=== PATIENT | female | born 1940 | race Caucasian/White ===

== ENCOUNTER 2018-01-29 10:49 | Emergency (ER) | payer OTHER ==
[2018-01-29] MEDS ORDERED: TETANUS & DIPHTHERIA TOX,ADULT 0.5 ML VIAL ONE (12:17)
--- NOTE | 2018-01-29 12:33 | EDPHYS ---
Physician Documentation [facility] Name: Deedee Smith Age: 77 yrs Sex: Female : 1940 Arrival Date: 01/29/2018 Time: 10:52 Bed 26 Private MD: ED Physician Marcos Jones HPI: 01/29 12:15 This 77 yrs old Female presents to ER via Ambulatory with complaints of LEG pm1 INFECTION. 12:15 The patient presents with cellulitis of the lateral aspect of left calf. Description: pm1 The affected area is small. Onset: The symptoms/episode began/occurred 3 day(s) ago. Possible cause(s): scratch from dog claw. Associated signs and symptoms: Pertinent negatives: discharge, drainage, fever. Modifying factors: the symptoms are alleviated by nothing, the symptoms are aggravated by nothing. Patient reports no change in condition of wound. Not worse but not better. Has been applying triple antibiotic. Historical: - Allergies: 11:32 No Known Allergies; lk1 - PMHx: 11:32 None; lk1 - PSHx: 11:32 Hysterectomy; Knee surgery; Cholecystectomy; lk1 - Immunization history:: Adult Immunizations up to date. - Social history:: Smoking status: Patient/guardian denies using tobacco. ROS: 12:15 Constitutional: Negative for fever, chills, and weight loss, Eyes: Negative for injury, pm1 pain, redness, and discharge, ENT: Negative for injury, pain, and discharge, Neck: Negative for injury, pain, and swelling, Cardiovascular: Negative for chest pain, palpitations, and edema, Respiratory: Negative for shortness of breath, cough, wheezing, and pleuritic chest pain, Abdomen/GI: Negative for abdominal pain, nausea, vomiting, diarrhea, and constipation, Back: Negative for injury and pain, MS/Extremity: Negative for injury and deformity. 12:15 Skin: Positive for cellulitis, of the lateral aspect of left calf. Exam: 12:15 Constitutional: This is a well developed, well nourished patient who is awake, alert, pm1 and in no acute distress. Head/Face: Normocephalic, atraumatic. Cardiovascular: Regular rate and rhythm with a normal S1 and S2. No gallops, murmurs, or rubs. Normal PMI, no JVD. No pulse deficits. Respiratory: Lungs have equal breath sounds bilaterally, clear to auscultation and percussion. No rales, rhonchi or wheezes noted. No increased work of breathing, no retractions or nasal flaring. Back: No spinal tenderness. No costovertebral tenderness. Full range of motion. 12:15 Skin: cellulitis, that is mild, on the lateral aspect of left calf, with small 2 mm ulceration. no drainage present. Vital Signs: 11:33 BP 113 / 81; Pulse 63; Resp 14; Temp 97.4(TE); Weight 86.18 kg (R); Height 5 ft. 5 in. lk1 (165.10 cm) (R); Pain 3/10; 11:33 Body Mass Index 31.62 (86.18 kg, 165.10 cm) lk1 MDM: 11:54 Patient medically screened. pm1 12:22 Data reviewed: vital signs. pm1 12:30 Counseling: I had a detailed discussion with the patient and/or guardian regarding: the pm1 historical points, exam findings, and any diagnostic results supporting the discharge/admit diagnosis, the need for outpatient follow up, to return to the emergency department if symptoms worsen or persist or if there are any questions or concerns that arise at home. Administered Medications: 12:26 Not Given (Patient had tetanus shot one year ago): Tetanus-Diphtheria Toxoid Adult 0.5 aj1 ml IM once Disposition: 01/30 06:17 Co-signature as Attending Physician, Marcos Jones MD. Disposition: 01/29/18 12:32 Discharged to Home. Impression: Cellulitis of left lower limb. - Condition is Stable. - Discharge Instructions: Cellulitis. - Prescriptions for Doxycycline Hyclate 100 mg Oral Tablet - take 1 tablet by ORAL route every 12 hours; 20 tablet. - Medication Reconciliation Form, Thank You Letter, Antibiotic Education form. - Follow up: Emergency Department; When: As needed; Reason: Worsening of condition. Follow up: Private Physician; When: 2 - 3 days; Reason: Recheck today's complaints, Continuance of care, Re-evaluation by your physician. - Problem is new. - Symptoms have improved. Signatures: Nunu Richter RN RN aa5 Maria Del Carmen Velez RN RN lk1 Kar Mario, TITI MANAGER LSW pm1 Marcos Jones MD MD gs Johnson, Angela RN aj1 Corrections: (The following items were deleted from the chart) 01/29 12:39 12:32 01/29/2018 12:32 Discharged to Home. Impression: Cellulitis of left lower limb. aa5 Condition is Stable. Forms are Medication Reconciliation Form, Thank You Letter, Antibiotic Education, Prescription Opioid Use. Follow up: Emergency Department; When: As needed; Reason: Worsening of condition. Follow up: Private Physician; When: 2 - 3 days; Reason: Recheck today's complaints, Continuance of care, Re-evaluation by your physician. Problem is new. Symptoms have improved. pm1
--- NOTE | 2018-01-29 12:33 | ER ---
Nurse's Notes [facility] Name: Deedee Smith Age: 77 yrs Sex: Female : 1940 Arrival Date: 01/29/2018 Time: 10:52 Bed 26 Private MD: Diagnosis: Cellulitis of left lower limb Presentation: 01/29 11:30 Presenting complaint: Patient states: I have a sore on my leg. I have been putting lk1 antibiotic ointment on it for several days, but it is getting worse. Transition of care: patient was not received from another setting of care. Onset of symptoms was January 26, 2018. Initial Sepsis Screen: Does the patient meet any 2 criteria? No. Patient's initial sepsis screen is negative. Does the patient have a suspected source of infection? Yes: Skin breakdown/wound. Care prior to arrival: None. 11:30 Method Of Arrival: Ambulatory lk1 11:30 Acuity: SHAMEKA 3 lk1 Triage Assessment: 11:32 General: Appears in no apparent distress. Behavior is calm, cooperative, appropriate lk1 for age. Pain: Complains of pain in lateral aspect of left calf Pain currently is 3 out of 10 on a pain scale. Derm: Abscess located on lateral aspect of left calf is dime sized, has purulent drainage, is hot to touch, is red, is raised. 11:36 Cardiovascular: Capillary refill is brisk Thorax Pulses are palpable in right radial lk1 artery and left radial artery irregular pulse on palpation, no history per patient. Historical: - Allergies: 11:32 No Known Allergies; lk1 - PMHx: 11:32 None; lk1 - PSHx: 11:32 Hysterectomy; Knee surgery; Cholecystectomy; lk1 - Immunization history:: Adult Immunizations up to date. - Social history:: Smoking status: Patient/guardian denies using tobacco. Screenin:26 Abuse screen: Denies threats or abuse. Denies injuries from another. Nutritional aj1 screening: No deficits noted. Tuberculosis screening: No symptoms or risk factors identified. Assessment: 12:26 General: Appears in no apparent distress. comfortable, Behavior is calm, cooperative, aj1 appropriate for age. Pain: Complains of pain in lateral aspect of left calf. Neuro: Level of Consciousness is awake, alert, obeys commands, Oriented to person, place, time, situation, Speech is normal, Facial symmetry appears normal. Cardiovascular: Patient's skin is warm and dry. Respiratory: Airway is patent Respiratory effort is even, unlabored, Respiratory pattern is regular, symmetrical. GI: No signs and/or symptoms were reported involving the gastrointestinal system. : No signs and/or symptoms were reported regarding the genitourinary system. EENT: No signs and/or symptoms were reported regarding the EENT system. Derm: Abscess located on lateral aspect of left calf is dime sized, is red. Musculoskeletal: No signs and/or symptoms reported regarding the musculoskeletal system. Circulation, motion, and sensation intact. 12:27 Reassessment: Patient states that she had a tetanus shot one year ago. Notified PYogesh Mario NP. Tetanus shot not administered since patient is up to date. 12:37 Reassessment: Patient is alert, oriented x 3, equal unlabored respirations, skin aa5 warm/dry/pink. Vital Signs: 11:33 BP 113 / 81; Pulse 63; Resp 14; Temp 97.4(TE); Weight 86.18 kg (R); Height 5 ft. 5 in. lk1 (165.10 cm) (R); Pain 3/10; 11:33 Body Mass Index 31.62 (86.18 kg, 165.10 cm) lk1 ED Course: 10:52 Patient arrived in ED. sb2 11:32 Triage completed. lk1 11:37 Arm band placed on right wrist. lk1 11:51 Rosamaria Meza, SELIN is Primary Nurse. aj1 11:53 Kar Mario NP is PHCP. pm1 11:53 Marcos Jones MD is Attending Physician. pm1 12:26 Patient has correct armband on for positive identification. Bed in low position. Call aj1 light in reach. Side rails up X 1. 12:26 No provider procedures requiring assistance completed. aj1 12:37 Patient did not have IV access during this emergency room visit. aa5 Administered Medications: 12:26 Not Given (Patient had tetanus shot one year ago): Tetanus-Diphtheria Toxoid Adult 0.5 aj1 ml IM once Outcome: 12:32 Discharge ordered by . pm1 12:37 Discharged to home ambulatory. aa5 12:37 Condition: good 12:37 Discharge instructions given to patient, Instructed on discharge instructions, follow up and referral plans. medication usage, Demonstrated understanding of instructions, follow-up care, medications, Prescriptions given X 1. 12:39 Patient left the ED. aa5 Signatures: Rosamaria Meza RN RN aj1 Nunu Richter RN RN aa5 Maria Del Carmen Velez RN RN lk1 Kar Mario, TITI PRE K SPECIAL EDUCATION TEACHER pm1 Berenice Su sb2 Corrections: (The following items were deleted from the chart) 11:37 11:30 Acuity: SHAMEKA 4 lk1 lk1
== END 2018-01-29 12:39 | disposition home or self-care (01) ==
LOC: ER 10:49
DX: L03.116 Cellulitis of left lower limb (principal)
CPT/HCPCS: 90714; 99282

== ENCOUNTER 2019-11-21 09:50 | Observation (INO) | payer OTHER ==
--- OUTSIDE RECORDS SUMMARY | 2019-11-21 09:52 | XMS REPORT ---
:1940 [facility] Address [address] [place] [address] Dr. Bynum [address] [place] [id number] Care Team Providers Name Role Phone Unavailable Unavailable Unavailable Problems This patient has no known problems. Allergies, Adverse Reactions, Alerts This patient has no known allergies or adverse reactions. Medications This patient has no known medications.
[2019-11-21 10:08] LABS: Absolute Lymphocytes (CBC) 2.1 K/uL (0.7-4.9); Basophils % 1.4 % (0-1.3); Hematocrit 43.3 % (36.0-45.0); Lymphocytes % 28.6 % (15.3-44.8); MPV 8.5 fL (7.6-11.3); RBC Red Blood Cell Count 4.68 M/uL (3.86-4.86)
[2019-11-21 10:11] LABS: Protime INR 0.93
[2019-11-21 10:19] LABS: Potassium 4.2 mmol/L (3.5-5.1)
--- NOTE | 2019-11-21 10:21 | RAD REPORT ---
EXAM DESCRIPTION: CT - Ct Stroke Brain Wo Cont - 11/21/2019 10:05 am CLINICAL HISTORY: SLURRED SPEECH Headache, drowsiness, CVA symptomology COMPARISON: No comparisons TECHNIQUE: All CT scans are performed using dose optimization technique as appropriate and may inclu de automated exposure control or mA/KV adjustment according to patient size. FINDINGS: No intracranial hemorrhage, hydrocephalus or extra-axial fluid collection.Moderate general ized brain atrophy is present with moderate periventricular and deep white matter chronic microvascul ar ischemic changes.No areas of brain edema or evidence of midline shift. The paranasal sinuses and mastoids are clear. The calvarium is intact. IMPRESSION: No acute intracranial abnormality. If there is continued clinical concern for CVA, MR i maging of the brain would be recommended. The findings were discussed with Dr. Chin On 11/21/2019 at 10:09 a.m. by telephone.
--- NOTE | 2019-11-21 10:52 | RAD REPORT ---
EXAM DESCRIPTION: RAD - Chest Single View - 11/21/2019 10:46 am CLINICAL HISTORY: stroke workup Chest pain. COMPARISON: Chest Pa And Lat (2 Views) dated 01/18/2016; CHEST PA AND LAT 2 VIEW dated 02/20/2010; CHEST SINGLE VIEW dated 11/01/2006 FINDINGS: Portable technique limits examination quality. The lungs are grossly clear. The heart is upper limit of normal in size. No displaced fractures. IMPRESSION: No acute intrathoracic process suspected.
--- NOTE | 2019-11-21 11:21 | ER ---
Nurse's Notes [facility] Name: Deedee Smith Age: 79 yrs Sex: Female : 1940 Arrival Date: 11/21/2019 Time: 09:54 Bed 2 Private MD: Diagnosis: Facial weakness;Slurred speech;Possible CVA Presentation: 11/20 09:55 Chief complaint: EMS states: called out for slurred speech by neighbor, pt reports em dizziness and headache when she woke up at 0730, neighbor called EMS 25-35 min ago, BGL 170 on scene. Coronavirus screen: The patient has NOT traveled to a country currently being monitored by the [facility] within the last 14 days. The patient has NOT had contact with any known and/or suspected case of coronavirus. Ebola Screen: Patient negative for fever greater than or equal to 101.5 degrees Fahrenheit, and additional compatible Ebola Virus Disease symptoms Patient denies exposure to infectious person. Patient denies travel to an Ebola-affected area in the 21 days before illness onset. No symptoms or risks identified at this time. No acute neurological deficit is noted. The patients blood glucose was checked prior to arriving to the hospital and was found to be hyperglycemic. The patient has been moved to a treatment room. Initial Sepsis Screen: Does the patient meet any 2 criteria? No. Patient's initial sepsis screen is negative. Does the patient have a suspected source of infection? No. Patient's initial sepsis screen is negative. Risk Assessment: Do you want to hurt yourself or someone else? Patient reports no desire to harm self or others. 09:55 Method Of Arrival: EMS: [facility] em 09:55 Acuity: SHAMEKA 2 em Triage Assessment: 10:00 The onset of the patients symptoms was November 21, 2019 at 07:15. em Stroke Activation: Symptom onset < 3 hours Physician: Stroke Attending; Name: ; Notified At: ; Arrived At: Physician: Chief Stroke Resident; Name: ; Notified At: ; Arrived At: Physician: Stroke Resident; Name: ; Notified At: ; Arrived At: Physician: ED Attending; Name: Dr Montemayor; Notified At: 10:00; Arrived At: 09:48 Physician: ED Resident; Name: ; Notified At: ; Arrived At: Historical: - Allergies: 10:00 No Known Allergies; em - PMHx: 10:00 Hypertension; Diabetes - IDDM; em - PSHx: 10:00 Hysterectomy; Knee surgery; Cholecystectomy; em - Immunization history:: Adult Immunizations up to date. - Social history:: Smoking status: Patient denies any tobacco usage or history of. - Family history:: not pertinent. - Hospitalizations: : No recent hospitalization is reported. Screenin:13 Abuse screen: Denies threats or abuse. Denies injuries from another. Nutritional sv screening: No deficits noted. Tuberculosis screening: No symptoms or risk factors identified. Fall Risk None identified. Assessment: 09:48 Reassessment: Dr Montemayor at the bedside. sv 10:00 VAN Scoring: Arm Drift: Patients demonstrates NO arm weakness. Patient is VAN Negative. em 10:00 General: Appears in no apparent distress. comfortable, Behavior is calm, cooperative, em Denies fever. Pain: Denies pain. Neuro: Level of Consciousness is awake, alert, obeys commands, Oriented to person, place, time, situation, Appropriate for age Resource Center Teacher are equal bilaterally Moves all extremities. Speech is slurred, Facial droop on right, Intact Reports dizziness, Denies blurred vision. Cardiovascular: Capillary refill < 3 seconds Patient's skin is warm and dry. Respiratory: Airway is patent Respiratory effort is even, unlabored, Respiratory pattern is regular, symmetrical. GI: Patient currently denies nausea, vomiting. Derm: Skin is intact, is healthy with good turgor, Skin is pink, warm \T\ dry. Musculoskeletal: Capillary refill < 3 seconds, Range of motion: intact in all extremities. 10:01 Reassessment: Pt to CT via stretcher with Davin SMALLWOOD. sv 10:09 Reassessment: Pt back from CT. sv 10:10 T-PA (Activase) Screening: Contraindications: Other: pt reports waiting up at [id number] em with s/s of dizziness and headache, unknown if s/s started wile pt was sleeping. 10:14 Patient has been NPO before screening. The patient is alert, and able to follow sv commands. The patient does not exhibit slurred or garbled speech. The patient is not exhibiting difficulty speaking. The patient does not exhibit difficulty understanding words. The patient is able to swallow own secretions with no drooling or need for suction. Patient tolerated one teaspoon of water. No drooling, immediate coughing, gurgling, or clearing of the throat was noted. The patient tolerated 90mL of water. No drooling, immediate coughing, gurgling, or clearing of the throat was noted. The patient passed the bedside swallow screening. Oral medications may be given as ordered. Contact Physician for further diet orders. Provider notified of bedside swallow screening results: Barry Montemayor MD. 11:00 Reassessment: Patient appears in no apparent distress at this time. Patient and/or em family updated on plan of care and expected duration. Pain level reassessed. Patient is alert, oriented x 3, equal unlabored respirations, skin warm/dry/pink. pending MRI. 11:27 Reassessment: Patient appears in no apparent distress at this time. wheeled to MRI via em stretcher. 13:00 Reassessment: Patient appears in no apparent distress at this time. Patient and/or em family updated on plan of care and expected duration. Pain level reassessed. Patient is alert, oriented x 3, equal unlabored respirations, skin warm/dry/pink. speech clear and droop has improved Patient states symptoms have improved. 13:26 Reassessment: Patient appears in no apparent distress at this time. US at bedside doing em carotid US. 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 sv Blood collected. Flushed right antecubital with 5 ml normal saline. 09:54 Patient arrived in ED. sv 09:55 Davin Teresa, RN is Primary Nurse. em 09:55 Arm band placed on Patient placed in an exam room, on a stretcher, on pulse oximetry. sv 09:55 Patient has correct armband on for positive identification. Placed in gown. Bed in low sv position. Call light in reach. Side rails up X2. monitor worker on. Pulse ox on. NIBP on. Head of bed elevated. 09:58 Triage completed. em 10:00 Barry Montemayor MD is Attending Physician. rn 10:06 CT Stroke Brain w/o Contrast In Process Unspecified. EDMS 10:38 X-ray(s) taken. sv 10:44 Stroke CXR 1 View In Process Unspecified. EDMS 11:19 Michael Kauffman MD is Hospitalizing Provider. rn 13:06 Diet: Patient given snack. Patient given juice. jp3 13:19 No provider procedures requiring assistance completed. Patient admitted, IV remains in em place. Administered Medications: 11:25 Drug: PlaVIX 75 mg Route: PO; em 13:27 Follow up: Response: No adverse reaction em 13:19 Drug: NS 0.9% 500 ml Route: IV; Rate: bolus; Site: right antecubital; em 13:48 Follow up: IV Status: Completed infusion; IV Intake: 500ml em 13:19 Drug: foLIC Acid 1 mg Route: PO; em 13:32 Follow up: Response: No adverse reaction em Point of Care Testing: Blood Glucose: 09:49 Blood Glucose: 152 mg/dL; sv Ranges: Intake: 13:48 IV: 500ml; Total: 500ml. em Outcome: 11:20 Decision to Hospitalize by Provider. rn 13:19 Admitted to Tele accompanied by tech, via stretcher, room 405, with chart, Report em called to SELIN Timmons 13:19 Condition: good 13:19 Instructed on the need for admit, Demonstrated understanding of instructions. 13:49 Patient left the ED. em NIH Stroke Scale - NIH Stroke Score Date: 11/21/2019 Time: 10:00 Total Score = 2 1a. Level of Consciousness (LOC) - 0(Alert) 1b. Level of Consciousness (LOC) (Year \T\ Age) - 0(Both) 1c. LOC Commands (Open \T\ Closes Eyes/Tube Roller) - 0(Both) 2. Best Gaze (Lateral Gaze Paresis) - 0(Normal) 3. Visual Field Loss - 0(No visual loss) 4. Facial Palsy - 1(Minor Paralysis) 5a. Left Arm: Motor (10-second hold) - 0(No drift) 5b. Right Arm: Motor (10-second hold) - 0(No drift) 6a. Left Leg: Motor (5-second hold - always test supine) - 0(No drift) 6b. Right Leg: Motor (5-second hold - always test supine) - 0(No drift) 7. Limb Ataxia (finger/nose \T\ heel/brady - test with eyes open) - 0(Absent) 8. Sensory Loss (pinprick arms/legs/face) - 0(Normal) 9. Best Language: Aphasia (description/naming/reading) - 0(No aphasia) 10. Dysarthria (speech clarity - read or repeat words) - 1(Mild to Moderate) 11. Extinction and Inattention (visual/tactile/auditory/spatial/personal) - 0(No abnormality) Initials: NIH Stroke Scale - NIH Stroke Score Date: 11/21/2019 Time: 10:32 Total Score = 2 1a. Level of Consciousness (LOC) - 0(Alert) 1b. Level of Consciousness (LOC) (Year \T\ Age) - 0(Both) 1c. LOC Commands (Open \T\ Closes Eyes/Tube Roller) - 0(Both) 2. Best Gaze (Lateral Gaze Paresis) - 0(Normal) 3. Visual Field Loss - 0(No visual loss) 4. Facial Palsy - 1(Minor Paralysis) 5a. Left Arm: Motor (10-second hold) - 0(No drift) 5b. Right Arm: Motor (10-second hold) - 0(No drift) 6a. Left Leg: Motor (5-second hold - always test supine) - 0(No drift) 6b. Right Leg: Motor (5-second hold - always test supine) - 0(No drift) 7. Limb Ataxia (finger/nose \T\ heel/brady - test with eyes open) - 0(Absent) 8. Sensory Loss (pinprick arms/legs/face) - 0(Normal) 9. Best Language: Aphasia (description/naming/reading) - 0(No aphasia) 10. Dysarthria (speech clarity - read or repeat words) - 1(Mild to Moderate) 11. Extinction and Inattention (visual/tactile/auditory/spatial/personal) - 0(No abnormality) Initials: rn Signatures: Dispatcher [employer] Daija Castellon, Davin White RN RN RN Barry Srinivasan MD MD rn Pisarski, Jacob jp3
--- NOTE | 2019-11-21 11:22 | EDPHYS ---
Physician Documentation [facility] Name: Deedee Smith Age: 79 yrs Sex: Female : 1940 Arrival Date: 11/21/2019 Time: 09:54 Bed 2 Private MD: ED Physician Barry Montemayor HPI: 11/20 10:00 This 79 yrs old Female presents to ER via EMS with complaints of Slurred rn Speech. 10:00 Pt states woke up today around 0730, went to walk her dogs and realized something rn wasn't right. can't quite tell me if happened shortly after getting out of bed a little later. Initially told me noticed something was wrong jose luis few minutes after getting out of bed as she walked to [facility], but then she says she really isn't sure. went to bed fine. neighbor called her and spoke to her 45 min ago and noticed slurred speech. . No hx of stroke, no recent head injury.. Historical: - Allergies: 10:00 No Known Allergies; em - PMHx: 10:00 Hypertension; Diabetes - IDDM; em - PSHx: 10:00 Hysterectomy; Knee surgery; Cholecystectomy; em - Immunization history:: Adult Immunizations up to date. - Social history:: Smoking status: Patient denies any tobacco usage or history of. - Family history:: not pertinent. - Hospitalizations: : No recent hospitalization is reported. ROS: 10:00 Constitutional: Negative for fever, chills, and weight loss, Eyes: Negative for injury, rn pain, redness, and discharge, Neck: Negative for injury, pain, and swelling, Cardiovascular: Negative for chest pain, palpitations, and edema, Respiratory: Negative for shortness of breath, cough, wheezing, and pleuritic chest pain, Abdomen/GI: Negative for abdominal pain, nausea, vomiting, diarrhea, and constipation, MS/Extremity: Negative for injury and deformity, Skin: Negative for injury, rash, and discoloration, Neuro: + headache and dizziness, + slurred speech Exam: 10:00 Constitutional: This is a well developed, well nourished patient who is awake, alert, rn and in no acute distress. Head/Face: Normocephalic, atraumatic. Eyes: Pupils equal round and reactive to light, extra-ocular motions intact. Lids and lashes normal. Conjunctiva and sclera are non-icteric and not injected. Cornea within normal limits. Periorbital areas with no swelling, redness, or edema. ENT: MMM Cardiovascular: Regular rate and rhythm. No pulse deficits. Respiratory: No increased work of breathing, no retractions or nasal flaring. Abdomen/GI: soft, non-tender MS/ Extremity: Pulses equal, no cyanosis. Neurovascular intact. Full, normal range of motion. Equal circumference. Neuro: Awake and alert, GCS 15, oriented to person, place, time, and situation. + right lower facial droop with forehead sparing. + slurred speech. Motor strength 5/5 in all extremities. Sensory grossly intact. Cerebellar exam normal. Vital Signs: 09:55 BP 160 / 97; Pulse 73; Resp 18; Temp 97.5; Pulse Ox 98% on R/A; em 11:00 BP 147 / 89; Pulse 87; Resp 19 S; Pulse Ox 97% on R/A; Pain 0/10; em 12:30 em 13:12 BP 152 / 84; Pulse 79; Resp 18; Pulse Ox 99% on R/A; em 12:30 currently in MRI em NIH Stroke Scale Scores: 10:00 NIHSS Score: 2 em 10:32 NIHSS Score: 2 rn MDM: 10:00 Patient medically screened. rn 10:31 ED course: Spoke again with patient, cannot pinpoint exact onset, patient states again rn became aware of symptoms shortly after waking up, did not call friend until later, and friend states this speech not normal for her. Unable to give TPA due to unclear onset. Patient aware of importance of timing and explained all of this to patient and friend. . 11:18 Data reviewed: vital signs, nurses notes, lab test result(s), EKG, radiologic studies, rn CT scan, and as a result, I will admit patient. Counseling: I had a detailed discussion with the patient and/or guardian regarding: the historical points, exam findings, and any diagnostic results supporting the discharge/admit diagnosis, lab results, radiology results, the need for further work-up and treatment in the hospital. Response to treatment: There is no appreciated change of the patient's symptoms at this time, and as a result, I will admit patient. Admission orders: after a detailed discussion of the patient's condition and case, the admit orders are written by me. ED course: Pt with signs and symptoms of CVA, no acute findings on CT head, cannot give TPA given no clear onset and last definitive known normal last night. Will admit for stroke w/u to Dr. Kauffman, with Dr. Hudson consult. . 12:18 ED course: Consulted with Dr. Hudson, will see patient, spoke with Dr. Kauffman who is rn aware of admission.. 13:01 ED course: Symptoms improved, nearly resolved once got back from MRI, MRI stroke rn protocol neg for acute stroke, most likely TIA. . 11/20 09:56 Order name: Basic Metabolic Panel; Complete Time: 10:30 sv 11/20 09:56 Order name: CBC with Diff; Complete Time: 10:30 sv 11/20 09:56 Order name: Protime (+inr); Complete Time: 10:30 sv 11/20 09:56 Order name: Ptt, Activated; Complete Time: 10:30 sv 11/20 09:56 Order name: CT Stroke Brain w/o Contrast; Complete Time: 11:17 sv 11/20 13:44 Order name: Lipid Profile EDMS 11/20 09:56 Order name: Stroke CXR 1 View; Complete Time: 11:17 sv 11/20 10:33 Order name: MRA Head Wo Cont; Complete Time: 13:14 EDMS 11/20 10:33 Order name: Brain W/Wo Cont; Complete Time: 13:14 EDMS 11/20 10:33 Order name: MRA Neck W/Wo Cont; Complete Time: 13:14 EDMS 11/20 09:56 Order name: EKG; Complete Time: 09:57 sv 11/20 09:56 Order name: Accucheck; Complete Time: 09:56 sv 11/20 09:56 Order name: Cardiac monitoring; Complete Time: 10:09 sv 11/20 09:56 Order name: EKG - Nurse/Tech; Complete Time: 09:56 sv 11/20 09:56 Order name: IV Saline Lock; Complete Time: 09:56 sv 11/20 09:56 Order name: Labs collected and sent; Complete Time: 09:57 sv 11/20 09:56 Order name: NPO; Complete Time: 09:57 sv 11/20 09:56 Order name: O2 Per Protocol; Complete Time: 09:57 sv 11/20 09:56 Order name: O2 Sat Monitoring; Complete Time: 09:57 sv 11/20 09:56 Order name: Stroke Swallow Screen; Complete Time: 10:13 sv Administered Medications: 11:25 Drug: PlaVIX 75 mg Route: PO; em 13:27 Follow up: Response: No adverse reaction em 13:19 Drug: NS 0.9% 500 ml Route: IV; Rate: bolus; Site: right antecubital; em 13:48 Follow up: IV Status: Completed infusion; IV Intake: 500ml em 13:19 Drug: foLIC Acid 1 mg Route: PO; em 13:32 Follow up: Response: No adverse reaction em Point of Care Testing: Blood Glucose: 09:49 Blood Glucose: 152 mg/dL; sv Ranges: Critical Glucose Levels:Adult <50 mg/dl or >400 mg/dl <40 mg/dl or >180 mg/dl Disposition: 11/21/19 11:20 Hospitalization ordered by Michael Kauffman for Inpatient Admission. Preliminary diagnosis are Facial weakness, Slurred speech, Possible CVA. - Bed requested for Telemetry/MedSurg (Inpatient). - Status is Inpatient Admission. em - Condition is Stable. - Problem is new. - Symptoms are unchanged. NIH Stroke Scale - NIH Stroke Score Date: 11/21/2019 Time: 10:00 Total Score = 2 1a. Level of Consciousness (LOC) - 0(Alert) 1b. Level of Consciousness (LOC) (Year \T\ Age) - 0(Both) 1c. LOC Commands (Open \T\ Closes Eyes/[employer] [place]) - 0(Both) 2. Best Gaze (Lateral Gaze Paresis) - 0(Normal) 3. Visual Field Loss - 0(No visual loss) 4. Facial Palsy - 1(Minor Paralysis) 5a. Left Arm: Motor (10-second hold) - 0(No drift) 5b. Right Arm: Motor (10-second hold) - 0(No drift) 6a. Left Leg: Motor (5-second hold - always test supine) - 0(No drift) 6b. Right Leg: Motor (5-second hold - always test supine) - 0(No drift) 7. Limb Ataxia (finger/nose \T\ heel/brady - test with eyes open) - 0(Absent) 8. Sensory Loss (pinprick arms/legs/face) - 0(Normal) 9. Best Language: Aphasia (description/naming/reading) - 0(No aphasia) 10. Dysarthria (speech clarity - read or repeat words) - 1(Mild to Moderate) 11. Extinction and Inattention (visual/tactile/auditory/spatial/personal) - 0(No abnormality) Initials: leitcia NIH Stroke Scale - NIH Stroke Score Date: 11/21/2019 Time: 10:32 Total Score = 2 1a. Level of Consciousness (LOC) - 0(Alert) 1b. Level of Consciousness (LOC) (Year \T\ Age) - 0(Both) 1c. LOC Commands (Open \T\ Closes Eyes/President [place]) - 0(Both) 2. Best Gaze (Lateral Gaze Paresis) - 0(Normal) 3. Visual Field Loss - 0(No visual loss) 4. Facial Palsy - 1(Minor Paralysis) 5a. Left Arm: Motor (10-second hold) - 0(No drift) 5b. Right Arm: Motor (10-second hold) - 0(No drift) 6a. Left Leg: Motor (5-second hold - always test supine) - 0(No drift) 6b. Right Leg: Motor (5-second hold - always test supine) - 0(No drift) 7. Limb Ataxia (finger/nose \T\ heel/brady - test with eyes open) - 0(Absent) 8. Sensory Loss (pinprick arms/legs/face) - 0(Normal) 9. Best Language: Aphasia (description/naming/reading) - 0(No aphasia) 10. Dysarthria (speech clarity - read or repeat words) - 1(Mild to Moderate) 11. Extinction and Inattention (visual/tactile/auditory/spatial/personal) - 0(No abnormality) Initials: rn Signatures: Dispatcher [employer] [facility] Izzy Ivy Stephanie, RN RN sv Munoz, Edgar, RN RN em Nieto, Roman, MD MD healthcare administration intern: (The following items were deleted from the chart) 10:33 10:31 MR STROKE PROTOCOL+MRI.RAD.BRZ ordered. [facility] 11:35 11:20 Hospitalization Ordered by A Jamari RAMIREZ for Inpatient Admission. Preliminary bd diagnosis is Facial weakness; Slurred speech; Possible CVA. Bed requested for Telemetry/MedSurg (Inpatient). Status is Inpatient Admission. Condition is Stable. Problem is new. Symptoms are unchanged. rn 11:44 11:35 11/21/2019 11:20 Hospitalization Ordered by A Jamari RAMIREZ for Inpatient bd Admission. Preliminary diagnosis is Facial weakness; Slurred speech; Possible CVA. Bed requested for Telemetry/MedSurg (Inpatient). Status is Inpatient Admission. Condition is Stable. Problem is new. Symptoms are unchanged. bd 13:49 11:44 11/21/2019 11:20 Hospitalization Ordered by A Jamari RAMIREZ for Inpatient em Admission. Preliminary diagnosis is Facial weakness; Slurred speech; Possible CVA. Bed requested for Telemetry/MedSurg (Inpatient). Status is Inpatient Admission. Condition is Stable. Problem is new. Symptoms are unchanged. bd
[2019-11-21] MEDS ORDERED: CLOPIDOGREL 75 MG TABLET ONE (11:29)
[2019-11-21] MEDS ORDERED: NA CHLORIDE 0.9% 500 ML ONE (11:29)
[2019-11-21] MEDS ORDERED: FOLIC ACID 1 MG TABLET ONE ×2 (12:40→13:22)
--- NOTE | 2019-11-21 12:46 | RAD REPORT ---
EXAM DESCRIPTION: MRI - Brain W/Wo Cont - 11/21/2019 12:28 pm CLINICAL HISTORY: Slurred speech COMPARISON: November 21, 2019 cat scan TECHNIQUE: Axial, sagittal, and coronal magnetic images of the brain were obtained. 20 cc MultiHance administered intravenously FINDINGS: Mild to moderate signal within periventricular, deep and subcortical white matter probably ischemic changes secondary to small vessel disease The ventricles are normal in caliber. Diffusion-weighted/ ADC mapping sequences do not demonstrate evidence of an acute infarction. No abnormal enhancement within the brain is seen. An extra-axial fluid collection is not noted. Fluid within the sinuses/mastoids is not seen IMPRESSION: No acute abnormality displayed
--- NOTE | 2019-11-21 12:52 | RAD REPORT ---
EXAM DESCRIPTION: MRI - MRA Neck W/Wo Cont - 11/21/2019 12:28 pm CLINICAL HISTORY: Slurred speech COMPARISON: None. TECHNIQUE: Magnetic resonance angiogram of the neck was performed. 20 cc MultiHance was administered intravenously. 3D MIPS reconstruction performed FINDINGS: Mild plaque is present within common carotid, internal carotid and external carotid arteri es. An aneurysm is not seen. The vertebral arteries are codominant without visualization of an abnormality. IMPRESSION: Mild plaque within the carotid arteries NASCET criteria used. Mild 0-49% stenosis Moderate 50-69% stenosis Severe 70-99% stenosis
--- NOTE | 2019-11-21 12:59 | RAD REPORT ---
EXAM DESCRIPTION: MRI - MRA Head Wo Cont - 11/21/2019 12:28 pm CLINICAL HISTORY: Slurred speech COMPARISON: None. TECHNIQUE: Magnetic resonance angiogram was performed. 3D MIPS reconstruction performed FINDINGS: origin right posterior cerebral artery. The A1 segment of the right anterior cerebral artery is hypoplastic The the remainder of the anterior cerebral, middle cerebral, posterior cerebral, distal internal galan tid and basilar arteries do not demonstrate a significant stenosis. An aneurysm is not displayed. IMPRESSION: No significant abnormality displayed
[2019-11-21] MEDS ORDERED: ONDANSETRON 4 MG/2 ML VIAL IV PRN (13:09)
[2019-11-21] MEDS: INSULIN -REGULAR HUMAN 50 UNIT/0.5 ML ML SQ SCH ×4 (13:09→21:00)
[2019-11-21 13:58] VITALS: BMI 31.6
--- NOTE | 2019-11-21 14:01 | RAD REPORT ---
EXAM DESCRIPTION: US - CP - 11/21/2019 1:49 pm CLINICAL HISTORY: slurred speech, facial droop Headache, drowsiness, CVA symptomology COMPARISON: MRA Neck W/Wo Cont dated 11/21/2019 TECHNIQUE: Real-time sonographic evaluation of both carotid systems was performed. Doppler interroga tion was performed with waveform tracing bilaterally. FINDINGS: Normal high resistance waveforms are noted in both external carotid arteries. The common c arotid arteries and internal carotid arteries show normal low resistance waveforms. Mild hard plaque is seen in both carotid bulbs. Peak systolic and end diastolic velocity values and t he ICA/CCA ratios are in the non-hemodynamically significant range. Antegrade flow seen in both vertebral arteries. IMPRESSION: Mild hard plaque is seen in both carotid bulbs. No evidence of a hemodynamically significant stenosis.
[2019-11-21] MEDS: NA CHLORIDE 0.9% 1,000 ML IV SCH (14:20)
[2019-11-21] MEDS ORDERED: GLUCAGON 1 MG/VIAL IM PRN (16:26)
[2019-11-21] MEDS ORDERED: D50W 25 GM/50 ML SYRINGE IV PRN (16:26)
[2019-11-21] MEDS ORDERED: ATORVASTATIN 80 MG TAB PO SCH (21:00)
[2019-11-22] MEDS: NA CHLORIDE 0.9% 1,000 ML IV SCH (02:47)
--- NOTE | 2019-11-22 04:15 | HP ---
Date of Admission: 11/21/2019 Chief Complaint: Headache, dizziness and slurred speech. History Of Present Illness: This is a 79-year-old female patient who came into the emergency room th is morning with complaints of headache, dizziness, and slurred speech. Denies any tingling, numbness of hands or legs. No weakness of extremities. Symptoms started as best as we understand probably a s of this morning since she woke up. By the time I saw her this evening, all of her symptoms has justina ost completely resolved. Her slurred speech has resolved. Workup done in the emergency room so far has remained negative for stroke. Allergies: NO KNOWN ALLERGIES. Medications: List reviewed and according to office list, 1.Aspirin 81 mg daily. 2.Metformin 500 mg 2 times a day. 3.Metoprolol 25 mg 2 times a day. 4.Simvastatin 40 mg p.o. daily in evening. 5.Januvia 100 mg p.o. daily with breakfast. 6.Ranitidine 300 mg at bedtime. Now, I am not sure if she is taking all of those medications regularly as prescribed as she is not ke eping her appointment on a regular basis. Allergies: NO KNOWN ALLERGIES. 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 All other systems reviewed and negative. Past Medical History: Type 2 diabetes mellitus, hypertension, mixed hyperlipidemia, gastroesophageal reflux disease, psoriasis, osteoarthritis at multiple sites, osteopenia. Past Surgical History: Cataract surgery, hernia repair, cholecystectomy. Family History: Father had bladder cancer, COPD. Mother and had a problem with alcohol abuse. Sister alive and well. Social History: Negative for smoking. Use of alcohol, rarely has a glass of wine. Physical Examination: Vital Signs: Temperature 96.8, pulse 63, respiratory rate 16, blood pressure 126/77, oxygen saturati on 97%. Height 5 feet 5 inches, weight 190 pounds. General: Awake, alert, oriented, not in distress. HEENT: Head atraumatic, normocephalic. Conjunctivae nonerythematous. Sclerae white. Mouth, no thr ush or edema noted. Ears/Nose, no mass, lesion, discharge noted. Neck: Supple. No JVD, lymph nodes, bruit, thyromegaly noted. Lungs: Bilateral good equal air entry. Clear to auscultation. No rhonchi. No rales. Heart: Normal heart sounds, no murmur or gallop. Abdomen: Soft, bowel sounds normal. No guarding, rigidity, tenderness, mass, hepatosplenomegaly, dis tention, or bruit noted. Extremities: No leg edema. No calf tenderness. Skin: No rash, ulcer, cellulitis. Lymphatics: No lymph node enlargement in neck, supraclavicular, infraclavicular region. Neuro: No focal neurological deficit. Chest: Unremarkable. External Genitalia: Deferred. Rectal: Deferred. Laboratory Data: White count 7.2, hemoglobin 14.3, platelets 264. INR 0.93. Sodium 139, potassium 4.2, chloride 107, bicarb 27, BUN 12, creatinine 1.16, glucose 166, triglyceride 238, total cholester ol 192, LDL 91, HDL 50. Chest x-ray, no acute cardiopulmonary changes. CAT scan of the head negativ e for any acute intracranial changes. MRI of the brain, negative for stroke or any acute intracrania l changes. MRA of intracranial arteries and MRA of neck was negative except mild plaquing of bilater al carotids without any hemodynamically significant stenotic lesion. Carotid Doppler, mild plaquing of bilateral carotids without any hemodynamically significant stenotic lesions. Impression: 1.Transient ischemic attack. 2.Hypertension. 3.Mixed hyperlipidemia. 4.Type 2 diabetes mellitus. 5.Gastroesophageal reflux disease. 6.Osteopenia. 7.Osteoarthritis, multiple sites. Plan: Admit the patient to hospital for further evaluation and management of this problem. We have ruled out any presence of stroke. What the patient had was a TIA and we will go ahead and give anti- platelet therapy, high dose statin therapy. Continue home medications per order. We will go ahead a nd monitor diabetes with fingerstick blood sugar with sliding insulin scale and consult neurologist. I will see her tomorrow for followup. We will have Physical Therapy evaluate her. Depending on her condition, we will possibly consider to discharge her to go home tomorrow. Details and plan of ros ce discussed with her. GUSTAVO/MODL Voice ID: [id number]
[2019-11-22 04:53] LABS: Absolute Lymphocytes (CBC) 2.3 K/uL (0.7-4.9); Basophils % 1.2 % (0-1.3); Hematocrit 38.5 % (36.0-45.0); Lymphocytes % 29.8 % (15.3-44.8); MPV 8.6 fL (7.6-11.3); RBC Red Blood Cell Count 4.15 M/uL (3.86-4.86)
[2019-11-22 05:03] LABS: Albumin 3.4 g/dL (3.4-5.0); Bilirubin Total 0.4 mg/dL (0.2-1.0); Phosphorus 3.3 mg/dL (2.5-4.9); Protein, Total 6.2 g/dL (6.4-8.2)
[2019-11-22] MEDS: INSULIN -REGULAR HUMAN 50 UNIT/0.5 ML ML SQ SCH ×2 (07:30→11:30)
--- NOTE | 2019-11-22 07:47 | ECHO ---
HEIGHT: 5 ft 5 in WEIGHT: 190 lb 0 oz DATE OF STUDY: 11/21/[address]: Barry Montemayor JR, MD 2-DIMENSIONAL: YES M.MODE: YES DOPPLER: YES COLOR FLOW: YES TDS: NO PORTABLE: NO DEFINITY: NO BUBBLE STUDY: NO DIAGNOSIS: STROKE CARDIAC HISTORY: CATHERIZATION: NO SURGERY: NO PROSTHETIC VALVE: NO PACEMAKER: NO MEASUREMENTS (cm) DIASTOLIC (NORMALS) SYSTOLIC (NORMALS) IVSd 1.0 (0.6-1.2) LA Diam 2.9 (1.9-4.0) LVEF 63% LVIDd 4.8 (3.5-5.7) LVIDs 3.1 (2.0-3.5) %FS 34% LVPWd 1.1 (0.6-1.2) Ao Diam 2.8 (2.0-3.7) 2 DIMENSIONAL ASSESSMENT: RIGHT ATRIUM: NORMAL LEFT ATRIUM: NORMAL RIGHT VENTRICLE: NORMAL LEFT VENTRICLE: NORMAL TRICUSPID VALVE: NORMAL MITRAL VALVE: NORMAL PULMONIC VALVE: NORMAL AORTIC VALVE: NORMAL PERICARDIAL EFFUSION: NONE AORTIC ROOT: NORMAL LEFT VENTRICULAR WALL MOTION: NORMAL DOPPLER/COLOR FLOW: NORMAL COMMENTS: NORMAL 2D ECHOCARDIOGRAM WITH DOPPLER. TECHNOLOGIST: Macarena SMITH
--- NOTE | 2019-11-22 08:55 | EKG ---
Test Date: 2019-11-21 Test Time: 08:52:37 Infection Control Rn: DIEGO MEASUREMENT RESULTS: Intervals: Rate: 75 MO: 190 QRSD: 96 QT: 420 QTc: 469 Thatcher: P: 30 MO: 190 QRS: 1 T: 95 INTERPRETIVE STATEMENTS: Normal sinus rhythm Abnormal QRS-T angle, consider primary T wave abnormality Abnormal ECG Compared to ECG 01/18/2016 10:07:45 T-wave abnormality now present ST (T wave) deviation no longer present Electronically Signed On 11-22-19 08:53:07 CDT by Edmond March
[2019-11-22] MEDS ORDERED: CLOPIDOGREL 75 MG TABLET PO SCH (09:00)
[2019-11-22 09:14] VITALS: O2SAT 97
[2019-11-22 16:50] VITALS: BP 139/62; TEMP 98.1
--- NOTE | 2019-11-22 22:31 | CON ---
Reason For Consultation: Consultation called because of TIA. History Of Present Illness: Ms. Smith is a 79-year-old patient with hypertension and insulin-depen dent diabetes mellitus, who woke up this morning at around 7:30 and noted difficulty getting words ou t and had slurred speech along with possible left facial drooping. She spoke to the neighbor, who co nfirmed the slurred speech and she eventually made it to [facility] around 9:54 in the morni ng. She was evaluated in the emergency room, had a head CT scan, is unremarkable for any acute ische fabian or hemorrhagic change and she had an NIH Stroke Scale of 2. She was admitted for stroke workup. At home she was taking aspirin 81 mg x3 and she had Plavix added along with folic acid to her regime n. Blood work in the emergency room showed a normal complete blood count with differential, normal c oagulation panel, and chemistries essentially unremarkable with glucose elevated ranging 126 to 195, and hemoglobin A1c of 7.5. Liver function studies were unremarkable. Cholesterol panel showed total cholesterol of 192, LDL 91, HDL 53, triglycerides 238. Her symptoms resolved within about 8 or so h ours and she did receive some IV fluids in the emergency room prior to that. Subsequent brain MRI [facility] stroke protocol did rule out the presence of any acute ischemic or hemorrhagic stroke. Past Medical History: As indicated above. Allergies: NO KNOWN DRUG ALLERGIES. Medications: At home aspirin 81 mg taking 3 a day, metformin 500 mg twice daily, metoprolol 25 mg tw ice daily, simvastatin 40 mg at night, Januvia 100 mg daily, ranitidine 300 mg at bedtime. Family History: Noncontributory. Social History: Lives with . No alcohol, tobacco, or IV drug use. Review of Systems: No recent fevers, chills, nausea, vomiting, myalgias, arthralgias, headache, weight change, rash, psy chiatric complaints, or gastrointestinal issues. Physical Examination: Vital Signs: Blood pressure 139/62, pulse 82, respiratory rate 17, temperature 97.1, oxygen saturati on 98%. General: Ms. Smith is resting in bed. She is in no acute distress. HEENT: She is normocephalic, atraumatic. Sclerae anicteric. Oropharynx is moist and pink. Neck: Supple. Chest: Clear. Heart: Regular. Extremities: Show no edema, cyanosis, or clubbing. Neurological: She is alert and oriented to person, place, and situation. Follows all commands appro priately. Cranial nerves 2 through 12 show no focal deficits. Motor examination in the upper and lo wer extremities show no deficits in upper and lower extremities proximally and distally. Sensation i s stocking-glove loss to light touch and temperature in the arms and legs. Reflexes depressed in the upper and lower extremities. Coordination intact in the upper and lower extremities and she has goo d stance and stride for gait. Assessment: Ms. Smith is a 79-year-old patient with a transient ischemic attack in the setting of the aspirin monotherapy. She also is not very well hydrated. Plan: 1.Aspirin 81 mg. 2.Plavix 75 mg. 3.Lipitor 80 mg at bedtime. 4.Aggressive management of diabetes mellitus with goal of decreasing hemoglobin A1c to less than 6 i f possible. 5.After discharge, follow up with Dr. Hudson in clinic 1 month later. YAS/ADIEL Voice ID: [id number] Report ID: [id number]
--- NOTE | 2019-11-23 03:01 | DS ---
Date of Discharge: 11/22/2019 Disposition: Discharged to go home. Physical Examination: HEENT: Unremarkable. Lungs: Clear to auscultation. Heart: Heart sounds normal. Abdomen: Soft. Bowel sounds normal. No guarding, rigidity, tenderness, or distention. Extremities: No leg edema. Neuro: No focal neurological deficit. Laboratory Data: Today, white count 7.7, hemoglobin 13, platelets 250. Sodium 143, potassium 4, chl oride 111, bicarb 28, BUN 15, creatinine 1.06, glucose 134. Liver function tests unremarkable. Yest erday, triglyceride 238, total cholesterol 192, LDL 91, HDL 52. Hemoglobin A1c 7.5. Discharge Medications: Continue all prior home medication except following changes, 1.Stop simvastatin and start atorvastatin 80 mg 1 tablet daily at bedtime. 2.Take aspirin 81 mg 1 tablet by mouth daily. 3.Start clopidogrel 75 mg p.o. daily. 4.Take folic acid 1 mg p.o. daily. Follow up at my office next week and the patient to bring all her medication bottles with her at the time of appointment. 1.Follow up with Dr. Hudson. Final Diagnoses: 1.Transient ischemic attack. 2.Hypertension. 3.Mixed hyperlipidemia. 4.Type 2 diabetes mellitus. 5.Gastroesophageal reflux disease. 6.Osteopenia. 7.Osteoarthritis, multiple sites. Hospital Course: 79-year-old female patient admitted to the hospital yesterday after she came in to the emergency room with headache, dizziness, and slurred speech. Please see dictated H and P for mor e information. After patient was evaluated in emergency room, admitted to hospital with TIA. CAT sc an of the head was negative. MRI of the brain was also negative for any stroke. MRA of the intracra nial arteries and MRA of neck unremarkable. Carotid Doppler and echocardiogram were unremarkable. T he patient's neurological symptoms have resolved completely and has not had any other complaints. Ne urology consultation was obtained from Dr. Hudson. The patient informed me today that at home she was taking 3 baby aspirin every day and I have advised her to cut it down to only 1 baby aspirin sonny y and add clopidogrel as per advice. She was also taking simvastatin 40 mg daily at home and she was advised to discontinue that and start atorvastatin 80 mg daily as prescribed. She has done very wel l, ambulating well. No focal neurological deficit and she was discharged to go home in stable condit ion. GUSTAVO/MODL Voice ID: [id number] Report ID: [id number]
== END 2019-11-22 17:34 | disposition home or self-care (01) ==
LOC: ER 09:50 → ERHOLD 11:24 → INTOOBSV 11:24 → 4TH 13:12
PROVIDERS: ADMIT Internal Medicine; ATTEND Internal Medicine
DX: G45.9 Transient cerebral ischemic attack, unspecified (principal); R29.702 NIHSS score 2; R94.31 Abnormal electrocardiogram [ECG] [EKG]; I10 Essential (primary) hypertension; E78.2 Mixed hyperlipidemia; E11.9 Type 2 diabetes mellitus without complications; K21.9 Gastro-esophageal reflux disease without esophagitis; M85.80 Other specified disorders of bone density and structure, unspecified site; M89.49 Other hypertrophic osteoarthropathy, multiple sites; Z79.82 Long term (current) use of aspirin; Z79.84 Long term (current) use of oral hypoglycemic drugs; Z79.899 Other long term (current) drug therapy
CPT/HCPCS: 93005; 93306; 85025 ×2; 80048; 36415; 83735; 84100; 85610; 80061; 82947 ×6; 85730; 83036; 80053; 70450; 71045; 93880; 70553; 70544; 70549; 92610; 97161; 99285; A9577; J7040; J7030 ×2; G0378 ×3

== ENCOUNTER 2021-11-30 02:31 | Emergency (ER) | payer OTHER ==
--- OUTSIDE RECORDS SUMMARY | 2021-11-30 02:35 | XMS REPORT | Continuity of Care Document ---
:1940 Author Organization [facility] t Address [address] [place] [address] [address] [place] [address] Care Team Providers Name Role Phone [phone] Primary Care Physician Unavailable SYSTEM, NOT IN Attending Clinician Unavailable Jamila OVERTON Attending Clinician Yolanda Lira MD Attending Clinician [phone] YOLANDA LIRA Attending Clinician Unavailable Eda Joseph MD Attending Clinician Dany OVERTON Attending Clinician DANY Attending Clinician Unavailable Eda JOSEPH Attending Clinician Unavailable LATISHA Attending Clinician Unavailable Latisha RAMIREZ Attending Clinician Rachel RN, L Attending Clinician Payers Payer Name Policy Type Policy Effective Date Expiration Date Sour ce Number AETNA MEDICAREAETNA [id number] 2021 MD Chin MEDICARE 00:00:00 [id number], [place] [address]Medicare Problems Condition Condition Condition Status Onset Resolution Last Treating Co mments Source Name Details Category Date Date Treatment Clinician Date Essential Essential Disease Active (primary) (primary) 04-16 Christopher rso hypertensi hypertensi 00:00: n on on 00 Hyperlipid Hyperlipid Disease Active Tate pina 04-16 Anderso 00:00: n 00 Gastroesop Gastroesop Disease Active M D hageal hageal 04-16 Anderso reflux reflux 00:00: n disease disease 00 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 Family History Family Member Diagnosis Comments Start Date Stop Date Source Cousin -Gynecology (Ovary, MD Mary alvarado Endometrial, Cervix, Vagina) Paternal aunt -Gastrointestinal (Esophagus, MD Chin Liver, Bile Duct, Stomach, Pancreas, Colon, Rectum, Anus Social History Social Habit Start Date Stop Date Quantity Comments Source Exposure to Not sure MD Chin SARS-CoV-2 (event) Alcohol intake 2021-11-22 2021-11-22 Current MD Wanda atkins 00:00:00 00:00:00 non-drinker of alcohol (finding) Tobacco use and 2016-01-16 2016-01-16 Smokeless tobacco MD Chin exposure 00:00:00 00:00:00 non-user Sex Ass[birth year] At [birth year] MD Go on 00:00:00 00:00:00 Smoking Status Start Date Stop Date Source Never smoked tobacco MD Chin Medications Ordered Filled Start Stop Current Ordering Indication Dosage Frequency Signature Comments Components Source Medication Medication Date Date Medication? Clinician (SIG) Name Name sitaGLIPtin Yes 100mg Take 100 M D (JANUVIA) 3-17 mg by Anderso 100 mg 20:25: mouth n tablet 31 daily. aspirin 81 Yes 81mg Take 81 mg M D mg EC 3-17 by mouth Anderso tablet 20:25: daily. n 31 folic acid Yes 1mg Take 1 mg MD (FOLVITE) 1 3-17 by mouth. And erso mg tablet 20:25: n 31 aspirin 325 2020- No peripheral 325mg Take 325 MD mg tablet 3-17 08-16 arterial mg by Christopher rsvimal 20:25: 00:00 thromboembo mouth 2 n 31 :00 lism (two) prevention times a day as needed. clopidogrel Yes 1{tbl} Take 1 MD (PLAVIX) 75 7-12 tablet by And erso mg tablet 00:00: mouth n 00 daily. atorvastati Yes 1{tbl} Take 1 MD n (LIPITOR) 7-05 tablet by And erso 80 mg 00:00: mouth n tablet 00 daily. ranitidine Yes 1{tbl} Take 1 MD (ZANTAC) 4-25 tablet by Donavan o 150 mg 00:00: mouth n tablet 00 daily. metoprolol Yes 1{tbl} Take 1 MD tartrate 3-31 tablet by Donavan o (LOPRESSOR) 00:00: mouth n 25 mg 00 twice tablet daily. metFORMIN Yes 1{tbl} Take 1 MD (GLUCOPHAGE 3-04 tablet by And erso ) 500 mg 00:00: mouth n tablet 00 twice daily. Immunizations Ordered Immunization Filled Immunization Date Status Commen ts Source Name Name Moderna SARS-CoV-2 2021-07-15 Completed MD And erson Vaccination 00:00:00 Moderna SARS-CoV-2 2021-01-14 Completed MD And erson Vaccination 00:00:00 Moderna SARS-CoV-2 2020-12-17 Completed MD And erson Vaccination 00:00:00 Vital Signs Vital Name Observation Time Observation Value Comments Source WEIGHT 2020-04-16 11:56:44 89.8 kg Systolic blood pressure 2021-11-22 16:23:40 148 mm[Hg] MD Chin Diastolic blood pressure 2021-11-22 16:23:40 78 mm[Hg] MD Chin Heart rate 2021-11-22 16:23:40 72 /min MD Alan navarro Body temperature 2021-11-22 16:23:40 36.39 Mayelin MD Michael lopez Respiratory rate 2021-11-22 16:23:40 18 /min MD Michael lopez Body weight 2021-11-22 16:23:40 93.7 kg MD Alan navarro BMI 2021-11-22 16:23:40 35.70 kg/m2 MD Alan navarro Oxygen saturation in 2021-11-20 23:06:31 94 /min MD Chin Arterial blood by Pulse oximetry Procedures Procedure Date / Time Performed Performing Clinician Sourc e MAMMO POST PROCEDURE BILATERAL 2021-11-20 23:56:32 Larissa Murry MD US GUIDED INFRACLAVICULAR 2021-11-20 23:47:00 Elliott Murry MD LYMPH NODE FNA - RIGHT US GUIDED BREAST BIOPSY LEFT 2021-11-20 23:47:00 Elliott Murry MD US GUIDED AXILLARY LYMPH NODE 2021-11-20 23:47:00 Elliott Murry MD FNA LEFT US BREAST COMPLETE BILATERAL 2021-11-20 23:47:00 Elliott Murry MD US CHEST 2021-11-20 23:47:00 Elliott Murry MD US HEAD NECK SOFT TISSUE 2021-11-20 23:47:00 Elliott Murry MD US GUIDED BREAST BIOPSY RIGHT 2021-11-20 23:47:00 Elliott Murry MD CYTOLOGY IMAGE-GUIDED FNA 2021-11-20 21:48:00 Elliott Murry MD INTERPRETATION PATHOLOGY BIOPSY 2021-11-20 21:46:00 Elliott Murry MD INTERPRETATION CYTOLOGY IMAGE-GUIDED FNA 2021-11-20 21:44:00 Elliott Murry MD INTERPRETATION PATHOLOGY BIOPSY 2021-11-20 21:39:00 Elliott Murry MD INTERPRETATION MAMMO DIGITAL DIAGNOSTIC 2021-11-20 19:50:00 Elliott Murry MD BILATERAL W [place] OSI US BREAST 2021-11-01 18:43:00 Fausto Joseph MD on OSI MAMMO BILATERAL 2021-11-01 18:43:00 Fausto Joseph MD [facility] Encounters Start End Encounter Admission Attending Care Care Encounter Source Date/Time Date/Time Type Type Clinicians Facility Department ID 2021-11-20 Outpatient SYSTEM, TALHA PALENCIA [id number] 13:33:08 PROVIDER Donavan atkins 2021-11-22 2021-11-22 Outpatient MJ LIRA MDA MDA [id number] 10:18:21 12:10:29 PORTER Donavan atkins 2021-11-20 2021-11-20 Outpatient MJ PALENCIA MDA [id number] 17:31:29 17:31:29 Donavan atkins 2021-11-20 2021-11-20 Outpatient MJ MURRY MDA MDA [id number] 13:51:31 13:51:31 ELLIOTT atkins 2021-11-20 2021-11-20 Outpatient MJ JOSEPH MDA MDA [id number] 12:40:48 12:40:48 FAUSTO atkins 2021-11-20 2021-11-20 Outpatient MJ JOSEPH MDA MDA [id number] 12:40:43 12:40:43 FAUSTO atkins 2021-11-20 2021-11-20 Outpatient MJ MURRY MDA MDA [id number] 11:54:52 11:54:52 ELLIOTT atkins 2021-04-29 2021-04-29 Outpatient MJ GOOD MDA MDA [id number] 12:20:45 12:20:45 JAYME atkins 2021-04-22 2021-04-22 Outpatient MJ GOOD MDA MDA [id number] 00:00:00 00:00:00 JAYME atkins 2020-04-16 2020-04-16 Outpatient MJ JOSEPH MDA MDA [id number] 11:39:48 12:59:07 FAUSTO atkins 2020-04-13 2020-04-13 Outpatient MJ JOSEPH MDA MDA [id number] 00:00:00 00:00:00 FAUSTO atkins 2020-04-06 2020-04-06 Outpatient MJ JOSEPH MDA MDA [id number] 00:00:00 00:00:00 FAUSTO atkins Results Test Description Test Time Test Comments Results Result Comments Source Pathology Biopsy Interpretation 2021-11-25 16:06:16 Test Item Value Reference Range Interpretation Comme nts Submitted i1qlxGBnAOSrs4xyMVUscVOcTaYaSfMcHlQmNjkjdNMhCBsjaxRjHDbce0UzU2ZyOqHmTKwaqzKbZHEp KhhqqnbbHSSnLSJ6ieFmVIVhBUwrYOCbZDyjVa8rgSVzaYldDnLaKPDdk9epahUFgfpfqOe0a4okYMIn XyU4xKOzXTznQ2nnroPfhTEpIHUeSRs7yC14PVYkmV6epFBfXQivakXkRfP1SYksTJZlYgE0VBWhi Clinical LAbSIEoZ4anIWLuAOwjATYnOOhriVZiLWT4sNjzn3H5iQJvwJGwqYlnKyOtXmWfBwGJh3EwLLv8jAnnZ 7HcFMYgCzG4vREnNRNwQCiaREJnVIUscqT7sR11FArnqjS9vQCma9Jgd57fw098wL1zuAOdWWD3WUPgI NAfuMByARTeBCG7ELQkkCWlW2rvKACeIS2zvpmrGIpiWJuiMEZriZB8MYWxdWWuE3GoXFSrSSjuAY History Bfetd4VyOaLr4whMMlqDhjTUysn7udm5iqkWIvRyk4GRPeNvBsCynzFRdor0Cce5qrWAKyrj5oIPU1gY YizKjon8C4aYJfOCBpgDWfasJzFGNhLuW0KJcyDQ1tsl09TPSjBFZ0ue7fuVDfvMivecAegFTmMVwgH4 IhRYWgk944REZhX7XdNRTup4E4rnHnYvOyWKAqbUL2ypL1OANaWCv3xHHgjtU2jqMioQNwZ3jzqI7 (test code aYJXqBR0krfbam6oyCPxkPLkdBUDxnAP4uqG1RJRbwFWkW8DpnR1eGCDsBGssATThqxy6ZnCzXk2ncSB suJskOFfdXrsoNNoxOMJhgcQtnsJxgOmxBQIsLCHnZPdiBTUjFElbZCXuLIUoOuRrjQphjSavoB1lNzG iRqZcZCzqEE5bAAXmE0awhFCgDQIrIVScM6ypGqVfhL2dnSuyLFuubvIzBJ9tlW7qN6FjvPg0RJIe = 98110) pa4edGLeOGuDJNKnCS0ssOstfR6tMkNcRhXvJzzyCN9mYNTdO1weaAOmQETqUVKgT8vnTrEihE2vzPpi WRrdipRwCFBbtd11 Diagnosis o3kkiLPvMONgfEW7OzVqAINdy5ftf9LplHUasZJjIGerhIAfrhZeeg92xPQ3eD07TQ5mLEMeEnI4FYTb gvN6Wwe5JIVqMMKftDGjX124d1qli7xjihNdpTK9YMTbMZQhC6VrWU7tMIQqxSGyZ64avSIsMJQ8CCTt BVWbiSCtNDSoCIV3OKMxbWBnD9zeUHWnAS1fclolEClySZldRHAamWU8VRMrdDAhI6RdXGXeJKjoY (test code GBdzao6UsTaWm6kiPVepYznUSrbOYImGXRgTTmjVXZuKuWjK3StQVW2LTIzQUFqcQidyradpYSeIYQvQ 3a1NJPqXXPdvUWuTFtxMXiuZfMawXCJOwzaYR19FLSmGYPndTReUujeJH1rc4YzKEQpbNOck099jxCbA 0QiGYFaHUXhrnAujtEmOYmtMTZms0QsrDapdSCuZUrwDmVcOYbndqkjZGbzJiJzLE0MOFSSEmJaHL = 34) CPCONRKVSGTpXJUf3XJBUDEaJBCbACI7CkYLaFB3THDP4IGHApU0IHBKDrDgjhPjWPJIFQVqWHLgUUBL UbMJaTACsZUYlBQDIQBVvmZ2yBIMGGYJKBU4MFKTsSCWWBIREGOAFFUPOGKVCTNC4IUIPCMIfMKLtuLX 6PWNqBCVNVXECIPwPTVHQhKEDIDCJZHyRpD2QAWYCAEM3CHgBlQmdeENIfuYfpGFdjeuIeuBWlKFT vSYVOJyRNcnNzo9KdTCPsF1a3QPSysObetYExifOnk1RfCPM1SBNmSKTjW00cVe1gNKUnA26vxEMciIX euHTllXRtyneltZl0eoMsi8FzJE3teJsoAKUrY32mNCPpVHJvjBQbYuijsLS9TmejWIDhaPh1ZwYhvEv iSuChANImVHODKyWPV1pVHSOQNDBXNQglV3SYX3pLO79ZWS6RQPBMFQKKTHgsXMyUXG2EY7dZVeKS KrHUVSEfSJFFIJSQNEGVDHuIYYUMUVBgOOyHH2jkW5JIPDZmLNOMZWADFX3MH7QUIFGOUVkGFZJEKFLG JUWGAk1aZKJBPEdAWQXtK6eVIVOVX5bhG8BQFGWkHQIYQMnIZuVRFTMLTGIQOJnERHYjD29DRSWEWMqm OQXdvpzdxLEghBmeCJsyEKTpX6ZeCTQ0LMm7xLGwFY8nREPwnnkwDXBoK6o1MTYnhQytlCMuwRPwQ KStvIBaQWJaPehmG42oQGUkxWDwa304saWlS0RbJWZfOHAxgvVcahJwOXbrRIFrt5BukTygzGBzSJwoY nToJNzijptkSCohDcZmZLGUDLBHJSTNCnJCDEPCE1HZVhIKFw6SJTYDJJJBGM3dM51EOOuAYZTAHP0VB TAnVCWdLMynOGEVTCDLP41XOX0ZFSAkdnckvHWftWbdQZtaNQGfV1DgQUI8WOAcWZNonBlhrMBdsI kjeKJimVNxecQmp4TqSmlqNQevBKRohQUWTdplRA58CDVrXR5if4HjTTOgpWShr590amGpZ0HzQQEkDG DxiiAfueYgGGxkTRYdn5GvcCkcxWAvSUihIwPwYGhbmtdoOMxzAnWxTL9zeRftovEcPhQ1tGDnVPVxA3 CswrJcB4spqUI8lGIoLLHlgEQpYLCzwuDdL8wzbfwwqhTwk4DiTJDmpM5iepRrFuxeDREopSRcIIj wYXJ9 Comment b9fxwPAxHPTpxBG1NkShVXGlo2sqa6FvwMUdrWClXFaulWOcbdBqil32hNO3mR25XA1bQVXqEoV1DRXt ikH1Obo8PUZaWJNvdZYsK404t7ixc5sqxtUjtJP1MWOrXOL5HVzuocXlkoS3PTbxmUKtSqI5O9gjQTRa KFssAYYdOUwdsFHhSSl3QKBezEOwkrZbQkNlDAXdlCQjmOI1LJXrIC6qwkhaWTaeMCkhGTLeitW2H (test code ZDouKJxH6GjLLRzAH4skcqvIQC8ILkfCUTnSNZ9JhUuVEViu4Ogiww0PuAuwDBtNHxfdHGulqzwmgGbP LCyJVCorqMga3k4YHOaRRTdzF0tsONuOXErUk37cRMomAXvryZRTVFpBQHTUXdivgJ5h55fXSkalVxwM 0SxhwLuwAocgT0by7uqMjRrRAG2AEHwztpwqW52AHEvswYbnYhhwb9xQFCdxCbbpgcwaFzbdVLvHV = 9835) FgwEnnnU3jeeCfWRKxnqKslTCyCXIgELVcrvOtiO7uU8aeq9BsSkXaslJik0y4KGW2fXB2gLQoFYXymG Qxue8nfXxtrNDnRQNgxG77OJdsUKLrUjXfOn99pUYxBgA0oHWeXJZjpAU5m3qfZ0ffVXHdsWDpha0dOE xyhaMkbJQpvlMoY0XoVQEvY3HhzK5gYNK7FwG2rYRwSNJoBYNfY5EuOcIvSUGvcZ95ZbRmCItnUX4 suLXteXUjjOUglP1euOweGOU1aNrnGXI5IZ3dNLDjqCIvTIH0GhWuWVEohGG8wWXvgo5dO88yZUFelxH veDBapLfeuSMpvDeddSJ7iWIdrN40MZQvqbUccMdsxo4cFEWlvPfufydjcIJ5cWFrybVgxgM8aZNczfa erGDdKuKkUHI8KXSzgKxmZULekDTws4TphRLaUCZzHzLmqoAraAtrxMwhxvAtty2sEMS1PpHxGOUq F1AgQ0iwq14kXbRvICQgmhgjLPIaTR3ulU1heHwpwC1dfCGazHMwlTWcgZZafhVrv3QtEBJuEHWgc9Vi PPWob00mcYebc0WsHXXsS8Edx92lNDVxa30xc3UrW1ovZA7xGR0jBJZmHWJnXFBeeA6dyRCtm2Fss45z vMtiHMpkulIkv2VkSLjZHITjQIGiVGYoXH0dMHokf6GiborxO88dGwqrdPkhVgJ2bBQktBRowXNgv RJznjmdyB7uYRCKukEyiA69lp3fnUGmhcZzi4UzQJFTUXirJ6bicUgoiTEmSX6uj8VxFImtXEnoB5Tnr SOgAF5nNNTdHRIdt4TbVKOlr40evQRoyLMoKP08UKQ3yPSxttCkTW8hIBj0kJGzb1Hap1A2hRWqLQtqc yDokA1uTykqNNUdxTCvUIKxlyjnQMXqUMTim39gukmjpaFWUUK0xNYzVgatENVpOsVunVc8yMUkGF 3ckW1udTsqmV6wxRDgnDClvBNtkATcomxbQkPgvkOdZRVtb4NgLHPkwG4th5BeCNgrXvZoolRqOZPqCW QyjbOefUu4AQeaHDGbfQEtJYk0zGr3WMAsuSDjwWCleIejYkwpkGI2BZwbRyncoX0etNSJSOLOUhfCDx bimeQhGF8AYERTPcGHEH73CzDnFNP1RAfiqVpoTngobmUuzEHxKzKqvH2PXMMwJcEwhb6bgGSfCFQ aHLAaPAP5oN9vBLEdt9bzvGZnFVtjYfodrDPpqgK3PBfTYDXDMZwCLiYcII2hOHwYL2UOMoU0QkEsULN 4NVlmaMshEdauzmPnrOFnSyJioQ9dpDrqnR9bnKuscwWlUTDmldi5ai98KTi6fvWpHwVrUWMdvCYkWTE sR6k5bkVeCNQuFCKwxYYvQKRoJbQbFZMbmPDtGKNaUWmxpEBaNIS2VAWbFOOdCLQuXZN5RQRwVqGh mkViKAoswBNiZNVqMEAaCDKeJEKwHYS4GHBxSdQtigPwNZtekQGkOGMiYKIhFJOeXGRqFVK9KGGhQnNs ohFpMCdeeJUxPNSlVCZiLOPoQKOdFSJ5ZVAuNpQkboSjRIglyJRatlObdZHoY2mrsXFHfIE1tTUlL1c4 U5ufcYhnViSeTLWcsFq5NvU8BXdvcYHhEUU1ZNPzFJUlBRLvWNS8KLSkZsEvltDeTGbfnTTaODKyM EZlKSWoNUYgHSM3BICoNhLultAaMKpueTVrCXFpTINkIZQjOXAqJUD6WBQwDlYczlIsNSdcrINsMGEsJ HObHUQjABUtYOH6EMIqGhNxygPiCWlosOYmqaOkqNSmL9mmhEVKbXI3sTNsM9u1D5ffkJb8CmWtCYByl Ef9KBY8VMvpEMDmEYiwmOWxNSRxeJMfH0XgO9frND6cXYitI12nn4ruJdGeK5QinHiuWSBvQEgfpT OpZHAxKAUvd3EuD4P4PELmXAeaa2rxHYZgTDkiv3LwXXcKYZCQEN2OXS0whZH6INuWCWIEC1aUqYV6SU GtgWU7Ju81IWDuQMNulRJlNPkjR933RU5CLDKIXnEtCZNKEVQGQAWFRjOEMr0AKHloQlrzqQL3DHnkGt sczL5eoOXGULZRYvsJXkvrvdBzWP4BCBIZYS1BkVJ5VCAooVY8Us24VYCaIWGaoMUxOUrjO288OBQ sJAcfLAQxZkVjX8AfjLhauaRpjXhyn1mzmKRts7MyzWCiNWVcXswxSKKqgAWcBGcqSZa3dxQpUMDxmfC hpGYtWOSzdmX5ZLBbUqXgyiFySxUkeeDmYhKmtppvZWfknsXwO4KuQMCcOaTlwzcnRjOndjVjDyMwhbc zRIqweeLxL5BuCBZcVuNbqiPjEoKrgeDuVcNboqilRUpizgQbI7IyIWWjDvVggfAjSjRthgLzSrRk ocwiXLtgfzOoV7CrYBUnkpDhmGYtlLlevOS1t3obHNGaZ4rkiXcMoAO9pLXzCYNlT4LdbRlaFeCxXKUe AvBwoeAdQlCkemRfFxNnuspmOHvcowHmY5QrMYXiPsTctsspNyFyvzJgXfBkjgzcGQychwFbI2WbVJMo OtRmndBvHlWpiuMhFkBrpyafBJgobfVbQ5EmCSKdOxVrhoCqXpLckiYnBaYlmvwtMBbizaIrE5ClW KHolrZxmIGklXhtiWM3e3rmZCXqI2cabOwVuZK0aNCmLQUoT6TssZy7VBPxPUSgvvYjqR61LnqhArGOv SVxUkguBOznLOBgofXcuY79ZrcnOnYmyGWzcFWykHryXfousEA3WVvoPuajdC9huCIQOXHFJyjBRajcx hPhIN6WUHVAXgWDXC69SrAgWWS2V9zhiDcwMeemlwNmrGFrKfRpkV9SwIxwfNDJcjQso9G1WIMxJK zpz3wkXERpMShcu0YhLAxCBJNJBH9CVU3sfJB7ASvDOVRBJWkmWqMkY7avzBS8z1jiySJwf8f4QYtvEQ N9yVthwUNprruqoeRfRDBskIoozQ40Ilfifg15SZFyo7opOEFzyamjDUOymVIcXGVdEbrpEQHjfQJbOA pfVHo8uoDhGMVxpsPwmSVuDIQaawN8HJSxKeDdznCySoWxhiFdHwMciozoQXhaztXbM3TyXPQtXoA ugbukJfFodmVdZkYxjextRSqnvpReG6EzLHVnJhLnufHwJtKvnuNxKnZkkhsrHKfrgqYxP0WnTYNsMkO jpkSeNfErkgMnYyPsecemODqdvkHaB5YsYIHuheZhwJHavLudpSK1b1qqCNZeY7zctAvVlGT8pSYgGOA dX6NzaIovKaCaIHQsHbBsthSmCmWcfcEvFdVmgfvpUZuhfoMyP0TcUOJxCiIejoqvMxCdzdJhZiQg sktgNAlkslKtA5LuCEClOoQnpoPcTwDwrqJtTcDbrvdnUBmisuWmX3TrKKIiIdMmfsQuXfCkozUpPbIj lnhbGCjbpwRlP5RtYESeurUbbELetAyadKN9b1buHGSuP7koxEoRjND0nSLcZGIiS0XilMq2IXSkKBXv enHdoD32YzgmgOg7NlWiDBR7KPxrQShsEOuoHTKrChtsFBseVESmwrFkrM05YqpkMrRwtRAwmWEco DtuUjoqbTB2FGhyKkrloW0aiRUHZFKCIruGPcjaqzAaXK7QTLEQKeZELS62HfMaBHQ2QNl3sRcfKpnjg qMamWHpJfPrzH0PP5P9EUMuRKwtm7roTGYyWNttg0WiSLqUKEWBCP4YOH0uaKI5SYcKIVVJDSlnEwRhI pu1lBR8d9dubOPho0s9NQihMYD8gUashYPycjfjesTlRZJmxBcgyP46Jekxtk33BTUml0mrKYopf5 Azz6jtkAWcLADnMttdVZQmeLFsQFsfCUk0mfCnHRQeydOduLBdIGHradQ7BQUmSjRojfHlEnAmwxQrUy ScqtmnWJspmvNvT4VzPNOlDdCdkiazJfJirbDtMoUenxyvMSgcedNyN3FvZFDnPuIrasRsGsPjlyDfZp RsidpxZBumtmTdM2TtDGQaZsCqilHaVfAzclNbFmVixeheSCqsqtDdD9WsTTCxbaXtuSNqoDcumLC 2w4bfVMRrF6fyuZtLaIT6hSTcAJPjE8NwnTnqWsMiYRQdHbEeupUxMiQlbtXxFpXqafmiPTtlplDyX3Y wJSVoKbFzlhluIlFdbxXjCiFwlmdzTEbwseQfI8MgDDSbXgDexzUrHwWycmJmFgHgdcovCOblkjUlK3O vWWXqHyHywdWxBxNmlhEdQuOkmuaxAMzrmrEwU7IrYRAvhpWcuVEhrXwidSH7w0uiUELwC7ivwUqV uNM0oPAiHBOjC3WlyDu5SXUdHMFghmQchN21HpzyrCr2FgXuKDF1TIrwGDnzVWXcm8WxAAAaHnMwD3Yd xFmlRQLcTEmmfMTuMGXbZXBuBUQboAedzY67Xzbrpl64DXLuzrTwhRFnZFDkrgaoNDJnHGT4JHM4BGzv NJZws19vmdtkeuokLXbiaSSxACBessVLf3Wtl2xaowTFDHHirZQlzimoRRVhhcc5wu26DTv0ccVtJ NgeWZMbxGJsALSaA7h7hwZiVJSlCTLupBSfOVRiGqUvPZRpuAQtYCUuAMtkkXJdLTM5NAUpWNDiXRQpH PU5FMEcFhZejbJuSEascCVuXTDhRJFnKOStAELoZND9OYUmImBtbwGnFIwfxWPoXXByDHHgTCCtWFBnR ST9YUVoOaUbvqZzLHtflDWpNUPtGKMbRMBcBTGmAJG5QPQdSrZsrwWxSPyjjHZoynNxnOHnL0ysqC QTpPE6fCDbN3a8U2fymJxzMGtqDSQibSg9OJx6JZzavOFwZJS9KBJhVZZsXMIjLOW9XNBgRzGecrOcZB cxcISnOAUbXLMwJHGoMSLbZMC2TXHmXuRjgqBrTFvlcNYgFYLaLHTnVMErSUUoVWR9JLHeFrObcwZfVI arkBHyQCTtWFWsZIOuRFWfPOJ5AVRhDsOscpRgGOiywREkvaLuvCSsT8gwgBFDkAK8lXOgI3j3M2v ciSm1PHxbQKRkfNw3KCX3NQsbKULlMAqjrKCuETHaZMPuWJhwFA24kOWbYBopQ1ycnkS8CDxcBArzAWV koaPtcK79UkmzmQXmsSAcrYvwPmtrkJW9JRgfMqgzfE9ayUQCKIIYHbgNEntueqEfCS4BLDLKRtRLDT1 5JaViIWA3RWb2dPtzCfisavOfwJYrSuSlgM18TlBdCQpUTMrkOQp9HEOrDVaox7uzOKOiGGitd4Wj CWvMJPGMFW1EGC1yfIQ3MUaPUYAVYYlaZbTyDBw4kSY3z5hszTDqb6v1KEorZKF9eBbluAQtwypqFPSg RtIuT2AdjSeavjWsyRxca2dkyUHkl3ElfPLrlJZjPDp8jmDvBFZkqTXfyKTsJNZbtAJ2TFEtsJOpAXXq I6t8koJlZQVgJFTuL0tgykBvjCdbszFnc2vekhAdfzQlSSHvDEBuIcGhR5dtheTynUtsuzXlg6vrp pLqciCvPMIlIAYgMyTwG3deefQxpdvwabDlz2deqfVaveRxFFKpHXJrMlFeP8iblrLnBfsnfzCet4bde fBobtFgODNoVPRqCeFdS7b7MPN8ALb7QHRmWsYuU5yfdAvdSVZbc0lgDYAuWOm9XYilCMvomHU3XZCxS 4uoyqIgkOuabnRwa4kcnfOfkqJgIWJuSIOxJkXjU3sjtwIglIlebnQlt6gledKrqbWfVRHkHDSrWj EmO6iqhuLnjmwngzNzm8kqkrSnmlOoDEEqTYSuBlIsZ7eyvtFkFlmvntExh4hxkmCgueExXBSfFEItYh DoP1x3VQD3EZp3IPVaCbPfJ9mbyDkoJUFfu6riROItFuB1GJqmQOhjnPk1AhNktTQiJAkpjeHroPkmzk ewYYgsYBmkKFCyhrQitY14JvqhtNRBa1GdaKb9EPT1PGPgJJWqVEDbDCflecZRs7KxoUv6VCW0JRK xQPEvMWLttXlouL63Mvsumk73GDGiw7zaLSWaaqwfLUOnoKEqKLMnRszzIMHfcPWaPAmbZEe6dcXnMBI xexHtyVTyWJRwpjN6JBWvWbMspgJwJxFwdlVkEaNmuqceWPcryrAkN5CmIFDoCfQuhwcjMlFurrFmAyB gddrxBDaaseYxG0JmSAPkBrKmhtFwHmNljpJrTgUyqukoKIxybjOpQ8OmTILoWjOhsfDyUqQfmoIh IxAgvmrsRBwgkrEsN0BbXLGnruGafSHpiWdaoJR1y3hjOOBrU9zqgFyIaLV7uNR5HOZrB5XpqWmnDNan UHEqUsBihmLlHpHthqIcJcLnetzqXKnmqtCgJ2VcIFQiLoXnqrotCcSwwsOeVfEemzvgPJvjsxAtH5It YFPbOlHtpmDoAwIecwKzDiIcqksvMZimdaYrI6RmJEOfKiTstpPgMbUxeeDfDzLfxfsdETnoorKgV 8GaFBChtsSvaDWsvYjsaOB7e3haPRXrJ2hgwJuVsCT7tRB9GoIhH8JfoAe8WYYgZOOxtwJulH58Kfhlu FNciGPaZ0FjxDbaDIUoAKjpbZZwLCucNdMeWTSwdjEzTmCWyGunm87iLJHfDGxwRVArQ9obTOB3iD6sP SquVxSHBDNeBzVgWNhvQTxdPFgxvEQiPOSin6h7pa86TTv5zeWxMlZyFBZgkLNvPQStS3x2mqFmRI CsAMLxhDIwVVQfKqFkWPNjsKDpCWPuSDojqZZoOII5DOStVLQeOZSvBGN1JGLiQxJkoaZjZCojwYVdHI KyAPSgSHHvBEYoBQY5JMNuYcXybsPdADcluVNsKTIvBYJtFHSsTARwECY9LQFcEaVvmoFyAGkglCXzGB BnVTWdUKMqIJQlYYW8XKDbUxZayhHmQLttdONszlYonXUoM3udrAPZuRM7tOJpG8r8J9rjfSexQKp uNGRglQl5ETk4BBvedADyMBV7FOPfJRCeNNKnJOC9FRBiDyCztwZkABozxWXmHZOuCBKxKJDnFTApNLT 7ZGXeQsSwfnTsVMcqrSLuIBBiRGZnNLJqEFOwAZJ9ZDVrKpObdpNtEXmcmGPtDZTgQBHaWSNyQNFhNUH 7NHVaGlWwjzXnOEwrhOIlbbTgaDXrJ8gtxZFVpPX0hBNrV3g8O4gxnJy2AIgfTVLzjIx9GQY0MVrg BSCyJPcdcNVbHIIeVBCsrNTzZqJfmFx3bmupK1HegXbzQNGdLXrcqYEpULXhDYAwy3NnV1H9CUDoZVwm n0ehXJRdVKkpn6ZoTQyCVJYXCB5QEX7zsDN0EBfXJCMDQ5eCjWJ2DIO5tZR6Zq44FVQeSXVkqGDcTYph W169ND4xmWZwcrF7MTDnPVzrz1tjUIDdQXnyo1GqVHiWYLVASN8ZSZ3qbSE4NRrAOWCOPPadNxNvY Nu3aRH6o6ymmLRvu0j0QVmdWAS4tHghjPDnkvaksfTxEPScfSjqlM93Mwcciq18LRTtq6biJLAkpyprN qSnwJExPIZrYtmeDMSowVSnXOugNIn2biNeFORzcnLdxTUuSNIhbyY8QHOeZwIcjtElPfLwtgEhTkGmn qteTIxwdpNhO0CmHSAbYiBjsmhuAjOdbaEeVeQbjhibCPjxblFyE5GqLUPgXmQrsoDnTaCsqeGsDm MvchiuDNhviyGsI7BeZQEmUuTzfuPmThStboCoSwEyptvpUFwgjxKtO9GuNBDlbuMjzXUnvWcxuSO6f1 ptLRInZ6bjfDzJzGQ9yIR0RTIsE5QfcAywWVhwDXKxHiIgwpFyFsVkvdFkMvYvygxeBVqglvNeQ9CnJO TlFxLtcmxxQjCcjzYkOfSuolvmZKvshfXeK7RzDOZfXlCbydFtGhNuxfIsJdUnctduTTjlxlHqP3B nZEUmQyOqmvDhKtAaqrVeKoIrqgapBHacjyNzL1JlNOHelqSypYQbrGuffLW1o6tdVBOoM1bpcPkYbKM 0rHR2FcPuO4WqbCw4KTKqCAAfqpUyfM76IgmdwZBaKwDMTQAsDL73JJZ9CXcqdV9dZvtuREabVWNivxS fdN72BniyPiDzwIDziTNztGphMwfweIY5YRmxXiimiM4jbOQRBUTDHqbXMeppkfFwDH0DQNHOFwJT AO93KcNsGvU6Z9t0mJimSjedawRqsJOwQoTgdS3rPSMbQ0WZZMOsBNGky6NtE9Qyh2enhGQkCXmwPpzw uJZaodM1LVyFVBPZXZzGLhIhBW5qTYcVSOXOOGrMBkb3oBhxBdaqhnGviMVyKxGdjO38JPhpRqwmoVA5 IUsbGkzknT3taFENHCJTZerYHqhqlwWrDJ7QMRuWRO8RwJq3e4pgnBWkh2v8QTawEIS2lOckoGCot mtgyp92TGO7RYQfLbJgYUE7HFJgDGbuh1xdWMMhYEfox5QjWXnYURDDQF9PKF3ikBG1CJdDIVNWZNmiH uKlCXy6mOk3x0pczWDtu7o8QIamFTB5nBqvfFYjapqfbpEfMTRooTkznM49Acvguk05MQPrh1hiZUSnm FXuZXWgM8f4syDxQTKpHHOkpGXrDZCgJhCrBACkvDGoSBKkPZirqILmQID4RBMjFGJxASBlSKT2OE KdYnZqqiMpDXxydXNrVJElXPBmZLRnYGIqSCH0SYKtWmCcxmEiYGpvnMEpMTSiZWFoYDEaBXQeDZX2JN YqOhAduwJdGQrveOAmYLIzVPKuHMAqXNUzCZT8CJZuIyUatqBePKmiqQWjupBatARwF6oczQXAiMC9hN HkN4i9D6tzaQxsIAjrAVHbuGh2SAy9KAfnkONfSQC2EZAiJICmUDDxWIK8XLYqCtAlfmNqTEiebCC hSVVwXXEqNFEoTDDsHIU2MXIpEePrqlNuHFnwaJXmXCBzAYOsWASgAAVwYSW8GFTaLzVediBkXZffzSF rJUTkPTKuCJHfPKYxBCP4VHRqYuQnbeTsDEtprKLvamCkfVBxH6ojyLNSdNM7dTSvJ9s0A3mbbWa2JHy eXBGvnZk1FOH7CEmoVYVnGTmdqHXyRLYbYWPuC0MudTfyROSgUBeyrXJeRTKdTLYeu31dDV31QTAo lIyzhN55Yhyiqk09JTBls7tdKIBugQZmXTYjX3a2geGhYGApLZNksBAhLBByIuJsXBPltDHrZYPcHXty cAXdVCI8YDYyZRVbHGNkIVA0AXKsRcHxdwRyCMxxdMWvFFUeKHDjFQBdSOZxHDU5WHMfEwQfvsExRVot rPGiKMZyUKLbQEErXBNaKLD4ZWPrXdVrzvNrTKcdxHOqNHTyUXKmCHNdSAZkPVY2IFDzNkNpoyQxE VumzJFobzMzhXIoE6dkzXAEqZH3tEAuK1u5K6dskDecEWldBEHgwZw8OBm6CNgreHDyGBR3YSZuFPOlB RFdSZH8JTXhKuMqioJxBUktlYBoOHMjYNNhCKJzDIDsZVV0JQUaPbNnbvWaKNvgyEQtRBKxJWHfUFTzN KZzVMC5VNUiNcQdtfUeHAqioHXfXDGaWABkAUXhCZLtTGK4QNPnVjWzdgSbMOufeIMxwiDonEAoY8 aprHRZbUI5uRQqS1b3T0amvXo1HBnpSOLrkEf7QHG1RVtkGHLyZLexqTMeFCVyYLRwnIlcgWCqNHoayc QjfMfvhe91AFX2h9nydTXjWUpoQlnrsLRoxeK2FEhCOAEWMQrAUxTbQX0pNOrXJ9RNCRjWDxkcJmRlVo q0aVm5b0ofdCQhn3w3JOshCST6sBJkyYFytXCtIIHsKEMhysQvn9qpSFJmZXKsivLaMK99MA1dEZQ oHLNuoGfyYZ86FFFvJVwaq1naTUFaLPdvh8GlCAtNVGTPSK7CYK4yiFT0BXcKUPWPUTahLiCbAaz7fXc 0h4hpjOHrl6q9MTmhLPU8pUqwfSOogjdrksRbGSMuoEqirO53Vuslev34QFLdy7avYIAalizfEANmlAZ tpVTil7m3ygCrWMFcoKOujWOlGLSftXP5WMHwxXHhTZIoB3y3svYlMDBjUGMtJ9rpagOqyXndmbBd c8uviwAnzqLjXEUwXSDnEtIvZ5qvgnHsgSkxtvLcj4otckMcodYeYUFkCPEzJhXmC5fgciRhwyfibhSc z2brftIomdMqIAStXAKzCnGcL1jdszLzEvcwgkNqn2pxukJcgrFkSEYjSCEeNyLgJ0o9OZF5TJc5PCMq XrPfE9ceqShsTIWjh1mfMJQbNFw4NUswDFbgtNI6GGXjJ7zpqnXuzDthxfDjl1zfnoEfscTpRIFkS SQdZuZjP3uligZsmMpioeDcd5iqlqKmjyFiCVGcEUByZbFvY9zumjIiqqsljpKxl7eyvgOxyzFiJLEvB THyNxHqO5qtcaTxNvyqclBxj5tmodUpjsDpIXNbJESrLeAkE3n9XAT0UMt6YOQaXxFqG6bqaFraRCZhz 7esKOZaKfQ4THciLGteePs7OlKsqPZyIBsvakCpjCjaibctLIW3MCekHVpknMRbf5s0nYleJ0TxnO aaDWFoHLfxhINyYLKmBXZkf9CtX6F0BOUxSZydb9fkHSUtNZrqr0UwGMgONTFXOT8JXR2mzAA2ODsWGG CZS5rSqLT4GZB1nNEfuKZidQiaTyxuuwBxcMWzToVuyA7NeFZbajs4GKUcSBnzq0miMYMzCGzto5SxPM gITUFRHG5FQY7ieTI9RIlHKAXPEJsfImRoZzafNVgiFD78HGTzYYOreBIfQFhoD746LQUoJHvcMXY lPdCkJ2VxoArhdxJlgIgub8vhzKOsUEsqQMJnsRDaYWl2jHr4OWKdCjsmERZoATSnZ7RnrUGds66uPES zN4LpuI6nQcikBIDozSLfw5FroWEajFDfXAz8stFuTKOaiLDobLOgCRPdlFB8LGOmoVQoDNLlI5k6mcL mWDYlOMWtU3lfeeQsfXsrdgGib3pfncAdzbKyZDVrMCFlDrJaB9tlnhIemLeqrzLuw0ydesRurkIq NJBkAOFrAtWcR0eapqHkrxerljJri7nhypWvljFpPNArHXXwWvRnG0dnomZqUscgghFpw6gtuhSysjRl VGWvYAFyOcYoC3o9FPT6UPi9FYOxKmQpU6omrHjsYFKqy3lxQZHuVIwjWSygMBelzGH2SADjU5gpbkLg sOtmloKcl6iuwuOgfcIrNDWzPYFiMzRpW3mhyeCawFpkcgBjv0nolxVfejShOIInTIAkAeQbA9mke iJzezpcfmMhb8cqonRieuHkGDYuJHWdUkJrI6avviWmZzlkbwDnc6hmycPbuiCwTZWrVOGeBoHpD8f7I RR6WBw5ZYMiNxUtD7umwRxbFJCgg4qvTPDyGfI5DDwvDBlzdCn0GnIdfYKyATxoylQskPfdniueCDopA VHzbAdch3X8JGLeb58nOyXpP2FygRdeFHCrHUlvtYOvDZTyo0QwW3K9LHYpULddq1liHONcSGnzx6 DnBQbODULWME8NON5vnEQ9MUqQCFDHU9tXrYG7SAUziBPvvZCrwTzaUnnhbwFzcESwDsLylZ8HFdNqOe XfFXUpE7Jxn7vzeWLpUQzbBvvjyLLyqoI1CRaMJQFUSZtYIeUoRH0eWOnEY9YSRbX1QvVtEHL8QDA4VI G3s1fkkNDph7v2NOdvTFV1zKetePUmiffeEOQsGwZpH1MvvVvawzZemGtss7evdNBgi9NauKGekYF 5XHx5mfRzHDVpqBLcePCwMKDkvEY2TMLbcMCjGPItP1l4lyXlHPJxLTGqR7ofwbJipUfbvkIdq7sveiR gskDkBIRcMSMfMbNcZ8ilbiJcwVmhiuEod2ktkkThfeSbNCOxVYFhAyUrO1nqyzBynnjxgaHeg2oqiiC ldaZqUDRuDDCzZlSnL2erxuUvRivbgfBzi5tgmzUpbxKfIRZwMVWjZpBnI0s7ATC2SUb3ZCIcGbZl V8ogvAgjXRXqg5gxGUUiFMioSZjnQLvhjNW6APTzX7hklxUrwKaongPyr5erftQxrbPqTVPoRVRlRuUp U4sphdTmdUkrrmJgr9kudoNyqjQvUIHvPYHiQsXpU7msdpPvopuuyhVhb1pmbhOvvyEhSWHfVORgXcFn I8jcehRrNdgljkNuz1kofeFqtoJkMDYaJWOkOoQjE9k4PGZ7LQb7QFPrWmTiZ1zukPjnRXOzg1znE HVkTsW0WVhiBPsotRj2HzApdIRfYDlwbpDgpIxnxnsvICstIKwdPJNlcrTgxQ22SnvsrJCHs6QowZy2H UW8QDViXRXoTMOaKBpfoaKNj5DxvLn3LCS4IXHsBMPiX5PltEwqjaGebKooz3tubOAze4PrgBAmwPZpA Zh2vzQmPYHdkOXlqYIrYVYhbBD7XIHksOVhQXGnR2r9hrBhOZYtHKMpI8myqqCmlDtfiaNwx5qetj MxazYmGUWrRWJsOjKbQ1aksoWlmEoksfWnf7icktOwzaBiAMApRKKuNhLvB8dqxaPjatgkdeBlh3dzkt AyevJmSMFlAYNzZtRiH0avbpVoPewrkoJxs0keilXtxaGzSIMiFVSnQkCoF5b6XKP9HUn8BULvPqEiT2 ljpYwlNEYlp3yuEKMeXTdmNUjvSGeaqUL7BIAiN8jmepBrcPuwuiZzm7waxkNozyOgSCRaUNWaKjU rA4gnptOzjOkqsjBjs5anwsQveyLeMZRiZZMyPuOyK0oijjLcxsbvamRmx6vcyePbjhYsPQIcRDLnRxU hJ8mjnjAzCzhkwvMkm6tdulYftfYdROSpYQDcLiTxT3e7OOF4KKl3SRVxPnCjN6vxyEgfNZNvu7rxILL gFnR5NRhaBWgqmMc0LgClqTFlFPqvdaVjcTpbkqhiEVolTCmhYUOatxOggF00ScwgoKPAWNLeqyZu P0V8DMJnfOLbcpZhbHZrxD1aXEZjiVEHWZAzw0xbNTQzAA5kWMMoPVN1TNPhbWxpiX28Qmqakm94ZFFe p1biLXEwstvhOUMhlMNzFTGfJyglLAQibWHiVCjbSNh4ceScFLZlxoOlnQGeTFYamhI4XTTnEoZwglFq BuQvytQqGeEogfxqHUlhpxWzA8UtYQRaHeYlavrmRiNpcdWyEkBsetxuBXeiscCbK6LqEEQzGuPwo gJlYuAypoAyCgIcrffkOFrdxxYnH9HoZCZoZnCakmGfTfJeepZpRaXrkywcMBezcnZkX9MdLXGvuvSnq TVrwVcmnRD7p4hqOMXvW3jssBoPuZI3cVC0AKZfD6HnfGsxIPkvWMHnWtAngpSaLtFlfjSoQhLfllaeC IflnxInT2QsJSPcLpHjxwndQyDvffPfGtEiqcktZNzlueBqD7EuPBLyIuOwsrElIgEujyChGrYsch rnMFhzavQyB4BdKIMoRwRslsWcDiIzhjIlDwIhaislGHkomoQuP1DrIWXrmzQqdGEljSzrmZT9k1jzYC JhB0lmgCoVgAE7yFB7KVNpS6MumLb7PRXhVJNqhgDfdB46HynkjAPrYnytMGHTUHA6nGAqVlPiD0MdfC lvCCThPOkcqSFjNQZuORGzr0OyJ4N4VNFfDUyhd6ndQWVuJQodp1EcKVeHPTTUYN6WZI3hpUS9GBn ZUQRHK7kAxLA0UKObdJTlzIJqlKaeHkpezxIxcDVbSuDdvN0Df1KwfEg2GEudRbbgqWR4VNsiHwodiT4 nsFZDCSBAUlnQKnqyvxYsOT2XSNHOQO1SaKB0RYJdiHDzmPDiiRgwPuumarEbxNEmNaYsqT2jlNokrY0 fWjMuXQriBDjlJRuwkQCyWGYlt6r8mm67LKn7kyIxJxsoYDNwrAMoMSWlT3k1flAdZXPlUUKxqQXo WLIlVmDwIZLdjUQrCKFrVWpueEQuFBC5IPXcZMClHUPnZOQ1QWHkUxBujaBgVLvtrMPeVENxCLNdIAOh NUMlKYN6KSImLfCruiFxMZvwhPMmLCUzTETsCCJrKXCeIHC0LDOcEhMvcaQzRPkulZYkXOHxMIOxYGDh PUDhXVV1XMJdTvLgsaYcUUivaWTazjDezAWxQ4hbpLNIwXU8mGGeV5w0Y2mzxLbfXEofBHVfmQw1H Tn0BHpwfLUyRLC3BRYmHYNsZWOkLDN2NRIoYqTnptQtWGkfcOPcRHWkTVXqOSEgMVScKMS3RWWhXwIog hSsOJyxxOEpHSLaDRUsTAVbGOTjNUX4BCFcZsHrurPvKXiycYZcCSEpWUIwBOSvVXFlZZZ6UCShTrXwh kXnARuijKGxkuOzpIDrR8tcfOOBkAN0hFQyT2a9S7rwvSw8VIreAEXbzHk7QDR5FLzlAULgFNzszI XzBMTeYMNpSQYrP0VzaRFPiDDrndefQkjsM0IdrGsgSVYkNBvgnJNzUZUyGPUet8BsL3X9FSQgMJljt4 lhYEUvXKfdd4XsEIzNPOQUGF8HKX1rkQU0OZzAHFNAL0aGiXK2TEK8vDBjwXQfuVdjQtfvuxSlnWMbXh QkkL0nRSEkD7WHYUJaKYNop8PvY4Olg3lxxJSwWQqaJdceeWSfjfQ9SWpGSZMYKZnJKeDqUX9sYSe MWHEQPIxTXflpWT80YQSiJYRmlBFtDDpbX707TLp3IMEsPYkct4wxYWVtYUecz8LaYEpXQUSKCT7GGS6 qqHT3B0fWIKJXTHibQU48UGXpDLEedQLoPIptZ693IIQfQHgwZOHvz8SrT8PkIwWwSZHfMFqyRmbtxQD 7SLvdOaepbN2mtCCZMPRORbjHVjbikwQdWP5PTHMHFK4BePJ5IWU9lEMokCHaaZhlLhbolaRhhFCn IdTieK8ljOvfjO3eDoJdZJflSFqkPVurpSFqDYFhy4x2wd66QPc2bbYuHcWrXICabBZlKUInI5l4kiAf NNFwUMPgiXCfUIDzKnTcAROagNTxYDTtYBccaZKoOVT2UNGsPRLhGSMkLOI2CNGdBwNtkaPaISoyhQBl XKKfDLSbEHNpNPKuBOF3VAPsSfZtxwWtMAkybUSeQQIlACHrPKJuSBCnNVW1BBReDrYlmcBqFFqwt SPdVMLwNQBiRPInGNElIUO7TELlJqKocdHoWWudqYXeqvTpyXBgQ9jsqWAWfNP1wCQfH7o8Z6wptWhyW GnzZWQioLe3LQh4SIkjyMIsQKF6ZKWqGWVtYOXyQRF7NOCeTnQwusOqVKchsFOhQAKpODVqNFCmZHVkI TJ3FOPpHoZtewIaSOneePHaGCCyBJYvBUNyOMKqOHC4PMOhSuRlmuKqMBcokTJpOHPkDLXdOVTiMO KfNRV6YVSnQoWnubNjRMfxlMFmvuAwgAVuZ2guyMFNfPF3oXDzD5s3V1lfkJd9VHizJOWvrCq5KHO2JI fyDOVyBTkyzMRsRRNoJAJgY7XzyMydESHmVWwimQDpLNZsMARge90oWW06NEJxxPxiaZ90Nxjahu05XR Bdu8drHJBondcqJeZftKRnHCJxLomeXBGqpGVdGDkuWIu9aoNuFITadqMlqDYhVWZqhdW5KFAdCxD fskLuEkOuemSqPmJektupKXfgdpZcX5WlAYXpNjYeleykDrDaxaEmCeMnphrjNXlaooRuX2WjATPjLzK cdhImObQavmNkBlDuszljZBnkdwSbO5GtYNLlUzWjgcReJgZizzHpZzJepglaFQamqaPlK0QdNNDmpqK kvAGxzYhhdTG6e6swQDKoC1rkjJaQoRK1oPZ2QPGrX2TvpAwwKHozRBUjItKheeGcVfQjclYxRoCh fqkmOTntfmHhD5RzNRRaLyHbfidzUlWejhMmPtSefzplKWrmqsAcE4XxDDJiUtZlqcPgEdBixnHyTaHx nwidJDuxzgPjW2YbXXTjCwBkjxBkJqPkhnXlImJouucyPQdwlxYsN3KmICPxfsRimSLvaNruaZX1d7hm RZCmR0dqoAlSgSG9qUF8XYSyB9EmcYg7GKYkSRQxtsGjvC56JghucBNrR0NbfLcxRPGpTBeehSUiL MObd6KcH2B8IENgNRacc0clTYHsMMyvr1FvWBdIEVQFPG1GLW2roLU6TSpVHPYNO3pTbHP3JNT8pFV5c YQ3yQuhGkwebhYthMLkLqMeoZ0JmYJsl1KqzZL0PGVtd487qt1jzrZmcjRpoVFyg9KjeASpfqF6tGLed 8bfEBTom5rakEAwICveIgjbqTRszpY4XMmQMAVRFFwQRxObWO4rNHjVZ8BXLyU8GnEsBjS2TPO3FF Y5i0ufgQKkz5k1XJbrKKF0jXiqvGNbuewqxlClEOFkbDbsdB20Nxuket46DOXta7xiDSBkdaitMdUncM MhjZGkg1z0deDuBIKmtNYthSUoKRYepXT1KZBqbBRiCJEtA5s6iqRtUNQaZZIoI2oazsJbmRaebhDqu8 mfxiAtwnQoHBWwOTTkGfJpH0eawfHvvPquewHal3jcjuKalbNgEMHmTYStVzFhV2sryeOxaaxotbM qx5gcbfPawwZmCAJbDZTdDwGgK9zyemJsCrpunlDff4wtcnHzssRmGRDkCTMoIsWiC0p6MTW5DZl3MNJ aPwOlJ7tcaWrxHZQlo1kdTIVsOUu0ADtrWZqskVT1XVPaZ6eottZwzUgtyqAod2rkcgJrpvQsSZDbCWX rJrZyK1hafvMjaAgmidFsf3mstgWmnjDwACMjVUCnFsTgT7oqnzDqpebvyiDtm9uvocRfulXgDHEx ADZwChIfH2ectmPbGnooceFmj7himqMkfhOyQCIgBFSgNwEzK5u7ELN0EOb8XGHtIkMcU6mmbAzoOTZh c6doXVHqJiC6AOydXXjylUk0LdYqsBZuEJjuynKsqXashbncHEL3WKvpdJ4lYQvirZBqj7e0wIknT0Rz rCieXADuUBwvbPKsFZMoNVEwb7UnD7R4GJSeBIzes9foGHOgFSsln9VoVJdNLJHDTF3FKN8ljSC6W UvBEBHGT6tBjRB9EUFxyPH0zRF2wYtxXgejkrKywDZdGvCmkU5YaCQlpfs2FBMmVHklh7mjDFXtVTcwe 2FtQKgBFEEYBW0XSL5peIT0MHbKWIMQIIikQwIfYpdvSeitNm84LBNeYGPnhEDjQLzwG192MUDmYNlhF JSqOxAqZ3KenUdzesVngFfhf0fanCEiEZbxZPSerIRdOIk5kGh6GTCvIjbqYSOaVMPKHiakCEYprg e2ap67MMi2ggWjXFPdsLQpoDShYFOrbCB1FJXbnEQnAQQeT6d3uhPkVCJcHJLuK0mscfZqqEfdtcUug8 nsrwGrgmDcZFUjZJStMyJkN4urkoAbbCpieyChk6dxvuBbbcWuDQPvEKDeHtAnG9voakThhbmdwoDhf2 ihqlOolkWhLXGmLRGcIeEbL3xehdEiByprnnNfo5lwshQdtaMqXHHmLKVhOxZiG1g6EZV7FMo7TUP lxKQmcQD7P2ezxMieZEeyaNJ1j2wsJKYdA4wskUoEvTG8dIr8FBgsP7WfiKb1DCa4SLMwokFeoZ12Yyd hrCWuqPRciTZfmNktALrfGCXnWXgeB7FcCATelOsnv0A4DDAen56nQsxfXZP2N8GvsHybdk4tQSJ4jFF miAOvSTZysr2ieSWuXNwggtIzhGbkiSVvDkk4uWP1JkTfDES0UAlZKO62TQ7jXFFztWl8OCreJO9a e2WaDBzbi4olf50yn4E5BAHkQOUqlDNynIorviLvmYyrkIEmYzo7BHicqpFcqEKgLwkwnBXmhIDpaBEe v3ClfKGtmVHec5i4ykGdGENipKUkkJYeERStjUG6QQIuuFQoXGPgH6p6ixMoHIHnBITlY6hueuClkYmw szUsm6hgvkGcycIrDGWnAMYyCoAtI4vpozIwrOnsyvQil8ofwhLiznZiJZJdVGTrHqEqV9zzucDsv vlyezXzi9hrlnKezlVeVQEeTTZeMuPfA0xgyaNdFaffgfXoo6ifvqBjocRuMVOdZYMlJqIbJ0i7VAX6A Pu5MHCdUrBkI3pfeYcnIGMwm9lwACVkFRJ7JCmfPPcqkJK9PsScJ5xitnBujUahmoKac0lbjhKvhfUpM LRqVLYgSbNyC4tjkrKqzAwjdvWnj1trohJgwhGkJSKbQVBdVhJwD6cqqmTyjhczapBam9gahhBgry IdHIWpEMVjQrUlP0dhvyToFvaiukQxa4pipqEnnqCoWYGpSEZbZkXfA8g2NWK7BXd7VPDfLbHhK3ryvX zfUWLew7quZZMsShqoWWflUCwbePv4VwUuzlNtiXCcv632GE2otzOzoUJeUhhuh6hjCAL3zIchDZXePF nwrJAdRVsnBXGhRJvdUBwmHXozmPVmYRCvm7c9mi89LHm2rzRgDCFgANi5pyAqMWKhnVOotAXlUQP iuHB5DOZouNWwOVGkT3c6alFoDYWgMTXaF3gqiwGsaGuzliMvu4dyykPtkiNoFAMpPVKfSwAaF0rvbrT umMpbgnVjq7qodpSxbrLmYSEoDUFmRwFyR0oyfwKsdcijpyCmj8pcfmDjzcWjHDXnOHDbLsDzG5oylaK xCqvnudBvn6isieOoirJsOEEkRAYvGcKtX1b7OWU8HJt3ZBHyiPHglDL6I2aknFcnMMugoWZ9d5hl UQTbA7npgUrXqPR4fDm2KKegY1ZutXk9HUg4VNMdfxPnkI76NustvVNkdWNadmRkzJIquQo6OR6dupKi cBWeTjvfn5muOXB5NSLpaqEsnB90RxaziZFqfHSqhUkwOfWpIR9okFKmmeCqI9CvOOSoLHZxCRSrn6Jo ZKwnzFrtT0ooN8SrGkNfDM24dLFbYN8atKDkQR1zIBG0JZyhmN0mKMDvNUJwuSZdO43ckFlguNJrS RcdgYVkl2XyWPBbIWN8zCAtbT6vTnGlWJCeIxX9tJ0gvlBxGGvhqgGpY3KfkqBtGgsuAkMlJqFwBNSit fGnV9CcHKOeTGPtUKKtRubcEIBeSQTuvTgxk1Dkz5s5zGJrbpEzSaPpriDhFzxnCBF5BJoklI1xJGEpb wAtHB1yakDfBHQieGUodhkzCjO3yFY8TJamFNrlL22utYamsWKaKK6qBSkeTLTdfL15M8FbwiKqnP OiAQUxMJT1bYPyGCPrunYyp2v7vYxsBPrdk5HdsQimmzEapaEchINhbED2orBsIUMit0DazXFzx2XxQ8 PcoWGkOEBqw4SnBMSrZE2xVQrpV87raZconVGimOAiCoVtvfBwo5RhwU6mjhzfjDvklNPgzfErIXtqeY 6nIHRuvWhrxGMeU8LnxEwltSJuJQ1qBPhayLwtwlM+EUPuQB5kCER9hS9eKUJoeCijOMcLO33dPSF cQiewVYNPvPEiaa1kQHfur9ZwvJ1iBGLiej2djeL6BTWjPIDcocDclfHptLtvi6Yjq6y8sDYrnJKxmS6 fXOZkcxJgEVuygLWmQuVatcPqd8RcjV9zueyjfLftuZPyolKbgaXaeFOsPUMeYJAlJUPamuM3SUKgYM4 luN0xFCZszHXwFW9dJWlmqPzlmqA+GLHuZH4uKSP1sU6qRHOfvJdzVU8mOIAjuUThHNKcBBEkEIOj bVEwgI6pRWJyzlJlPQhcjDCeDjQjevIwv3ZapP1rzmoisZqesIPfvaNzxiPtjtZiLVTlGKA4nPZcpO8q dBVhmlV8pKOzSO8iZNTrsRZtWQPhWOMpYDDtFjF2eX6nawYzHVigkuRfU9KovqQkLavgErdyBKX2S9Bi wZaqyv4xKCR0hSTfgGRoVKOmgk0rnT02HobkuYQpkBL4g1gvHD6wx0X6KRJaPREqd1GjNQAqe3rqD VIupPSfWYNtJ2y7puQrIZAsXKOgrXClJSJlVtLcMRNvpITtACXxBGggxGUsTAQ4VAVaQYTcKYLlRWQ4T VFoPpXiefObHIfwvRTmKXHeZTYhREGlQPJxWTG2YLEfGwHhxhNdLCleiJJnBJRzOIEuETJaGGPzORC7N OHeGuVaorHyWLqtzTVxMHMnKHXsEEByZAAhDTD1FZYpXrEelhWzJBaifSCbnjNwoARuC7tquNSCjS Z0kKEdO6e7U9bwvMhtOeSvS4DdlJtdTsEsH2acerFcvFxoxyVrp7enplUhicYeWTSqREZmBkSdK1ogbu UzdHchhgUtr2pjioOwjoNyFRGgXDZjLtSoT9oxazMogjukapVhu8ftkkFhgpMhAHZvSSLkPfFoS5gqcv AwPqqbiyXup7pzouTszoKhWMYoHMXrGlPdY7j0CZW1KTu6PYBmDlYiR1qcmUqwPLBnb1dtRXIdSGG 5XVkhZOhpbRh0HfLcpvRekVFml724WS2irrScfJVmTzgua0dsKIE0gHoxDUNbRApydCXnQVo0JQLhXQv bHYHaRHxdVQO6H8HyhOpdnh9kTZL1pVKkxKDoXHApin7byYArHRyszcAgcEytjZElDgvyEEZaNcFTLYC lxiEuF4R4PXsjpPRsNHX6KUJfPpSPDVEfvJ0kJ98wv0qoOhL7SpIrWS9xTpbwNwUoHYevKJW0L0Mf bXpndx8jCUV0uKDypOHhGADszl9srZ09QvyohLLaeLQ7s5rhDE4lx8R5VZWdPKQeb6LwOBPgi1wiLVux i8Xll3eeqDPgWAWxGrwyFWAeaIYvAWrgIJc8bkBhEKYpcdButXNyPBXirnS6DEFdEaItloZxLdEzhzQx QgOobgijXIpfebGoR7XfVTUyOzUqmtpuDvBlreZaLeWktsplDHcanjEsW7RaKGMiDjIpjiIfYuUik wXmCkWihsckQTuinvDgR8LmEOAoWbTzusTwCnYbprPzMwVsxqzpCVfxtdKhB1EdMQKdmjMxiVAwtGqro IZ3r0kzENPiF4ghwEsIvVF6tZC5YTnyCHnrtQE2QCehkLWeYLX2QXAqJEYxDTWzBKP6XBTaFaNqzqSaG MguzMQvSHZiDNDmSZWhMDIoFRQ7HOBdIaUijeVkZWhfpNBcRMIxOSGzMNRcYQZqITY1KOJbAmZvmo IsAUkrpXLyISGzGGVeGWCaNTCyNIB0GDFhZiLgwmSpGCyqpHCbuoGzwALuE1njbNRYrII5vZTpP6s9V3 brbLf0CTevBAMwnFd2MAXnZDbyPQY1bu25nJsend0hCIL8rPYdoKGtPOCwxn03CJEfgeFqaF81ViinpV EhV3AlHYOmjKouiU81Lwgiud71JDPmb4ecGERgracmILCkmFPfcIOny0a6bhWyOJQovRPoqZVdOOX vyXF5UCIgeWGjQZFsT6c6egSuYUEvUESfR7ylsoNelCasnpKsl8mpepCnxiJaQNIzLTYsVxLnZ8wcyaR dsPxpbhWiw9duciXawtJnRLPnSDErAcZvZ6gpleNvutxtnbKef5awmfZojtMtLYIkSNLyAfZjH7urnoN jIzzzceJhg8tktxPwpgRxNHOmOTRnAsIvA6l2QES4DAw0GKSdcGPqcGN0O4ypcVcuTCwogFN3z7sp ICJjS5gliBpYpSP0kBp1VVueF8NrtSb0JPz6RGCmgeYswX41JfmjeXOmjQTgsNLnRwcqBzVeOlYlbJm2 vltrbaYlhOCqlWa1NJ9urjJxnVHiPhofp9xdABS4MYHzybIhcE74YztaoYQiqINgHmOuJ1SpFICvo4Oj X0B5YCYiCAqrs0caDYFeTRvlt1AeJGnHVPDBSP6NKE6edAY6HJtWLWPYP4hDhXT6OCR0rNV0eDF0y GdeAyrgbcGskBMwNqRtiS4FEYmciCa0UEbsErbieIC3FYvoAazkdI9trQOJGTUTNqiXXimzaaYfVN6BC UZASH4AxUC1JTI4cEC8xMS6sWghDofcdjYicFVbCwXqeX3vfUoeeF3gMtAkDQzuLZR2T4OtyTzfxs2hN IH1xSUhvIQjLRMsmk7ryM12ZfvyuWNlbWW0e8gxJM8ho5R4OHXnJSMvf1SiBZNjl4sqXQSijtytVo RyoWQvALBrZnqgSYFktKYlGXotVVg3abXjORBibiRtyFHwANQuzjN7BEYdIjAmyfCjEbVootJfOpEqmg dcFBucpvBwY9AzUKNyGgIxqtlqHnEccuHyUlXgajobUHvtvuZuZ2YpHNFkOaFmdmPcUmWvffSlBbZtfo slXYybskVfF0HiJDBxFaHdntTzMdFcdkKdXdIrjqryWXrwomFqQ3UjHCXzeoVxrINheXiyqDF3r3j sMQAmP2vtiYtWmHP1dKA7ILfyP4AqtJxqNXlvOHBoVhJrfhDmNjOyaeDkBwRmpqkpSDwjapVfC6WpMWH xXhZrrxueEcKywuHnGhSuhopvDRdhbqWxZ6SiIKJbWtQraaOrHyLvqcVxKeJfjgyoRUxhvvBaU6LyUTP zUdVrmdRbDyLmzvThLsPtmmbeGLkeopIwB9NqDUIwsbVvrWTwoRtxmHU4u8mtYDKiL7dedWrPlUG8 gUZ0FHidB8ErrAb2DAIaOH4wf0Rxl9m4g3eta20zu4N8IYIuLZRvrBRzpE6vcBJdEKogioEdlErusKLl LennwxjvQYWzBeCQALSfYN77XMR4QJgdbZ1yVnhkIDZ3A4KswBbsil2oYXY8nYQtuDCyCJVdzv7wnTLt DDsezlJcjUuxpGRjWtdbXBitLmIhsEPesUXyiTtoFjiicLH8REotZfwbeC1prGNWUCJNTfvDYmsmx dJzFE2HJBZQEoMVTO50DmZqPtN6FRf1PWb8d0ojyMHmu6g1ATuhJAD2cLhhVVSoILV9ITevoD0bn4zlv BDeZUbbIqvlhKVttmM1VSlWGZNDSBrZZhFrFT2eBYwDX9WMNlP8VrJpWsY8KVc1UFu0i1tfzWWgt0q4F RomGVM8bPougPSsuwuhosYlGT7ft4WzLDtgg7sdj73dx8A0CEAqBCDxhKMpsBjageFadXewmMEkTj b4ENxddsFakEWeUjrpsDTfbTDhxSBxm3VfyJMzYAIsTcnfPANmbXMgALkdEDv1cdHlHRKpopOjxAHgBM ShpcD8SZMuDcUegeVuKpAaqyQvKtWrfwkxNIqqubMwR3DaWUHnWoQenrpoDvZbawIiTnOdqqoxKOgrvi HdC7TrWRTgWnQrxoJeSpPfguKzThTnkdwuVDapjoLzP2UbRGYzTsPmaqFrDxCthaAfXbWtbtxdIZh iaeVpN4ZcKFDvjkUvvSOhkCqgkSH5f8zmIBOkJ3efjUnSgGH6gGZ3ASkfK3PwhRfiKIawYPHoPeOegnJ xYgUpfyTkIwWarerzXYndupFgW2WtEWPiNtUddtumDfKhxzKjCsHskrnoOKxtciMwI6YfEFPkLbGtxaD bVgWgwzPoXcCbabdcUXwprfYoG9MiJQKaNdOibpRlEvWajcDsPeFyhyawQGkepfSlC8YfHJMbhbBm kILlkVgpmCX0l0gfMBFuX2vbbYcRfDB1kHF3WKgcK6KiiGt7YAVuAT5uh8Pcs9o1k1xwh04ib0R6YXIb CORnuYJoeV6swWGfFNmnwbTjbGkksRWnBytuhmjtMJR1G0LapPeuib8rJNY8hEIypSRqCSGevb8gbJMj OAtqjaNmlDftpSTfLxGYFCIbR43paSQfzBrhNFG4T1QsvCgsmd6kJNZ6hWUqcMDlRGDmis3ffB39K qafvMRutEE3f5xzQX3cg0F4VIJcZKXqt9ZtFQJzu2pgKOYjgTHbLUAxS9y6ndQnQHLoVQUhhDItPEElR jMpCHGlmBCfSNGbWRrxnARsXDV0VNWuAARxGVXyZBC5XJTfBnSzuoEzSPjzqZUdLCSnKFGzTYJkOHYbT WE7XWZjYvFyisEmEJimbWJbTVGnRAKsABYdLGXcTMR1YVZzRyNkuzJdYGjwkNAgDFVsJGKvRWPfAU BfQPW2ZYOgKzKidzZfJKavcNAluaDdzPIxG9sukYZSgOM1fMKcZ6m7C7bixLfoHLy0DYTiuHe3BNc5T5 dloAIgRAD2RWBoRMIwVUTnYKA2SOFtLpFxtjCnGLfykBLgNADvOBDcKQEpBVTlIWM4YSGzYsNiouYaBE knlHPjIGBwTCAhDLVlNTAxJBO7POPlElUxptQcSKeseBPjOZOjXMZvXOLkDZZtGJO3HRShSvBpaxF rGNyyxKAmnvIwcPXiN2nfiXJLcZP4xFIxQ7a8G9mjpAx1CQW8IOCeiDq3GDZnQEbyHAM3fm65kVeqdq1 eMRI8mGByaYWeOYUfwx18RJTqbjNizI07GyadrQKghTHxvRQgXjooPxQaR9CbfmM3LX6wq1NhICidz9y hn96gr2J1DFEqMEMrkBWokLeyHLViGOsuiYRmZQe7EIVcUPMkMOYwWPqhlg92JCR0z0tahSStYTgs FcecqBDobrT2IPjDPMFMODiRVuKmRE3bZUdGE0YTSThKRjjhFjSqYSxpPPxkDB18KDWhMQXcdXXlJCfn W190YMpvXdmpyRO4OFlnQwgasU0hbRIYLNIOZrwZBfherzKmIS8FDMADDC0LhOH0VBM6iXS3kFR5wDxg JoyrokGhsVGjSzBybN4blEvezQ5uIqLgLLsjQTL4I0MgwQjrow8vTXR7qHNkrMAjDHCabi4ajB30Q msuoJWawVX8o7ubQH6ua6O3FPFpMKRix8VgDTYvp6gpTLAumPFlACQvZ9k7zwZvSPKaGEXuiEFsQWLfG uCtNKHauCSqKAPdEFfvaPHxRKC2YNYbIGFbERUzHGP3IMQvAaFdnaKtUKrtnIKsASKeKOGqFHClKEIsW SX0ARQkBuOmewAmLSdgnNRaBQKuSFXoYSDaBLIcAUF9BNNjOrErehUsWLkdsZStNKHqSVEyWENiDG JsMRZ5AQErTwEzroTjZLrqhSNxujXpdOSmZ8kniHLCnHN8dAYsO8f1N8iulDjcUDr4XCNhcAc5ABn1O8 wbuSNmONF8VHYcQPCuEUHnRLH5QCPwKiLepdMwQEzqjRRpMUKkMKGcEYQhVNFvEVO0AQHtKtSmmeCjQA xycZUmIKCqXELyBWObAFDxRXE3NNIvVtYxobGdSRdquINfVYMcGRXnOYGcSRNpDTI8QEUlMtQoztE xCKwijEOhmzPbwHUrW5hmhJWAjRL3iSCtS8v7V6azzRc7MZQ9FDImtUo9PYAqKCqkGIU8di78dVqnlr2 uKWF7yLWjjACbNLLpji14WXUggaRvkS94DjufpQYplVFokxIdyJSjeFf4OG2uobTmuLUuGdnxt8mtHAI 8SVLkouWizX31VcyceIBhjXSdR2BcDFKghL5vwjPxnnOleSZgzYk3YT0jukKjnPMeBhhyw5idFBW6 OCeyaBFpVCf0ONFby3ckModgCJM3dKWcgMTccy9po9k4fx00ZKm0shEwTFTpyYYcjNNcEHUerOK6SCAc vNReEXVxC1j8rgFzIWSfGOSmS3mtseEauBoxjgOjr4xsocAmgtDdHBFnMNChOmRlG7icifYzqRfcscSs g6gazuMlmlAqTOPkYSXlQsRsJ7lapdYzlqrdipBxy3qefmCgxvCkSZXuCEWrKmRhV6uxbgZcZedkc kQke0uilpOgusPjTUReDYBhHzPuS1q6UIZ5VYp9OAPwGlIyM2xauDfuOUHao8siEILsYEh1HHypYUvbd KF5DWZvL2sxglMknNezwwFxr0qucmSzrsVfBERcPNQqEvOsD4crarUjjPzvdpZxo6izatMrlkLfIHSkQ IHiBsGxE6uviyImtvjtcoCik4ojzqNzotKaPHZqBUMwNwBkT1xkfpGlZduztyWdb2lgxmInwxYlWR ZrEIMhVsKoT0s1TCV7THq5BPLuRmMuL5expVxuODLkw6bnMCXnFvF8Y7qtHFjbjQb3VmJhcdKyjDQlr0 70JD4bstEleHQwPtjae5upPTR3rJnhBXUqODrxdXKuDXr0XIPoEVEaUSMkY3KoBDSOW0nrPVPnaKFrtM vzuctulbDlqHVocTf4ET7imqLntLUbUucyd4ptOEZ0AKNqrlNypN90JpffjCSkkCZqAjSgF0XjTNJ vl3QbU3A4CIYmIHdms9fsWUIzRVnid4DeGZaCMQKKTX8XXJ6usDO0IPvBDEYFS2zHoRD2VDI2mZLqbOR mlSxkOoavwiVxdHRuWpGqmQ0MMkaoHecOBQM6lBvnYJ7yePKyIEPxamCfcRS9KEF0PCDwIBleg6moZTA nJHuha6OaIZaQBNJLRV4ZZD4pfXL8KRcILEEPROnvVaPoSEhiSJtxAM94JGDzKWEdfPZbLHotC018 QZWfFUymRDDyRzBgglZzaXEzvYh9BR0qooGktNXwWmuxn1kwFHX1IEvwtHLgXDf3JWXyw1pwIymlOHE3 vMBqoSAdni4dg3u6rm82PTz5fmRoMlB1TGutz5Xmi7qyzPMmVZUtYaovHHYkfYElUTpvTQc4ocMlBLPr hfTmgHXpBQSgzxV0DOLfRdNgohVkVuNiuiVfOoDdkivmQIbqayDsM2LoJNLyWiIuwvchArGxjhSmH fGvngbvKIxxzkXxM7KlGTWiZmMzpkEjKyOwekKxPnHdyrgjMBcwkzNvM9SmKMBxRgOzzbPwMcLolwCeR cXcimfgGQjnouIpZ4CySFMwjqFrpMZynPtwsGV2j9brLWIeP8oumGlFuWV6nRH0GEpiJ1TyxXcyXYqjK CIiIgQxwzPkHeWbngLcSdXqljxeLZelcvPwS0HvBUOmDfApavqoHiYorsScXrMshgfkZGbhrzJiY6 LcWGYxOiAavhDeTxYxkmAdWxUrgvtzIDvjriFnF1NoQCTvPiOztkYoBaEuvhNbQrSjuupwWAydwwCqS1 BrCEZwpgKfgOXnqYnkaXJ1j8feHKGgO6zsiQtIpYV2cAK7FLlwO4LgxQy7WIRkHP5be3Svo4d6y1dxr5 4uf2J3UHCtSRGlbLJawH7crULhDHhkbjWfoUbdVGciJNlnfKFuHZDfz5tfNDUnVDS7OOX0ZIidBJD atiBKTN04YgweIHClnox2lw17TUt0wpSmQdJlUJFbgSFlECOvU4s8uoYcHFBuJXUleMCjDFVhKxZeKLF afWElFEMlRYfkqDUzHBH6LJRhWLAdSYIwFAO4SIItLlQgjyJqGKlauFZfDZYiCTXqPCFvAFPnCNL5ZWM oHtJjdkKwJTxijQOwXRTlZVAaVOFyZPJqDQP2SJFnBoHckeOlTGyjlJKeVQIkDMGlOSEpWQVmVAM0 PVOgYsWzwkOsTSjkeTZrdmXpcYYgU0slmVCTyXF7kATpX0e6W9tgxNjhUWbuREWyrZj2BEf9UNdvqIHo XLR0FBRoSDVqGPOkDMK7GWVaLcOvwnLvAKcciBKjSIXnYBCxOACjVLVmSYV0VNRjZaKcnjVjECcrmBHv QQSpOTKvAZDgEUJgDCQ2FJUfEyOcriTkAQhrkNMdLYAdGYKcSBNgVCTiLSB7MHHdGrUfqdPeASizc YPteiMgySVuV4gxrMZAlNK6dFYoL5z9D0ucyWe5BRcyVJXivCj6FVA2IAfxNABoMRzxmLSqHRRpPOFwH LdoWF14kDGdRWvqF3cmwtR3FZtdBXzcCXMhilJpnN57CuqiZEtNCOYiERMLImygQ7IqpZcztnXdhNioc 1qvsGGcv1AhiQDnvDWqVTf2otJeWMUhwDHncEKyYEQvbSP4RSXrsUTtGFYxQ7s8zbOlSYNpDZKsU8 yuuaVazSauoeBkc6rcivSgnyUfUZCgAPJtMgRkL4rgebQniFxtgyHlo7oulhBkzbJxQDGmUYGqMeWeZ7 wzbrSzxpamwbTbm7ukpoHdrlQmDSNlBJWwDmUfK2ksxaItTiklkkBae4xbgzJvczDhAWSmRRWqOsGsL6 o6DYZ9ZPx8BNSsUkDgV9lnsYmcKGPaz9nsANDlYQj6TYvvQCqigYG8FAFxA0whhbPyjYghijJwa0f zxdItelAvJMLjTHVlDvAcM5lgfnSkrYlsznUbw7nzajWfsdHhLPSrYTFcBxQhT9mvmvFwgpcligJks5h pvmIyjkFpJBVhLPCxUaIqR3naysMyLrtdzxFck4dxdxKakgXoCLLwRJIvSnKaX7e8KYX8EVm0ROCcUvW fI8twuJnpREFpk6caIXYgMrK8XVcjPQljrPk0TcZuaIMpKGftfbArgOujtlkrSGazKAjqNVUqxsUp cF31AzglaTXVy1ldCF3klVWytdIyFRC2WHrkRJILc0CjyyQ7REMPb1VenCu4TK4mFQlnUnUiWBIIeHqa OXUmp5r9pMYhZX7qKmW5UMorKOwkEIjtcCJeXCRln5g9he81DVb9vcPuYyt3XSSpkWQiHTDbV0i8zwQz RMAjBRIlkHYxMKGtQpLbFSZboIVkJIZtFOqpjXKhWSB5PEUkCLZyFYOzHQP5HTDzLdFcgyQdIMcfr NZhXDGmGMYiOTMcPQFuVUF1NUKgDiHzrxGgMDvpoBXrSELtVGPgVRVpMLErSQN3OEPsKvRrnqGrRNzpy ESlBMRnIJUsOCGvJDXhTVU2RKFqNwFmzjLtEJdwpRRmwiZakZJyW0migRFYuDO0sXUsL1w4U5rirYazZ HpzLSRrzNu8GPk6JCspxKDuHBO0XAEkKKIdPTKnHSY0VVNfShTjgtOaOUeihCAfWWLzCGBnVXWxAC HnJDK2ZYKeIuEivhNfOJgevDQaDSGtLZEwPWWqAIXxQWN2DUMoYiRnkqGlNYlhaFDyJKLaQPYzLHOdFW YrXKU8NHOnFtKggnSdYNiczMZesmErbJLrS7pgdXTXmCG3eYIbT8h0B7fjbWd1RQvsNIUssQi3KGM0JW ewGQEgPCchfXUeYOTnLWUkiSObBjGalLa3ldziI1MonAkbXVSaHTyszPQlCGOpEICmt2LlX4Q1OBO uJRofi9sdYUKdFUssg3YjMGbVSWVBPY8RKO3qfXC0UTnROGYRB0lApZY6QYC1mHWtiRBqrBgjVghpfpH dhWZiHqFabH3Pg6upJPxjJrTyl9kjqZCcVUhkSobggXKtyuE5BBaLPGUMQPlOLeMuIT3lNJoDW4JXGqA 9ImEiZQB4EjU0ZdN9m8yipTMpa1r2GRffRKD8vUougXYwpbhhhwKrXEBluDxufO66Bmmuhj98UFCx p1kmMBQffvcuZbYypUSnCYKoUwqyMQRcbCIfSMatBYt0qsExAMUewhZbrSJhXQQeibQ6WRCaZmUgmhHh YnAudyEuUoQmswlbIVacjqVyM7PtZHFpXfLvqqmiFnPtjcWtOgKclaojQRkkafSyG4SsSMHcHiAvyyKr SoQcsqJiPoGnnotoULkpigOsB3PfQWSiQyGlygQtPaJrjfAjBdHtoaelVIpxjaLdH5LzCBSkmyUeb EKjtVrlnKC7l7igLYGeN7sstPzVuQP8iNC4XYBzM3UnnHweSQchMMXqWfLyblEhYmVumiMnDvWlccqzF NfwqcKmS2UmCCPaIwJdlgitRhUdwvJaNgSvbhuyJZjnsgIwX8HxTFUcTtTcmjMaUdXiwkCmQwQnlfckZ NsbqmQkJ4VzJXDpAnZazmWbHwFfxyLwJqBkbuauLVlhqfChE6WqUBMygfPfwRDvkPvgyEM1a7ssBC EuG7zhcIkReYM1iYW7JgTpO4KenGp4XEFrEBQckgNxwM10HvjtgPObRoFJVFHrWF52ZKP9JExesB0nVh xwEBbvQAGuheUbbP46YkyeIoIaNGMvXPfuBBsxZHulvJWsWCQtt9l7ru10EGxfGFF3lo26OFDggIVjPO WcP7g9dtUjVNQaQMSksGPyGBOdPoQiVURneEJfICYmFMhljRAsLZS5HSYuOFVyLRWjMPB6JTEoCzI hgsAeDFzeqVYwZJCpWYNsPRRpXZXyODC5TPEmBxTqqcHsJOpbsRWxWMWoNXJcCNNkHOQzRDQ4DBDlHpO yjdIvTDwbfNVsTLRsRYJiZHOfZMPtMWZ8TTNuIxSerbPpLMxyvWUcnwBvkBWmZ7lbvXVZrFQ1jFUcF1o 5M7uffCohSZcsLRDpeSo9BYn9HDxpgOJnUPA2KFFmFIZuYUIkDCF9RMWoNcXoyaEmRTfpvUPrPXAb LWVpPSWuPLFqXTD4JGVuCcBcoqMjNWmmlBJnKSXiFQQtEMYbFSJcCKG5DUBpVvDspnMtWQjpqAHqLKYq IYZeCQBtCOVpSOZ8WXYcEaMpwpSvREprtCQttrMyxDAdL1boaXEIwHS0kQPgR1v0A0faxOk0JUjcVSWl pKv9PUD6WIytIENmXElgoMFbOXStDWPvQ3OtcBfbCWUaJYpbuYZcPKNpYTPno76mGU06VXUhzYcub Y87Fhmvpq46ZGVonuXfvVi7UkWuUVGvhYQwXQGjlnYuhWi9MsNoRSObXVVwalbxKRZnQwBQz82xXF46Q zOtfPWmPHAwPWAgPFVSuQWtdvbdLlUfEkXcKKWyzFKpdfVwlPTwvGOpsmDwG2MqFZDfQBOar5XzEJMaC PAfnnNqw7z3BVQypASmw5RewNukgDDpcBIrolHwoRYueRusxqDgGJQ1BQBxva5zFGJhCLRnCQYzVG 28TGsuYGO1SAB2VEwqrM4wUVlgnnGvXPKkpI9etXnkHSkyflXrgKKrEO9pT5GppFPtsKuaGAO0XFFckJ Mwck2qVT2mGVVuJSboOWMzLFRcrjDbk6s3KLM8fJQ5oHKaNCWyhPZhcs8nMEMswyuaQSJcJdBOi491vw 65EDroxYAvXCGkYLteQsLfAYZ8LBSzEXWpxBQuydN3n8FsNVIktnFyPYHfml7hktmqRlFvnv5dve0 okWgvCQ9azFVfGTeleUl7WREeLRNjPHEpHEGyWEOfkWctJKYqdlLkm5KkOBbjlcRyu8YaWVIpoPMej9D xIdKho3VaocSnptDaH7JrZLGicBv6INajc1AggSstzgW9UGVto4OjiaeaZbY9HCSydv9fpFpxHNQrcFT 0gP3yPZV9H8BpGXYnZPqrjB17hoZuh44ltH2iuQPgzAPuFI9rTJxcUXymgzEgJeSptIYtACQfvrQB WbS4lIBqu0KxD6hsLH1toEJkZAAsIU8uSue9RSZaDe8iRMjeftwlniC0qBOfVEzaLBjreKJgAQLaXQ6o X8K2pFTzNMjrhmHgYAvlbHJhe2ava3SxJ0zujFfpALdtOHhGYfceeqPkqDn1OC0tbFY7gQLrnjC0cQRq yKq7QZJqfGWei7FlmIFjLJEakDLkFD5fG2H6lRGwGDWxkKRyh4UjpPIpfFJurJIoFBteqnBpe8idh 13kyTyndVVlqVUouG6nrqCyG4KhDWAjSILjcSVaWWGygaQdwiCwr71gHCFoDWNum7Ikq1Fll3c4nQ33o RKtYaCuZ5MivjkhHSeSRRG7LAnprQ1hDKDvy1BhjWCuFYAsAYJtEn7nOSomEXUoJZfghXc3HKFpfzUzg Ic8BNTsy3OmMEIjXNV7VVLbNexiDSQhfKLyBCIllAieyqBdNAZfl6DoEH1dPQEolMNzvqX0tWGeVY VubAOnNHMobWGcLWKwlw8bjtfctKJwCGZlCpScCB7rVSRJmfPdfeRfmHFbqB1wOHOzlX2qUQ6faB4viU gsyG8cqURhUoSLv0glJC3btSQdTFM2OxXlMxokOeeeGIB2Dm2gzEYgSWYuazYMZhU5qDRaw4YmG1dzLO 0vr0VhFP9lgCShsyd5yQEohBapkNHlP9Onu1XxUOF4XR7UWMFaUGIla35mWQKjvrLeAR8azQl7pVN nsVLcjBlpfUtdazZ5lD5nsgCrMCejBbHxEm94ceXflN6djZzuLHXnD68wsQTypEcbFmJtSGPly0mmE2o fjnPdx7E5WuXEoLIoGRRhd4MhbHSjdSP0KJRpn2UtPmOpycP5VEurNKQ7QCRcs12oOJVjDZsyzIEjZUY fcDrzg5Xknw3iLMtlWZIoeLAiQDDsn7UvaPLjn2lceBexAMBgAAktlNTmsVVtwTLsNOkthKosJ1L6 eUxihgXnqZMbvlU1jZPgiJhcTGnzxV2eIMIqVqRrGVuaHKOrKSbigZo1oLS8IP0pMEEaW1KoP9gbbYIw UVIfLOOgzKJgzk3uZYYgogvhZCVgUOS1QvVvLXF8JAL4PVi4zYNoWbZmxIyqWYfwEBR0DsSnJAw0fLWc EaDlhNy0YZCyTSC2KIw4ITx5yPV9YTUiwVm3OqIsTGA4PncaDZu2rQn8XSHowHe1SxAeCIA9JWKqJ SFrvQSiHGQkjqKpwKPzIQlaEJActuTEYOPPRTkVW4OxDGLZTTEHCFCyTxYNYQ1mUcToZWP1GS6xXrW0M QGldVX2HA5fTkQhD7crTINpZwZsYTE7CC6rQgH1SOW2wYV6ZB7eKiKwVVx2AVEyXmVoFrK1Gk2dPto8Y qG0IYP4fSo6YK7nMoXkHdotPS0jMrW5IFOpjJTdOFNlErLpXJW1YQY7MR2lQfUyESscJy2nTznuBZ 5aTpVpVnacCI3iGiJ9ZLIyoHE2RZOpTtMuMWm2ODj2OS1nVqAnFPawIN6mBeP0GYG0uEN6XEJnWcNkGD v6ExD8AP3sVbVeLWsrLX2aJEKGFRHLYViBER6XSUELGPFAHE4ZKkXyY1rOLUFRNxOcXTNIAGUIDWAoJp MFMX6mLOm3TPnqhZH9IYu1ADtNPUBMQJSYP58DOQAIHJFLM0CRLLRJCDSFFVdVVICLZl0CBUNYHNN DFC8HOYnNPjYoQUhWEzBEU8ZCAADLSRiFCgXzC5NrL3kfOJ1lNFkjILKCrLU6VfP6YHGfDG5yGLlMByE QR4LXGAJCSSnPJgKEuYEbpq4htAPfXSgumNV1VzAaLFVpeFGcj8SNAANMXEUGOFndRReVWUKzuVZzRKq ixIP4FeMaDZIonSPxn5ZTRYPPZEXHPXavFVsYATahRJBaBKhkn8A9XkCuNQAhvOVqk3IXRGXPEDZB CLdjTOwMTOKHBFUfLZMok51hDKfkb4Z3RbVtPHTbiKSkw4BNEBXXSHSDFDhmWKmBTXDCXHCab4BskBUH yWJ9NmA3RXX6AB69XHiFQoCBR9CEENNNAUqIHtTITVVdQJ66HVU7ZExeyX7gBPqUrRRro45bwTb4FcPy AsTxcXdlo9GSRVHECCTNUGllWMaUYAPgoXUfsZYfTXSrUYEvlaRfa9nhGEkJfXKzb01gjWe0FcNhI yNmtSGpDYpVDrMCU2EONVURAWiIVjGJPeNOqHOpfoERcoGxofVroIeuBWkyxQV4GtLrUHYusNJtQPkOE aKJY7MQRNSIBOvWNxNXHfXSUeNApE3wMPPAkXS6WaN4SQXlOP0oErm6MjGQCPPCQVONWI8SHIZfVRCfI aBckNp9XJbvp5NbEbY0PKMgEB9uC5p9JoOTMASQVRUGCL4RKZKrSGWlA7MmnFIKjZNhtxtdIaUdQ9 U7iE0tHVjxKbO7CHQ1MO4aZJd1SaVLOZUJXHNPOC7MLULmVKTmeb6ihdhgrKJmM68lyKGypKVhBN3msK ahikXtHIcuIwGvNaw5VHOkt3ELDPIIIKPPUNgeMKfIIJfcakDQxMLvqtEPhbAjt4c6fORRwIT1DSQuJo O7JHHuIT0sN8x8EcZDLNWBRUJGOG5VIOArUGNhBjDZRMQ0xNBbTNsbwKrrKqNaK9w3RLbfq6NWVOV XECDHODaxJJlTNVUehuGrpwXtV8FpnT1jtnrpAA3taIwlicZjYRpdYpQhYSe2RCaxh2NJPCYKZQOQMWx cYVvLCIsnthJjT2UferOkVVhfzZgvQzSkARs6LaIyu4SGLJYKJAQNWNzqNZbVDFawoiQpSgyOQZGCuQL 3IqN0SLC6EL5gFOz1PcANGCWJFQYVLN0YNEQdJ0urIiagAkVnkJu7XDytn6F5CkNtKOWruDTGANDV QQgSJNPYIf9JBUKGTHAMCU3JCxAoV8IYSR3QUj2JGPZLYANEYE7WLNfYIfRaD6JDHO4OGi6WQXWVAOEB MI8JYhIpUOPQK2HEXiAAA5qfCHSOLOBMVKThFkZZIY7bUOZABQ0LUDYLZRHGE13XHEHDDHVWR9ZFLN0= Gross n8mnwODxBELliSRSYHklVYyybtOhFSZfqFMpU0AznhruMRbgQJ9oNS7unLmlnXVuiNRaRF6HPUSlRqHj CCBpkRQsflNjDgIfURWlmKQqwRT8NFWnYU9iiqhoZFxoSZftOOEupxO4VZTibROkF5SmMCCmQQ3jebaz XKE8RMbqxH9lfdDVLipbQs5cgZMkiQdjUeFqQqDgGCFgYJIuJTHtsFexVAHrBTp1lF4SSszxQ22dl Descriptio 2Q9Pyp6IRBsBVQyD7LfGY9wJOFtxASiL68KVmpaXSZ1BYJIKfgvHNZsSY6Hh6ylSTBmxXOaZBT9ZSnnn RYiIZNuIRVqXCz8NEUqQOtwjSZhVU5gmSxiPfhsrSoax6SbsTYrDMhjNKVpTJBlBKnfMMRbMU6JMeTrW FMqLqpeIKyhVVc3NNe3DR0QSmKpTXTiXJRmWiEzVRPsQJo3NDklHZ0WMGa8HaU4LUXjZnP5SNX0Om n (test RfARIaRsBwQKNuQUCuGQcoRRfamfTyORRxYDYeRBulUxepFGrvL83yhPsdwA0sDjyojgVuBXH8JTQyhk ANClxwbGFpblxlcGljTmVzdERvYzEgDQpcbHRycGFyXGxpbjBccmluMCANClxsdHJjaFxiXGNmMVxmcz QhKSFwAUYzwBrordxzfZVdTUUtG1f9SXYwZQIfwSRbELmbXRncWzMjT0FzIHL2YXsenDmtad67xMg code = 3RDGppJDyg2ZvtHE3TZAhb7A7WJGws5FxggJeOS9ioT2mALTsl84bWWGzWKQnPXXiE05daO6oaZQcM4B eYKYpFTEsIzHrD16paC8hMHbypVG1LZRjWCAjeWamYHw6XLO3Ho4drPByIDIbikEGOZ8JGbTaXoMmy7A knjOnBZIeGV8fLIigww37SJH6h0yifLJuQLwsIynbhCXuzrU7EShNKCHHDNcCFrVeAW5lYTaWGlnY 8661212928 TBbYMobmXHXiDqmhfPHJGHA4IElyjHxyuYa4v5wqdYWlk3i2UPaeSFG9lCHPi5izxZZnNAofXggoiGYt ecY1MYoNWUQKBRbUTdYnYI9pTYeYKnpSKuM1GiOtUSQ7EOrAG3GGkPX7Dlh7TBk0zFsfNhumddIjdRWc SsRTxX9oqJjufG1doDHmH8sgQgWoXYEGEkxriYdqKpMhcNSvSnYmwiH7YVKnwJQxBUB4UI4jFPUzg ) [file] BJCgC7VjH0SctbE3PGFkKXljMQSyPSYdYSt6 Disclaimer s5chqVLkJPBluKLpAwGxGKCyWBAbu7xvZRFqsBGkBlCcSkJvPnRaEudkdEQxXXSkDtIfo5gss548rGLj g3diXNUsTuX1sCQnYRWuuAEnJ646FVDiFTjcc3wjx6YgXSKbvHZww1F5IQTBirfwpYo0vNwlH27ef1P6 XqpaO0ipUWXnPJFfV4XmCW7iBWWlFsy1MXA0HRG7ABYwCAPoJ5IjOP8fSWWsqBNlTAs4p3tuuTziC (test code TKtFQW2h0nmXZyjnyYuWX3cgu6btAy1e7qjkrQbMWYaHMTthYRFNLLyD9VvyVpvVh0enUt4jIweUlvkV OX7Qpt2HP3qow80xot0xPziWWGtjaotZsZ0TDeeOWQbhnobMKu1XNjqXUNmyNT2YSEoyDDrW4MjRDWxB P3janj5DGK7MPpxLCFwBvK3VEUnlSXgIZFzbPwbKWsxf829UGK5TzLnBY3fM6Rzz3M5lE8nqYMjTS = 9844) EhbDPiZfFpHFUkbp2bjPZrHHzxu0MuKCG0ijC3sXHpmCFkQSUiOI42Uqfjh6CgLsphFGJ7GRPbzsVyv5 Cvd8ffWxWykfMdV8llN2VeYIXbUTDoWNAuLnDriuKkj9Tol1UlcFOyhNv9k0lkOISuPYKtzYrbl0jhMZ B6ZTNqH6M2yJIel2afWVnmJGPjhNG7brS4CHJxfXIgB4DcbC5vMVTzJI6wdhn7g9btGWA6OQwgTXL kJdP3sqF1QIJbtVYvDJObcUhyFZlxj032VKD9LpRiPYQih5NdJ3GexXjlL95unCzmZ29uVOUciWtsaZ3 ztYlapA3uCzJtLwRdIGanoEqtkNDofzitWUpgfhB8YRbqaudeKCOfAGjcL0pnUtGeQRNpyCpgLKnsf2H iDDZpBTVbLudrnfE1RNPQg10tCBAso2NdQEOemO3fwVYrTXnrhnQteLF0MBbdjhAdExSgokSrWXZu hM8eQMJdRC5dGNWjscOpmj5acfXmNEOeESPoM1BosrzemXzoakAxVGIxda8vroTkEYN5CQAJWB6PTSSj AQWgh56fQSHseEqsjS9poRMxhwElKFAvi6IyjH1vcATGJUVmT4eaGE4sLLxud2HkyLPtqADbqBV5MXRz b0ZoGgIzlgQrfGWhsYUhA5YyjYdsG4ytNWCcLVCfknQupRQgh2SqAWSzkUS4wISjEQ6MCnNCm85dB HFkUKGVqxKvLXAugHjrcGG9ybG0fN9kAtDQRgSopODiqFDfFiqoEPDfm744nx3vanM9DLJxVMWnauipc 4EaHZRrDVXfbO38NVOfEUWbez6lqifktEBgfbEcJ5Lzmwl8cE4iXUIdVAxpDIJxCJMsQiEwgEMpAbAxD qHsgHuonInyGIdfFsVbASKuLJprS6zxJnSdTzZqFwzrOPZ5 [employer] Image-Guided FNA [id number] 18:13:15 Test Item Value Reference Range Interpretation Comments Gross Description (test l8csnPVcLRAagSO5CyR code = [id number]) iQEQtp5bgl0DvvBUalP XmAXgyqOItedPqjp89j IT4hL90TS1yCZJzZnJ0 ASUifaA9Xcz9YCIkOYM zwMCoL375d1mik4auvq YsmQD4VVZzHBRpG9WbA I9sQUBqjQQhP49xfHMw NIS5YBSkXJSwzNNbVTC rZEZ4SSLmlZDiJ5xpXF ZqVA3mowshPIefZHfeM LTmkGF7XVQllHWcA0Nf BGEjOOyqLKWkmec3JoC eDj4dqFSwcKesYWrbBE Wuw3irSAPhbFSdBAF5O FxcaWQgNTEwMDAgXFx0 IEZpGYfqpXLlKZ9ilTh oSswtxFqtn2DobFCeER lkIDUxMDAyIFxcZGIgT 6AOKLPtAuB1IUJ3SpZx TXi9GVwvB8YQZWZhZCO 0CXU5CND9NmM4JLx5FS MMVy0tKGx9SRCxBcZ7K DU4NyZiNOuoxUHkTVzw ZmwgXFxmIEFyaWFsIFx cZnMgMTAgXFxmYiBcXG 5jfVxwbGFpblxiXGZzM jAgQTpccGFyXGIwXGNm DJYStGNkkR6obaRqkSD gH2GgQPO9UDDvkdRbSP RpZmYgUXVpazsgNCBQY KNhS7HvfP8xM0myNXRc XHBhciAxMCBtbCwgIGl uIFJQTUlccGFyIDEgQ3 s7s7BoaQ9fwXFzBSCml pIHaSujSzZaKrxdO37m WEUrdmJGoQ3cAYzeeRA gYXNzZXNzbWVudCBmb3 Bmw6YyX9hyXF2xYDWfa LTyR6fca7SxWO7dPEGi ZUGvd0RdQ9J1EUKgSOo df3ctVDMvYPwie1DaLX dZTLCKRF9NXD8qdZV5D NvIUXGKC3aIyKT3EaG7 jBA9CQ51OFYuAAEjcTA qZWprW963eKS2EMYkSD zgy4mmVQIvUXowd3FmS AnCQTVIZC8LGI0awBC1 GDfAJLVJRLlfFPn1HCe osLF8z8bjlTOcx1v1OZ sxKYF3cXwtiBZmkbzgd zIwXGNmMSAgYnkgRHIu BGs5FagoSVDmW9KjO7Q iyfG6h9enjPqii5WzdL CcTJ5whXIqLDTvP07FU lEWZSMST91WYMIYTDHG V7ROC5rNXDV4JaM5iKS 2ATVXCAVHNTyMH2DgIO GDQQVZGYNxIO1NRVdHZ KEDLYNIC77NJMWZQZVJ A1DVR6wUFIlNVRKQMPC LB83JJIOGUHEPR6CWIJ LYRMEHZHzPBKFBJn4LR CMCTEFTEG2HTHgJDgWb XXy9QYCbryI3ZvpoNMf 0MAr8IARSGYWNTX3UAD GNJ86RWCNXLQFBP8QGX QHHEwUVVENHW53KGCSE DICSO7JJL6iXFWUZPzP WFEXQP18MHMRSTUHCS7 VORCBBVVRPUkVGUkVTS Y5EGJNROLYFWN0DCDmE XbPuGRIZF0VOFfQUL0y xFJESHZUIUYStBQ9OrU == Immediate Assessment (test Adequate code = 9837) cellularity, favor benign Major Classification (test [facility]/benign code = 9839) Diagnosis (test code = 34) m9whoWEgYUWraGR0PkZ uFIZsl0sij8DrnGAifK WrDAfbgFRswqEdqc46d ZU2kI47BO9gDQKrSbE9 YVQartB9Eod9TVDoWCE iqSVrL363t7lmf6icoh KnjPV8HKSoESDjT6MyN H4yLAEmkESoL75vbJFw ODC6FENmMDHprQFwXII cHHG7ABXgyUTjR7jqMR LrUB1mlvlyXBrmUHpbZ KOqcIR5YPVvcXLuR6Va OGNzZGdpEYNwstw1TcK tCr5jqJYckOauLKlrD7 djcT2aVkJ3BPerH3zcp E5bUMb4LLvmMKSpjZA0 fvP1MENgdIXmL0IzjP2 kXYYhEA7vfxc2x0qvJR A2CHxkVYUcUkX3uxZ3O DBccGFyZFxwbGFpblxm czIwXGNmMSBBLiBMeW1 kfZQpu0ZyNAUgCKA7VK Y5iAvhSVyaAxskUABiZ WVkbGUgYXNwaXJhdGlv bjpccGFyXHRhYlxwYXJ vlVd9XjGdEc3qwNX0BD S0PBFoByTtIVXagL1he WEgaWRlbnRpZmllZFxw YXIgTHltcGhvaWQgdGl rq6LcNBPgGAAowqAlnF FyfQ== Retained/Biomarker Testing y5qksCUhZWSqhPJ4WeS (test code = 9838) pUJDhl4xes5McsYPozI AyRBsfgETihaEtrn15f TW5gV36TE5hILZwNtF9 JDRxmfW3Abn0SIFiBQQ jxVWcE532j3kni5zexf JzvCF9PPDgTRI5EVlle fTcjaP7KYhpaTMcNcU1 L38vbHQxCWS5SVKvIFR qxRKjWWGtFGK6YYNqhP JzT1qnSVYfVR1fgndhI HtmSYghQDPjeJT4SLOk oWKoN8LcMZAuROdxXID zmkm2XqRjVy0qdLRwpH cyMFxwYXJkXHBsYWluX DOjRiNgU6fqOcJmuWEf E3O2DSikV3ezMXC2 Informational Points (test j1ofjTZkBKXjrPVlOyA code = 9836) wUHVdXYQen4qpLSIxsJ FuZzEwMzNcZnRuYmpcd JXuMLNuPgGmv1ddb769 tIHpn1jiCJVjLpP3aIV oZWDbeODdI901GXFqUG aql8nkn1SrUGMehHJkh 8C5SQVVTRytXLXLUPa4 m8aaRsBtFjG2jDIrIRt fB3ibivFjpIZzGSSyKI p2rI74OQRssO4hyJEjB ArkfpKwBhS6RFgrKRQi PtH8XDZlrXFhNOSdA9y yZWQwXGdyZWVuMFxibH WzHLR6lBfrn1Q1rRBjs GVldHtcZjBcZnMyMiBO n5IrZDd8iFumL8OuESX nJoT1sIReDTAzDTvlOG CoHGHipiF2bQ22KNoxd vN8nFLgy6Pef86en781 mU4kjFLvJWW2BRDqUPB xlJPaXSTiTEF1FBEsoV JwR0ghPGYnDJ9nxfemY UzpZNspRBFuhMP6VOWn pMIyE0LnXZHaZPyfTJT oaau9IkIyGy3glONflA dqEJnab5zzi9bxjTYdD or8HGQlApFmDlitRClr j7Zgi1raMQSprg2pMYF 1xBUwrZyok6D9hDSmXE UlcWHpubWeMUEafy55m GIhzLKobNReqz7tcqWv uXYehJXmDSF2hIKflhP uXGZldDRcYWVuZGRvY1 opOxTzedEcT6nhK0LfZ HJoZWFkXHBnYnJkcmZv q6Nhy4XviRXjzZp3a4k kEEQvRDVjaWgjw7opOT V4YIKfK9I7pASnu0mkO NzsJDSnqRL8ttD3OTZq hYPeF0CtcP1gCSZtES3 cgck6n1ufAVT6JOvfSA UsWhO6ftH0XWBwlSYpX PQmuIcnFBpqs139OEA8 ArLtUDEgv3PdF8YfbNz gT83niWfeL47wZNNxrO eflU0nzYmgsF3dNrKtC nMyNFxxbFxwbGFpblxm TZkyvoI8TPebgjscMTB zYAxoY1qzFsBjHDFgxI yfPOqoq3UfOITrOLQjY QyumTRJz29tABObb2Yr QZOhbV5syQDxMRbolyN udLT0BAbiuhHbKkGoft DiHZPddP6jYARqXI4yS GEyrfHauf1obnEjAMNp CYHdT0VpeechaGduahB wZSUrkp8laiNcUBA6RY GNZK9JERQdUKKhi69hQ EForRsxyZ6fjWJdfvQu GBQjw4FgsU0tyIMICFD pB6zcHN1qAUblk4OtwU OvhMKqsVF3ZZDgm3QyG hNdfkTbbFHosROhP9Ep aIewZ8zuWCObIWQndiV ubNLal1IjAUAmuMW4gQ PoTX0IZbJQh34xEVBoH CBEcnVnIEFkbWluaXN0 hlF8rF2oOwYBhZdyAFZ re8Wyt5ZsL2beZDJeZI EabSFoiCibaY7qZjCzL yYeCYhzQB0eORJyO6ph oTNsXHAyPXWtM8uhZaF dwM9blJlkNTbfPxWxQn MxOFxsdHJjaFxpIFdlc 7ZnWO89w6AqtnVRgBXa ex3spBzuQLhiDKcziej rA7w6h6UthXsowY4wcX TIUPUagbQ4k7G7YHHvG WluXGYxXGZzMThcbGFu ZzEwMzNcaGljaFxmMVx pMzGuMTYyIMsbC6qdKx FqN7RwUPBgHJfvoANzG FxwbGFpblxmMVxmczE4 UKtcybuuXPPkBEneI3r cZjFcZGJjaFxmMVxsb2 AuWGUuXBYaEoparpA2I Bh1vxXeNHirJLItLnQn W1N1oPFMesKey4O5MKF Zr4DqcS3sRTMDVKS3Yt B8GAoskALobbggAQoay jW3VHhmoinwKZPcKJmj V9srXvZfDSHmwFggHIz kd7JjCJAnIPMwYzczek S1PCinEwifiXQxumqsD lxmczIyXGxhbmcxMDMz WDsoV2uiIiGxSYVgnBk eHuuzd4MqYQLiFONjVe JccGFyfQ== MD Chin[facility] Digital Diagnostic Bilateral with [id number] 23:43:47 Test Item Value Reference Range Interpretation Comments IMP (test code = IMP) 1: Mass in the right breast upper outer quadrant at 10 o'clock located 6centimeters from the nipple requires additional imaging evaluation. Anultrasound exam is recommended. 2: Mass in the right breast upper outer quadrant at 11 o'clock located 2centimeters from the nipple requires additional imaging evaluation. Anultrasound exam is recommended. 3: Lymph node in the right axilla requires additional imaging evaluation. Anultrasound exam is recommended. 4: Left breast mass requires additional imaging evaluation. Anultrasound exam is recommended. BI-RADS Category 0:Incomplete: Needs Additional Imaging Evaluation PXN (test code = PXN) Nupur Rosario, DO - 11/20/2021 CLINICAL INDICATION:Patient is a 81 year old female and is seen for breast lump MAMMO DIGITAL DIAGNOSTIC BILATERAL W TOMODigital Mammogram evaluated with Computer Aided Detection (CAD). COMPARISON:The present examination has been compared to a prior imaging study performed atan outside location on 11/01/2021. FINDINGS:The breasts are heterogeneously dense, which may obscure small masses. 1: There is an irregular mass measuring 1.5 x 1.2 x 1.2 centimeters in theright breast upper outer quadrant at 10 o'clock located 6 centimeters from thenipple. Mass correlates to the palpable finding in the right breast. 2: There is an irregular mass measuring 1.8 x 1.4 x 1.3 centimeters in theright breast upper outer quadrant at 11 o'clock located 2 centimeters from thenipple. Mass correlates to the palpable finding in the right breast. 3: There is a partially visualized right axillary node. 4: In the left breast, there is a 1.1cm mass in the left breast 2:00 6cm fromthe nipple. Tomosynthesis performed in CC and MLO projections. IMPRESSION:1: Mass in the right breast upper outer quadrant at 10 o'clock located 6centimeters from the nipple requires additional imaging evaluation. Anultrasound exam is recommended. 2: Mass in the right breast upper outer quadrant at 11 o'clock located 2centimeters from the nipple requires additional imaging evaluation. Anultrasound exam is recommended. 3: Lymph node in the right axilla requires additional imaging evaluation. Anultrasound exam is recommended. 4: Left breast mass requires additional imaging evaluation. Anultrasound exam is recommended. BI-RADS Category 0:Incomplete: Needs Additional Imaging Evaluation Lab Interpretation Abnormal (test code = 23406-9) MD ChinUS Breast Complete [id number] 23:39:46 Test Item Value Reference Range Interpretation Comments IMP (test code = IMP) 1: Mass in the right breast upper outer quadrant at 10 o'clock located 7centimeters from the nipple is suspicious. Ultrasound guided biopsy isrecommended. 2: Mass in the right breast upper outer quadrant at 11 o'clock located 1centimeter from the nipple is suspicious. Ultrasound guided biopsy isrecommended. 3: Two additional masses in the right breast lower hemisphere at 6 o'clocklocated 4 centimeters from the nipple and 9:00 4cm form the nipple aresuspicious. Biopsy may be considered if it would management engineer. 4: Lymph nodes in the right axilla are suspicious as above. Ultrasound guidedbiopsy is recommended. 5: Mass in the left breast upper outer quadrant at 2 o'clock located 5centimeters from the nipple is suspicious. Ultrasound guided biopsy isrecommended. 6: Mass in the left breast outer hemisphere at 3 o'clock located 5 centimetersfrom the nipple is suspicious. Ultrasound guided biopsy may be considered if itwould management engineer. 7: Lymph nodes in the left axilla are suspicious. Ultrasound guided biopsy isrecommended. BI-RADS Category 4C:Suspicious Abnormality PXN (test code = PXN) Nupur Rosario DO - 11/20/2021 CLINICAL INDICATION:Patient is a 81 year old female and is seen for abnormal mammogram FILMS COMPAREDThe present examination has been compared to a prior imaging study performed [facility] on 11/20/2021. Images were obtained in multiple scanning planes. Real-time sonographic imaging of both breasts (including all 4 quadrants andretroareolar region) was performed. Real time sonographic imaging of bilateralaxilla was performed. Real-time sonographic imaging of bilateral regional nodalbasins including the axillary (level I,II,III) and internal mammary regions wasperformed. 1: Additional evaluation was performed for the irregular mass seen on11/20/2021. On the present examination, there is an irregular mass measuring 1.8x 1 x 1.3 centimeters in the right breast upper outer quadrant at 10 o'clocklocated 7 centimeters from the nipple. 2: There is an irregular mass measuring 3 x 2.8 x 0.8 centimeters in the rightbreast upper outer quadrant at 11 o'clock located 1 centimeter from the nipple.This appears to extend towards the nipple but does not involve the nipple. Thisis 0.8cm from the nipple. This is approximately 3.3cm from the 10:00 mass. 3: There is an irregular mass measuring 0.5 x 0.5 x 0.3 centimeters in theright breast lower hemisphere at 6 o'clock located 4 centimeters from thenipple. There is a fourth indeterminate 0.7 x 0.3 x 0.7cm hypoechoic mass inthe right breast 9:00 4cm from the nipple. 4: There is a level I lymph node with cortical thickening measuring 1.7 x 0.8 x1.5 centimeters in the right axilla. There is a right axillary level III nodemeasuring 1.7 x 0.5 x 0.6cm and a second 0.4cm level III node. No level II,internal mammary and supraclavicular lymphadenopathy. 5: Additional evaluation was performed for the left irregular mass seen on11/20/2021. On the present examination, there is an irregular mass measuring 1.4x 1 x 0.8 centimeters in the left breast upper outer quadrant at 2 o'clocklocated 5 centimeters from the nipple. 6: There is an irregular similar appearing mass measuring 0.6 x 0.5 x 0.7centimeters in the left breast outer hemisphere at 3 o'clock located 5centimeters from the nipple.This is 1.8cm from the 2:00 mass. 7: There are two indeterminate level I lymph nodes largest measuring 1.7 x 0.7x 0.8 centimeters in the left level I axilla. No left level II, III and internalmammary chain adenopathy. IMPRESSION:1: Mass in the right breast upper outer quadrant at 10 o'clock located 7centimeters from the nipple is suspicious. Ultrasound guided biopsy isrecommended. 2: Mass in the right breast upper outer quadrant at 11 o'clock located 1centimeter from the nipple is suspicious. Ultrasound guided biopsy isrecommended. 3: Two additional masses in the right breast lower hemisphere at 6 o'clocklocated 4 centimeters from the nipple and 9:00 4cm form the nipple aresuspicious. Biopsy may be considered if it would management engineer. 4: Lymph nodes in the right axilla are suspicious as above. Ultrasound guidedbiopsy is recommended. 5: Mass in the left breast upper outer quadrant at 2 o'clock located 5centimeters from the nipple is suspicious. Ultrasound guided biopsy isrecommended. 6: Mass in the left breast outer hemisphere at 3 o'clock located 5 centimetersfrom the nipple is suspicious. Ultrasound guided biopsy may be considered if itwould management engineer. 7: Lymph nodes in the left axilla are suspicious. Ultrasound guided biopsy isrecommended. BI-RADS Category 4C:Suspicious Abnormality Lab Interpretation Abnormal (test code = 38399-8) MD Chin Chest for Breast Ultrasound (Add-on Only)2021-11-20 23:39:46 Test Item Value Reference Range Interpretation Comments IMP (test code = IMP) 1: Mass in the right breast upper outer quadrant at 10 o'clock located 7centimeters from the nipple is suspicious. Ultrasound guided biopsy isrecommended. 2: Mass in the right breast upper outer quadrant at 11 o'clock located 1centimeter from the nipple is suspicious. Ultrasound guided biopsy isrecommended. 3: Two additional masses in the right breast lower hemisphere at 6 o'clocklocated 4 centimeters from the nipple and 9:00 4cm form the nipple aresuspicious. Biopsy may be considered if it would management engineer. 4: Lymph nodes in the right axilla are suspicious as above. Ultrasound guidedbiopsy is recommended. 5: Mass in the left breast upper outer quadrant at 2 o'clock located 5centimeters from the nipple is suspicious. Ultrasound guided biopsy isrecommended. 6: Mass in the left breast outer hemisphere at 3 o'clock located 5 centimetersfrom the nipple is suspicious. Ultrasound guided biopsy may be considered if itwould management engineer. 7: Lymph nodes in the left axilla are suspicious. Ultrasound guided biopsy isrecommended. BI-RADS Category 4C:Suspicious Abnormality PXN (test code = PXN) Nupur Rosario, DO - 11/20/2021 CLINICAL INDICATION:Patient is a 81 year old female and is seen for abnormal mammogram FILMS COMPAREDThe present examination has been compared to a prior imaging study performed [facility] on 11/20/2021. Images were obtained in multiple scanning planes. Real-time sonographic imaging of both breasts (including all 4 quadrants andretroareolar region) was performed. Real time sonographic imaging of bilateralaxilla was performed. Real-time sonographic imaging of bilateral regional nodalbasins including the axillary (level I,II,III) and internal mammary regions wasperformed. 1: Additional evaluation was performed for the irregular mass seen on11/20/2021. On the present examination, there is an irregular mass measuring 1.8x 1 x 1.3 centimeters in the right breast upper outer quadrant at 10 o'clocklocated 7 centimeters from the nipple. 2: There is an irregular mass measuring 3 x 2.8 x 0.8 centimeters in the rightbreast upper outer quadrant at 11 o'clock located 1 centimeter from the nipple.This appears to extend towards the nipple but does not involve the nipple. Thisis 0.8cm from the nipple. This is approximately 3.3cm from the 10:00 mass. 3: There is an irregular mass measuring 0.5 x 0.5 x 0.3 centimeters in theright breast lower hemisphere at 6 o'clock located 4 centimeters from thenipple. There is a fourth indeterminate 0.7 x 0.3 x 0.7cm hypoechoic mass inthe right breast 9:00 4cm from the nipple. 4: There is a level I lymph node with cortical thickening measuring 1.7 x 0.8 x1.5 centimeters in the right axilla. There is a right axillary level III nodemeasuring 1.7 x 0.5 x 0.6cm and a second 0.4cm level III node. No level II,internal mammary and supraclavicular lymphadenopathy. 5: Additional evaluation was performed for the left irregular mass seen on11/20/2021. On the present examination, there is an irregular mass measuring 1.4x 1 x 0.8 centimeters in the left breast upper outer quadrant at 2 o'clocklocated 5 centimeters from the nipple. 6: There is an irregular similar appearing mass measuring 0.6 x 0.5 x 0.7centimeters in the left breast outer hemisphere at 3 o'clock located 5centimeters from the nipple.This is 1.8cm from the 2:00 mass. 7: There are two indeterminate level I lymph nodes largest measuring 1.7 x 0.7x 0.8 centimeters in the left level I axilla. No left level II, III and internalmammary chain adenopathy. IMPRESSION:1: Mass in the right breast upper outer quadrant at 10 o'clock located 7centimeters from the nipple is suspicious. Ultrasound guided biopsy isrecommended. 2: Mass in the right breast upper outer quadrant at 11 o'clock located 1centimeter from the nipple is suspicious. Ultrasound guided biopsy isrecommended. 3: Two additional masses in the right breast lower hemisphere at 6 o'clocklocated 4 centimeters from the nipple and 9:00 4cm form the nipple aresuspicious. Biopsy may be considered if it would management engineer. 4: Lymph nodes in the right axilla are suspicious as above. Ultrasound guidedbiopsy is recommended. 5: Mass in the left breast upper outer quadrant at 2 o'clock located 5centimeters from the nipple is suspicious. Ultrasound guided biopsy isrecommended. 6: Mass in the left breast outer hemisphere at 3 o'clock located 5 centimetersfrom the nipple is suspicious. Ultrasound guided biopsy may be considered if itwould management engineer. 7: Lymph nodes in the left axilla are suspicious. Ultrasound guided biopsy isrecommended. BI-RADS Category 4C:Suspicious Abnormality Lab Interpretation Abnormal (test code = 18044-2) MD Fischer Head Neck Soft [id number] 23:39:46 Test Item Value Reference Range Interpretation Comments IMP (test code = IMP) 1: Mass in the right breast upper outer quadrant at 10 o'clock located 7centimeters from the nipple is suspicious. Ultrasound guided biopsy isrecommended. 2: Mass in the right breast upper outer quadrant at 11 o'clock located 1centimeter from the nipple is suspicious. Ultrasound guided biopsy isrecommended. 3: Two additional masses in the right breast lower hemisphere at 6 o'clocklocated 4 centimeters from the nipple and 9:00 4cm form the nipple aresuspicious. Biopsy may be considered if it would management engineer. 4: Lymph nodes in the right axilla are suspicious as above. Ultrasound guidedbiopsy is recommended. 5: Mass in the left breast upper outer quadrant at 2 o'clock located 5centimeters from the nipple is suspicious. Ultrasound guided biopsy isrecommended. 6: Mass in the left breast outer hemisphere at 3 o'clock located 5 centimetersfrom the nipple is suspicious. Ultrasound guided biopsy may be considered if itwould management engineer. 7: Lymph nodes in the left axilla are suspicious. Ultrasound guided biopsy isrecommended. BI-RADS Category 4C:Suspicious Abnormality PXN (test code = PXN) Nupur Rosario DO - 11/20/2021 CLINICAL INDICATION:Patient is a 81 year old female and is seen for abnormal mammogram FILMS COMPAREDThe present examination has been compared to a prior imaging study performed [facility] on 11/20/2021. Images were obtained in multiple scanning planes. Real-time sonographic imaging of both breasts (including all 4 quadrants andretroareolar region) was performed. Real time sonographic imaging of bilateralaxilla was performed. Real-time sonographic imaging of bilateral regional nodalbasins including the axillary (level I,II,III) and internal mammary regions wasperformed. 1: Additional evaluation was performed for the irregular mass seen on11/20/2021. On the present examination, there is an irregular mass measuring 1.8x 1 x 1.3 centimeters in the right breast upper outer quadrant at 10 o'clocklocated 7 centimeters from the nipple. 2: There is an irregular mass measuring 3 x 2.8 x 0.8 centimeters in the rightbreast upper outer quadrant at 11 o'clock located 1 centimeter from the nipple.This appears to extend towards the nipple but does not involve the nipple. Thisis 0.8cm from the nipple. This is approximately 3.3cm from the 10:00 mass. 3: There is an irregular mass measuring 0.5 x 0.5 x 0.3 centimeters in theright breast lower hemisphere at 6 o'clock located 4 centimeters from thenipple. There is a fourth indeterminate 0.7 x 0.3 x 0.7cm hypoechoic mass inthe right breast 9:00 4cm from the nipple. 4: There is a level I lymph node with cortical thickening measuring 1.7 x 0.8 x1.5 centimeters in the right axilla. There is a right axillary level III nodemeasuring 1.7 x 0.5 x 0.6cm and a second 0.4cm level III node. No level II,internal mammary and supraclavicular lymphadenopathy. 5: Additional evaluation was performed for the left irregular mass seen on11/20/2021. On the present examination, there is an irregular mass measuring 1.4x 1 x 0.8 centimeters in the left breast upper outer quadrant at 2 o'clocklocated 5 centimeters from the nipple. 6: There is an irregular similar appearing mass measuring 0.6 x 0.5 x 0.7centimeters in the left breast outer hemisphere at 3 o'clock located 5centimeters from the nipple.This is 1.8cm from the 2:00 mass. 7: There are two indeterminate level I lymph nodes largest measuring 1.7 x 0.7x 0.8 centimeters in the left level I axilla. No left level II, III and internalmammary chain adenopathy. IMPRESSION:1: Mass in the right breast upper outer quadrant at 10 o'clock located 7centimeters from the nipple is suspicious. Ultrasound guided biopsy isrecommended. 2: Mass in the right breast upper outer quadrant at 11 o'clock located 1centimeter from the nipple is suspicious. Ultrasound guided biopsy isrecommended. 3: Two additional masses in the right breast lower hemisphere at 6 o'clocklocated 4 centimeters from the nipple and 9:00 4cm form the nipple aresuspicious. Biopsy may be considered if it would management engineer. 4: Lymph nodes in the right axilla are suspicious as above. Ultrasound guidedbiopsy is recommended. 5: Mass in the left breast upper outer quadrant at 2 o'clock located 5centimeters from the nipple is suspicious. Ultrasound guided biopsy isrecommended. 6: Mass in the left breast outer hemisphere at 3 o'clock located 5 centimetersfrom the nipple is suspicious. Ultrasound guided biopsy may be considered if itwould management engineer. 7: Lymph nodes in the left axilla are suspicious. Ultrasound guided biopsy isrecommended. BI-RADS Category 4C:Suspicious Abnormality Lab Interpretation Abnormal (test code = 91147-4) MD Chin
--- OUTSIDE RECORDS SUMMARY | 2021-11-30 02:35 | XMS REPORT | Clinical Summary ---
:1940 Author Organization [facility] MD [facility] Address [address] [place] [address] Care Team Providers Name Role Phone Tony Gracia MD Unavailable Tony Gracia MD Unavailable Eda Joseph MD Primary Care Provider Madelyn Kauffman MD Unavailable Allergies No known active allergies Medications Medication Sig Dispensed Refills Start Date End Date Status metFORMIN Take 1 10 11/16/2015 Active (GLUCOPHAGE) 500 mg tablet by tablet mouth twice daily. metoprolol tartrate Take 1 3 12/13/2015 Active (LOPRESSOR) 25 mg tablet by tablet mouth twice daily. ranitidine (ZANTAC) Take 1 0 01/07/2016 Active 150 mg tablet tablet by mouth daily. sitaGLIPtin Take 100 mg 0 Active (JANUVIA) 100 mg by mouth tablet daily. clopidogrel (PLAVIX) Take 1 0 03/25/2020 Active 75 mg tablet tablet by mouth daily. atorvastatin Take 1 0 03/18/2020 Active (LIPITOR) 80 mg tablet by tablet mouth daily. aspirin 81 mg EC Take 81 mg 0 Ac tive tablet by mouth daily. folic acid (FOLVITE) Take 1 mg 0 Active 1 mg tablet by mouth. aspirin 325 mg Take 325 mg 0 Dis continued (Not tabletIndications: by mouth 2 1 Applicable) peripheral arterial (two) times thromboembolism a day as prevention needed. 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 Cancer Staging: Clinical stage from 02/24: Stage IA (Primary) - Signed by Mónica Joseph MD on 02/26/2016 Diabetes mellitus 01/16/2016 Encounters Date Type Specialty Care Team Description 11/26/2021 Orders Only Breast Surgical Leary-Mcmahan, Infiltra ting duct Oncology TIAN [place] carcinoma of ri ght female breast (Primary Dx) 11/26/2021 Telephone Breast Surgical Ami Lira Oncology Yolanda Brock MD 11/26/2021 Orders Only Breast Surgical Leary-Martir, Infiltra ting duct Oncology TIAN [place] carcinoma of ri ght female breast (Primary Dx) 11/22/2021 Office Visit Breast Surgical Ami Lira Mammograph y abnormal Oncology Yolanda Brock MD 11/22/2021 Travel 11/20/2021 Ancillary Radiology Mónica Joseph Cancer Procedure MD Eda 11/20/2021 Ancillary Radiology Mónica Joseph Cancer Procedure MD Eda 11/20/2021 Ancillary Radiology Mammography abn ormal Procedure 11/20/2021 Ancillary Radiology Elliott Murry, Mammography abnormal Procedure PA 11/20/2021 Ancillary Radiology Elliott Murry, Mammography abnormal Procedure PA 11/20/2021 Travel 11/14/2021 Orders Only Gynecology Elliott Murry, Mammography abnormal (Primary Dx); TIAN Malignant neopl asm of endometrium 04/29/2021 Office Visit Gynecology Demetrio Siegel, Malignant wiliam plasm of endometrium; History of malignant neoplasm of endomet rium Elliott Murry PA 04/29/2021 Travel 04/29/2021 Telephone Surgical Oncology Veronica Ramos RN after 11/30/2020 Immunizations Name Administration Dates Next Due Moderna SARS-CoV-2 Vaccination 07/15/2021, 01/14/2021, 12/17 Surgical History Surgery Date Site/Laterality Comments PATELLA FRACTURE SURGERY CHOLECYSTECTOMY 09/14/2005 - lap dominic with h ernia 09/13/2006 repair LAPAROTOMY EXPLORATORY 09/14/1945 - abdominal injury-from 09/13/1946 glass injury HERNIA REPAIR 09/14/2005 - UMbilical 09/13/2006 HERNIA REPAIR Abdominal, TOTAL ABDOMINAL HYSTERECTOMY W/ 09/14/2015 - BILATERAL SALPINGOOPHORECTOMY 09/13/2016 Medical History Medical History Date Comments Psoriasis Hand wart Diabetes mellitus Reflux gastritis Hyperlipidemia Family History Medical History Relation Name Comments -Gynecology (Ovary, Endometrial, Cervix, Vagina) Cousin Lowell uterine -Gastrointestinal (Esophagus, Liver, Bile Duct, Paternal Aunt esophageal Stomach, Pancreas, Colon, Rectum, Anus Relation Name Status Comments Cousin Lowell Alive Paternal Aunt Social History Tobacco Use Types Packs/Day Years Used Date Never Smoker Smokeless Tobacco: Never Used Alcohol Use Standard Drinks/Week Comments No 0 (1 standard drink = 0.6 oz pure alcoho l) Sex Assigned at Date Recorded Not on file Job Start Date Occupation Industry Not on file Not on file Not on file COVID-19 Exposure Response Date Recorded In the last month, have you been in contact with No / Unsure 11/22/2021 10:[address] [place] someone who was confirmed or suspected to have Coronavirus / COVID-19? Obstetrics History Para Term AB IAB SAB Ectopic Multiple Living Live Births 4 3 1 3 Date Outcome GA Total Labor/2nd/3rd Weight Sex Delivery Anes PTL Rox A 1 A5 Name Clin Labor Para Para Para AB Comments 1 mis 1 episode of abnormal pap smear in early 90s, cryotherapy 1 D&C for evaluation as well, it was nor mal. Menopausal status: 50 yo G 4 P 3 Menarche: 12 yo Parity: 27 yo : 6yr OCP: 3-4 years HRT: Progesterone during her pregnancies , less than 5 years total Last Filed Vital Signs Vital Sign Reading Time Taken Comments Blood Pressure 148/78 11/22/2021 10:[address] [place] Pulse 72 11/22/2021 10:[address] [place] Temperature 36.4 C (97.5 F) 11/22/2021 10:[address] [place] Respiratory Rate 18 11/22/2021 10:[address] [place] Oxygen Saturation 94% 11/20/2021 5:[address] [place] Inhaled Oxygen Concentration - - Weight 93.7 kg (206 lb 9.1 oz) 11/22/2021 10:[address] [place] Height - - Body Mass Index 35.7 01/16/2016 11:00 AM CDT Plan of Treatment Date Type Specialty Care Team Description 12/06/2021 Ancillary Procedure Radiology Mallory Marino PA [address] [place], [place] [address] (Wo rk) 12/06/2021 Ancillary Procedure Radiology Mallory Marino PA [address] [place], [place] [address] (Wo rk) 12/06/2021 Appointment Radiology Mallory Marino PA [address] [place], [place] [address] (Wo rk) 12/06/2021 Office Visit Breast Medical Nuzhat Cuba, Oncology [address] [place], [place] [address] (Wo rk) 12/06/2021 Office Visit Breast Surgical Ami Lira Oncology MD Vinod [address] [place], [place] [address] (Wo rk) Health Maintenance Due Date Last Done Comments COVID-19 Vaccination Completed 07/15/2021, 01/14/2021, 01/2021 Procedures Procedure Name Priority Date/Time Associated Comments Diagnosis MAMMO POST PROCEDURE Routine 11/20/2021 5:56 Mammography Res ults for this BILATERAL PM COURT [place] abnormal procedure are i n the results section. US GUIDED AXILLARY Routine 11/20/2021 5:47 Mammography Resul ts for this LYMPH NODE FNA LEFT PM COURT [place] abnormal procedur e are in the results section. US GUIDED BREAST BIOPSY Routine 11/20/2021 5:47 Mammography Results for this LEFT PM COURT [place] abnormal procedure are i n the results section. US GUIDED Routine 11/20/2021 5:47 Mammography Results for this INFRACLAVICULAR LYMPH PM COURT [place] abnormal proced ure are in NODE FNA - RIGHT the results section. US GUIDED BREAST BIOPSY Routine 11/20/2021 5:47 Mammography Results for this RIGHT PM COURT [place] abnormal procedure are i n the results section. US HEAD NECK SOFT Routine 11/20/2021 5:47 Mammography Result s for this TISSUE PM COURT [place] abnormal procedure are i n the results section. US CHEST Routine 11/20/2021 5:47 Mammography Results for this PM COURT [place] abnormal procedure are i n the results section. US BREAST COMPLETE Routine 11/20/2021 5:47 Mammography Resul ts for this BILATERAL PM COURT [place] abnormal procedure are i n the results section. CYTOLOGY IMAGE-GUIDED Routine 11/20/2021 3:48 Mammography Re sults for this FNA INTERPRETATION PM COURT [place] abnormal procedure are in the results section. PATHOLOGY BIOPSY Routine 11/20/2021 3:46 Mammography Results for this INTERPRETATION PM COURT [place] abnormal procedure are in the results section. CYTOLOGY IMAGE-GUIDED Routine 11/20/2021 3:44 Mammography Re sults for this FNA INTERPRETATION PM COURT [place] abnormal procedure are in the results section. PATHOLOGY BIOPSY Routine 11/20/2021 3:39 Mammography Results for this INTERPRETATION PM COURT [place] abnormal procedure are in the results section. MAMMO DIGITAL Routine 11/20/2021 1:50 Mammography Results fo r this DIAGNOSTIC BILATERAL W PM COURT [place] abnormal proce dure are in JOE the results section. OSI MAMMO BILATERAL Routine 11/01/2021 12:43 Cancer Resu lts for this PM COURT [place] procedure are i n the results section. OSI US BREAST Routine 11/01/2021 12:43 Cancer Results fo r this PM COURT [place] procedure are i n the results section. after 11/30/2020 Results Post Procedure Mammogram Bilateral (11/20/2021 5:[address] [place]) Specimen Addenda Addendum by Nupur Rosario DO on 11/26/2021 1:16 PM CDT ADDENDED REPORT ----- 11/21/2021 at 14:04:49 Addendum: Site 6: The lesion in question was ident ified in the left axillary level I region. The biopsy needle was advanced t o the targeted lesion. Biopsy was performed with a 21-gauge needle, and 1 pass was made. Immediate cytopathology assessment was performed, and the specim en was deemed adequate for diagnosis. Preliminary cytology result is benign. 11/26/2021 Addendum: Diagnosis A: Breast, right, right breast 10:00, 7 cm FN, 1.8 cm palpable mass, ultrasound-guided core needle biopsy: INVASIVE DUCTAL CARCINOMA OF BREAST, HIS TOLOGIC GRADE 3, NUCLEAR GRADE 3 (HIGH-GRADE), WITH MICROPAPILLARY PATTER N, ADMIXED WITH LOW-GRADE TUBULAR PATTERN (SEE COMMENT). B: Breast, right, right breast 11:00, 1 cm FN, 3 cm palpable mass, ultrasound-guided core needle biopsy: INVASIVE DUCTAL CARCINOMA OF BREAST, HIS TOLOGIC GRADE 3, NUCLEAR GRADE 3 (HIGH-GRADE), WITH MICROPAPILLARY PATTER N, ADMIXED WITH LOW-GRADE TUBULAR PATTERN (SEE COMMENT). C: Lymph node(s), right, axillary level 1, 1.7 cm, ultrasound-guided core needle biopsy: METASTATIC ADENOCARCINOMA WITHIN ONE LYM PH NODE (1/). SEE COMMENT D: Breast, left, left breast 2:00, 5 cm FN, 1.4 cm mass, ultrasound-guided core needle biopsy: Portion of the apocrine cyst with repara tive changes (see comment). Diagnosis A. Lymph node, left axilla, fine needle aspiration: No metastatic carcinoma identified Lymphoid tissue present Diagnosis A. Lymph node, right axillary, level III , fine needle aspiration: FEW CLUSTERS OF METASTATIC ADENOCARCINOM A (SEE COMMENT) Pathology results are concordant with im aging findings. Results sent via institutional email to Dr. Lira on 11/26/2021. Addendum by Nupur Rosario DO on 11/21/2021 2:[address] [place] ADDENDED REPORT ----- 11/21/2021 Addendum: Site 6: The lesion in question was ident ified in the left axillary level I region. The biopsy needle was advanced t o the targeted lesion. Biopsy was performed with a 21-gauge needle, and 1 pass was made. Immediate cytopathology assessment was performed, and the specim en was deemed adequate for diagnosis. Preliminary cytology result is benign. Impressions [facility] - 11/21/2021 9:[address] [place] Technically successful ultrasound guided biopsies of the bilateral breasts. An addendum will be issued once the final p athology result is available and reviewed. Examination: Post Procedure Mammogram Bi lateral 11/20/2021. Clinical Indication: Patient is a 81 y ears old female and is seen for post procedure mammogram. Findings: See Ultrasound-guided biopsy r eport done same date. Narrative [facility] - 11/21/2021 9:[address] [place] Examination: Right Breast Ultrasound Guided Needle Biopsy with Marker Clip Placement and Post Biopsy Mammograms, . Clinical History: 81-year-old woman wi th an abnormal breast ultrasound presenting for biopsy. Indication: Suspicious finding(s) on rec ent breast ultrasound. Comparison: Mammogram from 11/20/2021. B reast Ultrasound from 11/20/2021. Technique: Ultrasound imaging of the rig ht breast was performed. The skin of the breast(s) was cleansed with chlorhexidin e. Local anesthesia was achieved with a total of 20ml 1% Lidocaine. Procedure: The procedure and its risks, benefits, and alternatives were explained in detail to the patient, who agreed to proceed and signed an informed consent form. All questions were answere d. The patient was brought to the ultrasoun d suite and was placed supine on the table. Site 1: The lesion in question was ident ified in the right axillary level III region. The biopsy needle was advanced t o the targeted lesion. Biopsy was performed with a 21-gauge needle, and 1 pass was made. Immediate cytopathology assessment was performed, and the specim en was deemed adequate for diagnosis. Preliminary cytology result is benign. Site 2: The lesion in question was ident ified in the right axillary level I region The biopsy trocar was advanced to the targeted lesion. Biopsy was performed with a 16-gauge automated core biopsy devise, and 2 passes were made.2 cores were obtained.A marker clip was de ployed into the biopsied lesion. At the conclusion of the procedure, pressure wa s held until cessation of bleeding. The skin incision was closed with Steri-stri ps and covered with a bandage. A [place] U-shaped marker clip was placed at the biopsy site. Post procedure mammography confirms expected positionin g of the marker clip(s) The clip marker lies within the biopsi ed lesion. Site 3: The lesion in question was ident ified in the right breast at 10 o'clock, 7cm from the nipple. The biopsy needle w as advanced to the targeted lesion. Biopsy was performed with a 14-gauge aut omated core biopsy device, and 4 passes were made. 4 cores were obtained.A marke r clip was deployed into the biopsied lesion. At the conclusion of the procedu re, pressure was held until cessation of bleeding. The skin incision was closed w ith Steri-strips and covered with a bandage. A Bard wing marker clip was placed at th e biopsy site. Post procedure mammography confirms expected positionin g of the marker clip(s) The clip marker lies within the biopsi ed lesion. Site 4: The lesion in question was ident ified in the right breast at 11 o'clock 1cm from the nipple. The biopsy trocar w as advanced to the targeted lesion. Biopsy was performed with a 14-gauge aut omated core biopsy device, and 3 passes were made.3 cores were obtained.A marker clip was deployed into the biopsied lesion. At the conclusion of the procedu re, pressure was held until cessation of bleeding. The skin incision was closed w ith Steri-strips and covered with a bandage. A Bard heart marker clip was placed at t he biopsy site. Post procedure mammography confirms expected positionin g of the marker clip(s) The clip marker lies within the biopsi ed lesion. Site 5: The lesion in question was ident ified in the left breast at 2 o'clock, 5cm from the nipple. The biopsy needle w as advanced to the targeted lesion. Biopsy was performed with a 14-gauge aut omated core biopsy device, and 3 passes were made. 3 cores were obtained.A marke r clip was deployed into the biopsied lesion. At the conclusion of the procedu re, pressure was held until cessation of bleeding. The skin incision was closed w ith Steri-strips and covered with a bandage. A Bard ribbon marker clip was placed at the biopsy site. Post procedure mammography confirms expected positionin g of the marker clip(s) The clip marker lies within the biopsi ed lesion. The estimated blood loss for the procedu re was minimal. The patient tolerated the procedure well without immediate com plications and left the department in good condition. Procedure Note Nupur Rosraio DO - 11/21/2021 Examination: Right Breast Ultrasound Rogers ded Needle Biopsy with Marker Clip Placement and Post Biopsy Mammograms, . Clinical History: 81-year-old woman wit h an abnormal breast ultrasound presenting for biopsy. Indication: Suspicious finding(s) on rec ent breast ultrasound. Comparison: Mammogram from 11/20/2021. Br east Ultrasound from 11/20/2021. Technique: Ultrasound imaging of the rig ht breast was performed. The skin of the breast(s) was cleansed with chlorhexidin e. Local anesthesia was achieved with a total of 20ml 1% Lidocaine. Procedure: The procedure and its risks, benefits, and alternatives were explained in detail to the patient, who agreed to proceed and signed an informed consent form. All questions were answere d. The patient was brought to the ultrasoun d suite and was placed supine on the table. Site 1: The lesion in question was ident ified in the right axillary level III region. The biopsy needle was advanced t o the targeted lesion. Biopsy was performed with a 21-gauge needle, and 1 pass was made. Immediate cytopathology assessment was performed, and the specim en was deemed adequate for diagnosis. Preliminary cytology result is benign. Site 2: The lesion in question was ident ified in the right axillary level I region The biopsy trocar was advanced t o the targeted lesion. Biopsy was performed with a 16-gauge automated core biopsy devise, and 2 passes were made.2 cores were obtained.A marker clip was de ployed into the biopsied lesion. At the conclusion of the procedure, pressure wa s held until cessation of bleeding. The skin incision was closed with Steri-stri ps and covered with a bandage. A videof.meark U-shaped marker clip was placed at the biopsy site. Post procedure mammography confirms expected positionin g of the marker clip(s) The clip marker lies within the biopsie d lesion. Site 3: The lesion in question was ident ified in the right breast at 10 o'clock, 7cm from the nipple. The biopsy needle w as advanced to the targeted lesion. Biopsy was performed with a 14-gauge aut omated core biopsy device, and 4 passes were made. 4 cores were obtained.A marke r clip was deployed into the biopsied lesion. At the conclusion of the procedu re, pressure was held until cessation of bleeding. The skin incision was closed w ith Steri-strips and covered with a bandage. A [employer] wing marker clip was placed at th e biopsy site. Post procedure mammography confirms expected positionin g of the marker clip(s) The clip marker lies within the biopsie d lesion. Site 4: The lesion in question was ident ified in the right breast at 11 o'clock 1cm from the nipple. The biopsy trocar w as advanced to the targeted lesion. Biopsy was performed with a 14-gauge aut omated core biopsy device, and 3 passes were made.3 cores were obtained.A marker clip was deployed into the biopsied lesion. At the conclusion of the procedu re, pressure was held until cessation of bleeding. The skin incision was closed w ith Steri-strips and covered with a bandage. A Bard heart marker clip was placed at t he biopsy site. Post procedure mammography confirms expected positionin g of the marker clip(s) The clip marker lies within the biopsie d lesion. Site 5: The lesion in question was ident ified in the left breast at 2 o'clock, 5cm from the nipple. The biopsy needle w as advanced to the targeted lesion. Biopsy was performed with a 14-gauge aut omated core biopsy device, and 3 passes were made. 3 cores were obtained.A marke r clip was deployed into the biopsied lesion. At the conclusion of the procedu re, pressure was held until cessation of bleeding. The skin incision was closed w ith Steri-strips and covered with a bandage. A Bard ribbon marker clip was placed at the biopsy site. Post procedure mammography confirms expected positionin g of the marker clip(s) The clip marker lies within the biopsie d lesion. The estimated blood loss for the procedu re was minimal. The patient tolerated the procedure well without immediate com plications and left the department in good condition. IMPRESSION: Technically successful ultrasound guided biopsies of the bilateral breasts. An addendum will be issued once the final p athology result is available and reviewed. Examination: Post Procedure Mammogram Bi lateral 11/20/2021. Clinical Indication: Patient is a 81 ye ars old female and is seen for post procedure mammogram. Findings: See Ultrasound-guided biopsy r eport done same date. Performing Organization Address City/State/ZIP Code Phon e Number [facility] US Guided Infraclavicular Lymph Node FNA - Right (11/20/2021 5:[address] [place]) Specimen Addenda Addendum by Nupur Rosario DO on 11/26/2021 1:16 PM CDT ADDENDED REPORT ----- 11/21/2021 at 14:04:49 Addendum: Site 6: The lesion in question was ident ified in the left axillary level I region. The biopsy needle was advanced t o the targeted lesion. Biopsy was performed with a 21-gauge needle, and 1 pass was made. Immediate cytopathology assessment was performed, and the specim en was deemed adequate for diagnosis. Preliminary cytology result is benign. 11/26/2021 Addendum: Diagnosis A: Breast, right, right breast 10:00, 7 cm FN, 1.8 cm palpable mass, ultrasound-guided core needle biopsy: INVASIVE DUCTAL CARCINOMA OF BREAST, HIS TOLOGIC GRADE 3, NUCLEAR GRADE 3 (HIGH-GRADE), WITH MICROPAPILLARY PATTER N, ADMIXED WITH LOW-GRADE TUBULAR PATTERN (SEE COMMENT). B: Breast, right, right breast 11:00, 1 cm FN, 3 cm palpable mass, ultrasound-guided core needle biopsy: INVASIVE DUCTAL CARCINOMA OF BREAST, HIS TOLOGIC GRADE 3, NUCLEAR GRADE 3 (HIGH-GRADE), WITH MICROPAPILLARY PATTER N, ADMIXED WITH LOW-GRADE TUBULAR PATTERN (SEE COMMENT). C: Lymph node(s), right, axillary level 1, 1.7 cm, ultrasound-guided core needle biopsy: METASTATIC ADENOCARCINOMA WITHIN ONE LYM PH NODE (/). SEE COMMENT D: Breast, left, left breast 2:00, 5 cm FN, 1.4 cm mass, ultrasound-guided core needle biopsy: Portion of the apocrine cyst with repara tive changes (see comment). Diagnosis A. Lymph node, left axilla, fine needle aspiration: No metastatic carcinoma identified Lymphoid tissue present Diagnosis A. Lymph node, right axillary, level III , fine needle aspiration: FEW CLUSTERS OF METASTATIC ADENOCARCINOM A (SEE COMMENT) Pathology results are concordant with im aging findings. Results sent via institutional email to Dr. Lira on 11/26/2021. Addendum by Nupur Rosario DO on 11/21/2021 2:[address] [place] ADDENDED REPORT ----- 11/21/2021 Addendum: Site 6: The lesion in question was ident ified in the left axillary level I region. The biopsy needle was advanced t o the targeted lesion. Biopsy was performed with a 21-gauge needle, and 1 pass was made. Immediate cytopathology assessment was performed, and the specim en was deemed adequate for diagnosis. Preliminary cytology result is benign. Impressions [facility] - 11/21/2021 9:[address] [place] Technically successful ultrasound guided biopsies of the bilateral breasts. An addendum will be issued once the final p athology result is available and reviewed. Examination: Post Procedure Mammogram Bi lateral 11/20/2021. Clinical Indication: Patient is a 81 y ears old female and is seen for post procedure mammogram. Findings: See Ultrasound-guided biopsy r eport done same date. Narrative [facility] - 11/21/2021 9:[address] [place] Examination: Right Breast Ultrasound Guided Needle Biopsy with Marker Clip Placement and Post Biopsy Mammograms, . Clinical History: 81-year-old woman wi th an abnormal breast ultrasound presenting for biopsy. Indication: Suspicious finding(s) on rec ent breast ultrasound. Comparison: Mammogram from 11/20/2021. B reast Ultrasound from 11/20/2021. Technique: Ultrasound imaging of the rig ht breast was performed. The skin of the breast(s) was cleansed with chlorhexidin e. Local anesthesia was achieved with a total of 20ml 1% Lidocaine. Procedure: The procedure and its risks, benefits, and alternatives were explained in detail to the patient, who agreed to proceed and signed an informed consent form. All questions were answere d. The patient was brought to the ultrasoun d suite and was placed supine on the table. Site 1: The lesion in question was ident ified in the right axillary level III region. The biopsy needle was advanced t o the targeted lesion. Biopsy was performed with a 21-gauge needle, and 1 pass was made. Immediate cytopathology assessment was performed, and the specim en was deemed adequate for diagnosis. Preliminary cytology result is benign. Site 2: The lesion in question was ident ified in the right axillary level I region The biopsy trocar was advanced to the targeted lesion. Biopsy was performed with a 16-gauge automated core biopsy devise, and 2 passes were made.2 cores were obtained.A marker clip was de ployed into the biopsied lesion. At the conclusion of the procedure, pressure wa s held until cessation of bleeding. The skin incision was closed with Steri-stri ps and covered with a bandage. A [place] U-shaped marker clip was placed at the biopsy site. Post procedure mammography confirms expected positionin g of the marker clip(s) The clip marker lies within the biopsi ed lesion. Site 3: The lesion in question was ident ified in the right breast at 10 o'clock, 7cm from the nipple. The biopsy needle w as advanced to the targeted lesion. Biopsy was performed with a 14-gauge aut omated core biopsy device, and 4 passes were made. 4 cores were obtained.A marke r clip was deployed into the biopsied lesion. At the conclusion of the procedu re, pressure was held until cessation of bleeding. The skin incision was closed w ith Steri-strips and covered with a bandage. A Bard wing marker clip was placed at th e biopsy site. Post procedure mammography confirms expected positionin g of the marker clip(s) The clip marker lies within the biopsi ed lesion. Site 4: The lesion in question was ident ified in the right breast at 11 o'clock 1cm from the nipple. The biopsy trocar w as advanced to the targeted lesion. Biopsy was performed with a 14-gauge aut omated core biopsy device, and 3 passes were made.3 cores were obtained.A marker clip was deployed into the biopsied lesion. At the conclusion of the procedu re, pressure was held until cessation of bleeding. The skin incision was closed w ith Steri-strips and covered with a bandage. A Bard heart marker clip was placed at t he biopsy site. Post procedure mammography confirms expected positionin g of the marker clip(s) The clip marker lies within the biopsi ed lesion. Site 5: The lesion in question was ident ified in the left breast at 2 o'clock, 5cm from the nipple. The biopsy needle w as advanced to the targeted lesion. Biopsy was performed with a 14-gauge aut omated core biopsy device, and 3 passes were made. 3 cores were obtained.A marke r clip was deployed into the biopsied lesion. At the conclusion of the procedu re, pressure was held until cessation of bleeding. The skin incision was closed w ith Steri-strips and covered with a bandage. A Bard ribbon marker clip was placed at the biopsy site. Post procedure mammography confirms expected positionin g of the marker clip(s) The clip marker lies within the biopsi ed lesion. The estimated blood loss for the procedu re was minimal. The patient tolerated the procedure well without immediate com plications and left the department in good condition. Procedure Note Nupur Rosario DO - 11/21/2021 Examination: Right Breast Ultrasound Rogers ded Needle Biopsy with Marker Clip Placement and Post Biopsy Mammograms, . Clinical History: 81-year-old woman wit h an abnormal breast ultrasound presenting for biopsy. Indication: Suspicious finding(s) on rec ent breast ultrasound. Comparison: Mammogram from 11/20/2021. Br east Ultrasound from 11/20/2021. Technique: Ultrasound imaging of the rig ht breast was performed. The skin of the breast(s) was cleansed with chlorhexidin e. Local anesthesia was achieved with a total of 20ml 1% Lidocaine. Procedure: The procedure and its risks, benefits, and alternatives were explained in detail to the patient, who agreed to proceed and signed an informed consent form. All questions were answere d. The patient was brought to the ultrasoun d suite and was placed supine on the table. Site 1: The lesion in question was ident ified in the right axillary level III region. The biopsy needle was advanced t o the targeted lesion. Biopsy was performed with a 21-gauge needle, and 1 pass was made. Immediate cytopathology assessment was performed, and the specim en was deemed adequate for diagnosis. Preliminary cytology result is benign. Site 2: The lesion in question was ident ified in the right axillary level I region The biopsy trocar was advanced t o the targeted lesion. Biopsy was performed with a 16-gauge automated core biopsy devise, and 2 passes were made.2 cores were obtained.A marker clip was de ployed into the biopsied lesion. At the conclusion of the procedure, pressure wa s held until cessation of bleeding. The skin incision was closed with Steri-stri ps and covered with a bandage. A [place] U-shaped marker clip was placed at the biopsy site. Post procedure mammography confirms expected positionin g of the marker clip(s) The clip marker lies within the biopsie d lesion. Site 3: The lesion in question was ident ified in the right breast at 10 o'clock, 7cm from the nipple. The biopsy needle w as advanced to the targeted lesion. Biopsy was performed with a 14-gauge aut omated core biopsy device, and 4 passes were made. 4 cores were obtained.A marke r clip was deployed into the biopsied lesion. At the conclusion of the procedu re, pressure was held until cessation of bleeding. The skin incision was closed w ith Steri-strips and covered with a bandage. A Bard wing marker clip was placed at th e biopsy site. Post procedure mammography confirms expected positionin g of the marker clip(s) The clip marker lies within the biopsie d lesion. Site 4: The lesion in question was ident ified in the right breast at 11 o'clock 1cm from the nipple. The biopsy trocar w as advanced to the targeted lesion. Biopsy was performed with a 14-gauge aut omated core biopsy device, and 3 passes were made.3 cores were obtained.A marker clip was deployed into the biopsied lesion. At the conclusion of the procedu re, pressure was held until cessation of bleeding. The skin incision was closed w ith Steri-strips and covered with a bandage. A Bard heart marker clip was placed at t he biopsy site. Post procedure mammography confirms expected positionin g of the marker clip(s) The clip marker lies within the biopsie d lesion. Site 5: The lesion in question was ident ified in the left breast at 2 o'clock, 5cm from the nipple. The biopsy needle w as advanced to the targeted lesion. Biopsy was performed with a 14-gauge aut omated core biopsy device, and 3 passes were made. 3 cores were obtained.A marke r clip was deployed into the biopsied lesion. At the conclusion of the procedu re, pressure was held until cessation of bleeding. The skin incision was closed w ith Steri-strips and covered with a bandage. A Bard ribbon marker clip was placed at the biopsy site. Post procedure mammography confirms expected positionin g of the marker clip(s) The clip marker lies within the biopsie d lesion. The estimated blood loss for the procedu re was minimal. The patient tolerated the procedure well without immediate com plications and left the department in good condition. IMPRESSION: Technically successful ultrasound guided biopsies of the bilateral breasts. An addendum will be issued once the final p athology result is available and reviewed. Examination: Post Procedure Mammogram Bi lateral 11/20/2021. Clinical Indication: Patient is a 81 ye ars old female and is seen for post procedure mammogram. Findings: See Ultrasound-guided biopsy r eport done same date. Performing Organization Address City/State/ZIP Code Phon e Number [facility] US Guided Breast Biopsy Right (11/20/2021 5:[address] [place]) Specimen Addenda Addendum by Nupur Rosario DO on 11/26/2021 1:16 PM CDT ADDENDED REPORT ----- 11/21/2021 at 14:04:49 Addendum: Site 6: The lesion in question was ident ified in the left axillary level I region. The biopsy needle was advanced t o the targeted lesion. Biopsy was performed with a 21-gauge needle, and 1 pass was made. Immediate cytopathology assessment was performed, and the specim en was deemed adequate for diagnosis. Preliminary cytology result is benign. 11/26/2021 Addendum: Diagnosis A: Breast, right, right breast 10:00, 7 cm FN, 1.8 cm palpable mass, ultrasound-guided core needle biopsy: INVASIVE DUCTAL CARCINOMA OF BREAST, HIS TOLOGIC GRADE 3, NUCLEAR GRADE 3 (HIGH-GRADE), WITH MICROPAPILLARY PATTER N, ADMIXED WITH LOW-GRADE TUBULAR PATTERN (SEE COMMENT). B: Breast, right, right breast 11:00, 1 cm FN, 3 cm palpable mass, ultrasound-guided core needle biopsy: INVASIVE DUCTAL CARCINOMA OF BREAST, HIS TOLOGIC GRADE 3, NUCLEAR GRADE 3 (HIGH-GRADE), WITH MICROPAPILLARY PATTER N, ADMIXED WITH LOW-GRADE TUBULAR PATTERN (SEE COMMENT). C: Lymph node(s), right, axillary level 1, 1.7 cm, ultrasound-guided core needle biopsy: METASTATIC ADENOCARCINOMA WITHIN ONE LYM PH NODE (/). SEE COMMENT D: Breast, left, left breast 2:00, 5 cm FN, 1.4 cm mass, ultrasound-guided core needle biopsy: Portion of the apocrine cyst with repara tive changes (see comment). Diagnosis A. Lymph node, left axilla, fine needle aspiration: No metastatic carcinoma identified Lymphoid tissue present Diagnosis A. Lymph node, right axillary, level III , fine needle aspiration: FEW CLUSTERS OF METASTATIC ADENOCARCINOM A (SEE COMMENT) Pathology results are concordant with im aging findings. Results sent via institutional email to Dr. Lira on 11/26/2021. Addendum by Nupur Rosario DO on 11/21/2021 2:[address] [place] ADDENDED REPORT ----- 11/21/2021 Addendum: Site 6: The lesion in question was ident ified in the left axillary level I region. The biopsy needle was advanced t o the targeted lesion. Biopsy was performed with a 21-gauge needle, and 1 pass was made. Immediate cytopathology assessment was performed, and the specim en was deemed adequate for diagnosis. Preliminary cytology result is benign. Impressions [facility] [place] - 11/21/2021 9:[address] [place] Technically successful ultrasound guided biopsies of the bilateral breasts. An addendum will be issued once the final p athology result is available and reviewed. Examination: Post Procedure Mammogram Bi lateral 11/20/2021. Clinical Indication: Patient is a 81 y ears old female and is seen for post procedure mammogram. Findings: See Ultrasound-guided biopsy r eport done same date. Narrative [facility] [place] - 11/21/2021 9:[address] [place] Examination: Right Breast Ultrasound Guided Needle Biopsy with Marker Clip Placement and Post Biopsy Mammograms, . Clinical History: 81-year-old woman wi th an abnormal breast ultrasound presenting for biopsy. Indication: Suspicious finding(s) on rec ent breast ultrasound. Comparison: Mammogram from 11/20/2021. B reast Ultrasound from 11/20/2021. Technique: Ultrasound imaging of the rig ht breast was performed. The skin of the breast(s) was cleansed with chlorhexidin e. Local anesthesia was achieved with a total of 20ml 1% Lidocaine. Procedure: The procedure and its risks, benefits, and alternatives were explained in detail to the patient, who agreed to proceed and signed an informed consent form. All questions were answere d. The patient was brought to the ultrasoun d suite and was placed supine on the table. Site 1: The lesion in question was ident ified in the right axillary level III region. The biopsy needle was advanced t o the targeted lesion. Biopsy was performed with a 21-gauge needle, and 1 pass was made. Immediate cytopathology assessment was performed, and the specim en was deemed adequate for diagnosis. Preliminary cytology result is benign. Site 2: The lesion in question was ident ified in the right axillary level I region The biopsy trocar was advanced to the targeted lesion. Biopsy was performed with a 16-gauge automated core biopsy devise, and 2 passes were made.2 cores were obtained.A marker clip was de ployed into the biopsied lesion. At the conclusion of the procedure, pressure wa s held until cessation of bleeding. The skin incision was closed with Steri-stri ps and covered with a bandage. A [place] U-shaped marker clip was placed at the biopsy site. Post procedure mammography confirms expected positionin g of the marker clip(s) The clip marker lies within the biopsi ed lesion. Site 3: The lesion in question was ident ified in the right breast at 10 o'clock, 7cm from the nipple. The biopsy needle w as advanced to the targeted lesion. Biopsy was performed with a 14-gauge aut omated core biopsy device, and 4 passes were made. 4 cores were obtained.A marke r clip was deployed into the biopsied lesion. At the conclusion of the procedu re, pressure was held until cessation of bleeding. The skin incision was closed w ith Steri-strips and covered with a bandage. A Bard wing marker clip was placed at th e biopsy site. Post procedure mammography confirms expected positionin g of the marker clip(s) The clip marker lies within the biopsi ed lesion. Site 4: The lesion in question was ident ified in the right breast at 11 o'clock 1cm from the nipple. The biopsy trocar w as advanced to the targeted lesion. Biopsy was performed with a 14-gauge aut omated core biopsy device, and 3 passes were made.3 cores were obtained.A marker clip was deployed into the biopsied lesion. At the conclusion of the procedu re, pressure was held until cessation of bleeding. The skin incision was closed w ith Steri-strips and covered with a bandage. A Bard heart marker clip was placed at t he biopsy site. Post procedure mammography confirms expected positionin g of the marker clip(s) The clip marker lies within the biopsi ed lesion. Site 5: The lesion in question was ident ified in the left breast at 2 o'clock, 5cm from the nipple. The biopsy needle w as advanced to the targeted lesion. Biopsy was performed with a 14-gauge aut omated core biopsy device, and 3 passes were made. 3 cores were obtained.A marke r clip was deployed into the biopsied lesion. At the conclusion of the procedu re, pressure was held until cessation of bleeding. The skin incision was closed w ith Steri-strips and covered with a bandage. A Bio[employer] ribbon marker clip was placed at the biopsy site. Post procedure mammography confirms expected positionin g of the marker clip(s) The clip marker lies within the biopsi ed lesion. The estimated blood loss for the procedu re was minimal. The patient tolerated the procedure well without immediate com plications and left the department in good condition. Procedure Note Nupur Rosario, DO - 11/21/2021 Examination: Right Breast Ultrasound Rogers ded Needle Biopsy with Marker Clip Placement and Post Biopsy Mammograms, . Clinical History: 81-year-old woman wit h an abnormal breast ultrasound presenting for biopsy. Indication: Suspicious finding(s) on rec ent breast ultrasound. Comparison: Mammogram from 11/20/2021. Br east Ultrasound from 11/20/2021. Technique: Ultrasound imaging of the rig ht breast was performed. The skin of the breast(s) was cleansed with chlorhexidin e. Local anesthesia was achieved with a total of 20ml 1% Lidocaine. Procedure: The procedure and its risks, benefits, and alternatives were explained in detail to the patient, who agreed to proceed and signed an informed consent form. All questions were answere d. The patient was brought to the ultrasoun d suite and was placed supine on the table. Site 1: The lesion in question was ident ified in the right axillary level III region. The biopsy needle was advanced t o the targeted lesion. Biopsy was performed with a 21-gauge needle, and 1 pass was made. Immediate cytopathology assessment was performed, and the specim en was deemed adequate for diagnosis. Preliminary cytology result is benign. Site 2: The lesion in question was ident ified in the right axillary level I region The biopsy trocar was advanced t o the targeted lesion. Biopsy was performed with a 16-gauge automated core biopsy devise, and 2 passes were made.2 cores were obtained.A marker clip was de ployed into the biopsied lesion. At the conclusion of the procedure, pressure wa s held until cessation of bleeding. The skin incision was closed with Steri-stri ps and covered with a bandage. A [place] U-shaped marker clip was placed at the biopsy site. Post procedure mammography confirms expected positionin g of the marker clip(s) The clip marker lies within the biopsie d lesion. Site 3: The lesion in question was ident ified in the right breast at 10 o'clock, 7cm from the nipple. The biopsy needle w as advanced to the targeted lesion. Biopsy was performed with a 14-gauge aut omated core biopsy device, and 4 passes were made. 4 cores were obtained.A marke r clip was deployed into the biopsied lesion. At the conclusion of the procedu re, pressure was held until cessation of bleeding. The skin incision was closed w ith Steri-strips and covered with a bandage. A Bard wing marker clip was placed at th e biopsy site. Post procedure mammography confirms expected positionin g of the marker clip(s) The clip marker lies within the biopsie d lesion. Site 4: The lesion in question was ident ified in the right breast at 11 o'clock 1cm from the nipple. The biopsy trocar w as advanced to the targeted lesion. Biopsy was performed with a 14-gauge aut omated core biopsy device, and 3 passes were made.3 cores were obtained.A marker clip was deployed into the biopsied lesion. At the conclusion of the procedu re, pressure was held until cessation of bleeding. The skin incision was closed w ith Steri-strips and covered with a bandage. A Bard heart marker clip was placed at t he biopsy site. Post procedure mammography confirms expected positionin g of the marker clip(s) The clip marker lies within the biopsie d lesion. Site 5: The lesion in question was ident ified in the left breast at 2 o'clock, 5cm from the nipple. The biopsy needle w as advanced to the targeted lesion. Biopsy was performed with a 14-gauge aut omated core biopsy device, and 3 passes were made. 3 cores were obtained.A marke r clip was deployed into the biopsied lesion. At the conclusion of the procedu re, pressure was held until cessation of bleeding. The skin incision was closed w ith Steri-strips and covered with a bandage. A Bard ribbon marker clip was placed at the biopsy site. Post procedure mammography confirms expected positionin g of the marker clip(s) The clip marker lies within the biopsie d lesion. The estimated blood loss for the procedu re was minimal. The patient tolerated the procedure well without immediate com plications and left the department in good condition. IMPRESSION: Technically successful ultrasound guided biopsies of the bilateral breasts. An addendum will be issued once the final p athology result is available and reviewed. Examination: Post Procedure Mammogram Bi lateral 11/20/2021. Clinical Indication: Patient is a 81 ye ars old female and is seen for post procedure mammogram. Findings: See Ultrasound-guided biopsy r eport done same date. Performing Organization Address City/State/ZIP Code Phon e Number [facility] (ABNORMAL) US Head Neck Soft Tissue (11/20/2021 5:[address] [place]) Specimen Impressions [facility] - 11/20/2021 5:[address] [place] 1: Mass in the right breast upper outer quadrant at 10 o'clock located 7 centimeters from the nipple is suspiciou s. Ultrasound guided biopsy is recommended. 2: Mass in the right breast upper oute r quadrant at 11 o'clock located 1 centimeter from the nipple is suspicious . Ultrasound guided biopsy is recommended. 3: Two additional masses in the right breast lower hemisphere at 6 o'clock located 4 centimeters from the nipple an d 9:00 4cm form the nipple are suspicious. Biopsy may be considered if it would belt changer. 4: Lymph nodes in the right axilla are suspicious as above. Ultrasound guided biopsy is recommended. 5: Mass in the left breast upper outer quadrant at 2 o'clock located 5 centimeters from the nipple is suspiciou s. Ultrasound guided biopsy is recommended. 6: Mass in the left breast outer hemis phere at 3 o'clock located 5 centimeters from the nipple is suspicious. Ultrasoun d guided biopsy may be considered if it would belt changer. 7: Lymph nodes in the left axilla are suspicious. Ultrasound guided biopsy is recommended. BI-RADS Category 4C: Suspicious Abnormality Narrative [facility] - 11/20/2021 5:[address] [place] CLINICAL INDICATION: Patient is a 81 year old female and is s een for abnormal mammogram FILMS COMPARED The present examination has been compare d to a prior imaging study performed at [facility] on 11/20/2021. Images were obtained in multiple scannin g planes. Real-time sonographic imaging of both br easts (including all 4 quadrants and retroareolar region) was performed. Re al time sonographic imaging of bilateral axilla was performed. Real-time sonogr aphic imaging of bilateral regional suyapa basins including the axillary (level I,I I,III) and internal mammary regions was performed. 1: Additional evaluation was performed for the irregular mass seen on 11/20/2021. On the present examination, there is an irregular mass measuring 1.8 x 1 x 1.3 centimeters in the right breas t upper outer quadrant at 10 o'clock located 7 centimeters from the nipple. 2: There is an irregular mass measurin g 3 x 2.8 x 0.8 centimeters in the right breast upper outer quadrant at 11 o'cloc k located 1 centimeter from the nipple. This appears to extend towards the nippl e but does not involve the nipple. This is 0.8cm from the nipple. This is approx imately 3.3cm from the 10:00 mass. 3: There is an irregular mass measurin g 0.5 x 0.5 x 0.3 centimeters in the right breast lower hemisphere at 6 o'tana ck located 4 centimeters from the nipple. There is a fourth indeterminat e 0.7 x 0.3 x 0.7cm hypoechoic mass in the right breast 9:00 4cm from the nippl e. 4: There is a level I lymph node with cortical thickening measuring 1.7 x 0.8 x 1.5 centimeters in the right axilla. T here is a right axillary level III node measuring 1.7 x 0.5 x 0.6cm and a second 0.4cm level III node. No level II, internal mammary and supraclavicular lym phadenopathy. 5: Additional evaluation was performed for the left irregular mass seen on 11/20/2021. On the present examination, there is an irregular mass measuring 1.4 x 1 x 0.8 centimeters in the left breast upper outer quadrant at 2 o'clock located 5 centimeters from the nipple. 6: There is an irregular similar appea ring mass measuring 0.6 x 0.5 x 0.7 centimeters in the left breast outer hem isphere at 3 o'clock located 5 centimeters from the nipple. This is 1.8cm from the 2:00 mass. 7: There are two indeterminate level I lymph nodes largest measuring 1.7 x 0.7 x 0.8 centimeters in the left level I ax illa. No left level II, III and internal mammary chain adenopathy. Procedure Note Nupur Rosario DO - 11/20/2021 CLINICAL INDICATION: Patient is a 81 year old female and is s een for abnormal mammogram FILMS COMPARED The present examination has been compare d to a prior imaging study performed at [facility] on 11/20/2021. Images were obtained in multiple scannin g planes. Real-time sonographic imaging of both br easts (including all 4 quadrants and retroareolar region) was performed. Kendrick l time sonographic imaging of bilateral axilla was performed. Real-time sonogra phic imaging of bilateral regional suyapa basins including the axillary (level I,I I,III) and internal mammary regions was performed. 1: Additional evaluation was performed for the irregular mass seen on 11/20/2021. On the present examination, there is an irregular mass measuring 1.8 x 1 x 1.3 centimeters in the right breas t upper outer quadrant at 10 o'clock located 7 centimeters from the nipple. 2: There is an irregular mass measuring 3 x 2.8 x 0.8 centimeters in the right breast upper outer quadrant at 11 o'cloc k located 1 centimeter from the nipple. This appears to extend towards the nippl e but does not involve the nipple. This is 0.8cm from the nipple. This is approx imately 3.3cm from the 10:00 mass. 3: There is an irregular mass measuring 0.5 x 0.5 x 0.3 centimeters in the right breast lower hemisphere at 6 o'tana ck located 4 centimeters from the nipple. There is a fourth indeterminate 0.7 x 0.3 x 0.7cm hypoechoic mass in the right breast 9:00 4cm from the nippl e. 4: There is a level I lymph node with c ortical thickening measuring 1.7 x 0.8 x 1.5 centimeters in the right axilla. Th ere is a right axillary level III node measuring 1.7 x 0.5 x 0.6cm and a second 0.4cm level III node. No level II, internal mammary and supraclavicular lym phadenopathy. 5: Additional evaluation was performed for the left irregular mass seen on 11/20/2021. On the present examination, there is an irregular mass measuring 1.4 x 1 x 0.8 centimeters in the left breast upper outer quadrant at 2 o'clock located 5 centimeters from the nipple. 6: There is an irregular similar appear ing mass measuring 0.6 x 0.5 x 0.7 centimeters in the left breast outer hem isphere at 3 o'clock located 5 centimeters from the nipple. This is 1.8cm from the 2:00 mass. 7: There are two indeterminate level I lymph nodes largest measuring 1.7 x 0.7 x 0.8 centimeters in the left level I ax illa. No left level II, III and internal mammary chain adenopathy. IMPRESSION: 1: Mass in the right breast upper outer quadrant at 10 o'clock located 7 centimeters from the nipple is suspiciou s. Ultrasound guided biopsy is recommended. 2: Mass in the right breast upper outer quadrant at 11 o'clock located 1 centimeter from the nipple is suspicious . Ultrasound guided biopsy is recommended. 3: Two additional masses in the right b reast lower hemisphere at 6 o'clock located 4 centimeters from the nipple an d 9:00 4cm form the nipple are suspicious. Biopsy may be considered if it would belt changer. 4: Lymph nodes in the right axilla are suspicious as above. Ultrasound guided biopsy is recommended. 5: Mass in the left breast upper outer quadrant at 2 o'clock located 5 centimeters from the nipple is suspiciou s. Ultrasound guided biopsy is recommended. 6: Mass in the left breast outer hemisp here at 3 o'clock located 5 centimeters from the nipple is suspicious. Ultrasoun d guided biopsy may be considered if it would belt changer. 7: Lymph nodes in the left axilla are s uspicious. Ultrasound guided biopsy is recommended. BI-RADS Category 4C: Suspicious Abnormality Performing Organization Address City/State/ZIP Code Phon e Number [facility] (ABNORMAL) US Chest for Breast Ultrasound (Add-on Only) (11/20/2021 5:[address] [place]) Specimen Impressions [facility] - 11/20/2021 5:[address] [place] 1: Mass in the right breast upper outer quadrant at 10 o'clock located 7 centimeters from the nipple is suspiciou s. Ultrasound guided biopsy is recommended. 2: Mass in the right breast upper oute r quadrant at 11 o'clock located 1 centimeter from the nipple is suspicious . Ultrasound guided biopsy is recommended. 3: Two additional masses in the right breast lower hemisphere at 6 o'clock located 4 centimeters from the nipple an d 9:00 4cm form the nipple are suspicious. Biopsy may be considered if it would belt changer. 4: Lymph nodes in the right axilla are suspicious as above. Ultrasound guided biopsy is recommended. 5: Mass in the left breast upper outer quadrant at 2 o'clock located 5 centimeters from the nipple is suspiciou s. Ultrasound guided biopsy is recommended. 6: Mass in the left breast outer hemis phere at 3 o'clock located 5 centimeters from the nipple is suspicious. Ultrasoun d guided biopsy may be considered if it would belt changer. 7: Lymph nodes in the left axilla are suspicious. Ultrasound guided biopsy is recommended. BI-RADS Category 4C: Suspicious Abnormality Narrative [facility] - 11/20/2021 5:[address] [place] CLINICAL INDICATION: Patient is a 81 year old female and is s een for abnormal mammogram FILMS COMPARED The present examination has been compare d to a prior imaging study performed at [facility] on 11/20/2021. Images were obtained in multiple scannin g planes. Real-time sonographic imaging of both br easts (including all 4 quadrants and retroareolar region) was performed. Re al time sonographic imaging of bilateral axilla was performed. Real-time sonogr aphic imaging of bilateral regional suyapa basins including the axillary (level I,I I,III) and internal mammary regions was performed. 1: Additional evaluation was performed for the irregular mass seen on 11/20/2021. On the present examination, there is an irregular mass measuring 1.8 x 1 x 1.3 centimeters in the right breas t upper outer quadrant at 10 o'clock located 7 centimeters from the nipple. 2: There is an irregular mass measurin g 3 x 2.8 x 0.8 centimeters in the right breast upper outer quadrant at 11 o'cloc k located 1 centimeter from the nipple. This appears to extend towards the nippl e but does not involve the nipple. This is 0.8cm from the nipple. This is approx imately 3.3cm from the 10:00 mass. 3: There is an irregular mass measurin g 0.5 x 0.5 x 0.3 centimeters in the right breast lower hemisphere at 6 o'tana ck located 4 centimeters from the nipple. There is a fourth indeterminat e 0.7 x 0.3 x 0.7cm hypoechoic mass in the right breast 9:00 4cm from the nippl e. 4: There is a level I lymph node with cortical thickening measuring 1.7 x 0.8 x 1.5 centimeters in the right axilla. T here is a right axillary level III node measuring 1.7 x 0.5 x 0.6cm and a second 0.4cm level III node. No level II, internal mammary and supraclavicular lym phadenopathy. 5: Additional evaluation was performed for the left irregular mass seen on 11/20/2021. On the present examination, there is an irregular mass measuring 1.4 x 1 x 0.8 centimeters in the left breast upper outer quadrant at 2 o'clock located 5 centimeters from the nipple. 6: There is an irregular similar appea ring mass measuring 0.6 x 0.5 x 0.7 centimeters in the left breast outer hem isphere at 3 o'clock located 5 centimeters from the nipple. This is 1.8cm from the 2:00 mass. 7: There are two indeterminate level I lymph nodes largest measuring 1.7 x 0.7 x 0.8 centimeters in the left level I ax illa. No left level II, III and internal mammary chain adenopathy. Procedure Note Nupur Rosario DO - 11/20/2021 CLINICAL INDICATION: Patient is a 81 year old female and is s een for abnormal mammogram FILMS COMPARED The present examination has been compare d to a prior imaging study performed at [facility] on 11/20/2021. Images were obtained in multiple scannin g planes. Real-time sonographic imaging of both br easts (including all 4 quadrants and retroareolar region) was performed. Fariha l time sonographic imaging of bilateral axilla was performed. Real-time sonogra phic imaging of bilateral regional suyapa basins including the axillary (level I,I I,III) and internal mammary regions was performed. 1: Additional evaluation was performed for the irregular mass seen on 11/20/2021. On the present examination, there is an irregular mass measuring 1.8 x 1 x 1.3 centimeters in the right breas t upper outer quadrant at 10 o'clock located 7 centimeters from the nipple. 2: There is an irregular mass measuring 3 x 2.8 x 0.8 centimeters in the right breast upper outer quadrant at 11 o'cloc k located 1 centimeter from the nipple. This appears to extend towards the nippl e but does not involve the nipple. This is 0.8cm from the nipple. This is approx imately 3.3cm from the 10:00 mass. 3: There is an irregular mass measuring 0.5 x 0.5 x 0.3 centimeters in the right breast lower hemisphere at 6 o'tana ck located 4 centimeters from the nipple. There is a fourth indeterminate 0.7 x 0.3 x 0.7cm hypoechoic mass in the right breast 9:00 4cm from the nippl e. 4: There is a level I lymph node with c ortical thickening measuring 1.7 x 0.8 x 1.5 centimeters in the right axilla. Th ere is a right axillary level III node measuring 1.7 x 0.5 x 0.6cm and a second 0.4cm level III node. No level II, internal mammary and supraclavicular lym phadenopathy. 5: Additional evaluation was performed for the left irregular mass seen on 11/20/2021. On the present examination, there is an irregular mass measuring 1.4 x 1 x 0.8 centimeters in the left breast upper outer quadrant at 2 o'clock located 5 centimeters from the nipple. 6: There is an irregular similar appear ing mass measuring 0.6 x 0.5 x 0.7 centimeters in the left breast outer hem isphere at 3 o'clock located 5 centimeters from the nipple. This is 1.8cm from the 2:00 mass. 7: There are two indeterminate level I lymph nodes largest measuring 1.7 x 0.7 x 0.8 centimeters in the left level I ax illa. No left level II, III and internal mammary chain adenopathy. IMPRESSION: 1: Mass in the right breast upper outer quadrant at 10 o'clock located 7 centimeters from the nipple is suspiciou s. Ultrasound guided biopsy is recommended. 2: Mass in the right breast upper outer quadrant at 11 o'clock located 1 centimeter from the nipple is suspicious . Ultrasound guided biopsy is recommended. 3: Two additional masses in the right b reast lower hemisphere at 6 o'clock located 4 centimeters from the nipple an d 9:00 4cm form the nipple are suspicious. Biopsy may be considered if it would belt changer. 4: Lymph nodes in the right axilla are suspicious as above. Ultrasound guided biopsy is recommended. 5: Mass in the left breast upper outer quadrant at 2 o'clock located 5 centimeters from the nipple is suspiciou s. Ultrasound guided biopsy is recommended. 6: Mass in the left breast outer hemisp here at 3 o'clock located 5 centimeters from the nipple is suspicious. Ultrasoun d guided biopsy may be considered if it would belt changer. 7: Lymph nodes in the left axilla are s uspicious. Ultrasound guided biopsy is recommended. BI-RADS Category 4C: Suspicious Abnormality Performing Organization Address City/State/ZIP Code Phon e Number [facility] US Guided Breast Biopsy Left (11/20/2021 5:[address] [place]) Specimen Addenda Addendum by Nupur Rosario DO on 11/26/2021 1:16 PM CDT ADDENDED REPORT ----- 11/21/2021 at 14:04:49 Addendum: Site 6: The lesion in question was ident ified in the left axillary level I region. The biopsy needle was advanced t o the targeted lesion. Biopsy was performed with a 21-gauge needle, and 1 pass was made. Immediate cytopathology assessment was performed, and the specim en was deemed adequate for diagnosis. Preliminary cytology result is benign. 11/26/2021 Addendum: Diagnosis A: Breast, right, right breast 10:00, 7 cm FN, 1.8 cm palpable mass, ultrasound-guided core needle biopsy: INVASIVE DUCTAL CARCINOMA OF BREAST, HIS TOLOGIC GRADE 3, NUCLEAR GRADE 3 (HIGH-GRADE), WITH MICROPAPILLARY PATTER N, ADMIXED WITH LOW-GRADE TUBULAR PATTERN (SEE COMMENT). B: Breast, right, right breast 11:00, 1 cm FN, 3 cm palpable mass, ultrasound-guided core needle biopsy: INVASIVE DUCTAL CARCINOMA OF BREAST, HIS TOLOGIC GRADE 3, NUCLEAR GRADE 3 (HIGH-GRADE), WITH MICROPAPILLARY PATTER N, ADMIXED WITH LOW-GRADE TUBULAR PATTERN (SEE COMMENT). C: Lymph node(s), right, axillary level 1, 1.7 cm, ultrasound-guided core needle biopsy: METASTATIC ADENOCARCINOMA WITHIN ONE LYM PH NODE (09/14). SEE COMMENT D: Breast, left, left breast 2:00, 5 cm FN, 1.4 cm mass, ultrasound-guided core needle biopsy: Portion of the apocrine cyst with repara tive changes (see comment). Diagnosis A. Lymph node, left axilla, fine needle aspiration: No metastatic carcinoma identified Lymphoid tissue present Diagnosis A. Lymph node, right axillary, level III , fine needle aspiration: FEW CLUSTERS OF METASTATIC ADENOCARCINOM A (SEE COMMENT) Pathology results are concordant with im aging findings. Results sent via institutional email to Dr. Lira on 11/26/2021. Addendum by Nupur Rosario DO on 11/21/2021 2:[address] [place] ADDENDED REPORT ----- 11/21/2021 Addendum: Site 6: The lesion in question was ident ified in the left axillary level I region. The biopsy needle was advanced t o the targeted lesion. Biopsy was performed with a 21-gauge needle, and 1 pass was made. Immediate cytopathology assessment was performed, and the specim en was deemed adequate for diagnosis. Preliminary cytology result is benign. Impressions [facility] - 11/21/2021 9:[address] [place] Technically successful ultrasound guided biopsies of the bilateral breasts. An addendum will be issued once the final p athology result is available and reviewed. Examination: Post Procedure Mammogram Bi lateral 11/20/2021. Clinical Indication: Patient is a 81 y ears old female and is seen for post procedure mammogram. Findings: See Ultrasound-guided biopsy r eport done same date. Narrative [facility] - 11/21/2021 9:[address] [place] Examination: Right Breast Ultrasound Guided Needle Biopsy with Marker Clip Placement and Post Biopsy Mammograms, . Clinical History: 81-year-old woman wi th an abnormal breast ultrasound presenting for biopsy. Indication: Suspicious finding(s) on rec ent breast ultrasound. Comparison: Mammogram from 11/20/2021. B reast Ultrasound from 11/20/2021. Technique: Ultrasound imaging of the rig ht breast was performed. The skin of the breast(s) was cleansed with chlorhexidin e. Local anesthesia was achieved with a total of 20ml 1% Lidocaine. Procedure: The procedure and its risks, benefits, and alternatives were explained in detail to the patient, who agreed to proceed and signed an informed consent form. All questions were answere d. The patient was brought to the ultrasoun d suite and was placed supine on the table. Site 1: The lesion in question was ident ified in the right axillary level III region. The biopsy needle was advanced t o the targeted lesion. Biopsy was performed with a 21-gauge needle, and 1 pass was made. Immediate cytopathology assessment was performed, and the specim en was deemed adequate for diagnosis. Preliminary cytology result is benign. Site 2: The lesion in question was ident ified in the right axillary level I region The biopsy trocar was advanced to the targeted lesion. Biopsy was performed with a 16-gauge automated core biopsy devise, and 2 passes were made.2 cores were obtained.A marker clip was de ployed into the biopsied lesion. At the conclusion of the procedure, pressure wa s held until cessation of bleeding. The skin incision was closed with Steri-stri ps and covered with a bandage. A [place] U-shaped marker clip was placed at the biopsy site. Post procedure mammography confirms expected positionin g of the marker clip(s) The clip marker lies within the biopsi ed lesion. Site 3: The lesion in question was ident ified in the right breast at 10 o'clock, 7cm from the nipple. The biopsy needle w as advanced to the targeted lesion. Biopsy was performed with a 14-gauge aut omated core biopsy device, and 4 passes were made. 4 cores were obtained.A marke r clip was deployed into the biopsied lesion. At the conclusion of the procedu re, pressure was held until cessation of bleeding. The skin incision was closed w ith Steri-strips and covered with a bandage. A Bard wing marker clip was placed at th e biopsy site. Post procedure mammography confirms expected positionin g of the marker clip(s) The clip marker lies within the biopsi ed lesion. Site 4: The lesion in question was ident ified in the right breast at 11 o'clock 1cm from the nipple. The biopsy trocar w as advanced to the targeted lesion. Biopsy was performed with a 14-gauge aut omated core biopsy device, and 3 passes were made.3 cores were obtained.A marker clip was deployed into the biopsied lesion. At the conclusion of the procedu re, pressure was held until cessation of bleeding. The skin incision was closed w ith Steri-strips and covered with a bandage. A Bard heart marker clip was placed at t he biopsy site. Post procedure mammography confirms expected positionin g of the marker clip(s) The clip marker lies within the biopsi ed lesion. Site 5: The lesion in question was ident ified in the left breast at 2 o'clock, 5cm from the nipple. The biopsy needle w as advanced to the targeted lesion. Biopsy was performed with a 14-gauge aut omated core biopsy device, and 3 passes were made. 3 cores were obtained.A marke r clip was deployed into the biopsied lesion. At the conclusion of the procedu re, pressure was held until cessation of bleeding. The skin incision was closed w ith Steri-strips and covered with a bandage. A Bard ribbon marker clip was placed at the biopsy site. Post procedure mammography confirms expected positionin g of the marker clip(s) The clip marker lies within the biopsi ed lesion. The estimated blood loss for the procedu re was minimal. The patient tolerated the procedure well without immediate com plications and left the department in good condition. Procedure Note Nupur Rosario DO - 11/21/2021 Examination: Right Breast Ultrasound Rogers ded Needle Biopsy with Marker Clip Placement and Post Biopsy Mammograms, . Clinical History: 81-year-old woman wit h an abnormal breast ultrasound presenting for biopsy. Indication: Suspicious finding(s) on rec ent breast ultrasound. Comparison: Mammogram from 11/20/2021. Br east Ultrasound from 11/20/2021. Technique: Ultrasound imaging of the rig ht breast was performed. The skin of the breast(s) was cleansed with chlorhexidin e. Local anesthesia was achieved with a total of 20ml 1% Lidocaine. Procedure: The procedure and its risks, benefits, and alternatives were explained in detail to the patient, who agreed to proceed and signed an informed consent form. All questions were answere d. The patient was brought to the ultrasoun d suite and was placed supine on the table. Site 1: The lesion in question was ident ified in the right axillary level III region. The biopsy needle was advanced t o the targeted lesion. Biopsy was performed with a 21-gauge needle, and 1 pass was made. Immediate cytopathology assessment was performed, and the specim en was deemed adequate for diagnosis. Preliminary cytology result is benign. Site 2: The lesion in question was ident ified in the right axillary level I region The biopsy trocar was advanced t o the targeted lesion. Biopsy was performed with a 16-gauge automated core biopsy devise, and 2 passes were made.2 cores were obtained.A marker clip was de ployed into the biopsied lesion. At the conclusion of the procedure, pressure wa s held until cessation of bleeding. The skin incision was closed with Steri-stri ps and covered with a bandage. A [place] U-shaped marker clip was placed at the biopsy site. Post procedure mammography confirms expected positionin g of the marker clip(s) The clip marker lies within the biopsie d lesion. Site 3: The lesion in question was ident ified in the right breast at 10 o'clock, 7cm from the nipple. The biopsy needle w as advanced to the targeted lesion. Biopsy was performed with a 14-gauge aut omated core biopsy device, and 4 passes were made. 4 cores were obtained.A marke r clip was deployed into the biopsied lesion. At the conclusion of the procedu re, pressure was held until cessation of bleeding. The skin incision was closed w ith Steri-strips and covered with a bandage. A Bard wing marker clip was placed at th e biopsy site. Post procedure mammography confirms expected positionin g of the marker clip(s) The clip marker lies within the biopsie d lesion. Site 4: The lesion in question was ident ified in the right breast at 11 o'clock 1cm from the nipple. The biopsy trocar w as advanced to the targeted lesion. Biopsy was performed with a 14-gauge aut omated core biopsy device, and 3 passes were made.3 cores were obtained.A marker clip was deployed into the biopsied lesion. At the conclusion of the procedu re, pressure was held until cessation of bleeding. The skin incision was closed w ith Steri-strips and covered with a bandage. A Bard heart marker clip was placed at t he biopsy site. Post procedure mammography confirms expected positionin g of the marker clip(s) The clip marker lies within the biopsie d lesion. Site 5: The lesion in question was ident ified in the left breast at 2 o'clock, 5cm from the nipple. The biopsy needle w as advanced to the targeted lesion. Biopsy was performed with a 14-gauge aut omated core biopsy device, and 3 passes were made. 3 cores were obtained.A marke r clip was deployed into the biopsied lesion. At the conclusion of the procedu re, pressure was held until cessation of bleeding. The skin incision was closed w ith Steri-strips and covered with a bandage. A Bard ribbon marker clip was placed at the biopsy site. Post procedure mammography confirms expected positionin g of the marker clip(s) The clip marker lies within the biopsie d lesion. The estimated blood loss for the procedu re was minimal. The patient tolerated the procedure well without immediate com plications and left the department in good condition. IMPRESSION: Technically successful ultrasound guided biopsies of the bilateral breasts. An addendum will be issued once the final p athology result is available and reviewed. Examination: Post Procedure Mammogram Bi lateral 11/20/2021. Clinical Indication: Patient is a 81 ye ars old female and is seen for post procedure mammogram. Findings: See Ultrasound-guided biopsy r eport done same date. Performing Organization Address City/State/ZIP Code Phon e Number [facility] (ABNORMAL) US Breast Complete Bilateral (11/20/2021 5:[address] [place]) Specimen Impressions [facility] - 11/20/2021 5:[address] [place] 1: Mass in the right breast upper outer quadrant at 10 o'clock located 7 centimeters from the nipple is suspiciou s. Ultrasound guided biopsy is recommended. 2: Mass in the right breast upper oute r quadrant at 11 o'clock located 1 centimeter from the nipple is suspicious . Ultrasound guided biopsy is recommended. 3: Two additional masses in the right breast lower hemisphere at 6 o'clock located 4 centimeters from the nipple an d 9:00 4cm form the nipple are suspicious. Biopsy may be considered if it would belt changer. 4: Lymph nodes in the right axilla are suspicious as above. Ultrasound guided biopsy is recommended. 5: Mass in the left breast upper outer quadrant at 2 o'clock located 5 centimeters from the nipple is suspiciou s. Ultrasound guided biopsy is recommended. 6: Mass in the left breast outer hemis phere at 3 o'clock located 5 centimeters from the nipple is suspicious. Ultrasoun d guided biopsy may be considered if it would belt changer. 7: Lymph nodes in the left axilla are suspicious. Ultrasound guided biopsy is recommended. BI-RADS Category 4C: Suspicious Abnormality Narrative [facility] - 11/20/2021 5:[address] [place] CLINICAL INDICATION: Patient is a 81 year old female and is s een for abnormal mammogram FILMS COMPARED The present examination has been compare d to a prior imaging study performed at [facility] on 11/20/2021. Images were obtained in multiple scannin g planes. Real-time sonographic imaging of both br easts (including all 4 quadrants and retroareolar region) was performed. Re al time sonographic imaging of bilateral axilla was performed. Real-time sonogr aphic imaging of bilateral regional suyapa basins including the axillary (level I,I I,III) and internal mammary regions was performed. 1: Additional evaluation was performed for the irregular mass seen on 11/20/2021. On the present examination, there is an irregular mass measuring 1.8 x 1 x 1.3 centimeters in the right breas t upper outer quadrant at 10 o'clock located 7 centimeters from the nipple. 2: There is an irregular mass measurin g 3 x 2.8 x 0.8 centimeters in the right breast upper outer quadrant at 11 o'cloc k located 1 centimeter from the nipple. This appears to extend towards the nippl e but does not involve the nipple. This is 0.8cm from the nipple. This is approx imately 3.3cm from the 10:00 mass. 3: There is an irregular mass measurin g 0.5 x 0.5 x 0.3 centimeters in the right breast lower hemisphere at 6 o'tana ck located 4 centimeters from the nipple. There is a fourth indeterminat e 0.7 x 0.3 x 0.7cm hypoechoic mass in the right breast 9:00 4cm from the nippl e. 4: There is a level I lymph node with cortical thickening measuring 1.7 x 0.8 x 1.5 centimeters in the right axilla. T here is a right axillary level III node measuring 1.7 x 0.5 x 0.6cm and a second 0.4cm level III node. No level II, internal mammary and supraclavicular lym phadenopathy. 5: Additional evaluation was performed for the left irregular mass seen on 11/20/2021. On the present examination, there is an irregular mass measuring 1.4 x 1 x 0.8 centimeters in the left breast upper outer quadrant at 2 o'clock located 5 centimeters from the nipple. 6: There is an irregular similar appea ring mass measuring 0.6 x 0.5 x 0.7 centimeters in the left breast outer hem isphere at 3 o'clock located 5 centimeters from the nipple. This is 1.8cm from the 2:00 mass. 7: There are two indeterminate level I lymph nodes largest measuring 1.7 x 0.7 x 0.8 centimeters in the left level I ax illa. No left level II, III and internal mammary chain adenopathy. Procedure Note Nupur Rosario DO - 11/20/2021 CLINICAL INDICATION: Patient is a 81 year old female and is s een for abnormal mammogram FILMS COMPARED The present examination has been compare d to a prior imaging study performed at [facility] on 11/20/2021. Images were obtained in multiple scannin g planes. Real-time sonographic imaging of both br easts (including all 4 quadrants and retroareolar region) was performed. Fariha l time sonographic imaging of bilateral axilla was performed. Real-time sonogra phic imaging of bilateral regional suyapa basins including the axillary (level I,I I,III) and internal mammary regions was performed. 1: Additional evaluation was performed for the irregular mass seen on 11/20/2021. On the present examination, there is an irregular mass measuring 1.8 x 1 x 1.3 centimeters in the right breas t upper outer quadrant at 10 o'clock located 7 centimeters from the nipple. 2: There is an irregular mass measuring 3 x 2.8 x 0.8 centimeters in the right breast upper outer quadrant at 11 o'cloc k located 1 centimeter from the nipple. This appears to extend towards the nippl e but does not involve the nipple. This is 0.8cm from the nipple. This is approx imately 3.3cm from the 10:00 mass. 3: There is an irregular mass measuring 0.5 x 0.5 x 0.3 centimeters in the right breast lower hemisphere at 6 o'tana ck located 4 centimeters from the nipple. There is a fourth indeterminate 0.7 x 0.3 x 0.7cm hypoechoic mass in the right breast 9:00 4cm from the nippl e. 4: There is a level I lymph node with c ortical thickening measuring 1.7 x 0.8 x 1.5 centimeters in the right axilla. Th ere is a right axillary level III node measuring 1.7 x 0.5 x 0.6cm and a second 0.4cm level III node. No level II, internal mammary and supraclavicular lym phadenopathy. 5: Additional evaluation was performed for the left irregular mass seen on 11/20/2021. On the present examination, there is an irregular mass measuring 1.4 x 1 x 0.8 centimeters in the left breast upper outer quadrant at 2 o'clock located 5 centimeters from the nipple. 6: There is an irregular similar appear ing mass measuring 0.6 x 0.5 x 0.7 centimeters in the left breast outer hem isphere at 3 o'clock located 5 centimeters from the nipple. This is 1.8cm from the 2:00 mass. 7: There are two indeterminate level I lymph nodes largest measuring 1.7 x 0.7 x 0.8 centimeters in the left level I ax illa. No left level II, III and internal mammary chain adenopathy. IMPRESSION: 1: Mass in the right breast upper outer quadrant at 10 o'clock located 7 centimeters from the nipple is suspiciou s. Ultrasound guided biopsy is recommended. 2: Mass in the right breast upper outer quadrant at 11 o'clock located 1 centimeter from the nipple is suspicious . Ultrasound guided biopsy is recommended. 3: Two additional masses in the right b reast lower hemisphere at 6 o'clock located 4 centimeters from the nipple an d 9:00 4cm form the nipple are suspicious. Biopsy may be considered if it would belt changer. 4: Lymph nodes in the right axilla are suspicious as above. Ultrasound guided biopsy is recommended. 5: Mass in the left breast upper outer quadrant at 2 o'clock located 5 centimeters from the nipple is suspiciou s. Ultrasound guided biopsy is recommended. 6: Mass in the left breast outer hemisp here at 3 o'clock located 5 centimeters from the nipple is suspicious. Ultrasoun d guided biopsy may be considered if it would belt changer. 7: Lymph nodes in the left axilla are s uspicious. Ultrasound guided biopsy is recommended. BI-RADS Category 4C: Suspicious Abnormality Performing Organization Address City/State/ZIP Code Phon e Number [facility] US Guided Axillary Lymph Node [facility]NA - Left for Breast Ultrasound (11/20/2021 5:[address] [place]) Specimen Addenda Addendum by Nupur Rosario DO on 11/26/2021 1:16 PM CDT ADDENDED REPORT ----- 11/21/2021 at 14:04:49 Addendum: Site 6: The lesion in question was ident ified in the left axillary level I region. The biopsy needle was advanced t o the targeted lesion. Biopsy was performed with a 21-gauge needle, and 1 pass was made. Immediate cytopathology assessment was performed, and the specim en was deemed adequate for diagnosis. Preliminary cytology result is benign. 11/26/2021 Addendum: Diagnosis A: Breast, right, right breast 10:00, 7 cm FN, 1.8 cm palpable mass, ultrasound-guided core needle biopsy: INVASIVE DUCTAL CARCINOMA OF BREAST, HIS TOLOGIC GRADE 3, NUCLEAR GRADE 3 (HIGH-GRADE), WITH MICROPAPILLARY PATTER N, ADMIXED WITH LOW-GRADE TUBULAR PATTERN (SEE COMMENT). B: Breast, right, right breast 11:00, 1 cm FN, 3 cm palpable mass, ultrasound-guided core needle biopsy: INVASIVE DUCTAL CARCINOMA OF BREAST, HIS TOLOGIC GRADE 3, NUCLEAR GRADE 3 (HIGH-GRADE), WITH MICROPAPILLARY PATTER N, ADMIXED WITH LOW-GRADE TUBULAR PATTERN (SEE COMMENT). C: Lymph node(s), right, axillary level 1, 1.7 cm, ultrasound-guided core needle biopsy: METASTATIC ADENOCARCINOMA WITHIN ONE LYM PH NODE (1/). SEE COMMENT D: Breast, left, left breast 2:00, 5 cm FN, 1.4 cm mass, ultrasound-guided core needle biopsy: Portion of the apocrine cyst with repara tive changes (see comment). Diagnosis A. Lymph node, left axilla, fine needle aspiration: No metastatic carcinoma identified Lymphoid tissue present Diagnosis A. Lymph node, right axillary, level III , fine needle aspiration: FEW CLUSTERS OF METASTATIC ADENOCARCINOM A (SEE COMMENT) Pathology results are concordant with im aging findings. Results sent via institutional email to Dr. Lira on 11/26/2021. Addendum by Nupur Rosario DO on 11/21/2021 2:[address] [place] ADDENDED REPORT ----- 11/21/2021 Addendum: Site 6: The lesion in question was ident ified in the left axillary level I region. The biopsy needle was advanced t o the targeted lesion. Biopsy was performed with a 21-gauge needle, and 1 pass was made. Immediate cytopathology assessment was performed, and the specim en was deemed adequate for diagnosis. Preliminary cytology result is benign. Impressions [facility] - 11/21/2021 9:[address] [place] Technically successful ultrasound guided biopsies of the bilateral breasts. An addendum will be issued once the final p athology result is available and reviewed. Examination: Post Procedure Mammogram Bi lateral 11/20/2021. Clinical Indication: Patient is a 81 y ears old female and is seen for post procedure mammogram. Findings: See Ultrasound-guided biopsy r eport done same date. Narrative [facility] - 11/21/2021 9:[address] [place] Examination: Right Breast Ultrasound Guided Needle Biopsy with Marker Clip Placement and Post Biopsy Mammograms, . Clinical History: 81-year-old woman wi th an abnormal breast ultrasound presenting for biopsy. Indication: Suspicious finding(s) on rec ent breast ultrasound. Comparison: Mammogram from 11/20/2021. B reast Ultrasound from 11/20/2021. Technique: Ultrasound imaging of the rig ht breast was performed. The skin of the breast(s) was cleansed with chlorhexidin e. Local anesthesia was achieved with a total of 20ml 1% Lidocaine. Procedure: The procedure and its risks, benefits, and alternatives were explained in detail to the patient, who agreed to proceed and signed an informed consent form. All questions were answere d. The patient was brought to the ultrasoun d suite and was placed supine on the table. Site 1: The lesion in question was ident ified in the right axillary level III region. The biopsy needle was advanced t o the targeted lesion. Biopsy was performed with a 21-gauge needle, and 1 pass was made. Immediate cytopathology assessment was performed, and the specim en was deemed adequate for diagnosis. Preliminary cytology result is benign. Site 2: The lesion in question was ident ified in the right axillary level I region The biopsy trocar was advanced to the targeted lesion. Biopsy was performed with a 16-gauge automated core biopsy devise, and 2 passes were made.2 cores were obtained.A marker clip was de ployed into the biopsied lesion. At the conclusion of the procedure, pressure wa s held until cessation of bleeding. The skin incision was closed with Steri-stri ps and covered with a bandage. A Cytosorbents U-shaped marker clip was placed at the biopsy site. Post procedure mammography confirms expected positionin g of the marker clip(s) The clip marker lies within the biopsi ed lesion. Site 3: The lesion in question was ident ified in the right breast at 10 o'clock, 7cm from the nipple. The biopsy needle w as advanced to the targeted lesion. Biopsy was performed with a 14-gauge aut omated core biopsy device, and 4 passes were made. 4 cores were obtained.A marke r clip was deployed into the biopsied lesion. At the conclusion of the procedu re, pressure was held until cessation of bleeding. The skin incision was closed w ith Steri-strips and covered with a bandage. A BioDetego wing marker clip was placed at th e biopsy site. Post procedure mammography confirms expected positionin g of the marker clip(s) The clip marker lies within the biopsi ed lesion. Site 4: The lesion in question was ident ified in the right breast at 11 o'clock 1cm from the nipple. The biopsy trocar w as advanced to the targeted lesion. Biopsy was performed with a 14-gauge aut omated core biopsy device, and 3 passes were made.3 cores were obtained.A marker clip was deployed into the biopsied lesion. At the conclusion of the procedu re, pressure was held until cessation of bleeding. The skin incision was closed w ith Steri-strips and covered with a bandage. A Bard heart marker clip was placed at t he biopsy site. Post procedure mammography confirms expected positionin g of the marker clip(s) The clip marker lies within the biopsi ed lesion. Site 5: The lesion in question was ident ified in the left breast at 2 o'clock, 5cm from the nipple. The biopsy needle w as advanced to the targeted lesion. Biopsy was performed with a 14-gauge aut omated core biopsy device, and 3 passes were made. 3 cores were obtained.A marke r clip was deployed into the biopsied lesion. At the conclusion of the procedu re, pressure was held until cessation of bleeding. The skin incision was closed w ith Steri-strips and covered with a bandage. A Bard ribbon marker clip was placed at the biopsy site. Post procedure mammography confirms expected positionin g of the marker clip(s) The clip marker lies within the biopsi ed lesion. The estimated blood loss for the procedu re was minimal. The patient tolerated the procedure well without immediate com plications and left the department in good condition. Procedure Note Nupur Rosario DO - 11/21/2021 Examination: Right Breast Ultrasound Rogers ded Needle Biopsy with Marker Clip Placement and Post Biopsy Mammograms, . Clinical History: 81-year-old woman wit h an abnormal breast ultrasound presenting for biopsy. Indication: Suspicious finding(s) on rec ent breast ultrasound. Comparison: Mammogram from 11/20/2021. Br east Ultrasound from 11/20/2021. Technique: Ultrasound imaging of the rig ht breast was performed. The skin of the breast(s) was cleansed with chlorhexidin e. Local anesthesia was achieved with a total of 20ml 1% Lidocaine. Procedure: The procedure and its risks, benefits, and alternatives were explained in detail to the patient, who agreed to proceed and signed an informed consent form. All questions were answere d. The patient was brought to the ultrasoun d suite and was placed supine on the table. Site 1: The lesion in question was ident ified in the right axillary level III region. The biopsy needle was advanced t o the targeted lesion. Biopsy was performed with a 21-gauge needle, and 1 pass was made. Immediate cytopathology assessment was performed, and the specim en was deemed adequate for diagnosis. Preliminary cytology result is benign. Site 2: The lesion in question was ident ified in the right axillary level I region The biopsy trocar was advanced t o the targeted lesion. Biopsy was performed with a 16-gauge automated core biopsy devise, and 2 passes were made.2 cores were obtained.A marker clip was de ployed into the biopsied lesion. At the conclusion of the procedure, pressure wa s held until cessation of bleeding. The skin incision was closed with Steri-stri ps and covered with a bandage. A videof.meark U-shaped marker clip was placed at the biopsy site. Post procedure mammography confirms expected positionin g of the marker clip(s) The clip marker lies within the biopsie d lesion. Site 3: The lesion in question was ident ified in the right breast at 10 o'clock, 7cm from the nipple. The biopsy needle w as advanced to the targeted lesion. Biopsy was performed with a 14-gauge aut omated core biopsy device, and 4 passes were made. 4 cores were obtained.A marke r clip was deployed into the biopsied lesion. At the conclusion of the procedu re, pressure was held until cessation of bleeding. The skin incision was closed w ith Steri-strips and covered with a bandage. A BioDetego wing marker clip was placed at th e biopsy site. Post procedure mammography confirms expected positionin g of the marker clip(s) The clip marker lies within the biopsie d lesion. Site 4: The lesion in question was ident ified in the right breast at 11 o'clock 1cm from the nipple. The biopsy trocar w as advanced to the targeted lesion. Biopsy was performed with a 14-gauge aut omated core biopsy device, and 3 passes were made.3 cores were obtained.A marker clip was deployed into the biopsied lesion. At the conclusion of the procedu re, pressure was held until cessation of bleeding. The skin incision was closed w ith Steri-strips and covered with a bandage. A Bard heart marker clip was placed at t he biopsy site. Post procedure mammography confirms expected positionin g of the marker clip(s) The clip marker lies within the biopsie d lesion. Site 5: The lesion in question was ident ified in the left breast at 2 o'clock, 5cm from the nipple. The biopsy needle w as advanced to the targeted lesion. Biopsy was performed with a 14-gauge aut omated core biopsy device, and 3 passes were made. 3 cores were obtained.A marke r clip was deployed into the biopsied lesion. At the conclusion of the procedu re, pressure was held until cessation of bleeding. The skin incision was closed w ith Steri-strips and covered with a bandage. A Bard ribbon marker clip was placed at the biopsy site. Post procedure mammography confirms expected positionin g of the marker clip(s) The clip marker lies within the biopsie d lesion. The estimated blood loss for the procedu re was minimal. The patient tolerated the procedure well without immediate com plications and left the department in good condition. IMPRESSION: Technically successful ultrasound guided biopsies of the bilateral breasts. An addendum will be issued once the final p athology result is available and reviewed. Examination: Post Procedure Mammogram Bi lateral 11/20/2021. Clinical Indication: Patient is a 81 ye ars old female and is seen for post procedure mammogram. Findings: See Ultrasound-guided biopsy r eport done same date. Performing Organization Address City/State/ZIP Code Phon e Number [facility] Cytology Image-Guided FNA Interpretation (11/20/2021 3:[address] [place])Only the most recent of2 resultswithin the time period is included. Gross Description A: [facility] Specimens procured: 2 Diff Quik; 4 Pap Stain Slides 10 ml, in RPMI 1 Cytospin Size: 1.7 cm. Immediate assessment for specimen adequacy was made x1 by Dr. Martínez. Immediate Assessment Adequate cellularity, [facility] favor benign Major Classification [facility]/benign [facility] Electro nically signed by Elma Martínez MD on 2021 at 12:13 PM Diagnosis A. Lymph node, left axilla, fine needle aspiration: [facility] Lymphoid tissue present at 1 2:13 PM Retained/Biomarker SR: 7 S [facility] Testing Informational Points Some tests reported [facility] here may have been developed and performance characteristics determined by [facility]. These tests have not been specifically cleared or approved by the U.S. Food and Drug Administration. This case originated at [facility], [address] [place] [address]. Specimen Fine Needle Asp - Lymph Node(s), Left, A xilla Performing Organization Address City/State/ZIP Code Phon e Number [facility] [place] [address] [id number] [facility] Pathology Biopsy Interpretation (11/20/2021 3:[address] [place])Only the most recent of 2 resultswithin the time period is included. Submitted Mammography abnormal [facility] Clinical History [R92.8] Diagnosis A: Breast, right, right jos[address] st 10:00, 7 cm FN, 1.8 cm palpable mass, ultrasound-guided core needle biopsy: [facility] El ectronically INVASIVE DUCTAL CARCINOMA OF BREAST, HISTOLOGIC GRADE 3, NUCLEAR GRADE 3 (HIGH- GRADE), WITH MICROPAPILLARY PATTERN, ADMIXED WITH LOW-GRADE TUBULAR PATTERN (SEE COMMENT). signed by Kel Israel MD B: Breast, right, right jos[address] st 11:00, 1 cm FN, 3 cm palpable mass, ultrasound- guided core needle biopsy: on 11/25/2021 at INVASIVE DUCTAL CARCINOMA OF BREAST, HISTOLOGIC GRADE 3, NUCLEAR GRADE 3 (HIGH- GRADE), WITH MICROPAPILLARY PATTERN, ADMIXED WITH LOW-GRADE TUBULAR PATTERN (SEE COMMENT). 11:06 AM C: Lymph node(s), right, axi llary level 1, 1.7 cm, ultrasound-guided core needle biopsy: METASTATIC ADENOCARCINOMA WITHIN ONE LYMPH NODE (09/14). SEE COMMENT D: Breast, left, left breast 2:00, 5 cm FN, 1.4 cm mass, ultrasound-guided core needle biopsy: Portion of the apocrine cyst with reparative changes ( see comment). Comment The invasive carcinoma at philip th sites A and B has two distinctive histologic patterns: invasive micropapillary that has high-grade and is adjacent to classic invasive tubular pattern that has low-grade. [facility] Both of these histologic pa tterns have identical receptor subtype as described below. The metastasis in the axillary node has tubular pattern. 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 Immunohistochemical stains w ere performed on tissue sections from specimen A. The carcinoma strongly expresses GATA3 and mammaglobin, confirming the mammary origin. An immunostain for ERG highlights e ndothelial cells and did not demonstrate any evidence of lymphovascular invasion. Biomarker Results: Immunohistochemical staining is performed in our lab o n service center representative Paraffin-embedded section(s) Specimen Diagnosis: INVASIVE DUCTAL CARCINOMA Site: Right Breast Grade: N/A Block(s): A2 Biomarker(s): Estrogen Receptor: Antibody Clone: 6F11 (Leica) Positive = 11-100%, Low Positive = 1-10% Reference: Latasha et al. Arch Pathol Lab Med 2019 Results: Positive Percent Stainin % See comment Appropriate controls are present on the slide. Stain Intensity: Strong Progesterone Receptor: Antibody Clone: GA 16 (Leica) Positive = 10-100%, Low Positive = 1-9% Reference: Latasha et al. Arch Pathol Lab Med 2019 Results: Positive Percent Stainin % See comment Appropriate controls are present on the slide. Staining Intensity: Strong HER2: Antibody Clone: 4B5 ([employer] [employer]) Positive cases are those wi th circumferential membrane staining that is complete, intense, and within >10% of tumor cells (Score 3+). Negative cases are defined as those with no observable staining , or membrane staining that is incomplete and is faint/barely perceptible and within less than or equal to 10% of tumor cells (Score 0) or incomplete membrane staining that is faint/barely perceptible a nd within >10% of tumor cell s (Score 1+). Equivocal or indeterminate cases are those with circumferential membrane staining that is incomplete and or weak / moderate and within >10% of tumor cell s or complete and circumfere ntial membrane staining that is intense and within less than or equal to 10% of tumor cells (Score 2+). Reference: Jose Francisco et al. J Clin Oncol 36:2105-22 2018 Results: Negative Percent Staining: <1 % staining See comment Score: 0 See comment FISH Evaluation: NO, FISH will not be evaluated KI-67: Antibody Clone: MIB1 (DAKO) Low Positive = <17%, Moderate Positive= 17-35%, High Positive = >35% Results: Low (<17%) Percent Stainin % See comment Comment: Staining of receptors is mesfin ntical and both the invasive micropapillary and tubular patterns. The percent Ki-67 staining was 15% in the invasive micropapillary pattern and 5% in the invasive tubular pattern. Footnote: Breast specimens used for de termining prognostic / predictive markers are fixed in formalin for at least 6 hours and generally less than 48 hours, but formalin fixation exceeds 48 hours on holidays and weekends. If the specimen has been fix ed for longer than 72 hours, a negative Her 2 immunohistochemical (IHC) result may theoretically represent a false negative, although studies have shown that specimens can be fixed for as long as 2 week s without affecting IHC staining results. Therefore, a negative result should be verified by additional tests on alternative samples if appropriate. Reference Maldonado et al. A ppl. Immunohistochem. Mol Morp 2005; 13; 283-286. If the specimen was not init ially processed at [facility], pre-analytical fixation times may be found in the accompanying pathology report. These assays have not been validated on decalcified tissues. Results should be interprete d with caution given the likelihood of false negativity on decalcified specimens. Gross Description A: [facility] Breast, right, right breast 10:00: 4 yellow-white fibrofatty tissue cores ranging from 1cm to 2 cm in length and 0.2 cm in diameter, entirely submitted in A1-A2 (2 cores each). ET B: Breast, right, right breast 11:00 : 3 yellow-white fibrofatty tissue cores ranging from 0.8cm to 1.2 cm in length and 0.2 cm in diameter, entirely submitted in B1 (2 cores) and B2 (1 core). ET C: Lymph node(s), right, axilla ry level i, : 2 yellow-curry fibrofatty tissue cores, 0.7 cm and 1.1 cm in length and 0.15 cm in diameter, entirely submitted in C1. ET D: Breast, left, left breast 2: 00: 3 white-yellow fibrofatty tissue cores ranging from 0.7cm to 1.8 cm in length and 0.2 cm in diameter, entirely submitted in D1 (2 cores) and D2 (1 core). ET Disclaimer "Some tests reported here [facility] may have been developed and performance characteristics determined by [facility]. These tests have not been specifically cleared or approved by the U.S. Food and Drug Administration. If applicable, controls were reviewed and showed appropriate reactivity." Specimen Tissue - Breast, Left Tissue - Breast, Right Tissue - Breast, Right Tissue - Lymph Node(s), Right, Axillary Level I Performing Organization Address City/State/ZIP Code Phon e Number [facility] [place] [address] [id number] (ABNORMAL) Mammography Digital Diagnostic Bilateral with Joe (11/20/2021 1:[address] [place]) Specimen Impressions [facility] - 11/20/2021 5:[address] [place] 1: Mass in the right breast upper outer quadrant at 10 o'clock located 6 centimeters from the nipple requires add itional imaging evaluation. An ultrasound exam is recommended. 2: Mass in the right breast upper oute r quadrant at 11 o'clock located 2 centimeters from the nipple requires add itional imaging evaluation. An ultrasound exam is recommended. 3: Lymph node in the right axilla requ ires additional imaging evaluation. An ultrasound exam is recommended. 4: Left breast mass requires additiona l imaging evaluation. An ultrasound exam is recommended. BI-RADS Category 0: Incomplete: Needs Additional Imaging Meryl luation Narrative [facility] [place] - 11/20/2021 5:[address] [place] CLINICAL INDICATION: Patient is a 81 year old female and is s een for breast lump MAMMO DIGITAL DIAGNOSTIC BILATERAL W NICOLAS O Digital Mammogram evaluated with Compute r Aided Detection (CAD). COMPARISON: The present examination has been compare d to a prior imaging study performed at an outside location on 11/01/2021. FINDINGS: The breasts are heterogeneously dense, w hich may obscure small masses. 1: There is an irregular mass measurin g 1.5 x 1.2 x 1.2 centimeters in the right breast upper outer quadrant at 10 o'clock located 6 centimeters from the nipple. Mass correlates to the palpable finding in the right breast. 2: There is an irregular mass measurin g 1.8 x 1.4 x 1.3 centimeters in the right breast upper outer quadrant at 11 o'clock located 2 centimeters from the nipple. Mass correlates to the palpable finding in the right breast. 3: There is a partially visualized right axillary node. 4: In the left breast, there is a 1.1cm mass in the left breast 2:00 6cm from the nipple. Tomosynthesis performed in CC and MLO pr ojections. Procedure Note Nupur Rosario, DO - 11/20/2021 CLINICAL INDICATION: Patient is a 81 year old female and is s een for breast lump MAMMO DIGITAL DIAGNOSTIC BILATERAL W NICOLAS O Digital Mammogram evaluated with Compute r Aided Detection (CAD). COMPARISON: The present examination has been compare d to a prior imaging study performed at an outside location on 11/01/2021. FINDINGS: The breasts are heterogeneously dense, w hich may obscure small masses. 1: There is an irregular mass measuring 1.5 x 1.2 x 1.2 centimeters in the right breast upper outer quadrant at 10 o'clock located 6 centimeters from the nipple. Mass correlates to the palpable finding in the right breast. 2: There is an irregular mass measuring 1.8 x 1.4 x 1.3 centimeters in the right breast upper outer quadrant at 11 o'clock located 2 centimeters from the nipple. Mass correlates to the palpable finding in the right breast. 3: There is a partially visualized right axillary node. 4: In the left breast, there is a 1.1cm mass in the left breast 2:00 6cm from the nipple. Tomosynthesis performed in CC and MLO pr ojections. IMPRESSION: 1: Mass in the right breast upper outer quadrant at 10 o'clock located 6 centimeters from the nipple requires add itional imaging evaluation. An ultrasound exam is recommended. 2: Mass in the right breast upper outer quadrant at 11 o'clock located 2 centimeters from the nipple requires add itional imaging evaluation. An ultrasound exam is recommended. 3: Lymph node in the right axilla requi res additional imaging evaluation. An ultrasound exam is recommended. 4: Left breast mass requires additional imaging evaluation. An ultrasound exam is recommended. BI-RADS Category 0: Incomplete: Needs Additional Imaging Meryl luation Performing Organization Address City/State/ZIP Code Phon e Number [facility] Mammo (11/01/2021 12:[address] [place]) Specimen Narrative [facility] - 11/20/2021 12:[address] [place] Study acquired at another institution. For comparison only. No MD Chin originated interpretation requested or a vailable. Performing Organization Address City/State/ZIP Code Phon e Number [facility] US Breast (11/01/2021 12:[address] [place]) Specimen Narrative [facility] - 11/20/2021 12:[address] [place] Study acquired at another institution. For comparison only. No MD Chin originated interpretation requested or a vailable. Performing Organization Address City/State/ZIP Code Phon e Number [facility] after 11/30/2020 Insurance Payer Benefit Plan / Subscriber ID Effective Dates Phone Addre ss Type Group AETNA MEDICARE AETNA MEDICARE [id number] 2021-Presen [address] [place] [address] Care Teams Shoe Shiner Relationship Specialty Start Date End Date Gonsalo Gracia PCP - External 01/03/16 MD Tony Referring [address] [facility] [place], [place] [phone] Gonsalo Gracia PCP - External Follow 01/03/16 MD Tony Up A [address] [place], [place] [id number] Mónica Joseph, PCP - General Gynecologic Medical 02/26/16 MD Oncology [address] [place] [id number] Shaan Kauffman MD PCP - External Follow Internal Medicine 04/16/[address] [place] [address] [place] [address]
[2021-11-30 03:52] LABS: Absolute Lymphocytes (CBC) 1.6 K/uL (0.7-4.9); Hematocrit 39.7 % (36.0-45.0); Lymphocytes % 18.9 % (15.3-44.8); MPV 8.4 fL (7.6-11.3); RBC Red Blood Cell Count 4.15 M/uL (3.86-4.86)
[2021-11-30 03:53] LABS: Protime INR 0.95
[2021-11-30 04:12] LABS: Albumin 3.7 g/dL (3.4-5.0); Bilirubin Total 0.3 mg/dL (0.2-1.0); Potassium 3.5 mmol/L (3.5-5.1); Protein, Total 6.8 g/dL (6.4-8.2)
[2021-11-30] MEDS ORDERED: OXYMETAZOLINE HCL 0.05% 15ML NAS ONE (04:37)
--- NOTE | 2021-11-30 05:47 | EDPHYS ---
Physician Documentation [facility] Name: Deedee Smith Age: 81 yrs Sex: Female : 1940 Arrival Date: 11/30/2021 Time: 02:34 Bed 8 Private MD: ED Physician Alexander Rdz HPI: 11/30 08:06 This 81 yrs old Female presents to ER via EMS with complaints of Nosebleed. kdr 08:06 The patient presents with a nose bleed, that is apparently anterior, from the left kdr nare, occurred from an unknown cause, that is continuous small amount causative factors include:. Onset: The symptoms/episode began/occurred acutely, just prior to arrival, at 12:30. Modifying factors: The symptoms are alleviated by nothing. the symptoms are aggravated by blowing nose, sitting up. Associated signs and symptoms: The patient has no apparent associated signs or symptoms. Severity of symptoms: At their worst the symptoms were mild moderate just prior to arrival. The patient has not experienced similar symptoms in the past. The patient has not recently seen a physician. Historical: - Allergies: 02:42 No Known Allergies; ll3 - PMHx: 02:42 Hypertension; Hypercholesterolemia; ll3 - PSHx: 02:42 Cholecystectomy; Total abdominal hysterectomy; ll3 - Immunization history:: Client reports receiving the 2nd dose of the Covid vaccine. - Social history:: Smoking status: Patient denies any tobacco usage or history of. ROS: 08:06 Constitutional: Negative for fever, chills, and weight loss, Eyes: Negative for injury, kdr pain, redness, and discharge, Neck: Negative for injury, pain, and swelling, Cardiovascular: Negative for chest pain, palpitations, and edema, Respiratory: Negative for shortness of breath, cough, wheezing, and pleuritic chest pain. 08:06 ENT: Positive for Negative for drainage from ear(s), ear pain, pulling at ears, tinnitus, nasal discharge, rhinorrhea, sinus congestion. Exam: 08:06 Constitutional: This is a well developed, well nourished patient who is awake, alert, kdr and in no acute distress. Head/Face: Normocephalic, atraumatic. Eyes: Pupils equal round and reactive to light, extra-ocular motions intact. Lids and lashes normal. Conjunctiva and sclera are non-icteric and not injected. Cornea within normal limits. Periorbital areas with no swelling, redness, or edema. Neck: Trachea midline, no thyromegaly or masses palpated, and no cervical lymphadenopathy. Supple, full range of motion without nuchal rigidity, or vertebral point tenderness. No Meningismus. Chest/axilla: Normal chest wall appearance and motion. Nontender with no deformity. No lesions are appreciated. 08:06 ENT: Nose: Nasal mucosa: edematous, erythematous, moist. Vital Signs: 02:30 BP 131 / 59; Pulse 69; Resp 17; Pulse Ox 97% on R/A; Weight 90.72 kg (R); Height 5 ft. ll3 5 in. (165.10 cm) (R); Pain 0/10; 02:47 BP 139 / 69; Pulse 71; Resp 18; Pulse Ox 97% ; bb 03:52 BP 114 / 61; Pulse 72; Resp 18; Pulse Ox 98% on R/A; ll3 06:15 BP 148 / 72; Pulse 72; Resp 16; Pulse Ox 98% on R/A; st1 02:30 Body Mass Index 33.28 (90.72 kg, 165.10 cm) ll3 Procedures: 08:06 Epistaxis treatment: A small amount of bleeding noted from A moderate amount of kdr bleeding noted from left nare. Treated using direct pressure, anterior packing, nasal tampon, posterior packing, rhino rocket, Bleeding stopped. MDM: 05:46 Patient medically screened. kdr 08:06 Data reviewed: vital signs, nurses notes, lab test result(s). Counseling: I had a kdr detailed discussion with the patient and/or guardian regarding: the historical points, exam findings, and any diagnostic results supporting the discharge/admit diagnosis, lab results, the need for outpatient follow up, the need for further work-up and treatment in the hospital. 11/30 03:23 Order name: CBC with Diff kdr 11/30 03:23 Order name: CMP; Complete Time: 04:25 kdr 11/30 03:23 Order name: PT-INR; Complete Time: 04:25 kdr 11/30 03:23 Order name: CBC with Automated Diff; Complete Time: 04:25 EDMS Administered Medications: 04:45 Drug: Afrin (oxymetazoline) Drops (0.05 %) 1 sprays Route: Intranasal; Site: left nare; st1 Disposition Summary: 11/30/21 05:46 Discharge Ordered Location: Home kdr Problem: new kdr Symptoms: have improved kdr Condition: Stable kdr Diagnosis - Epistaxis - left nare kdr Followup: kdr - With: Daija Leary MD - When: 2 - 3 days - Reason: If symptoms return, Further diagnostic work-up, Recheck today's complaints, Continuance of care, Re-evaluation by your physician Discharge Instructions: - Discharge Summary Sheet kdr - Nosebleed, Adult, [id number] kdr Forms: - Medication Reconciliation Form kdr - Thank You Letter kdr Prescriptions: - Augmentin 500-125 mg Oral Tablet - take 1 tablet by ORAL route every 8 hours for 7 days; 21 tablet; Refills: 0, kdr Product Selection Permitted Signatures: Dispatcher [employer] EDMS Alexander Rdz MD MD kdr Jakob Munoz, RN RN ll3 Zara Hendricks RN RN st1
--- NOTE | 2021-11-30 05:47 | ER ---
Nurse's Notes [facility] Name: Deedee Smith Age: 81 yrs Sex: Female : 1940 Arrival Date: 11/30/2021 Time: 02:34 Bed 8 Private MD: Diagnosis: Epistaxis-left nare Presentation: 11/30 02:30 Initial Sepsis Screen: Does the patient meet any 2 criteria? No. Patient's initial ll3 sepsis screen is negative. Does the patient have a suspected source of infection? No. Patient's initial sepsis screen is negative. Risk Assessment: Do you want to hurt yourself or someone else? Patient reports no desire to harm self or others. Onset of symptoms was November 29, 2021 at 12:30. Transition of care: patient was not received from another setting of care. 02:30 Acuity: SHAMEKA 3 ll3 02:39 Chief complaint: EMS states: EMS toned out for nose bleed that started at 12:30 and ll3 will not stop since, pt states she was brushing teeth and it started bleeding, states she take a blood thinner but does not know what. Coronavirus screen: Vaccine status: Patient reports receiving the 2nd dose of the covid vaccine. At this time, the client does not indicate any symptoms associated with coronavirus-19. Ebola Screen: No symptoms or risks identified at this time. 02:39 Method Of Arrival: EMS: [facility] ll3 Triage Assessment: 02:42 General: Appears uncomfortable, Behavior is calm, cooperative. Pain: Denies pain. EENT: ll3 Nares with bleeding noted bilaterally Reports nasal discharge since 12:30. Neuro: Level of Consciousness is awake, alert, obeys commands, Oriented to person, place, time, situation. Cardiovascular: Patient's skin is warm and dry. Respiratory: Respiratory effort is even, unlabored, Respiratory pattern is regular, symmetrical. Derm: Skin is pink, warm \T\ dry. Historical: - Allergies: 02:42 No Known Allergies; ll3 - PMHx: 02:42 Hypertension; Hypercholesterolemia; ll3 - PSHx: 02:42 Cholecystectomy; Total abdominal hysterectomy; ll3 - Immunization history:: Client reports receiving the 2nd dose of the Covid vaccine. - Social history:: Smoking status: Patient denies any tobacco usage or history of. Screenin:45 Abuse screen: Denies threats or abuse. Nutritional screening: No deficits noted. ll3 Tuberculosis screening: No symptoms or risk factors identified. 03:00 Fall Risk None identified. No fall in past 12 months (0 pts). No secondary diagnosis (0 st1 pts). IV access (20 points). Ambulatory Aid- None/Bed Rest/Nurse Assist (0 pts). Gait- Normal/Bed Rest/Wheelchair (0 pts) Mental Status- Oriented to own ability (0 pts). Total Puga Fall Scale indicates No Risk (0-24 pts). Assessment: 02:40 General: See triage assessment. ll3 03:52 Reassessment: Pt nose bleed continues, has not stopped, pt has been noted to be ll3 spitting out large blood clots from mouth, denies pain at this time. Vital Signs: 02:30 BP 131 / 59; Pulse 69; Resp 17; Pulse Ox 97% on R/A; Weight 90.72 kg (R); Height 5 ft. ll3 5 in. (165.10 cm) (R); Pain 0/10; 02:47 BP 139 / 69; Pulse 71; Resp 18; Pulse Ox 97% ; bb 03:52 BP 114 / 61; Pulse 72; Resp 18; Pulse Ox 98% on R/A; ll3 06:15 BP 148 / 72; Pulse 72; Resp 16; Pulse Ox 98% on R/A; st1 02:30 Body Mass Index 33.28 (90.72 kg, 165.10 cm) ll3 ED Course: 02:34 Patient arrived in ED. mw2 02:42 Triage completed. ll3 02:42 Arm band placed on Patient placed in an exam room, on a stretcher, on pulse oximetry. ll3 02:45 Patient has correct armband on for positive identification. Bed in low position. Call ll3 light in reach. Side rails up X 1. 03:13 Alexander Rdz MD is Attending Physician. kdr 05:11 Zara Hendricks, SELIN is Primary Nurse. st1 05:12 CBC with Diff Sent. st1 05:13 Assist provider with nosebleed control using Afrin sprays, rhino rocket placed for st1 extensive packing needs, Bleeding from left nare. Set up for procedure. Performed by Alexander Rdz MD Bleeding stopped. Patient tolerated well. 05:46 Daija Leary MD is Referral Physician. kdr 05:51 The patient was able to ambulate down the hallway without dizziness, syncope or nasal st1 bleeding. 06:15 IV discontinued, intact, bleeding controlled, No redness/swelling at site. Pressure st1 dressing applied. Administered Medications: 04:45 Drug: Afrin (oxymetazoline) Drops (0.05 %) 1 sprays Route: Intranasal; Site: left nare; st1 Outcome: 05:46 Discharge ordered by . kdr 06:14 Discharged to home via wheelchair. st1 06:14 Condition: stable 06:14 Discharge instructions given to patient, Instructed on discharge instructions, follow up and referral plans. no drinking with medication, medication usage, Demonstrated understanding of instructions, follow-up care, medications, Prescriptions given X 1. 06:30 Patient left the ED. ll3 Signatures: Alexander Rdz MD MD [facility] Alison Garza RN RN [facility] Jakob Munoz RN RN 3 Zara Hendricks RN RN st1
[2021-11-30 06:37] VITALS: O2SAT 98
[2021-11-30 06:39] VITALS: BP 148/72
== END 2021-11-30 06:30 | disposition home or self-care (01) ==
LOC: ER 02:31
DX: R04.0 Epistaxis (principal); E78.00 Pure hypercholesterolemia, unspecified; I10 Essential (primary) hypertension
CPT/HCPCS: 30901; 36415; 80053; 85025; 85610; 99284

== ENCOUNTER 2022-03-10 12:57 | Emergency (ER) | payer OTHER ==
--- OUTSIDE RECORDS SUMMARY | 2022-03-10 13:02 | XMS REPORT | Clinical Summary ---
:1940 Author Organization [facility] MD [facility] Address [address] [place] [address] Care Team Providers Name Role Phone Tony Gracia MD Unavailable Tony Gracia MD Unavailable Eda Joseph MD Primary Care Provider Madelyn Kauffman MD Unavailable Allergies Active Allergy Reactions Severity Noted Date Comments Paclitaxel 12/18/2021 Facial flushing , feeling hot, throat "scratchy" Medications Medication Sig Dispensed Refills Start Date End Date Status metFORMIN Take 1 10 11/16/2015 Active (GLUCOPHAGE) 500 mg tablet by tablet mouth twice daily. metoprolol tartrate Take 1 3 12/13/2015 Active (LOPRESSOR) 25 mg tablet by tablet mouth twice daily. sitaGLIPtin (JANUVIA) Take 100 mg 0 Active 100 mg tablet by mouth daily. clopidogrel (PLAVIX) Take 1 0 03/25/2020 Active 75 mg tablet tablet by mouth daily. atorvastatin Take 1 0 03/18/2020 Active (LIPITOR) 80 mg tablet by tablet mouth daily. aspirin 81 mg EC Take 81 mg 0 Ac tive tablet by mouth daily. folic acid (FOLVITE) Take 1 mg 0 Active 1 mg tablet by mouth. ondansetron (ZOFRAN) Take 1 60 tablet 4 12/06/2021 Active 8 mg tablet (8 tabletIndications: mg) by Infiltrating duct mouth every carcinoma of right 8 (eight) female breast hours as needed for nausea. prochlorperazine Take 1 60 tablet 4 12/06/2021 Ac tive (COMPAZINE) 10 mg tablet (10 tabletIndications: mg) by Infiltrating duct mouth every carcinoma of right 6 (six) female breast hours as needed for nausea. ranitidine (ZANTAC) Take 1 0 01/07/2016 Discontinued 150 mg tablet tablet by 2 (Not A pplicable) mouth daily. aspirin 325 mg Take 325 mg 0 Dis continued tabletIndications: by mouth 2 1 (Not Applicable) peripheral arterial (two) times thromboembolism a day as prevention needed. 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 Cancer Staging: Clinical stage from 12/03: Stage IIIB (cT2, cN3, cM0, G3, ER+, WI+, HER2-) - Unsigned Essential (primary) hypertension 04/16/2020 Hyperlipidemia 04/16/2020 Gastroesophageal reflux disease 04/16/2020 History of malignant neoplasm of endometrium 0 Malignant neoplasm of endometrium 01/16/2016 Cancer Staging: Clinical stage from 02/24: Stage IA (Primary) - Signed by Mónica Joseph MD on 02/26/2016 Diabetes mellitus 01/16/2016 Encounters Date Type Specialty Care Team Description 03/04/2022 Infusion Infusion Services Gale Boyce Infiltrati ng duct TAPPER HAND carcinoma of ri ght female breast (Primary Dx) 03/04/2022 Orders Only Breast Surgical [facility] On[facility] Mallory gray PA 03/04/2022 Travel 03/03/2022 Orders Only Breast Surgical [facility] On[facility] Mallory gray PA 03/03/2022 Orders Only Breast Surgical [facility] Infiltratin g duct Oncology Mallory gray PA carcinoma of r ight female breast (Primary Dx) 02/25/2022 Infusion Infusion Services Gale Boyce Infiltrati ng duct TAPPER HAND carcinoma of ri ght female breast (Primary Dx) 02/25/2022 Travel 02/24/2022 Orders Only Breast Surgical [facility] Infiltratin g duct Oncology Mallory gray PA carcinoma of r ight female breast (Primary Dx) 02/18/2022 Infusion Infusion Services Gale Boyce Infiltrati ng duct TAPPER HAND carcinoma of ri ght female breast (Primary Dx) 02/18/2022 Orders Only Breast Medical Gale Boyce, Oncology TAPPER HAND 02/18/2022 Travel 02/18/2022 Orders Only Breast Medical [facility] Oncology MD Nuzhat 02/11/2022 Office Visit Breast Medical [facility], Infiltrating duct Oncology MD Nuzhat carcinoma of ri ght female breast (Primary Dx) 02/11/2022 Travel 02/04/2022 Infusion Infusion Services Boyce, Gale, Infiltrati ng duct TAPPER HAND carcinoma of ri ght female breast (Primary Dx) 02/04/2022 Travel 01/29/2022 Infusion Infusion Services Boyce, Gale, Infiltrati ng duct TAPPER HAND carcinoma of ri ght female breast (Primary Dx) 01/29/2022 Travel 01/23/2022 Infusion Infusion Services Boyce, Gale, Infiltrati ng duct TAPPER HAND carcinoma of ri ght female breast 01/23/2022 Orders Only Gastrointestinal Boyce, Gale, Infiltratin g duct Medical Oncology TAPPER HAND carcinoma o f right female breast (Primary Dx) 01/23/2022 Travel 01/22/2022 Orders Only Gastrointestinal Boyce, Gale, Medical Oncology TAPPER HAND 01/17/2022 Hospital Encounter Cardiology [facility], Infiltrat ing duct TAPPER HAND carcinoma of ri ght female breast 01/17/2022 Travel 01/15/2022 Infusion Infusion Services Boyce, Gale, Infiltrati ng duct TAPPER HAND carcinoma of ri ght female breast (Primary Dx) 01/15/2022 Telemedicine Breast Medical [facility], Infiltrating duct Oncology MD Nuzhat carcinoma of ri ght female breast (Primary Dx) 01/15/2022 Travel 01/14/2022 Orders Only Breast Medical [facility] Oncology MD Nuzhat 01/08/2022 Infusion Infusion Services Boyce, Gale, Infiltrati ng duct TAPPER HAND carcinoma of ri ght female breast (Primary Dx) 01/08/2022 Travel 01/02/2022 Ancillary Procedure Radiology Arpan Joseph MD 01/02/2022 Ancillary Procedure Radiology Arpan Joseph MD 01/02/2022 Ancillary Procedure Radiology Arpan Joseph MD 01/02/2022 Ancillary Procedure Radiology Arpan Joseph MD 01/02/2022 Ancillary Procedure Radiology Arpan Joseph MD 01/02/2022 Ancillary Procedure Radiology Arpan Joseph MD 01/02/2022 Ancillary Procedure Radiology Arpan Joseph MD 01/02/2022 Ancillary Procedure Radiology Arpan Joseph MD 01/02/2022 Ancillary Procedure Radiology Arpan Joseph MD 01/01/2022 Infusion Infusion Services Boyce, Gale, Infiltrati ng duct TAPPER HAND carcinoma of ri ght female breast 01/01/2022 Orders Only Breast Medical Boyce, Gale, Infiltrating duct Oncology TAPPER HAND carcinoma of ri ght female breast (Primary Dx) 01/01/2022 Orders Only Breast Surgical [facility] On[facility] Mallory gray PA 01/01/2022 Travel 12/31/2021 Orders Only Breast Medical Sadie-Iheme, Oncology MD Nuzhat 12/31/2021 Orders Only Breast Medical Boyce, Gale, Oncology TAPPER HAND 12/25/2021 Infusion Infusion Services Boyce, Gale, Infiltrati ng duct TAPPER HAND carcinoma of ri ght female breast (Primary Dx) 12/25/2021 Travel 12/20/2021 Telephone Infusion Services Alice Canales Follow-up (C1Phyllis Rodriguez RN chemo callback) 12/19/2021 Orders Only Oncology Sadie-Nuzhat Billingsley MD 12/19/2021 Orders Only Gastrointestinal Boyce, Gale, Medical Oncology TAPPER HAND 12/18/2021 Infusion Infusion Services Boyce, Gale, Infiltrati ng duct TAPPER HAND carcinoma of ri ght female breast (Primary Dx) 12/18/2021 Orders Only Breast Medical Boyce, Gale, Oncology TAPPER HAND 12/18/2021 Travel 12/16/2021 Hospital Encounter Radiology Boyce, Gale, Infiltrat ing duct TAPPER HAND carcinoma of right Avritscher, female breast MD Chandra 12/16/2021 Hospital Encounter Lab Hannah Mora PA 12/16/2021 Documentation Radiology Brenda Phipps, RN 12/16/2021 Travel 12/16/2021 Orders Only Breast Surgical [facility] Infiltratin g duct Oncology Mallory gray PA carcinoma of r ight female breast (Primary Dx) 12/16/2021 Orders Only Breast Surgical [facility] Infiltratin g duct Oncology ez, Mallory, PA carcinoma of r ight female breast (Primary Dx) 12/16/2021 Orders Only Radiology Scott Carrion RT 12/13/2021 Hospital Encounter Radiology Opal, Infiltrat ing duct carcinoma of right female breast (Primary Dx); Mónica Veras MD History of malignant neoplasm of endomet rium; Finkelman, Type 2 diabetes mellitus, not otherwise specified; TIAN Foster Current use of antiplatelet; Hypertension; Encounter for p reprocedural examination 12/13/2021 Ancillary Procedure Radiology Infiltra ting duct carcinoma of ri ght female breast 12/13/2021 Ancillary Procedure Radiology [facility] Infiltr ating duct ez, Mallory, PA carcinoma of r ight female breast 12/13/2021 Travel 12/11/2021 Orders Only Radiology Hannah Mora PA 12/10/2021 Telephone Radiology Tiana Shanks MA 12/06/2021 Office Visit Breast Medical Sadie-Jose Cruz, Infiltrating duct Oncology MD Nuzhat carcinoma of ri ght female breast (Primary Dx) 12/06/2021 Hospital Encounter Radiology [facility] Infiltra ting duct ez, Mallory, PA carcinoma of r ight female breast 12/06/2021 Ancillary Procedure Radiology [facility] ezMallory PA 12/06/2021 Ancillary Procedure Radiology [facility] Infiltr ating duct ez, Mallory, PA carcinoma of r ight female breast 12/06/2021 Orders Only Breast Medical Sadie-Ihwoody, Oncology MD Nuzhat 12/06/2021 Orders Only Breast Surgical [facility] Infiltratin g duct Oncology ez, Mallory, PA carcinoma of r ight female breast (Primary Dx) 12/06/2021 Travel 12/04/2021 Orders Only Breast Surgical [facility] Oncology Mallory gray PA 11/26/2021 Orders Only Breast Surgical [facility] Infiltratin g duct Oncology ez, Mallory, PA carcinoma of r ight female breast (Primary Dx) 11/26/2021 Telephone Breast Surgical Pankaj, Oncology Ami Brock MD 11/26/2021 Orders Only Breast Surgical [facility] Infiltratin g duct Oncology Mallory gray PA carcinoma of r ight female breast (Primary Dx) 11/22/2021 Office Visit Breast Surgical Refinetti, Mammography Oncology Ami Brock MD 11/22/2021 Travel 11/20/2021 Ancillary Procedure Radiology Arpan Joseph MD 11/20/2021 Ancillary Procedure Radiology Arpan Joseph MD 11/20/2021 Ancillary Procedure Radiology Mammogra phy abnormal 11/20/2021 Ancillary Procedure Radiology Jeanmarie Mammogra TIAN Obrien abnormal 11/20/2021 Ancillary Procedure Radiology Mika MurryogrTIAN Chase abnormal 11/20/2021 Travel 11/14/2021 Orders Only Gynecology Jeanmarie, Mammography abn ormal (Primary Dx); TIAN Gallagher Malignant neopl asm of endometrium 04/29/2021 Office Visit Gynecology Christal, Malignant neopl asm of endometrium; MD Demetrio History of malignant neoplasm of endomet rium Elliott Murry PA 04/29/2021 Travel 04/29/2021 Telephone Surgical Oncology Veronica Ramos RN after 03/10/2021 Immunizations Name Administration Dates Next Due Moderna SARS-CoV-2 Vaccination 07/15/2021, 01/14/2021, 12/17 Surgical History Surgery Date Site/Laterality Comments PATELLA FRACTURE SURGERY CHOLECYSTECTOMY 09/14/2005 - lap dominic with h ernia 09/13/2006 repair LAPAROTOMY EXPLORATORY 09/14/1945 - abdominal injury-from 09/13/1946 glass injury HERNIA REPAIR 09/14/2005 - UMbilical 09/13/2006 HERNIA REPAIR Abdominal, TOTAL ABDOMINAL HYSTERECTOMY W09/14/2015 - BILATERAL SALPINGOOPHORECTOMY 09/13/2016 BREAST BIOPSY Medical History Medical History Date Comments Psoriasis Hand wart Diabetes mellitus Reflux gastritis Hyperlipidemia Cancer Gastroesophageal reflux disease Hypertension Family History Medical History Relation Name Comments [...] Exposure Response Date Recorded In the last 10 days, have you been in contact with No / Unsu re 03/04/2022 12:05 PM CDT someone who was confirmed or suspected to have Coronavirus/COVID-19? Obstetrics History Para Term AB IAB SAB Ectopic Multiple Living Live Births 4 3 1 3 Date Outcome GA Total Labor/2nd/3rd Weight Sex Delivery Anes PTL Rox A 1 A5 Name Clin Labor Para Para Para AB Comments 1 mis 1 episode of abnormal pap smear in early s, cryotherapy 1 D&C for evaluation as well, it was nor mal. Menopausal status: 50 yo G 4 P 3 Menarche: 12 yo Parity: 27 yo : 6yr OCP: 3-4 years HRT: Progesterone during her pregnancies , less than 5 years total Last Filed Vital Signs Vital Sign Reading Time Taken Comments Blood Pressure 126/78 03/04/2022 3:32 PM CDT Pulse 84 03/04/2022 3:32 PM CDT Temperature 36.7 C (98.1 F) 03/04/2022 1:54 PM CDT Respiratory Rate 18 03/04/2022 3:32 PM CDT Oxygen Saturation 96% 03/04/2022 1:54 PM CDT Inhaled Oxygen Concentration - - Weight 83.1 kg (183 lb 3.2 oz) 03/04/2022 1:54 PM CDT Height 160.5 cm (5' 3.19") 12/18/2021 11:14 AM CDT Body Mass Index 32.26 12/18/2021 11:14 AM CDT Plan of Treatment Date Type Specialty Care Team Description 03/11/2022 Lab Lab Gale Boyce APN [address] [place], [place] [address] (Wo rk) 03/11/2022 Ancillary Procedure Radiology Mallory Marino PA [address] [place], [place] [address] (Wo rk) 03/11/2022 Infusion Infusion Services Gale Boyce A PN [address] [place], [place] [address] (Wo rk) 03/11/2022 Office Visit Breast Surgical Ami Lira Oncology MD Vinod [address] [place], [place] [address] (Wo rk) 03/11/2022 [facility] [address] [place], [place] [address] (Wo rk) 03/18/2022 Lab Lab Gale Boyce APN [address] [place], [place] [address] (Wo rk) 03/18/2022 Infusion Infusion Services Gale Boyce A PN [address] [place], [place] [address] (Wo rk) Health Maintenance Due Date Last Done Comments COVID-19 Vaccination (4 - Booster 10/15/2021 07/15/2021, , for Moderna series) 12/17/2020 Medical Devices Implanted Type Area Loans Consultant Device Shelf Model / Identifier Expiration Date Ser ial / Lot Pwrport, Margarita Slim 8fr - [id number] Port BARD PERIPHE RAL 12/12/2022 [id number] / Implanted: Qty: 1 on 12/16/2021 at [facility] [id number] / [id number] Procedures Procedure Name Priority Date/Time Associated Comments Diagnosis MANUAL DIFFERENTIAL Routine 03/04/2022 12:14 Infiltrating duct Results for this PM CDT carcinoma of right procedure are in female breast the results section. Results CBC Routine 03/04/2022 12:14 Infiltrating duct Result s for this PM CDT carcinoma of right procedure are in female breast the results section. COMPLETE BLOOD COUNT W/ Routine 03/04/2022 12:14 Infiltrating duct DIFFERENTIAL PM CDT carcinoma of right female breast MANUAL DIFFERENTIAL Routine 02/25/2022 10:41 Infiltrating duct Results for this AM CDT carcinoma of right procedure are in female breast the results section. Results CBC Routine 02/25/2022 10:41 Infiltrating duct Result s for this AM CDT carcinoma of right procedure are in female breast the results section. COMPLETE BLOOD COUNT W/ Routine 02/25/2022 10:41 Infiltrating duct DIFFERENTIAL AM CDT carcinoma of right female breast MANUAL DIFFERENTIAL Routine 02/18/2022 12:43 Infiltrating duct Results for this PM CDT carcinoma of right procedure are in female breast the results section. Results CBC Routine 02/18/2022 12:43 Infiltrating duct Result s for this PM CDT carcinoma of right procedure are in female breast the results section. BILIRUBIN TOTAL Routine 02/18/2022 12:43 Infiltrating duct Res ults for this PM CDT carcinoma of right procedure are in female breast the results section. ALKALINE PHOSPHATASE Routine 02/18/2022 12:43 Infiltrating maritza t Results for this PM CDT carcinoma of right procedure are in female breast the results section. ALANINE AMINOTRANSFERASE Routine 02/18/2022 12:43 Infiltrating duct Results for this PM CDT carcinoma of right procedure are in female breast the results section. ASPARTATE Routine 02/18/2022 12:43 Infiltrating duct Result s for this AMINOTRANSFERASE PM CDT carcinoma of right proce dure are in female breast the results section. COMPLETE BLOOD COUNT W/ Routine 02/18/2022 12:43 Infiltrating duct DIFFERENTIAL PM CDT carcinoma of right female breast MANUAL DIFFERENTIAL Routine 02/11/2022 1:11 Infiltrating duct Results for this PM CDT carcinoma of right procedure are in female breast the results section. Results CBC Routine 02/11/2022 1:11 Infiltrating duct Result s for this PM CDT carcinoma of right procedure are in female breast the results section. BILIRUBIN TOTAL Routine 02/11/2022 1:11 Infiltrating duct Res ults for this PM CDT carcinoma of right procedure are in female breast the results section. ALKALINE PHOSPHATASE Routine 02/11/2022 1:11 Infiltrating maritza t Results for this PM CDT carcinoma of right procedure are in female breast the results section. 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 ASPARTATE Routine 02/11/2022 1:11 Infiltrating duct Result s for this AMINOTRANSFERASE PM CDT carcinoma of right proce dure are in female breast the results section. COMPLETE BLOOD COUNT W/ Routine 02/11/2022 1:11 Infiltrating duct DIFFERENTIAL PM CDT carcinoma of right female breast MANUAL DIFFERENTIAL Routine 02/04/2022 12:39 Infiltrating duct Results for this PM CDT carcinoma of right procedure are in female breast the results section. Results CBC Routine 02/04/2022 12:39 Infiltrating duct Result s for this PM CDT carcinoma of right procedure are in female breast the results section. COMPLETE BLOOD COUNT W/ Routine 02/04/2022 12:39 Infiltrating duct DIFFERENTIAL PM CDT carcinoma of right female breast MANUAL DIFFERENTIAL Routine 01/29/2022 10:39 Infiltrating duct Results for this AM CDT carcinoma of right procedure are in female breast the results section. Results CBC Routine 01/29/2022 10:39 Infiltrating duct Result s for this AM CDT carcinoma of right procedure are in female breast the results section. COMPLETE BLOOD COUNT W/ Routine 01/29/2022 10:39 Infiltrating duct DIFFERENTIAL AM CDT carcinoma of right female breast MANUAL DIFFERENTIAL Routine 01/23/2022 11:27 Infiltrating duct Results for this AM CDT carcinoma of right procedure are in female breast the results section. Results CBC Routine 01/23/2022 11:27 Infiltrating duct Result s for this AM CDT carcinoma of right procedure are in female breast the results section. COMPLETE BLOOD COUNT W/ Routine 01/23/2022 11:27 Infiltrating duct DIFFERENTIAL AM CDT carcinoma of right female breast ECHOCARDIOGRAM 2D Routine 01/17/2022 2:15 Infiltrating duct R esults for this COMPLETE PM CDT carcinoma of right procedure are in female breast the results section. MANUAL DIFFERENTIAL Routine 01/15/2022 10:34 Infiltrating duct Results for this AM CDT carcinoma of right procedure are in female breast the results section. Results CBC Routine 01/15/2022 10:34 Infiltrating duct Result s for this AM CDT carcinoma of right procedure are in female breast the results section. COMPLETE BLOOD COUNT W/ Routine 01/15/2022 10:34 Infiltrating duct DIFFERENTIAL AM CDT carcinoma of right female breast MANUAL DIFFERENTIAL Routine 01/08/2022 8:42 Infiltrating duct Results for this AM CDT carcinoma of right procedure are in female breast the results section. Results CBC Routine 01/08/2022 8:42 Infiltrating duct Result s for this AM CDT carcinoma of right procedure are in female breast the results section. COMPLETE BLOOD COUNT W/ Routine 01/08/2022 8:42 Infiltrating duct DIFFERENTIAL AM CDT carcinoma of right female breast MANUAL DIFFERENTIAL Routine 01/01/2022 12:33 Infiltrating duct Results for this PM CDT carcinoma of right procedure are in female breast the results section. Results CBC Routine 01/01/2022 12:33 Infiltrating duct Result s for this PM CDT carcinoma of right procedure are in female breast the results section. COMPLETE BLOOD COUNT W/ Routine 01/01/2022 12:33 Infiltrating duct DIFFERENTIAL PM CDT carcinoma of right female breast MANUAL DIFFERENTIAL Routine 12/25/2021 12:14 Infiltrating duct Results for this PM CDT carcinoma of right procedure are in female breast the results section. Results CBC Routine 12/25/2021 12:14 Infiltrating duct Result s for this PM CDT carcinoma of right procedure are in female breast the results section. COMPLETE BLOOD COUNT W/ Routine 12/25/2021 12:14 Infiltrating duct DIFFERENTIAL PM CDT carcinoma of right female breast MANUAL DIFFERENTIAL Routine 12/18/2021 9:42 Infiltrating duct Results for this AM CDT carcinoma of right procedure are in female breast the results section. Results CBC Routine 12/18/2021 9:42 Infiltrating duct Result s for this AM CDT carcinoma of right procedure are in female breast the results section. BILIRUBIN TOTAL Routine 12/18/2021 9:42 Infiltrating duct Res ults for this AM CDT carcinoma of right procedure are in female breast the results section. ALKALINE PHOSPHATASE Routine 12/18/2021 9:42 Infiltrating maritza t Results for this AM CDT carcinoma of right procedure are in female breast the results section. ALANINE AMINOTRANSFERASE Routine 12/18/2021 9:42 Infiltrating duct Results for this AM CDT carcinoma of right procedure are in female breast the results section. ASPARTATE Routine 12/18/2021 9:42 Infiltrating duct Result s for this AMINOTRANSFERASE AM CDT carcinoma of right proce dure are in female breast the results section. COMPLETE BLOOD COUNT W/ Routine 12/18/2021 9:42 Infiltrating duct DIFFERENTIAL AM CDT carcinoma of right female breast IR FL PORT PLACEMENT Routine 12/16/2021 5:58 Infiltrating maritza t Results for this PM CDT carcinoma of right procedure are in female breast the results section. POC GLUCOSE SCREEN Routine 12/16/2021 3:23 Resul ts for this PM CDT procedure are i n the results section. TMP INTERPRETATION Routine 12/16/2021 12:41 Resul ts for this ANTIBODY SCREEN NEGATIVE PM CDT pro cedure are in the results section. CLOT EXPIRATION DATE Routine 12/16/2021 12:41 Res ults for this PM CDT procedure are i n the results section. ANION GAP Routine 12/16/2021 12:41 Results for this PM CDT procedure are i n the results section. MANUAL DIFFERENTIAL Routine 12/16/2021 12:41 Resu lts for this PM CDT procedure are i n the results section. ANTIBODY SCREEN Routine 12/16/2021 12:41 Results for this PM CDT procedure are i n the results section. ABORH Routine 12/16/2021 12:41 Results for this PM CDT procedure are i n the results section. .GLOMERULAR FILTRATION Routine 12/16/2021 12:41 R esults for this RATE PM CDT procedure are i n the results section. SERUM CREATININE Routine 12/16/2021 12:41 Results for this PM CDT procedure are i n the results section. Results CBC Routine 12/16/2021 12:41 Results for this PM CDT procedure are i n the results section. TYPE AND SCREEN Routine 12/16/2021 12:41 PM CDT GLUCOSE, RANDOM Routine 12/16/2021 12:41 Results for this PM CDT procedure are i n the results section. BLOOD UREA NITROGEN Routine 12/16/2021 12:41 Resu lts for this PM CDT procedure are i n the results section. SERUM CREATININE Routine 12/16/2021 12:41 PM CDT POTASSIUM LEVEL Routine 12/16/2021 12:41 Results for this PM CDT procedure are i n the results section. SODIUM LEVEL Routine 12/16/2021 12:41 Results for this PM CDT procedure are i n the results section. CHLORIDE LEVEL Routine 12/16/2021 12:41 Results f or this PM CDT procedure are i n the results section. CARBON DIOXIDE LEVEL Routine 12/16/2021 12:41 Res ults for this PM CDT procedure are i n the results section. COMPLETE BLOOD COUNT W/ Routine 12/16/2021 12:41 DIFFERENTIAL PM CDT CONFIRM ABORH TYPE Routine 12/16/2021 12:40 Resul ts for this PM CDT procedure are i n the results section. PROTHROMBIN TIME Routine 12/16/2021 12:33 Results for this PM CDT procedure are i n the results section. EKG, 12-LEAD (SCHEDULED) Routine 12/16/2021 MAMMO POST PROCEDURE Routine 12/13/2021 11:41 Infiltrating maritza t Results for this RIGHT AM CDT carcinoma of right procedure are in female breast the results section. US GUIDED BREAST CLIP Routine 12/13/2021 11:[address] Results for this PLACEMENT RIGHT AM CDT carcinoma of right proced ure are in female breast the results section. US BREAST FINE NEEDLE Routine 12/13/2021 11:[address] Results for this ASPIRATION - RIGHT AM CDT carcinoma of right pro cedure are in female breast the results section. US BREAST FINE NEEDLE Routine 12/13/2021 11:[address] Results for this ASPIRATION - RIGHT AM CDT carcinoma of right pro cedure are in female breast the results section. CYTOLOGY IMAGE-GUIDED Routine 12/13/2021 9:[address] Results for this FNA INTERPRETATION AM CDT carcinoma of right pro cedure are in female breast the results section. CYTOLOGY IMAGE-GUIDED Routine 12/13/2021 9:[address] Results for this FNA INTERPRETATION AM CDT carcinoma of right pro cedure are in female breast the results section. CT CHEST ABDOMEN PELVIS Routine 12/06/2021 1:17 Infil[address] duct Results for this W WO CONTRAST PM CDT carcinoma of right procedur e are in female breast the results section. POC CREATININE Routine 12/06/2021 11:46 Results f or this AM CDT procedure are i n the results section. NM BONE SCAN WHOLE BODY Routine 12/06/2021 10:56 [address] duct Results for this AM CDT carcinoma of right procedure are in female breast the results section. 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 CYTOLOGY IMAGE-GUIDED Routine 11/20/2021 3:48 Mammography Re sults for this FNA INTERPRETATION PM DRYING UNIT FELTING MACHINE OPERATOR abnormal procedure are in the results section. PATHOLOGY BIOPSY Routine 11/20/2021 3:46 Mammography Results for this INTERPRETATION PM DRYING UNIT FELTING MACHINE OPERATOR abnormal procedure are in the results section. CYTOLOGY IMAGE-GUIDED Routine 11/20/2021 3:44 Mammography Re sults for this FNA INTERPRETATION PM DRYING UNIT FELTING MACHINE OPERATOR abnormal procedure are in the results section. PATHOLOGY BIOPSY Routine 11/20/2021 3:39 Mammography Results for this INTERPRETATION PM DRYING UNIT FELTING MACHINE OPERATOR abnormal procedure are in the results section. MAMMO DIGITAL DIAGNOSTIC Routine 11/20/2021 1:50 Mammography Results for this BILATERAL W JOE PM DRYING UNIT FELTING MACHINE OPERATOR abnormal procedure a re in the results section. OSI MAMMO BILATERAL Routine 11/01/2021 12:43 Cancer Resu lts for this PM DRYING UNIT FELTING MACHINE OPERATOR procedure are i n the results section. OSI US BREAST Routine 11/01/2021 12:43 Cancer Results fo r this PM DRYING UNIT FELTING MACHINE OPERATOR procedure are i n the results section. after 03/10/2021 Results (ABNORMAL) .CBC (03/04/2022 12:14 PM CDT)Only the most recent of13 resultswithin the time period is included. athologist Signature WBC 3.1 (L) 4.0 - 11.0 [place] K/uL Comment: All components of the CBC perfo rmed at [facility], [facility] [place] [address] RBC 3.76 (L) 4.00 - 5.50 M/uL [place] Comment: All components of the CBC perfo rmed at [facility], [facility] [place], [place] [address] Hgb 10.8 (L) 12.0 - 16.0 gm/dL [place] Comment: As part of CBC or as an individ ual orderable testing performed at [facility], [address] [place] [address], [place] [address] Hct 34.6 (L) 37.0 - 47.0 % [place] Comment: As part of CBC testing performe d at [facility], [address] [place] [address], [place] [address] MCV 92 82 - 98 fL [place] Comment: As part of CBC testing performe d at [facility], [address] [place] [address] MCH 28.7 27.0 - 31.0 pg [place] Comment: As part of CBC testing performe d at [facility], [address] [place] [address], [place] [address] MCHC 31.2 31.0 - 36.0 gm/dL [place] Comment: As part of CBC testing performe d at [facility], [address] [place] [address], [place] [address] RDW-SD 48.5 (H) 35.1 - 46.3 fL [place] Comment: As part of CBC testing performe d at [facility], [address] [place] [address], [place] [address] RDW-CV 14.4 12.0 - 15.5 % [place] Comment: As part of CBC testing performe d at [facility], [address] [place] [address] Platelet count 375 140 - 440 K/uL [facility] Comment: As part of CBC or an individual orderable testing performed at [facility], [address] [place] [address] MPV 10.7 (H) 4.0 - 10.4 fL [place] Comment: As part of CBC testing performe d at [facility], [address] [place] [address] Specimen Anatomical Collection Method Collection Time Receive d Time (Source) Location / / Volume Laterality Blood 03/04/2022 12:14 03/04/2022 PM CDT 12:14 PM CDT Narrative [place] - 03/04/2022 12:48 PM CDT Within 72 hours prior to chemotherapy. Gale Boyce APN LAB BLOOD ORDERABLES Performing Organization Address City/State/[place] [address] [place] [address] (ABNORMAL) Differential (03/04/2022 12:14 PM CDT)Only the most recent of13 resultswithin the time period is included. athologist Signature Total Cells 100 [place] Comment: All components of the Different ial performed at [facility], [address] [place] [address] Neutrophil % 37.0 (L) 42.0 - 66.0 % [place] Comment: The Neutrophil count includes Bands. As part of the Differential testing perf ormed at [facility], [address] [place] [address] Lymphocyte % 48.0 (H) 24.0 - 44.0 % [place] Comment: As part of the Differential jocelyn ting performed at [facility], [address] [place] [address] Monocyte % 6.0 2.0 - 7.0 % [place] Comment: As part of the Differential jocelyn ting performed at [facility], [address] [place] [address] Eosinophil % 9.0 (H) 1.0 - 4.0 % [place] Comment: As part of the Differential jocelyn ting performed at [facility], [address] [place] [address] Neutrophil Abs 1.15 (L) 1.70 - 7.30 K/uL [facility] Comment: As part of the Differential jocelyn ting performed at [facility], [address] [place] [address] Lymphocyte Abs 1.49 1.00 - 4.80 K/uL [facility] Comment: As part of the Differential jocelyn ting performed at [facility], [address] [place] [address] Monocyte Abs 0.19 0.08 - 0.70 K/uL [facility] Comment: As part of the Differential jocelyn ting performed at [facility], [address] [place] [address] Eosinophil Abs 0.28 0.04 - 0.40 K/uL [facility] Comment: As part of the Differential jocelyn ting performed at [facility], [address] [place] [address] RBC Morph Normal Normal [place] Comment: As part of the Differential jocelyn ting performed at [facility], [address] [place] [address] PLT Morph Normal Normal [place] Comment: As part of the Differential jocelyn ting performed at [facility], [address] [place] [address] Specimen Anatomical Collection Method Collection Time Receive d Time (Source) Location / / Volume Laterality Blood 03/04/2022 12:14 03/04/2022 PM CDT 12:14 PM CDT Narrative [place] - 03/04/2022 12:48 PM CDT Within 72 hours prior to chemotherapy. Gale Boyce TAPPER HAND LAB BLOOD ORDERABLES Performing Organization Address City/State/ZIP Code Phon e Maribel [address] ALT (02/18/2022 12:43 PM CDT)Only the most recent of3 resultswithin the time period is included. P athologist Signature ALT 12 <=33 U/L [place] Comment: Testing performed at [facility], [address] [place] [address] Specimen Anatomical Collection Method Collection Time Receive d Time (Source) Location / / Volume Laterality Blood 02/18/2022 12:43 02/18/2022 PM CDT 12:44 PM CDT Gale Boyce TAPPER HAND LAB BLOOD ORDERABLES Performing Organization Address City/[facility]/ZIP Code Phon e Number [address] AST (02/18/2022 12:43 PM CDT)Only the most recent of3 resultswithin the time period is included. athologist Signature AST 14 <=32 U/L [place] Comment: Testing performed at [facility], [address] [place] [address] Specimen Anatomical Collection Method Collection Time Receive d Time (Source) Location / / Volume Laterality Blood 02/18/2022 12:43 02/18/2022 PM CDT 12:44 PM CDT Gale CASSIDYN LAB BLOOD ORDERABLES Performing Organization Address City/State/ZIP Code Phon e Number [address] Alkaline phosphatase (02/18/2022 12:43 PM CDT)Only the most recent of3 results within the time period is included. athologist Signature Alk Phos 95 35 - 104 U/L [place] Comment: Testing performed at [facility], [address] [place] [address] Specimen Anatomical Collection Method Collection Time Receive d Time (Source) Location / / Volume Laterality Blood 02/18/2022 12:43 02/18/2022 PM CDT 12:44 PM CDT Gale Boyce TAPPER HAND LAB BLOOD ORDERABLES Performing Organization Address City/[facility] Code Phon e Number [address] Bilirubin, total (02/18/2022 12:43 PM CDT)Only the most recent of3 resultswithin the time period is included. athologist Signature Bili Total 0.3 <=1.2 mg/dL [place] Comment: Indocyanine Green (ICG) may cause falsel y elevated bilirubin results. Total and direct bilirubin must not be measured from samples containing indocyanine green. False elevation of total bilirubin can b e seen in patients with IgG concentrations above 28 g/L. Testing performed at [facility], [address] [place] [address] Specimen Anatomical Collection Method Collection Time Receive d Time (Source) Location / / Volume Laterality Blood 02/18/2022 12:43 02/18/2022 PM CDT 12:44 PM CDT Gale Boyce TAPPER HAND LAB BLOOD ORDERABLES Performing Organization Address City/State/ZIP Code Phon e Number [place]AL[place] [facility] Magalie Flower, [place] [address] [address] [facility] Echocardiogram 2D Complete (01/17/2022 2:15 PM CDT) Specimen (Source) Anatomical Collection Method Collection Time Re ceived Time Location / / Volume Laterality 01/17/2022 1:26 PM CDT Narrative [facility] - 01/17/2022 3:47 PM CDT Echocardiographic Report Interpretation Summary A complete two-dimensional transthoracic echocardiogram was performed (2D, M- mode, Spectral and color Doppler). There is no comparison study available. Normal left ventricular size and systoli c function. LV ejection fraction calculated using th e bi-plane method of disks is 57 %. The right ventricle is normal in size an d function. Right ventricular systolic pressure is n ormal. There is no pericardial effusion. Left Ventricle: Normal left ventricular size and systoli c function. There is normal left ventricular wall thickness. LV ejection fraction calculated using the bi-plane method of disks is 57 %. I WMSI = 1.00 % Normal = 1 00 Abnormal global longitudinal peak systolic value X - Cannot 1 - Normal 2 - 3 - Akinetic 4 - Dyskinetic Interpret Hyp okinetic 5 - Aneurysmal 3D imaginD volumes were not performed in this st udy. Cardiac Mechanics/Speckle Tracking Imagi ng: Abnormal global longitudinal peak systol ic value. Strain Imaging was performed; GLPS avg = -14.5%. Diastology: Impaired LV relaxation pattern of diasto lic dysfunction, Doppler suggests normal LA pressures. Right Ventricle: The right ventricle is normal in size an d function. Normal RV systolic function using TAPSE criteria. Atria: Atria are normal in size. Lipomatous hyp ertrophy of the interatrial septum is noted. Mitral Valve: Mild thickening changes are noted. Tricuspid Valve: The tricuspid valve is not well visualiz ed, but is grossly normal. There is trace tricuspid regurgitation. Estimated RVSP is 20-25mmHg. Right ventricular systolic pressure is normal. Aortic Valve: The aortic valve is trileaflet. Mild aor tic valve thickening. The aortic valve opens well. Pulmonic Valve: The pulmonic valve is not well visualize d. Trace pulmonic valvular regurgitation. Great Vessels: The aortic root is normal size. IVC is s mall, consistent with intravascular depletion. Pericardium/Pleural: There is no pericardial effusion. An ech o lucent space is noted consistent with prominent pericardial fat pad. Preliminary Reviewer Preliminary Interpretation: Heidy Acosta MD. MMode/2D Measurements IVSd: 1.0 cm LVIDd: 5.1 cm LVIDs: 3.3 cm LVPWd: 1.0 cm FS: 34.7 % Ao root diam: 3.1 cm Ao root area: 7.7 cm2 LA dimension: 3.7 cm LVOT diam: 2.0 cm EDV(MOD-A4C): 109.1 ml ESV(MOD-A4C): 48.7 ml LVOT area: 3.1 cm2 EF(MOD-A4C): 55.3 % EDV(MOD-A2C): 79.8 ml ESV(MOD-A2C): 32.8 ml EDV(MOD-bp): 93.6 ml EF(MOD-A2C): 58.9 % ESV(MOD-bp): 40.2 ml EF(MOD-bp): 57.1 % LAV(MOD-A2C): 51.3 ml EDV (MOD-bp) Index: 48.4 ml/m2 LAV(MOD-A4C): 24.5 ml LAV(MOD-bp): 35.0 ml LAV(MOD-bp) Indexed: 18.1 ml/m2 ESV (MOD-bp) Index: 20.7 ml/m2 RWT: 0.40 cm TAPSE (>1.6): 1.7 cm Doppler Measurements MV E max mariah: 55.5 cm/sec MV V2 max: 85.4 cm/sec MV A max mariah: 76.0 cm/sec MV max P.9 mmHg MV E/A: 0.73 MV V2 mean: 48.3 cm/sec MV mean P.1 mmHg MV V2 VTI: 14.8 cm MVA(VTI): 2.9 cm2 MV P1/2t max mariah: 56.1 cm/sec Ao V2 max: 100.8 cm/sec MV P1/2t: 44.1 msec Ao max P.1 mmHg Ao V2 mean: 68.5 cm/sec MVA(P1/2t): 5.0 cm2 Ao mean P.1 mmHg MV dec slope: 372.7 cm/sec2 Ao V2 VTI: 14.9 cm GRANT(I,D): 2.9 cm2 GRANT(V,D): 2.3 cm2 LV V1 max P.3 mmHg SV(LVOT): 43.5 ml LV V1 mean P.3 mmHg LV V1 max: 75.0 cm/sec LV V1 mean: 53.8 cm/sec LV V1 VTI: 14.2 cm PA V2 max: 81.9 cm/sec PI max mariah: 104.4 cm/sec PA max P.7 mmHg PI max P.4 mmHg PA V2 mean: 54.3 cm/sec PI dec slope: 52.5 cm/sec2 PA mean P.3 mmHg PA V2 VTI: 14.2 cm Med Peak E' Mariah: 7.1 cm/sec Lat Peak E' Mariah: 5.7 cm/sec TR max mariah: 214.7 cm/sec RAP systole: 3.0 mmHg TR max P.4 mmHg RVSP(TR): 21.4 mmHg GRANT Index (I,D): 1.5 GRANT Index (V,D): 1.2 Dimensionless Index: 0.74 E/e' (avg): 8.6 E/e' (lat): 9.7 E/e' (sept): 7.8 57 Procedure Note Johan Banegas MD - 01/17/2022Format ting of this note might be different from the original. Echocardiographic Report Interpretation Summary A complete two-dimensional transthoracic echocardiogram was performed (2D, M- mode, Spectral and color Doppler). There is no comparison study available. Normal left ventricular size and systoli c function. LV ejection fraction calculated using th e bi-plane method of disks is 57 %. The right ventricle is normal in size an d function. Right ventricular systolic pressure is n ormal. There is no pericardial effusion. Left Ventricle: Normal left ventricular size and systoli c function. There is normal left ventricular wall thickness. LV ejection fraction calculated using the bi-plane method of disks is 57 %. I WMSI = 1.00 % Normal = 100 Abnormal global longitudinal peak systolic value X - Cannot 1 - Normal 2 - 3 - Akinetic 4 - Dyskinetic Interpret Hypokinetic 5 - Aneurysmal 3D imaginD volumes were not performed in this st udy. Cardiac Mechanics/Speckle Tracking Imagi ng: Abnormal global longitudinal peak systol ic value. Strain Imaging was performed; GLPS avg = -14.5%. Diastology: Impaired LV relaxation pattern of diasto lic dysfunction, Doppler suggests normal LA pressures. Right Ventricle: The right ventricle is normal in size an d function. Normal RV systolic function using TAPSE criteria. Atria: Atria are normal in size. Lipomatous hyp ertrophy of the interatrial septum is noted. Mitral Valve: Mild thickening changes are noted. Tricuspid Valve: The tricuspid valve is not well visualiz ed, but is grossly normal. There is trace tricuspid regurgitation. Estimated RVSP is 20-25mmHg. Right ventricular systolic pressure is normal. Aortic Valve: The aortic valve is trileaflet. Mild aor tic valve thickening. The aortic valve opens well. Pulmonic Valve: The pulmonic valve is not well visualize d. Trace pulmonic valvular regurgitation. Great Vessels: The aortic root is normal size. IVC is s mall, consistent with intravascular depletion. Pericardium/Pleural: There is no pericardial effusion. An ech o lucent space is noted consistent with prominent pericardial fat pad. Preliminary Reviewer Preliminary Interpretation: Heidy Acosta MD. MMode/2D Measurements IVSd: 1.0 cm LVIDd: 5.1 cm LVIDs: 3.3 cm LVPWd: 1.0 cm FS: 34.7 % Ao root kenton m: 3.1 cm Ao root are a: 7.7 cm2 LA dimensio n: 3.7 cm LVOT diam: 2.0 cm EDV(MOD-A4C ): 109.1 ml ESV(MOD-A4C ): 48.7 ml LVOT area: 3.1 cm2 EF(MOD-A4C) : 55.3 % EDV(MOD-A2C): 79.8 ml ESV(MOD-A2C): 32.8 ml EDV(MOD-bp) : 93.6 ml EF(MOD-A2C): 58.9 % ESV(MOD-bp) : 40.2 ml EF(MOD-bp): 57.1 % LAV(MOD-A2C): 51.3 ml EDV (MOD-bp ) Index: 48.4 ml/m2 LAV(MOD-A4C): 24.5 ml LAV(MOD-bp): 35.0 ml LAV(MOD-bp) Indexed: 18.1 ml/m2 ESV (MOD-bp) Index: 20.7 ml/m2 RWT: 0.40 c m TAPSE (>1.6): 1.7 cm Doppler Measurements MV E max mariah: 55.5 cm/sec MV V2 max: 85.4 cm/sec MV A max mariah: 76.0 cm/sec MV max P.9 mmHg MV E/A: 0.73 MV V2 mean: 48.3 cm/sec MV jessy n P.1 mmHg MV V2 VTI: 14.8 cm MVA(VT I): 2.9 cm2 MV P1/2t max mariah: 56.1 cm/sec Ao V2 max: 100.8 cm/sec MV P1/2t: 44.1 msec Ao max P.1 mmHg Ao V2 mean: 68.5 cm/sec MVA(P1/2t): 5.0 cm2 Ao jessy n P.1 mmHg MV dec slope: 372.7 cm/sec2 Ao V2 VTI: 14.9 cm GRANT(I, D): 2.9 cm2 GRANT(V, D): 2.3 cm2 LV V1 max P.3 mmHg SV(LVO T): 43.5 ml LV V1 mean P.3 mmHg LV V1 max: 75.0 cm/sec LV V1 mean: 53.8 cm/sec LV V1 VTI: 14.2 cm PA V2 max: 81.9 cm/sec PI max mariah: 104.4 cm/sec PA max P.7 mmHg PI max P.4 mmHg PA V2 mean: 54.3 cm/sec PI dec slope: 52.5 cm/sec2 PA mean P.3 mmHg PA V2 VTI: 14.2 cm Med Peak E' Mariah: 7.1 cm/sec Lat Pe ak E' Mariah: 5.7 cm/sec TR max mariah: 214.7 cm/sec RAP sy stole: 3.0 mmHg TR max P.4 mmHg RVSP(TR): 21.4 mmHg GRANT Index (I,D): 1.5 GRANT In dex (V,D): 1.2 Dimensionless Index: 0.74 E/e' ( avg): 8.6 E/e' (lat): 9.7 E/e' ( sept): 7.8 57 Gale Boyce TAPPER HAND CV ECHO ORDERABLES Performing Organization Address City/State/ZIP Code Phon e Number [facility] IR FL PORT PLACEMENT (12/16/2021 5:58 PM CDT) Anatomical Region Laterality Modality X-Ray Angiography, U ltrasound Specimen (Source) Anatomical Location Collection Method / Collectio n Time Received Time / Laterality Volume Narrative 12/16/2021 6:42 PM CDT Date of Procedure: 12/16/21 Attending Physician: Chandra Lucas MD Casket Assembler: None Pre-procedure Diagnosis: 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 Port: Bard PowerPort Clearvue SLIM Implantable Port Catheter size: 8F Operative Findings: Successful percutaneous image-guided pow er-injectable chest port placement in the left internal jugular vein. Consent: The procedure, risks, indicatio ns and alternatives were explained. All questions were answered and informed consent was obtained. I have reviewed the history and physical dictated by the mid-level practitioner / fellow. Sedation/Anesthesia: Moderate sedation for pain control and a nxiety was administered by a dedicated nurse under my supervision. There was continuous monitoring of oxygen saturation, heart rate and interm ittent monitoring of blood pressure during the procedure. Medicat ion given was midazolam and fentanyl. I was present for the admin istration of the medications indicated above. Procedure Events Event Event Time Sedation Start 12/16/2021 4:50 PM Sedation End 12/16/2021 5:46 PM Insertion site prepped with: Chlorhexadi ne gluconate Procedure in Detail: A time out was performed prior to the st art of the procedure and the correct patient, procedure, presence of consent, site, and side were confirmed with all members of the team. Insertion site was prepped and cleaned with aseptic technique. Sterile devices and equipment were used. Doors were closed and traffic kept to a minimum during the procedure. Skin prep agent was allowed to dry prior to p rocedure. Maximum sterile barriers were used including sterile gloves, gown , cap, mask and head to toe sterile cover. Hand hygiene was performe d prior to insertion by all persons performing/assisting with proced ure. Ultrasound evaluation of the access site demonstrated a patent and compressible vein. Lidocaine 1% was us ed for local anesthesia. Under ultrasound imaging guidance, a 21 gauge needle was advanced into the left internal jugular vein and the access sit e was scaled up to accept a micropuncture transitional dilator. An image was obtained and placed into the medical record. A wire was advanced into the inferior ve na cava under fluoroscopic guidance to secure access. An appropri ate site within the upper chest was determined and an incision was created. A subcutaneous pocket below the incision site was created. The subcuta neous tunnel was then created in the upper chest and the port catheter wa s advanced through the tunnel. The venous access site was scaled up to accept a peel-away sheath. The catheter was then advanced through the s elvis, with the tip of the catheter in a satisfactory position at t he SVC/atrial junction on fluoroscopy. The catheter was connected to the hub of the chest port. The chest port hub was placed within the sub cutaneous pocket. Venous access incision closed with Dermabond. The port pocket incision was closed as below. Port pocket closure: The incision was approximated with multi ple subdermal sutures. Additional Comments: None Estimated Blood Loss: Minimal Specimens Removed: No Disposition: PACU Plan: Port Catheter positioning was confirm ed with a fluoroscopic image at the conclusion of the procedure. Tip of th e catheter lies at the SVC/RA junction. The port is now ready for im mediate use. Patient will be contacted in 1-2 week s for a post port placement incision check. I certify my physical presence at the [facility] of the procedure. I personally reviewed the image(s) and the resident's / fellow's interpretation and agree with the written report. Gale Boyce APN IMG IR ORDERABLES (ABNORMAL) POC Glucose Screen (12/16/2021 3:23 PM CDT) P athologist Signature POC Glucose 159 (H) 70 - 99 POC [facility] mg/dL Comment: Capillary blood samples, e.g. obtained b y fingerstick, may have inaccurate results in patients with decreased peripheral blood flow. Method description: All results are omar ured using Electrochemistry test methodology. The glucose in the sample mixes with the reagents on the test strip. The reaction produces an electric current. The amount of current produced is proportion al to the glucose concentration in the blood. PO Sample Type Venous POC [facility] Performing Lab [facility] POC TELCO R Comment: [facility], [address] [place] [id number]; Lab Direct or: Nancy Aragon MD Specimen Anatomical Collection Method Collection Time Receive d Time (Source) Location / / Volume Laterality Blood 12/16/2021 3:23 12/16/2021 PM CDT 3:23 PM CDT Hannah OVERTON POCT ORDERABLES - DEVICE Performing Organization Address City/[facility] Phon e Number POC [facility] Glucose, Random (12/16/2021 12:41 PM CDT) athologist Signature Glucose Random 189 70 - 199 [facility] mg/dL Comment: Effective 04/09/16, the glucose reference intervals have been updated based on [place] [employer] guidelines (Standards of Medical Care in Diabetes 2016. Diabetes Care 2016; 39: S13-S22) Fasting blood glucose: Normal: 70-99 mg/dL Impaired fasting glucose (increased risk for diabetes or pre-diabetes): 100-125 mg/dL Diabetes mellitus: >/= 126 mg/dL Random blood glucose: Normal: 70-199 mg/dL Note: Random glucose >100 mg/dL is assoc iated with increased risk for diabetes Testing Performed at [facility] Lab Home Health Registered Nurse [facility], [address] [place] [address], [address], [place] [address] Specimen Anatomical Collection Method Collection Time Receive d Time (Source) Location / / Volume Laterality Blood 12/16/2021 12:41 12/16/2021 PM CDT 12:46 PM CDT Hannah OVERTON LAB BLOOD ORDERABLES Performing Organization Address City/[facility] Phon e Number [address] [place] [address] [address] Anion Gap (12/16/2021 12:41 PM CDT) athologist Signature Anion Gap 10 4 - 14 mEq/L [facility] Comment: Testing Performed at [facility] Lab [facility], [address] [facility], [address], [place] [address] Specimen Anatomical Collection Method Collection Time Receive d Time (Source) Location / / Volume Laterality Blood 12/16/2021 12:41 12/16/2021 PM CDT 12:46 PM CDT Hannah OVERTON LAB BLOOD ORDERABLES Performing Organization Address City/State/ZIP Code Phon e Number [facility] [address] [place] [address] [address] (ABNORMAL) .Serum Creatinine (12/16/2021 12:41 PM CDT) athologist [facility] Creatinine 0.98 (H) 0.51 - 0.95 [facility] mg/dL Comment: Testing Performed at [facility] Lab [facility], [address], [address], [place] [id number] Specimen Anatomical Collection Method Collection Time Receive d Time (Source) Location / / Volume Laterality Blood 12/16/2021 12:41 12/16/2021 PM CDT 12:46 PM CDT Hannah OVERTON LAB BLOOD ORDERABLES Performing Organization Address City/[facility]/ZIP Code Phon e Number [facility] [address] [place] [address] [address] Clot Expiration Date (12/16/2021 12:41 PM CDT) [facility] S 12/19/2021 [facility] Specimen Anatomical Collection Method Collection Time Receive d Time (Source) Location / / Volume Laterality Blood 12/16/2021 12:41 12/16/2021 PM CDT 2:23 PM CDT Hannah OVERTON BLOOD BANK TEST ORDERABLES Performing Organization Address City/State/ZIP Code Phon e Number [facility] Unless otherwise noted, [place] [address] CENTER all lab tests performed by: Division of Pathology and Laboratory Medicine [address] [place] [address] [place] (ABNORMAL) Glomerular Filtration Rate (12/16/2021 12:41 PM CDT) athologist Signature eGFR-AA 63 >=60 [facility] mL/min/1.73 sq. m Comment: Normal eGFR >= 60 mL/min/1.73 m2 Note: The eGFR is calculated using the C KD-EPI equation. The eGFR declines with age. eGFR <60 mL/min/1.73 m2 is considered as "decreased". This equation should only be used for patients 18 and older. According to the National [employer] ion's Kidney Disease Outcome Quality Initiative (KDOQI) classification and 2012 Kidney Disease Improving Global Outcomes (KDIGO) Clinical Practice Guideline, the stage of CKD should be categorized based on estimated GFR. Stage Description GFR mL/min/1. 73 m2 1 Normal or high GFR >=90 2 Mildly decreased GFR 60-89 3a Mildly to moderately decreased GFR 45-59 3b Moderately to severely decreased GFR 30-44 4 Severely decreased GFR 15-29 5 Kidney failure <15 Testing Performed at [facility], [address] [place] [address], [address], [place] [address] eGFR-DORCAS 54 (L) >=60 mL/min/1.73 sq. m [facility] Comment: Normal eGFR >= 60 mL/min/1.73 m2 Note: The eGFR is calculated using the C KD-EPI equation. The eGFR declines with age. eGFR <60 mL/min/1.73 m2 is considered as "decreased". This equation should only be used for patients 18 and older. According to the National [employer] ion's Kidney Disease Outcome Quality Initiative (KDOQI) classification and 2012 Kidney Disease Improving Global Outcomes (KDIGO) Clinical Practice Guideline, the stage of CKD should be categorized based on estimated GFR. Stage Description GFR mL/min/1. 73 m2 1 Normal or high GFR >=90 2 Mildly decreased GFR 60-89 3a Mildly to moderately decreased GFR 45-59 3b Moderately to severely decreased GFR 30-44 4 Severely decreased GFR 15-29 5 Kidney failure <15 Testing Performed at [facility] Home Health Registered Nurse [facility], [facility], [address], [place] [address] Specimen Anatomical Collection Method Collection Time Receive d Time (Source) Location / / Volume Laterality Blood 12/16/2021 12:41 12/16/2021 PM CDT 12:46 PM CDT Hannah OVERTON LAB BLOOD ORDERABLES Performing Organization Address City/State/ZIP Code Phon e Number [facility] [address] [place] [address] [address] TMP Interpretation Antibody Screen Negative (12/16/2021 12:41 PM CDT) [facility] gist Method Time Signature TMP Auto Neg At the [facility] Interp [facility], [facility]CER CENTER patient plasma shows no evidence of RBC alloantibodi es. Comment: MD Jerald [id number] Dictated by: MD Jerald BERRY Dictated Date/Time: 12.16.2021 22:16 PM CDT Transcribed Date/Time: 12.16.2021 22:16 PM CDT Electronically Signed By: MD Jerald BERRY on 12.16.2021 22:16 PM Specimen Anatomical Collection Method Collection Time Receive d Time (Source) Location / / Volume Laterality Blood 12/16/2021 12:41 12/16/2021 PM CDT 2:23 PM CDT Hannah OVERTON BLOOD BANK TEST ORDERABLES Performing Organization Address City/State/ZIP Code Phon e Number [facility] Unless otherwise noted, [address] all lab tests performed by: Division of Pathology and Laboratory Medicine [address] [place] [address] ABORh (12/16/2021 12:41 PM CDT) [facility] ABORh. O NEG [facility] Specimen Anatomical Collection Method Collection Time Receive d Time (Source) Location / / Volume Laterality Blood 12/16/2021 12:41 12/16/2021 PM CDT 2:23 PM CDT Hannah OVERTON BLOOD BANK TEST ORDERABLES Performing Organization Address City/State/ZIP Code Phon e Number [facility] Unless otherwise noted, [address] all lab tests performed by: Division of Pathology and Laboratory Medicine [address] [place] [address] Antibody Screen (12/16/2021 12:41 PM CDT) athologist Signature ABSC. Negative ABSC [facility] Specimen Anatomical Collection Method Collection Time Receive d Time (Source) Location / / Volume Laterality Blood 12/16/2021 12:41 12/16/2021 PM CDT 2:23 PM CDT Hannah OVERTON BLOOD BANK TEST ORDERABLES Performing Organization Address City/State/ZIP Code Phon e Number [facility] Unless otherwise noted, [place] [address] CENTER all lab tests performed by: Division of Pathology and Laboratory Medicine [address] [place] BUN (12/16/2021 12:41 PM CDT) athologist Signature BUN 7 6 - 23 mg/dL [facility] Comment: Testing Performed at B Lab [facility], [address], [address], [place] [address] Specimen Anatomical Collection Method Collection Time Receive d Time (Source) Location / / Volume Laterality Blood 12/16/2021 12:41 12/16/2021 PM CDT 12:46 PM CDT Hannah OVERTON LAB BLOOD ORDERABLES Performing Organization Address City/State/ZIP Code Phon e Number [facility] [address] [place] [address] [address] Sodium Level (12/16/2021 12:41 PM CDT) athologist Signature Sodium Lvl 144 136 - 145 [facility] mEq/L Comment: Testing Performed at B Lab [facility], [address], [address], [place] [address] Specimen Anatomical Collection Method Collection Time Receive d Time (Source) Location / / Volume Laterality Blood 12/16/2021 12:41 12/16/2021 PM CDT 12:46 PM CDT Hannah OVERTON LAB BLOOD ORDERABLES Performing Organization Address City/[facility]/ZIP Code Phon e Number [facility] [address] [place] [address] [address] Potassium (12/16/2021 12:41 PM CDT) athologist Signature Potassium Lvl 4.1 3.5 - 5.1 [facility] mEq/L Comment: Testing Performed at [facility] Am bulatory Care [facility], [address], [address], [place] [address] Specimen Anatomical Collection Method Collection Time Receive d Time (Source) Location / / Volume Laterality Blood 12/16/2021 12:41 12/16/2021 PM CDT 12:46 PM CDT Hannah OVERTON LAB BLOOD ORDERABLES Performing Organization Address City/State/ZIP Code Phon e Number [facility] [address] [place] [address] [address] Chloride Level (12/16/2021 12:41 PM CDT) P athologist Signature Chloride 107 98 - 107 [facility] mEq/L Comment: Testing Performed at [facility], [address], [address], [place] [address] Specimen Anatomical Collection Method Collection Time Receive d Time (Source) Location / / Volume Laterality Blood 12/16/2021 12:41 12/16/2021 PM CDT 12:46 PM CDT Hannah OVERTON LAB BLOOD ORDERABLES Performing Organization Address City/[facility]/ZIP Code Phon e Number [facility] [address] [place] [address] [address] Carbon Dioxide Level (12/16/2021 12:41 PM CDT) P athologist Signature CO2 27 22 - 29 [facility] mEq/L Comment: Testing Performed at [facility], [address], [address], [place] [address] Specimen Anatomical Collection Method Collection Time Receive d Time (Source) Location / / Volume Laterality Blood 12/16/2021 12:41 12/16/2021 PM CDT 12:46 PM CDT Hannah OVERTON LAB BLOOD ORDERABLES Performing Organization Address City/State/ZIP Code Phon e Number [facility] [address] [place] [address] [address] Confirm ABORh (12/16/2021 12:40 PM CDT) P athologist Signature ABORh Confirm. O NEG [facility] Specimen Anatomical Collection Method Collection Time Receive d Time (Source) Location / / Volume Laterality Blood 12/16/2021 12:40 12/16/2021 PM CDT 2:23 PM CDT Hannah OVERTON BLOOD BANK TEST ORDERABLES Performing Organization Address City/[facility]/ZIP Code Phon e Number [facility] Unless otherwise noted, [place] [address] CENTER all lab tests performed by: Division of Pathology and Laboratory Medicine [facility] Prothrombin Time (12/16/2021 12:33 PM CDT) athologist Signature PT 12.5 11.5 - 13.9 [facility] second(s) Comment: Testing Performed at [facility] Lab Home Health Registered Nurse [facility] [address], [address] [place] [address] INR 1.00 0.90 - 1.10 [facility] Comment: Testing Performed at [facility] Lab Home Health Registered Nurse [facility] [address], [address] [place] [address] Specimen Anatomical Collection Method Collection Time Receive d Time (Source) Location / / Volume Laterality Blood 12/16/2021 12:33 12/16/2021 PM CDT 12:42 PM CDT Narrative [facility] - 12/16/2021 1:13 PM CDT This lab cannot be scheduled at the [facility] locations due to collection/proccessing restrictions: [facility] and [facility]. Hannah OVERTON LAB BLOOD ORDERABLES Performing Organization Address [facility] Phon e Number [facility] [address] [place] [address] [address] EKG, 12-Lead (Scheduled) (12/16/2021) Specimen (Source) Anatomical Location Collection Method / Collectio n Time Received Time / Laterality Volume Narrative This result has an attachment that is no t available. Hannah OVERTON ECG ORDERABLES Performing Organization Address City/[facility]/ZIP Code Phon e Number [facility] Post Procedure Mammogram Right (12/13/2021 11:41 AM CDT) Anatomical Region Laterality Modality Breast Left Mammography Specimen (Source) Anatomical Collection Method Collection Time Re ceived Time Location / / Volume Laterality 12/13/2021 11:55 AM CDT Addenda Addendum by Jhon Elias MD on 022 7:27 AM CDT ADDENDED REPORT ----- 12/18/2021 Addendum: Pathology has been reported as: Diagnosis A. Breast, right, fine needle asp, Right breast mass 6:00 4cmfn: No malignant cells identified Benign maritza hugo epithelium with apocrine metaplasia in a background of cystic debris and sca ttered macrophages consistent with fibrocystic change Diagnosis A. Breast, right, 9:00, 4 cm from nipple , mass fine needle aspiration: Papillary lesion with ductal hyperplasia , without atypia. Apocrine metaplasia and fibrocystic changes. These results are considered benign and concordant. TIAN Grossman and Dr. Ami Lira were notified o f these results by secure institutional electronic mail on 12-15-2021 at 7:48 PM. Impressions 12/13/2021 11:55 AM CDT Technically successful ultrasound guided biopsy of the right breast. An addendum will be issued once the final pathology result is available and reviewed. Examination: Post Procedure Mammogram Ri t 12/13/2021. Clinical Indication: Patient is a 81 y ears old female and is seen for post procedure mammogram. Findings: See Ultrasound-guided biopsy r eport done same date. Narrative 12/13/2021 11:55 AM CDT Examination: Right Breast Ultrasound Guided Needle Biopsy with Marker Clip Placement and Post Biopsy Mammograms, . Clinical History: 81-year-old woman wi th an abnormal breast ultrasound presenting for biopsy. Indication: Suspicious finding(s) on rec ent breast ultrasound. Comparison: Breast Ultrasound from 11-20. Technique: Ultrasound imaging of the rig ht [...] ident ified in the right breast at 9 o'clock, 4cm from the nipple. The biopsy needle w as advanced to the targeted lesion. Biopsy was performed with a 21-gauge nee dle, and 2 passes were made. Immediate cytopathology assessment was performed, and the specimen was deemed adequate for diagnosis. Preliminary cytology result is high risk. A marker clip was deployed into the biopsi ed lesion. At the conclusion of the procedure, pressure was held until cessa tion of bleeding. The skin incision was closed with Steri-strips and covered wit h a bandage. A Bard coil marker clip was placed at th e biopsy site. Post procedure mammography confirms expected positionin g of the marker clip(s) The clip marker lies within the biopsi ed lesion. Site 2: The lesion in question was ident ified in the right breast at 6 o'clock 4cm from the nipple. The biopsy trocar w as advanced to the targeted lesion. Biopsy was performed with a 21-gauge nee dle, and 2 passes were made. Immediate cytopathology assessment was performed, and the specimen was deemed adequate for diagnosis. Preliminary cytology result is benign. The estimated blood loss for the procedu re was minimal. The patient tolerated the procedure well without immediate com plications and left the department in good condition. Procedure Note Jhon Elias MD - 12/13/2021 Examination: Right Breast Ultrasound Rogers ded Needle Biopsy with Marker Clip Placement and Post Biopsy Mammograms, . Clinical History: 81-year-old woman wit h an abnormal breast ultrasound presenting for biopsy. Indication: Suspicious finding(s) on rec ent breast ultrasound. Comparison: Breast Ultrasound from 2021. Technique: Ultrasound imaging of the rig ht [...] ident ified in the right breast at 9 o'clock, 4cm from the nipple. The biopsy needle w as advanced to the targeted lesion. Biopsy was performed with a 21-gauge nee dle, and 2 passes were made. Immediate cytopathology assessment was performed, and the specimen was deemed adequate for diagnosis. Preliminary cytology result is high risk. A marker clip was deployed into the biopsi ed lesion. At the conclusion of the procedure, pressure was held until cessa tion of bleeding. The skin incision was closed with Steri-strips and covered wit h a bandage. A Bard coil marker clip was placed at th e biopsy site. Post procedure mammography confirms expected positionin g of the marker clip(s) The clip marker lies within the biopsie d lesion. Site 2: The lesion in question was ident ified in the right breast at 6 o'clock 4cm from the nipple. The biopsy trocar w as advanced to the targeted lesion. Biopsy was performed with a 21-gauge nee dle, and 2 passes were made. Immediate cytopathology assessment was performed, and the specimen was deemed adequate for diagnosis. Preliminary cytology result is benign. The estimated blood loss for the procedu re was minimal. The patient tolerated the procedure well without immediate com plications and left the department in good condition. IMPRESSION: Technically successful ultrasound guided biopsy of the right breast. An addendum will be issued once the final pathology result is available and reviewed. Examination[facility] Clinical Indication: Patient is a 81 ye ars old female and is seen for post procedure mammogram. Findings: See Ultrasound-guided biopsy r eport done same date. Mallory OVERTON IMSunil MAMMOGRAPHY ORDERABLES US Breast FNA Right (12/13/2021 11:34 AM CDT)Only the most recent of2 results within the time period is included. Anatomical Region Laterality Modality Breast Right Ultrasound Specimen (Source) Anatomical Collection Method Collection Time Re ceived Time Location / / Volume Laterality 12/13/2021 11:55 AM CDT Addenda Addendum by Jhon Elias MD on 022 7:27 AM CDT ADDENDED REPORT ----- 12/18/2021 Addendum: Pathology has been reported as: Diagnosis A. Breast, right, fine needle asp, Right breast mass 6:00 4cmfn: No malignant cells identified Benign maritza hugo epithelium with apocrine metaplasia in a background of cystic debris and sca ttered macrophages consistent with fibrocystic change Diagnosis A. Breast, right, 9:00, 4 cm from nipple , mass fine needle aspiration: Papillary lesion with ductal hyperplasia , without atypia. Apocrine metaplasia and fibrocystic changes. These results are considered benign and concordant. TIAN Grossman and Dr. Ami Lira were notified o f these results by secure institutional electronic mail on 12-15-2021 at 7:48 PM. Impressions 12/13/2021 11:55 AM CDT Technically successful ultrasound guided biopsy of the right breast. An addendum will be issued once the final pathology result is available and reviewed. Examination: Post Procedure Mammogram Ri t 12/13/2021. Clinical Indication: Patient is a 81 y ears old female and is seen for post procedure mammogram. Findings: See Ultrasound-guided biopsy r eport done same date. Narrative 12/13/2021 11:55 AM CDT Examination: Right Breast Ultrasound Guided Needle Biopsy with Marker Clip Placement and Post Biopsy Mammograms, . Clinical History: 81-year-old woman wi th an abnormal breast ultrasound presenting for biopsy. Indication: Suspicious finding(s) on rec ent breast ultrasound. Comparison: Breast Ultrasound from 11-20. Technique: Ultrasound imaging of the rig ht [...] ident ified in the right breast at 9 o'clock, 4cm from the nipple. The biopsy needle w as advanced to the targeted lesion. Biopsy was performed with a 21-gauge nee dle, and 2 passes were made. Immediate cytopathology assessment was performed, and the specimen was deemed adequate for diagnosis. Preliminary cytology result is high risk. A marker clip was deployed into the biopsi ed lesion. At the conclusion of the procedure, pressure was held until cessa tion of bleeding. The skin incision was closed with Steri-strips and covered wit h a bandage. A Bard coil marker clip was placed at th e biopsy site. Post procedure mammography confirms expected positionin g of the marker clip(s) The clip marker lies within the biopsi ed lesion. Site 2: The lesion in question was ident ified in the right breast at 6 o'clock 4cm from the nipple. The biopsy trocar w as advanced to the targeted lesion. Biopsy was performed with a 21-gauge nee dle, and 2 passes were made. Immediate cytopathology assessment was performed, and the specimen was deemed adequate for diagnosis. Preliminary cytology result is benign. The estimated blood loss for the procedu re was minimal. The patient tolerated the procedure well without immediate com plications and left the department in good condition. Procedure Note Jhon Elias MD - 12/13/2021 Examination: Right Breast Ultrasound Rogers ded Needle Biopsy with Marker Clip Placement and Post Biopsy Mammograms, . Clinical History: 81-year-old woman wit h an abnormal breast ultrasound presenting for biopsy. Indication: Suspicious finding(s) on rec ent breast ultrasound. Comparison: Breast Ultrasound from 2021. Technique: Ultrasound imaging of the rig ht [...] ident ified in the right breast at 9 o'clock, 4cm from the nipple. The biopsy needle w as advanced to the targeted lesion. Biopsy was performed with a 21-gauge nee dle, and 2 passes were made. Immediate cytopathology assessment was performed, and the specimen was deemed adequate for diagnosis. Preliminary cytology result is high risk. A marker clip was deployed into the biopsi ed lesion. At the conclusion of the procedure, pressure was held until cessa tion of bleeding. The skin incision was closed with Steri-strips and covered wit h a bandage. A Bard coil marker clip was placed at th e biopsy site. Post procedure mammography confirms expected positionin g of the marker clip(s) The clip marker lies within the biopsie d lesion. Site 2: The lesion in question was ident ified in the right breast at 6 o'clock 4cm from the nipple. The biopsy trocar w as advanced to the targeted lesion. Biopsy was performed with a 21-gauge nee dle, and 2 passes were made. Immediate cytopathology assessment was performed, and the specimen was deemed adequate for diagnosis. Preliminary cytology result is benign. The estimated blood loss for the procedu re was minimal. The patient tolerated the procedure well without immediate com plications and left the department in good condition. IMPRESSION: Technically successful ultrasound guided biopsy of the right breast. An addendum will be issued once the final pathology result is available and reviewed. Examination: Post Procedure Mammogram [facility] 12/13/2021. Clinical Indication: Patient is a 81 ye ars old female and is seen for post procedure mammogram. Findings: See Ultrasound-guided biopsy r eport done same date. Mallory OVERTON IMG US ORDERABLES US Guided Breast Clip Placement Right (12/13/2021 11:34 AM CDT) Anatomical Region Laterality Modality Breast Right Ultrasound Specimen (Source) Anatomical Collection Method Collection Time Re ceived Time Location / / Volume Laterality 12/13/2021 11:55 AM CDT Addenda Addendum by Jhon Elias MD on 022 7:27 AM CDT ADDENDED REPORT ----- 12/18/2021 Addendum: Pathology has been reported as: Diagnosis A. Breast, right, fine needle asp, Right breast mass 6:00 4cmfn: No malignant cells identified Benign maritza hugo epithelium with apocrine metaplasia in a background of cystic debris and sca ttered macrophages consistent with fibrocystic change Diagnosis A. Breast, right, 9:00, 4 cm from nipple , mass fine needle aspiration: Papillary lesion with ductal hyperplasia , without atypia. Apocrine metaplasia and fibrocystic changes. These results are considered benign and concordant. TIAN Grossman and Dr. Ami Lira were notified o f these results by secure institutional electronic mail on 12-15-2021 at 7:48 PM. Impressions 12/13/2021 11:55 AM CDT Technically successful ultrasound guided biopsy of the right breast. An addendum will be issued once the final pathology result is available and reviewed. Examination: Post Procedure Mammogram Ri ght 12/13/2021. Clinical Indication: Patient is a 81 y ears old female and is seen for post procedure mammogram. Findings: See Ultrasound-guided biopsy r eport done same date. Narrative 12/13/2021 11:55 AM CDT Examination: Right Breast Ultrasound Guided Needle Biopsy with Marker Clip Placement and Post Biopsy Mammograms, . Clinical History: 81-year-old woman wi th an abnormal breast ultrasound presenting for biopsy. Indication: Suspicious finding(s) on rec ent breast ultrasound. Comparison: Breast Ultrasound from 11-20. Technique: Ultrasound imaging of the rig ht [...] ident ified in the right breast at 9 o'clock, 4cm from the nipple. The biopsy needle w as advanced to the targeted lesion. Biopsy was performed with a 21-gauge nee dle, and 2 passes were made. Immediate cytopathology assessment was performed, and the specimen was deemed adequate for diagnosis. Preliminary cytology result is high risk. A marker clip was deployed into the biopsi ed lesion. At the conclusion of the procedure, pressure was held until cessa tion of bleeding. The skin incision was closed with Steri-strips and covered wit h a bandage. A Bard coil marker clip was placed at th e biopsy site. Post procedure mammography confirms expected positionin g of the marker clip(s) The clip marker lies within the biopsi ed lesion. Site 2: The lesion in question was ident ified in the right breast at 6 o'clock 4cm from the nipple. The biopsy trocar w as advanced to the targeted lesion. Biopsy was performed with a 21-gauge nee dle, and 2 passes were made. Immediate cytopathology assessment was performed, and the specimen was deemed adequate for diagnosis. Preliminary cytology result is benign. The estimated blood loss for the procedu re was minimal. The patient tolerated the procedure well without immediate com plications and left the department in good condition. Procedure Note Jhon Elias MD - 12/13/2021 Examination: Right Breast Ultrasound Rogers ded Needle Biopsy with Marker Clip Placement and Post Biopsy Mammograms, . Clinical History: 81-year-old woman wit h an abnormal breast ultrasound presenting for biopsy. Indication: Suspicious finding(s) on rec ent breast ultrasound. Comparison: Breast Ultrasound from 2021. Technique: Ultrasound imaging of the rig ht [...] ident ified in the right breast at 9 o'clock, 4cm from the nipple. The biopsy needle w as advanced to the targeted lesion. Biopsy was performed with a 21-gauge nee dle, and 2 passes were made. Immediate cytopathology assessment was performed, and the specimen was deemed adequate for diagnosis. Preliminary cytology result is high risk. A marker clip was deployed into the biopsi ed lesion. At the conclusion of the procedure, pressure was held until cessa tion of bleeding. The skin incision was closed with Steri-strips and covered wit h a bandage. A Bard coil marker clip was placed at th e biopsy site. Post procedure mammography confirms expected positionin g of the marker clip(s) The clip marker lies within the biopsie d lesion. Site 2: The lesion in question was ident ified in the right breast at 6 o'clock 4cm from the nipple. The biopsy trocar w as advanced to the targeted lesion. Biopsy was performed with a 21-gauge nee dle, and 2 passes were made. Immediate cytopathology assessment was performed, and the specimen was deemed adequate for diagnosis. Preliminary cytology result is benign. The estimated blood loss for the procedu re was minimal. The patient tolerated the procedure well without immediate com plications and left the department in good condition. IMPRESSION: Technically successful ultrasound guided biopsy of the right breast. An addendum will be issued once the final pathology result is available and reviewed. Examination: Post Procedure Mammogram Ri t 12/13/2021. Clinical Indication: Patient is a 81 ye ars old female and is seen for post procedure mammogram. Findings: See Ultrasound-guided biopsy r eport done same date. Mallory OVERTON IMG US ORDERABLES Cytology Image-Guided FNA Interpretation (12/13/2021 9:56 AM CDT)Only the most recent of4 resultswithin the time period is included. Component Value Ref Test Analysis Performed Pathologis t Range Method Time At Signature Gross A: 12/13/2021 [facility] Description Specimens procured: 4:37 PM 2 Diff Quik; 5 Pap Stain Slides CDT 10 ml, clear red fluid in RPMI 1 Cytospin Size: 0.5 cm Immediate assessment for specimen adequacy was made x1 by Dr Yogesh Robles. Immediate Adequate 12/13/2021 [facility] Assessment cellularity, 4:37 PM favor benign CDT Major [facility]/benign 12/13/2021 [facility] Elect ronically Classification 4:37 PM fady d by Sue CDT Nitza gar MD on 2 at 4:37 PM Diagnosis A. Breast, right, fine needle asp, Right breast mass 6 :00 4cmfn: 12/13/2021 [facility] Electronically 4:37 PM signed by Sue No malignant cells identified CDT Nitza Robles MD Benign ductal epithelium wit h apocrine metaplasia in a background of cystic debris and scattered macrophages consistent with fibrocystic change on 12/13/2021 at 4:37 PM Retained/Biomark SR: 8 S 12/13/2021 [facility] er Testing 4:37 PM CDT Informational Some tests 12/13/2021 [facility] Points reported here may 4:37 PM have been CDT developed and performance characteristics determined by [facility]. These tests have not been specifically cleared or approved by the U.S. Food and Drug Administration. This case was screened at [place] [facility], [address], [place] [address]. Specimen Anatomical Collection Method Collection Time Receive d Time (Source) Location / / Volume Laterality Fine Needle Asp 12/13/2021 9:56 12/14/19 22 (Breast, Right) AM CDT 12:10 PM CDT Mallory OVERTON LAB CYTOLOGY ORDERABLES Performing Organization Address City/State/ZIP Code Phon e Number [facility] [place] [id number] Chest Abdomen Pelvis with and without Contrast (12/06/2021 1:17 PM CDT) Anatomical Region Laterality Modality Abdomen, Pelvis, Chest Computed Tomograp hy Specimen (Source) Anatomical Collection Method Collection Time Re ceived Time Location / / Volume Laterality 12/06/2021 3:35 PM CDT Impressions 12/06/2021 3:49 PM CDT 1. Biopsy marker clips at the site of the known primary in the right breast and the known metastatic lymph node in the right axilla. 2. Otherwise no evidence of metastatic disease in the chest, abdomen, or pelvis. 3. A prominent lymph node in the right external iliac region measures 0.9 cm, and is indeterminate. Recommend attention on follow-up in this patient with a history of endometrial cancer. 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 Indication: breast cancer Comparison: None Technique: CT of the abdomen was perform ed without intravenous contrast followed by CT of the chest, abdomen, and pelvis with intravenous contrast. Findings: CHEST: A 0.3 cm pulmonary nodule in the right l enid apex (image 23 of series 8) is nonspecific due to its small size. Several punctate densities in the subple ural regions of the lungs are nonspecific due to their small size. This may be monitored for stability. No definitely suspicious pulmonary nodules. No pleural effusions. A 0.4 cm subcutaneous density in the rig ht shoulder region is nonspecific (image 2 of series 6). Biopsy marker clip in a right axillary l ymph node (image 38 of series 6), consistent with the biopsy-proven metastatic node. No pathologically enlarged lymph nodes in the right axilla nor elsewhere in the chest by CT criteria. Biopsy marker clip in the right breast c onsistent with known primary malignancy. ABDOMEN AND PELVIS: No suspicious liver lesions. The spleen, pancreas, adrenal glands, an d both kidneys are unremarkable. A lymph node posterior to the right exte rnal iliac vessels measures 0.9 cm (image 237 of series 7) this is prominent compared to the remainder of the nodes in the pelvis and is indeterminate. Recommend attention on follow-up. Otherwise no howard dence of lymphadenopathy in the abdomen or pelvis. The uterus and ovaries are surgically ab sent. Loops of bowel are normal in course and caliber with no dilated loops. No suspicious bone lesions. Procedure Note Rachel Dior MD - 12/06/2021Format ting of this note might be different from the original. 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 Indication: breast cancer Comparison: None Technique: CT of the abdomen was perform ed without intravenous contrast followed by CT of the chest, abdomen, and pelvis with intravenous contrast. Findings: CHEST: A 0.3 cm pulmonary nodule in the right l enid apex (image 23 of series 8) is nonspecific due to its small size. Several punctate densities in the subple ural regions of the lungs are nonspecific due to their small size. This may be monitored for stability. No definitely suspicious pulmonary nodules. No pleural effusions. A 0.4 cm subcutaneous density in the rig ht shoulder region is nonspecific (image 2 of series 6). Biopsy marker clip in a right axillary l ymph node (image 38 of series 6), consistent with the biopsy-proven metastatic node. No pathologically enlarged lymph nodes in the right axilla nor elsewhere in the chest by CT criteria. Biopsy marker clip in the right breast c onsistent with known primary malignancy. ABDOMEN AND PELVIS: No suspicious liver lesions. The spleen, pancreas, adrenal glands, an d both kidneys are unremarkable. A lymph node posterior to the right exte rnal iliac vessels measures 0.9 cm (image 237 of series 7) this is prominent compared to the remainder of the nodes in the pelvis and is indeterminate. Recommend attention on follow-up. Otherwise no evidence of lymp hadenopathy in the abdomen or pelvis. The uterus and ovaries are surgically ab sent. Loops of bowel are normal in course and caliber with no dilated loops. No suspicious bone lesions. IMPRESSION: 1. Biopsy marker clips at the site of t he known primary in the right breast and the known metastatic lymph node in the right axilla. 2. Otherwise no evidence of metastatic disease in the chest, abdomen, or pelvis. 3. A prominent lymph node in the right external iliac region measures 0.9 cm, and is indeterminate. Recommend attention on follow-up in this patient with a history of endometrial cancer. Mallory OVERTON IMSunil CT ORDERABLES (ABNORMAL) POC Creatinine (12/06/2021 11:46 AM CDT) P athologist Signature POC Crea 1.0 0.6 - 1.3 POC TELCOR mg/dL Comment: Medications, especially hydroxyurea or s upplements, such as ascorbate, can interfere with test results causing a falsely and significantly higher result than expected. If a problem is suspected with a patient's result, a sample should be sent to the laboratory for confirmatory testing. Method description: The i-STAT is an ami lyzer used for in vitro quantification of various analytes in whole blood. The device uses a single disposable cartridge which contains microfabricated sensors, a calibration solution, fluidics system, and a waste chamber. Each test cartridge contains ch emically sensitive biosensors on a silicon chip that are configured to perform specific tests. The microfabricated sensors measure analyte concentration by an electrochemical assay. POC eGFR-AA 61 >=60 mL/min/1.73 m2 POC TELC OR Comment: Normal eGFR >= 60 mL/min/1.73 m2 The eGFR is calculated using the CKD-EPI equation. The eGFR declines with age. eGFR <60 mL/min/1.73 m2 is considered as "decreased" This equation should only be used for patients 18 and older. According to the National Kid[employer] ion's Kidney Disease Outcome Quality Initiative (KDOQI) classification and 2012 Kidney Disease Improving Global Outcomes (KDIGO) Clinical Practice Guideline, the stage of CKD should be categorized based on estimated GFR. Stage Description GFR mL/min/1.73 m2 1 Kidney damage with normal or high GFR >=90 2 Kidney damage with mild decrease in GF R 60-89 3a Mild to moderate decrease in GFR 45-59 3b Moderate to severe decrease in GFR 30-44 4 Severe decrease in GFR 15-29 5 Kidney failure <15 (or dialysis) POC eGFR-DORCAS 53 (L) >=60 mL/min/1.73 m2 POC TEL COR Comment: Normal eGFR >= 60 mL/min/1.73 m2 The eGFR is calculated using the CKD-EPI equation. The eGFR declines with age. eGFR <60 mL/min/1.73 m2 is considered as "decreased" This equation should only be used for patients 18 and older. According to the National Kid[employer] ion's Kidney Disease Outcome Quality Initiative (KDOQI) classification and 2012 Kidney Disease Improving Global Outcomes (KDIGO) Clinical Practice Guideline, the stage of CKD should be categorized based on estimated GFR. Stage Description GFR mL/min/1.73 m2 1 Kidney damage with normal or high GFR >=90 2 Kidney damage with mild decrease in GF R 60-89 3a Mild to moderate decrease in GFR 45-59 3b Moderate to severe decrease in GFR 30-44 4 Severe decrease in GFR 15-29 5 Kidney failure <15 (or dialysis) POC Clean Dev Yes POC [facility] Performing Lab [facility] POC TELCO R Comment: [facility], [address] [place] [id number]; Lab Direct or: Nancy Aragon MD Specimen Anatomical Collection Method Collection Time Receive d Time (Source) Location / / Volume Laterality Blood 12/06/2021 11:46 12/06/2021 AM CDT 11:46 AM CDT Mallory OVERTON POCT ORDERABLES - DEVICE Performing Organization Address City/State/ZIP Code Phon e Number POC T[facility] NM Bone Scan Whole Body (12/06/2021 10:56 AM CDT) Anatomical Region Laterality Modality Whole Body Nuclear Medicine Specimen (Source) Anatomical Collection Method Collection Time Re ceived Time Location / / Volume Laterality 12/06/2021 11:02 AM CDT Impressions 12/06/2021 11:07 AM CDT No scintigraphic evidence for osseous metastases. I personally reviewed these image(s) craig hamilton with the resident's/fellow's interpretations, certify that if a procedure was performed I was physically present, and agree with the final report. Narrative 12/06/2021 11:07 AM CDT FULL RESULT: Examination: Whole-Body Bone Scan, 2021 10:56 AM Clinical History: An 81-year-old female with breast cancer. Indication: Evaluate for osseous metasta ses. Comparison: None. Technique: Following the intravenous adm inistration of 22 mCi of technetium-99m MDP, anterior and posterior delayed whole body planar images were acquired. Findings: No suspicious areas of tracer uptake to suggest osseous metastases. Tracer uptake within the bilateral shoul ders, sternoclavicular joints, lower lumbar spine, knees, ankles and right first MTP joint are likely degenerative. Physiologic tracer activity within the k idneys and bladder. Procedure Note Maynor Flores MD - 12/06/2021Formatting of t his note might be different from the original. FULL RESULT: Examination: Whole-Body Bone Scan, 2021 10:56 AM Clinical History: An 81-year-old female with breast cancer. Indication: Evaluate for osseous metasta ses. Comparison: None. Technique: Following the intravenous adm inistration of 22 mCi of technetium-99m MDP, anterior and posterior delayed whole body planar images were acquired. Findings: No suspicious areas of tracer uptake to suggest osseous metastases. Tracer uptake within the bilateral shoul ders, sternoclavicular joints, lower lumbar spine, knees, ankles and right first MTP joint are likely degenerative. Physiologic tracer activity within the k idneys and bladder. IMPRESSION: No scintigraphic evidence for osseous me tastases. I personally reviewed these image(s) craig hamilton with the resident's/fellow's interpretations, certify that if a procedure was performed I was physically present, and agree with the final report. Mallory SEE NM ORDERABLES Post Procedure Mammogram Bilateral (11/20/2021 5:56 PM DRYING UNIT FELTING MACHINE OPERATOR) Anatomical Region Laterality Modality Breast Mammography Specimen (Source) Anatomical Collection Method Collection Time Re ceived Time Location / / Volume Laterality 11/21/2021 9:52 AM DRYING UNIT FELTING MACHINE OPERATOR Addenda Addendum by Nupur Rosario DO on [...] METASTATIC ADENOCARCINOMA WITHIN ONE LYM PH NODE (1/1). SEE COMMENT D: Breast, left, left breast [...] Nupur Rosario DO on 11/21/2021 2:06 PM DRYING UNIT FELTING MACHINE OPERATOR ADDENDED REPORT ----- 11/21/2021 Addendum: Site 6: The lesion in question was ident ified in the left axillary level I region. The biopsy needle was advanced t o the targeted lesion. Biopsy was performed with a 21-gauge needle, and 1 pass was made. Immediate cytopathology assessment was performed, and the specim en was deemed adequate for diagnosis. Preliminary cytology result is benign. Impressions 11/21/2021 9:52 AM DRYING UNIT FELTING MACHINE OPERATOR Technically successful ultrasound guided biopsies of the bilateral breasts. An addendum will be issued once the final p athology result is available and reviewed. Examination: Post Procedure Mammogram Bi lateral 11/20/2021. Clinical Indication: Patient is a 81 y ears old female and is seen for post procedure mammogram. Findings: See Ultrasound-guided biopsy r eport done same date. Narrative 11/21/2021 9:52 AM DRYING UNIT FELTING MACHINE OPERATOR Examination: Right Breast Ultrasound Guided Needle Biopsy [...] Steri-strips and covered with a bandage. A Gift[employer] ribbon marker clip was placed at the [...] Ultrasound-guided biopsy r eport done same date. Elliott Murry TIAN IMSunil MAMMOGRAPHY ORDERABLES US Guided Infraclavicular Lymph Node FNA - Right (11/20/2021 5:47 PM DRYING UNIT FELTING MACHINE OPERATOR) Anatomical Region Laterality Modality Lymph Node Right Ultrasound Specimen (Source) Anatomical Collection Method Collection Time Re ceived Time Location / / Volume Laterality 11/21/2021 9:52 AM DRYING UNIT FELTING MACHINE OPERATOR Addenda Addendum by Nupur Rosario DO on [...] Nupur Rosario DO on 11/21/2021 2:06 PM DRYING UNIT FELTING MACHINE OPERATOR ADDENDED REPORT ----- 11/21/2021 Addendum: Site 6: The lesion in question was ident ified in the left axillary level I region. The biopsy needle was advanced t o the targeted lesion. Biopsy was performed with a 21-gauge needle, and 1 pass was made. Immediate cytopathology assessment was performed, and the specim en was deemed adequate for diagnosis. Preliminary cytology result is benign. Impressions 11/21/2021 9:52 AM DRYING UNIT FELTING MACHINE OPERATOR Technically successful ultrasound guided biopsies of the bilateral breasts. An addendum will be issued once the final p athology result is available and reviewed. Examination: Post Procedure Mammogram Bi lateral 11/20/2021. Clinical Indication: Patient is a 81 y ears old female and is seen for post procedure mammogram. Findings: See Ultrasound-guided biopsy r eport done same date. Narrative 11/21/2021 9:52 AM DRYING UNIT FELTING MACHINE OPERATOR Examination: Right Breast Ultrasound Guided Needle Biopsy [...] ps and covered with a bandage. A eSoftark U-shaped marker clip was placed at the [...] presenting for biopsy. Indication: Suspicious finding(s) on [facility]. Comparison: Mammogram from 11/20/2021. [place] Ultrasound from 11/20/2021. Technique: Ultrasound imaging of the rig breast was performed. The skin of the [...] Steri-strips and covered with a bandage. A Gift[employer] ribbon marker clip was placed at the [...] Ultrasound-guided biopsy r eport done same date. Elliott OVERTON IMSunil US ORDERABLES US Guided Breast Biopsy Right (11/20/2021 5:47 PM DRYING UNIT FELTING MACHINE OPERATOR) Anatomical Region Laterality Modality Breast Right Ultrasound Specimen (Source) Anatomical Collection Method Collection Time Re ceived Time Location / / Volume Laterality 11/21/2021 9:52 AM DRYING UNIT FELTING MACHINE OPERATOR Addenda Addendum by Nupur Rosario DO on [...] Nupur Rosario DO on 11/21/2021 2:06 PM DRYING UNIT FELTING MACHINE OPERATOR ADDENDED REPORT ----- 11/21/2021 Addendum: Site 6: The lesion in question was ident ified in the left axillary level I region. The biopsy needle was advanced t o the targeted lesion. Biopsy was performed with a 21-gauge needle, and 1 pass was made. Immediate cytopathology assessment was performed, and the specim en was deemed adequate for diagnosis. Preliminary cytology result is benign. Impressions 11/21/2021 9:52 AM DRYING UNIT FELTING MACHINE OPERATOR Technically successful ultrasound guided biopsies of the bilateral breasts. An addendum will be issued once the final p athology result is available and reviewed. Examination: Post Procedure Mammogram Bi lateral 11/20/2021. Clinical Indication: Patient is a 81 y ears old female and is seen for post procedure mammogram. Findings: See Ultrasound-guided biopsy r eport done same date. Narrative 11/21/2021 9:52 AM DRYING UNIT FELTING MACHINE OPERATOR Examination: Right Breast Ultrasound Guided Needle Biopsy [...] ps and covered with a bandage. A eSoftark U-shaped marker clip was placed at the [...] Steri-strips and covered with a bandage. A Giftology wing marker clip was placed at th [...] Ultrasound-guided biopsy r eport done same date. Elliott OVERTON IMSunil US ORDERABLES (ABNORMAL) US Head Neck Soft Tissue (11/20/2021 5:47 PM DRYING UNIT FELTING MACHINE OPERATOR) Anatomical Region Laterality Modality Head, Neck Ultrasound Specimen (Source) Anatomical Collection Method Collection Time Re ceived Time Location / / Volume Laterality 11/20/2021 5:39 PM DRYING UNIT FELTING MACHINE OPERATOR Impressions 11/20/2021 5:39 PM DRYING UNIT FELTING MACHINE OPERATOR 1: Mass in the right breast upper [...] Biopsy may be considered if it would microsoft exchange architect. 4: Lymph nodes in the right axilla [...] biopsy may be considered if it would microsoft exchange architect. 7: Lymph nodes in the left axilla are suspicious. Ultrasound guided biopsy is recommended. BI-RADS Category 4C: Suspicious Abnormality Narrative 11/20/2021 5:39 PM DRYING UNIT FELTING MACHINE OPERATOR CLINICAL INDICATION: Patient is a 81 year old female and is s een for abnormal mammogram FILMS COMPARED The present examination has been compare d to a prior imaging study performed at [facility] on 11/20/2021. Images [...] to a prior imaging study performed at [facility] on 11/20/2021. Images were obtained in multiple scannin g planes. Real-time sonographic imaging of both br easts (including all 4 quadrants and retroareolar region) was performed. [place] l time sonographic imaging of bilateral axilla [...] Biopsy may be considered if it would microsoft exchange architect. 4: Lymph nodes in the right axilla [...] biopsy may be considered if it would microsoft exchange architect. 7: Lymph nodes in the left axilla are s uspicious. Ultrasound guided biopsy is recommended. BI-RADS Category 4C: Suspicious Abnormality Elliott OVERTON IMSunil US ORDERABLES (ABNORMAL) US Chest for Breast Ultrasound (Add-on Only) (11/20/2021 5:47 PM DRYING UNIT FELTING MACHINE OPERATOR) Anatomical Region Laterality Modality Chest Ultrasound Specimen (Source) Anatomical Collection Method Collection Time Re ceived Time Location / / Volume Laterality 11/20/2021 5:39 PM DRYING UNIT FELTING MACHINE OPERATOR Impressions 11/20/2021 5:39 PM DRYING UNIT FELTING MACHINE OPERATOR 1: Mass in the right breast upper [...] Biopsy may be considered if it would microsoft exchange architect. 4: Lymph nodes in the right axilla [...] biopsy may be considered if it would microsoft exchange architect. 7: Lymph nodes in the left axilla are suspicious. Ultrasound guided biopsy is recommended. BI-RADS Category 4C: Suspicious Abnormality Narrative 11/20/2021 5:39 PM DRYING UNIT FELTING MACHINE OPERATOR CLINICAL INDICATION: Patient is a 81 year old female and is s een for abnormal mammogram FILMS COMPARED The present examination has been compare d to a prior imaging study performed at [facility] on 11/20/2021. Images [...] to a prior imaging study performed at [facility] on 11/20/2021. Images were obtained in multiple scannin g planes. Real-time sonographic imaging of both br easts (including all 4 quadrants and retroareolar region) was performed. [place] l time sonographic imaging of bilateral axilla [...] Biopsy may be considered if it would microsoft exchange architect. 4: Lymph nodes in the right axilla [...] biopsy may be considered if it would microsoft exchange architect. 7: Lymph nodes in the left axilla are s uspicious. Ultrasound guided biopsy is recommended. BI-RADS Category 4C: Suspicious Abnormality Elliott OVERTON IMG US ORDERABLES US Guided Breast Biopsy Left (11/20/2021 5:47 PM DRYING UNIT FELTING MACHINE OPERATOR) Anatomical Region Laterality Modality Breast Left Ultrasound Specimen (Source) Anatomical Collection Method Collection Time Re ceived Time Location / / Volume Laterality 11/21/2021 9:52 AM DRYING UNIT FELTING MACHINE OPERATOR Addenda Addendum by Nupur Rosario DO on [...] Nupur Rosario DO on 11/21/2021 2:06 PM DRYING UNIT FELTING MACHINE OPERATOR ADDENDED REPORT ----- 11/21/2021 Addendum: Site 6: The lesion in question was ident ified in the left axillary level I region. The biopsy needle was advanced t o the targeted lesion. Biopsy was performed with a 21-gauge needle, and 1 pass was made. Immediate cytopathology assessment was performed, and the specim en was deemed adequate for diagnosis. Preliminary cytology result is benign. Impressions 11/21/2021 9:52 AM DRYING UNIT FELTING MACHINE OPERATOR Technically successful ultrasound guided biopsies of the bilateral breasts. An addendum will be issued once the final p athology result is available and reviewed. Examination: Post Procedure Mammogram Bi lateral 11/20/2021. Clinical Indication: Patient is a 81 y ears old female and is seen for post procedure mammogram. Findings: See Ultrasound-guided biopsy r eport done same date. Narrative 11/21/2021 9:52 AM DRYING UNIT FELTING MACHINE OPERATOR Examination: Right Breast Ultrasound Guided Needle Biopsy [...] ps and covered with a bandage. A [employer] U-shaped marker clip was placed at the [...] Steri-strips and covered with a bandage. A [employer] wing marker clip was placed at th [...] ent breast ultrasound. Comparison: Mammogram from 11/20/2021. [place] Ultrasound from 11/20/2021. Technique: Ultrasound imaging [...] Steri-strips and covered with a bandage. A [employer] ribbon marker clip was placed at the [...] Ultrasound-guided biopsy r eport done same date. Elliott OVERTON IMSunil US ORDERABLES (ABNORMAL) US Breast Complete Bilateral (11/20/2021 5:47 PM DRYING UNIT FELTING MACHINE OPERATOR) Anatomical Region Laterality Modality Breast Bilateral Ultrasound Specimen (Source) Anatomical Collection Method Collection Time Re ceived Time Location / / Volume Laterality 11/20/2021 5:39 PM DRYING UNIT FELTING MACHINE OPERATOR Impressions 11/20/2021 5:39 PM DRYING UNIT FELTING MACHINE OPERATOR 1: Mass in the right breast upper [...] Biopsy may be considered if it would [employer] exchange architect. 4: Lymph nodes in the right axilla [...] biopsy may be considered if it would [employer]soft exchange architect. 7: Lymph nodes in the left axilla are suspicious. Ultrasound guided biopsy is recommended. BI-RADS Category 4C: Suspicious Abnormality Narrative 11/20/2021 5:39 PM DRYING UNIT FELTING MACHINE OPERATOR CLINICAL INDICATION: Patient is a 81 year old female and is s een for abnormal mammogram FILMS COMPARED The present examination has been compare d to a prior imaging study performed at [facility] on 11/20/2021. Images [...] to a prior imaging study performed at [facility] on 11/20/2021. Images were obtained in multiple scannin g planes. Real-time sonographic imaging of both br easts (including all 4 quadrants and retroareolar region) was performed. [place] l time sonographic imaging of bilateral axilla [...] Biopsy may be considered if it would [employer] exchange architect. 4: Lymph nodes in the right axilla [...] biopsy may be considered if it would [employer] exchange architect. 7: Lymph nodes in the left axilla are s uspicious. Ultrasound guided biopsy is recommended. BI-RADS Category 4C: Suspicious Abnormality Elliott OVERTON IMG US ORDERABLES US Guided Axillary Lymph Node FNA - Left for Breast Ultrasound (11/20/2021 5:47 PM DRYING UNIT FELTING MACHINE OPERATOR) Anatomical Region Laterality Modality Lymph Node Left Ultrasound Specimen (Source) Anatomical Collection Method Collection Time Re ceived Time Location / / Volume Laterality 11/21/2021 9:52 AM DRYING UNIT FELTING MACHINE OPERATOR Addenda Addendum by Nupur Rosario DO on [...] Nupur Rosario DO on 11/21/2021 2:06 PM DRYING UNIT FELTING MACHINE OPERATOR ADDENDED REPORT ----- 11/21/2021 Addendum: Site 6: The lesion in question was ident ified in the left axillary level I region. The biopsy needle was advanced t o the targeted lesion. Biopsy was performed with a 21-gauge needle, and 1 pass was made. Immediate cytopathology assessment was performed, and the specim en was deemed adequate for diagnosis. Preliminary cytology result is benign. Impressions 11/21/2021 9:52 AM DRYING UNIT FELTING MACHINE OPERATOR Technically successful ultrasound guided biopsies of the bilateral breasts. An addendum will be issued once the final p athology result is available and reviewed. Examination: Post Procedure Mammogram Bi lateral 11/20/2021. Clinical Indication: Patient is a 81 y ears old female and is seen for post procedure mammogram. Findings: See Ultrasound-guided biopsy r eport done same date. Narrative 11/21/2021 9:52 AM DRYING UNIT FELTING MACHINE OPERATOR Examination: Right Breast Ultrasound Guided Needle Biopsy [...] ps and covered with a bandage. A [employer] U-shaped marker clip was placed at the [...] Steri-strips and covered with a bandage. A [employer] ribbon marker clip was placed at the [...] Ultrasound-guided biopsy r eport done same date. Elliott OVERTON IMG US ORDERABLES Pathology Biopsy Interpretation (11/20/2021 3:46 PM DRYING UNIT FELTING MACHINE OPERATOR)Only the most recent of 2 resultswithin the time period is included. Component Value Ref Test Analysis Performed Pathologis t Range Method Time At Signature Submitted Mammography abnormal 11/25/2021 [facility] Clinical [R92.8] 11:06 AM History CDT Diagnosis A: Breast, right, right [address] 10:00, 7 cm FN, 1.8 cm palpable mass, ultrasound-guided core needle biopsy: 11/25/2021 [facility] Electronically INVASIVE DUCTAL CARCINOMA OF BREAST, HISTOLOGIC GRADE 3, NUCLEAR GRADE 3 (HIGH- GRADE), WITH MICROPAPILLARY PATTERN, ADMIXED WITH LOW-GRADE TUBULAR PATTERN (SEE COMMENT). 11:06 AM signed by CDT Kel eubanks B: Breast, right, right j[address] 11:00, 1 cm FN, 3 cm palpable mass, ultrasound- guided core needle biopsy: Alberto escalante MD on INVASIVE DUCTAL CARCINOMA OF BREAST, HISTOLOGIC GRADE 3, NUCLEAR GRADE 3 (HIGH- GRADE), WITH MICROPAPILLARY PATTERN, ADMIXED WITH LOW-GRADE TUBULAR PATTERN (SEE COMMENT). 11/25/2021 at 11:06 AM C: Lymph node(s), right, axi llary level 1, 1.7 cm, ultrasound-guided core needle biopsy: METASTATIC ADENOCARCINOMA WITHIN ONE LYMPH NODE (09/14). SEE C OMMENT D: Breast, left, left breast 2:00, 5 cm FN, 1.4 cm mass, ultrasound-guided core needle biopsy: Portion of the apocrine cyst with reparative changes (see co mment). Comment The invasive carcinoma at philip th sites A and B has two distinctive histologic patterns: invasive micropapillary that has high-grade and is adjacent to classic invasive tubular pattern that has low-grade. 11/25/2021 [facility] Both of these histologic pa tterns have identical receptor subtype as described below. The metastasis in the axillary node has tubular pattern. 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 CDT Immunohistochemical stains w ere performed on tissue sections from specimen A. The carcinoma strongly expresses GATA3 and mammaglobin, confirming the mammary origin. An immunostain for ERG highlights e ndothelial cells and did not demonstrate any evidence of lymphovascular invasion. Biomarker Results: Immunohistochemical staining is performed in our lab on repr esentative Paraffin-embedded section(s) Specimen Diagnosis: INVASIVE DUCTAL CARCINOMA Site: Right Breast Grade: N/A Block(s): A2 Biomarker(s): Estrogen Receptor: Antibody Clone: 6F11 (Leica) Positive = 11-100%, Low Positive = 1-10% Reference: Latasah et al. Arch Pathol Lab Med 2019 Results: Positive Percent Stainin % See comment Appropriate controls are present on the slide. Stain Intensity: Strong Progesterone Receptor: Antibody Clone: WI 16 (Leica) Positive = 10-100%, Low Positive = 1-9% Reference: Latasha et al. Arch Pathol Lab Med 2019 Results: Positive Percent Stainin % See comment Appropriate controls are present on the slide. Staining Intensity: Strong HER2: Antibody Clone: 4B5 (Donna Pathway) Positive cases are those wi th [...] Jose Francisco et al. J Clin Oncol 36:2105- 2018 Results: Negative Percent Staining: <1 % staining See comment Score: 0 See comment FISH Evaluation: NO, FISH will not be evaluated KI-67: Antibody Clone: MIB1 (DAKO) Low Positive = <17%, Moderate Positive= 17-35%, High Positi ve = >35% Results: Low (<17%) Percent Stainin [...] on alternative samples if appropriate. Reference Maldonado miller al. A ppl. Immunohistochem. Mol Morp 2005; 13; 283-286. If the specimen was not init ially processed at [facility], pre-analytical fixation times may be found in the accompanying pathology report. These assays have not been validated on decalcified tissues. Results should be interprete d with caution given the likelihood of false negativity on decalcified specimens. Gross A: 11/25/2021 [facility] Description Breast, right, right breast 10:00: 4 yellow-white fibrofatty tissue cores ranging from 1cm to 2 cm in length and 0.2 cm in diameter, entirely submitted in A1-A2 (2 cores each). ET 11:06 AM CDT B: Breast, right, right breast 11:00 : [...] (1 core). ET Disclaimer "Some tests reported 11/25/2021 [facility] here may have been 11:06 AM developed and CDT performance characteristics determined by [facility]. These tests have not been specifically cleared or approved by the U.S. Food and Drug Administration. If applicable, controls were reviewed and showed appropriate reactivity." Specimen Anatomical Collection Method Collection Time Receive d Time (Source) Location / / Volume Laterality Tissue (Breast, 11/20/2021 3:46 11/22/19 22 Left) PM DRYING UNIT FELTING MACHINE OPERATOR 1:13 PM DRYING UNIT FELTING MACHINE OPERATOR Tissue (Breast, 11/20/2021 3:39 11/22/19 22 Right) PM DRYING UNIT FELTING MACHINE OPERATOR 1:08 PM DRYING UNIT FELTING MACHINE OPERATOR Tissue (Breast, 11/20/2021 3:41 11/22/19 22 Right) PM DRYING UNIT FELTING MACHINE OPERATOR 1:08 PM DRYING UNIT FELTING MACHINE OPERATOR Tissue (Lymph 11/20/2021 5:30 11/21/2021 Node(s), Right, PM DRYING UNIT FELTING MACHINE OPERATOR 1:08 PM DRYING UNIT FELTING MACHINE OPERATOR Axillary Level I) Elliott OVERTON LAB PATHOLOGY ORDERABLES Performing Organization Address City/State/ZIP Code Phon e Number [facility], [place] [id number] [place] (ABNORMAL) Mammography Digital Diagnostic Bilateral with Joe (11/20/2021 1:50 PM DRYING UNIT FELTING MACHINE OPERATOR) Anatomical Region Laterality Modality Breast Bilateral Mammography Specimen (Source) Anatomical Collection Method Collection Time Re ceived Time Location / / Volume Laterality 11/20/2021 5:43 PM DRYING UNIT FELTING MACHINE OPERATOR Impressions 11/20/2021 5:43 PM DRYING UNIT FELTING MACHINE OPERATOR 1: Mass in the right breast upper [...] Incomplete: Needs Additional Imaging Meryl luation Narrative 11/20/2021 5:43 PM DRYING UNIT FELTING MACHINE OPERATOR CLINICAL INDICATION: Patient is a 81 year [...] and MLO pr ojections. Procedure Note Nupur Rosario DO - 11/20/2021 [...] 0: Incomplete: Needs Additional Imaging Meryl luation Elliott OVERTON IMG MAMMOGRAPHY ORDERABLES [facility] Mammo (11/01/2021 12:43 PM DRYING UNIT FELTING MACHINE OPERATOR) Specimen (Source) Anatomical Location Collection Method / Collectio n Time Received Time / Laterality Volume Narrative [facility] - 11/20/2021 12:43 PM DRYING UNIT FELTING MACHINE OPERATOR Study acquired at another institution. For comparison only. No MD Chin originated interpretation requested or a vailable. Mónica Joseph MD IMG OUTSIDE IMAGE ORDERABLES Performing Organization Address City/State/ZIP Code Phon e Number [facility] US Breast (11/01/2021 12:43 PM DRYING UNIT FELTING MACHINE OPERATOR) Specimen (Source) Anatomical Location Collection Method / Collectio n Time Received Time / Laterality Volume Narrative [facility] - 11/20/2021 12:43 PM DRYING UNIT FELTING MACHINE OPERATOR Study acquired at another institution. For comparison only. No MD Chin originated interpretation requested or a vailable. Mónica D. Joseph MD IMG OUTSIDE IMAGE ORDERABLES Performing Organization Address City/State/ZIP Code Phon e Number [facility] after 03/10/2021 Insurance Payer Benefit Plan / Subscriber ID Effective Dates Phone Addre ss Type Group AETNA MEDICARE AETNA MEDICARE [id number] 2021-Presen [address] [place] [address] Care Teams Senior Game Designer Relationship Specialty Start Date End Date Gonsalo Gracia PCP - External 01/03/16 MD Tony Referring [address] [place], [place] [phone] Gonsalo Gracia PCP - External Follow 01/03/16 MD Tony Up A [address] [facility] [place], [place] [phone] Mónica Joseph, PCP - General Gynecologic Medical 02/26/16 MD Oncology [address] [place] [id number] Shaan Kauffman MD PCP - External Follow Internal Medicine 04/16/[address] [place] [phone]
--- OUTSIDE RECORDS SUMMARY | 2022-03-10 13:04 | XMS REPORT | Continuity of Care Document ---
:1940 Author Organization [facility] t Address [address] [place] [address] Care Team Providers Name Role Phone CARDONA, Madelyn Primary Care Physician Unavailable SYSTEM, NOT IN Attending Clinician Unavailable Brittany AGUILLON Attending Clinician Jamila OVERTON Attending Clinician Elijah RAMIREZ Attending Clinician BRITTANY Attending Clinician Unavailable Eda Joseph MD Attending Clinician Eda JOSEPH Attending Clinician Unavailable Ally SMALLWOOD, Michael Attending Clinician Unavailable Lance RAMIREZ Attending Clinician Anni MCWILLIAMS Attending Clinician Unavailable Anni Wilks Attending Clinician Desire SMALLWOOD E Attending Clinician Unavailable Murali JACKSON Attending Clinician Jenny Palencia Attending Clinician JAMILA Attending Clinician Unavailable Dimitris DIAMOND Attending Clinician Unavailable ELIJAH Attending Clinician Unavailable Yolanda Lira MD Attending Clinician [phone] YOLANDA LIRA Attending Clinician Unavailable Dany OVERTON Attending Clinician DANY Attending Clinician Unavailable LATISHA Attending Clinician Unavailable Latisha RAMIREZ Attending Clinician Rachel SMALLWOOD, L Attending Clinician Payers Payer Name Policy Type Policy Number Effective Date Expiration Date S ource Problems Condition Condition Condition Status Onset Resolution Last Treating Co mments Source Name Details Category Date Date Treatment Clinician Date 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 [place] right [place] right 00 female female [place] breast breast n [facility] Essential Essential Disease Active Uni vers (primary) (primary) 8 [place] hypertens[place] [facility] Hyperlipid Hyperlipid Disease Active U nivers emia emia 04-16 ity of 00:00: [place] 00 MD [facility] Gastroesop Gastroesop Disease Active U nivluli hageal hageal 04-16 ity of reflux reflux 00:00: [place] disease disease 00 MD [facility] [place] History of History of Disease Active U nivers malignant malignant 8 ity of neoplasm neoplasm 00:00: [place] of of 00 endometriu endometriu An [facility] Malignant Malignant Disease Active Uni vers neoplasm neoplasm 5-04 ity of of of 00:00: [place] endometriu endometriu 00 MD christina [facility] Diabetes Diabetes Disease Active Unive rs mellitus mellitus 5-04 ity of 00:00: [place] 00 MD [facility] Allergies, Adverse Reactions, Alerts Allergy Allergy Status Severity Reaction(s) Onset Inactive Treating Comm ents Source Name Type Date Date Clinician Paclitax Propensi Active Facial Univer s el ty to 4-06 flushing, ity of adverse 00:00: feeling [place] reaction 00 hot, MD [place] throat Andraul "scratchy n " [facility] NO KNOWN Drug Active Univers ALLERGIE Class ity of [facility] [place] [facility] Family History Family Member Diagnosis Comments Start Date Stop Date Source Cousin -Gynecology (Ovary, Unive [facility] Endometrial, Cervix, MD Michael lopez Cancer Vagina) Center Paternal aunt -Gastrointestinal Univ [facility] (Esophagus, Liver, And erson Cancer Bile Duct, Stomach, Cente r Pancreas, Colon, Rectum, Anus Social History Social Habit Start Date Stop Date Quantity Comments Source Exposure to 2022-02-22 2022-03-04 [facility] sure [facility] 12:05:00 [facility] navarro (event[facility] Alcohol intake 2021-12-16 2021-12-16 Current University of 00:00:00 00:00:00 non-drinker of [facility]a lopez alcohol (finding) [facility] Tobacco use and 2016-01-16 2016-01-16 Smokeless tobacco Un iversity of exposure 00:00:00 00:00:00 non-user [facility] Sex Assigned At [birth year] Universit y of 00:00:00 00:00:00 [facility] navarro [facility] Smoking Status Start Date Stop Date Source Never smoked tobacco [facility] Medications Ordered Filled Start Stop Current Ordering Indication Dosage Frequency Signature Comments Components Source Medication Medication Date Date Medication? Clinician (SIG) Name Name sitaGLIPtin Yes 100mg Take 100 U nivers (JANUVIA) 5-31 mg by ity of 100 mg 14:10: mouth [place] tablet 27 daily. MD [facility] aspirin 81 Yes 81mg Take 81 mg U nivers mg EC 5-31 by mouth ity of tablet 14:10: daily. [place] [id number] MD [facility] folic acid Yes 1mg Take 1 mg Un telly (FOLVITE) 1 5-31 by mouth. ity of mg tablet 14:10: [place] [address] MD [facility] ondansetron Yes Infiltratin 8mg Take 1 Univers (ZOFRAN) 8 3-25 g duct tablet (8 it y of mg tablet 00:00: carcinoma mg) by [place] 00 of right mouth female every 8 Anderso breast (eight) n hours as Cancer needed for Center nausea. prochlorper Yes Infiltratin 10mg Take 1 Univers azine 3-25 g duct tablet (10 ity of (COMPAZINE) 00:00: carcinoma mg) by [place] 10 mg 00 of right mouth tablet female every 6 Anderso breast (six) n hours as Cancer needed for Center nausea. aspirin 325 2020- No peripheral 325mg Take 325 Univers mg tablet 3-17 08-16 arterial mg by ity of 20:25: 00:00 thromboembo mouth 2 [place]00 billie (two) prevention times a [place] o day as n needed. Cancer Center clopidogrel Yes 1{tbl} Take 1 Un telly (PLAVIX) 75 7-12 tablet by ity of mg tablet 00:00: mouth [place] 00 [facility]. [facility] atorvastati Yes 1{tbl} Take 1 Un telly n (LIPITOR) 7-05 tablet by ity of 80 mg 00:00: mouth [place] tablet 00 daily. MD [facility] ranitidine No 1{tbl} Take 1 Un telly (ZANTAC) 4-25 03-25 tablet by ity o f 150 mg 00:00: 00:00 mouth [place] tablet 00 :00 daily. MD [facility] metoprolol Yes 1{tbl} Take 1 Uni vers tartrate 3-31 tablet by ity of (LOPRESSOR) 00:00: mouth [place] 25 mg 00 twice MD tablet daily. [facility] metFORMIN Yes 1{tbl} Take 1 Univ ers (GLUCOPHAGE 3-04 tablet by ity of ) 500 mg 00:00: mouth [place] tablet 00 twice MD daily. [facility] Immunizations Ordered Filled Immunization Date Status Comments [facility] e Immunization Name Name [facility] SARS-CoV-2 2021-07-15 Completed Univer sity of Vaccination 00:00:00 [facility] 2021-01-14 Completed Univer sity of Vaccination 00:00:00 [facility] SARS-[facility]-2 2020-12-17 Completed Univer sity of Vaccination 00:00:00 [facility] Vital Signs Vital Name Observation Time Observation Value Comments Source WEIGHT 2020-04-16 11:56:44 89.8 kg Systolic blood 2022-03-04 20:32:00 126 mm[Hg] Univer sity of pressure Humaira Go [facility] Diastolic blood 2022-03-04 20:32:00 78 mm[Hg] Unive rsity of pressure [facility]aira Go on [facility] Heart rate 2022-03-04 20:32:00 84 /min Universi ty of [place] MD Go on [facility] Respiratory rate 2022-03-04 20:32:00 18 /min [facility] on [facility] Body temperature 2022-03-04 18:54:36 36.72 Mayelin [facility] Go on [facility] Body weight 2022-03-04 18:54:36 83.1 kg Universi ty of [place] MD Go on [facility] BMI 2022-03-04 18:54:36 32.26 kg/m2 Universi ty of [place] MD Go on [facility] Oxygen saturation in 2022-03-04 18:54:36 96 /min University Arterial blood by Humaira lopez Pulse oximetry Cancer Center Body height 2021-12-18 16:14:00 160.5 cm Universi ty of [place] MD Go on [facility] Procedures Procedure Date / Time Performing Clinician Source Performed COMPLETE BLOOD COUNT W/ 2022-03-04 17:14:19 Rozina Boyce [facility] DIFFERENTIAL [facility] er Center Results CBC 2022-03-04 17:14:19 Rozina Boyce [place] [facility] er Center MANUAL DIFFERENTIAL 2022-03-04 17:14:19 [facility] Center COMPLETE BLOOD COUNT W/ 2022-02-25 15:41:00 Rozina Boyce [facility] DIFFERENTIAL [facility] er Center Results CBC 2022-02-25 15:41:00 Rozina Boyce [place] [facility] er Center MANUAL DIFFERENTIAL 2022-02-25 15:41:00 [facility] er Center COMPLETE BLOOD COUNT W/ 2022-02-18 17:43:41 Rozina Boyce [facility] DIFFERENTIAL [facility] er Center ASPARTATE AMINOTRANSFERASE 2022-02-18 17:43:41 [facility] ALANINE AMINOTRANSFERASE 2022-02-18 17:43:41 [facility]ozina [facility] Center ALKALINE PHOSPHATASE 2022-02-18 17:43:41 Rozina Boyce ity of [facility] er Center BILIRUBIN TOTAL 2022-02-18 17:43:41 Rozina Boyce o f [facility] er Center Results CBC 2022-02-18 17:43:41 Rozina Boyce o f [facility] er Center MANUAL DIFFERENTIAL 2022-02-18 17:43:41 Rozina Boyce Universi ty of [facility] er Center COMPLETE BLOOD COUNT W/ 2022-02-11 18:11:00 Rozina Boyce [facility] ersity of [place] DIFFERENTIAL [facility] er Center ASPARTATE AMINOTRANSFERASE 2022-02-11 18:11:00 Rozina Boyce U niversity of [facility] er Center ALANINE AMINOTRANSFERASE 2022-02-11 18:11:00 Rozina Boyce Uni versity of [facility] er Center ALKALINE PHOSPHATASE 2022-02-11 18:11:00 Rozina Boyce [facility] ity of [facility] er Center BILIRUBIN TOTAL 2022-02-11 18:11:00 Rozina Boyce o f [facility] C[facility] er Center Results CBC 2022-02-11 18:11:00 Rozina Boyce [place] [facility] er Center MANUAL DIFFERENTIAL 2022-02-11 18:11:00 Rozina Boyce Universi ty of [facility] er Center COMPLETE BLOOD COUNT W/ 2022-02-04 17:39:16 Rozina Boyce [facility] ersity of [place] DIFFERENTIAL [facility] Can er Center Results CBC 2022-02-04 17:39:16 Rozina Boyce o [facility] Canc er Center MANUAL DIFFERENTIAL 2022-02-04 17:39:16 Rozina Boyce Universi ty of [facility] er Center COMPLETE BLOOD COUNT W/ 2022-01-29 15:39:02 Rozina Boyce [facility] ersity of [place] DIFFERENTIAL [facility] er Center Results CBC 2022-01-29 15:39:02 Rozina Boyce o f [facility] C[facility] er Center MANUAL DIFFERENTIAL 2022-01-29 15:39:02 Rozina Boyce Universi ty of [facility] er Center COMPLETE BLOOD COUNT W/ 2022-01-23 16:27:34 Rozina Boyce ersity of [place] DIFFERENTIAL MD [facility] Results CBC 2022-01-23 16:27:34 Rozina Boyce o f [facility] C[facility] er Center MANUAL DIFFERENTIAL 2022-01-23 16:27:34 Rozina Boyce [facility] ty of [facility] Canc er Center ECHOCARDIOGRAM 2D COMPLETE 2022-01-17 19:15:31 [facility] [place] [facility] er Center COMPLETE BLOOD COUNT W/ 2022-01-15 15:34:20 Rozina Boyce [facility] ersity of [place] DIFFERENTIAL MD [facility] C[facility] er Center Results CBC 2022-01-15 15:34:20 Rozina Boyce [place] [facility] Canc er Center MANUAL DIFFERENTIAL 2022-01-15 15:34:20 Rozina Boyce [facility] ty of [facility] C[facility] er Center COMPLETE BLOOD COUNT W/ 2022-01-08 13:42:19 Rozina Boyce [facility] ersity of [place] DIFFERENTIAL MD [facility] C[facility] er Center Results CBC 2022-01-08 13:42:19 Rozina Boyce [facility] C[facility] er Center MANUAL DIFFERENTIAL 2022-01-08 13:42:19 Rozina Boyce [facility] ty of [facility] Canc er Center COMPLETE BLOOD COUNT W/ 2022-01-01 17:33:14 [facility] [place] DIFFERENTIAL MD [facility] C[facility] er Center Results CBC 2022-01-01 17:33:[address] [facility] Canc er Center MANUAL DIFFERENTIAL 2022-01-01 17:33:14 Rozina Boyce [facility] ty of [facility] Canc er Center COMPLETE BLOOD COUNT W/ 2021-12-25 17:14:01 Rozina Boyce [facility] ersity of [place] DIFFERENTIAL MD [facility] C[facility] er Center Results CBC 2021-12-25 17:14:01 Rozina Boyce [facility] C[facility] er Center MANUAL DIFFERENTIAL 2021-12-25 17:14:01 [facility] C[facility] er Center COMPLETE BLOOD COUNT W/ 2021-12-18 14:42:00 Rozina Boyce [facility] ersity of [place] DIFFERENTIAL [facility] Center ASPARTATE AMINOTRANSFERASE 2021-12-18 14:42:00 [facility] ALANINE AMINOTRANSFERASE 2021-12-18 14:42:00 [facility]ozina [facility] ALKALINE PHOSPHATASE 2021-12-18 14:42:00 Rozina Boyce [facility] Center BILIRUBIN TOTAL 2021-12-18 14:42:00 Rozina Boyce [place] [facility] er Center Results CBC 2021-12-18 14:42:00 Rozina Boyce [place] [facility] er Center MANUAL DIFFERENTIAL 2021-12-18 14:42:00 [facility]ACEMENT 2021-12-16 22:58:21 Rozina Boyce [facility] POC GLUCOSE SCREEN 2021-12-16 20:23:00 Sabas Mcwilliams [facility] Center COMPLETE BLOOD COUNT W/ 2021-12-16 17:41:00 Sabas Mcwilliams [facility] CARBON DIOXIDE LEVEL 2021-12-16 17:41:[address] [facility] Center CHLORIDE LEVEL 2021-12-16 17:41:[address] [facility] Center SODIUM LEVEL 2021-12-16 17:41:[address] [facility] Center POTASSIUM LEVEL 2021-12-16 17:41:[address] [facility] Center SERUM CREATININE 2021-12-16 17:41:00 [facility] BLOOD UREA NITROGEN 2021-12-16 17:41:00 Sabas Mcwilliams [facility] GLUCOSE, RANDOM 2021-12-16 17:41:00 Sabas Mcwilliams [facility] er Center TYPE AND SCREEN 2021-12-16 17:41:00 Sabas Mcwilliams [facility] Results CBC 2021-12-16 17:41:00 Sabas Mcwilliams [facility] SERUM CREATININE 2021-12-16 17:41:00 Sabas Mcwilliams [facility] .GLOMERULAR FILTRATION 2021-12-16 17:41:[address] Sabas [address]williams [facility] 2021-12-16 17:41:00 Sabas Mcwilliams [facility] ANTIBODY SCREEN 2021-12-16 17:41:00 Sabas Mcwilliams [facility] MANUAL DIFFERENTIAL 2021-12-16 17:41:00 Sabas Mcwilliams [facility] ANION GAP 2021-12-16 17:41:00 Sabas Mcwilliams [facility] CLOT EXPIRATION DATE 2021-12-16 17:41:00 Sabas Mcwilliams [facility] TMP INTERPRETATION 2021-12-16 17:41:00 Sabas Mcwilliams [facility] ANTIBODY SCREEN NEGATIVE MD [facility] CONFIRM ABORH TYPE 2021-12-16 17:40:00 Sabas Mcwilliams [facility] PROTHROMBIN TIME 2021-12-16 17:33:00 Sabas Mcwilliams [facility] EKG, 12-LEAD (SCHEDULED) 2021-12-16 00:00:00 [facility] POST PROCEDURE RIGHT 2021-12-13 16:41:46 Jamila [facility] US BREAST FINE NEEDLE 2021-12-13 16:34:54 Dayana Marino [facility] ASPIRATION - RIGHT [facility] [place] US GUIDED BREAST CLIP 2021-12-13 16:34:54 Dayana Marino [facility] PLACEMENT RIGHT [facility] CYTOLOGY IMAGE-GUIDED FNA 2021-12-13 14:56:00 Jamila, [facility] INTERPRETATION [facility] CYTOLOGY IMAGE-GUIDED FNA 2021-12-13 14:54:00 Jamila, [facility] INTER[facility]TATION [facility] CT CHEST ABDOMEN PELVIS W 2021-12-06 18:17:25 Jamila, [facility] WO CONTRAST [facility] POC CREATININE 2021-12-06 16:46:00 Jamila, [facility] NM BONE SCAN WHOLE BODY 2021-12-06 15:56:00 Jamila, Uni [facility] MAMMO POST PROCEDURE 2021-11-20 23:56:32 Elliott Saenz [facility] BILATERAL [facility] US BREAST COMPLETE 2021-11-20 23:47:00 Elloitt Saenz [facility] BILATERAL [facility] US CHEST 2021-11-20 23:47:00 Elliott Saenz [place] [facility] US HEAD NECK SOFT TISSUE 2021-11-20 23:47:00 Elliott Saenz Uni [facility] US GUIDED BREAST BIOPSY 2021-11-20 23:47:00 Elliott Saenz [facility] RIGHT [facility] US GUIDED INFRACLAVICULAR 2021-11-20 23:47:00 Elliott [facility] LYMPH NODE FNA - RIGHT [facility] US GUIDED BREAST BIOPSY 2021-11-20 23:47:00 Elliott Saenz [facility] LEFT [facility] US GUIDED AXILLARY LYMPH 2021-11-20 23:47:00 Elliott Saenz Uni [facility] NODE FNA LEFT [facility] CYTOLOGY IMAGE-GUIDED FNA 2021-11-20 21:48:[address] [facility] INTERPRETATION [facility] PATHOLOGY BIOPSY 2021-11-20 21:46:00 Elliott Saenz [facility] INTERPRETATION [facility] CYTOLOGY IMAGE-GUIDED FNA 2021-11-20 21:44:00 Elliott Saenz [facility] INTERPRET[facility] PATHOLOGY BIOPSY 2021-11-20 21:39:00 Elliott Saenz [facility] INTERPRETATION [facility] MAMMO DIGITAL DIAGNOSTIC 2021-11-20 19:50:00 Elliott Saenz [facility] [place] BIL[facility]AL [place] [facility] OSI US BREAST 2021-11-01 18:43:00 Fausto Joseph [facility] er Center OSI MAMMO BILATERAL 2021-11-01 18:43:00 Fausto Joseph [facility] Plan of Care Planned Activity Planned Date Details Comments Source Future Scheduled 2022-03-07 COVID-19 Vaccination [facility] Test 07:36:25 (4 - Booster for [facility] Cancer Moderna series) [code Center = COVID-19 Vaccination (4 - Booster for Moderna series)] Encounters Start End Encounter Admission Attending Care Care Encounter Source Date/Time Date/Time Type Type Clinicians Facility Department ID 2021-11-20 Outpatient SYSTEM, [facility] [id number] 13:33:08 PROVIDER Donavan atkins 2022-03-04 2022-03-04 Infusion Rozina Boyce 1.2.840.1 [id number] Univers 13:00:00 15:00:00 27968.1.1 ity of 3.412.2.7 [place] .3.997660 MD Squires [facility] 2022-03-04 2022-03-04 Orders Ede 1.2.840.1 [id number] Univers 00:00:00 00:00:00 Only Amira tavarez 88101.1.1 ity of 3.412.2.7 [place] .3.831255 MD Squires [facility] 2022-03-04 2022-03-04 Travel 1.2.840.1 1.2.485.377 [id number] Univers 00:00:00 00:00:00 57016.1.1 350.1.13.41 ity of 3.412.2.7 2.[place].7.3.698 [place] .3.650690 084.8 MD Squires [facility] 2022-03-03 2022-03-03 Orders Munroe-Marisol 1.2.840.1 [id number] Univers 00:00:00 00:00:00 Only shay Amira 76050.1.1 ity of 3.412.2.7 [place] .3.262952 MD Zuñiga8 [facility] 2022-03-03 2022-03-03 Orders Munroe-Marisol 1.2.840.1 [id number] [facility] 00:00:00 00:00:00 Only shay, Amira 92920.1.1 ity of 3.412.2.7 [place] .3.896206 MD Squires [facility] 2022-02-25 2022-02-25 Infusion Rozina Boyce 1.2.840.1 [id number] Univers 10:45:00 15:56:41 50696.1.1 ity of 3.412.2.7 [place] .3.018491 MD Squires [facility] 2022-02-25 2022-02-25 Travel 1.2.840.1 1.2.811.364 [id number] [facility] 00:00:00 00:00:00 06968.1.1 350.1.13.41 ity of 3.412.2.7 2.2.7.3.698 [place] .3.946570 084.8 MD Squires [facility] 2022-02-24 2022-02-24 Orders Munroe-Marisol 1.2.840.1 [id number] Univers 00:00:00 00:00:00 Only shay, Amira 42970.1.1 ity of 3.412.2.7 [place] .3.620325 MD Squires [facility] 2022-02-18 2022-02-18 Infusion Rozina Boyce 1.2.840.1 [id number] Univers 10:15:00 17:25:37 37883.1.1 ity of 3.412.2.7 [place] .3.512222 MD Squires [facility] 2022-02-18 2022-02-18 Rozina Hernandez 1.2.840.1 [id number] Univers 00:00:00 00:00:00 Only 25275.1.1 ity of 3.412.2.7 [place] .3.095063 MD Squires [facility] 2022-02-18 2022-02-18 Travel 1.2.840.1 1.2.213.186 [id number] Univers 00:00:00 00:00:00 20335.1.1 350.1.13.41 ity of 3.412.2.7 2.2.7.3.698 [place] .3.013289 084Shaw Squires [facility] 2022-02-18 2022-02-18 [facility] 1.2.840.1 [id number] Univers 00:00:00 00:00:00 Only , Nuzhat 61656.1.1 ity of 3.412.2.7 [place] .3.779142 MD Squires [facility] 2022-02-11 2022-02-11 [facility] Chrystal-eme 1.2.840.1 [id number] Univers 14:30:00 14:30:00 Visit , Nuzhat 01248.1.1 ity of 3.412.2.7 [place] .3.975790 MD Squires [facility] 2022-02-11 2022-02-11 Travel 1.2.840.1 1.2.832.629 [id number] Univers 00:00:00 00:00:00 18589.1.1 350.1.13.41 ity of 3.412.2.7 2.2.7.3.698 [place] .3.086426 08Franny Squires [facility] 2022-02-04 2022-02-04 Ventura Orozcoisti 1.2.840.1 [id number] Univers 13:45:00 16:11:13 40505.1.1 ity of 3.412.2.7 [place] .3.947244 MD Squires [facility] 2022-02-04 2022-02-04 Travel 1.2.840.1 1.2.753.568 [id number] Univers 00:00:00 00:00:00 66428.1.1 350.1.13.41 ity of 3.412.2.7 2.2.7.3.698 [place] .3.937931 084.8 MD Squires [facility] 2022-01-29 2022-01-29 Infusion Rozina Boyce 1.2.840.1 [id number] Univers 11:15:00 15:44:58 44767.1.1 ity of 3.412.2.7 [place] .3.630463 MD Squires [facility] 2022-01-29 2022-01-29 Travel 1.2.840.1 1.2.023.721 [id number] Univers 00:00:00 00:00:00 68364.1.1 350.1.13.41 ity of 3.412.2.7 2.2.7.3.698 [place] .3.019219 084Yogesh8 MD Squires [facility] 2022-01-23 2022-01-23 Infusion Rozina Boyce 1.2.840.1 [id number] Univers 11:30:00 16:44:59 62416.1.1 ity of 3.412.2.7 [place] .3.409233 MD Squires [facility] 2022-01-23 2022-01-23 Orders Rozina Boyce 1.2.840.1 [id number] Univers 00:00:00 00:00:00 Only 07783.1.1 ity of 3.412.2.7 [place] .3.453069 MD Squires [facility] 2022-01-23 2022-01-23 Travel 1.2.840.1 1.2.451.974 [id number] Univers 00:00:00 00:00:00 25945.1.1 350.1.13.41 ity of 3.412.2.7 2.2.7.3.698 [place] .3.302630 084.8 MD Zuñiga8 [facility] 2022-01-22 2022-01-22 Orders Rozina Boyce 1.2.840.1 [id number] Univers 00:00:00 00:00:00 Only 91731.1.1 ity of 3.412.2.7 [place] .3.948694 MD Squires [facility] 2022-01-17 2022-01-17 [facility] Rozina Boyce 1.2.840.1 [id number] 1 [id number] Univers 13:00:00 23:59:00 Encounter 95829.1.1 it y of 3.412.2.7 [place] .3.492863 MD Zuñiga8 [facility] 2022-01-17 2022-01-17 Travel 1.2.840.1 1.2.655.016 0897 [id number] Univers 00:00:00 00:00:00 76736.1.1 350.1.13.41 ity of 3.412.2.7 [place].3.698 [place] .3.184883 084.8 MD Zuñiga8 [facility] 2022-01-15 2022-01-15 [facility] Rozina Boyce 1.2.840.1 [id number] 1 [id number] Univers 13:00:00 16:18:09 45337.1.1 ity of 3.412.2.7 [place] .3.231607 MD Squires [facility] 2022-01-15 2022-01-15 Telemedici Chrystal-Iheme 1.2.840.1 [id number] Univers 11:30:00 11:56:36 Nuzhat burns 46541.1.1 ity of 3.412.2.7 [place] .3.356092 .8 [facility] 2022-01-15 2022-01-15 Travel 1.2.840.1 1.2.980.330 5445 [id number] Univers 00:00:00 00:00:00 28078.1.1 350.1.13.41 ity of 3.412.2.7 [place].3.698 [place] .3.617643 084.8 MD Zuñiga8 [facility] 2022-01-14 2022-01-14 Orders [facility] 1.2.840.1 [id number] 10 [id number] Univers 00:00:00 00:00:00 Only , Nuzhat 43625.1.1 ity of 3.412.2.7 [place] .3.306534 MD Squires [facility] 2022-01-08 2022-01-08 Infusion Rozina Boyce 1.2.840.1 [id number] 1 [id number] [facility] 10:30:00 16:10:48 65198.1.1 ity of 3.412.2.7 [place] .3.324296 MD Squires [facility] 2022-01-08 2022-01-08 Outpatient ROZINA MARES [facility] MDA [id number] 09:14:03 16:10:[address] [facility] 2022-01-08 2022-01-08 Outpatient ROZINA MARES [facility] MDA [id number] 08:29:14 08:33:53 [facility] 2022-01-08 2022-01-08 Travel 1.2.840.1 1.2.057.295 [id number] [facility] 00:00:00 00:00:00 48446.1.1 350.1.13.41 ity of 3.412.2.7 [place].3.698 [place] .3.782806 084.8 MD Squires [facility] 2022-01-02 2022-01-02 Ancillary Esa 1.2.840.1 [id number] Univers 23:10:00 23:15:00 Procedure Fausto Veras 84202.1.1 ity of 3.412.2.7 [place] .3.838131 .8 [facility] 2022-01-02 2022-01-02 Ancillary Joseph, 1.2.840.1 [id number] [id number] Univers 23:05:00 23:10:00 Procedure Fausto Veras 47600.1.1 ity of 3.412.2.7 [place] .3.060484 .8 [facility] 2022-01-02 2022-01-02 Ancillary Joseph, 1.2.840.1 [id number] [id number] Univers 23:00:00 23:05:00 Procedure Fausto Veras 13153.1.1 ity of 3.412.2.7 [place] .3.920240 .8 [facility] 2022-01-02 2022-01-02 Outpatient EL JOSEPH, MDA MDA [id number] 23:04:13 23:04:13 FAUSTO atkins 2022-01-02 2022-01-02 Outpatient EL JOSEPH, MDA MDA [id number] 23:04:13 23:04:13 FAUSTO atkins 2022-01-02 2022-01-02 Outpatient EL JOSEPH, MDA MDA [id number] 23:04:12 23:04:12 FAUSTO atkins 2022-01-02 2022-01-02 Outpatient EL JOSEPH, MDA MDA [id number] 23:04:11 23:04:11 FAUSTO atkins 2022-01-02 2022-01-02 Outpatient EL JOSEPH, MDA MDA [id number] 23:04:10 23:04:10 FAUSTO atkins 2022-01-02 2022-01-02 Outpatient EL JOSEPH, MDA MDA [id number] 23:04:09 23:04:09 FAUSTO atkins 2022-01-02 2022-01-02 Outpatient EL JOSEPH, MDA MDA [id number] 23:04:09 23:04:09 FAUSTO atkins 2022-01-02 2022-01-02 Outpatient EL JOSEPH, MDA MDA [id number] 23:04:08 23:04:08 FAUSTO Donavan vimal atkins 2022-01-02 2022-01-02 Outpatient MJ JOSEPH [facility] MDA [id number] 23:04:07 23:04:07 FAUSTO Donavanluli atkins 2022-01-02 2022-01-02 Ancillary Esa, 1.2.840.1 [id number] Univers 22:55:00 23:00:00 Procedure Fausto Veras 19122.1.1 ity of 3.412.2.7 [place] .3.193876 .8 [facility] 2022-01-02 2022-01-02 Ancillary Esa, 1.2.840.1 [id number] Univers 22:50:00 22:55:00 Procedure Fausto Veras 83736.1.1 ity of 3.412.2.7 [place] .3.432238 .8 [facility] 2022-01-02 2022-01-02 Ancillary Esa, 1.2.840.1 [id number] Univers 22:45:00 22:50:00 Procedure Fausto Veras 53895.1.1 ity of 3.412.2.7 [place] .3.094039 .8 [facility] 2022-01-02 2022-01-02 Ancillary Esa, 1.2.840.1 [id number] Univers 22:40:00 22:45:00 Procedure Fausto Veras 46169.1.1 ity of 3.412.2.7 [place] .3.600583 .8 [facility] 2022-01-02 2022-01-02 Ancillary Esa, 1.2.840.1 [id number] [id number] Univers 22:35:00 22:40:00 Procedure Fausto Veras 99716.1.1 ity of 3.412.2.7 [place] .3.768243 .8 [facility] 2022-01-02 2022-01-02 Ancillary Esa, 1.2.840.1 [id number] Univers 22:30:00 22:35:00 Procedure Fausto Veras 43173.1.1 ity of 3.412.2.7 [place] .3.145548 MD Zuñiga8 [facility] 2022-01-01 2022-01-01 Infusion Rozina Boyce 1.2.840.1 [id number] Univers 13:15:00 15:15:00 72506.1.1 ity of 3.412.2.7 [place] .3.749917 MD Zuñiga8 [facility] 2022-01-01 2022-01-01 Outpatient ROZINA MARES [facility] [id number] 12:16:58 12:26:08 [facility] 2022-01-01 2022-01-01 Emergency [facility] [id number] Univers 11:49:14 11:50:00 ity of [facility] 2022-01-01 2022-01-01 Outpatient ROZINA MARES [facility] [id number] 00:00:00 00:00:00 [facility] 2022-01-01 2022-01-01 Orders Rzoina Boyce 1.2.840.1 [id number] Univers 00:00:00 00:00:00 Only 04297.1.1 ity of 3.412.2.7 [place] .3.775410 MD Squires [facility] 2022-01-01 2022-01-01 Orders Ede 1.2.840.1 [id number] 10 [id number] Univers 00:00:00 00:00:00 Only Amira tavarez 27842.1.1 ity of 3.412.2.7 [place] .3.669683 MD Zuñiga8 [facility] 2022-01-01 2022-01-01 Travel 1.2.840.1 1.2.467.082 6568 [id number] Univers 00:00:00 00:00:00 93641.1.1 350.1.13.41 ity of 3.412.2.7 [place]7.3.698 [place] .3.116716 084.Rubia Zuñiga8 [facility] 2021-12-31 2021-12-31 Orders Chrystal-Iheme 1.2.840.1 [id number] Univers 00:00:00 00:00:00 Only , Nuzhat 23872.1.1 ity of 3.412.2.7 [place] .3.642067 MD Squires [facility] 2021-12-31 2021-12-31 Rozina Hernandez 1.2.840.1 [id number] 10 [id number] Univers 00:00:00 00:00:00 Only 59586.1.1 ity of 3.412.2.7 [place] .3.095124 MD Squires [facility] 2021-12-25 2021-12-25 Rozina Orozco 1.2.840.1 [id number] 1 [id number] Univers 13:15:00 16:24:19 83766.1.1 ity of 3.412.2.7 [place] .3.973069 MD Squires [facility] 2021-12-25 2021-12-25 Outpatient ROZINA MARES [facility] MDA [id number] 12:17:18 16:24:19 [facility] 2021-12-25 2021-12-25 Outpatient ROZINA MARES [facility] MDA [id number] 12:08:34 12:09:28 [facility] 2021-12-25 2021-12-25 Travel 1.2.840.1 1.2.569.191 [id number] Univers 00:00:00 00:00:00 83737.1.1 350.1.13.41 ity of 3.412.2.7 2.[place]7.3.698 [place] .3.244001 084.8 MD Squires [facility] 2021-12-20 2021-12-20 Telephone Ally 1.2.840.1 [id number] Univers 00:00:00 00:00:00 Alice Rodriguez 46742.1.1 ity of 3.412.2.7 [place] .3.025354 MD Squires [facility] 2021-12-19 2021-12-19 Orders Chrystal-Iheme 1.2.840.1 [id number] 10 [id number] Univers 00:00:00 00:00:00 Only , Nuzhat 25177.1.1 ity of 3.412.2.7 [place] .3.239956 MD Squires [facility] 2021-12-19 2021-12-19 Rozina Hernandez 1.2.840.1 [id number] 10 [id number] Univers 00:00:00 00:00:00 Only 88576.1.1 ity of 3.412.2.7 [place] .3.934659 MD Squires [facility] 2021-12-18 2021-12-18 Rozina Orozco 1.2.840.1 [id number] 1 [id number] [facility] 10:30:00 16:44:47 48945.1.1 ity of 3.412.2.7 [place] .3.076038 MD Squires [facility] 2021-12-18 2021-12-18 Outpatient ROZINA MARES [facility] [id number] 09:55:33 16:44:47 [facility] 2021-12-18 2021-12-18 Outpatient ROZINA MARES [facility] [id number] 09:42:04 09:45:52 [facility] 2021-12-18 2021-12-18 Rozina Hernandez 1.2.840.1 [id number] [facility] 00:00:00 00:00:00 Only 83060.1.1 ity of 3.412.2.7 [place] .3.477021 MD Squires [facility] 2021-12-18 2021-12-18 Travel 1.2.840.1 1.2.318.961 [id number] Univers 00:00:00 00:00:00 51857.1.1 350.1.13.41 ity of 3.412.2.7 [place].7.3.698 [place] .3.037747 084.8 MD Squires [facility] 2021-12-16 2021-12-16 [facility] Rozina Boyce 1.2.840.1 [id number] Univers 13:30:00 23:59:00 Encounter LanceFelipey 65934.1.1 ity of 3.412.2.7 [place] .3.191813 MD Zuñiga8 [facility] 2021-12-16 2021-12-16 Outpatient ROZINA MARES [facility] MDA [id number] 13:30:00 23:59:00 Donavan atkins 2021-12-16 2021-12-16 Outpatient MJ MCWILLIAMS [facility] MDA [id number] 14:30:36 14:38:20 SABAS atkins 2021-12-16 2021-12-16 [facility] Abby, 1.2.840.1 [id number] Univers 12:00:00 13:29:00 Encounter Sabas Hutton 00395.1.1 i ty of 3.412.2.7 [place] .3.621463 MD Zuñiga8 [facility] 2021-12-16 2021-12-16 Outpatient MJ ABBY [facility] [id number] 12:00:00 13:29:00 SABAS atkins 2021-12-16 2021-12-16 Documentat Desire, 1.2.840.1 [id number] Univers 00:00:00 00:00:00 cortes Alvarado 98794.1.1 ity of 3.412.2.7 [place] .3.303157 MD Zuñiga8 [facility] 2021-12-16 2021-12-16 Travel 1.2.840.1 1.2.231.554 2465 [id number] Univers 00:00:00 00:00:00 24799.1.1 350.1.13.41 ity of 3.412.2.7 [place].3.698 [place] .3.885276 084.8 MD Squires [facility] 2021-12-16 2021-12-16 Jaxson Mera 1.2.840.1 [id number] 10 [id number] [facility] 00:00:00 00:00:00 Only Amira tavarez 58582.1.1 ity of 3.412.2.7 [place] .3.698185 MD Squires [facility] 2021-12-16 2021-12-16 Orders Ede 1.2.840.1 [id number] 10 [id number] Univers 00:00:00 00:00:00 Only Amira tavarez 52858.1.1 ity of 3.412.2.7 [place] .3.726434 MD Zuñiga8 [facility] 2021-12-16 2021-12-16 Orders Murali 1.2.840.1 [id number] [facility] 00:00:00 00:00:00 Only Scott 45594.1.1 ity of 3.412.2.7 [place] .3.256730 MD Squires [facility] 2021-12-13 2021-12-13 [facility] Fausto Joseph 1.2.840.1 [id number] Univers 15:00:00 23:59:00 Encounter Veronica Mckeon 42193.1.1 ity of 3.412.2.7 [place] .3.285577 MD Squires [facility] 2021-12-13 2021-12-13 Outpatient ESA [facility] [id number] 15:00:00 23:59:00 FAUSTO atkins 2021-12-13 2021-12-13 Ancillary 1.2.840.1 [id number] Univers 11:30:00 11:45:00 Procedure 88410.1.1 it y of 3.412.2.7 [place] .3.804500 MD Squires [facility] 2021-12-13 2021-12-13 Ancillary Ede 1.2.840.1 [id number] Univers 09:45:00 11:30:00 Procedure Amira tavarez 64889.1.1 ity of 3.412.2.7 [place] .3.768525 MD Squires [facility] 2021-12-13 2021-12-13 Outpatient MDA MDA [id number] 11:26:54 11:26:54 [facility] n 2021-12-13 2021-12-13 Outpatient [facility] MDA [id number] 09:28:41 09:28:41 AMIRA TAVAREZ 2021-12-13 2021-12-[address] [facility] 1.2.840.1 1.2.747.380 [id number] [facility] 00:00:00 00:00:00 24397.1.1 350.1.13.41 ity of 3.412.2.7 [place]7.3.698 [place] .3.923487 084.8 .8 [facility] 2021-12-11 2021-12-11 Orders Abby, 1.2.840.1 [id number] Univers 00:00:00 00:00:00 Only Sabas uHtton 50259.1.1 ity of 3.412.2.7 [place] .3.026293 MD Zuñiga8 [facility] 2021-12-10 2021-12-10 Telephone Shanks, 1.2.840.1 [id number] Univers 00:00:00 00:00:00 Tiana 02201.1.1 ity of 3.412.2.7 [place] .3.128697 MD Zuñiga8 [facility] 2021-12-06 2021-12-06 [facility] 1.2.840.1 [id number] 1 [id number] [facility] 11:05:00 23:59:00 Encounter Amira tavarez 10627.1.1 ity of 3.412.2.7 [place] .3.379358 MD Zuñiga8 [facility] 2021-12-06 2021-12-06 Outpatient [facility] MDA MDA [id number] 11:05:00 23:59:00 AMIRA TAVAREZ 2021-12-06 2021-12-06 Outpatient [facility] MDA MDA [id number] 14:49:42 16:01:44 , NUZHAT Phillips so 2021-12-06 2021-12-06 Office Chrystal-Iheme 1.2.840.1 [id number] [facility] 14:00:00 16:01:44 Visit , Nuzhat 47740.1.1 ity of 3.412.2.7 [place] .3.777777 MD Zuñiga8 [facility] 2021-12-06 2021-12-06 Ancillary Munroe-Marisol 1.2.840.1 [id number] [facility] 10:30:00 11:00:00 Procedure Amira tavarez 57581.1.1 ity of 3.412.2.7 [place] .3.414503 MD Zuñiga8 [facility] 2021-12-06 2021-12-06 Outpatient EL MUNROE-MARISOL MDA MDA [id number] 10:23:45 10:23:45 AMIRA TAVAREZ derso n 2021-12-06 2021-12-06 Ancillary Munroe-Marisol 1.2.840.1 [id number] [facility] 08:00:00 08:30:00 Procedure Amira tavarez 50985.1.1 ity of 3.412.2.7 [place] .3.572917 MD Zuñiga8 [facility] 2021-12-06 2021-12-06 Outpatient EL MUNROE-MARISOL MDA MDA [id number] 07:51:05 07:51:05 AMIRA TAVAREZso n 2021-12-06 2021-12-06 Orders Chrystal-Iheme 1.2.840.1 [id number] [facility] 00:00:00 00:00:00 Only , Nuzhat 86185.1.1 ity of 3.412.2.7 [place] .3.205209 MD Zuñiga8 [facility] 2021-12-06 2021-12-06 Orders Munroe-Marisol 1.2.840.1 [id number] 10 [id number] Univers 00:00:00 00:00:00 Only shay, Amira 84029.1.1 ity of 3.412.2.7 [place] .3.643387 MD Zuñiga8 [facility] 2021-12-06 2021-12-06 Travel 1.2.840.1 1.2.917.280 [id number] Univers 00:00:00 00:00:00 50605.1.1 350.1.13.41 ity of 3.412.2.7 2.[place]7.3.698 [place] .3.691225 084.8 MD Zuñiga8 [facility] 2021-12-04 2021-12-04 Orders Munroe-Marisol 1.2.840.1 [id number] 10 [id number] Univers 00:00:00 00:00:00 Only Sunshine tavarezsy 75217.1.1 ity of 3.412.2.7 [place] .3.200477 MD Zuñiga8 [facility] 2021-11-26 2021-11-26 Orders Munroe-Marisol 1.2.840.1 [id number] Univers 00:00:00 00:00:00 Only Sunshine tavarezsy 99632.1.1 ity of 3.412.2.7 [place] .3.173428 MD Zuñiga8 [facility] 2021-11-26 2021-11-26 Telephone Pankaj 1.2.840.1 [id number] Univers 00:00:00 00:00:00 Kyra 69862.1.1 it y of [place] 3.412.2.7 [place] .3.748242 MD Zuñiga8 [facility] 2021-11-26 2021-11-26 Orders Munroe-Marisol 1.2.840.1 [id number] Univers 00:00:00 00:00:00 Only Sunshine tavarezsy 42683.1.1 ity of 3.412.2.7 [place] .3.997048 MD Zuñiga8 [facility] 2021-11-22 2021-11-22 Outpatient EL PANKAJ, MDA MDA [id number] 10:18:21 12:10:29 [facility] 2021-11-22 2021-11-22 Office Pankaj, 1.2.840.1 [id number] [facility] 10:00:00 12:10:29 Visit Porter Guerrero 09986.1.1 it y of [place] 3.412.2.7 [place] .3.314051 MD Zuñiga8 [facility] 2021-11-22 2021-11-22 Travel 1.2.840.1 1.2.622.685 4145 [id number] Univers 00:00:00 00:00:00 20313.1.1 350.1.13.41 ity of 3.412.2.7 [place]7.3.698 [place] .3.362185 084.8 MD Zuñiga8 [facility] 2021-11-20 2021-11-20 Ancillary Esa, 1.2.840.1 [id number] Univers 20:05:00 20:10:00 Procedure Fausto Veras 21777.1.1 ity of 3.412.2.7 [place] .3.394461 MD Zuñiga8 [facility] 2021-11-20 2021-11-20 Ancillary Esa 1.2.840.1 [id number] Univers 20:00:00 20:05:00 Procedure Fausto Veras 38521.1.1 ity of 3.412.2.7 [place] .3.156766 MD Zuñiga8 [facility] 2021-11-20 2021-11-20 Ancillary 1.2.840.1 [id number] Univers 17:35:00 17:50:00 Procedure 87422.1.1 it y of 3.412.2.7 [place] .3.611929 MD Zuñiga8 [facility] 2021-11-20 2021-11-20 Outpatient EL MDA MDA [id number] MD 17:31:29 17:31:29 [facility] 2021-11-20 2021-11-20 Ancillary Dany 1.2.840.1 [id number] Univers 16:15:00 17:15:00 Procedure Elliott 22096.1.1 it y of 3.412.2.7 [place] .3.593955 MD Squires [facility] 2021-11-20 2021-11-20 Radhames Saenz, 1.2.840.1 [id number] Univers 13:30:00 15:00:00 Procedure Elliott 71820.1.1 it y of 3.412.2.7 [place] .3.388901 MD Zuñiga8 [facility] 2021-11-20 2021-11-20 Outpatient MJ SAENZ [facility] MDA [id number] 13:51:31 13:51:31 ELLIOTT atkins 2021-11-20 2021-11-20 Outpatient MJ JOSEPH [facility] MDA [id number] 12:40:48 12:40:48 FAUSTO atkins 2021-11-20 2021-11-20 Outpatient MJ JOSEPH [facility] MDA [id number] 12:40:43 12:40:43 FAUSTO atkins 2021-11-20 2021-11-20 Outpatient MJ SAENZ [facility] MDA [id number] 11:54:52 11:54:52 ELLIOTT atkins 2021-11-20 2021-11-20 Travel 1.2.840.1 1.2.689.275 [id number] Univers 00:00:00 00:00:00 87568.1.1 350.1.13.41 ity of 3.412.2.7 [place]7.3.698 [place] .3.889181 084.8 [facility] 2021-11-14 2021-11-14 Jaxson Saenz, 1.2.840.1 [id number] Univers 00:00:00 00:00:00 Only Elliott 70169.1.1 ity of 3.412.2.7 [place] .3.043538 [facility] 2021-04-29 2021-04-29 Outpatient MJ GOOD [facility] MDA [id number] 12:20:45 12:20:45 DEMETRIO atkins 2021-04-29 2021-04-29 Office Demetrio Good 1.2.840.1 [id number] [facility] 11:30:00 12:00:00 Visit Dany Elliott 19445.1.1 ity of 3.412.2.7 [place] .3.359497 .8 [facility] 2021-04-29 2021-04-29 Travel 1.2.840.1 1.2.601.660 [id number] Univers 00:00:00 00:00:00 70660.1.1 350.1.13.41 ity of 3.412.2.7 2.[place]7.3.698 [place] .3.059100 084.8 .8 [facility] 2021-04-29 2021-04-29 Telephone Rachel 1.2.840.1 [id number] [facility] 00:00:00 00:00:00 Veronica Justice 14237.1.1 it y of 3.412.2.7 [place] .3.380155 .8 [facility] 2021-04-22 2021-04-22 Outpatient MJ GOOD TALHA MDA [id number] 00:00:00 00:00:00 DEMETRIO atkins 2020-04-16 2020-04-16 Outpatient MJ JOSEPH TALHA MDA [id number] 11:39:48 12:59:07 FAUSTO atkins 2020-04-13 2020-04-13 Outpatient MJ JOSEPH TALHA MDA [id number] 00:00:00 00:00:00 FAUSTO atkins 2020-04-06 2020-04-06 Outpatient MJ JOSEPH TALHA MDA [id number] 00:00:00 00:00:00 FAUSTO atkins Results Test Description Test Time Test Comments Results Result Comments Source TMP Interpretation Antibody Screen Negative 2021-12-17 03:16 :57 Test Item Value Reference Range Interpretation Comme nts TMP At the present KIMBERLY Auto time, patient MD LOBITO - 147 78Dictated by: GENIE ROBIN MD - [place] no [address]39Donmbou d Date/Time: 12.16.2021 22:16 PM CDT ABSC evidence of RBC Transcribed Date/Time: 12.16.2021 22:16 PM CDTElectronically Interp alloantibodies. Signed By: Anni ROBIN MD - [id number] on 12.16.2021 22:16 PM (test code = 7535) [facility] Center[facility] [id number] 23:01:19 Test Item Value Reference Range Interpretation Comments ABORh Confirm. (test code = 882-1) O NEG [facility] CenterAntibody [id number] 22:32:35 Test Item Value Reference Range Interpretation Comments ABSC. (test code = 890-4) Negative ABSC [facility] CenterABORh2022-04-04 22:32:34 Test Item Value Reference Range Interpretation Comments ABORh. (test code = 882-1) O NEG [facility] CenterClot Expiration [id number] 22:32:32 Test Item Value Reference Range Interpretation Comments T & S Expiration (test code = 12/19/2021 5318) [facility] CenterProthrombin [id number] 18:13:24 Test Item Value Reference Range Interpretation Comments PT (test code 12.5 See_Comment Testing Perfor med = 5902-2) [facility] [place] [address] [facility] [address] [Automated mess age] The system [employer] generated this result transmitted ref erence range: 11.5 - 1 3.9 second(s). The reference range was not used to int erpret this result as normal/abnormal . INR (test code 1.00 0.90-1.10 Testing Perfo rmed = 6301-6) [facility] [facility] [address] NORMAN (test code This lab cannot be = NORMAN) scheduled at the following locations due to collection/proccess ing restrictions: [facility] and [facility]. [facility] CenterGlucose, [id number] 18:11:23 Test Item Value Reference Range Interpretation Comments Glucose Random (test 189 mg/dL 70-199 Effecti ve 04/09/16, the code = 2345-7) glucose refer ence intervals have been updated based o n [employer] ramona delines (Standards of M edical Care in Diabete s 2016. Diabetes Care 2 016; 39: S13-S22)Fasting blood glucose:Normal: 70-99 mg/dLImpaired f asting glucose (increa sed risk for diabetes or pre-diabetes): 100-125 mg/dLDiabetes m ellitus: >/= 126 mg/dL R andom blood glucose:N ormal: 70-199 mg/dLNot e: Random glucose >100 mg /dL is associated with increased risk for diabetes Testin g Performed at [facility] Lab Personnel [facility], [address], [place] [address] [facility] CenterGlomerular Filtration Rate 2021-12-16 18:11:22 Test Item Value Reference Range Interpretation Comments eGFR-AA (test code = 63 See_Comment Normal eGFR >= 60 72839-0) mL/min/1.73 m2 Note: The eGFR is zenaida culated using the CKD-E PI equation. The e GFR declines with a ge. eGFR <60 mL/min /1.73 m2 is considere d as "decreased". Th is equation should only be used for pat ients 18 and older. According to th e [employer] Kid[employer]'s Ki dney Disease Outcome Quality Initiat domitila (KDOQI) classif ication and 2012 Kidney Disease Improvi ng Global Outcomes (KDIGO) Clinica l Practice Guidel ine, the stage of CK D should be categ orized based on estima anny GFR. Stage Desc ription GFR mL/mi n/1.73 m21 Normal or h igh GFR >=902 Mildly decreased GFR 60-893a M ildly to moderately decreased GFR 45-593b Moderat ranjit to severely decrea sed GFR 30-444 Carmen rely decreased GFR 15-295 Kidney f ailure <15 Testi ng Performed at [facility] Personnel [facility], [address], [place] [address] [Automat ed message] The sy stem which generated this result transmit anny reference range : >=60 mL/min/1.73 sq. m. The reference range was not used to int erpret this result as normal/abnormal . eGFR-DORCAS (test code = 54 See_Comment L Normal eGFR >= 60 55337-3) mL/min/1.73 m2 Note: The eGFR is zenaida culated using the CKD-E PI equation. The e GFR declines with a ge. eGFR <60 mL/min /1.73 m2 is considere d as "decreased". Th is equation should only be used for pat ients 18 and older. According to th e National Kidney Foundation's Ki dney Disease Outcome Quality Initiat domitila (KDOQI) classif ication and 2011 Kidney Disease Improvi ng Global Outcomes (KDIGO) Clinica l Practice Guidel ine, the stage of CK D should be categ orized based on estima anny GFR. Stage Desc ription GFR mL/mi n/1.73 m21 Normal or h igh GFR >=902 Mildly decreased GFR 60-893a M ildly to moderately decreased GFR 45-593b Moderat ranjit to severely decrea sed GFR 30-444 Carmen rely decreased GFR 15-295 Kidney f ailure <15 Testin g Performed at [facility] Lab Personnel Recruiter [facility], [address], [place] [address] [Automat ed message] The sy stem which generated this result transmit anny reference range : >=60 mL/min/1.73 sq. m. The reference range was not used to int erpret this result as normal/abnormal . Lab Interpretation Abnormal (test code = 57047-3) [facility] Center[facility] Dioxide [id number] 18:11:21 Test Item Value Reference Range Interpretation Comments CO2 (test code = 27 See_Comment Testing Per formed at [facility] 2028-05) Lab Personnel Recruiter [facility], [address], [place] [address] [Automated mess age] The system which ge nerated this result transmit anny reference range : 22 - 29 mEq/L. The refe rence range was not used to interpret this result as normal/abnormal . [facility].Serum Dwzhcvydsm3940-02-07 18:11:20 Test Item Value Reference Range Interpretation Comments Creatinine (test code = 0.98 mg/dL 0.51-0.95 H Test ing Performed 2160-0) at [facility] Lab Personnel Recruiter [facility], [address], [address], [place], [place] [address] Lab Interpretation (test Abnormal code = 78738-6) [facility] CenterBUN2022-04-04 18:11:19 Test Item Value Reference Range Interpretation Comments BUN (test code = 7 mg/dL 6-23 Testing Per formed at [facility] 3094-0) Lab Personnel Recruiter [facility], [address], [place] [address] [facility] CenterAnion [id number] 18:11:13 Test Item Value Reference Range Interpretation Comments Anion Gap (test code 10 See_Comment Testing Performed at [facility] = 93989-0) Lab Personnel Recruiter [facility], [address], [place] [address] [Automated mess age] The system which ge nerated this result transmit anny reference range : 4 - 14 mEq/L. The refe rence range was not used to interpret this result as normal/abnormal . [facility] CenterChloride Rhrck9890-10-24 18:11:12 Test Item Value Reference Range Interpretation Comments Chloride (test code = 107 See_Comment Testin g Performed at [facility] 5-0) Lab Personnel Recruiter [facility], [address], [place] [address] [Automated mess age] The system which ge nerated this result tra nsmitted reference range : 98 - 107 mEq/L. The refe rence range was not u sed to interpret this result as normal/abnormal . [facility] CenterPotassium2022-04-04 18:11:11 Test Item Value Reference Range Interpretation Comments Potassium Lvl (test 4.1 See_Comment Testing Performed at [facility] code = 2823-3) Lab Ambulator y Care [facility], [address], [place] [address] [Automated mess age] The system which ge nerated this result tra nsmitted reference range : 3.5 - 5.1 mEq/L. The reference range was not u sed to interpret this result as normal/abnormal . [facility] [id number] 18:11:10 Test Item Value Reference Range Interpretation Comments Sodium Lvl (test code 144 See_Comment Testin g Performed at B = 2951-2) Lab Personnel Recruiter [facility], [address], [place] [address] [Automated mess age] The system which ge nerated this result tra nsmitted reference range : 136 - 145 mEq/L. The refe rence range was not used to interpret this result as normal/abnormal . [facility] CenterCytology Image-Guided FNA Ovnfimrgdhcagm2628-16-60 21:37:45 Test Item Value Reference Range Interpretation Comments Gross Description (test j7vgsSBnBVIpyVHCHYn code = 1317762391) wMVxhbnNpXHNwbHRwZ3 ZwzilvVKwwAX8mZU5wp YodkWSiwPRaRD2WOSVz ZmYxXHBhcGVydzEyMjQ iQLUjnQWdgBI7JRTeUA 1hcmdsMTgwMFxtYXJnc eM9TRNbaCUgE0SbOMUa IS5ycjfgDGM5TJptpL3 ortMETyruNh0brVTwxW tcZjFcZmNoYXJzZXQwX CDjgOevXJFmVIm2rD5O IlwsW71rd5S4Uiq2MJF xIAQuP1LiRS9oDRKnoX UiL72YOsqzKUT0OEARV grsGSPhAT4Jn5vcCYQv gHWzVXY6ZUolqPUdGTG aKUOpVTb7TWZvKEsmrX NnVG5thMalAplucGvcx 2VjdCBcXGlkIDUxMDAy YBzrNROiYZ9VPzXpDEH wBSY7VSSqCTz1IFb2QZ 3JViAsNUYbCYQ7JRJvX lCzFQl8TEilPB4NDGRb NKV4HXC9MebkJTIxNdF cABk5LCOeWTleKKSefG FsIFxcZnMgMTAgXFxmY gFkFGNoRSzqecG7KJUa YWluXGJcZnMyMCBBOlx pCAFyQQhcdHcugJ7qRJ XmM05xs1BBw6EzHW1WN Ay8vgBhktopnA4jOSUt roShIWxfgDClJ6erN6O eBWIsAtZaI7VwD6xrOD 9xMKFod9G9xlGjCnzwO XIgDQoyIERpZmYgUXVp pwuoIGCEUMCcO8GvnZ0 bY1pwAUSjFLLemqHFWt CdRP2yJWTknBJieYDht HegQwzsiMK3ZAtgExja tZ4uyTJEPPHLAidHFbl fujTbSQ9AZONCRaISMF 69TpB0RmL0QQgxvDzwY vehjhCxeJAuYfPCsD4p bGVhciBccHJvdGVjdDB 4NZEjYJfko6yiWKHdXC tpy1AjVBnEVSHBVU0PZ R7akTF8S8aPSTURA4eW tVU6i2kwcMRfe6k4IJc jAHR1oWDfXGqgSofycN Y0JHrhXwfifU7irIWQW YGPWwgLQaukftJsKC9C NSlDSN5CeSW9q4drwVC qy8u2WJnkMFE4bIgcoG MacascmOLuyNmxkx13N MU0PPGqOTitngGpWFWf uUTaHBopEafzaVD4PBr uHmggoT9znVQNUEXCRo iCPqzujqWfTR2ASKFLD K8ZkPT7WzHchCO2XH04 LHJxCESbuGGfLFwgS64 7JBZyCZxoFWz6ysKkIB NmMVxmczIwICBpbiBSU D4GIYAporPMGvNtD0g7 i0JjpQ2wmGYkAW4NGYI iwaLOTcIiygL8VSYrWA XqcDcvRALbSQoRpV5dE GlhdGUgYXNzZXNzbWVu cLRjy5Ebm7RrP8ufUP0 lRHUfsWDaC7oqi8PfMC 0cKWHqLRNuv5SlV1H4B ADyNNfkc9xsTPDgLXfy z2DwXQkNAIELQT4QMA2 wzWM2WEpUNKSOK2cBsO I7SfI7cOA6O862HPYyE UJzlLDbPTiqB539xWP6 OTAtDNtpl9riDMXsNIt fn6ClUYcXOKMOVS2MSU 9jsFM7CXiIYTKIAJzwK Ao2RSyejOT9h9kuaTYg t5v3MZltCHA4wZvlzUN pblxsdHJjaFxjZjFcZn MyMCAgYnkgRHIuIFlvb 24uDQpcdiBTTUFSVExJ C5DtTXTPEJMJBMHfGwP UZO7qAcT8NzZ1QA4sAp hfVnY1VxZ7dHF9WZULU VSBOEgFK2WtXQFVZJUU GNVqHE4VJCcQNNSTNAX QP08UJRBSGIZZB1XCU4 nADKRik5IkVDwXRAXPJ OGRT75KXCXILRGDW7HA RCBQTEFDRUhPTERFUl9 BNCCKMXPVDG2KZOkPIm UyJAahaUKaYDdnHWP7Z Pd3F9n0kEZrl8ZtrUD2 AyI3AlBcrSQFQYAGQUb CJPYBSr6TFYAGKRCZHV 5AHuSuJ5FXWY7XXj1AE CHESDJYRX5GLHvHVjIf V2PCMJ0IVl6LTSFRPHL PJN9GFhNxVGOET6VJKs NRT4qxGEZUOZTNVSFjU qPYFM7gXWEVMC7NIMUR RDUYN42VEVBIQQAAY1J DND2XAFKgePLSLKD6LV 2lZGg5OAaqBFWrX1GsE 3RlbmRccGFyXHBhcmRc s6ktFKQ3ZEWvzQHfvDI sQyEaUiwpYLZ4VNDmNY riEB2HXELrZWD3BBydx T30lIAyKD5WGYBiKYgg ZSOlJFFyixE0XQDjqNC qVSN5YB5vmTefiRPftw dpivW2MD8WuD== Immediate Assessment (test Adequate code = 9837) cellularity, favor benign Major Classification (test NFMC/benign code = 9839) Diagnosis (test code = 34) n2ofpKElVUWtrXJ5QaN tGFOok2xpf3IvnBAitH FvMLbcgAKdwfUsnx29p FI6xC39HK1vUCNySuY1 JHKbudN2Icg0UAVaWOP ywDFpK043c1ykp5rdxt ZlkLC4TDEhVYHfM1MwF Q1vOWKdaDSiA76nbBAn PAK2VTRmRYVruROwYKO wQLF4MYWigXPdG1tyLZ YiAW6pjfmuIMcaVZldY HIooPI0TJIivOGvT6Kh PRQkNWoqSGRaqbv5MiF sFk6tjAEteLunZVgzK3 hlaH9jGrQ1XLprT7vax B2kEBp8QFbfGWOxuBH4 byV3SMBioSGdA9YepV2 hOMRyHT0rvds5o7iuEA F9KIewAXMtCnK2znQ3S DBccGFyZFxwbGFpblxm czIwXGNmMSBBLiBCcmV vz3ZlFIWzD0g3AKFnmF 9cPY1xDMDiDYEjp7JaV XPtB0n8TOIeSGBtwYPs OVUgLVF5GWCgVWIsVo6 8UYElcmp7ELZwrXAvZZ xpNzIwXGxpbjcyMFxjZ gVjWe0omFWwdLohFN25 BLGhjIvhXJvjAO18sCD pZWRccGFyIEJlbmlnbi DcwYW2TOfmELEfiOjww Ci3zHE6dCFxMLAod2Jq oU2lPU4roZSgtJHjsMV ymP3sFUNuOQGrH0OpgL 1bKT9cPLE2o9EbSmBzF BFusGBpQR8hFSBgFID0 EIYpCAEhQVIzw3CqTQz gtwLmw58twOK2ZE79WW smxZvbZkepcd5bnUF8e CNjO0gkgmunCPIlduaw YXJkXGxpNzIwXGNmMVx wYXJ9 Retained/Biomarker Testing m4nvnUOdMDXcoWI6WsX (test code = 9838) kEIEbq4gqp9TgwIRdjI BaLVztjDBeteZsab32i EA4eN57II2oPRLtEmP9 BDAltdZ9Aqx2IHXpRNI khRWgK360t1urr7cucc MlzGP2pFtgDXQnhkxeD iX0ZFssLRNjornyDLa5 XKgtPZZozGQ8SOYzhLI aM6GzKOTlON8xtib0MZ B0BPymYDPmQrG1GNBez MJfWEDncMnpCDqlg737 LPX7ZvUrLDLaezKhoHj peR4nHgYqQJRMEjifZB BTXHBhcn0= Informational Points (test w2ikeTJbAWWuqNHgXnY code = 9836) zXPCjTZMsq2qoHFUpiT FuZzEwMzNcZnRuYmpcd EXgMJCpHgTlw2yvr666 gBVdd9svTRIgWmC5eZK iWGNagIDsC214XVHlFC aoi1hul7QpPAPsdFPtp 0S1SCZAWSjxMIRLSKh0 y3kgQkNdDaG8xWIcBVh wE7jacuGgsUSlZXQsKG v1iJ47MBIfkH6wfZAhW WhyiaYoEnK4MOetKYMj PrS9GPFlaBInMGAoP4o yZWQwXGdyZWVuMFxibH QcAFQ4wJjxe2X6nZBdj GVldHtcZjBcZnMyMiBO e0BaOPt6pSuzA2AkKUH cPqI3fVPsJDUfOBwbPS PdERAcrhQ0fB64TKrbg uF7ySXnd0Xds22dt630 aZ4exUHcANH2IZZlPCW vnPQdAOTwDNK1FFLetI VwZ2rdUVEkFN5ycnnwF VvzDTjiEEHsmIG0YVGg zUFxX4PwWYWiNOygFFO tjur3GqAkOn0suVQheL ajYCzea3dad7vpbZFaV jd4DVVkKbVgKzezXJru k7Vib5urVJRpqz3wFJX 5wCZbeUugh5L8sDUsKM WniLKcktCfOHDyzw01e IVwsIFhaOGmws8vsiWm vXWjuAAjMBD2rEGjdtL uXGZldDRcYWVuZGRvY1 koBvTnggNbB7ggV5NvF HJoZWFkXHBnYnJkcmZv e5Uog9TjvNNmyZk6z6m qFLTuPJCsrHqxt4asAN G5NUEwO6N2tXNsy2xpL BlkKJTobXM9xlT2ZEHo gVIpP5SvmR7mSTRpNC6 arqs3a9asPUU4IRejPA XxXkG8bfE6WVZfuQBxF FFxnPksDTpgw946HHD1 RhQtKYGxv6PqT1BnrQi pD67zeFkjY56vHLPllX ohcP6mhRillD7qTqVbV nMyNFxxbFxwbGFpblxm AYfploJ8IHlrtflgDIG jNExcL3sjQyQnLXQunE naKInme7IeFAUyCKHqF UcfkJVGp52zXRYnt7Ll FKDwzF2iyZAoQSeqxmW ndAQ6LPzivsJfSuHhek PyXFLfwQ0oDHRnSU8dZ XFkxsMpsm6vxwQkFWEh SXYiG3OwwshxzCxclsD pUVWfbd7sobDwNKX9WD YONE9ARGMmHQCeh47rJ XIaxIksbF8guUJnyaQb WGCni4SelX1mdIQWMCA zN8tgVR1cAVoyy2RxfY XieJOctKX8GJUpe8UnZ tUblaMusQReqZRvJ9Uv vCxuS3xfNGVgMSCtvcC fbKZzw9GsCCVneEB0jK PoCV3YOqLXb80kQVNjY CBEcnVnIEFkbWluaXN0 knO1pY3mYzCBaOvxYXI cc5Dfg7YpRJGsxnVskh NpLDP3TPfzzEJdozooG TjkisE5ASvywtlrNVGo KHmpM8qoVwYfKRCliHc tTDfwm2FgZIZiWDHzJg ommyF3HDy8hfXgYTrtU CSnB3NyTIUjsMwrRCVt eSBBcmVhKSBDeXRvcGF 8lP0xl5x4VEagLe2hUU DaxwhtnUvmmU9gUeKoR bLxBYceMW8lYIVwF9fj kDDuFFAnMJIrQ5deLuP gfG8isCybDLcaZiScEm MxOFxpICwgXHBsYWluX GYxXGZzMThcbGFuZzEw MzNcaGljaFxmMVxkYmN tUEOaWRwrV1jlZxGmR3 NyTPKqZVheuRFoC7tir SAyXHBsYWluXGYxXGZz MThcbGFuZzEwMzNcaGl jaFxmMVxkYmNoXGYxXG pdD7toEzIuL7CvDAHqC ThcZXhwbmQtMVxleHBu TSJ3ABKhxVRbQ9tnoLV nXAJuI1AcWbNCemJcj9 I6FOVgkMTgTFOHENZce FHnL3r9xMunKMqnFgr7 NzMuXHBsYWluXGYyXGZ zMjJcbGFuZzEwMzNcaG ljaFxmMlxkYmNoXGYyX PoiR8scQfOsElBnZgwi YXJ9 [facility] [id number] 16:49:09 Test Item Value Reference Range Interpretation Comments POC Crea (test code 1.0 mg/dL 0.6-1.3 Medicati ons, = 04940-0) especially hydroxyurea or supplements, peterson ch as ascorbate, can interfere with test results causing a falsely and significantly h igher result than exp ected. If a problem is suspected with a patient's resul t, a sample should b e sent to the laborato ry for confirmatory te sting. Method descript ion: The i-STAT is a n analyzer used f or in vitro quantific ation of various anal ytes in whole blood. The device uses a s shawn disposable cart ridge which contains microfabricated sensors, a calibration annia ution, fluidics system , and a waste chamber . Each test cartridge contains chemic ally sensitive biose nsors on a [employer] ip that are config ured to perform spec ific tests. The microfabricated sensors measure analyte concent ration by an electroch emical assay. POC eGFR-AA (test 61 See_Comment Normal eGF R >= 60 code = 53896-6) mL/min/1.73 m2 The eGFR is calcula anny using the CKD-E PI equation. The e GFR declines with a ge. eGFR <60 mL/min /1.73 m2 is considere d as "decreased" Thi s equation should only be used for pat ients 18 and older. According to e National Kidney Foundation's Ki dney Disease Outcome Quality Initiat domitila (KDOQI) classification and 2012 Kidney Dis ease Improving Globa l Outcomes (KDIGO ) Clinical Practi ce Guideline, the stage of CKD should b e categorized bas ed on estimated GFR. Stage Description GFR mL/min/1.73 m21 Kidney damage w ith normal or high GFR >=902 Kidney d amage with mild decre ase in GFR 60-893a Mild to moderate dec rease in GFR 45-5 93b Moderate to sev ere decrease in GFR 30-444 Severe decrease in GFR 15-295 Kidney f ailure <15 (or kenton lysis) [Automated rapt.fm] The system [employer] generated this result transmitted ref erence range: >=60 mL/min/1.73 m2. The reference range was not used to int erpret this result as normal/abnormal . POC eGFR-DORCAS (test 53 See_Comment L Normal eG FR >= 60 code = 20662-4) mL/min/1.73 m2 The eGFR is calcula anny using the CKD-E PI equation. The e GFR declines with a ge. eGFR <60 mL/min /1.73 m2 is considere d as "decreased" Thi s equation should only be used for pat ients 18 and older. According to th e National Kidney Foundation's Ki dney Disease Outcome Quality Initiat domitila (KDOQI) classification and 2012 Kidney Dis ease Improving Globa l Outcomes (KDIGO ) Clinical Practi ce Guideline, the stage of CKD should b e categorized bas ed on estimated GFR. Stage Description GFR mL/min/1.73 m21 Kidney damage w ith normal or high GFR >=902 Kidney d amage with mild decre ase in GFR 60-893a Mild to moderate dec rease in GFR 45-5 93b Moderate to sev ere decrease in GFR 30-444 Severe decrease in GFR 15-295 Kidney f ailure <15 (or kenton lysis) [Automated mes farrah] The system [employer] generated this result transmitted ref erence range: >=60 mL/min/1.73 m2. The reference range was not used to int erpret this result as normal/abnormal . POC Clean Dev (test Yes code = 6672) Performing Lab (test MDA Main Main Ca mpus code = 54327) [facility], [address], [place] [address]; Rivet Hole Puncher: Zakia Aragon MD Lab Interpretation Abnormal (test code = 53271-8) [facility] Bi[facility] Interpretation 2021-11-25 16:06:16 Test Item Value Reference Range Interpretation Comments Submitted Clinical History b8sjoNCkVLSvn3ipAFZ (test code = 31268) DennyMzNcZnRuYm pcdWMxIHtccnRmMVxzc 7BaD5IaHqAxQIkyioIq XGRlZmxhbmcxMDMzXGZ 0bmJqXHVjMVxkZWZmMH hhVj3yhWBqtPziWdUqP XGsv3qsdiSHwzgduZs4 b7yyYINbRdI0iQDjZKa cA3gnucQquOOuTTWmRE f6vN40QBJknD3ilYEcX HzkghLhVdI4GTyrXLFu GhP3BCVasIOfAOUjA3l yZWQwXGdyZWVuMFxibH WxZYW6oChri2Q1iIQqv GVldHtcZjBcZnMyMiBO t9HmMNo2jLthV8WaMIA mBuU0mKYcQFXeTBfiHN JjLVOvhwN8dN99LSory kL2hAVfx3Bdb19nw185 zL2rqFZuOMJ8SIJhIRJ wfZPnQVGsHUV1JMAdmW EpC2cnATOuTE8zojdhV EbdEHolRITgkJN6LRWj nVNpR9AwYPKzCUxmLNI rynu2ViUcOy9lvHXgcY plYGjip2ljx8ysrPQmX om2FVPoDeHcMugeQSbl b7Abx5rjEZTkwf1dPSA 2mTWklCdbw6E0iTRpJI WjyQXacrEnQQIzMjX7S PwzNG8ebj15FYYbQVT1 jp0udSLwlJjsnlBdzLM fZHaxC6OaWEExf511SZ SrR8FnPWEls6Z6arFsL sFfDLVwgZF6bxX4CJOn JMy5cNWvpkW6ohPstXX dP2xzcJ6aMVWhSK4fro khn0jiCNokPWeyRWIxj QJ3owW1YXDdtJVdG8Or qS2xQRCtFLryLMTzkwk 5QpWzUd3swSKkaTugTP xzYmtwYWdlXHBnbmNvb nRccGduZGVjXHBsYWlu XHBsYWluXGYwXGZzMjR kvUivdGdjmU4rNaLiCi EvYGyuQH0pTFAvR8sfo RGoOXLcQHKtT4ufJiQk yX9pnUzzHAjrubNpET5 zjV3iF8XycTn0INWrfr 8tsRLkNByRQULnUC1hp ObunJ8tJfHaPqNxTblt LN9uWLKbJ1stgAZsMPF uKRUdQ5buRzVbbD1bsB yiZLjteaQuDUTise75 Diagnosis (test code = 34) a2zcdXYdHHGxsBP4GyX fLUNuv8yqk8ZxjGGcfF EvVGxzjPKfgdLczp93o JF4vS36JP2cFYEnMuH8 SHPszfM6Eux2SUBoXEM mlBZwC267i0pxy7ichz WdmAJ1WGYwHCTfN8PqE Z9dADUocJWtU21yoMTc PJE8NZDbGZOwyLQrCSN sOXC5NYHxyAAmI8erNB JrJD6jeagyRRcxYMxnE IZrrXD1XYZafJExT3No PFAaFVloNHIjzyt1KnF yAj6ntUCbeAqdEVnrUK JkXHBsYWluXGZzMjBcY 3RiDAO9OURkUHRreUwu gqjnfBQgZYWqD0h4EUG yZWFzdCAxMDowMCwgNy JxaHNJShnrMY42OVUhN BEwxGImCmlqBV6zh5Fy JHHpnMSvw299fuSaS2Y pZGVkIGNvcmUgbmVlZG tfTSOph4ZynVwwzYOvV GxpNzIwXGxpbjcyMFxj XvPzLW7QLTJKNbGoMIK BJEFRQGVFGwPJLp5EED RAGcQRGgCXO6WoLZoMK 3EBWG7TNURkI5MCKTCh MywgTlVDTEVBUiBHUkF ERSAzIChISUdILUdSQU AFKThfF2iCMPAPKYVFB 1BBUElMTEFSWSBQQVRU GCLQQTXUOC2RWOIPUJz DTXemPJ6IXUcXRWVWMJ RVQlVMQVIgUEFUVEVST gJeA6CCYCAAIL8LQpCc LlxwYXJcbGkwXGxpbjB ccGFyXGNmMSBCOiBCcm Vyd2YiMDVnB7m7ESGoz FaldJJawbNec5QbVMK8 GCUhFJVcL53rYv0gXXT vK23veNYgpBGiiHFahS LfamjmjSd5wkUzd2RmB L7reYxnQUMtT33gCHZi BQVbfGXaXlytvWP9Vle oMYBimQa4YgMfrIzfEn IaZCXaGJZFBpAVJ0eDF NVIHYWIYGecS9OYT4fY V24XVO3JFWWXTUUYSLx hLRkSSN1VF1vXVjRRDn FERSAzLCBOVUNMRUFSI NeXEBXTHLTmSKlAR4ev C3JHHFKqHXKAQFUWII5 WT8VIITDJDXuBQVWAWS SCVRUCMh3mASNNTHxNU SKlK8vGFYLLU3knV4ED REUgVFVCVUxBUiBQQVR FBLYPZZjCZVUrK20MNX VOVCkuXHBhclxsaTBcb ZshGVxaMGXtN4BeFOD5 MZm4yXDcFX6mPELpuzc hQQNqS8y8GBJxwRrxxA FyeSBsZXZlbCAxLCAxL ovyH42pQXAdaBLdh315 qbAxV9TuVRRlRWFyrxM odhLoSLikVDAup7KaiU pccGFyXGxpNzIwXGxpb jcyMFxjZjAgTUVUQVNU GYUBRsQEUAUHJ9MEYqW XOl4WOWTERITKFZ0sA7 8TKAoDZDPHOZ0TSLLjS YPuMGmkZXYDAHOKT01U PY6OZVBjecgbxGRvfUz cQJygTQGpI4HzHZL5NA JyZWFzdCwgbGVmdCwgb TKxiEDaosItj9XlYgld MCwgNSBjbSBGTiwgMS4 0FXOoMQ7ry3DyWDVnbL Pbf157srYaF4JbITTgL GNvcmUgbmVlZGxlIGJp p3EazAhlaNYhJDzyZeY wXGxpbjcyMFxjZjAgUG 4btEbvpbHqTpF5iKZrE BUmW0NgifPjQ6efbIP7 aXRoIHJlcGFyYXRpdmU kK3yrnnkwwoHeu0CnFU OlfO0lyhOrQtjnOVTom GFyZFxwYXJ9 Comment (test code = 9835) m3ryhJWaWKXkmDM9DrB qCYQxp1nxs4SvzNOnrN MyFUnvbWFsuuEbwj65l OV0kC62CG8gRTGfVmJ2 WERpcaJ8Leu5KNVaYGA gxZGkG609i8tjt3zxme PuxVA5KJYjFTP5DPebi iRfozO6YIdpdBHhCbC4 R3tqLQNoDGktAPDwKLn iqAHgWXw0VCTroSZawi XhDdUmKGVjyMLngCR5M CPpGO6pyegmXErtRWhk AVVercP5YPDqbFUiT4Z zHLBqVG8wlcruXKS8PK qyHPNdJOJ6WvXxZHWsj 1Lnogg5IiCzrDIlZMgx bGFpblxmczIwIFRoZSB ahnIpe2o9LYZnGOBbvD 2zsFGrGNErDx29uCFlb XRlcyBBIGFuZCBCIGhh seK5m19vWCnseXzbK2I fpnUjaHsexH0fr9siQt CkDJM4TXJwlnodpY38U APwbiLirWhefz7uOQUj bGxhcnkgdGhhdCBoYXM jeEyblI0fgbLzLMSlip QgaXMgYWRqYWNlbnQgd E9sJ0wts9RtSvOfbsQa v3r3MFT9aAI0cXYcNTJ ljYMyju6zsEbklGCdCW SlnU20LXtqPYXdQmRsG a16hGUhZmN1jYMqTOEc qXG6r1sgL4tzXWBfdGF adb9kLZaqcdIxbVBnhv GbO1XtMMYlC1KqaT2lG OY5HiW6rITwOBJkHWEo Q8GhAbHcSAHtgG07GdJ uKTmjKA9woTTdrVOnbR MgyR8sqEyvBVB0wUxnC EW4CI6vVTVclNEdALN2 VlXvNJYewUB6kDNctp3 eO21zPFDccqFjrXHkcM uhxMHftPsykFO5eSSnb N68EGJvznSadIgchi7c QUOzyUhudmikeZY8mZA fyzEgihZ1jLGuuykhnG DfTfTcWON8SMTftErxJ RUxsSWzs0XuxQFwCCDu ZmZlcmVudGlhdGlvbiB rzg2qSWR6OqBrHZOkJ2 KvS4ifr81bYlSfCAFxy mbgNPTgMI1kjK4dkVfp qK8vlYBarEKuuKLoxZY yaiMkd7BvVLMgDPSoq9 WfCCKsx55xsIrcw2RnN CKkW2Vwk04sJSWnp66d m1MxP3dhUF8vKS5pFPF tKFMvDIGgeT2wiLTgw0 Isq51qlEfmVFtrduAkr 2VzIEdBVEEzIGFuZCBt HJ2fHXxsb5GroooxH70 vTsfcoBhsTvH2uWOseY OmqFPwkJQakccijH5oL QHHqzMkaV92ha2icLOt afYdf5PxFHYBHBvrF0p xuNdeqIOfZL4su8WaOF wnYIvkO2MyxABvEE5tU FAwPLQdc5BuZPJya79m iTQxyYHdWN64QKQ4qED wmcLnUJ1bXOp0mJCqe2 Tcl1K2oMNrGAunqqBme D5uHvjtEWJvkZPlEPIx xqujMEGqFWKkx53zvlp snzCKXHN3dTNtKarnON GbTyOgvBd2pWUdPF8lc B4ajZddgG0vsLWwzRNt bCBzdGFpbmluZyBpcyB mJBLku9HvUUFxhG4hj5 VyIGxhYiBvbiByZXByZ VVuiwAzfZd3IUnxAIFu qJSbBKx8uCs0SJGgrSM gwHYstOwyJxmfdPV4TI bgGuqegF6baEGQHWYYM zqIFgupygJcWC3IPWKZ BcWNIT31VbEcGGP2OGf xfXtcZmxkcnNsdCBcJz SifP3HBMJkMmVtxt4hy SSlPRCjEBWaQDP4eX4o OGFku1oqzGSfYZejAic qsHCuewR5WOfJFKWEVA eGFrFcZS3kOPbAU7JOT iX3HlLpPXB6JRkfqPgg ZmxkcnNsdCBcJzFjfX1 ouNbyuP0mqPhcaoUyOC Scalc1sb97REp6kyOlC rStLHNmaUGiDONhD3t4 cnBhZGRsMTVcdHJwYWR kZnIzXHRycGFkZHIxNV nltYMxTXR6HVUwZCKzX NRsOLT3QOTdUlYkbgDg MVxjbGJyZHJsXGJyZHJ tVGVxWTE1LPEjOjOoql NmMVxjbGJyZHJyXGJyZ OSmYVWdDCY4LGOjJoPf cmNmMVxjbGJyZHJiXGJ eIGXnXRKqNSU1FYLrBe JkcmNmMVxjbHZlcnRhb XOlF5okmGVZtFH0eXJv X1i8R5uwzVnhXgVnRQH aiVg9MwW6KGodqEYkDP S5ADTpTVWvCKAeIFF2I TBcYnJkcmNmMVxjbGJy ZHJsXGJyZHJzXGJyZHJ 3MTBcYnJkcmNmMVxjbG JyZHJyXGJyZHJzXGJyZ FR3JKZfEuPwdcEgPVfd bGJyZHJiXGJyZHJzXGJ gVWC6KADlOdVshpKhUH yanLRqzwYgySNhA8kwh UYFfHO6bJUmW0z0Z4co uWg3XoAzFFQgkMl0TXC 1MFxwYXJkXGludGJsXG WpxXYzP5AuZ0dxEW7oC EslZ69mx9tvKxLrD6Sl bFxwYXJkXGludGJsXGI aSKOrl0LqA3G0QHCcBN ayf9toYANdTEizj7MfD KbKQCXWFW5XFK4koJJ9 SRoVRAVOH4xWcVF5QMW mzDB9Vx16CICbKSFikA RcLEccF060AT1EKHREI kUgRFVDVEFMIENBUkNJ Gs9HKLzdCwlwtWN4XGd zKhqbhG5oxNVVBBINKq uZAqcgukFpFE9XHDVJQ N0YfXI8RRLkpMP0Dl32 AAOeIZPlaAQwBCiwV88 3MVEhDSzvJZPiCqEtA8 FxbDxsawTziAmja3eem OJlq7UzuLHtJRHfXoec AVBjwEMkKVusEQl9avR hZGRmcjNcdHJwYWRkcj P6IRGwBeLedeArYvWdw nNcYnJkcncxMFxicmRy P9GkNCTdZpIndzouPpD kcnNcYnJkcncxMFxicm MjZ9YoRDPqYfWtytWqY nJkcnNcYnJkcncxMFxi msWvA2NyYSHuOuEgxaY cYnJkcnNcYnJkcncxMF dwtuQmX0EpLFSyslRqv FUsgBhcoKW1k9ueCSZc M7talLiVlVI5zAXmCOT mH6SloOnfFcQiBKCpRk JkcnRcYnJkcnNcYnJkc jluJSahyjLqK6VxHSEi YnJkcmxcYnJkcnNcYnJ vyqofSDqnenOrM5TsPN NsYnJkcnJcYnJkcnNcY jLzozgqAMgvyeLoZ0Iq XGNsYnJkcmJcYnJkcnN cYnJkcncxMFxicmRyY2 YxXGNsdmVydGFsdFxjb AD7s0quRUPfE5tukZlA bUC8cJDaFDMdZ4NzwKm 5OWEnMXGatvPbtY67Cb xcYiBTaXRlOlxjZWxsX CUywsQybK02QeymVrNl cHJvdGVjdHtcZmllbGR 6LXsqFahxuI5asQKPAL BQRipOJkvzbxYbSI5ZW DMSOpTVRV16YrZfGJK9 X1iayConCeyowyOlpSN wPqLzsO6JyPhknJPZli Ndz1Z5DZHwMOjlb3mlI DJxIVbsz9JiLGrUASSD FU1ARP9daFN4MJaJPLO DRWnwNxXlI2hykPU0q5 tooSYrg0b9AFtfJSH8c VxwbGFpblxmczIwXGNl aEqgmJ33Iqdhvh32RBV cx2maGSNkwsqqSGCqfO JwYWRkZmwzXHRycGFkZ XfsKTv6zwAuFSYbksZt lJZwJDTdbtZ7ICClYcR kcnRcYnJkcnNcYnJkcn avSBfcelGqB0MrDDPtX nJkcmxcYnJkcnNcYnJk oifrLTxokqEoH1DvJDW sYnJkcnJcYnJkcnNcYn BdluxaEElpvxTuS0DgO GNsYnJkcmJcYnJkcnNc HeZnageyMArvckUbQ1G xXGNsdmVydGFsdFxjbG N4d9kyNQKdN2wtsYrRf RO9vVXhVTIaS0KfvBnl MzQwXGNsYnJkcnRcYnJ kcnNcYnJkcncxMFxicm QvL2GwULQtXiGgisarO nJkcnNcYnJkcncxMFxi niCmH8TrOJMiAzObgyE cYnJkcnNcYnJkcncxMF qfqjRaL2WhLGMvRuHai mJcYnJkcnNcYnJkcncx MUeousKmO8IeQUEqssK oxNJquMhmwRJ3r9eeTD NoC6ehbEqSqLQ0fDEpJ DOuF1PriZa7RQUbFMYs vvWgaG79ClaynDc1InX tIAQ7CYmuQWmaJRnwWR RlOlxjZWxsXHBhcmRca B49YasqHtKjwBVidTVe jSmlGwadrDN6JHqaAuk egS6ubUONIFDGQvvOUx zlkhWrFP2WIKOXQmODW O94XjGpIDH2LBa7gJsi ZmxkcnNsdCBcJzFjfX1 UF6U6TXFtRIoru7ykQQ MbIVsab6UvAVkSZKCDP G6LVZ7haML9NGnFPMLY YWknVyMoUbg4qGQ9q1l igMOkn3c8GTyjTFR3kM xwbGFpblxmczIwXGNlb MafaZ42Rxjcec84BAGr r5vjIFtyn0Kfs1sroEB wYWRkZmwzXHRycGFkZG mwFNp0llMrHQAyniEaz SLfVSQzriA5XQPoQkLg cnRcYnJkcnNcYnJkcnc eMAqgqgJyG9VoCUKvLn JkcmxcYnJkcnNcYnJkc mfuTCkydfVlE7FdMSEa YnJkcnJcYnJkcnNcYnJ urfyoDBiilfBsA2YlWV NsYnJkcmJcYnJkcnNcY xEdvkzsYUptlnGwE3Qe XGNsdmVydGFsdFxjbGZ 4g0xfLRIdV9mbkXeRcI P0uXDlGVPuC2XopTcuO zQwXGNsYnJkcnRcYnJk cnNcYnJkcncxMFxicmR qC4HdZKToLgSbcpgeTa JkcnNcYnJkcncxMFxic eJgW7KoSYSrSdFfxkYc YnJkcnNcYnJkcncxMFx sedYmL4EgZFJkSsSdtn JcYnJkcnNcYnJkcncxM VsmwrFhB7AjXYQmngAq dFCkvOjcrSJ7i2qcZEH sQ6uliPjIsFY8wVSzZA JnC4NnzQi2RVQhWYJas mOxsG59TfwvxJe0RfNk KLE1AQxgJTcqFLMzg1F dGBEyOwYbH6HacNslSE JkXGludGJsXGIwIEEyX JTvnVfkfI19Qpdcnp59 XHBhcmRcdGFiXHBhclx sJNLnRTS6HBL9FIgwXO Ndx36juncdskwbNPlxa DUuKQQeelNLk3Drg2yj biBSZWNlcHRvcjogXHB wyaf7da11YYv7nuLsZE xwPYKfgSPzFLQlN8u4u nBhZGRsMTVcdHJwYWRk ZnIzXHRycGFkZHIxNVx pwWPxLTA5WFSmOVHaLI ChTTA8OTReNgXzlkPdL VxjbGJyZHJsXGJyZHJz LVQmLHJ2ZUNtMmBixcH mMVxjbGJyZHJyXGJyZH PiPQSnPYK4EILdYvOnv mNmMVxjbGJyZHJiXGJy EYFyZZZmUJE7LXZpHkC kcmNmMVxjbHZlcnRhbH UbE3grqEFUqYT4cQLtF 7y0T4ggjXqcXFlqJALr iGv3GLp2KRxdvVOdCFY 9NZQmTGSmLWJeNVH6KB BcYnJkcmNmMVxjbGJyZ HJsXGJyZHJzXGJyZHJ3 MTBcYnJkcmNmMVxjbGJ yZHJyXGJyZHJzXGJyZH O2TVZjInSmolVzAFxee GJyZHJiXGJyZHJzXGJy EAE4UTPkJzQdktGnOVp zyMPtobAbnEHyS6biwA JFlNI6hXRdA8y0M6rou Zo9VVfyJIIrbAe2LVT6 MFxwYXJkXGludGJsXHF zHIXaVUrkWE92gDCjQS juB7txhgT6WIcrWGuqZ CJidoSltK80DiysfBXx rVVkeTecZshxsDC5WBs tHmxlaR4ptMLRZPXFWr gGNsntwhPeVM4YUTZUF cXVPA61EzSiEPX8DZb0 fXtcZmxkcnNsdCBcJzF ydZ32BkSbHCnJZPlaGH c3JFMdHFuzu6zzOPQlR Ygyu5GbTEiWAJWENZ8P UL3wuGA9ELaJOFTDVRs vVcVoTLb4tGS2h6zdjQ Snv7w4RBppPHW0aSayg SHxtqmvUGSrVnHoO7Ow iZgggnWpaTykz2lmuLB nc6RjfXJdlNFpOWu9es BhZGRmbDNcdHJwYWRkb EW6RZQpkPMbWCGqF1g7 aeOqKDMfQAHoX3oldcZ paZkqioLan4jpwdLgqm CnGEAsUFHpFhZrD0ggv gZfuZjotdVst6ajixEa yuUpRTKaGPMaObVdE7i zpzBzpceeziAna3vakl RydzEwXGJyZHJjZjFcY 1yaosMkIihgajUea2va cmRydzEwXGJyZHJjZjF nR8y3EVS4WNs4ILDkLq LwZ7gmlCmvXCQmc5kcX MHkSGc4GNmjWQzumOF7 MJLzB1hsjeNidDmnlmH jw9rboyCmpjSrYAWkPY VwOlDtI1gimeNrvJnam bGsq0xojpYcbyIvZCVn DVGjCmYoQ4rttbDzqav xnmBni2lciyExrkUcLN VjJTSfCvEfG0ixvsNeW qvltyRfg1pgemIvoeIg QPRrSUEtVcVcH9q9HQZ 6WYz6YBXnMuUqW0lkiT ijACPuk9hnWHMrWsN7E MfuVHricXu7CsDdxDNu ZFxpbnRibFxxclxpMFx cWPxrHKNoccYnoP98Wc jzdKARf2YqzCh0UFH8J DExLTEwMCUsIExvdyBQ n4UdwVf4TIU2BENcTHU gGSCwvEhneE91Rxircw 53VHHbd7nrNJVkhlbjS TBcdHJwYWRkZmwzXHRy lAVqMPriQGr3rtHhIJS txhXacGZgRXQxhbY5BB NsYnJkcnRcYnJkcnNcY aGdnubfDAubkhXtI6Oh XGNsYnJkcmxcYnJkcnN cYnJkcncxMFxicmRyY2 YxXGNsYnJkcnJcYnJkc nNcYnJkcncxMFxicmRy J2VfUFDdGjArdsFfCiJ kcnNcYnJkcncxMFxicm MqC1PcDZKkjtGeqWJtj DdlwKL5u9rkYZYnW6qe jYuTtLS1aUS4ZREoV6U sbHgxODkwXGNsYnJkcn RcYnJkcnNcYnJkcncxM IxqizLqJ2MmYIErYrHs cmxcYnJkcnNcYnJkcnc uMAojwbArA9WuDTMoLz JkcnJcYnJkcnNcYnJkc cepDRywckGvR8BgVQGw YnJkcmJcYnJkcnNcYnJ oatelSRqbgmDpK8CtSX QbmxLfaLQboBdcxNV3x 1jyUCVjF4olrVfUwQN6 uTL7SpJzV2DwkNk8DWZ hVOZotpTsyE50IbqkcA XomVSvB9VfdOhhPBEnB GludGJsXGkgUmVmZXJl keBdLqFHgOmbe12vPYR uSUfxIGBjS7jzMEN4hU 9sIExhYiBNZWQgMjAxO VxjZWxsXGludGJsXHJv p9c9ek85KQq9vdJiAjQ vWQLsvFGkFUHpD6j7ld BhZGRsMTVcdHJwYWRkZ nIzXHRycGFkZHIxNVxj jSGvJHQ9DQJfFOVvPBP yQFM6TIKeXxFgzjCjQJ xjbGJyZHJsXGJyZHJzX SJfMUA8AVNyGwYnusGq MVxjbGJyZHJyXGJyZHJ jMNIcRPO5DDYfCtEiar NmMVxjbGJyZHJiXGJyZ ETsZYVeCEO5CLTqQuNa cmNmMVxjbHZlcnRhbHR xH6zhgXCJpMT6vJEcC5 f8M1leaLscRHxwSVAtz Kl3RBt4CMhxbQFjOLJ9 KQYmWNFnPFNpWJB4LWV cYnJkcmNmMVxjbGJyZH IbIYUjLCEhRJFuGMO3B TBcYnJkcmNmMVxjbGJy ZHJyXGJyZHJzXGJyZHJ 3MTBcYnJkcmNmMVxjbG JyZHJiXGJyZHJzXGJyZ DO7BJRmHhJpmcVkQPgj vTTikxAhvMTpO8hqxAH OsJT9vHMaP0q6S8vkmD f6HLshBVCxgMl5DJV8G FxwYXJkXGludGJsXHFy DREiaPFwOuCwvLx6omc oO1JxcXvoJIEeANsupR YxFTIeHDNwq7NaX9F5N RMmDQgvp8pgYPYnBFru v5HnPEiUMNFRRG1QXY0 mjUH2OQkWIMIFJ2iQhV B4JBU1eUM4Ck06BRFnP SVgdHOcLYwiZ012ZX3q gXRqonX9ADAdWDplb3l xUDCkURaxt5KhJGtCYR IWMG4WMG6riHX6SClAX BYPXRzhQwPcXMs8uVE8 b7uxbHSid2i4XIhyRKM 9fVxwbGFpblxmczIwXG OdyJskqR98Hoagig12E EOzo4flCVLhmmcdMuOn dHJwYWRkZmwzXHRycGF jEDtsHXv0sjOgQDMlnb GybRIcTBZcgxZ5CPWcZ nJkcnRcYnJkcnNcYnJk ghenTMvsciAlB7KsCFT sYnJkcmxcYnJkcnNcYn IiyvhwLOmijoMwD6RcY GNsYnJkcnJcYnJkcnNc LwDpwmohVTpqhnWoH9F xXGNsYnJkcmJcYnJkcn NcYnJkcncxMFxicmRyY 2YxXGNsdmVydGFsdFxj aBE0h9cuQXXqQ3luyCb MoXH8vUX7WKArO9MkoJ gxODkwXGNsYnJkcnRcY nJkcnNcYnJkcncxMFxi ugMrX9MxUHXoMnQcwmx cYnJkcnNcYnJkcncxMF fwqaOwK9IaQDNlTyLep nJcYnJkcnNcYnJkcncx PAevyiSgQ9JzAVYbBzS kcmJcYnJkcnNcYnJkcn zmOBxmxnOyY2IbAVAig lQunGXvvUbvrOO4r5jc IBYpN7yasXiDhVR7qMY 2ZnEbS3HoqHs2HDLkZZ RyozQjmD87ZxlhdXRyT gXWIBRnIJ72RQJ1IJuz wD5nWgzzGUhzLCBqqjR fyS53DarnMuXlsPBhnH IjdRumNyigcYH3RSlvA mekuN3nlZOMVTGDCxsR LdfyvoAcWQ2CZGOCOkK NMC61AcQyVbI7V6f0fG tcZmxkcnNsdCBcJzFjf W4jPRYfT0OEBFWzVVGp a2MxO3Apy3txmJNyBIp gJxvajJCshpN6APnDRR QWRYvYHdIeDD3wNJdTX RWNWWuLMyl3cMveResl qiMglCAwIvCwwA68ZVh fSrrndAV4YIlsCnoivQ 5zdCBIWVBFUkxJTksgb sAeZK0RBYmCML1GbRg6 r6nrtRMbv7x0AMvvELA 8qNnodMNkgjoneq88TF N4RPPjCqKnFAR4OKCzI Xmqn8tmLLZuHKvzh8Tn RAeHBHZSMN3YHK6pzVY 9TElTVEVORHwyNjAyNX u1nRq2z1ttkSAih5y1H MnkEYB9gAkkfSOqzdqa wgCiGDSwyUvuwQ54Giu qwp26QHYsv3hqPEWbxS DjPCTdE3n1csNnNNTnR TVcdHJwYWRkZnIzXHRy cGFkZHIxNVxjbGJyZHJ 2AUUiVBHnPPPyLLE7DE BcYnJkcmNmMVxjbGJyZ HJsXGJyZHJzXGJyZHJ3 MTBcYnJkcmNmMVxjbGJ yZHJyXGJyZHJzXGJyZH A9ZOKoYyMfusPbIOzdm GJyZHJiXGJyZHJzXGJy JPI2UGIiRoMmjySuRLw qqMZiabXbcEWfG3ijxJ NNwIW5rJIvH9v8M3wfn IktKAjsHLQauWe3GIi5 FCgbvIIkZYF7QFDpELR hRABnNHP9FBFyMoFelx NmMVxjbGJyZHJsXGJyZ TOjMWSfZZM6RLFrJwJw cmNmMVxjbGJyZHJyXGJ kDXCpDZEvWDW5POReWu JkcmNmMVxjbGJyZHJiX BVcIFGsAYHzRIA3GNGy YnJkcmNmMVxjbHZlcnR fwVYcY8dieNNNoBR0zA RaZ6f7F6xorNo6BAojT NRwtJj6WJO2HGwtDHRv IGdpaTNfPYSlMUXwJ2J sbFxwYXJkXGludGJsIF WeRIVdw81xHS00DRXgb GuymF95Ysxral11WKMy i8azUBUecABvWHKcK6a 0cnBhZGRsMTVcdHJwYW RkZnIzXHRycGFkZHIxN JpwkIFhXXV1NEGdOVUl IBSlQWI9ILAxOaWygfO mMVxjbGJyZHJsXGJyZH AzYVTlNAJ7JCFsInMwx mNmMVxjbGJyZHJyXGJy HPFhBNDhXBV6ZCAgIlL kcmNmMVxjbGJyZHJiXG DwBFKhRVXbQGU0VWDrN nJkcmNmMVxjbHZlcnRh hJRoG9bmaMWSzYS2tMH xN4q4R8ijmOgkVAmfIS UhwTb6FMn3JMnaxTDeO ES9ZMXwWTOiKYXuVRW5 MTBcYnJkcmNmMVxjbGJ yZHJsXGJyZHJzXGJyZH Q9WLOfSeGlltZlMZkhw GJyZHJyXGJyZHJzXGJy RJM2JLZoDiInjlUxYCe jbGJyZHJiXGJyZHJzXG RuAZN4LJEyXrTaqaPwH UhvzBTtfwFadURyY6ew wWUYrQE0uFOjH4l4Q3w awSc3MPefFRMegVu3TP K2OPzeBORsOGubcKIvO HFyXGNlbGxccGFyZFxp mrDpcZvcjo97XKG2q0g maWVsZHtcKlxmbGRpbn J3ELqRKDJAYZcGDdGeT Y4vTXoWA6UMUFfKZuqd HaYlNcn3oGq5e5prrLQ wi0o2PVsiZGM7hOBrgB JvcHJpYXRlIGNvbnRyb 1wsPYKxHRXtvaRhTT35 NX2mRINdHIRspGpvSX1 1FBCoVZobq5uzMQCmHR ycn8MjVLdYYLOEDG4YL P5uqXO0GMhVHQECMRny UdXgLpx2dSr0z0evdNN zm2d8HLpdKFD7dVltcM FpblxmczIwXGNlbGxca H95Cdgkxx31BTMri4rg XHRycmgyNTVcbGFzdHJ mv5i9iiVxWOEbeCDmiF DhODQhxXY5NLOdvVLwX IQbM8v3gmDbRYPkFPAn S3gnxuTmfVsgpxAqy0y icmRydzEwXGJyZHJjZj DdN0hnabMkzCizxuYkr 1xicmRydzEwXGJyZHJj BrQvF1gfbiNyzpekmcV xi9iphsUwacIoRHIqQE BcYlNpG8nuimVdXwnkc wWql0ykdqJwzxOvTTAx MJLzOsBzK1c4NZG9WWp 4CBQnSmJkZ4besNlhVE Pfk6juDAYzOQe9EPzsY ZrtqTM1NXZwS8jartYt xYiypaWzu6szdgEqufJ pIZKsLWYvGgBaY4oewm MbjRpptkBeu2edihMuz rHyZTYwHHVlIqVmU2pb chLpwfscenYnc2jbwrK ydzEwXGJyZHJjZjFcY2 dlegAxVhpcltEyg4nhb mRydzEwXGJyZHJjZjFc Z3e8GTB0BAq4SKEzVxP kA1qprIhlCFFuf5mkHQ QcVmP2GPcbTPkhwSz1Y jBccGFyZFxpbnRibFxx ogooZNQ3RLurDEcrbNY vu2a1vKjiZ8NujGcvLB JkXGludGJsXGIwXHByb 9PhT1G0QESfCQoco6ip NSOmTUwxn6LyWDtOHMQ SZH7PHD4guRD7PHeSHL ZVA8xNfFZ2ZDZ7hPRvj DEwfXtcZmxkcnNsdCBc WyVldT8CxJQqavl2KUR fWBqqw2nzWZHfTCdnu6 IcDDzJDZRHDE1IPA7nz PR0OHqDOBFEQMdrWtJj VzrcEDmpEN44OYPsELD rgKYgRAycL468PGMgHA hgCXVdLwIuD5UiuQrtx kBtnDepy8fujOJpUYio SRKedRZoPZf6wDf1PJR uYdkcZZVmOXPjI7HspB Ecg87nQSWqA5AjbE4nA pvyZVWbzNHbc5SjoXCn nTGdJUa4jpMfUIZmaKQ aaGBtRJWxqCT9PFUwoX XhQBJrG8t0wcCeOHWkJ WZxA3vbrlDxgIcfsrZy b4khdtVvweNmZVJzQMZ aCtWpP4ucltUxjCqrjv Hwz4musnBzrrHnVHMdI FOaJfUhK2jdciFcbxay lcExu2rlrjHyzzSrDWO pNQOvKjHdD7kayiBiQs kfmgQhi1yubnRfmoNjS HNoCHNnLkTcP4s0IOK1 HNr9NFFqLqAeU2vnfDk gODYhs3wpIYBlBPnnRS eoWQnxkTF8QCKvT2aon yEwtZeqakDnq2juvjGi ixGrNWHsXSJySdXpL0r znbAmwArjukZer9ltqc RydzEwXGJyZHJjZjFcY 2uiwnHosdizfySgi4bx cmRydzEwXGJyZHJjZjF eS2leqfSfCjoutxPei0 xicmRydzEwXGJyZHJjZ fSiG3j9IEE7JJw8FISt DxVzY6hjaDooYHNhi3h nHEAnJvT3CNaeNQqgiJ k6TnUrpJVuRVmaulBgi FxxclxiMFxpIEFudGli o5T6STNmy81uPiOmM2Y sbFxwYXJkXGludGJsXH Yon3HhZ5K0WYJiMLynp 9keQGDuZBpcm3YhIJkN JXRTWO3GWU1rsVV6NCk DKVYHD9hYsRI4WFFjzP ExfDExfXtcZmxkcnNsd CLjVsNskX9GUjHwDpEo KQZcM2Jdw2gpoTMjBCp rNjdeeKSnukD5HLoKVF TRZFgNKsYpPZ3qEFdMA 9EUPyO2UxKwYTJ1IYY2 ODX0m0ttlCAqu8e0WUf kAFB7kZnzxWOcqlhnGN PgEyJcL3ConUelejXki Znlq9kvdTMum9OleKFu hZE2BPk8amTlITJfrTF xxVHvTLOsxVJ5HUVmrO KiUXMaN9o6ejJbQORhV KGyC7zqxrIxhMgsbjCc j5bkmzJodoPbESXeMFS tXeCcA8dqpoFcqWauih Gal8pinaIvkgLgZPCdY YEhNmNnO9aolzEerble stPmw4fjefPkcfHfWMQ lCNSeBdVvJ4ehbhEkKs bpqxLoh5klzgVydbMtA CJbILDiUdWkN4u1QKT3 AXd2BFGwCnWoX0kixQv tBFBel1ghTJBnYAnuMD alTRkwhFC2DJAaC4mco bFqeTtqerOps6kaicDu ssIhDRSbBYRtJqCxM7a xjpZhxYscflVfl2zuuy RydzEwXGJyZHJjZjFcY 8xicjUaahygkgMxd4au cmRydzEwXGJyZHJjZjF qQ4wqdlVaCpbkfrEyx4 xicmRydzEwXGJyZHJjZ yGlJ9g8XGF3WVq9FLYz QaMkZ1ehrWwnHDFmc3e tYQJmVrJ2HZmrBNnmeJ c4GkIxmAQzJMgptgCsi FxxclxpMFxjZWxsXHBh ooIzuU10RvhxvNGBa0N kmDs1RQD9ZJQkRKAbCH LsEUnadtUSr4NeaYa5N XR0CRPkOZGeC1HzoVbr ofAtkVlve3crfJPqb8W ldLExsKBkQKg2haDeYG MbcBIkwCCfCDSooJJ4H FRodGAyWUHvI9d9ppCb HQTaEDMaN7vcrgChlEn wfnQpx4aysiVkyxVjBH QyENUzQmHjH2sprnFos RljkbLxn8lfisUedkAd URUeHMArMkNoN0ifpkO fwawwrdWfg6maxwIyzd IxNFRbQXJeLgPyE8cpp kUfWfzmveFje0icdkIx zlWyLNQmXWRxNzKgO7x 6IVA6VRm5TJOxBoGnY5 pzpDctVJKhd5lzFBCpM BxqMBxdRMhrcEO9UOCg O7dychKynKnafsTcq9e icmRydzEwXGJyZHJjZj WwX1zbziNexTcfomGqj 1xicmRydzEwXGJyZHJj FsQbX3xvelIumffguwG yx3dxuvHvweYcHWDpBS WvGcEyY2kyawLyHsdwr rEmk0jajhEmqmNmYEKz EMJlFmXbT8a5LED1TVm 6RFLfBhQuC2bpvNjtJJ Pju1rzDMCnCfV0UOjbY BylmEs5WiUjfYEeHEyp bnRibFxxclxpMFxjZWx gQQKjokMdzB50YrnavC URFWBmszAnS1N0QZNqq QCcdsVqoCHovU3jABRv lNHHCKUma3pyUSGcDQ7 zDRXdULI5UZYcwBnouR 16Nmdzsa50WOOfj7svM HRycmgyODVcdHJwYWRk ZmwzXHRycGFkZGwxNVx 0cnBhZGRmcjNcdHJwYW UgusE4LHSvIiMrfvZnJ nJkcnNcYnJkcncxMFxi mxVgM3GvMAUjKbHtbpe cYnJkcnNcYnJkcncxMF bkeqHyX9DtPHBqXzXsm nJcYnJkcnNcYnJkcncx HNdplpLrU9CsLANkCsS kcmJcYnJkcnNcYnJkcn jyCDxzmnGcD4WnGEEck fOhgSNapUejmJJ2a3yg XFYgR1vrlIhKhTN3hTG 2JTNcA0RafIscMNtnEV NsYnJkcnRcYnJkcnNcY iEwxukuFCafytUaR3Hq XGNsYnJkcmxcYnJkcnN cYnJkcncxMFxicmRyY2 YxXGNsYnJkcnJcYnJkc nNcYnJkcncxMFxicmRy B8DoDEWuKhDpdmPjSgH kcnNcYnJkcncxMFxicm SbO6DpWXHpmuTbvGDtc XxhmMF0d5gjRDCnC2fl wFgFrVF9nKL6GTWhJ1K jgZe2JWGeXUIzetZhuT 50YmxccXJcYlxpMCBSZ LR0xEGtCbRgH8MwwHyr YXJkXGludGJsXGIwXHB bd3BqS6U7HJTwVJsvv8 pcJXZyXMumn9ZpWUeRS JOETB0JCR3lcUZ6OYdT MQLKS4gQbGU0NVDpuWU yfDEyfXtcZmxkcnNsdC NbVhHymV6Am1HukMe6O SmdJooawOJ0MJbsVqjy sO5ksXHZYQKSClaHPup isqUlFT9IRBNIDI8CqE F9RAWdaTBdjTBqpTzcC xrepoRozOEzPgKqjD0s zWgliR0yTmXbPKpcFWp tFXdkbSDhSZTrh1e4px 04EOh6bwPvLcszWTYih WSgTFRaG9r0quTsZEHv MTVcdHJwYWRkZnIzXHR ycGFkZHIxNVxjbGJyZH A4DOMqKAMbSYOcNMW5F TBcYnJkcmNmMVxjbGJy ZHJsXGJyZHJzXGJyZHJ 3MTBcYnJkcmNmMVxjbG JyZHJyXGJyZHJzXGJyZ XE4HPYcApYlazOrANax bGJyZHJiXGJyZHJzXGJ wMEH5BKNtPjTfamKlZU ibkMWzlcPssMYrN8kyg BMSaWT9sMIaQ2s9E5ga aEcwWHpuTOMwlSb7QUt 9QBwkmKHyFRR1CBVgXT GeUDJeRZU2NVMkHuPvc mNmMVxjbGJyZHJsXGJy KABzVSSyCEA8YBPvCxY kcmNmMVxjbGJyZHJyXG CvUAKgVANkFZJ0RDOrO nJkcmNmMVxjbGJyZHJi JFNxXJAbODXuOBU5EZQ cYnJkcmNmMVxjbHZlcn HfiWLfK9sjqFCQdGU7t FEjR8x2M0vmxMo4MLvc DDAjeZw7LKW6DHkpITP kXGludGJsXHFyXGIgUG QcQ8OjsMVFiSDmhfieC paqR1TidXviAEYfILha mHPbBELiNEByc1HkE5L 4BPXbYUrev8nqANKjTL aqy2BuRFlUASGFRG3BB D2abCT5OGlCGZFRP9rY vMV3RNF9fQKliRUptFn cZmxkcnNsdCBcJzFjfX 0dMZHlA0XVNXVkVPAgp 9JmG5Kye9ibuKChSVle NmspvCVnebF4KHoGKCC YJHbSKjHxOV9yPHtVGZ MBVApOLdtfDT71HTVnD WEghFDdPCutC356GFk7 VYZhQFumy5nmCLThRMm sx5DwCFoCTUUGRO3VZV 6bpZR7N6zTXWLMQYhqZ X44JVKbAHKttXZtYAxk I667MNKtHBaiVRWns7J yP7VfBrYyNNGwDIkrQw xytAR4BAkiPqcxaB9zg CBIWVBFUkxJTksgbmFt CG1JBKDQPQ7ArZM0WKX 1fDEzfDEzfXtcZmxkcn OupQIhJyZvqI5hpSpyd F8aHkQoYRmdCSddWSys dHJpDOIvy0j2ww91PWz 0cnJoMzAwXHRycGFkZG IcS7x0jpReCBAeQYFqb HJwYWRkZnIzXHRycGFk XAHkXDyciQFsLTX2PZL cIEPdICZkKCM7AVYyGl JkcmNmMVxjbGJyZHJsX AWhTLPuVMGeRJC9JYVg YnJkcmNmMVxjbGJyZHJ gYSIsNUQyTMKyOZP5TU BcYnJkcmNmMVxjbGJyZ HJiXGJyZHJzXGJyZHJ3 MTBcYnJkcmNmMVxjbHZ exnApeGCnG2rzdDCMhE I5jKNeQ3l0M5xykHzcX JlhATHxzAz6EZn9TFhe fNQwSWR5KXJlMZByWOG hCEP4DEGwWdBufeQcZZ xjbGJyZHJsXGJyZHJzX ERgVXS0GSOsPqEgttRn MVxjbGJyZHJyXGJyZHJ yMTPnFCJ2MCVkIjSjxj NmMVxjbGJyZHJiXGJyZ VKmJGVsPWY6GUNqMrTx NmMVxjbHZlcnRhbHR tS6kruZYDaAF1jHIeP8 l4Q7heaVx1FKwwEKMzr Na3YXY2CHkqMYQsWZyn sWWsQQEeUFUsF5LkyCi wYXJkXGludGJsIFNlZS Ysz54lUU49XPTxmQoam Q05Ccqhqh92QZQoc0cu XHRycmgyNzBcdHJwYWR kZmwzXHRycGFkZGwxNV o0vsRgDVMkqxAlqHAvL IZxrpR1XCEaLvTuejUw YnJkcnNcYnJkcncxMFx lxrEsD4MpUDYmViJlfi xcYnJkcnNcYnJkcncxM SrnspIlT4UtLKNnKbMt cnJcYnJkcnNcYnJkcnc hERsyauWsX0YuUWJjIz JkcmJcYnJkcnNcYnJkc vneGTandwAoM0GxXXWm ndNlhUYqjRzqoFV6x6w xVXFhQ5ucsEoFtNA2jG T9NVVyB5QceHpkGCtuE GNsYnJkcnRcYnJkcnNc MnGytlhhFYyguhEgW9B xXGNsYnJkcmxcYnJkcn NcYnJkcncxMFxicmRyY 2YxXGNsYnJkcnJcYnJk cnNcYnJkcncxMFxicmR fQ7ZeMQChIkMgnsWbBd JkcnNcYnJkcncxMFxic iTuL0MdZJOtjvHzbWFp qChpkBL4n1ybOYWtZ6d viZdYwEG5cBG6EAFyX3 QjgVi6UJClJTIjzxNrq H18VobmrBKwR5NkqGgz PEJhEHlfbEAeABQfd7O yN8Z4LHMfYFuzs4lcLJ HoZIldv5GxNXrFHJJMM S7VRE8xaCY5BPcYICRY U4tQxWL0DAH7lET5eOE 1fXtcZmxkcnNsdCBcJz XcdF5MvVTzc2DwePV9N RJrs599bp4gnsOlhwDp zFJar9WsaUAxjjR7cWB ki6svUGXxu7vngSMsWY mpUejvuWUwzuP8BLvHW RPKUBnHGfDuEX4nRQgB P3WFXxH9CvHzPsK0XOE 8BCK6h5smeAKpm1k0ET ejUDW6lCzfgKNkfsjvl vWuYQPuaFmylK07Rnvs gj63HSVld6neHFQlaoe tIdXojVOgzAIzl5s0mv BhZGRmbDNcdHJwYWRkb OO7KCBdaMSzUNYeW7s1 ayBwMXLcZCMiL2aoahK qaQrffiFqc7lgmaOdgj AoWWBqMYIgUrNrW1gpl wUivCsvboYze0papvJj plBfNAJfNQNpJdFoE6u jgwTikxdokiJif2vhpf RydzEwXGJyZHJjZjFcY 7pbebXfWkpqtmTgp8bw cmRydzEwXGJyZHJjZjF jC2q4KEH2AHz3KYZcKd FaD7vcvVqjXNQyq5zkN TLvCWb4GHcpWHidaEP5 RDBlO8anntQyjCxuljA gk8xvtcHirpEyFNFeAO EtThBpX7suwjJvbIbce dAyr3pjdrBsuyWjSTSu WIVhDwHtL3qtrmQhdet hguGvd7osfeWdybGbPK LcXIZfYlPuW8qszoGuQ djjddTnb4xbimJosxGn FFHtFQWqThSyT3i2WLA 0ZXt3IHGvEpCbD2blwK hjRTTez8omIKTnSdP4F DgeLWelmSx8MfZgqLAa ZFxpbnRibFxxclxiIFN 8HQeicF7jHAnvyHMub2 h1bVniB6YjeVtkYHSpS JelcGTkZTRwWZUtj3Os A1R5YCKbZPovr6xeDEA eJBcxd7UmYMeZKORYMM 8ZIF2csHQ1UEeXJXBLF 2sXqGW7AHYcoNJ2tES7 fXtcZmxkcnNsdCBcJzF qmK0VvOIndsh0IQSfDA uso0ddQHFsRVhft3MfD ZxURSZWVG5GMH2prBC1 TElTVEVORHwyNjAxMnw qLydpGh74JJNmUZVlvE NsXLtnC027TCEaZJngM KNcOlLsL2CkeFzlraNh sAbdk7qynHNnKTowGRX cnFFpFGg5sAr3AELtQt xwYXIgSEVSMjogXHBhc sw5nu23QEy2waDrGXUh oETovVIcHXBkbUV1PDU vzNBmEEGaH8h5kjWrCP NgOKOhK4einmSxzWrqa kAqg8lvxjIrwyUeNEDd NPTeTdDnS7bijmMlwKr jnfQnx0xbtaZeulDhDJ BnFMVbMuZlR9mrzcTwa nbazfXjp2rhmyAbmgPj KMZkJXBeJaFnI4tarmL mMbdgvmIvf5okdlRktr FrBNSnSPSoCwFpC6a6O XS7AQs6MIErzBHjaZQ1 M2uwxVdtTDpnxJU1i4k nLMVcQ4cytIwIlVF9aE j3RDvcG7EacBq5YEi7V XOmyvCgaA95MunxpFEj cDJccXJcdHgyOTcwXGI rRMrhJ8FnZDIprWvib1 B4MGPpz76tMvveMQL9N 2GdvBihyn3mHAD0oSEt sLHaCQXxvu0fsQTaSLu ktjBanEgqiOJxUtq5tF A3XbQfGGP6AQlVIC41A Y6kZDFdkSv4BZptFK4n i0GhCZudv9sus77ex4W 0YWJsZXNccGFyfVxpbn EpdJrcbOKeUjt0MLhhp mVzdHRhYmxlcHJvcHNc xEJad1UijQOreFFxm6c 0cnBhZGRmbDNcdHJwYW JklQN6BEUtkQQaLBOuQ 6y8fvQyBQQdACHgQ7sj wkEewXdffvMgv1tpmsK ydzEwXGJyZHJjZjFcY2 jevhErbRqhutBxh4itk mRydzEwXGJyZHJjZjFc W4zkrgRwspufkeHem2n icmRydzEwXGJyZHJjZj ObS5iochTnKgzlecTsd 1xicmRydzEwXGJyZHJj NoKgF3f4GGK8ICr2RUY wCcAtI4eusXalKBNjd5 ydFDZdQBZ8FYowJZeeo FQ6IdZyM9mdsoWxpXpo ihNyq9picyDpwsWaXDB tANCkUsJeU5ygyoWhxU mlbmMcu6lchnHycnKtG LZwUWCiGaVoD3xetmZm erdgpkDwh0ybjiDxxjD oSZNnLKPcHtMeW0ahuq NfUbmwodHux7hcgtXlu nGiDBAsHMHvMuAeJ5a4 VVJ7ZFn7LJNaMaCzQ7q lwMerNEKno7hjWHVvQs jnZDgjQPwqkUj1HjDhz eJumVApx929DU1nkvOs qYEoXgvko6ueKJU7qXb wYXJkXGludGJsXGkwXG NmMFxjZWxsXGludGJsX YYmw0a8kh99TKu6mzZi CGMpKNi6edQtGSCseTL duPZkAVYqjHW5YCTcsD SiQCLaO6n3gnFzPPIkG LCrM7funzOlkGctzcAv y8bpeiIzpzKaXYFlVZK oVtCnM7gnvnRzfHlkke Ihr5wbbiOttiStJACgN RPmTfBfU8ivzhKjhwai keUkv2bimxEddoUlCLQ tGYRyAaOpG0vrrsXeUk cqjzYuy2ondxFpmuDzJ HFbARZcQoHcV2y4MLW7 BHr6NSEahEKkqHR3M1w yaAlwKVlceBU1j1daFE QxL9tmgMcXbBM1dAz9C WepV2SiqYx2BEo9BDLh bkDmkB02FnctdNWiiOX zuvJksDTqcMq4DY3vgf BleTLdGxhrn8ktNXV8I KSlvxRdmS26QkwzhZIi jMZxxLakCtMvPL2btFV cxyOaV8JqFXUlPPUePN Qvq9KpSIczsKtiR9auL 9GzTcBaTN93rUMqAN8w tATzQH7zKOF1DQiyrK9 xHOEfQXYqqPOqK37enD kvxQZzRVgtgCSdp4YrC UHxHYG1dRNwdR8iYsGl PFAgGiO8bE1gceNnCMr fhfLkS7QigzWkDmwfIm QiFuLfHZApaqPoQ9OfN XMgYXJlIGRlZmluZWQg ITNtiMdre8Lvc1i9qKI ubyBvYnNlcnZhYmxlIH N8TPatfR7hJAUdddCaT H5unbVxIRNidSPemcay DmT5yZE3UXesLUqgU62 hsIlyyQKiPD8wICqdUF LawJ05U9VsnsYpvLBtT OMxPES9iIKyCMGxhnMj w8z9yGqbWMccf4ZuxGh uarVsnjKgbOPktFV6bj JcCFIak9XmeQYhd3TxP 4WywNMaIQXmq9MlHUSa LK1zWOgrO79xpSgchZP dfJUtFxHpykQxp6KlrD 5pbmcgdGhhdCBpcyBmY UeefO8xSLRlhFkpzSRt W0OgaOitpLThZQ1kAJb pdGhpbiA+RHHxTZ5tBH Z8nX4vOTKjxSfcMVkZH 29yZSAxKykuICBFcXVp tr1rVGgus1ZfrE6sRYE kxs5qauP8FUDrCOUttl BlraFszWmmk1Qyg2o0z EWugGJpvB8bSQKnqcXa PVifzJZjCoJsmoNvv6U zpY5rpcdgkLglcUQeym BpbmNvbXBsZXRlIGFuZ VMybuX8XRUqOX6oiN4p TXXdpRZgWP3gENedaZz pbiA+XPLaFP6pFBT1pH 9ySEJgbGkwSU6nAQJvj XBsZXRlIGFuZCBjaXJj nD5gIJPdgwPnJPnpvAI vOiCbkbMsu8CeuW0ijd cgdGhhdCBpcyBpbnRlb jMqMPDlSMU6jYTqdC2d vKOgxfK7qXBqKT5eZCN xdWFsIHRvIDEwJSBvZi V5qE7csvDaPYnzdvSlO 2SylcXdTlelJgrfBJS9 T1TozZwugd2xOYG9qYP ieRVuFVSkcy5ruM31Ro oylWOplON1k8bfQT6sj 3X1IUDeJKSzg4BgEKOh u6dwBRXoiVBqBJTcG8y 0cnBhZGRsMTVcdHJwYW RkZnIzXHRycGFkZHIxN ZswaUVhJRW6KIHoLLXi OEXrIKG4ADFbGkVfbkO mMVxjbGJyZHJsXGJyZH CeGDCrXLD0FZDkXnIyn mNmMVxjbGJyZHJyXGJy BJZdSCTnFON6TSEvGpL kcmNmMVxjbGJyZHJiXG WlDBOxVTIwCGS6UZIbP nJkcmNmMVxjbHZlcnRh dCKrB0tjdDAWmJE9uTU yT1d4R7gquIpcFsChD6 EymTmmRqReT4lkunBgh SyjbwKmi9obypUxokFk DJNpKOZbSeLhI7ytedR qeJswluPgp0rbbjOxws BuSOCtLBOiVqRtE4ssc hEfjsinxuIuc1diloUh eaCcRHEbIPOkTnDxC1z yzyFkOivqyfFwh3onuk RydzEwXGJyZHJjZjFcY 1x5BWJ2QCc5UEGbHaUt P1gvwZrhWDZiv6xzTCS tDDO6ZLtoJEjlvAz1Cg OpuaLosBNzd557QU8rc lAzuONeFksso2grIBI2 fVxwYXJkXGludGJsXGl 0YXAyXGkwXGNmMFxuZX L6K6PabIqlqi6bLVN6u VVgyFDbYMPpqz9neDWc ZFxpbnRibFxpdGFwMlx pXGNmMiBSZWZlcmVuY2 U8SHwewLUuQEY2DOBuN yAWFBBmdB1gO07fm0hw MiJ8LoPyOG4oGdxhQcL kNRduJOO1B6JacFsjzi 8fNUK3zJUcmWNpBXUns p7pjZ74JrjazJQxaHR2 l0exTP4hb0H0FQCgWYW xo1FjDOTtp0axFRigg3 Prv1zqsZPxVNJhCeovN ZOxbKFgJPirATf9jiJc ZGRmcjNcdHJwYWRkcjE 1XGNsYnJkcnRcYnJkcn NcYnJkcncxMFxicmRyY 2YxXGNsYnJkcmxcYnJk cnNcYnJkcncxMFxicmR rQ1LnXKFlTiXlzbEiOa JkcnNcYnJkcncxMFxic vZfD3KlCIRzNzFhfvWm YnJkcnNcYnJkcncxMFx fdlXzK8EuOYMjulApoD HxgYdcyBJ8x7pcUPSnK 9syxHmNzDI3uXR5ZCds XVdvhFP0UMkilETjVNO 4TTFfTXWlHTKrRJT6ME BcYnJkcmNmMVxjbGJyZ HJsXGJyZHJzXGJyZHJ3 MTBcYnJkcmNmMVxjbGJ yZHJyXGJyZHJzXGJyZH X2ZBNsFpCkkcEeJInrd GJyZHJiXGJyZHJzXGJy NIB7LAZoPrFyzkTrTRg otAOlqzEfoNTtS3aqdB PPeYU7pUFhW8a7C9whn Li0KKzsMWLydIv7KZUi PJvpBYD6uo64mZopuq7 wGPM2iJCzcCFuQNYnbq 71FIGusiKfeG17Kellc GMhF6BjEWTwzWmvbZ37 Yqhqmz02ATBao7zzIBO ycmgzNDVcbGFzdHJvd1 g4jnRiRYPvkZHuvSYiZ VCkxMA6TENljDZdEFKi F6o7dkLvNGTaUVTpZ8m tkqBrnUuvmvAat8aonv RydzEwXGJyZHJjZjFcY 0cqftTpoJtkqpNun9gn cmRydzEwXGJyZHJjZjF pY1ppexMvqkfdvaKrt6 xicmRydzEwXGJyZHJjZ nJqF2gmbjUvQvoiugVl b4shclNzohKlYWAiQPI fTpJsE2i8VBU7WIr2VH PehEEmcMT6V5jzeWmmQ SpvmFA1e1tyNUJqH5yn wTtZqKB9iFc2SIzgT4N bjBo5BGm8DKSwqhTntX 50YmxcaXRhcDJccXJcY fgvMkFnPfKenTh4jxnp ncZmuAOqmLg6FM8vttF dpQIxXlhcv7evWGQ6MN DfvmRvtD89TwjubAHhq OGrKhMqO1UoZJQqp7Bo I0R1RGIxTQfzh4zgJKW wOHjur2ZwOOgOREBCRH 3FMU9nzVU0AFmCBMAUL 4cPsPB4AYL6rHP5gXS5 fXtcZmxkcnNsdCBcJzF cfG4EKFzmjZd8ATqbSz glgSN9XLcaUerwzG0bp CBIWVBFUkxJTksgbmFt WF8ZZEEVGV1GsNI6IOR 0iGE1oDS7xSoqAckyru VgiGFtTuVbfJ9dpDxhn Y3iZnGgZTbySZH4V0In eOfqni2vDUG3kFOrnFE dYCDeww5euF98XltkmX HglXK1p5crYU0vb5I4U JSdQPKjm4DtIZWor7cn XHRycmgyNzBcdHJwYWR kZmwzXHRycGFkZGwxNV y8hhQiONTlqaNzyQRzX PUtoeW7MLTlGjRlgzGl YnJkcnNcYnJkcncxMFx gycOkL9YiCLQhYhIoyd xcYnJkcnNcYnJkcncxM UbvmjCdC5LyPQPsNjPa cnJcYnJkcnNcYnJkcnc bKGczsdTrE6NjQYBdXt JkcmJcYnJkcnNcYnJkc ykqXDkdibSmQ2NaBBVf okAquYHarNezwPA6p0g fDVCzL3ecwRpTrHW9dP C9VRcaP1OxiZdsLEdqS GNsYnJkcnRcYnJkcnNc UnFhmoeiOBzbrdXgV2T xXGNsYnJkcmxcYnJkcn NcYnJkcncxMFxicmRyY 2YxXGNsYnJkcnJcYnJk cnNcYnJkcncxMFxicmR vJ6NqWIXiGkOcuvKxKs JkcnNcYnJkcncxMFxic zTdQ0KkDNRnsgOfbCXc vMwskHT4k4pdHNXiK7e qkFmQkXK8kUC6OVexG3 PjkYw8HMBhKU0vu4Tzg 5k1s0mwa78an1T9UZDr ITCxwZDjjE9muKSyGMa pbnRibFxpdGFwMlxxcl kaYZOuXeFAQCWdJD78S II6FZtqtN0qZgefBWH4 G2EdyChyhr8aGZR5qCD crIPcSIDafv4ewSXeIV xpbnRibFxpdGFwMlxiM FxjZjBccHJvdGVjdHtc QyqkbEX2ZTpqYvktiF5 zdCBIWVBFUkxJTksgbm GuOT4OQHFOJcPVWA84B oBjVzQ9HOl6UHv3s5wy vOHlu8g9NJyxKDC6cMi wETOiUWL0POtxpA1bv2 xmaWVsZHtcKlxmbGRpb aP4FTxPQNSNEOnYNoTu PS2vGZsIQ3TRUwP1DwO zPiO2RMj9IWc0o3chuV Onc4n4JHyxKCA2fRdnn VCcsfgfzoOiTT7iu7Bf OAdie8chv05am7D8MGD sZXNccGFyfVxpbnRibF acaYXxCky2MAzwvyIfk HRhYmxlcHJvcHNcdHJv q6DzfKLqNHXuKyyxMWW gqGQvSWlaZHx7pxKcSA GfsgDevOVrQHXjloU7O GNsYnJkcnRcYnJkcnNc UtNjpymoAKthrfTpI4R xXGNsYnJkcmxcYnJkcn NcYnJkcncxMFxicmRyY 2YxXGNsYnJkcnJcYnJk cnNcYnJkcncxMFxicmR vL9KnGWKzYgYcghXkDx JkcnNcYnJkcncxMFxic jUjR1FkPYAmsfGcvKXr pXhsvXC2m7aqFSHrM7m bnWrEePH6qUZ8JIcyL6 VsbHgxODgzXGNsYnJkc nRcYnJkcnNcYnJkcncx LKvqabXfY0CmHIFjQbA kcmxcYnJkcnNcYnJkcn ynYXefplHfC7HlZCZdU nJkcnJcYnJkcnNcYnJk mahjDFqmfuIkC5TeQCH sYnJkcmJcYnJkcnNcYn KgogxfBJcqrcLjO9NvM GNsdmVydGFsdFxjbGZ0 k6hySYNlL0lyoHwQcDP 4bEB6YMlkH6FgwTh9SX ElHK5rw2Olr4i9u7oaq 48ls5E5CQIpBIGvzUIc xG0tjDJzVMtpsyJlwBf wuMBeSarbfsrnUKT6V8 MjxWqsxx7sSDJ2hIHck DIlRXCtgp0smXRnIMib bnRibFxpdGFwMiBTZWU bP51qlUNwmFccFWB1D4 JxjRonjm0uSCO7bZEnz UBnWRXlfu0pgZ63Hzmd mJEwwDN8l6pgTT9ip8B 4AJPgAUWea9InJSCoy8 ogEETzmXFiOPDxI6w3p nBhZGRsMTVcdHJwYWRk ZnIzXHRycGFkZHIxNVx rdUVxTUL4FDZyVODnYN EfUEY7SUTlYgGkugPpI VxjbGJyZHJsXGJyZHJz VUOqNKD5LTQvFpZrnvS mMVxjbGJyZHJyXGJyZH XxXDUfJIS7NXSpMlCor mNmMVxjbGJyZHJiXGJy WRJaSRYrQEM2WNErBwU kcmNmMVxjbHZlcnRhbH TmC4kzqPKUdYT6rSSjI 9p6C1fvwPwkYNg0OHWt hGz0KLj5K3ntdYChNIH 6LKGaXPCoZOIpHWR9JO BcYnJkcmNmMVxjbGJyZ HJsXGJyZHJzXGJyZHJ3 MTBcYnJkcmNmMVxjbGJ yZHJyXGJyZHJzXGJyZH U1MGOxUkPemaGzPLgpk GJyZHJiXGJyZHJzXGJy ICC4ERYjRjGxwcToBNt tdRYzkdMkrIPtF0zhxC STgKL7nNUjF8y3D0sdj Su9LSK6DCEzrLc7YDLh XUiaRGH6uy46gEkkkd7 nIWZ1eJVwuOJgBAUfnx 07PSJhptVufZ92Ighjn XRhcDJccXJcYlxjZjIg D9AuvfZ0YX1cu6DtSLu jo9pzp79rr6G0GHQkWP NccGFyfVxwYXJkXGlud NVeSJv0WXGlEJLxPGJm ZXprob28WUK4o1xdaDR vUCwdKgyvhXGtqaI7MY lIQPCNXOoDTwYdMZ1rI EkYR2UAHSeKCoggWiEz QYsdHWxgQT46DLFcZJB fvYNhVUleS233YPpgRj kyiHM9LEguRpujzL4ou CBIWVBFUkxJTksgbmFt GH1ZIEASFO4OkGI4BZR 3gMA1xPC8pQolHmfxer JjeMVeCbQjoU8khWevy S4sBcEbKOarAFU0P0Yh tGmuhi3sIXA7oMXesJS tFUJimo4jgD22MqxgvA LtfAW6v1epGD7sk9M7B IHmFYHsk5DkDAQsr1cf RCGovEKlLWScM2g3odX hZGRsMTVcdHJwYWRkZn IzXHRycGFkZHIxNVxjb YGzFYK1CBWbSIMtOVBl LSN2NNSqRdRabjUmYQb jbGJyZHJsXGJyZHJzXG NmAUS4IDNqHmZnnkVgM VxjbGJyZHJyXGJyZHJz DXRdVGP0BDUpOaMrujL mMVxjbGJyZHJiXGJyZH MsICHqSNC8ZVYfWhTrv mNmMVxjbHZlcnRhbHRc I1fquBMFfSM0qSRpH0k 7V6mhkVicLIc3IMDdwL o3MHr0K7vebYItYTY3Q ODiATGqHECkHKI0OFEp YnJkcmNmMVxjbGJyZHJ vDBIvZDPgIJYnTSV9YF BcYnJkcmNmMVxjbGJyZ HJyXGJyZHJzXGJyZHJ3 MTBcYnJkcmNmMVxjbGJ yZHJiXGJyZHJzXGJyZH R6EAXsOlRmleElSXesw UOfnzYlmNWwG5stnARY oIU0hUMgD6b5E3iotPl 2FKN4IARhuKq9GWZyLA kvTYD6sn68kZtxup1fI XZ5sNGwgCCaMIDrxf41 KUHsrdGdwY74ViqstNA jkIUceaEsiHCjnDg4AC 4sfcIgdUYsMpmev5dbR LD8MCOpkoNxbQ72Swxd sKGcjQXrN9KsPOKjkU3 hqeEacbAzdHSpxLi0FL 5titVnjTTcMvnld2ioJ UL6NQtatGUzCJp7DEMt m9jqOxzjDLX9rPRpgBV hnw2hr2q5at43CWo3uy BhZGRmbDNcdHJwYWRkb SC8YFRfuZVwJRPsN4l3 eyBiHYWpLYXkF0ijcfX ylVpnxlSvj8kexkGuri FuWUAqRRRgVdQzE8ene pMoyZmteyXjo3kmopYx xdCjBUXoRLHwDnFkT4i aqmJkgxbmzoDbh2ffhw RydzEwXGJyZHJjZjFcY 9zceoIzYkxmzgLfc0gi cmRydzEwXGJyZHJjZjF qA4v1SXE9TEg8SHDuBz DuM0quaUljVUJko1bsK PWxYRu4DXllXZnujAS7 CJKeU9gybpPulUdmwdG ul1aoxbBnxfDpOXKcZI JhRbZpP3lbfdYghWmco mGqb7bbpdDkitPuIERk BIJqCyNxJ4bwxrOuugb pjaExd1zmmmRudaOiPH CeCNPsXqShL6vtixWbT fxkxaJtz8rtuoCrwjBl WAGuFVSzRoNtA4v9UUR 6EVe2BPXeIjMaJ1libX ovVHGsm1xsGVWsXpC4P 6woYGvlwMy7LpMfasEf iLOgs833NM4kvhGlnFC aFldxg9usWEA0bMjqYN VgLXpjmQYlOFh0MOJpO GFcCUMoU7AsKSZET8ir RXZhbHVhdGlvbjpcbmV xzDYzpNt4BD4uhvSmiV VjSvpjj3qwOFA0HKSqq dKybZ25ZlkghJGyvSTi JyIhK3BbLQNky3HvP1J 8RAUqZClru7gwSFAyEL kyk9NeWPlJWEQNMR5XK V3ddET2EIrGVUBNL2oF jUC4NHL9wPAhxUGhgJh cZmxkcnNsdCBcJzFjfX 0ZQlwlEepQXYB9yUhpH T7tjNFuDVOinkZcrVH9 BSD9YBDiAFavo1dbUHZ bFQmez0OeARzRHANWCY 8TTR9vbHA3EHmUXOSOI PmeVlNeCOisPRazVO58 JCTjZURqwMZaMRrqN18 9XHBsYWluXGZzMjBcbm VgeNDriRx0TY2qsuYrp NIwHqkqg6etVJR3LMmj pGJjPXk8STOxq6vwEfk fUVA2mNOewFCafd2mz3 y5ti82PUk9ilSuBsD1X Ygto6Xst3bdvCDeOAYp ZmwzXHRycGFkZGwxNVx 0cnBhZGRmcjNcdHJwYW SfybX9HZIeLhYfuwLiV nJkcnNcYnJkcncxMFxi ezZxM3FsWJSgAnQqbaz cYnJkcnNcYnJkcncxMF hjsjOzY5NiDQRsIfXzs nJcYnJkcnNcYnJkcncx CSemysDsL9YiYAOfMjE kcmJcYnJkcnNcYnJkcn xdKDkrpcRfV0IwRYKgu zNuuAEycHtxiXT3x9wu DCShX4wbtQhRhEV1hYP 0RZtzR8ZcrVpeUCekHE NsYnJkcnRcYnJkcnNcY gDzhsxwGSkcmrLmR4Rj XGNsYnJkcmxcYnJkcnN cYnJkcncxMFxicmRyY2 YxXGNsYnJkcnJcYnJkc nNcYnJkcncxMFxicmRy P8PoJGKzJhMcfxQfMvJ kcnNcYnJkcncxMFxicm LqK5YqOFZopgRulCYzb BgnbRS4y2nnPGTzI1fj iLrYhFZ3qOE9OBkcZ9O fgRb2BWJjCA4of9Egh9 c4e0zou93iy2I5SXJjR HLpsPRqgK2paDVxMRio bnRibFxjZWxsXGludGJ lBBVxg1xmLYDrIMU9FV L9NHscEUOjvnOZUN34B hguFHIurmi5go35BBe3 cnJoMjEwXHRycGFkZGZ mD7x9htCkNGUhXICjsP JwYWRkZnIzXHRycGFkZ AJjZKdilPIwKKU2KEZm EDWvRWOmEID6KEDeLaI kcmNmMVxjbGJyZHJsXG ZeAYHiWOLhNYC5RJCcD nJkcmNmMVxjbGJyZHJy WJPyQODyLJAfZNY8IYW cYnJkcmNmMVxjbGJyZH CuXOJqVZRySITxCDT9Z TBcYnJkcmNmMVxjbHZl glBtsCVtK8gdeQKUzYW 0mDQkK5m9K5okmFafUZ swQPRwjUa0YOr7DGnkg UVjZLA5SDIlPWEmZJFf BYG5BSUhPkKoxyAiPTm jbGJyZHJsXGJyZHJzXG FxOQB9HYZrYeVbvpQuS VxjbGJyZHJyXGJyZHJz TDQmKDX1YXSmHfItbwH mMVxjbGJyZHJiXGJyZH CwTKJoXQR7HODwXoUvf mNmMVxjbHZlcnRhbHRc T0cpfAVWzDI0mRHvD5c 5B8vmwRi2LAnkYHEdyV j4KUN1ZOwdRUWgNCzbm AMcDQXvDGKhTUlrXK97 oRUlAHxcL3tcueY3FIy bVQxwWLDhduRazE74Ug wgTUlCMSAoREFLTylcY 2OxtKwyyfZizTbcb5cx jHViw5PqkVYywSFbIJo 0cnBhZGRmbDNcdHJwYW FibKJ7UGWlwJUxHBOoT 7p4cjQnKWPxUSDiF6da taQmcCumegBdx8qpetU ydzEwXGJyZHJjZjFcY2 psizGayFrwswShl6ukk mRydzEwXGJyZHJjZjFc J6lpoeRmgihhcmHxg8f icmRydzEwXGJyZHJjZj HkT6lexuWiNkxhulCgh 1xicmRydzEwXGJyZHJj WnQuN2n5QJM6CKc5IGW sNuWhZ8zvkIqkEZYvy7 lzZLWrWAu7DBylPIaoc OP3YLBdR1cwpvJtvCgu teVky2bxloZmuuBhQJS oQTGdRtQjS2wufnKjtD dqvyZvl6vxazSyynBeU DKvVODiNbFhQ0ppngKg vhtdxeNly3fafuUcroA nDLIcYJOoZzQeK1ptpf HgAfntdlMrx5jrujGif zSkCANsYUAbHtRpH8v7 BAI6NTl5TWVuTeYqG8i cwBodWKGkz3gaCCFhUt O1FJyqPUmjuPp0DiPwc GFyZFxpbnRibFxxclxp MFxjZWxsXHBhcmRcaW5 2UhvimPIAw0goMB7saP FedtDsDCB6WGxwQWAQm 4BxjpQ1NMZZs4ZhzWc0 IS9tNBvhAwKnBTQSxDj wLWBfq2o1kTTbVJ8lJy G1IBgwJArxRToyqEWpA WSzx0y5mn30FCs0bmJm Xtx6JHLxqIZfMDQaB0g 0cnBhZGRsMTVcdHJwYW RkZnIzXHRycGFkZHIxN DyjtWHxLZY0LOUdZBNj LBLgLKX7YVTsHrRqoqT mMVxjbGJyZHJsXGJyZH BgPANoSCK3GTSbHjTum mNmMVxjbGJyZHJyXGJy PEFrRIKuCJU6SMEbKpX kcmNmMVxjbGJyZHJiXG PaYRScBBIxVTP8BORsR nJkcmNmMVxjbHZlcnRh fQUyM2typGMLgAY3fSD tS7a3N9xtdHoeQRfsHB ZihFe8SNk4POrbiVRqL OT5MZGvQTHoJBWxGFN8 MTBcYnJkcmNmMVxjbGJ yZHJsXGJyZHJzXGJyZH S3WLPuKdTenmSwQLdkn GJyZHJyXGJyZHJzXGJy XRX7BEUiZvBjicBrXNv jbGJyZHJiXGJyZHJzXG ZaDYY9NKTtAdVexhHcT RslqCOzwuWteUDqI6si zZNRjAS3nFBsP4q8Z0b lmZr8JOqvOFZywAq0SP S8GZhcOBGyLIyyxZElT HFyXGJcaTAgUmVzdWx0 qjvmV0TnpXzlGWMzBQr fmONuRNMkUCDex9HmG3 U9VTPhLTynn3ofXAWaW Dtps1CeZUfNLYVPHT3S KP6jnVJ5ZSjDPQUBK7u EsGP7GEF6hAFbzOAneL tcZmxkcnNsdCBcJzFjf L4Lq0xvICtnLyWuk4hk aWVsZHtcKlxmbGRpbnN 0IEhZUEVSTElOSyBuYW 9nOVmZW2SBXnR6QbCyI WC9BeX6DxS0q1wrfERy z5c0FOvmELL0wYxyoGP pblxmczIwXGNlbGxcaW 13Hpnqhn97JADyg3krD HRycmgyNzBcdHJwYWRk ZmwzXHRycGFkZGwxNVx 0cnBhZGRmcjNcdHJwYW NxikY2TJRmEdKsbcHwW nJkcnNcYnJkcncxMFxi epClT4TpESAxIlWzbcd cYnJkcnNcYnJkcncxMF otfcRxX3GiTHGdEtUhg nJcYnJkcnNcYnJkcncx ELpykmAhA2ToLGLrBqL kcmJcYnJkcnNcYnJkcn evNRcwfaOkS2JyCDCci nVzeKSobFbkjPU7z4lg ZFFcK6axmHjVzYD1jIA 6DBJoW9GldGsqUNooHS NsYnJkcnRcYnJkcnNcY fJhyeguZYcpetEuU3Xw XGNsYnJkcmxcYnJkcnN cYnJkcncxMFxicmRyY2 YxXGNsYnJkcnJcYnJkc nNcYnJkcncxMFxicmRy H9WyNWAbEzHenhWmZyR kcnNcYnJkcncxMFxicm EaM1YwCNOvpgBdvOHvc FytrNA7u2tsMXRiU4wf fBbIrKF0rBJ1UvRbH6E xfQh4KRSvXMLrvoYykE 50YmxccXJcYiBQZXJjZ D51TAY4GHzcsW7rHiru ZWmqDRZwbfHxoI15Akn cYjAgMTUgJVxjZWxsXG ywiBCvGYBto3k4bx48L RahAFN1lj27XAFgwQSb WCFyV5s3hyJjXSPhMFP cdHJwYWRkZnIzXHRycG BoAJUxPJlnhVXrDSV6U ADxRVXfHYAcJUA9YGLq YnJkcmNmMVxjbGJyZHJ bRZFeDTPkBKCaUEW8IT BcYnJkcmNmMVxjbGJyZ HJyXGJyZHJzXGJyZHJ3 MTBcYnJkcmNmMVxjbGJ yZHJiXGJyZHJzXGJyZH G5AAGcCqWbvhXxIHrqr MUrvgRwsROkX3mnbXKT xLK0fFCoL4e6X5goeXz jKZtyRXXpiLp2NDt5GN xjcABiNXE4LMIpSMTrO GEmLVL4UQWgIrOoutYo MVxjbGJyZHJsXGJyZHJ xWYTpPCJ5XHFaGkGqhh NmMVxjbGJyZHJyXGJyZ MAuCCYaLHL2EMPqTdJs cmNmMVxjbGJyZHJiXGJ zPCOzXOCnEXP5BZPiXm JkcmNmMVxjbHZlcnRhb WSaJ9eehTICsKZ4hLRv V8a8L5yohYo4RVdqJRK pzSv1SQH6NSpwJSAcKR msuJUvGSRkPJBzA8Apf FxwYXJkXGludGJsIFNl CDEpn57bHY63JIWzlJl okU07Phrivg40QRDldi GmoRt9RhLlLDPsnYUbY OSqreBqiNo3MaWmISZn NITcpgjuBNNzIdUYz96 xNF63BwUjnMCjGWLeFS NmMCBTdGFpbmluZyBvZ iByZWNlcHRvcnMgaXMg bNZwanPuI7DpFUClOSA vw6JyKAZyISOspdOna0 t3ZQLkjYByj6BrjGoob GFyeSBhbmQgdHVidWxh ziJoNHU2UHEktr2uSGY oQNYkBJDlJA75SJpoSG E3TAD4KMmpqM6iQQimv qBkZRIwgI8ggOcsUNyc swWugZReRB7zB5TxmMI faJuzSIF6BRGvvNNcph 4nDF8lRBClAHuxMDHaJ LZiwzGqw8d3WAE5pAH4 sZWnXCOxoUOkto1fKWB hflpzPYBeQqMQl736zc 90ZTpccGFyXGIwXGkgQ jEoMEM5AEVxREJjtLDq bwU1p8OtKZWzppMwRWI dxc7xmxgbVjEirn7lyz 9nqLjfUR9coYOiWVjpd Ts7HLWwCEQqBFEfAPHh DLJtgMmoYMIvkpXbl2S gBMmnnyLcl3LcYDEefX Cyv1VaIzKkf8JntmHrh zZcI5PaORRnqGv0YZgy s4TfxQgpcpV5KVBfp4X cwwjqZcH5HEZztq3faD aqEDCamMJ1lL0oDGG1N 0GcAKGeYMjlsE96juKz l02stK5okHXzzMFyXP9 kIHdlZWtlbmRzLiBccG YlLUCywgRFYzR4rDVlp 1FgD7qsRU7ulOAwTLFw HG3iIjl6ODDxYd2uVBj iwjmhhuB4hKOoBGarBD gynVBqQUAxXU0hG8X1l XZlIEhlciAyIGltbXVu k7gzf0UyP3zyyHysLRf kBOwHEychgiGupPq6NZ 1vnIB9gUJzjcB1zVAgd Jm0RPQklXHck0YzkXLk WEIqkPKlOH7hA6S8dPX iSLOoaREpi6VsmOZlxG DouBPmPCrkbzYin3xja 41cgAsdmVGjzYAncL6l gkEjW4WlWOBdGDKafHK qGGHaqfIcyuIjy23jYT FnUDMod5Beo9Bsz2e5b H03zPYbOuWiS8Taejxo VUeWVJS9VFdnwQ5wYHV ny3WlbGDiONDkICXiPb 0xVFxyWWAaTHgqaEp4O ZUtpwPjjYq5MPQdt2Fk WFPnWNQ4UPGhCkmfEYN ieSBhZGRpdGlvbmFsIH Mvu8GyLC0uVUDbmQBhn tV2uHAcJYHqaBHcYXRx gDFvWPPkex2hookueBU uDYCjJcDcWU3xERVNzq CgcmIpkCBirM8jPCJcw Z6dGC6krN3jwMzroV8h rDPpOxWGf8fqEN5sbGJ mVRK0TlWhMcdwCphjVU M2Kf6ajTMlKYHvkwUWU sY5sZDyr0WlK0guQD4h p4XhIQ9zfCXgvat1iSY qkIaxiWBhK1Uyx7HfUI H2ZF1SQZGiXCVyl90tT XGhvmWrKV4jtVo3xDMh pFDilIuunZjboiG4zX5 rvbAxCBdnJvFfVb93vv ZacU7hoEjdLIUeG65rt GJyuHxaNbBpSAHck9th I7fkfzUmt7D4GaIQwRZ rGPQdu5StnDRajQK3VJ Grk1XqHuZgxsH2DYneI WO0NNCnd33bZAOoFOoh eEOiHLKqsGyih2Ppzb5 gIFxwYXJccGFyIFJlc3 AjfDMba9hurWneEGCgX GludGVycHJldGVkIHdp cXbiP9M8zJrenbXfbPT einC4qNYhnCwxXAcrrO 9vZCBvZiBmYWxzZSBuZ YathMx3jHX6TS3lZLNv P4PqW4cxeMWuNEPcJFH qgRGldi2gOTEzbqvcTN OnIZB5ObClSED1GCC1D Jv2bWOaRvBxaIjhBYml WOX0MeCxKGu6aOVrXcO zxBv5OJVvQTO5UBl8MM s3wCM7QCLflMf0OkIxR OT0IegvSRi7qJd4ZGJn qMj8XfLfPDS2OPJwKIK ccGFyXHBhcmRcaTAgIF xwYXJcdiBTTUFSVExJU 1RfTUVUQURBVEFfQkVH QH8jSkEqFOD6QT7yGhO 2MHKvtAN5TO8bEbYnP9 hrYCKkBxXeWLR5XU0uO uF8CSN5eAB0PG2pKhSz TEx0KBUcTaYwMwC3Ot6 dCus6XyY5JQB2yGo5FU 3sJmVvBogzET3mCtG2I DEwfDExPTBfMjYwMTF8 BOV9GS3vYvTcLVylLx9 iWwlbYV9cCpHvAzrwBM 0nFjY7UCLhvNG7WVSpR gLjLSy3IGi0JI1rUtEi VIicUK2sBqW4DKZ4xEG 2JSZkXlCdANj9TgS6RO 6jGyJlNYciBQ4tMVVWD MKMYUvRHL2WVFBEBRUF ZS0PAfRjF5fXNRQMAcJ fTUVUQURBVEFfQkVHSU 2tRUr9SOedwIB9ESb4Q WmTRZXYNAKLH86ECLAZ GCUZM8CGHZUGIESTOGz BYLPEUp9SMUEIXDGSCL 9CRUdJTiAxXHtCUkVBU 4WSIZWWAUfEVbSqU0Uk E8ygAF5fGNpzUGECdOC 8BhU0EEWbYX8tVLlOMl WYE6NBGHUCGEbXTqHDb GBibo6axEMgBKmcqAC5 HbZgINBeyFRaz2JLHOU TVFBBVEgtSUhDIFNpdG PxSEyvfRB8GmEyZPCdp OLbf6WZMTTXQLDJVAqs MTeDOVswFLSbBTvey6O 9AxGvVLMlzXLjo9FBZZ FTVFBBVEgtSUhDIEVSI VRwXHNff05hIVdxx5H2 UyMwDMYtyEEcv8XNGPU TVFBBVEgtSUhDIEVSIF Wdz5CrvCOMyUE6PdP8J EQ9NJ41RJaQUoLMZ2OK QVRILUlIQyBQZXJjZW5 7ZFO2TWyokL0uGIhOmY Fxm88isKq9UgHjAtMdc Xsln4YSBVOPIOTHQSvc SUhDIEFwcHJvcHJpYXR qGBOwcqAsl6rhWBcLjJ Zwh48guZe0UnRzKgGrs ZQfVBgUNlGBO0VYSBWV LUlIQyBFUiBTdGFpbiB JbnRlbnNpdHkgTGlzdC Y7LqIzQXXxtYXpMNfLO nHNS0NMUVZJLXdZJiPM AlRDAaIPbM3oGTQFuUK 0SdM4TGEpTA2iCke0He YFMJHVAXOQRV9PRMRoE TSoZvKuoIg4PMpay3Mf LdQ8UKCrAF9lD2b5RoY WKNBXARDUWL8UWXUfSR MdR8GreNPMcCAewfvdM aWfG4U8jY7pPDmlGjR6 AOT8PE9aQHd6TdLCKZR QURIVLL3VMFLwSDXdrt 9ivfddfIEfJ73wdKVca VAcHZ5xvTsrqlOdAEyj KvKvRsd7GBFwl0XGLQC TVFBBVEgtSUhDIEdlbi FBmGJcnuPHnqUwx3e1v UVKlHE9CXHsOgQ3BETk GJ7yJ5w7GmQYKQDNKDR EZB8ZJVXkJTOyDbBSHB J6wKPkZCkyeRftBoXhQ 4x6YTqdx3MNQOMHFJFZ VEgtSUhDIFBlcmNlbnQ kI6XixQ1pygmrQS2lnE krpwEnBAnxAsJlOGm2W Rtiq7RQAVDLRKPJNGhw EOlZOWxhyiRhF7RrcaE bFGyiwMwoZmBdGKc0Rr Olk1DAXASBCIUHIPzmO UhDIEhlcjIgRklTSCBM fAG2QjR6XVL5TO9kMZp 8RwMUZPDFSEHETE1BYL IpV8glFdujByFtuCv9H Ubom5S4NoJgUDDhvFFW UGUXVCdMSBQJCc7RLXY FDPOGXZ7YKcXnS2IFMV 7RHi4NLVKXLUJFLO7ZG IqBMfUsR8ZESL3XJl0A CQJSHIGIHT2GVnSpIOH LU9DZXpOUE7mzEAQKZU SOUKVyJtMRJV6gTMNJG A5LWGHKIZWWI81LLEOF KQUNO2XLVV7= Gross Description (test q1aqkVHxSVIwvBHFGAg code = [id number]) wMFxhbnNpXHNwbHRwZ3 GgpbubGXszDB2sAB7gt AeuhPEqhUFjLJ3OULUd ZmYxXHBhcGVydzEyMjQ mWGAyiRUujGZ1PDHtWS 1hcmdsMTgwMFxtYXJnc hZ4AWNmzTAhQ7ZgIKUn EM5jfkcyQNX9TKcxsA1 zytCAUkszPw1byOJzeI tcZjFcZmNoYXJzZXQwX RYweTjtWOKoWJa6mB3I RnfbN20tb6U8Zvy8BZR pJYFyY1ViSN8gLCIvaL AdO36EFmlhIRO4KIKDP bcnKWFqXM8On4udSNMt rBTtPQC0XXxqnMLvNIK rURApEYr1LNPwLGnxrQ YdLB5umDbmVmsnbQlez 2VjdCBcXGlkIDUxMDAy XUldVZJiMT1HCqWaMTF dVhizBDyoHLy0MAw4ZH 9WUyAiICAgNTAzNzEzM JLxVSp1NFjnQH5RVOt7 WlY4XNCzTwO7BHX5XjY cXHQgMiBcXGYgQXJpYW wgXFxmcyAxMCBcXGZiI XxuDyndMEweV45qrUmi bG5eSgpsizVgDAW4DKN hciANClxwbGFpblxlcG ljTmVzdERvYzEgDQpcb HRycGFyXGxpbjBccmlu MCANClxsdHJjaFxiXGN mMVxmczIwIEJyZWFzdC hkrsrdjEHpCHAfZ1l4F GJyZWFzdCAxMDowMDpc PfBbR7FbHEO4XApozIt ydi09kGh1RKZgiOMks7 RshUU0CJZwx0Q3SSIaf 8UuxaJfKD9phT1mXKVk n69zVQUzSZFvHCTyF87 jqL7ctZFyZ2YoBFVhII GaZsNmW28cjQ1cGIuji KS7KGRpBFVauEnyTFb5 GBE5Ru6aqLVyWPSzciN PXH8ICjCoGlGxn1Ezfl EuXDVzJS2bEMchfr81Y TV3m0bcfUViRChrBweh cDOkwuL1WJeKJHOQLIm ZOqVuSN9gQHiPFpnSMD dJTnwyMTAxNnwxfFVTR DT1JGsrqMjusOw4c6zl rGTtm0u6IGvrQXV0eOX Dr2galEWgPGxgDsbqhD QugsD7OLlDYWNWINuBQ xSvZW4dZGeZRegHBcE0 GvFqPIE2DSiLS2CPxYQ 7Ybm9UYw5cPwaVqqxay VgmFTlEdNBlR4vzXagc T0fdJTnS2ixMzMkOEZT ClxlcGljTmVzdERvYzB tzjV6CAJycPHwQFG2FL 5kXHBhclxwYXJkXHNsL QP3UKrkuV49gONrMCSc MTZccGFyfVxwbGFpbiA WJcbwTbaaeKgpt2UcpR BcXGlkIDUxMDAyIFxcZ AAdUH5RMrUsSUYxQkbg LOtfFNd0XOu1EO9TQoV iICAgNTAzNzEzOSIgOT k6UTvxMZ0HDHr1KkRtG GC6YOU4KFL7IeKrGSXl MiBcXGYgQXJpYWwgXFx mcyAxMCBcXGZiIFxcZm tcAXwpD72cvDbumM9tS pagshBkVJR4VETxbeKA ClxwbGFpblxlcGljTmV zdERvYzEgDQpcbHRycG FyXGxpbjBccmluMCANC lxsdHJjaFxiXGNmMVxm czIwIEJyZWFzdCwgcml qdRRvCACeH5z0PLAvVN FidVQhIZicIFD0JLEyV VYcPLJwLrM7IQfsd5iu b3bhvXSsNbovrx6hSHO 6mKU3zUGxmTVnU51aHW SzvrSyH1ynPbRblh3fM DAuOGNtIHRvIDEuMiBj mXRikjPrAJ0rkEotUP2 kIDAuMiBjbSBpbiBkaW MjQTUxnyxzHY40fBLsd Gixg4RjjUf7iMAiRAmn IEIxICgyIGNvcmVzKSB tlfLvYdCxUMWrV72qYP kuICBccHJvdGVjdHtcZ nexeEE9CNkpTejshF6e dCBIWVBFUkxJTksgbmF eGT8QAM2OCqEZGA47Yx ZaQLV7YErEX5NMnRR4G jq6QAk7jRurOabwlbWm vYMcUmSFmD0XSXwgGuf bhMQ8EQrcUpqqoC8klZ BIWVBFUkxJTksgbmFtZ M6JXQ2LDW2KtPSfMSC4 dNQ0GVWMOyidfKZ3zQB 0lB67MMGnIRWhbJWfPF xrF958TKWgPDbfQEh7i mNoXGZzMjAgDQpcZXBp C22mu2RSs5PmUNXlt9q drZrwt1WuhVJgJAibAQ NslVBiTElnsO2kHmYlg 6zytKl0TUkuveA7VTSp gp1wtCjivM3eOXy8SDh aMBAmL7UeS9MzRGesGK V5JQHfIeKzGFHqFXDZF dUaTkVVWzK8NAB1FuY2 CLo2HCJTTjPsCwYdQVS cMogrTUFwJLn1CMw5ES tZTeY7UVA5WbDeEpBiV IWjOQJkQLy7XLRfCFzz IEFyaWFsIFxcZnMgMTA gXFxmYiBcXGZsIFxcbm B8QTIxOJugIKLaJsWzD CBDOlxwYXIgDQpccGxh mS8rYXOcF05sj4SZa0P mDM9UOPh2xzWtzprodI 4wXHJpbjAgDQpcbHRyY 2hcYlxjZjFcZnMyMCBM iS5uqHHqc2MwJBCrUHB yaWdodCwgYXhpbGxhcn prxQX5MOcpfPtbDmldD SykQtEbKAAquLNlcV82 UHCoraJcgFVyf7KylTX 2TOGqw0C8YZAbz9Yuum pmLK80HQBoXLNxBPYhX vPbG84obH9ifIXmK5Wr PHUeOYGyXzN4UEYfODd nUFNfPJ8zaQCgPPRzoy KnkmZtzOFxoQDeuXI7H NNmuK1pVzOkJVQtaDTn fXTdkLfbCvqumJA9VKi rUpouiZ0hiUUMZCZVSo sRJcuoarKfET5ZTD8YE qYLSX61MySzPKS2MAeA U0VKgAX0Xjz3FYo6sZw cZmxkcnNsdCBcJzFDfX 6GYVqvJlkhuEA0LDagC emfpY8ysDSVDLGNLrzW CxggngZkJM8QOM3LTC8 RiGKfDTB6zCS0WBHMJa nizIE7oPX4vF98YOAwC QBrxJCzOCnzH057DJXd QMlqFPb2rrDnEBZiQfL gLYfuLGHaG35qh9PQv2 BzNVRgh7sicHqam8Cui GVuZFxwYXJccGFyZFxz hN7tNvUmi9ghfJe1VMy hteU7SQIkhv6ciNdnyC 9aAHt9BQqcMDUhR5XnA 7AxHIpwVAQ3GNEbMzCa XGRiICBPVlIgIiBDMzY 3UBO0MxV3MKx2YQXTFo MgIiAgIDUwMzcxNTgiI Hy4HIk6KZsJIsS3GZC7 Rxg7OptiBQFjXOUzDPf 0IDIgXFxmIEFyaWFsIF xcZnMgMTAgXFxmYiBcX IZvWYttijG9RAKeCXna XGJcZnMyMCBEOlxwYXI fIXjwcEqlwH3jUWBsC6 0lf5AGq1YwEX7QCOc5q oIadrwlyO3jDXJdlkVm NZwkoXGsH8soUmbbKqP bXxAfIGSXflWiu5NoHI xlZnQsIGxlZnQgYnJlY QT7MJH4AQE8LUYlVMLy FJArEqH9oUo6MQ81SSa gj5zrOhuxhw5lOYU7vU G7hEXpyREeX22fWVDtj zMkN1neJhGjll6pACGq W9TtRFIbXACyLDEaeHD qekHlMK2vnLnlZB3qHJ AuMiBjbSBpbiBkaWFtZ PSfnmysFP38oZDddJid k3VpnWq6jZXrHSboBYS xICgyIGNvcmVzKSBhbm FaJKZpKSRgG42wZMmoT CBccHJvdGVjdHtcZmll oPF4SNwgUvzycN8wtZW IWVBFUkxJTksgbmFtZT 7MQP3FOfXSBR25RlBnY PX3XSbKD4TByTK6Qha5 LGk4aQvzAswbhoQkdHM tCwEUeI8ZUMmoQpxgoJ N0DPruBgkhmM1vtWVFN RBTShzJSbcqkjYoSB8F XM3DCI8XaPCcKRX2mRP 1AUBBTketkED7eZE6lQ 17XGZsZHJzbHQgXCcxQ 137SITbADtnYGz1tjWp CVLtEdRzGFewLDJmW59 rc0KWt2KxDGHjp2lavI nry7NexRTlOAykLHAom WQlZBlweK2rSlXkq9pp kHy1GSikxoM6IUNpfe9 kvGwarF9cWNdwi2otCC P0CPPrtXLdiMIfVNtfh AftiR4rReSbQme4PLrv VTMbS1RoB2WyjkH3JAM sYWluXGZzMTYgDQp9 Disclaimer (test code = [id number] [id number]) iMKLvLILce8qoWNEnqO FuZzEwMzNcZnRuYmpcd TPjDNYmInZim0qzk596 xBHhu0acYZBiNeA8sNQ yFVXmxFIhK354EKWaEL ram5mlm6LaIDXysTFii 1K6IDMDejbmtQa2iThp F05ty4G1BwfyO2nyFHS yGXFiF5NdSI5rKFHdXp h2TWB2GGU0JOUmKRLmT 2UaPX0vXLYjtRMnMTa2 i2ywkCdlOYLeEGB2k9k oSDvhivYlHT7znv9qgF k1p4mdvzLeXLBrPWNjp MSUTVFuQ4KxaMwdFk9s rHz4xIpiFanxYBH0Erb 7RJ1lgg92qof7aSqxMU UduhovMyI5SPwcUKWsu suhFFr9LWevAUNnaIO9 OXPmuNXyP0GrCQWzPF8 oeoy7TPJ2LNknDNFtMy O8KMDxqWRoEVJliFvtA Sfew578KTK3KgWwPW0x D2Yys1C3iT3duQWxBJJ roRBrFxQlYQInae7seC ZjQHxbq2PhTFL5sqT4u FFrgECvATPbHJ35Iijr e9QmYolgHDY9MODwruK mv3Fhh2ixOzIzrnYuY5 ehN3WbNRMdWSCfNAGeX hJeymRji3Nzo9FbvFNq sVk2y5ebRRMpTPTkhCy es0tsPBK3ZOZpG3Y5mK Ati2usSJzwTLXyuDK7w xR6EUEsvPPxJ8PyvM5j MMQvOK9psvt4p6xkLTM 1REssPSAxXeV7byT5NI BcaGVhZGVyeTcyMFxmb 872JKO8EaYwMRIjz2Yv X7ZdrJipN74ciGjbG46 qEQBamWsobI9lmCnmnH 5cZjBcZnMyNFxxbFxwb XMlnpnqTUtulfI0SVbe wqzfLNVbQNdwL8hiQtF uFJZhuSymGAfmd7OrIV OzSKDwJdsegfC6BICTc 85vGRHkm0HzGULqmO1h vFJnIOhhaxXyxMX6ABt hdmUgYmVlbiBkZXZlbG 7hSWHkEM2iZPTqsnDim q3zbvBuTAWtPPKcD2Yy cmlzdGljcyBkZXRlcm1 megMtJNV2ROVGEH2HVS CtMZMty77aDSDzgMhpo U4svXAfokEhOVZxs6Ua lQ3xmSZDDIMrU6ijWO9 sNDsdh0NwbIJlhILuoW R3XTIqm7MiEbLmotHyh XMtkWOnK4IzpUzbP0hl ZEVdRAIpkoUnnGFlp8R ySMPwoAJ3cXDzDN1AYe VTh65dUKTbFQDTdzRxE LYagRcooYG9eoK7eS3n LiBJZiBhcHBsaWNhYmx cIHJgs028fn6kmqL0XW JeDMKyrixcv9DuJNBqF JFhvE52AVXxWMDexb7a uyzfeZFzciWhK7Tqijv 5aB0zSAXfSRphVFLmMK ZzMjJcbGFuZzEwMzNca GljaFxmMVxkYmNoXGYx JIesN5swBsTaLmFeNzp wYXJ9 [facility] [place] Diagnostic Bilateral with [id number] 23:43:47 Test Item Value Reference Range Interpretation Comments Radiology Study observation (narrative) (test code = 43371-1) IMP (test code = IMP) 1: Mass [...] Evaluation Lab Interpretation Abnormal (test code = 22523-2) [facility] 23:39:46 Test Item Value Reference Range Interpretation Comments Radiology Study observation (narrative) (test code = 70480-7) IMP (test code = IMP) 1: Mass [...] Biopsy may be considered if it would change director. 4: Lymph nodes in the right axilla [...] guided biopsy may be considered if itwould change director. 7: Lymph nodes in the left axilla are suspicious. Ultrasound guided biopsy isrecommended. BI-RADS Category 4C:Suspicious Abnormality PXN (test code = PXN) Nupur Rosario DO - 11/20/2021 CLINICAL INDICATION:Patient is a 81 year old female and is seen for abnormal mammogram FILMS COMPAREDThe present examination has been compared to a prior imaging study performed [facility] on 11/20/2021. Images were obtained in [...] Biopsy may be considered if it would change director. 4: Lymph nodes in the right axilla [...] guided biopsy may be considered if itwould change director. 7: Lymph nodes in the left axilla are suspicious. Ultrasound guided biopsy isrecommended. BI-RADS Category 4C:Suspicious Abnormality Lab Interpretation Abnormal (test code = 21756-8) [facility] Chest for Breast Ultrasound (Add-on Only)2021-11-20 23:39:46 Test Item Value Reference Range Interpretation Comments Radiology Study observation (narrative) (test code = 53873-2) IMP (test code = IMP) 1: Mass [...] Biopsy may be considered if it would change director. 4: Lymph nodes in the right axilla [...] guided biopsy may be considered if itwould change director. 7: Lymph nodes in the left axilla are suspicious. Ultrasound guided biopsy isrecommended. BI-RADS Category 4C:Suspicious Abnormality PXN (test code = PXN) Nupur Rosario, DO - 11/20/2021 CLINICAL INDICATION:Patient is a 81 year old female and is seen for abnormal mammogram FILMS COMPAREDThe present examination has been compared to a prior imaging study performed [facility] on 11/20/2021. Images were obtained in multiple [...] Biopsy may be considered if it would change director. 4: Lymph nodes in the right axilla [...] guided biopsy may be considered if itwould change director. 7: Lymph nodes in the left axilla are suspicious. Ultrasound guided biopsy isrecommended. BI-RADS Category 4C:Suspicious Abnormality Lab Interpretation Abnormal (test code = 03180-5) [id number] 23:39:46 Test Item Value Reference Range Interpretation Comments Radiology Study observation (narrative) (test code = 05321-0) IMP (test code = IMP) 1: Mass [...] Biopsy may be considered if it would change director. 4: Lymph nodes in the right axilla [...] guided biopsy may be considered if itwould change director. 7: Lymph nodes in the left axilla are suspicious. Ultrasound guided biopsy isrecommended. BI-RADS Category 4C:Suspicious Abnormality PXN (test code = PXN) Nupur Rosario DO - 11/20/2021 CLINICAL INDICATION:Patient is a 81 year old female and is seen for abnormal mammogram FILMS COMPAREDThe present examination has been compared to a prior imaging study performed [facility] on 11/20/2021. Images were obtained in multiple [...] Biopsy may be considered if it would change director. 4: Lymph nodes in the right axilla [...] guided biopsy may be considered if itwould change director. 7: Lymph nodes in the left axilla are suspicious. Ultrasound guided biopsy isrecommended. BI-RADS Category 4C:Suspicious Abnormality Lab Interpretation Abnormal (test code = 01901-9) [facility] [place]
[2022-03-10] MEDS ORDERED: NA CHLORIDE 0.9% 1,000 ML ONE ×3 (14:18→19:07)
[2022-03-10 14:34] LABS: Albumin 3.2 g/dL (3.4-5.0); Bilirubin Direct 0.2 mg/dL (0-0.2); Bilirubin Total 0.7 mg/dL (0.2-1.0); Potassium 3.7 mmol/L (3.5-5.1); Protein, Total 6.1 g/dL (6.4-8.2); Troponin High Sensitivity 8.3 pg/mL (<58.9)
[2022-03-10 14:38] LABS: Absolute Lymphocytes (CBC) 0.8 K/uL (0.7-4.9); Hematocrit 30.3 % (36.0-45.0); Lymphocytes % 54.9 % (15.3-44.8); MPV 9.2 fL (7.6-11.3); RBC Red Blood Cell Count 3.32 M/uL (3.86-4.86)
[2022-03-10 14:41] LABS: Magnesium 1.3 mg/dL (1.8-2.4)
--- NOTE | 2022-03-10 15:12 | RAD REPORT ---
EXAM DESCRIPTION: RAD - Chest Single View - 03/10/2022 3:02 pm CLINICAL HISTORY: Weakness, hypotensive, syncopal episode, breast cancer, hypertension history COMPARISON: Portable 11/21/2019 TECHNIQUE: AP portable chest image was obtained 03/10/2022 3:02 pm . FINDINGS: No acute lung parenchymal process. Interstitial pattern is accentuated by shallow inspirat ion. Left-sided Port-A-Cath has been added since the prior examination. The lower lung volume would a ccount for the slightly accentuated interstitial pattern. A minimal interstitial edema or infiltrate is not entirely excluded. Heart and vasculature are normal. No measurable pleural effusion and no pneumothorax. No acute bony abnormality seen. No acute aortic findings suspected. IMPRESSION: No focal mass, consolidation or significant pulmonary edema pattern. Mild prominence of the interstitial pattern is believed be mostly the affects of a shallow inspirator y effort. Minimal interstitial edema or infiltrate could be masked.
[2022-03-10] MEDS ORDERED: MAGNESIUM SULFATE 1 gm IVPB 1 GM/100 ML BAG IV ONE (19:28)
--- NOTE | 2022-03-10 19:46 | EDPHYS ---
Physician Documentation [facility] Name: Deedee Smith Age: 81 yrs Sex: Female : 1940 Arrival Date: 03/10/2022 Time: 13:15 Bed 17 Private MD: ED Physician Barry Montemayor HPI: 03/10 13:58 This 81 yrs old Female presents to ER via EMS with complaints of General Weakness - pm1 unsteady on feet-hx of breast cancer, gets chemo every thursday.. 13:58 The patient presents to the emergency department with weakness of the entire body, pm1 generalized weakness. Onset: The symptoms/episode began/occurred today. Context: occurred at home, occurred while the patient was changing position, sitting up and standing. Associated signs and symptoms: Pertinent negatives: fever, nausea, diarrhea, vomiting, headache, chest pain, shortness of breath. Severity of symptoms: in the emergency department the symptoms are unchanged. Patient's baseline: Neuro: alert and fully oriented, Motor: no deficits, Ambulation: walks without assistance, Speech: normal. 13:58 Patient reports that with her chemotherapy that she has had generalized weakness and pm1 has not wanted to get up to feed herself or drink enough fluids. Historical: - Allergies: 13:31 unable to recall; jg9 - PMHx: 13:26 Diabetes - IDDM; Hypercholesterolemia; Hypertension; left breast cancer; jg9 - PSHx: 13:26 Cholecystectomy; Total abdominal hysterectomy; left chemo port; jg9 - Immunization history:: Adult Immunizations up to date. - Social history:: Smoking status: Patient denies any tobacco usage or history of. ROS: 13:58 Constitutional: Negative for fever, chills, and weight loss, Cardiovascular: Negative pm1 for chest pain, palpitations, and edema, Respiratory: Negative for shortness of breath, cough, wheezing, and pleuritic chest pain, Abdomen/GI: Negative for abdominal pain, nausea, vomiting, diarrhea, and constipation, Back: Negative for injury and pain, MS/Extremity: Negative for injury and deformity, Skin: Negative for injury, rash, and discoloration. 13:58 Neuro: Positive for Generalized weakness, Negative for numbness, tingling. 13:58 All other systems are negative. Exam: 13:58 Constitutional: This is a well developed, well nourished patient who is awake, alert, pm1 and in no acute distress. Head/Face: Normocephalic, atraumatic. Cardiovascular: Regular rate and rhythm with a normal S1 and S2. No gallops, murmurs, or rubs. Normal PMI, no JVD. No pulse deficits. Respiratory: Lungs have equal breath sounds bilaterally, clear to auscultation and percussion. No rales, rhonchi or wheezes noted. No increased work of breathing, no retractions or nasal flaring. Abdomen/GI: Soft, non-tender, with normal bowel sounds. No distension or tympany. No guarding or rebound. No evidence of tenderness throughout. Back: No spinal tenderness. No costovertebral tenderness. Full range of motion. Skin: Warm, dry with normal turgor. Normal color with no rashes, no lesions, and no evidence of cellulitis. MS/ Extremity: Pulses equal, no cyanosis. Neurovascular intact. Full, normal range of motion. 13:58 Neuro: Exam negative for acute changes, Orientation: is normal, Mentation: is normal, Cranial nerves: CN II- XII are normal as tested, Cerebellar function: normal finger to nose testing, Motor: is normal, moves all fours. Vital Signs: 13:17 BP 131 / 69; Pulse 102; Resp 18 S; Temp 98.9(O); Pulse Ox 99% on R/A; Weight 90.72 kg jg9 (R); Height 5 ft. 5 in. (165.10 cm) (R); Pain 0/10; 14:15 BP 115 / 69 Supine; Pulse 97; Resp 18 S; Pulse Ox 100% on R/A; jg9 14:23 BP 86 / 75 Sitting; Pulse 96; Resp 18 S; Pulse Ox 98% on R/A; jg9 14:26 BP 108 / 67 Standing; Pulse 99; Resp 19 S; Pulse Ox 100% ; jg9 15:00 BP 126 / 65; Pulse 88; Resp 20 S; Pulse Ox 100% on R/A; jg9 16:50 BP 134 / 52 Supine; Pulse 87; Resp 15 S; Pulse Ox 100% ; jg9 16:55 BP 127 / 77 Sitting; Pulse 95; Resp 13 S; Pulse Ox 99% on R/A; j9 17:00 BP 105 / 50 Standing; Pulse 109; Resp 19 S; Pulse Ox 100% on R/A; j9 17:15 BP 131 / 67; Pulse 90; Resp 16 S; Pulse Ox 99% on R/A; jg9 18:30 BP 120 / 52; Pulse 99; Resp 20 S; Pulse Ox 98% on R/A; jg9 18:57 BP 117 / 55 Supine; Pulse 95; Resp 17 S; Pulse Ox 99% on R/A; 9 19:00 BP 111 / 70 Sitting; Pulse 98; Resp 18 S; Pulse Ox 98% on R/A; 9 19:00 BP 130 / 76 Standing; Pulse 109; Resp 18; Pulse Ox 98% on R/A; 9 20:15 BP 139 / 66; Pulse 91; Resp 15; Pulse Ox 100% on R/A; sm5 13:17 Body Mass Index 33.28 (90.72 kg, 165.10 cm) 9 MDM: 13:36 Patient medically screened. pm1 15:06 Data reviewed: vital signs. Data interpreted: Pulse oximetry: on room air is 100 %. pm1 Interpretation: normal. 18:07 Counseling: I had a detailed discussion with the patient and/or guardian regarding: lab pm1 results, radiology results, will give the patient additional fluids and food due to orthostasis. Orthostasis is due to poor po intake. 18:48 ED course: Patient reports that she feels she could use a little more IV fluids. pm1 Patient ate her dinner and has currently been infused 2 liters NS. 19:21 ED course: Repeat orthostatic blood orthostatics blood pressure shows some tilting with pm1 standing. Will give additional IV fluids along with magnesium infusion. 03/10 13:58 Order name: Basic Metabolic Panel; Complete Time: 14:50 pm1 03/10 13:58 Order name: CBC with Diff pm1 03/10 13:58 Order name: LFT's; Complete Time: 14:50 pm1 03/10 13:58 Order name: Magnesium; Complete Time: 14:50 pm1 03/10 13:58 Order name: Troponin HS; Complete Time: 14:50 pm1 03/10 20:25 Order name: CBC Smear Scan EDMS 03/10 13:58 Order name: Orthostatic Blood Pressure; Complete Time: 15:12 pm03/10 13:58 Order name: XRAY Chest (1 view); Complete Time: 15:28 pm03/10 13:58 Order name: EKG; Complete Time: 13:59 pm03/10 16:52 Order name: Diet Regular; Complete Time: 16:53 pm03/10 13:58 Order name: Cardiac monitoring; Complete Time: 14:02 pm03/10 13:58 Order name: EKG - Nurse/Tech; Complete Time: 14:02 pm03/10 13:58 Order name: IV Saline Lock; Complete Time: 14:02 pm03/10 13:58 Order name: Labs collected and sent; Complete Time: 14:02 pm03/10 13:58 Order name: O2 Sat Monitoring; Complete Time: 14:02 pm03/10 16:32 Order name: Orthostatics; Complete Time: 17:19 pm1 Administered Medications: 14:39 Drug: NS 0.9% 1000 ml Route: IV; Rate: 1000 ml; Site: left antecubital; jg9 17:15 Drug: NS 0.9% 1000 ml Route: IV; Rate: 1000 ml; Site: left antecubital; jg9 18:46 Follow up: IV Status: Completed infusion; IV Intake: 1000ml jg9 19:10 Drug: NS 0.9% 1000 ml Route: IV; Rate: 1000 ml; Site: left antecubital; jg9 20:15 Follow up: IV Status: Completed infusion; IV Intake: 1000ml sm5 19:27 Drug: Magnesium Sulfate 1 grams Route: IVPB; Infused Over: 1 hrs; Site: left 5 antecubital; 20:30 Follow up: IV Status: Completed infusion; IV Intake: 100ml sm5 Disposition Summary: 03/10/22 19:45 Discharge Ordered Location: Home pm1 Problem: new pm1 Symptoms: have improved pm1 Condition: Stable pm1 Diagnosis - Dehydration pm1 - Orthostatic hypotension pm1 Followup: pm1 - With: Emergency Department - When: As needed - Reason: Worsening of condition Followup: pm1 - With: Private Physician - When: 2 - 3 days - Reason: Recheck today's complaints, Continuance of care, Re-evaluation by your physician Discharge Instructions: - Discharge Summary Sheet pm1 - Dehydration, Elderly pm1 - Rehydration, Elderly pm1 - Orthostatic Hypotension pm1 Forms: - Medication Reconciliation Form pm1 - Thank You Letter pm1 - Antibiotic Education pm1 - Prescription Opioid Use pm1 Signatures: Dispatcher [employer] Kar Beal NP MACHINE TURNER pm1 Vera Grey RN RN sm5 Diane Rodriguez RN RN jg9
--- NOTE | 2022-03-10 19:46 | ER ---
Nurse's Notes [facility] Name: Deedee Smith Age: 81 yrs Sex: Female : 1940 Arrival Date: 03/10/2022 Time: 13:15 Bed 17 Private MD: Diagnosis: Dehydration;Orthostatic hypotension Presentation: 03/10 13:15 Chief complaint: EMS states: toned out for low BP, pt was unsteady when standing , iw orthostatic positive , hx of breast cancer, on chemo. Coronavirus screen: Client presents with at least one sign or symptom that may indicate coronavirus-19. Ebola Screen: Patient negative for fever greater than or equal to 101.5 degrees Fahrenheit, and additional compatible Ebola Virus Disease symptoms Patient denies exposure to infectious person. Patient denies travel to an Ebola-affected area in the 21 days before illness onset. No symptoms or risks identified at this time. Risk Assessment: Do you want to hurt yourself or someone else? Patient reports no desire to harm self or others. Onset of symptoms was March 10, 2022. 13:15 Method Of Arrival: EMS: [facility] iw 13:15 Acuity: SHAMEKA 3 iw 13:17 Initial Sepsis Screen: Does the patient meet any 2 criteria? No. Patient's initial jg9 sepsis screen is negative. Does the patient have a suspected source of infection? No. Patient's initial sepsis screen is negative. Triage Assessment: 13:15 General: Appears in no apparent distress. Behavior is calm, cooperative. Pain: Denies jg9 pain. EENT: No deficits noted. Neuro: Reports weakness generalized weakness reported, worse with standing and hypotension. Cardiovascular: Rhythm is sinus rhythm. Respiratory: No deficits noted. GI: No deficits noted. : No deficits noted. Derm: No deficits noted. Musculoskeletal: No deficits noted. Historical: - Allergies: 13:31 unable to recall; jg9 - PMHx: 13:26 Diabetes - IDDM; Hypercholesterolemia; Hypertension; left breast cancer; jg9 - PSHx: 13:26 Cholecystectomy; Total abdominal hysterectomy; left chemo port; jg9 - Immunization history:: Adult Immunizations up to date. - Social history:: Smoking status: Patient denies any tobacco usage or history of. Screenin:29 Abuse screen: Denies threats or abuse. Denies injuries from another. Nutritional jg9 screening: No deficits noted. Tuberculosis screening: No symptoms or risk factors identified. Fall Risk None identified. Assessment: 18:41 Reassessment: Patient and/or family updated on plan of care and expected duration. Pain jg9 level reassessed. Patient is alert, oriented x 3, equal unlabored respirations, skin warm/dry/pink. Patient reports some improvement in her symptoms, but not significant. 20:15 Reassessment: No changes from previously documented assessment. Patient and/or family sm5 updated on plan of care and expected duration. Pain level reassessed. Vital Signs: 13:17 BP 131 / 69; Pulse 102; Resp 18 S; Temp 98.9(O); Pulse Ox 99% on R/A; Weight 90.72 kg jg9 (R); Height 5 ft. 5 in. (165.10 cm) (R); Pain 0/10; 14:15 BP 115 / 69 Supine; Pulse 97; Resp 18 S; Pulse Ox 100% on R/A; jg9 14:23 BP 86 / 75 Sitting; Pulse 96; Resp 18 S; Pulse Ox 98% on R/A; jg9 14:26 BP 108 / 67 Standing; Pulse 99; Resp 19 S; Pulse Ox 100% ; jg9 15:00 BP 126 / 65; Pulse 88; Resp 20 S; Pulse Ox 100% on R/A; jg9 16:50 BP 134 / 52 Supine; Pulse 87; Resp 15 S; Pulse Ox 100% ; jg9 16:55 BP 127 / 77 Sitting; Pulse 95; Resp 13 S; Pulse Ox 99% on R/A; jg9 17:00 BP 105 / 50 Standing; Pulse 109; Resp 19 S; Pulse Ox 100% on R/A; jg9 17:15 BP 131 / 67; Pulse 90; Resp 16 S; Pulse Ox 99% on R/A; jg9 18:30 BP 120 / 52; Pulse 99; Resp 20 S; Pulse Ox 98% on R/A; jg9 18:57 BP 117 / 55 Supine; Pulse 95; Resp 17 S; Pulse Ox 99% on R/A; jg9 19:00 BP 111 / 70 Sitting; Pulse 98; Resp 18 S; Pulse Ox 98% on R/A; jg9 19:00 BP 130 / 76 Standing; Pulse 109; Resp 18; Pulse Ox 98% on R/A; jg9 20:15 BP 139 / 66; Pulse 91; Resp 15; Pulse Ox 100% on R/A; sm5 13:17 Body Mass Index 33.28 (90.72 kg, 165.10 cm) jg9 ED Course: 13:15 Patient arrived in ED. iw 13:15 Kar Mario NP is PHCP. pm1 13:15 Barry Montemayor MD is Attending Physician. pm1 13:15 Diane Rodriguez RN is Primary Nurse. jg9 13:16 Triage completed. iw 13:16 Arm band placed on. iw 13:29 Patient has correct armband on for positive identification. Bed in low position. Call jg9 light in reach. Side rails up X 1. 13:43 Maintain EMS IV. Dressing intact. Site clean \T\ dry. Gauge \T\ site: 18 left ac. jg 9 infiltrated. 14:39 Inserted saline lock: 22 gauge in left antecubital area, using aseptic technique. jg9 15:04 XRAY Chest (1 view) In Process Unspecified. EDMS 15:12 No apparent distress. Resting quietly. jg9 18:00 Diet: Patient given a regular meal tray. j9 18:24 , pt friend, will pick pt up when she needs a ride home. bd 18:48 No apparent distress. Resting quietly. jg9 20:54 No provider procedures requiring assistance completed. IV discontinued, intact, sm5 bleeding controlled, No redness/swelling at site. Pressure dressing applied. Administered Medications: 14:39 Drug: NS 0.9% 1000 ml Route: IV; Rate: 1000 ml; Site: left antecubital; jg9 17:15 Drug: NS 0.9% 1000 ml Route: IV; Rate: 1000 ml; Site: left antecubital; jg9 18:46 Follow up: IV Status: Completed infusion; IV Intake: 1000ml jg9 19:10 Drug: NS 0.9% 1000 ml Route: IV; Rate: 1000 ml; Site: left antecubital; jg9 20:15 Follow up: IV Status: Completed infusion; IV Intake: 1000ml sm5 19:27 Drug: Magnesium Sulfate 1 grams Route: IVPB; Infused Over: 1 hrs; Site: left [facility] antecubital; 20:30 Follow up: IV Status: Completed infusion; IV Intake: 100ml [facility] Medication: 13:29 VIS not applicable for this client. jg9 Intake: 18:46 IV: 1000ml; Total: 1000ml. jg9 20:15 IV: 1000ml; Total: 2000ml. sm5 20:30 IV: 100ml; Total: 2100ml. [facility] Outcome: 19:45 Discharge ordered by MD. pm1 20:54 Discharged to home via wheelchair. 5 20:54 Condition: stable 20:54 Discharge instructions given to patient, Instructed on discharge instructions, follow up and referral plans. Demonstrated understanding of instructions, follow-up care. 20:55 Patient left the ED. [facility] Signatures: Dispatcher [employer] EDMS Izzy Ivy Irene, RN RN iw Kar Mario NP CATALOGUE ILLUSTRATOR pm1 Vera Grey RN RN 5 Diane Rodriguez RN RN jg9 Corrections: (The following items were deleted from the chart) 14:40 13:43 Maintain EMS IV. Dressing intact. Site clean \T\ dry. Gauge \T\ site: 18 left ac. jg9 jg 9
[2022-03-10 20:25] LABS: Blood Morphology Comment NOTED (NOT SEEN); Platelet Estimate ADEQ; Poikilocytosis 2+; White Blood Cell Scan OK (OK)
[2022-03-10 21:19] VITALS: TEMP 98.9
[2022-03-10 21:36] VITALS: BP 139/66; O2SAT 100
--- NOTE | 2022-03-11 08:55 | EKG ---
Test Date: 2022-03-10 Test Time: 13:42:08 [employer] Tender: YOLANDA MEASUREMENT RESULTS: Intervals: Rate: 99 RI: 150 QRSD: 86 QT: 366 QTc: 469 Bryant: P: 63 RI: 150 QRS: 20 T: 82 INTERPRETIVE STATEMENTS: Normal sinus rhythm Normal ECG Compared to ECG 11/21/2019 08:52:37 T-wave abnormality no longer present Electronically Signed On 03-11-22 08:52:26 CDT by Edmond March
== END 2022-03-10 20:55 | disposition home or self-care (01) ==
LOC: ER 12:57
DX: E86.0 Dehydration (principal); I95.1 Orthostatic hypotension; C50.912 Malignant neoplasm of unspecified site of left female breast; E11.9 Type 2 diabetes mellitus without complications; I10 Essential (primary) hypertension
CPT/HCPCS: 85025; 80048; 36415; 83735; 80076; 84484; 71045; J3475; J7030 ×3; 93005

== ENCOUNTER 2022-08-11 15:12 | Emergency (ER) | payer OTHER ==
--- OUTSIDE RECORDS SUMMARY | 2022-08-11 15:42 | XMS REPORT | Clinical Summary ---
:1940 Author Organization [facility] MD [facility] Address [address] [place] [address] Care Team Providers Name Role Phone Gonsalo Gracia MD Unavailable Gonsalo Gracia MD Unavailable Mónica Joseph MD Primary Care Provider Shaan Kauffman MD Unavailable Allergies Active Allergy Reactions Severity Noted Date Comments Paclitaxel 12/18/2021 Facial flushing , feeling hot, throat "scratchy" Medications Medication Sig Dispensed Refills Start Date End Date Status metoprolol tartrate Take 1 tablet by 3 12/13/2015 Active (LOPRESSOR) 25 mg mouth daily. tablet sitaGLIPtin (JANUVIA) Take 100 mg by 0 Active 100 mg tablet mouth daily. atorvastatin (LIPITOR) Take 1 tablet by 0 03/18/2020 Active 80 mg tablet mouth daily. folic acid (FOLVITE) 1 Take 1 mg by 0 Active mg tablet mouth. ondansetron (ZOFRAN) 8 Take 1 tablet (8 60 tablet 4 12/06/2021 Active mg tabletIndications: mg) by mouth Infiltrating duct every 8 (eight) carcinoma of right hours as needed female breast for nausea. Additional Information Patient not taking. Reason: No longer taking, Reported on 06/11/2022 prochlorperazine (COMPAZINE) 10 Take 1 tablet (10 mg) 60 tablet 4 12/06/2021 Active mg tabletIndications: by mouth every 6 Infiltrating duct carcinoma of (six) hours as needed right female breast for nausea. Additional Information Patient not taking. Reason: No longer taking, Reported on 06/11/2022 pioglitazone (ACTOS) 0 04/22/2022 Active 30 mg tablet apixaban (Eliquis) 5 Take 1 tablet 60 tablet 3 06/24/2022 Active mg (5 mg) by tabletIndications: mouth every 12 Pulmonary embolism, (twelve) not otherwise hours. specified metFORMIN Take 1 tablet 10 11/16/2015 03/11/20 Disco ntinued (Not (GLUCOPHAGE) 500 mg by mouth twice 22 Applicable) tablet daily. ranitidine (ZANTAC) Take 1 tablet 0 01/07/201612/06 Discontinued (Not 150 mg tablet by mouth 22 Applic able) daily. clopidogrel (PLAVIX) Take 1 tablet 0 03/25/202006/14 Discontinued (Other 75 mg tablet by mouth 22 ) daily. aspirin 81 mg EC Take 81 mg by 0 03/11/20 Discontinued (Not tablet mouth daily. 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 Cancer Staging: Clinical stage from 12/03: Stage IIIB (cT2, cN3, cM0, G3, ER+, DE+, HER2-) - Unsigned Essential (primary) hypertension 04/16/2020 Hyperlipidemia 04/16/2020 Gastroesophageal reflux disease 04/16/2020 History of malignant neoplasm of endometrium 0 Malignant neoplasm of endometrium 01/16/2016 Cancer Staging: Clinical stage from 02/24: Stage IA (Primary) - Signed by Mónica Joseph MD on 02/26/2016 Diabetes mellitus 01/16/2016 Encounters Date Type Specialty Care Team Description 08/06/2022 Infusion Infusion Services Gale Boyce, Imelda ng duct POST GRADUATE INTERN carcinoma of right Lex, female breast Lorena Warren RN (Primary Dx) 08/06/2022 Travel 08/05/2022 Orders Only Breast Medical Zaida Blackmon, Oncology PA 07/17/2022 Infusion Infusion Services Gale Boyce Infiltrati ng duct POST GRADUATE INTERN carcinoma of ri ght female breast (Primary Dx) 07/17/2022 Travel 07/17/2022 Orders Only Oncology Gurpreet Griggs, PULP MIXER 07/16/2022 Telemedicine Breast Medical [facility], Malignant wiliam plasm of central portion of right female breast (Primary Dx); Oncology MD Nuzhat 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; Hypercalcemia; Adjustment diso rder with anxiety 07/14/2022 [facility] MD Nuzhat 07/09/2022 Telephone Breast Surgical [facility] Oncology Mallory gray, PA 07/09/2022 Orders Only Breast Surgical [facility] Oncology Mallory gray PA 07/09/2022 Orders Only Breast Medical [facility], Infiltrating duct Oncology MD Nuzhat carcinoma of ri ght female breast (Primary Dx) 07/04/2022 Evaluation Physical Therapy [facility] At risk of lymphedema (Primary Dx); Mallory gray PA Infiltrating duct carcinoma of right fem moustapha breast Diane Rodrigues, PT 07/04/2022 Travel 06/30/2022 Ancillary Procedure Radiology [facility] Infiltr ating duct Mallory gray PA carcinoma of r ight female breast 06/30/2022 Telephone Breast Surgical [facility] Oncology Mallory gray PA 06/30/2022 Telephone Breast Surgical [facility] Oncology ezSunshinesy, PA 06/30/2022 Telephone Breast Medical Diann Gan RN 06/30/2022 Orders Only Breast Surgical [facility] Oncology Mallory gray PA 06/30/2022 Travel 06/25/2022 Orders Only Radiology Khadra Bardales MD 06/25/2022 Orders Only Breast Surgical [facility] Infiltratin g duct Oncology ezMallory PA carcinoma of r ight female breast (Primary Dx) 06/24/2022 Orders Only Breast Surgical [facility] Infiltratin g duct Oncology ezMallory, PA carcinoma of r ight female breast (Primary Dx) 06/24/2022 Orders Only Oncology Gurpreet Griggs, Pulmonary embol ism, PULP MIXER not otherwise specified (Prim love Dx) 06/24/2022 Telephone Breast Medical Diann Gan Oncology Michael, RN 06/23/2022 Ancillary Procedure Radiology Clifton Liraa ting duct Ami Guerrero carcinoma of ri ght MD Vinod female breast 06/23/2022 Travel 06/11/2022 Infusion Infusion Services Gale Boyce Infiltrati ng duct POST GRADUATE INTERN carcinoma of right Lex, female breast Lorena Warren RN (Primary Dx) 06/11/2022 Office Visit Breast Medical [facility] Infiltrating duct Oncology MD Nuzhat carcinoma of right Harjinder, female breast [place], 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 (Primary Dx) 06/11/2022 Orders Only Breast Medical [place], Oncology MD Nuzhat 06/11/2022 Travel 06/11/2022 Telephone Breast Medical Diann Gan Oncology SELIN Rodriguez 06/10/2022 Orders Only Breast Medical [facility] Infiltrating duct Oncology MD Nuzhat carcinoma of ri ght female breast (Primary Dx) 05/21/2022 Infusion Infusion Services Gale Boyce Infiltrati ng duct POST GRADUATE INTERN carcinoma of ri ght female breast (Primary Dx) 05/21/2022 Travel 05/14/2022 Orders Only Breast Surgical [facility] Oncology Mallory gray PA 05/13/2022 Office Visit Breast Medical Annamarie Cuba duct Oncology MD Nuzhat carcinoma of ri ght female breast (Primary Dx) 05/13/2022 Travel 04/22/2022 Orders Only Breast Medical Gale Boyce Oncology POST GRADUATE INTERN 04/17/2022 Prep for Surgery Breast Surgical [facility] Infiltr ating duct Oncology Mallory gray PA carcinoma of r ight female breast (Primary Dx) 04/17/2022 Orders Only Breast Surgical [facility] Infiltratin g duct Oncology Mallory gray PA carcinoma of r ight female breast (Primary Dx) 04/16/2022 Telemedicine Breast Medical [facility] Infiltrating duct Oncology MD Nuzhat carcinoma of ri ght female breast 04/11/2022 Office Visit Breast Medical [facility] Infiltrating duct Oncology MD Nuzhat carcinoma of ri ght female breast 04/11/2022 Office Visit Breast Surgical Refinetti, Infiltrating duct Oncology Ami Guerrero carcinoma of ri ght MD Vinod female breast 04/11/2022 Ancillary Procedure Radiology [facility] Infiltr ating duct Mallory gray PA carcinoma of r ight female breast 04/11/2022 Orders Only Breast Medical Zaida Blackmon, Infiltrating duct Oncology PA carcinoma of ri ght female breast (Primary Dx) 04/11/2022 Orders Only Breast Medical [facility] Oncology MD Nuzhat 04/11/2022 Travel 04/10/2022 Orders Only Gastrointestinal Boyce, Gale, Infiltratin g duct Medical Oncology POST GRADUATE INTERN carcinoma o f right female breast (Primary Dx) 04/09/2022 Orders Only Breast Medical [place], Infiltrating duct Oncology MD Nuzhat carcinoma of ri ght female breast (Primary Dx) 04/09/2022 Telephone Breast Medical Gale Boyce, Oncology POST GRADUATE INTERN 04/01/2022 Infusion Infusion Services Boyce Gale, Infiltrati ng duct POST GRADUATE INTERN carcinoma of ri ght female breast (Primary Dx) 04/01/2022 Travel 03/25/2022 Infusion Infusion Services Boyce Gale, Infiltrati ng duct POST GRADUATE INTERN carcinoma of ri ght female breast (Primary Dx) 03/25/2022 Orders Only Breast Medical [facility] Oncology MD Nuzhat 03/25/2022 Orders Only Breast Medical Gale Boyce, Infiltrating duct Oncology POST GRADUATE INTERN carcinoma of ri ght female breast (Primary Dx) 03/25/2022 Travel 03/18/2022 Infusion Infusion Services [facility] Infiltrati ng duct MD Nuzhat carcinoma of ri ght female breast (Primary Dx) 03/18/2022 Travel 03/13/2022 Orders Only Gastrointestinal Boyce Gale, Infiltratin g duct Medical Oncology POST GRADUATE INTERN carcinoma o f right female breast (Primary Dx) 03/11/2022 Telemedicine Breast Medical [facility] Infiltrating duct Oncology MD Nuzhat carcinoma of ri ght female breast (Primary Dx) 03/11/2022 Infusion Infusion Services SadieClifton Hillati ng duct MD Nuzhat carcinoma of ri ght female breast 03/11/2022 Travel 03/10/2022 Orders Only Breast Medical Gale Boyce, Oncology POST GRADUATE INTERN 03/10/2022 Orders Only Breast Medical Sadie-Iheme, Infiltrating duct Oncology MD Nuzhat carcinoma of ri ght female breast (Primary Dx) 03/04/2022 Infusion Infusion Services Gale Boyce, Infiltrati ng duct POST GRADUATE INTERN carcinoma of ri ght female breast (Primary Dx) 03/04/2022 Orders Only Breast Surgical [facility] Oncology Mallory gray PA 03/04/2022 Travel 03/03/2022 Orders Only Breast Surgical [facility] Oncology Mallory gray PA 03/03/2022 Orders Only Breast Surgical [facility] Infiltratin g duct Oncology Mallory gray PA carcinoma of r ight female breast (Primary Dx) 02/25/2022 Infusion Infusion Services Gale Boyce, Infiltrati ng duct POST GRADUATE INTERN carcinoma of ri ght female breast (Primary Dx) 02/25/2022 Travel 02/24/2022 Orders Only Breast Surgical [facility] Infiltratin g duct Oncology Mallory gray PA carcinoma of r ight female breast (Primary Dx) 02/18/2022 Infusion Infusion Services Gale Boyce, Infiltrati ng duct POST GRADUATE INTERN carcinoma of ri ght female breast (Primary Dx) 02/18/2022 Orders Only Breast Medical Gale Boyce, Oncology POST GRADUATE INTERN 02/18/2022 Travel 02/18/2022 Orders Only Breast Medical Sadie-Jose Cruz, Oncology MD Nuzhat 02/11/2022 Office Visit Breast Medical [place], Infiltrating duct Oncology MD Nuzhat carcinoma of ri ght female breast (Primary Dx) 02/11/2022 Travel 02/04/2022 Infusion Infusion Services Gale Boyce, Infiltrati ng duct POST GRADUATE INTERN carcinoma of ri ght female breast (Primary Dx) 02/04/2022 Travel 01/29/2022 Infusion Infusion Services Gale Boyce, Infiltrati ng duct POST GRADUATE INTERN carcinoma of ri ght female breast (Primary Dx) 01/29/2022 Travel 01/23/2022 Infusion Infusion Services Ventura Boyceisti, Infiltrati ng duct POST GRADUATE INTERN carcinoma of ri ght female breast 01/23/2022 Orders Only Gastrointestinal Gale Boyce, Infiltratin g duct Medical Oncology POST GRADUATE INTERN carcinoma o f right female breast (Primary Dx) 01/23/2022 Travel 01/22/2022 Orders Only Gastrointestinal Gale Boyce, Medical Oncology POST GRADUATE INTERN 01/17/2022 Hospital Encounter Cardiology Boyce, Gale, Infiltrat ing duct POST GRADUATE INTERN carcinoma of ri ght female breast 01/17/2022 Travel 01/15/2022 Infusion Infusion Services BoyceGeorgiei, Infiltrati ng duct POST GRADUATE INTERN carcinoma of ri ght female breast (Primary Dx) 01/15/2022 Telemedicine Breast Medical [facility]ie[facility]woody, Infiltrating duct Oncology MD Nuzhat carcinoma of ri ght female breast (Primary Dx) 01/15/2022 Travel 01/14/2022 Orders Only Breast Medical Sadie-Jose Cruz, Oncology MD Nuzhat 01/08/2022 Infusion Infusion Services Georgie Boycei, Infiltrati ng duct POST GRADUATE INTERN carcinoma of ri ght female breast (Primary Dx) 01/08/2022 Travel 01/02/2022 Ancillary Procedure Radiology Opal Cancer Mónica Veras MD 01/02/2022 Ancillary Procedure Radiology Opal Cancer Mónica Veras MD 01/02/2022 Ancillary Procedure Radiology [facility] Cancer Mónica Veras MD 01/02/2022 Ancillary Procedure Radiology Opal Cancer Mónica Veras MD 01/02/2022 Ancillary Procedure Radiology Opal Cancer Mónica Veras MD 01/02/2022 Ancillary Procedure Radiology Opal Cancer Mónica Veras MD 01/02/2022 Ancillary Procedure Radiology Opal Cancer Mónica Veras MD 01/02/2022 Ancillary Procedure Radiology Opal Cancer Mónica Veras MD 01/02/2022 Ancillary Procedure Radiology Opal Cancer Mónica Veras MD 01/01/2022 Infusion Infusion Services Gale Boyce, Infiltrati ng duct POST GRADUATE INTERN carcinoma of ri ght female breast 01/01/2022 Orders Only Breast Medical Gale Boyce, Infiltrating duct Oncology POST GRADUATE INTERN carcinoma of ri ght female breast (Primary Dx) 01/01/2022 Orders Only Breast Surgical [facility] Oncology Mallory gray PA 01/01/2022 Travel 12/31/2021 Orders Only Breast Medical Sadie[facility], Oncology MD Nuzhat 12/31/2021 Orders Only Breast Medical Gale Boyce, Oncology POST GRADUATE INTERN 12/25/2021 Infusion Infusion Services BoyceVenturaGale, Infiltrati ng duct POST GRADUATE INTERN carcinoma of ri ght female breast (Primary Dx) 12/25/2021 Travel 12/20/2021 Telephone Infusion Services Alice Canales Follow-up (C1D1 A, RN chemo callback) 12/19/2021 Orders Only Oncology Nuzhat Cuba MD 12/19/2021 Orders Only Gastrointestinal BoyceGale, Medical Oncology POST GRADUATE INTERN 12/18/2021 Infusion Infusion Services Boyce, Gale, Infiltrati ng duct POST GRADUATE INTERN carcinoma of ri ght female breast (Primary Dx) 12/18/2021 Orders Only Breast Medical BoyceGale, Oncology POST GRADUATE INTERN 12/18/2021 Travel 12/16/2021 Hospital Encounter Radiology Gale Boyce, Infiltrat ing duct POST GRADUATE INTERN carcinoma of right Avritscher, female breast MD Chandra 12/16/2021 Hospital Encounter Lab Hannah Mora PA 12/16/2021 Documentation Radiology Brenda Phipps RN 12/16/2021 Travel 12/16/2021 Orders Only Breast [...] Shanks MA 12/06/2021 Office Visit Breast Medical [facility], Infiltrating duct Oncology MD Nuzhat carcinoma of ri ght female breast (Primary Dx) 12/06/2021 Hospital Encounter Radiology [facility] Infiltra ting duct Mallory gray PA carcinoma of r ight female breast 12/06/2021 Ancillary Procedure Radiology [facility] Mallory gray PA 12/06/2021 Ancillary Procedure Radiology [facility] Infiltr ating duct Mallory gray PA carcinoma of r ight female breast 12/06/2021 Orders Only Breast Medical Sadie-Jose Cruz, Oncology MD Nuzhat 12/06/2021 Orders Only Breast Surgical [facility] Infiltratin g duct Oncology Mallory gray PA carcinoma of r ight female breast (Primary Dx) 12/06/2021 Travel 12/04/2021 Orders Only Breast Surgical [facility] Oncology Mallory gray PA 11/26/2021 Orders Only Breast Surgical [facility] Infiltratin g duct Oncology Mallory gray PA carcinoma of r ight female breast (Primary Dx) 11/26/2021 Telephone Breast Surgical Refinetti, Oncology Ami Brock MD 11/26/2021 Orders Only [...] phy abnormal 11/20/2021 Ancillary Procedure Radiology Jeanmarie MammogrTIAN Chase abnormal 11/20/2021 Ancillary Procedure Radiology Mika MurryogrTIAN Chase abnormal 11/20/2021 Travel 11/14/2021 Orders Only Gynecology Jeanmarie, Mammography abn ormal (Primary Dx); TIAN Gallagher Malignant neopl asm of endometrium after 08/11/2021 Immunizations Name Administration Dates Next Due Moderna SARS-CoV-2 Vaccination 07/15/2021, 01/14/2021, 12/17 Surgical History Surgery Date Site/Laterality Comments PATELLA FRACTURE SURGERY CHOLECYSTECTOMY 09/14/2005 - lap dominic with h ernia 09/13/2006 repair LAPAROTOMY EXPLORATORY 09/14/1945 - abdominal injury-from 09/13/1946 glass injury HERNIA REPAIR 09/14/2005 - UMbilical 09/13/2006 HERNIA REPAIR Abdominal, TOTAL ABDOMINAL HYSTERECTOMY W/ 09/14/2015 - BILATERAL SALPINGOOPHORECTOMY 09/13/2016 BREAST BIOPSY Medical History Medical History Date Comments Psoriasis Hand wart Diabetes mellitus Reflux gastritis Hyperlipidemia Cancer Gastroesophageal reflux disease Hypertension Family History Medical History Relation Name Comments -Gynecology (Ovary, Endometrial, Cervix, Vagina) Cousin Lowell uterine -Gastrointestinal (Esophagus, Liver, Bile Duct, Paternal Aunt esophageal Stomach, Pancreas, Colon, Rectum, Anus Relation Name Status Comments Coudoreen Etienne Alive Paternal Aunt Social History Tobacco Use Types Packs/Day Years Used Date Smoking Tobacco: Never Smokeless Tobacco: Never Alcohol Use Standard Drinks/Week Comments No 0 (1 standard drink = 0.6 oz pure alcoho l) Sex Assigned at Date Recorded Not on file Job Start Date Occupation Industry Not on file Not on file Not on file COVID-19 Exposure Response Date Recorded In the last 10 days, have you been in contact with No / Unsu re 08/06/2022 8:24 AM USED CAR LOT ATTENDANT someone who was confirmed or suspected to [...] Sign Reading Time Taken Comments Blood Pressure 117/58 08/06/2022 9:31 AM USED CAR LOT ATTENDANT Pulse 69 08/06/2022 9:31 AM USED CAR LOT ATTENDANT Temperature 36.4 C (97.6 F) 08/06/2022 9:31 AM USED CAR LOT ATTENDANT Respiratory Rate 18 08/06/2022 9:31 AM USED CAR LOT ATTENDANT Oxygen Saturation 98% 07/17/2022 1:01 PM CDT Inhaled Oxygen Concentration - - Weight 76.3 kg (168 lb 3.4 oz) 08/06/2022 9:31 AM USED CAR LOT ATTENDANT Height 161.5 cm (5' 3.58") 05/21/2022 10:55 AM CDT Body Mass Index 29.25 05/21/2022 10:55 AM CDT Plan of Treatment Date Type Specialty Care Team Description 08/19/2022 Ancillary Procedure Radiology Ami Lira MD [address] [place] [phone] 08/19/2022 Ancillary Procedure Radiology Ami Lira MD [address] [place] [phone] 08/19/2022 Office Visit Breast Surgical Ami Lira Oncology Yolanda Brock MD [address] [place] [phone] 08/29/2022 Office Visit Hematology Gaviota Schaefer MD [address] [place] [address] [phone] 08/29/2022 Consult Internal Medicine Mallory Marino PA [address] [place] [phone] 08/29/2022 POEM Appointments Anesthesiology Mónica Joseph MD [address] [place] [phone] 09/10/2022 Clinical Support Covid Mallory Marino PA [address] [place] [phone] 09/10/2022 Appointment Radiology Mallory Marino PA [address] [place] [address] 09/11/2022 Hospital Encounter Ami Lira MD [address] [place] [address] 09/11/2022 Surgery Ami Lira, MASTECTOMY - O THER [facility] [place], [place] [id number] Name Priority Associated Diagnoses Date/Time SEGMENTAL MASTECTOMY - OTHER Infiltrating duct 1 7:00 AM USED CAR LOT ATTENDANT carcinoma of right female breast AXILLARY LYMPHADENECTOMY Infiltrating duct 09/11 7:00 AM USED CAR LOT ATTENDANT carcinoma of right female breast Health Maintenance Due Date Last Done Comments COVID-19 Vaccination (4 - Booster 09/09/2021 07/15/2021, , for Moderna series) 12/17/2020 Medical Devices Implanted Type Area Prepress Manager Device Shelf Model / Identifier Expiration Date Ser ial / Lot [place], Margarita Slim 8fr - [id number] Port [place]ARD PERIPHE RAL 12/12/2022 [id number] / Implanted: Qty: 1 on 12/16/2021 at [facility] CULAR [id number] / [id number] Procedures Procedure Name Priority Date/Time Associated Comments Diagnosis FRACTIONATED BILIRUBIN Routine 08/06/2022 8:[address] Results for this AM USED CAR LOT ATTENDANT carcinoma of right procedure are in female breast the results section. TOTAL PROTEIN Routine 08/06/2022 8:22 Infiltrating duct Result s for this AM USED CAR LOT ATTENDANT carcinoma of right procedure are in female breast the results section. ASPARTATE Routine 08/06/2022 8:22 Infiltrating duct Results for this AMINOTRANSFERASE AM USED CAR LOT ATTENDANT carcinoma of right proce dure are in female breast the results section. ALANINE AMINOTRANSFERASE Routine 08/06/2022 8:22 Infiltrating duct Results for this AM USED CAR LOT ATTENDANT carcinoma of right procedure are in female breast the results section. ALKALINE PHOSPHATASE Routine 08/06/2022 8:22 Infiltrating duct Results for this AM USED CAR LOT ATTENDANT carcinoma of right procedure are in female breast the results section. ALBUMIN LEVEL Routine 08/06/2022 8:22 Infiltrating duct Result s for this AM USED CAR LOT ATTENDANT carcinoma of right procedure are in female breast the results section. CALCIUM LEVEL TOTAL Routine 08/06/2022 8:22 Infiltrating duct Results for this AM USED CAR LOT ATTENDANT carcinoma of right procedure are in female breast the results section. .GLOMERULAR FILTRATION Routine 08/06/2022 8:[address] Results for this RATE AM USED CAR LOT ATTENDANT carcinoma of right procedure are in female breast the results section. SERUM CREATININE Routine 08/06/2022 8:22 Infiltrating duct Res ults for this AM USED CAR LOT ATTENDANT carcinoma of right procedure are in female breast the results section. ELECTROLYTE PANEL Routine 08/06/2022 8:22 Infiltrating duct Re sults for this AM USED CAR LOT ATTENDANT carcinoma of right procedure are in female breast the results section. BLOOD UREA NITROGEN Routine 08/06/2022 8:22 Infiltrating duct Results for this AM USED CAR LOT ATTENDANT carcinoma of right procedure are in female breast the results section. GLUCOSE LEVEL Routine 08/06/2022 8:22 Infiltrating duct Result s for this AM USED CAR LOT ATTENDANT carcinoma of right procedure are in female breast the results section. MANUAL DIFFERENTIAL Routine 08/06/2022 8:22 Infiltrating duct Results for this AM USED CAR LOT ATTENDANT carcinoma of right procedure are in female breast the results section. Results CBC Routine 08/06/2022 8:22 Infiltrating duct Results for this AM USED CAR LOT ATTENDANT carcinoma of right procedure are in female breast the results section. COMPREHENSIVE METABOLIC Routine 08/06/2022 8:22 Infiltrating d uct PANEL AM USED CAR LOT ATTENDANT carcinoma of right female breast COMPLETE BLOOD COUNT W/ Routine 08/06/2022 8:22 Infiltrating d uct DIFFERENTIAL AM USED CAR LOT ATTENDANT carcinoma of right female breast MANUAL DIFFERENTIAL Routine 07/17/2022 11:49 Infiltrating duct Results for this AM CDT carcinoma of right procedure are in female breast the results section. Results CBC Routine 07/17/2022 11:49 Infiltrating duct Result s for this AM CDT carcinoma of right procedure are in female breast the results section. BILIRUBIN TOTAL Routine 07/17/2022 11:49 Infiltrating duct Res ults for this AM CDT carcinoma of right procedure are in female breast the results section. ALKALINE PHOSPHATASE Routine 07/17/2022 11:49 Infiltrating maritza t Results for this AM CDT carcinoma of right procedure are in female breast the results section. ALANINE AMINOTRANSFERASE Routine 07/17/2022 11:49 Infiltrating duct Results for this AM CDT carcinoma of right procedure are in female breast the results section. ASPARTATE Routine 07/17/2022 11:49 Infiltrating duct Result s for this AMINOTRANSFERASE AM CDT carcinoma of right proce dure are in female breast the results section. COMPLETE BLOOD COUNT W/ Routine 07/17/2022 11:49 Infiltrating duct DIFFERENTIAL AM CDT carcinoma of right female breast MANUAL DIFFERENTIAL Routine 07/04/2022 11:01 Infiltrating duct Results for this AM CDT carcinoma of right procedure are in female breast the results section. Results CBC Routine 07/04/2022 11:01 Infiltrating duct Result s for this AM CDT carcinoma of right procedure are in female breast the results section. BILIRUBIN TOTAL Routine 07/04/2022 11:01 Infiltrating duct Res ults for this AM CDT carcinoma of right procedure are in female breast the results section. ALKALINE PHOSPHATASE Routine 07/04/2022 11:01 Infiltrating maritza t Results for this AM CDT carcinoma of right procedure are in female breast the results section. ALANINE AMINOTRANSFERASE Routine 07/04/2022 11:01 Infiltrating duct Results for this AM CDT carcinoma of right procedure are in female breast the results section. ASPARTATE Routine 07/04/2022 11:01 Infiltrating duct Result s for this AMINOTRANSFERASE AM CDT carcinoma of right proce dure are in female breast the results section. COMPLETE BLOOD COUNT W/ Routine 07/04/2022 11:01 Infiltrating duct DIFFERENTIAL AM CDT carcinoma of right female breast US LEG VENOUS DOPPLER Routine 06/30/2022 2:46 Infiltrating maritza t Results for this BILATERAL PM CDT carcinoma of right procedure are in female breast the results section. US ARM VENOUS DOPPLER Routine 06/30/2022 2:46 Infiltrating maritza t Results for this BILATERAL PM CDT carcinoma of right procedure are in female breast the results section. CT ABDOMEN PELVIS W Routine 06/23/2022 12:20 Infiltrating duct Results for this CONTRAST PM CDT carcinoma of right procedure are in female breast the results section. POC CREATININE Routine 06/23/2022 11:41 Results f or this AM CDT procedure are i n the results section. MANUAL DIFFERENTIAL Routine 06/11/2022 12:08 [address] Results for this PM CDT carcinoma of right procedure are in female breast the results section. Results CBC Routine 06/11/2022 12:08 [address] Result s for this PM CDT carcinoma of right procedure are in female breast the results section. 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 TOTAL PROTEIN Routine 06/11/2022 12:[address] Resul ts for this PM CDT carcinoma of right procedure are in female breast the results section. ASPARTATE Routine 06/11/2022 12:[address] Result s for this AMINOTRANSFERASE PM CDT carcinoma of right proce dure are in female breast the results section. 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 ALBUMIN LEVEL Routine 06/11/2022 12:[address] Resul ts for this PM CDT carcinoma of right procedure are in female breast the results section. CALCIUM LEVEL TOTAL Routine 06/11/2022 12:[address] Results for this PM CDT carcinoma of right procedure are in female breast the results section. 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 SERUM CREATININE Routine 06/11/2022 12:[address] Re sults for this PM CDT carcinoma of right procedure are in female breast the results section. ELECTROLYTE PANEL Routine 06/11/2022 12:[address] R esults for this PM CDT carcinoma of right procedure are in female breast the results section. BLOOD UREA NITROGEN Routine 06/11/2022 12:[address] Results for this PM CDT carcinoma of right procedure are in female breast the results section. GLUCOSE LEVEL Routine 06/11/2022 12:08 [address] Resul ts for this PM CDT carcinoma of right procedure are in female breast the results section. COMPLETE BLOOD COUNT W/ Routine 06/11/2022 12:08 [address] DIFFERENTIAL PM CDT carcinoma of right female breast COMPREHENSIVE METABOLIC Routine 06/11/2022 12:[address] PANEL PM CDT carcinoma of right female breast .GLOMERULAR FILTRATION Routine 05/21/2022 10:01 Infiltrating d uct Results for this RATE AM CDT carcinoma of right procedure are in female breast the results section. SERUM CREATININE Routine 05/21/2022 10:01 [address] Re sults for this AM CDT carcinoma of right procedure are in female breast the results section. MANUAL DIFFERENTIAL Routine 05/21/2022 10:01 [address] duct Results for this AM CDT carcinoma of right procedure are in female breast the results section. Results CBC Routine 05/21/2022 10:01 [address] duct Result s for this AM CDT carcinoma of right procedure are in female breast the results section. BILIRUBIN TOTAL Routine 05/21/2022 10:01 [address] duct Res ults for this AM CDT carcinoma of right procedure are in female breast the results section. ALKALINE PHOSPHATASE Routine 05/21/2022 10:01 Infiltrating maritza t Results for this AM CDT carcinoma of right procedure are in female breast the results section. ALANINE AMINOTRANSFERASE Routine 05/21/2022 10:01 [address] duct Results for this AM CDT carcinoma of right procedure are in female breast the results section. ASPARTATE Routine 05/21/2022 10:01 [address] duct Result s for this AMINOTRANSFERASE AM CDT carcinoma of right proce dure are in female breast the results section. SERUM CREATININE Routine 05/21/2022 10:01 [address] duct AM CDT carcinoma of right female breast BLOOD UREA NITROGEN Routine 05/21/2022 10:[address] Results for this AM CDT carcinoma of right procedure are in female breast the results section. COMPLETE BLOOD COUNT W/ Routine 05/21/2022 10:01 [address] DIFFERENTIAL AM CDT carcinoma of right female breast .GLOMERULAR FILTRATION Routine 04/23/2022 2:[address] Results for this RATE PM CDT carcinoma of right procedure are in female breast the results section. SERUM CREATININE Routine 04/23/2022 2:44 [address] duct Res ults for this PM CDT carcinoma of right procedure are in female breast the results section. MANUAL DIFFERENTIAL Routine 04/23/2022 2:44 [address] duct Results for this PM CDT carcinoma of right procedure are in female breast the results section. 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 BILIRUBIN TOTAL Routine 04/23/2022 2:44 [address] duct Resu lts for this PM CDT carcinoma of right procedure are in female breast the results section. ALKALINE PHOSPHATASE Routine 04/23/2022 2:44 [address] duct Results for this PM CDT carcinoma of right procedure are in female breast the results section. ALANINE AMINOTRANSFERASE Routine 04/23/2022 2:44 [address] duct Results for this PM CDT carcinoma of right procedure are in female breast the results section. ASPARTATE Routine 04/23/2022 2:44 [address] duct Results for this AMINOTRANSFERASE PM CDT carcinoma of right proce dure are in female breast the results section. SERUM CREATININE Routine 04/23/2022 2:[address] PM CDT carcinoma of right female breast BLOOD UREA NITROGEN Routine 04/23/2022 2:44 [address] duct Results for this PM CDT carcinoma of right procedure are in female breast the results section. COMPLETE BLOOD COUNT W/ Routine 04/23/2022 2:44 Infiltrating d uct DIFFERENTIAL PM CDT carcinoma of right female breast US CHEST/INFRACLAV Routine 04/11/2022 10:19 [address] Results for this AM CDT carcinoma of right procedure are in female breast the results section. US BREAST COMPLETE RIGHT Routine 04/11/2022 10:19 [address] duct Results for this AM CDT carcinoma of right procedure are in female breast the results section. MANUAL DIFFERENTIAL Routine 04/01/2022 12:12 [address] duct Results for this PM CDT carcinoma of right procedure are in female breast the results section. Results CBC Routine 04/01/2022 12:12 [address] duct Result s for this PM CDT carcinoma of right procedure are in female breast the results section. 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 Results CBC Routine 03/25/2022 1:26 [address] duct Results for this PM CDT carcinoma of right procedure are in female breast the results section. COMPLETE BLOOD COUNT W/ Routine 03/25/2022 1:26 Infiltrating d uct DIFFERENTIAL PM CDT carcinoma of right female breast MANUAL DIFFERENTIAL Routine 03/18/2022 12:23 [address] Results for this PM CDT carcinoma of right procedure are in female breast the results section. Results CBC Routine 03/18/2022 12:23 [address] duct Result s for this PM CDT carcinoma of right procedure are in female breast the results section. COMPLETE BLOOD COUNT W/ Routine 03/18/2022 12:[address] DIFFERENTIAL PM CDT carcinoma of right female breast MANUAL DIFFERENTIAL Routine 03/11/2022 10:44 [address]ating duct Results for this AM CDT carcinoma of right procedure are in female breast the results section. Results CBC Routine 03/11/2022 10:44 [address]ating duct Result s for this AM CDT carcinoma of right procedure are in female breast the results section. COMPLETE BLOOD COUNT W/ Routine 03/11/2022 10:44 [address] duct DIFFERENTIAL AM CDT carcinoma of right female breast MANUAL DIFFERENTIAL Routine 03/04/2022 12:14 Infiltrating duct [...] Results CBC Routine 02/11/2022 1:11 [address] duct Results for this PM CDT carcinoma of right procedure are in female breast the results section. BILIRUBIN TOTAL Routine 02/11/2022 1:11 [address] duct Resu lts for this PM CDT carcinoma of right procedure are in female breast the results section. ALKALINE PHOSPHATASE Routine 02/11/2022 1:11 [address] duct Results for this PM CDT carcinoma of right procedure are in female breast the results section. 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 ASPARTATE Routine 02/11/2022 1:[address] Results for this AMINOTRANSFERASE PM CDT carcinoma of right proce dure are in female breast the results section. COMPLETE BLOOD COUNT W/ Routine 02/11/2022 1:11 Infiltrating d uct DIFFERENTIAL PM CDT carcinoma of right female [...] ECHOCARDIOGRAM 2D Routine 01/17/2022 2:[address] Re sults for this COMPLETE PM CDT carcinoma of [...] Results CBC Routine 01/08/2022 8:42 [address] duct Results for this AM CDT carcinoma of right procedure are in female breast the results section. COMPLETE BLOOD COUNT W/ Routine 01/08/2022 8:42 Infiltrating d uct DIFFERENTIAL AM CDT carcinoma of right female [...] Results CBC Routine 12/18/2021 9:42 [address] Results for this AM CDT carcinoma of right procedure are in female breast the results section. BILIRUBIN TOTAL Routine 12/18/2021 9:42 [address] duct Resu lts for this AM CDT carcinoma of right procedure are in female breast the results section. ALKALINE PHOSPHATASE Routine 12/18/2021 9:42 [address] duct Results for this AM CDT carcinoma of right procedure are in female breast the results section. ALANINE AMINOTRANSFERASE Routine 12/18/2021 9:42 Infil[address]ating duct Results for this AM CDT carcinoma of right procedure are in female breast the results section. ASPARTATE Routine 12/18/2021 9:42 [address] duct Results for this AMINOTRANSFERASE AM CDT carcinoma of right proce dure are in female breast the results section. 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 POC GLUCOSE SCREEN Routine 12/16/2021 3:23 Result s for this PM CDT procedure are i [...] section. CYTOLOGY IMAGE-GUIDED Routine 12/13/2021 9:56 Infiltrating maritza t Results for this FNA INTERPRETATION AM CDT carcinoma of right pro cedure are in female breast the results section. CYTOLOGY IMAGE-GUIDED Routine 12/13/2021 9:54 Infiltrating maritza t Results for this FNA INTERPRETATION AM CDT carcinoma of right pro cedure are in female breast the results section. CT CHEST ABDOMEN PELVIS Routine 12/06/2021 1:17 Infiltrating d uct Results for this W WO CONTRAST PM [...] MAMMO POST PROCEDURE Routine 11/20/2021 5:56 Mammography Resu lts for this BILATERAL PM USED CAR LOT ATTENDANT abnormal procedure are i n the results section. US GUIDED AXILLARY LYMPH Routine 11/20/2021 5:47 Mammography Results for this NODE FNA LEFT PM USED CAR LOT ATTENDANT abnormal procedure are in the results section. US GUIDED BREAST BIOPSY Routine 11/20/2021 5:47 Mammography R esults for this LEFT PM USED CAR LOT ATTENDANT abnormal procedure are i n the results section. US GUIDED Routine 11/20/2021 5:47 Mammography Results for this INFRACLAVICULAR LYMPH PM USED CAR LOT ATTENDANT abnormal proced ure are in NODE FNA - RIGHT the results section. US GUIDED BREAST BIOPSY Routine 11/20/2021 5:47 Mammography R esults for this RIGHT PM USED CAR LOT ATTENDANT abnormal procedure are i n the results section. US HEAD NECK SOFT TISSUE Routine 11/20/2021 5:47 Mammography Results for this PM USED [employer] LOT ATTENDANT abnormal procedure are i n the results section. US CHEST Routine 11/20/2021 5:47 Mammography Results for this PM USED [employer] LOT ATTENDANT abnormal procedure are i n the results section. US BREAST COMPLETE Routine 11/20/2021 5:47 Mammography Result s for this BILATERAL PM USED CAR LOT ATTENDANT abnormal procedure are i n the results section. CYTOLOGY IMAGE-GUIDED Routine 11/20/2021 3:48 Mammography Res ults for this FNA INTERPRETATION PM USED CAR LOT ATTENDANT abnormal procedure are in the results section. PATHOLOGY BIOPSY Routine 11/20/2021 3:46 Mammography Results for this INTERPRETATION PM USED CAR LOT ATTENDANT abnormal procedure are in the results section. CYTOLOGY IMAGE-GUIDED Routine 11/20/2021 3:44 Mammography Res ults for this FNA INTERPRETATION PM USED CAR LOT ATTENDANT abnormal procedure are in the results section. PATHOLOGY BIOPSY Routine 11/20/2021 3:39 Mammography Results for this INTERPRETATION PM USED CAR LOT ATTENDANT abnormal procedure are in the results section. MAMMO DIGITAL DIAGNOSTIC Routine 11/20/2021 1:50 Mammography Results for this BILATERAL W JOE PM USED [employer] LOT ATTENDANT abnormal procedure a re in the results section. OSI MAMMO BILATERAL Routine 11/01/2021 12:43 Cancer Resu lts for this PM USED [employer] LOT ATTENDANT procedure are i n the results section. OSI US BREAST Routine 11/01/2021 12:43 Cancer Results fo r this PM USED CAR LOT ATTENDANT procedure are i n the results section. after 08/11/2021 Results .Serum Creatinine (08/06/2022 8:22 AM USED CAR LOT ATTENDANT)Only the most recent of5 resultswithin the time period is included. athologist Signature Creatinine 0.77 0.51 - 0.95 [place] mg/dL Comment: Testing performed at [facility], [address] [place] [address] Specimen Anatomical Collection Method Collection Time Receive d Time (Source) Location / / Volume Laterality Blood 08/06/2022 8:22 AM 8:26 USED CAR LOT ATTENDANT AM USED CAR LOT ATTENDANT Nuzhat Cuba MD LAB BLOOD ORDERABLES Performing Organization Address City/State/ZIP Code Phon e Number [address] (ABNORMAL) .CBC (08/06/2022 8:22 AM USED CAR LOT ATTENDANT)Only the most recent of23 resultswithin the time period is included. athologist Signature WBC 3.6 (L) 4.0 - 11.0 [place] K/uL Comment: All components of the CBC perfo rmed at [facility], [address] [place] [address] RBC 3.48 (L) 4.00 - 5.50 M/uL [place] Comment: As part of CBC testing performe d at [facility], [address] [place] [address] Hgb 10.6 (L) 12.0 - 16.0 gm/dL [place] Comment: As part of CBC or as an individ ual orderable testing performed at [facility], [address] [place] [address] Hct 32.8 (L) 37.0 - 47.0 % [place] Comment: As part of CBC or as an individ ual orderable testing performed at [facility], [address] [place] [address] MCV 94 82 - 98 fL [place] Comment: As part of CBC testing performe d at [facility], [address] [place], [place] [address] MCH 30.5 27.0 - 31.0 pg [place] Comment: As part of CBC testing performe d at [facility], [address] [place] [address] MCHC 32.3 31.0 - 36.0 gm/dL [place] Comment: As part of CBC testing performe d at [facility], [address] [place] [address] RDW-SD 58.0 (H) 35.1 - 46.3 fL [place] Comment: As part of CBC testing performe d at [facility], [address] [place] [address] RDW-CV 17.8 (H) 12.0 - 15.5 % [place] Comment: As part of CBC testing performe d at [facility], [address] [place] [address] Platelet count 411 140 - 440 K/uL [place] Comment: As part of CBC or as an individ ual orderable testing performed at [facility], [address] [place] [address] MPV 9.6 4.0 - 10.4 fL [place] Comment: As part of CBC testing performe d at [facility], [address] [place] [address] Specimen Anatomical Collection Method Collection Time Receive d Time (Source) Location / / Volume Laterality Blood 08/06/2022 8:22 AM 8:26 USED CAR LOT ATTENDANT AM USED CAR LOT ATTENDANT Narrative [place] - 08/06/2022 9:14 AM USED CAR LOT ATTENDANT Within 72 hours prior to chemotherapy. Gale Boyce APN LAB BLOOD ORDERABLES Performing Organization Address City/State/ZIP Code Phon e Number [address] Glomerular Filtration Rate (08/06/2022 8:22 AM USED CAR LOT ATTENDANT)Only the most recent of5 resultswithin the time period is included. athologist Signature eGFR 77 >=60 [place] mL/min/1.73 sq. m Comment: The eGFRcr is calculated with the 2021 C KD-EPI creatinine equation using creatinine, patient's age, and sex for adults 18 years of age and older. Other factors, especially muscle mass, may affect accuracy and need to be considered. According to the Kidney Disease: Improvi ng Global Outcomes (KDIGO) CKD Work Group 2012 Clinical Practice Guideline, chronic kidney disease (CKD) is defined as the abnormalities of kidney structure or function, present for more than 3 months, with implications for health. CKD should be c lassified by cause, GFR category, and albuminuria category. KDIGO guidelines provide the following GFR categories Stage Description GFR mL/min/1.73 m2 G1* Normal or high >= 90 G2* Mildly decreased 60-89 G3a Mildly to moderately decreased 45-59 G3b Moderately to severely decreased 30- 44 G4 Severely decreased 15-29 G5 Kidney failure <15 *In the absence of evidence of kidney da mage, neither G1 nor G2 fulfill criteria for CKD. Testing performed at [facility], [address] [place] [address] Specimen Anatomical Collection Method Collection Time Receive d Time (Source) Location / / Volume Laterality Blood 08/06/2022 8:22 AM 8:26 USED CAR LOT ATTENDANT AM USED CAR LOT ATTENDANT Nuzhat Cuba MD LAB BLOOD ORDERABLES Performing Organization Address City/State/ZIP Code Phon e Number [address] Fractionated Bilirubin (08/06/2022 8:22 AM USED CAR LOT ATTENDANT)Only the most recent of2 results within the time period is included. athologist Signature Bili Total <0.3 <=1.2 mg/dL [place] Comment: Direct and indirect bilirubin will not b e reported when Total bilirubin result is <0.3 mg/dL Indocyanine Green (ICG) may cause falsel y elevated bilirubin results. Total and direct bilirubin must not be measured from samples containing indocyanine green. False elevation of total bilirubin can b e seen in patients with IgG concentrations above 28 g/L. Testing performed at [facility], [address] [place], [place] [id number] Specimen Anatomical Collection Method Collection Time Receive d Time (Source) Location / / Volume Laterality Blood 08/06/2022 8:22 AM 8:26 USED CAR LOT ATTENDANT AM USED CAR LOT ATTENDANT Nuzhat Sadie-Ihwoody RAMIREZ LAB BLOOD ORDERABLES Performing Organization Address City/State/ZIP Code Phon e Number [address] (ABNORMAL) Differential (08/06/2022 8:22 AM USED CAR LOT ATTENDANT)Only the most recent of23 resultswithin the time period is included. athologist Signature Total Cells 100 [place] Comment: All components of the Different ial performed at [facility], [address] [place] [address] Neutrophil % 58.0 42.0 - 66.0 % [place] Comment: The Neutrophil count includes Bands. All components of the Differential perfo rmed at [facility], [address] [place] [address] Lymphocyte % 27.0 24.0 - 44.0 % [place] Comment: As part of Differential, testin g performed at [facility], [address] [place] [address] Monocyte % 12.0 (H) 2.0 - 7.0 % [place] Comment: As part of Differential, testin g performed at [facility], [address] [place] [address] Eosinophil % 1.0 1.0 - 4.0 % [facility] Comment: As part of Differential, testin g performed at [facility], [address] [place] [address] Basophil % 2.0 (H) 0.0 - 1.0 % [place] Comment: As part of Differential, testin g performed at [facility], [address] [place] [address] Neutrophil Abs 2.09 1.70 - 7.30 K/uL [place] Comment: As part of Differential, testin g performed at [facility], [address] [place] [address] Lymphocyte Abs 0.97 (L) 1.00 - 4.80 K/uL [place] Comment: As part of Differential, testin g performed at [facility], [address] [place], [place] [address] Monocyte Abs 0.43 0.08 - 0.70 K/uL [place] Comment: As part of Differential, testin g performed at [facility], [address] [place] [address] Eosinophil Abs 0.04 0.04 - 0.40 K/uL [place] Comment: As part of Differential, testin g performed at [facility], [address] [place] [address] Basophil Abs 0.07 0.00 - 0.10 K/uL [place] Comment: As part of Differential, testin g performed at [facility], [address] [place] [address] RBC Morph Present (A) Normal [facility] Comment: As part of Differential, testin g performed at [facility], [address] [place] [address] PLT Morph Normal Normal [facility] Comment: As part of Differential, testin g performed at [facility], [address] [place] [address] Schistocyte Few (A) Not Seen [place] Comment: As part of Differential, testin g performed at [facility], [address] [place] [address] Ovalocyte Present (A) Not Present [facility] Comment: As part of Differential, testin g performed at [facility], [address] [place] [address] Tear Drop Present (A) Not Present [place] Comment: As part of Differential, testin g performed at [facility], [address] [place] [address] [place] Cells Present (A) Not Present [place] Comment: As part of Differential, testin g performed at [facility], [address] [place] [address] Specimen Anatomical Collection Method Collection Time Receive d Time (Source) Location / / Volume Laterality Blood 08/06/2022 8:22 AM 8:26 USED CAR LOT ATTENDANT AM USED CAR LOT ATTENDANT Narrative [place] - 08/06/2022 9:14 AM USED CAR LOT ATTENDANT Within 72 hours prior to chemotherapy. Gale Boyce APN LAB BLOOD ORDERABLES Performing Organization Address City/[facility]/ZIP Code Phon e Number [address] (ABNORMAL) BUN (08/06/2022 8:22 AM USED CAR LOT ATTENDANT)Only the most recent of5 resultswithin the time period is included. athologist Signature BUN 27 (H) 6 - 23 mg/dL [place] Comment: Testing performed at [facility], [address] [place] [address] Specimen Anatomical Collection Method Collection Time Receive d Time (Source) Location / / Volume Laterality Blood 08/06/2022 8:22 AM 2 8:26 USED CAR LOT ATTENDANT AM USED CAR LOT ATTENDANT Nuzhat Cuba MD LAB BLOOD ORDERABLES Performing Organization Address City/[facility]/ZIP Code Phon e Number [address] ALT (08/06/2022 8:22 AM USED CAR LOT ATTENDANT)Only the most recent of9 resultswithin the time period is included. athologist Signature ALT 12 <=33 U/L [place] Comment: Testing performed at [facility], [address] [place] [address] Specimen Anatomical Collection Method Collection Time Receive d Time (Source) Location / / Volume Laterality Blood 08/06/2022 8:22 AM 2 8:26 USED CAR LOT ATTENDANT AM USED CAR LOT ATTENDANT Nuzhat Cuba MD LAB BLOOD ORDERABLES Performing Organization Address City/[facility] Code Phon e Number [address] Aspartate Aminotransferase (08/06/2022 8:22 AM USED CAR LOT ATTENDANT)Only the most recent of9 resultswithin the time period is included. athologist Signature AST 12 <=32 U/L [place] Comment: Testing performed at [facility], [address] [place] [address] Specimen Anatomical Collection Method Collection Time Receive d Time (Source) Location / / Volume Laterality Blood 08/06/2022 8:22 AM 8:26 USED CAR LOT ATTENDANT AM USED CAR LOT ATTENDANT Nuzhat Cuba MD LAB BLOOD ORDERABLES Performing Organization Address City/[facility]/ZIP Code Phon e Number [address] Total Protein (08/06/2022 8:22 AM USED CAR LOT ATTENDANT)Only the most recent of2 resultswithin the time period is included. athologist [facility] Total Protein 6.5 6.4 - 8.3 [place] g/dL Comment: Testing performed at [facility], [address] [place] [address] Specimen Anatomical Collection Method Collection Time Receive d Time (Source) Location / / Volume Laterality Blood 08/06/2022 8:22 AM 2 8:26 USED CAR LOT ATTENDANT AM USED CAR LOT ATTENDANT Nuzhat Cuba MD LAB BLOOD ORDERABLES Performing Organization Address [facility] Phon e Number [address] Alkaline Phosphatase (08/06/2022 8:22 AM USED CAR LOT ATTENDANT)Only the most recent of9 results within the time period is included. athologist [facility] Alk Phos 61 35 - 104 U/L [place] Comment: Testing performed at [facility], [address] [place] [address] Specimen Anatomical Collection Method Collection Time Receive d Time (Source) Location / / Volume Laterality Blood 08/06/2022 8:22 AM 2 8:26 USED CAR LOT ATTENDANT AM USED CAR LOT ATTENDANT Nuzhat Cuba MD LAB BLOOD ORDERABLES Performing Organization Address City/[facility] Phon e Number [address] (ABNORMAL) Glucose Level (08/06/2022 8:22 AM USED CAR LOT ATTENDANT)Only the most recent of2 resultswithin the time period is included. athologist Signature Glucose Level 166 (H) 70 - 99 [place] mg/dL Comment: Effective 04/09/16, the glucose reference intervals have been updated based on [place] [employer] guidelines (Standards of Medical Care in Diabetes 2016. Diabetes Care 2016; 39: S13-S22). Fasting blood glucose: Normal: 70-99 mg/dL Impaired fasting glucose (increased risk for diabetes or pre-diabetes): 100- 125 mg/dL Diabetes mellitus: >/=126 mg/dL Random blood glucose: Normal: 70-199 mg/dL Note: Random glucose >100 mg/dL is assoc iated with increased risk for diabetes Testing performed at [facility], [address] [place] [address] Specimen Anatomical Collection Method Collection Time Receive d Time (Source) Location / / Volume Laterality Blood 08/06/2022 8:22 AM 2 8:26 USED CAR LOT ATTENDANT AM USED CAR LOT ATTENDANT Nuzhat Cuba MD LAB BLOOD ORDERABLES Performing Organization Address City/[facility]/ZIP Code Phon e Number [address] Calcium Level (08/06/2022 8:22 AM USED CAR LOT ATTENDANT)Only the most recent of2 resultswithin the time period is included. P athologist Signature Calcium Lvl 9.6 8.4 - 10.2 [place] [facility] mg/dL Comment: Testing performed at [facility], [address] [place], [place] [id number] Specimen Anatomical Collection Method Collection Time Receive d Time (Source) Location / / Volume Laterality Blood 08/06/2022 8:22 AM 2 8:26 USED CAR LOT ATTENDANT AM USED CAR LOT ATTENDANT Nuzhat Cuba MD LAB BLOOD ORDERABLES Performing Organization Address City/[facility] Phon e Number [address] Albumin Level (08/06/2022 8:22 AM USED CAR LOT ATTENDANT)Only the most recent of2 resultswithin the time period is included. P athologist Signature Albumin Lvl 3.9 3.5 - 5.2 [place] gm/dL Comment: Testing performed at [facility], [address] [place], [place] [address] Specimen Anatomical Collection Method Collection Time Receive d Time (Source) Location / / Volume Laterality Blood 08/06/2022 8:22 AM 2 8:26 USED CAR LOT ATTENDANT AM USED CAR LOT ATTENDANT Nuzhat Cuba MD LAB BLOOD ORDERABLES Performing Organization Address City/[facility]/ZIP [facility] Phon e Number [address] Electrolyte Panel (08/06/2022 8:22 AM USED CAR LOT ATTENDANT)Only the most recent of2 resultswithin the time period is included. athologist Signature Sodium Lvl 140 136 - 145 [place] mEq/L Comment: Testing performed at [facility], [address] [place] [address] Potassium Lvl 4.1 3.5 - 5.1 mEq/L [place] Comment: Testing performed at [facility], [address] [place] [address] Chloride 105 98 - 107 mEq/L [place] Comment: Testing performed at [facility], [address] [place], [place] [address] CO2 26 22 - 29 mEq/L [place] Comment: Testing performed at [facility], [address] [place] [address] Anion Gap 9 4 - 14 mEq/L [place] Comment: Testing performed at [facility], [address] [place] [address] Specimen Anatomical Collection Method Collection Time Receive d Time (Source) Location / / Volume Laterality Blood 08/06/2022 8:22 AM 2 8:26 USED CAR LOT ATTENDANT AM USED CAR LOT ATTENDANT Nuzhat Cuba MD LAB BLOOD ORDERABLES Performing Organization Address City/[facility]/ZIP [facility] Phon e Number [place] [phone] [place] [address] Bilirubin, total (07/17/2022 11:49 AM CDT)Only the most recent of7 resultswithin the time period is included. athologist Signature Bili Total 0.3 <=1.2 mg/dL [place] Comment: Indocyanine Green (ICG) may cause falsel y elevated bilirubin results. Total and direct bilirubin must not be measured from samples containing indocyanine green. False elevation of total bilirubin can b e seen in patients with IgG concentrations above 28 g/L. Testing performed at [facility], [address] [facility], [place] [address] Specimen Anatomical Collection Method Collection Time Receive d Time (Source) Location / / Volume Laterality Blood 07/17/2022 11:49 07/17/2022 AM CDT 11:50 AM CDT Nuzhat LeouAngela RAMIREZ LAB BLOOD ORDERABLES Performing Organization Address City/State/ZIP Code Phon e Number [place] [address] [place] [address] US Leg Venous Doppler Bilateral (06/30/2022 2:46 PM CDT) Anatomical Region Laterality Modality Leg, Extremity Ultrasound Specimen (Source) Anatomical Collection Method Collection Time Re ceived Time Location / / Volume Laterality 06/30/2022 4:06 PM CDT Impressions 06/30/2022 4:21 PM CDT Bilateral lower extremity deep vein thro mbosis, most extensive in the left lower extremity. 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 Work up for upper and lower extremity DVT, small PE on right side with small pulmonary infarction seen on CT abdomen. Work up for upper and lower extremity DVT Comparison: None Technique: Grayscale and color/spectral Doppler ultrasound of the bilateral lower extremity veins was performed. Findings: Left lower extremity: Thrombus identifie d throughout the left lower extremity, involving the common femoral vein, femoral vein, popliteal vein and peroneal vein of the calf. Portion of the thrombus is o cclusive, especially in the mid to dista l femoral vein and popliteal vein. Right lower extremity: Thrombus identifi ed in the right popliteal vein and right posterior tibial vein of the calf. The right peroneal vein and anterior tibial vein are patent. Findings discussed with and acknowledged by TIAN Mahoney on 06/30/2022 at approximately 2:47 PM. Procedure Note Kyra Seo MD - 06/30/2022Formatting of th is note might be different from the original. 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 Work up for upper and lower extremity DVT, small PE on right side with small pulmonary infarction seen on CT abdomen. Work up for upper and lower extremity DVT Comparison: None Technique: Grayscale and color/spectral Doppler ultrasound of the bilateral lower extremity veins was performed. Findings: Left lower extremity: Thrombus identifie d throughout the left lower extremity, involving the common femoral vein, femoral vein, popliteal vein and peroneal vein of the calf. Portion of the thrombus is occlusive, especially in the mid to distal femoral vein and popliteal vein. Right lower extremity: Thrombus identifi ed in the right popliteal vein and right posterior tibial vein of the calf. The right peroneal vein and anterior tibial vein are patent. Findings discussed with and acknowledged by TIAN Mahoney on 06/30/2022 at approximately 2:47 PM. IMPRESSION: Bilateral lower extremity deep vein thro mbosis, most extensive in the left lower extremity. Mallory OVERTON IMG US ORDERABLES US Arm Venous Doppler Bilateral (06/30/2022 2:46 PM CDT) Anatomical Region Laterality Modality Arm, Extremity Ultrasound Specimen (Source) Anatomical Collection Method Collection Time Re ceived Time Location / / Volume Laterality 06/30/2022 4:03 PM CDT Impressions 06/30/2022 4:06 PM CDT Negative for deep venous thrombosis in t he bilateral upper extremities. 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 Work up for upper and lower extremity DVT Comparison: None available. Technique: Grayscale and color/spectral Doppler ultrasound of the bilateral upper extremity veins was performed. Findings: The bilateral internal jugular, subclavi an, axillary, brachial, cephalic, and basilic veins show phasic color flow and are patent. Procedure Note Kyra Seo MD - 06/30/2022Formatting of th is note might be different from the original. 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 Work up for upper and lower extremity DVT Comparison: None available. Technique: Grayscale and color/spectral Doppler ultrasound of the bilateral upper extremity veins was performed. Findings: The bilateral internal jugular, subclavi an, axillary, brachial, cephalic, and basilic veins show phasic color flow and are patent. IMPRESSION: Negative for deep venous thrombosis in t he bilateral upper extremities. Mallory SEE US ORDERABLES CT Abdomen Pelvis with Contrast (06/23/2022 12:20 PM CDT) Anatomical Region Laterality Modality Abdomen, Pelvis Computed Tomography Specimen (Source) Anatomical Collection Method Collection Time Re ceived Time Location / / Volume Laterality 06/24/2022 3:56 PM CDT Impressions 06/24/2022 4:09 PM CDT 1. New right lower lobe segmental pulmonary artery embolus (6, image 1) resulting in right lower lobe pulmonary infarct. 2. Decreased right external iliac lymph node, likely reactive. 3. No metastatic disease in the abdomen or pelvis. Findings discussed with Dr. Lira by Dr. Sam on 06/24/2022 4:02 PM. 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 Findings: Lower chest: New right lower lobe segmental pulmonary artery embolus (6, image 1) resulting in right lower lobe pulmonary infarct. Abdomen/pelvis: Liver, gallbladder, bile ducts: No suspi cious hepatic lesion. No biliary ductal dilatation. Gallbladder is surgically absent. Pancreas: No pancreatic lesion. No pancr eatic duct dilatation. Spleen:Normal in size. No splenic lesion . Adrenals:Unremarkable. No nodule. Kidneys:No hydronephrosis. No suspicious renal mass. Bowel and Mesentery: Large stool in rect osigmoid colon suggestive of constipation. No bowel wall thickening. No bowel obstruction. No mesenteric mass. Lymph Nodes: Decreased right external il iac lymph node measuring 0.6 cm (6, image 121) compared to 0.9 cm previously nonspecific. No retroperitoneal, mesenteric, pelvic or inguinal lymphadenopathy. Vessels: Circumaortic left renal vein. A therosclerotic calcification of the aorta and iliac arteries without aneurysm Bladder:No bladder wall thickening. Reproductive organs: Post hysterectomy a nd bilateral salpingo-oophorectomy. Musculoskeletal/Soft tissues:No aggressi ve osseous lesion. Stable left sacral sclerotic lesion likely a bone island. No soft tissue mass. Small fat-containing bilateral inguinal hernias. 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 Findings: Lower chest: New right lower lobe segmental pulmonary artery embolus (6, image 1) resulting in right lower lobe pulmonary infarct. Abdomen/pelvis: Liver, gallbladder, bile ducts: No suspi cious hepatic lesion. No biliary ductal dilatation. Gallbladder is surgically absent. Pancreas: No pancreatic lesion. No pancr eatic duct dilatation. Spleen:Normal in size. No splenic lesion . Adrenals:Unremarkable. No nodule. Kidneys:No hydronephrosis. No suspicious renal mass. Bowel and Mesentery: Large stool in rect osigmoid colon suggestive of constipation. No bowel wall thickening. No bowel obstruction. No mesenteric mass. Lymph Nodes: Decreased right external il iac lymph node measuring 0.6 cm (6, image 121) compared to 0.9 cm previously nonspecific. No retroperitoneal, mesenteric, pelvic or inguinal lymphadenopathy. Vessels: Circumaortic left renal vein. A therosclerotic calcification of the aorta and iliac arteries without aneurysm Bladder:No bladder wall thickening. Reproductive organs: Post hysterectomy a nd bilateral salpingo-oophorectomy. Musculoskeletal/Soft tissues:No aggressi ve osseous lesion. Stable left sacral sclerotic lesion likely a bone island. No soft tissue mass. Small fat-containing bilateral inguinal hernias. IMPRESSION: 1. New right lower lobe segmental pulmon love artery embolus (6, image 1) resulting in right lower lobe pulmonary infarct. 2. Decreased right external iliac lymph node, likely reactive. 3. No metastatic disease in the abdomen or pelvis. Findings discussed with Dr. Lira by Dr. Sam on 06/24/2022 4:02 PM. Ami Lira MD IMG CT ORDERABLES POC Creatinine (06/23/2022 11:41 AM CDT)Only the most recent of2 resultswithin the time period is included. P athologist Signature POC Crea 0.6 0.6 - 1.3 POC [facility] mg/dL Comment: [...] analyte concentration by an electrochemical assay. POC EGFR 90 >=60 mL/min/1.73 sq. m POC [facility] Comment: The eGFRcr is calculated with the 2020 C KD-EPI creatinine equation using creatinine, patient's age, and sex for adults 18 years of age and older. Other factors, especially muscle mass, may affect accuracy and need to be considered. According to the Kidney Disease: Improvi ng Global Outcomes (KDIGO) CKD Work Group 2012 Clinical Practice Guideline, chronic kidney disease (CKD) is defined as the abnormalities of kidney structure or function, present for more than 3 months, with implications for health. CKD should be c lassified by cause, GFR category, and albuminuria category. KDIGO guidelines provide the following GFR categories Stage Description GFR mL/min/1.73 m2 G1* Normal or high >= 90 G2* Mildly decreased 60-89 G3a Mildly to moderately decreased 45-59 G3b Moderately to severely decreased 30- 44 G4 Severely decreased 15-29 G5 Kidney failure <15 *In the absence of evidence of kidney da mage, neither G1 nor G2 fulfill criteria for CKD. POC Clean Dev Yes POC [facility] Performing Lab [facility] POC [facility] R Comment: [facility] [place] [facility] ,[address] [place] [address], Point of Care Plant Science Professor: Mima Soto MD Specimen Anatomical Collection Method Collection Time Receive d Time (Source) Location / / Volume Laterality Blood 06/23/2022 11:41 06/23/2022 AM CDT 11:41 AM CDT Ami Lira MD POCT ORDERABLES - DEVICE Performing Organization Address City/State/ZIP Code Phon e Number POC [facility] (ABNORMAL) US Chest/Infraclav for Breast Ultrasound (Add-on Only) (04/11/2022 10:19 AM CDT) Anatomical Region Laterality Modality Chest Ultrasound Specimen (Source) Anatomical Collection Method Collection Time Re ceived Time Location / / Volume Laterality 04/11/2022 10:29 AM CDT Impressions 04/11/2022 10:29 AM CDT Interval treatment response, as above. BI-RADS Category 6: Known Biopsy Proven Malignancy These results and recommendations were p ersonally discussed with the patient at the time of the examination. Narrative 04/11/2022 10:29 AM CDT CLINICAL INDICATION: Patient is a 81 year old female and is s een for breast cancer FILMS COMPARED The present examination has been compare d to a prior imaging study performed at [facility] [place] on 11/20/2021. Images were obtained in multiple scannin g planes. Real-time sonographic imaging of the rig ht breast (including all 4 quadrants and retroareolar region) was performed. Re al-time sonographic imaging of the right regional [place] basins including ultrasou nd of the chest/mediastinum to evaluate the axillary (level I,II,III) and environmental engineering intern al mammary regions was performed. The 2 malignant masses with associated b iopsy clips are slightly decreased in size. 1. Mass at 10:00, 7 cm from the nipple , measures 0.9 x 0.7 x 1.1 cm (previously 1.8 x 1 x 1.3 cm). 2. Mass at 11:00, 1 cm from the nipple , measures 2.1 x 0.6 x 3 cm (previously 3 x 0.8 x 2.8 cm). Small hypoechoic area at 9:00, 4 cm from the nipple is consistent with benign biopsy-proven papillary lesion without a typia. Right Regional [place] Basins: The previou sly biopsy-proven metastatic level I axillary lymph node with a biopsy clip i s decreased in size with improved cortical thickening, now measuring 1.2 x 0.5 x 1.4 cm. There is a second prominent lymph node with mild cortical prominence at level I, nonspecific. The biopsy-proven level III lymph node i s also decreased in size, now measuring 1.8 x 0.4 x 0.3 cm (previously 1.7 x 0.6 x 0.5 cm). The second abnormal level III lymph node is similar in size, but i mproved in morphology with now visible fatty hilum. There is no abnormal lymph node at axill love level II and internal mammary regions. Procedure Note Eduar Nguyen MD - 04/11/2022Formattin g of this note might be different from the original. CLINICAL INDICATION: Patient is a 81 year old female and is s een for breast cancer FILMS COMPARED The present examination has been compare d to a prior imaging study performed at [facility] [place] on 11/20/2021. Images were obtained in multiple scannin g planes. Real-time sonographic imaging of the rig ht breast (including all 4 quadrants and retroareolar region) was performed. Real -time sonographic imaging of the right regional [place] basins including ultrasou nd of the chest/mediastinum to evaluate the axillary (level I,II,III) and environmental engineering intern al mammary regions was performed. The 2 malignant masses with associated b iopsy clips are slightly decreased in size. 1. Mass at 10:00, 7 cm from the nipple, measures 0.9 x 0.7 x 1.1 cm (previously 1.8 x 1 x 1.3 cm). 2. Mass at 11:00, 1 cm from the nipple, measures 2.1 x 0.6 x 3 cm (previously 3 x 0.8 x 2.8 cm). Small hypoechoic area at 9:00, 4 cm from the nipple is consistent with benign biopsy-proven papillary lesion without a typia. Right Regional [place] Basins: The previou sly biopsy-proven metastatic level I axillary lymph node with a biopsy clip i s decreased in size with improved cortical thickening, now measuring 1.2 x 0.5 x 1.4 cm. There is a second prominent lymph node with mild cortical prominence at level I, nonspecific. The biopsy-proven level III lymph node i s also decreased in size, now measuring 1.8 x 0.4 x 0.3 cm (previously 1.7 x 0.6 x 0.5 cm). The second abnormal level III lymph node is similar in size, but i mproved in morphology with now visible fatty hilum. There is no abnormal lymph node at axill love level II and internal mammary regions. IMPRESSION: Interval treatment response, as above. BI-RADS Category 6: Known Biopsy Proven Malignancy These results and recommendations were p ersonally discussed with the patient at the time of the examination. Mallory OVERTON IMSunil US ORDERABLES (ABNORMAL) US Breast Complete Right (04/11/2022 10:19 AM CDT) Anatomical Region Laterality Modality Breast Right Ultrasound Specimen (Source) Anatomical Collection Method Collection Time Re ceived Time Location / / Volume Laterality 04/11/2022 10:29 AM CDT Impressions 04/11/2022 10:29 AM CDT Interval treatment response, as above. BI-RADS Category 6: Known Biopsy Proven Malignancy These results and recommendations were p ersonally discussed with the patient at the time of the examination. Narrative 04/11/2022 10:29 AM CDT CLINICAL INDICATION: Patient is a 81 year old female and is s een for breast cancer FILMS COMPARED The present examination has been compare d to a prior imaging study performed at [facility] [place] on 11/20/2021. Images were obtained in multiple scannin g planes. Real-time sonographic imaging of the rig ht breast (including all 4 quadrants and retroareolar region) was performed. Re al-time sonographic imaging of the right regional [place] basins including ultrasou nd of the chest/mediastinum to evaluate the axillary (level I,II,III) and environmental engineering intern al mammary regions was performed. The 2 malignant masses with associated b iopsy clips are slightly decreased in size. 1. Mass at 10:00, 7 cm from the nipple , measures 0.9 x 0.7 x 1.1 cm (previously 1.8 x 1 x 1.3 cm). 2. Mass at 11:00, 1 cm from the nipple , measures 2.1 x 0.6 x 3 cm (previously 3 x 0.8 x 2.8 cm). Small hypoechoic area at 9:00, 4 cm from the nipple is consistent with benign biopsy-proven papillary lesion without a typia. Right Regional [place] Basins: The previou sly biopsy-proven metastatic level I axillary lymph node with a biopsy clip i s decreased in size with improved cortical thickening, now measuring 1.2 x 0.5 x 1.4 cm. There is a second prominent lymph node with mild cortical prominence at level I, nonspecific. The biopsy-proven level III lymph node i s also decreased in size, now measuring 1.8 x 0.4 x 0.3 cm (previously 1.7 x 0.6 x 0.5 cm). The second abnormal level III lymph node is similar in size, but i mproved in morphology with now visible fatty hilum. There is no abnormal lymph node at axill love level II and internal mammary regions. Procedure Note Eduar Nguyen MD - 04/11/2022Formattin g of this note might be different from the original. CLINICAL INDICATION: Patient is a 81 year old female and is s een for breast cancer FILMS COMPARED The present examination has been compare d to a prior imaging study performed at [facility] [place] on 11/20/2021. Images were obtained in multiple scannin g planes. Real-time sonographic imaging of the rig ht breast (including all 4 quadrants and retroareolar region) was performed. Real -time sonographic imaging of the right regional suyapa basins including ultrasou nd of the chest/mediastinum to evaluate the axillary (level I,II,III) and environmental engineering intern al mammary regions was performed. The 2 malignant masses with associated b iopsy clips are slightly decreased in size. 1. Mass at 10:00, 7 cm from the nipple, measures 0.9 x 0.7 x 1.1 cm (previously 1.8 x 1 x 1.3 cm). 2. Mass at 11:00, 1 cm from the nipple, measures 2.1 x 0.6 x 3 cm (previously 3 x 0.8 x 2.8 cm). Small hypoechoic area at 9:00, 4 cm from the nipple is consistent with benign biopsy-proven papillary lesion without a typia. Right Regional [place] Basins: The previou sly biopsy-proven metastatic level I axillary lymph node with a biopsy clip i s decreased in size with improved cortical thickening, now measuring 1.2 x 0.5 x 1.4 cm. There is a second prominent lymph node with mild cortical prominence at level I, nonspecific. The biopsy-proven level III lymph node i s also decreased in size, now measuring 1.8 x 0.4 x 0.3 cm (previously 1.7 x 0.6 x 0.5 cm). The second abnormal level III lymph node is similar in size, but i mproved in morphology with now visible fatty hilum. There is no abnormal lymph node at axill love level II and internal mammary regions. IMPRESSION: Interval treatment response, as above. BI-RADS Category 6: Known Biopsy Proven Malignancy These results and recommendations were p ersonally discussed with the patient at the time of the examination. Mallory SEE US ORDERABLES Echocardiogram 2D Complete (01/17/2022 2:15 PM CDT) [...] volumes were not performed in this [facility]. Cardiac Mechanics/Speckle Tracking Imagi ng: Abnormal global [...] 3.7 cm LVOT diam: 2.0 cm EDV(MOD-A4C): 109. 1 ml ESV(MOD-A4C): 48.7 ml LVOT area: 3.1 cm2 EF(MOD-A4C): 55.3 % EDV(MOD-A2C): 79.8 ml ESV(MOD-A2C): 32.8 ml EDV(MOD-bp): 9 3.6 ml EF(MOD-A2C): 58.9 % ESV(MOD-bp): 40 .2 ml EF(MOD-bp): 57.1 % LAV(MOD-A2C): 51.3 ml EDV (MOD-bp) I ndex: 48.4 ml/m2 LAV(MOD-A4C): 24.5 ml LAV(MOD-bp): 35.0 ml LAV(MOD-bp) Indexed: 18.1 ml/m2 ESV (MOD-bp) Index: 20.7 ml/m2 RWT: 0.40 cm TAPSE (>1.6): 1.7 cm Doppler Measurements MV E max mariah: 55.5 cm/sec MV V2 max: 85.4 cm/sec MV A max mariah: 76.0 cm/sec MV max P.9 mmHg MV E/A: 0.73 MV V2 mean: 48.3 cm/se c MV mean P.1 mmHg MV V2 VTI: 14.8 cm MVA(VTI): 2.9 cm2 MV P1/2t max mariah: 56.1 cm/sec Ao V2 max: 100.8 cm/sec MV P1/2t: 44.1 msec Ao max P.1 mmHg Ao V2 mean: 68.5 cm/sec MVA(P1/2t): 5.0 cm2 Ao mean P.1 mmHg MV dec slope: 372.7 cm/sec2 Ao V2 VT I: 14.9 cm GRANT(I,D): 2.9 cm2 GRANT(V,D): 2.3 cm2 LV V1 max P.3 mmHg SV(LVOT): 43. 5 ml LV V1 mean P.3 mmHg LV V1 max: 75.0 cm/sec LV V1 mean: 53.8 cm/sec LV V1 VTI: 14.2 cm PA V2 max: 81.9 cm/sec PI max mariah: 1 04.4 cm/sec PA max P.7 mmHg PI max P.4 m mHg PA V2 mean: 54.3 cm/sec PI dec slope : 52.5 cm/sec2 PA mean P.3 mmHg PA V2 VTI: 14.2 cm Med Peak E' Mariah: 7.1 cm/sec Lat Peak E' Mariah: 5.7 cm/sec TR max mariah: 214.7 cm/sec RAP systole: 3.0 mmHg TR max P.4 mmHg RVSP(TR): 21.4 mmHg GRANT Index (I,D): 1.5 GRANT Index (V,D) : 1.2 Dimensionless Index: 0.74 E/e' (avg) : 8.6 E/e' (lat): 9.7 E/e' (sept): 7.8 57 Gale Boyce APN CV ECHO ORDERABLES Performing Organization Address City/State/ZIP Code Phon e Number ISCV IR FL PORT PLACEMENT (12/16/2021 5:58 PM CDT) Anatomical Region Laterality Modality X-Ray Angiography, U ltrasound Specimen (Source) Anatomical Location Collection Method / Collectio n Time Received Time / Laterality Volume Narrative 12/16/2021 6:42 PM CDT Date of Procedure: 12/16/21 Attending Physician: Chandra Lucas MD Family Services Specialist: None Pre-procedure Diagnosis: History of je gnant [...] I certify my physical presence at the ti me of the procedure. I personally reviewed the image(s) and the resident's / fellow's interpretation and agree with the written report. Gale Carli AGUILLON IMG IR ORDERABLES (ABNORMAL) POC Glucose Screen (12/16/2021 3:23 PM CDT) athologist Signature POC Glucose 159 (H) 70 [...] Sample Type Venous POC TELCOR Performing Lab [facility] POC TELCO R Comment: [facility] Clinical Lab, [address] [place] [id number]; Lab Direct or: Nancy Aragon MD Specimen Anatomical Collection Method Collection Time Receive d Time (Source) Location / / Volume Laterality Blood 12/16/2021 3:23 PM 2 3:23 CDT PM CDT Hannah OVERTON POCT ORDERABLES - DEVICE Performing Organization Address City/State/ZIP Code Phon e Number POC TELCOR Glucose, Random (12/16/2021 12:41 PM CDT) athologist Signature Glucose Random 189 70 - 199 [facility] mg/dL Comment: Effective 04/09/16, the glucose reference intervals have been updated based on [place] Diabetes [employer] guidelines (Standards of Medical Care in Diabetes 2016. Diabetes Care 2016; 39: S13-S22) Fasting blood glucose: Normal: 70-99 mg/dL Impaired fasting glucose (increased risk for diabetes or pre-diabetes): 100-125 mg/dL Diabetes mellitus: >/= 126 mg/dL Random blood glucose: Normal: 70-199 mg/dL Note: Random glucose >100 mg/dL is assoc iated with increased risk for diabetes Testing Performed at [facility] Lab Packing And Stamping Machine Operator [facility], [address] [place] [address], [address], [place] [address] Specimen Anatomical Collection Method Collection Time Receive d Time (Source) Location / / Volume Laterality Blood 12/16/2021 12:41 12/16/2021 PM CDT 12:46 PM CDT Hannah OVERTON LAB BLOOD ORDERABLES Performing Organization Address City/State/ZIP Code Phon e Number [facility] [address] [place] [address]. [place] [address] [address] Anion Gap (12/16/2021 12:41 PM CDT) P athologist Signature Anion Gap 10 4 - 14 mEq/L [facility] Comment: Testing Performed at [facility] Lab Am bulatory Care [facility], [address], [address], [place] [address] Specimen Anatomical Collection Method Collection Time Receive d Time (Source) Location / / Volume Laterality Blood 12/16/2021 12:41 12/16/2021 PM CDT 12:46 PM CDT Hannah OVERTON LAB BLOOD ORDERABLES Performing Organization Address City/State/ZIP Code Phon e Number [facility] [address] [place] [address]. [place] [address] [address] Clot Expiration Date (12/16/2021 12:41 PM CDT) Patholo gist Method Time Signature T & S 12/19/2021 [facility] Specimen Anatomical Collection Method Collection Time Receive d Time (Source) Location / / Volume Laterality Blood 12/16/2021 12:41 12/16/2021 2:23 PM CDT PM CDT Hannah OVERTON BLOOD BANK TEST ORDERABLES Performing Organization Address City/State/ZIP Code Phon e Number [facility] Unless otherwise noted, [place] [address] CENTER all lab tests performed by: Division of Pathology and Laboratory Medicine [address] [place] [address] TMP Interpretation Antibody Screen Negative (12/16/2021 12:41 PM CDT) [facility] gist Method Time Signature TMP Auto Neg At the [facility] [place] Interp [facility], [facility] CENTER patient plasma shows no evidence of RBC alloantibodi es. Comment: MD Jerald BERRY [id number] Dictated by: MD Jerald [id number] Dictated Date/Time: 12.16.2021 22:16 PM CDT Transcribed Date/Time: 12.16.2021 22:16 PM CDT Electronically Signed By: MD Jerald BERRY [id number] on 12.16.2021 22:16 PM Specimen Anatomical Collection Method Collection Time Receive d Time (Source) Location / / Volume Laterality Blood 12/16/2021 12:41 12/16/2021 2:23 PM CDT PM CDT Hannah OVERTON BLOOD BANK TEST ORDERABLES Performing Organization Address City/State/ZIP Code Phon e Number [facility] Unless otherwise noted, [address] all lab tests performed by: Division of Pathology and Laboratory Medicine [address] [place] [address] ABORh (12/16/2021 12:41 PM CDT) athologist [facility] ABORh. O NEG [facility] Specimen Anatomical Collection Method Collection Time Receive d Time (Source) Location / / Volume Laterality Blood 12/16/2021 12:41 12/16/2021 2:23 PM CDT PM CDT Hannah OVERTON BLOOD BANK TEST ORDERABLES Performing Organization Address City/State/ZIP [facility] Phon e Number [facility] Unless otherwise noted, [address] all lab tests performed by: Division of Pathology and Laboratory Medicine [address] [place] [address] Antibody Screen (12/16/2021 12:41 PM CDT) athologist Signature ABSC. Negative ABSC [facility] Specimen Anatomical Collection Method Collection Time Receive d Time (Source) Location / / Volume Laterality Blood 12/16/2021 12:41 12/16/2021 2:23 PM CDT PM CDT Hannah OVERTON BLOOD BANK TEST ORDERABLES Performing Organization Address City/State/ZIP Code Phon e Number [facility] Unless otherwise noted, [place] [address] CENTER all lab tests performed by: Division of Pathology and Laboratory Medicine [address] Sodium Level (12/16/2021 12:41 PM CDT) athologist Signature Sodium Lvl 144 136 - 145 [facility] mEq/L Comment: Testing Performed at B Lab Am [facility] Care [facility], [address], [address], [place] [address] Specimen Anatomical Collection Method Collection Time Receive d Time (Source) Location / / Volume Laterality Blood 12/16/2021 12:41 12/16/2021 PM CDT 12:46 PM CDT Hannah OVERTON LAB BLOOD ORDERABLES Performing Organization Address [facility]/ZIP Code Phon e Number [facility] [address] [place] [address] [address] Potassium (12/16/2021 12:41 PM CDT) athologist Signature Potassium Lvl 4.1 3.5 - 5.1 [facility] mEq/L Comment: Testing Performed at B Lab Am bulatory Care [facility], [address], [place] [address] Specimen Anatomical Collection Method Collection Time Receive d Time (Source) Location / / Volume Laterality Blood 12/16/2021 12:41 12/16/2021 PM CDT 12:46 PM CDT Hannah OVERTON LAB BLOOD ORDERABLES Performing Organization Address City/[facility]/ZIP Code Phon e Number [facility] [address] [place] [address] [address] Chloride Level (12/16/2021 12:41 PM CDT) athologist Signature Chloride 107 98 - 107 [facility] mEq/L Comment: Testing Performed at B Lab Am bulatory Care dg, [address], [place] [address] Specimen Anatomical Collection Method Collection Time Receive d Time (Source) Location / / Volume Laterality Blood 12/16/2021 12:41 12/16/2021 PM CDT 12:46 PM CDT Hannah OVERTON LAB BLOOD ORDERABLES Performing Organization Address City/[facility]/ZIP Code Phon e Number [facility] [address] [place] [address] [address] Carbon Dioxide Level (12/16/2021 12:41 PM CDT) athologist Signature CO2 27 22 - 29 [facility] mEq/L Comment: Testing Performed at [facility] Lab Am bulatory Care [facility], [address], [address], [place] [address] Specimen Anatomical Collection Method Collection Time Receive d Time (Source) Location / / Volume Laterality Blood 12/16/2021 12:41 12/16/2021 PM CDT 12:46 PM CDT Hannah OVERTON LAB BLOOD ORDERABLES Performing Organization Address City/[facility]/ZIP Code Phon e Number [facility] [address] [place] [address] [address] Confirm ABORh (12/16/2021 12:40 PM CDT) athologist Signature ABORh Confirm. O NEG [facility] Specimen Anatomical Collection Method Collection Time Receive d Time (Source) Location / / Volume Laterality Blood 12/16/2021 12:40 12/16/2021 2:23 PM CDT PM CDT Hannah OVERTON BLOOD BANK TEST ORDERABLES Performing Organization Address City/[facility]/ZIP Code Phon e Number [facility] Unless otherwise noted, [address] all lab tests performed by: Division of Pathology and Laboratory Medicine [address] [place] [address] [place] Prothrombin Time (12/16/2021 12:33 PM CDT) athologist Signature PT 12.5 11.5 - 13.9 [facility] second(s) Comment: Testing Performed at [facility] Lab Packing And Stamping Machine Operator Bldg [address] [place] [id number] INR 1.00 0.90 - 1.10 [facility] Comment: Testing Performed at [facility] Lab Packing And Stamping Machine Operator Bldg [address] [place] [address] Specimen Anatomical Collection Method Collection Time Receive d Time (Source) Location / / Volume Laterality Blood 12/16/2021 12:33 12/16/2021 PM CDT 12:42 PM CDT Narrative [facility] - 12/16/2021 1:13 PM CDT This lab cannot be scheduled at the [facility] locations due to collection/proccessing restrictions: [facility] and [facility]. Hannah OVERTON LAB BLOOD ORDERABLES Performing Organization Address City/State/ZIP Code Phon e Number [facility] [address] [place] [address] [address] EKG, 12-Lead (Scheduled) (12/16/2021) Specimen (Source) Anatomical Location Collection Method / Collectio n Time Received Time / Laterality Volume Narrative This result has an attachment that is no t available. Hannah OVERTON ECG ORDERABLES Performing Organization Address [facility] Phon e Number [facility] Post Procedure [...] Biopsy Mammograms, . Clinical History: 81-year-old woman with an abnormal breast ultrasound presenting for biopsy. Indication: Suspicious finding(s) on rec ent breast ultrasound. Comparison: Breast Ultrasound from . Technique: Ultrasound imaging of the rig ht [...] deemed adequate for diagnosis. Preliminary cytology result i s high risk. A marker clip was deployed [...] clip(s) The clip marker lies within the biopsied lesion. Site 2: The lesion in question was ident ified in the right breast at 6 o'clock 4cm from the nipple. The biopsy trocar w as advanced to the targeted lesion. Biopsy was performed with a 21-gauge nee dle, and 2 passes were made. Immediate cytopathology assessment was performed, and the specimen was deemed adequate for diagnosis. Preliminary cytology result i s benign. The estimated blood loss for the procedu re was minimal. The patient tolerated the procedure well without immediate com plications and left the department in good condition. IMPRESSION: Technically successful ultrasound guided biopsy of the right breast. An addendum will be issued once the final pathology result is available and reviewed. Examination: Post Procedure Mammogram [facility] 12/13/2021. Clinical Indication: Patient is a 81 yea rs old female and is seen for post procedure mammogram. Findings: See Ultrasound-guided biopsy r eport done same date. Mallory OVERTON IMG MAMMOGRAPHY ORDERABLES US Breast FNA Right (12/13/2021 [...] available and reviewed. Examination: Post Procedure Mammogram [facility] 12/13/2021. Clinical Indication: Patient is a 81 [...] Biopsy Mammograms, . Clinical History: 81-year-old woman with an abnormal breast ultrasound presenting for biopsy. Indication: Suspicious finding(s) on rec ent breast ultrasound. Comparison: Breast Ultrasound from . Technique: Ultrasound imaging of the rig ht [...] deemed adequate for diagnosis. Preliminary cytology result i s high risk. A marker clip was deployed [...] clip(s) The clip marker lies within the biopsied lesion. Site 2: The lesion in question was ident ified in the right breast at 6 o'clock 4cm from the nipple. The biopsy trocar w as advanced to the targeted lesion. Biopsy was performed with a 21-gauge nee dle, and 2 passes were made. Immediate cytopathology assessment was performed, and the specimen was deemed adequate for diagnosis. Preliminary cytology result i s benign. The estimated blood loss for the [...] 12/13/2021. Clinical Indication: Patient is a 81 yea rs old female and is seen for post [...] Biopsy Mammograms, . Clinical History: 81-year-old woman with an abnormal breast ultrasound presenting for biopsy. Indication: Suspicious finding(s) on rec ent breast ultrasound. Comparison: Breast Ultrasound from . Technique: Ultrasound imaging of the rig ht [...] deemed adequate for diagnosis. Preliminary cytology result i s high risk. A marker clip was deployed into the biopsi ed lesion. At the conclusion of the procedure, pressure was held until cessa tion of bleeding. The skin incision was closed with Steri-strips and covered wit h a bandage. A [employer] coil marker clip was placed at th e biopsy site. Post procedure mammography confirms expected positionin g of the marker clip(s) The clip marker lies within the biopsied lesion. Site 2: The lesion in question was ident ified in the right breast at 6 o'clock 4cm from the nipple. The biopsy trocar w as advanced to the targeted lesion. Biopsy was performed with a 21-gauge nee dle, and 2 passes were made. Immediate cytopathology assessment was performed, and the specimen was deemed adequate for diagnosis. Preliminary cytology result i s benign. The estimated blood loss for the procedu re was minimal. The patient tolerated the procedure well without immediate com plications and left the department in good condition. IMPRESSION: Technically successful ultrasound guided biopsy of the right breast. An addendum will be issued once the final pathology result is available and reviewed. Examination: Post Procedure Mammogram [facility] 12/13/2021. Clinical Indication: Patient is a 81 yea rs old female and is seen for post procedure mammogram. Findings: See Ultrasound-guided biopsy r eport done same date. Mallory SEE US ORDERABLES Cytology Image-Guided FNA Interpretation (12/13/2021 9:56 AM CDT)Only the most recent of4 resultswithin the time period is included. Component Value Ref Test Analysis Performed Pathologis t Range Method Time At Signature Gross A: 12/13/2021 [facility] Description Specimens procured: 4:37 PM 2 Diff Quik; 5 Pap Stain Slides CDT 10 ml, clear red fluid in RPMI 1 Cytospin Size: 0.5 cm Immediate assessment for specimen adequacy was made x1 by Dr Yogesh Robles. Immediate Adequate 12/13/2021 [facility] Assessment cellularity, 4:37 PM favor benign CDT Major [facility]/benign 12/13/2021 [facility] Elect ronically Classification 4:37 PM fady d by Sue CDT Nitza gar on 12/13/2021 a t 4:37 PM Diagnosis A. Breast, right, fine needle asp, Right breast mass 6 :00 4cmfn: 12/13/2021 [facility] Electronically 4:37 PM signed by Sue No malignant cells identified CDT Nitza Robles on Benign ductal epithelium wit h apocrine metaplasia in a background of cystic debris and scattered macrophages consistent with fibrocystic change 12/13/2021 at 4:37 PM Retained/Biomark SR: 8 S 12/13/2021 [facility] er Testing 4:37 PM CDT Informational Some tests 12/13/2021 [facility] Points reported here may 4:37 PM have been CDT developed and performance characteristics determined by [facility] Pathology and Laboratory Medicine. These tests have not been specifically cleared or approved by the U.S. Food and Drug Administration. This case was screened at [facility]) Cytopathology Laboratory, [address] [place] [id number]. Specimen Anatomical Collection Method Collection Time Receive d Time (Source) Location / / Volume Laterality Fine Needle Asp 12/13/2021 9:56 AM 2021 (Breast, Right) CDT 12:10 PM CDT Mallory OVERTON LAB CYTOLOGY ORDERABLES Performing Organization Address City/State/ZIP Code Phon e Number [facility] [place] [address] [address] [facility] [address] Chest Abdomen Pelvis with and without [...] Biopsy marker clips at the site of th e known primary in the right breast and the known metastatic lymph node in the right axilla. 2. Otherwise no evidence of metastatic d isease in the chest, abdomen, or pelvis. 3. A prominent lymph node in the right e xternal iliac region measures 0.9 cm, and is indeterminate. Recommend attention on follow-up in this patient with a history of endometrial cancer. Mallory OVERTON [facility] ORDERABLES NM Bone Scan Whole Body (12/06/2021 10:56 [...] and agree with the final report. Mallory OVERTON IMG NM ORDERABLES Post Procedure Mammogram Bilateral (11/20/2021 5:56 PM USED CAR LOT ATTENDANT) Anatomical Region Laterality Modality Breast Mammography Specimen (Source) Anatomical Collection Method Collection Time Re ceived Time Location / / Volume Laterality 11/21/2021 9:52 AM USED CAR LOT ATTENDANT Addenda Addendum by Nupur Rosario DO on [...] Nupur Rosario DO on 11/21/2021 2:06 PM USED CAR LOT ATTENDANT ADDENDED REPORT ----- 11/21/2021 Addendum: Site 6: [...] result is benign. Impressions 11/21/2021 9:52 AM USED CAR LOT ATTENDANT Technically successful ultrasound guided biopsies of the bilateral breasts. An addendum will be issued once the final p athology result is available and reviewed. Examination: Post Procedure Mammogram Bi lateral 11/20/2021. Clinical Indication: Patient is a 81 y ears old female and is seen for post procedure mammogram. Findings: See Ultrasound-guided biopsy r eport done same date. Narrative 11/21/2021 9:52 AM USED CAR LOT ATTENDANT Examination: Right Breast Ultrasound Guided Needle Biopsy [...] Steri-strips and covered with a bandage. A [employer] ribbon marker clip was placed at the [...] Biopsy Mammograms, . Clinical History: 81-year-old woman with an abnormal breast ultrasound presenting for biopsy. Indication: Suspicious finding(s) on rec ent breast ultrasound. Comparison: Mammogram from 11/20/2021. Arleth ast Ultrasound from 11/20/2021. Technique: Ultrasound imaging of [...] clip(s) The clip marker lies within the biopsied lesion. Site 3: The lesion in question [...] clip(s) The clip marker lies within the biopsied lesion. Site 4: The lesion in question [...] clip(s) The clip marker lies within the biopsied lesion. Site 5: The lesion in question [...] clip(s) The clip marker lies within the biopsied lesion. The estimated blood loss for the [...] 11/20/2021. Clinical Indication: Patient is a 81 yea rs old female and is seen for post procedure mammogram. Findings: See Ultrasound-guided biopsy r eport done same date. Elliott OVERTON IMG MAMMOGRAPHY ORDERABLES US Guided Infraclavicular Lymph Node FNA - Right (11/20/2021 5:47 PM USED CAR LOT ATTENDANT) Anatomical Region Laterality Modality Lymph Node Right Ultrasound Specimen (Source) Anatomical Collection Method Collection Time Re ceived Time Location / / Volume Laterality 11/21/2021 9:52 AM USED CAR LOT ATTENDANT Addenda Addendum by Nupur Rosario DO on [...] Nupur Rosario DO on 11/21/2021 2:06 PM USED CAR LOT ATTENDANT ADDENDED REPORT ----- 11/21/2021 Addendum: Site 6: [...] result is benign. Impressions 11/21/2021 9:52 AM USED CAR LOT ATTENDANT Technically successful ultrasound guided biopsies of the bilateral breasts. An addendum will be issued once the final p athology result is available and reviewed. Examination: Post Procedure Mammogram Bi lateral 11/20/2021. Clinical Indication: Patient is a 81 y ears old female and is seen for post procedure mammogram. Findings: See Ultrasound-guided biopsy r eport done same date. Narrative 11/21/2021 9:52 AM USED CAR LOT ATTENDANT Examination: Right Breast Ultrasound Guided Needle Biopsy [...] ps and covered with a bandage. A [employer] U-shaped marker clip was placed at the [...] Steri-strips and covered with a bandage. A [employer] wing marker clip was placed at th [...] Biopsy Mammograms, . Clinical History: 81-year-old woman with an abnormal breast ultrasound presenting for biopsy. Indication: Suspicious finding(s) on rec ent breast ultrasound. Comparison: Mammogram from 11/20/2021. [facility] from 11/20/2021. Technique: Ultrasound imaging of [...] ps and covered with a bandage. A [employer] U-shaped marker clip was placed at the biopsy site. Post procedure mammography confirms expected positionin g of the marker clip(s) The clip marker lies within the biopsied lesion. Site 3: The lesion in question [...] Steri-strips and covered with a bandage. A [employer] wing marker clip was placed at th e biopsy site. Post procedure mammography confirms expected positionin g of the marker clip(s) The clip marker lies within the biopsied lesion. Site 4: The lesion in question [...] clip(s) The clip marker lies within the biopsied lesion. Site 5: The lesion in question [...] clip(s) The clip marker lies within the biopsied lesion. The estimated blood loss for the [...] 11/20/2021. Clinical Indication: Patient is a 81 yea rs old female and is seen for post procedure mammogram. Findings: See Ultrasound-guided biopsy r eport done same date. Elliott SEE US ORDERABLES US Guided Breast Biopsy Right (11/20/2021 5:47 PM USED CAR LOT ATTENDANT) Anatomical Region Laterality Modality Breast Right Ultrasound Specimen (Source) Anatomical Collection Method Collection Time Re ceived Time Location / / Volume Laterality 11/21/2021 9:52 AM USED CAR LOT ATTENDANT Addenda Addendum by Nupur Rosario DO on [...] Nupur Rosario DO on 11/21/2021 2:06 PM USED CAR LOT ATTENDANT ADDENDED REPORT ----- 11/21/2021 Addendum: Site 6: [...] result is benign. Impressions 11/21/2021 9:52 AM USED CAR LOT ATTENDANT Technically successful ultrasound guided biopsies of the bilateral breasts. An addendum will be issued once the final p athology result is available and reviewed. Examination: Post Procedure Mammogram Bi lateral 11/20/2021. Clinical Indication: Patient is a 81 y ears old female and is seen for post procedure mammogram. Findings: See Ultrasound-guided biopsy r eport done same date. Narrative 11/21/2021 9:52 AM USED CAR LOT ATTENDANT Examination: Right Breast Ultrasound Guided Needle Biopsy [...] Biopsy Mammograms, . Clinical History: 81-year-old woman with an abnormal breast ultrasound presenting for biopsy. Indication: Suspicious finding(s) on rec ent breast ultrasound. Comparison: Mammogram from 11/20/2021. [facility] from 11/20/2021. Technique: Ultrasound imaging of [...] clip(s) The clip marker lies within the biopsied lesion. Site 3: The lesion in question [...] Steri-strips and covered with a bandage. A [employer] wing marker clip was placed at th e biopsy site. Post procedure mammography confirms expected positionin g of the marker clip(s) The clip marker lies within the biopsied lesion. Site 4: The lesion in question [...] clip(s) The clip marker lies within the biopsied lesion. Site 5: The lesion in question [...] clip(s) The clip marker lies within the biopsied lesion. The estimated blood loss for the [...] 11/20/2021. Clinical Indication: Patient is a 81 yea rs old female and is seen for post procedure mammogram. Findings: See Ultrasound-guided biopsy r eport done same date. Elliott SEE US ORDERABLES (ABNORMAL) US Head Neck Soft Tissue (11/20/2021 5:47 PM USED CAR LOT ATTENDANT) Anatomical Region Laterality Modality Head, Neck Ultrasound Specimen (Source) Anatomical Collection Method Collection Time Re ceived Time Location / / Volume Laterality 11/20/2021 5:39 PM USED CAR LOT ATTENDANT Impressions 11/20/2021 5:39 PM USED CAR LOT ATTENDANT 1: Mass in the right breast upper [...] Biopsy may be considered if it would sales and service change leader. 4: Lymph nodes in the right axilla [...] biopsy may be considered if it would sales and service change leader. 7: Lymph nodes in the left axilla are suspicious. Ultrasound guided biopsy is recommended. BI-RADS Category 4C: Suspicious Abnormality Narrative 11/20/2021 5:39 PM USED CAR LOT ATTENDANT CLINICAL INDICATION: Patient is a 81 year old female and is s een for abnormal mammogram FILMS COMPARED The present examination has been compare d to a prior imaging study performed at [facility] [place] on 11/20/2021. Images were obtained in [...] to a prior imaging study performed at [facility] [place] on 11/20/2021. Images were obtained in multiple scannin g planes. Real-time sonographic imaging of both br easts (including all 4 quadrants and retroareolar region) was performed. Real time sonographic imaging of bilateral axilla was performed. Real-time sonograp hic imaging of bilateral regional suyapa basins including the axillary (level I,I I,III) and internal mammary regions was performed. 1: Additional evaluation was performed f or the irregular mass seen on 11/20/2021. On [...] is a level I lymph node with co rtical thickening measuring 1.7 x 0.8 x 1.5 centimeters in the right axilla. The re is a right axillary level III node measuring 1.7 x 0.5 x 0.6cm and a second 0.4cm level III node. No level II, internal mammary and supraclavicular lym phadenopathy. 5: Additional evaluation was performed f or the left irregular mass seen on 11/20/2021. On the present examination, there is an irregular mass measuring 1.4 x 1 x 0.8 centimeters in the left breast upper outer quadrant at 2 o'clock located 5 centimeters from the nipple. 6: There is an irregular similar appeari ng mass measuring 0.6 x 0.5 x 0.7 centimeters in the left breast outer hem isphere at 3 o'clock located 5 centimeters from the nipple. This is 1.8cm from the 2:00 mass. 7: There are two indeterminate level I l ymph nodes largest measuring 1.7 x 0.7 x [...] 3: Two additional masses in the right br east lower hemisphere at 6 o'clock located 4 centimeters from the nipple an d 9:00 4cm form the nipple are suspicious. Biopsy may be considered if it would sales and service change leader. 4: Lymph nodes in the right axilla are s uspicious as above. Ultrasound guided biopsy is recommended. 5: Mass in the left breast upper outer q uadrant at 2 o'clock located 5 centimeters from the nipple is suspiciou s. Ultrasound guided biopsy is recommended. 6: Mass in the left breast outer hemisph ere at 3 o'clock located 5 centimeters from the nipple is suspicious. Ultrasoun d guided biopsy may be considered if it would sales and service change leader. 7: Lymph nodes in the left axilla are peterson spicious. Ultrasound guided biopsy is recommended. BI-RADS Category 4C: Suspicious Abnormality Elliott OVERTON IMSunil US ORDERABLES (ABNORMAL) US Chest for Breast Ultrasound (Add-on Only) (11/20/2021 5:47 PM USED CAR LOT ATTENDANT) Anatomical Region Laterality Modality Chest Ultrasound Specimen (Source) Anatomical Collection Method Collection Time Re ceived Time Location / / Volume Laterality 11/20/2021 5:39 PM USED CAR LOT ATTENDANT Impressions 11/20/2021 5:39 PM USED CAR LOT ATTENDANT 1: Mass in the right breast upper [...] Biopsy may be considered if it would sales and service change leader. 4: Lymph nodes in the right axilla [...] biopsy may be considered if it would sales and service change leader. 7: Lymph nodes in the left axilla are suspicious. Ultrasound guided biopsy is recommended. BI-RADS Category 4C: Suspicious Abnormality Narrative 11/20/2021 5:39 PM USED CAR LOT ATTENDANT CLINICAL INDICATION: Patient is a 81 year old female and is s een for abnormal mammogram FILMS COMPARED The present examination has been compare d to a prior imaging study performed at [facility] on 11/20/2021. Images were obtained in [...] to a prior imaging study performed at [facility] [place] [facility] [place] on 11/20/2021. Images were obtained in multiple scannin g planes. Real-time sonographic imaging of both br easts (including all 4 quadrants and retroareolar region) was performed. Real time sonographic imaging of bilateral axilla was performed. Real-time sonograp hic imaging of bilateral regional suyapa basins including the axillary (level I,I I,III) and internal mammary regions was performed. 1: Additional evaluation was performed f or the irregular mass seen on 11/20/2021. On [...] is a level I lymph node with co rtical thickening measuring 1.7 x 0.8 x 1.5 centimeters in the right axilla. The re is a right axillary level III node measuring 1.7 x 0.5 x 0.6cm and a second 0.4cm level III node. No level II, internal mammary and supraclavicular lym phadenopathy. 5: Additional evaluation was performed f or the left irregular mass seen on 11/20/2021. On the present examination, there is an irregular mass measuring 1.4 x 1 x 0.8 centimeters in the left breast upper outer quadrant at 2 o'clock located 5 centimeters from the nipple. 6: There is an irregular similar appeari ng mass measuring 0.6 x 0.5 x 0.7 centimeters in the left breast outer hem isphere at 3 o'clock located 5 centimeters from the nipple. This is 1.8cm from the 2:00 mass. 7: There are two indeterminate level I l ymph nodes largest measuring 1.7 x 0.7 x [...] 3: Two additional masses in the right br east lower hemisphere at 6 o'clock located 4 centimeters from the nipple an d 9:00 4cm form the nipple are suspicious. Biopsy may be considered if it would sales and service change leader. 4: Lymph nodes in the right axilla are s uspicious as above. Ultrasound guided biopsy is recommended. 5: Mass in the left breast upper outer q uadrant at 2 o'clock located 5 centimeters from the nipple is suspiciou s. Ultrasound guided biopsy is recommended. 6: Mass in the left breast outer hemisph ere at 3 o'clock located 5 centimeters from the nipple is suspicious. Ultrasoun d guided biopsy may be considered if it would sales and service change leader. 7: Lymph nodes in the left axilla are peterson spicious. Ultrasound guided biopsy is recommended. BI-RADS Category 4C: Suspicious Abnormality Elliott OVERTON IMG US ORDERABLES US Guided Breast Biopsy Left (11/20/2021 5:47 PM USED CAR LOT ATTENDANT) Anatomical Region Laterality Modality Breast Left Ultrasound Specimen (Source) Anatomical Collection Method Collection Time Re ceived Time Location / / Volume Laterality 11/21/2021 9:52 AM USED CAR LOT ATTENDANT Addenda Addendum by Nupur Rosario DO on [...] Nupur Rosario DO on 11/21/2021 2:06 PM USED CAR LOT ATTENDANT ADDENDED REPORT ----- 11/21/2021 Addendum: Site 6: [...] result is benign. Impressions 11/21/2021 9:52 AM USED CAR LOT ATTENDANT Technically successful ultrasound guided biopsies of the bilateral breasts. An addendum will be issued once the final p athology result is available and reviewed. Examination: Post Procedure Mammogram Bi lateral 11/20/2021. Clinical Indication: Patient is a 81 y ears old female and is seen for post procedure mammogram. Findings: See Ultrasound-guided biopsy r eport done same date. Narrative 11/21/2021 9:52 AM USED CAR LOT ATTENDANT Examination: Right Breast Ultrasound Guided Needle Biopsy [...] Steri-strips and covered with a bandage. A [employer] wing marker clip was placed at th [...] Biopsy Mammograms, . Clinical History: 81-year-old woman with an abnormal breast ultrasound presenting for biopsy. Indication: Suspicious finding(s) on rec ent breast ultrasound. Comparison: Mammogram from 11/20/2021. [facility] from 11/20/2021. Technique: Ultrasound imaging of [...] ps and covered with a bandage. A [employer] U-shaped marker clip was placed at the [...] Steri-strips and covered with a bandage. A [employer] wing marker clip was placed at th e biopsy site. Post procedure mammography confirms expected positionin g of the marker clip(s) The clip marker lies within the biopsied lesion. Site 4: The lesion in question [...] clip(s) The clip marker lies within the biopsied lesion. Site 5: The lesion in question [...] clip(s) The clip marker lies within the biopsied lesion. The estimated blood loss for the [...] 11/20/2021. Clinical Indication: Patient is a 81 yea rs old female and is seen for post procedure mammogram. Findings: See Ultrasound-guided biopsy r eport done same date. Elliott OVERTON IMSunil US ORDERABLES (ABNORMAL) US Breast Complete Bilateral (11/20/2021 5:47 PM USED CAR LOT ATTENDANT) Anatomical Region Laterality Modality Breast Bilateral Ultrasound Specimen (Source) Anatomical Collection Method Collection Time Re ceived Time Location / / Volume Laterality 11/20/2021 5:39 PM USED CAR LOT ATTENDANT Impressions 11/20/2021 5:39 PM USED CAR LOT ATTENDANT 1: Mass in the right breast upper [...] Biopsy may be considered if it would sales and service change leader. 4: Lymph nodes in the right axilla [...] biopsy may be considered if it would sales and service change leader. 7: Lymph nodes in the left axilla are suspicious. Ultrasound guided biopsy is recommended. BI-RADS Category 4C: Suspicious Abnormality Narrative 11/20/2021 5:39 PM USED CAR LOT ATTENDANT CLINICAL INDICATION: Patient is a 81 year old female and is s een for abnormal mammogram FILMS COMPARED The present examination has been compare d to a prior imaging study performed at [facility] on 11/20/2021. Images were obtained in [...] to a prior imaging study performed at [facility] [place] [facility] [place] on 11/20/2021. Images were obtained in multiple scannin g planes. Real-time sonographic imaging of both br easts (including all 4 quadrants and retroareolar region) was performed. Real time sonographic imaging of bilateral axilla was performed. Real-time sonograp hic imaging of bilateral regional suyapa basins including the axillary (level I,I I,III) and internal mammary regions was performed. 1: Additional evaluation was performed f or the irregular mass seen on 11/20/2021. On [...] is a level I lymph node with co rtical thickening measuring 1.7 x 0.8 x 1.5 centimeters in the right axilla. The re is a right axillary level III node measuring 1.7 x 0.5 x 0.6cm and a second 0.4cm level III node. No level II, internal mammary and supraclavicular lym phadenopathy. 5: Additional evaluation was performed f or the left irregular mass seen on 11/20/2021. On the present examination, there is an irregular mass measuring 1.4 x 1 x 0.8 centimeters in the left breast upper outer quadrant at 2 o'clock located 5 centimeters from the nipple. 6: There is an irregular similar appeari ng mass measuring 0.6 x 0.5 x 0.7 centimeters in the left breast outer hem isphere at 3 o'clock located 5 centimeters from the nipple. This is 1.8cm from the 2:00 mass. 7: There are two indeterminate level I l ymph nodes largest measuring 1.7 x 0.7 x [...] 3: Two additional masses in the right br east lower hemisphere at 6 o'clock located 4 centimeters from the nipple an d 9:00 4cm form the nipple are suspicious. Biopsy may be considered if it would sales and service change leader. 4: Lymph nodes in the right axilla are s uspicious as above. Ultrasound guided biopsy is recommended. 5: Mass in the left breast upper outer q uadrant at 2 o'clock located 5 centimeters from the nipple is suspiciou s. Ultrasound guided biopsy is recommended. 6: Mass in the left breast outer hemisph ere at 3 o'clock located 5 centimeters from the nipple is suspicious. Ultrasoun d guided biopsy may be considered if it would sales and service change leader. 7: Lymph nodes in the left axilla are peterson spicious. Ultrasound guided biopsy is recommended. BI-RADS Category 4C: Suspicious Abnormality Elliott SEE US ORDERABLES US Guided Axillary Lymph Node FNA - Left for Breast Ultrasound (11/20/2021 5:47 PM USED CAR LOT ATTENDANT) Anatomical Region Laterality Modality Lymph Node Left Ultrasound Specimen (Source) Anatomical Collection Method Collection Time Re ceived Time Location / / Volume Laterality 11/21/2021 9:52 AM USED CAR LOT ATTENDANT Addenda Addendum by Nupur Rosario DO on [...] Nupur Rosario DO on 11/21/2021 2:06 PM USED CAR LOT ATTENDANT ADDENDED REPORT ----- 11/21/2021 Addendum: Site 6: [...] result is benign. Impressions 11/21/2021 9:52 AM USED CAR LOT ATTENDANT Technically successful ultrasound guided biopsies of the bilateral breasts. An addendum will be issued once the final p athology result is available and reviewed. Examination: Post Procedure Mammogram Bi lateral 11/20/2021. Clinical Indication: Patient is a 81 y ears old female and is seen for post procedure mammogram. Findings: See Ultrasound-guided biopsy r eport done same date. Narrative 11/21/2021 9:52 AM USED CAR LOT ATTENDANT Examination: Right Breast Ultrasound Guided Needle Biopsy [...] Biopsy Mammograms, . Clinical History: 81-year-old woman with an abnormal breast ultrasound presenting for biopsy. Indication: Suspicious finding(s) on rec ent breast ultrasound. Comparison: Mammogram from 11/20/2021. [facility]ound from 11/20/2021. Technique: Ultrasound imaging of [...] ps and covered with a bandage. A [employer] U-shaped marker clip was placed at the biopsy site. Post procedure mammography confirms expected positionin g of the marker clip(s) The clip marker lies within the biopsied lesion. Site 3: The lesion in question [...] clip(s) The clip marker lies within the biopsied lesion. Site 4: The lesion in question [...] clip(s) The clip marker lies within the biopsied lesion. Site 5: The lesion in question [...] clip(s) The clip marker lies within the biopsied lesion. The estimated blood loss for the [...] 11/20/2021. Clinical Indication: Patient is a 81 yea rs old female and is seen for post procedure mammogram. Findings: See Ultrasound-guided biopsy r eport done same date. Elliott OVERTON IMG US ORDERABLES Pathology Biopsy Interpretation (11/20/2021 3:46 PM USED CAR LOT ATTENDANT)Only the most recent of2 resultswithin the time period is included. 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 11/25/2021 [facility] Both of these histologic pat terns have identical receptor subtype as described below. The metastasis in the axillary node has tubular pattern. 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 CDT Immunohistochemical stains w ere performed on tissue sections from specimen A. The carcinoma strongly expresses GATA3 and mammaglobin, confirming the mammary origin. An immunostain for ERG highlights end othelial cells and did not d emonstrate any evidence of lymphovascular invasion. Biomarker Results: [...] Stain Intensity: Strong Progesterone Receptor: Antibody Clone: DE 16 ([employer]) Positive = 10-100%, Low Positive = 1-9% Reference: Latasha et al. Arch Pathol Lab Med 2019 Results: Positive Percent Stainin % See comment Appropriate controls are present on the slide. Staining Intensity: Strong HER2: Antibody Clone: 4B5 ([facility] [facility]) Positive cases are those wi th circumferential membrane staining that is complete, intense, and within >10% of tumor cells (Score 3+). Negative cases are defined as those with no observable staining, or membrane staining that i s incomplete and is faint/barely perceptible and within less than or equal to 10% of tumor cells (Score 0) or incomplete membrane staining that is faint/barely perceptible an d within >10% of tumor cells (Score 1+). Equivocal or indeterminate cases are those with circumferential membrane staining that is incomplete and or weak / moderate and within >10% of tumor cells or complete and circumferent ial membrane staining that is intense and within [...] samples if appropriate. Reference Maldonado miller al. Appl. Immunohistochem. Mol Morp 2005; 13; 283-286. If the specimen was not init ially processed at [facility], pre-analytical fixation times may be found in the accompanying pathology report. These assays have not been validated on decalcified tissues. Results should be interprete d with caution given the likelihood of false negativity on decalcified specimens. Gross A: 11/25/2021 [facility] Description Breast, right, right breast [...] core). ET Disclaimer "Some tests reported 11/25/2021 [facility] here may have been 11:06 AM developed and CDT performance characteristics determined by [facility]. These tests have not been specifically cleared or approved by the U.S. Food and Drug Administration. If applicable, controls were reviewed and showed appropriate reactivity." Specimen Anatomical Collection Method Collection Time Receive d Time (Source) Location / / Volume Laterality Tissue (Breast, 11/20/2021 3:46 PM 2021 1:13 Left) USED CAR LOT ATTENDANT PM USED CAR LOT ATTENDANT Tissue (Breast, 11/20/2021 3:39 PM 2021 1:08 Right) USED CAR LOT ATTENDANT PM USED CAR LOT ATTENDANT Tissue (Breast, 11/20/2021 3:41 PM 2021 1:08 Right) USED CAR LOT ATTENDANT PM USED CAR LOT ATTENDANT Tissue (Lymph 11/20/2021 5:30 PM 11/22/19 22 1:08 Node(s), Right, USED CAR LOT ATTENDANT PM USED CAR LOT ATTENDANT Axillary Level I) Elliott OVERTON LAB PATHOLOGY ORDERABLES Performing Organization Address City/State/ZIP Code Phon e Number [facility] [place] [address] [phone] (ABNORMAL) Mammography Digital Diagnostic Bilateral with Joe (11/20/2021 1:50 PM USED CAR LOT ATTENDANT) Anatomical Region Laterality Modality Breast Bilateral Mammography Specimen (Source) Anatomical Collection Method Collection Time Re ceived Time Location / / Volume Laterality 11/20/2021 5:43 PM USED CAR LOT ATTENDANT Impressions 11/20/2021 5:43 PM USED CAR LOT ATTENDANT 1: Mass in the right breast upper [...] Imaging Meryl luation Narrative 11/20/2021 5:43 PM USED CAR LOT ATTENDANT CLINICAL INDICATION: Patient is a 81 year [...] 3: Lymph node in the right axilla requir es additional imaging evaluation. An ultrasound exam is recommended. 4: Left breast mass requires additional imaging evaluation. An ultrasound exam is recommended. BI-RADS Category 0: Incomplete: Needs Additional Imaging Meryl luation Elliott OVERTON IMG MAMMOGRAPHY ORDERABLES [facility] Mammo (11/01/2021 12:43 PM USED CAR LOT ATTENDANT) Specimen (Source) Anatomical Location Collection Method / Collectio n Time Received Time / Laterality Volume Narrative [facility] - 11/20/2021 12:43 PM USED CAR LOT ATTENDANT Study acquired at another institution. For comparison only. No MD Chin originated interpretation requested or a vailable. Mónica SEE OUTSIDE IMAGE ORDERABLES Performing Organization Address City/State/ZIP Code Phon e Number [facility] US Breast (11/01/2021 12:43 PM USED CAR LOT ATTENDANT) Specimen (Source) Anatomical Location Collection Method / Collectio n Time Received Time / Laterality Volume Narrative JEN[facility] - 11/20/2021 12:43 PM USED CAR LOT ATTENDANT Study acquired at another institution. For comparison only. No MD Chin originated interpretation requested or a vailable. Mónica Joseph MD IMG OUTSIDE IMAGE ORDERABLES Performing Organization Address City/State/ZIP Code Phon e Number JENNI after 08/11/2021 Insurance Payer Benefit Plan / Subscriber ID Effective Dates Phone Addre ss Type Group AETNA MEDICARE AETNA MEDICARE [id number] 2021-Presen [address] [place] [address] Care Teams X Ray Equipment Tester Relationship Specialty Start Date End Date Gonsalo Gracia PCP - External 01/03/16 MD Tony Referring [address] [place], [place] [phone] Gonsalo Gracia PCP - External Follow 01/03/16 MD Tony Up A [address] [facility] [place], [place] [phone] Mónica Joseph, PCP - General Gynecologic Medical 02/26/16 MD Oncology [address] [place] [id number] Shaan Kauffman MD PCP - External Follow Internal Medicine 04/16/20 [address] [place] [id number]
--- OUTSIDE RECORDS SUMMARY | 2022-08-11 15:44 | XMS REPORT | Continuity of Care Document ---
:[address] [facility] t Address [address] [place] [address] Care Team Providers Name Role Phone [phone] Primary Care Physician Unavailable PORTER LIRA Attending Clinician Unavailable SYSTEM, PROVIDER NOT IN Attending Clinician Unavailable ROZINA SOTO Attending Clinician Unavailable Rozina Soto APN Attending Clinician Unavailable Lex SMALLWOOD, Lorena Warren Attending Clinician Unavailable Zaida Garber Attending Clinician NUZHAT NAVA Attending Clinician Unavailable Gurpreet Griggs NP Attending Clinician Nuzhat Nava MD Attending Clinician Amira Singh Attending Clinician [phone] Diane Rodrigues PT Attending Clinician AMIRA MARINO Attending Clinician Unavailable Diann Gan RN Attending Clinician Unavailable Jeffy RAMIREZ, Khadra Attending Clinician Porter Lira MD Attending Clinician [phone] Madison Lopez Attending Clinician Fausto See MD Attending Clinician Ally SMALLWOOD, Alice Rodriguez Attending Clinician Unavailable Chandra Lucas MD Attending Clinician SABAS MORA Attending Clinician Unavailable Sabas Wilks Attending Clinician Desire SMALLWOOD, Brenda Alvarado Attending Clinician Unavailable Scott Silverman Attending Clinician Veronica Palencia Attending Clinician Tiana Shanks MA Attending Clinician Unavailable Elliott Bravo Attending Clinician Demetrio Good MD Attending Clinician Rachel SMALLWOOD, Veronica Justice Attending Clinician DEMETRIO GOOD Attending Clinician Unavailable FAUSTO SEE Attending Clinician Unavailable PORTER LIRA Admitting Clinician Unavailable Payers Payer Name Policy Type Policy Number Effective Date Expiration Date Alberto chiang [employer] MEDICARE PPO [id number] 2021 00:00:00 Problems Condition Condition Condition Status Onset Resolution Last Treating Co mments Source Name Details Category Date Date Treatment Clinician Date 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 00:00: [place] 00 MD [facility] 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 [place] of right 00 female female [facility] breast breast [facility] Essential Essential Disease Active 2020-0 Uni vers (primary) (primary) 04-16 ity of hypertensi hypertens[place] [facility] Hyperlipid Hyperlipid Disease Active 2020-0 U layneers emia emia 04-16 ity of 00:00: [place] 00 MD [facility] Gastroesop Gastroesop Disease Active 2020-0 U nivers hageal hageal 04-16 ity of reflux reflux 00:00: [place] disease disease 00 MD [facility] History of 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 04-15 ity of neoplasm neoplasm 00:00: [place] of of 00 endometriu endometriu [facility] Malignant Malignant Disease Active Uni vers neoplasm neoplasm - ity of of of 00:00: [place] endometriu endometriu 00 MD [facility] Diabetes Diabetes Disease Active Unive rs mellitus mellitus - ity of 00:00: [place] 00 MD [facility] Allergies, Adverse Reactions, Alerts Allergy Allergy Status Severity Reaction(s) Onset Inactive Treating Comm ents Source Name Type Date Date Clinician PACLITAX DRUG Active MD EL INGREDI 4-06 Anderso 00:00: n 00 PACLITAX DRUG Active 0 MD EL INGREDI 4-06 Anderso 00:00: n 00 PACLITAX DRUG Active 2021-0 MD EL INGREDI 4-06 Anderso 00:00: n 00 PACLITAX DRUG Active 2021-0 MD EL INGREDI 4-06 Anderso 00:00: n 00 PACLITAX DRUG Active 2021-0 MD EL INGREDI 4-06 Anderso 00:00: n 00 PACLITAX DRUG Active 2021-0 MD EL INGREDI 4-06 Anderso 00:00: n 00 PACLITAX DRUG Active 2021-0 MD EL INGREDI 4-06 Anderso 00:00: n 00 PACLITAX DRUG Active 2021-0 MD EL INGREDI 4-06 Anderso 00:00: n 00 PACLITAX DRUG Active 2021-0 MD EL INGREDI 4-06 Anderso 00:00: n 00 PACLITAX DRUG Active 2021-0 MD EL INGREDI 4-06 Anderso 00:00: n 00 PACLITAX DRUG Active 2021-0 MD EL INGREDI 4-06 Anderso 00:00: n 00 PACLITAX DRUG Active 2021-0 MD EL INGREDI 4-06 Anderso 00:00: n 00 PACLITAX DRUG Active 2021-0 MD EL INGREDI 4-06 Anderso 00:00: n 00 PACLITAX DRUG Active 2021-0 MD EL INGREDI 4-06 Anderso 00:00: n 00 PACLITAX DRUG Active 2021-0 MD EL INGREDI 4-06 Anderso 00:00: n 00 PACLITAX DRUG Active 2-0 MD EL INGREDI 4-06 Anderso 00:00: n 00 PACLITAX DRUG Active 2-0 MD EL INGREDI 4-06 Anderso 00:00: n 00 PACLITAX DRUG Active 2-0 MD EL INGREDI 4-06 Anderso 00:00: n 00 PACLITAX DRUG Active 2-0 MD EL INGREDI 4-06 Anderso 00:00: n 00 PACLITAX DRUG Active 2021-0 MD EL INGREDI 4-06 Anderso 00:00: n 00 PACLITAX DRUG Active 2021-0 MD EL INGREDI 4-06 Anderso 00:00: n 00 PACLITAX DRUG Active 2021-0 MD EL INGREDI 4-06 Anderso 00:00: n 00 PACLITAX DRUG Active 2-0 MD EL INGREDI 4-06 Anderso 00:00: n 00 PACLITAX DRUG Active 2-0 MD EL INGREDI 4-06 Anderso 00:00: n 00 PACLITAX DRUG Active 2021-0 MD EL INGREDI 4-06 Anderso 00:00: n 00 PACLITAX DRUG Active 2-0 MD EL INGREDI 4-06 Anderso 00:00: n 00 PACLITAX DRUG Active 2-0 MD EL INGREDI 4-06 Anderso 00:00: n 00 PACLITAX DRUG Active 2-0 MD EL INGREDI 4-06 Anderso 00:00: n 00 PACLITAX DRUG Active 2-0 MD EL INGREDI 4-06 Anderso 00:00: n 00 PACLITAX DRUG Active 2-0 MD EL INGREDI 4-06 Anderso 00:00: n 00 PACLITAX DRUG Active 2-0 MD EL INGREDI 4-06 Anderso 00:00: n 00 PACLITAX DRUG Active 2-0 MD EL INGREDI 4-06 Anderso 00:00: n 00 PACLITAX DRUG Active 2-0 MD EL INGREDI 4-06 Anderso 00:00: n 00 PACLITAX DRUG Active 2-0 MD EL INGREDI 4-06 Anderso 00:00: n 00 PACLITAX DRUG Active 2-0 MD EL INGREDI 4-06 Anderso 00:00: n 00 PACLITAX DRUG Active 2-0 MD EL INGREDI 4-06 Anderso 00:00: n 00 PACLITAX DRUG Active 2-0 MD EL INGREDI 4-06 Anderso 00:00: n 00 PACLITAX DRUG Active 2-0 MD EL INGREDI 4-06 Anderso 00:00: n 00 PACLITAX DRUG Active 2-0 MD EL INGREDI 4-06 Anderso 00:00: n 00 PACLITAX DRUG Active 2021-0 MD EL INGREDI 4-06 Anderso 00:00: n 00 PACLITAX DRUG Active 2021-0 MD EL INGREDI 4-06 Anderso 00:00: n 00 PACLITAX DRUG Active 2021-0 MD EL INGREDI 4-06 Anderso 00:00: n 00 PACLITAX DRUG Active 2-0 MD EL INGREDI 4-06 Anderso 00:00: n 00 PACLITAX DRUG Active 2-0 MD EL INGREDI 4-06 Anderso 00:00: n 00 PACLITAX DRUG Active 2021-0 MD EL INGREDI 4-06 Anderso 00:00: n 00 PACLITAX DRUG Active 2-0 MD EL INGREDI 4-06 Anderso 00:00: n 00 PACLITAX DRUG Active 2-0 MD EL INGREDI 4-06 Anderso 00:00: n 00 PACLITAX DRUG Active 2-0 MD EL INGREDI 4-06 Anderso 00:00: n 00 PACLITAX DRUG Active 2-0 MD EL INGREDI 4-06 Anderso 00:00: n 00 PACLITAX DRUG Active 2-0 MD EL INGREDI 4-06 Anderso 00:00: n 00 PACLITAX DRUG Active 2-0 MD EL INGREDI 4-06 Anderso 00:00: n 00 PACLITAX DRUG Active 2-0 MD EL INGREDI 4-06 Anderso 00:00: n 00 PACLITAX DRUG Active 2-0 MD EL INGREDI 4-06 Anderso 00:00: n 00 PACLITAX DRUG Active 2-0 MD EL INGREDI 4-06 Anderso 00:00: n 00 PACLITAX DRUG Active 2-0 MD EL INGREDI 4-06 Anderso 00:00: n 00 PACLITAX DRUG Active 2021-0 MD EL INGREDI 4-06 Anderso 00:00: n 00 PACLITAX DRUG Active 2021-0 MD EL INGREDI 4-06 Anderso 00:00: n 00 PACLITAX DRUG Active 2-0 MD EL INGREDI 4-06 Anderso 00:00: n 00 PACLITAX DRUG Active 2-0 MD EL INGREDI 4-06 Anderso 00:00: n 00 PACLITAX DRUG Active 2021-0 MD EL INGREDI 4-06 Anderso 00:00: n 00 PACLITAX DRUG Active 2021-0 MD EL INGREDI 4-06 Anderso 00:00: n 00 PACLITAX DRUG Active 2021-0 MD EL INGREDI 4-06 Anderso 00:00: n 00 PACLITAX DRUG Active 2021-0 MD EL INGREDI 4-06 Anderso 00:00: n 00 PACLITAX DRUG Active 2021-0 MD EL INGREDI 4-06 Anderso 00:00: n 00 PACLITAX DRUG Active 2021-0 MD EL INGREDI 4-06 Anderso 00:00: n 00 PACLITAX DRUG Active 2021-0 MD EL INGREDI 4-06 Anderso 00:00: n 00 PACLITAX DRUG Active 2021-0 MD EL INGREDI 4-06 Anderso 00:00: n 00 PACLITAX DRUG Active 2-0 MD EL INGREDI 4-06 Anderso 00:00: n 00 PACLITAX DRUG Active 2-0 MD EL INGREDI 4-06 Anderso 00:00: n 00 PACLITAX DRUG Active 2021-0 MD EL INGREDI 4-06 Anderso 00:00: n 00 PACLITAX DRUG Active 2021-0 MD EL INGREDI 4-06 Anderso 00:00: n 00 PACLITAX DRUG Active 2021-0 MD EL INGREDI 4-06 Anderso 00:00: n 00 PACLITAX DRUG Active 2021-0 MD EL INGREDI 4-06 Anderso 00:00: n 00 Paclitax Propensi Active 2021-0 Facial Univer s el ty to 4-06 flushing, ity of adverse 00:00: feeling [place] reaction 00 hot, s throat Anderso "scratchy n " [facility] NO KNOWN Drug Active Univers ALLERGIE Class ity of [facility] [place] [facility] Family History Family Member Diagnosis Comments Start Date Stop Date Source Cousin -Gynecology (Ovary, [facility] Endometrial, Cervix, MD Michael lopez Cancer Vagina) Center Paternal aunt -Gastrointestinal [facility] (Esophagus, Liver, And audra Cancer Bile Duct, Stomach, Cente r Pancreas, Colon, Rectum, Anus Social History Social Habit Start Date Stop Date Quantity Comments Source Exposure to 2022-07-27 2022-08-06 Not sure [facility]-CoV-2 00:00:00 08:24:00 [place] MD Alan navarro (event) [facility] Alcohol intake 2021-12-16 2021-12-16 Current University of 00:00:00 00:00:00 non-drinker of Humaira lopez alcohol (finding) Cancer Center Tobacco use and 2016-01-16 2016-01-16 Smokeless tobacco Un iversity of exposure 00:00:00 00:00:00 non-user [place] MD Alan navarro [facility] Sex Ass[birth year] Universit y of 00:00:00 00:00:00 [place] MD Alan navarro [facility] Smoking Status Start Date Stop Date Source Never smoked tobacco [facility] Medications Ordered Filled Start Stop Current Ordering Indication Dosage Frequency Signature Comments Components Source Medication Medication Date Date Medication? Clinician (SIG) Name Name apixaban 2021-09 Yes Pulmonary 5mg Take 1 Un telly (Eliquis) 5 0-11 embolism, tablet (5 ity of mg tablet 00:00: not mg) by [place] 00 otherwise mouth specified every 12 [place] o (twelve) n hours. Cancer Center sitaGLIPtin 2021-09 Yes 100mg Take 100 U nivers (JANUVIA) 0-10 mg by ity of 100 mg 10:39: mouth [place] tablet 48 daily. MD [facility]anda atkins [facility] folic acid 2021-09 Yes 1mg Take 1 mg Un telly (FOLVITE) 1 0-10 by mouth. ity of mg tablet 10:39: [place] 48 MD [facility] pioglitazon Yes Univer s e (ACTOS) 8-09 ity of 30 mg 00:00: [place] tablet 00 MD [facility] aspirin 81 0 2021- No 81mg Take 81 mg Univers mg EC - 06-28 by mouth ity of tablet 12:28: 00:00 daily. [place] 01 :00 MD [facility] sitaGLIPtin Yes 100mg Take 100 U nivers (JANUVIA) 5-31 mg by ity of 100 mg 14:10: mouth [place] tablet 27 daily. MD [facility] at[facility] Center aspirin 81 Yes 81mg Take 81 mg U nivers mg EC 5-31 by mouth ity of tablet 14:10: daily. MD Wanda at[facility] Center folic acid Yes 1mg Take 1 mg Un telly (FOLVITE) 1 5-31 by mouth. ity of mg tablet 14:10: MD [facility] Center ondansetron Yes Infiltratin 8mg Take 1 Univers (ZOFRAN) 8 3-25 g duct tablet (8 it y of mg tablet 00:00: carcinoma mg) by [place] of right mouth MD female every 8 Anderso breast (eight) n hours as Cancer needed for Center nausea. prochlorper Yes Infiltratin 10mg Take 1 Univers azine 3-25 g duct tablet (10 ity of (COMPAZINE) 00:00: carcinoma mg) by [place] 10 mg 00 of right mouth MD tablet female every 6 Anderso breast (six) n hours as Cancer needed for Center nausea. ondansetron Yes Infiltratin 8mg Take 1 Univers (ZOFRAN) 8 3-25 g duct tablet (8 it y of mg tablet 00:00: carcinoma mg) [place] of right mouth MD female every 8 Anderso breast (eight) n hours as Cancer needed for Center nausea. prochlorper Yes Infiltratin 10mg Take 1 Univers azine 3-25 g duct tablet (10 ity of (COMPAZINE) 00:00: carcinoma mg) by [place] 10 mg 00 of right mouth MD tablet female every 6 Anderso breast (six) n hours as Cancer needed for Center nausea. aspirin 325 0 2020- No peripheral 325mg Take 325 Univers mg tablet 3-17 08-16 arterial mg by ity of 20:25: 00:00 [place]embo mouth 2 [place] billie (two) prevention times a [place] o day as n needed. [facility] clopidogrel Yes 1{tbl} Take 1 Un telly (PLAVIX) 75 7-12 tablet by ity of mg tablet 00:00: mouth [place] 00 daily. MD [facility] clopidogrel 2021- No 1{tbl} Take 1 U nivers (PLAVIX) 75 7-12 10-11 tablet by it y of mg tablet 00:00: 00:00 mouth [place] 00 :00 daily. MD [facility]anda [facility] atorvastati Yes 1{tbl} Take 1 Un telly n (LIPITOR) 7-05 tablet by ity of 80 mg 00:00: mouth [place] tablet 00 daily. MD [facility]anda [facility]kins [facility] atorvastati Yes 1{tbl} Take 1 Un telly n (LIPITOR) 7-05 tablet by ity of 80 mg 00:00: mouth [place] tablet 00 daily. MD [facility]anda [facility] ranitidine 2021- No 1{tbl} Take 1 Un telly (ZANTAC) 4-25 03-25 tablet by ity o f 150 mg 00:00: 00:00 mouth [place] tablet 00 :00 daily. MD [facility]anda at[facility] ranitidine 2021- No 1{tbl} Take 1 Un telly (ZANTAC) 4-25 03-25 tablet by ity o f 150 mg 00:00: 00:00 mouth [place] tablet 00 :00 daily. MD Wanda atkins [facility] metoprolol Yes 1{tbl} Take 1 Uni vers tartrate 3-31 tablet by ity of (LOPRESSOR) 00:00: mouth [place] 25 mg 00 twice MD tablet daily. [place] milly [facility] metoprolol Yes 1{tbl} Take 1 Uni vers tartrate 3-31 tablet by ity of (LOPRESSOR) 00:00: mouth [place] 25 mg 00 daily. [facility] Yes 1{tbl} Take 1 Univ ers (GLUCOPHAGE 3-04 tablet by ity of ) 500 mg 00:00: mouth [place] tablet 00 twice MD daily. [facility] metFORMIN 2016-0 2021- No 1{tbl} Take 1 Uni vers (GLUCOPHAGE 11-15 tablet by it y of ) 500 mg 00:00: 00:00 mouth [place] tablet 00 :00 twice daily. [facility] Immunizations Ordered Filled Immunization Date Status Comments [facility] SARS-CoV-2 2021-07-15 Completed Univer sity of Vaccination 00:00:00 [facility] vincent [facility] SARS-CoV-2 2021-07-15 Completed Univer sity of Vaccination 00:00:00 [place] vincent [facility] SARS-CoV-2 2021-01-14 Completed Univer sity of Vaccination 00:00:00 [place] vincent [facility] SARS-CoV-2 2021-01-14 Completed Univer sity [facility]:00[facility] 2020-12-17 Completed Univer sity of Vaccination 00:00:00 [facility] White [facility]in [facility] SARS-CoV-2 2020-12-17 Completed Univer sity of Vaccination 00:00:00 Hum[place] White [facility] Vital Signs Vital Name Observation Time Observation Value Comments Source WEIGHT 2020-04-16 11:56:44 89.8 kg Systolic blood 2022-08-06 15:31:00 117 mm[Hg] Univer sity of pressure [facility] Diastolic blood 2022-08-06 15:31:00 58 mm[Hg] Unive rsity of pressure [facility] Heart rate 2022-08-06 15:31:00 69 /min Universi ty [facility] Body temperature 2022-08-06 15:31:00 36.44 Mayelin [facility] Respiratory rate 2022-08-06 15:31:00 18 /min [facility] Body weight 2022-08-06 15:31:00 76.3 kg Universi ty [facility] BMI 2022-08-06 15:31:00 29.25 kg/m2 Universi ty [facility] Oxygen saturation in 2022-07-17 18:01:00 98 /min University of Arterial blood by Humaira lopez Pulse oximetry Cancer Center Body height 2022-05-21 15:55:00 161.5 cm Universi ty of [facility] Systolic blood 2022-03-04 20:32:00 126 mm[Hg] Univer sity of pressure [place] MD [facility] Diastolic blood 2022-03-04 20:32:00 78 mm[Hg] Unive rsity of pressure [place] MD [facility] Heart rate 2022-03-04 20:32:00 84 /min Universi ty of [place] MD [facility] Respiratory rate 2022-03-04 20:32:00 18 /min [facility] MD Go on [facility] Body temperature 2022-03-04 18:54:36 36.72 Mayelin [facility] MD Go on [facility] Body weight 2022-03-04 18:54:36 83.1 kg Universi ty of [place] MD [facility] BMI 2022-03-04 18:54:36 32.26 kg/m2 Universi ty of [place] MD [facility] Oxygen saturation in 2022-03-04 18:54:36 96 /min University of Arterial blood by Humaira lopez Pulse oximetry [facility] Center Body height 2021-12-18 16:14:00 160.5 cm Universi ty of [place] MD [facility] Procedures Procedure Date / Time Performing Clinician Source Performed COMPLETE BLOOD COUNT W/ 2022-08-06 14:22:00 Rozina Soto [facility] DIFFERENTIAL [facility] Center COMPREHENSIVE METABOLIC 2022-08-06 14:22:00 Chrystal-Nuzhat [facility] PANEL [facility] Center Results CBC 2022-08-06 14:22:00 Rozina Soto [place] [facility] Center MANUAL DIFFERENTIAL 2022-08-06 14:22:00 Rozina Soto [facility] GLUCOSE LEVEL 2022-08-06 14:22:00 Chrystal-Nuzhat [facility]ley [facility] BLOOD UREA NITROGEN 2022-08-06 14:22:00 Chrystal-Iheme, Nuzhat [facility] ELECTROLYTE PANEL 2022-08-06 14:22:00 Chrystal-Nuzhat [facility]ingsley [facility] SERUM CREATININE 2022-08-06 14:22:00 Chrystal-Nuzhat [facility] .GLOMERULAR FILTRATION 2022-08-06 14:22:00 Chrystal-Nuzhat [facility]ley [facility] RATE [facility] CALCIUM LEVEL TOTAL 2022-08-06 14:22:00 [facility]rystal[facility] ALBUMIN LEVEL 2022-08-06 14:22:00 Chrystal-Nuzhat [facility]ley [facility] [place] [facility] ALKALINE PHOSPHATASE 2022-08-06 14:22:00 Chrystal-Nuzhat Billingsley [facility] ALANINE AMINOTRANSFERASE 2022-08-06 14:22:00 Chrystal-Jose Cruz [facility] ASPARTATE AMINOTRANSFERASE 2022-08-06 14:22:00 Chrystal-Nazario [facility] TOTAL PROTEIN 2022-08-06 14:22:00 Chrystal-Nuzhat [facility]ley [facility] [place] [facility] FRACTIONATED BILIRUBIN 2022-08-06 14:22:00 Chrystal-Nuzhat Billingsley [facility] COMPLETE BLOOD COUNT W/ 2022-07-17 16:49:31 Chrystal-Nuzhat [facility] DIFFERENTIAL [facility] ASPARTATE AMINOTRANSFERASE 2022-07-17 16:49:31 Chrystal-Nazario [facility] ALANINE AMINOTRANSFERASE 2022-07-17 16:49:31 Chrystal-Jose Cruz [facility] ALKALINE PHOSPHATASE 2022-07-17 16:49:31 [facility] BILIRUBIN TOTAL 2022-07-17 16:49:31 Chrystal-Iheme, Nuzhat [facility] Results CBC 2022-07-17 16:49:31 Chrystal-Iheme, Nuzhat [facility] MANUAL DIFFERENTIAL 2022-07-17 16:49:31 Chrystal-Iheme, Nuzhat [facility] Center COMPLETE BLOOD COUNT W/ 2022-07-04 16:01:54 Chrystal-Iheme, Nuzhat [facility] DIFFERENTIAL [facility] Center ASPARTATE AMINOTRANSFERASE 2022-07-04 16:01:54 Chrystal-IhNazario mckay [facility] er Center ALANINE AMINOTRANSFERASE 2022-07-04 16:01:54 Chrystal-Ihwoody, Nuzhat [facility] [place] [facility] ALKALINE PHOSPHATASE 2022-07-04 16:01:54 Chrystal-IhNuzhat mckay [facility] BILIRUBIN TOTAL 2022-07-04 16:01:54 Chrystal-Iheme, Nuzhat [facility] Results CBC 2022-07-04 16:01:54 Chrystal-IhemeNuzhat [facility] MANUAL DIFFERENTIAL 2022-07-04 16:01:54 Chrystal-IhNuzhat mckay [facility] Center US ARM VENOUS DOPPLER 2022-06-30 19:46:39 Dayana Marino [facility] BILATERAL Amira [facility] Center US LEG VENOUS DOPPLER 2022-06-30 19:46:39 Dayana Marino [facility] BILATERAL Amira [facility] Center CT ABDOMEN PELVIS W 2022-06-23 17:20:00 Porter Lira [facility] CONTRAST Vinod RAMIREZ [facility] POC CREATININE 2022-06-23 16:41:00 [facility] [place] [facility]od RAM[facility] COMPREHENSIVE METABOLIC 2022-06-11 17:08:00 Nuzhat Nava [facility] PANEL [facility] COMPLETE BLOOD COUNT W/ 2022-06-11 17:08:00 Nuzhat Nava [facility] DIFFERENTIAL [facility] GLUCOSE LEVEL 2022-06-11 17:08:00 Nuzhat Nava [facility] [place] [facility] BLOOD UREA NITROGEN 2022-06-11 17:08:00 Nuzhat Nava [facility] ELECTROLYTE PANEL 2022-06-11 17:08:00 Chrystal-Nuzhat [facility] SERUM CREATININE 2022-06-11 17:08:00 Nuzhat Nava [facility] .GLOMERULAR FILTRATION 2022-06-11 17:08:[address] [facility] RATE [facility] CALCIUM LEVEL TOTAL 2022-06-11 17:08:00 Nuzhat Nava [facility] ALBUMIN LEVEL 2022-06-11 17:08:00 Chrystal-Nuzhat [facility] [place] [facility] ALKALINE PHOSPHATASE 2022-06-11 17:08:00 Chrystal-Nuzhat Billingsley [facility] ALANINE AMINOTRANSFERASE 2022-06-11 17:08:00 Nuzhat Nava [facility] ASPARTATE AMINOTRANSFERASE 2022-06-11 17:08:00 ChrystalNazario [facility] TOTAL PROTEIN 2022-06-11 17:08:00 Chrystal-Nuzhat Billingsley [facility] [place] [facility] FRACTIONATED BILIRUBIN 2022-06-11 17:08:00 Chrystal-Nuzhat Billingsley [facility] Results CBC 2022-06-11 17:08:00 Chrystal-Nuzhat Billingsley [facility] [place] [facility] MANUAL DIFFERENTIAL 2022-06-11 17:08:00 Chrystal-Iheme, Nuzhat [facility] COMPLETE BLOOD COUNT W/ 2022-05-21 15:01:26 Chrystal-Iheme, Nuzhat [facility] DIFFERENTIAL [facility] BLOOD UREA NITROGEN 2022-05-21 15:01:26 [facility] SERUM CREATININE 2022-05-21 15:01:26 Chrystal-Iheme, Nuzhat [facility] ASPARTATE AMINOTRANSFERASE 2022-05-21 15:01:26 Chrystal-Nazario Billingsley [facility] ALANINE AMINOTRANSFERASE 2022-05-21 15:01:26 [facility]wo[facility] ALKALINE PHOSPHATASE 2022-05-21 15:01:26 Chrystal-Nuzhat Billingsley [facility] BILIRUBIN TOTAL 2022-05-21 15:01:26 [facility] 2022-05-21 15:01:26 [facility]ody[facility] MANUAL DIFFERENTIAL 2022-05-21 15:01:26 [facility]rystal[facility], [facility] SERUM CREATININE 2022-05-21 15:01:26 Chrystal-IhNuzhat mckay [facility] .GLOMERULAR FILTRATION 2022-05-21 15:01:26 [facility]rystal[facility]Nuzhat [facility] COMPLETE BLOOD COUNT W/ 2022-04-23 19:44:00 Chrystal-Ihwoody, Nuzhat [facility] DIFFERENTIAL [facility] BLOOD UREA NITROGEN 2022-04-23 19:44:00 [facility] 2022-04-23 19:44:00 Chrystal-Iheme, Nuzhat [facility] ASPARTATE AMINOTRANSFERASE 2022-04-23 19:44:00 Chrystal-Iheme, Nazario [facility] ALANINE AMINOTRANSFERASE 2022-04-23 19:44:00 Chrystal-Iheme, Nuzhat [facility] ALKALINE PHOSPHATASE 2022-04-23 19:44:00 Chrystal-Iheme, Nuzhat [facility] BILIRUBIN TOTAL 2022-04-23 19:44:00 Chrystal-Iheme, Nuzhat [facility] Results CBC 2022-04-23 19:44:00 Chrystal-Iheme, Nuzhat [facility] MANUAL DIFFERENTIAL 2022-04-23 19:44:00 Chrystal-IhemeNuzhat [facility] SERUM CREATININE 2022-04-23 19:44:00 Chrystal-Iheme, Nuzhat [facility] .GLOMERULAR FILTRATION 2022-04-23 19:44:00 [facility]rystal[facility]hemeNuzhat [facility] US BREAST COMPLETE RIGHT 2022-04-11 15:19:47 Jean [facility] CHEST/INFRACLAV 2022-04-11 15:19:[address] [facility] COMPLETE BLOOD COUNT W/ 2022-04-01 17:12:00 Rozina Soto [facility] DIFFERENTIAL [facility] Results CBC 2022-04-01 17:12:00 Rozina Soto [place] [facility] MANUAL DIFFERENTIAL 2022-04-01 17:12:00 Rozina Soto [facility] COMPLETE BLOOD COUNT W/ 2022-03-25 18:26:25 Rozina Soto [facility] DIFFERENTIAL [facility] Results CBC 2022-03-25 18:26:25 Rozina Soto [facility] Canc er Center MANUAL DIFFERENTIAL 2022-03-25 18:26:25 Rozina Soto [facility] er Center COMPLETE BLOOD COUNT W/ 2022-03-18 17:23:30 Rozina Soto [facility] [place] DIFFERENTIAL MD Giuseppe Canc er Center Results CBC 2022-03-18 17:23:30 Rozina Soto [place] [facility] Canc er Center MANUAL DIFFERENTIAL 2022-03-18 17:23:30 [facility] Center COMPLETE BLOOD COUNT W/ 2022-03-11 15:44:07 Rozina Soto [facility] [place] DIFFERENTIAL [facility] Results CBC 2022-03-11 15:44:07 Rozina Soto [facility] Canc er Center MANUAL DIFFERENTIAL 2022-03-11 15:44:07 [facility]ozina Soto [facility] Center COMPLETE BLOOD COUNT W/ 2022-03-04 17:14:19 Rozina Soto [facility] [place] DI[facility]ENTIAL [facility] Center Results CBC 2022-03-04 17:14:19 Rozina Soto [facility] Can er Center MANUAL DIFFERENTIAL 2022-03-04 17:14:19 Rozina Soto [facility] ty [facility] Can er Center COMPLETE BLOOD COUNT W/ 2022-02-25 15:41:00 Rozina Soto [facility] [place] DIFFERENTIAL [facility] Results CBC 2022-02-25 15:41:00 Rozina Soto [facility] Canc er Center MANUAL DIFFERENTIAL 2022-02-25 15:41:00 Rozina Soto [facility] COMPLETE BLOOD COUNT W/ 2022-02-18 17:43:41 Rozina Soto [facility] [place] DIFFERENTIAL [facility] er Center ASPARTATE AMINOTRANSFERASE 2022-02-18 17:43:41 Rozina Soto [facility] ALANINE AMINOTRANSFERASE 2022-02-18 17:43:41 Rozina Soto Uni versity [facility] Can er Center ALKALINE PHOSPHATASE 2022-02-18 17:43:41 Rozina Soto ity [facility] er Center BILIRUBIN TOTAL 2022-02-18 17:43:41 Rozina Soto o f [facility] Canc er Center Results CBC 2022-02-18 17:43:41 Rozina Soto o f [facility] C[facility] er Center MANUAL DIFFERENTIAL 2022-02-18 17:43:41 Rozina Soto [facility]i ty [facility] Center COMPLETE BLOOD COUNT W/ 2022-02-11 18:11:00 Rozina Soto [facility] [place] DIFFERENTIAL [facility] er Center ASPARTATE AMINOTRANSFERASE 2022-02-11 18:11:00 Rozina Soto [facility] ALANINE AMINOTRANSFERASE 2022-02-11 18:11:00 Rozina Soto Uni versity [facility] ALKALINE PHOSPHATASE 2022-02-11 18:11:00 Rozina Soto [facility] BILIRUBIN TOTAL 2022-02-11 18:11:00 Rozina Soto o f [facility] C[facility] er Center Results CBC 2022-02-11 18:11:00 Rozina Soto [place] [facility] Center MANUAL DIFFERENTIAL 2022-02-11 18:11:00 Rozina Soto [facility]i ty [facility] COMPLETE BLOOD COUNT W/ 2022-02-04 17:39:16 Rozina Soto [facility] [place] DIFFERENTIAL [facility] Center Results CBC 2022-02-04 17:39:16 Rozina Soto o [facility] Canc er Center MANUAL DIFFERENTIAL 2022-02-04 17:39:16 Rozina Soto [facility]i ty [facility] COMPLETE BLOOD COUNT W/ 2022-01-29 15:39:02 Rozina Soto [facility] [place] DIFFERENTIAL [facility] Center Results CBC 2022-01-29 15:39:02 Rozina Soto o [facility] C[facility] er Center MANUAL DIFFERENTIAL 2022-01-29 15:39:02 Rozina Soto [facility]i ty [facility] COMPLETE BLOOD COUNT W/ 2022-01-23 16:27:34 Rozina Soto [facility] [place] DIFFERENTIAL MD Giuseppe Canc er Center Results CBC 2022-01-23 16:27:34 Rozina Soto o f [facility] Giuseppe Canc er Center MANUAL DIFFERENTIAL 2022-01-23 16:27:34 Rozina Soto [facility] ty of [facility] Canc er Center ECHOCARDIOGRAM 2D COMPLETE 2022-01-17 19:15:31 Rozina [facility] [place] MD Giuseppe Canc er Center COMPLETE BLOOD COUNT W/ 2022-01-15 15:34:20 Rozina Soto [facility] [place] DIFFERENTIAL MD Giuseppe Canc er Center Results CBC 2022-01-15 15:34:20 Rozina Soto [place] [facility] [place] Giuseppe Canc er Center MANUAL DIFFERENTIAL 2022-01-15 15:34:20 Rozina Soto [facility] ty of [facility] Canc er Center COMPLETE BLOOD COUNT W/ 2022-01-08 13:42:19 Rozina Soto [facility] [place] DIFFERENTIAL MD Giuseppe Canc er Center Results CBC 2022-01-08 13:42:[address] [facility] Giuseppe Canc er Center MANUAL DIFFERENTIAL 2022-01-08 13:42:19 Rozina Soto [facility] ty of [facility] Canc er Center COMPLETE BLOOD COUNT W/ 2022-01-01 17:33:14 Rozina Soto [facility] [place] DI[facility]ENTIAL MD Giuseppe C[facility] er Center Results CBC 2022-01-01 17:33:14 Rozina Soto [facility] Canc er Center MANUAL DIFFERENTIAL 2022-01-01 17:33:14 Rozina Soto [facility] ty of [facility] C[facility] er Center COMPLETE BLOOD COUNT W/ 2021-12-25 17:14:01 Rozina Soto [facility] [place] DIFFERENTIAL MD Giuseppe Canc er Center Results CBC 2021-12-25 17:14:[address] [facility] Giuseppe Canc er Center MANUAL DIFFERENTIAL 2021-12-25 17:14:01 Rozina Soto [facility] C[facility] Center COMPLETE BLOOD COUNT W/ 2021-12-18 14:42:00 Rozina Soto [facility] [place] DIFFERENTIAL [facility] Center ASPARTATE AMINOTRANSFERASE 2021-12-18 14:42:00 Rozina [facility]oto [facility] ALANINE AMINOTRANSFERASE 2021-12-18 14:42:00 Rozina Soto [facility] ALKALINE PHOSPHATASE 2021-12-18 14:42:00 Rozina Soto [facility] BILIRUBIN TOTAL 2021-12-18 14:42:00 Rozina Soto [place] [facility] Results CBC 2021-12-18 14:42:00 Rozina Soto [place] [facility] MANUAL DIFFERENTIAL 2021-12-18 14:42:00 [facility] FL PORT PLACEMENT 2021-12-16 22:58:21 Rozina Soto [facility] POC GLUCOSE SCREEN 2021-12-16 20:23:00 Sabas Mora [facility] COMPLETE BLOOD COUNT W/ 2021-12-16 17:41:00 Sabas Mora [facility] CARBON DIOXIDE LEVEL 2021-12-16 17:41:00 Sabas Mora [facility] CHLORIDE LEVEL 2021-12-16 17:41:00 Sabas Mora [facility] [place] Center SODIUM LEVEL 2021-12-16 17:41:00 Sabas Mora [facility] Center POTASSIUM LEVEL 2021-12-16 17:41:00 Sabas Mora [facility] Center SERUM CREATININE 2021-12-16 17:41:00 Sabas Morait [facility] BLOOD UREA NITROGEN 2021-12-16 17:41:00 Sabas Mora [facility] GLUCOSE, RANDOM 2021-12-16 17:41:00 Sabas Mora [facility] er Center TYPE AND SCREEN 2021-12-16 17:41:00 Sabas Mora [facility] Results CBC 2021-12-16 17:41:00 Sabas Mora [facility] SERUM CREATININE 2021-12-16 17:41:00 Sabas Mora [facility] .GLOMERULAR FILTRATION 2021-12-16 17:41:00 Sabas Mor[facility] 2021-12-16 17:41:00 Sabas Mora [facility] ANTIBODY SCREEN 2021-12-16 17:41:00 Sabas Mora [facility] MANUAL DIFFERENTIAL 2021-12-16 17:41:00 Sabas Mora [facility] ANION GAP 2021-12-16 17:41:00 Sabas Mora [facility] CLOT EXPIRATION DATE 2021-12-16 17:41:00 Sabas Mora [facility] TMP INTERPRETATION 2021-12-16 17:41:00 Sabas Mora [facility] ANTIBODY SCREEN NEGATIVE MD [facility] CONFIRM ABORH TYPE 2021-12-16 17:40:00 Sabas Mora [facility] PROTHROMBIN TIME 2021-12-16 17:33:00 Sabas Mora [facility] EKG, 12-LEAD (SCHEDULED) 2021-12-16 00:00:00 Sabas Mora [facility] MAMMO POST PROCEDURE RIGHT 2021-12-13 16:41:46 Jamila [facility] US BREAST FINE NEEDLE 2021-12-13 16:34:54 Dayana Marino [facility] ASPIRATION - RIGHT [facility] [address] US GUIDED BREAST CLIP 2021-12-13 16:34:54 Dayana Marino [facility] PLACEMENT RIGHT [facility] CYTOLOGY IMAGE-GUIDED FNA 2021-12-13 14:56:00 Jamila, [facility] CYTOLOGY IMAGE-GUIDED FNA 2021-12-13 14:54:00 Jamila, [facility] INTER[facility] CT CHEST ABDOMEN PELVIS W 2021-12-06 18:17:25 Jamila, [facility] WO CONTRAST [facility] POC CREATININE 2021-12-06 16:46:00 Jamila, [facility] NM BONE SCAN WHOLE BODY 2021-12-06 15:56:00 Jamila, Uni [facility] MAMMO POST PROCEDURE 2021-11-20 23:56:32 Elliott Murry [facility] BILATERAL [facility] US BREAST COMPLETE 2021-11-20 23:47:00 Elliott Murry [facility] BILATERAL [facility] Center US CHEST 2021-11-20 23:47:00 Elliott Murry [place] [facility] US HEAD NECK SOFT TISSUE 2021-11-20 23:47:[address] [facility] US GUIDED BREAST BIOPSY 2021-11-20 23:47:00 Elliott Murry [facility] RIGHT [facility] US GUIDED INFRACLAVICULAR 2021-11-20 23:47:00 Elliott Murry [facility] LYMPH NODE FNA - RIGHT [facility] GUIDED BREAST BIOPSY 2021-11-20 23:47:00 Elliott Murry [facility] LEFT [facility] US GUIDED AXILLARY LYMPH 2021-11-20 23:47:00 Elliott Murry Uni [facility] NODE FNA LEFT [facility] CYTOLOGY IMAGE-GUIDED FNA 2021-11-20 21:48:00 Elliott Murry Un [facility] INTERPRETATION [facility] PATHOLOGY BIOPSY 2021-11-20 21:46:00 Elliott Murry [facility] INTERPRETATION MD Giuseppe Canc er Center CYTOLOGY IMAGE-GUIDED FNA 2021-11-20 21:44:00 Elliott Murry [facility] PATHOLOGY BIOPSY 2021-11-20 21:39:00 Elliott Murry [facility] INTERPRETATION [facility] MAMMO DIGITAL DIAGNOSTIC 2021-11-20 19:50:00 Elliott Murry Uni versity [facility] [place] BILATERAL W [place] OSI US BREAST 2021-11-01 18:43:00 Fausto See [facility] er Center OSI MAMMO BILATERAL 2021-11-01 18:43:00 Fausto See Unive [facility]ity [facility] Plan of Care Planned Activity Planned Date Details Comments Source Future Scheduled 2022-08-06 COVID-19 Vaccination (4 University of Test 10:18:18 - Booster for Moderna [facility] series) [code = Cancer Cente r COVID-19 Vaccination (4 - Booster for Moderna series)] Future Scheduled 2022-03-07 COVID-19 Vaccination (4 University of Test 07:36:25 - Booster for Moderna [facility] series) [code = Cancer Cente r COVID-19 Vaccination (4 - Booster for Moderna series)] Future Appointment 2022-09-11 Porter Lira MD, [address] 07:00:00 [place] [address] [facility] Future Appointment 2022-09-11 Porter Lira MD, [address] 07:00:00 [place] [address] [facility] Procedure 2022-09-11 SEGMENTAL MASTECTOMY - Unive rsity of 13:00:00 OTHER [facility] Procedure 2022-09-11 AXILLARY University of 13:00:00 LYMPHADENECTOMY [facility] Encounters Start End Encounter Admission Attending Care Care Encounter Source Date/Time Date/Time Type Type Clinicians Facility Department ID 2022-04-18 Outpatient TALHA LIRA [facility] [id number] 08:53:31 PORTER atkins 2021-11-20 Outpatient TALHA ROSA MDA [id number] 13:33:08 PROVIDER Donavan atkins 2022-08-06 2022-08-06 Outpatient ROZINA MARES MDA MDA [id number] 08:24:41 12:01:38 Donavanluli atkins 2022-08-06 2022-08-06 Infusion oRzina Soto 1.2.840.1 [id number] [facility] 08:15:00 12:01:38 Lex Lorena W 08504.1.1 ity of 3.412.2.7 [place] .3.052502 MD [email or web address] [facility] 2022-08-06 2022-08-06 Outpatient ROZINA MARES MDA MDA [id number] 08:11:37 08:26:44 Donavanluli atkins 2022-08-06 2022-08-06 Travel 1.2.840.1 1.2.598.678 [id number] [facility] 00:00:00 00:00:00 33815.1.1 350.1.13.41 ity of 3.412.2.7 [place].698 [place] .3.685[place] 084.8 MD [email or web address] [facility] 2022-08-05 2022-08-05 Orders Zaida Blackmon 1.2.840.1 [id number] [facility] 00:00:00 00:00:00 Only B 02421.1.1 ity of 3.412.2.7 [place] .3.005894 MD Squires [facility] 2022-07-17 2022-07-17 Outpatient ROZINA MARES MDA MDA [id number] 11:54:28 15:42:17 Donavan atkins 2022-07-17 2022-07-17 Infusion Georgie Sotoi 1.2.840.1 [id number] [facility] 11:45:00 15:42:17 28092.1.1 ity of 3.412.2.7 [place] .3.875973 MD [email or web address] [facility] 2022-07-17 2022-07-17 [facility] MDA [id number] 11:39:14 11:42:45 , NUZHAT atkins 2022-07-17 2022-07-17 Travel 1.2.840.1 1.2.377.707 [id number] Univers 00:00:00 00:00:00 57942.1.1 350.1.13.41 ity of 3.412.2.7 [place].3.698 [place] .3.415770 084.8 MD Squires [facility] 2022-07-17 2022-07-17 Gurpreet Ware 1.2.840.1 [id number] Univers 00:00:00 00:00:00 Only 07701.1.1 ity of 3.412.2.7 [place] .3.871282 MD [email or web address] [facility] 2022-07-16 2022-07-16 Telemedici Chrystal-Iheme 1.2.840.1 [id number] Univers 10:30:00 11:00:00 ne Nuzhat 63955.1.1 ity of 3.412.2.7 [place] .3.679272 MD Squires [facility] 2022-07-14 2022-07-14 Orders Chrystal-Iheme 1.2.840.1 [id number] Univers 00:00:00 00:00:00 Only Nuzhat 85418.1.1 ity of 3.412.2.7 [place] .3.661102 MD Squires [facility] 2022-07-09 2022-07-09 Telephone Munroe-Marisol 1.2.840.1 [id number] Univers 00:00:00 00:00:00 Amira tavarez 82670.1.1 ity of 3.412.2.7 [place] .3.832938 MD Squires [facility] 2022-07-09 2022-07-09 Orders Munroe-Marisol 1.2.840.1 [id number] Univers 00:00:00 00:00:00 Only Amira tavarez 33650.1.1 ity of 3.412.2.7 [place] .3.552246 MD Squires [facility] 2022-07-09 2022-07-09 [facility] 1.2.840.1 [id number] [facility] 00:00:00 00:00:00 Only Nuzhat 12715.1.1 ity of 3.412.2.7 [place] .3.820261 .8 [facility] 2022-07-04 2022-07-04 Evaluation Amira Marino 1.2.840. 1 [id number] [facility] 10:30:00 11:30:00 Diane Rodrigues 74034.1.1 ity of 3.412.2.7 [place] .3.540106 MD [email or web address] [facility] 2022-07-04 2022-07-04 Outpatient EL MUNROE-MARISOL MDA MDA [id number] MD 11:11:14 11:11:14 AMIRA TAVAREZ n 2022-07-04 2022-07-04 Outpatient [facility] MDA MDA [id number] 10:53:29 10:53:54 , NUZHAT Alan so 2022-07-04 2022-07-04 Travel 1.2.840.1 1.2.630.732 [id number] [facility] 00:00:00 00:00:00 15448.1.1 350.1.13.41 ity of 3.412.2.7 [place]7.3.698 [place] .3.178887 084.8 .8 [facility] 2022-06-30 2022-06-30 Ancillary Munroe-Marisol 1.2.840.1 [id number] [facility] 11:30:00 13:30:00 Procedure Amira tavarez 72061.1.1 ity of 3.412.2.7 [place] .3.649000 MD [email or web address] [facility] 2022-06-30 2022-06-30 Outpatient EL MUNROE-MARISOL MDA MDA [id number] 11:55:14 11:55:14 AMIRA TAVAREZso n 2022-06-30 2022-06-30 Telephone Munroe-Marisol 1.2.840.1 [id number] Univers 00:00:00 00:00:00 Amira tavarez 20277.1.1 ity of 3.412.2.7 [place] .3.905179 MD [email or web address] [facility] 2022-06-30 2022-06-30 Telephone Munroe-Marisol 1.2.840.1 [id number] Univers 00:00:00 00:00:00 Amira tavarez 55290.1.1 ity of 3.412.2.7 [place] .3.431334 MD [email or web address] [facility] 2022-06-30 2022-06-30 Telephone Mariposa, 1.2.840.1 [id number] Univers 00:00:00 00:00:00 Diann Rodriguez 38938.1.1 ity of 3.412.2.7 [place] .3.227648 MD [email or web address] [facility] 2022-06-30 2022-06-30 Orders Munroe-Marisol 1.2.840.1 [id number] Univers 00:00:00 00:00:00 Only Amira tavarez 68502.1.1 ity of 3.412.2.7 [place] .3.642553 MD Squires [facility] 2022-06-30 2022-06-30 Travel 1.2.840.1 1.2.126.594 [id number] Univers 00:00:00 00:00:00 93854.1.1 350.1.13.41 ity of 3.412.2.7 [place]7.3.698 [place] .3.854999 084.8 MD Zuñiga8 [facility] 2022-06-25 2022-06-25 Jaxson Bardales, 1.2.840.1 [id number] Univers 00:00:00 00:00:00 Only Khadra 01537.1.1 ity of 3.412.2.7 [place] .3.939991 .8 [facility] 2022-06-25 2022-06-25 Orders Shaneka-Marisol 1.2.840.1 [id number] Univers 00:00:00 00:00:00 Only Amira tavarez 73579.1.1 ity of 3.412.2.7 [place] .3.954631 .8 [facility] 2022-06-24 2022-06-24 Orders Ede 1.2.840.1 [id number] Univers 00:00:00 00:00:00 Only Amira tavarez 80289.1.1 ity of 3.412.2.7 [place] .3.883766 .8 [facility] 2022-06-24 2022-06-24 Orders Gurpreet Griggs 1.2.840.1 [id number] Univers 00:00:00 00:00:00 Only 71055.1.1 ity of 3.412.2.7 [place] .3.038473 .8 [facility] 2022-06-24 2022-06-24 Telephone [place], 1.2.840.1 [id number] Univers 00:00:00 00:00:00 Diann A 27571.1.1 ity of 3.412.2.7 [place] .3.203166 .8 [facility] 2022-06-23 2022-06-23 Ancillary Pankaj, 1.2.840.1 [id number] Univers 09:45:00 12:10:00 Procedure Porter Guerrero 02182.1.1 ity of [place] 3.412.2.7 [place] .3.714264 MD Zuñiga8 [facility] 2022-06-23 2022-06-23 Outpatient EL PANKAJ, TALHA [facility] [id number] 10:24:41 10:24:41 PORTER Donavan o 2022-06-23 2022-06-23 Travel 1.2.840.1 1.2.513.630 [id number] Univers 00:00:00 00:00:00 90077.1.1 350.1.13.41 ity of 3.412.2.7 [place].7.3.698 [place] .3.939466 084.8 .8 [facility] 2022-06-11 2022-06-11 Outpatient EL ROZINA SOTO MDA MDA [id number] 14:21:18 16:36:41 [facility] 2022-06-11 2022-06-11 Infusion Carli Rozina 1.2.840.1 [id number] [facility] 13:45:00 16:36:41 Lorena Burnett 01949.1.1 ity of 3.412.2.7 [place] .3.212439 .8 [facility] 2022-06-11 2022-06-11 Outpatient CHRYSTAL-IHEME MDA MDA [id number] 13:08:44 16:05:43 , NUZHAT atkins 2022-06-11 2022-06-11 Office Chrystal-Nuzhat mckay 1.2.840.1 [id number] [facility] 11:00:00 16:05:43 Visit [place] 17540.1.1 ity of 3.412.2.7 [place] .3.572807 .8 [facility] 2022-06-11 2022-06-11 Outpatient [facility] [id number] 12:08:24 12:46:38 , NUZHAT walsh n 2022-06-11 2022-06-11 Orders Chrystal-Iheme 1.2.840.1 [id number] [facility] 00:00:00 00:00:00 Only , Nuzhat 48438.1.1 ity of 3.412.2.7 [place] .3.613250 .8 [facility] 2022-06-11 2022-06-11 Travel 1.2.840.1 1.2.007.103 [id number] [facility] 00:00:00 00:00:00 15458.1.1 350.1.13.41 ity of 3.412.2.7 [place]7.3.698 [place] .3.330520 084.8 .8 [facility] 2022-06-11 2022-06-11 Telephone [place]ip[place], 1.2.840.1 [id number] Univers 00:00:00 00:00:00 Diann Rodriguez 30396.1.1 ity of 3.412.2.7 [place] .3.747881 MD Zuñiga8 [facility] 2022-06-10 2022-06-10 Orders Chrystal-Ihwoody 1.2.840.1 [id number] [facility] 00:00:00 00:00:00 Only , Nuzhat 42148.1.1 ity of 3.412.2.7 [place] .3.019122 MD Squires [facility] 2022-05-21 2022-05-21 Outpatient ROZINA MARES [facility] [id number] 10:01:46 15:10:34 [facility] 2022-05-21 2022-05-21 Rozina Orozco 1.2.840.1 [id number] [facility] 10:00:00 15:10:34 29267.1.1 ity of 3.412.2.7 [place] .3.323613 MD Squires [facility] 2022-05-21 2022-05-21 Outpatient MJ [facility] [id number] 09:45:39 09:53:14 , [facility] 2022-[facility] 2022-05-21 [facility] 1.2.840.1 1.2.383.775 [id number] [facility] 00:00:00 00:00:00 56967.1.1 350.1.13.41 ity of 3.412.2.7 2.2.7.3.698 [place] .3.507786 084.8 MD Squires [facility] 2022-05-14 2022-05-14 Orders Ede 1.2.840.1 [id number] Univers 00:00:00 00:00:00 Only Amira tavarez 88063.1.1 ity of 3.412.2.7 [place] .3.869541 MD Squires [facility] 2022-05-13 2022-05-13 Outpatient [facility] [id number] 14:34:01 14:34:01 , NUZHAT Alananabel atkins 2022-05-13 2022-05-13 Office [facility] 1.2.840.1 [id number] [facility] 14:00:00 14:30:00 Visit Nuzhat 65522.1.1 ity of 3.412.2.7 [place] .3.774531 MD Zuñiga8 [facility] 2022-05-13 2022-05-13 Travel 1.2.840.1 [id number] [id number] [facility] 00:00:00 00:00:00 64159.1.1 350.1.13.41 ity of 3.412.2.[place] 2.[place].3.698 [place] .3.110878 084.8 MD Zuñiga8 [facility] 2022-04-23 2022-04-23 [place] [facility] [id number] 14:43:58 14:54:12 , [facility]ZHAT [facility] 2022-04-22 2022-04-22 Rozina Hernandez 1.2.840.1 [id number] Univers 00:00:00 00:00:00 Only 51106.1.1 ity of 3.412.2.7 [place] .3.515870 MD Zuñiga8 [facility] 2022-04-17 2022-04-17 Prep for Ede 1.2.840.1 [id number] 1 [id number] [facility] 00:00:00 00:00:00 Surgery Amira tavarez 29476.1.1 ity of 3.412.2.7 [place] .3.389808 MD Zuñiga8 [facility] 2022-04-17 2022-04-17 Orders Munroe-Marisol 1.2.840.1 [id number] 10 [id number] [facility] 00:00:00 00:00:00 Only Amira tavarez 50031.1.1 ity of 3.412.2.7 [place] .3.402929 MD Zuñiga8 [facility] 2022-04-16 2022-04-16 Telemedici Chrystal-Iheme 1.2.840.1 [id number] [facility] 10:30:00 11:00:00 ne Nuzhat 04537.1.1 ity of 3.412.2.7 [place] .3.735203 MD Zuñiga8 [facility] 2022-04-11 2022-04-11 Office Chrystal-Iheme 1.2.840.1 [id number] 10 [id number] [facility] 14:30:00 15:00:00 Visit Nuzhat 73364.1.1 ity of 3.412.2.7 [place] .3.881999 .8 [facility] 2022-04-11 2022-04-11 Outpatient EL CHRYSTAL-IHEME MDA MDA [id number] 14:46:52 14:46:52 , NUZHAT Phillips so n 2022-04-11 2022-04-11 Outpatient EL REFINETTI, MDA MDA [id number] 13:30:12 14:23:06 PORTER atkins 2022-04-11 2022-04-11 Office Refinetti, 1.2.840.1 [id number] [facility] 10:00:00 14:23:06 Visit Porter Guerrero 24880.1.1 it y of Brock 3.412.2.7 [place] .3.250970 MD Zuñiga8 [facility] 2022-04-11 2022-04-11 Ancillary Munroe-Marisol 1.2.840.1 [id number] [facility] 07:50:00 08:50:00 Procedure Amira tavarez 38931.1.1 ity of 3.412.2.7 [place] .3.931258 MD Squires [facility] 2022-04-11 2022-04-11 Outpatient [facility] [id number] 08:29:58 08:29:58 AMIRA TAVAREZ n 2022-04-11 2022-04-11 Orders Zaida Blackmon 1.2.840.1 [id number] [facility] 00:00:00 00:00:00 Only B 68436.1.1 ity of 3.412.2.7 [place] .3.269236 MD Squires [facility] 2022-04-11 2022-04-11 Orders Chrystal-Iheme 1.2.840.1 [id number] 10 [id number] [facility] 00:00:00 00:00:00 Only , Nuzhat 58363.1.1 ity of 3.412.2.7 [place] .3.899030 MD Squires [facility] 2022-04-11 2022-04-11 Travel 1.2.840.1 1.2.625.083 6340 [id number] [facility] 00:00:00 00:00:00 62910.1.1 350.1.13.41 ity of 3.412.2.7 [place].3.698 [place]3.401[place] 084.8 MD Squires [facility] 2022-04-10 2022-04-10 Orders Rozina Soto 1.2.840.1 [id number] 10 [id number] [facility] 00:00:00 00:00:00 Only 38009.1.1 ity of 3.412.2.7 [place] .3.773925 MD Squires [facility] 2022-04-09 2022-04-09 Orders Chrystal-Iheme 1.2.840.1 [id number] 10 [id number] [facility] 00:00:00 00:00:00 Only , Nuzhat 00904.1.1 ity of 3.412.2.7 [place] .3.178163 MD Squires [facility] 2022-04-09 2022-04-09 Telephone Rozina Soto 1.2.840.1 [id number] [facility] 00:00:00 00:00:00 45687.1.1 ity of 3.412.2.7 [place] .3.798320 MD Zuñiga8 [facility] 2022-04-01 2022-04-01 Infusion Rozina Soto 1.2.840.1 [id number] 1 [id number] [facility] 13:00:00 15:00:00 71741.1.1 ity of 3.412.2.7 [place] .3.422790 MD Zuñiga8 [facility] 2022-04-01 2022-04-01 Outpatient ROZINA MARES MDA MDA [id number] 12:25:43 12:25:43 [facility] 2022-04-01 2022-04-01 Outpatient ROZINA MARES MDA MDA [id number] 12:11:48 12:17:13 [facility] 2022-04-01 2022-04-01 Travel 1.2.840.1 1.2.974.529 [id number] [facility] 00:00:00 00:00:00 20877.1.1 350.1.13.41 ity of 3.412.2.7 [place]7.3.698 [place]3.4[place] 084.8 MD Zuñiga8 [facility] 2022-03-25 2022-03-25 Infusion Rozina Soto 1.2.840.1 [id number] 1 [id number] [facility] 13:00:00 17:51:54 54238.1.1 ity of 3.412.2.7 [place] .3.953655 MD Zuñiga8 [facility] 2022-03-25 2022-03-25 Outpatient ROZINA MARES MDA MDA [id number] 12:55:51 17:51:54 [facility] 2022-03-25 2022-03-25 Outpatient ROZINA MARES MDA MDA [id number] 13:16:29 13:16:56 [facility] 2022-03-25 2022-03-25 Orders Chrystal-Iheme 1.2.840.1 [id number] 10 [id number] [facility] 00:00:00 00:00:00 Only , Nuzhat 91105.1.1 ity of 3.412.2.7 [place] .3.870112 MD Squires [facility] 2022-03-25 2022-03-25 Rozina Hernandez 1.2.840.1 [id number] 10 [id number] [facility] 00:00:00 00:00:00 Only 22417.1.1 ity of 3.412.2.7 [place] .3.819181 MD Squires [facility] 2022-03-25 2022-03-25 Travel 1.2.840.1 1.2.406.942 2588 [id number] [facility] 00:00:00 00:00:00 29780.1.1 350.1.13.41 ity of 3.412.2.7 [place].7.3.698 [place]3.596525 084.8 MD Squires [facility] 2022-03-18 2022-03-18 Infusion Chrystal-Iheme 1.2.840.1 [id number] 1 [id number] [facility] 13:00:00 15:00:00 , Nuzhat 68705.1.1 ity of 3.412.2.7 [place] .3.289189 MD Squires [facility] 2022-03-18 2022-03-18 Outpatient EL CHRYSTAL-JOSE CRUZ MDA MDA [id number] 12:27:36 12:27:36 , NUZHAT Phillips so 2022-03-18 2022-03-18 Outpatient ROZINA MARES MDA MDA [id number] 12:15:26 12:18:[address] [facility] 2022-03-18 2022-03-18 Travel 1.2.840.1 1.2.747.646 9675 [id number] [facility] 00:00:00 00:00:00 23779.1.1 350.1.13.41 ity of 3.412.2.7 2.[place].7.3.698 [place]3.9096[place] 084.8 MD Zuiñga8 [facility] 2022-03-13 2022-03-13 Rozina Hernandez 1.2.840.1 [id number] 10 [id number] [facility] 00:00:00 00:00:00 Only 84565.1.1 ity of 3.412.2.7 [place] .3.050024 MD Zuñiga8 [facility] 2022-03-11 2022-03-11 Telemedici Chrystal-Iheme 1.2.840.1 [id number] [facility] 12:45:00 13:15:00 ne , Nuzhat 65744.1.1 ity of 3.412.2.7 [place] .3.439739 MD Zuñiga8 [facility] 2022-03-11 2022-03-11 Infusion Chrystal-Iheme 1.2.840.1 [id number] 1 [id number] [facility] 11:00:00 13:00:00 , Nuzhat 84467.1.1 ity of 3.412.2.7 [place] .3.678515 MD Squires [facility] 2022-03-11 2022-03-11 Outpatient EL CHRYSTAL-IHEME MDA MDA [id number] 12:58:29 12:58:29 , NUZHAT Phillips so milly 2022-03-11 2022-03-11 Outpatient ROZINA MARES MDA MDA [id number] 10:36:25 10:39:37 Donavan atkins 2022-03-11 2022-03-11 Outpatient EL CHRYSTAL-IHEME MDA MDA [id number] 00:00:00 00:00:00 , NUZHAT Phillips so n 2022-03-11 2022-03-11 Travel 1.2.840.1 1.2.716.987 [id number] [facility] 00:00:00 00:00:00 09753.1.1 350.1.13.41 ity of 3.412.2.7 2.[place].7.3.698 [place]3.2764[place] 084.8 MD Zuñiga8 [facility] 2022-03-10 2022-03-10 Georgie Hernandezi 1.2.840.1 [id number] 10 [id number] [facility] 00:00:00 00:00:00 Only 56356.1.1 ity of 3.412.2.7 [place] .3.736023 MD Squires [facility] 2022-03-10 2022-03-10 Orders Chrystal-Iheme 1.2.840.1 [id number] 10 [id number] [facility] 00:00:00 00:00:00 Only , Nuzhat 51372.1.1 ity of 3.412.2.7 [place] .3.908236 MD Squires [facility] 2022-03-04 2022-03-04 Infusion Rozina Soto 1.2.840.1 [id number] 1 [id number] [facility] 13:00:00 15:00:00 77517.1.1 ity of 3.412.2.7 [place] .3.980569 MD Squires [facility] 2022-03-04 2022-03-04 Infusion Rozina Soto 1.2.840.1 [id number] 1 [id number] [facility] 13:00:00 15:00:00 38681.1.1 ity of 3.412.2.7 [place] .3.181473 MD Squires [facility] 2022-03-04 2022-03-04 Orders Shaneka-Marisol 1.2.840.1 [id number] 10 [id number] [facility] 00:00:00 00:00:00 Only Amira tavarez 98098.1.1 ity of 3.412.2.7 [place] .3.823149 MD Squires [facility] 2022-03-04 2022-03-04 Travel 1.2.840.1 1.2.252.895 7385 [id number] [facility] 00:00:00 00:00:00 44135.1.1 350.1.13.41 ity of 3.412.2.7 [place].7.3.698 [place]3.656312 084.8 MD Squires [facility] 2022-03-04 2022-03-04 Orders Munroe-Marisol 1.2.840.1 [id number] 10 [id number] [facility] 00:00:00 00:00:00 Only shay Amira 14081.1.1 ity of 3.412.2.7 [place] .3.242901 MD Zuñiga8 [facility] 2022-03-04 2022-03-04 Travel 1.2.840.1 1.2.835.156 5474 [id number] [facility] 00:00:00 00:00:00 74259.1.1 350.1.13.41 ity of 3.412.2.7 2.2.7.3.698 [place] .3.154369 084.8 MD Zuñiga8 [facility] 2022-03-03 2022-03-03 Orders Munroe-Marisol 1.2.840.1 [id number] 10 [id number] [facility] 00:00:00 00:00:00 Only shay Amira 54533.1.1 ity of 3.412.2.7 [place] .3.487941 MD Zuñiga8 [facility] 2022-03-03 2022-03-03 Orders Munroe-Marisol 1.2.840.1 [id number] 10 [id number] [facility] 00:00:00 00:00:00 Only shay Amira 87042.1.1 ity of 3.412.2.7 [place] .3.796118 MD Zuñiga8 [facility] 2022-03-03 2022-03-03 Orders Munroe-Marisol 1.2.840.1 [id number] 10 [id number] [facility] 00:00:00 00:00:00 Only shay Amira 31626.1.1 ity of 3.412.2.7 [place] .3.177002 MD Zuñiga8 [facility] 2022-03-03 2022-03-03 Orders Munroe-Marisol 1.2.840.1 [id number] 10 [id number] [facility] 00:00:00 00:00:00 Only shay Amira 79096.1.1 ity of 3.412.2.7 [place] .3.860916 MD Squires [facility] 2022-02-25 2022-02-25 Infusion Rozina Soto 1.2.840.1 [id number] 1 [id number] [facility] 10:45:00 15:56:41 40137.1.1 ity of 3.412.2.7 [place] .3.689213 MD Zuñiga8 [facility] 2022-02-25 2022-02-25 Infusion Rozina Soto 1.2.840.1 [id number] 1 [id number] [facility] 10:45:00 15:56:41 24094.1.1 ity of 3.412.2.7 [place] .3.345418 MD Zuñiga8 [facility] 2022-02-25 2022-02-25 Travel 1.2.840.1 1.2.451.452 3696 [id number] [facility] 00:00:00 00:00:00 73268.1.1 350.1.13.41 ity of 3.412.2.7 2.2.7.3.698 [place] .3.555281 084.8 MD Zuñiga8 [facility] 2022-02-25 2022-02-25 Travel 1.2.840.1 1.2.648.862 4177 [id number] [facility] 00:00:00 00:00:00 13483.1.1 350.1.13.41 ity of 3.412.2.7 2.2.7.3.698 [place] .3.629323 084.8 MD Squires [facility] 2022-02-24 2022-02-24 Orders Munroe-Marisol 1.2.840.1 [id number] 10 [id number] [facility] 00:00:00 00:00:00 Only Amira tavaerz 64847.1.1 ity of 3.412.2.7 [place] .3.079043 MD Squires [facility] 2022-02-24 2022-02-24 Orders Munroe-Marisol 1.2.840.1 [id number] 10 [id number] [facility] 00:00:00 00:00:00 Only shay Amira 64892.1.1 ity of 3.412.2.7 [place] .3.957055 MD Squires [facility] 2022-02-18 2022-02-18 Infusion Rozina Soto 1.2.840.1 [id number] 1 [id number] [facility] 10:15:00 17:25:37 38591.1.1 ity of 3.412.2.7 [place] .3.429168 MD Squires [facility] 2022-02-18 2022-02-18 Infusion Rozina Soto 1.2.840.1 [id number] 1 [id number] [facility] 10:15:00 17:25:37 81226.1.1 ity of 3.412.2.7 [place] .3.021702 MD Squires [facility] 2022-02-18 2022-02-18 Orders Rozina Soto 1.2.840.1 [id number] 10 [id number] [facility] 00:00:00 00:00:00 Only 72587.1.1 ity of 3.412.2.7 [place] .3.473463 MD Squires [facility] 2022-02-18 2022-02-18 Travel 1.2.840.1 1.2.342.863 1190 [id number] [facility] 00:00:00 00:00:00 34681.1.1 350.1.13.41 ity of 3.412.2.7 2.2.7.3.698 [place] .3.471511 084.8 MD Squires [facility] 2022-02-18 2022-02-18 Orders Chrystal-Iheme 1.2.840.1 [id number] 10 [id number] [facility] 00:00:00 00:00:00 Only Nuzhat 34532.1.1 ity of 3.412.2.7 [place] .3.773685 MD Squires [facility] 2022-02-18 2022-02-18 Rozina Hernandez 1.2.840.1 [id number] 10 [id number] [facility] 00:00:00 00:00:00 Only 57904.1.1 ity of 3.412.2.7 [place] .3.947682 MD Squires [facility] 2022-02-18 2022-02-18 Travel 1.2.840.1 1.2.012.532 5044 [id number] [facility] 00:00:00 00:00:00 92888.1.1 350.1.13.41 ity of 3.412.2.7 2.2.7.3.698 [place] .3.447562 084.8 MD Squires [facility] 2022-02-18 2022-02-18 Orders Chrystal-Iheme 1.2.840.1 [id number] 10 [id number] [facility] 00:00:00 00:00:00 Only , Nuzhat 52752.1.1 ity of 3.412.2.7 [place] .3.266007 MD Squires [facility] 2022-02-11 2022-02-11 Office Chrystal-Iheme 1.2.840.1 [id number] 10 [id number] Univers 14:30:00 14:30:00 Visit , Nuzhat 31791.1.1 ity of 3.412.2.7 [place] .3.423193 MD Squires [facility] 2022-02-11 2022-02-11 Office Chrystal-Iheme 1.2.840.1 [id number] 10 [id number] [facility] 14:30:00 14:30:00 Visit , Nuzhat 78470.1.1 ity of 3.412.2.7 [place] .3.409487 MD Squires [facility] 2022-02-11 2022-02-11 Travel 1.2.840.1 1.2.955.232 7501 [id number] [facility] 00:00:00 00:00:00 03731.1.1 350.1.13.41 ity of 3.412.2.7 2.2.7.3.698 [place] .3.046384 084.8 MD Squires [facility] 2022-02-11 2022-02-11 Travel 1.2.840.1 1.2.932.031 9210 [id number] [facility] 00:00:00 00:00:00 32376.1.1 350.1.13.41 ity of 3.412.2.7 2.2.7.3.698 [place] .3.706567 084.8 MD Squires [facility] 2022-02-04 2022-02-04 Infusion Rozina Soto 1.2.840.1 [id number] 1 [id number] [facility] 13:45:00 16:11:13 76795.1.1 ity of 3.412.2.7 [place] .3.084167 MD Squires [facility] 2022-02-04 2022-02-04 Infusion Rozina Soto 1.2.840.1 [id number] 1 [id number] Univers 13:45:00 16:11:13 88580.1.1 ity of 3.412.2.7 [place] .3.054077 MD Squires [facility] 2022-02-04 2022-02-04 Travel 1.2.840.1 1.2.815.480 8580 [id number] [facility] 00:00:00 00:00:00 67673.1.1 350.1.13.41 ity of 3.412.2.7 2.2.7.3.698 [place] .3.510601 084.8 MD Squires [facility] 2022-02-04 2022-02-04 Travel 1.2.840.1 1.2.117.473 8227 [id number] [facility] 00:00:00 00:00:00 50606.1.1 350.1.13.41 ity of 3.412.2.7 2.2.7.3.698 [place] .3.229390 084.8 MD Squires [facility] 2022-01-29 2022-01-29 Infusion Rozina Soto 1.2.840.1 [id number] 1 [id number] Univers 11:15:00 15:44:58 04829.1.1 ity of 3.412.2.7 [place] .3.200234 MD Squires [facility] 2022-01-29 2022-01-29 Infusion Rozina Soto 1.2.840.1 [id number] 1 [id number] Univers 11:15:00 15:44:58 20701.1.1 ity of 3.412.2.7 [place] .3.018119 MD Squires [facility] 2022-01-29 2022-01-29 Travel 1.2.840.1 1.2.312.741 7553 [id number] [facility] 00:00:00 00:00:00 07113.1.1 350.1.13.41 ity of 3.412.2.7 2.2.7.3.698 [place] .3.851571 084.8 MD Squires [facility] 2022-01-29 2022-01-29 Travel 1.2.840.1 1.2.141.019 4273 [id number] [facility] 00:00:00 00:00:00 87960.1.1 350.1.13.41 ity of 3.412.2.7 2.2.7.3.698 [place] .3.838151 084.8 MD Squires [facility] 2022-01-23 2022-01-23 Infusion Rozina Soto 1.2.840.1 [id number] 1 [id number] Univers 11:30:00 16:44:59 95949.1.1 ity of 3.412.2.7 [place] .3.801730 MD Squires [facility] 2022-01-23 2022-01-23 Infusion Rozina Soto 1.2.840.1 [id number] 1 [id number] Univers 11:30:00 16:44:59 85105.1.1 ity of 3.412.2.7 [place] .3.266529 MD Squires [facility] 2022-01-23 2022-01-23 Orders Rozina Soto 1.2.840.1 [id number] 10 [id number] [facility] 00:00:00 00:00:00 Only 66738.1.1 ity of 3.412.2.7 [place] .3.244075 MD Squires [facility] 2022-01-23 2022-01-23 Travel 1.2.840.1 1.2.670.046 4053 [id number] [facility] 00:00:00 00:00:00 70702.1.1 350.1.13.41 ity of 3.412.2.7 2.2.7.3.698 [place] .3.068211 084.8 MD Squires [facility] 2022-01-23 2022-01-23 Rozina Hernandez 1.2.840.1 [id number] 10 [id number] Univers 00:00:00 00:00:00 Only 51767.1.1 ity of 3.412.2.7 [place] .3.779317 MD Squires [facility] 2022-01-23 2022-01-23 Travel 1.2.840.1 1.2.224.557 1321 [id number] [facility] 00:00:00 00:00:00 50274.1.1 350.1.13.41 ity of 3.412.2.7 2.2.7.3.698 [place] .3.011153 084.8 MD Squires [facility] 2022-01-22 2022-01-22 Rozina Hernandez 1.2.840.1 [id number] 10 [id number] [facility] 00:00:00 00:00:00 Only 16961.1.1 ity of 3.412.2.7 [place] .3.451721 MD Squires [facility] 2022-01-22 2022-01-22 Rozina Hernandez 1.2.840.1 [id number] 10 [id number] [facility] 00:00:00 00:00:00 Only 49970.1.1 ity of 3.412.2.7 [place] .3.930313 MD Squires [facility] 2022-01-17 2022-01-17 [facility] Rozina Soto 1.2.840.1 [id number] 1 [id number] Univers 13:00:00 23:59:00 Encounter 45324.1.1 it y of 3.412.2.7 [place] .3.309501 MD Squires [facility] 2022-01-17 2022-01-17 Hospital Rozina Soto 1.2.840.1 [id number] 1 [id number] Univers 13:00:00 23:59:00 Encounter 45706.1.1 it y of 3.412.2.7 [place] .3.982965 MD Squires [facility] 2022-01-17 2022-01-17 Travel 1.2.840.1 1.2.485.772 8120 [id number] [facility] 00:00:00 00:00:00 28254.1.1 350.1.13.41 ity of 3.412.2.7 2.2.7.3.698 [place] .3.591052 084.8 MD Squires [facility] 2022-01-17 2022-01-17 Travel 1.2.840.1 1.2.443.292 6360 [id number] [facility] 00:00:00 00:00:00 77404.1.1 350.1.13.41 ity of 3.412.2.7 2.2.7.3.698 [place] .3.790562 084.8 MD Squires [facility] 2022-01-15 2022-01-15 Infusion Rozina Soto 1.2.840.1 [id number] 1 [id number] Univers 13:00:00 16:18:09 83014.1.1 ity of 3.412.2.7 [place] .3.605013 MD Squires [facility] 2022-01-15 2022-01-15 Infusion Rozina Soto 1.2.840.1 [id number] 1 [id number] Univers 13:00:00 16:18:09 48281.1.1 ity of 3.412.2.7 [place] .3.716996 MD Squires [facility] 2022-01-15 2022-01-15 Telemedici Chrystal-Iheme 1.2.840.1 [id number] [facility] 11:30:00 11:56:36 ne , Nuzhat 64805.1.1 ity of 3.412.2.7 [place] .3.501478 MD Zuñiga8 [facility] 2022-01-15 2022-01-15 Telemedici Chrystal-Iheme 1.2.840.1 [id number] Univers 11:30:00 11:56:36 ne , Nuzhat 49206.1.1 ity of 3.412.2.7 [place] .3.894663 MD Zuñiga8 [facility] 2022-01-15 2022-01-15 Travel 1.2.840.1 1.2.573.426 0426 [id number] [facility] 00:00:00 00:00:00 39910.1.1 350.1.13.41 ity of 3.412.2.7 2.2.7.3.698 [place] .3.826894 084.8 MD Zuñiga8 [facility] 2022-01-15 2022-01-15 Travel 1.2.840.1 1.2.394.201 4162 [id number] [facility] 00:00:00 00:00:00 96209.1.1 350.1.13.41 ity of 3.412.2.7 2.2.7.3.698 [place] .3.279832 084.8 MD Zuñiga8 [facility] 2022-01-14 2022-01-14 Orders Chrystal-Iheme 1.2.840.1 [id number] 10 [id number] [facility] 00:00:00 00:00:00 Only , Nuzhat 79779.1.1 ity of 3.412.2.7 [place] .3.297022 MD Zuñiga8 [facility] 2022-01-14 2022-01-14 Orders Chrystal-Iheme 1.2.840.1 [id number] 10 [id number] Univers 00:00:00 00:00:00 Only , Nuzhat 57908.1.1 ity of 3.412.2.7 [place] .3.244056 MD Squires [facility] 2022-01-08 2022-01-08 Infusion Rozina Soto 1.2.840.1 [id number] 1 [id number] [facility] 10:30:00 16:10:48 43492.1.1 ity of 3.412.2.7 [place] .3.213430 MD Squires [facility] 2022-01-08 2022-01-08 Infusion Rozina Mares 1.2.840.1 [id number] 1 [id number] Univers 10:30:00 16:10:48 37248.1.1 ity of 3.412.2.7 [place] .3.989290 MD Squires [facility] 2022-01-08 2022-01-08 Outpatient ROZINA MARES MDA MDA [id number] [place] 08:29:14 08:33:53 [facility] 2022-01-08 2022-01-08 Travel 1.2.840.1 1.2.819.556 8829 [id number] Univers 00:00:00 00:00:00 05988.1.1 350.1.13.41 ity of 3.412.2.7 2.2.7.3.698 [place] .3.040175 084.Rubia Squires [facility] 2022-01-08 2022-01-08 Travel 1.2.840.1 1.2.314.970 8202 243897 [facility] 00:00:00 00:00:00 62096.1.1 350.1.13.41 ity of 3.412.2.7 2.2.7.3.698 [place] .3.894011 084Yogesh8 MD Squires [facility] 2022-01-02 2022-01-02 Ancillary Opal, 1.2.840.1 [id number] [id number] [facility] 23:10:00 23:15:00 Glynn Veras 52346.1.1 ity of 3.412.2.7 [place] .3.282823 MD Squires [facility] 2022-01-02 2022-01-02 Ancillary MJ See, 1.2.840.1 [id number] [facility] 23:10:00 23:15:00 Procedure Fausto Veras 82589.1.1 ity of 3.412.2.7 [place] .3.876976 MD [email or web address] [facility] 2022-01-02 2022-01-02 Ancillary Opal, 1.2.840.1 [id number] 029 [id number] Univers 23:05:00 23:10:00 Procedure Fausto Veras 16699.1.1 ity of 3.412.2.7 [place] .3.251249 MD [email or web address] [facility] 2022-01-02 2022-01-02 Ancillary MJ See, 1.2.840.1 [id number] [facility] 23:05:00 23:10:00 Procedure Fausto Veras 00420.1.1 ity of 3.412.2.7 [place] .3.028271 MD [email or web address] [facility] 2022-01-02 2022-01-02 Ancillary Opal, 1.2.840.1 [id number] 889 [id number] [facility] 23:00:00 23:05:00 Procedure Fausto Veras 27492.1.1 ity of 3.412.2.7 [place] .3.627341 MD Zuñiga8 [facility] 2022-01-02 2022-01-02 Ancillary MJ See, 1.2.840.1 [id number] 308 [id number] [facility] 23:00:00 23:05:00 Procedure Fausto Veras 51056.1.1 ity of 3.412.2.7 [place] .3.262420 MD [email or web address] [facility] 2022-01-02 2022-01-02 Ancillary Opal, 1.2.840.1 [id number] 753 [id number] [facility] 22:55:00 23:00:00 Procedure Fausto Veras 41065.1.1 ity of 3.412.2.7 [place] .3.712475 MD [email or web address] [facility] 2022-01-02 2022-01-02 Ancillary EL See, 1.2.840.1 [id number] 623 [id number] [facility] 22:55:00 23:00:00 Procedure Fausto D. 18389.1.1 ity of 3.412.2.7 [place] .3.912115 MD Zuñiga8 [facility] 2022-01-02 2022-01-02 Ancillary See, 1.2.840.1 [id number] 411 [id number] [facility] 22:50:00 22:55:00 Procedure Fausto Geena. 20193.1.1 ity of 3.412.2.7 [place] .3.045721 MD Zuñiga8 [facility] 2022-01-02 2022-01-02 Ancillary MJ BarbosaSee, 1.2.840.1 [id number] [id number] [facility] 22:50:00 22:55:00 Procedure Fausto D. 65746.1.1 ity of 3.412.2.7 [place] .3.663372 MD [email or web address] [facility] 2022-01-02 2022-01-02 Ancillary See, 1.2.840.1 [id number] 895 [id number] [facility] 22:45:00 22:50:00 Procedure Fausto D. 91038.1.1 ity of 3.412.2.7 [place] .3.873404 MD Zuñiga8 [facility] 2022-01-02 2022-01-02 Ancillary EL See, 1.2.840.1 [id number] 201 [id number] [facility] 22:45:00 22:50:00 Procedure Afusto Eda 42079.1.1 ity of 3.412.2.7 [place] .3.125978 MD [email or web address] [facility] 2022-01-02 2022-01-02 Ancillary See, 1.2.840.1 [id number] 563 [id number] [facility] 22:40:00 22:45:00 Procedure Fausto D. 49116.1.1 ity of 3.412.2.7 [place] .3.570161 MD Zuñiga8 [facility] 2022-01-02 2022-01-02 Ancillary EL See, 1.2.840.1 [id number] 228 [id number] [facility] 22:40:00 22:45:00 Procedure Fausto Veras 38737.1.1 ity of 3.412.2.7 [place] .3.915600 MD Zuñiga8 [facility] 2022-01-02 2022-01-02 Ancillary Opal, 1.2.840.1 [id number] 029 [id number] [facility] 22:35:00 22:40:00 Procedure aFusto Veras 81079.1.1 ity of 3.412.2.7 [place] .3.171824 MD [email or web address] [facility] 2022-01-02 2022-01-02 Ancillary MJ See, 1.2.840.1 [id number] 918 [id number] [facility] 22:35:00 22:40:00 Procedure Fausto Veras 24339.1.1 ity of 3.412.2.7 [place] .3.583526 MD [email or web address] [facility] 2022-01-02 2022-01-02 Ancillary Opal, 1.2.840.1 [id number] 787 [id number] [facility] 22:30:00 22:35:00 Procedure Fausto Veras 93293.1.1 ity of 3.412.2.7 [place] .3.766658 MD [email or web address] [facility] 2022-01-02 2022-01-02 Ancillary MJ See, 1.2.840.1 [id number] 631 [id number] [facility] 22:30:00 22:35:00 Procedure Fausto Veras 52164.1.1 ity of 3.412.2.7 [place] .3.380773 MD [email or web address] [facility] 2022-01-01 2022-01-01 Infusion Rozina Soto 1.2.840.1 [id number] 1 [id number] [facility] 13:15:00 15:15:00 66334.1.1 ity of 3.412.2.7 [place] .3.463470 MD Zuñiga8 [facility] 2022-01-01 2022-01-01 Infusion EL Rozina Soto 1.2.840.1 [id number] 1 [id number] [facility] 13:15:00 15:15:00 55972.1.1 ity of 3.412.2.7 [place] .3.241244 MD [email or web address] [facility] 2022-01-01 2022-01-01 Outpatient [facility] [id number] 12:16:58 12:26:[address] [facility] 2022-01-01 2022-01-01 Emergency [facility] [id number] Univers 11:49:14 11:50:00 ity of [facility] 2022-01-01 2022-01-01 Orders Rozina Soto 1.2.840.1 [id number] 10 [id number] [facility] 00:00:00 00:00:00 Only 81586.1.1 ity of 3.412.2.7 [place] .3.298880 MD [email or web address] [facility] 2022-01-01 2022-01-01 Orders Ede 1.2.840.1 [id number] 10 [id number] [facility] 00:00:00 00:00:00 Only Amira tavarez 12788.1.1 ity of 3.412.2.7 [place] .3.163531 MD [email or web address] [facility] 2022-01-01 2022-01-01 Travel 1.2.840.1 1.2.088.216 5809 [id number] Univers 00:00:00 00:00:00 07407.1.1 350.1.13.41 ity of 3.412.2.[place].698 [place]3.[place] 084.8 MD Zuñiga8 [facility] 2022-01-01 2022-01-01 Orders Rozina Soto 1.2.840.1 [id number] 10 [id number] Univers 00:00:00 00:00:00 Only 49135.1.1 ity of 3.412.2.7 [place] .3.431803 MD Squires [facility] 2022-01-01 2022-01-01 Orders Ede 1.2.840.1 [id number] 10 [id number] Univers 00:00:00 00:00:00 Only shay Amira 03082.1.1 ity of 3.412.2.7 [place] .3.499171 MD Zuñiga8 [facility] 2022-01-01 2022-01-01 Travel 1.2.840.1 1.2.808.314 7646 [id number] Univers 00:00:00 00:00:00 72314.1.1 350.1.13.41 it[place] of 3.412.2.[place].3.698 [place]3.7567[place] 084.8 MD Zuñiga8 [facility] 2021-12-31 2021-12-31 Orders Chrystal-Iheme 1.2.840.1 [id number] 10 [id number] Univers 00:00:00 00:00:00 Only , Nuzhat 85611.1.1 ity of 3.412.2.7 [place] .3.862853 MD Squires [facility] 2021-12-31 2021-12-31 Orders Rozina Soto 1.2.840.1 [id number] 10 [id number] Univers 00:00:00 00:00:00 Only 71387.1.1 ity of 3.412.2.7 [place] .3.648465 MD Squires [facility] 2021-12-31 2021-12-31 Orders Chrystal-Iheme 1.2.840.1 [id number] 10 [id number] Univers 00:00:00 00:00:00 Only , Nuzhat 27219.1.1 ity of 3.412.2.7 [place] .3.169743 MD Squires [facility] 2021-12-31 2021-12-31 Orders Rozina Soto 1.2.840.1 [id number] 10 [id number] Univers 00:00:00 00:00:00 Only 43594.1.1 ity of 3.412.2.7 [place] .3.485539 MD Squires [facility] 2021-12-25 2021-12-25 Infusion oRzina Soto 1.2.840.1 [id number] 1 [id number] Univers 13:15:00 16:24:19 79374.1.1 ity of 3.412.2.7 [place] .3.196112 MD Squires [facility] 2021-12-25 2021-12-25 Infusion Rozina Mares 1.2.840.1 [id number] 1 [id number] [facility] 13:15:00 16:24:19 91012.1.1 ity of 3.412.2.7 [place] .3.388862 MD Zuñiga8 [facility] 2021-12-25 2021-12-25 Outpatient ROZINA MARES [facility] MDA [id number] 12:08:34 12:09:28 [facility] 2021-12-25 2021-12-25 Travel 1.2.840.1 1.2.814.572 6002 [id number] Univers 00:00:00 00:00:00 06616.1.1 350.1.13.41 ity of 3.412.2.[place]7.3.698 [place] .3.565[place] 084.8 MD Zuñiga8 [facility] 2021-12-25 2021-12-25 Travel 1.2.840.1 1.2.174.361 5870 [id number] Univers 00:00:00 00:00:00 17555.1.1 350.1.13.41 ity of 3.412.2.7 [place]7.3.698 [place] .3.417828 084.8 MD Zuñiga8 [facility] 2021-12-20 2021-12-20 Telephone Ally, 1.2.840.1 [id number] 1091 [id number] Univers 00:00:00 00:00:00 Alice Rodriguez 29565.1.1 ity of 3.412.2.7 [place] .3.480412 MD Zuñiga8 [facility] 2021-12-20 2021-12-20 Telephone Ally, 1.2.840.1 [id number] 1091 [id number] Univers 00:00:00 00:00:00 Alice Rodriguez 33169.1.1 ity of 3.412.2.7 [place] .3.570524 MD Squires [facility] 2021-12-19 2021-12-19 Orders Chrystal-Iheme 1.2.840.1 [id number] 10 [id number] Univers 00:00:00 00:00:00 Only , Nuzhat 68486.1.1 ity of 3.412.2.7 [place] .3.751595 MD Zuñiga8 [facility] 2021-12-19 2021-12-19 Rozina Hernandez 1.2.840.1 [id number] 10 [id number] Univers 00:00:00 00:00:00 Only 47784.1.1 ity of 3.412.2.7 [place] .3.720890 MD Zuñiga8 [facility] 2021-12-19 2021-12-19 Orders Chrystal-Iheme 1.2.840.1 [id number] 10 [id number] Univers 00:00:00 00:00:00 Only , Nuzhat 37410.1.1 ity of 3.412.2.7 [place] .3.782711 MD Zuñiga8 [facility] 2021-12-19 2021-12-19 Rozina Hernandez 1.2.840.1 [id number] 10 [id number] Univers 00:00:00 00:00:00 Only 10583.1.1 ity of 3.412.2.7 [place] .3.663082 MD Squires [facility] 2021-12-18 2021-12-18 Rozina Orozco 1.2.840.1 [id number] 1 [id number] Univers 10:30:00 16:44:47 47733.1.1 ity of 3.412.2.7 [place] .3.717521 MD Squires [facility] 2021-12-18 2021-12-18 Infusion Rozina Mares 1.2.840.1 [id number] 1 [id number] Univers 10:30:00 16:44:47 62762.1.1 ity of 3.412.2.7 [place] .3.654419 MD Squires [facility] 2021-12-18 2021-12-18 Outpatient ROZINA MARES [facility] [id number] 09:42:04 09:45:52 [facility] 2021-12-18 2021-12-18 Rozina Hernandez 1.2.840.1 [id number] 10 [id number] Univers 00:00:00 00:00:00 Only 27725.1.1 ity of 3.412.2.7 [place] .3.293115 MD Squires [facility] 2021-12-18 2021-12-18 Travel 1.2.840.1 1.2.146.067 3887 [id number] Univers 00:00:00 00:00:00 50736.1.1 350.1.13.41 ity of 3.412.2.7 [place]7.3.698 [place] .3.656[place] 084.8 MD Squires [facility] 2021-12-18 2021-12-18 Rozina Hernandez 1.2.840.1 [id number] 10 [id number] Univers 00:00:00 00:00:00 Only 51251.1.1 ity of 3.412.2.7 [place] .3.621361 MD Squires [facility] 2021-12-18 2021-12-18 Travel 1.2.840.1 1.2.635.193 5693 [id number] Univers 00:00:00 00:00:00 66008.1.1 350.1.13.41 ity of 3.412.2.7 [place]7.3.698 [place] .3.478907 084.8 MD Squires [facility] 2021-12-16 2021-12-16 Hospital Rozina Mares 1.2.840.1 [id number] 1 [id number] Univers 13:30:00 23:59:00 Encounter Chandra Lucas 78014.1.1 ity of 3.412.2.7 [place] .3.737817 [facility] 2021-12-16 2021-12-16 Rozina Garcia 1.2.840.1 [id number] 1 [id number] Univers 13:30:00 23:59:00 Encounter Chandra Lucas 18430.1.1 ity of 3.412.2.7 [place] .3.417142 MD Squires [facility] 2021-12-16 2021-12-16 Outpatient MJ MORA, [facility] [id number] 14:30:36 14:38:20 SABAS atkins 2021-12-16 2021-12-16 [facility], 1.2.840.1 [id number] 1091 [id number] Univers 12:00:00 13:29:00 Encounter Sabas Hutton 68279.1.1 i ty of 3.412.2.7 [place] .3.613079 MD Squires [facility] 2021-12-16 2021-12-16 [facility], 1.2.840.1 [id number] 1091 [id number] Univers 12:00:00 13:29:00 Encounter Sabas Hutton 59729.1.1 i ty of 3.412.2.7 [place] .3.823288 MD Squires [facility] 2021-12-16 2021-12-16 Documentat Desire, 1.2.840.1 [id number] 10 [id number] Univers 00:00:00 00:00:00 ion Brenda Alvarado 44695.1.1 ity of 3.412.2.7 [place] .3.620224 MD Squires [facility] 2021-12-16 2021-12-16 Travel 1.2.840.1 1.2.168.668 2638 [id number] Univers 00:00:00 00:00:00 62610.1.1 350.1.13.41 ity of 3.412.2.7 [place]7.3.698 [place] .3.053711 084.8 MD Squires [facility] 2021-12-16 2021-12-16 Orders Ede 1.2.840.1 [id number] 10 [id number] Univers 00:00:00 00:00:00 Only Amira tavarez 22746.1.1 ity of 3.412.2.7 [place] .3.923680 MD Zuñiga8 [facility] 2021-12-16 2021-12-16 Orders Munroe-Marisol 1.2.840.1 [id number] 10 [id number] Univers 00:00:00 00:00:00 Only Amira tavarez 72352.1.1 ity of 3.412.2.7 [place] .3.002687 MD Zuñiga8 [facility] 2021-12-16 2021-12-16 Orders Murali, 1.2.840.1 [id number] Univers 00:00:00 00:00:00 Only Scott 32343.1.1 ity of 3.412.2.7 [place] .3.490275 MD Zuñiga8 [facility] 2021-12-16 2021-12-16 Documentat Desire, 1.2.840.1 [id number] 10 [id number] Univers 00:00:00 00:00:00 ion Brenda Alvarado 81226.1.1 ity of 3.412.2.7 [place] .3.161930 MD Zuñiga8 [facility] 2021-12-16 2021-12-16 Travel 1.2.840.1 1.2.498.527 8894 [id number] Univers 00:00:00 00:00:00 98679.1.1 350.1.13.41 ity of 3.412.2.7 [place].7.3.698 [place] .3.951494 084.8 MD Squires [facility] 2021-12-16 2021-12-16 Orders Munroe-Marisol 1.2.840.1 [id number] 10 [id number] Univers 00:00:00 00:00:00 Only Amira tavarez 50987.1.1 ity of 3.412.2.7 [place] .3.658551 MD Squires [facility] 2021-12-16 2021-12-16 Orders Munroe-Marisol 1.2.840.1 [id number] 10 [id number] Univers 00:00:00 00:00:00 Only Amira tavarez 61752.1.1 ity of 3.412.2.7 [place] .3.802641 MD Zuñiga8 [facility] 2021-12-16 2021-12-16 Orders Murali, 1.2.840.1 [id number] Univers 00:00:00 00:00:00 Only Scott 63340.1.1 ity of 3.412.2.7 [place] .3.293140 MD Zuñiga8 [facility] 2021-12-13 2021-12-13 Hospital Fausto Villalba 1.2.840.1 [id number] Univers 15:00:00 23:59:00 Encounter Veronica Mckeon 74581.1.1 ity of 3.412.2.7 [place] .3.129399 MD Squires [facility] 2021-12-13 2021-12-13 [facility] Fausto See 1.2.840.1 1020 [id number] [id number] Univers 15:00:00 23:59:00 Encounter Veronica Mckeon 22581.1.1 ity of 3.412.2.7 [place] .3.548436 MD Squires [facility] 2021-12-13 2021-12-13 Ancillary EL 1.2.840.1 [id number] 1091 [id number] Univers 11:30:00 11:45:00 Procedure 00103.1.1 it y of 3.412.2.7 [place] .3.736356 MD Squires [facility] 2021-12-13 2021-12-13 Ancillary 1.2.840.1 [id number] 1091 [id number] Univers 11:30:00 11:45:00 Procedure 31232.1.1 it y of 3.412.2.7 [place] .3.420338 MD Squires [facility] 2021-12-13 2021-12-13 Ancillary EL Ede 1.2.840.1 [id number] Univers 09:45:00 11:30:00 Procedure Amira tavarez 67365.1.1 ity of 3.412.2.7 [place] .3.929460 MD Squires [facility] 2021-12-13 2021-12-13 Ancillary Ede 1.2.840.1 [id number] [facility] 09:45:00 11:30:00 Procedure Amira tavarez 16263.1.1 ity of 3.412.2.7 [place] .3.729228 MD Squires [facility] 2021-12-13 2021-12-13 Travel 1.2.840.1 1.2.210.374 9082 [id number] Univers 00:00:00 00:00:00 26395.1.1 350.1.13.41 ity of 3.412.2.7 [place].2.7.3.698 [place] .3.603699 084.8 MD Squires [facility] 2021-12-13 2021-12-13 Travel 1.2.840.1 1.2.177.270 2608 [id number] Univers 00:00:00 00:00:00 28020.1.1 350.1.13.41 ity of 3.412.2.7 2.2.7.3.698 [place] .3.953357 084.Rubia Squires [facility] 2021-12-11 2021-12-11 Jaxson Mora, 1.2.840.1 [id number] [id number] Univers 00:00:00 00:00:00 Only Sabas Hutton 00147.1.1 ity of 3.412.2.7 [place] .3.019883 MD Squires [facility] 2021-12-11 2021-12-11 Orders Abby 1.2.840.1 [id number] Univers 00:00:00 00:00:00 Only Sabas Hutton 93100.1.1 ity of 3.412.2.7 [place] .3.019339 MD Zuñiga8 [facility] 2021-12-10 2021-12-10 Saskia Shanks 1.2.840.1 [id number] Univers 00:00:00 00:00:00 Tiana 99993.1.1 ity of 3.412.2.7 [place] .3.272161 MD Zuñiga8 [facility] 2021-12-10 2021-12-10 Telephone Shanks, 1.2.840.1 [id number] Univers 00:00:00 00:00:00 Tiana 24819.1.1 ity of 3.412.2.7 [place] .3.004319 MD Zuñiga8 [facility] 2021-12-06 2021-12-06 Hospital [facility] 1.2.840.1 [id number] 1 [id number] Univers 11:05:00 23:59:00 Encounter Amira tavarez 67158.1.1 ity of 3.412.2.7 [place] .3.716552 MD Zuñiga8 [facility] 2021-12-06 2021-12-06 [facility] 1.2.840.1 [id number] 1 [id number] Univers 11:05:00 23:59:00 Encounter Amira tavarez 98268.1.1 ity of 3.412.2.7 [place] .3.551902 MD Zuñiga8 [facility] 2021-12-06 2021-12-06 Office EL Chrystal-eme 1.2.840.1 [id number] 10 [id number] Univers 14:00:00 16:01:44 Visit , Nuzhat 36797.1.1 ity of 3.412.2.7 [place] .3.576347 MD Zuñiga8 [facility] 2021-12-06 2021-12-06 Office Chrystal-Iheme 1.2.840.1 [id number] 10 [id number] Univers 14:00:00 16:01:44 Visit , Nuzhat 38111.1.1 ity of 3.412.2.7 [place] .3.986820 MD Zuñiga8 [facility] 2021-12-06 2021-12-06 Ancillary [facility] 1.2.840.1 [id number] Univers 10:30:00 11:00:00 Procedure shay, Amira 41755.1.1 ity of 3.412.2.7 [place] .3.550856 MD Zuñiga8 [facility] 2021-12-06 2021-12-06 Ancillary Munroe-Marisol 1.2.840.1 [id number] Univers 10:30:00 11:00:00 Procedure shay Amira 18343.1.1 ity of 3.412.2.7 [place] .3.420669 MD Zuñiga8 [facility] 2021-12-06 2021-12-06 Ancillary EL Munroe-Marisol 1.2.840.1 [id number] Univers 08:00:00 08:30:00 Procedure shay, Amira 49756.1.1 ity of 3.412.2.7 [place] .3.379050 MD Zuñiga8 [facility] 2021-12-06 2021-12-06 Ancillary Munroe-Marisol 1.2.840.1 [id number] Univers 08:00:00 08:30:00 Procedure shay, Amira 24598.1.1 ity of 3.412.2.7 [place] .3.574477 MD Zuñiga8 [facility] 2021-12-06 2021-12-06 Orders Chrystal-Iheme 1.2.840.1 [id number] 10 [id number] Univers 00:00:00 00:00:00 Only , Nuzhat 20404.1.1 ity of 3.412.2.7 [place] .3.303315 MD Zuñiga8 [facility] 2021-12-06 2021-12-06 Orders Munroe-Marisol 1.2.840.1 [id number] 10 [id number] Univers 00:00:00 00:00:00 Only shay Amira 11915.1.1 ity of 3.412.2.7 [place] .3.449170 MD Zuñiga8 [facility] 2021-12-06 2021-12-06 Travel 1.2.840.1 1.2.727.380 3253 [id number] Univers 00:00:00 00:00:00 61143.1.1 350.1.13.41 ity of 3.412.2.7 2.[place]7.3.698 [place] .3.429044 084.8 MD Squires [facility] 2021-12-06 2021-12-06 Orders Chrystal-Iheme 1.2.840.1 [id number] 10 [id number] Univers 00:00:00 00:00:00 Only , Nuzhat 96952.1.1 ity of 3.412.2.7 [place] .3.565468 MD Squires [facility] 2021-12-06 2021-12-06 Orders Munroe-Marisol 1.2.840.1 [id number] 10 [id number] Univers 00:00:00 00:00:00 Only Amira tavarez 76762.1.1 ity of 3.412.2.7 [place] .3.227559 MD Squires [facility] 2021-12-06 2021-12-06 Travel 1.2.840.1 1.2.713.455 6831 [id number] Univers 00:00:00 00:00:00 39068.1.1 350.1.13.41 ity of 3.412.2.7 2.2[place]7.3.698 [place] .3.655968 084.8 MD Squires [facility] 2021-12-04 2021-12-04 Orders Munroe-Marisol 1.2.840.1 [id number] 10 [id number] Univers 00:00:00 00:00:00 Only Sunshine tavarezsy 95907.1.1 ity of 3.412.2.7 [place] .3.789392 MD Squires [facility] 2021-12-04 2021-12-04 Orders Munroe-Marisol 1.2.840.1 [id number] 10 [id number] Univers 00:00:00 00:00:00 Only Sunshine tavarezsy 94021.1.1 ity of 3.412.2.7 [place] .3.557685 MD Zuñiga8 [facility] 2021-11-26 2021-11-26 Orders Munroe-Marisol 1.2.840.1 [id number] 10 [id number] Univers 00:00:00 00:00:00 Only shay, Amira 27106.1.1 ity of 3.412.2.7 [place] .3.528622 MD Zuñiga8 [facility] 2021-11-26 2021-11-26 Telephone Refinetti, 1.2.840.1 [id number] 1 [id number] Univers 00:00:00 00:00:00 Kyra 45755.1.1 it y of Brock 3.412.2.7 [place] .3.280701 MD Zuñiga8 [facility] 2021-11-26 2021-11-26 Orders Munroe-Amrisol 1.2.840.1 [id number] 10 [id number] Univers 00:00:00 00:00:00 Only shay, Amira 08777.1.1 ity of 3.412.2.7 [place] .3.787512 MD Zuñiga8 [facility] 2021-11-26 2021-11-26 Orders Munroe-Marisol 1.2.840.1 [id number] 10 [id number] Univers 00:00:00 00:00:00 Only shay, Amira 28814.1.1 ity of 3.412.2.7 [place] .3.364640 MD Zuñiga8 [facility] 2021-11-26 2021-11-26 Telephone Refinetti, 1.2.840.1 [id number] 1 [id number] Univers 00:00:00 00:00:00 Kyra 32920.1.1 it y of Brock 3.412.2.7 [place] .3.537965 MD Zuñiga8 [facility] 2021-11-26 2021-11-26 Orders Munroe-Marisol 1.2.840.1 [id number] 10 [id number] Univers 00:00:00 00:00:00 Only shay, Amira 76667.1.1 ity of 3.412.2.7 [place] .3.080425 MD Zuñiga8 [facility] 2021-11-22 2021-11-22 Office EL Pankaj, 1.2.840.1 [id number] [id number] Univers 10:00:00 12:10:29 Visit Porter Guerrero 31298.1.1 it y of [place] 3.412.2.7 [place] .3.411051 .8 [facility] 2021-11-22 2021-11-22 Office Pankaj, 1.2.840.1 [id number] Univers 10:00:00 12:10:29 Visit Porter Guerrero 02430.1.1 it y of Brock 3.412.2.7 [place] .3.198383 MD Zuñiga8 [facility] 2021-11-22 2021-11-22 Travel 1.2.840.1 1.2.022.280 1795 [id number] Univers 00:00:00 00:00:00 68053.1.1 350.1.13.41 ity of 3.412.2.7 2.2[place]7.3.698 [place] .3.778944 084.8 MD Zuñiga8 [facility] 2021-11-22 2021-11-22 Travel 1.2.840.1 1.2.179.717 2490 [id number] Univers 00:00:00 00:00:00 67559.1.1 350.1.13.41 ity of 3.412.2.7 2.2[place]7.3.698 [place] .3.032407 084.8 MD Zuñiga8 [facility] 2021-11-20 2021-11-20 Ancillary MJ See, 1.2.840.1 [id number] Univers 20:05:00 20:10:00 Procedure Fausto Veras 60297.1.1 ity of 3.412.2.7 [place] .3.064984 MD Zuñiga8 [facility] 2021-11-20 2021-11-20 Ancillary Opal 1.2.840.1 [id number] 050 [id number] Univers 20:05:00 20:10:00 Procedure Fausto Veras 41493.1.1 ity of 3.412.2.7 [place] .3.629378 MD Zuñiga8 [facility] 2021-11-20 2021-11-20 Ancillary MJ See, 1.2.840.1 [id number] [id number] Univers 20:00:00 20:05:00 Procedure Fausto Veras 72186.1.1 ity of 3.412.2.7 [place] .3.301267 MD Zuñiga8 [facility] 2021-11-20 2021-11-20 Ancillary Opal, 1.2.840.1 [id number] [id number] Univers 20:00:00 20:05:00 Procedure Fausto Veras 29024.1.1 ity of 3.412.2.7 [place] .3.237365 MD Zuñiga8 [facility] 2021-11-20 2021-11-20 Ancillary MJ 1.2.840.1 [id number] [id number] Univers 17:35:00 17:50:00 Procedure 67372.1.1 it y of 3.412.2.7 [place] .3.764858 MD Zuñiga8 [facility] 2021-11-20 2021-11-20 Ancillary 1.2.840.1 [id number] 1090 [id number] Univers 17:35:00 17:50:00 Procedure 07959.1.1 it y of 3.412.2.7 [place] .3.377466 MD Zuñiga8 [facility] 2021-11-20 2021-11-20 Ancillary MJ Murry 1.2.840.1 [id number] [id number] Univers 16:15:00 17:15:00 Procedure Elliott 10156.1.1 it y of 3.412.2.7 [place] .3.076486 MD Zuñiga8 [facility] 2021-11-20 2021-11-20 Ancillary Jeanmarie 1.2.840.1 [id number] 1090 [id number] Univers 16:15:00 17:15:00 Procedure Elliott 30674.1.1 it y of 3.412.2.7 [place] .3.597091 MD Squires [facility] 2021-11-20 2021-11-20 Ancillary MJ Murry, 1.2.840.1 [id number] 1090 [id number] Univers 13:30:00 15:00:00 Procedure Elliott 85521.1.1 it y of 3.412.2.7 [place] .3.708150 MD Zuñiga8 [facility] 2021-11-20 2021-11-20 Ancillary Jeanmarie, 1.2.840.1 [id number] 1090 [id number] Univers 13:30:00 15:00:00 Procedure Elliott 82758.1.1 it y of 3.412.2.7 [place] .3.236920 MD Zuñiga8 [facility] 2021-11-20 2021-11-20 Travel 1.2.840.1 1.2.782.216 0987 [id number] Univers 00:00:00 00:00:00 05808.1.1 350.1.13.41 ity of 3.412.2.7 2.2[place]7.3.698 [place] .3.255253 084.8 MD Squires [facility] 2021-11-20 2021-11-20 Travel 1.2.840.1 1.2.391.339 7151 [id number] Univers 00:00:00 00:00:00 62302.1.1 350.1.13.41 ity of 3.412.2.7 2.2[place]7.3.698 [place] .3.222174 084.8 MD Squires [facility] 2021-11-14 2021-11-14 Jaxson Murry, 1.2.840.1 [id number] Univers 00:00:00 00:00:00 Only Elliott 52498.1.1 ity of 3.412.2.7 [place] .3.303686 MD Squires [facility] 2021-11-14 2021-11-14 Jaxson Murry, 1.2.840.1 [id number] Univers 00:00:00 00:00:00 Only Elliott 34028.1.1 ity of 3.412.2.7 [place] .3.350357 MD Zuñiga8 [facility] 2021-04-29 2021-04-29 Office MJ ChristalDemetrio souza 1.2.840.1 [id number] [facility] 11:30:00 12:00:00 Visit Elliott Murry 51187.1.1 ity of 3.412.2.7 [place] .3.263652 MD Zuñiga8 [facility] 2021-04-29 2021-04-29 Travel 1.2.840.1 1.2.675.774 9060 [id number] Univers 00:00:00 00:00:00 68799.1.1 350.1.13.41 ity of 3.412.2.7 2.2.7.3.698 [place] .3.104820 084.8 MD Zuñiga8 [facility] 2021-04-29 2021-04-29 Telephone Rachel 1.2.840.1 [id number] [facility] 00:00:00 00:00:00 Veronica Justice 93324.1.1 it y of 3.412.2.7 [place] .3.451155 MD Zuñiga8 [facility] 2021-04-22 2021-04-22 Outpatient MJ GOOD MDA MDA [id number] 00:00:00 00:00:00 DEMETRIO atkins 2020-04-16 2020-04-16 Outpatient MJ SEE MDA MDA [id number] 11:39:48 12:59:07 FAUSTO atkins 2020-04-13 2020-04-13 Outpatient MJ SEE MDA MDA [id number] 00:00:00 00:00:00 FAUSTO atkins 2020-04-06 2020-04-06 Outpatient MJ SEE MDA MDA [id number] 00:00:00 00:00:00 FAUSTO atkins Results Test Description Test Time Test Comments Results Result Comments Source POC Creatinine 2022-06-23 16:44:36 Test Item Value Reference Range Interpretation Comme nts POC Crea (test code = 0.6 mg/dL 0.6-1.3 [facility] 93727-5) hydroxyurea or supplements, such as ascorba te, can interfere with test results causing a false ly and significantly h igher result than expected. If a problem is suspected with a patient's result, a sampl e should be sent to the lab oratory for confirmatory te sting. Method description: Th e i-STAT is an analyzer used f or in vitro quantification of various analytes in who le blood. The device uses a s shawn disposable cart ridge which contains microf abricated sensors, a yolis bration solution, fluid ics system, and a waste chamber . Each test cartridge conta ins chemically sensitive biose nsors on a silicon chip th at are configured to p erform specific tests. The micr ofabricated sensors measure analyte concentration b y an electrochemical assay. POC EGFR (test code = 90 See_Comment The e[place] FRcr [place] [address]) the 2020 CKD-EP I creatinine equation using creatinine, patient's age, and sex for adults 18 years of age and older. Other fa ctors, especially musc le mass, may affect accuracy and need to be considered.Acco rding to the Kidney Disease: Improving Global Outcomes (KDIGO) CKD Work Group 2012 Clinical Practice Guidel ine, chronic kidney disease (CKD) is defined as the abnormalities of kidney struc ture or function, prese nt for more than 3 months, with implications fo r health. CKD should be class ified by cause, GFR category, a nd albuminuria category. KDIGO guidelines provide the fol lowing GFR categoriesStage Description GFR mL/min/1.73 m2G1* Normal or high >= 90G2 * Mildly decreased 60-89 G3a Mildly to moderately decr eased 45-59G3b Moderately to s everely decreased 30-44 G4 Severely decreased 15-29 G5 Kidney failure <15*In the absence of evidence of kid osmin damage, neither G1 nor G2 fulfill criteria for CK D. [Automated message] The sy stem which generated this result transmitted ref erence range: >=60 mL/min/1.7 3 sq. m. The reference range was not used to interpret th is result as normal/abnormal . POC Clean Dev (test code Yes = 6672) Performing Lab (test code [facility] = 42216) [facility] ,[address], [place] [address], [employer] Front Desk Attendant: Jeri Soto MD [facility] Complete [id number] 15:29:58 Test Item Value Reference Range Interpretation Comments Radiology Study observation (narrative) (test code = 09690-6) IMP (test code = IMP) Interval treatment response, as above. BI-RADS Category 6:Known Biopsy Proven Malignancy These results and recommendations were personally discussed with the patient atthe time of the examination. PXN (test code = PXN) Eduar Nguyen MD - 04/11/2022 CLINICAL INDICATION:Patient is a 81 year old female and is seen for breast cancer FILMS COMPAREDThe present examination has been compared to a prior imaging study performed [facility] on 11/20/2021. Images were obtained in multiple scanning planes. Real-time sonographic imaging of the right breast (including all 4 quadrants andretroareolar region) was performed. Real-time sonographic imaging of the rightregional suyapa basins including ultrasound of the chest/mediastinum to evaluatethe axillary (level I,II,III) and internal mammary regions was performed. The 2 malignant masses with associated biopsy clips are slightly decreased insize. 1. Mass at 10:00, 7 cm from the nipple, measures 0.9 x 0.7 x 1.1 cm (previously1.8 x 1 x 1.3 cm). 2. Mass at 11:00, 1 cm from the nipple, measures 2.1 x 0.6 x 3 cm (previously 3x 0.8 x 2.8 cm). Small hypoechoic area at 9:00, 4 cm from the nipple is consistent with benignbiopsy-proven papillary lesion without atypia. Right Regional Suy[place] Basins: The previously biopsy-proven metastatic level Iaxillary lymph node with a biopsy clip is decreased in size with improvedcortical thickening, now measuring 1.2 x 0.5 x 1.4 cm. There is a secondprominent lymph node with mild cortical prominence at level I, nonspecific. The biopsy-proven level III lymph node is also decreased in size, now measuring1.8 x 0.4 x 0.3 cm (previously 1.7 x 0.6 x 0.5 cm). The second abnormal levelIII lymph node is similar in size, but improved in morphology with now visiblefatty hilum. There is no abnormal lymph node at axillary level II and internal mammaryregions. IMPRESSION:Interval treatment response, as above. BI-RADS Category 6:Known Biopsy Proven Malignancy These results and recommendations were personally discussed with the patient atthe time of the examination. Lab Interpretation Abnormal (test code = 28271-7) [facility]/Infraclav for Breast Ultrasound (Add-on Only)2022-04-11 15:29:58 Test Item Value Reference Range Interpretation Comments Radiology Study observation (narrative) (test code = 55306-6) IMP (test code = IMP) Interval treatment response, as above. BI-RADS Category 6:Known Biopsy Proven Malignancy These results and recommendations were personally discussed with the patient atthe time of the examination. PXN (test code = PXN) Eduar Nguyen MD - 04/11/2022 CLINICAL INDICATION:Patient is a 81 year old female and is seen for breast cancer FILMS COMPAREDThe present examination has been compared to a prior imaging study performed [facility] on 11/20/[facility]21. Images were obtained in multiple scanning planes. Real-time sonographic imaging of the right breast (including all 4 quadrants andretroareolar region) was performed. Real-time sonographic imaging of the rightregional suyapa basins including ultrasound of the chest/mediastinum to evaluatethe axillary (level I,II,III) and internal mammary regions was performed. The 2 malignant masses with associated biopsy clips are slightly decreased insize. 1. Mass at 10:00, 7 cm from the nipple, measures 0.9 x 0.7 x 1.1 cm (previously1.8 x 1 x 1.3 cm). 2. Mass at 11:00, 1 cm from the nipple, measures 2.1 x 0.6 x 3 cm (previously 3x 0.8 x 2.8 cm). Small hypoechoic area at 9:00, 4 cm from the nipple is consistent with benignbiopsy-proven papillary lesion without atypia. Right Regional Suyapa Basins: The previously biopsy-proven metastatic level Iaxillary lymph node with a biopsy clip is decreased in size with improvedcortical thickening, now measuring 1.2 x 0.5 x 1.4 cm. There is a secondprominent lymph node with mild cortical prominence at level I, nonspecific. The biopsy-proven level III lymph node is also decreased in size, now measuring1.8 x 0.4 x 0.3 cm (previously 1.7 x 0.6 x 0.5 cm). The second abnormal levelIII lymph node is similar in size, but improved in morphology with now visiblefatty hilum. There is no abnormal lymph node at axillary level II and internal mammaryregions. IMPRESSION:Interval treatment response, as above. BI-RADS Category 6:Known Biopsy Proven Malignancy These results and recommendations were personally discussed with the patient atthe time of the examination. Lab Interpretation Abnormal (test code = 07522-4) [facility] Interpretation Antibody Screen [id number] 03:16:57 Test Item Value Reference Range Interpretation Comments TMP Auto Neg At the present ABSC Interp time, patient (test code = plasma shows no ____MD Jerald BERRY 4435) evidence of RBC [id number] d by: alloantibodies. MD Jerald SANDS [id number] D ate/Time: 12.16.2021 22:1 6 PM CDT Transcribed Ronni e/Time: 12.16.2021 22:1 6 PM CDTElectronical ly Signed By: MD Jerald MATUTE [id number] on 2021 22:16 PM [facility] Interpretation Antibody Screen [id number] 03:16:57 Test Item Value Reference Range Interpretation Comments TMP Auto Neg At the present ABSC Interp time, patient (test code = plasma shows no ____MD Jerald BERRY 7535) evidence of RBC [id number] d by: alloantibodies. GENIE TAO MD - [id number] D ate/Time: 12.16.2021 22:1 6 PM CDT Transcribed Ronni e/Time: 12.16.2021 22:1 6 PM CDTElectronical ly Signed By: GENIE WILSON MD - [id number] on 2021 22:16 PM [facility] DallasConfirm [id number] 23:01:19 Test Item Value Reference Range Interpretation Comments ABORh Confirm. (test code = 882-1) O NEG [facility] DallasConfirm [id number] 23:01:19 Test Item Value Reference Range Interpretation Comments ABORh Confirm. (test code = 882-1) O NEG [facility] DallasAntibody [id number] 22:32:35 Test Item Value Reference Range Interpretation Comments ABSC. (test code = 890-4) Negative ABSC [facility] DallasAntibody [id number] 22:32:35 Test Item Value Reference Range Interpretation Comments ABSC. (test code = 890-4) Negative ABSC [facility] DallasABORh2022-04-04 22:32:34 Test Item Value Reference Range Interpretation Comments ABORh. (test code = 882-1) O NEG [facility] DallasABORh2022-04-04 22:32:34 Test Item Value Reference Range Interpretation Comments ABORh. (test code = 882-1) O NEG [facility] DallasClot Expiration [id number] 22:32:32 Test Item Value Reference Range Interpretation Comments T & S Expiration (test code = 12/19/2021 5318) [facility] DallasClot Expiration [id number] 22:32:32 Test Item Value Reference Range Interpretation Comments T & S Expiration (test code = 12/19/2021 5318) [facility] DallasProthrombin [id number] 18:13:24 Test Item Value Reference Range Interpretation Comments PT (test code 12.5 See_Comment Testing Perfor med = 5902-2) atACB Lab Ambul at[facility] Doyb[address] [facility] [address] [Automated mess age] The system [employer] [place] generated this result transmitted ref erence range: 11.5 - 1 3.9 second(s). The reference range was not used to int erpret this result as normal/abnormal . INR (test code 1.00 0.90-1.10 Testing Perfo rmed = 6301-6) atA Lab Ambul [facility] [facility], [address] [address] NORMAN (test code This lab cannot be = NORMAN) scheduled at the following locations due to collection/proccess ing restrictions: [facility] and [facility]. [facility] DallasProthrombin [id number] 18:13:24 Test Item Value Reference Range Interpretation Comments PT (test code 12.5 See_Comment Testing Perfor med = 5902-2) [facility] Lab Ambul [facility] [facility], [address] [address] [Automated mess age] The system [employer] [place] generated this result transmitted ref erence range: 11.5 - 1 3.9 second(s). The reference range was not used to int erpret this result as normal/abnormal . INR (test code 1.00 0.90-1.10 Testing Perfo rmed = 6301-6) [facility] Lab Ambul [facility] [facility], [address] [address] NORMAN (test code This lab cannot be = NORMAN) scheduled at the following locations due to collection/proccess ing restrictions: [facility] and [facility]. [facility] DallasGlucose, [id number] 18:11:23 Test Item Value Reference Range Interpretation Comments Glucose Random (test 189 mg/dL 70-199 Effecti ve 04/09/16, the code = 2345-7) glucose refer ence intervals have been updated based o n [employer] ramona delines (Standards of [...] risk for diabetes Testin g Performed at [facility] Lab Director Inbound Sales [facility], [address], [place] [address] [facility] DallasGlucose, [id number] 18:11:23 Test Item Value Reference Range Interpretation Comments Glucose Random (test 189 mg/dL 70-199 Effecti ve 04/09/16, the code = 2345-7) glucose refer ence intervals have been updated based o n [employer] ramona delines (Standards of [...] risk for diabetes Testin g Performed at [facility] Lab Director Inbound Sales [facility], [address], [place] [address] [facility] DallasGlomerular Filtration Rate 2021-12-16 18:11:22 Test Item Value Reference Range Interpretation Comments eGFR-AA (test code = 63 See_Comment Normal eGFR >= 60 13377-7) mL/min/1.73 m2 Note: The eGFR is zenaida culated using the CKD-E PI equation. The e GFR declines with a ge. eGFR <60 mL/min /1.73 m2 is considere d as "decreased". Th is equation should only be used for pat ients 18 and older. According to th e National Kidney Foundation's Ki jigneshey Disease Outcome Quality Initiat domitila (KDOQI) classif ication and 2012 Kidney Disease Improvi ng Global Outcomes (KDIGO) Clinica l Practice Guidel ine, the stage of CK D should be categ orized based on estima anny GFR. Stage Desc ription GFR mL/min/1.7 3 m21 Normal or high GFR >=902 Mildly de creased GFR 60-893a Mil dly to moderately decr eased GFR 45-593b Mod erately to severely dec reased GFR 30-444 Carmen rely decreased GFR 1 5-295 Kidney failure <15 Testing Perform ed at [facility] Lab Ambulat [facility], [address] [facility], [address], [place] [address] [Automated mess age] The system [employer] [place] [place] generated this result transmitted ref erence range: >=60 mL/min/1.73 sq. m. The reference range was not used to int erpret this result as normal/abnormal . eGFR-DORCAS (test code = 54 See_Comment L Normal eGFR >= 60 92553-1) mL/min/1.73 m2 Note: The eGFR is zenaida [...] estima anny GFR. Stage Desc ription GFR mL/min/1.73 m21 Normal or high GFR >=902 Mildly de creased GFR 60-893a Mil dly to moderately decr eased GFR 45-593b Mod erately to severely dec reased GFR 30-444 Carmen rely decreased GFR 1 5-295 Kidney failure <15 Testing Perform ed at [facility], [address] [facility], [address], [place] [address] [Automated mess age] The system [employer] [place] generated this result transmitted ref erence range: >=60 mL/min/1.73 sq. m. The reference range was not used to int erpret this result as normal/abnormal . Lab Interpretation Abnormal (test code = 51030-0) [facility] Diox[facility] [id number] 18:11:21 Test Item Value Reference Range Interpretation Comments CO2 (test code = 27 See_Comment Testing Per formed at [facility] 2028-05) Lab Director Inbound Sales [facility], [address], [place] [address] [Automated mess age] The system which ge nerated this result transmit anny reference range : 22 - 29 mEq/L. The refe rence range was not used to interpret this result as normal/abnormal . [facility] DallasCarbon Dioxide [id number] 18:11:21 Test Item Value Reference Range Interpretation Comments CO2 (test code = 27 See_Comment Testing Per formed at [facility] 2028-05) Lab Director Inbound Sales [facility], [address], [place] [address] [Automated mess age] The system which ge nerated this result transmit anny reference range : 22 - 29 mEq/L. The refe rence range was not used to interpret this result as normal/abnormal . [facility].Serum [id number] 18:11:20 Test Item Value Reference Range Interpretation Comments Creatinine (test code = 0.98 mg/dL 0.51-0.95 H Test ing Performed 2160-0) at [facility] Lab Director Inbound Sales [facility], [address], [place], [place] [address] Lab Interpretation (test Abnormal code = 48833-3) [facility] DallasBUN2022-04-04 18:11:19 Test Item Value Reference Range Interpretation Comments BUN (test code = 7 mg/dL 6-23 Testing Per formed at [facility] 3094-0) Lab Director Inbound Sales [facility], [address], [place] [address] [facility] DallasAnion [id number] 18:11:13 Test Item Value Reference Range Interpretation Comments Anion Gap (test code 10 See_Comment Testing Performed at [facility] = 85920-5) Lab Director Inbound Sales [facility], [address], [place] [address] [Automated mess age] The system which ge nerated this result transmit anny reference range : 4 - 14 mEq/L. The refe rence range was not used to interpret this result as normal/abnormal . [facility] DallasAnion [id number] 18:11:13 Test Item Value Reference Range Interpretation Comments Anion Gap (test code 10 See_Comment Testing Performed at [facility] = 86576-8) Lab Director Inbound Sales [facility], [address], [place] [address] [Automated mess age] The system which ge nerated this result transmit anny reference range : 4 - 14 mEq/L. The refe rence range was not used to interpret this result as normal/abnormal . [facility] DallasChloride [id number] 18:11:12 Test Item Value Reference Range Interpretation Comments Chloride (test code = 107 See_Comment Testin g Performed at [facility] 2074-0) Lab Director Inbound Sales [facility], [address], [place] [address] [Automated mess age] The system which ge nerated this result tra nsmitted reference range : 98 - 107 mEq/L. The refe rence range was not u sed to interpret this result as normal/abnormal . [facility] DallasChloride [id number] 18:11:12 Test Item Value Reference Range Interpretation Comments Chloride (test code = 107 See_Comment Testin g Performed at [facility] 2074-0) Lab Director Inbound Sales [facility], [address], [place] [address] [Automated mess age] The system which ge nerated this result tra nsmitted reference range : 98 - 107 mEq/L. The refe rence range was not u sed to interpret this result as normal/abnormal . [facility] DallasPotassium2022-04-04 18:11:11 Test Item Value Reference Range Interpretation Comments Potassium Lvl (test 4.1 See_Comment Testing Performed at [facility] code = 2823-3) [facility], [address], [place] [address] [Automated mess age] The system which ge nerated this result tra nsmitted reference range : 3.5 - 5.1 mEq/L. The reference range was not u sed to interpret this result as normal/abnormal . [facility] DallasPotassium2022-04-04 18:11:11 Test Item Value Reference Range Interpretation Comments Potassium Lvl (test 4.1 See_Comment Testing Performed at [facility] code = 2823-3) [facility], [address], [place] [address] [Automated mess age] The system which ge nerated this result tra nsmitted reference range : 3.5 - 5.1 mEq/L. The reference range was not u sed to interpret this result as normal/abnormal . [facility] [id number] 18:11:10 Test Item Value Reference Range Interpretation Comments Sodium Lvl (test code 144 See_Comment Testin g Performed at B = 2951-2) Lab Director Inbound Sales Bld[facility], [address], [place] [address] [Automated mess age] The system which ge nerated this result tra nsmitted reference range : 136 - 145 mEq/L. The refe rence range was not used to interpret this result as normal/abnormal . [facility] [id number] 18:11:10 Test Item Value Reference Range Interpretation Comments Sodium Lvl (test code 144 See_Comment Testin g Performed at B = 2951-2) Lab Director Inbound Sales Bldg, [address], [place] [address] [Automated mess age] The system which ge nerated this result tra nsmitted reference range : 136 - 145 mEq/L. The refe rence range was not used to interpret this result as normal/abnormal . [facility] DallasCytology Image-Guided FNA [id number] 21:37:45 Test Item Value Reference Range Interpretation Comments Gross Description (test t6nhoFRgYDEcpIPLHMn code = [id number]) wMVxhbnNpXHNwbHRwZ3 RpnskvTJzdMM4xXX5aa HsevGRchVJbKR2VUQBt ZmYxXHBhcGVydzEyMjQ tRADpuXFnmBF9RZBuVN 1hcmdsMTgwMFxtYXJnc pA4ZGQukUKqY9KbOLOc SV8kmrfqFPJ6UWlgaG3 nihJYSgngFa7vvVHdaS tcZjFcZmNoYXJzZXQwX MUhoRdgCXVeVYq3gT7J EmhcC66yf6T3Che0NUJ pKIEfG1LsPJ2fRANoxJ BsC84CYisxVTB9UBGAL hryXVFhNI5Bj8beKBYo bMLrZYP7JLhxuWIzSEO jXFKkJPv7UEOhBIhrlY YzTG9uxSqbIttavGuwa 2VjdCBcXGlkIDUxMDAy OUbcHLJrID5FZlPrMCG bJYS6ZJHwZTi5QXh8ZN 5CLqReHHBpPUE0CZHaE iExWLc6FUrsNL7DRZOq FSC2EER2FhktBSZlUkI fJVe4NKBkLNvdCCKomJ FsIFxcZnMgMTAgXFxmY wXaIHUdWWshmjL0EYHb YWluXGJcZnMyMCBBOlx cMOFsJWnmgFkagX0vCK NdU67xv9VSj0VxVG2NG Gm7ppOxmhbnmR5cPEVi jtTqSMjdnKLzP9rsD9J zCAEhCmNuE3MtZ6keBS 5zSQTrv5Y5hyGnKhzyU XIgDQoyIERpZmYgUXVp dxagQYCGNMRpW6VwsT1 xS3ukUOZuHEHkawPDNj QiEC5tBQZgcWWvfFEmg HmwOmthbGX0VMkgTxku dI8dxFXPBGAOTetUCtl ahiAuQO2RBIRKEpCHOT 96EvX2CuH3GAhwhJpjT rcpceZntASeNwKBgJ4f bGVhciBccHJvdGVjdDB 5PGKzBObdd3naCPEsGL rlu5DtBHjPGHDGBY8XY M1tuXS6E9wWBWAIZ6bQ iJH7a2whxLOqd6h2FYh wNCD5yKTeJGezWzkmtN S2CAshNahcrC3jmWVXI OBHOlhSHmjhwqErGD5E IOpCPD6MhUY8g4useMN aa7p1XUmcNBZ4mKgakB JfwjtuiNWmtEkbfh49P YD5RRJeETtsquAmDGWz pGHyXPwwOqakyGF7XNn mZziwkV6ngTMDVZIPVi uOLcplwiEsFF0WCPARS L2NyDF3CdXlcFE6OQ32 NFJfGDJsvQUjRHrgB39 7KWKfMRacZWt7gjCeDY NmMVxmczIwICBpbiBSU Z5XQQZlvhVDUgRbG0h0 p9OozF7swPCfNZ2FTLV cmkCPZiQtnxP7VBRmPA LizMotBBSiHBlKuR7fI GlhdGUgYXNzZXNzbWVu cOQed4Lip1YmN3hgYL7 qDHMknPVsG4dsc7CcIM 7nMBEiNVNbn3SfJ6N4W EXzCCdef0aiIVSbVFvv g7OeQPeIXJNDWY3RBT6 dwAN0IZnMWYAOZ9eNcH Y8LwE3iOB9B515ZOXuP QLtrEEcQBesT327vTC3 HRVkJFnxf8vlCHIcOEj tk4JgZYyMFWEVSO2WSF 8bsLS4VRuYHCXSQMyyR Tw1MMwqePB2e8mthLPk o2k7PYngHZG7hPtvkRW pblxsdHJjaFxjZjFcZn MyMCAgYnkgRHIuIFlvb 24uDQpcdiBTTUFSVExJ Z2ZbYCWHYTUXMEIbUzU IMQ7fEiT8FsZ6OG3eSs wlMlF9TeP9mPW2NZAPN EOIMMqDZ7JiOSZBXHXZ GHXlRP4RSOcPGOMDZCG QE07GLVAHUDMLK1CXI3 pHDCTli1BiDTrKRDKXQ UZIV16IWTUCYCILB9JD RCBQTEFDRUhPTERFUl9 GWADYEGFMXB7XWHeBWn ChBQqefEKdODldPAM9E Hc6S5b7yBLtj9GdhQQ4 BdH3PnWosWYDBHNAVAy AHWOYPd8PXKFBPDTEEB 2GExPkC1KMPT7NWl1LZ PELGKZOTD6ZMEyYRtZi G1KTQG3UCv2LNXQOCBU ZEO7GNnNhXDXRY9WSSo MYT8heIXZLZRZZNQDxK dHQKQ6cGDOSPV6YILTQ EKLTK96CDWUXIPTYF9V IJJ0RGETkyOKXWKP4YB 3xERr6CBqdLCPmE3KtK 3RlbmRccGFyXHBhcmRc j8osVVK0XLVkhYYjzYS gArSoVrddPUW7DDOlJQ xpBT3UYHPsTQJ1IVikz U14sKNfFG9IWROrICns SZFeWSLtpdI9BDCxhPP iUNM5DO1hjXmlcTXwud ivbbV9ZW2ZtB== Immediate Assessment (test Adequate code = 9837) cellularity, favor benign Major Classification (test NFMC/benign code = 9839) Diagnosis (test code = 34) s8rsnUPiIBCqiWM5XaF fFGLgt9efm3TxdBFmdS ImPIhkuSWhqqLntg26m UA5aX95IA1jYQJwUdE2 TLLxdgQ6Rkh1BFIdVYE lrZPaU426w4cfl9yoan MjaMI0LVYoAMSgT2EwV W8rHDMogOXtO07qkXUi IHF4KKXhYDUscDBoLKR oNQO6PLAwkPPjK5xyZS JjPK1smqieNQkgKNtpY JUmrZS3CLOrjYLbV8Hj GWQhJXlfXCAwocj3YqK pEg8xxALrzAmsTGzeV8 uxaF5tYuW3QFbaN5zxy D8oEVi4SKoyVCWqhCB8 uqN9YBFfcGDdR1FewI3 mBPXpND2jxoo1f6qrVS F7ORznGIRhOcI6daS3G DBccGFyZFxwbGFpblxm czIwXGNmMSBBLiBCcmV ng8MpMOHwZ4f2FUOacR 1oHJ7vMBKcIOLfi4KmO SEpO5j0ZRGsUQBtxGSs FUEgDVS2GSBlXQSnOb4 8AFElqay1XQUpqAUiVB xpNzIwXGxpbjcyMFxjZ bEwEj1imCXwwGznTE26 OLUsvGekOIhjWB85iYP pZWRccGFyIEJlbmlnbi CjdKR1ZSnlEBKgxXmql Fz4cNU6uPRwQOVhj3Xy mA5rCA2zwERvjVInlEW smW9rRCNvARUcJ2BstB 9bTW1qDGJ8b0NoThSlI CCanDCuKC2lJFHzZSJ6 JVTaGVYhNZFnf3PjYUu urrIwr98xsIC6TE89UB jckMjxGmzimt1kmTZ4c OUcT5jczgmhBTEyasnq YXJkXGxpNzIwXGNmMVx wYXJ9 Retained/Biomarker Testing q3isqFYkXESkbWB9MqP (test code = 9838) uXLDkq2vxq0JjjRTipC LjNOqjoCYecrEbtu70q TY0eZ68VW8aMHQmZkQ1 RKEzlfF5Uih4ERZuLRV wgIVhK654r9jyj9rfqn RjpOA9cZllVXAozoqbN qS4OTdlWDCbagudWFx2 WWflNDSlsQB6HUEvqIH uF0MoVNYkGC9rgic6DA L8EPrkRLPnFgK3DCRen JIkUTTdxMyhTGlun258 BFU6GsRiFQXnqbGyrVh gtM5dEtRgGCBGEbeaWV BTXHBhcn0= Informational Points (test b3ogjBElUFJyzXLsVrW code = 9836) aRKXmVFZgr6bnXZXevK FuZzEwMzNcZnRuYmpcd KHvBWDfEsMrl3gnu719 rCUrb1kvOKNgSuH2rSO bVMFyaCEiG178SVFuDQ fni1ths9ZkWOAzrQGph 4P7ZZBVSGasSQTJBZh1 l4xbQcHfKeT1wBYtJIf yL9xqdcZenGDmBAHtUR t9aV78OPSvzM1mdUGfN RgotnYpTfD0UAohVLLa OsE7GAIcxZXbYMCaC9c yZWQwXGdyZWVuMFxibH YaOGF3nZumr5H5qLFpw GVldHtcZjBcZnMyMiBO r9ZjZGo5kJmfH9AyPVC eXzM3xNJhDNGtGWsqBA CsCUVhyuR9rX53EAiew hB1zOIyj5Frn52aj138 aD5efWOrGBK8PKLdVLQ mtPNlMJUsWRZ5ZWEgvR JcU3vyICLnSM6gdlrnJ BtuDXzuYAKqgFV1NREq bJAeC5WeVNZkMQjrUYI dqga7GsLvQw0zrILslH ktZPsrp3afp1pnfVTpE pp9DDVuWjUqWjwzDPyz m9Zsw7upLKNhtf8wAFQ 5nXThfLodx3R6pIKaDJ DbtRFrzxEtHJZcmp76u UWatNDwdMHeuc9dpzSt cTDgcQWsDTY6wJInycG uXGZldDRcYWVuZGRvY1 eoYcSespCxE4rbE4IgJ HJoZWFkXHBnYnJkcmZv l7Klx9EggEWmxIe7z5o lEOBjQZKcbKvus7maDZ S8CRVuH1F2rOUbz4fqG UjtFQOzlFA8yfF2RGSz jKIgY7OqaK8hLNIdSK4 rebj3t7ybWCY0LCpyNG MeMbE1lkU4PKZucZHcQ UKhzQunCCcpc190DIB2 SrXtIEUwk9GiQ4UfqUv xR26apWxtM94hLKKjaQ dawT9thIbueH5vJjSsB nMyNFxxbFxwbGFpblxm NJvqjvW8UFripmybARL uBAbcI2yyGgDnVMKbbQ qiHJylp3RhUYIyCKUhS CfytXXJv88cXCHpd9Lr CEKamA5kyHAnEGxfytK olWF3MMrngrYoArYnqr TsFWBtpM8zOVVyHB7mG PMcmtEoyq1gjnVnGXXx DPFsX5AyxrxlnMqenyY wTBUenk0vtqCnOMK0HY FFWC6SGUQvKDRfw96dX SMwmBfnuQ0vmXDbxoOu INFpk1PdgY2rsAIARIG wM1qjFW1dVMdqb9QwiB TjyRKzlYN5FFMxc1GhM iLmuxXobYXnsQKkR2Dp bMzsW7jgWBTnAEZiydA utWLav1BiGYAtqNE7kY UdUK1UWfSEf10lJZOxP CBEcnVnIEFkbWluaXN0 xgI3eH5iCwCTuYbiZYK hf1Zhz2OrHLDmekLgrs TgOCN4PZjliVOskxpyV YweoiW8XCqgiiioNSYc TPqmS6ioHfQxXCFmlZd iBEyqb1FeNXSkJEZuLd tfksW4EAd1aiErYZsvU ZItP6NjTZJdrQnjUGQn eSBBcmVhKSBDeXRvcGF 2xO6qw8f8ZZxbCk1vVW TteiqlhPattK0hOtFiN kHiZAxyMC2wJYQqV5au xZTiTAAqFKHwY1pnTjB jlI2ftVfaRLmzPiXeBu MxOFxpICwgXHBsYWluX GYxXGZzMThcbGFuZzEw MzNcaGljaFxmMVxkYmN aMGFxUIjoS4ceGfRvO1 AsHMMbJDuwzVTlE7swd SAyXHBsYWluXGYxXGZz MThcbGFuZzEwMzNcaGl jaFxmMVxkYmNoXGYxXG vcC0foHzPkR4HgTAPkD ThcZXhwbmQtMVxleHBu HBT2VMHqvWFxC9ptpOR rTOYeQ2KrOlXNrvAat0 C1QTVtdDVfSMJNFPFgn WOgK4y8cWfhUFysXqe6 NzMuXHBsYWluXGYyXGZ zMjJcbGFuZzEwMzNcaG ljaFxmMlxkYmNoXGYyX UceU1mnKvBhHzOfIpdo [id number] [facility] Image-Guided FNA [id number] 21:37:45 Test Item Value Reference Range Interpretation Comments Gross Description (test [id number] code = [id number]) wMVxhbnNpXHNwbHRwZ3 KhetpyRGugDI0yCJ5eu YpfpKSqbCLhIQ6JXDNn ZmYxXHBhcGVydzEyMjQ kYZGkmAEknWK0VTEvUP 1hcmdsMTgwMFxtYXJnc bB6AHCxtWDfI0UdLGRj IA0uzecyPQT5GDwsfR6 vibXNMtudCj3tjGDmmU tcZjFcZmNoYXJzZXQwX DZsoJezQZNbAXe1rK9G TkmnV57mx9U4Vws1LEY oHHWfQ4YuKF3dHVYztN ZqN93XNvliXBO7XTNBK klyLVOjOX2Tv7vuUDEq aVNxBFS4UQkpvFApHEG zSNMsINp0HDXzJUlhnP FuZJ7euUxjPelliRhzl 2VjdCBcXGlkIDUxMDAy CHvkEHMtRG9PNeAjDGC hANI9TTBiRNc2EHp8GM 5OPyJeIHWgQRE3YQTvD fXhJXe5XMqgOQ3SNEVm LIT2VUR0QnqkHGPjGfX rEJg9VNIdCRzcZEEmwX FsIFxcZnMgMTAgXFxmY sNbHVFuUTrndhT2JJWg YWluXGJcZnMyMCBBOlx aDRRjVXzaqIqtoG6dVH WvC99ic4MYf9UrFF2ZZ Hj9feRmcmxqoR3nFAHz llNnPGyzwVHwC8acA1B bUPHpTiGtD6ZqK4smAV 8uDLJab7T5hlWhTgkwG XIgDQoyIERpZmYgUXVp vhzlRETFOXPyL1HofQ3 nM7fhVKWeAGVncqTJJo JuOA4rJYBosHZrfCOey KhiScusvBM9URwtDdwm dY1irCSQZDXOVdiNQer trtBqKA5PNXHNAyCJML 20VlH1NhC1YYjgdXqbK tejfxLxjDTxVjAOfU0c bGVhciBccHJvdGVjdDB 3DTTrTRnvc8mrYSDrIJ llk7LwMAfKHIMFEZ2AN Y0zySF1Y8vETPTTZ3dT zNX5q3otpMYwq5d3KIx vATR3rWXfXYgcCmfzbT E6LBlyDdsgiO8gdEBEE EOOUakWPgkqydWiAM1T ZUcONS5WpNR0s3yhtXK zy4r1SOqhNMD0wZxcqY QmdnokiFMnuNtnps81A XZ6PBJsOXmqnxCkMEJp fYWkBGkbRuvyhZY7YMa qCjjpoU6htTFVMBEKDa jXKjxzxfJwZT8MYPPBZ U3XoXC8IeOkePS4PR85 LFUmNYSjnNJyFZnkC85 2WHRfPXwoQQg8vhAvXR NmMVxmczIwICBpbiBSU K2WHPIckiMYMqIdY8r6 e7NnmK8pkGJuKE7JJHA fkvVNCgDnoiC0GMHmGO EaxQirYNEfEFdEcV8pH GlhdGUgYXNzZXNzbWVu mCAiz2Dcv0MxS5vfYA0 pBOSwpVTvZ9uji3ZrKK 4vOKOkVXZyx6ImW3K0M MCaBUtvg2ayOTXjCMlf w0DgBXuXOVMFXJ0VEI4 evEP4VVtATWZTY5wPkY S0LbW0vYS8R062KKRzL SMqqVVzACufP237fQV8 YFFsBZdwv0fjGWLwLAc dp5KdNQjECJOOCE7WCY 7hqLY3RLjIEMWTVLdkE Zn4YFmewBL6d3wsnDMr j6x0VGapHYY0yJjyyBB pblxsdHJjaFxjZjFcZn MyMCAgYnkgRHIuIFlvb 24uDQpcdiBTTUFSVExJ Z8DtNUCMIBTRLWJqTaU SPZ0sOpA8DxI5TC0ePm teKuL3EcA7nUV6UQQYM SBKRPjWJ8XaMIQOKPEG SRMjVW2INWzTYRBYDBE AT62SVOOWEREAG8ZDC0 wVAXNqm9AaYTzAKCUMQ GKHG54LGVIMKAENA1ZS RCBQTEFDRUhPTERFUl9 FBBCWIQBTLB5EHNsORb QkYFrhkYUjHIvfYJG3C Mt5N3u1uFBzs4WjfIK6 YuH4OzAnqMIENEMIQWh JJMRTXu6ALVNSQPNDFQ 1NTdQwC3EZBL9XTc8TK SXZXGKRDC2XNYjJHuFl O3PZMJ0VFa5YOCFYNJR OUE9GYsRmVZMUT1IYPo TXJ9lpLIEYORNKFROjB eNATY7tJOZRKV2ECTZQ EHEVO56YONLAATVHY4D SUG9GMRXgxNTROTX5AM 7vBMg3DUpbRSOuX3YvV 3RlbmRccGFyXHBhcmRc f6jcQJQ1VMXdcYPsaYE rFnOdMdzyLTV7UCWbLT meYB9OYFWgMVQ5SFrym T50xWJkJQ7GMNGhMXgb YKDiQAEimfD9NJLrrDA eWWH1FQ3kgDzlbAQnth hgvqM3UA3UrS== Immediate Assessment (test Adequate code = 9837) cellularity, favor benign Major Classification (test NFMC/benign code = 9839) Diagnosis (test code = 34) x2neeLDtZWJinKW7QxL zWWMqa8utg2QmoTMikB NfIYvxsIPcdzRtim50i HE6bL45BO2yWJSyWcP7 XQPujaB9Fse3RZLxOKN jlNXbP496k2tmc1bglz CcrGM7FBZdJCLfL5XqM G9gPDKscMBtL79seDFi ROI0WVKtRVVgxKPiWKY kLIG6VSZvcFNbV4mnJR YaRE2mjanvISahRDuuN IJmiQU9ZRRvnIBpX1Lx QNZqHFqkCCIgizu2BaX kHa5rfUDpxBwaHVegH8 ctpI3ePwC2VBfjR8cpj V9bKXb7SAoeANYwxWC8 yoB1ZMKxpIEdI1RtoY5 oTYYqMP0isro3c6ntJY S1QAknMJUbBhT0gtW6S DBccGFyZFxwbGFpblxm czIwXGNmMSBBLiBCcmV go5CsZMRiU3q0OQGocP 0dKV5kSFClLZKsw8RnE WDmT6k9CZZnXGSkjJKk LGPqKJQ2INKnCMYoTa8 0JFIztks9FPUtyNQsZF xpNzIwXGxpbjcyMFxjZ rXpKc4yuVAumIqlIZ63 WSWlcEzwEMmgIY19hYV pZWRccGFyIEJlbmlnbi XnpQD5FVdfLPFkiAztf Wt7fJT8mEUoAOVml0Yg pV3sTE0acFPpbCQgjUP zqY8qYOXpTTTsV1FxeV 3mBS2mLXD1v2LoVvCvM TDxfXWqZG3qWXGtMKK5 SEPkBXAqQLAkz9SjUEw ryyHnb45dxOE4OF28GT oowLmiIfefyu1oySH4c SIqK6kiejmoRNRpuedl YXJkXGxpNzIwXGNmMVx wYXJ9 Retained/Biomarker Testing p2cfjGRuLOAxpWP2MjB (test code = 9838) wZGBkd1xlw5VygWJblI HgHRituPBapkXgtx11q IC4iB80AG6xIFYlJuD2 OWTgcwZ9Chx3ZFHvAKR lqHCtF595k3fum4aqdw VpzER0wPmzIPEcqreqL bW6NHpcNNZexqukOBx6 LEhxTHFdeIE3MRGzaNF zW9CmFJVtDA9uzne7YB Q6DZptHMBwPkK3TNUkd CUyELPfbJdwEHaca987 KTI0RbUcSBNldmLkyXo biV6kKhIkHUFPJihpWL BTXHBhcn0= Informational Points (test p3awdWArJPHaqFZaYnL code = 9836) xITNoWCRta5ebCEUskS FuZzEwMzNcZnRuYmpcd DBzMOYjFlZqf4cos955 lCMfo3wsMAWqLuR3mFM nMLZgcVMrI418HXLvRF lbp5gzf8BaDOZifEFkl 4E9UNVZRUtmVYDOSMh9 e6alDkAxQfR9gCAkXQe gR6oeysXpmFJcEHFpTG g2mI38GZOyqX8ecGTwQ MeqomCqBrA6IVznYVGn QcH6DHIqlTQaDLAvZ4t yZWQwXGdyZWVuMFxibH DhBAL0lUiqa7S5uZRrt GVldHtcZjBcZnMyMiBO i9KzVUb8yKacV0TyZFS rWaH9pDLdVTRdDQbwEA XrYLUavvW0hM16FKpwm cP9eNKun1Ssy01pg264 eY6jqHKnYPX2VUJoIIE ahKKpOFXwKHS7WLYojV IoG5toZCIrOG8nbztrE NfeFOwlWPKajQM6JYNg rCNwO1ElGVZvDBckLHY rclf1CrAbZj7fbARqhA agDSvvu6snc2pkxISfK nb0PKIbDkBsAfnbDUfo l6Efs2qkHGRuvd6tWYG 1jNZncDqex2P9dWDqFX TedWRjzuVbODJuaj68y SMxiMLndASzwf5quyDl rCAziHDyEQD6zKVenbD uXGZldDRcYWVuZGRvY1 fiEzPgwuVuX7ukM4ZfA HJoZWFkXHBnYnJkcmZv e0Wkl3YifZEoeYa9j5p lQRWoUHKosXmkg6lxZP T1VUFwY5S7iSZup3xwX AbwWDIozNU9uxD7FYPn zWBxC9HajD9pPALqAK8 ymfr9n5ltBUM4AZqqRF OpVyE6pxJ2ZORvqMKpY OAtdPdgYAsut924EMO9 LbNkMKNdl7UzL2McfDv uR86mcCwyN05xXSWprL grcH2iuDbhoR8sOqRdV nMyNFxxbFxwbGFpblxm HPclalB3MOscbvxwTUG yJQydW3arHaFpZBThyX uoZLwda0HdVZEyKYPeX KdxtASWa42wETIse1Ef WGYhqJ1eaHWkPWphvgT npRY7CZbsreGdKnNpod NoLXFtoZ7pYNFfKJ0xN FOkquYrme4lcaTvGMFy IWBpA7QschttlHsvjiL cCGWkby8ykaBuTMW0PG TYBK5MAYIiDXFke08cY JGgeUzcfZ9qhAGsdbIo WDQfi9YruA9izMPGRDI qB3abTR6xTLqgq9ZfjD AjuFOhgZS0KKWal4ZeP fWwzfPndNPcxSSlR4Kn sEiaE3asUJYuZRCjkiS gnSDcl6QrPPQwqYF3wJ JzMR4QCcBKa88iHGVgG CBEcnVnIEFkbWluaXN0 keD3wN9fUeSMgQuzQNJ to4Omc0SrITJyidQavd YrMXC0RFmfnZFziojyG YojbsA7LInupivzQVMo CEjzD5xjDrZcQNGhkPw uEFygw7DtAQKsQNVyDk odiyQ4CZu8wrDqUHdfI VNvM5BzGQIfoGbqMGTi eSBBcmVhKSBDeXRvcGF 1gT7dq4o2QRrfEu9tYW UkwuwudIxwrQ2wLvSlI cStGPjzUJ5wGCKnS9lp kCRcQAJyFWHvT4hbMjV iqB5uhBerBWenKlLjMn MxOFxpICwgXHBsYWluX GYxXGZzMThcbGFuZzEw MzNcaGljaFxmMVxkYmN kQGLaGGhqK2daUiXjD9 PpLDUrDBjzbGPtN0eyv SAyXHBsYWluXGYxXGZz MThcbGFuZzEwMzNcaGl jaFxmMVxkYmNoXGYxXG sxH6fhHzRbY6OxBILdA ThcZXhwbmQtMVxleHBu GBY9UJDnsOQfW2artBC hOFByL6YtLvJPvyCxk8 K2XDLpoZEuDOYNECZeh ZTnQ1a2kKdgODhcEyn5 NzMuXHBsYWluXGYyXGZ zMjJcbGFuZzEwMzNcaG ljaFxmMlxkYmNoXGYyX OktY2bvAsUhGlEgSywh YXJ9 [facility] [id number] 16:49:09 Test Item Value Reference Range Interpretation Comments POC Crea (test code 1.0 mg/dL 0.6-1.3 Medicati ons, = 98641-1) especially hydroxyurea or supplements, peterson ch as ascorbate, can interfere with test results causing a falsely and significantly h igher result than exp ected. If a problem is suspected with a patient's resul t, a sample should b e sent to the laborato for confirmatory te sting. Method descript ion: The i-STAT is a n analyzer used f or in vitro quantific ation of various anal ytes in whole blood. The device uses a s shawn disposable cart ridge which contains microfabricated sensors, a calibration annia [employer], fluidics system , and a waste chamber . Each test cartridge contains chemic ally sensitive biose nsors on a [employer] ip that are config ured to perform spec ific tests. The microfabricated sensors measure analyte concent ration by an electroc emical assay. POC eGFR-AA (test 61 See_Comment Normal eGF R >= 60 code = 88035-6) mL/min/1.73 m2 The eGFR is calcula anny [...] ith normal or high GFR >=902 Kidney da mage with mild decre ase in GFR 60-893a Mil d to moderate decrea se in GFR 45-593b Mod erate to severe decre ase in GFR 30-444 Carmen re decrease in GFR 15-295 Kidney f ailure <15 (or dialysi s) [Automated mess age] The system [employer] [place] generated this result transmitted ref erence range: >=60 mL/min/1.73 m2. The reference range was not used to int erpret this result as normal/abnormal . POC eGFR-DORCAS (test 53 See_Comment L Normal eG FR >= 60 code = 41788-1) mL/min/1.73 m2 The eGFR is calcula anny [...] ith normal or high GFR >=902 Kidney da mage with mild decre ase in GFR 60-893a Mil d to moderate decrea se in GFR 45-593b Mod erate to severe decre ase in GFR 30-444 Carmen re decrease in GFR 15-295 Kidney f ailure <15 (or dialysi s) [Automated mess age] The system [employer] [place] generated this result transmitted ref erence range: >=60 mL/min/1.73 m2. The reference range was not used to int erpret this result as normal/abnormal . POC Clean Dev (test Yes code = 6672) Performing Lab (test MDA Main Main Ca mpus code = 76167) [facility], [address] [address] [place], [facility] [place] [address]; [employer] Front Desk Attendant: Zakia Aragon MD Lab Interpretation Abnormal (test code = 01044-3) [facility]ation 2021-11-25 16:06:16 Test Item Value Reference Range Interpretation Comments Submitted Clinical History [id number] (test code = 51883) mbGFuZzEwMzNcZnRuYm pcdWMxIHtccnRmMVxzc 5RtT3ThSyYmFDdgelWp XGRlZmxhbmcxMDMzXGZ 0bmJqXHVjMVxkZWZmMH vyLa1tqNUkpLydSgBuT GEgs4wipnGZuwqhmFe6 p7etWNRvXnG3lRQbNMa uT8avgwColCGqLHUjKU r3fN44JYChnX1kaKWqW KkozeXjFkK6QDesQIZz QyM0JGBhgUVrTYZkR8q yZWQwXGdyZWVuMFxibH UwCKH0aVggg2O0qFQgq GVldHtcZjBcZnMyMiBO e9WzGNg8vPueV2TdLGU tXgK3wEDbGNObFImtQV FiWAUbyuU5uD26MXqax nV6yQWpx7Lou91nj591 nD6ltAMpDWN4LTTvYNP xuUAwFRAuSPS4YSVanU ReV5ueVNMxGN5wsawfW RglIWwuJKXmwUB3KBOr tPSkB2GtGEWkZDopVVP tcwb2IxVxNl6oxAHeyF syBPsxs4naf1yxsOZwZ uj1XUSiOjIuZjgfBXtd v1Xin6gpYTQqai3yGBZ 1iSLuiHpwg7P1zEZoOS WikXAsdwGbANWkYjT1Z DrbQS2fhj09XTViEZM5 my4ksCFbmKcnadPqpLI xBEpvU0IuPZBcx167UV PgX6WkUUUnt7F7gzKpC vXzXHCbuIS7awJ7OANw RWw0rBVolzP0jaSjpUJ dI8fcxM3lWSYmLM8kga mek7fgAJjtHBfwJMOqo PJ2qbU1PHYpuHMhS9Ti nH5fVVRaLZttHPJrefg 8FaLnGu9wbSKgdRswJX xzYmtwYWdlXHBnbmNvb nRccGduZGVjXHBsYWlu XHBsYWluXGYwXGZzMjR ntWiezImbjS0vVdRlJy ObYCnjYZ4fNPCoY7gyg IJvRMYzOTExA7otUdLp zJ6poJhvDUuwaeYjEZ4 kyN8hJ9FkySl7GKLyic 2coDBpLXxXDSAdYB9cw PqvtP3hSjQqLaDcCwlt SV2fIKZzQ0xaiHIcOOR dJPBgE4rwOqNitI1faD llQQtywrNpWJDxko60 Diagnosis (test code = 34) x1thgXViXEArwDM1EkT yTRBcq1tee7HwlCSjkL ZfFToziCMbslJbpi61q WZ5nD48QH0jWQLvLsU1 HEPugqW2Oat8KIYyKDT bpOXoY236z3tkl9uhxc BhrAC3ZPRlXXCcY8ZlQ F7sQHDkoTAfM37ncNIb ASS2KWThFHFnpLRiZNU kXGW0LJHraMZjX0qvGP XdOO9jysvcVSpqQZqzD GFssFG3RRKtfWQiQ4Zi ERWqXHvcMRQgvds0LkV xMs3ocNEgiHseNJtcFZ JkXHBsYWluXGZzMjBcY 2ClBLT5ZRUfEGIcfPft kjiliIMgVHIjV4v8FOQ yZWFzdCAxMDowMCwgNy LqdKQRZqcxSG09RBOqO NCxoDBaRptvDZ2mj7Is EYUkfPPbn992pkCvT1I pZGVkIGNvcmUgbmVlZG kpLJHns5AcfVxfrZZvV GxpNzIwXGxpbjcyMFxj FbBmUV5PAYOSLcQuQJK BZAQZMWYMYdQZHm1DOS TXToZLJoVZX0QvMPbWV 1XYZH3GNFQrB4YAZHIw MywgTlVDTEVBUiBHUkF ERSAzIChISUdILUdSQU IRLCqdJ7jIYTWHSADDB 1BBUElMTEFSWSBQQVRU WIRUYXRTJX8UPTDIGAo WXFpyCD5UEQuRIIOUCH RVQlVMQVIgUEFUVEVST kPpD2IYZZGBEO8AQwPd LlxwYXJcbGkwXGxpbjB ccGFyXGNmMSBCOiBCcm Amh2ZcSWEwS0d6HGKyx WdssCQvhcUqu5XbHGP2 ALUhGHPeR28dTq7cFPW fY21mpDFgdEBqfXXvwV VjcausxFx7sxLar1NrK E8vcNofMJYuZ90bRBTj ZVJwcRQkSksrjCF1Bqw gXXCwxXr1UgFpyGwcDm DuSEBnFECNAnYSO3bLS KPDJPDSZPrmJ7CTP8hN I66LMT8ZMRDOGKOZPNz dYDcUZH0JI7yHEuUUIt FERSAzLCBOVUNMRUFSI KaSOTCDCZYrVUoKC9gj I0LJFDTiJRTJSSJERO7 LJ5FMRVFARWfHCQKIXS CFKJQLIa7dNTQCSRrIS XFfX6dVCRRSA3xyV5LU REUgVFVCVUxBUiBQQVR QUGBYCHxPRWAuS82IHW VOVCkuXHBhclxsaTBcb CyqGJyaYXSxE9GzKIP5 HQr9lJYaRT2hNTEuisk vLDEuU1p4YEJcmWhqlB FyeSBsZXZlbCAxLCAxL hwuU62vWPDulAFin791 paGpK3JtPNCaVRDmebZ eyxZiXPueFDMqe1MerI pccGFyXGxpNzIwXGxpb jcyMFxjZjAgTUVUQVNU LWCOPuKJBQQPO6SSPwV AIo2OAMKLKTRTCL5pI9 7ILWeUWDFSJX6FSDMpR BUbDPvmEDBXRNDOC53M LI7WTCEulclbwLDheEe oUPfeEXXsU4KzXBP7HM JyZWFzdCwgbGVmdCwgb RCjdAEyelCzf5RaXjnj MCwgNSBjbSBGTiwgMS4 3VHOhFJ9gg7ZgYXJyvH Ktk216veZuV6SpSNDyT GNvcmUgbmVlZGxlIGJp n8JsdEjcbWQbDZinAdI wXGxpbjcyMFxjZjAgUG 3ggBesxaSiSoY2sTGqY QLuM2ZrzvQuJ9hkpET4 aXRoIHJlcGFyYXRpdmU fG5qzakmbjyPtt1PwWU FfgM6lvxCvAglmWBLop GFyZFxwYXJ9 Comment (test code = 9835) d1sdhJXzLZVxaCL5XjZ fIMQbg2ixi7LlkLIxtO MfIMpgyQCbbkNwjd90a DJ0bF44QU1vIQAfUfD0 LSByxiI2Zeg2OZSdCSD glPRlZ516r2xcu3gedy AyqJW6CEGeGQX8LXzsa rYmxtB5ANevjGWlQqC1 F7kvQSQnABnxQGJhHLz ecLGxCCy1SAWtsHHztn EtNdNtQOLbyWIstXL0J TSvQJ1dzyqgXXkuEVlm DGNerpW0URPvbOGxQ8H kJJJiJU5hzpwbWYN5EG qpACWjULF6PsAuBLMnn 6Esnfh0PaUiiQDqNIix bGFpblxmczIwIFRoZSB shqWun5t5QECeBMBmyJ 6tyLFcLGWcWd60aKTyo XRlcyBBIGFuZCBCIGhh cyN9x89cOPymuJcfO6U opxLydPrudG6vh8orAh CyKLT1TFOmunbddK29B ZRkmaJoeBaaip5mRYWt bGxhcnkgdGhhdCBoYXM aiCyczJ0sudCaVGRuiu QgaXMgYWRqYWNlbnQgd J6dN3tik4CnGsXcuzSa p4k1AKM0oYE9aJBvIPC qtDNnzo8loQwawNIcGF CneK19QIgmLGToPjDeJ k96lLTwArH7oACzYRPx xNN9a8wzJ9xuHIDscLO nsg9yQVncsgTseYPrmc ExK2EfDBNpZ4LxeC4uD TU1QmT5wFSpQOExSYTl Y7LlPdSqRMInpZ15FhI hQBmwXR8seTWifDXraZ IiaW5vkHodQFN9rDhuZ SE8TW0rNLUkkAPlMFC1 FfHwOXBbpBM6cMVoth8 hG72yYJBmoeQrmGSzhY wjeBHniStyhXO7fSVcd X76DOWfpvReyYjjxy9j PHKntUxiiflemCZ8bRA mwuVdulA1oMQsighlbF NpJnRjUMC4PQFohSksL EUhaFUig7AawBWtALHu ZmZlcmVudGlhdGlvbiB znc3pMCH3FsAjPQDgT6 TpS2hlv20xRnJdJMLwc mptHZYqUX4utP5aaZon hH8qiWFgpTXxnQMmxRD awvWvv4AwYVAhIVPom4 ZtTDIly77izQoos7UpU EZeD3Ypa32oYUCit68i n8VtN2nlPX9xYW7mAKN tGPSgEBStnJ9nxRUyg2 Aef55ghGuqRQwrkiEyq 2VzIEdBVEEzIGFuZCBt QX7rUHpon9MoexotH92 oApmeeHuaOnE9mYOzhJ IrqOZulEHsxzmvtO6gE WYGzmLgcD86ty2mxFZe ykNai0WwKTZFNGttB8e hiSjsqHLqIZ5gu9EsIG ikYKpdL0FxsLBnLN3sG RWlVPDqi9EbSPLoi78x eTGreZRwBY70MII9gPQ lpbTyST7nNDa2dOStv7 Yau7R2rWCbRPjxkhYwb E2lKpiqSAUroZBfLIHl daguUTTkYDHtd39lisy kdeMKLHU8mDZzVdzqTM DsMlEwvFf1zIWpXC7qd Y0byDyebO1kzNEafJKx bCBzdGFpbmluZyBpcyB gSTXec3OcWFXuiI2hj8 VyIGxhYiBvbiByZXByZ QXjtbWdmOv7OFweFKVi fAHaZPi4eCz6NBKorLE bbOPqnGqbNnrfnGB8AT rjDjbwgC6mwQPFKDTXB yfPYjbcozGzJW1EMOKB VzASGY26GuUkNUT5CAw xfXtcZmxkcnNsdCBcJz FfuO9CUJLiUaSscr2dm RIcWAHuDXHdPRQ5yB6p PDAmu1ctfXMvEGfsYhi irVGzptN8ZCvBIVXORY pXKoLqGX5oAIiKW2DYC oC7FsIdQJN8BDurcPdb ZmxkcnNsdCBcJzFjfX1 jzNegaB3jyJxdotFwXK Wczxt8lm08JIx9puPrC kKvEJTymTOmKVHzN0g2 cnBhZGRsMTVcdHJwYWR kZnIzXHRycGFkZHIxNV glrYOwPMR2FNOeLFGfH DDzCJC9OVZbIbRuzcQp MVxjbGJyZHJsXGJyZHJ bLQLgBIN5QZNsNpPzpy NmMVxjbGJyZHJyXGJyZ LFnOOEcWZN4LTDcPfUk NmMVxjbGJyZHJiXGJ oVSFgCYAbGVM6OAClOy JkcmNmMVxjbHZlcnRhb PNkL7oehICGkHD0pQBg F8j0O9fbvUorUlTjKWV avTz7RnY3NIazgCHfPR K5LJOfLAQrMMQoGBA6Y TBcYnJkcmNmMVxjbGJy ZHJsXGJyZHJzXGJyZHJ 3MTBcYnJkcmNmMVxjbG JyZHJyXGJyZHJzXGJyZ BQ6MCKvDsRgocFeHAjd bGJyZHJiXGJyZHJzXGJ zFNX7WNDhFjUxtwTsFH krkVKhqyVrvCSaX2ida SRGeWK4aQHyX5s2H6oj xDs3TiSsCCUknPz9COE 1MFxwYXJkXGludGJsXG YimKXxW2EcW8umVK4zL YbeH02cb6hbZqWrD6At bFxwYXJkXGludGJsXGI qRTBxi6KuX5P9DIHyOT smo2fhJHKuOIdey7ZxD WqBEYGAYD0VNZ0lhZE2 CSjRSAGNQ3uDfLO8UHX rhMY5Fu38NHDnVHIzeJ RsFYvzF733XE0FITHRO kUgRFVDVEFMIENBUkNJ Xh3LFJyxZlilhYH1BMm gIwtlaF3rxBJORWKHSi sUOeeyvaSqDW8VOOXGT L9QwRT7XTWmwIS2Mf68 DTFaFRLinLAzITtpW21 0BYJbWSpuTXZyNrKxC7 DtbXxuquBhbEhvk7fts TPdr9NnjGYiGDRgLmvc SBBxxJDuQGihNQr5vwA hZGRmcjNcdHJwYWRkcj G7AJWvBmOrueXrCeKfe nNcYnJkcncxMFxicmRy N1DyZHSxLrRfusgnNnE kcnNcYnJkcncxMFxicm WlU9HoYVQiBzWorbGwH nJkcnNcYnJkcncxMFxi hiEtM0EdPRJxQuLjtyX cYnJkcnNcYnJkcncxMF fqxlOvK2UrDNHvtyKai KEjrJkeeXJ0r0ehJAGm D2izmFcHdCT3rGMtRKA vN5NsyGpjZgIpQQKbWw JkcnRcYnJkcnNcYnJkc pgpLMqkauBoH3OzKSUk YnJkcmxcYnJkcnNcYnJ hqqxpLMscccSxA9RbMS NsYnJkcnJcYnJkcnNcY jIgjfhyIIekyiYyL4Zw XGNsYnJkcmJcYnJkcnN cYnJkcncxMFxicmRyY2 YxXGNsdmVydGFsdFxjb DK6q9puUIZkA1howSzV aQB9nYWnCEQnG8EqrWw 8QGKaPRTtssVlyR84Le xcYiBTaXRlOlxjZWxsX QLlhfOopH35AzshBrDh cHJvdGVjdHtcZmllbGR 0EJeeQtgouZ5scOSXXF BMSzyZXtekgrUfDY7UN TMCXoJRXS14TqZmGGD4 U3lbxUqgMombdtGouSH jRfTgoW8KbYqsrHECgu Lfy9D2PGVdHZzqd9wjK GYqNCgad0UuHRaLGFGR JJ3WUG0adCB1TPwXBLT SBZjaMlPyX5djrYE5c6 gkrLWqz2d5GUikSGM4s VxwbGFpblxmczIwXGNl iCdzhS82Zmmuse29TET cn4raOZLyuerkNQRhvI JwYWRkZmwzXHRycGFkZ NleLGj6raGkVMQhlyXc aEMwMBZjaoJ9PZVfEiI kcnRcYnJkcnNcYnJkcn srOSchktSsY2EyUBVbL nJkcmxcYnJkcnNcYnJk uoibEDyycdJuP2DwJPG sYnJkcnJcYnJkcnNcYn PdmrgwAUqyruOgO9WtW GNsYnJkcmJcYnJkcnNc LkQfuwuxAYxengJdT5B xXGNsdmVydGFsdFxjbG X9y3yjLBVhR1duuWvWv HD3jHVlJFHmR7XenPvj MzQwXGNsYnJkcnRcYnJ kcnNcYnJkcncxMFxicm QyS2StACTdPnAlpdiqU nJkcnNcYnJkcncxMFxi amWiU9IjGOUvJlFtqiW cYnJkcnNcYnJkcncxMF vhbvXnD6UtBFEeVhXjm mJcYnJkcnNcYnJkcncx IUjgoyKwO2YxUXMhfbS pyZTxsZtefCG6f8mdPP PtT2uvyIwAlSZ1eVFcY VXiB7MncEn4THRfEWUf uuEguZ51RszszCw2LvV hKRE7BVooZNjvLKoiVX RlOlxjZWxsXHBhcmRca X63CzmlVuFmmSZkdPKz vCsnEumlxHY0TDdmKmo puV8gkTNWABDLJdaFUe ieayOcNL2LPVIEUcCZZ P00LzDqRFN4XNy1nDdr ZmxkcnNsdCBcJzFjfX1 CE8S7GDLbIVjri6ecAC ZaKRujt8MkZRbCFQJVN M3RLP1naTN0KXkMAZYR FCehLmGaHua6mLG3e4o reBWbe8s0LViaYZY3wJ xwbGFpblxmczIwXGNlb JzyuQ10Fuzddu44YRWz q1xqUZwai9Elc9ctvLR wYWRkZmwzXHRycGFkZG rlUGn4avSrABNkmuHdm LGnDPCmupD7IBVrIuCj cnRcYnJkcnNcYnJkcnc hGSkkyeYuQ3GqTBOwMy JkcmxcYnJkcnNcYnJkc mkcLMzevpLeF3DuRJEa YnJkcnJcYnJkcnNcYnJ uoyfoQUshmkFpH7LyUS NsYnJkcmJcYnJkcnNcY gYqujkhXUkyfyRmX8Oz XGNsdmVydGFsdFxjbGZ 9v3zsMGMlS5ogqQkXiN P5dMQsEPBeA9SkcBfbO zQwXGNsYnJkcnRcYnJk cnNcYnJkcncxMFxicmR aW8SoKMKtTnQilszvGc JkcnNcYnJkcncxMFxic fNkD3TiHNUcSgQxnuZb YnJkcnNcYnJkcncxMFx cmoFgO3WaCCZiOdPiau JcYnJkcnNcYnJkcncxM RuaxvXtO6FkYVPqdpRq jKMklItxbXD9t8ooXYQ nO6zspQfUuBW1iTAjBZ TvI3JxdAg9OCSmOZRpa aIemM54NlmeaGs9OzCz QFN6LWfqJVfzFRBgt1Q iTRTwVgNsS3CmjKmzKO JkXGludGJsXGIwIEEyX GZrhBqsoW77Lqwwkx03 XHBhcmRcdGFiXHBhclx sCOTgKEP6WVK5ATvpHA Eec21rjoyqhuuvJAtoy NKiRQZckmOGv4Iww5qi biBSZWNlcHRvcjogXHB alun1kl57LWs7anJcQH yfEQMkqGHeTHFsQ7d1h nBhZGRsMTVcdHJwYWRk ZnIzXHRycGFkZHIxNVx tjWKvJON5XOFjDZXyAN NlWST5SYYbMhXcxqKfZ VxjbGJyZHJsXGJyZHJz NFMzSEV2MIBwQqJmwvH mMVxjbGJyZHJyXGJyZH VyVPDqRCY1XPLmQdCxz mNmMVxjbGJyZHJiXGJy NJIrFSAzFZJ0UXYqWxE kcmNmMVxjbHZlcnRhbH RoC2otmRICmJM5xMRbN 4r3Y3jspJclUEbkRQEk yHp8QMr6EOdkpTOrBZH 9PBVfOAUfWFBsEBG6IB BcYnJkcmNmMVxjbGJyZ HJsXGJyZHJzXGJyZHJ3 MTBcYnJkcmNmMVxjbGJ yZHJyXGJyZHJzXGJyZH K7YOLgWxEfdxOeNXpeq GJyZHJiXGJyZHJzXGJy QCQ8UAKeOeWpysZdGRr txSBtnwOeeYUeF5kimX RHaBW0yTMhC7i3F9qdz Ny6DPeuIVSvfMa1JNT3 MFxwYXJkXGludGJsXHF fQMPpRVkkBF26qBPhKC lmS1sukaB3NKqqXMphM RMjuiZhwH18DvwreHWk cBNetKmfCujhzYP8NUp wBjwcmV0wdKFCTPFUZq cKLglxqsDhYV2LLLOUS oSZQL75FkXcKAG9RMf2 fXtcZmxkcnNsdCBcJzF njE19HeXzZLgVBXsxDV p7WPCmDHeys8dfZFHqA Oswr4WvLHiKJYUGAT0I YF6zjTV3POzFZGAAOIh fYpOoCDi7dZY7m3mosE Iqg8h6NJeoVSM3zDbey HSyceysASQvKmLdU6To pEextyMjwOyah0zpuVQ ft8HfsZJkfZNsNKb7se BhZGRmbDNcdHJwYWRkb VQ0UNWksKJiVVZdF9h9 hrBqLUJkOFEaL7wsypI xiPthqrCcm1lgoiHisk CeKHReREYkGbOtY5zai uDlcEbqysCjo6qspeRz fbOoOPDwKNJxBjIdU0c xywOvszelsmXze9zogg RydzEwXGJyZHJjZjFcY 4iemaQeRowvpzVud5ci cmRydzEwXGJyZHJjZjF qZ7z8KXL7LJm1RJVxBs JuD4bikXlpUNUft2vdQ EZaQKc3ULvuLAgkyHX2 MUYkY1ajbzJhmQvkqvJ mf4kjijQivgUwNGToAK ZwBrNsT1lafiRekDbyr bEae7myjhMvyrJvPBRa PSZjEwUqK8hjzkLjdgs arvNak0ptcjQzrhUoKW KgFLGuTwWoF7cdzyDrU eatvwXzu6gfuzEggqDe LLLrMYJvYvTgH0h0DQK 6HDp8QRVuTaItP3zxxM fpRPEsl1naPOGrZqY8P BbkVUqhyCp9BjXtsHYe ZFxpbnRibFxxclxpMFx yTKeeXGTivhXusQ07Xc lkpOCCh5YehRs7RXE3C DExLTEwMCUsIExvdyBQ b9QptGh7RLF6XFDhMSR lVOTkyRyggZ72Anjass 89RQBxb4jzKGJduttlR TBcdHJwYWRkZmwzXHRy dAAeKCxhDRp5efSgLPK rtnJuvEPoCVTujcK6TR NsYnJkcnRcYnJkcnNcY vMzeyouCQfauoDbY6Yx XGNsYnJkcmxcYnJkcnN cYnJkcncxMFxicmRyY2 YxXGNsYnJkcnJcYnJkc nNcYnJkcncxMFxicmRy F0JrZDOlKuXkmyNoVqL kcnNcYnJkcncxMFxicm XuJ1QdUWYjjzTgsVIhk HtmrDK8a8mhGTOwE2qs tWtWqRK4zZK4MFBhI6Z sbHgxODkwXGNsYnJkcn RcYnJkcnNcYnJkcncxM XeoigRrM6IfRLXzQkZt cmxcYnJkcnNcYnJkcnc mBZopkyJjA6HtTLInQa JkcnJcYnJkcnNcYnJkc nfeWNmjbgWdP7TfPJBk YnJkcmJcYnJkcnNcYnJ tsupqEMleenQzQ5SaUK HuuyRovJXnfWwzePG8h 7tmFHSwI4bmyWhAdIT6 pYP2CgVoI6KonMz8UXZ yDXKlemCnqK96WzcqqO VxdXUuX8NaaRwsFYJpW GludGJsXGkgUmVmZXJl frDrXtKOgMulj31gEAZ wRSitVDEjS3xwXEI9dD 9sIExhYiBNZWQgMjAxO VxjZWxsXGludGJsXHJv w7q6vo65FBj4veOrSiL sCOGxiDJwRXZyG2z9eq BhZGRsMTVcdHJwYWRkZ nIzXHRycGFkZHIxNVxj fQPtFZZ2MKBoHSXkSQV eSOM2FVReFzJsklHlVA xjbGJyZHJsXGJyZHJzX FJmRJN7CFRkHcTkytYv MVxjbGJyZHJyXGJyZHJ fTIFiZGE2WBVnLkNtao NmMVxjbGJyZHJiXGJyZ ICzWKLdARH7EBPzKwHw NmMVxjbHZlcnRhbHR cX8uoeWLYaUX7vANxE7 i2K3igpEsvBEwyIIKmw Os5XWh4XDnxfUCrCLG7 RPWaVKNeDYCeAFP8WGM cYnJkcmNmMVxjbGJyZH OqGIFaPVNcMHRzPZH9F TBcYnJkDeaconess Incarnate Word Health SystemMVxjbGJy ZHJyXGJyZHJzXGJyZHJ 3MTBcYnJkNmMVxjbG JyZHJiXGJyZHJzXGJyZ AZ3BRBfHiLcgmFrOUik mPFhfwQunPXrT7wrnCH JnDS7aICjT5c0G0fdrX b1FDbdKGAhvIi6XEP2E FxwYXJkXGludGJsXHFy TILlgJDmQkRgjEu2sor fH7RseCouHJSmPQpojN OjWILeHHQoh9RzO8G2B HBxNMqbq2wkFLDzIYoe g6GcRXgJOZRTGE9LYR6 ktPE2GDmLICVMZ0dZqB N1JIN3nVX2Yn67ATQkY TOjgSUnKPziF611YE4l sWVxamJ3OTIwCZwsv0z vKNUmFTohb5HoRQdMEV PLTJ9ENR1cqTZ6RHgMX AVJXHohQmLbBId7wIG2 b9trvRUmo8g1PZvfAVD 9fVxwbGFpblxmczIwXG DmfHhlbF75Jrztcg67G RUkn2onASZhmoudYeHr dHJwYWRkZmwzXHRycGF tMVgfOXn4vyHzKORlbc ZnyTYjEZSwslB5RBMtV nJkcnRcYnJkcnNcYnJk ksrmQKfdsrTeA4CpEHP sYnJkcmxcYnJkcnNcYn InhozbNBevxyEcE3UfN GNsYnJkcnJcYnJkcnNc SyRvgzchCZwzkuXyE2V xXGNsYnJkcmJcYnJkcn NcYnJkcncxMFxicmRyY 2YxXGNsdmVydGFsdFxj yRQ7c1hsLNNcU1tnnKf EqOB7iAP2VRUhN1CmiQ gxODkwXGNsYnJkcnRcY nJkcnNcYnJkcncxMFxi rwUaD8SgETXgYtOtiha cYnJkcnNcYnJkcncxMF ygubDqI6PxQRFkSpPgm nJcYnJkcnNcYnJkcncx HTwcvuQuO4IcWQWxHmP kcmJcYnJkcnNcYnJkcn akFViazuJgJ3EjKRNhs jNijZUmsVqxnKT3f9xa LANhI6tlpNiQoXD6zCL 5TpWwL8XnzQw2NEAcLW PpetHbqU33VfwhrNPxT qJDYXHgNU55IBO1LCmi zZ8nNxlhIEydYHRcphS kiN99IjdfVuTavBGxeG JkpCvoYnxvuTB2TEyuF lnbdR7noYDEUAHMQkbM JkzdwiDtYC4BZVCVUwJ SRQ59SrFpMjI6B0v3sX tcZmxkcnNsdCBcJzFjf N7fOTEuW1ZTKZMiUSOf n2WxH3Ffz5byvKBiIEd oIxzmbOFawbF0GSgWYF YZFRzKGhJsGJ0aOTdQV GJFTSiRTvk1tOwgYhuh wuOnzCOrOgNtbU08HVz xZoqhcPN8JEinIwuzhZ 5zdCBIWVBFUkxJTksgb bRfOJ3FWXdKEC3ZaBv4 u9ddlSSya3c5VPxiJNG 1mKperASthqmzct88WM C7FEHzWrHqTWJ0IHLuM Ndbz8mmGHPkIJndq5Re MEyVUWRCAO3LLR2ehIH 9TElTVEVORHwyNjAyNX y9iSa5j4rwmTNou4r0V BcmAPT4yIgkqIUtixsb gkObDEUjmGgtyD35Yce dwb91KXWik3moPXBalG EfLGLrI8f3pjBqRKViW TVcdHJwYWRkZnIzXHRy cGFkZHIxNVxjbGJyZHJ 2IMBaBIYoAVKmSBD3AB BcYnJkcmNmMVxjbGJyZ HJsXGJyZHJzXGJyZHJ3 MTBcYnJkcmNmMVxjbGJ yZHJyXGJyZHJzXGJyZH Q2XPEgAiBveiDiLOolf GJyZHJiXGJyZHJzXGJy UJA4PYAtXwDczcVpWUk gmTOznjEjfYNvJ1uwmM PXuWD0nQYnB3s3T8gkl MfyDIzwFOBakHx2ZOl9 YNcffQCiLXS1TPPuMVW bRHKuVLO4XXOiFyLthu NmMVxjbGJyZHJsXGJyZ NJrEHRjYXN8VGJwCnGi cmNmMVxjbGJyZHJyXGJ zYAZyNIOyRCX3MGTrFa JkcmNmMVxjbGJyZHJiX WBcGQSjVFItGFC2ZJWm YnJkcmNmMVxjbHZlcnR gvOAaI6vztGTRtLR1kY KeN3n2F2eymOd8FYbvI LHkaUd9PDX6LOynGGAe AKdyuFUhULXqSHGaU3K sbFxwYXJkXGludGJsIF BcZSBbi70iDI35XTUld YlqpB12Ndxxnl07JRPq i3knLNGprHDyPBVrI3p 0cnBhZGRsMTVcdHJwYW RkZnIzXHRycGFkZHIxN KwbzIOoXUF1HKRwHVIk FURhZWF1TDMuIvFgwmA mMVxjbGJyZHJsXGJyZH PpFWMcEDJ1GWKeDuLab mNmMVxjbGJyZHJyXGJy UYUcLPCxTZA0KZAyJeQ kcmNmMVxjbGJyZHJiXG TwSMFaIQWcBKK4ZZOoI nJkcmNmMVxjbHZlcnRh gZSvD5czaBLZrET6jAV jW8i1P1dysWbiILkxPQ XzvAw6EYw7PLwlaUXyL PQ9QTXuTXSlSIJeVPX9 MTBcYnJkcmNmMVxjbGJ yZHJsXGJyZHJzXGJyZH E2OVFmVeQidvYiLOzyg GJyZHJyXGJyZHJzXGJy OZM3XGCtYqUsjiUyWTx jbGJyZHJiXGJyZHJzXG YjZZT0WDTcGdJeskGeR AlahTNyogLwnQFnP4py hOCXvVP9nJScD6e8I4a drXe9DVvhTVLjzZe9UB S1AYgdPPDiYDurnTRuH HFyXGNlbGxccGFyZFxp sjUjyJhyla83OVN5z3l maWVsZHtcKlxmbGRpbn Y8VQbRLFBDXTcMKlMkI K2yDQiFZ0VVWLaTAfjk XfQgBui5eVr3c1qxoVP hf2m3DWaoXUB5zMCuoQ JvcHJpYXRlIGNvbnRyb 7nfLDYvOTTrcrArZL41 PW7bRUFcGIGreVzbFG6 3YHMyJRyqs3mdQMZvJL zvk9AwCQlDTPTMMM0YX D1ziAM5NUzPZWDIRDvu DfGeMec6qVt1i5opdUO lm8r9PMikRAC7lEwqcS FpblxmczIwXGNlbGxca P65Dlbtzy41TTFpb6dg XHRycmgyNTVcbGFzdHJ kg1t1leIcJLSpxBDhsT EvIVZgyVE9TNFelNNcB LLuU3g6hnXnISMoYSCq T3wcidEytYmwopJpg2d icmRydzEwXGJyZHJjZj OlL6qcenTsvUddcxOsd 1xicmRydzEwXGJyZHJj IuGgP2ldshToixhtskW ur4sekrDvwmQfUPRsPN QqLrQiS4nksnAjZcwen mQcz6euokOvoeSfFCZg OCGzAaSrP2d1HVH3UIk 7QYDqFlImJ4btgPjvTV Vnf1doEYFfVYh8AZagV KejnNP7UWYgL2cdbbUx oHrywrAry9dvhgLbssJ fCWBiVSXqDiOeO2lrzw EqhUpbzqKns1oqozDue jWyOTElQWDwThPnF3kq vaVaxsvboiJup4bjujP ydzEwXGJyZHJjZjFcY2 rcfbYlBprwvgCzg8plb mRydzEwXGJyZHJjZjFc U8j7OQK1JPi4FAIjUoO lN0xzjOyeWGWsq7ilTK UvUjS7DIdyWCdejJz5M jBccGFyZFxpbnRibFxx vuclVNG7YGoxATjryIL qh2g4nFuzW8TdrSzfZO JkXGludGJsXGIwXHByb 6ViN2Y7VALoUXvzl5is ZSRuRFhhk0OwBEkYQJU KVW8QRD5lqES8RCgYMO ZBC4bLkHU4SNS2tJTcs DEwfXtcZmxkcnNsdCBc RlIcmO5QxSKyuoh5PAD rLJifk8gdHGUoLQria6 WoJXpQDRJSED5MYN9io XX3PEbRQCOCWWshGcJp XebfERjyRR60BUYgALO jvDKpPUrjJ659SRYlDZ mqNJDwCqWtN9YzmQugy jNmpMmot3wcuUJbCRsn RSVctHHbPFa8xMy7NEZ aZdyePHWuQAQnI0IejG Kpr90yASOvT8YvtT7eR rmfJQXdeCVsr5VspTSf pXKkESi7sqJoFGAabPB ctQKfKDKhvLP4GTFydS MgJGTcZ5w8zdFnQCPaD IKoI5xjctZonCyruqBx q5jwqyJhvyLhKGKtTWW dObFvK8wranXfuIatax Xsa6aundTwgoOrZGNhX OGqCkKwJ3lvheDkglav ezAjq6egxtXlifEqXXC wLLPyOgTwO7qfxtCwOi khcbIee2ggghUupeZwC ZDwIIVbQzApL8j6NHO2 DJo1QWIjRyFaM0xmrKg aSCZxy1wcMLChKOneDV cvTNvajYH6GJWoF9pmq pLogClrulHth4oyjxDq zyCePEAnMYKaKaGyQ7l esxXxdVrjecYsm8nahb RydzEwXGJyZHJjZjFcY 6fzjzNuqegpytCik0zt cmRydzEwXGJyZHJjZjF eF8lyybDtNixplvVgq9 xicmRydzEwXGJyZHJjZ sZkA8q6DFN4KVc5FFZm KpBmA8fypZpyPEBfl1y wQUJcDwC1TZmjSHoepR g4FeSypNGqLYntjsNea FxxclxiMFxpIEFudGli k8W2BOPsz79bYlSdO1Z sbFxwYXJkXGludGJsXH Sod5GgY6Y8RIJhOGnap 7rgQXRwDHuem4NbNVuL IWZRUU7KXS5wyKA5DWp OPWXQL5eJqIB8IDQmpP ExfDExfXtcZmxkcnNsd JIfXoGbyP9YWjSrHcEx GZKgX9Kqk6zamGEtOYz cInqlpKAgywH6GPlYCF RUXBtLUsKcWU1wXJuMQ 9CXJuN4UfQrTUP1GTR7 STY0o4mdzEUwt9o6UKr sHFY0sRsofFBbacdfTL FiPgVsU2PzuBkzenJip Orkf4joeOUay6VikBLw lQI6UWz9hhMuCXGupCS bmAPfXWQknCM1UKZbqC XqXOZgR6d6jbXdYHShB DOhO9xfjiTpbDykciSa y2bflhMlzxWuAJUaZBN dSwXmU9xcgeXjcUfxsb Qgf1apudUvqlWsBGNdV EQcBtHfW2qlqvIcbish fwMwm7sqbjNigkMxTWA bRCAkAmGiD9sbvqEcJf jecmQzl9cxtfYtfrTsU KJoKTVjLoIwU8f1RJE0 IAs0YOGkAuBvQ3havXa kDAKqa2jmGQFkNCccAC dzKIqruPT3LLHoT9cwc gIruFmhpvCpi2bcleFk zwSlORWlMXMnJfFcE1i ykmYicYoeicZge2mnls RydzEwXGJyZHJjZjFcY 1uhgmCyosqmydYuw7cg cmRydzEwXGJyZHJjZjF pC3xlgjGeBkvptsUmk2 xicmRydzEwXGJyZHJjZ cTmG4r4UDW0ODf5WSJo YvHsD8njoJhmEMGkt2t jVRBbOuF5NQcrEAzvvD a4YdLnvXRoXRgjqsDye FxxclxpMFxjZWxsXHBh nkDhsK22TfaneYSHf8G vfHp3EJL7FDCvENMsUJ ZyIJvmdqRBg4PvlKf0L TE4WVQuGJYoO4OrkMlv czSmnLvko4durNOza1Y aqNRrvRJqWCt7njLvXI YnyTJroVIkBCQpaDS0O IWqwPAiNFLzO2n5cdYz SXAwAIClZ9vfksXhiGl sbwFsk8ofltOzmcEqGW KbKKGrHlKyN5vxpzPun ZruihXfw1vkkiRjhkWd FPOnPFPqCpIqZ7szniW dvxhwysZrc2dusaUjsa PzLLIgNOLkYhUkX4ljc pKhLnjbmwTqi8uofuHk hyQqBDWuRACwEiSrH5g 6KDF7WQw6UWFgLeXpK4 ifvStkDOTmy4vaJFRmE HviBUpyKXxecYH8FDJk Y6kwcsSolZxypgSiq2n icmRydzEwXGJyZHJjZj AmC0yelzIpuWtxgiZjx 1xicmRydzEwXGJyZHJj RcJsC9zbduGdebeifpQ zn7zxdvUepwVbKCIyHE LaDvIiY3fmivLkGqybp bKsd1fucqKplgUbWWRs GVErNqUkU7k7XOK1KEp 3PFAfInGtB6vcnCnvQH Tpa7kdQWCkPkE1KCsmM KzvvJm5GbJogXAjONls bnRibFxxclxpMFxjZWx xQUHyriQmaU48ZqvgkZ TPITEspcKaS5V7AYIlp HVjopPjuDJvpW1vKRPm gDKKUUYul9muQCPmZU2 yMFYgKWK8EUFabWpslB 36Znwapr09UFOwq8eeP HRycmgyODVcdHJwYWRk ZmwzXHRycGFkZGwxNVx 0cnBhZGRmcjNcdHJwYW AuewI9PPRiCwTjgxJyH nJkcnNcYnJkcncxMFxi hcLoQ4MkQEQyOmUnmtb cYnJkcnNcYnJkcncxMF kuzgDlW8UpTGMsCwEqv nJcYnJkcnNcYnJkcncx UGbetbUfH1LfNDEcRhQ kcmJcYnJkcnNcYnJkcn lyAKioqzJhN1XzBCShz cMapLAkrQweiZE6q6lr DYPcT1kpbNsMuTN3kQO 2TWLyL0YnmJwxNFmkPV NsYnJkcnRcYnJkcnNcY wXvablrNJeskpUaD7Ry XGNsYnJkcmxcYnJkcnN cYnJkcncxMFxicmRyY2 YxXGNsYnJkcnJcYnJkc nNcYnJkcncxMFxicmRy D6TsTZYnRzLntnMhVjO kcnNcYnJkcncxMFxicm SeS9StHUEcjoYsnQTag PlpdPZ8t8vxETDnW5bo gUvQpMB3aZH2QAOuR1M tzVx3IUUcVZWsnoSvvR 50YmxccXJcYlxpMCBSZ RZ3aDInAlGqO9BrlCwo YXJkXGludGJsXGIwXHB vt6VcZ6D0MFEaFVxob7 haUANdYNspq2QcPUnPT LCKAI0WTN4dwRE3YVxX YBSSD7fZpFF2ZRTilHG yfDEyfXtcZmxkcnNsdC GrRqRrzD2Ih6TubZw0H XkmYblzmEF1WBqrEkrq gN0ftMSBOZINMujQToh udwBmUE6KAMMBQR6CgA D3WYMtjFZvoEJngHnaE wrcuzBorEFfKbAowC4c cKglzO5mSoFtDOgyVAp nVKuftOHrKYGwj3z2tq 78YRx8xaPvKibbGARfv RCsSSZeB4g3zwSaVHGa MTVcdHJwYWRkZnIzXHR ycGFkZHIxNVxjbGJyZH N6PPOkLAOfGWYvECD6R TBcYnJkcmNmMVxjbGJy ZHJsXGJyZHJzXGJyZHJ 3MTBcYnJkcmNmMVxjbG JyZHJyXGJyZHJzXGJyZ XL4DJGnYeHybyRgRBls bGJyZHJiXGJyZHJzXGJ hPNU4PATmAeKgjlRcZA xgjSUjckOmsXOcO3zuf VJQpUX3nUYsX6f8A4il sBjdKEdwVOCwmYa4UMu 3BQhudQYnBLC3RNVdMF CbBINnIDF0SEXfEwTtx mNmMVxjbGJyZHJsXGJy WLWeMBBfSBB8YHTpNeX kcmNmMVxjbGJyZHJyXG RqRKSeJELhTAI8VBWtO nJkcmNmMVxjbGJyZHJi ZRVuAYXeMGPrZPK7UID cYnJkcmNmMVxjbHZlcn DtmJFgZ7vhkBTXxXY0e RCcQ6e5K9aekEf4TYrg HEFdvIo2BMK5XXgsKGN kXGludGJsXHFyXGIgUG JqN1SwmJQWvMEnojseM sddF3XjrDhvRTSzHUhd vNGsCKPfBWIgh9ExI2R 8FGGoHPdhu0tyYQDgOJ bnm2VzVInGHOMCEO4RR H2taUS1DUdKPLQHF1vT zTY7VTH1cENzrYGwgLj cZmxkcnNsdCBcJzFjfX 9qEMAoL6JWPDGoPMVhw 7ReS3Sxt0vtyUEfCYhh QcputWTugeF2NMcYDTI RODvNVlXzXX8xTMxJLH GHPQxBFnblVA07WANvY QZarRJcTIziM923VPp5 LMBsZAuoy1wvIDVyUHi xj8AzZQvBQAOORV9GZL 5sbJD8K4kJQYUSMZrmA G63RSXvSNMpgWRaIFvw U664QKVlVQkdYXGph1S nE8AeQlKqUESzJWhtQj yavSP9CRrqXjqciA0ci CBIWVBFUkxJTksgbmFt FO8GHMSIZC0YkVM5BAI 1fDEzfDEzfXtcZmxkcn OltKSqTfPolL7hbJify X7lRwDnSPqmZNvbTQdk jALhIMBkq8e3vk76UTj 0cnJoMzAwXHRycGFkZG JlD1k8eqUjGSDsHLEfv HJwYWRkZnIzXHRycGFk DZSeVBoyoWDyHCU5WWX iDYPwWMWqWIF2SKYsOg JkcmNmMVxjbGJyZHJsX QFxIPEyMAGpBCL1CGUl YnJkcmNmMVxjbGJyZHJ dXBHiFKZjDZNeDYP9AI BcYnJkcmNmMVxjbGJyZ HJiXGJyZHJzXGJyZHJ3 MTBcYnJkcmNmMVxjbHZ eblWhwXMsN1dokAXHuH S9mNZzZ3m4W4ewnBzdY LntXXWuyNx0GQe9AXsp pOYyLLJ5QGRrSBFcTDF kHNP6LDMmKmFesxDmSZ xjbGJyZHJsXGJyZHJzX HIqPIC7YFVeRiFahlWj MVxjbGJyZHJyXGJyZHJ yLUTdUYP2QXIbWeUhrq NmMVxjbGJyZHJiXGJyZ STkUYUdUBN2ZEPnYkZe cmNmMVxjbHZlcnRhbHR lL9jvxSXTfLO7nHMrD0 y3U3lewNt3QNxuEHXnl Ix6HWJ1FUihQKGmSUwv zODbLSAuUCHgQ5LmiPp wYXJkXGludGJsIFNlZS Jtw61nDP19PJLliZhlt Z48Hichqu15ZJTgj8ef XHRycmgyNzBcdHJwYWR kZmwzXHRycGFkZGwxNV c5wjEaITPgklGkcTQzB BFwhqP0SAQeYzVplmOz YnJkcnNcYnJkcncxMFx xqoSpR7BrBDWvKpTono xcYnJkcnNcYnJkcncxM FhhsuIbI3NpUYCcKcPl cnJcYnJkcnNcYnJkcnc fGMornfIhB8QuDWEiQk JkcmJcYnJkcnNcYnJkc qwhJUpbahOpU1MpZVRn xvYrcIVkfTxkgCJ6o6d iVJCrD2fkhHpBtRQ5pH Z8CTBuT5KekMygXPvaW GNsYnJkcnRcYnJkcnNc HcOxcitaVHspxePuE4A xXGNsYnJkcmxcYnJkcn NcYnJkcncxMFxicmRyY 2YxXGNsYnJkcnJcYnJk cnNcYnJkcncxMFxicmR iD5CeNHLuOoMinxUjWq JkcnNcYnJkcncxMFxic eQxN0RdFMRpkbPhaFOb vRvqaQL1r3gmVKPeQ8t nsWvRwGA6aHL4TIGnM8 RioHo0VLCqFQAkxhJkh C16KgwcxGTtQ8AksQll SXJfMZjpmUDsDFVvw1W nN3S4MMDtDKdue9esEX PnOYbqc3YmFLcPBLLLI O4NRS4xrVF7MWoFJPEM G4wHbUX9ARY5nQY7gLB 1fXtcZmxkcnNsdCBcJz IivR1LuUIio1LeeVM6D CVpw301if7idkDzaoEz bWNpu0IsiYGrgjT4yTW nr3mxZJBro0mrcCZcKX jrVdphjHYydhV1MZsCZ FQAQJdSVoUoRI2sEVqC I6EAKgT1SzYqZrG9GTA 7VXB5v5slxCAvp0n8OR elASQ4fWhfaGBvlyqzz uWpEOGieBfpgW58Exkx pz42FGEiz8cyXGSqswa fGcDgeVOcgKMav4o4oa BhZGRmbDNcdHJwYWRkb KH0FUOphHNqDDLsV2e6 iwNxGUVmYFCnR1wqeiA pmRenphGfk3klsrEvzr WjCBUwKNPqJjXyB6dvc oCneJtbtsEnk1zyxkAx abFnIQLhJGLqJvOrZ6j tumPzxghmsnXyc3svwi RydzEwXGJyZHJjZjFcY 6tfhuCrFoxoyuPdz8ib cmRydzEwXGJyZHJjZjF wA6v2GPJ4FQx3ITHqTm TdA0bpsSonLKIyj9vqD BXhMEu4SWilCDoyrJF9 VMAiG6yidrFodBhhegZ gp3uiusOzssBbLSCjGC IzHtEjM5zqdxSzcVsby jPse1czjlJvdfOtWIQd NNDlXoOiI0mzdgVvpmf qmuVwc0gqysKrczYdKW KdBQTjOkPaU2aizkFhJ irjupTex4sfwuDhxcFo NGStYHLrZdNyL4l0WAQ 3MQu3MUUaBnEhT5lxfR dlBAEir2izFGDhKgJ1N XtjDJrbjUl9EqYeyQZt ZFxpbnRibFxxclxiIFN 4ISmcnA7hFXpmyYHoo7 x2wCfqT1TuvVehJHNtB MubxDGzEDQhIGWte9Mt R9T5EOPiFBavz6fdUUS jUVwob5EeHUpRKDDCUV 0IKL7fyRZ2OGdPBWDQC 4mEtFI0SGRrzXV0iNI5 fXtcZmxkcnNsdCBcJzF mtV5UiWItcpw5AZTvTI fop5pnOHEkQLkai1ZuF ZjJLOYSGS3IIY1dnFX2 TElTVEVORHwyNjAxMnw xKkulVy18RKIvNSTfaE QsWZyrJ107FNAyBNhgQ XQjMuCvU0LcoUhhflTy hGcln5secOQdYOdhTYP dtYPsWEe5mXi6FRFgGm xwYXIgSEVSMjogXHBhc um1mv70EDa5toNhVIOf pFRahWPnKTEjtKC7MRM trJBhRCEwZ5k8ksUvAF BkGGQsM3thixDktKuqo uWgk5hmvbSsfrYvCJFg XZVpEbHsG6yujsNrlJm vtqDhy0okhmSvlwOtOX YsVBCrOjJdK0vwlkKnp glepvPjb3panyRwmwMi HIKlGYXjTvMsL5cnmtO kScwfmwYlf2motpOlky RbXKQaVRKoKwVxT2v0O JO7GDv9NGXxsDWeqZT9 H3ejmQmlMZfijCG5o6f tPTIlL6qffHpOgKW0dD r2XFhgL5ZbzRj1HOe0A AShhvKqlK91SmxvuRQl cDJccXJcdHgyOTcwXGI nMFugT7HrPYZejDhzk8 A9YEJgm64sWzysMBH9D 8KcpDylgq6cYPW4yOFt yQAnVFCrhw2zuATrNEd jcmEmxOefmOJrPcl4yC Q2DlDzEOW6CReKLI82H J0nUUDtjCn9GWuoWX5m f3YxPXgxm5ptx71nn5P 0YWJsZXNccGFyfVxpbn IklWcenWOuAbo0RGdlv mVzdHRhYmxlcHJvcHNc lFPvf4HtvLRahWOwy6u 0cnBhZGRmbDNcdHJwYW BqzDF1BOWviUYdVQZhP 1f8qbEqHIPzUFVkG7wk zjQcbWdvpiRvr6agxzI ydzEwXGJyZHJjZjFcY2 cyawNqnJqbgfPji0umc mRydzEwXGJyZHJjZjFc A5ottsMrrdmukpYnj0x icmRydzEwXGJyZHJjZj TlO4asjhXcOmavodUzv 1xicmRydzEwXGJyZHJj PmPkD0l2AZE7RRd3KGP bYeNrQ9amxWxnZOPty0 lcPTYlZUD1LFtpLVzmr WF5HxDoU8dgfwMqoAqv vzBoe6nyppXqqyTyMJU qFNPmLnWdR1wztgBptM gplbHae1tjxxFjucJuW HUlLEXnJyOlX5rtpoHd lwxsfzOgi7dcwvYcckG bYRYbDRMkMlThS3skkq KkBwisamQuf3cbxpYct mAvGHOaFSOfLyFwQ6t6 IVX3ZOn7JYBpCqXcN7p xvPzkFWAlf2pjZDMeFr qiYKhfYCnmmBp4LtQlf kNbmAIqo238YP5qtmFl xQUtGvwcm1mgHGK5bDj wYXJkXGludGJsXGkwXG NmMFxjZWxsXGludGJsX XOds6y2cf38TEv0weMn IUNvMUl2yuEkMPYppWZ rbSWpTWDugUA1HWWggL EjZUWxE0n0alWgRUOrL EOrD6tqjiYwmBnnlzQi z6wtkbVngzVpCONkSQJ qAhShP0ybleXqvLclwm Rod4seoeQcekQiNVRiV ILdLkStP3babmSqmuxs jkUix7gahqTzlrGyULV tALPmSbVtY5fdweLmZl lnpzYyd3ilkwDjzpBdA RQmZKAqSjKtX0d9XVM4 RQa2CMFggFPktFW3Y9t bkCpwLQuslZS6e3wqVB YaN3zidAyPfZW6xNe7L LrnS0DleAi1FPd1DRCz zpSyxF46FvwjnBJyrED agaBviEDuiIg2DE3pwk IspRCnGocsw9alKSU7H WTmpbQveO72WttojHVx yDIrsRijKeZbUV4yjPW etqVnO3HdGMSfMISnMU Xte6KiMQuwaFflV6kwY 4HiIgWkTY01cPOgEW4k bISzVW8eLKL9XJtqdW4 tTCTbXVOxxRKfB93ngD jijPEbVTpxqSAjs3ObS YLhQSN9bEWbjK6sFjMo EYLjQvH3qJ7qxjUfICv adsWpH5SucyYjZdcoKl ZfSaQoEFCkbnMnF8UsB XMgYXJlIGRlZmluZWQg SXMdjVdzn8Fnp1k3cLB ubyBvYnNlcnZhYmxlIH B8TAabqJ0yIOCkizJbT X8rdrUvEMWjmZQgqasm GoQ9cFH3HCwiZUugY89 vfIvjbEXpXL4sHLqdZI HubC72L3DtrlOknQVbI OSjAFL8hKPzXGAqunYl p0p1qXpdDPcwx3SwxZy tdsPbtkDhaLQfxAM1yc DcYDJqo5JdgLCll3RxO 9HdeQTmKYLbg3IlBWEt FF9hSJndT29ttNmuhNT ofOIiKzNpzpLwo1JcwF 5pbmcgdGhhdCBpcyBmY AicjY3uOPRhfZdinSQx Z9TrvDjunWFbEF3vBBy pdGhpbiA+WSAwVI3gRF W6wL1yFEWzfUwjHBtDI 29yZSAxKykuICBFcXVp ch1cIMrew5SvyF3kDRU abb5sxoT4BMElPRYrbw ImbvXsmUevu1Kbx8b2t PJypEWepW6gJYZslfJh SVinoJTpAdWcmbXqe5X upJ2meqctaTynwFLray BpbmNvbXBsZXRlIGFuZ FYshtT8ZFJfPK4hiH4h MSEjgQRfVY6wFFcgtZr pbiA+GIHcQR6wIGR4yF 1qSCXrqRgoUW4mOMDkt XBsZXRlIGFuZCBjaXJj vZ3hUOTwywJkWHdqxQE wGyTxpoXua0XktV8ikb cgdGhhdCBpcyBpbnRlb uElDJFlJXH5iZJjzH9v iNMxywN6qPZrWX1qZMF xdWFsIHRvIDEwJSBvZi P6sV6hjrGqGWblwmEaT 6AvsyXzJojuCoetPHB3 B4VizKjkza4pGEQ4eUN bbWTqUDXwke6frZ14Df tjrFAnoKU6k0azYS9jp 0Z3HJIjZWVum4PrHPZg m9vfLGAhmBOuQVXbM4r 0cnBhZGRsMTVcdHJwYW RkZnIzXHRycGFkZHIxN JncxAVnEWW4DLQqKASx TCVfSJE3AVBmOnZumyI mMVxjbGJyZHJsXGJyZH KxWBFrMUK9HEIfOqBhd mNmMVxjbGJyZHJyXGJy XTZpDMQxAJJ9UTVrJtU kcmNmMVxjbGJyZHJiXG FsJLEoFXIdVUW4RAGeG nJkcmNmMVxjbHZlcnRh gPGzU7oqxHRLtJF7tAE mO7c6Y6rutOreBuSnY4 OxyTqqArXtV8sfzeZbt KrffpJei5yejoTlbvDe UKNcXORuEkXlS1qretC urAbrpyYru2oqwoHpsw DbSCAyXFTtZzBxD9cvu iApaeusivXzm8rdxdUn ksHdPMOmXVNzOwFyO2v szxJdDbqiyvYyz3apph RydzEwXGJyZHJjZjFcY 3b0YQN3PDq8LNUqXqDl C3dxaWksCQSiy1iwSKL vJER8PHiqXBzgtEm4Nl LszdPzsPYzh470VV9ro fUfnLEuOkiqh5sdBTY2 fVxwYXJkXGludGJsXGl 0YXAyXGkwXGNmMFxuZX J6M2BjzRufku1gTSA1i TGlzRLtODBvgp4sbHYb ZFxpbnRibFxpdGFwMlx pXGNmMiBSZWZlcmVuY2 X7IVlzmLTqHAY9NORwV kXRQEMijI4xV01fi5mp CaQ3JqHrFK6mDjkqCwM hZQesVYH6P8OfsQohcz 9kOFM2oSSblGGaIDXno q3ufW76LuerxDKfjOC5 j7biOE0xv2Y5GENqTMA gd8CxWCDfl0kyLBzjh8 Tbp5wxvBNhBJUtKukmS JBlcITcJQpyCGa4xxCj ZGRmcjNcdHJwYWRkcjE 1XGNsYnJkcnRcYnJkcn NcYnJkcncxMFxicmRyY 2YxXGNsYnJkcmxcYnJk cnNcYnJkcncxMFxicmR yM9YzXTMbFvWqhzBuKp JkcnNcYnJkcncxMFxic uFhN1DeXBWwEvPnvwNt YnJkcnNcYnJkcncxMFx feoXoW6MpOPNmnxLxsI HvqJcmyWO7r0vgJBRuU 6qehWoReHL0dGB7OPzh QUhcyFA6IOtyeKXnJUI 7QVDnETWlGGOeHFF5NZ BcYnJkcmNmMVxjbGJyZ HJsXGJyZHJzXGJyZHJ3 MTBcYnJkcmNmMVxjbGJ yZHJyXGJyZHJzXGJyZH R3PKYhVtWltlHsEKwur GJyZHJiXGJyZHJzXGJy AEZ8SBQuVpMtezGfXDu qyIZbywMydCGfQ8jzlY YYqFG6lZHtJ5k8M4ohh Hj7MBmeNGCeyWw3IQRc DThuNAH5xw33kQjdoy7 uAFO9vHGfwDEhPMOgpn 36XIWirdUzoP22Wxyxl RXvT2IdEWTbdLksxS73 Ojyenw57YUFfe3poXRI ycmgzNDVcbGFzdHJvd1 k6wjHdIDFecASecHPwJ WGgxLC7YVUmnRDlITBn W3m5vdTqBBBpPCTuB4u onpPrrCdhbiUgm6cilp RydzEwXGJyZHJjZjFcY 8grtrPkjQycvcYyw3lo cmRydzEwXGJyZHJjZjF cJ8funiYizwlfvcWrm8 xicmRydzEwXGJyZHJjZ tCsU8hhipMtPccpbkRd w1jxgyBwrjZiWRKhEIS tMjJrH0x4CGY9VZb5EN EwgDEavWJ9N5eqeXwuY EtoqQV2a0woCXXrQ9qq fFzBqBO7aNv2XXrnP3S rmFb6YIs7AOKrehSzfL 50YmxcaXRhcDJccXJcY qtfDcJvHfRghOo5gkyp wqCssWHfkLv3YY4rwzK maVMnUgtvd7aoZKS6MB DcttWvuA88OtwifRJqy DEdCnLfM5YoFHPws8Mk J6Y2ILJpDIjcm9mfEJB gEKagm2GpZLlGRXDEBH 4WDU3kxJQ7PQqIFUQFY 1gFkVW4GUD6zNL9eFX3 fXtcZmxkcnNsdCBcJzF usL2EAZtlcGe1XCrnLt bnjCQ4ILhrEzvjhJ8uq CBIWVBFUkxJTksgbmFt OL4IUSQABO3EbVU9DEO 4iVU7hJB9kJnoWnalaj MgpJEbJjEwtQ7tzEbyr U9lAcViPZapREK7G1Mx gAwxwe0cTGY4jMFaqKQ iIYInwe2huC41RhvsbC NkuYM9e1prEH0gm1D2E QDxTLVcv6JgQQFdu9rv XHRycmgyNzBcdHJwYWR kZmwzXHRycGFkZGwxNV w8vfDgIZWabwVbjATuE TGakhJ8QXPcAzOioeRg YnJkcnNcYnJkcncxMFx jtzMuQ8DqFUWaZtOrtf xcYnJkcnNcYnJkcncxM HmaagJcO3KvGPQlTuWg cnJcYnJkcnNcYnJkcnc rROyezmWiS0LfGWRqOp JkcmJcYnJkcnNcYnJkc ufgZKgxraCjJ8CfZBJs niVnoRXpmKnmkJN8c2j uDBUzN0pqmHsVtPI8eD F3ZPreB7OobKtrIJahL GNsYnJkcnRcYnJkcnNc VhRosyjvWPyfeaCwA9S xXGNsYnJkcmxcYnJkcn NcYnJkcncxMFxicmRyY 2YxXGNsYnJkcnJcYnJk cnNcYnJkcncxMFxicmR iH7CfOZSjBeXqoqItWp JkcnNcYnJkcncxMFxic mFxM2RcIRFpaeGqfMHl rYebgBJ5m3leHQXmC3v vbCsZyVD2rZJ1CVdnG3 MzjRd2HWGaLM4qk1Foj 7j4c1vou60iz4B9IHEp NRLpkXAosH1yaSZiYHf pbnRibFxpdGFwMlxxcl cdSYTvVhUELVYqNN63K CP6AQaogM7vVgjuPQH3 L8ZlqPrnwe3cFLV4cKS uvQTdABRuad3tmPSkOV xpbnRibFxpdGFwMlxiM FxjZjBccHJvdGVjdHtc VtuzgNZ5IAzxShyxbF1 zdCBIWVBFUkxJTksgbm TqBA4XJNQCHmUVXM87R mCvFtX2AKi9SXb8j9vd zYOcy6a2OYtqEKP9wYr yAWHpDEX0GGufuZ1dp2 xmaWVsZHtcKlxmbGRpb pN0KBiTSQYHUOcLMxZa WT5eZOmTX3JCJuR1FsZ dMqP1WNw9WFm9s3dfiQ Rgo1g9OTuuMHD3dXcql CVunaxbypMkXS9fv4Qj LZyus1mub92ck9U0ONH sZXNccGFyfVxpbnRibF gtdZFsBzk2XUzmfdXzz HRhYmxlcHJvcHNcdHJv d7HwxOCqSDRuCckoPHL rtUXoZImzWXn5daPhNK AmnkYjvRCmGBEuzqR4V GNsYnJkcnRcYnJkcnNc DpFuwdzrMZwvtxNpS5L xXGNsYnJkcmxcYnJkcn NcYnJkcncxMFxicmRyY 2YxXGNsYnJkcnJcYnJk cnNcYnJkcncxMFxicmR zF4FfGTWzLfTngfPqFx JkcnNcYnJkcncxMFxic nJpD8KrARXbetPtlJXi cCgjmSU4x1jdWWCuX6c jmTxJzWQ2dDN3YXdpN1 VsbHgxODgzXGNsYnJkc nRcYnJkcnNcYnJkcncx KFnixuOfX6QaIMHgEzV kcmxcYnJkcnNcYnJkcn frIZtykqJbG3CnZKZlT nJkcnJcYnJkcnNcYnJk qjwrMZufnqByL8NyJCY sYnJkcmJcYnJkcnNcYn XbddnrRMdnmpOiI2QzC GNsdmVydGFsdFxjbGZ0 w9jvGIIlD2voxNcXhOQ 4fWE4PYrdJ1ZlfOo3PI EnAV1ht3Uuc5f2v3nmd 19hk4F4EFEqWEJxwLUe jW0qwUViTKtrxeDwzZg lzLWlEiwjtmzeKHE3T2 VtrXbaep9rNTC4vYRgh QNlUWVpfa0hqTIgMCrc bnRibFxpdGFwMiBTZWU lN96jwKIdzTkaDNM0D1 TyyQbczu6qHUK2bWMoo KNgEBBmzs3jzS96Yiko gDHpjMY8u2bcGY5tu8X 3VZKrAEFcn4VeOEXts4 jbURCtrWNlPANjT5g9u nBhZGRsMTVcdHJwYWRk ZnIzXHRycGFkZHIxNVx umCYaEEH5TQPtQUTjIL PhXUE5MTIfJsLwywAmS VxjbGJyZHJsXGJyZHJz UZNqYOK1THUbGuFrwiA mMVxjbGJyZHJyXGJyZH MsYYXvLNX4DXJuJfMzg mNmMVxjbGJyZHJiXGJy DLVbONVrFVK8WCNoKyR kcmNmMVxjbHZlcnRhbH DdU7vjlHWUzYR2iMRbI 7r2H9fnlLwyWVa3VSIr qNi2BBb5H2fsyDXzUBQ 8IDRxLBCiDWJqLGB9MK BcYnJkcmNmMVxjbGJyZ HJsXGJyZHJzXGJyZHJ3 MTBcYnJkcmNmMVxjbGJ yZHJyXGJyZHJzXGJyZH N6XGUuXeMpsyCdNPguf GJyZHJiXGJyZHJzXGJy HLX7LZScJtDvwfEqYAy dfKTksdZeaQKmS1wvvC LHoXT5wLDpA3p0N1jpv Qy5BJL0XZXacZr4JCTe GGywFVE5yx95gUvdaw8 pIXK2rNNijOWxNOOixl 68OJAppoOzeF96Ntapt XRhcDJccXJcYlxjZjIg Y5WpqqI4IZ0qv2VtAKb rh3pym80jy1F6XIUwEF NccGFyfVxwYXJkXGlud DYpABf0MLZwXHBzYWLz SXihba64JCK0z6otyGX gJYaaIxtqwYRjjeH9ZV gMWYLFSKnFKcNjQK1qW IkTA0OCHRyGKrrcRsAk QUkxSReuZD12INNqGII evJXbNWymI683QXpyQt zfqVK8DMcfOjvwfW5tj CBIWVBFUkxJTksgbmFt RY4FKNUMBI2JdFP3ZLX 2fIZ9vNB0iQmtVzwrfw UkvWIfAeMdrS6ofPdil C1aPpDfIVveESB6A7Hl aDktwx1fSQP5hLSdiNI nFDFbzy2rnG90EmgovF GffCS0c3wkLM3dz7B6V EOzRCCyb4MfIHWav8eh SJZoaSCtYHDzB8u7pdG hZGRsMTVcdHJwYWRkZn IzXHRycGFkZHIxNVxjb MXyIFN3BPAzCSNeUJMq NWD2TEObLxHpfgFuCWv jbGJyZHJsXGJyZHJzXG IhERR2OVMhZjMcznFlY VxjbGJyZHJyXGJyZHJz EMFiUOY1VLOdCvPgppZ mMVxjbGJyZHJiXGJyZH HnVNDoOGY0NSYgImMqy mNmMVxjbHZlcnRhbHRc W6dojYCZcMW1kLRfG7u 3W2qlnLkdGUr8JEBnpG i3HLu9H9czhCTwAGX8I AOrNXJcZCGgNFW3YCZw YnJkcmNmMVxjbGJyZHJ pUVWvIVTjUZXvOUS3QM BcYnJkcmNmMVxjbGJyZ HJyXGJyZHJzXGJyZHJ3 MTBcYnJkcmNmMVxjbGJ yZHJiXGJyZHJzXGJyZH A1BFVdYwKvfnPxLNxyh WIznbUcyOLuJ6zvwVDF zJI5tJVkJ4y7I1sqaOs 9TTX7WWTshKt8HEGaPO ntQJM4pn52oDwiod0kV TL4nGBdxMAfDAAcqj37 HNJciuHvmG62IvrooRC nqBLymkFwxGViyGl5UX 6dxfMxrNDrZdsgs4kmD ZH7VRGpryMtmM71Vyir kYYskDKqU6DnKJUliC4 vvqJjzmJxjNBqyLk2RL 9rbqHgdSZnBzqzx9qfO HA2BOlzsBLrYYb7VBXg y4diVyhmZXV5wRKckZJ xma7bq5c4xt20JDa8ty BhZGRmbDNcdHJwYWRkb HG0JQLfdZEpWZXwK0t8 pkGzLKDwTSXlK5ozfaQ mcSghsoGxt1brnfEkdw DsXXNsKWEsChVlG0trp yQmnDixauTuz8nhrnTe zkTsMAVtOLDvAsCxQ5k rklVtpcdujlUvv6usgg RydzEwXGJyZHJjZjFcY 1zpgcKrOhgaaqFmj4fa cmRydzEwXGJyZHJjZjF zX6z1JMH0PJk4PNExPu AoN7kcjNvnQFNbe7knC FHrJEu2TWanXFfyoHZ7 ZJUpX3kxsdBhlLwmzuH mu3yjtwMdviScKHLbSD NqSyYwU0pxivIzvRzut cGzi3hiigFgyzWuPKGe RBOlFhVrM8gjqgZtupn tsqCvd8wnbgCmlfMyEQ TfMZHkVqViH1hmwsKcI bqyplPbl0wiawVlygJy RTPpGDLeUrZcU3z7HIG 0OHb0MDLsPvErQ3trrA yyYFFpg0erFKRzZcW5F 6ljNRbrkVm7NbAvlbHm tRAes492GA6jlgZneCO vIysrv8seDVU3sXpdRP ChIPwwwBMwYQt1UYHhV HWkAVSpT3OeQEOSY4uz RXZhbHVhdGlvbjpcbmV vtCJaoPo1BW1oxhJsfZ FbMuouw4bmOSK0SVMnr mIhnN77FxrkjPEmnGBp WgEcO3EzKILms2FvS4K 4XTFhNXlsj9rcYNKqHD iln2SoYOsYYLAKJE4YE M9rcYO0FXjBBEASF0pY xOK3OAL3tPPvmPEdsGi cZmxkcnNsdCBcJzFjfX 1LWhhhIdiKJKZ5bOzaA O4flNKnYFPlkvIiyAP0 DAM2EVZhGEswc6lvFYF yAFghm5LfYIoQXRFIIG 3BVE3bsQQ6TTvSFXUJT GhmOyCzSYxqZKvoNS14 UMLvDMGsvJXlLVyuL60 9XHBsYWluXGZzMjBcbm VcjBJdcIl5CM7ygpVsn WTkZrgks0bmEBZ2HYcp lNSjDKa8FINhg3glWdw oUDC1sMMguMGuvz8lv7 n0tv40PPv7frDkSnS6M Jvaj4Bje7cexUTfPOVr ZmwzXHRycGFkZGwxNVx 0cnBhZGRmcjNcdHJwYW XjjfN7HABmBvFvbgYwM nJkcnNcYnJkcncxMFxi bcHyC0PcDFKlIvCwrij cYnJkcnNcYnJkcncxMF oglvGcG0FcYRYfDgIxf nJcYnJkcnNcYnJkcncx BDoohwYfO6EnSUAoFfD kcmJcYnJkcnNcYnJkcn tyCQufpzOsA5JoAFDar jInqRBmtZypiDF2m1uo DZHoF1yyqNtAxSX1kBJ 5TQjiT2PwpDlbTDnlQZ NsYnJkcnRcYnJkcnNcY cBqkbqbHDkjefMfK4Tb XGNsYnJkcmxcYnJkcnN cYnJkcncxMFxicmRyY2 YxXGNsYnJkcnJcYnJkc nNcYnJkcncxMFxicmRy B4QtLSZlOxRvtiKbDqL kcnNcYnJkcncxMFxicm JrM6GwNYToqdWhcMSlv CwjbQF1z7ekKPWiN4dh uQzObRZ4wGJ1AWwzJ6R vpGq2TNLpIO3xd2Xmj7 c0t1zla81vv4G1PGOxS TQaxFDjzM3wdPYgSVhf bnRibFxjZWxsXGludGJ bPSSow0blKOWaLOG5GH R2YIrqPBEmxnVOBV84B eneGPMwqlz4ts45BLf0 cnJoMjEwXHRycGFkZGZ hM0k8ghZvDACkABBvnX JwYWRkZnIzXHRycGFkZ QEeOSiqaLNbQVJ9BJZo JZCwHOMvQIE5FPSnKgQ kcmNmMVxjbGJyZHJsXG ScKWOdSEMvMSL7QUPlA nJkcmNmMVxjbGJyZHJy WXNlDIBnZUWfRZH8QSJ cYnJkcmNmMVxjbGJyZH KvTWWuGZYcGLWoQOB4S TBcYnJkcmNmMVxjbHZl spLrwIJxX2iieXKIvKL 5qSWeO5g0N3odmLpiGH hpGEYhdJk3ZQb0PRscw PRaJZA4BXHmIODsLIPu WCP3PTRvVjTbhnFkDQn jbGJyZHJsXGJyZHJzXG TaCQT6XXFuYzIwuxMeG VxjbGJyZHJyXGJyZHJz SEOdSTL1NQAoVmFgmmD mMVxjbGJyZHJiXGJyZH KiKOPaZPN0PIKrFzBbz mNmMVxjbHZlcnRhbHRc O4gunGYCgLX6cCRbK7v 5H9msoMm2GJkxCLHxtM m8EYX8EElaFHRpHFcka UUaYIFvIWBbRPqwRS42 zCBmFPkmW2rnoeW5XRd eQRccUHOzwbPpqO14Vk wgTUlCMSAoREFLTylcY 0OdoWoywiVkyPjcx7mt yGGbb9BgtEDraCSzGQc 0cnBhZGRmbDNcdHJwYW BhlHS4ZMWzhTJlYJJcH 6t6llSkRMPxHGAnA7qh vcQhaGypsmDlg6jxmvF ydzEwXGJyZHJjZjFcY2 csxyHytIaoddUmw9syk mRydzEwXGJyZHJjZjFc W6kjliZjawqzmtVgw0u icmRydzEwXGJyZHJjZj DsN8nmtdPkJosewmBah 1xicmRydzEwXGJyZHJj SeKzS8i2QNW1UIv3LTY tMlGpY1yxhZvvRBPax7 qdDLJkOOr8NUtmJKbnu JE0FOOzW9zypjXohCxj awDcb1xjiaYiokLfGLC pFVHuNyMaY7kjazHauM oysoUiu3zwugZecaTvJ JLmOPCmWkBfI0xffcNa oslndyTkr5unfmXwreS cHZDgFWUkTtDcS1skyv ZkNtkuywGfe9kmqpIgj eTiMZZkYICfJgFrK0m3 YBG7TUv5XGSmCqLhL4y mlQgtXNLgv2wzCCRrKs L0JXtqJVjfeQo7XrWsw GFyZFxpbnRibFxxclxp MFxjZWxsXHBhcmRcaW5 8TewbqOIBt1jmXN6igU EfxnHhZVD6GGaoINJDz 6DufmM9FJUWk6IlsNg6 EG3iJNggFkUqIVLMrLn sJWCaa8r6yELgZJ5zOp Q6HYftMZszTXwacGZnT VXpk7o2hg44MEd9irGt Nvy9YXJieBMdLRPgN5t 0cnBhZGRsMTVcdHJwYW RkZnIzXHRycGFkZHIxN EaafAGkOUD9KHQdJDBj PZPcHUW3YNOnMzTeszJ mMVxjbGJyZHJsXGJyZH SpPSDhGDP2SAAeBeTnc mNmMVxjbGJyZHJyXGJy PFQjOJAcJRP4CZVbSoV kcmNmMVxjbGJyZHJiXG PzTYHuGJExAUP5JWMdK nJkcmNmMVxjbHZlcnRh xLPrJ2pziNCMbHG8lJF uB6n2L0xxeGdqFRynXK PloUe7TQs9IKnmiPAnI LF4EQWqWSYeJDWlCRW9 MTBcYnJkcmNmMVxjbGJ yZHJsXGJyZHJzXGJyZH J7OYRjXsEdefKjJYfwj GJyZHJyXGJyZHJzXGJy KSU5IOCeKoBrplPrIHg jbGJyZHJiXGJyZHJzXG FlMZP9GVUkEtCsbqUbA OmotZOwpdGzsOUuI5wl wSEXsDL6vVPzQ4i8T3y tgNw4VJajANIxnNr0WY Z8DQjvJGJpINjbqYQkG HFyXGJcaTAgUmVzdWx0 sevzW8FqqAuoFZFtQNs ovNEjRZLwYOCpo7MeY6 Y8ODNwCAwih3cgAAScB Pdvg5VvHNcFLJLRZI9T CS4yyRX8KQnNSLWWT8b LeIF3RPX3tWNbhNLkdV tcZmxkcnNsdCBcJzFjf V4Ti2ymHGskZdXrc2bs aWVsZHtcKlxmbGRpbnN 0IEhZUEVSTElOSyBuYW 4aHLeUN8ELAdU9PdYwX JA1XlR6KqP8e4movSQb s7s0PTthIVQ8xLajlTI pblxmczIwXGNlbGxcaW 27Zkavgc51HVCsn8ndZ HRycmgyNzBcdHJwYWRk ZmwzXHRycGFkZGwxNVx 0cnBhZGRmcjNcdHJwYW WvcnS2IHHnMxDrktUvJ nJkcnNcYnJkcncxMFxi mwLnT7ZhNFQfMpRrfxa cYnJkcnNcYnJkcncxMF olnwMrZ5UyDHZhUnFne nJcYnJkcnNcYnJkcncx NSgwtdAjR3TxVONzQuZ kcmJcYnJkcnNcYnJkcn gvPIttjfDqU5SzFKCrt cCuaAXljPqorBI4r0pf FAFdS2cauUmKhZX6gQZ 8GRNvG4QliEcvMFisHJ NsYnJkcnRcYnJkcnNcY mKprwjyIUbmtyKeL9Ee XGNsYnJkcmxcYnJkcnN cYnJkcncxMFxicmRyY2 YxXGNsYnJkcnJcYnJkc nNcYnJkcncxMFxicmRy P0HnIAYcTcNzbnBmVsA kcnNcYnJkcncxMFxicm XoB8PrULOgcvGtzBEyq KubuIU0p3dwWHTjH4kn hTnCkFD6qYG5WyAlZ9D nvIe3RNGaIMLujzLozP 50YmxccXJcYiBQZXJjZ R53TKN6AMmdnY9rKzrw FJplGXBjeeNcsP33Ygi cYjAgMTUgJVxjZWxsXG wcjVWjSTPcx1t6mf78Z MxwUPU5wo14SKMtzUCw ACBtT4q6kqQvPMOxACL cdHJwYWRkZnIzXHRycG WqPFNkMWgmjBQtFPO1T GMvILDvNXDxJDM2SEQw YnJkcmNmMVxjbGJyZHJ kLRRwRPLaPYFxCJO8AG BcYnJkcmNmMVxjbGJyZ HJyXGJyZHJzXGJyZHJ3 MTBcYnJkcmNmMVxjbGJ yZHJiXGJyZHJzXGJyZH F2AJQyOsPcsgHaOYwnr YDbvnKuzJKkS9qzkYSZ dYR8lKQrR3d4O6fafTl oWMexZGPbdBc1OMv9MN rypUDiLVF2JDEeAZLdR MLpHRM4NLOhGdKhhdNi MVxjbGJyZHJsXGJyZHJ mTZTvOLA5SSObKaLsic NmMVxjbGJyZHJyXGJyZ VWuADYhXMF5DPGpVyLe NmMVxjbGJyZHJiXGJ eRARzAUVaIPF5AONkWl JkcmNmMVxjbHZlcnRhb QFlO2uedXDCzWR7iVUc X5d9T2rfqIs0NOprIZT yuXe9GZY3FHacJIXfLA fnlHCiCDTjRVVdR2Clt FxwYXJkXGludGJsIFNl RUFdo35cWS23ECDqeJp emF10Toowoy99SJWsrd MejRx3ZvBjWXUjdYGxG PNtqiPdqZn2CsQmGZHc ZXFrqdkhTOLfHqFIm93 tAZ99WeOksZQkYPZdMB NmMCBTdGFpbmluZyBvZ iByZWNlcHRvcnMgaXMg bKSjypUnN9WbEDVpIKF hc1WbUWMcNRTrxaOzx8 t3ZEIpdZGfe0XgdBxkm GFyeSBhbmQgdHVidWxh okLpXGA8NRSdne4nIRA vRBPsFLDsQT49EGtvNN I7FYC2QHpjgP5jWBdhj lSlYRGemO2vgVeqONsz xiOzoJEiIQ0hN8FkiOR qlZraUUQ4YHBxvZQrrq 3wPG0jVUYgILzuCAGdX VZzavVna8v5FAW4qVM5 jLSrADKrjXAihb5xHPT unvsxAPZqNeTOi277rv 90ZTpccGFyXGIwXGkgQ fPcFKM9MRJjDXHgbHZi pqO6x2AtNWGruwJxZLE bzy5ygrmaJbKunw4rox 6ipHxfUP5uaORvOLhis Hz8XHMjLXEkXRVlSKSj YYIxeKlxKDXxtdEak5F sTZapdwLnb6TgFBRqmT Cxt6MxJhMov2WmcnQoe vFjP1PlJFNotCe3AXvk w5NwgTgbdiX0KKCgs0F pcerkFbR7VXCqfy6dfO qiEYNsnUU0aY1yONT6K 8JqMMBaMPlwmO48iuCt m29xdG1qnNUojKXgTJ2 kIHdlZWtlbmRzLiBccG KmGJGgyqTOFcA0hUCjv 4CvE5woCU6xpXNdFUIv QX1mHxy6TCZtGu6pTCq fnkasyqJ2nVXoBDghEV wggWEsNQKjLX8iL2X8c XZlIEhlciAyIGltbXVu n1ntt8TiF6zomAhbOXb iZUmFDqoazuQueOv8ZI 0ieRE3rBEsjkJ8lTEbo Yj1GHLroDCod7QgfQKt YJZijLLwGP6uZ1F1yIU bGCYpsSLrx1OuzAObyZ YwcEJgCGsmtfTmw1gyt 88cuBqwqWDwwRCzaA9f kcYyI9SuQKHsTOYpxAX cVXCttzJjqsAyu04wXO EoPZPpt4Agj4Sft7x2g Z10lIEkFtZhE8Ehgnsk AQhADTJ6FKdzhN3rOXC oc3EzmBTuDZHdHTAnQl 8jFLliMDMuRPgnoMw3T DTythZwcDr0UXCbh8Hx GDMnIUN4VSWtJgweBDP ieSBhZGRpdGlvbmFsIH Ymt7FoZZ0cCWChvUUmt fZ9lKJnXKLniWHrFLAd nRQlWFCfih9aauwraHU kNMIvWhLbFM4iECSLix UwdkBtkFJjhP3lZZEvh S8mYN7eeA1vgCtqmT5b rIYvFuWNz7nsJB6fbNN tBYT7WtVkRcsyDjwmPM P9Wo0ssICqDOHtbyDNH xD0mMHss2IrU9acYW2h a8LbDR0hbGTpjbq1mYY rrSailYHzE5Mgj6OxDF W6ND5QOYUeQDXdw50zR ENpwmEfFC5ryXz5uLAg gSEimKfbdDdakqS6pA8 yypRfCNcfXjDsAq25xi HalZ2ujJiqEBTpJ52ta NBmyEkjXwEwTTZde3ks O5ecruBsc2O3PsUQjIW xMEIop2LkjYFzxZG8OB Dxj3OtEvUjvwY5UIkhC IM3BAWmd59lJUQrHOtb mSJfNACskCdcd0Kegf5 gIFxwYXJccGFyIFJlc3 FkpGIoe5ewpNgcQDBvL GludGVycHJldGVkIHdp pWwcB9H1bUlrfuUfzVK lhtV7kRKfdTzwBFohmG 9vZCBvZiBmYWxzZSBuZ KjhwSc3vMR8SH7xVHDs N3AuM4rusYMjXCUdRRP vzGMmzo7gQMKftamwKX VqOXT0PoFmBEE6AJU4B Xf2lZHlUwPrvKjnVEpx LJQ7VtIhQLs7tJDwZmX urNx6DUWtENI1RFu1AW p6eVE9MOBsmKc2FiNwI XQ9ZjotXTk7yZz6CAWw nHp4LzHkHNS5IXSgCFS ccGFyXHBhcmRcaTAgIF xwYXJcdiBTTUFSVExJU 1RfTUVUQURBVEFfQkVH WT5fQbToKSN5QN4rTeD 5AMRfyST1VL0sZaPjE2 mrSHLwMdUqVWV8IT8hO eV3LGK1hFT9OH3lGiRv BUs4VJTvEcRxVjZ3Ju2 zQon2ZbH3WEN6hWa5QV 4pFbJhEqouME1mUkG9U DEwfDExPTBfMjYwMTF8 XQX0FV1bIhWmYOfsJw2 zZipwCU0qIqPbUxxzOC 7tLbQ3LDRryEO9KSNtB wVkEPw5DNk5PA1eZpBb DPxiSU2zCwR9UWS5aWH 9YJOtAwWoPWz0EcY6OG 6nIqQaCJvmVD4wGORMX HATACrMXO5IINXJVKSP EE7JQaMyM5gXOOXVKbV fTUVUQURBVEFfQkVHSU 8dKQt8VLyeoXG6IZl6K KyYRIWRSRKRK23STRBG NQJFY8GCSHWEVIIOXQj CUWGVYp3ZQTYOLSFXUM 9CRUdJTiAxXHtCUkVBU 8NKEHWBTYlGVdBgV2Iz X3dlKE2hDFvbLDFPsZD 5NjX4TZGnEZ1wUGhFMe VSE4SQHCIFASjCYhAHu EYbaz5vlOBpCFmjdFN2 AmPjIQWapMQuw0UIYXJ TVFBBVEgtSUhDIFNpdG OmXBbrxKT6WuQhVMXaf PAtp3FORPZPABNFQTal FRmNSJslTUHyTJbdl4Z 9NjSnNVUqhZKsm7UAHL FTVFBBVEgtSUhDIEVSI STeXCGmf33sIZvzt3I8 ZuCbVVEquLKwr9XCCGW TVFBBVEgtSUhDIEVSIF Tzv3YbpKDXfDQ3YjS8I LV6CS59ILhNVcLKF1NX QVRILUlIQyBQZXJjZW5 7DBN6DIprfD0gWOeUeK Jwx10iqGf9TjXzWxDcs Mruf0FBCFOLXTYZRRnf SUhDIEFwcHJvcHJpYXR dFXVbvsCqz5qfPZuIcZ Efi98nyFq1XuKzJhOws VPwFGrYOcXMF8DYQSYZ LUlIQyBFUiBTdGFpbiB JbnRlbnNpdHkgTGlzdC A8MvErSIXxrRTjOEdXI vKKC5VDCMLRBUwPVyWK TyWXBpXIaO6nADQYiLZ 0DfK9UDFgKV0qIfs5Ie ZAYDJCNTUBOU1KDDRoU FHkJrOlrVw7IGdmg7Ya ZaZ0ADMiFG9jE4o2IiG XNMGFXPOIBK4KOXOmQG DdK8MrzRDVnLMrjzmjD qEjF1X4iQ0rCWzeDtI7 SWN4RS7jCVn6BpBBKOC NMPVQJH0VRVNrFWYaqh 7ydzstxVEeY30aeQSel WHmPM9riPhofcRyEZrc XxEkIcz0UODvp3UFYRS TVFBBVEgtSUhDIEdlbi YMdTNkyjUHemXoe5x3x FJGmFL8XBNcZpO0CFZt FN9xV5y2IpOBOSOMMBX FDH8GWRRpHPGtVqHPKR S6cAZxFCgfsEjcKuZaV 9y2GTije2RXLCDDYIAO VEgtSUhDIFBlcmNlbnQ vV1MjrC6bnvocVX7qzV thohWiXCttJzMbVRm8B Ooaz9QKXIAJAHIKLDgt HQnKPRegvyCpB3WfzdC jAMzdkQqoGlIvHBy8Eg Vns8YZXDXYMCWASPayV UhDIEhlcjIgRklTSCBM jGS0XkF4XNV7FL9tEJx 3PoWWLCXPLFTQKC3XEK KoO0xeDkbpDiPklBn2E Imnx8U6MeBuMNTxdTLZ AWSMBCwYHGOORq2UCMF YKLBDSA3HSdNeA4YZRS 3JCn6UGHFHDKDFIU8HH AcWHwXuN8MKWV4BKx8Q HPJBSJGLTL2GUhMdLTM VY6WFRfPYN3whFCOSDH OGYOOzMoHTWP7pRLSME Q0XQOAKUUSHZ51HNMGG ZRJOZ1TBRQ0= Gross Description (test h1ensIZaKZIykSRNUYp code = [id number]) wMFxhbnNpXHNwbHRwZ3 DmckuyWVytDP7wNP6ub ZgoeBBdoXAsFF5TTEKi ZmYxXHBhcGVydzEyMjQ wIPNtcFMqbBU6DTKmEU 1hcmdsMTgwMFxtYXJnc yQ9OYPziSGtO9TaUORz ZY8icfhlBLG1HRfdcW9 aavSUTnffBw3qsBWupJ tcZjFcZmNoYXJzZXQwX YSmxGgpXNKfIMe1zD0I LvyzG01gb9M9Dao7NBY iIYFeE3EzLZ6iORMwtH IdE57PQjalQTP5SNKJK nmcOIYgNH9Ia7joJFHn yVNvOSO0LDyhrLSmLBJ fXRVxCHe1DZZyFNwjqR SlFS5qhEsaBysloVmjw 2VjdCBcXGlkIDUxMDAy UGvqQUBgTI9WRmTxYRL vYaleOBsnERk2DBj3WH 9WUyAiICAgNTAzNzEzM BNnGHl8MWstCX5RXEs1 VsT4ATJtIsH9HJJ8AmV cXHQgMiBcXGYgQXJpYW wgXFxmcyAxMCBcXGZiI XjoQshtXPfpN80foYal fH9xGjymktQcLGL4ZJJ hciANClxwbGFpblxlcG ljTmVzdERvYzEgDQpcb HRycGFyXGxpbjBccmlu MCANClxsdHJjaFxiXGN mMVxmczIwIEJyZWFzdC uxedypsUSvSDOjI6y5F GJyZWFzdCAxMDowMDpc TmJxG1DwCOF2NSiniXn lvs99gLc9AIEgaWJlt4 PukQF0OONcy9O5ROLsi 8PeheByZH4tyZ8wQXAe x07hEUJsWZFjYBOvT35 azX7oyQJzM4VfKPIuVM KvByWnT69nuC1sVPnmm EU4OUNoPGCqjMioQWx7 SCF3Lf0twBBcRDMvhbO ACO9UDrTxTqFwa8Ocmz UpMEJcCP9wTCuhor22F LE2a4nweIWfBIfiUvib nORwnnX4XGwGDSMDDAp RNmXzQM1xLOdDVweREA dJTnwyMTAxNnwxfFVTR FC6EBjmoThgtCw6m2uw iLMct9b6TPtuRUR4rFL Pp7mtdRHvLNctJlqzxM KxxsD7JZlLXBHFCZpKS sOaXX0iGQiLNeoVBfD2 LtIhPHY4AWzJI7HNkKP 6Rwy7AXv9oMxaYzcbip LdbBXqInZGhA7jxKnpm V8wdLPhP2mkSzCfYCMW ClxlcGljTmVzdERvYzB sjxO0OPOdtRQtKIC3ZE 5kXHBhclxwYXJkXHNsL DN9DRcgfK93jONzUAHt MTZccGFyfVxwbGFpbiA MFfnlDjntjZgwv2ErhF BcXGlkIDUxMDAyIFxcZ DQcDB1HMdYqNOZkUxtv IKqyXTg5QTc3RB6IFwR iICAgNTAzNzEzOSIgOT a7SWjrIP2MOHq1JaJmQ NQ6XKL1OBE1JwKkVDCs MiBcXGYgQXJpYWwgXFx mcyAxMCBcXGZiIFxcZm saXAogS28qaVcsqQ0wT cphyyPeBID2DAMgvpRI ClxwbGFpblxlcGljTmV zdERvYzEgDQpcbHRycG FyXGxpbjBccmluMCANC lxsdHJjaFxiXGNmMVxm czIwIEJyZWFzdCwgcml flWDuOLRoN9l4QITaGZ CkbWOoVYrsFLO9CMNyN VVxQHOiJgO4DZegp1wd l3kxoZGiFxyszk1yPYY 8cVK6pAMptSZqY22jWA XhxsYhM3ovVeIdxb7dT DAuOGNtIHRvIDEuMiBj bDIzrjPyZM8ozPyyAR4 kIDAuMiBjbSBpbiBkaW ZhDYOcecmuVV99eSRuh Pyxh0XbgCa4wVWfDCnz IEIxICgyIGNvcmVzKSB scbVbSdHvYLUvR46jEE kuICBccHJvdGVjdHtcZ offdQI3EHeeZqmbcJ8x dCBIWVBFUkxJTksgbmF cZY2ROV4PGnOGXB50Ct ImGMM5OZvGW0NAxCI3Y mb0LDc9hYsrNhdmqkGs qSApThPFfE2APCbuJad edAL9IYgaIqkcqI4wnZ BIWVBFUkxJTksgbmFtZ E7FNS7JCG2XsQHoXNU7 hQZ7MTVTZiobaXD8tZE 4pM44EAGxIKThgWRgPN mrF695JHLdIJzcHSz3c mNoXGZzMjAgDQpcZXBp H87zn4UXq5EqXOOch1t vaApnd3OvqBXdDMkiTZ YelPPlDBwivF6dDoCpi 5effLf4PYwswvT3MINf un8qdXwebX6xEIh9UGk hCWRuV0RgT3KcAUfzZC G0TANzMbSnTRDpIQIND aUmWeZCTpF7OKC7BlW1 ZTi5EHTNFgBaPnSmXQE rGvmaJCHtQUo0AMp3BX tRIrT7RWZ8SwQpTvNuU MBzMGWeRDa4PRBkSLyd IEFyaWFsIFxcZnMgMTA gXFxmYiBcXGZsIFxcbm B0XSQjAOtnDAWqQjUqC CBDOlxwYXIgDQpccGxh rT9bCSKtV65jh2GGl5A mCD4SONx6fpVikqemdP 4wXHJpbjAgDQpcbHRyY 2hcYlxjZjFcZnMyMCBM xL7tpMQqf4BmVZLnIPO yaWdodCwgYXhpbGxhcn dnxYT5HAdvfJwfLtoaG ZplYgSgSTEvcJPwnZ96 VJYopuTraBRck6VypVR 7PULjz2S4SKGrp9Ryrh eoVE83JEHkTORxMORsB hTaA40jpB1ulKTbK1Jf WWUfLGYcTaS3XFWnKQe qSOWoYY8hyFBuZESpfr RcneAejHJahRLgoYD5K VKciV0uBnRqUHJfyFKq yFZnxVvjEilgcAD3BTr dEknpxC3lcRRELKKOQr tIJoqoifUeRL1MZV1JP sOFAX06KtPyLOY0XBnL E3EVqKN7Bjo8TQn7lAz cZmxkcnNsdCBcJzFDfX 1ONRxoNegkrSE1BGclA kgxpR8teVJBAABOYyhO NyhcveMuYM6MFD1FTH1 FmSTbTQY9gRW0GCGLUw tpnQX3yMK3iY45AFQjA XNgsJNlLHslK081UXHi SQfcLMs3kvXnPNWyDfF sCEjcOOZnR01ms3ITt8 PgMWAss8prpDgma3Doe GVuZFxwYXJccGFyZFxz mS6kOjVvn4qqrYb5YCq qawT1LJObsc2jbDpgxT 5eRVk6IFvoVBXoO3SyA 4DnYXfbYOA2GJIwLhQj XGRiICBPVlIgIiBDMzY 3OPJ4JcW5QDp4UFJDWw MgIiAgIDUwMzcxNTgiI Bh2SUs6VXyKTwC6HUJ1 Grc4WdfyBNPtMGGwYBq 0IDIgXFxmIEFyaWFsIF xcZnMgMTAgXFxmYiBcX VUuDPhhojN2MPHeQYbv XGJcZnMyMCBEOlxwYXI oCAchsCcveU7iSMGvN5 8cz0CHy7HxRA0IEMg5t uAqpyykuX0wLWUflfIg JWzrpKPxS6ptBzscEjI zIcWySLKZvxFax7HvQJ xlZnQsIGxlZnQgYnJlY XD4HFU0FYK7JQHdTUAr ONOqZpW4fXo7RS99ZVq us3bhMnepfv7dIIX8jA H0yHRxsDIzY90zUDNck cRgK9mcEvOrzo7vGRKq F4YgUDOoMYGsQVJnkYC lteHwLB5utUnkCU5aGE AuMiBjbSBpbiBkaWFtZ AUjpvgrFR69tJYkvKay g1DkrSx5tSOvAFhkJTW xICgyIGNvcmVzKSBhbm IzPYGvAHSoY41vUCvrX CBccHJvdGVjdHtcZmll gUY6EUexSkfikO4ylRD IWVBFUkxJTksgbmFtZT 7RPU4EEtEFFS01CmFjT EU5EIhEX8TCxSD4Kme6 TLt6kBwoNdojzlFdvVY xZxDSwP3CYSxpPzejbO S2DEhePfgewX2anISEW ADIHmkLVdujlgPkVC7P MC7ZLJ5WlDBfDIY3oXC 4KMXNNjzenKI3gBO2qD 17XGZsZHJzbHQgXCcxQ 615XAQlKPyrLTv3lhZg MOKlRtFtZNeiRCTqX59 ot1SQn9SrCGMen8lszK fmb1VwsJXrFUemGJXhq GFmTZysoL5wNtRqm7jk tVf1SIxwguK3RSPmam4 bfQsbjR3vTEany2uwWS I6IZXamWKafCHbGZshw PvkgA4uPzQuXda4EMgy RJTaA5QnA4VowtK0PGY sYWluXGZzMTYgDQp9 Disclaimer (test code = a7civVRzWBUuhBDfXpV 9844) vCEIzARDrf6mnEVKhsV FuZzEwMzNcZnRuYmpcd UKuQLNxHwChk1oqy863 gPTfq7vnULRjZxM9lIG kAKGvlOHqB565DAJuAT ecp0bfy1WfYIRudWQfw 3H8PZYKyoabvKi4aVkp X79ci3M3YykeW5bvUPG yZUCcH1OzEF8pMTWuYy s8UXG1DQN8QUBeARSeP 9RwQT5fQSBxqEGcDGw6 m0ivqOenYUWcDJX8f4m bXArzeeNvHB4rbj0diF n0v4mxqcNgURLzBYKft MOYSZBwJ3GhsFfjGj4u gOk5mMpnWmhePQQ4Ebh 7CR7fkw78ace2fCbeLA VdkmzwHuD6EWxsBMWmw vczBXk6ENppPKAwbYS7 FFMbpQEnU6BnRHGjYX4 ipra2DAU5FWypWXOcVc N1QATbqZZiYEUtvWvnS Cnma933FQY0OjQpAQ9u D7Tjs2P8wE6epBQaUWA bcUMaBvAnELPzoa5nfF KjOPqdn3SnVOM1kkQ7d BNocIRmLTMyCY21Vcim p7HvXqaxHDB0SHTlvlG qo9Ilj6vtJeBcsqHkQ6 mdV9FsZNHgSCHsJQSvJ iGkahXsy7Rcu1ZdiOCu wBg9o0wvMALhACWfhZh cy5ouHEH9DRIoK4P0mG Qbz0fiABxmMEEzmUH6s dA8MPOvvYBdK8VsiT7f CAXqMT8zwhs9g8ycHSN 7COjrFZVlArA3lsK9UV BcaGVhZGVyeTcyMFxmb 247GCU8VsCoEWCym7Ot X1KfaHqgX11paFgaR43 xZACzxUjbuE9vjDaacB 5cZjBcZnMyNFxxbFxwb FVuhjoqHKzujtU3NChc bafiYNVxOJzhW9aiMgG vANFdsVvsIGgkt4GqZM FjVONkOrngcjZ9FXXXh 73gICFrt6TtGHFclP1n fOMbPEjjycHmdJD5PKs hdmUgYmVlbiBkZXZlbG 8mJMCfAZ5uXOYqheAyr p6ijsUiVKCxIKUoL7Av cmlzdGljcyBkZXRlcm1 vrrGvPYQ2YRNCKS2AHL SrXGWgd74lAKQgaVixv D5qdDBuvaLmXNVjx5Li hS3zbSNJOERvH3seMP4 gIArir8ApiYBtaUEmwA U9HLVkx5YfRhKwdoFkc FDwzRGvI2SsaJozC6gh GBIyPCJeftOurLAae0Z pSAWkiPP1lHMxJM8UQq AZm71uYAZnCOLAyxLaG UDwnYxdtJS0crK1gP2j LiBJZiBhcHBsaWNhYmx dDKSzy728uz0nfdT9YR ZrLHJpdcjud5VpJDXdQ FTeqW99SASgDUUeuf0q jxwzhUYqsvVoU2Gcyxg 3dV7dFQZiQNrnEIZzGC ZzMjJcbGFuZzEwMzNca GljaFxmMVxkYmNoXGYx GGizP0ufAiEzArMkFht wYXJ9 [facility] Interpretation 2021-11-25 16:06:16 Test Item Value Reference Range Interpretation Comments Submitted Clinical History i1fugTBuXWRkk0zgACZ (test code = 19794) mbGFuZzEwMzNcZnRuYm pcdWMxIHtccnRmMVxzc 5PnN8WgLcWaQZugnxCw XGRlZmxhbmcxMDMzXGZ 0bmJqXHVjMVxkZWZmMH vvNl9mmSRvqYvxVxZzR ABil3yjzbZGhncknId9 o8idHEUwNqZ6kKKiFDv bJ1sfqrQutTNoZWDtML h7eY54ZMJfpV6ffIQcF BozseClXfF3OExtSUHs TnL1OEAmhRIrXXJdU7a yZWQwXGdyZWVuMFxibH DbKRT3sSqoo9H1qHMkl GVldHtcZjBcZnMyMiBO y9GeUDq8lUyzU1SbCER gYmW5yRYlCJVxXLjzOE JtLPJxmbR4lO82MCifb qB0hZEyt3Xgo53ov652 pT7otBCnKVD6SMYgLLQ cmYQsQYEtGGI6DQKfeC NnN2nmQXXbDI2idbuuH GwmGUcmSLWsgIH0DUFe oULiU8ZtQVTjMGpaVMP poty1GoXyCk6bnHCxaJ mlLOqcr5kum5tquZEvA xn8RHPnTrKxArzrHUra q7Mom6nzSWWmyq2zXII 5rMVldEiff9U8rPBiFT GesTFoxmRkAHDtFeN6U UueYX4jub46GBQvZFK2 tz1sjDSqjCrxyzQvdOX cWJduO3XpEQOgf479OI DpF3LjLAKaf1U4kuIvV dUuGWWimHP8fmU0XRGw WGn6tEAwexZ3izIhyYO bL1ajgD2rKTHlEE3ubh ydo2ngTBxuMVroFINim ER9paX0HVSphWMpD1Dj zF6vFVIqJSeqFLLnvrw 4ZjBrNh3vhHEkqMfwCT xzYmtwYWdlXHBnbmNvb nRccGduZGVjXHBsYWlu XHBsYWluXGYwXGZzMjR osSnvwVyudS9vKqZdLp CoGKwaZK4jQYVnT8wvg CDdBBSdQRAoV2siYhLx wY2aiYhuRMclrsLaXZ4 daX8zY4AdsLm9WOEhtv 3szDFcZPnZTUXtJB6er MbryC4dDoQlJuNuCkuh MR8lKZUkX1knrACuAAR vYIBmE4wjBiFkdL6dpW ltPHaboiDtYZHkgj61 Diagnosis (test code = 34) o8nfkOHsZGCulOW2XoY rBCPbt3fgh5QucYDeiL NtQOgrxSLkycMrkx19x CN5gL30UB6ePBEoPxR4 PWUtgnE8Dwh8CZBlSHY qcSUcN147k6vdo2lyjt JupOW7QEMnWIEcW3GdR P0fHWJlzKUsL37reOYf WNW4DIGsPZKcgCDgYYC sIZF8GTGylWMpW4tfPJ RwOX1cqyipFHqpUTfjF LTwgYB6CHOlgAXyL4Sv XNWpYEhhBSRzbht7IpB iCs1wvSMkgYzvAXacDO JkXHBsYWluXGZzMjBcY 0OsDRD3LVUkUBGohNqx aheiqIFsGOWbI2e4ZJQ yZWFzdCAxMDowMCwgNy OcgSUXSoqpTA92EMKoG OPtjQCeKzcrLF8vu5Js LRVduGSoj505alAfC9H pZGVkIGNvcmUgbmVlZG rzRJWah9EmbOleqCXnF GxpNzIwXGxpbjcyMFxj HoBeCS1CBPZDBjTnSFK VZPFMYPBQRhIUNh7GZC XQGbIGQxVVR3MiSCyBR 2VMRN6TUHZeN3WLGIAc MywgTlVDTEVBUiBHUkF ERSAzIChISUdILUdSQU EQXPbhY4cEQDLKBZWDA 1BBUElMTEFSWSBQQVRU NNXTZZDMJR7NKJPNARb WLKvsKV0TUEvFBPWJYZ RVQlVMQVIgUEFUVEVST sUoW6XMDNPPNW4LRjOp LlxwYXJcbGkwXGxpbjB ccGFyXGNmMSBCOiBCcm Nzo0FvMRAcQ7x5OLMpt UzvqZQcfhVgv3JhIPO6 JGEcJSHoP50sXh3lXZE aJ25jlJNerZCiaPHalM YhtfnvtNi3qdRgi1QxH I0qcEodTCXeU35mTZRc UVFfgQYfFeknjCJ8Zmg wNNPflTh0TpIouGlyXs TwXVVaIJUFDxRWU3pEJ FTDKLKPBZisM1QQZ5uK D92NQV2KUIAJVVRGBXr jOFoOUH6VY0rRFoGCXq FERSAzLCBOVUNMRUFSI LdQBIXDSHWgTAtPN4sr N5OXKFDnFBHZHPCYAQ9 NB1LXWQNSMEuTESEFUB UMNZJKJr5kSKMPKNeCR NWlO7qCVXRMD8dvN8GO REUgVFVCVUxBUiBQQVR BDRFFFOwFRURlB89LGU VOVCkuXHBhclxsaTBcb UuuLNztVZBkI8EbIXJ8 BTh4rXTkUL9sVKSdwnw eNNAvW0v9DNXzyFtuhJ FyeSBsZXZlbCAxLCAxL kuvN52zMCNxgBVmt601 ngGxT2GtBTTnYYUfwlA owgTjIDgyRCVde6UokJ pccGFyXGxpNzIwXGxpb jcyMFxjZjAgTUVUQVNU DFZNKjRGGWHWX4ENNyJ GGy4YEKEZHCGZWP0qR6 1TFFzWXLTCON9JONLwM CXxNCmaIRSCFUAZE69Y RK8QESZtlrwiqWXdkGa lYYgnPQClQ7VzYAJ9AC JyZWFzdCwgbGVmdCwgb GBciVGwhyBip0GxDpyx MCwgNSBjbSBGTiwgMS4 0JCNdIK5fc9SsMXDezA Thq046jxErV7OaHXTkR GNvcmUgbmVlZGxlIGJp s2EkyMlkaSLjFNrgCwC wXGxpbjcyMFxjZjAgUG 7unKfbtlTmLmD5lLCtZ XHeG5XmdfCzP3sxmGA7 aXRoIHJlcGFyYXRpdmU sO8mcvoykddExc0XuUM CsbS0xzuPsIkkdOPQul GFyZFxwYXJ9 Comment (test code = 9835) g8lilNGxAYDymKE2ViU hVIXky1jeq7IdxSUecF XoIOqjlFSemfOoca56b UB7iD96ZR5gIGRyQjP2 HDKnwfX0Ajc5LPZoGTE gjOLrH354n5zvs8hrbj ItpKH6COZfYOV3JPimv jQsacQ9KLqkyEZdEvU7 C9ekBHGuXQhuFPCcNHj drEJiJDp9DHCouHUmmr LgYhGlTAZiiZIbnDJ3J GNsOX1wogdkMJvwYLfi ZUCndmY6ZCFbiGEvB6H vTKFjPU9nfcebOLP7BC tlTSDxHSW3JzTdOSZvk 3Racxu4CyEmkPYxJYml bGFpblxmczIwIFRoZSB ljoGbh0a1RQKjWQWpoH 4rcKHbKVJeGt27hGXze XRlcyBBIGFuZCBCIGhh yrV4q49aHDbxmRbfY3T drwQanXbtuK3jb8mhIh NyOKI2FOTxxcipvP44N TBvnjGajMfash9sJYOc bGxhcnkgdGhhdCBoYXM cxVqtrK6qhoTeUHXhwn QgaXMgYWRqYWNlbnQgd Y8lR1zik0NuJqOwasDj b3e0WAS1jCI4vVOoEPV lfUJcym5lmWclpUJtSA RrfL52OOsnZKUyWkRoD t08sKPnOnO3zGThKYLg zRS6l5hgV2rgWMYqqTA ker6jXBqvvuQckMTlqy KnZ8JcWTQdY0RazC3oK ZI2HzV7gSHoLMEmJCNt Z9BeVsStXNRmbN56RyF wHMojOW0kxATkzAWysA OeiZ9raOvxJWY3yAatZ RU6DA6tVVLgwSMwRJK7 HgVbLBXvxTK6gOEdtp8 cV16gGPStvpVmeLEwmT qndAPpyTykcJW5yHKdp Z84AWLptkLarZsbpt4e MZDpuHajazexsUX4bPB fziGkazA1kHQiytcbdD VzGrZyCGS7EHEpoIwgO SOhnVFhq8UlaSEpXRWf ZmZlcmVudGlhdGlvbiB tce9gGZT0CmDoPERmC8 CpL0xxu78fZwJmVVIdc ujdQWHzIT1dbB5rhBzv cJ3lkLFfiQEljPUtmHL qreGhk0BpNIWkDVDtn3 WfIJCqj57xiFyfd2SlB MXzK5Gcs00fVNTfv87d m7AwS4rdIW5dOJ0oSME fQKJiUJEjaT5tzKEuh7 Qjl94qfDdeIKsyymNxm 2VzIEdBVEEzIGFuZCBt RP3jPKhea7PmbaulQ50 hExxsmFrsEqR1eLXroY AhwDWlzTWjsknoeX3zN UTEqrHngT31mg1eoGYk kvEre8AxBATUCYwvL9b luMgeoHDxQJ7pb7DtUQ kzWKczA0GtxKYmIY7bM FWjLMVam0RhWVCie15e vZAiqKQiPQ41VKT5jMZ diqYzAR8gNCu8iHHuz4 Osw1M3bDXhRIoomjBjh Z7bLpznMJZguEKcYXZz jeowZFCgPFJvc90zpcp cquYKKKH4hEPyTpgeSP CoCvKvoFv8fPYoFT2ea F6diMbjzC7obNXttBKv bCBzdGFpbmluZyBpcyB dOJImi3VdAGBmpJ5qn5 VyIGxhYiBvbiByZXByZ QYyjwUbaMp9GStkJANk vFBqAIz7rNz2POIhzIN nrLQjxQcjLjsbtUQ7RW ivWlktsV0irTULBEAQN vyERlduauKsZE6JVWII JhQXAU74YpGbGCP4JDw xfXtcZmxkcnNsdCBcJz BchR7AQQOaOqUktn0qc VOnZJXpYQYnFED7iQ5g SRHsn6kqhAHaEBcwCwu icKSebqJ8VTlYOFEEMQ bXZsQdYZ2eZYuRC7MPV hX1PlWlPQG6HZrgnDha ZmxkcnNsdCBcJzFjfX1 uyFhjeF2ngRwzuxPrVX Wluyd8jf64TZb9weAxQ xZeGWTgeAGmMYOpK7x3 cnBhZGRsMTVcdHJwYWR kZnIzXHRycGFkZHIxNV bmzZUsPHW8ZGTrLHViV FEyQLU4JKGlByArkjDa MVxjbGJyZHJsXGJyZHJ hRQEtIMX7RGVcFpJsex NmMVxjbGJyZHJyXGJyZ IQzNGAiSZJ8OEQsNyJj [facility] SystemMVxjbGJyZHJiXGJ aJCCtIJJcUFJ7OMWiCt JkcmNmMVxjbHZlcnRhb WFkR6jeeBEAvPU5yVSm R8y7L6zhtUtlAyVhPQM qeMh5TiH0RLtphKPfJL T8KFYkCVSjQBShKQV9C TBcYnJkcmNmMVxjbGJy ZHJsXGJyZHJzXGJyZHJ 3MTBcYnJkcmNmMVxjbG JyZHJyXGJyZHJzXGJyZ XZ9MLOpXgGeidTkFUls bGJyZHJiXGJyZHJzXGJ dEWI7TQSiKqCwdqWgWW owmJIpxmQhvQZjB6zqc SZCvRH3qFZnV5m6X9op wLf6CzEiGJWzzHi2CFE 1MFxwYXJkXGludGJsXG BoqFOuE9AeY2bgVL3rD TjhG87qx5rnTjDiY2Us bFxwYXJkXGludGJsXGI tSUAzr1DsV9B1SYWhVZ ncn4tmCETiFBvoz7XpL UnOAGMLUV6TDI2qbGH4 YTaXZDFIO0kCnFP1RQT wlFC7Ka95SMYkPDFbzE EjTIhyO672CZ1HJDUSD kUgRFVDVEFMIENBUkNJ Ju8CJWjxCdtqjOV2XYu iRcyltG9epHFINIBJJp tJTpqtgtJoEY2TIHSHR A3KwFP6ZZBtlGE2Ou77 QRZoYNAavIEtOZjqI32 5BOAbFWghERIySiUjN2 XrtSatdhOtmPhok0ujh TFhz5KxyNOtPRQlVhkk TDAlyEOwXBqyZQj4xvN hZGRmcjNcdHJwYWRkcj G4NIHnAsDfckKvLfYei nNcYnJkcncxMFxicmRy U4LjMBAfCzCyptqvIsN kcnNcYnJkcncxMFxicm XrG8KwFMUbRqVkuvPtT nJkcnNcYnJkcncxMFxi qeJlB7VvWCCvKmEqwbE cYnJkcnNcYnJkcncxMF tejaZiQ7VzJQVexuRch EBaiStrqYN9p2khGRIu E8fhcEaYlCF5xHNwNJA aJ8GeeBlyAjTmCPYpPh JkcnRcYnJkcnNcYnJkc dmdINniqtXhT6WnPHYk YnJkcmxcYnJkcnNcYnJ bacqsZPupjfZoV0ZcJE NsYnJkcnJcYnJkcnNcY mNbvtsjNZtuqzNtY7Ki XGNsYnJkcmJcYnJkcnN cYnJkcncxMFxicmRyY2 YxXGNsdmVydGFsdFxjb TU1s1ydERXvA9trrAsR fGQ8gUSlNBKbP4BgoHf 2VJHnRZDyrgSanS34Tg xcYiBTaXRlOlxjZWxsX SDvzkGwuL33WnujHkJl cHJvdGVjdHtcZmllbGR 6PGkjOdahcO2euNXKBQ FWIvjFAvreueVuBY0WP HMATjMCWD67KnCzAIY7 M7fiwBmnOpnureXpeRL bXdQlyK3MqDwzvINCfw Ttr1O1WCIsMAtqm0mhV EPyOVnzf8HxUQeSEKXA WA6BYI6wpXR2SWoXGSJ HYFmfCiRjU5vkvGQ2o9 rahROwa4o4PKmgZDD6b VxwbGFpblxmczIwXGNl vAscjV34Vushpr04JQT vx8imUPPetjvxEBLswA JwYWRkZmwzXHRycGFkZ PgdWVz9waJwQRObwwGs hUOiVKIhprH5OZKxYiJ kcnRcYnJkcnNcYnJkcn bkZWbnowOlS6XyLJZuP nJkcmxcYnJkcnNcYnJk mwnkEUseojZyL2PxHKR sYnJkcnJcYnJkcnNcYn KuppxxETdkkuZsM4MqF GNsYnJkcmJcYnJkcnNc AqKkuevdVPllobXhQ5E xXGNsdmVydGFsdFxjbG T7w3naNFTvH5idxXlKx GE1eKGbXNEoK4OwkTqx MzQwXGNsYnJkcnRcYnJ kcnNcYnJkcncxMFxicm JjS6CfYMZzQaPenmobF nJkcnNcYnJkcncxMFxi hdKhX3OpPIMhRsRqhzT cYnJkcnNcYnJkcncxMF hnzdQaD8QuLOHnZdCws mJcYnJkcnNcYnJkcncx CCclmrHcJ4ZfPBMqgyA tqPWsxXpmeCC0r8mfDH FsK1pxtKfHmVF9eRXoG TGaP5DmbRw1KPCpCEIj jgGfcC22FdnbcWx8DzV hZJV8SQefKDpdZGpwYL RlOlxjZWxsXHBhcmRca T29TucjMvHwpDOunFFu sApjQpyttQI9VMjjIjg krK5zwQLBRUCLZdnUTm cxqrYjAU0CJHQDAqDBL V50JuTgMEU0HBt1gKny ZmxkcnNsdCBcJzFjfX1 OT7V7FBAhAZfvp1arQK BkGGtsv1HmGFtJEOIQU T3ZOZ8nsCY8RNhCVMWR KZttOhSgThs9aPQ9c7q ysLDbm1k9YUujYWO9gM xwbGFpblxmczIwXGNlb SfheW69Nlpova60QIPr f4zjJLdtp8Mfz1mcdFH wYWRkZmwzXHRycGFkZG spUAq0viDjZPRzldKsx RPxYGFnetH5TBTkHxSw cnRcYnJkcnNcYnJkcnc zFNuiqsPyX4XoZQNsTw JkcmxcYnJkcnNcYnJkc blwPNjqyaFhP9KaPTOa YnJkcnJcYnJkcnNcYnJ vfljiZLgrtaVkN5MnWN NsYnJkcmJcYnJkcnNcY dFcgnhgBPfantLoP1Ef XGNsdmVydGFsdFxjbGZ 0w0kxTNYoD8xcwGiNwP B6xYNnDTHtY6SzyJgvB zQwXGNsYnJkcnRcYnJk cnNcYnJkcncxMFxicmR yF2WyXNHkDiOeusnaEg JkcnNcYnJkcncxMFxic oBlU7WpUEFeSvOiaxEz YnJkcnNcYnJkcncxMFx wbcThK6BfHUTxNnTmhr JcYnJkcnNcYnJkcncxM HeptjPzD7YsMATfkdBf cYXllKmmlTN7c5myWNG mZ0szxPsGsDH9iQAqII ZqI4LnpPz4OOKdHLOdp xDxeN08GscsgYx4NdRr MJV2ABogZDsmRDYxc1Y zWNTnNhItW5DlhEyvCZ JkXGludGJsXGIwIEEyX KJzzSjwpH67Iipmns18 XHBhcmRcdGFiXHBhclx nHSLcSBQ4YDL3NUmgOE Hjq33bplkhdpnyCRcic QYaXQQylyUVp1Aly6su biBSZWNlcHRvcjogXHB yksh7kt31KVv6awZqIH tqLGCjfGGsLLMjX0p9i nBhZGRsMTVcdHJwYWRk ZnIzXHRycGFkZHIxNVx maXXmTLB3DSZxNQGiXV WaRFY6UKDyPiJvomCrD VxjbGJyZHJsXGJyZHJz MAHfQBK4GQYvNtSdhfC mMVxjbGJyZHJyXGJyZH SyQGWuXGK5KPLkVuUek mNmMVxjbGJyZHJiXGJy QXAaAXEdTVP8NDSzNxK kcmNmMVxjbHZlcnRhbH PcH5oblTVQuAN5oXXmM 0u8D4ijvEcwNRnaBTXc dEz7KTs4VPokzAGnKAC 4KXMjAVMbWBEkCLE1QZ BcYnJkcmNmMVxjbGJyZ HJsXGJyZHJzXGJyZHJ3 MTBcYnJkcmNmMVxjbGJ yZHJyXGJyZHJzXGJyZH P9RUIcBkJyuaJsUKvqk GJyZHJiXGJyZHJzXGJy QYL3JSYwJpPiffWtIDv naCHjddXdrBVdP5tghS LRhUF8iVLhE6z9F0uvp Ia0SXpqIOKhuLn7DLT0 MFxwYXJkXGludGJsXHF kELIeKOpnQE35bDVuRP ygH5vtzfA3NPcfVPytE EDsmwCnjN68VkjluGYy mHCkjIpuWlwqnOD7NHf lMucueR3umNDJOYEXEn pLIxqnajOdAX0SVNKAL pWRJZ15HiBzTSR2MBp9 fXtcZmxkcnNsdCBcJzF sxE65TaQfGImBVXflYE j8WSJqEJuyv7vuJHKoZ Dyhi4LhXQdZKYBILC0C HL9apKA8XGrBEEVIULs wRoHiVVg8cSN8r5dbeO Ygw6u7ARhkCSE2kGefs VVfrninKTTnBlVoD0Nd vGyqcfRxrHgeu2bakOE dl4LjyTEwwGZdMCs5zo BhZGRmbDNcdHJwYWRkb CZ7MLTmxEJyFXUbK3h4 ujBxPPAaQTOuL9pyxrZ whRkszrWlq3jynkEadq QwISQzCNKwUjCjX7cmr xKizGfmdqNww4dtzsTv fvPdLUUrAREoMpRqL5r pbpMeactxnzJvg0abjl RydzEwXGJyZHJjZjFcY 8kvhoRqGwwadiQrn7kq cmRydzEwXGJyZHJjZjF kY2s4EAZ9YRm4MOLhSg DsX6ybnZnuVMCmg9pcX KCsVHm3WRtxGEkqoBK8 IVXvB4chvlCciLbxtjV wi3wuvbGbvpPlHIWzIB GcZySnG6mxjkVcvPmxw tFvc3grqgUsylHzQNDj KKAkKcNtL7ieipOoxjn fmbGyp7shxsEgpuEmGX NiIJPqPhLdF7zyowJiE dbrdpEih6ybnyZbwfGp BUWpVOTfRaPjU9f7SUH 8VVk8IRObRqGkI9wcjH ufRHXcs3mpAHYyKfO6F DztKXjtoZf1LeVfdULg ZFxpbnRibFxxclxpMFx pBDowUFArkhLvzZ28Qp myrPVJl9RpmXa6HRA9D DExLTEwMCUsIExvdyBQ h8QrrGg0HNY4DTSvGSS fNOOhnJzsgY85Ajzvoq 41RJThy9wuYMEumoebK TBcdHJwYWRkZmwzXHRy rRVuWClmTFi9koMkDRI ogtZsqCAjAKJiqtO3EX NsYnJkcnRcYnJkcnNcY gRyhmtdPNmzcwGyO1Bi XGNsYnJkcmxcYnJkcnN cYnJkcncxMFxicmRyY2 YxXGNsYnJkcnJcYnJkc nNcYnJkcncxMFxicmRy X2SiYGLcJdUduoHiNlF kcnNcYnJkcncxMFxicm OhW4WhYXMjolVzfMAjg DqqyCT7q7enOSMbW2av iVkBcHI3iKW0TMGtQ1K sbHgxODkwXGNsYnJkcn RcYnJkcnNcYnJkcncxM PmxicMyG6BzUWQsIoZj cmxcYnJkcnNcYnJkcnc bQXyjwkAtM2CcJSYiDb JkcnJcYnJkcnNcYnJkc iqdSYzbefHfP0TdMFDu YnJkcmJcYnJkcnNcYnJ ghucpQFzupoXiD6TmPY EhuySzfHNicHvdaCZ4v 2dzPEMmX2kpkVeNkMC3 mKB9BmXeN4WxkNt3GTY cWJLjocSgrR84LjsonG HijOYfQ5EdzSszNTVfI GludGJsXGkgUmVmZXJl xaMySkLDtJbru11oQHD kOMpdMAPgK3ihZDN1iE 9sIExhYiBNZWQgMjAxO VxjZWxsXGludGJsXHJv i1y0xb84QSo9ryOuTmM xFLEayFLqJDCfT7x0ol BhZGRsMTVcdHJwYWRkZ nIzXHRycGFkZHIxNVxj iHGbRBB9OBGaXKSrFIC dYBF0TJPlYvYwdhCuTV xjbGJyZHJsXGJyZHJzX BAwXQE7RIXrQvJrboYs MVxjbGJyZHJyXGJyZHJ pSTLwCUC6LWKrZkHjbl NmMVxjbGJyZHJiXGJyZ LRlOKDiZTU5UDTpCzAi [facility] SystemMVxjbHZlcnRhbHR dM2nvxSFZsMS0rRUbY3 h5D5hfrBzoBUppVEXnr Kn3VNl5NZcwrDIuPCH8 RGQeQCPrHZEuXRL2SNO cYnJkNmMVxjbGJyZH CiEYXgJOEdIDMpLMU7X TBcYnJkNmMVxjbGJy ZHJyXGJyZHJzXGJyZHJ 3MTBcYnJkNmMVxjbG JyZHJiXGJyZHJzXGJyZ MF2AAWoNmGqcsLvMYmx gRBjtxCutLOjR3ollSR VgSU9yFXiC1a9M3ualG q4TEvpJDBqjQw8RKW5W FxwYXJkXGludGJsXHFy WSFarTYwTvTiaRj9oty pG6XzaJagGEEaWDnkzJ HrCNZzPMIlk9GcA4N7D XFfMSspc8saURSnDCmx q7HhCSrNHCEGKJ5WED4 dgJY6UQzSOUEZN5mFfE Z6RAP2dGX6Qj43LBPlB LSetBGzPVnoV194OL5p xFZzbbR5QFUeFKnqk8s xECRuESkyd1UoIEtDHH EABV4LIN6yfEQ1EQkDB ACMAOxqVlPlJAc4vLD0 h4urzRAcq5e8TEuoWRI 9fVxwbGFpblxmczIwXG OoxUvlhT13Iyncph69G VOor3qmUFHyndsgPeZv dHJwYWRkZmwzXHRycGF iUEfxVHl8zcBfHFQohz RdvBRrXFRdjpF2RUVoR nJkcnRcYnJkcnNcYnJk pocjHXflfcOzQ6AxMTI sYnJkcmxcYnJkcnNcYn RmmcwfYBtiwuUjR1LfG GNsYnJkcnJcYnJkcnNc PgEttbhmWIsdvyPhQ3N xXGNsYnJkcmJcYnJkcn NcYnJkcncxMFxicmRyY 2YxXGNsdmVydGFsdFxj eTB0u0faHUYmZ4bivNa RkHP5uEG4AANvL1MpvD gxODkwXGNsYnJkcnRcY nJkcnNcYnJkcncxMFxi fvUyW9YrAGFvBzWsrzz cYnJkcnNcYnJkcncxMF mgraEdX6RgQIOnClSmn nJcYnJkcnNcYnJkcncx ODknwsHcI3IuCJPlZxQ kcmJcYnJkcnNcYnJkcn leJSxjefWbS8PwVAOzs iQrcQNuxRaycMZ6m4dn YZBvE6iveEzHjIB2ySR 3TbZsU9GarRr9BXDtEA IysxEcnN16GzbgsWHeV jGEURSnPX47YTR2QRcv yL1uHrmtVWxmQIViftI baV51NdmyTbPzdZDuqJ JtzGquUiyppWS0ABsgQ otjsY1kyPJWDGGYVqvH RlvxpkEfGV4LYHLMEhT NMU12GwOpMyH6U6d5iL tcZmxkcnNsdCBcJzFjf Y2iQHJbL1MZHKTvRNGb t1LiS6Eym3fygMTiPQw tVyuztEHivjO6BHiCPS TAOTgUFmOiTG7wNGoFO TQCMUrUEnr9tNhbAixm niYjuSCpDpDsmN49AQb bBfvrdLO4APciTlkhbW 5zdCBIWVBFUkxJTksgb pHbZM2VDOnFJS1DuBo4 b8hudBCth7y7MFdwVEI 3oQfmhERkjvnbmr56UF N3YWWfCvWhHYI3KDAnJ Zwjb4gcAEWgKDbel0Hm ZZeJYNRQLX0NBM4tqLG 9TElTVEVORHwyNjAyNX u6tPi5p6sxzNDoc1y6W RwdFTU9dMsaxJGohtys vuMbQDYbiTlmjX92Ckj bhs08SKKnt3knPIUiwR AeIVPeW5a1meVaSGVuQ TVcdHJwYWRkZnIzXHRy cGFkZHIxNVxjbGJyZHJ 3WWTrGEAiYEPdFGG6RW BcYnJkcmNmMVxjbGJyZ HJsXGJyZHJzXGJyZHJ3 MTBcYnJkcmNmMVxjbGJ yZHJyXGJyZHJzXGJyZH U6DUHoQwHxsnEnLKjfc GJyZHJiXGJyZHJzXGJy JFF3CHMrRcNmdwTtYOd syWTbipNmmRHjC3jikZ VDaGL3yPWgL4m3T6ohn DxiUEsbDZGniVu4RTs7 FIsvwGRyOWV6WMWjDRD hMYHcPOA4XUPvZdGwtx NmMVxjbGJyZHJsXGJyZ QWeNGPfIOX2WUMtVfMy cmNmMVxjbGJyZHJyXGJ mXILdDFWrUEY2ONLuXn JkcmNmMVxjbGJyZHJiX UEvXQYkKOOfTKR7BTJd YnJkcmNmMVxjbHZlcnR jgZYlY7qgiGZEkFH1qL KwM4b1Z9jydRz1CMacN OHhnRi9XEW4SRasVRBy PLvbrIDgFUOkPLMyO6N sbFxwYXJkXGludGJsIF VeYFYto00mMJ03RCYlb JgtpW54Mftdbi39OSBn d1umVASjtTUuXGXgP7s 0cnBhZGRsMTVcdHJwYW RkZnIzXHRycGFkZHIxN ZmihGMfKYC7GULqIYUi WJUlSBB2LBNaSkLrbfR mMVxjbGJyZHJsXGJyZH OkAWBkUSI7YITxWvBdr mNmMVxjbGJyZHJyXGJy UZItZJMtBDF1FUWbGvX kcmNmMVxjbGJyZHJiXG DdGLRvHARcTNB8OYKjK nJkcmNmMVxjbHZlcnRh yTDzI1hvcBFUyLE2xHR gD6g0Q5ngsDruUIraRI WguKi2SIq6EZwzgNMsR UO4PGAmZVHzJHTpWZR6 MTBcYnJkcmNmMVxjbGJ yZHJsXGJyZHJzXGJyZH X5ZXWwEdVbvjTyEHbtl GJyZHJyXGJyZHJzXGJy WGB1ORXrOiHthoKqHJk jbGJyZHJiXGJyZHJzXG TkRKQ1TBNaZwRiceTaB ShhdVAzymBetLXqT5ek yOBRiZY5jXHsK3i4N9r efBa2JVmfPZPczEg1XI C0GMcuJHUhPKgrnRMyM HFyXGNlbGxccGFyZFxp evKxhLhnlm81RQF8i8t maWVsZHtcKlxmbGRpbn V9GDmZMCPZISjDDsCzN D8cCHmAC5IWSZgSNmoe NrZjKhg8gMv3i0sjlGN ua3f6JBtbPFW6jLUkhW JvcHJpYXRlIGNvbnRyb 1urVCVmKGHxaoNkCM54 DP6mXWCnLIMpaHidKI7 5ETQxSHkxj9dzRFLlRK edh0JrSUlFRTXTFZ1EY L3tgYF2ENhCWGLCSLpb IuNoYjd2nLe8o4yehFA od0v1SHciGKW9mLrxcS FpblxmczIwXGNlbGxca S33Pzduch80NRXee0sb XHRycmgyNTVcbGFzdHJ ti0y6ueFlZJRemTDoyG EjEIUejJV0JHUuaOBiU DDqO9t0jtQhRKYaBXKq B9gujqHwbBtukjBso6q icmRydzEwXGJyZHJjZj LfG1rvezHqbRhinaVzx 1xicmRydzEwXGJyZHJj FiOyW9amovVbebmrtmM le8erlwMglwOiIKPoMA TzWtPlK4sdrvYjRyzue lObj7vgciKwxoLjMFVm JKVcThDjD4z0QOF6YJc 3WDBmCeMgB2esqXtqAY Bsr4duIKJlTVw0UBmrX ArcoEN7NRVaW2tjikJo rBkqlaZob7bvbmFpikP pUPBhMYFqWxBaR1lfng HyxUsueoLbf2njqbJrs pHmOKPjCZBgLkEoF6ls wqPccmfdtbTqu9spziV ydzEwXGJyZHJjZjFcY2 zxmdBgYhdnewFyv2eet mRydzEwXGJyZHJjZjFc D6a6YKK6SEk3ZBScUhG iM0bezAitPCFbn2lyGS NvWvM2XBxmVJjntTr5T jBccGFyZFxpbnRibFxx fesjKSF3RCqtSKiicKK fi4o6tMwfZ2DbiHftCM JkXGludGJsXGIwXHByb 6KbU7H8BKFuUUgyr1xp YQTcASjvj1QmYKcRFLM VAM0YGA9liPJ8DBsHEO IPZ9iBcBW1RDF1pDNfn DEwfXtcZmxkcnNsdCBc HkVtdR1ArWVglnq2DXE kOPyut6yfAHSrACkus2 BlQPgGFQGECI3ZTJ4ut WH3LUxLMIFDJSvfCsUs AwmnFOvmQN78VQNuQWL ddBChCZdvR977BRSsCO uvHUUhCwDjC4VaqQbjj wAktLrxx6atyUJzKVoh ZBYvfHKeEVm5tTy3EGI vCjazQOAyMGKqN8GqaI Qwk17nENAoA6DefN8kG canEZCwdVJgv0HbjZXy lYPzTZp0vhJsGEFjsRO shZPzCQKpnTO7HFQycI ZzERCzT9t9yoMrKFTtV JEbL1bdxoIieQbmpqYk m9zsvrJndxGkMBOvPSE nNzCwB4armqVgfKwjnz Rxk0mpupJsntQkFQWgG AYkZsLqJ7beeiXafnct gsHsc5odgiMrgdAaSDF oRISgWqUjZ0xshrGiZr kdrxLrw8dxnuBrpuNiD AGkNZAqVxXyP0z3VWM2 BDc2FGDtOzZeN6pseHl kXGXec2ivCYFmOUacJZ jbUCswoQA9XXRlH0vqe oUrgVopkbYdq8xnkzVl ayIeMLEbBZLfVbNiB0c bkrTkxQwbvbWji9hwqc RydzEwXGJyZHJjZjFcY 0psfsZfyxkybqIkk3fk cmRydzEwXGJyZHJjZjF aL3emlpGcAnpqxuSbe1 xicmRydzEwXGJyZHJjZ qBdY9x2WXP6SYw2FWUl FjPwF4phaPjtRATiy1z nEEHaKzJ7LTrwQCbzoG v8ToPelLVrKSrpirIrx FxxclxiMFxpIEFudGli c3N9CDLis76mBxSgV7Y sbFxwYXJkXGludGJsXH Abl3ZqN6G4OUXmWVytc 7smRVHmNWjrd6FgTHqT HPYGTO4VSL4umKI1GEi NBUJCA4kBdBZ8UUGfdZ ExfDExfXtcZmxkcnNsd JVhVfNjeQ4NWnQqJcCs PPIyQ6Xdj3neuNKfPDg pOogltRJlncC3KZlPFU WMAQsEChWaLD6aLRhWL 1VIQsT8XaRfVMI1QGA1 GRV9u3tqxTHmy2b2DOg mRDB9oKqlnUJsnskgTL XvDbYuJ8JhqIikliUsw Scal5spiFNop2ZesXUn kOO4NEo6rfCqJLUixGN eyVYdFWQuiUM1HOMhyE OwKHZrE5c0tiTlVIQeV CCtT1atxsLhwRhirsYn d7alruGmxtVcNPCoYEQ qFbBmR2bcshNpnSylit Ntf2xfehZvdzMfERIhJ KFgGkXaZ8oqzlIapsbn tcSgl1lxccXwurQbNGB cQDAoPsRbS6cqabCuXj tkjgQfn8xswfUwxwUxT CWaEEMvAlYdV9u6JGJ0 ELr9ACSyMgPpH7ojbMe mWIUwl1fwOXCtTSlkWS akGNdpbPJ5YWLyW4tmb rQgmCvheqSue8acevEn avPiSUSmHJIbXiYpR1r hksFhvRveaaTdb6imwa RydzEwXGJyZHJjZjFcY 0jtzpLsnrubawOfy2xy cmRydzEwXGJyZHJjZjF zM7lqicSbLkbuytPun6 xicmRydzEwXGJyZHJjZ yVbF8e5AGD7YFq9GCFi JjAnV2bveKvpVMFds9y eHDLsQrE7LFraTBlaxM k1VmMxeOWxLSivfhJvh FxxclxpMFxjZWxsXHBh wlJllK85PjeelHTSa1O tbJw2OUZ1PKIxOWAfKS DvXHtpciKXa2ZpzRd9S GZ9UGWiIIWzN5KdmTjq lnBimEztw7ojtMGno9H dzIHzbIOvXLq5bzJaEB OuiMXkyZFwCPGnePQ5P ADywAQyTZOmY6j1zjQh QMKgNWStH7ljcnTwuSj yneSdw5blshAsekUkII OyBPXyEzRtN5gdvsJzn RjhqjEcd0ofkxXxelMc GNXcZBTbUkPjD3ywvhX mycshsdNmr0uflnLdmg YcVWBqFYJaBpOgP4vcd mYqAwgjluMeg6fzmpNt rjPvOCJaFTEiZhZfU2t 3FTR9AEk5QRJhBlYnN3 eboBkeMANvk9lbXMEgS HsvVCitHQmaaZQ9MZWb S1iewuDgiOzzgnEfh1e icmRydzEwXGJyZHJjZj ZqR8hnaeVqoZvxehEdv 1xicmRydzEwXGJyZHJj EeJoB6igvsUhggeaylR ax9ixcxSydwScCLLaRH MiNeSqK7vhtdSsJpqfe vUrj2luafOxfpRpEQJw PKYgXbTtL0g1PRU1MRm 7IDLtEiEdG0drwYuuPK Kpi2njBLKkZnW2PAhzD SllgWj1UsOoiMUvWImn bnRibFxxclxpMFxjZWx yUQSpnhPvjL96SxnvtC NGDIQnilJvR4A2AEMoa VAlroIwiDAaoU5wIXFh eLXVQYLik9yxZAIkGP2 fJJXhVUF5ZKXuhUhtcF 22Gtpjpp49GGPqs6rhR HRycmgyODVcdHJwYWRk ZmwzXHRycGFkZGwxNVx 0cnBhZGRmcjNcdHJwYW GljwL6PQKlRlCkdvBxQ nJkcnNcYnJkcncxMFxi txSbU8KgGDVxXjGewne cYnJkcnNcYnJkcncxMF rjsoWzE1QbSLBaYsNhb nJcYnJkcnNcYnJkcncx MSatisRjP1VrWSCtEiY kcmJcYnJkcnNcYnJkcn mtNXdvreKcE2EwXSHmz wEwrGMtxJufqMQ2p6zo EZLgZ4tecGvRcHA2pIB 9ORFgL2KusBqmHJfaCE NsYnJkcnRcYnJkcnNcY cJxnrlyKCslmeQsE8Lq XGNsYnJkcmxcYnJkcnN cYnJkcncxMFxicmRyY2 YxXGNsYnJkcnJcYnJkc nNcYnJkcncxMFxicmRy L9BgNNMyPcUpmaIyJvW kcnNcYnJkcncxMFxicm TbK3PbIMUmwoTuqWBly XeqgHC9o9cwUPUvI6ru bKnCuZG7kJR7YPUvW3U zyFc7ZWQuGBXbxsXipS 50YmxccXJcYlxpMCBSZ GN3fGXlXvOsK7IwyMxk YXJkXGludGJsXGIwXHB hk4JgU5B6QKIwWTltf2 bsJPDsOWdlc8EgKOlON GEHBX8RFL7nqBA5LPcK RNOYI8yKrFU0DPZybYZ yfDEyfXtcZmxkcnNsdC RiQzYdpJ1Zd1AapDk0I BiyObsnuZF8VMstYblb kN5xxIJGQABXQqfYIcu pvjInPX3ODCYYCU4NlC F9GMOhqEOuxAJfrZnjG faispTomFUxKnLhbG3p hWsoeW0aOnRfMQpoEVv sMZmyaSLkJVYae0h9ss 50JLc9shUlEbgoSMMya JYdUXWlI8g5tkZdOJEc MTVcdHJwYWRkZnIzXHR ycGFkZHIxNVxjbGJyZH A1YZIvETIrKLVjOLD4K TBcYnJkcmNmMVxjbGJy ZHJsXGJyZHJzXGJyZHJ 3MTBcYnJkcmNmMVxjbG JyZHJyXGJyZHJzXGJyZ JM1IMLrHkTjvcIuHZnq bGJyZHJiXGJyZHJzXGJ hXQB0NYKvVbRpomGeTJ qysKBqzuHgcBBiU9dey ADBpEZ3xEUiO6c1F2ua bPosGHtqIORktWj5ELh 5QQqwvQJeDTY3MKTmZO CiXYBxIED0EHEhVvYkl mNmMVxjbGJyZHJsXGJy XISjGNEnSTN3MBPyTsD kcmNmMVxjbGJyZHJyXG NxTKAtSTJeCPD6VQPsD nJkcmNmMVxjbGJyZHJi NCTcOANgDHIbLSR7CGV cYnJkcmNmMVxjbHZlcn YjuFCgQ0snaMOCbRI3i TTvS6l6G0nxlPu0RIit OIOctKs9WJB7BMrmLDV kXGludGJsXHFyXGIgUG UzM7QarGYUpMLrybdnS nigL7JbnMrsOUEcXKxd sZIkRXNcPSOde8BqE4V 0LOHbXRked3ibZGRaZL mnm8EfJGtJKIKDKQ7YW M0thWH9YBzISVQLQ6oW xEF2QHI3dHAptHTvtBd cZmxkcnNsdCBcJzFjfX 0qTAJtI9BEQASaXWJug 7PzH1Suj4nmmYHrFIci PyaqpDFwghW9XCuCRPT OKSyWKtTtHR9vSJdKLJ ORKFqPDtzkEI06DICyW ZIkvMIxZZteK988MUq6 ZKYjGTahd9ccNDYkWBc xe0AiRAwIGNXSVJ6CAO 9edIL3Z3uUHICCTIjdU T45NZBrFNDayPPbQQow Z701URWxWLacMCFpg7T yH6UqSvJzVUNrPIclCm aauHT1DJnbVevmgZ4je CBIWVBFUkxJTksgbmFt WX9JTEKKVC8BoZU9NXI 1fDEzfDEzfXtcZmxkcn WuqCQoZyEhnC5deYhjv H1dIqXzGNaeXMvuRJvo eVOnEAZzs0k7cf51PCp 0cnJoMzAwXHRycGFkZG KcG9m4uhWmCUAoGJIdm HJwYWRkZnIzXHRycGFk FXByMBhipVGuVPM9PPV uMRYtRSEjOYA5PAVvSr JkcmNmMVxjbGJyZHJsX FRcWQTfHYMdVGH1ZZWz YnJkcmNmMVxjbGJyZHJ cPKXvYFTgQSAxAUH0XF BcYnJkcmNmMVxjbGJyZ HJiXGJyZHJzXGJyZHJ3 MTBcYnJkcmNmMVxjbHZ qmkEttMQoR3hiyWPHfK V2hHSkT4j0H4xsgYjoA UadJKHnnEj0ACt9SHil uWOsLKW6SAJfHMTsAMC wWHN8EPNkQwWdujVySP xjbGJyZHJsXGJyZHJzX UUaGKO6PYSjFmHgrhRj MVxjbGJyZHJyXGJyZHJ wDCRtUTK2KFQmXcYgif NmMVxjbGJyZHJiXGJyZ DVsMDEsTHP2TNPcSaUu cmNmMVxjbHZlcnRhbHR gM9zbbGEHrQL9wPSsR8 n5C7xohZm7YDedJMNhp Ff8HCL3CYdrARWeMDeb yJLnFYMvIPUnN1BtqNy wYXJkXGludGJsIFNlZS Xix09jLY03CSUyaCkwe Y22Muecht30XXXjg3qd XHRycmgyNzBcdHJwYWR kZmwzXHRycGFkZGwxNV o9eeFnHRRgqfOnpNLhQ JAjzcE2ZJMmHxLmzmVa YnJkcnNcYnJkcncxMFx lwoCsD6CpYMKyLlCfcx xcYnJkcnNcYnJkcncxM EzaazKsY5BwOSBwNnUq cnJcYnJkcnNcYnJkcnc aDVgepaCgA4XjBXFwQj JkcmJcYnJkcnNcYnJkc yabCLdbitEuW8FzAAJc ttImsXBpdGpuxIT4g4y zFSWoZ6yxqTyMqDS7bQ Q7DBKgX6VqbIwbAWijQ GNsYnJkcnRcYnJkcnNc WjFofpsoCJkqguBxP9C xXGNsYnJkcmxcYnJkcn NcYnJkcncxMFxicmRyY 2YxXGNsYnJkcnJcYnJk cnNcYnJkcncxMFxicmR mC9TxBDFwThPoaoBvMd JkcnNcYnJkcncxMFxic nIuX8XrGLHroiLteFKh hBtxxQC7c9tqZIThT0u yvDhRiLM0uXS0QKUnT3 YfwZm5LGKcNTPojsLyd Y37RzzdfYOsH2TgnHtp CZNiQTdenDWiQKSav1B gT7X3MLOlGMcpy2inSY EyVHvya3GbHBjAIUMCZ S4MOG7ttBD5CMvCSBZL X1oRjRF9IRR0lYC0wPD 1fXtcZmxkcnNsdCBcJz LhtZ6GeXGjz2KjeZD1L OCci205vx6rysMpsxRs xHGrc0MdgXCosmH5bDE zy6uhBQWyy7oztFHfHI jgEdvzbLWhytS3ZKcPY PTKXDzKPiZfXU8sIAaJ X6WQNbZ9TpMaHaJ3RDA 3HRS9i0xexJSpk8d4TI suHVA1dYizgWSitkuvx bFsHBUhhXxweT70Cbed rk59HMKuy9jxXGEimdt kJrBzkWXrdXCnz8y6wg BhZGRmbDNcdHJwYWRkb OA0CQVlwNIvURWmL8a9 hhQdCMHwNMIzZ4fsxzI tpWhqddEms0wautHyxu PmEZVfDXXaXxVsF0isj gCelUjknoEdm3vsilBk dmOlNDRvGEByJfOlG0b tglRxazwmbkYhv4eicb RydzEwXGJyZHJjZjFcY 4lwhnXuVlutgrZlb1ud cmRydzEwXGJyZHJjZjF wL1z6AKP0SAr5YNAsCk AvM1obyLhxCRIrw3eeE KDySNn5MYsbCKrwcYG6 OALtP5nftvIwlHabyqT mw8apziPtmxGxPUApSS OwEfXwZ4jmybUvtJcmi mFop9wayhAcatPvALWu RULtGyQfX9augvJpfzi xwdKxs0gvaiDvmsFeOX MuUPCxOuEhI3hhyyLcW gbkroXpp8nmvtXxroAh UJUtVDCnRmJcI0j1RDZ 8EKp9CFMtHbXpA8suoF grOCCom9tdLAPtQjI7V XtzTDsreUl5LhSsgTMt ZFxpbnRibFxxclxiIFN 1VDzppB0cGXohrELul0 o0qLbcK5ZemEdpMEMzH YftaBKnIRMrNYOkb4Vm S7S5CPHbQGbvr1uqNAA pBFolk8YdREwZGFWONA 6RCH0plXR0BPlLGYZWO 2vJxZF3NADgvYX5gLD8 fXtcZmxkcnNsdCBcJzF ybT2BoWRguze1MHMwGE bwm1dhOFUzPZekc7CtK OdEQAMHTM0MET2djER3 TElTVEVORHwyNjAxMnw xImgxLy57SCVaXPCcjI JxLHghG327JBAbLBhmJ QMmSnAbZ7PgdOmfrbPo tJkkm2uqjRLaOKdwVEC ndOFgTEu7yUc1POIaXh xwYXIgSEVSMjogXHBhc ml1du45WXu9vuBiYXMx sETydZOlOUSunLU9KOH fnOTwZNEqP9c3uyScPY TdRCRhR5zsbbZawGxpc iEeh2yvtvFesuFxGBKl ICQiDqJvF2qhpfYpiKg prfQme2tcyqNcjmScUV VpYAAgMmDhE1qfeiUef rrvknGcy1rsglBumxBy JHJlWVVhQmYrE2nnabK mTryreeAbn7hidsEkrx HuSPWcHHYgKpSzN9b1E VS0DRq7TLWelMWbyOM4 E5ubgJtqJDndxLZ7t6q kCOUcX4bogUxMiGA1fT g2CFupG5PseVf9ZLu6I LAzlvQgdB31KvqsnIOe cDJccXJcdHgyOTcwXGI mTJjsZ1JxOSAyhYjhn5 C3QJZcc16aAncgZXN6P 6LzfKrayh4vADF0kMYs uYOwYMRyrm6vqVTmXAx cpfWzzSdftYOkEmg8zD C7OmXeNYN7QTvUGM05T T4hTCAhzYf7JZexSD8t b6KzMLlwm0bkh67gn9U 0YWJsZXNccGFyfVxpbn WilByisTUpFws6ABcej mVzdHRhYmxlcHJvcHNc wLRct7UsxPTtmFRvv6o 0cnBhZGRmbDNcdHJwYW YaxBY9ZFCwxFPmHBNqG 0t3dwDqOAJzIOJkC2fd viXtdLmrdjHho0ezobH ydzEwXGJyZHJjZjFcY2 flxkWqvPyokaYth2bhe mRydzEwXGJyZHJjZjFc B5iqdzJdpygphgZkl7w icmRydzEwXGJyZHJjZj RaS0kixiCoEsoiggVbe 1xicmRydzEwXGJyZHJj SqVgI2n3GNJ3MFx1XOO gQbLjX3rycYpxYKBmz4 zzBSObSDZ5DTtdDBhdw TN6SdJdV5rzwmIocTqw zjXcr8naniHrceLbEAG qNLUjPoTbS9pyadVclQ hzvfEpx2qcilUusyUmJ SHmRPXoGyKeE0csuaCu gwbiapHuq2kvchOfvnM xDXSsBBTqSrXhJ7pvnj QhQbrbowMgw0pgmnDpd oXbOCQuWNMbUaVgP8u5 DIV1MXe2XLWcVsWaH1c yiHndUBYmq4opGJRqXi hlIFocUSuagRv9DpAfk uCclHMld078VL9qunTc lAYsTtxoh5faTBD1bFj wYXJkXGludGJsXGkwXG NmMFxjZWxsXGludGJsX AQja5r8wi07CWh5ybMz UVNsWAk0wgPfRDBypPL kcQUvAUWdnJO3BSWtqO XuEFAjR9y1izAoIZSlV XShG8xpsjDvrPyrgxLd u8lwtmHldfFmYWJeSCQ xVeWyG7wevnZxyLtqpn Ynl3phevHdvcGgPJMwE KKuQqQfJ8noppZxlayu olErq5vzppOicvXbRBL wXJFfQqEdG4hsksAoJu sjisEva3gcwsYqthLzH WVzUOGpFaNuH2r2CTM5 BZh3LDJqyNPbfTR5A5t wlXzbRLcpxOX0s7zcOR XbF2mgzUhMbKM5wCd1W PbaL6VanPn6KLp3KGIi dwOpcK18GxkkmSVehUU zjxSxbYAheQy2GC2hnj GnjKEsBtxtz9yoPGS9S FXocwJpbN11GyqxkIVz zYIofNcfBxIwGR7bnKG kyeFxN4TgTHOiLWXyCQ Kfg1HdCYmukTywI5euJ 7FjKqDdKZ95cETrJL1f aRFxJK7cDLX1DZdehU1 gIJKjSIBbtMHcZ06hgV lboJSwQAfzhKYjt3QgT PJqCCB3hOInvU6oGpQm GRAhFwC4rW8pmkZoFEy sokThY1ZqpbKoJjgxPa GsFzTiPSOxsjLrC5SuI XMgYXJlIGRlZmluZWQg KLYzkPcca0Jkm6n2cPP ubyBvYnNlcnZhYmxlIH K3SEfckP8xEPUqbmCsC Z6ykjTeWPViyNGehcdy HdX7jKC8IVaqYZhoM47 ckOzmrLLaRK5xCVluOX GnpI12R3UzxdNprJBcJ DQgHSR1pMHvDLBhwxEh l8n9nUstONeoa7PdfGx dpjHzeyLnhKCovJG1kz VcCJJhp8GviFOaj4QiF 5AzpZEeCYBdr4LbVVPw HH8oGOeiX46cmEkzlFF atMXtZgIsbgUvr5BaiC 5pbmcgdGhhdCBpcyBmY EsqbJ9tYQZipAwdxNGp P9XkbCttoVUvNA4sQPj pdGhpbiA+ZCYwZP6hQU E7fS7qTVNyeZmrQTdVU 29yZSAxKykuICBFcXVp eo5iCPekv7IqsD4oIIG tqy3wohO5KYRcLMUufg LesjKitOnbo0Pok1x9m ACqoAWeoS3kXAKwagBf HJqhyXEvAdMhbcUjy9O vmG7rpdtbsXgjzIElog BpbmNvbXBsZXRlIGFuZ QOfmwM4KKFdGU7inC7k HMIvoOMcUC1xDUslgWw pbiA+GLHrKW6eHZT8uJ 3tAOMqzEjpON3bIYHwf XBsZXRlIGFuZCBjaXJj nC1vDVFeejDoAEvxrOH mAgAzqyCep7ZaeQ4mph cgdGhhdCBpcyBpbnRlb sVdCBOyLPX6tAKguD1m zPQblpI5xJHqUA0sRRS xdWFsIHRvIDEwJSBvZi P0wV4jctIuMKvqivJeH 7BxgqZpKmriZkjaANB9 Q7IwmVokon6qDBP4pYP jjZZeELMqyt7nhX95Ae rijQDkeEY7u8diRS6xh 7U6ZACdFKRud8FbRHYf x2kyMTMzwWGgOXYrS7q 0cnBhZGRsMTVcdHJwYW RkZnIzXHRycGFkZHIxN TndoGQrANZ1XXKjBASe HUZyKXV0WXScQtPddjJ mMVxjbGJyZHJsXGJyZH MhVMOfMXO3GFEiGyYgf mNmMVxjbGJyZHJyXGJy RHPbHZEpKBG1XWMvUhR kcmNmMVxjbGJyZHJiXG OeMQXpOTJhMXC2WBYtY nJkcmNmMVxjbHZlcnRh dALrW2xkkUNFqYG7zCS iT4p8Y3nvpQhtMwSbU8 DbnAfvWxYdD6qojnCdn MiqaiJlm3lubgOymrIw YTUtNSTnSfVaZ5pkxtS cdIfhplAtr6yfzxKlap DhZFXoGSXlFkSaJ0jcb tKpfooyumKjs3bdgaUh kbNwNLRzJNFfHvSdK5e rbeIvZcntutFck2kxhh RydzEwXGJyZHJjZjFcY 3g9JLU4VQp2LSPyTnYj M1xeyCuyFZEuh7noKZZ gBOJ8PAmlRYrrtZx5Vn CxvnModXIqa028AE1ry nTtuZQyCzsao3vzECB1 fVxwYXJkXGludGJsXGl 0YXAyXGkwXGNmMFxuZX X7A5ZciWasxu0uMGK4y ZPtgWAyODFyyg2izTFh ZFxpbnRibFxpdGFwMlx pXGNmMiBSZWZlcmVuY2 W5SBgppVMoLIF0WIZtM cIVGWDmqZ8xR94ay5ta JzN5CoZpTC5rMmqsPdT pQMvlFZZ5E3VciSrqbs 0pYZY5jQUahPApGAItz k4vyD07FizefKPqwIH3 p8uuDP5ce7T0AIWlELK xc5ObKELra9coDXvdk7 Vlt8hwvHWnDUFkSnwnQ UAzkTKtMHkwZQg8pjLo ZGRmcjNcdHJwYWRkcjE 1XGNsYnJkcnRcYnJkcn NcYnJkcncxMFxicmRyY 2YxXGNsYnJkcmxcYnJk cnNcYnJkcncxMFxicmR nF2VgFFTjYiTthqEeVs JkcnNcYnJkcncxMFxic vDvL8CpVCRlGhRtdoAl YnJkcnNcYnJkcncxMFx iryHpN8DhIYBsdqYhtK JhdErrsQE0y3uiPYLjR 9dqrVkQoBH1yKT4YNst YRitdEA2UTvgoNBnCGV 7CERfKNSjQKTzVGX8NW BcYnJkcmNmMVxjbGJyZ HJsXGJyZHJzXGJyZHJ3 MTBcYnJkcmNmMVxjbGJ yZHJyXGJyZHJzXGJyZH X3JXLsUwSiluYlJFptn GJyZHJiXGJyZHJzXGJy CPU1SFRdUcAgrrUaOFh duJXagbJogSWbV7bgzD TSpBQ9mENfS6u6I1grs Hp4ZJplEERlvDb0DVEv RCalCSF3om23tVkhkl4 fCUF5vOGfyRMdONHkyf 66EMBffgBpfT35Qclxq VFdE9KiRQHkpNmzzO80 Dgheqc78HZXkg3fqEBD ycmgzNDVcbGFzdHJvd1 b5qpHqPSJknOUihGTkT IUirVQ2PFWyfZOeCJNi S1v0iqChBHXpFLMkA6j jdaHeyYxpeuNia2aygd RydzEwXGJyZHJjZjFcY 5yxmrQidEncumZrl9el cmRydzEwXGJyZHJjZjF aK6plvuSbuacihlVeo1 xicmRydzEwXGJyZHJjZ oQcM8ofoqVnHfodsbAf w7tbyuRtehCpXKSbKLB lGeKbZ6m3AQB9RMn4YT MnzUHpjBI2Z4wgjRmjK LceaLS1n3mgMWDnN0yy nScVqEE9bFe6PDzrZ0D asYp9ZYa0GFOhpfNpkB 50YmxcaXRhcDJccXJcY gduKqPgWbOynOh2inmf dhAvfCUstDb4US7mvaX qmVMvDvsop7jvBNW0ZL RtmbPivM83UmskmAEny OXkThEsB0YaHTDeg1Of A4O5GQEyRJjpn9lwAOC hKPqml5DmDAcYMIHLYR 8ZAD2yeSQ3UIpVEHTUP 2kJzOM6WQY4kDS2iCZ1 fXtcZmxkcnNsdCBcJzF xnS0ECOnsnIe3KTctQn aysKZ5NOyzJqujwH3ai CBIWVBFUkxJTksgbmFt TK1ELJORMJ3PiGB9PRY 6kMH6sDD9aGteDvxipm UsyUVdUdEuxL7urVyms L1qLyGzDVmoMZE3O5Jc wCqfdl2gSWX1sUToqZC jTJXagi6zyF44NvqtjF HmaTV9j4irRM5lv6T7U REdGYDcd7KuQOYxq1qq XHRycmgyNzBcdHJwYWR kZmwzXHRycGFkZGwxNV k6arOyDCXcdnBolHOjI XMijqQ5GUBgYqBqogFj YnJkcnNcYnJkcncxMFx wipHpS8OiQUPmSlBjpt xcYnJkcnNcYnJkcncxM SrtffPpC7ZqEVFoXuNl cnJcYnJkcnNcYnJkcnc dEGaalhSlA1ThUGZmNs JkcmJcYnJkcnNcYnJkc ovrOSblveZxG7YvHOKy jdEowCIpwSfgfNL7a3w fZCMqG7ftyOnXpPD1jY T4NOdmV6NlhAgmNWroS GNsYnJkcnRcYnJkcnNc YdJxfwtuJEfbfqGvS3C xXGNsYnJkcmxcYnJkcn NcYnJkcncxMFxicmRyY 2YxXGNsYnJkcnJcYnJk cnNcYnJkcncxMFxicmR bE7CcVEHbAkWxjlRcLy JkcnNcYnJkcncxMFxic qOnG0SfPLKnokResXMa jVtoyIM0r7oqDQMsA1z ryPqLoQE5fKP2BBtpB0 LhrLq8OPFqKS2lm6Rne 2x1e3bdy91ir2N4DOXr SVDjrOWvnF6zmUHiWEj pbnRibFxpdGFwMlxxcl msLHZrLrLLHTEvGT14E DK7SGvtwW4fUsbnPAC9 Y3CkwEbrls5uOVC1eGB rtRWyAPFjnx5ewJZmCS xpbnRibFxpdGFwMlxiM FxjZjBccHJvdGVjdHtc AzkcoWR6YYzsWodnoL3 zdCBIWVBFUkxJTksgbm BtZC3ZDHGNBgIEDI24U hGhHtZ5IGg7DNg6c5qu lXIzi9h6QHyaSQI4wNr lWYRiBZR5YHvpyE2gq9 xmaWVsZHtcKlxmbGRpb qQ8ZSiFMMFAHDuJPbEc YK7gHLmLB8VLDvM9ElU xXgC0CYn0DSf8j5mntR Xys7a7HAmmKTE7cHngt QFhsatgdnVsSD4dq5Ou WVvux1bez90qo9Q0NVO sZXNccGFyfVxpbnRibF irfDZvYot0CGbqqxAyd HRhYmxlcHJvcHNcdHJv y1YfsFHvBAKzNqvfFOM kqMTvSWybTSb0jbKqBS VvscCrlTLyTJDtaoH1W GNsYnJkcnRcYnJkcnNc BpGtcnpbCIkpeyYuF2X xXGNsYnJkcmxcYnJkcn NcYnJkcncxMFxicmRyY 2YxXGNsYnJkcnJcYnJk cnNcYnJkcncxMFxicmR gB2QiVPNzDxHsnnTlIj JkcnNcYnJkcncxMFxic wXxT3SiRFLnfaAsxXRo vXfyfCS6w6saWLQtX2n hoAlIxIA6qHL1ASdyD0 VsbHgxODgzXGNsYnJkc nRcYnJkcnNcYnJkcncx BIjakzTaG7VjKKZiBwD kcmxcYnJkcnNcYnJkcn ykVWeghvUnC4EqSPAoO nJkcnJcYnJkcnNcYnJk wqwzDCqanyFqR5LxXAI sYnJkcmJcYnJkcnNcYn WovvqaWWhvsoSgH7QpN GNsdmVydGFsdFxjbGZ0 d9xqUEErR7anfOiMzYK 8sCK5CTcdH3QbtSh0HP FnKM7nk2Mwq1l6h0ajv 80sn7K7GXKjQPZnrVJw mU9zoFDsEQrxzlKhiKq piCRjQnvtvcpgPSX0O5 IyaJwxjx5qQLR6nGKme MKhNQSqpw6pyWPmURuc bnRibFxpdGFwMiBTZWU oS09gqATkkGnaURU4C7 HeyYgvee3fDVT4hIPuv UYuGVZwdl1ekY20Jxoi gNIgcLY1i0soGJ2wr8F 0UZMqLZQwd4PmYFBzb3 vwDTBbdYIaQEFdL5i1v nBhZGRsMTVcdHJwYWRk ZnIzXHRycGFkZHIxNVx njPPoWMN9OERhMUVwLP LwUZC7QMMuGhOrtnNzX VxjbGJyZHJsXGJyZHJz SOPiAIA9DDRlCvAnfbI mMVxjbGJyZHJyXGJyZH EbDXFvSZI9VKQmAwIoj mNmMVxjbGJyZHJiXGJy RLTwHHSfQXF9ZPFhQeS kcmNmMVxjbHZlcnRhbH XcR5ptcNMRyIG1nGWyQ 6h0I1ekhLfgCPk1TTCx cWh3APp9H0xxiBPhTZG 0ILBgAYNnWUIsUGA1CH BcYnJkcmNmMVxjbGJyZ HJsXGJyZHJzXGJyZHJ3 MTBcYnJkcmNmMVxjbGJ yZHJyXGJyZHJzXGJyZH G5FWPnOmMgofUpVLruz GJyZHJiXGJyZHJzXGJy HQC4VQLxZxMqrmNpWWy pgKGwpuMfrTAiU9djqQ KAnAA7lYAcL2p4A8gkl Gg2UQO1CFMgwSg3NBVc APirADD8dg32uPttss3 xIIV8tRKnzZGwBVKpxl 01BGIlwbVycM31Owlok XRhcDJccXJcYlxjZjIg S2LzuaF1GO3ar5NtQPd aj9bnd05xd7R7OXUdMJ NccGFyfVxwYXJkXGlud SNsUMd1PITqALIaHEQx RVjurc10LDS2s1nwlHK gYFskCskonYGibhV3CB tDJUSABUlNPgOiXC2fQ FrES2MOUPmRQutkCwLf XFnoKTwlLN22DAWsNZZ dlUUuVAlyQ532BCpeCb wbbXV3PLhmVmzgcU2qf CBIWVBFUkxJTksgbmFt VY3OZTKVZH4UkCT1DXY 1iEN5dMT2cHebUlirry ZcrJSwRyXgeE5nhMfyg U7xClZfXSwtCTR2H1Pi oAfkyh3zCIT7lXXqjYQ vMGYyxr6elC94JiuomG SxmQN4h3aeCO9nu2Z1Z WPiYYYkw6MmDMVvs3yr CORbjEUqATChI6n9dkZ hZGRsMTVcdHJwYWRkZn IzXHRycGFkZHIxNVxjb BXuHKP0RNPfPACdLLGu KLO0QWKlXrFnnrGoFYo jbGJyZHJsXGJyZHJzXG SeHDX3FZZsCvInegGwA VxjbGJyZHJyXGJyZHJz XCMtZGU8YEIsRsPmydF mMVxjbGJyZHJiXGJyZH JaZLYkHNX5UDUmVoIwo mNmMVxjbHZlcnRhbHRc E8xdtAHBbXU4bVGgH8z 5R1nwvEboUCc5HBCzpF p4XCc6E2slqNZtKJB6Z XWcZUIqVXLzMXP6ASXf YnJkcmNmMVxjbGJyZHJ jPPThKNYlWYRaJSR1RK BcYnJkcmNmMVxjbGJyZ HJyXGJyZHJzXGJyZHJ3 MTBcYnJkcmNmMVxjbGJ yZHJiXGJyZHJzXGJyZH W3CICoEfHzksWgSLwfz FBaieKieANfI2qvzPWB hBR7iLUmE6u8H9rdjJr 2JQU4FAUgrRp7OCQlFJ piEFO1vr04eBmjnh8hE MO2tFVzcIUdRIEdpj59 EADkflSjvZ88TaoqaTV kcRAtfsLuaQJoeMf0SZ 7rltVhxRSeSkoyd7dkG XG9EQXzoeUnyT54Xpwl tKTbxJDkX1OaOZFmtL2 ljlBgfuErqSTgeXr4ED 8jhaEunBKkIvjiw4hkD TX4IKofoQPdBKk0VXBf g7taGgpkMSI5wOXqyDQ qjq7ez8r2ct49TCb7xi BhZGRmbDNcdHJwYWRkb OP9KHYbtTLbPXXrL0y3 mqChPDUlSKAwS7rgtfM vwOrbbvCvr5uxdtLmtf WuEIHsNIEiBlZwO1hql iAccApilkAdx5jyvpTe jlIgQWZbCLRuUmDdN3f yjpIrsrtedjZtz3ciik RydzEwXGJyZHJjZjFcY 3cwesTsStmupxCxx8gs cmRydzEwXGJyZHJjZjF xE5k0WWA8AUz2IMTpYc TsX9htjPvvDHGhe3ylA KPxDJo7HXpxABqakJB7 FDQmN9vvtgUffVhzvnR vt8dhjyZaypDzRYTdAD DtVxRtO6aaknXxgKjqe mMmr7wdqbRhsbZdRPPb WVOwJjRxL1kxtnOvkfl pksIhy2gbdtJcjkGiER SgOMZiIbYpM3bvlyMzC mswfoMse7ukfkNkmbRg AWRuRGOiJvYiY3o9XYW 6LVg6MABlVvNrA0twmC pzSFTdn5nqFJCjMgI9X 5dxWTjhcEt9RsVnegVz iRNjb934WK8ylhCteIR qXqhky7qvEJL1lDraLT SsDDbcgCZaPFb3PTBtE GOkRBKeT7XcSKMHQ7hr RXZhbHVhdGlvbjpcbmV nyFWmzPq7GJ5fetXaeC JqKroby9uxRAY9AIJrc bRptA18DargiLRjfJMh KdWgO5IaFVJbv6ZgA3F 0HTGaDOgof5vgEXTiVR hqx8VrJKoIQTVGPT9JU S1awLY8MDvMKLMYX2xB kAJ5CPI9gIXmfFCxrOd cZmxkcnNsdCBcJzFjfX 8ZSmihTqxKIKY3nMjcX K0voOBeCHUlisOiwEI6 YQO2OQPaPAkmz2yjTTK eJFwze4FmYLsGPFMXBD 4CMD8epLU4KMzYVNFMR ZafTiObETqbHBtrYT32 FXSjPHUtoXPlOFkxE67 9XHBsYWluXGZzMjBcbm MznGXnfWt6TM7pwfVpx LXuNjfqx4vsJHV0BSne sWCjXTt1RQKjc5bjZyo uYAZ9xGFhlXQqya9oc4 i3ka25FOf6wmWsUiI5M Dqyc4Vgs7brqCDtTMSa ZmwzXHRycGFkZGwxNVx 0cnBhZGRmcjNcdHJwYW HfveM0BGYrVkGqoaWuL nJkcnNcYnJkcncxMFxi wiDvX5CzCRWaYaGcmmg cYnJkcnNcYnJkcncxMF nmypSyU0LkDMPtIvIks nJcYnJkcnNcYnJkcncx NYscsqIlO2FzTSFhNeJ kcmJcYnJkcnNcYnJkcn csXIpvsbOuM8RpYTHod sRhcSGpfYfjlUD9k4jw ZVCwW1cnrCtFzLM7mXH 6YXwgI8TczNhxTNmgMY NsYnJkcnRcYnJkcnNcY mRtyrjuFHxskaPvI5Qy XGNsYnJkcmxcYnJkcnN cYnJkcncxMFxicmRyY2 YxXGNsYnJkcnJcYnJkc nNcYnJkcncxMFxicmRy C4IqPREbWyDslhJrCpM kcnNcYnJkcncxMFxicm EtK2OcHVFtghRhzSOid DunsOX1i1ngUZIyF4vq gFqBoSM6mPM2IDpnF9M ohTj2XWLhMV2hb2Lvt8 h5l9yfq50uo5G1OYThR CYltJJzuA9beCReXHlt bnRibFxjZWxsXGludGJ oJCQmy4cyCIEjBOQ4UR W5EOpnILTtkeTDOR76R jjqRAQiaue2kz66MUf6 cnJoMjEwXHRycGFkZGZ uU0p4ugBhACZnZIWukX JwYWRkZnIzXHRycGFkZ GYuJNnvvEXjPIM5HZHf HTDbVHMlOFB3AIHqAuI kcmNmMVxjbGJyZHJsXG PvDBEkWXPsUUF6QUOoH nJkcmNmMVxjbGJyZHJy MBFaGHQuTRMzFDP8CBU cYnJkcmNmMVxjbGJyZH FmGSWiOZYbRBIrRZV3V TBcYnJkcmNmMVxjbHZl ulPyaQVwN5ugxRMVgYC 2cLUlP9y3I3fkiAgzFD keLSZjdWg9IBm8BDbhp MNcJHG7BUMtFSFqLZXu EBB0XSKbEdAdwjTzIOd jbGJyZHJsXGJyZHJzXG EcRZW6WLPuYlAgnnBqN VxjbGJyZHJyXGJyZHJz CJAnDLL0ASZwMrVntpV mMVxjbGJyZHJiXGJyZH AiVYGnRHI0RXSbSmCix mNmMVxjbHZlcnRhbHRc S7gleIVFzNK6kPHuW9v 5F5micQh9GVjqJFMirE i5NYC2SOtmUJTuZSwyw HXeLUQtBXEeFIlyGV88 cAHyPEhbF0ioghJ6YCu oXTivPYJqpvUstX76Dn wgTUlCMSAoREFLTylcY 5AovXfvajOviGbko6ce nFFkp6UpoWSwqRStBNm 0cnBhZGRmbDNcdHJwYW AtkJI1CZYarNYhFMNzQ 5i8ptUvSTBgPWNnG1tt fyCkbAptyyKbz9vdwbX ydzEwXGJyZHJjZjFcY2 voftFkiNstnzHqn5tdi mRydzEwXGJyZHJjZjFc Z3jgyfBlgkgvdvXua5l icmRydzEwXGJyZHJjZj VvM6fhofUaSennanAuk 1xicmRydzEwXGJyZHJj GfLmK8o8XAU5QFy0QDN jJuBeB7qyfWhoJFPbi1 voGDFoGZp1SWpnLAzct FV7IMSdN8rvwpUdpJkw yaBox1nmfaBhprPdDGV zMBNoSsWfQ4jukuAztV mbhoOgh0hvhhYyoxEkJ KZqMVUpVzGoS2mdhtQc jxbaclKqz7yjccAapeJ pKNBaHINrVtOvT0jqqq WoRyrqocKvo4dbetRpv uDsVBPbUTQcWxNpT6e2 TBE6SVo6YXUzVzBaZ3z qxCbwSWNqt4efINFgLc H4GTodLUpolJv2YaAjj GFyZFxpbnRibFxxclxp MFxjZWxsXHBhcmRcaW5 0IttukPGZo5zrHJ7deY RqzpKnAUA8ITawTDPAd 8ChtkX1RGVRe3VlxGi2 QI4pHVsgRkGgDRGDnVj nKQNnr4g0wYJtBI8lWa C7ZFyxCXwmZDeadBJoL UCzp5y8bh46JEe3wiCe Shh4HLHuzRGiXCCmA8g 0cnBhZGRsMTVcdHJwYW RkZnIzXHRycGFkZHIxN EijrYAjLLH2RNHaKATf XMFgJUQ0BQVsVfFudlC mMVxjbGJyZHJsXGJyZH DrRUZiWKD3CLYtIiRav mNmMVxjbGJyZHJyXGJy OCKxBMOgEMJ8DKCwWyV kcmNmMVxjbGJyZHJiXG LgRHKhHPNvZPL1CMXlC nJkcmNmMVxjbHZlcnRh gNMuC2yflVZDeVZ2aZQ fQ9s6W0knzCtwNJtgUN MaxFr0UYt1PIgxfFLdR AL3XDRvWCNlMTYhIQM2 MTBcYnJkcmNmMVxjbGJ yZHJsXGJyZHJzXGJyZH F9XMBfZvVnzaLbJDdob GJyZHJyXGJyZHJzXGJy BIL2ZXShVoRhrnDgWTi jbGJyZHJiXGJyZHJzXG WgEXD2JSByMrZuyvWhG XzchOWhtwUyiEWuA5eg wTTXmWS8sCHoL8t6V1s szJr6LDhhNRWisBx5LI H2IEtnRMWdUSnwgXSuS HFyXGJcaTAgUmVzdWx0 sstoI5GbfUtwADTqIQd xuTSmAXHgOSAep7RzC1 X5GTZrFEvtm6mjJKVyZ Apay0LfYNpVVGCPKL4E QC0siNV9KBoBLLMBU7j WcRP7LBW9vABerCYkvE tcZmxkcnNsdCBcJzFjf B2Uz1cpREvsPkVih1ow aWVsZHtcKlxmbGRpbnN 0IEhZUEVSTElOSyBuYW 7uRSkGF4NWBcM3SjScJ UL6NjV0MxH8f5fzgMQh u6j4GRgaDBR6xRwqaTF pblxmczIwXGNlbGxcaW 16Xbbyqa45SYTfl6gwW HRycmgyNzBcdHJwYWRk ZmwzXHRycGFkZGwxNVx 0cnBhZGRmcjNcdHJwYW HahrT4OLKqLqZhjfYsG nJkcnNcYnJkcncxMFxi ksDcZ4OqWLXyRbSqfja cYnJkcnNcYnJkcncxMF rztwOsK8VnCUIaKeAid nJcYnJkcnNcYnJkcncx MCbzsdQiI1OkBPEoOhU kcmJcYnJkcnNcYnJkcn ghHLsfbjObO0IhXDVfr hQtlDNiqMiysBQ6c1fp MWXwS5kepMsZiFG5tZD 8ITNiE7VuxIptNNoeSZ NsYnJkcnRcYnJkcnNcY xBpwvntKAygvdEaM9Ut XGNsYnJkcmxcYnJkcnN cYnJkcncxMFxicmRyY2 YxXGNsYnJkcnJcYnJkc nNcYnJkcncxMFxicmRy E4KiXIPmVxEjghCfTpO kcnNcYnJkcncxMFxicm LhU0GgKKGyhdLxyTThr LfblJA4g2alOTKfC7ar yHdQoQQ9eSZ5AbUtH9Q iePi2IUZhGUWlscShnC 50YmxccXJcYiBQZXJjZ U01XRW6GBimfR6vCydy HDloUZKgyhGcoV73Yaa cYjAgMTUgJVxjZWxsXG yowQBcDXFfv1z8tv95B PuqUKI6oh26SBUjiBZu WFHjO0d7wgWaPQBvNCC cdHJwYWRkZnIzXHRycG CfUUXeECcjcIMeZKJ8X IPhCZSfXZKfSRP4QHNx YnJkcmNmMVxjbGJyZHJ uAYJcKUCtWSGnARU1FH BcYnJkcmNmMVxjbGJyZ HJyXGJyZHJzXGJyZHJ3 MTBcYnJkcmNmMVxjbGJ yZHJiXGJyZHJzXGJyZH W2WWIiRrCchoEmZRbij CLxgbOrbTUrQ4cvlLZD fSD2pAIrS9q7E7wdfZy aHWuxWBPmlOy9QNk3KR amfWKqKXH2ONAsYVAvP YUuATQ2OCIuFnLuzwFs MVxjbGJyZHJsXGJyZHJ yVKIlTDS2JZWvWgXjcf NmMVxjbGJyZHJyXGJyZ RLvJWVxQME3OHCeXcRe NmMVxjbGJyZHJiXGJ wMPClCDXoIWM4IFMtOy JkcmNmMVxjbHZlcnRhb JObI4bgqFXBhYI3pGEq K4g8D3makSl1CIjyVGR wpEy6QEY6YGyiRIQvIX evvEAiNEFiUDOqV4Ofj FxwYXJkXGludGJsIFNl WYJeq94iNJ44GNHtsZi dfK31Bsbppd83LOAeup HhiLt3NwUwYSMflITqI ZAineQwoCi1SgKjBLIl JAZclgnxRFXbKyILo95 qEH41LsNcyOPtKWCoFB NmMCBTdGFpbmluZyBvZ iByZWNlcHRvcnMgaXMg qNVuupGzL5QkBVCtRXM xv0KmLDWgZSDjdnFry0 s4VKXpnXIhy1DxuSgln GFyeSBhbmQgdHVidWxh ecFdPUR7ECSgmc0aKWG yJAAvVTAoBT98ISujCZ Z6NAD5UUxclX4jDWqpa fLpOBJppP0svQgfIBsb cwUedJKpQA9rB7FieVL jlBegDSF1MCRcyRFmna 1wAJ9dKOFmVByaYEUcO EGwdwRgk2k2TTC4rGK5 lHAfZFUffTZhmd3mCJO jrvrtYJFvHmYPz429xg 90ZTpccGFyXGIwXGkgQ zSpBQX0VOYtEWTmjIBx gzG9r6WzIDJbwdShKZB shq1zojdiNuSxae6xrs 1snDzkCM3vgMRkILvez Ua8JCRqDOUlZGSaKWPu JXJwqTgiZJQbfgEog7F nVPokmsLyi4MvRCWabM Mro3DjBwEsk2NeriHkc qGhI2VnLLEvjYj8TVqs s9KnbLzqvjZ9GSIji6G yesotUsS1SNFiqf0qgL joQQGsbBP8qM7wTVR2U 7WwYWTxBHzflL23zmQs u30hqZ3bvFCbrVMmQV1 kIHdlZWtlbmRzLiBccG QpPNIwviXXXaT2gETqu 8DuH6wwYF5ghIPeACOb MY4gImk2GJYnDb5eJSx xihgirhC9mEXlZPjsOK xobUPuFVYbDI3sW5Q9b XZlIEhlciAyIGltbXVu r0iga0HgK4heeNdrURe gUGbADfyhtoEkaFn6YN 3kvWK4aNHnsoO2yYJcw Vd2JJGbhUVum8CdxROb XJSjkTYwIO2rX3N5rEG hPVEemKBbb2EylEThbI BkzTSaXTlihjMvh5xjr 56niUahfIFuhAYdjK3n ibOvK4SpRMXyGJAmhHV zRWOuhxWpumInb33tDJ MtITMyo0Sng7Yak7e1o G11fFTzChBwX0Dltctl HCqTDAV3GYvxtG7kLJJ ve4MfjEJwUESzDXEpSm 4pZBgfCFFuVNjdvDv5I UBzbnKyxVp0RTCic0Uz NTJpWBE8HUAhDpolNHK ieSBhZGRpdGlvbmFsIH Cua1OdND8gKYCbgOZqd nY0vSLaWJArwUPsVZNl iGTnXUVvyl6yqcwrhKF cSNQoWaYrHT9zQYEXmb EpqxPyzVNuoQ7rVWRmb O6eBX2osW6ccJhxdS0y uFHcRwVHo5xdZO2gbWW eTTX9TbFnTypoWmyqEE C9Ip3qyVKwOJCqlcSWX xK1kZOja4TkN1sqJP2b z1VtNF5fxLIrxra4aXH wzBingLSfW2Qbt9HlTR A2MC3WTUCxUEVlk15pP CKmlgCzMK9vdZx2yRTd cAUnlUvwsNqrzpI1wW6 pmoSwLBytEsQtYh66mj NlqS2bvJsrZKPlZ29mv PHzjWnpOkYbFFTwl9gv Z6ysliXhz0J1LnBDtCV yPEFft2FcdLLysOM6ND Oep2HpHkOfclM7ADkjR KV4MQBhy78uAJKaQQkc zVBaUIDlpOpfu3Blcn9 gIFxwYXJccGFyIFJlc3 LorZZmd1qwkGnwZVQbS GludGVycHJldGVkIHdp bChiQ1K6pFzwcrLbuTK qhiV8uOYjcGadPQoukF 9vZCBvZiBmYWxzZSBuZ UljvQk9gSS7KX2sTWRl A2NzW8lahSChEWWbOMT epDCbzo0zHUFlifawER EmRTT0ZyZiKIZ3RHZ8G Fe2jXLqPlGtyPkhASmz WJW4ZhLzJKz2tUYrRtG usJb9BIRwICG2RMn2HL n3jEI1QRWxeNa2RzYfG YH2KsufOVx1tSm3LQAf zRg3ZsFmKQN3DQHjHFA ccGFyXHBhcmRcaTAgIF xwYXJcdiBTTUFSVExJU 1RfTUVUQURBVEFfQkVH AG2zBpTpAQB5YG7wLjO 8RXXxhFX5HJ8oPyPmU7 egIXRlFzPuTRE8ON7qM qO3XNY1dOS6HO5sLuMd HOk4GKDkSqCqSiZ4Nf1 dDev7DmD7HMW9kBz5TV 5dXyMoWbezLR0xTyN0Q DEwfDExPTBfMjYwMTF8 JFX2XD5eInFcPPcjPr8 iFwllFX0eJfVyLulbNT 9lShV1ZQKfbRZ5YGRgF oYpWJy9XTi5GB3eMpWi BPyuHO2xQcG3YKI2qOF 5CEGkCvRsFVq1UcO0IZ 6dJdTnJVsuCG8fHFMRE TVLQUhXDX0OBMAOVDHQ JI5BDtQfH8fYAYERGvK fTUVUQURBVEFfQkVHSU 7lCXf6XWeczVQ7CHj9P FaOUVFRBTSBR03XMOAL RWKTW4FTGIEXFSYHFZq WDFRYFd0SWXWGKJBBKJ 9CRUdJTiAxXHtCUkVBU 9KTVJMNQNqYWgRhZ3Vu D8jgIX6xQKlrHPWJhDL 5BiY6CDSdYH7kILzTAh RAM2YXYSLBCAvEVqBWl DJjlu7hoCJqJJumkRW3 EvXqRHCxcNZqd9QQXJY TVFBBVEgtSUhDIFNpdG BmKXxtdLS5IrHsEGLpj XAgo9TQLZTTJGWGUHik XIgZKTkyPTBjNVmek1J 4PcChNYFddCCuo0UEQX FTVFBBVEgtSUhDIEVSI VDhQBRid98kBHdhh3C2 FkHrEYBylGTlp2VLKUY TVFBBVEgtSUhDIEVSIF Dhu3ZtuWDCzQB4TmB4M XK9UX18TNyQCrPDM4ON QVRILUlIQyBQZXJjZW5 3MIH0TYplcX3oQDiLcH Izb04teCd1TzWnExKoj Wywj9MJBIIZWQJBGDfr SUhDIEFwcHJvcHJpYXR uZEMhymYlh4pvFIcGfI Zsc29ewMd3XaVrPtByw PBlGPcEPoFDK6HBMQHZ LUlIQyBFUiBTdGFpbiB JbnRlbnNpdHkgTGlzdC K5VoMrKAOshSKhHRzGV jNSA2YCRBGLMHyIRfSP JqVZXmNCjB4vWDTWuNT 3HqL6ECFrUQ1tGgy3Yn YGKLKYTVEAYZ9TOLNsD VNdErEibZi7FOitb4Hw EdN0XSOnZH1oQ5u1TjI XMTPJCLYVUI4PONKvDD OhY7XbhNOPfOXappgcO pKwL7Y1vW1aBIasMhV3 PBA0JW1hKYr6UyHJCEX PLRHUNJ1DHHGnSNNzsn 4gbozwyNXbH39paLGkj YKzSA8inAvtgyJiPLus SsFoNho4BVPfw1ZAAKB TVFBBVEgtSUhDIEdlbi NVdSHhreQDofEgc9i5n SELbKO1BYGcTjS1IFYe HB6tL5v8QsVNFQIGRQB TDA8QPDTrYWFqHzSCIR S0wDUeAXzocYmfKbQgO 8s0EGsdt5GMFIKXUDYL VEgtSUhDIFBlcmNlbnQ wF1HnoF5pgaeqMD5nvJ wmfzKyJDutPzLtILh6Z Augi7TTMXXMZZGSXZbk VQuRKQzcqzWvE5PlexL hUHkrePnzIlQkOQo0He Dfc3XUFKTSOZWBMDwnW UhDIEhlcjIgRklTSCBM aIT6EdO5PHV0RN5wMEp 4IpTYNKFADADJEK3EXW WzM3gdHkkeCuLglJf5Y Aqke1J3OxLyAJDptQJM IQKXCCwVXDREXk4KWSP XPUHYWW5AYaCmY6UJJG 7SIb7JNDKIPBPGAS4GZ KsPPoTeJ8CZBQ1LVv4P QZUBGMOWLF6VIlMuFMT LT7SJFxKPY6xjKXHZTC XBGAErJwUDJS9vIHFBF Y7UDLKHPGXPK04VYWNW VOHZT7AFTS2= Gross Description (test [id number] code = [id number]) wMFxhbnNpXHNwbHRwZ3 DhznawCRrrQT9qYR0rq QvlaGLukTUoQK5ETAWm ZmYxXHBhcGVydzEyMjQ zTYHtvHQsqOF6BTTmIU 1hcmdsMTgwMFxtYXJnc hF2JTPjkAAfF2KnLCFh DE7iznhcOLN4MSlqbS8 rpvASQupmOj2azCYjdD tcZjFcZmNoYXJzZXQwX SClfXpfJGXgHAg1pF7P GebrX22hq5V4Rcx2MMY tUZJsT0SrKQ9yJMDsaA GgN37YRrliSRE6RDJNG fgsCRGlTY4Gi1fjKTAm xCGmOEC2MQzzqLKrTWV oYUIcWAw2WDMpKLmziC SoAJ2ihEhiLmufvFzqo 2VjdCBcXGlkIDUxMDAy HDdxJEHqTV3OCkRaHEF eHmnnUXnsJIh3KBl0JI 9WUyAiICAgNTAzNzEzM BNeQUw3YUvrVI2DXJr4 ExP8RKZaDsO7RQW7UgP cXHQgMiBcXGYgQXJpYW wgXFxmcyAxMCBcXGZiI AajUfssIVckX99vcYgh nS3tYorsjrCmFJF1UDN hciANClxwbGFpblxlcG ljTmVzdERvYzEgDQpcb HRycGFyXGxpbjBccmlu MCANClxsdHJjaFxiXGN mMVxmczIwIEJyZWFzdC lxervczEIqCPNmM4o2R GJyZWFzdCAxMDowMDpc QpLxD8RsSMH5FPlmxRy fba39sGb8SJCkiGLlj2 VwaMM9ZQYbg1O3QYRov 3KvtuOlBM8chV1qLOKu t86nBBVqEQUfSXFuP99 gcB6nrLKdH3KbROPxAY IpTzQqS40xiQ8cPGgxo UC8OIJlAZKydBgkCKk7 XEB4Cd7aiHYiLFTdmhH AOR8GXiQaXbFgx3Rxiz RhDMElSE0dVPxibc41J IN0r9vjpOQlEVilNkcz nHLevfT4QQzVDNRVXSf GVmVtUN8gVZvUBckYXR dJTnwyMTAxNnwxfFVTR PI8YEyhjAiylLk0x2ie gAPvd3n7UKzxMVA9uAN Fu8urcCQtECcfCbstrW IpklM3SQiOPWJRLGnAY vIoAC1pSRaKJjwVBwF3 VlMdZWP4WLuNF2TWeEH 0Xab2YPk4yNgmGscmoa TtcTIdZqBVyU1wxCijz E9eoXUvG7shBnKyCZHQ ClxlcGljTmVzdERvYzB ybcN8ZSKqsOEjLBG9MO 5kXHBhclxwYXJkXHNsL LD4IVzukA88dSMzYFAq MTZccGFyfVxwbGFpbiA NDmbmOtpclYrze0TorV BcXGlkIDUxMDAyIFxcZ EOoZN5RNsUuIKJoStvl YOblACo5BAc0SA3DWiQ iICAgNTAzNzEzOSIgOT l8FYmrAF6LBLs4OvXuZ LL7DIJ9WAF9NhLcEOYs MiBcXGYgQXJpYWwgXFx mcyAxMCBcXGZiIFxcZm akRXzzX18huUlulP1hZ bbdpoWhYAI5XLJkilQQ ClxwbGFpblxlcGljTmV zdERvYzEgDQpcbHRycG FyXGxpbjBccmluMCANC lxsdHJjaFxiXGNmMVxm czIwIEJyZWFzdCwgcml nvVExZNRrV8p3OZHhVB TbeMThMSzaZBF5OTMfV JGtLQRtBjV8SLefp1sn p3fjyQGcQhisuj9tCXP 9mPV7zQClfTOiR68hWR RigjZyI3qjCfIiwy1dW DAuOGNtIHRvIDEuMiBj kFZmtbGsWI0voDsvVK1 kIDAuMiBjbSBpbiBkaW TxXPSjpamgSN48hCBmc Sndb7SffWe7dHAuLUgd IEIxICgyIGNvcmVzKSB aowJzBeIlXKSjC51fSG kuICBccHJvdGVjdHtcZ targUF9GSesGyoerE0m dCBIWVBFUkxJTksgbmF zVW5THV4FXrARWG98Is YaRCJ4MCgSS7QOzKU0Q bt4CUm2cHqyFxrxslMn fPEeMmOQsR3BUIsqPjk ckUN0XWreTdedzH0gkC BIWVBFUkxJTksgbmFtZ W0INO6AKF5NkPIiYPY1 hLS6VIMZGrcfpRS8wMO 1wD79JSSlGIDcuNNtIP czI729MVYcQReuNPf0e mNoXGZzMjAgDQpcZXBp X58bh2ARm5PcQSUpy2v tfRbdv8InpQFgKSfgMI OqiZKnUNobyB2kKwIrl 5zzrGe8SHyavoL1HPQh nt3dtKcefZ2fLBr1GYf mIVQwA4OeC3XpLPprKO W8GAAxDbUpAUXdSVEYI xQwTgNMVwZ2ENJ8XqO5 GKt0KTBYGwAaNxFxABG rVhxtVTBdJQy6NKw7AB xSOhQ9HFK0VeEbKuOuV OAgCMDuPMt7MUIyJOyp IEFyaWFsIFxcZnMgMTA gXFxmYiBcXGZsIFxcbm P2JMCvRIopUYIdJaKcQ CBDOlxwYXIgDQpccGxh tD4cOHGhY31pa4GAc8Y vSY3KXRu0afFvqlcytR 4wXHJpbjAgDQpcbHRyY 2hcYlxjZjFcZnMyMCBM oZ9eeBCkk7OkADLfQLU yaWdodCwgYXhpbGxhcn rqnSR6TUqjyTlaYkdmZ GfvBqFjOEVzgXPjiF77 WRImxlXreGOpw7LabNE 9NFLdf2Q3QGXqm7Gwfe pnTM27KLGjYHDhGMXiB rTeI02fpH9ifRPsP1Ps BZCeHHQrTnN3VXAaNJz pOGJjMY0gvYXhURQvnv BesaQnbPBgiEOtjIO6M NKwzD0uGkKyOLPhpOVj dNCdaKceVzbptWA6EJa sFnrojF0atYXBRTYWJd sTZwhcthZrMJ9EFW4UO wIWBD37NbOaIEA8FQyV Z5LXwSS8Tld3GTh1xCb cZmxkcnNsdCBcJzFDfX 5HDOgjVcrykVC8TWwuQ zplqF0rjEMNSWCAInnE KkbxyiOjAZ0YWY7FMQ8 RiLFkCIU3gIR5CHINIm rzmUA5oUI8cN47XCKkC HCdsNOiAPlaP774AZXo XAezAXm2olCmFOZqKnE sWSydTZVbO36sz2WSm6 PhEFBxn5ohaHntk9Zwg GVuZFxwYXJccGFyZFxz hN8uMwOde5prrIl4BDc aaaJ4DRMyry7ffFsrrH 5wFPq2PVzbTHPwN6YeA 0OqDRrvHVG0FXAcUqEx XGRiICBPVlIgIiBDMzY 3WMJ9NrZ3OOd8SKPSXi MgIiAgIDUwMzcxNTgiI Jq8WGq0PDtAQyM4QZM9 Kqy5AmznRJGdZORoZWq 0IDIgXFxmIEFyaWFsIF xcZnMgMTAgXFxmYiBcX RRdKPoejbI3YPLnYXec XGJcZnMyMCBEOlxwYXI zIChkoPcbyW6vEKKoJ3 6rr3RBm4WhZD4WHIy4s vZyjtpyaV2qCYMkfdKv HLrbrWLhI0tnUsvfSwJ vLfNxVCAPmrZji0YeXW xlZnQsIGxlZnQgYnJlY NI9LEU8ZNQ5UYBmWLGw XDJkYyJ9dHz8OA57NXw ok6wmUbfnhn5nDMM3cO M3oYHyjHJtB75gIIGou rUcB1rgMmYssc0vRFSu N0RyAXCfCLLkGMQagXC xpfUnLB2bdMnhLG9kFH AuMiBjbSBpbiBkaWFtZ GKrwcqcEU20aDJuwWfl m8TahTt9mSVmFXaxXCP xICgyIGNvcmVzKSBhbm UvAQIcEEQqK03vQGfhV CBccHJvdGVjdHtcZmll nMS1FKctOdzozD8gnYW IWVBFUkxJTksgbmFtZT 7KYN2CBuQGGC33FwMaI DR6FYhFI6OChUQ8Rob2 HSc5aQijYrrvxsSfeUU uFlKGdC2BWJnnLrrloW B9OVobZklbrI6pnOUEF RUJBomJSbawdcUdPG6Q LO7SGH6BwUEaFGN2aUO 1IRGGFnuhvCH9rWN2iI 17XGZsZHJzbHQgXCcxQ 906UFBdTEbuIVb3kjHy MEQbPeSsOJkmVCJtT11 ln4ZLt4BnCCEhg1wspQ quu6RgyNVsXZuvPSCje RBoMRrbaK7rDxHot0qj xDk9HUifvzS0MAYttp7 hiOuulK0rDZdjt8nlYV N2HWPhzZWmeVMcKTqpp GeihD8uUcZzLux4OSsm FQVkP4UwP5LjeoJ3VHP sYWluXGZzMTYgDQp9 Disclaimer (test code = [id number] [id number]) oGSWtRZJbc7rkNKDxtN FuZzEwMzNcZnRuYmpcd YDlTHVgKnJnq4nvp688 mLRan4psIUBuOwF4dFJ uBDZvxITdL599NPAtCY vom5xua3StDVVypZPmy 6L7PNSEbswwqLf3hUvt K83bs2T8OotoB0pgKDK oDBQnA8OpEG4oNEKsWh i6MEE9LNU1DTSqQQSeA 8RcUU9zMBPkuIZfGAa6 w4myoPklHHDjEQP9d2z hZPppfmRlEF8kpj4ndL l3y3adtwKbYXVhXSGoo BJSBLYaT8MnzLaqSf3d oXr5gEftIqoeXSL9Fsu 0KK6tmi27spf5xTrvTV HpvponSpM7GHuwILXor ckpYAa8PTpuQPKbcEN1 JBWbpGMvR9PbUPExPW2 ncvx7ERW0WJewNQZeWm H8VUPjaNRiMFBxwImaV Ozcn933DXX3JqVmUB0s L3Nmc1X7nY2jeXLzEKL gwMSlQsAnPVIvud4rmB DlYOwos8EaZPN6fhZ0f QZogCRiMKOqPF27Kank n9VgEhwlJJN8YJFbpcU ca2Evs9qjXtShkeZmS3 dnH8DoLIDcOFTbQCWrC bPabhCvr9Pre5RdeYVn vMo0t3ovNYHhSWCdlQv ld3zgXGG5JQRrW9W3wB Ger5ixTTooIHHgzEO6w zI7HNCmmWJwI8YxpO9p FJHeUL7tihl5d3ikQBU 5JFnnJJJoClO8gyG4OI BcaGVhZGVyeTcyMFxmb 799KSP7CyKtLAPeg4Po Y8KkeZwzC33hjXflU80 fRKSosMblwU9qgVgaeZ 5cZjBcZnMyNFxxbFxwb VZtrgqxCQjyloL6MExk oziwDWBaTAqxI0xvWeC oRXMssJtxCRwci4YlQZ KbIYEtLeitcfK4SUWUw 85pJYEkw3KxARAmjM1k lEVfQEwsnrCnlOA4ZKb hdmUgYmVlbiBkZXZlbG 8uPGLfVM2uUUDmbgJfo i9shxWdJMAzPEUjG0Pv cmlzdGljcyBkZXRlcm1 otmJzXUD2WHAATG4HAL OoCNZzw74kFYBdbDqgt F7feXIjglXtAUArj3Co jM4zmJTRSPQuE5ibRA4 dUPsua2NrtCVfzYGibB N4VHQbl0KgClIkrpPjj EXksULvX6NpfBxeJ4kx BTIkESEwhrEwlXTrb6E bPDZduTK6oAKgTO9AHj OBn64fQUHoTICJueBaZ UVdjIiweCY9lnZ4hU7a LiBJZiBhcHBsaWNhYmx wWJLsz336ct7kynJ8IN GzRGKqlmksa3PdBMZsS TKazO01RGCnYGTlfy3w wrznxOImdoLoG2Rzxxj 5uX3bQGHmTWlkRQDiNM ZzMjJcbGFuZzEwMzNca GljaFxmMVxkYmNoXGYx TDxfB4nsVpNqTiQbHmj wYXJ9 [facility] Digital Diagnostic Bilateral with [id number] 23:43:47 Test Item Value Reference Range Interpretation Comments Radiology Study observation (narrative) (test code = 72869-4) IMP (test code = IMP) 1: Mass [...] Evaluation PXN (test code = PXN) Nupur Rosario [...] Evaluation Lab Interpretation Abnormal (test code = 67707-5) [facility] Digital Diagnostic Bilateral with [id number] 23:43:47 Test Item Value Reference Range Interpretation Comments Radiology Study observation (narrative) (test code = 92911-4) IMP (test code = IMP) 1: Mass [...] PXN (test code = PXN) Nupur Rosario, - 03/09/2022 CLINICAL INDICATION:Patient is a 81 year old [...] Evaluation Lab Interpretation Abnormal (test code = 59030-8) [facility] Breast Complete Bilateral 2021-11-20 23:39:46 Test Item Value Reference Range Interpretation Comments Radiology Study observation (narrative) (test code = 73584-9) IMP (test code = IMP) 1: Mass [...] may be considered if it would change attendant. 4: Lymph nodes in the right axilla [...] biopsy may be considered if itwould change attendant. 7: Lymph nodes in the left axilla are suspicious. Ultrasound guided biopsy isrecommended. BI-RADS Category 4C:Suspicious Abnormality PXN (test code = PXN) Nupur Rosario DO - 11/20/2021 CLINICAL INDICATION:Patient is a 81 year old female and is seen for abnormal mammogram FILMS COMPAREDThe present examination has been compared to a prior imaging study performed [facility] on 11/20/2021. Images were obtained in [...] may be considered if it would change attendant. 4: Lymph nodes in the right axilla [...] biopsy may be considered if itwould change attendant. 7: Lymph nodes in the left axilla are suspicious. Ultrasound guided biopsy isrecommended. BI-RADS Category 4C:Suspicious Abnormality Lab Interpretation Abnormal (test code = 12623-7) [facility] Chest for Breast Ultrasound (Add-on Only)2021-11-20 23:39:46 Test Item Value Reference Range Interpretation Comments Radiology Study observation (narrative) (test code = 30302-8) IMP (test code = IMP) 1: Mass [...] may be considered if it would change attendant. 4: Lymph nodes in the right axilla [...] biopsy may be considered if itwould change attendant. 7: Lymph nodes in the left axilla are suspicious. Ultrasound guided biopsy isrecommended. BI-RADS Category 4C:Suspicious Abnormality PXN (test code = PXN) Nupur Rosario DO - 11/20/2021 CLINICAL INDICATION:Patient is a 81 year old female and is seen for abnormal mammogram FILMS COMPAREDThe present examination has been compared to a prior imaging study performed [facility] on 11/20/2021. Images were obtained in [...] may be considered if it would change attendant. 4: Lymph nodes in the right axilla [...] biopsy may be considered if itwould change attendant. 7: Lymph nodes in the left axilla are suspicious. Ultrasound guided biopsy isrecommended. BI-RADS Category 4C:Suspicious Abnormality Lab Interpretation Abnormal (test code = 27968-7) [facility] Soft [id number] 23:39:46 Test Item Value Reference Range Interpretation Comments Radiology Study observation (narrative) (test code = 33611-6) IMP (test code = IMP) 1: Mass [...] may be considered if it would change attendant. 4: Lymph nodes in the right axilla [...] biopsy may be considered if itwould change attendant. 7: Lymph nodes in the left axilla are suspicious. Ultrasound guided biopsy isrecommended. BI-RADS Category 4C:Suspicious Abnormality PXN (test code = PXN) Nupur Rosario DO - 11/20/2021 CLINICAL INDICATION:Patient is a 81 year old female and is seen for abnormal mammogram FILMS COMPAREDThe present examination has been compared to a prior imaging study performed [facility] on 11/20/2021. Images were obtained in [...] may be considered if it would change attendant. 4: Lymph nodes in the right axilla [...] biopsy may be considered if itwould change attendant. 7: Lymph nodes in the left axilla are suspicious. Ultrasound guided biopsy isrecommended. BI-RADS Category 4C:Suspicious Abnormality Lab Interpretation Abnormal (test code = 11832-4) [facility] Breast Complete Bilateral 2021-11-20 23:39:46 Test Item Value Reference Range Interpretation Comments Radiology Study observation (narrative) (test code = 77635-9) IMP (test code = IMP) 1: Mass [...] may be considered if it would change attendant. 4: Lymph nodes in the right axilla [...] biopsy may be considered if itwould change attendant. 7: Lymph nodes in the left axilla are suspicious. Ultrasound guided biopsy isrecommended. BI-RADS Category 4C:Suspicious Abnormality PXN (test code = PXN) Nupur Rosario DO - 11/20/2021 CLINICAL INDICATION:Patient is a 81 year old female and is seen for abnormal mammogram FILMS COMPAREDThe present examination has been compared to a prior imaging study performed [facility] on 11/20/2021. Images were obtained [...] may be considered if it would change attendant. 4: Lymph nodes in the right axilla [...] biopsy may be considered if itwould change attendant. 7: Lymph nodes in the left axilla are suspicious. Ultrasound guided biopsy isrecommended. BI-RADS Category 4C:Suspicious Abnormality Lab Interpretation Abnormal (test code = 29666-8) [facility] Chest for Breast Ultrasound (Add-on Only)2021-11-20 23:39:46 Test Item Value Reference Range Interpretation Comments Radiology Study observation (narrative) (test code = 76196-6) IMP (test code = IMP) 1: Mass [...] may be considered if it would change attendant. 4: Lymph nodes in the right axilla [...] biopsy may be considered if itwould change attendant. 7: Lymph nodes in the left axilla are suspicious. Ultrasound guided biopsy isrecommended. BI-RADS Category 4C:Suspicious Abnormality PXN (test code = PXN) Nupur Rosario, DO - 11/20/2021 CLINICAL INDICATION:Patient is a 81 year old female and is seen for abnormal mammogram FILMS COMPAREDThe present examination has been compared to a prior imaging study performed [facility] on 11/20/2021. Images were obtained in [...] may be considered if it would change attendant. 4: Lymph nodes in the right axilla [...] biopsy may be considered if itwould change attendant. 7: Lymph nodes in the left axilla are suspicious. Ultrasound guided biopsy isrecommended. BI-RADS Category 4C:Suspicious Abnormality Lab Interpretation Abnormal (test code = 19227-4) [facility] Soft [id number] 23:39:46 Test Item Value Reference Range Interpretation Comments Radiology Study observation (narrative) (test code = 71213-1) IMP (test code = IMP) 1: Mass [...] may be considered if it would change attendant. 4: Lymph nodes in the right axilla [...] biopsy may be considered if itwould change attendant. 7: Lymph nodes in the left axilla are suspicious. Ultrasound guided biopsy isrecommended. BI-RADS Category 4C:Suspicious Abnormality PXN (test code = PXN) Nupur Rosario, DO - 11/20/2021 CLINICAL INDICATION:Patient is a 81 year old female and is seen for abnormal mammogram FILMS COMPAREDThe present examination has been compared to a prior imaging study performed [facility] on 11/20/2021. Images were obtained in [...] may be considered if it would change attendant. 4: Lymph nodes in the right axilla [...] biopsy may be considered if itwould change attendant. 7: Lymph nodes in the left axilla are suspicious. Ultrasound guided biopsy isrecommended. BI-RADS Category 4C:Suspicious Abnormality Lab Interpretation Abnormal (test code = 25908-7) [facility] [address]
[2022-08-11] MEDS ORDERED: ONDANSETRON 4 MG/2 ML VIAL ONE (19:38)
[2022-08-11 20:00] LABS: Urine Blood Negative (Negative); Urine Glucose Negative (Negative); Urine Protein Negative (Negative); Urine Specific Gravity >=1.030 (1.005-1.030)
[2022-08-11 20:04] LABS: Absolute Lymphocytes (CBC) 0.5 K/uL (0.7-4.9); Hematocrit 30.2 % (36.0-45.0); Lymphocytes % 10.1 % (15.3-44.8); MCV 91.3 fL (80-100); MPV 7.7 fL (7.6-11.3); RBC Red Blood Cell Count 3.31 M/uL (3.86-4.86)
[2022-08-11 20:24] LABS: Urine Mucus Slight /HPF (None Seen); Urine RBC <5 /HPF (None Seen)
--- NOTE | 2022-08-11 20:44 | RAD REPORT ---
EXAM DESCRIPTION: CTAbdomen Pelvis W Contrast - 08/11/2022 8:24 pm CLINICAL HISTORY: constipation COMPARISON: No comparisons TECHNIQUE: CT of the abdomen and pelvis was performed with IV contrast. All CT scans are performed using dose optimization technique as appropriate and may include automated exposure control or mA/KV adjustment according to patient size. FINDINGS: Lower chest: Small hiatal hernia. Liver: No acute abnormality or suspicious lesions. Biliary: Cholecystectomy Stomach: No significant focal abnormality. Duodenum: No significant focal abnormality. Pancreas: No significant abnormality. Spleen: No significant abnormality. Adrenal: No suspicious lesions. Kidney/ureter: No hydronephrosis. No renal calculi. Too small to characterize and/or benign appearing renal lesions are noted. Retroperitoneum: No retroperitoneal adenopathy. Vascular: No aneurysm. Bowel: No significant focal abnormality. Normal appendix. Formed stool burden is low. Peritoneum: No ascites or free air. Small fat containing inguinal hernias. Bladder: Grossly unremarkable. Reproductive: No adnexal masses. Bones: No acute fracture. Other: n/a IMPRESSION: No acute intra-abdominal or pelvic finding. No bowel obstruction. Overall, the formed st ool burden is low.
[2022-08-11 20:48] LABS: Albumin 3.8 g/dL (3.4-5.0); Bilirubin Total 0.3 mg/dL (0.2-1.0)
[2022-08-11] MEDS ORDERED: CEFTRIAXONE 1000 MG/VIAL ONE (21:11)
[2022-08-11] MEDS ORDERED: LACTULOSE 20 GM/30 ML UCUP ONE (21:11)
[2022-08-11] MEDS ORDERED: BISACODYL 10 MG RECTAL SUPP ONE (21:11)
--- NOTE | 2022-08-11 22:23 | EDPHYS ---
Physician Documentation [facility] Name: Deedee Smith Age: 82 yrs Sex: Female : 1940 Arrival Date: 08/11/2022 Time: 15:15 Bed 2 Private MD: Michael Kauffamn C ED Physician Taz Dale HPI: 08/11 16:45 This 82 yrs old Female presents to ER via Ambulatory with complaints of Constipation. cp 16:45 The patient presents to the emergency department with impaction, constipation. cp 16:45 Onset: The symptoms/episode began/occurred 1 week(s) ago. Associate signs and symptoms: cp Pertinent negatives: abdominal pain, fever, lower GI bleeding, vomiting. Historical: - Allergies: 16:21 None; ss - PMHx: 16:21 Diabetes - IDDM; Hypercholesterolemia; Hypertension; left breast cancer; ss - PSHx: 16:21 Cholecystectomy; left chemo port; Total abdominal hysterectomy; ss - Immunization history:: Client reports receiving the 2nd dose of the Covid vaccine. - Social history:: Smoking status: Patient denies any tobacco usage or history of. ROS: 16:50 Constitutional: Negative for body aches, chills, fever, poor PO intake. cp 16:50 Eyes: Negative for injury, pain, redness, and discharge. cp 16:50 Cardiovascular: Negative for chest pain, edema, palpitations. 16:50 Respiratory: Negative for cough, shortness of breath, wheezing. 16:50 Abdomen/GI: Positive for constipation, Negative for abdominal pain, vomiting, diarrhea, anorexia. 16:50 Back: Negative for pain at rest, pain with movement. 16:50 Neuro: Negative for altered mental status, headache, weakness. 16:50 All other systems are negative. Exam: 16:55 Constitutional: The patient appears in no acute distress, alert, awake, non-toxic, well cp developed, well nourished. 16:55 Head/Face: Normocephalic, atraumatic. cp 16:55 Eyes: Periorbital structures: appear normal, Conjunctiva: normal, no exudate, no injection, Sclera: no appreciated abnormality, Lids and lashes: appear normal, bilaterally. 16:55 ENT: External ear(s): are unremarkable, Nose: is normal, Mouth: Lips: moist, Oral mucosa: moist, Posterior pharynx: Airway: no evidence of obstruction, patent. 16:55 Chest/axilla: Inspection: normal. 16:55 Cardiovascular: Rate: normal, Rhythm: regular, Edema: is not appreciated, JVD: is not appreciated. 16:55 Respiratory: the patient does not display signs of respiratory distress, Respirations: normal, no use of accessory muscles, no retractions, labored breathing, is not present, Breath sounds: are clear throughout, no decreased breath sounds, no stridor, no wheezing. 16:55 Abdomen/GI: Inspection: abdomen appears normal, Bowel sounds: active, all quadrants, Palpation: abdomen is soft and non-tender, in all quadrants. 16:55 Back: pain, is absent, ROM is normal. 16:55 Neuro: Orientation: to person, place \T\ time. Mentation: is normal, Motor: moves all fours, strength is normal, Sensation: is normal. 22:00 : Rectal exam: Stool: soft, hemorrhoid(s), external, small amount palpated in rectum cp with no impaction. Vital Signs: 16:20 BP 120 / 49; Pulse 92; Resp 17; Temp 97.4(TE); Pulse Ox 100% on R/A; Weight 81.65 kg; ss Height 5 ft. 4 in. (162.56 cm); Pain 3/10; 19:45 BP 134 / 58; Pulse 84; Resp 18; Pulse Ox 99% on R/A; em6 21:17 BP 125 / 65; Pulse 72; Resp 18; Pulse Ox 99% on R/A; em6 16:20 Body Mass Index 30.90 (81.65 kg, 162.56 cm) ss MDM: 16:28 Patient medically screened. cp 20:00 Differential diagnosis: fecal impaction, constipation, bowel obstruction. cp 22:22 Data reviewed: vital signs, nurses notes, lab test result(s), radiologic studies, CT cp scan. 22:22 Counseling: I had a detailed discussion with the patient and/or guardian regarding: the cp historical points, exam findings, and any diagnostic results supporting the discharge/admit diagnosis, lab results, radiology results, to return to the emergency department if symptoms worsen or persist or if there are any questions or concerns that arise at home. Response to treatment: the patient's symptoms have mildly improved after treatment, VSS. No observed bowel movement while in ED. Exam negative for fecal impaction and CT negative for obstruction and/or large stool burden. Will discharge to home for continued monitoring. 08/11 16:33 Order name: CBC with Diff; Complete Time: 20:47 cp 08/11 20:47 Interpretation: Normal except: RBC 3.31; HGB 10.4; HCT 30.2; RDW 19.0; FRANCESCA% 87.8; LYM% cp 10.1; MN% 0.6; LYMA 0.5; MNA 0.0. 08/11 16:33 Order name: CMP; Complete Time: 20:49 cp 08/11 16:33 Order name: Lipase; Complete Time: 20:49 08/11 16:33 Order name: Urine Microscopic Only; Complete Time: 20:47 cp 08/11 20:47 Interpretation: Abnormal: UWBC 20-50; BYST Trace. 08/11 20:00 Order name: Urine Dipstick-Ancillary; Complete Time: 20:47 EDNC 08/11 20:48 Interpretation: Reviewed. 08/11 20:01 Order name: Urine Dipstick-Ancillary; Complete Time: 20:47 EDNC 08/11 20:48 Interpretation: Reviewed. 08/11 16:33 Order name: IV Saline Lock; Complete Time: 19:50 08/11 16:33 Order name: CT Abd/Pelvis - PO and IV Contrast; Complete Time: 20:47 08/11 20:47 Order name: Urine Culture [facility] 08/11 22:32 Order name: CREATININE WHOLE BLOOD [facility] 08/11 16:33 Order name: Labs collected and sent; Complete Time: 19:50 08/11 16:33 Order name: Urine Dipstick-Ancillary (obtain specimen); Complete Time: 20:01 cp Administered Medications: 19:51 Drug: Zofran (Ondansetron) 4 mg Route: IVP; Site: left antecubital; em6 20:30 Follow up: Response: No adverse reaction em6 21:10 Drug: Rocephin (cefTRIAXone) 1 grams Route: IV; Rate: calculated rate; Site: left em6 antecubital; 21:40 Follow up: Response: No adverse reaction em6 23:09 Follow up: Response: No adverse reaction; IV Status: Completed infusion; IV Intake: [id number] 21:10 Drug: Lactulose 30 grams Volume: 45 ml; Route: PO; em6 21:40 Follow up: Response: No adverse reaction em6 21:10 Drug: Dulcolax (bisacodyl) Suppository 10 mg Route: WI; em6 21:40 Follow up: Response: No adverse reaction em6 Disposition Summary: 08/11/22 22:22 Discharge Ordered Location: Home cp Problem: new cp Symptoms: have improved cp Condition: Stable cp Diagnosis - Constipation, unspecified cp - UTI/ Urinary tract infection, site not specified cp - Unspecified hemorrhoids cp Followup: cp - With: Private Physician - When: 2 - 3 days - Reason: Recheck today's complaints Discharge Instructions: - Discharge Summary Sheet cp - Constipation, Adult cp - High-Fiber Diet cp - Hemorrhoids cp - Urinary Tract Infection, Adult cp Forms: - Medication Reconciliation Form cp - Thank You Letter cp - Antibiotic Education cp - Prescription Opioid Use cp Prescriptions: - Miralax - take 17 gram by ORAL route once daily; 1 bottle; Refills: 0, Product Selection cp Permitted - cefpodoxime 200 mg Oral Tablet - take 1 tablet by ORAL route every 12 hours for 7 days with food; 14 tablet; cp Refills: 0, Product Selection Permitted - Proctofoam HC 1-1 % Rectal foam - apply 1 application by TOPICAL route 3-4 times daily for 8-10 days; 1 bottle; cp Refills: 0, Product Selection Permitted Signatures: Dispatcher [employer] Kimberly George RN RN ss Page, Corey, PA PA cp Karen Nichole RN RN em6 Josse Heath MD MD rt Robert Tolbert RN as6
--- NOTE | 2022-08-11 22:23 | ER ---
Nurse's Notes [facility] Name: Deedee Smith Age: 82 yrs Sex: Female : 1940 Arrival Date: 08/11/2022 Time: 15:15 Bed 2 Private MD: Michael Kauffman C Diagnosis: Constipation, unspecified;UTI/ Urinary tract infection, site not specified;Unspecified hemorrhoids Presentation: 08/11 16:20 Chief complaint: Patient states: Constipation x 1 week. Pt states that she is now ss impacted and needs help. Coronavirus screen: Client denies travel out of the [place] in the last 14 days. Ebola Screen: Patient denies exposure to infectious person. Patient denies travel to an Ebola-affected area in the 21 days before illness onset. Initial Sepsis Screen: Does the patient meet any 2 criteria? No. Patient's initial sepsis screen is negative. Does the patient have a suspected source of infection? No. Patient's initial sepsis screen is negative. Risk Assessment: Do you want to hurt yourself or someone else? Patient reports no desire to harm self or others. Onset of symptoms was August 11, 2022. 16:20 Method Of Arrival: Ambulatory ss 16:20 Acuity: SHAMEKA 3 ss Historical: - Allergies: 16:21 None; ss - PMHx: 16:21 Diabetes - IDDM; Hypercholesterolemia; Hypertension; left breast cancer; ss - PSHx: 16:21 Cholecystectomy; left chemo port; Total abdominal hysterectomy; ss - Immunization history:: Client reports receiving the 2nd dose of the Covid vaccine. - Social history:: Smoking status: Patient denies any tobacco usage or history of. Screenin:45 Abuse screen: Denies threats or abuse. Nutritional screening: No deficits noted. em6 Tuberculosis screening: No symptoms or risk factors identified. Fall Risk IV access (20 points). Total [place] Fall Scale indicates No Risk (0-24 pts). Assessment: 19:45 General: Appears comfortable, Behavior is cooperative. Pain: Denies pain. Neuro: em6 Castrejon Agitation-Sedation Scale (RASS): 0 - Alert and Calm. Cardiovascular: Patient's skin is warm and dry. Respiratory: Airway is patent Respiratory effort is even, unlabored, Respiratory pattern is regular, symmetrical, Breath sounds are clear bilaterally. GI: Abdomen is distended, Bowel sounds present X 4 quads. Abdomen is tender to palpation. : No signs and/or symptoms were reported regarding the genitourinary system. EENT: No signs and/or symptoms were reported regarding the EENT system. Derm: No signs and/or symptoms reported regarding the dermatologic system. Musculoskeletal: Circulation, motion, and sensation intact. 20:45 Reassessment: Patient appears in no apparent distress at this time. No changes from em6 previously documented assessment. Patient and/or family updated on plan of care and expected duration. Pain level reassessed. Patient is alert, oriented x 3, equal unlabored respirations, skin warm/dry/pink. 21:45 Reassessment: Patient appears in no apparent distress at this time. No changes from em6 previously documented assessment. Patient and/or family updated on plan of care and expected duration. Pain level reassessed. Patient is alert, oriented x 3, equal unlabored respirations, skin warm/dry/pink. Vital Signs: 16:20 BP 120 / 49; Pulse 92; Resp 17; Temp 97.4(TE); Pulse Ox 100% on R/A; Weight 81.65 kg; Height 5 ft. 4 in. (162.56 cm); Pain 3/10; 19:45 BP 134 / 58; Pulse 84; Resp 18; Pulse Ox 99% on R/A; em6 21:17 BP 125 / 65; Pulse 72; Resp 18; Pulse Ox 99% on R/A; em6 16:20 Body Mass Index 30.90 (81.65 kg, 162.56 cm) ED Course: 15:15 Patient arrived in ED. rg4 15:15 Michael Kauffman MD is Private Physician. rg4 15:18 Varun Jerez PA is PHCP. cp 15:18 Taz Dale DO is Attending Physician. cp 16:21 Triage completed. ss 16:21 Arm band placed on right wrist. ss 19:36 Karen Nichole, SELIN is Primary Nurse. em6 19:50 CBC with Diff Sent. em6 19:50 CMP Sent. em6 19:50 Lipase Sent. em6 19:50 Inserted saline lock: 20 gauge in left antecubital area, using aseptic technique. Blood em6 collected. 20:01 CBC with Diff Sent. em6 20:01 CMP Sent. em6 20:01 Lipase Sent. em6 20:01 Urine Microscopic Only Sent. em6 20:03 Bed in low position. Call light in reach. Side rails up X2. Pulse ox on. NIBP on. Warm em6 blanket given. 20:26 CT Abd/Pelvis - PO and IV Contrast In Process Unspecified. EDMS 22:31 No provider procedures requiring assistance completed. em6 23:09 IV discontinued, intact, bleeding controlled, No redness/swelling at site. Pressure as6 dressing applied. Administered Medications: 19:51 Drug: Zofran (Ondansetron) 4 mg Route: IVP; Site: left antecubital; em6 20:30 Follow up: Response: No adverse reaction em6 21:10 Drug: Rocephin (cefTRIAXone) 1 grams Route: IV; Rate: calculated rate; Site: left em6 antecubital; 21:40 Follow up: Response: No adverse reaction em6 23:09 Follow up: Response: No adverse reaction; IV Status: Completed infusion; IV Intake: [id number] 21:10 Drug: Lactulose 30 grams Volume: 45 ml; Route: PO; em6 21:40 Follow up: Response: No adverse reaction em6 21:10 Drug: Dulcolax (bisacodyl) Suppository 10 mg Route: MD; em6 21:40 Follow up: Response: No adverse reaction em6 Medication: 22:31 VIS not applicable for this client. em6 Intake: 23:09 IV: 50ml; Total: 50ml. as6 Outcome: 22:22 Discharge ordered by . rupa 23:09 Discharged to home via wheelchair. as6 23:09 Condition: stable 23:09 Discharge instructions given to patient, Instructed on discharge instructions, follow up and referral plans. medication usage, Demonstrated understanding of instructions, follow-up care, medications, Prescriptions given X 3. 23:10 Patient left the ED. as6 Signatures: Dispatcher [employer] EDMS Kimberly Gómez RN RN Varun Holden PA PA cp Garcia, Rubi rg4 Robert Tolbert RN RN as6 Karen Nichole RN RN em6
[2022-08-11 23:39] VITALS: TEMP 97.4
[2022-08-11 23:48] VITALS: O2SAT 99
[2022-08-11 23:54] VITALS: BP 125/65
== END 2022-08-11 23:10 | disposition home or self-care (01) ==
LOC: ER 15:12
DX: K59.00 Constipation, unspecified (principal); N39.0 Urinary tract infection, site not specified; K64.9 Unspecified hemorrhoids; I10 Essential (primary) hypertension
CPT/HCPCS: 87088; 85025; 87086; 36415; 82565; 83690; 80053; 74177; Q9967; J2405; 81003; 81015; 96365; 96366; 96375; 99284

== ENCOUNTER 2022-09-04 12:41 | Emergency (ER) | payer OTHER ==
--- OUTSIDE RECORDS SUMMARY | 2022-09-04 12:46 | XMS REPORT | Clinical Summary ---
:1940 Author Organization [facility] MD [facility] Address [address] [place] [address] Care Team Providers Name Role Phone Gonsalo Gracia MD Unavailable Gonsalo Gracia MD Unavailable Mónica Joseph MD Primary Care Provider Shaan Kauffman MD Unavailable Allergies Active Allergy Reactions Severity Noted Date Comments Paclitaxel 12/18/2021 Facial flushing , feeling hot, throat "scratchy" Medications Medication Sig Dispensed Refills Start Date End Date Status metoprolol tartrate Take 1 tablet (25 3 12/13/2015 Active (LOPRESSOR) 25 mg mg) by mouth tablet daily. sitaGLIPtin (JANUVIA) Take 1 tablet 0 Active 100 mg tablet (100 mg) by mouth daily. atorvastatin (LIPITOR) Take 1 tablet (80 0 0 Active 80 mg tablet mg) by mouth daily. folic acid (FOLVITE) 1 Take 1 tablet (1 0 Active mg tablet mg) by mouth. ondansetron (ZOFRAN) 8 Take 1 tablet [...] Reason: No longer taking, Reported on 06/11/2022 apixaban (Eliquis) 5 mg Take 1 tablet 60 tablet 3 06/24/2022 Active tabletIndications: (5 mg) by Pulmonary embolism, not mouth every 12 otherwise specified (twelve) hours. cefPODoxime (VANTIN) 200 0 08/12/2022 Active mg tablet metFORMIN (GLUCOPHAGE) Take 1 tablet 10 11/16/2015/ Discontinued (Not 500 mg tablet by mouth twice 2021 A pplicable) daily. ranitidine (ZANTAC) 150 Take 1 tablet 0 01/07/2016 0 12/06/ Discontinued (Not mg tablet by mouth 2021 Applicable ) daily. clopidogrel (PLAVIX) 75 Take 1 tablet 0 03/25/2020 1 / Discontinued mg tablet by mouth 2021 (Other ) daily. aspirin 81 mg EC tablet Take 81 mg by 0 / Discontinued (Not mouth daily. 2021 Applica ble) pioglitazone (ACTOS) 30 0 04/22/202208/29 / Discontinued mg tablet 2021 (Error) Active Problems Problem Noted Date Pulmonary embolism 08/29/2022 Last Assessment & Plan: Formatting of th is note might be different from the original. 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 This is considered provoked by cancer and cancer directed therapy. Duration of anticoagulation is 6 months. For her upcoming segmental mastectomy an d axillary lymph node dissection, I recommend that she hold Xarelto 3 days prior to surgery (last dose of Eliquis should be on 09/07/2022). She should restart ant icoagulation on postop day 1. If the pat ient is admitted to the hospital, at the surgical team's discretion, while admitted she can receive low molecular weight or unfractionated subcutaneous heparin. I f she is going to be managed outpatient, she can simply be restarted on Eliquis 5 mg PO BID on postop day 1 or postop day 2 at the surgical team's discretion based on operative findings and risk of bleeding. 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 Cancer Staging: Clinical stage from 12/03: Stage IIIB (cT2, cN3, cM0, G3, ER+, TN+, HER2-) - Unsigned Essential (primary) hypertension 04/16/2020 Hyperlipidemia 04/16/2020 Gastroesophageal reflux disease 04/16/2020 History of malignant neoplasm of endometrium 0 Malignant neoplasm of endometrium 01/16/2016 Cancer Staging: Clinical stage from 02/24: Stage IA (Primary) - Signed by Mónica Joseph MD on 02/26/2016 Diabetes mellitus 01/16/2016 Encounters Date Type Specialty Care Team Description 08/29/2022 Anesthesia Event Anesthesiology Veronica Membreno MA 08/29/2022 POEM Appointments Anesthesiology Mónica Joseph MD 08/29/[address] [facility] Encounter for other preprocedural examination (Primary Dx); Mallory gray PA Infiltrating duct carcinoma of right fem moustapha breast; Derik Quintanilla MD Type 2 diabete s mellitus well controlled; Hyperlipidemia, not otherwise specified; Essential (prim love) hypertension 08/29/2022 Office Visit Hematology Olive, Pulmonary embol ism, not otherwise specified (Primary Dx); Gaviota Garcia MD Encounter for o ther preprocedural examination; Infiltrating du ct carcinoma of right female breast 08/29/[address] [facility] Infiltra ting duct Mallory gray PA carcinoma of r ight female breast 08/29/2022 Travel 08/20/2022 Orders Only Oncology Haiylp, Luci, Infiltrating du ct NUTRITIONALIST carcinoma of ri ght female breast (Primary Dx) 08/19/2022 Office Visit Breast Surgical Refinetti, Infiltrating duct Oncology Ami Guerrero carcinoma of ri ght MD Vinod female breast 08/19/2022 Ancillary Procedure Radiology Ediei, Infiltra ting duct Ami Guerrero carcinoma of ri ght MD Vinod female breast 08/19/2022 Ancillary Procedure Radiology Pankaj, Infiltra ting duct Ami Guerrero carcinoma of ri t MD Vinod female breast 08/19/2022 Travel 08/06/2022 Infusion Infusion Services Gale Boyce, Infiltrati ng duct FASHION MARKETER carcinoma of right Lex, female breast Lorena Warren RN (Primary Dx) 08/06/2022 Travel 08/05/2022 Orders Only Breast Medical Zaida Blackmon, Oncology PA 07/17/2022 Infusion Infusion Services Gale Boyce, Infiltrati ng duct FASHION MARKETER carcinoma of ri ght female breast (Primary Dx) 07/17/2022 Travel 07/17/2022 Orders Only Oncology Gurpreet Griggs, TITI 07/16/2022 Telemedicine Breast Medical [facility], Malignant wiliam plasm of central portion of right female breast (Primary Dx); Oncology MD Nuzhat 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; Hypercalcemia; Adjustment diso rder with anxiety 07/14/2022 Orders Only Breast Medical Sadie-Iheme, Oncology MD Nuzhat 07/09/2022 Telephone Breast Surgical [facility] Oncology Mallory gray PA 07/09/2022 Orders Only Breast Surgical [facility] Oncology Mallory gray PA 07/09/2022 Orders Only Breast Medical Sadie-Iheme, Infiltrating duct [...] PA 06/30/2022 Telephone Breast Surgical [facility] Oncology Mallory gray PA 06/30/2022 Telephone Breast Medical Diann Gan Oncology Michael, RN 06/30/2022 Orders Only Breast Surgical Leary-Vazqu [...] Only Oncology Gurpreet Griggs, Pulmonary embol ism, NUTRITIONALIST not otherwise specified (Prim love Dx) 06/24/2022 Telephone Breast Medical Diann Gan Oncology Michael, RN 06/23/2022 Ancillary Procedure Radiology Refinetti, Infiltra ting duct Kyra carcinoma of ri ght MD Vinod female breast 06/23/2022 Travel 06/11/2022 Infusion Infusion Services Gale Boyce Infiltrati ng duct FASHION MARKETER carcinoma of right Lex, female breast Lorena Warren RN (Primary Dx) 06/11/2022 Office Visit Breast Medical Sadie-Ihwoody, Infiltrating duct Oncology MD Nuzhat carcinoma of right Harjinder, female breast Madison, HYPNOTHERAPIST (Primary Dx) 06/11/2022 Orders Only Breast Medical Sadie-Jose Cruz, Oncology MD Nuzhat 06/11/2022 Travel 06/11/2022 Telephone Breast Medical Diann Gan Oncology Michael, RN 06/10/2022 Orders Only Breast Medical Sadie-Iheme, Infiltrating duct Oncology MD Nuzhat carcinoma of ri ght female breast (Primary Dx) 05/21/2022 Infusion Infusion Services Gale Boyce Infiltrati ng duct FASHION MARKETER carcinoma of ri ght female breast (Primary Dx) 05/21/2022 Travel 05/14/2022 Orders Only Breast Surgical [facility] Oncology Mallory gray PA 05/13/2022 Office Visit Breast Medical Sadie-Iheme, Infiltrating duct Oncology MD Nuzhat carcinoma of ri ght female breast (Primary Dx) 05/13/2022 Travel 04/22/2022 Orders Only Breast Medical Gale Boyce Oncology FASHION MARKETER 04/17/2022 Prep for Surgery Breast Surgical [facility] Infiltr ating duct Oncology Mallory gray PA carcinoma of r ight female breast (Primary Dx) 04/17/2022 Orders Only Breast Surgical [facility] Infiltratin g duct Oncology Mallory gray PA carcinoma of r ight female breast (Primary Dx) 04/16/2022 Telemedicine Breast Medical Bereket, Infiltrating duct Oncology MD Nuzhat carcinoma of ri ght female breast 04/11/2022 Office Visit Breast Medical Bereket, Infiltrating duct [...] Boyce, Gale, Infiltratin g duct Medical Oncology FASHION MARKETER carcinoma o f right female breast (Primary Dx) 04/09/2022 Orders Only Breast Medical Bereket, Infiltrating duct Oncology MD Nuzhat carcinoma of ri ght female breast (Primary Dx) 04/09/2022 Telephone Breast Medical Gale Boyce, Oncology FASHION MARKETER 04/01/2022 Infusion Infusion Services Gale Boyce, Infiltrati ng duct FASHION MARKETER carcinoma of ri ght female breast (Primary Dx) 04/01/2022 Travel 03/25/2022 Infusion Infusion Services Gale Boyce, Infiltrati ng duct FASHION MARKETER carcinoma of ri ght female breast (Primary Dx) 03/25/2022 Orders Only Breast Medical Bereket Oncology MD Nuzhat 03/25/2022 Orders Only Breast Medical Gale Boyce, Infiltrating duct Oncology FASHION MARKETER carcinoma of ri ght female breast (Primary Dx) 03/25/2022 Travel 03/18/2022 Infusion Infusion Services Clifton Cubaati ng duct MD Nuzhat carcinoma of ri ght female breast (Primary Dx) 03/18/2022 Travel 03/13/2022 Orders Only Gastrointestinal Boyce, Gale, Infiltratin g duct Medical Oncology FASHION MARKETER carcinoma o f right female breast (Primary Dx) 03/11/2022 Telemedicine Breast Medical Bereket Infiltrating duct Oncology MD Nuzhat carcinoma of ri ght female breast (Primary Dx) 03/11/2022 Infusion Infusion Services Imelda Cuba ng duct MD Nuzhat carcinoma of ri ght female breast 03/11/2022 Travel 03/10/2022 Orders Only Breast Medical Gale Boyce, Oncology FASHION MARKETER 03/10/2022 Orders Only Breast Medical Bereket Infiltrating duct Oncology MD Nuzhat carcinoma of ri ght female breast (Primary Dx) 03/04/2022 Infusion Infusion Services Gale Boyce, Infiltrati ng duct FASHION MARKETER carcinoma of ri ght female breast (Primary Dx) 03/04/2022 Orders Only Breast Surgical [facility] Oncology Mallory gray PA 03/04/2022 Travel 03/03/2022 Orders Only Breast Surgical [facility] Oncology ez, Mallory, PA 03/03/2022 Orders Only Breast Surgical [facility] Infiltratin g duct Oncology ez, Mallory, PA carcinoma of r ight female breast (Primary Dx) 02/25/2022 Infusion Infusion Services Gale Boyce, Infiltrati ng duct FASHION MARKETER carcinoma of ri ght female breast (Primary Dx) 02/25/2022 Travel 02/24/2022 Orders Only Breast Surgical [facility] Infiltratin g duct Oncology ezMallory, PA carcinoma of r ight female breast (Primary Dx) 02/18/2022 Infusion Infusion Services Gale Boyce, Infiltrati ng duct FASHION MARKETER carcinoma of ri ght female breast (Primary Dx) 02/18/2022 Orders Only Breast Medical Gale Boyce, Oncology FASHION MARKETER 02/18/2022 Travel 02/18/2022 Orders Only Breast Medical Bereket Oncology MD Nuzhat 02/11/2022 Office Visit Breast Medical Bereket Infiltrating duct Oncology MD Nuzhat carcinoma of ri ght female breast (Primary Dx) 02/11/2022 Travel 02/04/2022 Infusion Infusion Services Gale Boyce, Infiltrati ng duct FASHION MARKETER carcinoma of ri ght female breast (Primary Dx) 02/04/2022 Travel 01/29/2022 Infusion Infusion Services Boyce, Gale, Infiltrati ng duct FASHION MARKETER carcinoma of ri ght female breast (Primary Dx) 01/29/2022 Travel 01/23/2022 Infusion Infusion Services Boyce, Gale, Infiltrati ng duct FASHION MARKETER carcinoma of ri ght female breast 01/23/2022 Orders Only Gastrointestinal Boyce, Gale, Infiltratin g duct Medical Oncology FASHION MARKETER carcinoma o f right female breast (Primary Dx) 01/23/2022 Travel 01/22/2022 Orders Only Gastrointestinal Boyce, Gale, Medical Oncology FASHION MARKETER 01/17/2022 Hospital Encounter Cardiology Boyce, Gale, Infiltrat ing duct FASHION MARKETER carcinoma of ri ght female breast 01/17/2022 Travel 01/15/2022 Infusion Infusion Services Boyce, Gale, Infiltrati ng duct FASHION MARKETER carcinoma of ri ght female breast (Primary Dx) 01/15/2022 Telemedicine Breast Medical Sadie-Ihwoody, Infiltrating duct Oncology MD Nuzhat carcinoma of ri ght female breast (Primary Dx) 01/15/2022 Travel 01/14/2022 Orders Only Breast Medical Sadie-Ihwoody, Oncology MD Nuzhat 01/08/2022 Infusion Infusion Services Boyce, Gale, Infiltrati ng duct FASHION MARKETER carcinoma of ri ght female breast (Primary [...] Infusion Services Boyce, Gale, Infiltrati ng duct FASHION MARKETER carcinoma of ri ght female breast 01/01/2022 Orders Only Breast Medical Ventura Boyceisti, Infiltrating duct Oncology FASHION MARKETER carcinoma of ri ght female breast (Primary Dx) 01/01/2022 Orders Only Breast Surgical [facility] Oncology Mallory gray PA 01/01/2022 Travel 12/31/2021 Orders Only Breast Medical Bereket, Oncology MD Nuzhat 12/31/2021 Orders Only Breast Medical Boyce, Gale, Oncology FASHION MARKETER 12/25/2021 Infusion Infusion Services Boyce, Gale, Infiltrati ng duct FASHION MARKETER carcinoma of ri ght female breast (Primary Dx) 12/25/2021 Travel 12/20/2021 Telephone Infusion Services Alice Canales Follow-up (C1D1 Michael, RN chemo callback) 12/19/2021 Orders Only Oncology Nuzhat Cuba MD 12/19/2021 Orders Only Gastrointestinal Boyce, Gale, Medical Oncology FASHION MARKETER 12/18/2021 Infusion Infusion Services Boyce, Gale, Infiltrati ng duct FASHION MARKETER carcinoma of ri ght female breast (Primary Dx) 12/18/2021 Orders Only Breast Medical Boyce, Gale, Oncology FASHION MARKETER 12/18/2021 Travel 12/16/2021 Hospital Encounter Radiology Georgie Boycei, Infiltrat ing duct FASHION MARKETER carcinoma of right Avritscher, female breast MD Chandra 12/16/2021 Hospital Encounter Lab Hannah Mora PA 12/16/2021 Documentation Radiology Brenda Phipps RN 12/16/2021 Travel 12/16/2021 Orders Only Breast Surgical [facility]qu Infiltratin g duct Oncology Mallory gray, PA carcinoma of r ight female breast (Primary Dx) 12/16/2021 Orders Only Breast Surgical [facility] Infiltratin g duct Oncology ezMallory, PA carcinoma of r ight female breast (Primary Dx) 12/16/2021 Orders Only Radiology Scott Carrion, 12/13/2021 Hospital Encounter Radiology Opal, Infiltrat ing [...] female breast 12/06/2021 Ancillary Procedure Radiology Leary-Vazqu ez, Mallory, PA 12/06/2021 Ancillary Procedure Radiology [facility] Infiltr ating duct ez, Mallory, PA carcinoma of r ight female breast 12/06/2021 Orders Only Breast Medical Sadie-Jose Cruz, Oncology MD Nuzhat 12/06/2021 Orders Only Breast Surgical [facility] Infiltratin g duct Oncology ez, Mallory, PA carcinoma of r ight female breast (Primary Dx) 12/06/2021 Travel 12/04/2021 Orders Only Breast Surgical [facility] Oncology ez, Mallory, PA 11/26/2021 Orders Only Breast Surgical [facility] Infiltratin g duct Oncology ez, Mallory, PA carcinoma of r ight female breast (Primary Dx) 11/26/2021 Telephone Breast Surgical Karritti, Oncology Ami Brock MD 11/26/2021 Orders Only Breast Surgical [facility] Infiltratin g duct Oncology ez, Mallory, PA carcinoma of r ight female breast (Primary Dx) 11/22/2021 Office Visit Breast Surgical Pankaj, Mammography Oncology Ami Brock MD 11/22/2021 Travel 11/20/2021 Ancillary Procedure Radiology Arpan Joseph MD 11/20/2021 Ancillary Procedure Radiology Arpan Joseph MD 11/20/2021 Ancillary Procedure Radiology Mammogra phjay jay abnormal 11/20/2021 Ancillary Procedure Radiology Alejandro Murry PA abnormal 11/20/2021 Ancillary Procedure Radiology Tio Murrya TIAN Obrien abnormal 11/20/2021 Travel 11/14/2021 Orders Only Gynecology Jeanmarie, Ronan abn ormal (Primary Dx); TIAN Gallagher Malignant neopl asm of endometrium after 09/04/2021 Immunizations Name Administration Dates Next Due Suhaila SARS-CoV-2 Vaccination 07/15/2021, 01/14/2021, 12/17 Surgical History [...] in contact with No / Unsu re 08/29/2022 8:55 AM SAUSAGE COOKER someone who was confirmed or suspected to [...] Sign Reading Time Taken Comments Blood Pressure 99/64 08/29/2022 9:12 AM SAUSAGE COOKER Pulse 72 08/29/2022 9:12 AM SAUSAGE COOKER Temperature 36.8 C (98.2 F) 08/29/2022 9:12 AM SAUSAGE COOKER Respiratory Rate 18 08/29/2022 9:12 AM SAUSAGE COOKER Oxygen Saturation 98% 08/29/2022 9:12 AM SAUSAGE COOKER Inhaled Oxygen Concentration - - Weight 74.8 kg (164 lb 14.5 oz) 08/29/2022 9:12 AM SAUSAGE COOKER Height 161.5 cm (5' 3.58") 08/29/2022 9:12 AM SAUSAGE COOKER Body Mass Index 28.68 08/29/2022 9:12 AM SAUSAGE COOKER Plan of Treatment Date Type Specialty Care Team Description 09/10/2022 Clinical Support Covid Mallory Marino PA [address] [place] [address] 7703 09/10/2022 Appointment Radiology Mallory Marino PA [address] [place] [address] 7703 09/11/2022 Hospital Encounter Ami Lira MD [address] [place] [address] 7703 09/11/2022 Surgery Ami Lira MD MASTECTOMY - OTHER [address] [place] [address] 7703 10/03/2022 Lab Lab Luci Hightower NP [address] [place] [address] 7703 10/03/2022 Office Visit Breast Surgical Ami Lira Oncology Yolanda Brock MD [address] [place] [address] 7703 10/03/2022 Follow-Up Breast Medical Sadie-Iheme, Oncology MD Nuzhat [address] [place] [address] 7703 10/09/2022 Consult Radiation Oncology Maine Vitale MD [address] [place] [address] 7703 11/21/2022 Office Visit Hematology Gaviota Schaefer MD [address] [place] [phone] Name Priority Associated Diagnoses Date/Time SEGMENTAL MASTECTOMY - OTHER Infiltrating duct 1 11:45 AM carcinoma of right female SAUSAGE COOKER breast AXILLARY LYMPHADENECTOMY Infiltrating duct 09/11 11:45 AM carcinoma of right female SAUSAGE COOKER breast PORT-A-CATH REMOVAL Infiltrating duct 09/11/2022 11:45 AM carcinoma of right female SAUSAGE COOKER breast Health Maintenance Due Date Last Done Comments COVID-19 Vaccination (4 - Booster 09/09/2021 07/15/2021, , for Moderna series) 12/17/2020 Medical Devices Implanted Type Area Service Center Coordinator Device Shelf Model / Identifier Expiration Date Ser ial / Lot [place], [employer] Slim 8fr - [id number] Port BARD PERIPHE RAL 12/12/2022 [id number] / Implanted: Qty: 1 on 12/16/2021 at [facility] [id number] / [id number] Procedures Procedure Name Priority Date/Time Associated Comments Diagnosis MANUAL DIFFERENTIAL Routine 08/29/2022 12:26 Infiltrating duct Results for this PM SAUSAGE COOKER carcinoma of right procedure are in female breast the results section. Results CBC Routine 08/29/2022 12:26 Infiltrating duct Result s for this PM SAUSAGE COOKER carcinoma of right procedure are in female breast the results section. FRACTIONATED BILIRUBIN Routine 08/29/2022 12:26 Infiltrating d uct Results for this PM SAUSAGE COOKER carcinoma of right procedure are in female breast the results section. TOTAL PROTEIN Routine 08/29/2022 12:26 Infiltrating duct Resul ts for this PM SAUSAGE COOKER carcinoma of right procedure are in female breast the results section. ASPARTATE Routine 08/29/2022 12:26 Infiltrating duct Result s for this AMINOTRANSFERASE PM SAUSAGE COOKER carcinoma of right proce dure are in female breast the results section. ALANINE AMINOTRANSFERASE Routine 08/29/2022 12:26 Infiltrating duct Results for this PM SAUSAGE COOKER carcinoma of right procedure are in female breast the results section. ALKALINE PHOSPHATASE Routine 08/29/2022 12:26 Infiltrating maritza t Results for this PM SAUSAGE COOKER carcinoma of right procedure are in female breast the results section. ALBUMIN LEVEL Routine 08/29/2022 12:26 Infiltrating duct Resul ts for this PM SAUSAGE COOKER carcinoma of right procedure are in female breast the results section. CALCIUM LEVEL TOTAL Routine 08/29/2022 12:26 Infiltrating duct Results for this PM SAUSAGE COOKER carcinoma of right procedure are in female breast the results section. .GLOMERULAR FILTRATION Routine 08/29/2022 12:26 Infiltrating d uct Results for this RATE PM SAUSAGE COOKER carcinoma of right procedure are in female breast the results section. SERUM CREATININE Routine 08/29/2022 12:26 Infil[address]ating duct Re sults for this PM SAUSAGE COOKER carcinoma of right procedure are in female breast the results section. ELECTROLYTE PANEL Routine 08/29/2022 12:26 Infiltrating duct R esults for this PM SAUSAGE COOKER carcinoma of right procedure are in female breast the results section. BLOOD UREA NITROGEN Routine 08/29/2022 12:26 Infil[address]ating duct Results for this PM SAUSAGE COOKER carcinoma of right procedure are in female breast the results section. GLUCOSE LEVEL Routine 08/29/2022 12:26 Infiltrating duct Resul ts for this PM SAUSAGE COOKER carcinoma of right procedure are in female breast the results section. COMPLETE BLOOD COUNT W/ Routine 08/29/2022 12:26 Infiltrating duct DIFFERENTIAL PM SAUSAGE COOKER carcinoma of right female breast COMPREHENSIVE METABOLIC Routine 08/29/2022 12:26 Infiltrating duct PANEL PM SAUSAGE COOKER carcinoma of right female breast HEMOGLOBIN A1C Routine 08/29/2022 12:26 Infiltrating duct Resu lts for this PM SAUSAGE COOKER carcinoma of right procedure are in female breast the results section. US CHEST Routine 08/19/2022 11:55 Infiltrating duct Result s for this AM SAUSAGE COOKER carcinoma of right procedure are in female breast the results section. US BREAST COMPLETE RIGHT Routine 08/19/2022 11:55 Infiltrating duct Results for this AM SAUSAGE COOKER carcinoma of right procedure are in female breast the results section. MAMMO DIGITAL DIAGNOSTIC Routine 08/19/2022 10:24 Infiltrating duct Results for this RIGHT W JOE AM SAUSAGE COOKER carcinoma of right procedure are in female breast the results section. FRACTIONATED BILIRUBIN Routine 08/06/2022 8:[address] Results for this AM SAUSAGE COOKER carcinoma of right procedure are in female breast the results section. TOTAL PROTEIN Routine 08/06/2022 8:22 Infiltrating duct Result s for this AM SAUSAGE COOKER carcinoma of right procedure are in female breast the results section. ASPARTATE Routine 08/06/2022 8:22 Infiltrating duct Results for this AMINOTRANSFERASE AM SAUSAGE COOKER carcinoma of right proce dure are in female breast the results section. ALANINE AMINOTRANSFERASE Routine 08/06/2022 8:22 Infiltrating duct Results for this AM SAUSAGE COOKER carcinoma of right procedure are in female breast the results section. ALKALINE PHOSPHATASE Routine 08/06/2022 8:22 Infiltrating duct Results for this AM SAUSAGE COOKER carcinoma of right procedure are in female breast the results section. ALBUMIN LEVEL Routine 08/06/2022 8:22 Infiltrating duct Result s for this AM SAUSAGE COOKER carcinoma of right procedure are in female breast the results section. CALCIUM LEVEL TOTAL Routine 08/06/2022 8:22 Infil[address]ating duct Results for this AM SAUSAGE COOKER carcinoma of right procedure are in female breast the results section. .GLOMERULAR FILTRATION Routine 08/06/2022 8:[address] Results for this RATE AM SAUSAGE COOKER carcinoma of right procedure are in female breast the results section. SERUM CREATININE Routine 08/06/2022 8:22 Infil[address]ating duct Res ults for this AM SAUSAGE COOKER carcinoma of right procedure are in female breast the results section. ELECTROLYTE PANEL Routine 08/06/2022 8:22 Infil[address]ating duct Re sults for this AM SAUSAGE COOKER carcinoma of right procedure are in female breast the results section. BLOOD UREA NITROGEN Routine 08/06/2022 8:22 Infil[address]ating duct Results for this AM SAUSAGE COOKER carcinoma of right procedure are in female breast the results section. GLUCOSE LEVEL Routine 08/06/2022 8:22 Infiltrating duct Result s for this AM SAUSAGE COOKER carcinoma of right procedure are in female breast the results section. MANUAL DIFFERENTIAL Routine 08/06/2022 8:22 Infil[address]ating duct Results for this AM SAUSAGE COOKER carcinoma of right procedure are in female breast the results section. Results CBC Routine 08/06/2022 8:22 Infil[address]ating duct Results for this AM SAUSAGE COOKER carcinoma of right procedure are in female breast the results section. COMPREHENSIVE METABOLIC Routine 08/06/2022 8:22 Infiltrating d uct PANEL AM SAUSAGE COOKER carcinoma of right female breast COMPLETE BLOOD COUNT W/ Routine 08/06/2022 8:22 Infiltrating d uct DIFFERENTIAL AM SAUSAGE COOKER carcinoma of right female breast MANUAL DIFFERENTIAL [...] Mammography Resu lts for this BILATERAL PM SAUSAGE COOKER abnormal procedure are i n the results section. US GUIDED AXILLARY LYMPH Routine 11/20/2021 5:47 Mammography Results for this NODE FNA LEFT PM SAUSAGE COOKER abnormal procedure are in the results section. US GUIDED BREAST BIOPSY Routine 11/20/2021 5:47 Mammography R esults for this LEFT PM SAUSAGE COOKER abnormal procedure are i n the results section. US GUIDED Routine 11/20/2021 5:47 Mammography Results for this INFRACLAVICULAR LYMPH PM SAUSAGE COOKER abnormal proced ure are in NODE FNA - RIGHT the results section. US GUIDED BREAST BIOPSY Routine 11/20/2021 5:47 Mammography R esults for this RIGHT PM SAUSAGE COOKER abnormal procedure are i n the results section. US HEAD NECK SOFT TISSUE Routine 11/20/2021 5:47 Mammography Results for this PM SAUSAGE COOKER abnormal procedure are i n the results section. US CHEST Routine 11/20/2021 5:47 Mammography Results for this PM SAUSAGE COOKER abnormal procedure are i n the results section. US BREAST COMPLETE Routine 11/20/2021 5:47 Mammography Result s for this BILATERAL PM SAUSAGE COOKER abnormal procedure are i n the results section. CYTOLOGY IMAGE-GUIDED Routine 11/20/2021 3:48 Mammography Res ults for this FNA INTERPRETATION PM SAUSAGE COOKER abnormal procedure are in the results section. PATHOLOGY BIOPSY Routine 11/20/2021 3:46 Mammography Results for this INTERPRETATION PM SAUSAGE COOKER abnormal procedure are in the results section. CYTOLOGY IMAGE-GUIDED Routine 11/20/2021 3:44 Mammography Res ults for this FNA INTERPRETATION PM SAUSAGE COOKER abnormal procedure are in the results section. PATHOLOGY BIOPSY Routine 11/20/2021 3:39 Mammography Results for this INTERPRETATION PM SAUSAGE COOKER abnormal procedure are in the results section. MAMMO DIGITAL DIAGNOSTIC Routine 11/20/2021 1:50 Mammography Results for this BILATERAL W JOE PM SAUSAGE COOKER abnormal procedure a re in the results section. OSI MAMMO BILATERAL Routine 11/01/2021 12:43 Cancer Resu lts for this PM SAUSAGE COOKER procedure are i n the results section. OSI US BREAST Routine 11/01/2021 12:43 Cancer Results fo r this PM SAUSAGE COOKER procedure are i n the results section. after 09/04/2021 Results .Serum Creatinine (08/29/2022 12:26 PM SAUSAGE COOKER)Only the most recent of6 results within the time period is included. P athologist Signature Creatinine 0.83 0.51 - 0.95 [facility] mg/dL [facility] Specimen Anatomical Collection Method Collection Time Receive d Time (Source) Location / / Volume Laterality Blood 08/29/2022 12:26 08/29/2022 PM SAUSAGE COOKER 12:45 PM SAUSAGE COOKER Mallory OVERTON LAB BLOOD ORDERABLES Performing Organization Address City/State/ZIP Code Phon e Number [facility] CANCER Unless otherwise noted, [place] [address] [place] all lab tests performed by: Division of Pathology and Laboratory Medicine Sean5 Suzanne Hurtado (ABNORMAL) .CBC (08/29/2022 12:26 PM SAUSAGE COOKER)Only the most recent of24 resultswithin the time period is included. Analysis Performed At Patho logist Time Signature WBC 6.1 4.0 - 11.0 [facility] K/uL [facility] RBC 3.54 (L) 4.00 - [facility] 5.50 M/uL [facility] Hgb 10.9 (L) 12.0 - [facility] 16.0 gm/dL DIAGNOSTIC CENTER Hct 33.4 (L) 37.0 - [facility] 47.0 % DI[facility]ENTER MCV 94 82 - 98 fL [facility] DIAGNO[facility]ENTER MCH 30.8 27.0 - [facility] 31.0 pg DIAGNOSTIC CENTER MCHC 32.6 31.0 - [facility] 36.0 gm/dL DIAGNOSTIC CENTER RDW-SD 67.0 (H) 35.1 - [facility] 46.3 fL DIAGNOSTIC CENTER RDW-CV 19.3 (H) 12.0 - [facility] 15.5 % DI[facility]IC [facility]ENTER Platelet count 366 140 - 440 [facility] K/uL DI[facility]IC CENTER MPV 9.6 4.0 - 10.4 [facility] DIAGNOSTIC CENTER INRBC 0.0 <=0.0 % [facility] DIAGNOSTIC [facility]ENTER Comment: The INRBC (instrument NRBC) value reflec ts the enumeration of nucleated red blood cells contained i n a 200uL sample of whole blood analyzed by the instrumen t. This value may differ from the NRBC value reported in a manual differential, which is based on a 100 cell differentia l. Specimen Anatomical Collection Method Collection Time Receive d Time (Source) Location / / Volume Laterality Blood 08/29/2022 12:26 08/29/2022 PM SAUSAGE COOKER 12:38 PM SAUSAGE COOKER Mallory OVERTON LAB BLOOD ORDERABLES Performing Organization Address City/State/ZIP Code Phon e Number [facility] DIAGNOSTIC Unless otherwise noted, [place] [address] C[place] all lab tests performed by: Division of Pathology and Laboratory Medicine [facility] Glomerular Filtration Rate (08/29/2022 12:26 PM SAUSAGE COOKER)Only the most recent of6 resultswithin the time period is included. P athologist Signature eGFR 70 >=60 [facility] mL/min/1.73 [facility] sq. m Comment: The eGFRcr is calculated with the 2020 KD-EPI creatinine equation using creatinine, patient's age, [...] G1 nor G2 fulfill criteria for CKD. Specimen Anatomical Collection Method Collection Time Receive d Time (Source) Location / / Volume Laterality Blood 08/29/2022 12:26 08/29/2022 PM SAUSAGE COOKER 12:45 PM SAUSAGE COOKER Mallory OVERTON LAB BLOOD ORDERABLES Performing Organization Address City/[facility] Phon e Number [facility] Unless otherwise noted, [address] all lab tests performed by: Division of Pathology and Laboratory Medicine [address] [place] [address] Fractionated Bilirubin (08/29/2022 12:26 PM SAUSAGE COOKER)Only the most recent of3 results within the time period is included. athologist Signature Bili Total 0.3 <=1.2 mg/dL [facility] Comment: Indocyanine Green (ICG) may cause falsel y elevated bilirubin results. Total and direct bilirubin must not be measured from samples containing indocyanine green. False elevation of total bilirubin can b e seen in patients with IgG concentrations above 28 g/L. Bili Direct <0.2 <=0.3 mg/dL [facility] Comment: Indocyanine Green (ICG) may cau se falsely elevated bilirubin results. Total and direct bilirubin must not be measure d from samples containing indocyanine green. Bili Indirect See Note 0.0 - 0.9 mg/dL [place] [facility] Comment: Unable to calculate Indirect Bi lirubin result due to some parameters are outside reportable range Specimen Anatomical Collection Method Collection Time Receive d Time (Source) Location / / Volume Laterality Blood 08/29/2022 12:26 08/29/2022 PM SAUSAGE COOKER 12:45 PM SAUSAGE COOKER Mallory OVERTON LAB BLOOD ORDERABLES Performing Organization Address City/[facility] Phon e Number [facility] Unless otherwise noted, [address] all lab tests performed by: Division of Pathology and Laboratory Medicine [address] [place] (ABNORMAL) Differential (08/29/2022 12:26 PM SAUSAGE COOKER)Only the most recent of24 resultswithin the time period is included. athologist [facility] Neutrophil % 72.6 (H) 42.0 - [facility] 66.0 % DIAGNOSTIC CENTER Lymphocyte % 13.5 (L) 24.0 - [facility] 44.0 % DIAGNOSTIC CENTER Monocyte % 11.6 (H) 2.0 - 7.0 [facility] % DIAGNOSTIC CENTER Eosinophil % 0.5 (L) 1.0 - 4.0 [facility] % DIAGNOSTIC CENTER Basophil % 1.3 (H) 0.0 - 1.0 [facility] % DIAGNOSTIC CENTER IGRE % 0.5 (H) 0.0 - 0.4 [facility] % DI[facility]ENTER Comment: IGRE % count includes Metamyelo cytes, Myelocytes, and Promyelocytes. Neutrophil Abs 4.40 1.70 - 7.30 K/uL [facility] Lymphocyte Abs 0.82 (L) 1.00 - 4.80 K/uL [facility] Monocyte Abs 0.70 0.08 - 0.70 K/uL [facility] DIAGNOSTIC [place] Eosinophil Abs 0.03 (L) 0.04 - 0.40 K/uL [facility] Basophil Abs 0.08 0.00 - 0.10 [facility]IC [place] IG Abs 0.03 0.00 - 0.04 K/uL [place] [facility] PILO Garcia DIAGNOSTIC [place] Specimen Anatomical Collection Method Collection Time Receive d Time (Source) Location / / Volume Laterality Blood 08/29/2022 12:26 08/29/2022 PM SAUSAGE COOKER 12:38 PM SAUSAGE COOKER Mallory OVERTON LAB BLOOD ORDERABLES Performing Organization Address City/State/ZIP Code Phon e Number [facility] DIAGNOSTIC Unless otherwise noted, [place] [address] [facility] all lab tests performed by: Division of Pathology and Laboratory Medicine [address] (ABNORMAL) BUN (08/29/2022 12:26 PM SAUSAGE COOKER)Only the most recent of6 resultswithin the time period is included. athologist [facility] BUN 26 (H) 6 - 23 [facility] mg/dL [facility] Specimen Anatomical Collection Method Collection Time Receive d Time (Source) Location / / Volume Laterality Blood 08/29/2022 12:26 08/29/2022 PM SAUSAGE COOKER 12:45 PM SAUSAGE COOKER Mallory Marino PA LAB BLOOD ORDERABLES Performing Organization Address City/[facility]/ZIP Code Phon e Number [facility] CANCER Unless otherwise noted, [address] all lab tests performed by: Division of Pathology and Laboratory Medicine [address] [place], [place] [address] ALT (08/29/2022 12:26 PM SAUSAGE COOKER)Only the most recent of10 resultswithin the time period is included. athologist Signature ALT 13 <=33 U/L [facility] Specimen Anatomical Collection Method Collection Time Receive d Time (Source) Location / / Volume Laterality Blood 08/29/2022 12:26 08/29/2022 PM SAUSAGE COOKER 12:45 PM SAUSAGE COOKER Mallory Marino PA LAB BLOOD ORDERABLES Performing Organization Address City/[facility] Phon e Number [facility] CANCER Unless otherwise noted, [address] all lab tests performed by: Division of Pathology and Laboratory Medicine [address] [place], [place] [address] Aspartate Aminotransferase (08/29/2022 12:26 PM SAUSAGE COOKER)Only the most recent of10 resultswithin the time period is included. athologist Signature AST 15 <=32 U/L [facility] Specimen Anatomical Collection Method Collection Time Receive d Time (Source) Location / / Volume Laterality Blood 08/29/2022 12:26 08/29/2022 PM SAUSAGE COOKER 12:45 PM SAUSAGE COOKER Mallory Leary-Martir PA LAB BLOOD ORDERABLES Performing Organization Address City/[facility] Phon e Number [facility] CANCER Unless otherwise noted, [address] all lab tests performed by: Division of Pathology and Laboratory Medicine [address] [place], [place] [address] Total Protein (08/29/2022 12:26 PM SAUSAGE COOKER)Only the most recent of3 resultswithin the time period is included. athologist Signature Total Protein 7.0 6.4 - 8.3 [facility] g/dL [facility] Specimen Anatomical Collection Method Collection Time Receive d Time (Source) Location / / Volume Laterality Blood 08/29/2022 12:26 08/29/2022 PM SAUSAGE COOKER 12:45 PM SAUSAGE COOKER Mallory OVERTON LAB BLOOD ORDERABLES Performing Organization Address City/[facility]/ZIP [facility] Phon e Number [facility] CANCER Unless otherwise noted, [address] all lab tests performed by: Division of Pathology and Laboratory Medicine Frederic Hurtado Alkaline Phosphatase (08/29/2022 12:26 PM SAUSAGE COOKER)Only the most recent of10 results within the time period is included. athologist [facility] Alk Phos 54 35 - 104 [facility] U/L [facility] Specimen Anatomical Collection Method Collection Time Receive d Time (Source) Location / / Volume Laterality Blood 08/29/2022 12:26 08/29/2022 PM SAUSAGE COOKER 12:45 PM SAUSAGE COOKER Mallory OVERTON LAB BLOOD ORDERABLES Performing Organization Address City/[facility] Phon e Number [facility] CANCER Unless otherwise noted, [address] all lab tests performed by: Division of Pathology and Laboratory Medicine Frederic Hurtado (ABNORMAL) Hemoglobin A1c (08/29/2022 12:26 PM SAUSAGE COOKER) athologist [facility] A1C 7.0 (H) 4.3 - 5.6 % [facility] Comment: HbA1c values >=6.5% are diagnostic of di abetes mellitus. Diagnosis should be confirmed by repeat testing. Therapeutic Action suggested: >8.0% HbA1 c; Goal of therapy: <7.0% HbA1c Specimen Anatomical Collection Method Collection Time Receive d Time (Source) Location / / Volume Laterality Blood 08/29/2022 12:26 08/29/2022 1:21 PM SAUSAGE COOKER PM SAUSAGE COOKER Mallory OVERTON LAB BLOOD ORDERABLES Performing Organization Address City/[facility]/ZIP [facility] Phon e Number [facility] CANCER Unless otherwise noted, [address] all lab tests performed by: Division of Pathology and Laboratory Medicine [address] (ABNORMAL) Glucose Level (08/29/2022 12:26 PM SAUSAGE COOKER)Only the most recent of3 resultswithin the time period is included. athologist Signature Glucose Level 143 (H) 70 - 99 [facility] mg/dL [facility] CENTER Comment: Effective 04/09/16, the glucose reference intervals have been updated based on [place] [employer] guidelines (Standards of Medical Care in Diabetes 2016. Diabetes Care 2016; 39: S13-S22). Fasting blood glucose: Normal: 70-99 mg/dL Impaired fasting glucose (increased risk for diabetes or pre-diabetes): 100- 125 mg/dL Diabetes mellitus: >/=126 mg/dL Random blood glucose: Normal: 70-199 mg/dL Note: Random glucose >100 mg/dL is assoc iated with increased risk for diabetes Specimen Anatomical Collection Method Collection Time Receive d Time (Source) Location / / Volume Laterality Blood 08/29/2022 12:26 08/29/2022 PM SAUSAGE COOKER 12:45 PM SAUSAGE COOKER Mallory OVERTON LAB BLOOD ORDERABLES Performing Organization Address City/State/ZIP Code Phon e Number [facility] CANCER Unless otherwise noted, [address] all lab tests performed by: Division of Pathology and Laboratory Medicine [address] [facility] Calcium Level (08/29/2022 12:26 PM SAUSAGE COOKER)Only the most recent of3 resultswithin the time period is included. athologist Signature Calcium Lvl 10.2 8.4 - 10.2 [facility] mg/dL [facility] Specimen Anatomical Collection Method Collection Time Receive d Time (Source) Location / / Volume Laterality Blood 08/29/2022 12:26 08/29/2022 PM SAUSAGE COOKER 12:45 PM SAUSAGE COOKER Mallory OVERTON LAB BLOOD ORDERABLES Performing Organization Address City/State/ZIP [facility] Phon e Number [facility] CANCER Unless otherwise noted, [address] all lab tests performed by: Division of Pathology and Laboratory Medicine [address] [place] Albumin Level (08/29/2022 12:26 PM SAUSAGE COOKER)Only the most recent of3 resultswithin the time period is included. athologist Signature Albumin Lvl 4.4 3.5 - 5.2 [facility] gm/dL [facility] CENTER Specimen Anatomical Collection Method Collection Time Receive d Time (Source) Location / / Volume Laterality Blood 08/29/2022 12:26 08/29/2022 PM SAUSAGE COOKER 12:45 PM SAUSAGE COOKER Mallory OVERTON LAB BLOOD ORDERABLES Performing Organization Address City/[facility]/ZIP Code Phon e Number [facility] CANCER Unless otherwise noted, [address] all lab tests performed by: Division of Pathology and Laboratory Medicine [address] [place] [address] Electrolyte Panel (08/29/2022 12:26 PM SAUSAGE COOKER)Only the most recent of3 results within the time period is included. athologist Signature Sodium Lvl 139 136 - 145 [facility] mEq/L [facility] Potassium Lvl 4.0 3.5 - 5.1 [facility] mEqL [facility] Chloride 104 98 - 107 [facility] mEq/L [facility] CO2 24 22 - 29 [facility] mEq/L [facility] Anion Gap 11 4 - 14 [facility] mEq/L [facility] Specimen Anatomical Collection Method Collection Time Receive d Time (Source) Location / / Volume Laterality Blood 08/29/2022 12:26 08/29/2022 PM SAUSAGE COOKER 12:45 PM SAUSAGE COOKER Mallory OVERTON LAB BLOOD ORDERABLES Performing Organization Address City/State/ZIP Code Phon e Number [facility] CANCER Unless otherwise noted, [address] all lab tests performed by: Division of Pathology and Laboratory Medicine [address] [place] [address] (ABNORMAL) US Chest for Breast Ultrasound (Add-on Only) (08/19/2022 11:55 AM SAUSAGE COOKER)Only the most recent of2 resultswithin the time period is included. Anatomical Region Laterality Modality Chest Ultrasound Specimen (Source) Anatomical Collection Method Collection Time Re ceived Time Location / / Volume Laterality 08/19/2022 12:19 PM SAUSAGE COOKER Impressions 08/19/2022 12:19 PM SAUSAGE COOKER 1. Relatively stable appearance of the two malignant right breast masses compared with the 03/[address] see above for details. 2. Improved right axillary adenopathy. BI-RADS Category 6: Known Biopsy Proven Malignancy Narrative 08/19/2022 12:19 PM SAUSAGE COOKER EXAMINATIONS: RIGHT WHOLE-BREAST ULTRASOUND, COMPLETE. ULTRASOUND CHEST. CLINICAL INDICATION: Breast cancer undergoing neoadjuvant the rapy. TECHNIQUE: Real-time sonographic imaging of the rig ht breast (including all 4 quadrants and retroareolar region) was performed. Re al-time sonographic imaging of the right regional suyapa basins including ultrasou nd of the chest/mediastinum to evaluate the axillary (level I, II, III) and inte rnal mammary regions was performed. COMPARISON: The present examination has been compare d to prior imaging studies performed at [facility] 04/11/2022, and at [facility] on 11/20/2021. FINDINGS: Right Breast: The malignant mass at 10:0 0, 7 cmfn is now 1.1 x 0.8 x 0.6 cm and was 1.1 x 0.9 x 0.7 cm on the 03/2022 ul trasound and 1.8 x 1.3 x 1.0 cm on the 11/2021 ultrasound. The malignant mass at 11:00, 1 cmfn is n ow 2.8 x 1.8 x 0.7 cm and 3.0 x 2.1 x 0.6 cm on the 03/2022 ultrasound and 3.0 x 2.6 x 0.8 cm on the 11/2021 ultrasound. The benign subcentimeter papillary lesio n at 9:00, 4 cmfn is again noted. There are no new findings. Right [place] Basins: All visualized lymph nodes at levels 1-2 are now morphologically normal (two level one no galdino were mildly prominent on the prior exam). The index level one node with a c lip is again visualized. Only one of the two previously seen, abnormal level 3 ax illary nodes remains visualized, now measuring 0.6 x 0.4 x 0.3 cm (0.8 x 0. 4 x 0.3 cm on the 03/2022 ultrasound and 1.7 x 0.6 x 0.5 cm on the 11/2021 ultras ound). No other possible adenopathy is seen. I notified the patient of the results an d their significance at the completion of today's imaging. Procedure Note Miah Louis MD - 08/19/2022 EXAMINATIONS: RIGHT WHOLE-BREAST ULTRASOUND, COMPLETE. ULTRASOUND CHEST. CLINICAL INDICATION: Breast cancer undergoing neoadjuvant the rapy. TECHNIQUE: Real-time sonographic imaging of the rig ht breast (including all 4 quadrants and retroareolar region) was performed. Real -time sonographic imaging of the right regional suyapa basins including ultrasou nd of the chest/mediastinum to evaluate the axillary (level I, II, III) and inte rnal mammary regions was performed. COMPARISON: The present examination has been compare d to prior imaging studies performed at [facility] 04/11/2022, and at [facility] on 11/20/2021. FINDINGS: Right Breast: The malignant mass at 10:0 0, 7 cmfn is now 1.1 x 0.8 x 0.6 cm and was 1.1 x 0.9 x 0.7 cm on the 03/2022 ul trasound and 1.8 x 1.3 x 1.0 cm on the 11/2021 ultrasound. The malignant mass at 11:00, 1 cmfn is n ow 2.8 x 1.8 x 0.7 cm and 3.0 x 2.1 x 0.6 cm on the 03/2022 ultrasound and 3.0 x 2.6 x 0.8 cm on the 11/2021 ultrasound. The benign subcentimeter papillary lesio n at 9:00, 4 cmfn is again noted. There are no new findings. Right [place] Basins: All visualized lymph nodes at levels 1-2 are now morphologically normal (two level one no galdino were mildly prominent on the prior exam). The index level one node with a c lip is again visualized. Only one of the two previously seen, abnormal level 3 ax illary nodes remains visualized, now measuring 0.6 x 0.4 x 0.3 cm (0.8 x 0.4 x 0.3 cm on the 03/2022 ultrasound and 1.7 x 0.6 x 0.5 cm on the 11/2021 ultras ound). No other possible adenopathy is seen. I notified the patient of the results an d their significance at the completion of today's imaging. IMPRESSION: 1. Relatively stable appearance of the t wo malignant right breast masses compared with the 03/[address] see above for details. 2. Improved right axillary adenopathy. BI-RADS Category 6: Known Biopsy Proven Malignancy Ami Lira MD IMG US ORDERABLES (ABNORMAL) US Breast Complete Right (08/19/2022 11:55 AM SAUSAGE COOKER)Only the most recent of2 resultswithin the time period is included. Anatomical Region Laterality Modality Breast Right Ultrasound Specimen (Source) Anatomical Collection Method Collection Time Re ceived Time Location / / Volume Laterality 08/19/2022 12:19 PM SAUSAGE COOKER Impressions 08/19/2022 12:19 PM SAUSAGE COOKER 1. Relatively stable appearance of the two malignant right breast masses compared with the 03/[address] see above for details. 2. Improved right axillary adenopathy. BI-RADS Category 6: Known Biopsy Proven Malignancy Narrative 08/19/2022 12:19 PM SAUSAGE COOKER EXAMINATIONS: RIGHT WHOLE-BREAST ULTRASOUND, COMPLETE. ULTRASOUND CHEST. CLINICAL INDICATION: Breast cancer undergoing neoadjuvant the rapy. TECHNIQUE: Real-time sonographic imaging of the rig ht breast (including all 4 quadrants and retroareolar region) was performed. Re al-time sonographic imaging of the right regional suyapa basins including ultrasou nd of the chest/mediastinum to evaluate the axillary (level I, II, III) and inte rnal mammary regions was performed. COMPARISON: The present examination has been compare d to prior imaging studies performed at [facility] [place] 04/11/2022, and at [facility] [place] on 11/20/2021. FINDINGS: Right Breast: The malignant mass at 10:0 0, 7 cmfn is now 1.1 x 0.8 x 0.6 cm and was 1.1 x 0.9 x 0.7 cm on the 03/2022 ul trasound and 1.8 x 1.3 x 1.0 cm on the 11/2021 ultrasound. The malignant mass at 11:00, 1 cmfn is n ow 2.8 x 1.8 x 0.7 cm and 3.0 x 2.1 x 0.6 cm on the 03/2022 ultrasound and 3.0 x 2.6 x 0.8 cm on the 11/2021 ultrasound. The benign subcentimeter papillary lesio n at 9:00, 4 cmfn is again noted. There are no new findings. Right [place] Basins: All visualized lymph nodes at levels 1-2 are now morphologically normal (two level one no galdino were mildly prominent on the prior exam). The index level one node with a c lip is again visualized. Only one of the two previously seen, abnormal level 3 ax illary nodes remains visualized, now measuring 0.6 x 0.4 x 0.3 cm (0.8 x 0. 4 x 0.3 cm on the 03/2022 ultrasound and 1.7 x 0.6 x 0.5 cm on the 11/2021 ultras ound). No other possible adenopathy is seen. I notified the patient of the results an d their significance at the completion of today's imaging. Procedure Note Miah Louis MD - 08/19/2022 EXAMINATIONS: RIGHT WHOLE-BREAST ULTRASOUND, COMPLETE. ULTRASOUND CHEST. CLINICAL INDICATION: Breast cancer undergoing neoadjuvant the rapy. TECHNIQUE: Real-time sonographic imaging of the rig ht breast (including all 4 quadrants and retroareolar region) was performed. Real -time sonographic imaging of the right regional suyapa basins including ultrasou nd of the chest/mediastinum to evaluate the axillary (level I, II, III) and inte rnal mammary regions was performed. COMPARISON: The present examination has been compare d to prior imaging studies performed at [facility] [place] 04/11/2022, and at [facility] on 11/20/2021. FINDINGS: Right Breast: The malignant mass at 10:0 0, 7 cmfn is now 1.1 x 0.8 x 0.6 cm and was 1.1 x 0.9 x 0.7 cm on the 03/2022 ul trasound and 1.8 x 1.3 x 1.0 cm on the 11/2021 ultrasound. The malignant mass at 11:00, 1 cmfn is n ow 2.8 x 1.8 x 0.7 cm and 3.0 x 2.1 x 0.6 cm on the 03/2022 ultrasound and 3.0 x 2.6 x 0.8 cm on the 11/2021 ultrasound. The benign subcentimeter papillary lesio n at 9:00, 4 cmfn is again noted. There are no new findings. Right Suyapa Basins: All visualized lymph nodes at levels 1-2 are now morphologically normal (two level one no galdino were mildly prominent on the prior exam). The index level one node with a c lip is again visualized. Only one of the two previously seen, abnormal level 3 ax illary nodes remains visualized, now measuring 0.6 x 0.4 x 0.3 cm (0.8 x 0.4 x 0.3 cm on the 03/2022 ultrasound and 1.7 x 0.6 x 0.5 cm on the 11/2021 ultras ound). No other possible adenopathy is seen. I notified the patient of the results an d their significance at the completion of today's imaging. IMPRESSION: 1. Relatively stable appearance of the t wo malignant right breast masses compared with the 03/[address] see above for details. 2. Improved right axillary adenopathy. BI-RADS Category 6: Known Biopsy Proven Malignancy Ami Lira MD IMG US ORDERABLES (ABNORMAL) Mammography Digital Diagnostic Right with Joe (08/19/2022 10:24 AM SAUSAGE COOKER) Anatomical Region Laterality Modality Breast Right Mammography Specimen (Source) Anatomical Collection Method Collection Time Re ceived Time Location / / Volume Laterality 08/19/2022 12:08 PM SAUSAGE COOKER Impressions 08/19/2022 12:08 PM SAUSAGE COOKER Favorable interval response to therapy, detailed above. BI-RADS Category 6: Known Biopsy Proven Malignancy Narrative 08/19/2022 12:08 PM SAUSAGE COOKER CLINICAL INDICATION: Right breast cancer undergoing neoadjuva nt therapy. MAMMO DIGITAL DIAGNOSTIC RIGHT W JOE Digital Mammogram evaluated with Compute r Aided Detection (CAD). Tomosynthesis was performed. COMPARISON: The present examination has been compare d to a prior imaging study performed at [facility] [place] on 11/20/2021. FINDINGS: The breast is heterogeneously dense, whi ch may obscure small masses. The wing clip-containing malignant mass at 10:00 is now 1.1 x 0.8 x 0.7 cm and was 1.5 x 1.2 x 1.2 cm on the 11/2021 ma mmogram. The heart clip-containing malignant mass at 11:00 is now 0.9 x 0.8 x 0.5 cm and was 1.8 x 1.4 x 1.3 cm on the 11/2021 ma mmogram. The coil-clip containing papillary lesio n at 9:00 is not well seen mammographically. There are no new findings. I notified the patient of the results and their significance at the completion of today' s imaging. Procedure Note Miah Louis MD - 08/19/2022 CLINICAL INDICATION: Right breast cancer undergoing neoadjuva nt therapy. MAMMO DIGITAL DIAGNOSTIC RIGHT W JOE Digital Mammogram evaluated with Compute r Aided Detection (CAD). Tomosynthesis was performed. COMPARISON: The present examination has been compare d to a prior imaging study performed at [facility] on 11/20/2021. FINDINGS: The breast is heterogeneously dense, whi ch may obscure small masses. The wing clip-containing malignant mass at 10:00 is now 1.1 x 0.8 x 0.7 cm and was 1.5 x 1.2 x 1.2 cm on the 11/2021 ma mmogram. The heart clip-containing malignant mass at 11:00 is now 0.9 x 0.8 x 0.5 cm and was 1.8 x 1.4 x 1.3 cm on the 11/2021 ma mmogram. The coil-clip containing papillary lesio n at 9:00 is not well seen mammographically. There are no new findings. I notified th e patient of the results and their significance at the completion of today' s imaging. IMPRESSION: Favorable interval response to therapy, detailed above. BI-RADS Category 6: Known Biopsy Proven Malignancy Ami Lira MD IM MAMMOGRAPHY ORDERABL ES Bilirubin, total (07/17/2022 11:49 AM CDT)Only the most recent of7 resultswithin the time period is included. athologist Signature Bili Total 0.3 <=1.2 mg/dL OSGOOD Comment: Indocyanine Green (ICG) may cause falsel y elevated bilirubin results. Total and direct bilirubin must not be measured from samples containing indocyanine green. False elevation of total bilirubin can b e seen in patients with IgG concentrations above 28 g/L. [facility] [address], [place] [address] Specimen Anatomical Collection Method Collection Time Receive d Time (Source) Location / / Volume Laterality Blood 07/17/2022 11:49 07/17/2022 AM CDT 11:50 AM CDT Nuzhat Bereket RAMIREZ LAB BLOOD ORDERABLES Performing Organization Address City/State/ZIP Code Phon e Number [facility] [place] [address] [address] US Leg Venous Doppler Bilateral (06/30/2022 2:46 [...] PM CDT Examination: US LEG VENOUS DOPPLER BILAT ERA, 06/30/2022 2:46 PM Clinical History: Infiltrating duct [...] the original. Examination: US LEG VENOUS DOPPLER BILAT ERAL, 06/30/2022 2:46 PM Clinical History: Infiltrating duct [...] PM CDT Examination: US ARM VENOUS DOPPLER [facility], 06/30/2022 2:46 PM Clinical History: Infiltrating duct [...] the original. Examination: US ARM VENOUS DOPPLER [facility], 06/30/2022 2:46 PM Clinical History: Infiltrating duct [...] - 06/24/2022 Examination: CT ABDOMEN PELVIS W BEN [place], 06/23/2022 12:20 PM Clinical History: Infiltrating duct [...] the time period is included. athologist Signature POC Crea 0.6 0.6 - [...] The eGFRcr is calculated with the 2020 KD-EPI creatinine equation using creatinine, patient's age, [...] Clean Dev Yes POC TELCOR Performing Lab [facility] POC TELCO R Comment: RCC OS[facility]OD [facility] ex[facility] ,[address] [place] [address], Point of Care Lung Puller: Mima Soto MD Specimen Anatomical Collection Method [...] to a prior imaging study performed at [facility] [place] on 11/20/2021. Images were obtained in multiple scannin g planes. Real-time sonographic imaging of the rig ht breast (including all 4 quadrants and retroareolar region) was performed. Re al-time sonographic imaging of the right regional suyapa basins including ultrasou nd of the chest/mediastinum to evaluate the axillary (level I,II,III) and diversity intern al mammary regions was performed. The [...] to a prior imaging study performed at [facility] on 11/20/2021. Images were obtained in multiple scannin g planes. Real-time sonographic imaging of the rig ht breast (including all 4 quadrants and retroareolar region) was performed. Real -time sonographic imaging of the right regional suyapa basins including ultrasou nd of the chest/mediastinum to evaluate the axillary (level I,II,III) and diversity intern al mammary regions was performed. The [...] imaginD volumes were not performed in this [facility]. Cardiac Mechanics/Speckle Tracking Imagi ng: Abnormal global [...] 9 3.6 ml EF(MOD-A2C): 58.9 % ESV(MOD-bp): 40. 2 ml EF(MOD-bp): 57.1 % LAV(MOD-A2C): 51.3 ml EDV (MOD-bp) I ndex: 48.4 ml/m2 LAV(MOD-A4C): 24.5 ml LAV(MOD-bp): 35.0 ml LAV(MOD-bp) Indexed: 18.1 ml/m2 ESV (MOD-bp) Index: 20.7 ml/m2 RWT: 0.40 cm TAPSE (>1.6): 1.7 cm Doppler Measurements MV E max mariah: 55.5 cm/sec MV V2 max : 85.4 cm/sec MV A max mariah: 76.0 cm/sec MV max P.9 mmHg MV E/A: 0.73 MV V2 mean: 48.3 cm/sec MV mean P.1 mmHg MV V2 VTI: 14.8 cm MVA(VTI): 2.9 cm2 MV P1/2t max mariah: 56.1 cm/sec Ao V2 max: 100.8 cm/sec MV P1/2t: 44.1 msec Ao max P.1 m mHg Ao V2 mean: 68.5 cm/sec MVA(P1/2t): 5.0 cm2 Ao mean P.1 mmHg MV dec slope: 372.7 cm/sec2 Ao V2 V TI: 14.9 cm GRANT(I,D): 2.9 cm2 GRANT(V,D): 2.3 [...] Med Peak E' Mariah: 7.1 cm/sec Lat Pea k E' Mariah: 5.7 cm/sec TR max mariah: 214.7 cm/sec RAP systole : 3.0 mmHg TR max P.4 mmHg RVSP(TR): 21.4 mmHg GRANT Index (I,D): 1.5 GRANT Index (V,D) : 1.2 Dimensionless Index: 0.74 E/e' (avg ): 8.6 E/e' (lat): 9.7 E/e' (sept): 7.8 [...] Procedure: 12/16/21 Attending Physician: Chandra Lucas MD Brick Tender: None Pre-procedure Diagnosis: History of je gnant [...] I certify my physical presence at the [facility] of the procedure. I personally reviewed the [...] Sample Type Venous POC TELCOR Performing Lab [facility] POC TELCO R Comment: [facility], [address], [place] [address]; Lab Direct or: Nancy Aragon MD Specimen Anatomical Collection Method Collection Time Receive d Time (Source) Location / / Volume Laterality Blood 12/16/2021 3:23 PM 2 3:23 CDT PM CDT Hannah OVERTON POCT ORDERABLES - DEVICE Performing Organization Address City/State/ZIP Code Phon e Number POC TELCOR Glucose, Random (12/16/2021 12:41 PM CDT) athologist Signature Glucose Random 189 70 - 199 [facility] mg/dL Comment: Effective 04/09/16, the glucose reference intervals have been updated based on [place] [employer] guidelines (Standards of Medical Care in Diabetes 2016. Diabetes Care 2016; 39: S13-S22) Fasting blood glucose: Normal: 70-99 mg/dL Impaired fasting glucose (increased risk for diabetes or pre-diabetes): 100-125 mg/dL Diabetes mellitus: >/= 126 mg/dL Random blood glucose: Normal: 70-199 mg/dL Note: Random glucose >100 mg/dL is assoc iated with increased risk for diabetes Testing Performed at [facility] Lab Protein Scientist Bl, [address], [address], [place] [address] Specimen Anatomical Collection Method Collection Time Receive d Time (Source) Location / / Volume Laterality Blood 12/16/2021 12:41 12/16/2021 PM CDT 12:46 PM CDT Hannah OVERTON LAB BLOOD ORDERABLES Performing Organization Address City/[facility]/ZIP Code Phon e Number [facility] [address] [place] [address] [address] Anion Gap (12/16/2021 12:41 PM CDT) P athologist Signature Anion Gap 10 4 - 14 mEq/L [facility] Comment: Testing Performed at [facility] Lab Am bulatory Care Bldg, [address], [address], [place] [address] Specimen Anatomical Collection Method Collection Time Receive d Time (Source) Location / / Volume Laterality Blood 12/16/2021 12:41 12/16/2021 PM CDT 12:46 PM CDT Hannah OVERTON LAB BLOOD ORDERABLES Performing Organization Address [facility]/ZIP Code Phon e Number [facility] [address] [place] [address] [address] Clot Expiration Date (12/16/2021 12:41 PM CDT) [facility] Signature T & S 12/19/2021 [facility] [place] Specimen Anatomical Collection Method Collection Time Receive d Time (Source) Location / / Volume Laterality Blood 12/16/2021 12:41 12/16/2021 2:23 PM CDT PM CDT Hannah OVERTON BLOOD BANK TEST ORDERABLES Performing Organization Address City/[facility] Phon e Number [facility] Unless otherwise noted, [place] [address] CENTER all lab tests performed by: Division of Pathology and Laboratory Medicine [address] [place] [address] TMP Interpretation Antibody Screen Negative (12/16/2021 12:41 PM CDT) [facility] Method [place] Signature TMP Auto Neg At the [facility] CENTER patient plasma shows no evidence of RBC alloantibodi es. Comment: MD Jerald BERRY [id number] Dictated by: MD Jerald [id number] Dictated Date/Time: [...] Organization Address City/State/ZIP Code Phon e Number [facility] Unless otherwise noted, [address] all lab tests performed by: Division of Pathology and Laboratory Medicine [address] ABORh (12/16/2021 12:41 PM CDT) P athologist Signature ABORh. O NEG [facility] [place] Specimen Anatomical Collection Method Collection Time Receive d Time (Source) Location / / Volume Laterality Blood 12/16/2021 12:41 12/16/2021 2:23 PM CDT PM CDT Hannah OVERTON BLOOD BANK TEST ORDERABLES Performing Organization Address City/State/ZIP Code Phon e Number [facility] Unless otherwise noted, [address] all lab tests performed by: Division of Pathology and Laboratory Medicine [address] Antibody Screen (12/16/2021 12:41 PM CDT) P athologist Signature ABSC. Negative ABSC [facility] [place] Specimen Anatomical Collection Method Collection Time Receive d Time (Source) Location / / Volume Laterality Blood 12/16/2021 12:41 12/16/2021 2:23 PM CDT PM CDT Hannah OVERTON BLOOD BANK TEST ORDERABLES Performing Organization Address City/State/ZIP Code Phon e Number [facility] Unless otherwise noted, [address] all lab tests performed by: Division of Pathology and Laboratory Medicine [address] Sodium Level (12/16/2021 12:41 PM CDT) athologist Signature Sodium Lvl 144 136 - 145 [facility] mEq/L Comment: Testing Performed at [facility] Lab Am bulatory Care [facility], [address], [place] [address] Specimen Anatomical Collection Method Collection Time Receive d Time (Source) Location / / Volume Laterality Blood 12/16/2021 12:41 12/16/2021 PM CDT 12:46 PM CDT Hannah OVERTON LAB BLOOD ORDERABLES Performing Organization Address City/State/ZIP Code Phon e Number [facility] [address] [place] [address] [address] Potassium (12/16/2021 12:41 PM CDT) athologist Signature Potassium Lvl 4.1 3.5 - 5.1 [facility] mEq/L Comment: Testing Performed at B Lab Am [facility], [address], [place] [address] Specimen Anatomical Collection Method Collection Time Receive d Time (Source) Location / / Volume Laterality Blood 12/16/2021 12:41 12/16/2021 PM CDT 12:46 PM CDT Hannah OVERTON LAB BLOOD ORDERABLES Performing Organization Address City/[facility]/ZIP Code Phon e Number [facility] [address] [place] [address] [address] Chloride Level (12/16/2021 12:41 PM CDT) athologist Signature Chloride 107 98 - 107 [facility] mEq/L Comment: Testing Performed at B Lab Am [facility] Care [facility], [address], [place] [address] Specimen Anatomical Collection Method Collection Time Receive d Time (Source) Location / / Volume Laterality Blood 12/16/2021 12:41 12/16/2021 PM CDT 12:46 PM CDT Hannah OVERTON LAB BLOOD ORDERABLES Performing Organization Address City/State/ZIP Code Phon e Number [facility] [address] [place] [address] [address] Carbon Dioxide Level (12/16/2021 12:41 PM CDT) athologist Signature CO2 27 22 - 29 [facility] mEq/L Comment: Testing Performed at [facility] Lab Am bulatory Care [facility], [address], [address], [place] [address] Specimen Anatomical Collection Method Collection Time Receive d Time (Source) Location / / Volume Laterality Blood 12/16/2021 12:41 12/16/2021 PM CDT 12:46 PM CDT Hannah OVERTON LAB BLOOD ORDERABLES Performing Organization Address City/[facility]/ZIP Code Phon e Number [facility] [address] [place] [address] [address] Confirm ABORh (12/16/2021 12:40 PM CDT) athologist Signature ABORh Confirm. O NEG [facility] [place] Specimen Anatomical Collection Method Collection Time Receive d Time (Source) Location / / Volume Laterality Blood 12/16/2021 12:40 12/16/2021 2:23 PM CDT PM CDT Hannah OVERTON BLOOD BANK TEST ORDERABLES Performing Organization Address City/[facility] Phon e Number [facility] Unless otherwise noted, [place] [address] CENTER all lab tests performed by: Division of Pathology and Laboratory Medicine [address] [place] [address] Prothrombin Time (12/16/2021 12:33 PM CDT) athologist [facility] PT 12.5 11.5 - 13.9 [facility] second(s) Comment: Testing Performed at B Lab Protein Scientist [facility] [address] [place] [address] INR 1.00 0.90 - 1.10 [facility] Comment: Testing Performed at B Lab Protein Scientist [facility] [address] [place] [address] Specimen Anatomical Collection Method Collection Time Receive d Time (Source) Location / / Volume Laterality Blood 12/16/2021 12:33 12/16/2021 PM CDT 12:42 PM CDT Narrative [facility] - 12/16/2021 1:13 PM CDT This lab cannot be scheduled at the [facility] locations due to collection/proccessing restrictions: [facility] and [facility]. Hannah OVERTON LAB BLOOD ORDERABLES Performing Organization Address City/State/ZIP Code Phon e Number [facility] [address] [place] [address] [address] EKG, 12-Lead (Scheduled) (12/16/2021) Specimen (Source) Anatomical Location Collection Method / Collectio n Time Received Time / Laterality Volume Narrative This result has an attachment that is no t available. Hannah OVERTON ECG ORDERABLES Performing Organization Address City/State/ZIP Code Phon e Number [facility] Post [...] available and reviewed. Examination: Post Procedure Mammogram [facility] 12/13/2021. Clinical Indication: Patient is a [...] available and reviewed. Examination: Post Procedure Mammogram [facility] 12/13/2021. Clinical Indication: Patient is a [...] available and reviewed. Examination: Post Procedure Mammogram [facility] 12/13/2021. Clinical Indication: Patient is a [...] 11-20. Technique: Ultrasound imaging of the rig breast [...] and covered wit h a bandage. A Packet Digital coil marker clip was placed at th [...] . Technique: Ultrasound imaging of the rig breast [...] and covered wit h a bandage. A Packet Digital coil marker clip was placed at th [...] available and reviewed. Examination: [facility] Clinical Indication: Patient is a 81 yea rs old female and is seen for post procedure mammogram. Findings: See Ultrasound-guided biopsy r eport done same date. Mallory SEE US ORDERABLES US Guided Breast Clip Placement [...] available and reviewed. Examination: Post Procedure Mammogram [facility] 12/13/2021. Clinical Indication: Patient is a [...] and covered wit h a bandage. A Packet Digital coil marker clip was placed at th [...] Method Time At Signature Gross A: 12/13/2021 [facility] Description Specimens procured: 4:37 PM 2 Diff Quik; 5 Pap Stain Slides CDT 10 ml, clear red fluid in RPMI 1 Cytospin Size: 0.5 cm Immediate assessment for specimen adequacy was made x1 by Dr Yogesh Robles. Immediate Adequate 12/13/2021 [facility] Assessment cellularity, 4:37 PM favor benign CDT Major [facility]/benign 12/13/2021 [facility] Elect ronically Classification 4:37 PM fady d by Sue CDT Nitza gar on 12/13/2021 a t 4:37 PM Diagnosis A. Breast, right, fine needle asp, Right breast mass 6 :00 4cmfn: 12/13/2021 [facility] Electronically 4:37 PM signed by Sue No malignant cells identified CDT Nitza Robles on Benign ductal epithelium wit h apocrine metaplasia in a background of cystic debris and scattered macrophages consistent with fibrocystic change 12/13/2021 at 4:37 PM Retained/Biomark SR: 8 S 12/13/2021 [facility] er Testing 4:37 PM CDT Informational Some tests 12/13/2021 [facility] Points reported here may 4:37 PM have been CDT developed and performance characteristics determined by [facility] Pathology and Laboratory Medicine. These tests have not been specifically cleared or approved by the U.S. Food and Drug Administration. This case was screened at [facility]) Cytopathology Laboratory, [address] [place] [id number]. Specimen Anatomical Collection Method Collection Time Receive d Time (Source) Location / / Volume Laterality Fine Needle Asp 12/13/2021 9:56 AM 2021 (Breast, Right) CDT 12:10 PM CDT Mallory OVERTON LAB CYTOLOGY ORDERABLES Performing Organization Address City/State/ZIP Code Phon e Number [facility] [place] [address] [address] Chest Abdomen Pelvis with and [...] a history of endometrial cancer. Mallory OVERTON [address] CT ORDERABLES NM Bone Scan Whole Body [...] tastases. I personally reviewed these image(s) craig ng with the resident's/fellow's interpretations, certify that if a procedure was performed I was physically present, and agree with the final report. Mallory SEE NM ORDERABLES Post Procedure Mammogram Bilateral (11/20/2021 5:56 PM SAUSAGE COOKER) Anatomical Region Laterality Modality Breast Mammography Specimen (Source) Anatomical Collection Method Collection Time Re ceived Time Location / / Volume Laterality 11/21/2021 9:52 AM SAUSAGE COOKER Addenda Addendum by Nupur Rosario DO on [...] Nupur Rosario DO on 11/21/2021 2:06 PM SAUSAGE COOKER ADDENDED REPORT ----- 11/21/2021 Addendum: Site 6: [...] result is benign. Impressions 11/21/2021 9:52 AM SAUSAGE COOKER Technically successful ultrasound guided biopsies of the bilateral breasts. An addendum will be issued once the final p athology result is available and reviewed. Examination: Post Procedure Mammogram Bi lateral 11/20/2021. Clinical Indication: Patient is a 81 y ears old female and is seen for post procedure mammogram. Findings: See Ultrasound-guided biopsy r eport done same date. Narrative 11/21/2021 9:52 AM SAUSAGE COOKER Examination: Right Breast Ultrasound Guided Needle Biopsy [...] Node FNA - Right (11/20/2021 5:47 PM SAUSAGE COOKER) Anatomical Region Laterality Modality Lymph Node Right Ultrasound Specimen (Source) Anatomical Collection Method Collection Time Re ceived Time Location / / Volume Laterality 11/21/2021 9:52 AM SAUSAGE COOKER Addenda Addendum by Nupur Rosario DO on [...] Nupur Rosario DO on 11/21/2021 2:06 PM SAUSAGE COOKER ADDENDED REPORT ----- 11/21/2021 Addendum: Site 6: [...] result is benign. Impressions 11/21/2021 9:52 AM SAUSAGE COOKER Technically successful ultrasound guided biopsies of the bilateral breasts. An addendum will be issued once the final p athology result is available and reviewed. Examination: Post Procedure Mammogram Bi lateral 11/20/2021. Clinical Indication: Patient is a 81 y ears old female and is seen for post procedure mammogram. Findings: See Ultrasound-guided biopsy r eport done same date. Narrative 11/21/2021 9:52 AM SAUSAGE COOKER Examination: Right Breast Ultrasound Guided Needle Biopsy [...] Steri-strips and covered with a bandage. A Packet Digital ribbon marker clip was placed at the [...] same date. Elliott OVERTON IMG US ORDERABLES US Guided Breast Biopsy Right (11/20/2021 5:47 PM SAUSAGE COOKER) Anatomical Region Laterality Modality Breast Right Ultrasound Specimen (Source) Anatomical Collection Method Collection Time Re ceived Time Location / / Volume Laterality 11/21/2021 9:52 AM SAUSAGE COOKER Addenda Addendum by Nupur Rosario DO on [...] Nupur Rosario DO on 11/21/2021 2:06 PM SAUSAGE COOKER ADDENDED REPORT ----- 11/21/2021 Addendum: Site 6: [...] result is benign. Impressions 11/21/2021 9:52 AM SAUSAGE COOKER Technically successful ultrasound guided biopsies of the bilateral breasts. An addendum will be issued once the final p athology result is available and reviewed. Examination: Post Procedure Mammogram Bi lateral 11/20/2021. Clinical Indication: Patient is a 81 y ears old female and is seen for post procedure mammogram. Findings: See Ultrasound-guided biopsy r eport done same date. Narrative 11/21/2021 9:52 AM SAUSAGE COOKER Examination: Right Breast Ultrasound Guided Needle Biopsy [...] ps and covered with a bandage. A Cell[employer]ark U-shaped marker clip was placed at the [...] Steri-strips and covered with a bandage. A Packet Digital wing marker clip was placed at th [...] ps and covered with a bandage. A Cellityark U-shaped marker clip was placed at the [...] Head Neck Soft Tissue (11/20/2021 5:47 PM SAUSAGE COOKER) Anatomical Region Laterality Modality Head, Neck Ultrasound Specimen (Source) Anatomical Collection Method Collection Time Re ceived Time Location / / Volume Laterality 11/20/2021 5:39 PM SAUSAGE COOKER Impressions 11/20/2021 5:39 PM SAUSAGE COOKER 1: Mass in the right breast upper [...] Biopsy may be considered if it would frame changer. 4: Lymph nodes in the right [...] biopsy may be considered if it would frame changer. 7: Lymph nodes in the left axilla are suspicious. Ultrasound guided biopsy is recommended. BI-RADS Category 4C: Suspicious Abnormality Narrative 11/20/2021 5:39 PM SAUSAGE COOKER CLINICAL INDICATION: Patient is a 81 year old female and is s een for abnormal mammogram FILMS COMPARED The present examination has been compare d to a prior imaging study performed at [facility] [place] on 11/20/2021. Images [...] to a prior imaging study performed at [facility] on 11/20/2021. Images [...] Biopsy may be considered if it would frame changer. 4: Lymph nodes in the right [...] biopsy may be considered if it would frame changer. 7: Lymph nodes in the left axilla are peterson spicious. Ultrasound guided biopsy is recommended. BI-RADS Category 4C: Suspicious Abnormality Elliott OVERTON IMSunil US ORDERABLES US Guided Breast Biopsy Left (11/20/2021 5:47 PM SAUSAGE COOKER) Anatomical Region Laterality Modality Breast Left Ultrasound Specimen (Source) Anatomical Collection Method Collection Time Re ceived Time Location / / Volume Laterality 11/21/2021 9:52 AM SAUSAGE COOKER Addenda Addendum by Nupur Rosario DO on [...] Nupur Rosario DO on 11/21/2021 2:06 PM SAUSAGE COOKER ADDENDED REPORT ----- 11/21/2021 Addendum: Site 6: [...] result is benign. Impressions 11/21/2021 9:52 AM SAUSAGE COOKER Technically successful ultrasound guided biopsies of the bilateral breasts. An addendum will be issued once the final p athology result is available and reviewed. Examination: Post Procedure Mammogram Bi lateral 11/20/2021. Clinical Indication: Patient is a 81 y ears old female and is seen for post procedure mammogram. Findings: See Ultrasound-guided biopsy r eport done same date. Narrative 11/21/2021 9:52 AM SAUSAGE COOKER Examination: Right Breast Ultrasound Guided Needle Biopsy [...] ps and covered with a bandage. A My[employer]Pal U-shaped marker clip was placed at the [...] Steri-strips and covered with a bandage. A Packet Digital wing marker clip was placed at th [...] ps and covered with a bandage. A Cellityark U-shaped marker clip was placed at the [...] Steri-strips and covered with a bandage. A Packet Digital wing marker clip was placed at th [...] date. Elliott SEE US ORDERABLES (ABNORMAL) US Breast Complete Bilateral (11/20/2021 5:47 PM SAUSAGE COOKER) Anatomical Region Laterality Modality Breast Bilateral Ultrasound Specimen (Source) Anatomical Collection Method Collection Time Re ceived Time Location / / Volume Laterality 11/20/2021 5:39 PM SAUSAGE COOKER Impressions 11/20/2021 5:39 PM SAUSAGE COOKER 1: Mass in the right breast upper [...] Biopsy may be considered if it would frame changer. 4: Lymph nodes in the right [...] biopsy may be considered if it would frame changer. 7: Lymph nodes in the left axilla are suspicious. Ultrasound guided biopsy is recommended. BI-RADS Category 4C: Suspicious Abnormality Narrative 11/20/2021 5:39 PM SAUSAGE COOKER CLINICAL INDICATION: Patient is a 81 year old female and is s een for abnormal mammogram FILMS COMPARED The present examination has been compare d to a prior imaging study performed at [facility] on 11/20/2021. Images [...] to a prior imaging study performed at [facility] [place] on 11/20/2021. Images [...] Biopsy may be considered if it would frame changer. 4: Lymph nodes in the right [...] biopsy may be considered if it would frame changer. 7: Lymph nodes in the left axilla are peterson spicious. Ultrasound guided biopsy is recommended. BI-RADS Category 4C: Suspicious Abnormality Elliott OVERTON IMSunil US ORDERABLES US Guided Axillary Lymph Node FNA - Left for Breast Ultrasound (11/20/2021 5:47 PM SAUSAGE COOKER) Anatomical Region Laterality Modality Lymph Node Left Ultrasound Specimen (Source) Anatomical Collection Method Collection Time Re ceived Time Location / / Volume Laterality 11/21/2021 9:52 AM SAUSAGE COOKER Addenda Addendum by Nupur Rosario DO on [...] Nupur Rosario DO on 11/21/2021 2:06 PM SAUSAGE COOKER ADDENDED REPORT ----- 11/21/2021 Addendum: Site 6: [...] result is benign. Impressions 11/21/2021 9:52 AM SAUSAGE COOKER Technically successful ultrasound guided biopsies of the bilateral breasts. An addendum will be issued once the final p athology result is available and reviewed. Examination: Post Procedure Mammogram Bi lateral 11/20/2021. Clinical Indication: Patient is a 81 y ears old female and is seen for post procedure mammogram. Findings: See Ultrasound-guided biopsy r eport done same date. Narrative 11/21/2021 9:52 AM SAUSAGE COOKER Examination: Right Breast Ultrasound Guided Needle Biopsy [...] ps and covered with a bandage. A Cellityark U-shaped marker clip was placed at the [...] ps and covered with a bandage. A Cellityark U-shaped marker clip was placed at the [...] Steri-strips and covered with a bandage. A Packet Digital wing marker clip was placed at th [...] same date. Elliott OVERTON IMSunil US ORDERABLES Pathology Biopsy Interpretation (11/20/2021 3:46 PM SAUSAGE COOKER)Only the most recent of2 resultswithin the time period is included. 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 11/25/2021 [facility] Both of these histologic pat terns [...] 11-100%, Low Positive = 1-10% Reference: Latasha miller al. Arch Pathol Lab Med 2019 Results: Positive Percent Stainin % See comment Appropriate controls are present on the slide. Stain Intensity: Strong Progesterone Receptor: Antibody Clone: TN 16 (Leica) Positive = 10-100%, Low Positive = 1-9% Reference: Latasha et al. Arch Pathol Lab Med 2019 Results: Positive Percent Stainin % See comment Appropriate controls are present on the slide. Staining Intensity: Strong HER2: Antibody Clone: 4B5 ([place] Pathway) Positive cases are those wi th [...] specimen was not init ially processed at [facility], pre-analytical fixation times may be found in the accompanying pathology report. These assays have not been validated on decalcified tissues. Results should be interprete d with caution given the likelihood of false negativity on decalcified specimens. Gross A: 11/25/2021 [facility] Description Breast, right, [...] core). ET Disclaimer "Some tests reported 11/25/2021 [facility] here may have been 11:06 AM developed and CDT performance characteristics determined by [facility]. These tests have not been specifically cleared or approved by the U.S. Food and Drug Administration. If applicable, controls were reviewed and showed appropriate reactivity." Specimen Anatomical Collection Method Collection Time Receive d Time (Source) Location / / Volume Laterality Tissue (Breast, 11/20/2021 3:46 PM 2021 1:13 Left) SAUSAGE COOKER PM SAUSAGE COOKER Tissue (Breast, 11/20/2021 3:39 PM 2021 1:08 Right) SAUSAGE COOKER PM SAUSAGE COOKER Tissue (Breast, 11/20/2021 3:41 PM 2021 1:08 Right) SAUSAGE COOKER PM SAUSAGE COOKER Tissue (Lymph 11/20/2021 5:30 PM 11/22/19 22 1:08 Node(s), Right, SAUSAGE COOKER PM SAUSAGE COOKER Axillary Level I) Elliott OVERTON LAB PATHOLOGY ORDERABLES Performing Organization Address City/State/ZIP Code Phon e Number [facility] [place] [address] [address] [place] (ABNORMAL) Mammography Digital Diagnostic Bilateral with Joe (11/20/2021 1:50 PM SAUSAGE COOKER) Anatomical Region Laterality Modality Breast Bilateral Mammography Specimen (Source) Anatomical Collection Method Collection Time Re ceived Time Location / / Volume Laterality 11/20/2021 5:43 PM SAUSAGE COOKER Impressions 11/20/2021 5:43 PM SAUSAGE COOKER 1: Mass in the right breast upper [...] Imaging Meryl luation Narrative 11/20/2021 5:43 PM SAUSAGE COOKER CLINICAL INDICATION: Patient is a 81 year [...] CC and MLO pr ojections. Procedure Note Bottom Polisher, Nupur, DO - 11/20/2021 CLINICAL INDICATION: Patient is [...] MAMMOGRAPHY ORDERABLES OSI Mammo (11/01/2021 12:43 PM SAUSAGE COOKER) Specimen (Source) Anatomical Location Collection Method / Collectio n Time Received Time / Laterality Volume Narrative [facility] - 11/20/2021 12:43 PM SAUSAGE COOKER Study acquired at another institution. For comparison only. No MD Chin originated interpretation requested or a vailable. Mónica Joseph MD IMG OUTSIDE IMAGE ORDERABLES Performing Organization Address City/State/ZIP Code Phon e Number [facility]SI US Breast (11/01/2021 12:43 PM SAUSAGE COOKER) Specimen (Source) Anatomical Location Collection Method / Collectio n Time Received Time / Laterality Volume Narrative JENNI - 11/20/2021 12:43 PM SAUSAGE COOKER Study acquired at another institution. For comparison only. No MD Chin originated interpretation requested or a vailable. 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
--- OUTSIDE RECORDS SUMMARY | 2022-09-04 12:50 | XMS REPORT | Continuity of Care Document ---
:1940 Author Organization [facility] t Address [address] [place] [address] Care Team Providers Name Role Phone BRENDAN ERIK Joshi Primary Care Physician Unavailable PORTER LIRA Attending Clinician Unavailable SYSTEM, PROVIDER NOT IN Attending Clinician Unavailable Veronica Membreno MA Attending Clinician Unavailable AMIRA AMRINO Attending Clinician Unavailable Amira Singh Attending Clinician [phone] Fausto See MD Attending Clinician FAUSTO SEE Attending Clinician Unavailable Derik Quintanilla MD Attending Clinician Ezequiel Harden MD Attending Clinician EZEQUIEL HARDEN Attending Clinician Unavailable Luci Hightower NP Attending Clinician Porter Lira MD Attending Clinician [phone] Rozina Soto APN Attending Clinician Unavailable Lorena Burnett RN Attending Clinician Unavailable ROZINA SOTO Attending Clinician Unavailable Zaida Garber Attending Clinician NUZHAT NAVA Attending Clinician Unavailable Gurpreet Griggs NP Attending Clinician Bereket RAMIREZ, Nuzhat Attending Clinician Ravi THAKKAR, Diane Attending Clinician Malik RN, Diann A Attending Clinician Unavailable Jeffy RAMIREZ, Khadra Attending Clinician Harjinder ANDERSON, Madison Attending Clinician Ally RN, Alice A Attending Clinician Unavailable Lance RAMIREZ, Chandra Attending Clinician SABAS MORA Attending Clinician Unavailable Sabas Wilks Attending Clinician Desire SMALLWOOD, Brenda Alvarado Attending Clinician Unavailable Murali JACKSON, Scott Attending Clinician Veronica Palencia Attending Clinician Tiana Shanks MA Attending Clinician Unavailable Elliott Bravo Attending Clinician Unavailable Demetrio Good MD Attending Clinician Rachel SMALLWOOD, Veronica Justice Attending Clinician DEMETRIO GOOD Attending Clinician Unavailable PORTER LIRA Admitting Clinician Unavailable Payers Payer Name Policy Type Policy Number Effective Date Expiration Date Alberto chiang [employer] MEDICARE PPO [id number] 2021 00:00:00 Problems Condition Condition Condition Status Onset Resolution Last Treating Co mments Source Name Details Category Date Date Treatment Clinician Date Pulmonary Pulmonary Disease Active 2021-09 Last Uni vers embolism embolism 2-16 Assessmen ity of 00:00: t & Plan: [place] [id number] [address] RAMIREZ g of this Anderso note n might be Cancer different Center from the original. 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 This is considere d provoked by cancer and cancer directed therapy. Duration of anticoagu lation is 6 months.Fo r her upcoming segmental mastectom y and axillary lymph node dissectio n, I recommend that she hold Xarelto 3 days prior to surgery (last dose of Eliquis should be on 2). She should restart anticoagu lation on postop day 1. If the patient is admitted to the hospital, at the surgical team's discretio n, while admitted she can receive low molecular weight or unfractio nated subcutane ous heparin. If she is going to be managed outpatien t, she can simply be restarted on Eliquis 5 mg PO BID on postop day 1 or postop day 2 at the surgical team's discretio n based on operative findings and risk of bleeding. 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 00:[place] right [place] right 00 female female [facility] breast breast [facility] Essential Essential Disease Active Uni vers (primary) (primary) 04-16 [place] of hypertens[place] [facility] Hyperlipid Hyperlipid Disease Active 2020-0 U nivers emia emia 04-16 ity of 00:00: 00 MD [facility] [place] Gastroesop Gastroesop Disease Active 2020-0 U nivers hageal hageal 04-16 ity of reflux reflux 00:00: [place] disease disease 00 MD [facility] [place] History of History of Disease Active 2019-0 U nivers malignant malignant 04-15 ity of neoplasm neoplasm 00:00: [place] of of 00 endometriu endometriu [facility] Malignant Malignant Disease Active Uni vers neoplasm neoplasm 01-15 ity of of of 00:00: [place] endometriu endometriu 00 MD [facility]ina [facility] [place] Diabetes Diabetes Disease Active Unive rs mellitus mellitus 01-15 ity of 00:00: 00 MD Wanda atkins [facility] Allergies, Adverse Reactions, Alerts Allergy Allergy Status Severity Reaction(s) Onset Inactive Treating Comm ents Source Name Type Date Date Clinician PACLITAX DRUG Active MD MJ OSUNA 12-18 Wanda 00:00: n 00 PACLITAX DRUG Active 2022-0 MD EL INGREDI 4-06 Anderso 00:00: n [...] Active Univers ALLERGIE Class ity of [facility] [place] [facility] Family History Family Member Diagnosis Comments Start Date Stop Date Source Cousin -Gynecology (Ovary, Unive [facility] Endometrial, Cervix, A jessica Cancer Vagina) Center Paternal aunt -Gastrointestinal [facility] (Esophagus, Liver, And erson Cancer Bile Duct, Stomach, Cente r Pancreas, Colon, Rectum, Anus Social History Social Habit Start Date Stop Date Quantity Comments Source Exposure to 2022-08-19 2022-08-29 Not sure [facility] SARS-CoV-2 00:00:00 08:55:00 [facility] navarro (event) [facility] Alcohol intake 2022-08-29 2022-08-29 Current University of 00:00:00 00:00:00 non-drinker of Humaira lopez alcohol (finding) [facility] Tobacco use and 2016-01-16 2016-01-16 Smokeless tobacco Un iversity of exposure 00:00:00 00:00:00 non-user Humaira navarro [facility] Sex Ass[birth year] Universit y of 00:00:00 00:00:00 Humaira navarro [facility] Smoking Status Start Date Stop Date Source Never smoked tobacco [facility] Medications Ordered Filled Start Stop Current Ordering Indication Dosage Frequency Signature Comments Components Source Medication Medication Date Date Medication? Clinician (SIG) Name Name sitaGLIPtin 2021-09 Yes 100mg Take 1 Uni vers (JANUVIA) 2-16 tablet ity of 100 mg 09:26: (100 mg) [place] tablet 23 by mouth daily. Wanda [facility] folic acid 2021-09 Yes 1mg Take 1 Unive rs (FOLVITE) 1 2-16 tablet (1 ity of mg tablet 09:26: mg) by [place] 23 mouth. MD Wanda atkins [facility] cefPODoxime 2021-09 Yes Univer s (VANTIN) 1-29 ity of 200 mg 00:00: [place] tablet 00 MD Wanda atkins [facility] apixaban 2021-09 Yes Pulmonary 5mg Take 1 Un telly (Eliquis) 5 0-11 embolism, tablet (5 ity of mg tablet 00:00: not mg) by [place] 00 otherwise mouth specified every 12 [place] o (twelve) n hours. Cancer Center apixaban 2021-09 Yes Pulmonary 5mg Take 1 Un telly (Eliquis) 5 0-11 embolism, tablet (5 ity of mg tablet 00:00: not mg) by [place] 00 otherwise mouth specified every 12 [place] (twelve) n hours. [facility] Center sitaGLIPtin 2021-09 Yes 100mg Take 100 U nivers (JANUVIA) 0-10 mg by ity of 100 mg 10:39: mouth [place] tablet 48 daily. MD Wanda atkins [facility] folic acid 2021-09 Yes 1mg Take 1 mg Un telly (FOLVITE) 1 0-10 by mouth. ity of mg tablet 10:39: [place] 48 MD Muñoz [facility] pioglitazon Yes Univer s e (ACTOS) 04-22 ity of 30 mg 00:00: [place] tablet [facility] pioglitaafuan 2021- No Unive rs e (ACTOS) 04-22 12-16 ity of 30 mg 00:00: 00:00 [place] tablet 00 :00 MD Muñoz [facility] aspirin 81 2021- No 81mg Take 81 mg Univers mg EC 03-11 by mouth ity of tablet 12:28: 00:00 daily. [place] 01 :00 MD Muñoz [facility] aspirin 81 2021- No 81mg Take 81 mg Univers mg EC 03-11 by mouth ity of tablet 12:28: 00:00 daily. [place] 01 :00 MD Wanda atkins [facility] sitaGLIPtin Yes 100mg Take 100 U nivers (JANUVIA) 5-31 mg by ity of 100 mg 14:10: mouth [place] tablet 27 daily. MD Wanda atkins [facility] aspirin 81 Yes 81mg Take 81 mg U nivers mg EC 5-31 by mouth ity of tablet 14:10: daily. [place] 27 MD Muñoz [facility] folic acid Yes 1mg Take 1 mg Un telly (FOLVITE) 1 5-31 by mouth. ity of mg tablet 14:10: [place] 27 MD Muñoz [facility] ondansetron Yes Infiltratin 8mg Take 1 [...] [place] 10 mg 00 of right mouth tablet [...] thromboembo [place] 2 [place]00 lism (two) prevention times a [place] day as n needed. Cancer Center clopidogrel Yes 1{tbl} Take 1 Un telly (PLAVIX) 75 7-12 tablet by ity of mg tablet 00:00: mouth [place] 00 daily. MD Wanad atkins [facility] Center clopidogrel 2021- No 1{tbl} Take 1 U nivers (PLAVIX) 75 7-12 10-11 tablet by it y of mg tablet 00:00: 00:00 mouth [place] 00 :00 daily. MD Wanda atkins [facility] clopidogrel 2021- No 1{tbl} Take 1 U nivers (PLAVIX) 75 7-12 10-11 tablet by it y of mg tablet 00:00: 00:00 mouth [place] 00 :00 daily. MD Wanda atkins [facility] atorvastati Yes 80mg Take 1 Univ ers n (LIPITOR) 7-05 tablet (80 it y of 80 mg 00:00: mg) by [place] tablet 00 mouth daily. [facility] atorvastati Yes 1{tbl} Take 1 Un telly n (LIPITOR) 7-05 tablet by ity of 80 mg 00:00: mouth [place] tablet 00 daily. MD Wanda atkins [facility] atorvastati Yes 1{tbl} Take 1 Un telly n (LIPITOR) 7-05 tablet by ity of 80 mg 00:00: mouth [place] tablet 00 daily. MD Wanda atkins [facility] ranitidine 2021- No 1{tbl} Take 1 Un telly (ZANTAC) 4-25 03-25 tablet by ity o f 150 mg 00:00: 00:00 mouth [place] tablet 00 :00 daily. [facility] ranitidine 2021- No 1{tbl} Take 1 Un telly (ZANTAC) 4-25 03-25 tablet by ity o f 150 mg 00:00: 00:00 mouth [place] tablet 00 :00 [facility]. [facility] ranitidine 2021- No 1{tbl} Take 1 Un telly (ZANTAC) 4-25 03-25 tablet by ity o f 150 mg 00:00: 00:00 mouth [place] tablet 00 :00 daily. [facility] metoprolol Yes 25mg Take 1 Unive rs tartrate 3-31 tablet (25 ity o f (LOPRESSOR) 00:00: mg[place] 00 mouth MD tablet daily. [facility] metoprolol Yes 1{tbl} Take 1 Uni vers tartrate 3-31 tablet by ity of (LOPRESSOR) 00:00: mouth [place] 25 mg 00 twice MD tablet daily. [facility] metoprolol Yes 1{tbl} Take 1 Uni vers tartrate 3-31 tablet by ity of (LOPRESSOR) 00:00: mouth [place] 25 mg 00 [facility]. [facility] Yes 1{tbl} Take 1 Univ ers (GLUCOPHAGE 3-04 tablet by ity of ) 500 mg 00:00: mouth [place] tablet 00 twice MD daily. [facility] metFORMIN 2021- No 1{tbl} Take 1 Uni vers (GLUCOPHAGE 3-04 -28 tablet by it y of ) 500 mg 00:00: 00:00 mouth [place] tablet 00 :00 twice MD daily. [facility] metFORMIN 2021- No 1{tbl} Take 1 Uni vers (GLUCOPHAGE 3-04 -28 tablet by it y of ) 500 mg 00:00: 00:00 mouth [place] tablet 00 :00 twice MD daily. [facility] Immunizations Ordered Filled Immunization Date Status Comments [facility] e Immunization Name Name [facility] SARS-CoV-2 2021-07-15 Completed Univer sity of Vaccination 00:00:00 [email or web address]a SARS-CoV-2 2021-07-15 Completed Univer sity of Vaccination 00:00:00 [facility]a White [email or web address]a SARS-CoV-2 2021-07-15 Completed Univer sity of Vaccination 00:00:00 [facility]a White [email or web address]a SARS-CoV-2 2021-01-14 Completed Univer sity of Vaccination 00:00:00 Humaira White [email or web address]a SARS-CoV-2 2021-01-14 Completed Univer sity of Vaccination 00:00:00 Humaira White [email or web address]a SARS-CoV-2 2021-01-14 Completed Univer sity of Vaccination 00:00:00 Humaira White [email or web address]a SARS-CoV-2 2020-12-17 Completed Univer sity of Vaccination 00:00:00 Humaira White [email or web address]a SARS-CoV-2 2020-12-17 Completed Univer sity of Vaccination 00:00:00 Humaira White [email or web address]a SARS-CoV-2 2020-12-17 Completed Univer sity of Vaccination 00:00:00 Humaira White [facility] Vital Signs Vital Name Observation Time Observation Value Comments Source WEIGHT 2020-04-16 11:56:44 89.8 kg Systolic blood 2022-08-29 15:12:51 99 mm[Hg] Univer sity of pressure [place] [facility] Diastolic blood 2022-08-29 15:12:51 64 mm[Hg] Unive rsity of pressure [facility] Heart rate 2022-08-29 15:12:51 72 /min Universi ty of [facility] Body temperature 2022-08-29 15:12:51 36.78 Mayelin Univ ersity of [facility] Respiratory rate 2022-08-29 15:12:51 18 /min Univ ersity of [facility] Body height 2022-08-29 15:12:51 161.5 cm Universi ty of [facility] Body weight 2022-08-29 15:12:51 74.8 kg Universi ty of [facility] BMI 2022-08-29 15:12:51 28.68 kg/m2 Universi ty of [facility] Oxygen saturation in 2022-08-29 15:12:51 98 /min University of Arterial blood by Humaira ochoarson Pulse oximetry Cancer Center Systolic blood 2022-08-06 15:31:00 117 mm[Hg] Univer sity of pressure [facility] Diastolic blood 2022-08-06 15:31:00 58 mm[Hg] Unive rsity of pressure [facility] Heart rate 2022-08-06 15:31:00 69 /min Universi ty of [facility] Body temperature 2022-08-06 15:31:00 36.44 Mayelin Univ ersity of [facility] Respiratory rate 2022-08-06 15:31:00 18 /min Univ ersity of [facility] Body weight 2022-08-06 15:31:00 76.3 kg Universi ty of [facility] BMI 2022-08-06 15:31:00 29.25 kg/m2 Universi ty of [facility] Oxygen saturation in 2022-07-17 18:01:00 98 /min University of Arterial blood by Humaira Rodriguez nderson Pulse oximetry Cancer Center Body height 2022-05-21 15:55:00 161.5 cm Universi ty of [facility] Systolic blood 2022-03-04 20:32:00 126 mm[Hg] Univer sity of pressure [facility]a [facility] Diastolic blood 2022-03-04 20:32:00 78 mm[Hg] Unive rsity of pressure [facility] Heart rate 2022-03-04 20:32:00 84 /min [facility] Go on [facility] Respiratory rate 2022-03-04 20:32:00 18 /min [facility] Body temperature 2022-03-04 18:54:36 36.72 Mayelin [facility] Body weight 2022-03-04 18:54:36 83.1 kg Universi ty [facility] MD Go on [facility] BMI 2022-03-04 18:54:36 32.26 kg/m2 [facility] MD Go on [facility] Oxygen saturation in 2022-03-04 18:54:36 96 /min University Arterial blood by Humaira lopez Pulse oximetry [facility] Body height 2021-12-18 16:14:00 160.5 cm [facility] MD Go on [facility] Procedures Procedure Date / Time Performing Clinician Source Performed HEMOGLOBIN A1C 2022-08-29 18:26:00 [facility] COMPREHENSIVE METABOLIC 2022-08-29 18:26:00 Pattie Marino [facility] PANEL [facility] COMPLETE BLOOD COUNT W/ 2022-08-29 18:26:00 Pattie Marino [facility] DIFFERENTIAL [facility] GLUCOSE LEVEL 2022-08-29 18:26:00 [facility] BLOOD UREA NITROGEN 2022-08-29 18:26:00 Betty Marino [facility] Amira RAMIREZ [facility] ELECTROLYTE PANEL 2022-08-29 18:26:00 Betty Marino y [facility] Amira RAMIREZ [facility] SERUM CREATININE 2022-08-29 18:26:00 [facility]GLOMER[facility] FILTRATION 2022-08-29 18:26:00 Jamila [facility] RATE [facility] CALCIUM LEVEL TOTAL 2022-08-29 18:26:[address] [facility] ALBUMIN LEVEL 2022-08-29 18:26:00 Jamila, [facility] ALKALINE PHOSPHATASE 2022-08-29 18:26:00 Jamila, [facility] ALANINE AMINOTRANSFERASE 2022-08-29 18:26:00 Jamila [facility] ASPARTATE AMINOTRANSFERASE 2022-08-29 18:26:00 Jamila, [facility] TOTAL PROTEIN 2022-08-29 18:26:00 Jamila, [facility] FRACTIONATED BILIRUBIN 2022-08-29 18:26:[facility] 2022-08-29 18:26:00 [facility] MANUAL DIFFERENTIAL 2022-08-29 18:26:[address] [facility] US BREAST COMPLETE RIGHT 2022-08-19 17:55:42 Porter Lira [facility] CHEST 2022-08-19 17:55:42 [facility] MAMMO DIGITAL DIAGNOSTIC 2022-08-19 16:24:00 Porter Lira [facility] RIGHT W CAROLINA Vinod [facility] COMPLETE BLOOD COUNT W/ 2022-08-06 14:22:00 Rozina Soto [facility] DIFFERENTIAL MD [facility] COMPREHENSIVE METABOLIC 2022-08-06 14:22:00 Chrystal-Iheme, Nuzhat [facility] PANEL [facility] Results CBC 2022-08-06 14:22:00 [facility] o [facility] MANUAL DIFFERENTIAL 2022-08-06 14:22:00 Rozina Soto [facility] GLUCOSE LEVEL 2022-08-06 14:22:00 Chrystal-Iheme, Nuzhat [facility] BLOOD UREA NITROGEN 2022-08-06 14:22:00 Chrystal-Iheme, Nuzhat [facility] ELECTROLYTE PANEL 2022-08-06 14:22:00 Chrystal-Iheme, Nuzhat [facility] SERUM CREATININE 2022-08-06 14:22:00 Chrystal-Iheme, Nuzhat [facility] .GLOMERULAR FILTRATION 2022-08-06 14:22:00 Chrystal-Iheme, Nuzhat [facility] RATE [facility] CALCIUM LEVEL TOTAL 2022-08-06 14:22:00 Chrystal-Iheme, Nuzhat [facility] ALBUMIN LEVEL 2022-08-06 14:22:00 Chrystal-Iheme, Nuzhat [facility] ALKALINE PHOSPHATASE 2022-08-06 14:22:00 Chrystal-Iheme, Nuzhat [facility] ALANINE AMINOTRANSFERASE 2022-08-06 14:22:00 [facility] ASPARTATE AMINOTRANSFERASE 2022-08-06 14:22:00 Chrystal-Iheme, Nazario [facility] TOTAL PROTEIN 2022-08-06 14:22:00 Chrystal-Iheme, Nuzhat [facility] FRACTIONATED BILIRUBIN 2022-08-06 14:22:00 Chrystal-Iheme, Nuzhat [facility] COMPLETE BLOOD COUNT W/ 2022-07-17 16:49:31 Chrystal-IhNuzhat mckay [facility] DIFFERENTIAL [facility] er Center ASPARTATE AMINOTRANSFERASE 2022-07-17 16:49:31 Chrystal-IhNazario mckay [facility] er Center ALANINE AMINOTRANSFERASE 2022-07-17 16:49:31 Chrystal-IhNuzhat mckay [facility] ALKALINE PHOSPHATASE 2022-07-17 16:49:31 Chrystal-Iheme, Nuzhat [facility] [place] BILIRUBIN TOTAL 2022-07-17 16:49:31 Chrystal-Iheme, [facility] er Center Results CBC 2022-07-17 16:49:31 Chrystal-Iheme, [facility] er Center MANUAL DIFFERENTIAL 2022-07-17 16:49:31 Chrystal-IhNuzhat mckay [facility] COMPLETE BLOOD COUNT W/ 2022-07-04 16:01:54 [facility] ASPARTATE AMINOTRANSFERASE 2022-07-04 16:01:54 Chrystal-IhNazario mckay [facility] ALANINE AMINOTRANSFERASE 2022-07-04 16:01:54 Chrystal-IhemeRozinaNuzhatMichael [facility] ALKALINE PHOSPHATASE 2022-07-04 16:01:54 Chrystal-IhemeNuzhat [facility] Center BILIRUBIN TOTAL 2022-07-04 16:01:54 Chrystal-Iheme, [facility] er Center Results CBC 2022-07-04 16:01:54 Chrystal-Iheme [facility] er Center MANUAL DIFFERENTIAL 2022-07-04 16:01:54 Chrystal-IhemeNuzhat [facility] er Center US ARM VENOUS DOPPLER 2022-06-30 19:46:39 Jamila [facility] BILATERAL Amira [facility] US LEG VENOUS DOPPLER 2022-06-30 19:46:39 Dayana Marino [facility]ity [facility] [place] BILATERAL Amira [facility] CT ABDOMEN PELVIS W 2022-06-23 17:20:00 Porter Lira Uni [facility] CONTRAST [facility] POC CREATININE 2022-06-23 16:41:00 Porter Lira Univers [facility] COMPREHENSIVE METABOLIC 2022-06-11 17:08:00 Chrystal-Iheme, Nuzhat [facility] PANEL [facility] COMPLETE BLOOD COUNT W/ 2022-06-11 17:08:00 [facility] DI[facility] GLUCOSE LEVEL 2022-06-11 17:08:00 Chrystal-Iheme, Nuzhat [facility] BLOOD UREA NITROGEN 2022-06-11 17:08:00 Chrystal-Iheme, Nuzhat [facility] ELECTROLYTE PANEL 2022-06-11 17:08:00 Chrystal-Iheme, Nuzhat [facility] sity [facility] SERUM CREATININE 2022-06-11 17:08:00 Chrystal-Iheme, Nuzhat [facility] .GLOMERULAR FILTRATION 2022-06-11 17:08:00 Chrystal-Iheme, [facility]uzhat [facility] CALCIUM LEVEL TOTAL 2022-06-11 17:08:00 Chrystal-Iheme, Nuzhat [facility] ALBUMIN LEVEL 2022-06-11 17:08:00 Chrystal-Iheme, Nuzhat [facility] ALKALINE PHOSPHATASE 2022-06-11 17:08:00 Chrystal-Iheme, Nuzhat [facility] ALANINE AMINOTRANSFERASE 2022-06-11 17:08:00 Chrystal-Iheme, [facility] ASPARTATE AMINOTRANSFERASE 2022-06-11 17:08:00 Chrystal-Nazario [facility] TOTAL PROTEIN 2022-06-11 17:08:00 Chrystal-Ihwoody, Nuzhat [facility] FRACTIONATED BILIRUBIN 2022-06-11 17:08:00 Chrystal-IhNuzhat [facility]ay [facility] Results CBC 2022-06-11 17:08:00 Chrystal-Iheme, Nuzhat [facility] Center MANUAL DIFFERENTIAL 2022-06-11 17:08:00 Chrystal-Iheme, [facility] COMPLETE BLOOD COUNT W/ 2022-05-21 15:01:26 Chrystal-Nuzhat [facility] DIFFERENTIAL [facility] BLOOD UREA NITROGEN 2022-05-21 15:01:26 Chrystal-Iheme, [facility] SERUM CREATININE 2022-05-21 15:01:26 [facility]woody [facility] ASPARTATE AMINOTRANSFERASE 2022-05-21 15:01:26 Chrystal-Nazario [facility] ALANINE AMINOTRANSFERASE 2022-05-21 15:01:26 Chrystal-Ihwoody [facility] ALKALINE PHOSPHATASE 2022-05-21 15:01:26 Chrystal-Nuzhat [facility] BILIRUBIN TOTAL 2022-05-21 15:01:26 Chrystal-Iheme, Nuzhat [facility] Results CBC 2022-05-21 15:01:26 Chrystal-Iheme, [facility] MANUAL DIFFERENTIAL 2022-05-21 15:01:26 Chrystal-Iheme, [facility] SERUM CREATININE 2022-05-21 15:01:26 Chrystal-Iheme, [facility] .GLOMERULAR FILTRATION 2022-05-21 15:01:26 Chrystal-Iheme, Nuzhat [facility] RATE [facility] COMPLETE BLOOD COUNT W/ 2022-04-23 19:44:00 Chrystal-Iheme, Nuzhat [facility] DIFFERENTIAL [facility] BLOOD UREA NITROGEN 2022-04-23 19:44:00 Chrystal-Iheme, Nuzhat [facility] SERUM CREATININE 2022-04-23 19:44:00 Chrystal-Iheme, Nuzhat [facility] ASPARTATE AMINOTRANSFERASE 2022-04-23 19:44:00 Chrystal-Iheme, Nazario [facility] ALANINE AMINOTRANSFERASE 2022-04-23 19:44:00 [facility] ALKAL[facility] PHOSPHATASE 2022-04-23 19:44:00 Chrystal-Iheme, [facility]uzhat [facility] BILIRUBIN TOTAL 2022-04-23 19:44:00 Chrystal-Iheme, Nuzhat [facility] Results CBC 2022-04-23 19:44:00 Chrysatl-Iheme, Nuzhat [facility] MANUAL DIFFERENTIAL 2022-04-23 19:44:00 Chrystal-Iheme, Nuzhat [facility] SERUM CREATININE 2022-04-23 19:44:00 Chrystal-Iheme, Nuzhat [facility] .GLOMERULAR FILTRATION 2022-04-23 19:44:00 Chrystal-Iheme, Nuzhat [facility] RATE [facility] US BREAST COMPLETE RIGHT 2022-04-11 15:19:47 [facility]FRAC[facility]V 2022-04-11 15:19:47 Betty Marinoi [facility] COMPLETE BLOOD COUNT W/ 2022-04-01 17:12:00 Rozina Soto [facility] [place] DIFFERENTIAL [facility] Results CBC 2022-04-01 17:12:00 Rozina Soto [place] [facility] MD Giuseppe [facility] MANUAL DIFFERENTIAL 2022-04-01 17:12:00 [facility] [place] [facility] COMPLETE BLOOD COUNT W/ 2022-03-25 18:26:25 Rozina Soto [facility] [place] DIFFERENTIAL MD [facility] Results CBC 2022-03-25 18:26:25 Rozina Soto [place] [facility] MD Giuseppe Canc [facility] MANUAL DIFFERENTIAL 2022-03-25 18:26:25 [facility] [place] [facility] COMPLETE BLOOD COUNT W/ 2022-03-18 17:23:30 Rozina Soto [facility] [place] DIFFERENTIAL MD [facility] Results CBC 2022-03-18 17:23:30 Rozina Soto [place] [facility] MD Giuseppe Canc [facility] MANUAL DIFFERENTIAL 2022-03-18 17:23:30 [facility] [place] [facility] COMPLETE BLOOD COUNT W/ 2022-03-11 15:44:07 Rozina Soto [facility] [place] DIFFERENTIAL MD [facility] Results CBC 2022-03-11 15:44:07 Rozina Soto [facility] MD Giuseppe [facility] MANUAL DIFFERENTIAL 2022-03-11 15:44:07 [facility] [place] [facility] COMPLETE BLOOD COUNT W/ 2022-03-04 17:14:19 Rozina Soto [facility] [place] DIFFERENTIAL MD [facility] Results CBC 2022-03-04 17:14:19 Rozina Soto [place] [facility] MD Giuseppe C[facility] MANUAL DIFFERENTIAL 2022-03-04 17:14:19 Rozina Soto [facility] [place] MD [facility] COMPLETE BLOOD COUNT W/ 2022-02-25 15:41:00 Rozina Soto [facility] [place] DIFFERENTIAL MD [facility] Results CBC 2022-02-25 15:41:00 Rozina Soto [place] MD Giuseppe C[facility] MANUAL DIFFERENTIAL 2022-02-25 15:41:00 Rozina Soto Universi ty of [facility] Can er Center COMPLETE BLOOD COUNT W/ 2022-02-18 17:43:41 Rozina Soto [facility] [place] DIFFERENTIAL MD [place] Can er Center ASPARTATE AMINOTRANSFERASE 2022-02-18 17:43:41 Rozina Soto [facility] er Center ALANINE AMINOTRANSFERASE 2022-02-18 17:43:41 Rozina Soto Uni versity [facility] er Center ALKALINE PHOSPHATASE 2022-02-18 17:43:41 Rozina Soto Univers ity of [facility] er Center BILIRUBIN TOTAL 2022-02-18 17:43:41 Rozina Soto o f [facility] Can er Center Results CBC 2022-02-18 17:43:41 Rozina Soto o [facility] Can er Center MANUAL DIFFERENTIAL 2022-02-18 17:43:41 Rozina Soto Universi ty of [facility] er Center COMPLETE BLOOD COUNT W/ 2022-02-11 18:11:00 Rozina Soto [facility] [place] DIFFERENTIAL [facility] er Center ASPARTATE AMINOTRANSFERASE 2022-02-11 18:11:00 Rozina [facility] er Center ALANINE AMINOTRANSFERASE 2022-02-11 18:11:00 Rozina Soto Uni versity of [facility] er Center ALKALINE PHOSPHATASE 2022-02-11 18:11:00 Rozina Soto ity of [facility] er Center BILIRUBIN TOTAL 2022-02-11 18:11:00 Rozina Soto o f [facility] Canc er Center Results CBC 2022-02-11 18:11:00 Rozina Soto o f [facility] Can er Center MANUAL DIFFERENTIAL 2022-02-11 18:11:00 Rozina Soto Universi ty of [facility] er Center COMPLETE BLOOD COUNT W/ 2022-02-04 17:39:16 Rozina Soto [facility] [place] DIFFERENTIAL [facility] Can er Center Results CBC 2022-02-04 17:39:16 Rozina Soto o [facility] Canc er Center MANUAL DIFFERENTIAL 2022-02-04 17:39:16 Rozina Soto [facility] Can er Center COMPLETE BLOOD COUNT W/ 2022-01-29 15:39:02 Rozina Soto [facility] [place] DIFFERENTIAL [facility] Canc er Center Results CBC 2022-01-29 15:39:02 Rozina Soto [place] [facility] Can er Center MANUAL DIFFERENTIAL 2022-01-29 15:39:02 Rozina Soto [facility] Can er Center COMPLETE BLOOD COUNT W/ 2022-01-23 16:27:34 Rozina Soto [facility] [place] DIFFERENTIAL [facility] Can er Center Results CBC 2022-01-23 16:27:34 Rozina Soto [place] [facility] Can er Center MANUAL DIFFERENTIAL 2022-01-23 16:27:34 Rozina Soto [facility] ty of [facility] er Center ECHOCARDIOGRAM 2D COMPLETE 2022-01-17 19:15:31 Rozina Soto [facility] er Center COMPLETE BLOOD COUNT W/ 2022-01-15 15:34:20 Rozina Soto [facility] [place] DIFFERENTIAL [facility] Can er Center Results CBC 2022-01-15 15:34:20 Rozina Soto [facility] Can er Center MANUAL DIFFERENTIAL 2022-01-15 15:34:20 Rozina Soto [facility] ty of [facility] er Center COMPLETE BLOOD COUNT W/ 2022-01-08 13:42:19 Rozina Soto [facility] [place] DIFFERENTIAL [facility] Can er Center Results CBC 2022-01-08 13:42:19 Rozina Soto [place] [facility] Canc er Center MANUAL DIFFERENTIAL 2022-01-08 13:42:19 Rozina Soto [facility] ty of [facility] Can er Center COMPLETE BLOOD COUNT W/ 2022-01-01 17:33:14 Rozina Soto [facility] [place] DIFFERENTIAL [facility] Can er Center Results CBC 2022-01-01 17:33:14 Rozina Soto [place] [facility] Can er Center MANUAL DIFFERENTIAL 2022-01-01 17:33:14 Rozina Sotoi ty of [facility] er Center COMPLETE BLOOD COUNT W/ 2021-12-25 17:14:01 [facility] er Center Results CBC 2021-12-25 17:14:01 Rozina Soto o f [facility] Can er Center MANUAL DIFFERENTIAL 2021-12-25 17:14:01 Rozina Soto [facility] Center COMPLETE BLOOD COUNT W/ 2021-12-18 14:42:00 [facility]ozina [facility] DI[facility] er Center ASPARTATE AMINOTRANSFERASE 2021-12-18 14:42:00 Rozina Soto [facility] er Center ALANINE AMINOTRANSFERASE 2021-12-18 14:42:00 [facility] er Center ALKALINE PHOSPHATASE 2021-12-18 14:42:00 Rozina Soto ity of [facility] er Center BILIRUBIN TOTAL 2021-12-18 14:42:00 Rozina Soto o [facility] er Center Results CBC 2021-12-18 14:42:00 Rozina Soto o [facility] er Center MANUAL DIFFERENTIAL 2021-12-18 14:42:00 Rozina Soto [facility] er Center IR FL PORT PLACEMENT 2021-12-16 22:58:21 Rozina Soto ity of [facility] er Center POC GLUCOSE SCREEN 2021-12-16 20:23:00 Sabas Mora [facility] COMPLETE BLOOD COUNT W/ 2021-12-16 17:41:00 Sabas Mora [facility] DI[facility] er Center CARBON DIOXIDE LEVEL 2021-12-16 17:41:00 Sabas Mora [facility] CHLORIDE LEVEL 2021-12-16 17:41:00 Sabas Mora [facility] SODIUM LEVEL 2021-12-16 17:41:00 Sabas Mora [facility] POTASSIUM LEVEL 2021-12-16 17:41:00 Sabas Mora [facility] SERUM CREATININE 2021-12-16 17:41:00 Sabas Mora [facility] BLOOD UREA NITROGEN 2021-12-16 17:41:00 Sabas Mora [facility] GLUCOSE, RANDOM 2021-12-16 17:41:00 Sabas Mora [facility] TYPE AND SCREEN 2021-12-16 17:41:00 Sabas Mora [facility] Results CBC 2021-12-16 17:41:00 Sabas Mora [facility] SERUM CREATININE 2021-12-16 17:41:00 Sabas Mora [facility] .GLOMERULAR FILTRATION 2021-12-16 17:41:00 Sabas Mora [facility] RATE [facility] ABORH 2021-12-16 17:41:00 Sabas Mora [facility] ANTIBODY SCREEN 2021-12-16 17:41:00 Sabas Mora [facility] MANUAL DIFFERENTIAL 2021-12-16 17:41:00 Sabas Mora [facility] ANION GAP 2021-12-16 17:41:00 Sabas Mora [facility] CLOT EXPIRATION DATE 2021-12-16 17:41:00 [facility] INTERPRETATION 2021-12-16 17:41:00 Sabas Mora [facility] ANTIBODY SCREEN NEGATIVE [facility] CONFIRM ABORH TYPE 2021-12-16 17:40:00 Sabas Mora [facility] PROTHROMBIN TIME 2021-12-16 17:33:00 Sabas Mora [facility] EKG, 12-LEAD (SCHEDULED) 2021-12-16 00:00:00 Sabas Mora [facility] MAMMO POST PROCEDURE RIGHT 2021-12-13 16:41:46 Jamila [facility] US BREAST FINE NEEDLE 2021-12-13 16:34:54 Jamila [facility] ASPIRATION - RIGHT Dahlen Giuseppe C [facility] [place] US GUIDED BREAST CLIP 2021-12-13 16:34:54 Jamila [facility] PLACEMENT RIGHT [facility] CYTOLOGY IMAGE-GUIDED FNA 2021-12-13 14:56:00 Daljit Marino [facility] INTERPRETATION [facility] CYTOLOGY IMAGE-GUIDED FNA 2021-12-13 14:54:00 Daljit Marino [facility] INTERPRETATION [facility] CT CHEST ABDOMEN PELVIS W 2021-12-06 18:17:25 Daljit Marino [facility] WO CONTRAST [facility] POC CREATININE 2021-12-06 16:46:00 Jamila, [facility] NM BONE SCAN WHOLE BODY 2021-12-06 15:56:00 Jamila, [place] [facility] MAMMO POST PROCEDURE 2021-11-20 23:56:32 Elliott Murry [facility] BILATERAL [facility] US BREAST COMPLETE 2021-11-20 23:47:00 Elliott Murry [facility] BILATERAL [facility] er Center US CHEST 2021-11-20 23:47:00 Elliott Murry [place] [facility] US HEAD NECK SOFT TISSUE 2021-11-20 23:47:00 Elliott Murry [facility] US GUIDED BREAST BIOPSY 2021-11-20 23:47:00 Elliott Murry [facility] RIGHT [facility] US GUIDED INFRACLAVICULAR 2021-11-20 23:47:00 Elliott Murry [facility] LYMPH NODE FNA - RIGHT MD Go on [facility] US GUIDED BREAST BIOPSY 2021-11-20 23:47:00 Elliott Murry [facility] LEFT [facility] US GUIDED AXILLARY LYMPH 2021-11-20 23:47:00 Elliott Murry [facility] [place] NODE FNA LEFT [facility] CYTOLOGY IMAGE-GUIDED FNA 2021-11-20 21:48:00 Elliott [facility] INTERPRETATION [facility] PATHOLOGY BIOPSY 2021-11-20 21:46:00 Elliott Murry [facility] INTERPRETATION [facility] CYTOLOGY IMAGE-GUIDED FNA 2021-11-20 21:44:00 Elliott Mur[facility] INTERPRETATION [facility] PATHOLOGY BIOPSY 2021-11-20 21:39:00 Elliott Murry [facility] INTERPRETATION [facility] MAMMO DIGITAL DIAGNOSTIC 2021-11-20 19:50:00 Elliott Murry Uni [facility] [place] BILATERAL W CAROLINA [facility] OSI US BREAST 2021-11-01 18:43:00 Fausto See [facility] OSI MAMMO BILATERAL 2021-11-01 18:43:00 Fausto See [facility] Plan of Care Planned Activity Planned Date Details Comments Source Future Scheduled 2022-09-04 COVID-19 Vaccination (4 University of Test 07:38:40 - Booster for Moderna [facility] series) [code = Cancer Cente r COVID-19 Vaccination (4 - Booster for Moderna series)] Future Scheduled 2022-08-06 COVID-19 Vaccination (4 University of Test 10:18:18 - Booster for Moderna [place] series) [code = Cancer Cente r COVID-19 Vaccination (4 - Booster for Moderna series)] Future Scheduled 2022-03-07 COVID-19 Vaccination (4 University of Test 07:36:25 - Booster for Moderna [facility] series) [code = Cancer Cente r COVID-19 Vaccination (4 - Booster for Moderna series)] Future Appointment 2022-09-11 Porter Lira MD, [address] [address]:45:00 [facility] [place] [address] Cancer Center Future Appointment 2022-09-11 Porter Lira MD, 1515 University of 07:00:00 [facility] [address] Cancer Center Future Appointment 2022-09-11 Porter Lira MD, 1515 University of 11:45:00 [facility] [address] Cancer Center Future Appointment 2022-09-11 Porter Lira MD, 1515 University of 07:00:00 [facility] [address] Cancer Center Procedure 2022-09-11 SEGMENTAL MASTECTOMY - Unive rsity of 17:45:00 OTHER [facility] Procedure 2022-09-11 AXILLARY University of 17:45:00 LYMPHADENECTOMY Humaira RAMIREZ And audra [facility] Procedure 2022-09-11 PORT-A-CATH REMOVAL Universi ty of 17:45:00 [facility] [place] Procedure 2022-09-11 SEGMENTAL MASTECTOMY - Unive rsity of 13:00:00 OTHER [facility] Procedure 2022-09-11 AXILLARY University of 13:00:00 LYMPHADENECTOMY [facility] RAMIREZ [facility] Encounters Start End Encounter Admission Attending Care Care Encounter Source Date/Time Date/Time Type Type Clinicians Facility Department ID 2022-04-18 Outpatient TALHA LIRA [facility] [id number] 08:53:31 PORTER atkins 2021-11-20 Outpatient SYSTEM, TALHA PALENCIA [id number] 13:33:08 PROVIDER Donavan atkins 2022-08-29 2022-08-29 Anesthesia Sivakumar Membreno.2.840.1 [id number] [facility] 23:59:59 23:59:59 Event Veronica Justice 78386.1.1 it y of 3.412.2.7 [place] .3.880293 .8 [facility] 2022-08-29 2022-08-29 Outpatient EDE PALENCIA MDA [id number] 08:15:00 23:59:00 AMIRA TAVAREZ 2022-08-29 2022-08-29 [facility] Ede 1.2.840.1 [id number] Univers 08:15:00 23:59:00 Encounter Amira tavarez 29455.1.1 ity of 3.412.2.7 [place] .3.328467 MD Zuñiga8 [facility] 2022-08-29 2022-08-29 JOSSESTACEY See, 1.2.840.1 [id number] [facility] 11:00:00 14:58:48 Appointwillie Veras 27279.1.1 ity of ts 3.412.2.7 [place] .3.514557 .8 [facility] 2022-08-29 2022-08-29 Outpatient MJ SEE MDA MDA [id number] 10:54:29 14:58:48 FAUSTO atkins 2022-08-29 2022-08-29 Outpatient MJ MERA MDA MDA [id number] 10:54:57 10:54:57 AMIRA TAVAREZ 2022-08-29 2022-08-29 Consult Amira Marino 1.2.840.1 1 [id number] [facility] 09:45:00 10:30:00 Derik Quintanilla 99158.1.1 it y of 3.412.2.7 [place] .3.018500 MD Zuñiga8 [facility] 2022-08-29 2022-08-29 [facility] Olive, 1.2.840.1 [id number] [facility] 09:00:00 10:00:39 Visit Ezequiel Atkins 05730.1.1 ity of 3.412.2.7 [place] .3.676472 MD Zuñiga8 [facility] 2022-08-29 2022-08-29 Outpatient MJ HARDEN MDA MDA [id number] [place] 08:58:03 10:00:39 EZEQUIEL atkins 2022-08-29 2022-08-29 Travel 1.2.840.1 1.2.210.785 [id number] [facility] 00:00:00 00:00:00 04520.1.1 350.1.13.41 ity of 3.412.2.[place]3.698 [place] .3.482263 084.8 .8 [facility] 2022-08-20 2022-08-20 Orders Luci Hightower 1.2.840.1 [id number] Univers 00:00:00 00:00:00 Only 93620.1.1 ity of 3.412.2.7 [place] .3.914416 MD Zuñiga8 [facility] 2022-08-19 2022-08-19 Office Refinetti, 1.2.840.1 [id number] Univers 14:00:00 14:43:12 Visit Porter Guerrero 59092.1.1 it y of [place] 3.412.2.7 [place] .3.426087 MD Squires [facility] 2022-08-19 2022-08-19 Outpatient REFINETTI, [facility] [id number] 12:30:57 14:43:12 PORTER Go o n 2022-08-19 2022-08-19 Ancillary Refinetti, 1.2.840.1 [id number] Univers 10:00:00 11:00:00 Procedure Porter Guerrero 31223.1.1 ity of [place] 3.412.2.7 [place] .3.015648 MD Squires [facility] 2022-08-19 2022-08-19 Outpatient REFINETTI, [facility] [id number] 10:24:43 10:24:43 PORTER Donavan o n 2022-08-19 2022-08-19 Ancillary Refinetti, 1.2.840.1 [id number] [facility] 09:00:00 10:00:00 Procedure Porter Guerrero 52569.1.1 ity of [place] 3.412.2.7 [place] .3.161933 MD Squires [facility] 2022-08-19 2022-08-19 Outpatient REFINETTI, MDA MDA [id number] 09:41:15 09:41:15 PORTER Go o n 2022-08-19 2022-08-19 Travel 1.2.840.1 1.2.076.707 [id number] Univers 00:00:00 00:00:00 16137.1.1 350.1.13.41 ity of 3.412.2.7 [place]7.3.698 [place] .3.521953 084.8 MD Squires [facility] 2022-08-06 2022-08-06 Infusion Rozina Mares 1.2.840.1 [id number] Univers 08:15:00 12:01:38 Lorena Burnett 26197.1.1 ity of 3.412.2.7 [place] .3.771823 MD Squires [facility] 2022-08-06 2022-08-06 Infusion Rozina Soto 1.2.840.1 [id number] Univers 08:15:00 12:01:38 Lorena Burnett 41429.1.1 ity of 3.412.2.7 [place] .3.485111 MD Squires [facility] 2022-08-06 2022-08-06 Outpatient ROZINA MARES [facility] [id number] [place] 08:11:37 08:26:44 [facility] 2022-08-06 2022-08-06 Travel 1.2.840.1 1.2.477.968 [id number] Univers 00:00:00 00:00:00 00271.1.1 350.1.13.41 ity of 3.412.2.7 [place]7.3.698 [place] .3.472702 084.8 MD Squires [facility] 2022-08-06 2022-08-06 Travel 1.2.840.1 1.2.273.642 [id number] Univers 00:00:00 00:00:00 04414.1.1 350.1.13.41 ity of 3.412.2.7 [place]7.3.698 [place] .3.922853 084.8 MD Squires [facility] 2022-08-05 2022-08-05 Zaida Boudreaux 1.2.840.1 [id number] Univers 00:00:00 00:00:00 Only B 74603.1.1 ity of 3.412.2.7 [place] .3.584541 MD Squires [facility] 2022-08-05 2022-08-05 Zaida Boudreaux 1.2.840.1 [id number] Univers 00:00:00 00:00:00 Only B 16696.1.1 ity of 3.412.2.7 [place] .3.282929 MD Squires [facility] 2022-07-17 2022-07-17 Infusion Rozina Mares 1.2.840.1 [id number] Univers 11:45:00 15:42:17 36139.1.1 ity of 3.412.2.7 [place] .3.008243 MD Squires [facility] 2022-07-17 2022-07-17 Rozina Orozco 1.2.840.1 [id number] Univers 11:45:00 15:42:17 39404.1.1 ity of 3.412.2.7 [place] .3.121989 MD Squires [facility] 2022-07-17 2022-07-17 Outpatient MJ ZIMMERMANU-IHEME MDA MDA [id number] 11:39:14 11:42:45 , NUZHAT [facility] 2022-07-17 2022-07-17 Travel 1.2.840.1 1.2.774.943 [id number] Univers 00:00:00 00:00:00 69419.1.1 350.1.13.41 ity of 3.412.2.[place]7.3.698 [place] .3.072668 084.8 MD Squires [facility] 2022-07-17 2022-07-17 Gurpreet Ware 1.2.840.1 [id number] Univers 00:00:00 00:00:00 Only 53356.1.1 ity of 3.412.2.7 [place] .3.863300 MD Zuñiga8 [facility] 2022-07-17 2022-07-17 Travel 1.2.840.1 1.2.098.433 [id number] Univers 00:00:00 00:00:00 89542.1.1 350.1.13.41 ity of 3.412.2.7 2.[place].7.3.698 [place] .3.924489 084.8 MD Zuñiga8 [facility] 2022-07-17 2022-07-17 Gurpreet Ware 1.2.840.1 [id number] Univers 00:00:00 00:00:00 Only 36153.1.1 ity of 3.412.2.7 [place] .3.769072 MD Zuñiga8 [facility] 2022-07-16 2022-07-16 Telemedici Chrystal-Iheme 1.2.840.1 [id number] Univers 10:30:00 11:00:00 ne , Nuzhat 94727.1.1 ity of 3.412.2.7 [place] .3.133496 MD Zuñiga8 [facility] 2022-07-16 2022-07-16 Telemedici Chrystal-Iheme 1.2.840.1 [id number] Univers 10:30:00 11:00:00 ne , Nuzhat 69712.1.1 ity of 3.412.2.7 [place] .3.142594 MD Zuñiga8 [facility] 2022-07-14 2022-07-14 Orders Chrystal-Iheme 1.2.840.1 [id number] Univers 00:00:00 00:00:00 Only , Nuzhat 71223.1.1 ity of 3.412.2.7 [place] .3.169502 MD Zuñiga8 [facility] 2022-07-14 2022-07-14 Orders Chrystal-Iheme 1.2.840.1 [id number] Univers 00:00:00 00:00:00 Only , Nuzhat 03994.1.1 ity of 3.412.2.7 [place] .3.696242 MD Zuñiga8 [facility] 2022-07-09 2022-07-09 Telephone Leary-Roverto 1.2.840.1 [id number] Univers 00:00:00 00:00:00 Amira tavarez 05431.1.1 ity of 3.412.2.7 [place] .3.824343 MD Zuñiga8 [facility] 2022-07-09 2022-07-09 Orders Leary-Roverto 1.2.840.1 [id number] Univers 00:00:00 00:00:00 Only Amira tavarez 38461.1.1 ity of 3.412.2.7 [place] .3.678323 MD Zuñiga8 [facility] 2022-07-09 2022-07-09 Orders Chrystal-Iheme 1.2.840.1 [id number] Univers 00:00:00 00:00:00 Only , Nuzhat 24746.1.1 ity of 3.412.2.7 [place] .3.831422 MD Zuñiga8 [facility] 2022-07-09 2022-07-09 Telephone Leary-Roverto 1.2.840.1 [id number] Univers 00:00:00 00:00:00 Amira tavarez 90127.1.1 ity of 3.412.2.7 [place] .3.585134 MD Zuñiga8 [facility] 2022-07-09 2022-07-09 Orders Leary-Roverto 1.2.840.1 [id number] Univers 00:00:00 00:00:00 Only Amira tavarez 62926.1.1 ity of 3.412.2.7 [place] .3.098428 MD Zuñiga8 [facility] 2022-07-09 2022-07-09 Orders Chrystal-Iheme 1.2.840.1 [id number] Univers 00:00:00 00:00:00 Only , Nuzhat 13560.1.1 ity of 3.412.2.7 [place] .3.129596 MD Zuñiga8 [facility] 2022-07-04 2022-07-04 Evaluation Amira De La Cruz 1.2.840. 1 [id number] [facility] 10:30:00 11:30:00 Diane Rodrigues 17601.1.1 ity of 3.412.2.7 [place] .3.556772 MD Squires [facility] 2022-07-04 2022-07-04 Evaluation Amira Marino 1.2.840. 1 [id number] [facility] 10:30:00 11:30:00 Diane Rodrigues 12937.1.1 ity of 3.412.2.7 [place] .3.053559 MD Zuñiga8 [facility] 2022-07-04 2022-07-04 [place] [facility] [id number] 10:53:29 10:53:54 , NUZHAT [facility] 2022-07-04 2022-07-04 Travel 1.2.840.1 1.2.864.028 1170 [id number] Univers 00:00:00 00:00:00 35584.1.1 350.1.13.41 ity of 3.412.2.7 [place].3.698 [place] .3.129212 084.8 MD Squires [facility] 2022-07-04 2022-07-04 Travel 1.2.840.1 1.2.565.744 7064 [id number] Univers 00:00:00 00:00:00 70609.1.1 350.1.13.41 ity of 3.412.2.[place].3.698 [place] .3.540148 084.8 MD Squires [facility] 2022-06-30 2022-06-30 Ancillary MJ Mera 1.2.840.1 [id number] Univers 11:30:00 13:30:00 Procedure Amira tavarez 27854.1.1 ity of 3.412.2.7 [place] .3.418115 MD Squires [facility] 2022-06-30 2022-06-30 Ancillary Leary-Roverto 1.2.840.1 [id number] Univers 11:30:00 13:30:00 Procedure Amira tavarez 37754.1.1 ity of 3.412.2.7 [place] .3.959894 MD Squires [facility] 2022-06-30 2022-06-30 Telephone Leary-Roverto 1.2.840.1 [id number] Univers 00:00:00 00:00:00 Amira tavarez 61733.1.1 ity of 3.412.2.7 [place] .3.581923 MD Squires [facility] 2022-06-30 2022-06-30 Telephone Leary-Roverto 1.2.840.1 [id number] Univers 00:00:00 00:00:00 Amira tavarez 66848.1.1 ity of 3.412.2.7 [place] .3.700161 MD Squires [facility] 2022-06-30 2022-06-30 Telephone [place], 1.2.840.1 [id number] 1098 [id number] Univers 00:00:00 00:00:00 Diann A 98836.1.1 ity of 3.412.2.7 [place] .3.451766 MD Squires [facility] [place] 2022-06-30 2022-06-30 Orders Leary-Roverto 1.2.840.1 [id number] 10 [id number] Univers 00:00:00 00:00:00 Only Amira tavarez 12123.1.1 ity of 3.412.2.7 [place] .3.719186 MD Squires [facility] 2022-06-30 2022-06-30 Travel 1.2.840.1 1.2.069.162 8560 [id number] Univers 00:00:00 00:00:00 87930.1.1 350.1.13.41 ity of 3.412.2.7 [place].3.698 [place] .3.239381 084.8 MD Squires [facility] 2022-06-30 2022-06-30 Telephone Leary-Roverto 1.2.840.1 [id number] Univers 00:00:00 00:00:00 Amira tavarez 98716.1.1 ity of 3.412.2.7 [place] .3.393452 MD Squires [facility] 2022-06-30 2022-06-30 Telephone Leary-Roverto 1.2.840.1 [id number] Univers 00:00:00 00:00:00 Amira tavarez 08810.1.1 ity of 3.412.2.7 [place] .3.242884 MD Squires [facility] 2022-06-30 2022-06-30 Telephone [facility], 1.2.840.1 [id number] 1098 [id number] Univers 00:00:00 00:00:00 Diann Rodriguez 55785.1.1 ity of 3.412.2.7 [place] .3.701371 MD Squires [facility] 2022-06-30 2022-06-30 Orders Leary-Roverto 1.2.840.1 [id number] 10 [id number] Univers 00:00:00 00:00:00 Only Amira tavarez 69873.1.1 ity of 3.412.2.7 [place] .3.628703 MD Zuñiga8 [facility] 2022-06-30 2022-06-30 Travel 1.2.840.1 1.2.838.435 2287 [id number] Univers 00:00:00 00:00:00 31635.1.1 350.1.13.41 ity of 3.412.2.7 [place]7.3.698 [place] .3.571841 084.8 MD Squires [facility] 2022-06-25 2022-06-25 Orders Jeffy 1.2.840.1 [id number] Univers 00:00:00 00:00:00 Only Khadra 99580.1.1 ity of 3.412.2.7 [place] .3.872609 MD Zuñiga8 [facility] 2022-06-25 2022-06-25 Orders Leary-Roverto 1.2.840.1 [id number] 10 [id number] Univers 00:00:00 00:00:00 Only Amira tavarez 70276.1.1 ity of 3.412.2.7 [place] .3.415515 MD Zuñiga8 [facility] 2022-06-25 2022-06-25 Orders Jeffy 1.2.840.1 [id number] Univers 00:00:00 00:00:00 Only Khadra 26000.1.1 ity of 3.412.2.7 [place] .3.667712 MD Zuñiga8 [facility] 2022-06-25 2022-06-25 Orders Leary-Roverto 1.2.840.1 [id number] 10 [id number] Univers 00:00:00 00:00:00 Only Amira tavarez 59997.1.1 ity of 3.412.2.7 [place] .3.835138 MD Zuñiga8 [facility] 2022-06-24 2022-06-24 Orders Ede 1.2.840.1 [id number] 10 [id number] Univers 00:00:00 00:00:00 Only Amira tavarez 16839.1.1 ity of 3.412.2.7 [place] .3.168048 MD Zuñiga8 [facility] 2022-06-24 2022-06-24 Orders Gurpreet Griggs 1.2.840.1 [id number] 10 [id number] Univers 00:00:00 00:00:00 Only 17182.1.1 ity of 3.412.2.7 [place] .3.490223 MD Zuñiga8 [facility] 2022-06-242022-06-24 Telephone [facility], 1.2.840.1 [id number] 1098 [id number] Univers 00:00:00 00:00:00 Diann A 38138.1.1 ity of 3.412.2.7 [place] .3.679847 MD Zuñiga8 [facility] 2022-06-24 2022-06-24 Orders LearyHiral 1.2.840.1 [id number] 10 [id number] Univers 00:00:00 00:00:00 Only Amira tavarez 00016.1.1 ity of 3.412.2.7 [place] .3.046874 MD Zuñiga8 [facility] 2022-06-24 2022-06-24 Orders Gurpreet Griggs 1.2.840.1 [id number] 10 [id number] Univers 00:00:00 00:00:00 Only 44916.1.1 ity of 3.412.2.7 [place] .3.197029 MD Zuñiga8 [facility] 2022-06-24 2022-06-24 Telephone [facility], 1.2.840.1 [id number] 1098 [id number] Univers 00:00:00 00:00:00 Diann A 23266.1.1 ity of 3.412.2.7 [place] .3.095678 MD Zuñiga8 [facility] 2022-06-23 2022-06-23 Ancillary EL Refinetti, 1.2.840.1 [id number] 1 [id number] Univers 09:45:00 12:10:00 Procedure Kyra 87849.1.1 ity of [place] 3.412.2.7 [place] .3.522373 MD Zuñiga8 [facility] 2022-06-23 2022-06-23 Ancillary Refinetti, 1.2.840.1 [id number] 1 [id number] Univers 09:45:00 12:10:00 Procedure Kyra 76832.1.1 ity of [place] 3.412.2.7 [place] .3.470471 MD Zuñiga8 [facility] 2022-06-23 2022-06-23 Travel 1.2.840.1 1.2.247.197 1849 [id number] Univers 00:00:00 00:00:00 13011.1.1 350.1.13.41 ity of 3.412.2.7 [place]7.3.698 [place] .3.877702 084.8 MD Zuñiga8 [facility] 2022-06-23 2022-06-23 Travel 1.2.840.1 1.2.923.687 0597 [id number] Univers 00:00:00 00:00:00 95437.1.1 350.1.13.41 ity of 3.412.2.7 2.2.7.3.698 [place] .3.545563 084.8 MD Zuñiga8 [facility] 2022-06-11 2022-06-11 Infusion Rozina Mares 1.2.840.1 [id number] 1 [id number] Univers 13:45:00 16:36:41 Lorena Burnett 66654.1.1 ity of 3.412.2.7 [place] .3.875732 MD Zuñiga8 [facility] 2022-06-11 2022-06-11 Infusion Rozina Soto 1.2.840.1 [id number] 1 [id number] Univers 13:45:00 16:36:41 Lorena Burnett 64744.1.1 ity of 3.412.2.7 [place] .3.285043 MD Zuñiga8 [facility] 2022-06-11 2022-06-11 Office EL Chrystal-Nuzhat Billingsley 1.2.840.1 1020 35425 [id number] Univers 11:00:00 16:05:43 Visit [place] 60495.1.1 ity of 3.412.2.7 [place] .3.530450 MD Zuñiga8 [facility] 2022-06-11 2022-06-11 Office Nuzhat Nava 1.2.840.1 1020 [id number] Univers 11:00:00 16:05:43 Visit Harjinder, [place] 90435.1.1 ity of 3.412.2.7 [place] .3.925080 MD Squires [facility] 2022-06-11 2022-06-11 Outpatient EL [facility] [id number] 12:08:24 12:46:38 , NUZHAT [facility] 2022-06-11 2022-06-11 Orders Chrystal-Iheme 1.2.840.1 [id number] 10 [id number] Univers 00:00:00 00:00:00 Only , Nuzhat 60796.1.1 ity of 3.412.2.7 [place] .3.199525 MD Squires [facility] 2022-06-11 2022-06-11 Travel 1.2.840.1 1.2.691.116 8860 [id number] Univers 00:00:00 00:00:00 19576.1.1 350.1.13.41 ity of 3.412.2.7 2.[place]7.3.698 [place] .3.894768 084.8 MD Squires [facility] 2022-06-11 2022-06-11 Telephone [facility], 1.2.840.1 [id number] 1097 [id number] Univers 00:00:00 00:00:00 Diann A 53158.1.1 ity of 3.412.2.7 [place] .3.308495 MD Squires [facility] 2022-06-11 2022-06-11 Orders Chrystal-Iheme 1.2.840.1 [id number] 10 [id number] Univers 00:00:00 00:00:00 Only , Nuzhat 54346.1.1 ity of 3.412.2.7 [place] .3.269878 MD Squires [facility] 2022-06-11 2022-06-11 Travel 1.2.840.1 1.2.621.658 5708 [id number] Univers 00:00:00 00:00:00 23292.1.1 350.1.13.41 ity of 3.412.2.7 2.2.7.3.698 [place] .3.933653 084.8 .8 [facility] 2022-06-11 2022-06-11 Telephone [facility], 1.2.840.1 [id number] 1097 [id number] Univers 00:00:00 00:00:00 Diann A 17225.1.1 ity of 3.412.2.7 [place] .3.179357 MD Zuñiga8 [facility] 2022-06-10 2022-06-10 Orders Chrystal-Iheme 1.2.840.1 [id number] 10 [id number] Univers 00:00:00 00:00:00 Only , Nuzhat 44614.1.1 ity of 3.412.2.7 [place] .3.460900 MD Zuñiga8 [facility] 2022-06-10 2022-06-10 Orders Chrystal-Iheme 1.2.840.1 [id number] 10 [id number] Univers 00:00:00 00:00:00 Only , Nuzhat 16909.1.1 ity of 3.412.2.7 [place] .3.745281 MD Zuñiga8 [facility] 2022-05-21 2022-05-21 Infusion Rozina Mares 1.2.840.1 [id number] 1 [id number] Univers 10:00:00 15:10:34 80988.1.1 ity of 3.412.2.7 [place] .3.410983 MD Squires [facility] 2022-05-21 2022-05-21 Infusion Rozina Soto 1.2.840.1 [id number] 1 [id number] Univers 10:00:00 15:10:34 45398.1.1 ity of 3.412.2.7 [place] .3.500147 MD Zuñiga8 [facility] 2022-05-21 2022-05-21 Outpatient EL [facility]IHE[facility] [id number] 09:45:39 09:53:14 , NUZHAT [facility] 2022-05-21 2022-05-21 Travel 1.2.840.1 1.2.374.742 4797 [id number] Univers 00:00:00 00:00:00 22249.1.1 350.1.13.41 ity of 3.412.2.7 2.2.7.3.698 [place] .3.772674 084.8 MD Squires [facility] 2022-05-21 2022-05-21 Travel 1.2.840.1 1.2.851.738 6009 [id number] Univers 00:00:00 00:00:00 73783.1.1 350.1.13.41 ity of 3.412.2.7 2.2.7.3.698 [place] .3.583922 084.8 MD Squires [facility] 2022-05-14 2022-05-14 Orders Leary-Roverto 1.2.840.1 [id number] 10 [id number] Univers 00:00:00 00:00:00 Only Amira tavarez 59893.1.1 ity of 3.412.2.7 [place] .3.766416 MD Squires [facility] 2022-05-14 2022-05-14 Orders Leary-Roverto 1.2.840.1 [id number] 10 [id number] Univers 00:00:00 00:00:00 Only Amira tavarez 87029.1.1 ity of 3.412.2.7 [place] .3.791586 MD Squires [facility] 2022-05-13 2022-05-13 Office EL Chrystal-Iheme 1.2.840.1 [id number] 10 [id number] Univers 14:00:00 14:30:00 Visit , Nuzhat 73336.1.1 ity of 3.412.2.7 [place] .3.087851 MD Squires [facility] 2022-05-13 2022-05-13 Office Chrystal-Iheme 1.2.840.1 [id number] 10 [id number] [facility] 14:00:00 14:30:00 Visit , Nuzhat 12218.1.1 ity of 3.412.2.7 [place] .3.852346 MD Squires [facility] 2022-05-13 2022-05-13 Travel 1.2.840.1 1.2.720.066 7742 [id number] Univers 00:00:00 00:00:00 70202.1.1 350.1.13.41 ity of 3.412.2.7 2.2.7.3.698 [place] .3.034062 084.8 MD Zuñiga8 [facility] 2022-05-13 2022-05-13 Travel 1.2.840.1 1.2.017.327 2348 [id number] Univers 00:00:00 00:00:00 59063.1.1 350.1.13.41 ity of 3.412.2.7 2.2.7.3.698 [place] .3.985352 084.8 MD Squires [facility] 2022-04-23 2022-04-[address] [facility] MDA [id number] 14:43:58 14:54:12 , NUZHAT [facility] 2022-04-22 2022-04-22 Rozina eHrnandez 1.2.840.1 [id number] 10 [id number] Univers 00:00:00 00:00:00 Only 35515.1.1 ity of 3.412.2.7 [place] .3.633485 MD Squires [facility] 2022-04-22 2022-04-22 Rozina Hernandez 1.2.840.1 [id number] 10 [id number] Univers 00:00:00 00:00:00 Only 13403.1.1 ity of 3.412.2.7 [place] .3.911439 MD Squires [facility] 2022-04-17 2022-04-17 Prep for Ede 1.2.840.1 [id number] 1 [id number] Univers 00:00:00 00:00:00 Surgery Amira tavarez 47034.1.1 ity of 3.412.2.7 [place] .3.187455 MD Squires [facility] 2022-04-17 2022-04-17 Orders Leary-Roverto 1.2.840.1 [id number] 10 [id number] Univers 00:00:00 00:00:00 Only Amira tavarez 24295.1.1 ity of 3.412.2.7 [place] .3.095961 MD Zuñiga8 [facility] 2022-04-17 2022-04-17 Prep for Leary-Roverto 1.2.840.1 [id number] 1 [id number] Univers 00:00:00 00:00:00 Surgery Amira tavarez 94844.1.1 ity of 3.412.2.7 [place] .3.730984 MD Zuñiga8 [facility] 2022-04-17 2022-04-17 Orders Leary-Roverto 1.2.840.1 [id number] 10 [id number] Univers 00:00:00 00:00:00 Only Amira tavarez 01283.1.1 ity of 3.412.2.7 [place] .3.249308 MD Zuñiga8 [facility] 2022-04-16 2022-04-16 Telemedici Chrystal-Iheme 1.2.840.1 [id number] Univers 10:30:00 11:00:00 ne , Nuzhat 16715.1.1 ity of 3.412.2.7 [place] .3.737091 MD Squires [facility] 2022-04-16 2022-04-16 Telemedici Chrystal-Iheme 1.2.840.1 [id number] Univers 10:30:00 11:00:00 ne , Nuzhat 60583.1.1 ity of 3.412.2.7 [place] .3.313600 MD Squires [facility] 2022-04-11 2022-04-11 Office EL Chrystal-Iheme 1.2.840.1 [id number] 10 [id number] Univers 14:30:00 15:00:00 Visit , Nuzhat 03284.1.1 ity of 3.412.2.7 [place] .3.072128 MD Squires [facility] 2022-04-11 2022-04-11 Office Chrystal-Iheme 1.2.840.1 [id number] 10 [id number] Univers 14:30:00 15:00:00 Visit , Nuzhat 29738.1.1 ity of 3.412.2.7 [place] .3.969933 MD Squires [facility] 2022-04-11 2022-04-11 Office EL Refinetti, 1.2.840.1 [id number] 314 [id number] Univers 10:00:00 14:23:06 Visit Porter Guerrero 25145.1.1 it y of [place] 3.412.2.7 [place] .3.042743 MD Squires [facility] 2022-04-11 2022-04-11 Office Refinetti, 1.2.840.1 [id number] 791 [id number] Univers 10:00:00 14:23:06 Visit Porter Guerrero 68557.1.1 it y of [place] 3.412.2.7 [place] .3.014441 MD Squires [facility] 2022-04-11 2022-04-11 Ancillary EL Leary-Roverto 1.2.840.1 [id number] Univers 07:50:00 08:50:00 Procedure Amira tavarez 67021.1.1 ity of 3.412.2.7 [place] .3.667382 MD Squires [facility] 2022-04-11 2022-04-11 Ancillary Leary-Roverto 1.2.840.1 [id number] Univers 07:50:00 08:50:00 Procedure Amira tavarez 13412.1.1 ity of 3.412.2.7 [place] .3.363555 MD Squires [facility] 2022-04-11 2022-04-11 Orders Zaida Blackmon 1.2.840.1 [id number] [id number] Univers 00:00:00 00:00:00 Only B 23488.1.1 ity of 3.412.2.7 [place] .3.692569 MD Squires [facility] 2022-04-11 2022-04-11 Orders Chrystal-Iheme 1.2.840.1 [id number] 10 [id number] Univers 00:00:00 00:00:00 Only , Nuzhat 56533.1.1 ity of 3.412.2.7 [place] .3.886918 MD Squires [facility] 2022-04-11 2022-04-11 Travel 1.2.840.1 1.2.884.020 8918 [id number] Univers 00:00:00 00:00:00 23992.1.1 350.1.13.41 ity of 3.412.2.7 2.2.7.3.698 [place] .3.258206 084.Rubia Squires [facility] 2022-04-11 2022-04-11 Orders Zaida Blackmon 1.2.840.1 [id number] 251 [id number] Univers 00:00:00 00:00:00 Only B 57461.1.1 ity of 3.412.2.7 [place] .3.998409 MD Squires [facility] 2022-04-11 2022-04-11 Orders Chrystal-Iheme 1.2.840.1 [id number] 10 [id number] Univers 00:00:00 00:00:00 Only , Nuzhat 61070.1.1 ity of 3.412.2.7 [place] .3.598860 MD Squires [facility] 2022-04-11 2022-04-11 Travel 1.2.840.1 1.2.480.802 7757 [id number] Univers 00:00:00 00:00:00 09784.1.1 350.1.13.41 ity of 3.412.2.7 2.2.7.3.698 [place] .3.502880 084.8 MD Squires [facility] 2022-04-10 2022-04-10 Orders Rozina Soto 1.2.840.1 [id number] 10 [id number] Univers 00:00:00 00:00:00 Only 60336.1.1 ity of 3.412.2.7 [place] .3.260985 MD Zuñiga8 [facility] 2022-04-10 2022-04-10 Orders Rozina Soto 1.2.840.1 [id number] 10 [id number] Univers 00:00:00 00:00:00 Only 47213.1.1 ity of 3.412.2.7 [place] .3.434059 MD Zuñiga8 [facility] 2022-04-09 2022-04-09 Orders Chrystal-Iheme 1.2.840.1 [id number] 10 [id number] Univers 00:00:00 00:00:00 Only , Nuzhat 72898.1.1 ity of 3.412.2.7 [place] .3.799502 MD Zuñiga8 [facility] 2022-04-09 2022-04-09 Telephone Rozina Soto 1.2.840.1 [id number] Univers 00:00:00 00:00:00 18609.1.1 ity of 3.412.2.7 [place] .3.612473 MD Zuñiga8 [facility] 2022-04-09 2022-04-09 Orders Chrystal-Iheme 1.2.840.1 [id number] 10 [id number] Univers 00:00:00 00:00:00 Only , Nuzhat 43046.1.1 ity of 3.412.2.7 [place] .3.437142 MD Zuñiga8 [facility] 2022-04-09 2022-04-09 Telephone Rozina Soto 1.2.840.1 [id number] Univers 00:00:00 00:00:00 76883.1.1 ity of 3.412.2.7 [place] .3.304319 MD Zuñiga8 [facility] 2022-04-01 2022-04-01 Infusion Rozina Mares 1.2.840.1 [id number] 1 [id number] Univers 13:00:00 15:00:00 45628.1.1 ity of 3.412.2.7 [place] .3.647088 MD Squires [facility] 2022-04-01 2022-04-01 Infusion Rozina Soto 1.2.840.1 [id number] 1 [id number] [facility] 13:00:00 15:00:00 13593.1.1 ity of 3.412.2.7 [place] .3.272740 MD Zuñiga8 [facility] 2022-04-01 2022-04-01 Outpatient ROZINA MARES [facility] MDA [id number] 12:11:48 12:17:13 [facility] 2022-04-01 2022-04-01 Travel 1.2.840.1 1.2.946.798 7259 [id number] [facility] 00:00:00 00:00:00 60825.1.1 350.1.13.41 ity of 3.412.2.7 2.2.7.3.698 [place] .3.825070 084.Rubia Zuñiga8 [facility] 2022-04-01 2022-04-01 Travel 1.2.840.1 1.2.874.529 7576 [id number] [facility] 00:00:00 00:00:00 98660.1.1 350.1.13.41 ity of 3.412.2.7 2.2.7.3.698 [place] .3.183793 084.8 MD Squires [facility] 2022-03-25 2022-03-25 Infusion Rozina Mares 1.2.840.1 [id number] 1 [id number] [facility] 13:00:00 17:51:54 66725.1.1 ity of 3.412.2.7 [place] .3.507130 MD Squires [facility] 2022-03-25 2022-03-25 Infusion Rozina Soto 1.2.840.1 [id number] 1 [id number] [facility] 13:00:00 17:51:54 65608.1.1 ity of 3.412.2.7 [place] .3.718081 MD Squires [facility] 2022-03-25 2022-03-25 Outpatient EL ROZINA SOTO [facility] [id number] 13:16:29 13:16:56 [facility] 2022-03-25 2022-03-25 Orders Chrystal-Iheme 1.2.840.1 [id number] 10 [id number] Univers 00:00:00 00:00:00 Only , Nuzhat 88267.1.1 ity of 3.412.2.7 [place] .3.350156 MD Squires [facility] 2022-03-25 2022-03-25 Rozina Hernandez 1.2.840.1 [id number] 10 [id number] Univers 00:00:00 00:00:00 Only 55009.1.1 ity of 3.412.2.7 [place] .3.828947 MD Squires [facility] 2022-03-25 2022-03-25 Travel 1.2.840.1 1.2.821.190 0424 [id number] Univers 00:00:00 00:00:00 14576.1.1 350.1.13.41 ity of 3.412.2.7 2.2.7.3.698 [place] .3.894159 084.8 MD Squires [facility] 2022-03-25 2022-03-25 Orders Chrystal-Iheme 1.2.840.1 [id number] 10 [id number] Univers 00:00:00 00:00:00 Only , Nuzhat 99079.1.1 ity of 3.412.2.7 [place] .3.918919 MD Squires [facility] 2022-03-25 2022-03-25 Rozina Hernandez 1.2.840.1 [id number] 10 [id number] Univers 00:00:00 00:00:00 Only 25081.1.1 ity of 3.412.2.7 [place] .3.795496 MD Squires [facility] 2022-03-25 2022-03-25 Travel 1.2.840.1 1.2.751.381 6636 [id number] Univers 00:00:00 00:00:00 76115.1.1 350.1.13.41 ity of 3.412.2.7 2.2.7.3.698 [place] .3.635444 084.8 .8 [facility] 2022-03-18 2022-03-18 Infusion Chrystal-Iheme 1.2.840.1 [id number] 1 [id number] Univers 13:00:00 15:00:00 , Nuzhat 94537.1.1 ity of 3.412.2.7 [place] .3.525715 MD Zuñiga8 [facility] 2022-03-18 2022-03-18 Infusion EL Chrystal-Iheme 1.2.840.1 [id number] 1 [id number] Univers 13:00:00 15:00:00 , Nuzhat 89705.1.1 ity of 3.412.2.7 [place] .3.859905 MD Squires [facility] 2022-03-18 2022-03-18 Outpatient ROZINA MARES [facility] [id number] 12:15:26 12:18:34 [facility] 2022-03-18 2022-03-18 Travel 1.2.840.1 1.2.931.057 2556 [id number] [facility] 00:00:00 00:00:00 33349.1.1 350.1.13.41 ity of 3.412.2.[place]3.698 [place].147[place] 084.8 MD Squires [facility] 2022-03-18 2022-03-18 Travel 1.2.840.1 1.2.559.339 [id number] [facility] 00:00:00 00:00:00 11908.1.1 350.1.13.41 it[place] of 3.412.2.7 [place].3.698 [place]3.503401 084.8 MD Squires [facility] 2022-03-13 2022-03-13 Rozina Hernandez 1.2.840.1 [id number] 10 [id number] [facility] 00:00:00 00:00:00 Only 93306.1.1 ity of 3.412.2.7 [place] .3.500292 .8 [facility] 2022-03-13 2022-03-13 Rozina Hernandez 1.2.840.1 [id number] 10 [id number] [facility] 00:00:00 00:00:00 Only 02187.1.1 ity of 3.412.2.7 [place] .3.520424 .8 [facility] 2022-03-11 2022-03-11 Telemedici Chrystal-Iheme 1.2.840.1 [id number] [facility] 12:45:00 13:15:00 ne , Nuzhat 43723.1.1 ity of 3.412.2.7 [place] .3.177228 MD Zuñiga8 [facility] 2022-03-11 2022-03-11 Telemedici EL Chrystal-Iheme 1.2.840.1 [id number] [facility] 12:45:00 13:15:00 ne , Nuzhat 04903.1.1 ity of 3.412.2.7 [place] .3.500261 .8 [facility] 2022-03-11 2022-03-11 Infusion Chrystal-Iheme 1.2.840.1 [id number] 1 [id number] [facility] 11:00:00 13:00:00 , Nuzhat 07979.1.1 ity of 3.412.2.7 [place] .3.971566 .8 [facility] 2022-03-11 2022-03-11 Infusion EL Chrystal-Iheme 1.2.840.1 [id number] 1 [id number] [facility] 11:00:00 13:00:00 , Nuzhat 18049.1.1 ity of 3.412.2.7 [place] .3.941685 MD Zuñiga8 [facility] 2022-03-11 2022-03-11 Outpatient ROZINA MARES [facility] [id number] 10:36:25 10:39:37 [facility] 2022-03-11 2022-03-11 Travel 1.2.840.1 1.2.241.639 [id number] [facility] 00:00:00 00:00:00 58898.1.1 350.1.13.41 ity of 3.412.2.7 2.[place].7.3.698 [place] .3.136177 084.8 MD Zuñiga8 [facility] 2022-03-11 2022-03-11 Travel 1.2.840.1 1.2.326.134 3709 [id number] [facility] 00:00:00 00:00:00 54139.1.1 350.1.13.41 ity of 3.412.2.7 2.2.7.3.698 [place] .3.107755 084.8 MD Zuñiga8 [facility] 2022-03-10 2022-03-10 Rozina Hernandez 1.2.840.1 [id number] 10 [id number] [facility] 00:00:00 00:00:00 Only 56331.1.1 ity of 3.412.2.7 [place] .3.216556 MD Zuñiga8 [facility] 2022-03-10 2022-03-10 Orders Chrystal-Iheme 1.2.840.1 [id number] 10 [id number] [facility] 00:00:00 00:00:00 Only , Nuzhat 40483.1.1 ity of 3.412.2.7 [place] .3.659663 MD Zuñiga8 [facility] 2022-03-10 2022-03-10 Rozina Hernandez 1.2.840.1 [id number] 10 [id number] [facility] 00:00:00 00:00:00 Only 67687.1.1 ity of 3.412.2.7 [place] .3.357236 MD Zuñiga8 [facility] 2022-03-10 2022-03-10 Orders Chrystal-Iheme 1.2.840.1 [id number] 10 [id number] [facility] 00:00:00 00:00:00 Only , Nuzhat 27592.1.1 ity of 3.412.2.7 [place] .3.947725 MD Zuñiga8 [facility] 2022-03-04 2022-03-04 Infusion Rozina Soto 1.2.840.1 [id number] 1 [id number] Univers 13:00:00 15:00:00 77633.1.1 ity of 3.412.2.7 [place] .3.576380 MD Zuñiga8 [facility] 2022-03-04 2022-03-04 Infusion Rozina Soto 1.2.840.1 [id number] 1 [id number] Univers 13:00:00 15:00:00 69231.1.1 ity of 3.412.2.7 [place] .3.877590 MD Zuñiga8 [facility] 2022-03-04 2022-03-04 Orders Gibran-Roverto 1.2.840.1 [id number] 10 [id number] [facility] 00:00:00 00:00:00 Only Amira tavarez 94325.1.1 ity of 3.412.2.7 [place] .3.587164 MD Zuñiga8 [facility] 2022-03-04 2022-03-04 Travel 1.2.840.1 1.2.393.271 1280 [id number] [facility] 00:00:00 00:00:00 05547.1.1 350.1.13.41 ity of 3.412.2.7 2.[place]7.3.698 [place] .3.343401 084.8 MD Squires [facility] 2022-03-04 2022-03-04 Orders Gibran-Roverto 1.2.840.1 [id number] 10 [id number] [facility] 00:00:00 00:00:00 Only Amira tavarez 30670.1.1 ity of 3.412.2.7 [place] .3.068891 MD Squires [facility] 2022-03-04 2022-03-04 Travel 1.2.840.1 1.2.123.247 8421 [id number] [facility] 00:00:00 00:00:00 11449.1.1 350.1.13.41 ity of 3.412.2.7 2.2.7.3.698 [place] .3.686802 084.8 MD Zuñiga8 [facility] 2022-03-03 2022-03-03 Orders Leary-Roverto 1.2.840.1 [id number] 10 [id number] Univers 00:00:00 00:00:00 Only shya, Amira 22617.1.1 ity of 3.412.2.7 [place] .3.937396 MD Zuñiga8 [facility] 2022-03-03 2022-03-03 Orders Leary-Roverto 1.2.840.1 [id number] 10 [id number] [facility] 00:00:00 00:00:00 Only shay, Amira 16235.1.1 ity of 3.412.2.7 [place] .3.963264 MD Zuñiga8 [facility] 2022-03-03 2022-03-03 Orders Leary-Roverto 1.2.840.1 [id number] 10 [id number] [facility] 00:00:00 00:00:00 Only shay, Amira 68892.1.1 ity of 3.412.2.7 [place] .3.531425 MD Zuñiga8 [facility] 2022-03-03 2022-03-03 Orders Leary-Roverto 1.2.840.1 [id number] 10 [id number] Univers 00:00:00 00:00:00 Only shay, Amira 21325.1.1 ity of 3.412.2.7 [place] .3.766283 MD Zuñiga8 [facility] 2022-02-25 2022-02-25 Infusion Rozina Soto 1.2.840.1 [id number] 1 [id number] Univers 10:45:00 15:56:41 87885.1.1 ity of 3.412.2.7 [place] .3.090458 MD Zuñiga8 [facility] 2022-02-25 2022-02-25 Infusion Rozina Soto 1.2.840.1 [id number] 1 [id number] Univers 10:45:00 15:56:41 73588.1.1 ity of 3.412.2.7 [place] .3.675144 MD Squires [facility] 2022-02-25 2022-02-25 Travel 1.2.840.1 1.2.607.540 7006 [id number] [facility] 00:00:00 00:00:00 39469.1.1 350.1.13.41 ity of 3.412.2.7 2.2[place]7.3.698 [place] .3.7830[place] 084.8 MD Squires [facility] 2022-02-25 2022-02-25 Travel 1.2.840.1 1.2.465.824 [id number] [facility] 00:00:00 00:00:00 16692.1.1 350.1.13.41 ity of 3.412.2.[place].3.698 [place] 084.Rubia Squires [facility] 2022-02-24 2022-02-24 Orders Leary-Roverto 1.2.840.1 [id number] 10 [id number] Univers 00:00:00 00:00:00 Only Sunshine tavarezsy 48165.1.1 ity of 3.412.2.7 [place] .3.972321 MD Squires [facility] 2022-02-24 2022-02-24 Orders Leary-Roverto 1.2.840.1 [id number] 10 [id number] Univers 00:00:00 00:00:00 Only Amira tavarez 31674.1.1 ity of 3.412.2.7 [place] .3.590362 MD Squires [facility] 2022-02-18 2022-02-18 Rozina Orozco 1.2.840.1 [id number] 1 [id number] Univers 10:15:00 17:25:37 28964.1.1 ity of 3.412.2.7 [place] .3.562292 MD Squires [facility] 2022-02-18 2022-02-18 Rozina Orozco 1.2.840.1 [id number] 1 [id number] Univers 10:15:00 17:25:37 48313.1.1 ity of 3.412.2.7 [place] .3.799868 MD Zuñiga8 [facility] 2022-02-18 2022-02-18 Rozina Hernandez 1.2.840.1 [id number] 10 [id number] Univers 00:00:00 00:00:00 Only 92310.1.1 ity of 3.412.2.7 [place] .3.292307 MD Zuñiga8 [facility] 2022-02-18 2022-02-18 Travel 1.2.840.1 1.2.517.947 7621 737302 Univers 00:00:00 00:00:00 55152.1.1 350.1.13.41 ity of 3.412.2.7 [place]7.3.698 [place] .3.8664[place] 08Dudley.8 MD Zuñiga8 [facility] 2022-02-18 2022-02-18 Orders Chrystal-Iheme 1.2.840.1 [id number] 10 [id number] Univers 00:00:00 00:00:00 Only , Nuzhat 33246.1.1 ity of 3.412.2.7 [place] .3.269472 MD Zuñiga8 [facility] 2022-02-18 2022-02-18 Rozina Hernandez 1.2.840.1 [id number] 10 [id number] Univers 00:00:00 00:00:00 Only 80455.1.1 ity of 3.412.2.7 [place] .3.328079 MD Zuñiga8 [facility] 2022-02-18 2022-02-18 Travel 1.2.840.1 1.2.618.022 4252 [id number] Univers 00:00:00 00:00:00 78727.1.1 350.1.13.41 ity of 3.412.2.7 [place]7.3.698 [place] .3.876722 084.8 MD Squires [facility] 2022-02-18 2022-02-18 Orders Chrystal-Iheme 1.2.840.1 [id number] 10 [id number] Univers 00:00:00 00:00:00 Only , Nuzhat 51048.1.1 ity of 3.412.2.7 [place] .3.753404 .8 [facility] 2022-02-11 2022-02-11 Office Chrystal-eme 1.2.840.1 [id number] 10 [id number] Univers 14:30:00 14:30:00 Visit , Nuzhat 62467.1.1 ity of 3.412.2.7 [place] .3.675363 MD Zuñiga8 [facility] 2022-02-11 2022-02-11 Office Chrystal-eme 1.2.840.1 [id number] 10 [id number] Univers 14:30:00 14:30:00 Visit , Nuzhat 99485.1.1 ity of 3.412.2.7 [place] .3.349946 MD Zuñiga8 [facility] 2022-02-11 2022-02-11 Travel 1.2.840.1 1.2.376.411 3512 [id number] Univers 00:00:00 00:00:00 36290.1.1 350.1.13.41 ity of 3.412.2.7 [place]7.3.698 [place] .3.056452 084.8 MD Squires [facility] 2022-02-11 2022-02-11 Travel 1.2.840.1 1.2.601.788 7230 [id number] Univers 00:00:00 00:00:00 30614.1.1 350.1.13.41 ity of 3.412.2.7 [place].7.3.698 [place] .3.374495 084.8 MD Squires [facility] 2022-02-04 2022-02-04 Rozina Orozco 1.2.840.1 [id number] 1 [id number] Univers 13:45:00 16:11:13 39982.1.1 ity of 3.412.2.7 [place] .3.313493 MD Squires [facility] 2022-02-04 2022-02-04 Infusion Rozina Soto 1.2.840.1 [id number] 1 [id number] Univers 13:45:00 16:11:13 87462.1.1 ity of 3.412.2.7 [place] .3.325414 MD Squires [facility] 2022-02-04 2022-02-04 Travel 1.2.840.1 1.2.086.642 7502 150319 Univers 00:00:00 00:00:00 07287.1.1 350.1.13.41 ity of 3.412.2.7 2.2.7.3.698 [place] .3.431584 084.8 MD Squires [facility] 2022-02-04 2022-02-04 Travel 1.2.840.1 1.2.162.329 5816 [id number] Univers 00:00:00 00:00:00 41509.1.1 350.1.13.41 ity of 3.412.2.7 2.2.7.3.698 [place] .3.687968 084.8 MD Squires [facility] 2022-01-29 2022-01-29 Infusion Rozina Soto 1.2.840.1 [id number] 1 [id number] Univers 11:15:00 15:44:58 60965.1.1 ity of 3.412.2.7 [place] .3.051264 MD Squires [facility] 2022-01-29 2022-01-29 Infusion Rozina Soto 1.2.840.1 [id number] 1 [id number] Univers 11:15:00 15:44:58 13954.1.1 ity of 3.412.2.7 [place] .3.089378 MD Squires [facility] 2022-01-29 2022-01-29 Travel 1.2.840.1 1.2.822.445 8952 [id number] Univers 00:00:00 00:00:00 34009.1.1 350.1.13.41 ity of 3.412.2.7 2.2.7.3.698 [place] .3.450063 084.8 MD Squires [facility] 2022-01-29 2022-01-29 Travel 1.2.840.1 1.2.953.337 0695 [id number] Univers 00:00:00 00:00:00 19466.1.1 350.1.13.41 ity of 3.412.2.7 2.2.7.3.698 [place] .3.922828 084.8 MD Squires [facility] 2022-01-23 2022-01-23 Infusion Rozina Soto 1.2.840.1 [id number] 1 [id number] Univers 11:30:00 16:44:59 33139.1.1 ity of 3.412.2.7 [place] .3.205486 MD Squires [facility] 2022-01-23 2022-01-23 Infusion Rozina Soto 1.2.840.1 [id number] 1 [id number] Univers 11:30:00 16:44:59 59813.1.1 ity of 3.412.2.7 [place] .3.712004 MD Zuñiga8 [facility] 2022-01-23 2022-01-23 Orders Rozina Soto 1.2.840.1 [id number] 10 [id number] Univers 00:00:00 00:00:00 Only 07628.1.1 ity of 3.412.2.7 [place] .3.366724 MD Squires [facility] 2022-01-23 2022-01-23 Travel 1.2.840.1 1.2.158.887 0701 [id number] Univers 00:00:00 00:00:00 75240.1.1 350.1.13.41 ity of 3.412.2.7 2.2.7.3.698 [place] .3.166919 084.8 MD Squires [facility] 2022-01-23 2022-01-23 Rozina Hernandez 1.2.840.1 [id number] 10 [id number] Univers 00:00:00 00:00:00 Only 90805.1.1 ity of 3.412.2.7 [place] .3.477683 MD Zuñiga8 [facility] 2022-01-23 2022-01-23 Travel 1.2.840.1 1.2.310.735 3998 [id number] Univers 00:00:00 00:00:00 54409.1.1 350.1.13.41 ity of 3.412.2.7 2.2.7.3.698 [place] .3.913089 084.8 MD Squires [facility] 2022-01-22 2022-01-22 Rozina Hernandez 1.2.840.1 [id number] 10 [id number] Univers 00:00:00 00:00:00 Only 05916.1.1 ity of 3.412.2.7 [place] .3.357434 MD Squires [facility] 2022-01-22 2022-01-22 Rozina Hernandez 1.2.840.1 [id number] 10 [id number] Univers 00:00:00 00:00:00 Only 53521.1.1 ity of 3.412.2.7 [place] .3.435990 MD Squires [facility] 2022-01-17 2022-01-17 [facility] Rozina Soto 1.2.840.1 [id number] 1 [id number] Univers 13:00:00 23:59:00 Encounter 02419.1.1 it y of 3.412.2.7 [place] .3.441960 MD Squires [facility] 2022-01-17 2022-01-17 [facility] Rozina Soto 1.2.840.1 [id number] 1 [id number] Univers 13:00:00 23:59:00 Encounter 60952.1.1 it y of 3.412.2.7 [place] .3.376545 MD Zuñiga8 [facility] 2022-01-17 2022-01-17 Travel 1.2.840.1 1.2.664.279 8212 084126 Univers 00:00:00 00:00:00 58955.1.1 350.1.13.41 ity of 3.412.2.7 2.2.7.3.698 [place] .3.796910 084.8 MD Zuñiga8 [facility] 2022-01-17 2022-01-17 Travel 1.2.840.1 1.2.419.375 3981 [id number] Univers 00:00:00 00:00:00 36557.1.1 350.1.13.41 ity of 3.412.2.7 2.2.7.3.698 [place] .3.273992 084.8 MD Squires [facility] 2022-01-15 2022-01-15 Infusion Rozina Soto 1.2.840.1 [id number] 1 [id number] Univers 13:00:00 16:18:09 02776.1.1 ity of 3.412.2.7 [place] .3.204595 MD Squires [facility] 2022-01-15 2022-01-15 Infusion Rozina Soto 1.2.840.1 [id number] 1 [id number] Univers 13:00:00 16:18:09 37544.1.1 ity of 3.412.2.7 [place] .3.658024 MD Squires [facility] 2022-01-15 2022-01-15 Telemedici Chrystal-Iheme 1.2.840.1 [id number] Univers 11:30:00 11:56:36 Nuzhat burns 73362.1.1 ity of 3.412.2.7 [place] .3.180419 MD Squires [facility] 2022-01-15 2022-01-15 Telemedici Chrystal-Iheme 1.2.840.1 [id number] Univers 11:30:00 11:56:36 ne , Nuzhat 21283.1.1 ity of 3.412.2.7 [place] .3.289554 MD Zuñiga8 [facility] 2022-01-15 2022-01-15 Travel 1.2.840.1 1.2.054.696 2827 176517 Univers 00:00:00 00:00:00 41488.1.1 350.1.13.41 ity of 3.412.2.7 2.2.7.3.698 [place] .3.376639 084.8 MD Squires [facility] 2022-01-15 2022-01-15 Travel 1.2.840.1 1.2.509.319 7178 406716 Univers 00:00:00 00:00:00 03467.1.1 350.1.13.41 ity of 3.412.2.7 2.2.7.3.698 [place] .3.012702 084.Rubia Squires [facility] 2022-01-14 2022-01-14 Orders Chrystal-Iheme 1.2.840.1 [id number] 10 [id number] Univers 00:00:00 00:00:00 Only , Nuzhat 92359.1.1 ity of 3.412.2.7 [place] .3.690746 MD Squires [facility] 2022-01-14 2022-01-14 Orders Chrystal-Iheme 1.2.840.1 [id number] 10 [id number] Univers 00:00:00 00:00:00 Only , Nuzhat 21522.1.1 ity of 3.412.2.7 [place] .3.044125 MD Squires [facility] 2022-01-08 2022-01-08 Infusion Rozina Mares 1.2.840.1 [id number] 1 [id number] [facility] 10:30:00 16:10:48 21326.1.1 ity of 3.412.2.7 [place] .3.300185 MD Squires [facility] 2022-01-08 2022-01-08 [place] Orozcoisti 1.2.840.1 [id number] 1 [id number] [facility] 10:30:00 16:10:48 25970.1.1 ity of 3.412.2.7 [place] .3.756353 MD Squires [facility] 2022-01-08 2022-01-08 Outpatient ROZINA MARES [facility] [id number] 08:29:14 08:33:53 [facility] 2022-01-08 2022-01-08 Travel 1.2.840.1 1.2.351.197 3759 [id number] Univers 00:00:00 00:00:00 69618.1.1 350.1.13.41 ity of 3.412.2.7 2.2.7.3.698 [place] .3.387822 084.8 MD Squires [facility] 2022-01-08 2022-01-08 Travel 1.2.840.1 1.2.079.295 3170 [id number] Univers 00:00:00 00:00:00 63040.1.1 350.1.13.41 ity of 3.412.2.7 2.2.7.3.698 [place] .3.422965 084.8 MD Squires [facility] 2022-01-02 2022-01-02 Ancillary MJ See, 1.2.840.1 [id number] 471 [id number] Univers 23:10:00 23:15:00 Procedure Fausto Veras 27927.1.1 ity of 3.412.2.7 [place] .3.755310 MD Squires [facility] 2022-01-02 2022-01-02 Ancillary Opal 1.2.840.1 [id number] 731 [id number] Univers 23:10:00 23:15:00 Procedure Fausto Veras 31865.1.1 ity of 3.412.2.7 [place] .3.072973 MD Squires [facility] 2022-01-02 2022-01-02 Ancillary MJ See, 1.2.840.1 [id number] 583 [id number] Univers 23:05:00 23:10:00 Procedure Fausto Veras 42184.1.1 ity of 3.412.2.7 [place] .3.080764 MD Zuñiga8 [facility] 2022-01-02 2022-01-02 Ancillary Opal, 1.2.840.1 [id number] 971 [id number] Univers 23:05:00 23:10:00 Procedure Fausto Veras 28903.1.1 ity of 3.412.2.7 [place] .3.671317 MD Zuñiga8 [facility] 2022-01-02 2022-01-02 Ancillary MJ See, 1.2.840.1 [id number] 962 [id number] Univers 23:00:00 23:05:00 Procedure Fausto Veras 43656.1.1 ity of 3.412.2.7 [place] .3.970481 MD Zuñiga8 [facility] 2022-01-02 2022-01-02 Ancillary Opal, 1.2.840.1 [id number] 976 [id number] Univers 23:00:00 23:05:00 Procedure Fausto Veras 65988.1.1 ity of 3.412.2.7 [place] .3.795278 MD Zuñiga8 [facility] 2022-01-02 2022-01-02 Ancillary MJ See, 1.2.840.1 [id number] 341 [id number] Univers 22:55:00 23:00:00 Procedure Fausto Veras 18241.1.1 ity of 3.412.2.7 [place] .3.761148 MD Zuñiga8 [facility] 2022-01-02 2022-01-02 Ancillary Opal, 1.2.840.1 [id number] 356 [id number] Univers 22:55:00 23:00:00 Procedure Fausto D. 11983.1.1 ity of 3.412.2.7 [place] .3.330310 MD Zuñiga8 [facility] 2022-01-02 2022-01-02 Ancillary MJ See, 1.2.840.1 [id number] 912 [id number] Univers 22:50:00 22:55:00 Procedure Fausto D. 69873.1.1 ity of 3.412.2.7 [place] .3.151379 MD Zuñiga8 [facility] 2022-01-02 2022-01-02 Ancillary Opal, 1.2.840.1 970178066 161 [id number] Univers 22:50:00 22:55:00 Procedure Fausto Veras 41059.1.1 ity of 3.412.2.7 [place] .3.371672 MD Zuñiga8 [facility] 2022-01-02 2022-01-02 Ancillary MJ See, 1.2.840.1 701263852 555 [id number] Univers 22:45:00 22:50:00 Procedure Fausto Veras 27303.1.1 ity of 3.412.2.7 [place] .3.923425 MD Zuñiga8 [facility] 2022-01-02 2022-01-02 Ancillary Opal, 1.2.840.1 [id number] 708 [id number] Univers 22:45:00 22:50:00 Procedure Fausto D. 13180.1.1 ity of 3.412.2.7 [place] .3.786311 MD Zuñiga8 [facility] 2022-01-02 2022-01-02 Ancillary MJ See, 1.2.840.1 727052465 609 [id number] Univers 22:40:00 22:45:00 Procedure Fausto D. 48172.1.1 ity of 3.412.2.7 [place] .3.306829 MD Zuñiga8 [facility] 2022-01-02 2022-01-02 Ancillary Opal, 1.2.840.1 [id number] 752 [id number] Univers 22:40:00 22:45:00 Procedure Fausto D. 20291.1.1 ity of 3.412.2.7 [place] .3.040221 MD Zuñiga8 [facility] 2022-01-02 2022-01-02 Ancillary MJ See, 1.2.840.1 [id number] 342 [id number] Univers 22:35:00 22:40:00 Procedure Fausto D. 03278.1.1 ity of 3.412.2.7 [place] .3.187977 MD Zuñiga8 [facility] 2022-01-02 2022-01-02 Ancillary Opal, 1.2.840.1 [id number] 471 [id number] Univers 22:35:00 22:40:00 Procedure Fausto Veras 11297.1.1 ity of 3.412.2.7 [place] .3.891096 MD Zuñiga8 [facility] 2022-01-02 2022-01-02 Ancillary MJ See, 1.2.840.1 [id number] 500 [id number] Univers 22:30:00 22:35:00 Procedure Fausto Veras 84885.1.1 ity of 3.412.2.7 [place] .3.597941 MD Zuñiga8 [facility] 2022-01-02 2022-01-02 Ancillary Opal, 1.2.840.1 [id number] 724 [id number] Univers 22:30:00 22:35:00 Procedure Fausto Veras 63412.1.1 ity of 3.412.2.7 [place] .3.676564 .8 [facility] 2022-01-01 2022-01-01 Infusion Rozina Mares 1.2.840.1 [id number] 1 [id number] Univers 13:15:00 15:15:00 89845.1.1 ity of 3.412.2.7 [place] .3.492252 MD Zuñiga8 [facility] 2022-01-01 2022-01-01 Infusion Rozina Soto 1.2.840.1 [id number] 1 [id number] Univers 13:15:00 15:15:00 71963.1.1 ity of 3.412.2.7 [place] .3.985871 MD Zuñiga8 [facility] 2022-01-01 2022-01-01 Outpatient ROZINA [facility] [id number] 12:16:58 12:26:08 [facility] 2022-01-01 2022-01-01 Emergency [facility] [id number] Univers 11:49:14 11:50:00 ity of [facility] 2022-01-01 2022-01-01 Rozina Hernandez 1.2.840.1 [id number] 10 [id number] Univers 00:00:00 00:00:00 Only 07882.1.1 ity of 3.412.2.7 [place] .3.719019 MD Squires [facility] 2022-01-01 2022-01-01 Orders Ede 1.2.840.1 [id number] 10 [id number] Univers 00:00:00 00:00:00 Only Amira tavarez 30471.1.1 ity of 3.412.2.7 [place] .3.153671 MD Zuñiga8 [facility] 2022-01-01 2022-01-01 Travel 1.2.840.1 1.2.244.044 7959 [id number] Univers 00:00:00 00:00:00 95968.1.1 350.1.13.41 ity of 3.412.2.7 2.2.7.3.698 [place] .3.103201 08Dudley.8 MD Squires [facility] 2022-01-01 2022-01-01 Rozina Hernandez 1.2.840.1 [id number] 10 [id number] Univers 00:00:00 00:00:00 Only 85528.1.1 ity of 3.412.2.7 [place] .3.114824 MD Squires [facility] 2022-01-01 2022-01-01 Orders Ede 1.2.840.1 [id number] 10 [id number] Univers 00:00:00 00:00:00 Only Amira tavarez 35737.1.1 ity of 3.412.2.7 [place] .3.145741 MD Squires [facility] 2022-01-01 2022-01-01 Travel 1.2.840.1 1.2.814.809 5400 135986 Univers 00:00:00 00:00:00 39831.1.1 350.1.13.41 ity of 3.412.2.7 2.2.7.3.698 [place] .3.732180 084.8 MD Zuñiga8 [facility] 2021-12-31 2021-12-31 Orders Chrystal-Iheme 1.2.840.1 [id number] 10 [id number] Univers 00:00:00 00:00:00 Only , Nuzhat 77507.1.1 ity of 3.412.2.7 [place] .3.380842 MD Zuñiga8 [facility] 2021-12-31 2021-12-31 Rozina Hernandez 1.2.840.1 [id number] 10 [id number] Univers 00:00:00 00:00:00 Only 55240.1.1 ity of 3.412.2.7 [place] .3.301147 MD Zuñiga8 [facility] 2021-12-31 2021-12-31 Orders Chrystal-Iheme 1.2.840.1 [id number] 10 [id number] Univers 00:00:00 00:00:00 Only , Nuzhat 03902.1.1 ity of 3.412.2.7 [place] .3.885449 MD Zuñiga8 [facility] 2021-12-31 2021-12-31 Rozina Hernandez 1.2.840.1 [id number] 10 [id number] Univers 00:00:00 00:00:00 Only 84778.1.1 ity of 3.412.2.7 [place] .3.661072 MD Squires [facility] 2021-12-25 2021-12-25 Infusion EL Rozina Soto 1.2.840.1 [id number] 1 [id number] Univers 13:15:00 16:24:19 64334.1.1 ity of 3.412.2.7 [place] .3.065137 MD Squires [facility] 2021-12-25 2021-12-25 Rozina Orozco 1.2.840.1 [id number] 1 [id number] Univers 13:15:00 16:24:19 99050.1.1 ity of 3.412.2.7 [place] .3.785026 MD Squires [facility] 2021-12-25 2021-12-25 Outpatient ROZINA [facility] [id number] 12:08:34 12:09:28 [facility] 2021-12-25 2021-12-25 Travel 1.2.840.1 1.2.271.309 0313 [id number] Univers 00:00:00 00:00:00 08484.1.1 350.1.13.41 ity of 3.412.2.7 2.2.7.3.698 [place] .3.820763 084.8 .8 [facility] 2021-12-25 2021-12-25 Travel 1.2.840.1 1.2.455.843 3548 [id number] Univers 00:00:00 00:00:00 83163.1.1 350.1.13.41 ity of 3.412.2.7 2.2.7.3.698 [place] .3.583567 084.8 MD Zuñiga8 [facility] 2021-12-20 2021-12-20 Telephone [place], 1.2.840.1 [id number] 1091 [id number] Univers 00:00:00 00:00:00 Martia A 12884.1.1 ity of 3.412.2.7 [place] .3.027793 MD Squires [facility] 2021-12-20 2021-12-20 Telephone [place], 1.2.840.1 [id number] 1091 [id number] Univers 00:00:00 00:00:00 Martia A 81049.1.1 ity of 3.412.2.7 [place] .3.052548 MD Zuñiga8 [facility] 2021-12-19 2021-12-19 Orders Chrystal-Iheme 1.2.840.1 [id number] 10 [id number] Univers 00:00:00 00:00:00 Only , Nuzhat 28617.1.1 ity of 3.412.2.7 [place] .3.032291 MD Squires [facility] 2021-12-19 2021-12-19 Rozina Hernandez 1.2.840.1 [id number] 10 [id number] Univers 00:00:00 00:00:00 Only 52758.1.1 ity of 3.412.2.7 [place] .3.806122 MD Squires [facility] 2021-12-19 2021-12-19 Orders Chrystal-Iheme 1.2.840.1 [id number] 10 [id number] Univers 00:00:00 00:00:00 Only , Nuzhat 26927.1.1 ity of 3.412.2.7 [place] .3.651267 MD Squires [facility] 2021-12-19 2021-12-19 Rozina Hernandez 1.2.840.1 [id number] 10 [id number] Univers 00:00:00 00:00:00 Only 93077.1.1 ity of 3.412.2.7 [place] .3.883829 MD Squires [facility] 2021-12-18 2021-12-18 Infusion Rozina Mares 1.2.840.1 [id number] 1 [id number] Univers 10:30:00 16:44:47 93451.1.1 ity of 3.412.2.7 [place] .3.337050 MD Squires [facility] 2021-12-18 2021-12-18 Infusion Rozina Soto 1.2.840.1 [id number] 1 [id number] Univers 10:30:00 16:44:47 93355.1.1 ity of 3.412.2.7 [place] .3.095666 MD Squires [facility] 2021-12-18 2021-12-18 Outpatient ROZINA [facility] [id number] 09:42:04 09:45:52 [facility] 2021-12-18 2021-12-18 Rozina Hernandez 1.2.840.1 [id number] 10 [id number] Univers 00:00:00 00:00:00 Only 00053.1.1 ity of 3.412.2.7 [place] .3.372570 MD Squires [facility] 2021-12-18 2021-12-18 Travel 1.2.840.1 1.2.813.633 4398 [id number] Univers 00:00:00 00:00:00 39267.1.1 350.1.13.41 ity of 3.412.2.7 2.2.7.3.698 [place] .3.941140 084.8 MD Squires [facility] 2021-12-18 2021-12-18 [facility] Rozina Soto 1.2.840.1 [id number] 10 [id number] Univers 00:00:00 00:00:00 Only 21827.1.1 ity of 3.412.2.7 [place] .3.596589 MD Squires [facility] 2021-12-18 2021-12-18 Travel 1.2.840.1 1.2.515.365 6730 [id number] Univers 00:00:00 00:00:00 58712.1.1 350.1.13.41 ity of 3.412.2.7 2.2.7.3.698 [place] .3.034057 084.8 MD Squires [facility] 2021-12-16 2021-12-16 [facility] Rozina Mares 1.2.840.1 [id number] 1 [id number] Univers 13:30:00 23:59:00 Encounter Chandra Lucas 72059.1.1 ity of 3.412.2.7 [place] .3.408039 MD Squires [facility] 2021-12-16 2021-12-16 Rozina Garcia 1.2.840.1 [id number] Univers 13:30:00 23:59:00 Encounter Chandra Lucas 18394.1.1 ity of 3.412.2.7 [place] .3.818845 MD Squires [facility] 2021-12-16 2021-12-16 Outpatient MJ MORA MDA MDA [id number] 14:30:36 14:38:20 SABAS atkins 2021-12-16 2021-12-16 [facility], 1.2.840.1 [id number] [id number] Univers 12:00:00 13:29:00 Encounter Sabas Hutton 72399.1.1 i ty of 3.412.2.7 [place] .3.876622 MD Squires [facility] 2021-12-16 2021-12-16 [facility], 1.2.840.1 [id number] [id number] Univers 12:00:00 13:29:00 Encounter Sabas Hutton 42297.1.1 i ty of 3.412.2.7 [place] .3.259120 MD Zuñiga8 [facility] 2021-12-16 2021-12-16 Documentat Phipps, 1.2.840.1 [id number] 10 [id number] Univers 00:00:00 00:00:00 ion Brenda Alvarado 70562.1.1 ity of 3.412.2.7 [place] .3.450883 MD Squires [facility] 2021-12-16 2021-12-16 Travel 1.2.840.1 1.2.804.087 0375 [id number] Univers 00:00:00 00:00:00 94800.1.1 350.1.13.41 ity of 3.412.2.[place].3.698 [place] .3.104443 084.8 MD Squires [facility] 2021-12-16 2021-12-16 Orders Gibran-Roverto 1.2.840.1 [id number] Univers 00:00:00 00:00:00 Only Amira tavarez 08943.1.1 ity of 3.412.2.7 [place] .3.816495 MD Squires [facility] 2021-12-16 2021-12-16 Orders Leary-Roverto 1.2.840.1 [id number] Univers 00:00:00 00:00:00 Only Amira tavarez 64804.1.1 ity of 3.412.2.7 [place] .3.211086 MD Squires [facility] 2021-12-16 2021-12-16 Orders Murali, 1.2.840.1 [id number] Univers 00:00:00 00:00:00 Only Scott 72129.1.1 ity of 3.412.2.7 [place] .3.005642 MD Zuñiga8 [facility] 2021-12-16 2021-12-16 Documentat Phipps, 1.2.840.1 [id number] 10 [id number] Univers 00:00:00 00:00:00 ion Brenda Alvarado 38665.1.1 ity of 3.412.2.7 [place] .3.815446 MD Zuñiga8 [facility] 2021-12-16 2021-12-16 Travel 1.2.840.1 1.2.979.305 7669 [id number] Univers 00:00:00 00:00:00 71586.1.1 350.1.13.41 ity of 3.412.2.7 2.2.7.3.698 [place] .3.009826 084.8 MD Zuñiga8 [facility] 2021-12-16 2021-12-16 Orders Gibran-Roverto 1.2.840.1 [id number] 10 [id number] Univers 00:00:00 00:00:00 Only Amira tavarez 43124.1.1 ity of 3.412.2.7 [place] .3.518765 MD Zuñiga8 [facility] 2021-12-16 2021-12-16 Orders Ede 1.2.840.1 [id number] 10 [id number] Univers 00:00:00 00:00:00 Only Amira tavarez 87377.1.1 ity of 3.412.2.7 [place] .3.163840 MD Zuñiga8 [facility] 2021-12-16 2021-12-16 Jaxson Carrion 1.2.840.1 [id number] Univers 00:00:00 00:00:00 Only Scott 23592.1.1 ity of 3.412.2.7 [place] .3.198551 MD Zuñiga8 [facility] 2021-12-13 2021-12-13 Hospital Fausto Villalba 1.2.840.1 1020 [id number] Univers 15:00:00 23:59:00 Encounter Veronica Mckeon 35962.1.1 ity of 3.412.2.7 [place] .3.064454 MD Zuñiga8 [facility] 2021-12-13 2021-12-13 [facility] Fausto See 1.2.840.1 1020 [id number] Univers 15:00:00 23:59:00 Encounter Veronica Mckeon 36551.1.1 ity of 3.412.2.7 [place] .3.105482 MD Zuñiga8 [facility] 2021-12-13 2021-12-13 Ancillary EL 1.2.840.1 [id number] 1091 [id number] Univers 11:30:00 11:45:00 Procedure 75614.1.1 it y of 3.412.2.7 [place] .3.776744 MD Squires [facility] [place] 2021-12-13 2021-12-13 Ancillary 1.2.840.1 [id number] 1091 [id number] Univers 11:30:00 11:45:00 Procedure 14116.1.1 it y of 3.412.2.7 [place] .3.206264 MD Squires [facility] [place] 2021-12-13 2021-12-13 Ancillary MJ Mera 1.2.840.1 [id number] Univers 09:45:00 11:30:00 Procedure shay, Amira 32231.1.1 ity of 3.412.2.7 [place] .3.030112 MD Squires [facility] [place] 2021-12-13 2021-12-13 Ancillary Girban-Roverto 1.2.840.1 [id number] Univers 09:45:00 11:30:00 Procedure shay, Amira 89058.1.1 ity of 3.412.2.7 [place] .3.902632 MD Squires [facility] 2021-12-13 2021-12-13 Travel 1.2.840.1 1.2.435.274 7276 [id number] Univers 00:00:00 00:00:00 18535.1.1 350.1.13.41 ity of 3.412.2.7 2.[place]7.3.698 [place] .3.961533 084.8 MD Zuñiga8 [facility] 2021-12-13 2021-12-13 Travel 1.2.840.1 1.2.333.693 8145 [id number] Univers 00:00:00 00:00:00 30319.1.1 350.1.13.41 ity of 3.412.2.7 2.[place]7.3.698 [place] .3.472546 084.8 MD Squires [facility] 2021-12-11 2021-12-11 Jaxson Mora, 1.2.840.1 [id number] Univers 00:00:00 00:00:00 Only Sabas Hutton 76523.1.1 ity of 3.412.2.7 [place] .3.052883 MD Zuñiga8 [facility] 2021-12-11 2021-12-11 Jaxson Mora, 1.2.840.1 [id number] Univers 00:00:00 00:00:00 Only Sabas Hutton 38922.1.1 ity of 3.412.2.7 [place] .3.643839 MD Zuñiga8 [facility] 2021-12-10 2021-12-10 Telephone Shanks, 1.2.840.1 [id number] Univers 00:00:00 00:00:00 [place] 83391.1.1 ity of 3.412.2.7 [place] .3.163698 MD Zuñiga8 [facility] 2021-12-10 2021-12-10 Telephone Shanks, 1.2.840.1 [id number] Univers 00:00:00 00:00:00 [place] 17844.1.1 ity of 3.412.2.7 [place] .3.258778 MD Squires [facility] 2021-12-06 2021-12-06 [facility] 1.2.840.1 [id number] 1 [id number] Univers 11:05:00 23:59:00 Encounter shayAmira mccollum 13745.1.1 ity of 3.412.2.7 [place] .3Yogesh428900 MD Zuñiga8 [facility] 2021-12-06 2021-12-06 [facility] 1.2.840.1 [id number] 1 [id number] Univers 11:05:00 23:59:00 Encounter shayAmira mccollum 53341.1.1 ity of 3.412.2.7 [place] .3Yogesh847371 MD Zuñiga8 [facility] 2021-12-06 2021-12-06 Office EL Chrystal-eme 1.2.840.1 [id number] Univers 14:00:00 16:01:44 Visit , Nuzhat 07935.1.1 ity of 3.412.2.7 [place] .3Yogesh868959 MD Zuñiga8 [facility] 2021-12-06 2021-12-06 Office Chrystal-Iheme 1.2.840.1 [id number] Univers 14:00:00 16:01:44 Visit , Nuzhat 07322.1.1 ity of 3.412.2.7 [place] .3Yogesh839742 MD Zuñiga8 [facility] 2021-12-06 2021-12-06 [facility].840.1 [id number] Univers 10:30:00 11:00:00 Procedure shay, Amira 03279.1.1 ity of 3.412.2.7 [place] .3.837033 MD Zuñiga8 [facility] 2021-12-06 2021-12-06 Ancillary Leary-Roverto 1.2.840.1 [id number] Univers 10:30:00 11:00:00 Procedure shay, Amira 36285.1.1 ity of 3.412.2.7 [place] .3.598327 MD Zuñiga8 [facility] 2021-12-06 2021-12-06 Ancillary EL Leary-Rovreto 1.2.840.1 [id number] Univers 08:00:00 08:30:00 Procedure shay, Amira 91316.1.1 ity of 3.412.2.7 [place] .3.700913 MD Zuñiga8 [facility] 2021-12-06 2021-12-06 Ancillary Leary-Roverto 1.2.840.1 [id number] Univers 08:00:00 08:30:00 Procedure shay, Amira 20689.1.1 ity of 3.412.2.7 [place] .3.712140 MD Zuñiga8 [facility] 2021-12-06 2021-12-06 Orders Chrystal-Iheme 1.2.840.1 [id number] 10 [id number] Univers 00:00:00 00:00:00 Only , Nuzhat 24230.1.1 ity of 3.412.2.7 [place] .3.028737 MD Zuñiga8 [facility] 2021-12-06 2021-12-06 Orders Leary-Roverto 1.2.840.1 [id number] Univers 00:00:00 00:00:00 Only shay, Amira 78678.1.1 ity of 3.412.2.7 [place] .3.537781 MD Zuñiga8 [facility] 2021-12-06 2021-12-06 Travel 1.2.840.1 1.2.757.286 3837 [id number] Univers 00:00:00 00:00:00 75714.1.1 350.1.13.41 ity of 3.412.2.7 [place].7.3.698 [place].5138[place] 084.8 MD Zuñiga8 [facility] 2021-12-06 2021-12-06 Orders Chrystal-Iheme 1.2.840.1 [id number] Univers 00:00:00 00:00:00 Only , Nuzhat 58352.1.1 ity of 3.412.2.7 [place] .3.414867 MD Zuñiga8 [facility] 2021-12-06 2021-12-06 Orders Leary-Roverto 1.2.840.1 [id number] 10 [id number] Univers 00:00:00 00:00:00 Only Sunshine tavarezsy 07293.1.1 ity of 3.412.2.7 [place] .3.965350 MD Zuñiga8 [facility] 2021-12-06 2021-12-06 Travel 1.2.840.1 1.2.930.993 [id number] [id number] Univers 00:00:00 00:00:00 86332.1.1 350.1.13.41 ity of 3.412.2.7 [place].3.698 [place]3.625[place] 084.8 MD Zuñiga8 [facility] 2021-12-04 2021-12-04 Orders Leary-Roverto 1.2.840.1 [id number] 10 [id number] Univers 00:00:00 00:00:00 Only Sunshine tavarezsy 80286.1.1 ity of 3.412.2.7 [place] .3.400060 MD Squires [facility] 2021-12-04 2021-12-04 Orders Leary-Roverto 1.2.840.1 [id number] 10 [id number] Univers 00:00:00 00:00:00 Only shay Amira 17225.1.1 ity of 3.412.2.7 [place] .3.725347 MD Zuñiga8 [facility] 2021-11-26 2021-11-26 Orders Leary-Roverto 1.2.840.1 [id number] 10 [id number] Univers 00:00:00 00:00:00 Only shay Amira 58278.1.1 ity of 3.412.2.7 [place] .3.131086 MD Zuñiga8 [facility] 2021-11-26 2021-11-26 Telephone Refinetti, 1.2.840.1 [id number] 1 [id number] Univers 00:00:00 00:00:00 Porter Guerrero 49994.1.1 it y of [place] 3.412.2.7 [place] .3.078818 MD Zuñiga8 [facility] 2021-11-26 2021-11-26 Orders Leary-Roverto 1.2.840.1 [id number] 10 [id number] Univers 00:00:00 00:00:00 Only Sunshine tavarezsy 29934.1.1 ity of 3.412.2.7 [place] .3.418092 MD Zuñiga8 [facility] 2021-11-26 2021-11-26 Orders Leary-Roverto 1.2.840.1 [id number] 10 [id number] Univers 00:00:00 00:00:00 Only Amira tavarez 85631.1.1 ity of 3.412.2.7 [place] .3.174242 MD Zuñiga8 [facility] 2021-11-26 2021-11-26 Telephone Refinetti, 1.2.840.1 [id number] 1 [id number] Univers 00:00:00 00:00:00 Porter Guerrero 95543.1.1 it y of [place] 3.412.2.7 [place] .3.710365 MD Zuñiga8 [facility] 2021-11-26 2021-11-26 Orders Leary-Roverto 1.2.840.1 [id number] 10 [id number] Univers 00:00:00 00:00:00 Only Sunshine tavarezsy 06560.1.1 ity of 3.412.2.7 [place] .3.859439 MD Zuñiga8 [facility] [place] 2021-11-22 2021-11-22 Office EL Refinetti, 1.2.840.1 [id number] [id number] Univers 10:00:00 12:10:29 Visit Porter Guerrero 67890.1.1 it y of [place] 3.412.2.7 [place] .3.861831 MD Zuñiga8 [facility] [place] 2021-11-22 2021-11-22 Office Refinetti, 1.2.840.1 [id number] Univers 10:00:00 12:10:29 Visit Kyra 56814.1.1 it y of [place] 3.412.2.7 [place] .3.927188 MD Squires [facility] 2021-11-22 2021-11-22 Travel 1.2.840.1 1.2.929.486 0773 [id number] Univers 00:00:00 00:00:00 79068.1.1 350.1.13.41 ity of 3.412.2.7 [place]7.3.698 [place] .3.937305 084.8 MD Zuñiga8 [facility] 2021-11-22 2021-11-22 Travel 1.2.840.1 1.2.115.206 4393 [id number] Univers 00:00:00 00:00:00 45179.1.1 350.1.13.41 ity of 3.412.2.7 [place]7.3.698 [place] .3.765[place] 084.Rubia Squires [facility] 2021-11-20 2021-11-20 Ancillary MJ See, 1.2.840.1 [id number] Univers 20:05:00 20:10:00 Procedure Fausto Veras 37545.1.1 ity of 3.412.2.7 [place] .3.267177 MD Squires [facility] 2021-11-20 2021-11-20 Ancillary Opal 1.2.840.1 [id number] Univers 20:05:00 20:10:00 Procedure Fausto Veras 89506.1.1 ity of 3.412.2.7 [place] .3.181382 MD Squires [facility] 2021-11-20 2021-11-20 Ancillary MJ See, 1.2.840.1 [id number] Univers 20:00:00 20:05:00 Procedure Fausto Veras 42669.1.1 ity of 3.412.2.7 [place] .3.008551 .8 [facility] 2021-11-20 2021-11-20 Ancillary Opal, 1.2.840.1 [id number] [id number] Univers 20:00:00 20:05:00 Procedure Fausto Veras 55303.1.1 ity of 3.412.2.7 [place] .3.543909 .8 [facility] 2021-11-20 2021-11-20 Ancillary MJ 1.2.840.1 [id number] Univers 17:35:00 17:50:00 Procedure 73776.1.1 it y of 3.412.2.7 [place] .3.644433 MD Zuñiga8 [facility] 2021-11-20 2021-11-20 Ancillary 1.2.840.1 [id number] Univers 17:35:00 17:50:00 Procedure 00970.1.1 it y of 3.412.2.7 [place] .3.661949 .8 [facility] 2021-11-20 2021-11-20 Ancillary MJ Murry, 1.2.840.1 [id number] [id number] Univers 16:15:00 17:15:00 Procedure Elliott 45526.1.1 it y of 3.412.2.7 [place] .3.820499 .8 [facility] 2021-11-20 2021-11-20 Ancillary Jeanmarie 1.2.840.1 [id number] Univers 16:15:00 17:15:00 Procedure Elliott 42452.1.1 it y of 3.412.2.7 [place] .3.409885 MD Zuñiga8 [facility] 2021-11-20 2021-11-20 Ancillary MJ Murry, 1.2.840.1 [id number] Univers 13:30:00 15:00:00 Procedure Elliott 17698.1.1 it y of 3.412.2.7 [place] .3.283136 MD Zuñiga8 [facility] 2021-11-20 2021-11-20 Ancillary Jeanmarie 1.2.840.1 [id number] [id number] Univers 13:30:00 15:00:00 Procedure Elliott 37685.1.1 it y of 3.412.2.7 [place] .3.055802 MD Squires [facility] 2021-11-20 2021-11-20 Travel 1.2.840.1 1.2.001.603 [id number] Univers 00:00:00 00:00:00 81256.1.1 350.1.13.41 ity of 3.412.2.7 2.[place].7.3.698 [place] .3.618740 084.8 MD Squires [facility] 2021-11-20 2021-11-20 Travel 1.2.840.1 1.2.551.615 [id number] Univers 00:00:00 00:00:00 89062.1.1 350.1.13.41 ity of 3.412.2.7 2.2.7.3.698 [place] .3.811631 084.8 MD Squires [facility] 2021-11-14 2021-11-14 Jaxson Murry 1.2.840.1 [id number] Univers 00:00:00 00:00:00 Only Elliott 29017.1.1 ity of 3.412.2.7 [place] .3.703500 MD Squires [facility] 2021-11-14 2021-11-14 Jaxson Murry 1.2.840.1 [id number] Univers 00:00:00 00:00:00 Only Elliott 80340.1.1 ity of 3.412.2.7 [place] .3.043871 MD Squires [facility] 2021-04-29 2021-04-29 Office Demetrio Fiore 1.2.840.1 [id number] Univers 11:30:00 12:00:00 Visit Elliott Murry 31406.1.1 ity of 3.412.2.7 [place] .3.447464 MD Squires [facility] 2021-04-29 2021-04-29 Travel 1.2.840.1 1.2.969.491 [id number] Univers 00:00:00 00:00:00 85969.1.1 350.1.13.41 ity of 3.412.2.7 2.[place].7.3.698 [place] .3.940995 084.8 .8 [facility] 2021-04-29 2021-04-29 Telephone Rachel, 1.2.840.1 [id number] [facility] 00:00:00 00:00:00 Veronica Justice 45260.1.1 it y of 3.412.2.7 [place] .3.626785 MD Zuñiga8 [facility] 2021-04-22 2021-04-22 Outpatient MJ GOOD MDA MDA [id number] 00:00:00 00:00:00 DEMETRIO atkins 2020-04-16 2020-04-16 Outpatient MJ SEE MDA MDA [id number] 11:39:48 12:59:07 FAUSTO atkins 2020-04-13 2020-04-13 Outpatient MJ SEE MDA MDA [id number] 00:00:00 00:00:00 FAUSTO atkins 2020-04-06 2020-04-06 Outpatient MJ SEE MDA MDA [id number] 00:00:00 00:00:00 FAUSTO atkins Results Test Description Test Time Test Comments Results Result Comments Source Hemoglobin A1c 2022-08-29 19:36:32 Test Item Value Reference Range Interpretation Comme nts A1C (test code = 4548-4) 7.0 % 4.3-5.6 H HbA 1c values >=6.5% are diagnostic of diabetes joie litus.Diagnosis should be confi rmed by repeat testing.Therape uti Action suggested: >8.0 % HbA1c; Goal oftherapy: <7.0 % HbA1c Lab Interpretation (test code = Abnormal 82958-7) [facility] [place] [id number] 19:27:05 Test Item Value Reference Range Interpretation Comments Sodium Lvl (test code = 139 See_Comment [Au tomated message] The 2951-2) system which ge nerated this result tra nsmitted reference range : 136 - 145 mEq/L. The reference range was not u sed to interpret this result as normal/abnormal . Potassium Lvl (test 4.0 See_Comment [Automa anny message] The code = 2823-3) system which generated this result tra nsmitted reference range : 3.5 - 5.1 mEq/L. The reference range was not u sed to interpret this result as normal/abnormal . Chloride (test code = 104 See_Comment [Auto mated message] The ) system which ge nerated this result tra nsmitted reference range : 98 - 107 mEq/L. The refe rence range was not u sed to interpret this result as normal/abnormal . CO2 (test code = 24 See_Comment [Automated message] The 2028-05) system which ge nerated this result tra nsmitted reference range : 22 - 29 mEq/L. The refe rence range was not u sed to interpret this result as normal/abnormal . Anion Gap (test code = 11 See_Comment [Aut omated message] The ) system which ge nerated this result tra nsmitted reference range : 4 - 14 mEq/L. The refe rence range was not u sed to interpret this result as normal/abnormal . [facility] [place]Fractionated [id number] 19:27:04 Test Item Value Reference Range Interpretation Comments Bili Total (test 0.3 mg/dL See_Comment Indocyanine Green (ICG) code = 1974-10) may cause fal sely elevated biliru bin results. Total and direct bilirubin must not be measured from s amples containing indo cyanine green. False el evation of total bilirubin can be seen in patient s with IgG concentrations above 28 g/L. [Automated message] The system whic h generated this result transmitted ref erence range: <=1.2. T he reference range was not used to interpr et this result as normal/abnormal . Bili Direct (test See_Comment Indocyanin e Green (ICG) code = 1968-03) may cause fal sely elevated biliru bin results. Total and direct bilirubin must not be measured from s amples containing indo cyanine green. [Automat ed message] The sy stem which generated this result transmitted ref erence range: <=0.3. T he reference range was not used to interpr et this result as normal/abnormal . Bili Indirect (test See Note 0.0-0.9 Unable t o calculate code = 1970-) Indirect Bili abebe result due to some par ameters are outside rep ortable range [facility] HospitalCal[facility] [id number] 19:27:02 Test Item Value Reference Range Interpretation Comments Calcium Lvl (test code = 82186-9) 10.2 mg/dL 8.4-10.2 [facility] HospitalAlbumin [id number] 19:27:01 Test Item Value Reference Range Interpretation Comments Albumin Lvl (test code 4.4 See_Comment [Aut omated message] The = 1751-03) system which ge nerated this result tra nsmitted reference range : 3.5 - 5.2 gm/dL. The refe rence range was not used to interpret this result as normal/abnormal . [facility] HospitalAspartate Aminotransferase 2022-08-29 19:27:00 Test Item Value Reference Range Interpretation Comments AST (test code = 15 U/L See_Comment [Automated message] The 1920-04) system which ge nerated this result transmit anny reference range : <=32. The reference range was not used to interpr et this result as karlie l/abnormal. [facility] HospitalGlucose [id number] 19:26:58 Test Item Value Reference Range Interpretation Comments Glucose Level (test code 143 mg/dL 70-99 H Eff ective 04/09/16, = 2345-7) the glucose reference inter vals have been updat ed based on [place] an Diabetes Associ ation guidelines (Standards of Medical Care in Diabetes 2016. Diabetes Care 2 016; 39: S13-S22).Fa sting blood glucose:Normal: 70-99 mg/dLImpa ired fasting glucose (increased risk for diabetes or pre-diabetes): 100-125 mg/dLDiabetes mellitus: >/=12 6 mg/dL Random bl ood glucose:Normal: 70-199 mg/dLNot e: Random glucose >100 mg/dL is associ ated with increased risk for diabetes Lab Interpretation (test Abnormal code = 71907-9) [facility] HospitalGlomerular Filtration Rate 2022-08-29 19:26:56 Test Item Value Reference Range Interpretation Comments eGFR (test code = 70 See_Comment The eGFRcr is calculated with 53789) the 2020 CKD-EP I creatinine equation using creatinine, patient's age, and sex for adults 18 years of age and older. Other fa ctors, especially musc le mass, may affect accuracy and need to be considered.A ccording to the Kidney Dise ase: Improving Global Outcomes (KDIGO) CKD Work Group 2012 Clinical Practice Guidel ine, chronic kidney disease (CKD) is defined as the abnormalities of kidney struc ture or function, prese nt for more than 3 months, with implications fo r health. CKD should be class ified by cause, GFR wilmer gory, and albuminuria cat egory. KDIGO guidelines prov mesfin the following GFR c ategoriesStage Description GFR mL/min/1.73 m2G1* Normal or high >= 90G2* Mildly decrease d 60-89G3a Mildly to moder ately decreased 45-59 G3b Moderately to severely dec reased 30-44G4 Severely decrea sed 15-29G5 Kidney failure <15*In the absence of evid ence of kidney damage, neither G1 nor G2 fulfill criteri a for CKD. [Automated mess age] The system which [employer] nerated this result transmit anny reference range: >=60 mL/ min/1.73 sq. m. The referenc e range was not used to int erpret this result as karlie l/abnormal. [facility] HospitalTotal [id number] 19:26:55 Test Item Value Reference Range Interpretation Comments Total Protein (test code = 2885-2) 7.0 g/dL 6.4-8.3 [facility] HospitalAlkaline Mqufsufrnot0399-43-19 19:26:54 Test Item Value Reference Range Interpretation Comments Alk Phos (test code = 6768-6) 54 U/L 35-104 [facility] HospitalALT2022-12-16 19:26:53 Test Item Value Reference Range Interpretation Comments ALT (test code = 13 U/L See_Comment [Automated message] The 17410-20) system which [employer] nerated this result transmit anny reference range : <=33. The reference range was not used to interpr et this result as karlie l/abnormal. [facility].Serum Cjztbwmqbv4338-83-80 19:26:52 Test Item Value Reference Range Interpretation Comments Creatinine (test code = 2160-0) 0.83 mg/dL 0.51-0.95 [facility] HospitalBUN2022-12-16 19:26:51 Test Item Value Reference Range Interpretation Comments BUN (test code = 3094-0) 26 mg/dL 6-23 H Lab Interpretation (test code = Abnormal 84727-9) [facility] HospitalDifferential2022-12-16 18:43:47 Test Item Value Reference Range Interpretation Comments Neutrophil % (test code = 72.6 % 42.0-66.0 H 770-8) Lymphocyte % (test code = 13.5 % 24.0-44.0 L 736-9) Monocyte % (test code = 11.6 % 2.0-7.0 H 5905-5) Eosinophil % (test code = 0.5 % 1.0-4.0 L 713-8) Basophil % (test code = 1.3 % 0.0-1.0 H 706-2) IGRE % (test code = 0.5 % 0.0-0.4 H IGRE % c ount 75991-2) includes Metamyelocytes, Myelocytes, and Promyelocytes. Neutrophil Abs (test code 4.40 K/uL 1.70-7.30 = 751-8) Lymphocyte Abs (test code 0.82 K/uL 1.00-4.80 L = 731-0) Monocyte Abs (test code = 0.70 K/uL 0.08-0.70 742-7) Eosinophil Abs (test code 0.03 K/uL 0.04-0.40 L = 711-2) Basophil Abs (test code = 0.08 K/uL 0.00-0.10 704-7) IG Abs (test code = 0.03 K/uL 0.00-0.04 68892-6) Lab Interpretation (test Abnormal code = 91535-8) [facility].[id number] 18:43:38 Test Item Value Reference Range Interpretation Comments WBC (test code = 6.1 K/uL 4.0-11.0 6690-2) RBC (test code = 789-8) 3.54 See_Comment L [Au tomated message] The system [employer] generated this result transmitted ref erence range: 4.00 - 5 .50 M/uL. The refer ence range was not u sed to interpret this result as normal/abnor mal. Hgb (test code = 718-7) 10.9 See_Comment L [Au tomated message] The system [employer] generated this result transmitted ref erence range: 12.0 - 1 6.0 gm/dL. The refe rence range was not u sed to interpret this result as normal/abnor mal. Hct (test code = 33.4 % 37.0-47.0 L 4544-3) MCV (test code = 787-2) 94 fL 82-98 MCH (test code = 785-6) 30.8 pg 27.0-31.0 MCHC (test code = 32.6 See_Comment [Automate d message] 786-4) The system [employer] generated this result transmitted ref erence range: 31.0 - 3 6.0 gm/dL. The refe rence range was not u sed to interpret this result as normal/abnor mal. RDW-SD (test code = 67.0 fL 35.1-46.3 H 11986-0) RDW-CV (test code = 19.3 % 12.0-15.5 H 788-0) Platelet count (test 366 K/uL 140-440 code = 777-3) MPV (test code = 9.6 fL 4.0-10.4 29279-4) INRBC (test code = 0.0 % See_Comment The INRBC (instrument 95391-1) NRBC) value ref lects the enumeration of nucleated red b lood cells contained in a 200uL sampleof whole blood analyzed by the instrument. Thi s value maydiffer from the NRBC value repo rted in a manual differential,wh ich is based on a 100 cell differential. [Automated mess age] The system [employer] generated this result transmitted ref erence range: <=0.0. T he reference range was not used to int erpret this result as normal/abnormal . Lab Interpretation Abnormal (test code = 24116-5) [facility] HospitalUS Breast Complete [id number] 18:19:21 Test Item Value Reference Range Interpretation Comments Radiology Study observation (narrative) (test code = 08190-9) IMP (test code = IMP) 1. Relatively stable appearance of the two malignant right breast massescompared with the 03/2022 ultrasound. Please see above for details. 2. Improved right axillary adenopathy. BI-RADS Category 6:Known Biopsy Proven Malignancy PXN (test code = PXN) Miah Louis MD - 08/19/2022 EXAMINATIONS:RIG HT WHOLE-BREAST ULTRASOUND, COMPLETE.ULTRASOUND CHEST. CLINICAL INDICATION:Breast cancer undergoing neoadjuvant therapy. TECHNIQUE:Real-time sonographic imaging of the right breast (including all 4 quadrants andretroareolar region) was performed. Real-time sonographic imaging of the rightregional suyapa basins including ultrasound of the chest/mediastinum to evaluatethe axillary (level I, II, III) and internal mammary regions was performed. COMPARISON:The present examination has been compared to prior imaging studies performed [facility] on 04/11/2022, and at [facility] on 11/20/2021. FINDINGS:Right Breast: The malignant mass at 10:00, 7 cmfn is now 1.1 x 0.8 x 0.6 cm andwas 1.1 x 0.9 x 0.7 cm on the 03/2022 ultrasound and 1.8 x 1.3 x 1.0 cm on the11/2021 ultrasound. The malignant mass at 11:00, 1 cmfn is now 2.8 x 1.8 x 0.7 cm and 3.0 x 2.1 x0.6 cm on the 03/2022 ultrasound and 3.0 x 2.6 x 0.8 cm on the 11/2021ultrasound. The benign subcentimeter papillary lesion at 9:00, 4 cmfn is again noted. Thereare no new findings. Right [place] Basins: All visualized lymph nodes at levels 1-2 are nowmorphologically normal (two level one nodes were mildly prominent on the priorexam). The index level one node with a clip is again visualized. Only one of thetwo previously seen, abnormal level 3 axillary nodes remains visualized, nowmeasuring 0.6 x 0.4 x 0.3 cm (0.8 x 0.4 x 0.3 cm on the 03/2022 ultrasound and1.7 x 0.6 x 0.5 cm on the 11/2021 ultrasound). No other possible adenopathy isseen. I notified the patient of the results and their significance at the completionof today's imaging. IMPRESSION:1. Relatively stable appearance of the two malignant right breast massescompared with the 03/2022 ultrasound. Please see above for details. 2. Improved right axillary adenopathy. BI-RADS Category 6:Known Biopsy Proven Malignancy Lab Interpretation Abnormal (test code = 09126-6) [facility] HospitalUS Chest for Breast Ultrasound (Add-on Only)2022-08-19 18:19:21 Test Item Value Reference Range Interpretation Comments Radiology Study observation (narrative) (test code = 50487-8) IMP (test code = IMP) 1. Relatively stable appearance of the two malignant right breast massescompared with the 03/2022 ultrasound. Please see above for details. 2. Improved right axillary adenopathy. BI-RADS Category 6:Known Biopsy Proven Malignancy PXN (test code = PXN) Miah Louis MD - 08/19/2022 EXAMINATIONS:RIG HT WHOLE-BREAST ULTRASOUND, COMPLETE.ULTRASOUND CHEST. CLINICAL INDICATION:Breast cancer undergoing neoadjuvant therapy. TECHNIQUE:Real-time sonographic imaging of the right breast (including all 4 quadrants andretroareolar region) was performed. Real-time sonographic imaging of the rightregional suyapa basins including ultrasound of the chest/mediastinum to evaluatethe axillary (level I, II, III) and internal mammary regions was performed. COMPARISON:The present examination has been compared to prior imaging studies performed [facility] on 04/11/2022, and at [facility] on 11/20/2021. FINDINGS:Right Breast: The malignant mass at 10:00, 7 cmfn is now 1.1 x 0.8 x 0.6 cm andwas 1.1 x 0.9 x 0.7 cm on the 03/2022 ultrasound and 1.8 x 1.3 x 1.0 cm on the11/2021 ultrasound. The malignant mass at 11:00, 1 cmfn is now 2.8 x 1.8 x 0.7 cm and 3.0 x 2.1 x0.6 cm on the 03/2022 ultrasound and 3.0 x 2.6 x 0.8 cm on the 11/2021ultrasound. The benign subcentimeter papillary lesion at 9:00, 4 cmfn is again noted. Thereare no new findings. Right [place] Basins: All visualized lymph nodes at levels 1-2 are nowmorphologically normal (two level one nodes were mildly prominent on the priorexam). The index level one node with a clip is again visualized. Only one of thetwo previously seen, abnormal level 3 axillary nodes remains visualized, nowmeasuring 0.6 x 0.4 x 0.3 cm (0.8 x 0.4 x 0.3 cm on the 03/2022 ultrasound and1.7 x 0.6 x 0.5 cm on the 11/2021 ultrasound). No other possible adenopathy isseen. I notified the patient of the results and their significance at the completionof today's imaging. IMPRESSION:1. Relatively stable appearance of the two malignant right breast massescompared with the 03/2022 ultrasound. Please see above for details. 2. Improved right axillary adenopathy. BI-RADS Category 6:Known Biopsy Proven Malignancy Lab Interpretation Abnormal (test code = 97027-4) [facility] HospitalMammography Digital Diagnostic Right with [id number] 18:08:09 Test Item Value Reference Range Interpretation Comments Radiology Study observation (narrative) (test code = 11120-7) IMP (test code = IMP) Favorable interval response to therapy, detailed above. BI-RADS Category 6:Known Biopsy Proven Malignancy PXN (test code = PXN) Miah Louis MD - 08/19/2022 CLINICAL INDICATION:Right breast cancer undergoing neoadjuvant therapy. MAMMO DIGITAL DIAGNOSTIC RIGHT W TOMODigital Mammogram evaluated with Computer Aided Detection (CAD). Tomosynthesiswas performed. COMPARISON:The present examination has been compared to a prior imaging study performed [facility] on 11/20/2021. FINDINGS:The breast is heterogeneously dense, which may obscure small masses. The wing clip-containing malignant mass at 10:00 is now 1.1 x 0.8 x 0.7 cm andwas 1.5 x 1.2 x 1.2 cm on the 11/2021 mammogram. The heart clip-containing malignant mass at 11:00 is now 0.9 x 0.8 x 0.5 cm andwas 1.8 x 1.4 x 1.3 cm on the 11/2021 mammogram. The coil-clip containing papillary lesion at 9:00 is not well seenmammographically. There are no new findings. I notified the patient of the results and theirsignificance at the completion of today's imaging. IMPRESSION:Favorable interval response to therapy, detailed above. BI-RADS Category 6:Known Biopsy Proven Malignancy Lab Interpretation Abnormal (test code = 87867-4) [facility] [id number] 16:44:36 Test Item Value Reference Range Interpretation Comments POC Crea (test 0.6 mg/dL 0.6-1.3 Medications, code = 51579-7) especially h ydroxyurea or supplements, such as ascorbate, c an interfere with test results causing a falsely and significantly h igher result than exp ected. If a problem is suspected with a patient's resul t, a sample should b e sent to the laborato ry for confirmatory te sting. Method descript ion: The i-STAT is a n analyzer used f or in vitro quantific ation of various anal ytes in whole blood. Th e device uses a s shawn disposable cart ridge which contains microfabricated sensors, a yolis bration solution, fluid ics system, and a w aste chamber. Each t est cartridge conta ins chemically sens itive biosensors on a silicon chip th at are configured to p erform specific tests. The microfabricated sensors measure analyte concent ration by an electroch emical assay. POC EGFR (test 90 See_Comment The eGFRcr is code = 08528) calculated wit h the 2020 CKD-EPI creatinine equa tion using creatinin e, patient's age, and sex for adults 18 y ears of age and older. Other factors, especi ally muscle mass, ma y affect accuracy and need to be considered.Acco rding to the Kidney D isease: Improving Globa l Outcomes (KDIGO ) CKD Work Group 2012 Clinical Practi ce Guideline, spring setter lars kidney disease (CKD) is defined as t he abnormalities o f kidney structur e or function, prese nt for more than 3 mon ths, with implicatio ns for health. CKD lolly uld be classified by c ause, GFR category, a nd albuminuria cat egory. KDIGO guideline s provide the fol lowing GFR categoriesS tage Description GFR mL/min/1.73 m2G 1* Normal or high >= 90G2* Mildly de creased 60-89G3a Mildly to moderately decr eased 45-59G3b Modera tely to severely decrea sed 30-44G4 Severel y decreased 15-29 G5 Kidney failure <15*In the absence of evidence of kid osmin damage, neither G1 nor G2 fulfill crit eria for CKD. [Autom ated message] The sy stem which generated this result transmit anny reference range : >=60 mL/min/1.73 sq. m. The reference range was not used to int erpret this result as normal/abnormal . POC Clean Dev Yes (test code = 6672) Performing Lab [facility] CI TY (test code = [facility] delmer RAMIREZ [address]) [facility] ,[address], [place] [address], Point of Care Prosthetic Dentist: Jeri Soto MD [facility] [id number] 16:44:36 Test Item Value Reference Range Interpretation Comments POC Crea (test 0.6 mg/dL 0.6-1.3 Medications, code = 18161-4) especially h ydroxyurea or supplements, such as ascorbate, c an interfere with test results causing a falsely and significantly h igher result than exp ected. If a problem is suspected with a patient's resul t, a sample should b e sent to the laborato ry for confirmatory te sting. Method descript ion: The i-STAT is a n analyzer used f or in vitro quantific ation of various anal ytes in whole blood. Th e device uses a s shawn disposable cart ridge which contains microfabricated sensors, a yolis bration solution, fluid ics system, and a w aste chamber. Each t est cartridge conta ins chemically sens itive biosensors on a silicon chip at are configured to p erform specific tests. The microfabricated sensors measure analyte concent ration by an electroch emical assay. POC EGFR (test 90 See_Comment The eGFRcr is code = 80066) calculated wit h the 2020 CKD-EPI creatinine equa tion using creatinin e, patient's age, and sex for adults 18 y ears of age and older. Other factors, especi ally muscle mass, ma y affect accuracy and need to be considered.Acco rding to the Kidney D isease: Improving Globa l Outcomes (KDIGO ) CKD Work Group 2012 Clinical Practi ce Guideline, spring setter lars kidney disease (CKD) is defined as t he abnormalities o f kidney structur e or function, prese nt for more than 3 mon ths, with implicatio ns for health. CKD lolly uld be classified by karen benton, GFR category, a nd albuminuria cat egory. KDIGO guideline s provide the fol lowing GFR categoriesS tage Description GFR mL/min/1.73 m2G 1* Normal or high >= 90G2* Mildly de creased 60-89G3a Mildly to moderately decr eased 45-59G3b Modera tely to severely decrea sed 30-44G4 Severel y decreased 15-29 G5 Kidney failure <15*In the absence of evidence of kid osmin damage, neither G1 nor G2 fulfill crit eria for CKD. [Autom ated message] The sy stem which generated this result transmit anny reference range : >=60 mL/min/1.73 sq. m. The reference range was not used to int erpret this result as normal/abnormal . POC Clean Dev Yes (test code = 6672) Performing Lab [facility] [place] CI TY (test code = [facility] [place] RAMIREZ [address]) [facility] [place] ,[address], [place] [address], Point of Care Prosthetic Dentist: Jeri Soto MD [facility] Chest/Infraclav for Breast Ultrasound (Add-on Only)2022-04-11 15:29:58 Test Item Value Reference Range Interpretation Comments Radiology Study observation (narrative) (test code = 03080-8) IMP (test code = IMP) Interval treatment [...] compared to a prior imaging study performed [facility] on 11/20/2021. Images were obtained [...] examination. Lab Interpretation Abnormal (test code = 90670-2) [facility] [id number] 15:29:58 Test Item Value Reference Range Interpretation Comments Radiology Study observation (narrative) (test code = 85302-0) IMP (test code = IMP) Interval treatment [...] compared to a prior imaging study performed [facility] on 11/20/2021. Images were obtained [...] examination. Lab Interpretation Abnormal (test code = 55698-4) [facility] [place] Chest/Infraclav for Breast Ultrasound (Add-on Only)2022-04-11 15:29:58 Test Item Value Reference Range Interpretation Comments Radiology Study observation (narrative) (test code = 51619-7) IMP (test code = IMP) Interval treatment [...] compared to a prior imaging study performed [facility] on 11/20/2021. Images were obtained [...] examination. Lab Interpretation Abnormal (test code = 72597-1) [facility] Interpretation Antibody Screen [id number] 03:16:57 Test Item Value Reference Range Interpretation Comments TMP Auto Neg At the present ABSC Interp time, patient (test code = plasma shows no ____GENIE ROBIN MD - 8220) evidence of RBC [id number] d by: alloantibodies. MD Jerald SANDS 11785Ricithps D ate/Time: 12.16.2021 22:1 6 PM CDT Transcribed Ronni e/Time: 12.16.2021 22:1 6 PM CDTElectronical ly Signed By: MD Jerald MATUTE [id number] on 2021 22:16 PM [facility] Interpretation Antibody Screen [id number] 03:16:57 Test Item Value Reference Range Interpretation Comments TMP Auto Neg At the present ABSC Interp time, patient (test code = plasma shows no ____MD Jerald BERRY 7535) evidence of RBC 73921Liqvrri d by: alloantibodies. MD Jerald SANDS 62688Zoluxdza D ate/Time: 12.16.2021 22:1 6 PM CDT Transcribed Ronni e/Time: 12.16.2021 22:1 6 PM CDTElectronical ly Signed By: MD Jerald MATUTE on 2021 22:16 PM [facility] Hospital[facility] Interpretation Antibody Screen [id number] 03:16:57 Test Item Value Reference Range Interpretation Comments TMP Auto Neg At the present ABSC Interp time, patient (test code = plasma shows no ____MD Jerald BERRY 7535) evidence of RBC 33342Tsvchma d by: alloantibodies. MD Jerald SANDS 88135Eyxhvceg D ate/Time: 12.16.2021 22:1 6 PM CDT Transcribed Ronni e/Time: 12.16.2021 22:1 6 PM CDTElectronical ly Signed By: MD Jerald MATUTE [id number] on 2021 22:16 PM [facility] HospitalConfirm [id number] 23:01:19 Test Item Value Reference Range Interpretation Comments ABORh Confirm. (test code = 882-1) O NEG [facility] HospitalConfirm [id number] 23:01:19 Test Item Value Reference Range Interpretation Comments ABORh Confirm. (test code = 882-1) O NEG [facility] Hospital[facility] [id number] 23:01:19 Test Item Value Reference Range Interpretation Comments ABORh Confirm. (test code = 882-1) O NEG [facility] HospitalAntibody [id number] 22:32:35 Test Item Value Reference Range Interpretation Comments ABSC. (test code = 890-4) Negative ABSC [facility] HospitalAntibody [id number] 22:32:35 Test Item Value Reference Range Interpretation Comments ABSC. (test code = 890-4) Negative ABSC [facility] HospitalAntibody [id number] 22:32:35 Test Item Value Reference Range Interpretation Comments ABSC. (test code = 890-4) Negative ABSC [facility] HospitalABORh2022-04-04 22:32:34 Test Item Value Reference Range Interpretation Comments ABORh. (test code = 882-1) O NEG [facility] HospitalABORh2022-04-04 22:32:34 Test Item Value Reference Range Interpretation Comments ABORh. (test code = 882-1) O NEG [facility] HospitalABORh2022-04-04 22:32:34 Test Item Value Reference Range Interpretation Comments ABORh. (test code = 882-1) O NEG [facility] HospitalClot Expiration [id number] 22:32:32 Test Item Value Reference Range Interpretation Comments T & S Expiration (test code = 12/19/2021 53) [facility] HospitalClot Expiration [id number] 22:32:32 Test Item Value Reference Range Interpretation Comments T & S Expiration (test code = 12/19/20215317) [facility] HospitalClot Expiration [id number] 22:32:32 Test Item Value Reference Range Interpretation Comments T & S Expiration (test code = 12/19/20215317) [facility] HospitalProthrombin [id number] 18:13:24 Test Item Value Reference Range Interpretation Comments PT (test code 12.5 See_Comment Testing Perfor med = 5902-2) atACB Lab Ambul atory Care Vywa[address] [facility] [place] [address] [Automated mess age] The system whic Pol[employer]ota generated this result transmitted ref erence range: 11.5 - 1 3.9 second(s). The reference range was not used to int erpret this result as normal/abnormal . INR (test code 1.00 0.90-1.10 Testing Perfo rmed = 4721-6) at[facility] Lab Ambul atory Care Gjko[address] [facility] [place] [address] NORMAN (test code This lab cannot be = NORMAN) scheduled at the following locations due to collection/proccess ing restrictions: DI DIAG LAB CTR and CABI DIAG LAB CTR. [facility] HospitalProthrombin [id number] 18:13:24 Test Item Value Reference Range Interpretation Comments PT (test code 12.5 See_Comment Testing Perfor med = 5902-2) [facility] Lab Ambul [facility] CIty[address] [facility] [place] [address] [Automated mess age] The system [employer] Limitedic h generated this result transmitted ref erence range: 11.5 - 1 3.9 second(s). The reference range was not used to int erpret this result as normal/abnormal . INR (test code 1.00 0.90-1.10 Testing Perfo rmed = 6301-6) [facility] Lab Ambul [place] [address] [facility] [place] [address] NORMAN (test code This lab cannot be = NORMAN) scheduled at the following locations due to collection/proccess ing restrictions: DI DIAG LAB CTR and CABI DIAG LAB CTR. [facility] HospitalProthrombin [id number] 18:13:24 Test Item Value Reference Range Interpretation Comments PT (test code 12.5 See_Comment Testing Perfor med = 5902-2) [facility] Lab Ambul [facility] [facility] [place] [address] [Automated mess age] The system [employer] h generated this result transmitted ref erence range: 11.5 - 1 3.9 second(s). The reference range was not used to int erpret this result as normal/abnormal . INR (test code 1.00 0.90-1.10 Testing Perfo rmed = 6301-6) [facility] Lab Ambul [facility] [facility] [address] NORMAN (test code This lab cannot be = NORMAN) scheduled at the following locations due to collection/proccess ing restrictions: DI DIAG LAB CTR and CABI DIAG LAB CTR. [facility] HospitalGlucose, [id number] 18:11:23 Test Item Value Reference Range Interpretation Comments Glucose Random (test 189 mg/dL 70-199 Effecti ve 04/09/16, the code = 2345-7) glucose refer ence intervals have been updated based o n [place] [employer] ramona delines (Standards of edical Care in Diabete s 2016. Diabetes Care 2 016; 39: S13-S22)Fasting blood glucose:Normal: 70-99 mg/dLImpaired f asting glucose (increa sed risk for diabetes or pre-diabetes): 100-125 mg/dLDiabetes m ellitus: >/= 126 mg/dL R andom blood glucose:N ormal: 70-199 mg/dLNot e: Random glucose >100 mg /dL is associated with increased risk for diabetes Testin g Performed at [facility] Lab Clinic Physician Director [facility] [place], [address], [place] [address] [facility] HospitalGlucose, [id number] 18:11:23 Test Item Value Reference Range Interpretation Comments Glucose Random (test 189 mg/dL 70-199 Effecti ve 04/09/16, the code = 2345-7) glucose refer ence intervals have been updated based o n [place] [employer] ramona delines (Standards of edical Care in Diabete s 2016. Diabetes Care 2 016; 39: S13-S22)Fasting blood glucose:Normal: 70-99 mg/dLImpaired f asting glucose (increa sed risk for diabetes or pre-diabetes): 100-125 mg/dLDiabetes m ellitus: >/= 126 mg/dL R andom blood glucose:N ormal: 70-199 mg/dLNot e: Random glucose >100 mg /dL is associated with increased risk for diabetes Testin g Performed at [facility] Lab Clinic Physician Director [facility] [place], [address], [place] [address] [facility] HospitalGlucose, [id number] 18:11:23 Test Item Value Reference Range Interpretation Comments Glucose Random (test 189 mg/dL 70-199 Effecti ve 04/09/16, the code = 2345-7) glucose refer ence intervals have been updated based o n [place] [employer] ramona delines (Standards of [...] risk for diabetes Testin g Performed at [facility] Lab Clinic Physician Director [facility] [place], [address], [place] [address] [facility] MurfreesboroGlomerular Filtration Rate 2021-12-16 18:11:22 Test Item Value Reference Range Interpretation Comments eGFR-AA (test code = 63 See_Comment Normal eGFR >= 60 05583-5) mL/min/1.73 m2 Note: The eGFR is zenaida [...] Kidney failure <15 Testing Perform ed at [facility] Lab Ambulat ory Care [facility] [place], [address], [place] [address] [Automated mess age] The system Wildcard generated this result transmitted ref erence range: >=60 mL/min/1.73 sq. m. The reference range was not used to int erpret this result as normal/abnormal . eGFR-DORCAS (test code = 54 See_Comment L Normal eGFR >= 60 83696-0) mL/min/1.73 m2 Note: The eGFR is zenaida [...] Kidney failure <15 Testing Perform ed at [facility] Lab Ambulat or Care [facility] [place], [facility], [place] [address] [Automated mess age] The system Totsy h generated this result transmitted ref erence range: >=60 mL/min/1.73 sq. m. The reference range was not used to int erpret this result as normal/abnormal . Lab Interpretation Abnormal (test code = 12619-8) [facility] HospitalCarbon Dioxide [id number] 18:11:21 Test Item Value Reference Range Interpretation Comments CO2 (test code = 27 See_Comment Testing Per formed at [facility] 2028-05) Lab Clinic Physician Director [facility] [place], [facility], [place] [address] [Automated mess age] The system which ge nerated this result transmit anny reference range : 22 - 29 mEq/L. The refe rence range was not used to interpret this result as normal/abnormal . [facility] HospitalCarbon Dioxide [id number] 18:11:21 Test Item Value Reference Range Interpretation Comments CO2 (test code = 27 See_Comment Testing Per formed at [facility] 2028-05) Lab [facility], [facility], [place] [address] [Automated mess age] The system which ge nerated this result transmit anny reference range : 22 - 29 mEq/L. The refe rence range was not used to interpret this result as normal/abnormal . [facility] HospitalCarbon Dioxide [id number] 18:11:21 Test Item Value Reference Range Interpretation Comments CO2 (test code = 27 See_Comment Testing Per formed at [facility] 2028-05) Lab Clinic Physician Director [facility] [place], [address], [place] [address] [Automated mess age] The system which ge nerated this result transmit anny reference range : 22 - 29 mEq/L. The refe rence range was not used to interpret this result as normal/abnormal . [facility].Serum [id number] 18:11:20 Test Item Value Reference Range Interpretation Comments Creatinine (test code = 0.98 mg/dL 0.51-0.95 H Test ing Performed 0-0) at [facility] Lab Clinic Physician Director [facility] [place], [address], [place], [place] [address] Lab Interpretation (test Abnormal code = 21354-7) [facility] HospitalBUN2022-04-04 18:11:19 Test Item Value Reference Range Interpretation Comments BUN (test code = 7 mg/dL 6-23 Testing Per formed at [facility] 3094-0) Lab Clinic Physician Director [facility] [place], [address], [place] [address] [facility] HospitalAnion [id number] 18:11:13 Test Item Value Reference Range Interpretation Comments Anion Gap (test code 10 See_Comment Testing Performed at [facility] = 07349-3) Lab Clinic Physician Director [facility] [place], [address], [place] [address] [Automated mess age] The system which ge nerated this result transmit anny reference range : 4 - 14 mEq/L. The refe rence range was not used to interpret this result as normal/abnormal . [facility] HospitalAnion [id number] 18:11:13 Test Item Value Reference Range Interpretation Comments Anion Gap (test code 10 See_Comment Testing Performed at [facility] = 38694-5) Lab Clinic Physician Director [facility] [place], [address], [place] [address] [Automated mess age] The system which ge nerated this result transmit anny reference range : 4 - 14 mEq/L. The refe rence range was not used to interpret this result as normal/abnormal . [facility] HospitalAnion [id number] 18:11:13 Test Item Value Reference Range Interpretation Comments Anion Gap (test code 10 See_Comment Testing Performed at [facility] = 81228-8) Lab Clinic Physician Director [facility] [place], [address], [place] [address] [Automated mess age] The system which ge nerated this result transmit anny reference range : 4 - 14 mEq/L. The refe rence range was not used to interpret this result as normal/abnormal . [facility] HospitalChloride [id number] 18:11:12 Test Item Value Reference Range Interpretation Comments Chloride (test code = 107 See_Comment Testin g Performed at [facility] ) Lab Clinic Physician Director [facility] [place], [address], [place] [address] [Automated mess age] The system which ge nerated this result tra nsmitted reference range : 98 - 107 mEq/L. The refe rence range was not u sed to interpret this result as normal/abnormal . [facility] HospitalChloride [id number] 18:11:12 Test Item Value Reference Range Interpretation Comments Chloride (test code = 107 See_Comment Testin g Performed at [facility] -) Lab Clinic Physician Director [facility] [place], [address], [place] [address] [Automated mess age] The system which ge nerated this result tra nsmitted reference range : 98 - 107 mEq/L. The refe rence range was not u sed to interpret this result as normal/abnormal . [facility] HospitalChloride [id number] 18:11:12 Test Item Value Reference Range Interpretation Comments Chloride (test code = 107 See_Comment Testin g Performed at [facility] 5-0) Lab Clinic Physician Director Bldg, [address], [place] [address] [Automated mess age] The system which ge nerated this result tra nsmitted reference range : 98 - 107 mEq/L. The refe rence range was not u sed to interpret this result as normal/abnormal . [facility] HospitalPotassium2022-04-04 18:11:11 Test Item Value Reference Range Interpretation Comments Potassium Lvl (test 4.1 See_Comment Testing Performed at B code = 2823-3) Lab Amb[facility] Bldg, [address], [place] [address] [Automated mess age] The system which ge nerated this result tra nsmitted reference range : 3.5 - 5.1 mEq/L. The reference range was not u sed to interpret this result as normal/abnormal . [facility] HospitalPotassium2022-04-04 18:11:11 Test Item Value Reference Range Interpretation Comments Potassium Lvl (test 4.1 See_Comment Testing Performed at [facility] code = 2823-3) Lab Ambulator y Care Bldg, [address], [place] [address] [Automated mess age] The system which ge nerated this result tra nsmitted reference range : 3.5 - 5.1 mEq/L. The reference range was not u sed to interpret this result as normal/abnormal . [facility] 18:11:11 Test Item Value Reference Range Interpretation Comments Potassium Lvl (test 4.1 See_Comment Testing Performed at [facility] code = 2823-3) Lab Ambulator y Care Bldg, [address], [address], [place] [address] [Automated mess age] The system which ge nerated this result tra nsmitted reference range : 3.5 - 5.1 mEq/L. The reference range was not u sed to interpret this result as normal/abnormal . [facility] Ngvnp6296-03-04 18:11:10 Test Item Value Reference Range Interpretation Comments Sodium Lvl (test code 144 See_Comment Testin g Performed at [facility] = 2951-2) Lab Clinic Physician Director Bldg, [address], [address], [place] [address] [Automated mess age] The system which ge nerated this result tra nsmitted reference range : 136 - 145 mEq/L. The refe rence range was not used to interpret this result as normal/abnormal . [facility] Ovgjz2070-68-80 18:11:10 Test Item Value Reference Range Interpretation Comments Sodium Lvl (test code 144 See_Comment Testin g Performed at [facility] = [facility]) Lab Clinic Physician Director [facility], [address], [place] [address] [Automated mess age] The system which ge nerated this result tra nsmitted reference range : 136 - 145 mEq/L. The refe rence range was not used to interpret this result as normal/abnormal . [facility] Uxahd6081-64-37 18:11:10 Test Item Value Reference Range Interpretation Comments Sodium Lvl (test code 144 See_Comment Testin g Performed at [facility] = [facility]-2) Lab Clinic Physician Director [facility], [address], [place] [address] [Automated mess age] The system which ge nerated this result tra nsmitted reference range : 136 - 145 mEq/L. The refe rence range was not used to interpret this result as normal/abnormal . [facility]Guided [facility] Hzmtjncagznaav2711-40-86 21:37:45 Test Item Value Reference Range Interpretation Comments Gross Description (test g8fzoCUaVQGrqIMUZIb code = 2826364466) wMVxhbnNpXHNwbHRwZ3 AsgpqtUVfaKZ0nGU9iu EqyyIAywNLnSG9NMEFu ZmYxXHBhcGVydzEyMjQ nMWZhwZUxtWD8VJOmPY 1hcmdsMTgwMFxtYXJnc mJ1RPBmlFHuD7YuMGRs VY4lbuxgVMH3FKxtrZ8 watTWEkzrRw0xvAEcdY tcZjFcZmNoYXJzZXQwX MGrdIieWVEmUIj6xT2D YvywP24eb3F0Gtx0TPV nSZSiV9UpIU0rESOveK KsP69FRjgvADG5MRVGD kkaTMUxCB2Nh4nkTUKf sGUlLVD1VEvboQNwCOY sUBLrKJi5FFWgWSpveP HsSF6ocPapLvidiDppn 2VjdCBcXGlkIDUxMDAy DRimSMHsIW1CKzOuHEQ nUIB4SKClPTb2OCa4FO 5SMmByEROxAAG7DWZfU iGvVAg1WCcmKN4KABNm IBC2PCM8IchtIQJcAaO lNSc4YMImHHogKPByfY FsIFxcZnMgMTAgXFxmY yJfXICrXJphfoT4DNTs YWluXGJcZnMyMCBBOlx zVXSrDTcvgUgsaI3qUD QeD05rw7CPn6YaCO0KR Wj4dlFccyrtkK5tGISn asXxTRiltSXnB2azE1D gUQVmTyWdA8HdC5mlAG 5dCDMyf7B4byFmVlziL XIgDQoyIERpZmYgUXVp yrgqQFJIZQNnF6YuxQ1 hT3rcGWHkNOApexQVFx RnGB9qFWAjtJDwzROxs BukKeaabHW8ZQkmUzpi cY9lbFUPRAKDHoeICab hogXnOL7VOJTARqLBLA 28WsE5IdF7SXkewVaeL naajhZuaFYhBtDJvY5e bGVhciBccHJvdGVjdDB 1HNGvQUqan5ocMPEkST kqt0XpFBzGQACACP8WA M6cvIZ4N1cXNCMRA4jS hFY0h1ldcOTbd1g2TMw mLON9oZPfGVzyIpvveM Y0ZYdmLkeumC1szNZKH ARUVajXRzjxgjWfZT5B IZyCAG7SnMB1c2ogfYB su8t2ZSzoRRP7tBpykK BxrdoskVImiJkdmz20Y YD3QFZpAWbrjnXrZABm yIFcRJfqKybzsWJ9XRp gWehqhI6cwVQQTJKBJl zLKkcsywUcTM0GLUFBK G1DaWE4VmOelQR9BO20 EDMjQOZilRBrQGewW47 8KJRiZTapQXn6nxOaIQ NmMVxmczIwICBpbiBSU C0NGKYfixKAXvDfZ4p7 i5BclL2lpILyZZ4DMDC vwtMOEpVvfzS3FQDaOS AkvXsdLBPjDEtXyG2yJ GlhdGUgYXNzZXNzbWVu pMSfh4Emm7DiW0kbSU5 hHPOiuNSzA3fud4HkUZ 0oQZIpHETzb8XmX2O4Q LYyEMakr2uiJKQyFNbs v4GuXXnWRZTBQQ0XFS6 qnHE7VBlJBSSMP4fCkH X6DlE2hJK9Y304GKFnB KElhIVyIXhmN988jAV0 BSPvXDxrz6uyYMTfUHe yh0JkLWfRCSYGIP0UJB 6neXR8QWmASAMYPQvhC Wi1DDcdgIN2y2aogNZl c0w4HBcdQJJ9jNpmqSF pblxsdHJjaFxjZjFcZn MyMCAgYnkgRHIuIFlvb 24uDQpcdiBTTUFSVExJ T6NoNAAAIRVVCZZxCiO VWW7vAtS9WoP7YP3uTb wcKtG7VtW0yLF8PGLKA WTOFWtMR2DhFGVVADSQ XJMaYM4YZSkBTSTCWMN IW78PFSNMYSFST6FCU2 zIHHEdb3ByVBxHHJBZC RNCJ76VLWHOTZTKC5RF RCBQTEFDRUhPTERFUl9 MHABTFBNAPQ1RVWdMOo BcYDcliJTsTBbsZVU0X Yt5Y1u8gWBos4BngHP2 IwU3TdYktWJXQADKRAb SVOYUXz9CKTGARHWTTC 5ZWsFmV5QQWZ6ENg8QM DLVGMWDPW1ZRIhVSySo U4GNYF8SBm9VMSZITOU IUU5CVuFrVOOQR8LTDv GPL4jxUSUYPLLBCTHpX oJADC4vTHQCLI0PBAFF VWRUD24EUFWWHXHUP0R FUV8KCOEyjLMRUYH4XN 7rWGh5JOmhYLRnQ5TlQ 3RlbmRccGFyXHBhcmRc z7jvWLK9RXOvrKBukUT nHaMlLvfrOJN6WUWdAY gnSO4TCYLnLTB5MEyyi U49zLRvFM4IVHClXSri JKEgOBUusrY3GLAivRL zRMA9QL3qsOssyLGeqq xgcdP2GE7UoZ== Immediate Assessment (test Adequate code = 9837) cellularity, favor benign Major Classification (test [facility]/benign code = 9839) Diagnosis (test code = 34) l2vkeQQlGYTehDB0NjZ oONJwk6urx4KgsNUfcH EfLDhyjMMszjPuys74c CK4aQ99RR6eSDWvFyO4 LJUnjrY6Mqz6LXTyFTU xaRCeS082q6iuu9ofcx EpvVU4GEBfKQSyV3TpQ E4oAYQnqCXdV89chKCx FHE1WPNrKBZppPRyWNG vIYD8MYPhdBBmR7mkTA YdHU5ikbyaOApvNJckV XHfdKZ7OADgjMWrX5Bt RPQuYIscHKSwzgj7SoD gLy7zaTTygTioSYndV2 zmyP8nDzX1WEfpA7vkm R7sBUe9GZweUUSdtZJ8 weT0ACSstBTiL3ZhfS2 qYOMeCL5yhoq0o7nzAI N3GPnkDMThJrF6eyK6U DBccGFyZFxwbGFpblxm czIwXGNmMSBBLiBCcmV rh6JuVFIuP5g6IBQhlN 8pWP3uAPXbFIQpc4KkR XHhF9b4XGZePTJjpGBo FQOqSOP1YJGtHUYyDr2 8YTXsdmp3XFBqvUEuQJ xpNzIwXGxpbjcyMFxjZ fTrXq0dyTYviLmzPK47 HVBcnTykJWlhCM06dQK pZWRccGFyIEJlbmlnbi BayJZ5NXkxLXAsyPkvv Im7wBE4zEZmYKLiw6Ky xK5fSG5moHEwhBWnpRE ooB5zIYYdRBNlH7NsfT 4mKZ5pEWF9e0WcJaIjP XWllKGwFE9eUXUfFWN1 DRMbBDMnXFZtm9FeXOb bhrSar37fcYQ7OU20AW naoOdlOjlotw0poHU4m TOlO5jktcnqYPEcecif YXJkXGxpNzIwXGNmMVx wYXJ9 Retained/Biomarker Testing h8hyvQNkWPVbbNQ8GaC (test code = 9838) tQTBmp5jlq0EybZKmxK XdEOqcsQQbnyXcaq85f QA0fP43GM6jJUNuHxE3 VOPjmzR1Odr5RBHaQRB cqWUvO117t5ffz2gqxe GzmFD5hTajFZBfltxjA sG5FKudNEFzncsaFEp1 BWwgGHCapYB5RKQuiCM mY4XlRMGqNL0yhfd5RA F0NBqoVZHzStW3LILkg MYaUNVseEvyLOoqo347 XTI0EjWqKWEatpZgfVj gtL9jVcPkKZPEZowqGX BTXHBhcn0= Informational Points (test z6oyjLOzWSIxcRIqYnY code = 9836) nKEHhJFKvy3kbBFMauR FuZzEwMzNcZnRuYmpcd GItJEVgCuVbq4zra914 lJMhx4xiZOFmZyW0pPK hXVLtoJHzB906SIFlYS ngn7zdm4WsAVGvaVPka 7H3CNFNHPuyHTYUOGw2 v8zbHhSmZzT0nKZmBOj aH7nyksTmfDSkQKFdID q6lE22BAMgnS0vtAWjQ KhalwHfWoF2JKrlFIBd DxB7OGDqyZAfNINaI4z yZWQwXGdyZWVuMFxibH GoJQH3nEoqq2X5vDNfv GVldHtcZjBcZnMyMiBO u8WsPOm2eJqyQ7AoTGT tKkB3sBOsXWYxOLojEB ApZJUxgzP3cS45CDumo lH1wQRpx7Tqx96rs044 oJ2siHHkZTP0ABLgWGO ztVYcAZZuFZP3SJCsvZ MfK9lyEIYmSY3wxshpL RqiXJssMKOkvZI3XYYi hSApY2DrNRWqREaeQUE jwph8GqDvHc4qyMPbaA mzAVqzo7try9txmCWdA oy0GYZeHxBkBkzoZDav w0Ana9kcDKUqjk7oRGN 7gLCbvLjrk9U3mWCeDG VadVLicbWnUVUlgi70r UCyqQIdrYUnyk6sgpHb rZPhxPNpBDQ8eNMiigE uXGZldDRcYWVuZGRvY1 hdZdUersWtR2pxX9AuL HJoZWFkXHBnYnJkcmZv v1Wyd2DclLEedLj6b0q pFJJdXWMvrAkly5udJJ Q8RLMwH4V6rRMeg1ubH CjiZDQaySR5ymR8GFMr xQUgV6FdmH4lSOQzIE1 fwcr2z2mkGKX2LRtfHG KtPlD3siC6EIRzwTBhM ZYzxVgdIEmdv711GDC6 QxPyIQVdc5YzC3TnqGw fU86hfNheB01xQWSxlF imfO4ctNgkaC7mQgYaD nMyNFxxbFxwbGFpblxm WLuayeJ4XOxjxqzdCCL wOPlyK5ymXlLuPDDcsN jgVYbtv7VmCZHdGYZdE PjyxVRHt22kTJFoc5Mi LAQseN3oaWAhWSgxltE yrRK1QSyyflYaRdYzbn VkUTBzxJ5aKSGkQA4aV YIrwgFtlu3rtaHcQYRb TMIvZ6JfvozsbMmhoaO gPULzii2ixfHpTRU3FW NFWB4OSHYlHADwb74wX BPmvDteeA3ppOWxjwOv ANSoh4HteG4slWDDHGB tX6gbBP3mYEwut3GpzB CgtUGzkRF7VLWse4KbF hAgbbWquBYdwLQeQ2Ck fYnoW7wpWGKuUYCvhjQ spLHlt7ZgMYWtwPP4jE UmMR5QBqGRu08uKMJeX CBEcnVnIEFkbWluaXN0 fqG4pT5bTkMYeIyoPJR ud4Fck4PmHKYjufCakq VsTOS3CKggqIEpgphtV IhyolM8DKhosqwcYMYu KHgiO8xyPwUmEZGtvRk wGAmko9ZdQNPoRGQtKq pzxlK2PPj6xjWnGDubD CQrT5OeFGKqsZuqKKIs eSBBcmVhKSBDeXRvcGF 4dS3zq1x9JDqxLq1nJD UqwasniZofvZ2zRtMjX cPlAQqxHM7wBAKmS2qr wWVxGKLvARPzK5xdQcY eaO2vzSceRFfsAeYiEe MxOFxpICwgXHBsYWluX GYxXGZzMThcbGFuZzEw MzNcaGljaFxmMVxkYmN aJLAuCAbtK8hbTeNlD8 TvSRUqVPtbuAZcJ8ccm SAyXHBsYWluXGYxXGZz MThcbGFuZzEwMzNcaGl jaFxmMVxkYmNoXGYxXG wiJ8vnSxEfK4ZsHIQlV ThcZXhwbmQtMVxleHBu PMU9ZVCkmOFsA1ahqFE wRSNoS2EnKePCrkPjw0 E0QDBrhVMrVHHHWDYeo REcP9j3rDguGVgoVav8 NzMuXHBsYWluXGYyXGZ zMjJcbGFuZzEwMzNcaG ljaFxmMlxkYmNoXGYyX UefJ6shWmBeNwCyCcwe YXJ9 [facility]NA Fhfqadfxptiket4500-10-53 21:37:45 Test Item Value Reference Range Interpretation Comments Gross Description (test e0xjmQEcVQTpbFLCIIz code = 0552282123) wMVxhbnNpXHNwbHRwZ3 ZlqlzgVTteZG3xNW5hf KzucUHtgPQgRB6UDYEv ZmYxXHBhcGVydzEyMjQ eGMXvqRFsuVI0ODAeUW 1hcmdsMTgwMFxtYXJnc dJ1ZTAnzEUpF5AuCAIv DN2bjzcoRPJ6VHhetR5 qiyOSYhnmSo4vtTJnnK tcZjFcZmNoYXJzZXQwX PTayUzxIVKfNQm4wA4K NomvQ03wt2S9Xhh6JZX nJWLlG2RkKB8cQMIfkR TiP57NIaypJLI2AHBBY kybKWNjGC8Lt7whVZCm oHBgFSG8MGvspIClUAS aKUPhBPu2WOFbPAvitH NwSO1lkHwkKwmxtMqzy 2VjdCBcXGlkIDUxMDAy UNwiXTZvCQ2QTbGeRAD yKCY7NTRyWNr6JCa4FV 6UQyDdDLMdXXF9OHHiD lPdURr9TOdvDU8XHIOh XNK9IAB8PpkzNBEjRmU dHJi8DXScXKolEBHjmF FsIFxcZnMgMTAgXFxmY sIhFYSfPDgnubE1KSNa YWluXGJcZnMyMCBBOlx tPZOhKMasmScaiC5kWT KwA64fl6QHb5NyKL6AF Xe0bhJvnfgqfX9xWGQh gnUvZZkncLIeC5ffU6M nAJIuKuFoD1QmH9ozEI 3sFOOao8I7sxYgFqixU XIgDQoyIERpZmYgUXVp vimaRFSUEKFoU7QncA7 lX8wyHNWyQIGmvhLXAb CiZT1rNZGbdHCrdPAec GhgNeafnNY5SYeyQodg yV0uqBBGWKOSQtlNYos uahBpPW3JOIBXBuKTUJ 87NxH1XiX8JWdliKhwR vrhccFecEWdUqLQuT1r bGVhciBccHJvdGVjdDB 1WKQfUWngl3xuIZPrIF plu7DbWWmLRDHQBP0VT T0ytHS5L1zYXODJM5jU dDV2p2ftlKEft5p4SDr uCYE7cCEvZPssUmexkR N3BWovVzmauH1fyFXDQ RLUFnfIUiszssZkOQ5R OHvIIB7OtDO3r6mssZF vl5a9SWcmGQF3aGxxdC YzfcataFJvpPbudz55E OL8ZJXoJPuflkCxTJJt rIIdWRvqXnffgHH0BEv cKbmbcG6rzNTAXNLWDo kMYuoxjnPrHZ0WYURZK O8RdIV6XmNtyPL1LJ06 RHSvGLDpmLQwJBdqF22 8PDZpBGnuAXn5raKfVM NmMVxmczIwICBpbiBSU C0OFWPffxHIBcNgZ4x4 e2KrkB0htHAxPU0GWAT fxkGNPfLdylX3SDDnSG LpyInfHQEkOLtUrM9hJ GlhdGUgYXNzZXNzbWVu pAHjp2Oas4QgR2ztMD2 yTDPlxVCwS6nso8ZjJB 7bMEZcILCsr8VbG2V4G UAcGWetw3lfAXXtLVlr r8MnKEtLQXFNKD0JYX7 fmUB0KKtQRMHMZ1gPtN G8HkY1xHR5U861STMqV SUtyIYnYPmkS625aDK7 TAJcGBmyj3xgEDLcHOd zq2MtDAnTGQTAWF2XNY 5klGX7BRnZGTOHVIotF Ku3GVwbbJN9j3esfXKe f1f8CDsvBAX7pFejmOO pblxsdHJjaFxjZjFcZn MyMCAgYnkgRHIuIFlvb 24uDQpcdiBTTUFSVExJ W5IlWCYJVBKWBLQcJhN CMP4jUzH0InF2OC8uGg cnFxB2IiP0sCF1VZWYL QNXDAdOU8GqTXNEJDUT RCVuIE7PKInGMIHZYST GF01IPQTDGMOHY0KQO4 lGYEWet0DxHUaYVGYWZ ZFVQ10GKRSQXPOMB6UG RCBQTEFDRUhPTERFUl9 NIGZTTMUZHM2TQIlTOh YjPVufdOZtYHglPXM0M Oh3F0p7bUNbc7GfdJC8 EqO8VqQyxTDHWZMOTRv HSBFOMk3UAIVAGVBTBW 6LLkDwB6RNNL6JKc9US IUZLLOVLG0RUAmTTfFs R1QQOF6VCv8ASPDLRYU JLS3WTrAkWKHLT9HIEw IIK2izEQZZMMXIQBYtP oMBOR4aSFSFNK6XHVVK WOPAR35ADZDYPKYXN7J QVZ7ULARjqFUEOOU3CM 3rEMz7YEpgZVWtF0FgR 3RlbmRccGFyXHBhcmRc e4txMKS9XWXknKFpoOY wZqEjVmjhJDS2FRYhAK ujEK2VNXYhYOY3QVnrr T25zMRuPC6VASAtRAvk WRIeKCXhsrR7VZCfeCR cEEE8WN0yaNrfbZFnma enpeZ8IQ7RnX== Immediate Assessment (test Adequate code = 9837) cellularity, favor benign Major Classification (test [facility]/benign code = 9839) Diagnosis (test code = 34) g2olxSAxYBXjjOX1RmT iFDNua2tel5ZhjNMqaY JwHDopuKQxorPgbm25k DJ2aD94ZW7fKAJxTzX6 GWRjluG7Fpu0ECOoXLH mrIVrB793o6mhc7vthh SadAA2ASOqOFFyZ2TtM Q2xDZBodQPqT68ddSTz ZUR5JBHzXNLjbMUiTWZ xEFW0ZXUfvCByS2iiAH CxEV6vyzanGXddIAayL DShnTZ6IELavPZiO9Cq GQStJUlaIMQqkka3LaQ uZv9jeORrbCmwIHhlW0 itcA5wVnT4WEysG4whs T4pHWj6COguBDOyvMQ8 vmR6PWKbrGJrG0UveZ4 bPWBlIT1teze8o8flWL Y6WNyfPBVqDdL4knW3U DBccGFyZFxwbGFpblxm czIwXGNmMSBBLiBCcmV ev7FqMLLmG4h6MYOrlP 9eIN5iRGLsITIvg8PyF JDnO4t1ZHDnGOBjhOYm AQXqBVI8GBVkNVSzXu1 3QXYudpf7FXQneAInWA xpNzIwXGxpbjcyMFxjZ dVrDq2jzOEedFtsVU90 VSIcvHvwZBdeNJ46pBK pZWRccGFyIEJlbmlnbi FjuCE0CGudYTWtsVfgs Gz7fWL8iUPnRVAyk0Ll gJ2pDB3lgLMcuUWbjCU kwA3uDXLvKSJwO3WroW 1kYS0aTUM6l5ReZnTyW EBvrWReNP8kJSBdPSG0 BALiNUTzSRZxg5UxNZn gmjWne43raSK5NJ22EE mrsLlnShlufu8gaEF7e QOdH7askqxqIYYhokep YXJkXGxpNzIwXGNmMVx wYXJ9 Retained/Biomarker Testing b7dhxSLwSNOokMJ2GzL (test code = 9838) mJWKag8psn6RjhASooK TrXKlgeEGjbqFolw49l MA9iR67KW5sGDAtXkY3 LUHodvH7Ivq0GGMmZEG tjHEdR020a9ksl0thjq GknGW1mWabFKShftpwH wA6CSvnKLKhqhoiLVe3 KGisXFAadVB7EVRjgGG jY0IeKPEjSZ8sujv4RJ P7JHnnZKLsLyM5XBCph ZBoALYovNedMBxvn797 EIV4JoMlKDQiymLtpCs xcO5fZnPmOTIYVegpCF BTXHBhcn0= Informational Points (test e4bavOLgMFIyoWKlYbT code = 9836) xCWJfFSXwm4tgDWYkvY FuZzEwMzNcZnRuYmpcd VPuMEBpBdOuk4kmz461 eXLhx8weRUWdSqG0dXY bHYZumNAaX835EHYxIY wbe0yij6CcSIYtoDIym 9Q3HJBJPQdzVWTPQYf6 u8quErCbShL7gBQgFVw uV4hdsqPyjSTfXHLkKE j5dM59JKFeqZ1dmOWpK FamunKpHsX5GVgwVNUb OxQ8MZIigKXhNZBlS2l yZWQwXGdyZWVuMFxibH FwWYA4kFtcg8Q0yJDgh GVldHtcZjBcZnMyMiBO h8QpYSm4rHhtF1NcWZE vOxT6gGKyQLOgXHjyBC KfGJXjuaU2iG72CRuez fG1qZGtl3Wjp00xk965 jI7qcMQpDIE2BFOrCGT wxFMeVDHsYEW9HYEtrX MiN9yuIWGxIF4igwynV DepUPkiDVJlcEA2BBUu wGXsE2NsRKMiLTznZIX wpqe8CpDpYs8irIZxtF luBTbqc8hpn7hjsVCyD hl3MTCdOwXwJcndLNzp r7Ihf9pbZERmgr2cBXH 4aPZsiWhir9I5wDRnEZ HpuLWlxnBlTYAbaz46f LUczOTlkHTktv7jjnHc eJMxfSVlOXD5dFGykoA uXGZldDRcYWVuZGRvY1 bkQyNqohGlV9uoF4NgU HJoZWFkXHBnYnJkcmZv s6Bfv5EqdRAdfHd2m1r dHBHqLEPeqGqkp2yxJK N7ASPsT7L4fCTda7qyH GkaRNTsnGU7luK2WZNx bRHbK3PsbI4uDRIcIU3 nlnc7h6knUYU1TUrhBY CeGoE8iyC2HFPhrFPqW EXvnKuyQStgi604DIO0 QsVdDQJxu0BfH5RflXz yG72dnWkcK15vUJTwpX pppQ0frQyloW3rVdOsC nMyNFxxbFxwbGFpblxm RCjhrdO0MDytzefaJUO qGVliH6hwAvFzHHYuzY lqBKfqo8FoSCNzBVDzD SbuuILYh17zNZDfn7Wu NOIqyA6ewEOpZDmwjiE gqGD6NJayaiVyIdQcty NoBSIgjZ1bVTZiJG3jL ACberKgqu4eqiWiZBCf DBPgA2ZzscitwKkqugV dSMPxfh0rfeTrJLF4YQ IVZU7PXXArUECpu09xL DLurMbdkL9rlYPvnbJk ORGav5VujM0ukPUVBPI uX8fwON5rJJvxa1SawQ XqdWTanJJ3VBAqf5VmM mTqlqFpiVOteYKtP9Yy mOdrH1vwYGVgYOMbfkW svFHym8FqSIUavLG7zC RaWH8QLgBPf15rNRDyG CBEcnVnIEFkbWluaXN0 ucG2gG4oXgQGqWayCGI bh5Bvs9VgUKQlknZwos UaURQ1OOdquLUwmnmgL SiclvC6ADawfkmmYPCk RZnsI2tyYlPvRVOueBp hKZisu8DrHLXpTKJfOr jysjX0BRu8chTpSMetN MViV1KkJSGffTgeHJIp eSBBcmVhKSBDeXRvcGF 5uV3ma2a9PTwrBb8uOL GnlpvyzZfraY7fKwDmJ iIoDNutSM2jJLWrS0bm eJXuJYVnMJNuD4uhZaO spK7kkZtoPDfsBkFhAv MxOFxpICwgXHBsYWluX GYxXGZzMThcbGFuZzEw MzNcaGljaFxmMVxkYmN zFMBnWYqiY1xeZhItC7 AlFIQdKEujjLBaB7knc SAyXHBsYWluXGYxXGZz MThcbGFuZzEwMzNcaGl jaFxmMVxkYmNoXGYxXG lcW6ecFoRqQ9YoNEVvM ThcZXhwbmQtMVxleHBu VXY0XJXjiXTaG2tygXP zNMQiF1VqUrQNpcLzz2 K7GWQycVEyZCXSJSXms IAlW8o2iAqfOMtvWai9 NzMuXHBsYWluXGYyXGZ zMjJcbGFuZzEwMzNcaG ljaFxmMlxkYmNoXGYyX HpsF1alTyMqCqYxBicy YXJ9 [facility] Wkqvnhonpgbxhm2799-65-12 21:37:45 Test Item Value Reference Range Interpretation Comments Gross Description (test d2vpuGEzPECsqECIGXn code = 4429897454) wMVxhbnNpXHNwbHRwZ3 ZcvuxzHAthON0hUE6st HppyDKruQTrTE9GJVIh ZmYxXHBhcGVydzEyMjQ gRECmuTQjnIP0CTGiKR 1hcmdsMTgwMFxtYXJnc gA2MOXdgRQaI8CzXBDk QE0gvjccVXL6IUpsoM5 pcuSKAvujNj9oyPOciM tcZjFcZmNoYXJzZXQwX EVyaAbaXXUoOYp0bJ9F OlqbC09mg4C8Wje4WON tEBImA3LfPH8wUOBgfJ AtL93WLzroNWX0ZGPGD zmjWRKcPQ6Rm4yaQDVx jQNuZAR2OSndoRYzCNI yLFQcEYn2NFNcDOwaxK YbCU3heCccCrmsqZyov 2VjdCBcXGlkIDUxMDAy KFfvWZHtLV5LYyYnMOR bSUI6JIJoKXm1CGv2NH 5CFuGxLRCsPPA9DREwJ zQmKIe0FCwoNH2OFQCh JKP7UDO0NfloSOEoYlQ fNVq8FVDoDSihSADmuQ FsIFxcZnMgMTAgXFxmY gXwOVBdADgzfxK2FJXh YWluXGJcZnMyMCBBOlx mHANoRMxjvHtqtQ1jDH QiM54qo0OVw9VhZT9EA It3slGoutfhhC4jLNRk osIsSCrfdDQrS4gqW0B oUOTkIzCrV9XeI4lpXE 1wQCZhq0C8ukLkSpueO XIgDQoyIERpZmYgUXVp nclqGVDZRQVnD6BiuG2 rK8hlZVTjRONhhvBBHn LyUA7hFTItsPOnsXBaj OseQzzchCJ8GSykHifk qM2njOWKIDGFBpkWLfr wdyKhDE9ILGQNUwWPFB 73YiQ5FsG8RHljkHcqW rgxdnHbkUSrIrVMgL8h bGVhciBccHJvdGVjdDB 4ZLDwIOoev4ckDXDaUJ tmh1ByXBoZTCUMUB3DY N2ysKE8O3wHFCAWW2uN mMK7h4gctGQmy0f9AYa aAYB5tPRwKUlzCpcurK H6UFgxXcqcmA1ruTKEM WSAVnhPCbfpgbDyUN1K TUmQAG7JqHL9m1hjwVU ou9y1SDenFGS3fAvwzR EklfmcgLQsgKmnzn43Z XP2KRBsWCikmjEcHETh hMWqAAqhUcjmsQP4GAr mMrclwE7lhPUJCRDCIx lLYkcdncSnFR2LCYXTV L0FzVJ1RtIctGO7QU43 THAjIAKfvNUuBRadM92 3XJHkONseQEb2ftNxJN NmMVxmczIwICBpbiBSU Q8LWUYpnrFONkKpK2s0 c7ZlfW3ifRBbXX4WXKH uerMXPeVxykI8WSTpSI BvoGzoZVDqUReJmF0hL GlhdGUgYXNzZXNzbWVu jZKsx3Auz1DpW4drJL5 rAGVonZDpT2hvr3UtHS 3eJWRpRARam9WfZ3O1Q SKjRExps2doRWZrIOmj c9MvQKqEVVQKSW4CYP6 beJL1OVeUNYPWF6tWaK N5NrE2oRU7V424ZLCeY KVayNOdIJrxC513nXF3 LWXdFPnhc4ivWZRfRIk ta4XbQPyJWQRMED8XAT 9nbOX9YEtBJPHDKWexS Qu3LMysyZL1l3oemMYl f0v5EKeqSPC2rQxkqMN pblxsdHJjaFxjZjFcZn MyMCAgYnkgRHIuIFlvb 24uDQpcdiBTTUFSVExJ D7RoUYLUORTXRLKvEtR MOV8lCqS8WrE8WZ3aAo ixOjA9BjJ2lLP5GODIV ZMMBEcVA1SyNKBPQAUC BDBgRU6ATYsXCTEKXCH SG86GYJFDFWRIB9QRJ4 wCZUVtf9VvHToQNEWNM ITEC18OOWDBXSDRB9IT RCBQTEFDRUhPTERFUl9 BRSWIMLINQW7AAVvJZn YdXUnwrIZwMLmyHCE5U Pr0L9m2hKIxn5MeiVU1 GoP4SlBjzLURMNIKDQl QABGDUm3AFSPQFTKQFP 3VXxFkX1SYTL5DWm4LI PNCYGRNPM1LFRiJWnVj R6SPJL0YOm5MXSVFQDB RFU9NWuRlJZRMD4AYRa ROV7lwXNEXLOFIJFLvP jTACR0qHDNYKH3HNYRS HBCAJ20BPVXWMVJGZ4H YOH5YRLSzkZTHQJH1XI 0iYIg6TJbdWALcG1HgX 3RlbmRccGFyXHBhcmRc k8kmDOT9BOUexUFbsNR qIlKzBmfhLYI9UILhNL dyJZ0GVQVkSLW2WEgnm H09oGOgHQ9OCLZzHNfs YVDvQHNwwcM6HJHfjXS nDBZ2PN1fbWebaZAkkj ousuB6XV4DbQ== Immediate Assessment (test Adequate code = 9837) cellularity, favor benign Major Classification (test NFMC/benign code = 9839) Diagnosis (test code = 34) h4fpqNVbGAEyyZT0YkO bGSXsu9ksj1EhwNTzeQ NiAHloqLRchkJiqy35a NP5uH81MS9tUJFgYfI3 TVNiaeR8Aqq9OIPuTPH oqPObI502z7pwg7vguv MwgES2WVCoJKHbJ2HfS G6qAWWwhOOzS36gkVHp ADN8UEFkTYYjbDYmSTO qNIZ4UHIhqEBdT8ewPD MaDH5lfdlsRXobCGldH ZLcoNL6ZHNjaRAiK6Od KRZzQOkeBQBfmfq3KdA aHo6miAIeoXrwFDkzC0 jqjQ1zYeW7OVnoZ8lsi N0hAWm1GNflTOHxlRB0 doJ3KSVhaHLyW5BuoL6 cRGNgOE1nftz5p1yhWS D2IJbqFJAoUzT3olG0M DBccGFyZFxwbGFpblxm czIwXGNmMSBBLiBCcmV ns3WxNFGnH1d2VCIrlP 9eNX1jOUQfOSSqd1IyO EIlE3u6IZFoCOZmnBAz YCLmBQF1LJPoLXFdCw1 9RGMzxjv7YNFjhOVkRZ xpNzIwXGxpbjcyMFxjZ hKbVs3mtOTntRjlZF04 JDKwmAlhSIgkEY14vAW pZWRccGFyIEJlbmlnbi KzzEQ3BVnnOOCnkHzoi Yv1pKS7vFLbBKNjh4Xy hQ1jRY9qwIFuoVUquIN wuS1lFNKeXZMtO0XulB 0iJZ9eYQE0j1OlPbSpI OHxeSCuTE4tQWOsXXO5 UVDrBCUnDGEku0HnLIg zxcMnd30ibMQ1GQ86XD yzyJjoXgcjck6ozBZ2s JWkE2cfrfqqXSSuinzs YXJkXGxpNzIwXGNmMVx wYXJ9 Retained/Biomarker Testing e2jwqEGaFMGaxPX4VuO (test code = 9838) rNEJhm4bnz6BdjTDnkH EaPNelsGLzyrQaxw57o NT3hP09XI3aEPVxRdI0 IBVrmeX4Sdh4LQKbIUO tlMPhT184z7ijx4dlnw CaiMJ8tQfqMMFqdpgqB pK4PWskFOXvvxchQPg1 BTotIRJgjLL0PXJkvKF sJ0QzUCUwNO0lcqu6VN X6UJpmTPVyQyS2TXRgu WUwEURggEijEIhwa377 ZLH6AiDtFAQsjxBvwXe zkB4wFbIwSFAEDhqgZH BTXHBhcn0= Informational Points (test y3kmfQPqLTLhaXSeNtY code = 9836) bFTMjZHQds3hsQWFafK FuZzEwMzNcZnRuYmpcd RDoIJXlLgGok7cdq927 kNVru7obZRIcVoV0nVH mNMFezBVeF064TEFsPQ wyi8jlh7JxYMUogXEgq 4D7HEMYMHzbFKDLHIv4 i6ukAgAqYqI8aHAdMVl yJ1npfaLqmLEzJSPgNA z0vU44HHZosZ5vpNJlK UpqaeBxQyK3KZeuKYJq FdC2LTOagRXeTGZwB9m yZWQwXGdyZWVuMFxibH NqSAN9sArss1G6hYLze GVldHtcZjBcZnMyMiBO v3YfFGv5rUshB6HrZWR nNbM2cPSxKFKaZIkoKT RlHGAgckU0vV31SRpsz jF2zTNmu3Frq53oy840 rE4yhUMpZLX8WBRcJBA vyFBtXUUgHVI4ZADiuW WwQ1hsILAqXD0woxjpE HxaLOnvEYNyjDS6RUQe kCGtX9SfZICfSIffKZU krsy0EjWbMa2deSJarP hgZBfxg2aej8sqxLYtB ky6YGBrApSgPgbzMNgm t1Cel2inXFNfph0tMMV 2pAVvwQjgc4P2oPTyKZ KmxZUxhsMgIRQyxx66e KKlaBZujJOltm1tpvPv eAOwjECcFIJ6sJRwzwA uXGZldDRcYWVuZGRvY1 dpFmYcmmJjC2giM3SvI HJoZWFkXHBnYnJkcmZv u1Ser9FmlXLpnZp4v0t oHSYkJPInoJwvd4lhLD X1MWPtA4F5nOVqy6nvS JgwIWFjtEF8wuM9VZKw rZIwK3HptQ4hYFKqFS4 nhvg9j6mmGQA0MXsfHX MiEiU7pjZ4ZFKwfOEbF OXlhTziTFkxm464BGE3 WtPdPAUot1ZkR3FboLq dN89gbNmrK39lEGRbzW abkO4stSeysL8mSyXmS nMyNFxxbFxwbGFpblxm VWpcywG3PHppgdfzENA eADzxS4csUrFvJYMxaH ztUThdc0ZsDBUnLJJaU XxeoUOAs26bAXGrr1Nf VBWgdQ2naIUhVDaymtX dpEU1WIeckqEjAgIfbc JeWESvlH0uGDGkET6fQ EFxgyDfwq0nkcLpYVUu XRCoA5TjcekzuGkvjpJ aHENavx9pzzDlART3IV CDMU7CYSPgMSCns17gS QFpzOfziU0fkCKjwbIh VWRjy4EelW5mqIGUWOF eH3osVR6xAElca3HrpG SxwFWloCC5QJDdu4HkN wQqxfIfyXQpjEHiW7Uq zJvmE8nnLHZdCDOzjyL hvUNup7JwTYXfuBV8nG AyOF1NEhMQb16rUWXzL CBEcnVnIEFkbWluaXN0 lxK7yV9rVuNCnVntJNH ae2Ldh1YxQDCnmjHbuz FfHYV3CQdcbMXmjvlfN GnrpmH7WCnhtoujKLKg ITdmP3ucJmCpIUOttOt rYGdsl6AjZMInOXMmRm dkchP7QHv4tbTkIAdeY FQoB7UhGESqiKdsPFLw eSBBcmVhKSBDeXRvcGF 9tI7lm5q3JUpqLm3mDV OzhmpfwHdfjX1bVsOrI hGvCDhqCS9wNYTnV1hw jMLxQTXjKPQyA9ehDyW llN2swFisQTnpPgSqRy MxOFxpICwgXHBsYWluX GYxXGZzMThcbGFuZzEw MzNcaGljaFxmMVxkYmN zMCMkMGvqK5osByMlJ9 QyFUXaDAflpUHpW6uho SAyXHBsYWluXGYxXGZz MThcbGFuZzEwMzNcaGl jaFxmMVxkYmNoXGYxXG mzX9puCqOfI4IsAFWeX ThcZXhwbmQtMVxleHBu LXP6JQVaoHEnZ9wejWO uCTKoQ5CaVvZWdrXaf6 U4HEJamFUlSRCOLZFgk HImL8v0vTrhXLhpPpn0 NzMuXHBsYWluXGYyXGZ zMjJcbGFuZzEwMzNcaG ljaFxmMlxkYmNoXGYyX EbxZ4rdApBdUpOwFcun YXJ9 [facility] Tilnqmvzsy7199-04-21 16:49:09 Test Item Value Reference Range Interpretation Comments POC Crea (test code 1.0 mg/dL 0.6-1.3 Medicati ons, = 53334-6) especially hydroxyurea or supplements, peterson ch as [...] chemic ally sensitive biose nsors on a [employer] ip that are config ured to perform spec ific tests. The microfabricated sensors measure analyte concent ration by an electroch emical assay. POC eGFR-AA (test 61 See_Comment Normal eGF R >= 60 code = 57406-2) mL/min/1.73 m2 The eGFR is calcula anny using the CKD-E PI equation. The e GFR declines with a ge. eGFR <60 mL/min /1.73 m2 is considere d as "decreased" Thi s equation should only be used for pat ients 18 and older. According to [employer]'s Ki dney Disease Outcome [...] dialysi s) [Automated mess age] The system [employer] generated this result transmitted ref erence range: >=60 mL/min/1.73 m2. The reference range was not used to int erpret this result as normal/abnormal . POC eGFR-DORCAS (test 53 See_Comment L Normal eG FR >= 60 code = 82241-8) mL/min/1.73 m2 The eGFR is calcula anny [...] dialysi s) [Automated mess age] The system [employer]card generated this result transmitted ref erence range: >=60 mL/min/1.73 m2. The reference range was not used to int erpret this result as normal/abnormal . POC Clean Dev (test Yes code = 6672) Performing Lab (test MDA Main Main Ca mpus code = 47946) [facility] Cli nical Lab, [address], [place] [address]; Prosthetic Dentist: Zakia Aragon MD Lab Interpretation Abnormal (test code = 69328-3) [facility] 2021-11-25 16:06:16 Test Item Value Reference Range Interpretation Comments Submitted Clinical History [id number] (test code = 52282) mbGFuZzEwMzNcZnRuYm pcdWMxIHtccnRmMVxzc 4ZvQ8CsSwBxYXeadyEf XGRlZmxhbmcxMDMzXGZ 0bmJqXHVjMVxkZWZmMH wgDv9amZJjgRxiRsKcO UJoi5xftiZGcmrudHv6 b3lhKCWhRbV5wBAzTKg qH1caerKutSHuNPAdHA m2gI79XMGbwQ3viSOxQ QkonoJnUoK2MYdrYMEk QoJ5PZXlyNZzLQPfB0m yZWQwXGdyZWVuMFxibH LeGXE7xDlqm1A3pHBek GVldHtcZjBcZnMyMiBO p8RpRHa3oTozZ8JpTUO rHjR7vYNoCQJpUHweEU FjTHNwrnS0oR13OMonp zE8jWLsu4Bfm79cb604 rI1gmAKnFDR6OELrCQK knFErUNNjNPQ2XPJypT OnZ1vsSEUzGY6bfjufL HslYSlsGYNroBM3EBRh wFNvO1SgOHIuNWeiKNS vsqi8MxZoGx7rpRJsfQ plFPtrx2xll5topTZcE nk9HZLkMuOmCyevCKms a1Ucu0qpRFPiqr2bSIH 7uNZjvFfae0M9dJOlEG CasUTpwaOkDOWnDlA2Y VuuRO3zmn11MGYdBIK3 la7qoRWiwZoygxWwmTJ nXYilK9BjXIUua838CK CnB6ZxFRPvc9V9uaHxU nDdQARdfTX1roN0SSPd CMn2tLWigiM4kqScdTT tK1luzZ1oXGCkFY1rdv kto5exHNezQPqwUDTse WA7lhN1KWNwjLIuM2Jr eV4rRBChKZmcBLHygxf 6MhWjCc4vxSGxfLocJE xzYmtwYWdlXHBnbmNvb nRccGduZGVjXHBsYWlu XHBsYWluXGYwXGZzMjR yzAhpcNzheA8oMgQtUh FjCEmwMN4qKTRiG3uzi QFgXLKeGUGcV5dsGsWe zP0gcRfoZBaahqSvDS4 wpZ3eH4SncZt9ZRGqpq 0rtNRoOEyCYXGrOB1sj XemaN9eIiZsXlFuFgdy QG0iABJbZ1ruqKYcBSQ lEKBgW3ibHoYbjQ9ilJ pzWAzgbxMfCEHnoj92 Diagnosis (test code = 34) l9towPZuQNKujMU0ZpT gZCUof6rui0UbrYShxQ HoJYfqcNVqvyNjgj55y EE5vE47UI6xZDZvYjW2 JRKkiyZ7Ivq9OFGtKOV idVZsB474p1ukr0bksz TxpNU2IDAcSZJoU2OxS D9oJOKhsWXzQ80gsYJk LRQ1IPRoPQNgmNWsWCD zZVD4UJWonSIrX0dqDL LbPR8awgzhUUdxTYurE SOtmES8GPTkdBYrC8Gb QETxJLwfPUCgmzt3KwN oXe2tkEAywSywIXsjIJ JkXHBsYWluXGZzMjBcY 1XiVIW4RBWwKYTzzKla zxlzeMVjXGMbY2e0REL yZWFzdCAxMDowMCwgNy WrpTGJOxfqIA55RGQvE FKprJCwFvugLY8hb9Dg WIAneBTxz245hzMiO3Z pZGVkIGNvcmUgbmVlZG spPHVdh0RjmCklbJEuT GxpNzIwXGxpbjcyMFxj IqTqRJ1YNWBJFyJjYZO PLSEGVXCFMgJKJu7PHZ MVOhHMUbJFB7VbWThXS 4UNCI2LJSOjU6CKIWYo MywgTlVDTEVBUiBHUkF ERSAzIChISUdILUdSQU WLPSnsA4iYFTGYJCOCZ 1BBUElMTEFSWSBQQVRU QPULAJIXNY4ZHQXMXYk ZNNyrLB6TFKmVMHJKXW RVQlVMQVIgUEFUVEVST dSpW9MEFHZJQE6MYsTt LlxwYXJcbGkwXGxpbjB ccGFyXGNmMSBCOiBCcm Dzk5ZvJPBoV5g6EWWto NvpvZGfkeBhn1JtRAR8 BUEwNMVuK65pLr0bLUD gT20fqSDizEMeuFPorW UoszanrDl3dyGrd6KnZ U4vxFexGQFkR87iLYSg ESCgpADkMyadnKT6Zbc vHHOuoJk0MhJxyEklUa AkFXFtIDKRGyHDT3nBC ESPQJUFHRueJ3BOL3dG Y23ROA8JJPBPXVJNLSp nNLmFCB5NH5cEPkINQx FERSAzLCBOVUNMRUFSI FqLHSVBQLHiDOkJA3yw Y7JQACNjIOUENIJCQC9 DT8JKVHJJQMmTDVKJBZ SVKGALMp1oMMDNYLtWF SNsJ0zFSEIXX7jtW8PQ REUgVFVCVUxBUiBQQVR FHREFRPsUPBFoU69FNV VOVCkuXHBhclxsaTBcb OwzNZzpYBOxR8EnDWV7 FOs5cRSlBG4cEPJewgu dUXGmE8h5NCEvtJgohM FyeSBsZXZlbCAxLCAxL rsuL37fSCPxcYUbt960 bdWiA4VxNNDzKIZwkkI mzoSbWXtkNJTxa6NyeP pccGFyXGxpNzIwXGxpb jcyMFxjZjAgTUVUQVNU SKRQSqBKIVSXV8ICReE SAp7MKFDVDRFFHP0gL3 8XTRuBPIYIXC6SHJStL ZRgOSbyKCUDMXPAW45B VA2YQJEwovwkvACviLa zMEbgBAPsO5AtTXT6KJ JyZWFzdCwgbGVmdCwgb ILmxNQoorHyf1LaStik MCwgNSBjbSBGTiwgMS4 5WHRdAR3mg0EgGDZcbP Hyk065mxNuF0InRFDvW GNvcmUgbmVlZGxlIGJp f6PizTqxeEPgCXsiSnD wXGxpbjcyMFxjZjAgUG 8irXpgwwKgIiX3lURmP UZxC5StmyAmQ9wfqNC3 aXRoIHJlcGFyYXRpdmU oC6gjkgnjnzMzt7FzBO GgsJ5tkxKfCbrtFGThe GFyZFxwYXJ9 Comment (test code = 9835) t2ytbXNcKLXmqED6XwG gUFUax4lhs3ZkkHKoaE WsLVxtiCHzzhZetn90b DJ3fD94FF4cYKStTrW7 YUBjmzK2Aaf4KHTqUQM eoULvT258f0vbt1ppqo FldEW1BEFqINA5ARtkn oMmvtZ2GZhejJMtLqD1 W7fpEJGjBAdsEIRjDWz ufVDyTGv1AHYomTDfkt SxOdLqTZGpqPExxGP3J LKyIH2zupzlICjpBDzi CKQdhfB6ULItzMOkU0N zRPDiST8qjuguESC7FE vjPGWxIUJ4OfYxKUFjz 4Tkxeb0FyTmuZZeENim bGFpblxmczIwIFRoZSB wxhCyh3o8ZHHgLBSsuH 6aeZVsGAXqJc10rIAda XRlcyBBIGFuZCBCIGhh rgN1j91iKQuzfGutE3K cncKriShcxY3qy4ihOe TfKLP7WBZrqsjioF00Y RPlgzJpkSvont5mFLEu bGxhcnkgdGhhdCBoYXM baWrotJ6ivySmDVFpoi QgaXMgYWRqYWNlbnQgd Q4pS1gwb0AdFxGodqDv c3b2KKM7tNZ7mIXpSCM ywQQdqh8mjMnhtHHbAV WwbB14YIymFPNlXyPiM c10hONeDbR3nCZxKHZf dFO1i9uqA2eoNGZfwMG dfy7xIPtxajHvuCNvad VfD6AjQIIcV7AdlR7uJ GD1RtO8wEYmGOMrFKQk V9OyDfZvPIGjjQ44KvH xHAdiAF9lsNMogOOjxY UlnB0rvMxfYNK1dKpiN HV8ZE9rCNUewWSiRYQ5 CmTcQVMrxJC5eZTptn9 bM34sIPCisnVjqXQgyR lzgAPtkEnveTO6eSPid B09GVKjvxCeaIfsty9x SVJtcHbpdhjwqVV0oHT wrcSdqaJ9tDXjnjgwoB KsQsVgQHT5DYXzbVdcC AXzwWDoy4XhhBVqGBSr ZmZlcmVudGlhdGlvbiB nnn3vKVB6QfYnPFOzK3 YyG2qsv16yPaQhZFPlr tlyCOLnDZ8jrH1iiWcp gA3lnJIygNKdaYEmfCE jooGmi3CqAGGlGYQbp3 UjDQVqv85nrOhbm4MyS XHoY9Lri39oQUDjs51d p0KnO2phTY2iZJ1pPKH cGYHwPCHxeW2qdAXkw8 Nxg51byRvtJQvjiwWpo 2VzIEdBVEEzIGFuZCBt SR4tIYcgu2LwuqjwT22 jVbpuaTpuLiC3rYNwyV XmjBHtwIDbjklriT4lI FSDejTkbS96wv1nkADo gaUuf7EiFGIOOQlvH0s wsIiklPQaHW9xk7ApIV gfLOtlU1HowWReBQ0mO TEvXVHfd9UlMDWrz66x wVIirMEsGT97UIG5eHK jcmPtOV2tEYc6fJAyu3 Bvo3C4hFBpGHqmdsUrm S3iEswdFCFptCRxPQCv tqeoTMZhSRSmt18kthu zkxPYACG8cIHlEkodTJ PlMcYawDu9zWTjUZ1tj K2sdKixhD0vhACmcPAs bCBzdGFpbmluZyBpcyB mDIRjt8NcKZCwrH2nn9 VyIGxhYiBvbiByZXByZ NPzgiTarIw6KYawVMDp sIYePJp8oOz3ZDIfqMN wmKEpvWhzYqebbWV7FI mfQqgfzP9edXDRLQNON acBTsrhevKvTH6VSOLE AfUEZB49KlEjLEC8LMb xfXtcZmxkcnNsdCBcJz LezQ4ZOAXuJuMkqt6qv IWaHMLyEELfTMI5yA2i ECOpw8ysfSSoZIwzQzd cbJVtbeO7FKsPUSRKPB eRFpSpIE2iRWqRS6GCQ pM6IpCsNIE5HTalhEvm ZmxkcnNsdCBcJzFjfX1 vhNcvvY7msCtgktOiBW Mqnue3ji95GLj4xvCyY wLmKDBonFFrSVEjM8n7 cnBhZGRsMTVcdHJwYWR kZnIzXHRycGFkZHIxNV ozuAPyYKS7JOBxKOJmR WJmPHW3GCYrJnThorUf MVxjbGJyZHJsXGJyZHJ mJOZfVXR7NCYmNwMpsj NmMVxjbGJyZHJyXGJyZ VYtTZHuVUR5VQZnPzAr cmNmMVxjbGJyZHJiXGJ cDAUfJPRgMJZ5BBSsQs JkcmNmMVxjbHZlcnRhb AFoW5djcLIEoYU8zFDz E6u1N8emtYlpMgNtHXK hkKz5OeH4WLgkvCIjZQ H2OPPlDNAsUQDdTYO4A TBcYnJkcmNmMVxjbGJy ZHJsXGJyZHJzXGJyZHJ 3MTBcYnJkcmNmMVxjbG JyZHJyXGJyZHJzXGJyZ BX8RFSzAeZopgZbNKcb bGJyZHJiXGJyZHJzXGJ eYGP5GISsVeYkhiEmDF ohlOSobsUpgLLzT2omi HNIyWF7bEXrK7w6G9ji eQp3FlQoFDKunRx9RAU 1MFxwYXJkXGludGJsXG WifUIsN1FoW9pgDG3eB PplJ49kc4lbHsJkG6Gi bFxwYXJkXGludGJsXGI zABTcl9ApV6C6GOXiHH pcn6ahOWZfWKvpg4RwN ThDRPASQT7QQY3vbJC7 YUbXABTBM9oPcQA8KOQ okHB6Ys45QQAcHZAiyM KnQJfqI632CN0ETYWJT kUgRFVDVEFMIENBUkNJ Yz2HSKztZflltJB4RXf jXiydgJ1quEQMGAXFZc lIEyrnvrRnVQ6UPVBWM L3NmPZ9IAIxtCG4Ek98 KZOlUSFmeMVeHEemQ98 5PWVgSWnnHVHmPwOuI5 WduJqyxeYacUbap3cdh TAry3ShoSGoFUXqIxfv KQUopRHxNRabBHu6loX hZGRmcjNcdHJwYWRkcj C2TIRbGcUzfoFfIjLnl nNcYnJkcncxMFxicmRy F2ZqRIVqXuGpcwnfBxT kcnNcYnJkcncxMFxicm MtF5EoNPGoSzVoqeFbP nJkcnNcYnJkcncxMFxi zsXeD1GgKGSuCyEjnjH cYnJkcnNcYnJkcncxMF quzuEyE5LbZJCtvkCio IAnxVxliPH5k5itZPOb H4dasTxDiOK2qFOgABJ tC4BtdVhaFsRjEABxUe JkcnRcYnJkcnNcYnJkc zlpJMpaogRzK8KiVDIq YnJkcmxcYnJkcnNcYnJ miqciULkxzlXjE6AfMQ NsYnJkcnJcYnJkcnNcY iIndncbCLuyqgFmB5Mg XGNsYnJkcmJcYnJkcnN cYnJkcncxMFxicmRyY2 YxXGNsdmVydGFsdFxjb PS2n6lyFVAqU7ctiZnU mSH8bOKaORYeJ7LefVb 0UDOrZQDyjjLebP58Pq xcYiBTaXRlOlxjZWxsX DOyjaKrrM15QtfgRfTg cHJvdGVjdHtcZmllbGR 8ACcvGprakG5vlJUOOG FBXjdBClsskqYcFE2FP DTJExXNFF37YgCmFGF3 T8qacMviWymtyrMufZG bZcJfmQ2YlFbmkLDHcs Fli7V9YFNnEWeww9aeH YBbFHkqn8NpVJnMPVHJ WE2VUL1wyOS7XLdXNPX KTXdhDpTcV0fuqBX4p7 vabVCxp4k0YJjoQOH7b VxwbGFpblxmczIwXGNl dGnsgV19Pxajrs93CTU if8mnCUUfkakfCOYisB JwYWRkZmwzXHRycGFkZ CdvTVz4jtDtZRAcexAw aSMjNRLrziQ4JRMcAeS kcnRcYnJkcnNcYnJkcn vxFHorefTrS5IhKFCtM nJkcmxcYnJkcnNcYnJk uviyAFmctlUfQ2WwLXI sYnJkcnJcYnJkcnNcYn IgvbxpFYfcmySdI8PwI GNsYnJkcmJcYnJkcnNc PbLtmxbiKPrfbuSmP3S xXGNsdmVydGFsdFxjbG R3m0aeKAQyJ2oyxNiZu IK6dDIrFICuI7OhbPlq MzQwXGNsYnJkcnRcYnJ kcnNcYnJkcncxMFxicm LqA2IpTIGxFaVcqakkP nJkcnNcYnJkcncxMFxi ioLjV2EoJGHwZqAjnmB cYnJkcnNcYnJkcncxMF wzaaWbF2AwHBYvGkDrf mJcYnJkcnNcYnJkcncx PDdybhOgC5ZqSYRyhxJ pqOPyqYxaeYU2e1epIM CrB8euqFkLmKK7tGOhK FOfX8RxzRc4KXJrGQSq kxPakJ25IsycjAo1MvJ cGEM4RQmwVLtvJWdwOE RlOlxjZWxsXHBhcmRca D23PddzNkPguNGebHWl zObxNsocxUF5WTubIzb riT6rcGXWEDNTSolZLb eiogVwQW3CTOECSvXNK R53YuYzLRE2SGs8wYua ZmxkcnNsdCBcJzFjfX1 ZZ7H1DYYpBTypb4ijGC PqDPxlo6IsJLuWNCYMV R8FPU8gwIJ4JOqLGBXT HRiuZwPfQjx6iDM0v4t zjOXup9i1WQleAFX3pH xwbGFpblxmczIwXGNlb EpiqZ88Fkkyev64TIGe n9unJQzif5Yec6zqfEY wYWRkZmwzXHRycGFkZG pgLHg9nvKmYCGkqgLmz PDqBMHsaqW2SZPzRoAr cnRcYnJkcnNcYnJkcnc cGJtmfwXrY1AcGFUbSx JkcmxcYnJkcnNcYnJkc vfaKMoexiDnV8YmKZQq YnJkcnJcYnJkcnNcYnJ lhmlaYNjicjDnG9XyAI NsYnJkcmJcYnJkcnNcY mOrsgfyFMufbrZpW4Ui XGNsdmVydGFsdFxjbGZ 9c3ncLFGyM9opmOtWnG C1aDKmILKyP2YpwOsxI zQwXGNsYnJkcnRcYnJk cnNcYnJkcncxMFxicmR xN7FjCOBpZaQibnnjKl JkcnNcYnJkcncxMFxic dTrE0FvTFNwDsAeznTi YnJkcnNcYnJkcncxMFx vozWkU7ItUSPzRvGbhx JcYnJkcnNcYnJkcncxM DrpqqYjC4CtQXEmtcJs sZFjlZytwJC6y4tsJXA rX2tedQqXoJX0bNTwZB PnF3NqwKj3ASSlBHKrk pOblY27YqxfoXy0LpEz BTM5YArwZNkuFGYjo6D xITJeIaSgT9BheTwcES JkXGludGJsXGIwIEEyX TJbaVpruF66Bkvboh49 XHBhcmRcdGFiXHBhclx oLZPeLAK0HVF6DMuiPJ Ohv54ihiitvlwpHEimr FNbJIOaxjXXh3Wpn4hd biBSZWNlcHRvcjogXHB bhxa9ii63HQq1doBtWL njQQDwnVVbNUUkJ3d1q nBhZGRsMTVcdHJwYWRk ZnIzXHRycGFkZHIxNVx qdZVnIMH8OPIyKYHeFC BgKTQ0RMNtMsMbpzVtR VxjbGJyZHJsXGJyZHJz IKZpCFP4ZTYcCxRisuP mMVxjbGJyZHJyXGJyZH UvRHCjBPH5TDPbOiLge mNmMVxjbGJyZHJiXGJy WDKvITPhBWF0IKGyRqE kcmNmMVxjbHZlcnRhbH DqO9yfgOZMyBG1jKBtQ 9n3X7pgbMmaFOlwJGXu sIz7PWx4MZfilRDeOJT 6OUZsMKHgVSHxAPA1VK BcYnJkcmNmMVxjbGJyZ HJsXGJyZHJzXGJyZHJ3 MTBcYnJkcmNmMVxjbGJ yZHJyXGJyZHJzXGJyZH J9VTUfQeQrqdCzZVfmm GJyZHJiXGJyZHJzXGJy WTZ7WIGdByIbhqUaSDb xrBSfjhGjeLSzR9cgwZ COtLZ8jLVlO1h4B0jkq Zs7ZSxpSSQzmOx9EMZ1 MFxwYXJkXGludGJsXHF uDGVxDAzjUN33yJZxJN thT1pmatK8ZCqhBNgcG DOlvyWkgM11GyiuvYSc xGLjnVkgNpjvvHI7YCp pCoinqA8fwGXVLWCXKb pCUctjftBdAK8HADTHB pFKMS15QbZwHEL4NNz6 fXtcZmxkcnNsdCBcJzF qiQ89RwToLEjRUBazOJ n5TFCoBJplq8xwHVWtJ Hrrq0RwKRmKZPHUON1Y TD7suEV5XSoPZRIWRWq xUiGeBUa5hBQ5d8kxfR Pzh8v8NBayXAA1nCsej DEaglczZHQcPiQgU9Hl oGufkvTraZvog0zqvWR ah3DdeSAbiPGoQZg8vf BhZGRmbDNcdHJwYWRkb KO3GGLbaJOqBYRzX0l4 okHqVYXtFNOhX4zavpQ eaEvddpQbq2glbkTmrv NpZQDtUWIfPwZiK5ycv sUybHlaxjRsw9sfjrVg eyTvDJKuUJUyCdMvE0f jiqCinxqvorOge9ifyb RydzEwXGJyZHJjZjFcY 9yngnMvXhjoueOnn3kc cmRydzEwXGJyZHJjZjF zB2i5RWZ4OHy8XEWkAq HkC6vnaUnsMNWvt6crR MVsCXh6BIomDWjyfZY2 SKBsU1hmplIhqAclewS ex9ljogVciiAdFBOkYL GdMdNtS2pbloHurJwco qMzg2xemcDovuOjSDFd AQJqKwOpJ9pdhdHpjus lypUmr4tjhaQulxXrIP LoUPLgKgLtE5ymnmKrS kuacpLbi5oceoGozpTf HWDrTJMeSeMbX4g5KZF 0ZPy7MDZfJtQkW0rgiO tzUVHwb7kgQZMdGbD2G XahPTeatNp7AbJpsCNw ZFxpbnRibFxxclxpMFx vXPsyPMFknyKocB12Qi cbvNJEd4BavZk9QSS0F DExLTEwMCUsIExvdyBQ b3BwjVo0AWA6FZOzBWZ wNASxpYdioT32Pxsfsw 95MCHdw8jxPONyrylaY TBcdHJwYWRkZmwzXHRy cZNxTLfxVUk5tkEpDTF wncDrrHQbPVFgryV3XX NsYnJkcnRcYnJkcnNcY oPpibioSYidvlXzR0Ks XGNsYnJkcmxcYnJkcnN cYnJkcncxMFxicmRyY2 YxXGNsYnJkcnJcYnJkc nNcYnJkcncxMFxicmRy V7BrNLVhWnQtfsCnPzD kcnNcYnJkcncxMFxicm FgT2PbNSEoxaPjqJLpo LrcmMA4b8soKDCqW3zn gHwMiMO9lMP7HEJcJ0F sbHgxODkwXGNsYnJkcn RcYnJkcnNcYnJkcncxM NhjauQbX4KlROEvZeKn cmxcYnJkcnNcYnJkcnc hIWqpcnVlO0SdMMVsXc JkcnJcYnJkcnNcYnJkc dkbTSfsphOsR0MzCZEe YnJkcmJcYnJkcnNcYnJ eriroMMdjezNvJ8IqAK QhrdWmgZNhcNtvnJS4k 0nqQBHqR1rdtVeLsLS5 rGC9PqRnU0NbmAe0VFU bEYYmtpOybT93GckbhQ BnvGNgM8JggQhkRUGnK GludGJsXGkgUmVmZXJl yaPgAyHSdApjo08nGWB pQKelLGVtF2muSQK4oV 9sIExhYiBNZWQgMjAxO VxjZWxsXGludGJsXHJv u4k1nb36ELv4wcSbNgT hSYNlbYEqCTPiN0o7dj BhZGRsMTVcdHJwYWRkZ nIzXHRycGFkZHIxNVxj wMNwCGW3JRLaJQYvOJU lYGC0POUlXcHctrIlGW xjbGJyZHJsXGJyZHJzX HNjQWE2PNUtUfRtfxEx MVxjbGJyZHJyXGJyZHJ zDFXpWQE7PBUzRsWpps NmMVxjbGJyZHJiXGJyZ YHjIPInWQQ1WQGzTmAv cmNmMVxjbHZlcnRhbHR fH5gmfSTIjEE8dRDdE4 b9G1sosKgjOAwqEBRdg Ia9CGd8AAlvvIVpXUH5 PAPcHAAwEIIyERO9XQJ cYnJkcmNmMVxjbGJyZH KnQNRpQIVvSLIkYEE0Y TBcYnJkcmNmMVxjbGJy ZHJyXGJyZHJzXGJyZHJ 3MTBcYnJkcmNmMVxjbG JyZHJiXGJyZHJzXGJyZ KZ7MUObVkKppyTnFYow mYDiywGjcBHbU8xjlUN CuKP3vEUkU5s8H7wzvG l8ESvmRYUlhAo6TVN9R FxwYXJkXGludGJsXHFy YGEdoZUpLvXxbFd9cyf eS0WhqClyNRYqZXbnyM DxNUSxZNGwv5PdJ8H2X CHoDJfoe8grRHXfYMuz j5BiQUkZEDSPHS2QEX9 fzVN9ARuKYPEZM1uWhK Y8GSW4zWN3Hi08PVLlF DPguPUzYHxvN872QG4q jDBeygL1LPCgREuxg1g eXCRaEMynm3DcJImPVE DTIE4DAF4hgEI2QCnUJ OMKFOcqVnWzFYs4xKC1 i8czvQOsi5m4SHjmVQT 9fVxwbGFpblxmczIwXG DtwJqzyO06Epzneq96V UXcd8ydZDFmzipfQvLb dHJwYWRkZmwzXHRycGF sUPcfFDh8hmDxCPOtky NtlLVtKLMjzcW4ORMcI nJkcnRcYnJkcnNcYnJk ezulEHgipfXkO6DqYNJ sYnJkcmxcYnJkcnNcYn FuaphdDOfolmGiI3XtG GNsYnJkcnJcYnJkcnNc CzBbbjbgLRvbgvVjD0L xXGNsYnJkcmJcYnJkcn NcYnJkcncxMFxicmRyY 2YxXGNsdmVydGFsdFxj gTT4a7uzJRBmZ8bggOe DiEH8qTB4HAHnI5LhgZ gxODkwXGNsYnJkcnRcY nJkcnNcYnJkcncxMFxi yhYjE5ZeKIKkHkNypai cYnJkcnNcYnJkcncxMF vaigWwA8PvUACsCdIbq nJcYnJkcnNcYnJkcncx XRahbxRiM2YsLLItOyY kcmJcYnJkcnNcYnJkcn nkXAqwpqOkS8NsGAVbo jNtkPHvpGaqaXV0d3lk FBBoA9brcUjZoGY7wTM 6YqHkV5PxpHh3OXZvWZ YzdhSqgT97BoxmbSXqS lKSYBDrPB62JBE4BYal iX9qRgokPDxqRGUycjO geU71VknxNjIehWXeyE EsnFugJvbjiMX4YNnsD qgkdT1gjCODAQWTNceY PtjagkCgBM4MXBQMXvP GDO83NzAhYkB6B4c5xF tcZmxkcnNsdCBcJzFjf V3cZPNjW8ZBUHVvFUXz g3VyA9Iya2ejzCHdCCj hPskniZGgkkM3MIlBCB ZUAAyZAbBmSO3aBNyOE LSUILyFAss0sGixNovh frAswDRbQoAibD47NCn bIadfuRW6YDxbIntteX 5zdCBIWVBFUkxJTksgb bTvUW0BBJhBHV3KdMg1 k0xnqUZmz0j7QFbqMGX 7lUypkFPwosvyqm76KS G9LCGcMbOlIDM3LRHbA Thhp9siVCWxOBbzk5Yd SNpCEYXJCE5IUY0fjKR 9TElTVEVORHwyNjAyNX x5uHd9e5hvqEVwz0z2A FsgVEX4gWsfiVJfjjwx kiYhVTWgkIfcdI05Kut pct24QOEul0xjMMLgxT IwVGKmM2h6egNsDKDeF TVcdHJwYWRkZnIzXHRy cGFkZHIxNVxjbGJyZHJ 7NTSvQQIxFOWqGOR9DJ BcYnJkcmNmMVxjbGJyZ HJsXGJyZHJzXGJyZHJ3 MTBcYnJkcmNmMVxjbGJ yZHJyXGJyZHJzXGJyZH A8GYEiDnNiabBeEDlom GJyZHJiXGJyZHJzXGJy KAQ7NUQrFoFmihXdJRi dmLZqlrOmaMOqR1exkP DMhFM3yIOyB9l9E5ysw GbqRWtrLKGyaKg7PBd2 ISogpDVbDZZ9VWOgIUV lSLGxRGP5GVHnVaWuxr NmMVxjbGJyZHJsXGJyZ HQpXFTlEWV1FNSiJyAm NmMVxjbGJyZHJyXGJ gCHScPARqTLC7NVSzZu JkcmNmMVxjbGJyZHJiX YLvCLHiNNJvAQG4GBAq YnJkcmNmMVxjbHZlcnR ekOFeV2zxjGQZwPV1lO EqR0r5R0tmzXf1MYvmS ZJguUc6YQD9FUgyJPNw DVlpwCWuVTYcLCTeJ8F sbFxwYXJkXGludGJsIF DrDZCil14sWX01QLIfb LdexZ96Itdrxo58QAGk q0bxCMFcgOKdMTEbD2u 0cnBhZGRsMTVcdHJwYW RkZnIzXHRycGFkZHIxN GoauSCsQSR0ZGVxGIMu VMNsLZA8UQUoXaIrsoH mMVxjbGJyZHJsXGJyZH JoIAScSOR6MGDpHiZwr mNmMVxjbGJyZHJyXGJy MXCsOVUeRJU7QOWkKuJ kcmNmMVxjbGJyZHJiXG PiTZEvMUWkYTD9CUVwQ nJkcmNmMVxjbHZlcnRh uSDyJ2uvfDUMfUU4wDH pJ5o9O8wwoAraBZcaBV VfeDd3MVw2MRzmgKXkX RI0KOZwNYCuWDUwGYS4 MTBcYnJkcmNmMVxjbGJ yZHJsXGJyZHJzXGJyZH T1NHFwBpItjnBhHWwpc GJyZHJyXGJyZHJzXGJy FWK9PSCcEhSfvhUpROl jbGJyZHJiXGJyZHJzXG QwUMF0XNPpYrTygiBqY SrqsSUzekBetTLdL6bn pKYHwMN8nIXiF6a8H6o snXb2WDbgFBDiwQw7WA J2EXgbXDEtNKzaoXLmL HFyXGNlbGxccGFyZFxp laYnhKuggv68QUC2l0a maWVsZHtcKlxmbGRpbn P0WGiWYXKVHRcUZtRmZ R3eELpVQ7BMVNuELlot FiPuRbn2sIa5f6btbAS iv0x6OAobCQW8yIZazO JvcHJpYXRlIGNvbnRyb 0ycTOFtBYQvddLeRI85 WE9kCNMdIRJykYriIC8 9DUHyXQhpg7pjTJHrHF jyd9DsATvFKDHFAD3WO A0hmKZ1BZdKQBCTSJed FvFaGhh1eTp5k0ichIF mf8d7QTmaEFT8mHeubJ FpblxmczIwXGNlbGxca T71Xqzofs74PXLmw2gw XHRycmgyNTVcbGFzdHJ ew9a6hoWxMSOvnROmqG QpDNPmtCZ0AVAmrUXsT GUeG5y3hoZuOLXaLWWp Q6ahkrLffQildoGcs6r icmRydzEwXGJyZHJjZj XrY4fjvuBhoVcadoLjl 1xicmRydzEwXGJyZHJj RoJqC7fjeeHahyrbhtX bv4ravaDnkqNjGKQpLT EiCpRoD7olyvTsFdohz gTrk9kxdiQxeoZnPDHc JJPmCzCjW0m4ZRF4BYr 9JJXnNqReV4hufArwRF Ngf2ieCYCxYBj5WInbP AqouZN6LFLgW1mfdgKo lMgzydIgb6gtvzGzugN aPSReZHUkGyQnR9fwfa WobIsgqwVrv4pujsZil aUcJERsSNNaNkQqK4nx esNbjjurgxQse8qavnX ydzEwXGJyZHJjZjFcY2 trrlJrUboauaPhc8oxl mRydzEwXGJyZHJjZjFc I0p5CWT3TWb0LRCkZmT nT0otcQisUROtl6hwVO CfDuS5QSleDOiivDl5R jBccGFyZFxpbnRibFxx naltVZG7KHckMGhtoQP wb1n3xPnuI0JaxTsjGA JkXGludGJsXGIwXHByb 4CrE3I8BCRxSKhvm8ql QOVwBAfpu6ClWOzVRVJ JSB9NSZ6hqDH1ZShXWC DQM9xThYG9DEC0sYGdi DEwfXtcZmxkcnNsdCBc DxSqjW9SqDUoqai7SKL uTVrtz9vzESRfOIpke0 GaCFnJCNZKIF3CVE7lb SJ8UKzXJPYKVSncGyXe BziiMNlxSH27YKNiYLB vyZUfHHanG419VEIfWQ mkIHDcEbKzQ4HnmZkhf eBroEixp2kueWElIYjk DHScvAYhBPt1aDm8VYQ sHolwZVVvRYTtG2AjwH Zep30dKACtM7QloH4tX jxzYPSdcOZey3NvhTCy sGEjUZz7ciIhUSDmkSM ixTDbKDEfwMI6WROgrF AuRINyX7s7pmGvBDOpH KCbZ5gyhpUjfQvcupHx v6smwgJrmvLlCFStBMN lIkQgI0phgvEsnKmdlc Biv2qghcVrhrCfTZVnV TMnEpPxM2lhssSayczu etHvz4edhoVzylNwUQJ nTLAsCaDbR6pgflOyOe wgohRfg0xcbjZodrErQ FOaLYQlPbYyV4a2ZEV7 YKc9HTRxKrLyL0uknKh tGQEoe6rlRQAmMPkrTB ciGDdufQQ8CCTpH4evt cSvjErzqxTnb0kalbBa geCiHJAgVMVxIcAtT4n whlWelOoisiMuz5rosi RydzEwXGJyZHJjZjFcY 3cnjjYvjbyfmhRkf5nz cmRydzEwXGJyZHJjZjF jW8uidkGjXfbtiuLus4 xicmRydzEwXGJyZHJjZ sZqI6i5VFZ6IWn4JYRp OsEfR6bpdGioOXGav1e eAMNyJtY4WKguXJtiyG l6SrRrwKUoMTdqmuUeu FxxclxiMFxpIEFudGli m1O0IGWoy71nLxWvN4I sbFxwYXJkXGludGJsXH Lvn9TfD5X5UUQcDVuvh 3utYIIcANpgb2VpHVcK AJMDGU7WAN6yjQV9XLh RPRJQW8hBoTJ7OPZeeE ExfDExfXtcZmxkcnNsd FBvSqPlpB1AJzOoSqZv TEMxX2Fbl3blhENgCUv iGfcwzVXzlhJ5EJnHJD NRCNzKMdNsLA7fHTkPH 1MYJeX3CjGnQQE4UJC6 ZQG8m2aazXXob8v9ETx mICC4gVketXNrpairJL CuIkHmZ2XbkWkeymSdl Ubzh4cxpPVgm8KweGMx wNE1OAw3acKfQJJlwLQ geJAhLECbcWQ0FCVduY FnGDKzW7s4kcApHGQfF PHhL7wedkYdbJpmaoBv f3ysluRkylEvIITfONK nJuIbR6dbkaMcoUrius Vzi3qnubFclzLtDIAuA YYrYnReK3ukvrZmfnda xyTlu2xdysJfvvSqGOA tCHOkVfGdQ0bberRyGl jgnsTjs6smnuVfohAeD GCgNLGwOcCbF5u6IJB4 DJm4WWHrXpQmD1dmcEp zXIPis9pwDJVwZQbcYU qfLKitrPQ2JUVpH1rpj iWxpUbpiaUpu1ywtnNa ykAyFXEtJSLwKtSqY6d udoBskNqukfEee0ewqd RydzEwXGJyZHJjZjFcY 8ceikRcuckfvaBfb1mn cmRydzEwXGJyZHJjZjF xK4qoqpVsYwcgaqGlg5 xicmRydzEwXGJyZHJjZ uJbA7k6AZJ5ORh9SJIf QhJoW8xgqGlrVXZvl1q eKEBmBcF1XFzoIPrzvZ q0OeAnzHWyQGpcrvWnm FxxclxpMFxjZWxsXHBh mbDcfU51ZfrrfASJz3B prSa8BEB4MEEbGEFxXP OnFPijaxSBh5FofRr3O JA6CAZjXKEwE5PxpWbm buSpmKmoy6wmbMSdj7Z xvECnnIOqAWf6ysYiMG HdhRNkcMLcJFJrqAR0N BXvuLNdOVWdL4b4kuSf HPExIEKqM4abfzOlgLp snvXse9sifqOmmeKzUQ ZoOQIlKlAsJ2clnsIjb WysdnSta9utqrWwunHw RPIiSWKbPrXnG8bxhjU bfioqwuEtx5xpjeKjzb ZdHREfGULgXtUqT4ihy dUxBkevneUra2eqrpXi ypBjVHAwGQYhRkBqE3e 2QBX0VKn0PAZnVdBaX1 ieeUfwZYIhg1yjMSBwC EmiYVyiLFzxfCZ5STZy R5enkhPigEfqzsCrw6t icmRydzEwXGJyZHJjZj SpT2yiwnBleGiegaOyl 1xicmRydzEwXGJyZHJj OzEaH6oqncDamifzbeP km3zucaNwnfHjRPAgCQ XlVjIjR0bmduBoFmnyn xAhf8cqhdGiwmOeXRYi NDXsJlFfS9k1KJM8ZRi 6LHJeKfNsX6jveVehSH Hey5leMTZzYfW0FIorY OtmtQd7UyJmhZGcYFac bnRibFxxclxpMFxjZWx wJWEkdcUadW58WuaozJ DDIKGitgHyA9L0ZNTsb MZzqwTttUJqvV7xAJIm hMKWDHVwv2adQIVpFX9 zGRQcQJD1SRFemGbkkF 71Rsycan70LOPac1xyB HRycmgyODVcdHJwYWRk ZmwzXHRycGFkZGwxNVx 0cnBhZGRmcjNcdHJwYW NchxK5LMTtIsDfylWqT nJkcnNcYnJkcncxMFxi czJzU5OfDZCePjLhacr cYnJkcnNcYnJkcncxMF knrnLtT3TjCPUiYjXxq nJcYnJkcnNcYnJkcncx HQrqnsDjE6AaTBVjEiB kcmJcYnJkcnNcYnJkcn toINnjogPxI0KrFJHdj mJbvWMedDzkxFI6c7te MBZtL9wnxNbEjYN6tZM 2JBViQ6YxcXzuNRtwJA NsYnJkcnRcYnJkcnNcY cKeypksMWijirZxJ1Qh XGNsYnJkcmxcYnJkcnN cYnJkcncxMFxicmRyY2 YxXGNsYnJkcnJcYnJkc nNcYnJkcncxMFxicmRy H9PdCJDhYiPabxKxAcM kcnNcYnJkcncxMFxicm BlS9EbYMJecjJhdXFpy MjntYY8c3cqSFDaQ9mw vJwTtYB6rSD5WUAhS0S xsYr3KUKvYGMdomVviF 50YmxccXJcYlxpMCBSZ DT3xFCmNbLxV4YdoSyk YXJkXGludGJsXGIwXHB eb5OvX7T1SBKfNOyen8 pjXMNvCByvm1KzBGkMB HHEEL8PNW5szLO2SHnO MTTIR7rVfXF2YBOrkOG yfDEyfXtcZmxkcnNsdC ByMtFerP3Ud6GkfVv9I DurMizbhFE5IYsuDabc jS4svBXHQGHIXvfMRya ftwQmZU3MWWRMVH7CkX T6LGKlzGEibUMypKpzH xtruiAwpVKqOzRtmX9f rXbrjY1iAaLdFDgeUOh yIXbpqDVwBOHfx1c0kg 92GKy5lqHlFmroPIHwi OTuCLVqN9n5xpLpOGEa MTVcdHJwYWRkZnIzXHR ycGFkZHIxNVxjbGJyZH P7XBHdCZOqIPRzBCG4H TBcYnJkcmNmMVxjbGJy ZHJsXGJyZHJzXGJyZHJ 3MTBcYnJkcmNmMVxjbG JyZHJyXGJyZHJzXGJyZ OK9RTXuNjBnqhEbPAeb bGJyZHJiXGJyZHJzXGJ uEHH8QCMpQbNsdjJjGA wlbKRddpJwhREgD5zwv RCCeLL8fFWcW5c1K2ts bCcfFDiwHODwxHp6SGo 4ZZhluWTbIQQ3YVDpXV JuHRFbEBQ7AVOpXhGvk mNmMVxjbGJyZHJsXGJy QISvXEDvLBM5VMDkJbJ kcmNmMVxjbGJyZHJyXG TvLDUaXTCfAJH3GVCcU nJkcmNmMVxjbGJyZHJi PUDiKUCdCRSuGTD2WXT cYnJkcmNmMVxjbHZlcn BbsTQpA9lgxDFLnPF6s IRrP8k2J4uqbRx5BKcd FOZpqLq5ZYR9SAchSVB kXGludGJsXHFyXGIgUG GsS0VzhEGBbRDojgudS dbzN5CutXxiEFWbZWfp wRYaJIJaVYYns1JdS7H 8EUNqDRqwa7sbNOReCQ iqo9VvPTqIHZVKLO4PU D2ziSS9YHmHOTWCJ6zK gVU4CQB7eMAgdPYemTv cZmxkcnNsdCBcJzFjfX 1uHSVhF3XQFQWsRWAxs 1NyU1Iea6jkmSDyRAsv TjlwdNPticA4TYbFZIB KKXdBOoWdEQ4eSPiXGJ PYPOlQQcigKC79ZLFsZ XUuoXZbNIcoF382DLm1 ROJeZOutf0uuLZEfSGz zo7UcGKkUMTVJDL5XLK 3aqDW0N7bOXXWYPMgnS X67RNEiGJUhvYGcCLfr R410AEUpLAvgFYYdb5D kO8EgCnScFVQuXDgtEj vopCA7ZXjcXsgvrD0qz CBIWVBFUkxJTksgbmFt JY1TWXSFSW5RyIE0ATE 1fDEzfDEzfXtcZmxkcn MobPZrSkIpkR2qhIkri M0zBrRgLOyvAIqrBImt wGVnNHIjg9t8vm25FMh 0cnJoMzAwXHRycGFkZG MgF6k8vzLoEVLbDZRaq HJwYWRkZnIzXHRycGFk ZAMgLGjilDZeJLP1GVJ kGIWdJJQfGEV0VMHpRp JkcmNmMVxjbGJyZHJsX ZLrEGGbDMUhXWR2JTGu YnJkcmNmMVxjbGJyZHJ mRKIpSEJeJNKmBYD5IY BcYnJkcmNmMVxjbGJyZ HJiXGJyZHJzXGJyZHJ3 MTBcYnJkcmNmMVxjbHZ fssFagQTdJ8hgqYVHvE K5mQIhL7d2F9sctEoqV XiiCCEkzMd2SNz0ZMis uTKkHSB0SDVrSVTdFYQ bCQZ8CBOhBeMaakUmAA xjbGJyZHJsXGJyZHJzX LCvRTK3KHBlOhAxmcRt MVxjbGJyZHJyXGJyZHJ oOQAvURG4OZLhIaWxhb NmMVxjbGJyZHJiXGJyZ MRgUDLaSFY2IPOmPwBc NmMVxjbHZlcnRhbHR mP4rziDXTgCN2oBTxZ3 s1D8shsEx4QUcwAHJgt Lh4AGJ8GIudCHOkSCrr aERxCKMgGEAeO6GduJy wYXJkXGludGJsIFNlZS Stv71aLQ12LTRjlPecb H08Jnirhq22UUZah6bu XHRycmgyNzBcdHJwYWR kZmwzXHRycGFkZGwxNV d6ktWjXQPdooPetTSxV TTbhtD7KQHaSlDuojBo YnJkcnNcYnJkcncxMFx dhhSpS1RpZCUsTyGfxj xcYnJkcnNcYnJkcncxM DbzvoQxE7SkJGAfSbFn cnJcYnJkcnNcYnJkcnc pSVeyblSbR4IuPVXgDm JkcmJcYnJkcnNcYnJkc nmnYHxsrhOlD0ZhUZVy tpFhmMSklKcvoKQ2d9q zKYHnC7afrRuQvDY4kB O2TIPoT4DprFvhHAebN GNsYnJkcnRcYnJkcnNc LyOokhspUOczoqTpD3Z xXGNsYnJkcmxcYnJkcn NcYnJkcncxMFxicmRyY 2YxXGNsYnJkcnJcYnJk cnNcYnJkcncxMFxicmR mT1MkUGHiMyWeocFdKt JkcnNcYnJkcncxMFxic zDwN7PxKAIqxbMxrWAh uAokbPD0c0svCHYiK2k uqTxCxDL3zRR9YXGvM0 WyrPn8IANvPWUfexXgu S41NgjqoDNaM2TxiYlo SYReKDugqHUyLQZpg4K mL0F3ALFvLNwhp0vlNL CcAOfnt0IaNXkAIXBJX B2RTJ6oeFV3PAtTOBQV G3iCzRT1QGE4dRO2hIW 1fXtcZmxkcnNsdCBcJz YsiV4AkCHmg6ZrbED6M DNeh306ou5tuyWdfrHq oCYgn4XlmKLysuI3vMJ mx5miKJFcp8sfaUHtNF nlYlowwHNrrdR6EPtMQ HORYJxSGbWfWR6pYPdI M8OLKeD8SbRpDgV5NFH 8ERB6s0qhfOGcp7m7LF peSJQ7rKepwXWfmaqpn eBeBZLrbZydoG23Ooiz ac56VGBxl8chFXAapnh qDtVyhICmqMQhv5g5zq BhZGRmbDNcdHJwYWRkb KN9GGIfhQVcTIRvC3a0 peUkHGOfGIDnD1slgfD iuSvdyvJpi1vkmkNzfg OaWFOtZKFbUdFpQ1atz xGedLqxefEza8nyzrFl vuQcJUVySCVcYvYbQ6h ysiIjktmmxdFav3ticd RydzEwXGJyZHJjZjFcY 6ednvNuVmhputVwn7iu cmRydzEwXGJyZHJjZjF aX1l9TFK3YIf6QRDgBd DzG2gzvEqfUOGhu6dgQ SSuLEu4JVygXWbjqVU2 ODIcT0cycwGevYhazqY pn5knfbUcvnCcKMLxNY RvFlZuI2uywhPmfOcuh mMaj7tiogEtinVjDFVh MEXtTsZzG5jqjnUqtnw zbxBdr3sbzrGjnhFlUI CeZQXdAvSjJ9xuoqBbI nwbpaTes6axeeRyteBo UHDfYGDxJfJeY1n9RNZ 6SHj2QHXlOjUmI5fmzC rkFOGpl1nmHKRoEtJ1E RpmWYnuyVr9IvYowUMb ZFxpbnRibFxxclxiIFN 2TKyxaC7wLGjekJMpx5 k6gAmeF3HazVeaZLDmQ LlrhHNuZEMsDOFrt2Pz F4G3WSOrKTldw7dpYXI jHClds7QlPHhEAJKCAF 1NJA4uvIH3ITmYFIMZB 8zVsUP8NGTepJM3qIO8 fXtcZmxkcnNsdCBcJzF cbI8WkLYxrws9HGExVE dvi3reVFRrXGnbm0TwK FvTQKNWUJ0SRS3yaBC1 TElTVEVORHwyNjAxMnw eFoqfZv58EGQdGENfjC QvFGgmP193JWVtNMemA YQdJvWpA6GkbJsvepNb rTbsd7hguYZuPLrqLHY qdLEpPFl2zEt4BEEeHt xwYXIgSEVSMjogXHBhc yf4ho52XTj6tsSsOKEc iJXboBJpHFVdaHY9NRX qqKIoSHXpG3i4xkAsCW SwAUOyF0holhIibIszt eBls3lcliUafbMxIDZn JLYdEiGxT3ehrjEucTk bxvQax3mydaNzhhFiJX IbIBZvLfCgI5qdfbDke xcvufLcd9wzckPfseLn AXVbTMFlSqPlY9fgdhT pVmrqupNlo1geohEtxy FvWBVtKFRyWxWkR8x1P SI5MAg7KBYgxOXcyNQ6 C5zieUksELcfjZS9d9g jIAKuE0naxTuBvID8qI l1YSwsH0RzfXt0LPu2V KScmlHixO09PmdjqLKr cDJccXJcdHgyOTcwXGI yPQjvR6PuJPTesCyhy0 P1KCVzw92yXsjaLTU0B 9BitVnrwx0lDHL1cBZv tACcEMPnhz9ybOXqROg spiGpsNhvtCSmWkt2iO O2YyGaUIQ4LXfVNK19H L9gXKLscTs0AXraOM0r a8UpQDiko6ixc23mu6G 0YWJsZXNccGFyfVxpbn LqwSkflYUiVkk7JHwdo mVzdHRhYmxlcHJvcHNc cXFjb5MciWHixFXca7a 0cnBhZGRmbDNcdHJwYW MfwAV5BFIpcJOaHFEuO 7d8knPeDLGjPKSvX2iv uxNowPoetaZfu9rhjuB ydzEwXGJyZHJjZjFcY2 llweDooYjevuVtj5kzi mRydzEwXGJyZHJjZjFc O4xzgjZwynynyiBws8l icmRydzEwXGJyZHJjZj FgA1dxabYcCtnuldPay 1xicmRydzEwXGJyZHJj AgVoT0n7CBP1PJp1DHT oJvMlS9zalHnqDIBwz3 yoFZHgJXO6RObiVOgic QN9SlIxC0cqamIjfMzb rwZrx9oeznUazlMpFIH yZJYvKeFhB2xmjaWtaN vgfnFvy1ehgmEjobGdL LMkRHRrOrYdC2jgsrUk kqxhsqNov9ntvyMdgqW qPFPuLEZjOhOpT9qkep GlAodmxqCoq8pqhyYsj pYwTZHlGFCeRcRoU5j6 GRT6PFq4VLVmVoYuN2p avOitHGTya7kvKPNaOe iaRGhxCKsnmDg3TaVun qAvnAJbi348BW7fibQj kXBwIjywi9uqAUE6yGq wYXJkXGludGJsXGkwXG NmMFxjZWxsXGludGJsX SGui0j0rx51NTu7ksQo FKOaLFj0zaDwFXDcmJU hgSUsJPYhxEX5SDWjaU QfNQPzB6h9daBtDWPhO HKvH5sqvyLtkIgpcaYu o2mimnBhmkVnEDTvDUJ vRgCwH5rmiwRxmPtthf Mgg7ouxwSpxsEeWJYiN ZWpCaObK4qfejJabykn vxYiw4utxuRxufTpEZU cYNDsUrEpV2ldakMqBg sowiDop3zwspMyylPdL RMpSAZpKrQwB2i7AWG4 LDy2LDMbdNWdvAL1S8t qsYllLQrhdNL5k3jwER XiC9ntgGgMgPN1cJf8Q VbcM4XsoFa3HUg2QPAf cyLmoX82QgefnDRalGW zhiNbrJGnrBi7FE1xle UbaAQyUusgj7yrOCU4Z TFevbCjdH26XdormKKr cQKenIzjWdLhNZ1ojNS iflRhA9VuIUUjBFYvQQ Xfr4JyVHqvgNdeS2lcU 7IcMlByKR42cZLtUQ3a yUOjKH3vDJP7UZgkfJ6 jXRPiHVApkCKrY35jmR fmlHIoAFsxrYEgh6HmI VKnRCX1lTQqlK3iAkIn OFXvRzD6uX4rvtIzJJb mqjTzN1RsoaSyRsufFi BcSwDyZXCuynLaG7FvN XMgYXJlIGRlZmluZWQg QARvqMzwe6Fhk8c6dTZ ubyBvYnNlcnZhYmxlIH B7JPsikK0lCXRtceAnA F7esdHhZAKsqSDwadzf GbD2tSC0IIexOHhzJ62 boVlwhXJrVD4eCAkjJW EucD02W4WkgmThtFHoI TCdSPO8aPQsXCAcovEz p3n7oOpcQLntt4RivAu qffBgfiLzmTFjrNM5mq DiERZlz5XajPNta0WnN 9RwzWHrQACyk8AgTQSz IL1sYYlbC86xyFdkwGU vmXOcVjHlwjPfl6VjeH 5pbmcgdGhhdCBpcyBmY UthbJ8lFSUkeUihoAFv O1OucXmpeQDtBK9uRVt pdGhpbiA+OMSlGT5dWO C0tF3pAJYibMphGGzHJ 29yZSAxKykuICBFcXVp ya5nNDnny0InwE8eLGY ora5nfxF8UTLgTFCpgc EaslNcmCeat0Cwo4r3s EEozQDscS6aGOLbbaEe HFmrxRSkVtLwrbFrm8O ysY2kbiojcHtjxKDwax BpbmNvbXBsZXRlIGFuZ JObcgP1YTRfVM0okY4v DFPzzYIeNB2aRKmyjZg pbiA+FDFvEB3vKEP6yZ 9kQXXfjFsoQY2fHWWfr XBsZXRlIGFuZCBjaXJj pY7iKAGftuNuRBfwySM cJgWfvxNni3MmuG4tne cgdGhhdCBpcyBpbnRlb xEoYJEfZYH9yLTgkU9r rUKrcdE1zGUpQU1nPDZ xdWFsIHRvIDEwJSBvZi T8dR9tmbOvGLmubzJcX 3PcwdXeUvshZemsVWI6 G1NuoBwnmz2vKUT2jKH pnJAoMTCgfy0qaG83Ue oynYKtdFU9w9slNP2ot 4M4FOCkLNBuc8KbTRPn w9lvMBHjjJQqCQFsX9o 0cnBhZGRsMTVcdHJwYW RkZnIzXHRycGFkZHIxN CvxjQHpWZS6GBFuZYLi JCKwBJN3HOLnLhTxadK mMVxjbGJyZHJsXGJyZH VhLKXzEPC9TREjAsIpo mNmMVxjbGJyZHJyXGJy XRWoCTSmJUL6OQUbYcD kcmNmMVxjbGJyZHJiXG KnHCCxMJMeFSM0ZRQtC nJkcmNmMVxjbHZlcnRh rWDaD1mgwULApLI7zCK tG6i2T3kbbEhzVxMqN7 ZzmUfgZtElC3himgOle ZgkscTxj3ijkcMicfAb CCRjWGRyOiVsX9ebydG sbQcbjqKzi6pdvsZpkd NnPLQkYABnCyPpE6ezk kWcigomglUfu7votcOm olFlXQPfEFDjRvEvE7g rubJvAjlvuuLct6phwy RydzEwXGJyZHJjZjFcY 0r7SFF1IWc9ULMbFrXe C7bscIgcXZUig4eiRFR gFOH2XMloWDjcuTq5Mt OwgxGfyXGst822LZ3dj cDotFCsPxrvx1ifCXB2 fVxwYXJkXGludGJsXGl 0YXAyXGkwXGNmMFxuZX S0T1LroCfjoi1xNML3w GSocODmACRquh2uaIMw ZFxpbnRibFxpdGFwMlx pXGNmMiBSZWZlcmVuY2 W2YJepxAUsUAJ7HEFjT xHARIXssV0dP68dr2os ReX3YhJwBQ0sNkyrIkL iCWwvWYI9M5BkyJeywv 1zLCX3sFLlvAJpNTYqd q4jaY58NrcqdLIzqZV1 h0cjGU5cx0T3SOIzHVX um3UvASTna3yjJPqqb5 Rnd7hrdTQnMESrGcrlN YYgpBKhHJpcKIa9yeMr ZGRmcjNcdHJwYWRkcjE 1XGNsYnJkcnRcYnJkcn NcYnJkcncxMFxicmRyY 2YxXGNsYnJkcmxcYnJk cnNcYnJkcncxMFxicmR yX6JdMKPpFwQnytQhYe JkcnNcYnJkcncxMFxic lKiL7AkSNSmKsOojxSy YnJkcnNcYnJkcncxMFx mgfVxV6JlQBZwgjWldY VrtYtbyDM6v1wrEYGdB 6ksrXqXvHL3mCM9OAfn JGompQO4OZdptADtGWP 6HBBfZZFfSRYfPQV2NR BcYnJkcmNmMVxjbGJyZ HJsXGJyZHJzXGJyZHJ3 MTBcYnJkcmNmMVxjbGJ yZHJyXGJyZHJzXGJyZH A6KUArVgYkgzRaKUcgb GJyZHJiXGJyZHJzXGJy HHI9NDOvCwRbjxAsKIf xjADpfeMdmUUvC1pytU JRjRJ1wHWgM8t4C9srz Ip8GEecCVBveSn6SUHa YGzeKKM6yj56oTvani8 zBXH8dSKmjURlIEMjff 28MUWntpIdbG11Kscyv IEzP9LiPOTrcTwdpU32 Ukhdpy62RTNuw8qfHHG ycmgzNDVcbGFzdHJvd1 h3wfAzUOEplXPelSPcM POvmKO2ZKJcdEThOTZl N2z0wsKuKVNvJDDpY8e kevTnjFafdmHhq8lvoa RydzEwXGJyZHJjZjFcY 6nitwFjkPcojjLds8yx cmRydzEwXGJyZHJjZjF gD4mbbgWxmgebgjFrd0 xicmRydzEwXGJyZHJjZ hSaT7srxfJkLwskisJw u2uwvlDtiyNkHRFsENC aBlJoJ7a7GSP8ENf2MX FghBJsqPR0G5smqLsfZ CrssSE3k0slHSRmW3tp sEsRiVR0mUw8SUtdE9M qkLk5BIk1UAUmguFfhS 50YmxcaXRhcDJccXJcY jvuXyIvSgLxnGp3gkev vaMlcPXccDs5QZ7yydF swUEqYkntv7zeCGG3PC DsjeJjqV87PyxojNVlh KBsUcQpO6PzCPEpi3Rq P3W1IMTePGotl3luEBN xLLcfw9EcYUlDTUQXMH 4IGC1uyDH4IOhHCNMKR 3dStFP4XEA7xPA3oQX0 fXtcZmxkcnNsdCBcJzF drF3LCGfgoQq1OLwaCo rneMR6ZTixSdhcvU7gd CBIWVBFUkxJTksgbmFt IT9LXGDVRQ9AkGI0XWE 4rMK3pED6kBxyLaxlzk WucLTjDdFkcW1rmHtof H0bPhCqENxkWAJ5Z8Ry tHgskf9gMJM1iONhcJT yPHMewk2qjV17RzfqeZ PyzZJ7y1ptPW4jd8X5D SLnTATfz7ThIAOqk0lq XHRycmgyNzBcdHJwYWR kZmwzXHRycGFkZGwxNV m2aoTmGZSrqeEsiUCkM VIhroS3QOQsWhPlikGl YnJkcnNcYnJkcncxMFx cyuBnU5SlRKXeTsKpbv xcYnJkcnNcYnJkcncxM SqgtvLaK2NkRBPkQtIf cnJcYnJkcnNcYnJkcnc ySTlorkFgF6AyKTPaNw JkcmJcYnJkcnNcYnJkc btxSKgkbnAqU2ZrXWPd jqXkrHMaeKddqKU2n3k hIMPsE4vmjYfYeMF6dV M6DYcxI2DbkAsfJUytQ GNsYnJkcnRcYnJkcnNc UcLbqywkHKmvfhZgG5E xXGNsYnJkcmxcYnJkcn NcYnJkcncxMFxicmRyY 2YxXGNsYnJkcnJcYnJk cnNcYnJkcncxMFxicmR qK1YrGVMjJlDqmfYwOt JkcnNcYnJkcncxMFxic mKkC1VhLOGqmoCbtSEt kOxybHD1g6fnUNRaI4l oaOeMiOH3gVI5VRpfT6 RzxHn9NCPaRZ4sd1Abz 9w5b8axh62cd6Z3AFZj UVOcuLBbcJ8vhROjPJv pbnRibFxpdGFwMlxxcl iwDILzDoBWOMSnWZ13H LY4DSsyiL3iKtsaAYG4 U0IcsXaqnk0jBNF5yDJ mfITcXYGsyx4swZQlSN xpbnRibFxpdGFwMlxiM FxjZjBccHJvdGVjdHtc JypqfWK5AEpuNkpzrS5 zdCBIWVBFUkxJTksgbm LtEZ1INFGOWcTJOF18Q oBoOqI9VRd9OMl6z8ro vEUib2n4SEzmHBJ0lCz zCMSkQLH8OOmdyV6jf1 xmaWVsZHtcKlxmbGRpb jI1INoIKNGEBNmXOkDe PN4eLNkCE7SDLzI1RyU kLxZ5OEy1PAs2u5kjfE Sgt5b5RXxiDFT6bRryp BYslbaoqaTdNU0jz4Nw BVaab4mhg83sv3D8KCT sZXNccGFyfVxpbnRibF esoWNaBoz8ZTztveMpb HRhYmxlcHJvcHNcdHJv e3QwaKJsLWMtWfwnGKF bvGRcKFscFVu9qvWdDO ShnoLcgKXbKXHwrwJ0G GNsYnJkcnRcYnJkcnNc UuPaatntVMhsiiSwG2X xXGNsYnJkcmxcYnJkcn NcYnJkcncxMFxicmRyY 2YxXGNsYnJkcnJcYnJk cnNcYnJkcncxMFxicmR rH1UlPKQcIgMyuxWmFp JkcnNcYnJkcncxMFxic vVlQ0TrWTBwjeByaTZq yHwshGV9q4gtTGLoJ8y lvDaPnPI3mYI4UXhtN1 VsbHgxODgzXGNsYnJkc nRcYnJkcnNcYnJkcncx MAcasxAaU9GyZDSgDiI kcmxcYnJkcnNcYnJkcn gzXHcmoyHsI6LtLMEtC nJkcnJcYnJkcnNcYnJk koxyJGwrupPmE7JgCJO sYnJkcmJcYnJkcnNcYn VhxsacRWbhhbUkC1OkF GNsdmVydGFsdFxjbGZ0 j7yqFDOsJ6kjlZoTnVZ 4yDQ9UGiyS1QtxVw5GK RzIT1wd6Wlj6t4y0kqx 50md5L5UUSnNOEybBGx hB2bfHHgUYnmyyOlsWv izBCrOkbhrddnDOG3A2 AwuKpmms8yYSE5yJRuq UKgMQPvxg6tpXMyYVbm bnRibFxpdGFwMiBTZWU iV91wjBMfoBcnZPQ1X2 ZhoTqjmd4wEZS4gEMfv EHjCKJscx3adK27Exsi sGDtgIZ9n8vcNQ1ny0Y 2RMIhORMhe0HjVXZfx0 ptWAGwyKFxUWToE3i1z nBhZGRsMTVcdHJwYWRk ZnIzXHRycGFkZHIxNVx seMAwOUX2XEEaWBBjNE SgFUG2CRKtQdVronChD VxjbGJyZHJsXGJyZHJz XJKkTKO5TBCbUuUubyY mMVxjbGJyZHJyXGJyZH JzCVWlCEG9SSYjFmUln mNmMVxjbGJyZHJiXGJy VKYlTTBhGBV1XXRiYcJ kcmNmMVxjbHZlcnRhbH BuJ1llgJZTuKZ7wKPjL 1h3H2uolItuLJr3TPYo rKs4HBj8G7hyqQVzINI 8FMMoJNApSDPaSVY8OA BcYnJkcmNmMVxjbGJyZ HJsXGJyZHJzXGJyZHJ3 MTBcYnJkcmNmMVxjbGJ yZHJyXGJyZHJzXGJyZH X3USZsVvWjarWrHZypc GJyZHJiXGJyZHJzXGJy OBK1NOZaXsLdxkDhDSf maHRofvGkoFUzT8ekrD EKgKD9cZQmB4h3A5sqb Lg6FFS8OQManBh5SQTp JPuxRPW4kp10tJzzhk6 pDWS1aJFihVVeAICvjm 95KNOkakRykB10Dpdsb XRhcDJccXJcYlxjZjIg O6OvhbE1WD8is7ZdCFq aq2zvb00pj5N2IGYdQF NccGFyfVxwYXJkXGlud PZxUZi9QGBpYXBgKAFa KBkeiv55HNS1b9osiAG oWFnjTdijlKBvkcL8EY mXKYJERXsRNwZgFN4tZ YnDS6KPHAcTIzxfKcLt FUdsCTsoFC58QCThVUN xmFCwAVrqT312UTuyEz phgYL9CHoaYypojO9mo CBIWVBFUkxJTksgbmFt CD2CESPMXS1HuCV3MZJ 6bDH7zGL9vAnyRtvtbf LpaVCiHzRenZ1fhYxza J4iQlOfASfcQGU4A1Ll tHigxb4eONG9mHUzzHW vPGRuob9aqG33HbamtB VkuNT5u1udNK5ec9V7J FBlTASbz6LnBAAnr7dg TELrqARbJBQgM0e0gsM hZGRsMTVcdHJwYWRkZn IzXHRycGFkZHIxNVxjb LFgNAD7EYEvOTUrXDKt JFJ9UPEiBbDhpiQmBXf jbGJyZHJsXGJyZHJzXG XgQSU8QTFwWuWdstAyB VxjbGJyZHJyXGJyZHJz DPBfTDD9ACWiVuOeabJ mMVxjbGJyZHJiXGJyZH SbISNpZIZ5XTEiFnQuu mNmMVxjbHZlcnRhbHRc E8ufaKMJeUR5hICjV4v 4L6fhnWvxIUf1CKLxjW u1MUs5G6mskDFmYLJ4T KPtAOTjGDJrSPW4QWVr YnJkcmNmMVxjbGJyZHJ wUFGcDSVvCNZoVVD6JR BcYnJkcmNmMVxjbGJyZ HJyXGJyZHJzXGJyZHJ3 MTBcYnJkcmNmMVxjbGJ yZHJiXGJyZHJzXGJyZH H4EUFhRaWqukCoKWgba UNwztFhnRZjZ7ihyCKU wBA5mPNxJ1z1Y0ebkWw 7ESI1QHPoaDs9UNMgQG fzVRW5pk96zColuw4eB FF1nOYxcHEzXSKtli86 IFIrcjYoxJ41MwzwcQN ieLZkjqLsxVOljDk3NE 4dumDpmQRmMpqcw4tsT BG3FCLlvsRnyC26Mrkb sFZuvPEqC3QzEWTmuK6 nacCgdvBwtFOpcRd7UG 8nhmErtLDqTebgf4wqE NB8MSqcfAIlBCg6DNFc s8itCsryYQZ8tLUltXD obc8ky0r6uc86PKt5xe BhZGRmbDNcdHJwYWRkb PX9QULdhZHfWUEdT3e8 aiHtXLAmRVOeS1vsqeO ebMmtdfLtd0ofidNqkk HuHQTaKPLtSgQhH9mum iTjhBeukjBan8sumuCf esIqQEKrVSOrPkAjU1n jziNqylpoaxPrz0xflh RydzEwXGJyZHJjZjFcY 4yoatChItsbsiVvt7bh cmRydzEwXGJyZHJjZjF hW0v3LFP3YEb1NVHkQq SbZ8umxUriWDYkh4tlI SEeFIw3DYjqJSjbfHY3 QAJyV3cyqgTeuPourrJ kb9lkspFxkkVjAUBcTH ViHoCjL2ipvxEwcMewi aTcx2lunaNktaUaAKJz ATOaCgMmK1xmcjXyxcf vcsBvz9poncUwwmMzBK RiVRCuUgKuJ3cgekXwD pfgcjBuw3ilurBqaoNr QPVuNFGvKhQxK3l7PFF 5KGb4EEHsIpUhW7qigM eyGCRjr5glHTXyLqS6U 3jnXJebnCp4RbOrzbLk hGCzq255LT4hlyWruMZ fYsgfq4bdNHR6eTytAG FlVVenzNNbPWc4ZGGhY QEsOAXkV2SpZRTOH0cm RXZhbHVhdGlvbjpcbmV qoHRctUa6RU2uteNwxD CaBfxha5slBMQ3YGSry iIryW76YksjgXPhxKNi YxMeW7ItGTEnf1ZrB8H 5TNNsSMgyo7mfSDClUZ hyo1CmLWtAHHZTEP3KE O9maTJ3DPmTTEMUS2oW wPP3YWR8fMFgkTGtxId cZmxkcnNsdCBcJzFjfX 2HIragXmqTRLS5lElwD W6vsZPrOSAcvwGovKH5 ALP8PEDlDPomv7wbWBT fOTayh0JgDYvVMEKGDG 6RLN4obBE6KRpBZSYKE OwsBfSoVIpeCLiyHP11 TOUqFYOqdQMeABtsU16 9XHBsYWluXGZzMjBcbm AbxOUcqKi6QM4hiqHyt FJdXrxsq6crUAM4EOxm uRYvPXg8OQDdt4pwDog bCCE7xXDjoFQhtr3af2 m7lo70HOe0owXjQgC4R Sknd1Ppx2sezGVoUTMg ZmwzXHRycGFkZGwxNVx 0cnBhZGRmcjNcdHJwYW LpkyV0HVVsEsXdgtSyW nJkcnNcYnJkcncxMFxi pgBbW3XyDHPeGnTykds cYnJkcnNcYnJkcncxMF xjkpJlP2KrHAUtPvMpg nJcYnJkcnNcYnJkcncx ALrmbaUrX7MiGCIjTtC kcmJcYnJkcnNcYnJkcn ksMEgktjYnU4CqUGBas aBmiSJqdZfkvAD1r1hj XXAmS2sytGlRiDI5nOB 4YSlfX4EhkTbdIKaqBK NsYnJkcnRcYnJkcnNcY vKbecqxUCgwqjUnC3Qm XGNsYnJkcmxcYnJkcnN cYnJkcncxMFxicmRyY2 YxXGNsYnJkcnJcYnJkc nNcYnJkcncxMFxicmRy M0QiXLAdGqUmboJpTrW kcnNcYnJkcncxMFxicm KnU4AsWUWqceIjxURqo IonbVO3m3ibMWZhI4hu dNwXdDO5xTQ2FMcwF5A qjVc0GGIjMD6hh9Wmb9 f4c9iqp78ki4A6QOVvJ SCczUTfoQ2aaAFiCSql bnRibFxjZWxsXGludGJ dDZIkz1ofOWOtPLS8QG V9POlbMZOagdBQOF32L oliDDSgnhm5xv98QEc8 cnJoMjEwXHRycGFkZGZ zZ1h3yvDmBOYqUWFtoF JwYWRkZnIzXHRycGFkZ CMdLGokbLRzVBU9ROQq YWHbDSIaDAA6RJDyXtT kcmNmMVxjbGJyZHJsXG IrDYZvNOLkOQW8YZBcD nJkcmNmMVxjbGJyZHJy NYBuSNQdJSCkTJQ6VCV cYnJkcmNmMVxjbGJyZH JbEWKbNCJlGAKwKNZ4B TBcYnJkcmNmMVxjbHZl mrUpxTTfN6ofuCVFzOH 2sPKyJ5p2U7vocFdcUU moAZRbpYd1CJu7FGwcj DLpLSG4CGPmJWYvKRQx JGY6CJXuIwIwhfXtODw jbGJyZHJsXGJyZHJzXG LnJRI4LZVmXmMamzBpV VxjbGJyZHJyXGJyZHJz NOCjCFW2TZItZiGeuaL mMVxjbGJyZHJiXGJyZH XlSOLgZVS7ZCXpHwSou mNmMVxjbHZlcnRhbHRc I4dcgRHJbRN7pHMzM4q 0A7gklSy6EKejXFMorK h8SLB5MFepGHXrCJbdb HCsEAUuDGUxOKfhCN33 kTDcNHizE9ncvqZ9PEp dSZebLXTdicGiwA77Tu wgTUlCMSAoREFLTylcY 4OxySsoddVntLiue3nk aVTcw6MshKNjuHTgKGx 0cnBhZGRmbDNcdHJwYW CfoHA8SFTmsBAcDFXpP 0m0reEjWGYwUEGaJ7of vqIqhMepjeCol0apiqY ydzEwXGJyZHJjZjFcY2 dejaKviEwisoPgg3eoq mRydzEwXGJyZHJjZjFc B6pbitAxrphhcqBnl7i icmRydzEwXGJyZHJjZj XrH2osgaOlPnwpgkXdt 1xicmRydzEwXGJyZHJj VkEaA8f2SJB8ALh9GMD gCtZuK0wvzQscJHWsq6 bjSVRvALe3XOcgBGksg RB5OTSqV2olguOpzJmh wtXrb9nqezEvrbXyNUY bLYTsVrOvV6yosbTrgN irkcVmg9waqzBtsmUuD LBqPTWsRoSaM4nnsnGx djosijBqa0dgzxYavbQ bRAYpTIBcJaFbI5uocv BhWwxhetKfh7gbymPoc kQiQIHeBJLhRaErR5i6 GID4GKx9BNPtPnCsQ1x kyYdzAJYez6unWIRfOh J8UPdcNPsuvHh5OfFmm GFyZFxpbnRibFxxclxp MFxjZWxsXHBhcmRcaW5 6YfcbqXCEo6wfXI2tjT WqvvEjZFY2NXxeVLXBy 3TpasV4UBHBv2EscGg6 EB5zBHeuPrUtOGLFcLv sPAEms5h6nMQtOZ0tYo L4CWjwIKgsWBobhDReN EIjo6u5pq53PKa6rrBz Jqr2FPOcqCDvXFEjN4s 0cnBhZGRsMTVcdHJwYW RkZnIzXHRycGFkZHIxN FgzpFRsBQD7YKYiLLUm HHAaYPP6VIGaDuGhvqU mMVxjbGJyZHJsXGJyZH NoNWIoPHD6SWXsVzVgm mNmMVxjbGJyZHJyXGJy ELEfOBKlADQ0UCVgMbB kcmNmMVxjbGJyZHJiXG OcEJIwLFJjEWM5BJJoN nJkcmNmMVxjbHZlcnRh iWAmP6elgXOVnTN0vVX hT3e1K0bavWwaCAuzNJ EioIb6OEd6XDxjaLGnP ON8PFChEQIoXJFsIIC0 MTBcYnJkcmNmMVxjbGJ yZHJsXGJyZHJzXGJyZH S7KULaBvBgvlRrELoco GJyZHJyXGJyZHJzXGJy AZU3HBCbAdGmfvXfOFw jbGJyZHJiXGJyZHJzXG YeRMI5RIQfBtRlcaBmC HdpmSItbvLlfSJsN5po yUHGxNB1mHArQ4v9R4k mgAw0BWyfTWQzrQz2CL T1CTekGOPqOJkxwHIpV HFyXGJcaTAgUmVzdWx0 ptlaV7ZyvHrcKGNiAMs hdAWrWHUlNKZjt9HkY2 B4XRRsBAkqv3wqKTUwL Wvzj4NzSGhJQLDCJO5H HF9pjGZ7AZjIRACMP4p SiMJ9ZKY6dBRpyBMenV tcZmxkcnNsdCBcJzFjf B0Ba4qwTMbnLxSdk7rs aWVsZHtcKlxmbGRpbnN 0IEhZUEVSTElOSyBuYW 4yJCmBF3OIBaL7KjFkB QM4PpX5YhL2x1kugLIq q7p6BGhaPON6xGpiaCJ pblxmczIwXGNlbGxcaW 18Gciyfz11AZTry6riK HRycmgyNzBcdHJwYWRk ZmwzXHRycGFkZGwxNVx 0cnBhZGRmcjNcdHJwYW EyxoP7DFRgDiLbjgKvA nJkcnNcYnJkcncxMFxi qpBcB1UvBQRbByHsnrf cYnJkcnNcYnJkcncxMF mcggCcP9VaWHEnIpZdz nJcYnJkcnNcYnJkcncx GHfdqnYgX4DxZVZaXbU kcmJcYnJkcnNcYnJkcn coBUxskzCaX9DcFJCyl kDgpVAzrIqjlNH1a1hq XJUiU0jhcPxHjLW4rYU 4UOFzM0OurRhwUNbyIM NsYnJkcnRcYnJkcnNcY zWaisudKDbcztGlI5Ym XGNsYnJkcmxcYnJkcnN cYnJkcncxMFxicmRyY2 YxXGNsYnJkcnJcYnJkc nNcYnJkcncxMFxicmRy D5PiXXSyEqYogaTpPeD kcnNcYnJkcncxMFxicm BoI1FfGVWtjrLdjGOop OlldED9k3owIMPvN1wa zTxGiEX5bNC8HgHjJ4U oaCy0PVTaFEFmtfQbmD 50YmxccXJcYiBQZXJjZ L95MHE0RZibkK8rMhow EGoxFCEluzHgxM37Qvd cYjAgMTUgJVxjZWxsXG gsjCZkNLIas2k2vg35E OfaLDW2al40VCDnkWPa YLNuW8y0fcKxXASsOHZ cdHJwYWRkZnIzXHRycG NrNAGjFLmieMIcZQJ0U KRhMKObXYHyCYH7SKDf YnJkcmNmMVxjbGJyZHJ zRMWnQKQrUQDkXTE7WB BcYnJkcmNmMVxjbGJyZ HJyXGJyZHJzXGJyZHJ3 MTBcYnJkcmNmMVxjbGJ yZHJiXGJyZHJzXGJyZH K5ARTkGfQaqlMhKYtfk OPmfnTvdYXwA1tjdTCE nJO5kEKaB4b6B5jmoEh sVTppJOGhbSa0PAh6RX tjfBUyECJ0DEVqTSXaN IIhIPY5HRBwEzUtreJm MVxjbGJyZHJsXGJyZHJ rKERnUYO8FYBvXlQuoe NmMVxjbGJyZHJyXGJyZ PDyCYQhJHY8JPIxVjMl cmNmMVxjbGJyZHJiXGJ yBMPlHSTtKUT5AOYcMq JkcmNmMVxjbHZlcnRhb PCnX3fnwKBYzUU3yOIy B9z8E4lwyNe4ASliWXD rmAx2RBG4JVokMZDgJH eozFHnNXMuENYnB9Ndl FxwYXJkXGludGJsIFNl WACfe71hGR72PUYjxCd tgC68Fkhvdy21VNPqdb SsdEu5GaOdFCDfuHTqR ESrccHwtJh8JmXoXNVy ZIAcyroxMKIpYsODa44 cHQ77IuZopEAhBENaHR NmMCBTdGFpbmluZyBvZ iByZWNlcHRvcnMgaXMg xXKmuiJmL5XsXOPsOCI ud4AgWQTeTAGxijPxk1 r5LWBadWWuw4DvjHgpf GFyeSBhbmQgdHVidWxh zgIhXIH0LZPjpj7tMLY oTOKbNUYdNG91GPsrPA X4APX9BHgmxB5bIComs uSsZJSivT5xwQkmWEcm yqKswHXnZF8uA2NqoJZ vkUntEBM0BOCcrZPrtz 6mJF7kGHStGLjtUVZhR ZUiagGfm7l2DDA1eXO0 iSGuFYHvbIVnqv9nOUO trtshDNAtJuNWi413no 90ZTpccGFyXGIwXGkgQ fWzLAE4QIWfULCmoZKm skG9f2FkLPRwoeDiEXJ fix4ayeleRtSzlx1gqb 2ykGteQF0wiNBgEEfvm Ah9NGHwRVVzVVDqKMAx IQJjiNyeQJCnyuZzx6O mAHdqocFcx1MrTFWnnO Ykc5XuYnTgp7RezuIhk jKwJ9IjTXSjyPs4LPki l6KglHibiiE7BAYmo0M fjqzsZuX0YCDxev8mzY mqRUBzsCQ7nY6oLDQ8T 4AnPDPjLIlyzB69paJd v56szK5vjZHlkJHnIZ2 kIHdlZWtlbmRzLiBccG MbFGUqrgOTLmN1yENoh 1WwE6isSE4qnAAbQQVe BF0qPfn4CKEwWf4sKHm yajbtkiJ7yKUqFGkdSB cshGStTTUaIQ3vY7G8w XZlIEhlciAyIGltbXVu d3cbz6DoQ2tnfIydFEd yTCqABewracLusTs5QD 7usSI4wIIptrR5jUIxn Xq2YNNdcKBgk1ZemDWh HVHdhFKlEW3wN8Z0eKO jOUDydITeo2PrdEJzuH EunMGzGHpljxLkn5azx 55mfQfhySTvwHCnwL2b qeDgQ5GhNGFtLWXegWD aEHOsirJsuoWpw58yNL VrXUFdl7Gug4Otf0r9l E36iXDhOhNsQ4Atmsmu RArBDHD8AMonrN9mCXH hq1CfeNIpTMYoUXFsBf 4uHRxlXSNcQHgxdLc8V OXkvdUdhJc1ZXVom5Ec DVNxTFC9ACMzCelvQIH ieSBhZGRpdGlvbmFsIH Eyo5FhJJ8qWTLlhLWap aL5lGRxYOVvhOCuIABt rWGjISFakd8wpyftuAK oKSMjDfWbLH9gBBXGmp JnemGgvBIqeA4qMWUmv I5uQJ1soF0liQisrV1g fMMtQqSDu6pqGR4rxXJ nRCF8OyApDhnuMwmzJZ N3Gk0igGUpFZHexpCAA bS3fGHkc6HbJ7afXI5d j3HiQO8taBYwrjy3jKI ceJebpVPeY4Upw0SnYA M1TL9QWUEeCWXan21xH GLuglNlZT4dzDs1yVDo vUCczAegqOrekrU0kZ5 vaiIeNHtlEuTfEo80yg IxlM1baJocNBFyN77rn SRdyBgoAiCyLJQip5ly D1aqyqWzh6H0IfPWmOX hHONhb8ZhfFUllRZ1FQ Bcb4JnBgUieyH1IMcwV KO8QLOqj15jUDPdQRjh jYLxVWAfgXlsm9Eszt2 gIFxwYXJccGFyIFJlc3 GddHAzo2gypFyzGRWwP GludGVycHJldGVkIHdp eWyrG1F1wTgvclKgoAZ vrlD0iETqjUznICpezH 9vZCBvZiBmYWxzZSBuZ QjmrFo5aXZ3OO0oMEVr S0FtM9uduVHoRZHfLXE rtZTyvm1qWRMvpgizMD BaCMK5FkCkDUA3SCU0S Ly0eACzQsCueWbzGMby UHL1UjGyQQp2lEHnHrF bgJb7CITdLWP7ESo5UW e7dIW4OGBavZe4RmWoB YI2ByzcFKh5mKo6AWDb zJn4WpPfQVM5GDPtBFI ccGFyXHBhcmRcaTAgIF xwYXJcdiBTTUFSVExJU 1RfTUVUQURBVEFfQkVH PZ6dSgMfURP0SF2oZrW 0TYKyyBI3GL4aXdOmU7 hwTYDpYxFqFCS5HY4uR sA9JVL3jFY6AM4oCtBt XSt3TNQuNiEnYrA2Ql7 zKjn0XoY2OPZ0jCb8EX 5yRhRxHsfbYH0zNrQ2X DEwfDExPTBfMjYwMTF8 UOW9ZF4pKxMzOXyrFh2 bFnqzEH1xMtCxYlnrJR 9yIyU5QYScfDZ2GVIkI kRwDZn1UHe8RT2mNdCr AGrgNH1iEwD2RDV1uXA 4TMAjUeUxTMs2GhI3TG 2qSsPsCAfvHS4pDSBUP NBXMKhFSC5NHJMHFLQM RJ0HMeIvH8wOJPLHXlT fTUVUQURBVEFfQkVHSU 2eBMb2NNtawPH8BCz8X XxMLROJDTFWU23GIKZX NVTWO5WFXEPSLRRLOAq IGEQUJn4MNJZTLUKSCR 9CRUdJTiAxXHtCUkVBU 0FKXQFZQYdTDzZlX0Rd P1kuLF0nKFgkQZDUgYP 7ItQ6ATTdDF2dNUpASe BNW6SBTGEGXPyCMwPUg VQvho3xoESqCWrtbMU3 BmLdXPHneHFqz0KIVLX TVFBBVEgtSUhDIFNpdG XpJYztxDK4CuCrSJOwo HTeb2MCNAKSDONUXNjp XZyEHHzsDMYuMIspo0H 4EsEuNYVuwMMnd1JVSA FTVFBBVEgtSUhDIEVSI CZuYVNrm99jLHjyj3S5 GqPeQGOrsYOtq8WRRWB TVFBBVEgtSUhDIEVSIF Fgp2WddSEDaKO2LkZ8Y LF6ED94XNxDTaFZH7TZ QVRILUlIQyBQZXJjZW5 7OXN4STqqzC5dRZjHcK Mgz02asDb1TeMyFaNvy Cnue2HFIBKVZPVQYFpm SUhDIEFwcHJvcHJpYXR hPMInhrNpv6ejHLxOnU Bkt86pfQm2TrGlBsUxk CEzDXvGNcLXC4QNEWQT LUlIQyBFUiBTdGFpbiB JbnRlbnNpdHkgTGlzdC D5JvIbJXKyrUPrCLeRM xYEX8HQSPUMSNwEZiZS ZrGBMtMSmR8pGNDFxJS 2PqF8RBWePT5pQws6Tb NRZTZLPPJGEN9ADXTeI TVdYmWnxWg4GEttx4Pd NtZ9KHDiMK4lZ5c4WaZ OGYUHUQXFDM3CMVWhOH GcB9JxeRATlWXkcydkF gZeD7S4qQ6dQLinGjA7 WML9MI9sSKb9RqISWFJ TLFSJYD6TSJMhLUGbwz 8nmlyilEMeH68zmDUhj VNqPZ7boTmgwsEgPExg KrSoNcs6HLVmo7ZEEWQ TVFBBVEgtSUhDIEdlbi GIwBIquvVTwhEgi7n4h HNLfJJ8OHFyKjN6IVTp DC2rX5z9UgVUKRPWMQB ZIV4RTPMhPZGfIjXOCE U1gTAiYPliwWklLgZpT 0y5EEqak7VYKUURCVVO VEgtSUhDIFBlcmNlbnQ sY3SdtO6uxwhhIJ3baS karpIvIXnfYiLeSWj4G Cxso8LWKTSCFBHGUTje FNiJCYdfceWyD5KmnzU mANzrdWswEdGyKEz4Zk Bfp6TQXAQGOYYIKUmpO UhDIEhlcjIgRklTSCBM tJJ5MqL4PVT4HC0iINw 4KaJEZPPJUOEBDP2IKZ XaU5ltAijkFcCyiBp7T Fddp3Y2FgDmEXFvaVAX TVLYVLnGITVDQo3NDYJ RPXRWKC1MZnCjQ2ICAD 2VVy6ZYOLJFPPCZH6GL CiOCaBgN1CASN5FNw5Q HQHWVCNRZK0DMpKnBFG IC9VBDhAFP9rfPBVCMR AWFARzMbUHYR0iYDLEF S5KSCOHUVKZT70BPUPI XJYAM6OTZD5= Gross Description (test j3myvLAhDOEnfYYFLYd code = [id number]) wMFxhbnNpXHNwbHRwZ3 FnkxdsBBpbEK7gOE2jn QyqtHIuiGTwRZ6KFGAt ZmYxXHBhcGVydzEyMjQ wNRCtcFStdRF4KSKmPB 1hcmdsMTgwMFxtYXJnc yV6ZAYuwOGjJ6QuASSp XQ7yajtjOEI9VJndvL6 ypsXVTnnuWd3zjOUczA tcZjFcZmNoYXJzZXQwX FLyiRkoMCStDNn6uW1X VpuxM20sc1O0Agd0WDK gLGBeT8DyII0gQQTvyO DlL21CWlncXTI8FVSYY eeeOYXiRM8Ne1qfRSWz wYKiVHP9AAdtoPNuQRM iPKWfNQf3VZQoEDamuQ IaAQ6soHkkYwmriHguq 2VjdCBcXGlkIDUxMDAy DSvyIAWeZP3PCqNmTNJ rJjqaOUppKCo9IKa1LY 9WUyAiICAgNTAzNzEzM MNfTFj8LDdeCD9JXWv9 QuC2UUJxCoK0NGZ4VjV cXHQgMiBcXGYgQXJpYW wgXFxmcyAxMCBcXGZiI MzdFqfgBEwuU95psKyx uH0jJthubjNgZGS7DZL hciANClxwbGFpblxlcG ljTmVzdERvYzEgDQpcb HRycGFyXGxpbjBccmlu MCANClxsdHJjaFxiXGN mMVxmczIwIEJyZWFzdC osagjhrORtNWTgN8h6I GJyZWFzdCAxMDowMDpc RvVdF6SmTII1RHkwqOf ejr73mUa8WAQbyTJcq8 TtiBF0BRDru5K1SCDjk 3UfpaFpWV5myL6uKHKz n70jUVViRQJaWSSlQ26 vqS7rzCWuJ9JtVHSfXJ ShIdOiF97gnW5gHIoyo TV1GPXfBTLmrYxvPCd9 CMZ3Pw1otMKmGHKphiY TNI8MKsTvLpWad7Kcfe HaRLFdHR3kSYzqcu61N LO4q3sixYJuBAszDtco dKLkpuC3ABlIQBWPBBg PQkTdJR6iHScUMfyOGK dJTnwyMTAxNnwxfFVTR AO5QLuxrAgiyYa6e2mn oWVzg5u1TNlrURZ0qMC Ls2pquDYdUEqkHvdedK ByzbE9DXhOMYORSUkUC uUyRG2vKYgAWxhGBhJ4 AhSmAQK4ATgQN7LQdOE 5Ovb0DEb1yVntQgsiug HoeKIbCkXCkE9kyDpmm F3spVPhV4oyEzWuEJXC ClxlcGljTmVzdERvYzB rtnV1JSQjtCXhCLL2VX 5kXHBhclxwYXJkXHNsL WA7PVnmpD11qWHyZKSb MTZccGFyfVxwbGFpbiA PWhmmQfxxiUmrs1FeiS BcXGlkIDUxMDAyIFxcZ IRnCW5IEoHnAIMgRzzi VSlcZRx4DXp3WP4VFvN iICAgNTAzNzEzOSIgOT i2JGfgIX4VESr7UaXdL IP1GHS1FJK8VfCwKMYb MiBcXGYgQXJpYWwgXFx mcyAxMCBcXGZiIFxcZm luUUxeP00nzFrktQ5qO oeqddGwMPA1ANBspnZA ClxwbGFpblxlcGljTmV zdERvYzEgDQpcbHRycG FyXGxpbjBccmluMCANC lxsdHJjaFxiXGNmMVxm czIwIEJyZWFzdCwgcml gmNXqCAReD7j0SLNwQQ LwmGCgZTyiUGY7HIBuU ELeQLMmWaO4LLfdf1in b6umaQDiLoigky2fTAA 3xDY9rMObqESxO03zOQ GazqBwO6rtSmMlyh0pV DAuOGNtIHRvIDEuMiBj cMTlgjGiMU3lvVdzHR8 kIDAuMiBjbSBpbiBkaW UxPPWilhlvFN16sNQmq Jipw8UbaXr5tNUmEKvt IEIxICgyIGNvcmVzKSB coaHrDyFkCQOzI93kHC kuICBccHJvdGVjdHtcZ dvnhEP7GDvfWesjnS5n dCBIWVBFUkxJTksgbmF wJU4PML0XFvHJJG45Aj VuNAR7PRoCY1ZIaJK5M hp8ZOc5nFwmWundixLk aQYbYwFLgO8SZCurGgl caRH4DIjkPaxgkT8fvR BIWVBFUkxJTksgbmFtZ B5WYQ6YCP8TiXYvYCF7 jLD0ASGVOdlhyPF3jAT 5eH24XCUuYSVibJUqLB abR186SSUbZThuABf8k mNoXGZzMjAgDQpcZXBp Z77za9PWg0UpXPDbm0c lzUkxc1YclRVfIEhxWJ DarUCbQPodfJ0vDsBuu 6kdxJv3IGxtqcG4QIGy lq7ewKtskW5cGVg9HDh zNWWsR2MvL7BkWQpoEL G1CWQmQwNhLDQcXESZN dGaHgWHPxY8GOS6WcG2 CNu6VEZARpRqSqMjPVR jTjeoXKQhWOc7TEs0WM fDFoB1UTT5HyUcOaSbH LQoTEYjLYe5VIAwPTgj IEFyaWFsIFxcZnMgMTA gXFxmYiBcXGZsIFxcbm L5XTKnKSgeJLWlIiSwH CBDOlxwYXIgDQpccGxh zR1yXRCtH38yv2UOg6Y mMR5HJCb2fyAedrqbfQ 4wXHJpbjAgDQpcbHRyY 2hcYlxjZjFcZnMyMCBM vG5hyFMdj7ZoOKWbLVA yaWdodCwgYXhpbGxhcn wozOB0KJiafZzwGwmyN CzbFaVgPQJppLYyqP74 FGMxuyHjqFGzb6ThyIS 6TVUng5M1CJMqd7Muwy shXO38XIGiQDLwUKVqZ xHqL95xhF1zcWCzV4Sq SBMbJYXsDbF0GJLrHMy uBFGgON9oeNQgRWGjti PiufWpuGMwfHBliOR9T BDsnF9hQmBdBFGwrRUs vVDkoFfyRrqgwSG3JMq eSqbthC1dhJOKBEDTXr iNUoniimPyMC3LIM1XP dWEJJ10JdMtBRW2AEeJ O8OJgAS1Uwh7WAx2eTu cZmxkcnNsdCBcJzFDfX 8DCKhoVwhgoHL4KOmpY nnblC9qnIRPFWXNWszD ZkamprVaDJ6RCK7WQN4 UnGFfQLW7cXC5GCVISt jckPF5fPH4pB97NKPdH INmbDPbPVchW262XVAj VZnrARm8inPgWHJdWgQ rDXnmLDBpW32xq0CMm7 OrYPQai1cmwMrja8Clw GVuZFxwYXJccGFyZFxz qF6xDcGzs3fykBm6YBs sapH7HPOnyo4ygZmkvK 1jLLl5MThoPAXyB0BwQ 1ZtDGkjTBZ2GLBwJsXb XGRiICBPVlIgIiBDMzY 8SYM8ZzE9VTd9JBSNTm MgIiAgIDUwMzcxNTgiI Hg9MYg8NTyWLzF3UIX1 Fsp1ObunWRIvYOKfMYx 0IDIgXFxmIEFyaWFsIF xcZnMgMTAgXFxmYiBcX STlBJxzgxP5KLLsXGmq XGJcZnMyMCBEOlxwYXI cFEsmdArozR6jKKLlB9 5aw1KAk1YnWK8JFLs9c oYfxcqtvX5jGCXgocBm YUbwkGEaN0rjOpupCqL tTmGcRIJNrdCwt2AeDG xlZnQsIGxlZnQgYnJlY JL8JVR2YSZ7VDCvKQTb GILpZrH6jCv0NE81QTl au8teLhjmcg8iPTY2qE H0tQXfwVMkQ45eXFKjb lJiI5laZuAcsy1oHGSv K2NwMUJbCVGtLWSljRI oncXlYD5hcNhiGX3zLR AuMiBjbSBpbiBkaWFtZ JAsxcvdZI61vLJioRdw u9PtcHu2sARyUMdsKXY xICgyIGNvcmVzKSBhbm FgUIUxIWJlF98wJUsfD CBccHJvdGVjdHtcZmll iCP1LBjbMztyjE5vrVY IWVBFUkxJTksgbmFtZT 8LQS7AFtEICS83BlDgW UH7NDxFJ0UOwMK5Hsc1 PRo4zGyoLksgfxNgrRC wSzWCxS4ILLdgKxeuqJ O0IWxaLbxwkY2bcIEOJ TFEJebVUrrpemMnGV1O PY2HRV9SoYExAPK7aAS 9BACBWtztkSA1gJY8vS 17XGZsZHJzbHQgXCcxQ 071PPSyHDuwKIc1szFu NLRxMyWhZAzaZLKgG60 di6ZDv2XeGWOay3ouaS uar8HvgQMlWTwrXLCea WUiXIsywR7wZtFsu6jr nQg5IOsvrsS6TWXumn8 wvDzroZ0cRJyac2twRN J1NLFtbJAmiVYrQNodk NpqeS7tRvNuAie5GOkm FIRcH0IfU9QvheU3FHW sYWluXGZzMTYgDQp9 Disclaimer (test code = s2hxoENhCHJpzVGyKwZ 9844) aLHPkTNRxy0ouFTKcfQ FuZzEwMzNcZnRuYmpcd RDdVMYsZlPwo6enb120 wQHpw9muHIUgUlB9nAR iHQWjgYDuI189OJQfGP frx5ljd1DdYUJfuREpg 3U9FJFVafwnbFu0zQho P82xi2S0FpdyA8fjURT lDWDiA0KbPP3cLVNpUl x4WZI0MUO0GBTfSRXnO 2DnUU5eVWHlqKJmUJg7 b4mxoTpuDFHzWZA1v1c iIDqevgZaRZ8mpw0tzW g1x9vfafXoTSHiRPWbd VGXPJAqN4LmsHwqPo9l tZr8vAcrGglzWGG5Aky 0DM6tmz03dzo9uDhkPD WtoakcReU7RDruRIXeh emsCRs3TNfqQYWpsZX2 LSBapUSuL9ZcQLEoPA7 yoix7RCL4APtiMXZaDd C4PAXdkUTuHVMcaGfrW Njat283ROM8LrLpNM2l Q3Mrh6S5rB6pqHJkGYD xaPMoOoScUYPyqt0lgX PoIRvth7UmBFK3uyC1l PXqzQDkXZOnFG55Ckue t2SySlcuZAQ2DDXhlkP bv2Ytd1kvFwFrfoXzD7 iwM5CjXGSpTOSsJGHbW qDriwJyl5Tgc4YwpSWf rIw2t2taVCVrUSVvpZl nr3zpFVH0SEJfQ8Z6gU Xay7jpIGcgVIDrwNS5u fY9ZJSdxITpT3HwhZ8l LWAgYG1dfho7f1vtJWG 7STktPTScQyV2scX3OQ BcaGVhZGVyeTcyMFxmb 751YCX4AoGkEMHiu9Us D0DpuAgnT62lfBubL27 tIMUdySeayV9cwGxqeV 5cZjBcZnMyNFxxbFxwb FLsaqteDYqmdoQ2HYen abwzQHCwZNubM0adEmP wWOJpqRjxVYovj3SxGT JvEHDmKqzmvvS6WQTXa 41mIZLkl2YsZYKrhD6t aELmOYgthkNnqOE5TOv hdmUgYmVlbiBkZXZlbG 1pNZKaNX0bMXNyxoVfo p2zvbFfGYRqPEVgT8Jd cmlzdGljcyBkZXRlcm1 ukdHjOOS0ZWOUML8NRP ImGAPih28rKUDhuKtxq A6ocBJsvbPuWQRfi9Hc oD0fnXPBOYHfS2gnWI8 wXXfnd9PbmIFqfCBiiE M7ABYnq5RuCpElkwDad XGtfDBwH5KdsZqgP1dm AIQkYQNsmaZpzQXgu9N bOYSyoLJ4nFKzZN1ICg QDr94rLDViGUYQowXcA CIowNroeCW4axZ3zT4o LiBJZiBhcHBsaWNhYmx zDTLwg847jp6lahG6MN XqHCSqhxapw7MfNVNtO PYioU99ARTtECNdlg7p xwnprGFfliVuL4Myrhe 3sF5xGZPrGQewGPFxHY ZzMjJcbGFuZzEwMzNca GljaFxmMVxkYmNoXGYx ISahO3xjKaDdBjFxBzg wYXJ9 [facility] 2021-11-25 16:06:16 Test Item Value Reference Range Interpretation Comments Submitted Clinical History a8shtJQsURZhy8dxYFQ (test code = 49538) mbGFuZzEwMzNcZnRuYm pcdWMxIHtccnRmMVxzc 0QjF7EhVwAkZLqznyDm XGRlZmxhbmcxMDMzXGZ 0bmJqXHVjMVxkZWZmMH gvCk4idWXqrSyrFtYiK SAlw8yzwaISsgztvRn9 o4coFICvEnC7xBQiVLa zK0asdiDyzPTmFAUvDU w1rH91CQAheA2evYPuM TqwfuQsZkS2THamZUNs LeS8YUZuaNMnZFKiQ6e yZWQwXGdyZWVuMFxibH XgSMN8mApvh9D8yXSea GVldHtcZjBcZnMyMiBO e5SeWJb1jHqwP0ZoBYR iFwP2xWPjCVZiLVqnZN DqMNDvzaI2wM41MHvgk mO9xHTgk3Aco55xc045 zP1dzVOoSNJ2QFErKFW akUQgTMZlMVP6LYVekS VeT6nnEOLvJD0ntfmnQ OkxAVhdJRYhmSN9DKRb pKVkO0LqRRYtRDxvLNO azws4AuIxJu5ewSNafJ abTZufa5gld3dlwMSlL ql3PLZbLtZtWljdDUyu q7Sqb9zqETTlot9iWVZ 4oBSlwDwgk9H1bMFrCX EtwPGouoOtGKGnDwD5K EmkWB1njz55AELjONC8 cb0dcHPcfDbvdrMbyFD sSWihM5ToAMHsu107EQ KtD5QdCEAkd6V6xcAyU cIxKSOveYG0loI1OVWh ZIk9pXMrxdJ4vyZnrEK cI2tsjV9yCXMzYF0cvk thz6dhKRqhIUbiQZLcq KK9yfG4WLCtlBSqR5Im rI5fMZNaNXtxEOWelot 0ClBiRg7tsNNtmOkmRA xzYmtwYWdlXHBnbmNvb nRccGduZGVjXHBsYWlu XHBsYWluXGYwXGZzMjR htNztmVizbX8gHmTaBt ZnFTbfZR9vTEGyM0lmb AAeGEEnTUPfW9fkBiAg jO4ouBwjIMxrskGvQC6 krT1tZ0IyoQl8LJExss 0duAJwYCqJJIXeRB4su TjotQ7sEdDzSnKxVrxx LV1mINGkD6smmQFyISX zQKGsL5gfZpTrvQ2jbW ijAAmjbuFtWZZklw74 Diagnosis (test code = 34) r0xvhQPjOYEfeWG8DdX qACBte2bzp8QrtZOyuL RyZShwdBMxwrAcze70s WP2nD76YQ0iBGFwFbR4 IGEawrT8Yzh0DCEpSNT soWEiQ756a3ysu9jjsa GsoYA0RWXpWEDkP5BnO R0aYNFzyZDkG91mqFQv LHP7UMLhNLRzeCXkFUV qJIK5DGHfxWJbO8fqZK CwMQ3mzuibKBvcMAcmJ WRdkDL2TNEhoWUhM6Kk CAPdIPfqXRGqkvo8HaK cHu2teJEdnRttKNbaHU JkXHBsYWluXGZzMjBcY 3QrJNN1AYWyPZNloQsv xxbrnJXcUJJtA4q1ZHU yZWFzdCAxMDowMCwgNy DhfGYHRledUF52LGFbU MEurAIqSjhuYE2hh4Kf FBSgzYLjs485jwYaA9R pZGVkIGNvcmUgbmVlZG dsUWCnr3DovZpcjZWjB GxpNzIwXGxpbjcyMFxj ErNhBO3GUHXCCgPxEMP EMBZLIVKYHzLRBw9LSQ JGOwIPCzYVM9KlPSmHG 5NFNQ2UZLWuX5JGPHOz MywgTlVDTEVBUiBHUkF ERSAzIChISUdILUdSQU VKXNloH1xJZGBGHGNPZ 1BBUElMTEFSWSBQQVRU SEWIUCHJQY3NWQRRTPx KLTxuVZ2LCPqHNKQRJC RVQlVMQVIgUEFUVEVST yWwQ4AHBKQZYJ4EPaFx LlxwYXJcbGkwXGxpbjB ccGFyXGNmMSBCOiBCcm Qrz0OgGEXjE3e1QIOjb JrxlKGmvfCxc2RxPGA8 JWDrKBPqU61vYm2aNFS lU12ibASurOHrrBYxuQ GgkjeboLo4paXpz6XrG L7dyEupZZMvL65wSWQy BTUvuXJxTozbiGN1Neb xRRBmgBg3CuIqpUnuXp ZdZRQzUCBDDmBFC3aOG FORCUJEDVrfT2XVG5xZ V50EOZ3OUQSYNKIONVs rEWtJHT5AJ1wMDoGTMh FERSAzLCBOVUNMRUFSI TqTUKQCKGQmTCfFA5wb M7KCIRYaQOWCRDMLWP0 UD2TYTTCLMVzSHWGIKT XGQKJLGl9dALFGDCaRA APbS0oABHCNY6fbM0GS REUgVFVCVUxBUiBQQVR XKYJPOWgBQCDaJ74NQC VOVCkuXHBhclxsaTBcb GciUNlcJJGfF1YsIIT1 AXo6dHKmCJ5kGFVeobp gCXTvG2x2KCTvwJyhdV FyeSBsZXZlbCAxLCAxL fexV24uSNLzmGFsg407 zhGaU5HaGFVtSRSqxzW ulcOcMActFEFte4SiwA pccGFyXGxpNzIwXGxpb jcyMFxjZjAgTUVUQVNU IWNUVnURGKBCB2EVWnW GOi7PDCHPYUBGGS5zY8 8XMPrQSIFKWD9PYMXtR TRzWBoxGEQTQBSBK76A UC6NSOKjmmybfEXcgCc nPMdaEPZfP3VjSYS7UU JyZWFzdCwgbGVmdCwgb CThlIGtfzLff7JlMxzk MCwgNSBjbSBGTiwgMS4 3HLGvKT7xs6NdMKPsnK Wwb148pyAqI5EvMGCuZ GNvcmUgbmVlZGxlIGJp z0ZqzKxxdBLgPFfjHsD wXGxpbjcyMFxjZjAgUG 3ieTnakqPnMlO2pRDeQ QYeA7ArncAlM8ugtMK2 aXRoIHJlcGFyYXRpdmU eW6ilvupnsbEze8RcOA AieW0azwPtVvjhWVHzc GFyZFxwYXJ9 Comment (test code = 9835) r9yegXTpILIjpVV5WmX sHROhy6gym0LwgKXouY GyHDkfwFEnqkXdgw56p AZ2iB17MN5vIAYxYtN1 WKEzgxP9Vqi8UMGbXEG jyQFdT909c3iox4dpph QohMZ2WJRkYPN1DFndh iZdhbU2SZeroYEbUuG9 F1avYSGhDZplBICgOFk hyBOsFHm6VAEwkRRryy IfIqLtRKQcwCKdpBD4G GMfXI1ehdfvGOlbXNxm GOVmvoE7WDXgnJAoR4X qAFBySH9rfmboMRU6OW plFPDbLAY8AnWaKMFkx 6Ejxzg9ExIdiUIfRQau bGFpblxmczIwIFRoZSB mrfByu5n8ZSTdMGCaeF 8giROeKSBjPc19lHPgp XRlcyBBIGFuZCBCIGhh jqE0g67qLRwlpJevL9Z mqjNkhKgdkH4rz0cuKh XdVCN5TREyvzkmkM29G DEsfuOnnIycro2rLBEq bGxhcnkgdGhhdCBoYXM biDsqgA3zesZnXKDebf QgaXMgYWRqYWNlbnQgd B9yE2igb6BwHwBzukIh q6h9GDE7xRM9bARpUQL dvZWzhj3zcWhzoSSwFB RmxB78EKdxBFXkGdJyS i41jGInNqS1aYBtEWAe lAE7g5gtJ0geUJRfkZM gtn8aNJkcjwEssBGhee DoL8XfMOOuC5NbsH4lZ DN0GoH7sJSfLECoNWLu L9UfRvJdZJZjaT86CcI bXBezBB1yjMQtjLSerI DmyJ2ajYhuFDO4uZgfZ LF6PM7cJSBzpPMkHTN3 AcBhOLPaeNX3gQPnhn9 eL18gVRRvtsChjOLkxC yyfFFnhUwjlHR3hHVhg U45CLRqzgHmbBsmbj0q QJBixWzzlojduMK6sVR xyuTcsdI4uQGatriprH WeUxXrSDH4NSToyFdeR TGkkMPhy1MtpEMcTHXs ZmZlcmVudGlhdGlvbiB dzm3mXJI1PlJmSMMkT7 EhO2nzw12rDcTmQKNxy hziEYZxQX7niD1gqPdv eK1wxITvgNLtcNDolGX oyzIpk9QhQMFcTDKjd4 MmVJIjd83epTmea0CrI NEeV4Yxz04oXTBfm26w p4IfM8xbZE6pYZ7tCMZ rNJCuZOWftZ8bcMBiu6 Vdl69lfCljQVgacpQnb 2VzIEdBVEEzIGFuZCBt DO1jYInah1ZbhkjwS43 xFvmrsWdnSlO6pTUgzQ AweENkuQRpxbptkZ3tT PVJiqQymB23wf4gyNSe vwRjz7HxYZLVMEbxO3e zqYhpqESoIT7hv1StCR wdCMbzI3MnhDNjKT8eO KCzMOUje5BxLMKtq42l zDApgCOuBW92TCF0dMV ihuJiSB4tWVe0xDNfu6 Lmh8X8oOQtLSwadrKgf R1aMbwiQTRyvHDnOALv cpbfBGFaKIZlf40retv znhUVUFJ4xKBeEayuSX FoVgCqcFe2cFUtGE1xc E6deHtxoO1hpECdlFFc bCBzdGFpbmluZyBpcyB zVLBsv3CpZRQmeT1gj0 VyIGxhYiBvbiByZXByZ BKmgdFiyDg5HWyrOSXk aDIrQSa2bVx4MFRxkAQ vrZGoaCyrBjkbhSO7DU kbOokjqB9qjMHPWLWAN viLGgwsdxHiNY8EUODW IkXJTQ42WgGlMXJ2XOb xfXtcZmxkcnNsdCBcJz EoeD7MAFWhQrYpuq5lu YSaIMQuCNSuJYE0qY9n JBJjw4qrbLAwUWocQgg otOAtqjJ4LFiMSZGSZJ pCKuRuDS6dNZtBC6VLF aB7TjNmGNO1IVfcmJqo ZmxkcnNsdCBcJzFjfX1 hjGkmvH3jhJkgkeGyUM Hlath2vg82YZk7pkHrN uDhCKNhvTWnTYIzU9m5 cnBhZGRsMTVcdHJwYWR kZnIzXHRycGFkZHIxNV tyhTEnZOF9URCuYEWaN ABpCQS5EYFdAvBuvaCp MVxjbGJyZHJsXGJyZHJ yMIIqDXW8NUBjXwOglg NmMVxjbGJyZHJyXGJyZ TLhQVZgFBX9GZZsHpRk [facility]xjbGJyZHJiXGJ xOKJdAAWkLVB3KWIjFt JkcmNmMVxjbHZlcnRhb VQaH8xbfRCXcLN7zGId N4i2K0xalUnxVrCrPIH pcOg0FaS0DJhywQFjJO D9HHNySTRgHYFaJGU2V TBcYnJk[facility], [facility] CenterMVxjbGJy ZHJsXGJyZHJzXGJyZHJ 3MTBcYnJkMer[facility], formerly [facility] CenterMVxjbG JyZHJyXGJyZHJzXGJyZ MI4ONLmFfQanmGjEVpk bGJyZHJiXGJyZHJzXGJ zIWH4FBOoPfDkfrFfPF uihVQsqnAccQZyW7fny RBRpUS2lXUjD5o1G8np qSg6UdGlFJYooJd1ZXX 1MFxwYXJkXGludGJsXG AaxRQaP9WbL9xsNH4iV CgnH45rc6exOzPnZ4On bFxwYXJkXGludGJsXGI rZVVhf3ZcS3Z3ONClTB awv9czUDZvBJyft7MgY JeRXCOOPL7CVR9xrST9 TZvLRUFHZ8vYhZV8JWG htWN4Eh76NEYtMJZhfR IdQWqqV946ZI0LMMZFT kUgRFVDVEFMIENBUkNJ Jb0MTBmoCskjnTG0CQx zVruogH3mvVIVMMXENs wOMhlgyjDzME3BESAHG X6KwWG3KQFsxFQ6Wr01 KZIhMKBybUMjXHodN04 0ROHtNEqaTDEzMfQwP6 PgiUpfsvZgnSocw8aby WQxp3XakPPsLVZhJxzw BJRrtIZkDIvoBZl0ccX hZGRmcjNcdHJwYWRkcj U7SZXhMnDxssAfTpTyx nNcYnJkcncxMFxicmRy C1JvOITiWbAkbnezRlK kcnNcYnJkcncxMFxicm AqM8DaACAwCnFkhdIzH nJkcnNcYnJkcncxMFxi odSmI5AiCONlWrHurzQ cYnJkcnNcYnJkcncxMF uxipRoC7PbYVJbloEay MVwmAbtaJX2p8gdHZVd F0pnaLtOrXS2eJSkHER qO0QnhSvoGhInKPQdHb JkcnRcYnJkcnNcYnJkc ywiJBfatzLuD2GoOYGw YnJkcmxcYnJkcnNcYnJ pjznbMDcdrfGsX9IpAG NsYnJkcnJcYnJkcnNcY fHqwzbcEXzzukPpK6So XGNsYnJkcmJcYnJkcnN cYnJkcncxMFxicmRyY2 YxXGNsdmVydGFsdFxjb CS8s6qiOOVxF3tnnAcA mOV8uOEwWCUgI1MioNg 2FDBzEMOkyqAkjB43Qf xcYiBTaXRlOlxjZWxsX PCwblBrbP31HcclYrZy cHJvdGVjdHtcZmllbGR 5OYmtKxteoG5fyEYBMM QKGczYGageerQnSM3VC GYWZdZOKZ53EhJiOIT1 T3jyqSrtHulklsJcuAT xLrJyaG1McZgrjCIZvn Wlb2N4GWAwHDxvi6hyQ ORmAPtgf0JwZOdACUQO CJ3SPN2siBX0PGaZXLR LEBzyNuErZ5xujWZ4s3 xdbNIxk0f5ZUhkYBH2e VxwbGFpblxmczIwXGNl wBpxaW70Fbxwih05WFQ ov5xaULDuitkmGGSasN JwYWRkZmwzXHRycGFkZ NkjXLq8qeFbCDNhbyYl yCSqYWIgdzN8RQVbUsW kcnRcYnJkcnNcYnJkcn xoFYveynYvS7FlVIWqZ nJkcmxcYnJkcnNcYnJk csagDVwwdnNeG3DrRYP sYnJkcnJcYnJkcnNcYn PqytytVSppwoThZ4MwG GNsYnJkcmJcYnJkcnNc WgDgvbkgIGppooWwV1O xXGNsdmVydGFsdFxjbG C1r1ovRIJuU6lthKyDg MG5bBHuJJCbO8AhfWjf MzQwXGNsYnJkcnRcYnJ kcnNcYnJkcncxMFxicm VfE7AtOWCvIvLcgbknU nJkcnNcYnJkcncxMFxi sgHhH0PkLAKzByKdmuW cYnJkcnNcYnJkcncxMF gbefVfV0MjVZMgIaZew mJcYnJkcnNcYnJkcncx GKbehuZpV9UoZPXvswX eqGMdsNopdJF2m6vnDB QhY9onhFsGzKG0jHXfQ TGjG7AzjBi1HFOgIIVc seNhjO45ObmguBz4VgG vQVY2KOmaGDpdWAqmZI RlOlxjZWxsXHBhcmRca T32GcehBvXbbGHzbLWa yFrhLjsnlVS8RYpsFdx azR4cgJKJFBXOLqyQAn clnqPfWT1IGOAFBtLIX U28SiVeITR6CCg9yAdy ZmxkcnNsdCBcJzFjfX1 CC3C6TYEmKKytb4ozAQ HtJSbjb2ZoAMePLAAVX D7WPF5zfDI4LPyOTYLY KTgtUyJlNyv1pBA8i8y goPJnr0h9DMdmINC5oK xwbGFpblxmczIwXGNlb TlisJ18Wvxmad31HOCq z3gnNVldr3Gxy7izyMI wYWRkZmwzXHRycGFkZG ewPFm9syKrTLZpjfWzv KWjNSCouoZ4DEBtLpQi cnRcYnJkcnNcYnJkcnc tBZowboPjS2YsFXFmJu JkcmxcYnJkcnNcYnJkc bdnHDunlfRvW5FhAOMt YnJkcnJcYnJkcnNcYnJ rdlpaOHfdbqHvP7WeTB NsYnJkcmJcYnJkcnNcY dCuhcxbZAmuaeDnF0Tw XGNsdmVydGFsdFxjbGZ 3b6fsEHJeM4fbbPjAfN S3rYWoSRBvF0OeoUriJ zQwXGNsYnJkcnRcYnJk cnNcYnJkcncxMFxicmR eT0QoBRBmRjPwyiceMn JkcnNcYnJkcncxMFxic hFaQ1LrZGYhSxHqigFx YnJkcnNcYnJkcncxMFx rzyOkE6FvJYVdTbMvzv JcYnJkcnNcYnJkcncxM ContnJhZ9QmBFNtumYn mSGepWdcxTG7x1feHKN dM7gynKhYwUI1wKWlLV ZeX3BznGg0ZZXlDFUcw vZwlJ63IexqtEr8UzQz HEY6HSryVVkvSIYec2Q xKFCoEsPqI6QofMpsLJ JkXGludGJsXGIwIEEyX BXklCwqjK67Ptpcsn65 XHBhcmRcdGFiXHBhclx gNNTvUWG4ERH3LJkiJU Twi20dlebdewmkNYbwh NHhRZChqhDKl9Ggn6ci biBSZWNlcHRvcjogXHB btvc3df29VXv8zgRyYH fwLAZoxORcVKTaH2p2p nBhZGRsMTVcdHJwYWRk ZnIzXHRycGFkZHIxNVx swJTfVFI0PYKyNAMsBO TzIKW5QXRlLaKigfUcS VxjbGJyZHJsXGJyZHJz LIRvFEC7GMOgXbTujbY mMVxjbGJyZHJyXGJyZH BoXOWcEDU0MFZhMwCkb mNmMVxjbGJyZHJiXGJy BGGaXRXwRXW9HUJiLjH kcmNmMVxjbHZlcnRhbH ZmN6kqoXPXzAD4zTCdO 9q6B4sexKmfMJiaFLSa bAe8DQc7RPbodAXqHMA 1WLVcWKFmRZPcWLY9IL BcYnJkcmNmMVxjbGJyZ HJsXGJyZHJzXGJyZHJ3 MTBcYnJkcmNmMVxjbGJ yZHJyXGJyZHJzXGJyZH Y8SKMaMzYrmiGiEHkbi GJyZHJiXGJyZHJzXGJy ESQ3UGPfJlJexfFjIUd tyASjhpWunPXmH4jlgJ BFjCC9zTMtP9v2C7gcq Tg9YWfmRAHdaEs5CSF4 MFxwYXJkXGludGJsXHF bDFMfNNjaLV40iPFaIQ tiN9akodQ9FEndVRzsX YObnePbnQ96AkxppLWw hSWqkBbvTglxdJN3XAj rRjgbaD2yiZVERPMYPb bJVieiubFoKV6KHAENA iXDNK98MqBtWTK6NSy7 fXtcZmxkcnNsdCBcJzF foX22MhGoYUfSJGrfWE q6YJJkDCpzk4eeBMBcH Ljgr6DgXGiWNMIIIS2V YA8aqNA3QKfXBIXIFZq iFcFcVRo2nPR1p8jgeX Qxb1v2FLysZXJ7fLjgq HUcyedwJTWuWgEtX6Tr gMfkyxBhjOrma7zvoUI cf5UjaYKibDQmRVc0rw BhZGRmbDNcdHJwYWRkb PU4PJWcdSWoQWThZ8i9 cpWgQNHpBMTqP0nwyiR ukWmnzzNqa1gxwtKjiv BmLJXfMXMxOtJmB0gdr uJedDyokgJlh2ntvcZo mpToLASmMRVxMiLrD7w vrlVmbcmulqVbu0cyll RydzEwXGJyZHJjZjFcY 9xyalPsVvdymnJrn1qo cmRydzEwXGJyZHJjZjF tV4s0KHF1MIh8XRVgVu JqS0zfaVywKGQpj5mhW VYpOUt7DYkuVAjrpOT0 RGJnJ8qhhuQdcStiysE co4kvzeYjbeOyFWDpAS BhLuOsJ5zaevUhfPtqn xLao8ifakCergBzKVJj YBDiFcUvC6yzooShiea fuvKet5hfljNzdhSwQK KcKWAbGmGsI2mxxcGkI hhcqnQzi7oihcTwvbIq JVByLINpFwHoH1y2WXA 5GBn6ZUPpRlDmO8lyaY swLFXfs6rlGOEnCkK5N DujCEdxgQt3RkXbgPXn ZFxpbnRibFxxclxpMFx pEAlfCDTvwnYgiD39Xg rctOPZz8LvgLr2FQN0N DExLTEwMCUsIExvdyBQ z2CliDp1RII2OXAtQTP bQTKnmZdetU33Spgeyq 13EQTia2tiWOXpxstmK TBcdHJwYWRkZmwzXHRy aWRiZDyxUUu4zqAtXEI uscOqgQXtQOMiyeM8WC NsYnJkcnRcYnJkcnNcY xNyyqxcIVoeibFnF3Mn XGNsYnJkcmxcYnJkcnN cYnJkcncxMFxicmRyY2 YxXGNsYnJkcnJcYnJkc nNcYnJkcncxMFxicmRy D2PrVFVvLkEwczLdToN kcnNcYnJkcncxMFxicm SaA1JsMJPapoCklEWdy RootID7s3zzNBMrP2mm tGcQyAH2wZP7TQSsJ8I sbHgxODkwXGNsYnJkcn RcYnJkcnNcYnJkcncxM LkktaRjX3XvMLCzCxGu cmxcYnJkcnNcYnJkcnc eKFepjlXbQ8DpKYReYc JkcnJcYnJkcnNcYnJkc ugyPPbcfwQcS1SnTJCx YnJkcmJcYnJkcnNcYnJ taebyNBiyiyNlZ0DlYN TczeYnwUBauYuyvKA8s 7wfDIOqR3hfqMcYsFO7 eII3JwShU5AedIp1ZZC uHLFsmrCstJ71BtkueP TgtUQbG1IooRogFLGiH GludGJsXGkgUmVmZXJl lrWrHhJEzVcuu32cEHM uFZknVUSaO3ukPAO9hI 9sIExhYiBNZWQgMjAxO VxjZWxsXGludGJsXHJv g1t6we51UFs6zhFpOaN aCHQkrNYeNQBgQ9h4yc BhZGRsMTVcdHJwYWRkZ nIzXHRycGFkZHIxNVxj kLKvNQG4BNGtXEOdUMX hHUF0DPUfErEqlaMpLP xjbGJyZHJsXGJyZHJzX FBzDDE8JTWvSgUbryGm MVxjbGJyZHJyXGJyZHJ jNFExZTE8QUPrNcSagw NmMVxjbGJyZHJiXGJyZ DHjHQIfDVE7TIAhEwJc cmNmMVxjbHZlcnRhbHR rB1idnHLIiKF7uBKgR7 f7F5zoqAixZMtdPPJcp Ae1YTr9CHqqyKRiOGM7 NLBeJCZiBFIyRRR9MXQ cYnJkcmNmMVxjbGJyZH MyUZAvAGXbCHQqIKJ3M TBcYnJkcmNmMVxjbGJy ZHJyXGJyZHJzXGJyZHJ 3MTBcYnJkcmNmMVxjbG JyZHJiXGJyZHJzXGJyZ BR9SYLxJgFidzGgAZwi uDCrgnIbpATeC3wdgYZ QtPV5xHRdM4w0I1ejlQ u2XMsuIHTkaZc1QFN6S FxwYXJkXGludGJsXHFy LIYuuWKeHlNweUw8kpv rL8YevBxgKYVzKIifrR VaBLBgMZXlk9YiR0N0A GJnRWtya8vkLRStMZjt x3JsEGpBHWQIFO0RJZ1 rzMJ8PLsJUZOZF0jDqW I4DBO4xYS3Ei69MLOcR YOclXNyIByuK485XU2w xUIcmnU0YPPcRFvjb0k wCHPoMTjnp7OdZTnVKS ILWB5XAX1raGC0MLvKR OZXLFcrWlYjJNf3nOB6 n4mwbCBtt3p4CNleREJ 9fVxwbGFpblxmczIwXG DunLqzmA71Yloxhy84J NWqy6vkLLXkyklrKgNc dHJwYWRkZmwzXHRycGF cTNkdMZo9cwWhHLRgmo TpgRUqUPJacvC7OXKvT nJkcnRcYnJkcnNcYnJk okjsNAopnbEqL2WnRMI sYnJkcmxcYnJkcnNcYn GzkhndCAvhunXtZ4IeP GNsYnJkcnJcYnJkcnNc IyBqhhkkQJjaadQaS1P xXGNsYnJkcmJcYnJkcn NcYnJkcncxMFxicmRyY 2YxXGNsdmVydGFsdFxj kIB5k8lmYOAlM9vweCb PbFE6jWL4KTXiS0LxyJ gxODkwXGNsYnJkcnRcY nJkcnNcYnJkcncxMFxi yyImU9FuVIYtNqVazka cYnJkcnNcYnJkcncxMF hmisOwY7ZiGOZlArZjs nJcYnJkcnNcYnJkcncx NBytkjWqY9PyIDTvClC kcmJcYnJkcnNcYnJkcn mmGZxakxJhY9OmRULnw hIxjTAvxHjubDZ6q8zd VYAiH2qwuQoChLO5bIY 3NjKiI0TpzCc6EFIcGD GnslSwzK65MelzcODwA bJJYQPsZD71CZZ0TPdx yG8sIbttHMbhWFPchtI aoN12XpeiBtHmsHKmrQ EphZwpMpstmER5RGypT fddsF9avWTSDVGUBhfR HjumrwDqEY5BPGJGKwW UIY18DzNsCnR6X7x0qS tcZmxkcnNsdCBcJzFjf W7wQXOtI2OSXZEoJXYx d2AhB4Zyr5kueRObOEm eXwmrcYBrsnY3YYoCKZ WORKaVZdFdWS8wKQmEX SPJYYhXVpx2kGvpVnsl xkYvaLSfFzAmwB05UHp jDdwhnFO0BAdaGoavlS 5zdCBIWVBFUkxJTksgb tVbXS7BNBgSTV5QqOo3 f6nozXLbi8d0VMsmMBU 1bFoawNEaeamsft40AO M1JONwFrMyGTB0KZQnX Xmvw9cyXKFpLOsik8Nf OVyJLIBHRN5PEN2zzXC 9TElTVEVORHwyNjAyNX w2tEj8o8msoDDgc5j5C DgkRIM4pReyjEZuqwmj uoZwVBMvaGfhjE58Hxz cwx52ZATtb8xlWFGkhN NqHBKlE6g6saIaLXElL TVcdHJwYWRkZnIzXHRy cGFkZHIxNVxjbGJyZHJ 4LZWdQRWeXTGtIPP7RB BcYnJkcmNmMVxjbGJyZ HJsXGJyZHJzXGJyZHJ3 MTBcYnJkcmNmMVxjbGJ yZHJyXGJyZHJzXGJyZH M8ONRjWvFtjqTsAWuqe GJyZHJiXGJyZHJzXGJy GYO5LOCsFfNitwCzSXw lcXRhidZpsDFuA4bxyH RHyJR2ePGdO2l7N5cec IdqMByoEBTghNs2ZIs6 RQiupLOkHKJ7YFPaKTS cWFAsNLW6YXWeLvMudx NmMVxjbGJyZHJsXGJyZ RSqEZQgJQW7ACKkPyCn cmNmMVxjbGJyZHJyXGJ cHVClLVPsBTC8FSEuMa JkcmNmMVxjbGJyZHJiX FJkFVAcGTIwLQA4YXQl YnJkcmNmMVxjbHZlcnR pxGGaK6amaGWUvLK4pW DaG3e2P1xbcKe2XOifH QWjvZa9VEX8MDspNXCc ZWxzcAYjWNIgWLYvC4Z sbFxwYXJkXGludGJsIF BhRWLvm64dZP86KCRzd XwnqT76Dxvagb88XIYz n4cyBCNfhUNjLZEzQ6h 0cnBhZGRsMTVcdHJwYW RkZnIzXHRycGFkZHIxN PuvcZGbUWI1CLNwDUAp FVDgLDE0KKSmCrCshgI mMVxjbGJyZHJsXGJyZH PsYPOaFHU0SMTrAkWpd mNmMVxjbGJyZHJyXGJy RTBjFKQtSMQ0IFWvWtQ kcmNmMVxjbGJyZHJiXG WuUGLnIMQlGNG6QWRxE nJkcmNmMVxjbHZlcnRh jFJsO9mgcASAvPY2gUY kV9e7G6kolZnlVSdrOA JksFf0CLi0AQgyqMIxH CB4VZUmNLYfRTLnBMJ8 MTBcYnJkcmNmMVxjbGJ yZHJsXGJyZHJzXGJyZH I3MOBcChOndnXuPUxga GJyZHJyXGJyZHJzXGJy HOV7LFKzOiDxkyFiBHx jbGJyZHJiXGJyZHJzXG YxETF9ERNtZkRkjxMvH CcqrJAlheWutKKjG7wb fNORsMP0pLGuP2c9W5f cnHn6UKujIAYisLy5TC A4BUjrTKMdINjxaKIhU HFyXGNlbGxccGFyZFxp rgNnnQjchl26RHK9w3g maWVsZHtcKlxmbGRpbn Z5XVqUAOLWNMcIQpIsD I5yGXrFX8LXFUhYRhhi MqHkZyp7uNn6x9igsBG bb8d2MMzmOAK7lODxiX JvcHJpYXRlIGNvbnRyb 3rmOTApAWSgqhYzHB87 WT7rGLXdJJDtyEeaCD2 4UTRdVHjub7umKSLnLA cur5DyFIrDVBPDOA5MA B1xgUJ4ZRzZAAIWPCgn RtAfNuh3nFi5l9ebeOB xs8b7XZjcWZG6oJqniG FpblxmczIwXGNlbGxca M95Tgrtgg91KPNsf6mr XHRycmgyNTVcbGFzdHJ je5c2rtBmKERnyYSjzM IiAZMyyHF0TJPqsBQcV BNhE4c4qwHfUGIrYABb O9imxgYugCmcktPam9o icmRydzEwXGJyZHJjZj RuR6njarNrcGdssoQgh 1xicmRydzEwXGJyZHJj ZzJhQ5yjimUklevhguN cc1ifzbDcnnDhLBYdAG QmDpIvO6yvssOjGvycz fNpd7yfmsSfziImXVRt IODfDrTbC4x7UJV0PYh 8BZDgJuZxE9adsTcxDB Mwg1mdVJNpORv3EEbyW QwheTH6CCMtU5coykTg yFxbxgBhe5yfxcVchfQ oOMYlHYGjXpVwZ4ybfk OpoRhjkePxk1cjgkLaz gPhUEIaZXZwObNiS6bo dzQrjdtzjiHnd7vclkU ydzEwXGJyZHJjZjFcY2 yiidAcMwkwbjXvx9cpl mRydzEwXGJyZHJjZjFc X2h4PGV8JKg1ZEHpDuA mF0sghGeoADUlw3udNN WvGwQ2QBazCFzmaDm7Y jBccGFyZFxpbnRibFxx jwqzYFM4DTajNLcxbZC xf5k8nItsF9YcnXpuAX JkXGludGJsXGIwXHByb 1ToU3F6DETsJXysk2ks QFKnHYczx9XeVWkIDGW KWU0TLA9ttJD4YNgCPI PRC5aRvHR9RWN2zOYnp DEwfXtcZmxkcnNsdCBc GzTkfZ6PgAEuvfc4OQY jKWvfr0jzYRZnSXrlv7 ZdCCwOAWNAXF0TCA4jz OH3NOyAVWIQZHpoQxXk PfrhYPiiVW75WZFtRUV ayFRgXUvkC089SGCrGP njWWLvGfMpH1SgcHcjx aJkiVkvl3emvWTpGKvt KPCluKUbAVf2fEq6CXP tNgioHEAqCKVhQ3ExcD Adw97gVCOlV3KjgG6dR dstRGHvlZQhl7AlcUWd gQRlPNu4rtEdPBYieWK gdUIkFHQdjDG2RGRdzR XbLVNzC0i1rsJwXROpX FUiY6avsrXcjNvdqjBe u7wjunZjgfXoUPIfSUV aEwEkG7jomrOizKbdze Yzq4yqbxDgmqEkRYXlC IZqCxErX4ycujYnbnax pqKoo8wltvUxhhUpRGU gHGMsHsFfI9rkpyWnRg qotnMls0pcwySookYqO AFeQYCtKkTxM2n5ITJ1 VLn9EKLrYxWaY6vgrUb hFMBvt5noXCCiZZsyXP sdUPwocNS8OTThW3nab uQlhIfsibFvn7asyjPd rlNmTNWqSEVhNgLmC9i dlpMctVvosgTve1hsqv RydzEwXGJyZHJjZjFcY 2zrqaXseqdqspYzg4gz cmRydzEwXGJyZHJjZjF oQ9otmiVnYvomzuUpa4 xicmRydzEwXGJyZHJjZ cFeV4a3YMJ7COg0VBId DoWvS2dlzVqeOIXbj3w yNNNlEfC9IYhsIIveyV d7UuUjqTXhNGqmbmUio FxxclxiMFxpIEFudGli n8J8WMOip18mNzQgR8Q sbFxwYXJkXGludGJsXH Pgd8VcE0P8VZLiERlki 9epXDMjIYvtw7UzGGxX ONMVGB8YTZ5uwZI1CGg JLWCFZ8sYfTO4TZXjtP ExfDExfXtcZmxkcnNsd EKoSbVieC0HHzPnLdAp EOMtH6Ctf5azbBFrQRs fEiaviOAptmL2DEnACH DNXYjWTsWmCU5lANnHP 0TVPrP1KdTyNUQ0LTT3 ZTH7z7qsmLDev1z7DXt wCKI3cMkyhYLlcsduSF XgPvWbB8NbnYzejmBfg Ftno9wauMRps2JudLVd xTE7WGl5thFyYIAxlYF zbJGnMFZduRI9JHPuvF AbRJMtG4f1vfEwPRBiP NPgF0bjmsRbcDsgofYj b6yepwJyrfKlEESyXWP pWrTbS1xpbwTxsQnlsd Lup5lctmFrkaLyNXLyN UCdXdVfV9csoiDpsysb zePnx9hefrSgzcMxSXT hXMRiHaMpZ5bkejCgKt nkiiKvo9jvmuVsjlBkC HBvROFsMeOzC3w9ZXM4 TNm6QMPnLjSbW0dizCn ySDDjx9luKGYrFAzfDN cuIEzwjBW3FVTyW9mxh kUpuBtqycWwz9vkjdLi mlFqXUEdNFPxJtGcL8i fwqKodFlyryYwy5fdym RydzEwXGJyZHJjZjFcY 4rkuiOsvljwatXyy9es cmRydzEwXGJyZHJjZjF kQ7xbgbEeGnvndaNqp4 xicmRydzEwXGJyZHJjZ pQqC0y7ZYE2BMo0SOHc ImCtJ5rswTezUIDuk4e lHGNpWvU3MRanYCswbA v6WnHycLCvMMatujZab FxxclxpMFxjZWxsXHBh lyRoxB20SqnxsKIPg4S bbUa1YHP4DUNmLKHgBY SfTNqswrBFo7UraKj3K KV1PXHvJEFeQ6QcoAbb pbIqyUihv3fpvWSrt9N vuSFbwPRjNMj4fyQnPP OdmVOdzIXwCCQzcHR6N JBfxAKnEEClK6l3ceAl FNZkWGLmE0ypyhIvuNs tovEvp3eyisMfsjKpOJ PlMSPhEeRvX4rmpnRjt DzswdWoi9tfstPqesNs TMAbFRHgGpHkF4smbkL ofginhgLcj7ammeBwvu YlKHKeFLIxHeYgJ0nqu iBvSrgzasXsm9ghkpNi dvVxOJSpQHUcNsCrK7x 7ZIP4EQj6XBGeFcJtN7 nwlAyiNOQfg9rxJQUuM LpsCHyzCXagmHR0DRNg L5xwpaDprXzyavXkl5h icmRydzEwXGJyZHJjZj SeJ1ififYtzMtcjjEqy 1xicmRydzEwXGJyZHJj WqDmT3agxjEwkpmaczC tn8zqbwIwslAaPHQkJM VuDyHzK1ttiqOiExdpi tKyn1xgzuFmrsRaAUZc BRMrSkPcC9m2FYR0RAv 6VIRhImSkE7fooDmqUC Jdb0eqXBHvOxO7YUoqT YzrfOo2DcVckRXfBUxk bnRibFxxclxpMFxjZWx rRCOqffSukY99QtgvyP NSQCJqvaZhO9Z2OSKts DXpkhZezLAjgP1sSCAh uBCIAHJto6rbEQXuYV3 dTNLgSTF7QHMuyGnurA 64Yrnkoi44MVIzu2jyX HRycmgyODVcdHJwYWRk ZmwzXHRycGFkZGwxNVx 0cnBhZGRmcjNcdHJwYW FkouH3OAPlBxRoscTmX nJkcnNcYnJkcncxMFxi qqLuS4MpMATbMmPlxjk cYnJkcnNcYnJkcncxMF cccrWhZ2OqVWHbHlZoo nJcYnJkcnNcYnJkcncx CRahlwJjE0FsITOjWkY kcmJcYnJkcnNcYnJkcn qfUMgunxKqG0ZnFQTtg lVacOUwxVpwaPQ6q6qp IPCuH2utqWoHqLL2oZP 9FQDjY7EpmKodRUnwLD NsYnJkcnRcYnJkcnNcY lHaqiubPDrwpwKaF8Mk XGNsYnJkcmxcYnJkcnN cYnJkcncxMFxicmRyY2 YxXGNsYnJkcnJcYnJkc nNcYnJkcncxMFxicmRy G2RrKAKnBgAcxiThIgR kcnNcYnJkcncxMFxicm KtX7RhHKWfoxRtnJOgc AljpJY2i2bqQGYeN1qf fBzYhOI0kFC4SXIeZ0Q kwHt7HBLzDZTnhnKouY 50YmxccXJcYlxpMCBSZ KP8nXQmUfDlR8EooGjs YXJkXGludGJsXGIwXHB ng2EnM6J0DHPeKBsad5 lqJUAdFZvcj8EsFVcTD LWIER4EZY6ayJY2YUtM DVYHQ9nYnEL5GRFtjPU yfDEyfXtcZmxkcnNsdC CfSwWroN0Fr9GqwZd6T CwaVobwaXN6KDbyPdoh zO4stDDEFFRBAnvKKxj olqQaRJ9WCUBAJY0TrS P8BVBheSAjhAMzjScaQ fcicwWpxHGiRyPrfR6p tYmmiU9bYaJuRCtzKQh pCFjkxSQzEBUoc6i2qr 52YYw6fiGbGknmFBBsc NJkJOScV0v4ciGqBFXg MTVcdHJwYWRkZnIzXHR ycGFkZHIxNVxjbGJyZH X5OOKeKFFzGHImPBX2B TBcYnJkcmNmMVxjbGJy ZHJsXGJyZHJzXGJyZHJ 3MTBcYnJkcmNmMVxjbG JyZHJyXGJyZHJzXGJyZ WW8XGEvBjHfktKbNEfd bGJyZHJiXGJyZHJzXGJ eMPW7ATHmPuKwbnKdLM mrwTOsbbAfiZAiN2mvi CWKwFA8wPUfN5r0U4im vQkpOOmpKCIitVn9KRs 0KMdlqBDdAJE4PHKwKN JyJVJlVSB2URYeRyCmu mNmMVxjbGJyZHJsXGJy YIMtBUUqUPL4QGYvUyQ kcmNmMVxjbGJyZHJyXG MpHBPmKFDwNOA8TKVmC nJkcmNmMVxjbGJyZHJi VXBnILFqCFBdPNB5UIL cYnJkcmNmMVxjbHZlcn QykJEkJ0yoaDICuPR7y WGeU1h4R5tzbPq3EPtx NDDsyEa7OTY4HNgoRXN kXGludGJsXHFyXGIgUG QkT2KhlEPWwXPwaieyQ emoU1MnhNibMTGjVHvs jSLyNEOeLUKgx8QkX9J 1ZIFnQHrbo2ylNQWeCG dfv0ZvEMkVSDYIAD7IK T6uxIS3SNzNERTKL0bR gHQ4EHK9tZOmiJIvgAb cZmxkcnNsdCBcJzFjfX 6bNIErM3KBJMFsGGWvy 4WbG0Fjb4eujRTxNBax RcjkaHRlfrQ2BMiVCCZ NJMfEIbPmRX4yDZkBYP OZNMcQDsreVL02BWWzP BOfrGTtKImbU827LKt2 XMPgUOmzf2pjRRGlALx kr1SxATjFLAYKGL4QQL 6vhYJ5A9vIDUTSTFbxA X88FLUoIOFqlCQtDNpb F073NPBdVYqiWTYsd6B gF0HoXdOgTLWwBEejFe jukIQ7EZliYmaipG6tq CBIWVBFUkxJTksgbmFt MG8QHYKJYL3SbXS6CVY 1fDEzfDEzfXtcZmxkcn RyjPZrOlEykN0oxFmog Y5cBaWsSVxvZMeiQTen bZFxLJXjy0g6lq14DRi 0cnJoMzAwXHRycGFkZG CyQ0y7tgUkPVGbKYLip HJwYWRkZnIzXHRycGFk WRNwXAwiiHUzEON4TTR zZOYdYQXnMFR4NBDyXn JkcmNmMVxjbGJyZHJsX IAiCLRqXSBjZNI7PQFj YnJkcmNmMVxjbGJyZHJ eZHQzJMOqKBMjYGK2LG BcYnJkcmNmMVxjbGJyZ HJiXGJyZHJzXGJyZHJ3 MTBcYnJkcmNmMVxjbHZ wjcBrxMPuE5fvqBVNvC I0hJWaQ7w3T5oliHefO OxeTDApxLj0QSi1AQnp iVQuNAQ1QAHtSVUtZTZ bCCJ4HETjJlTkocLmOO xjbGJyZHJsXGJyZHJzX QNcQKH4FDRsRrBhjmVt MVxjbGJyZHJyXGJyZHJ oZBJjWNF9GMNwLiZwny NmMVxjbGJyZHJiXGJyZ QKhZJGyAMM8VAFdOgCl cmNmMVxjbHZlcnRhbHR lD9rrzSTHhML3xVIbI9 o5P1jusKe3KEcgVCSgj Am2FFA6WCqkMDZkVEtz oLBtWVIxHXLnI3SrmUk wYXJkXGludGJsIFNlZS Dab91cGA51HDZtsLtkl C22Pwmney46KCHeq6wz XHRycmgyNzBcdHJwYWR kZmwzXHRycGFkZGwxNV a3maHhHECgfzWtoOWyK AOahbD8BTGdKyJkixNm YnJkcnNcYnJkcncxMFx cqdZkC7DzENHqEeCmcj xcYnJkcnNcYnJkcncxM JudycFgV5CwTYVkCnIv cnJcYnJkcnNcYnJkcnc sQDbrziSoO6ZuBZTfRr JkcmJcYnJkcnNcYnJkc mmzSBrjlrYtF7ErWZXx tvQouNUzjZvtrLJ4l0i bYEYmD8uboNhUqYJ5lA I9ZYEcG4CzaKkjIXcgL GNsYnJkcnRcYnJkcnNc YuCfmnbaQDvvkhUlI3B xXGNsYnJkcmxcYnJkcn NcYnJkcncxMFxicmRyY 2YxXGNsYnJkcnJcYnJk cnNcYnJkcncxMFxicmR rP0VnCMPtVlVqiuJdLs JkcnNcYnJkcncxMFxic uPgF7WtRQAbffQafBAe bGyykNO8z7zuQBZoX8x baBoZzHX7hJE6UKPtI4 XgfEg5NSSkMRLzlvYds B81ZpkcdMVsS3AswWft DNYeCGiqyYCyEXGxt1Z bB8A3LPDiQNjgv2sxSA ZbYSvye1CwEUfJKFWKT G1DAK3naBH7JFcDWLSX W6mOmMF1PCP7xOS4cNT 1fXtcZmxkcnNsdCBcJz HsrW5GdUFtn3XmxXW3V DScd896wx7tftRkquIm uLRts0BknPJpchU5iDO tp3kpUEJrb9vddWTaXE kgBfusnLBuqgH3EXcZJ DOXAIjSUlDyTZ4uRZhP L6KBPtO7TzRuSgY4DZT 3KBE8q3rawBIps8m2JG liNOR8sOfsnPUivbsbt yJjICPfsQwcyJ83Oavn nj45IKAfq6xnHOCsmzq nGeYiiTCuhAFcv5t2gm BhZGRmbDNcdHJwYWRkb IX9YJLncWTlBQCiK0q0 qjXnVHTeEIDyE3szjeN wpFlsxoZhw8fyzsTpov SfFCCiPJSfEsCgG8dib fOmpRfvnpYkc1xhjtPp iiAnESTlDHQbAiRfT6o pxoNvpaslkzEvc1rckp RydzEwXGJyZHJjZjFcY 5dzunAhPgppqkQtg5bm cmRydzEwXGJyZHJjZjF kT0z4RDF7BMc9SOTvSk QhV7enlZyxXKYiu6uvN TLdLKn0XAstWTdhcDF0 HCNlU9hljvSiiTjowmR vo1woxgZfqaJaYFOoJZ YaTfEnT5mjhmLwhRzsi dLfe6knwpLnvpZoLPCy BRLvEyYwB9ettePcsls flvZwl4uwjqYkzcKeTY BwYFEzQmPqI0ykcmQxH ybssiNhf6dwbeYklpAv CWTuQGCfCeJcD2s4DUM 4QNn2GLDnFgQaN8qqnR beCQGex9onVOYgLcM8D YvtBIawdCx3UcUdbDBo ZFxpbnRibFxxclxiIFN 3HBvrjE4nYGujyGPzn4 c7nFozU1DevZgfGWVgK WxyhDHdKOGiVKObc1Ct T6S3RHDgINkfi1hdAZV gURcnj5MqFMrTOCRMWB 0KGR0jpCD3HFvIWKVZB 4mBvUN2QWAxkZG8pGC8 fXtcZmxkcnNsdCBcJzF coI1ZzZGufkz1HCIdMX vtl2lbFWTeEXdlu7VcR HnYXJVDHS4MAZ8lvXD0 TElTVEVORHwyNjAxMnw gPdruMy44LBYiBITdwL VyRMpnJ741UZJeIIyoT AYqQePwG6YmcXskdlZx wTvyx3ifjPDiORyjAUS tfCErVHn6bTw4IQKiKq xwYXIgSEVSMjogXHBhc ez8xw93HUs8beGcFINf vEEjkMBgQLCsiFH6QLG nnHYqNTNyO1z8egKhIK RnYTMsZ9lexzLxnRuwv vAwz5ixnwVryeOaWIGz RCOvPzQjT7omzcZabPn cfhEna5buinLwsuCtHG LcWGRiIvOqP2ljtaEyx looicIbs3qhotZflzVh MGPjVXLmWnMiO6xgapA rLtwuspAzs7dgisVgds YvLZLpDJQjKjUlD8u9I UG7QRu9JZEzdXKybCL7 A2cetYdmKQfflGT1t2g jCBOvJ5iodVoEjNN3jV e5VRrlQ4RxeJp9GVm0T AZsuqHhhI79YlmhxSIf cDJccXJcdHgyOTcwXGI lQVcxX6CyJCYcqKfpj2 B0ETSyp36mPudvZDJ4K 9AjxJqino0bJXA7hJGy qTLhFUBerp6yeJVbYKa zkjSybBrmvUUjIyz0fV Y1SxLiRTT0MWlPMO39U X1lEYUcsAx1MMrzTP2t u8QnDIswq1cxk49mp0P 0YWJsZXNccGFyfVxpbn HtzXqcaJCpYap0RCuqp mVzdHRhYmxlcHJvcHNc nUSas4XkpJUdxCPaw6p 0cnBhZGRmbDNcdHJwYW QmnER7UVVftNFpOIUoZ 4y9zvLjMWQxCQJvU3pu tlUfgRrtbfDhe7owacL ydzEwXGJyZHJjZjFcY2 rltrFykRzauvBnj2asv mRydzEwXGJyZHJjZjFc P1kkcjYywehmwkYke3q icmRydzEwXGJyZHJjZj OiY4nnbxRvLstoytNyl 1xicmRydzEwXGJyZHJj FaDjW1g5UVJ5NEh6MVE hZrMnC1yjgQzsXNYcr8 epKRKmIPG2FUlvVFbet CW2IfAfZ3guvfXbsOxa zzVwq5fcveQmslPzFDK zMPToAoGrV9wdbtKjjO qlclBrv6xvryTaqhWyZ YJhNZNwZtSuF3ogatNs hxnihxUyk2cyliQisfB nEQUpVDPnNrPhP1oykp MtZfuplbCcn4wxgiZrh lLfLVShTDXbIuSwY5m2 IIW9FLk4EDTvKpYgW7e xxGugOINub7bfBCIdAl mqKExzACgcpIj2LsEdw rOoqVJmv126PS6wvwKu gMAvJbdtj3jgBZU6gWy wYXJkXGludGJsXGkwXG NmMFxjZWxsXGludGJsX JNli4v6ek83HNi4zfGw PFMaBIe9qqNhBRCwyLM ofJIyCKHqrKH5NTUatU AyBOYrM9l0ypGzDFCvH NUpB9gxfwUeeZtiviZr z0ctvtHbogWpSPQyDOA fAgOgK6dcsoDrwHgfro Qcp9pjlaAafnAyTGQdZ QCyBtBwN2gkyaQrdzgz vlXdy4jgfrLtfdWrJMS aOZGuFgFhB2gmzvHiSh ppwjXue0ldryHysuZlJ JQpFEJzTiOgD5f6MCI0 LKa9DNWytCCiyFD2L5x qtKabEKaegOD4e9lxFW CcB1pgzXbBqMX8lYz8M FrdN4AzzXz5QEw4MNXx siSnbT99NvovtUEsrXG smgWypPXbtNo2GX1ynb CcwPIzFykyq3cjVZU6T RUcsaVlqJ99DphyeCHj oDCzzWnoJaGiWL9jvHM jkiSwP7ZaQKCiJSAtSR Ztb6EiYCmrjVjgY2hgK 7LiXcUiOE11lTJoDV8s cMTjRC6vARJ9TDlweB6 iAQPxMGWhzDWyJ06eyZ dbjHYbAMwzzOUhd7IfF EFtALV9cNMsoF0qFbTt IZOcWjS8tI3hxwRdIPh nzzBrQ3PrxcXdYazmRn ExVvNtSXDnaiDiT6KuO XMgYXJlIGRlZmluZWQg OGCvmNfgk7Ylu0l4qON ubyBvYnNlcnZhYmxlIH S4GJuweZ1uCIZujxEfS E3efcSiZEZvjCHzcrdj LkI6fBE4OOdkPFsmC97 ihUzypPYsPW8uREgvYR YwwO95P6JrfdHleXFxQ SOfPNO6dEDyDEAuayOc v5e8yPojJBvbu7DhfWp ymeGsxdUggNIbnNS5qf NdVVWtg1QboXTqj9AuL 3SucAGlVKKyo5ByOYGu XG7rRDonD10zoJgzySH wtIDhDqWaozAtt4VqwN 5pbmcgdGhhdCBpcyBmY BtsrI8gPTQilSxevDIo G9RskHktxWUfKT7yXZc pdGhpbiA+OPOpWT5sGK F2vW3sQOBtiQwtOBjBF 29yZSAxKykuICBFcXVp un8mTYcdp1UxyJ9sAWX jju0gwwI3BXWtNHTaka GpueRgvHtcp6Bdk1p0p NFtgHXhlX5mWQOaruNp GJtnlFOpNjKscfDco6T ohQ6fxsqusKradAYmph BpbmNvbXBsZXRlIGFuZ ZTharO9FBPhDG7ieZ3i JDIanQPaPD6sOEmvyZo pbiA+VABjYJ7pVVM9bO 9pMUHdwGviDH7yTQMcy XBsZXRlIGFuZCBjaXJj qH3iUMUatrTrZMxcfYX vQgFegrHkp1SyaF4rih cgdGhhdCBpcyBpbnRlb vCoCCZgNZO0pKHstI3b xIQjpiA0hVXhEU0iQSZ xdWFsIHRvIDEwJSBvZi Z2eR7nanQoTRmflgPeO 4FwgdFyWvktUwkaSKR0 R4KxePcurw9uLGN6fCU khZPnMCWqiz2dxI94Sn svlZKrzGG4p3meJU7jh 6Z2SGDdNNGtw4XoGAJd h9ugETCknKKrCOEnO2t 0cnBhZGRsMTVcdHJwYW RkZnIzXHRycGFkZHIxN JiknFHxUMU0DAQgAMPq IVHeDWJ1ZBXiPyWmodA mMVxjbGJyZHJsXGJyZH FjQEFtMPS3APUbFeMuf mNmMVxjbGJyZHJyXGJy MTFyIHFkPCB7CNUdTdN kcmNmMVxjbGJyZHJiXG LtZOWwDRVcVSF8SXXlK nJkcmNmMVxjbHZlcnRh oLKjT6qhjKINnDZ8pJE vB0m7O0voyOfdFlUjB9 UxcCjjPzQpO7wdufHxk AzhzvVez7gdczNahpPa LFGhPLVwZqUgG4djdnW tlVnsvjPjw4vszhFmwy CgLHAmIGGbBcPvJ4kif vMaglsvxeGjg5leklFx ryRfVLYzIQJoGsBmY7z rouXuSqgrfeHtt9mydm RydzEwXGJyZHJjZjFcY 8z2DJZ9UQo4MSHrScEf F1xepGjfJRMit5cgXCO eECE9EVnrQNgicOq3Fv VvnnDdlRGet849MP8fa rYceYYlOseug7rfBXE7 fVxwYXJkXGludGJsXGl 0YXAyXGkwXGNmMFxuZX M6V5HfyVfmha6sPEX1d NLiwWTxOPGvuc6lcHRm ZFxpbnRibFxpdGFwMlx pXGNmMiBSZWZlcmVuY2 C1NTaozMCrZWN5IJCfV yDTVFVozQ6yT36qo6er IdI3IiQrTW6sZwtiZmA uSBgxODG9X0EdsPkrla 5fCLR8gFSloWZzSRPrg j6pwY18VwcxzIAmbTW3 s2loDR5ut1H6EXAqCBS eq3QrBMFrw7duLZvsh0 Dqo4nyzTKoDDKqFamxO LZknUWpUAdyPCs7ihBj ZGRmcjNcdHJwYWRkcjE 1XGNsYnJkcnRcYnJkcn NcYnJkcncxMFxicmRyY 2YxXGNsYnJkcmxcYnJk cnNcYnJkcncxMFxicmR qF1ZuLRIgMySftcDuUa JkcnNcYnJkcncxMFxic fCtV9NhXIOeGgMtszNk YnJkcnNcYnJkcncxMFx ypnKmR3IwPRAtsbHvlL UcbQpqpSG8c5clUEErU 8owgHhBbCR8oUY7WIpk ILmoiNH3HWoryXDnOMH 5TMDgRFXiQWQhAMG0KJ BcYnJkcmNmMVxjbGJyZ HJsXGJyZHJzXGJyZHJ3 MTBcYnJkcmNmMVxjbGJ yZHJyXGJyZHJzXGJyZH U7HFGkMcFeelMdBSeys GJyZHJiXGJyZHJzXGJy JLP9PJHqYkNrrbBxMEl qvXDxiqOerOWyG6hlqM XBbGX2bFHaV5b1M4qcl Pb4YNmdJVCuoJy4DEYx GBbuZDA3zg54wLtyse2 eHDA8dJJhgHMlUSXkth 55KEYxppJbcM79Peudb PDbA1UcURWreDlquP55 Jhfftn42YFZmq8rvANJ ycmgzNDVcbGFzdHJvd1 a7lwIrHFFsgLQdhPTiV GYtaFO9UOSojSJqCJQy L5j9uyPhNMErACIbP0r hrvWpbDjgkkRpq2gnje RydzEwXGJyZHJjZjFcY 6wnjvOsqRjhfoZbw3uk cmRydzEwXGJyZHJjZjF cG0xpatEmaozdhiUdu9 xicmRydzEwXGJyZHJjZ yGoN9udhrNbEejccuPd o3huzsIccdHeGSNhDZO bZrVzZ9n6XQP4XWv2UX PvmDDooWF6C8whlVprJ UlmrGT6q6zbKKMjD3za cAoOjQI1sKm5WUaaD7D acCi3UAx1HATxjeWdmI 50YmxcaXRhcDJccXJcY fzkIwGoFaPflFd2mxce doKjaVKakXw6JA7vvuN poVGkCgfdu0obVUM3ZE LociLdlI81AjstrQGop PTkQyJoJ9VlDRUnf6Qz C7J3ENMgOBznu8axXBG qYCmqf7RhRBgFNQNLYM 4LGV3mjHS7ZAiMGYCQY 4mMtQA9QPS7kTW8vTO7 fXtcZmxkcnNsdCBcJzF vhX7FJFswcGz1JQsjAx eatBN9MPxrScbnhN1un CBIWVBFUkxJTksgbmFt DX6ICWWCUE4VcGJ2EYT 2oED5cYW6nMnpLvyrkg MawGHaOgOpgU2adOivp U5dRjVnOKbfPBY3J0Hn kEuczf4mNKV7kAZqzQO uJUTiub0bjA74MbvhwW KypMC0e0acUJ9jn7G8O HOtTLLyc5FnYBEmq7fg XHRycmgyNzBcdHJwYWR kZmwzXHRycGFkZGwxNV u3gvTzIIZtutRhyRBbT XOnjvE7BBHeUlMosiHh YnJkcnNcYnJkcncxMFx nuhCpH9DkURKxZeSqul xcYnJkcnNcYnJkcncxM CcjweEpT3DvQNIyGoWx cnJcYnJkcnNcYnJkcnc zJJvzxxBwF5BuSFLeHr JkcmJcYnJkcnNcYnJkc pixHTrqezWuX4WuUEZa ftGflTQwzLbkmZM8s8k kQKMiF1ysgOmStKB3bI U8KIbuE0CyaTwtMAczH GNsYnJkcnRcYnJkcnNc PyEbipajIEwwezZyL4R xXGNsYnJkcmxcYnJkcn NcYnJkcncxMFxicmRyY 2YxXGNsYnJkcnJcYnJk cnNcYnJkcncxMFxicmR iA1XbYZOyOhEwxqZzCx JkcnNcYnJkcncxMFxic kXuX2BwJNInajBcxGBc oNnkrDN3n3aqHFNtV2b wtJbXiPH2vQK9JGnpZ2 HtvLz1DHUeDX5hc6Fbo 7i0r0cve50wd9D8TIDq RXFvuSXivT7meGXbHDl pbnRibFxpdGFwMlxxcl zpATClHnPXYZDpPX30D SW3WDwmrC2mYismRNN0 P6VppGwjip2wCJO7nYU jrTNjGHVbfb2yoVBhAP xpbnRibFxpdGFwMlxiM FxjZjBccHJvdGVjdHtc EwdrsZU7RGxfSuhfiI3 zdCBIWVBFUkxJTksgbm LgAS8TKFJQBjYFTI86M sRyOfX9GWf7EYx3j1we yNLxo9y5SUchRTV5yJv sXXIzAPS4FYwozM5hk1 xmaWVsZHtcKlxmbGRpb nX1RKxKKSYYTRtFJwXs HS5iJEiVE6STVdD1QfT zLeR7DWm7KDu2m0czwY Ttm8j5YAwnNEG1pGnzx RRhersfypQlTZ8si5Lc MHouw8muc34lk2W4KOK sZXNccGFyfVxpbnRibF xroBJaYpr9RHzlmvHtd HRhYmxlcHJvcHNcdHJv c8MejEZsEMQgIkhuDNB krMDrMPrcTHb6cjNuOO EdecCmiYDvEKVqqkU1E GNsYnJkcnRcYnJkcnNc WgLadbmmSNmlhvDqJ0O xXGNsYnJkcmxcYnJkcn NcYnJkcncxMFxicmRyY 2YxXGNsYnJkcnJcYnJk cnNcYnJkcncxMFxicmR cT1OuOTKwFrPtjxOdKq JkcnNcYnJkcncxMFxic pStP6JnVKGxzjBakJGl uLujbEO6d0rrHWBkF8j cuIyZtIN0cDO5ZNmnU7 VsbHgxODgzXGNsYnJkc nRcYnJkcnNcYnJkcncx AXovqpQyA9ToOFTfZpO kcmxcYnJkcnNcYnJkcn vpEBlpbmPlD7WhLINdC nJkcnJcYnJkcnNcYnJk etvuDPxljhJzL2RaWYP sYnJkcmJcYnJkcnNcYn PyyoemDIkaxfGfT4MyU GNsdmVydGFsdFxjbGZ0 w4hxCWKvS7iucLaMuRS 2iIR1HZzvX1MlxVw5QT AoXO7if9Mhl7v3t2crc 67ix3H5BFTvCCVarCSf nQ0jpXBnUMlovbEvxNk zbNWgKcdttmxnRHR9O7 VdnVetho8aCFL0eUEio OKiZQKsqq5znLKvKSyr bnRibFxpdGFwMiBTZWU kK44kwBKkaSzdDXF6S0 WsiLijvm5lHCL0xPQrj BImUNUnqv1loU15Odyi hIPcxWG0q4poCT9fo3B 7LKQoASFgu3GlYROnx6 xeGTJkxJWfQCSnL8t1p nBhZGRsMTVcdHJwYWRk ZnIzXHRycGFkZHIxNVx mfEBfNTM7WAFbGHUuZK CnHCS4XHIpSeUckoLwH VxjbGJyZHJsXGJyZHJz ETInJUI9CXIdRfNumrN mMVxjbGJyZHJyXGJyZH GlNPSuBZU5FZAwFyIzg mNmMVxjbGJyZHJiXGJy QYTtVCCyKKT6HTPtOtH kcmNmMVxjbHZlcnRhbH FhW0yymPZRhHV8aYPkG 0p6P4lspLcjKTj5JCKt uSb4YLy8I9jnaUNfOOM 8VYKmPJThMBSyEXH9JA BcYnJkcmNmMVxjbGJyZ HJsXGJyZHJzXGJyZHJ3 MTBcYnJkcmNmMVxjbGJ yZHJyXGJyZHJzXGJyZH I5IEZyLePxkvAyLSgls GJyZHJiXGJyZHJzXGJy FGX1TLBsSqHexpXnYMm efNQhfdDgyHRmK1jgkE INaXE6rUDmL6r1Y3gim Tz7VRU0CJVlpWr1TFIc XQyxOIG9dd92pMxwqn7 kNUG8cDDwxKFqOJHavg 79GMKipjJieJ34Eqwgo XRhcDJccXJcYlxjZjIg A4VguyP3RY1vx0JeDQq db7qry86ev7Q4ETOkUV NccGFyfVxwYXJkXGlud HAnZEw3IKYsDDPwVLDz NIudta30HOF7i2yqyVS hPQaxCtwflNEosqT4YM bTXYSGXIeFBoFeQE5mP QhEW7DGNEzTEpvlTmQm XEywKNlgFE40YTNzIER nhGZkKIjjO814KFdnQw pwkHM7PXwuApyxbA2wl CBIWVBFUkxJTksgbmFt IV6OZXKAAJ6RmWT7RHF 8cDQ3nYD2oIowScqiya ToaWIwElVujU0loBpkb Z2aZnIoLFhbQJB2K5Oo bGexxw7dCSX8iVPjzSQ lPMIzai6wpP94PadghR EgaQD7c7wfTI2st5P0R IMuNYFxm3TdYWKfo9ni YBGvxHTgBNFkE8t0wrV hZGRsMTVcdHJwYWRkZn IzXHRycGFkZHIxNVxjb HReBRP9HDXlZTWzEOXy VXY9QUCzZwMcmaNfTBs jbGJyZHJsXGJyZHJzXG ChWFV9LRIeAyIugkHgK VxjbGJyZHJyXGJyZHJz TFTpAQV1KFGiAmRjhvO mMVxjbGJyZHJiXGJyZH DyTMJnYLY1FNZkIeVwb mNmMVxjbHZlcnRhbHRc X7spwTSUoHI6pBIyE0k 8N5oyxTnlAJw0GDLfbR s5JTh6E4cawSXoAGA9X EDvLLGaABMfCXM3HJUo YnJkcmNmMVxjbGJyZHJ nINXfANFvNRWpQOM1QZ BcYnJkcmNmMVxjbGJyZ HJyXGJyZHJzXGJyZHJ3 MTBcYnJkcmNmMVxjbGJ yZHJiXGJyZHJzXGJyZH X3KCPlNeNsydJdNKniz OYwmdYcxTRbL8tjeMKU oNB7gWLoD4i2H0rqhOl 2IZH5ZQHgxRo1VBPaJE cdWSW9ph53pFapjh4oO TN2yXKfdQIkGNBfdy43 TOUjurHnqV79TvqrhFM lzKUuecTotTEnvYm4RL 8cdjGojOAbEhmea5ngJ FE2BIQgxmFmhL60Zvaw hLOowKHcN4WwIJEbuE2 gfeFnxxQmnYXavLn6FF 2iotXdpVWwQgcho9vdE NC1FLlswNIbSLt0XWXx k1nwJljlIBK7pBHnaYY exn5pz3p1ur05MOs5ar BhZGRmbDNcdHJwYWRkb UA5ZABohLBtXKPcS1o5 keJvHJVkEHUuS4potlY nbWwxhkTyn7eqglVsho ZlTIZqUHLsZhMsL2ppf jBlaGfdnhHri7ngqwTk gpFoBVJaKIMmUaJhX5x dnyKcbabaliQbk4clyf RydzEwXGJyZHJjZjFcY 8hvtfTqMbuzbgDxm8tv cmRydzEwXGJyZHJjZjF tZ9u9DOW4YKc3URBzEm ZyJ3qvzHulTMCjb8snV BVgIUa3OMceNSrhhDC6 RXWvO3pfbsMluFqgnxH ds3lxdcIojnZgZAQlQI JaBsWyL7ihzaTggUfkt bXof0nirnVnblXoZUAz HDDiVwOcT9uqewZunyj fspAnx1zegpGtgxLhAQ XjNTXpBfNmK9kehwBsR latokJov2uoeaIiojCj PSVeREErYeDwE4e2JTS 1AHm6SXArUaJuS8mdoH jxZPDuo1hvAZIbMmH1G 0ehVEkutIu1TwYmkyCd tBUuc623KZ7llgEoeCT qZruym0pnCLX9lHeaKG CiPHwbfJPuRKp8BLNlT JFeRFQyK6WvSFAZP4fw RXZhbHVhdGlvbjpcbmV dxKVofEt2AO9hmoLraT SfYomor9teUKD9ITHtr aUqnR67SeqltHAdjVBu MqDoD1WpTRWtq7RvK0B 6OLWbGYfzq9mzOQEcAW yyh0LsREjKUZYCTQ5TH M3zcLJ8VYrIUTZOK8hH eBG3UBX4oLKjgQAbbQd cZmxkcnNsdCBcJzFjfX 5AZqapVtpXHMQ5uVagO T3aaWZlSVTvnwVqtCV6 JEK8NBNpLBtwu7uiVBA qFUnds1HbKSyFVUXITV 4WDH2njYF2DNwWAOQBE MqrQdAmUCktEWnmQA76 YBPdCTIloIZpCSeoJ97 9XHBsYWluXGZzMjBcbm OsdISykQc8BE2jixRxs OOdJjnkw2rnSJU8KBim zDIsKPb2ZUGov9lkWgg bSTY4yPPdvFIpnj3bi1 p0wf38BBd7qsAjQmG5V Psyb8Mza2ccnMQeMAQi ZmwzXHRycGFkZGwxNVx 0cnBhZGRmcjNcdHJwYW FcmhU6NQTsCmRejgPmQ nJkcnNcYnJkcncxMFxi dnDgU6ZdHJCzIsUqiis cYnJkcnNcYnJkcncxMF outrQgB5RpFPLyHlPwr nJcYnJkcnNcYnJkcncx OScdncSjG9SyMYDnPyJ kcmJcYnJkcnNcYnJkcn ceLFqkkaSgN0ZfZWQbo pUniTEdyDiriDE2h0mg DHSuP6whwXzLqEO3gKL 9NFpgA5JdxYypMUsoGP NsYnJkcnRcYnJkcnNcY jJkpdhmJZarhkVoK9Yy XGNsYnJkcmxcYnJkcnN cYnJkcncxMFxicmRyY2 YxXGNsYnJkcnJcYnJkc nNcYnJkcncxMFxicmRy Y8TxUWHjTrAdovDnDkK kcnNcYnJkcncxMFxicm BqO9HwMUJpjfDpjQCkf WzvqIP9b7ycLUQgO9vr mEdUgUN3fMD9WDflN3H ouYg3NWCzKF6bw5Twn4 f2o9cbs42fn0Z4GNNlA RWqmZBzsL4zoYFwZGdm bnRibFxjZWxsXGludGJ kKDYaa1qdMSEpDMD5TD C6ZKqqVBXzweHERX68A xujURYvhpu6rw71FIm7 cnJoMjEwXHRycGFkZGZ nY6j2tpByAWPoNXExbL JwYWRkZnIzXHRycGFkZ FXwJMdfrRQhKKU9GBRp HYRpMVEjYFZ6PGBoTnU kcmNmMVxjbGJyZHJsXG BvFMQxCAClSNG8HYUqF nJkcmNmMVxjbGJyZHJy XRTxGFEwQBSkBZE4HEZ cYnJkcmNmMVxjbGJyZH RxOAQuJMUmQBZoATA7U TBcYnJkcmNmMVxjbHZl qaCqzTLtW4gfeGUNbRT 1tGOxG7z8B0ezfDwgZP fwVQGfxXh7KCy1NJfcn AKgLNT5YHRqOQVuYEFj UYM1ZONqEjWccpFeFEd jbGJyZHJsXGJyZHJzXG MoOII0GKQiJdCkemAuH VxjbGJyZHJyXGJyZHJz GVXiUYG7AYPtJrVqdkA mMVxjbGJyZHJiXGJyZH PsSNHnONB9GVAeJwBqg mNmMVxjbHZlcnRhbHRc Y5vrhXIVoNO4aZNdF6y 7G1pdpDo9XKoyMEEyeT m3LLH4BFnoKXUeOIypu ILsOTXnNAErPQxzSN97 lZAfOWjjN8jxemP1OZy fZTbpSTSizcOogM04Yi wgTUlCMSAoREFLTylcY 6UxaSnxthJzdJgiw0tb lBMex8CdiMIzqQGfWTh 0cnBhZGRmbDNcdHJwYW RswNA3AJYcgCIfJLTtZ 8g5pfUxCIDyMIViP9ew kgMptMgegqNxc6shxkD ydzEwXGJyZHJjZjFcY2 hlriHxjBexqzYdm7mfy mRydzEwXGJyZHJjZjFc F1tmksEcqgurdxTir8d icmRydzEwXGJyZHJjZj XlF2ohteSgEiqsfeGkj 1xicmRydzEwXGJyZHJj CnDpV2b7OOW0WKs2VKU sAqLrR7mprFwsFTMex8 maQIVeMSl9DEwlWFmtp QM7SQLrB1cuhmEkeGql jxNzz0miuvPpflNzONR oSHRkQpYjD0rfmbPrmA lytcGcl9mdglRoqwPlQ OKiWBCaMlWoK4guveIt jeaelyUvc4sktzPbdcA mZRBsLEHpUyAsD8ldoq JxYgutiyOhe4itbdCuv hSmWKXyUUThDmJqB5z5 RSN2UHl5PSMtKdNsN1u bsPnuJAIwc9wzWSReFj Y2YJcnQBdmsCz1WrPyt GFyZFxpbnRibFxxclxp MFxjZWxsXHBhcmRcaW5 8LhifiSQMl3whFI5fcQ GwwlRxUPZ1QTgwTETKe 4InjvR9ROHRs3LrzOc6 XT0aBQteBlGwFXLCcDy uFINte8n5mNBmXX8kXo B2PLmzNRijIGbvzKSrX NPrh4h7vj89PYn6zwDq Ift3XQSsaAKuJSUmB6b 0cnBhZGRsMTVcdHJwYW RkZnIzXHRycGFkZHIxN VwijYSpZRL2FLAbGWUh DTUfQWZ7XPLiIjTtizJ mMVxjbGJyZHJsXGJyZH HmJBAwMSG7YJTgNxJyk mNmMVxjbGJyZHJyXGJy XHCmPATjYPS3SCEtTfC kcmNmMVxjbGJyZHJiXG BaPJHuYZQkARV1KIBtC nJkcmNmMVxjbHZlcnRh aOPiJ5fnlILEmXN7pMS nO0q5X4dupRujIYjrJS RldPp1IUp0ICdwbBKyV WH0PMZsVLRpQVSyCDN1 MTBcYnJkcmNmMVxjbGJ yZHJsXGJyZHJzXGJyZH Y7RNUuDsSucsVgSIdtz GJyZHJyXGJyZHJzXGJy MRK1QETyUdDyxjVzTDl jbGJyZHJiXGJyZHJzXG MhUKM4ECMjMlZehpRoF LzliFMxrtEhjMPtA5uq fPKWzLO6lTUeB9j5V1m qoMr4UYsrQVEfmTo8VT B0VQsdASPmWAuweZGcH HFyXGJcaTAgUmVzdWx0 uxdaC1JuiQqoYMPnNWd ylATyVJFbWEAie9TtC9 P2ASFfVErbt1tbEYQzP Urhq8EhNLxCEGAGWP8U RJ1rbBM3KBaCMANQC1t DcTT6YBM5sOTdlMEvqA tcZmxkcnNsdCBcJzFjf S1Hd6lfJWocVwDqy4hl aWVsZHtcKlxmbGRpbnN 0IEhZUEVSTElOSyBuYW 6wLAvKL1YLHpN5SnKbT MA5GsQ2KeD6r2ltoADo v2z4EOpwXHW3oWveyMP pblxmczIwXGNlbGxcaW 83Zmjhxt98GNVhz1flO HRycmgyNzBcdHJwYWRk ZmwzXHRycGFkZGwxNVx 0cnBhZGRmcjNcdHJwYW GeryL7JUXkXdHbwhJjJ nJkcnNcYnJkcncxMFxi spAnK4LlBYWuOzWvnwe cYnJkcnNcYnJkcncxMF ujxjCtT1HgWLYbYqHzw nJcYnJkcnNcYnJkcncx NGpxopNeK2VvKHSeIxP kcmJcYnJkcnNcYnJkcn obNCbqgdOtS5QkJZIvn gLvqDKqeLiooZD4h4nd RXHnX0xmlEcHyVS4wGY 0OSNrM4VnpZxlRHseOA NsYnJkcnRcYnJkcnNcY hOtkcygQMyqqrTuQ1Zk XGNsYnJkcmxcYnJkcnN cYnJkcncxMFxicmRyY2 YxXGNsYnJkcnJcYnJkc nNcYnJkcncxMFxicmRy N1CiAXTmLhQqmiBpMtS kcnNcYnJkcncxMFxicm HjC0XlAJTbwdVggUTbb JriqUI7l3nsVXKdO0hg kKcUqKO7yGK0IyPyT0B qtVg2YXJcTRQqarZqcZ 50YmxccXJcYiBQZXJjZ Y20NWF9GRdcqW3fYrqh KCghHWKaoyGeqX24Mmg cYjAgMTUgJVxjZWxsXG mdvHDtWZQlm8b9sz83K CrgZFV2yv20BRJocZYz POWbL9v5weOcINUzFDQ cdHJwYWRkZnIzXHRycG AxVIFkVCtreGGxMRB0A OHuVRNcMGMgFJM9UATe YnJkcmNmMVxjbGJyZHJ dKBRvITUrLVRnIIY3GG BcYnJkcmNmMVxjbGJyZ HJyXGJyZHJzXGJyZHJ3 MTBcYnJkcmNmMVxjbGJ yZHJiXGJyZHJzXGJyZH J5AQQhWtUhcpWyZDlfm MCwyyApfMLxB3teyDUU jDN9dHKzJ0e8P4rqyLi jLYsmMUAsfMj3KCu2HO vosJKsPDA0MSNiHUFpE NNwJWV4NLMjViWstdGn MVxjbGJyZHJsXGJyZHJ dGAMiMFN6IGUeJuIbnt NmMVxjbGJyZHJyXGJyZ DQeCBPgTLK5BTBsDqMp cmNmMVxjbGJyZHJiXGJ tTYZuLCJoZBD2UJZcYj JkcmNmMVxjbHZlcnRhb YPoY2tmnKHUhZP0zVRs Q6x9G7tbuPf4KStoGEK rrUz4KUY3KQqaGHWwQZ yyjIVnRSLjKPUbL1Tka FxwYXJkXGludGJsIFNl JVTra39hIP62ILEyhVp ntZ51Diaaqd54MYQgyy VbvKi5NiXbZDDluBTfB QEaqcHcgRu9NuTwSXCi RFFbodmrWMCtFnAVt69 sPB57EsOpbGCsJQPiFD NmMCBTdGFpbmluZyBvZ iByZWNlcHRvcnMgaXMg lHGypkKpS3WyXEWxIPA fy0WcAYAtGGVcmzNsg3 s8DRWszZAee4ZjfFbkc GFyeSBhbmQgdHVidWxh fwEiCSD5ZFYflb0xBSP lREZnIGJnSK06FWtoZC N8ZSQ7YGodfB1rMKjeb kJdGZRypM2ldLnkWCuu jiNydJOrZX8kF4RvlRU gsGylZCB9QJQikSGnza 0bWC0jVLHkPDddDNQnG LOekiXpj7a6ZRP4jJQ5 eJUpFVZqlEJydg0jYYS gorafPGWfLsMBs239ab 90ZTpccGFyXGIwXGkgQ lPkAPU5UILhBOWvpJQb zqK1n7ErKXGkxgDlRWY eoe6owjtnNfXbyu5thb 9pyXavSF9wpFQnEDbhs Ew4RLZgFMJsWMRsPPXf CEBepFsiPUQymrUjr0P oXFqpxdKga5NgYIHrzE Pco0WmXhRft7IwtrVej wBiL6OpOBModNe9CRyt q5EboNrblwY0GTTys3A zjcneXiZ6GWAqga8geX hmOWMqtVK2aB6eGYI7M 1DdTKIlTSjfnQ75qrIo e98snO1oiNQnyOHvED0 kIHdlZWtlbmRzLiBccG MbGVGmyuSSHiM4mUSif 0UcU6gmKB2pmDOaORZv IP2zZdv8TPQpGz5qXMv oarvzgcZ3vLIaVZwsSZ ksoELvOAGaCR7sF0W0k XZlIEhlciAyIGltbXVu v8gld9QtP7fhwOkiJYz tMGzAApsvdpEjkVj1CZ 6eyCF2iZKtkwZ6wYKrj Wk3ZYQncPFon5DhoTFz HFZolGNqFP9nE7A8tOT aZQRdbVWeg2RjcLWbqD OqsPLfYHczofLcb3fys 18xrKoxjOHesSVnaC3e ayUhA8WaQOWgZHJmfLZ jIILcqdQnaaKxw99bPW BqXBKtk4Nbf1Wvn3z1z R01tQPgUnEqN8Mdntcs JFgEFBR0XBqojI5pZBI nd3WqjQFdVZQyCURrFn 8qGMhxQNYeCKwixMh2M OKcoxZdaWs0AMQae7Pm MNExQTW5DJAeRyuuUNZ ieSBhZGRpdGlvbmFsIH Quu2FnAZ5yJLOdxKRod lV1rAEpLHDwqLQbUZVf lCAfTQSdew7ouwbwmUF kIJHcQlJuCD9oPOKOft DxqqFptLWuoI3iDOLxq U5wEP6joX1omLhzmS5q dZPyCuFBe2viFA0xgFS qNGZ0HbDaAnmrVxzwJO W5Tq3mlXQhUTGoixVNO gI0rXTzw8QbZ7lzIP0h d6PsJX0vqAUvudx2cKE qnPnscPGuG6Mef0ZhOK S2ZZ8SBAFhWQJdm08bM LWdrdAfZH8qoUe1xWVm cHPyuUjbxMpyrjO6nS8 zyiBdVQazVtFzUy65ry VjxU6ibIfpAICaB79xc MHpaTdvCuQxJJJxj0sg K4mtwjOtx0Y7AzOGbZD wUJAzf4KqvZOekZS7PM Fim6TmPpJlonB3WYxtN EC4YAUta87hQUBdCQpo iVImAWYdgYixq8Qvlv5 gIFxwYXJccGFyIFJlc3 XngHMrv7hvbQqsFKRpE GludGVycHJldGVkIHdp lLrkU1Z6dHldmgXdxUT xzmH1bKKieHxiTHmraO 9vZCBvZiBmYWxzZSBuZ SrpqWz2yAQ4IT0kEERq R9HzS8fmhDEhDKCxZQA daUXmft2xLQIvcwpiIZ WoFBB4VsInAYX8ALO4P Yg4aPCiHnZmvWmiLUdi KZU4CxGeVIw9vSFsCxB hpNu6ABWsEAN5FSn0YB i3cPJ3KRSriDn0EaSeA KL5LuhzYRm4pFq1TMKe wNr2RhWcTIC4RFMhHQW ccGFyXHBhcmRcaTAgIF xwYXJcdiBTTUFSVExJU 1RfTUVUQURBVEFfQkVH ET1cWcAuRBK9LA1dVbG 8FKLvoTS5GQ3nSoQzP9 ewRHSnCfUeWGG1CT4sI tK3OYG1pNM3MM5oGaDp GQr6ACQcCoRlBdO1Rd8 aQgn6AoU4ANG5tKu7HN 2pToMwBpzlLX8yZhU7A DEwfDExPTBfMjYwMTF8 KGE8MQ3eEmXrMBkbOb2 eFgyuKU8jWmFwScwyAQ 2cDuC3ONQlrEM3LTZmB aOyXTd5RLy0QN1pDtGz LWxnWF0nBfW2JXX5zOZ 8GOIiEdSyYUk6QfK1MM 7zVuHbXCzbOT4vNEZFG HAHQLxZKU2RLWADBUWE TL8PLvPbV6oGFMOSLtY fTUVUQURBVEFfQkVHSU 2zGRe8YKsncYV0KHt7H FxZQWIODBIPQ03VKZCL AQKGS3ZOEOIVSJZQVRw BIVISTk8BMAOIPBKNMP 9CRUdJTiAxXHtCUkVBU 2PBCOEMGMrHPkPmT4Hp C1deHO8wZOpmHGOOzED 7UdP2KUTvVH1xSZoGBn FEN5KSORNDZQuTNjRFm HGtzb6qxUYwACukbSN3 EzGmCWKiiOLlv5YWUKP TVFBBVEgtSUhDIFNpdG EmWDeerVO8HpNaWXUfz AAhb8MBEGTKMVWGVNkz OEzCLZdmLINyDDvye2N 6XxNzFBIrqXRvq4ELRE FTVFBBVEgtSUhDIEVSI HPjKBHuz74iCImrw1F5 BxFrXQUdbJAya7DNPCO TVFBBVEgtSUhDIEVSIF Rwg9UddZHVoXN0CzQ1D GN5JJ17YVrEQxDIO8LO QVRILUlIQyBQZXJjZW5 4XJP0XXclbY1wTSaWsV Gxx05roCy7PrGxBhZan Mpmk1GEONMOKMBKXMih SUhDIEFwcHJvcHJpYXR hGEAyooFdd1fmXDuDkO Jfj57wiQj9OiSiKaNit FLmWMdOMbYEB3FXEVLW LUlIQyBFUiBTdGFpbiB JbnRlbnNpdHkgTGlzdC Q2AjPaUEWdzOPxAGbGE tMIW8WTTIHHSIhCLcDA MgLUNgOIcI6zAAIZlOU 1CaH2GXKlKG9nYll5Ix UQRFQBLJNAPX2TCNFvK HXbKcMtsLk9SWbdm9Gv OeF0PFGuXY4xW5y5FcF NVUVXEXJERQ7XCJTqON JgU8HotOJUuWZbubbwP dFcJ6S2lD8iEXczXsU4 SAG7ED6iWIc1JrBICZD SDHRZYH7SCNYkQNWdae 6xlgftgOWyG14ubQMwr JNoCV0mqLsssnLgHYmb IqAvDha4VSPhu6PRVSY TVFBBVEgtSUhDIEdlbi IVnEVvqtUVowWct1h6q ZLHzKM7VRRfFaO4TZEf BZ6xZ9k7KpCZHBWNBXP MNL2TDSUnRIDaZpPAUT G3dQLaQVnvsUorJrQcD 2x3KJxab6WGZHOOXWCD VEgtSUhDIFBlcmNlbnQ nP0OopY6tvsusHD5jjJ vulrVpOFdxPkVmMOs4H Cccr6GDIFTMZACCASnf TFyINBcqhiEzA8XajoF qCIzaqKhgXnGnBFf0Dy Zbh5RLELKEXHZRDBzhW UhDIEhlcjIgRklTSCBM bHD8DzC0MSV2NQ2tONl 0XvTBUAUUXLRLGA9CTV OcC6xxNcgxVdXjfLg1J Kkft2T4FwRbELLkyJAB FNYTICzFXGPRTq9OKGN WUPQKZM4HNcQhU8YADI 5DQt3ELLJJMFGZHE7OQ ElCCjOqQ3PQPD6LZt8M JRWEOPWILN4JJgGwTPR ZR9DFWiCXY2heFFYYLD TGOTWtDsQSUW2yRIFSI K2GZLCGDXWCS73VTHZD OJONV4QWHB3= Gross Description (test x5rzyKTaGXBsjXFLMLk code = [id number]) wMFxhbnNpXHNwbHRwZ3 AkihpjNJbyNF8cQA0gk RwufSMhtXRfOC5PHPPf ZmYxXHBhcGVydzEyMjQ vBKUesGSnqJX8HACpUK 1hcmdsMTgwMFxtYXJnc nA4SAWhiETnZ6NiGOZf FE5oitruKRW2SXykhQ3 puuSHUfvnNc9kmOIhiS tcZjFcZmNoYXJzZXQwX JVpfProQJApZHz5oK6Q PgkpK31bd2Y5Jwh9PKV vVGVcZ6ApLH5gHWPbaQ EvF28YPqnzSUK7SSNHN qwsJOZmAU1Vv3gvYYZb iEWnIAX6WAwmdCOfBRA nOFRvOBm5VYIdVJjazN WfOP3ngCznEyedoFrhk 2VjdCBcXGlkIDUxMDAy EUriNCGpJP2LQgXxLOR jGbpnMGsaYBl8FPn9XX 9WUyAiICAgNTAzNzEzM XVhYEg6QOehXA0MQOc0 TgH7DBMkJyV3VDM8ArE cXHQgMiBcXGYgQXJpYW wgXFxmcyAxMCBcXGZiI StaXomlIFdeM23prLfh nH9dBkgvrbIcIYF5TUA hciANClxwbGFpblxlcG ljTmVzdERvYzEgDQpcb HRycGFyXGxpbjBccmlu MCANClxsdHJjaFxiXGN mMVxmczIwIEJyZWFzdC wllrepcMOmPPMbO1e1F GJyZWFzdCAxMDowMDpc TaMhQ0RsRIW7DIgnfHz kml60hGd1UQHcsPAja4 ZyhLO1URIvd9Z7VQZff 4VyqqYpFK1czH7aHAXh a57dDZTfNXNrAEGvL93 zlY1rrUIsI1RrPROoUH ZzMtJlQ29vaY6uTDzvy DE5UVWmRRHpwDadMHf7 JJB6Cv1umCPySZEdjiF VFF5WLtGfXaGxr2Gros PsIMTvFW4uLEvxpu12O XD7u6ihaKHdLRcjFcqt aCBbrcS6XKpNLYQOHCm LAmDoCJ9wUVxSQvyQUM dJTnwyMTAxNnwxfFVTR GV4ZNpgnZmlkEx4y8yh gWJsd4q1BEqqHEK2sDB Rr6chsMRlBIacKkuffJ RjqxN0DVuMNJNWDAhEC wRnSS9xCXbYNktPUsE8 AzAwAYH2TMbQD9AElFK 6Lwj4PKj7pOjqCkqbrq NdbRVkZsZWcP3ebMuow K0dhVHdW4wjVwFmQNCU ClxlcGljTmVzdERvYzB bxmB2GDGmhDEsCMS5DV 5kXHBhclxwYXJkXHNsL VD3JEctkI00hYZfYDNw MTZccGFyfVxwbGFpbiA CKevhZructGvad6MwhD BcXGlkIDUxMDAyIFxcZ IIeVO9HYgBbPVSqMdgw LNfrGWn3QDh2ZE6VMfD iICAgNTAzNzEzOSIgOT h0JAonBS9JAPh4FrRmK QQ1QTT3DIC0VnJzKPPt MiBcXGYgQXJpYWwgXFx mcyAxMCBcXGZiIFxcZm sbVCjxK93cnHxzxB1jV qpuymWuHUV2WNOdkzZD ClxwbGFpblxlcGljTmV zdERvYzEgDQpcbHRycG FyXGxpbjBccmluMCANC lxsdHJjaFxiXGNmMVxm czIwIEJyZWFzdCwgcml ccVEaXEBkB2n6STExTU WclNYtIMvcTRS9MKUrY VThIIHhVoJ7KZvzj8ly m0guiJLmKstemb3iTAC 4fZY5mMMjjUAnJ09mGI ZxvvMzB6htHsYefb3iI DAuOGNtIHRvIDEuMiBj eJRsvqYhCC4haXtkRT1 kIDAuMiBjbSBpbiBkaW FlFFUrjliqVZ63gGPzv Gmcr7GuoUb0bOXeWCpb IEIxICgyIGNvcmVzKSB zbmFpZmDtWPMsC73gZP kuICBccHJvdGVjdHtcZ dnlwUX1SBbkAliflJ5e dCBIWVBFUkxJTksgbmF vPU7VFZ1JOwSJUZ03Mk JsINZ5YHdWG0JMwJS6T ql4QFl0gUljSrggiuDj bIWzQqFBzH7XFVobDpa kkQL9JHrgYaljvP5eiM BIWVBFUkxJTksgbmFtZ J2YKQ4JRC2MjRKxISD0 qFN3DLDBHadabDI4oDT 9sV79LIBqWGRlfTFsIB bxT914JMIrEZiwKIy3u mNoXGZzMjAgDQpcZXBp V70rk4UBc8HdFBTkc7e awZsmd7ZnxSGdHHwcVL FbfAFoFAjrlJ7uHvUxp 9jaqRc8YVcqvtR0BLIy yy2bxGnztE1aTPn4BQb sJKWmF0NuG0LkXGdbNI S6HNGpRxZfGBRiOZEDL rRgIsGRXsJ2HAP6MuC5 HDv7YUWKCvCqXrSyPKB uRzekHLBhBYs5LJz0DF yRYkI3ZBD6UbVoIfHqT MJgBHFxLAt0OKUuEYah IEFyaWFsIFxcZnMgMTA gXFxmYiBcXGZsIFxcbm U9ENTbIBpjTKIaCgDoF CBDOlxwYXIgDQpccGxh tK0gWEWbJ97ds5CFi9I wBZ1OOPy7tvFydyxivX 4wXHJpbjAgDQpcbHRyY 2hcYlxjZjFcZnMyMCBM eH5ndDYdt3DoVPPgGMP yaWdodCwgYXhpbGxhcn spxSI6AAhjuOiqHyvtX NumYsXlBKPpzZTrmJ76 INNzqtAwuRTsc9SohDV 2ANPhc9Z5PGIuy0Llzm qpNG87XRJvUBMbIZPyF tMyA47piF1okMFjP9Bu FDQkAXYmRrZ6IVAmYDo cFKRnFF3mmTBdHUMxfa TdrsXuaZBfcZNbjWK8N FCptR6oAwPiWAGabSYc hBEenIioVpnziWR2WWx yVnfacQ3fzMNTXKNZQz tAQfuntfBxVA3AXD5TJ iAHVG56XiYwYKR6MTkK C1BVmKE0Zro3NJp3rTc cZmxkcnNsdCBcJzFDfX 3QGGmsVhszlUN6LCixJ doovP0udBAZXPIHQynB UpaqxlQfZZ1DPS9HZH8 RwRNsETV8kAJ8YMXRXr yhpDV8hHR9kW30MBLbZ JLfdBVmPKqwY498GWPq WOjtWXd2bxBsBDZiIjK lUSmiTRTuO41pe0VSe3 SgWRTxg0ttxUxun0Akl GVuZFxwYXJccGFyZFxz cX3nDsAzp8xawMq2DLc uhhM9YAKmub7hcOasxK 4xLHu9GUvqAVPcH3ZgK 5QtRPdbUKD9PRKdYrEj XGRiICBPVlIgIiBDMzY 7DRR9DwD2HFo0XCJVUz MgIiAgIDUwMzcxNTgiI Pl8XRj4QDmWQiZ8SMF2 Mub2TlouBPTlFVJlIPd 0IDIgXFxmIEFyaWFsIF xcZnMgMTAgXFxmYiBcX QDsAYyuewC2FWJvFIoy XGJcZnMyMCBEOlxwYXI wMYwwmIbxxP8zZKSwO6 7oe9HVy3CcGS4ACIx3x cXpuzmidW0sEXEjuyUp SDnfcSOqF9fbIrnuCqW hFyVzGQDCanXpw2TiNV xlZnQsIGxlZnQgYnJlY AK8IUS8RZK6FFGgZEJt WSXrVrD5mDi6PO63KXg pm9iuCogedq7uSKD3nR O4qPFqtCBrF16aCKAsz eMwC6jrHdZdbd1aQUCc B4NhMDKxLPXxGMXdzZV bibIjXL0mcEjbBJ0jRZ AuMiBjbSBpbiBkaWFtZ INaudmlUQ52mBJtwAgl r4TiqJy5zGHqSIuvESR xICgyIGNvcmVzKSBhbm RiXJSoAVPhE27aTCgiX CBccHJvdGVjdHtcZmll zTP5DNbsRelcxL5anNK IWVBFUkxJTksgbmFtZT 4EHD2JRdWGQY34KqRnE DR1NSsLR0YZgEA0Mit0 QWp6rReqRykkquGbbNT aNiVSpI5AESiqRoecrP L5GCavMolivS6peWBKN FKTHmtTQxaexfZiYR5B OO6VCI9PoUCsJZQ8bBL 3XIXYRkwzxDF3zZS2iY 17XGZsZHJzbHQgXCcxQ 818IHKtKYgkRDs5gzLo UALeAoCnPUvlBJOyR84 ga3GEi6VjHNYgy0copA clv1BqeEVnDLbgUJBuu UVkDEresM6bAfMmk4my hLz2UWtxeoC7EKOzeq3 spBfbnJ9sDJxdw4pcHE L8ZSEobIMulZPvDTzgy AwbnB9yDnKvMlq1IUpf BDArE0UoX8YzneI9GGL sYWluXGZzMTYgDQp9 Disclaimer (test code = n9gwrAQzDJSfgBKnJuN 9844) dEKJtLRAsm5iiMMUjaV FuZzEwMzNcZnRuYmpcd LTjDLRxHxEvm3ing644 nEYye0hjIWXtLwK8iGM uKMGuyLTeF703HXHcJM ueb1gxx1AnTBTpjBJiv 8L1UFDYjjiorSt7qAaz E81sg3S5UxvdG4fuROZ nLMBcY7XxZE3uATHoVa y3JLE5BEN9KAMzXPMzL 9QtZO0eDKUetKBrZUt2 x6meuInbRCUzUHZ7i7w nCOoeltJvQJ5crx3ayQ g4s6fqrfCrCUKrBDRnz LZFXRPiP1JrcIrwPc0b bAl8aWpwNmmeCZR3Qzc 4MI5kdc35onn7mDftZE HfoligFiJ8ANztZUWeh whdFZs2MJxeYOHwxZJ5 SOFehADkH1SeAFBtLH9 wypx0INM5KBowHOHvSe Z6FJOuqMKvOQTylBggY Qvla638JVY1JsLdBY1e N3Ddn4N2fJ3veYChYVU mvSAeJmDeOUTxoo2quE EhCFpnk6VeYLA9kzA5l SFvbCZtOBPfQH84Mxom m8ZiUnioGLS4QROzzhG rs0Cuq2wvQyLhjiUrM9 laD5NaBAMvECAsMLYrJ eVgpaJtr5Oxk2OokKIc uZw1g5vwEWJcBVTmoAx gk6fmPMA7XXEuL9V5jR Pka7szKZtgYTWpwYU0j rC7JVIppURtP4TkyS0s AGPhCG1rzsd1g7jnKGR 9RVcbMPGuAwA2rjN3RI BcaGVhZGVyeTcyMFxmb 833EJY9NoLkTTYfl1Ea L5TjvXqmE40boZbnY82 fNUYpaStboQ6bsDciyD 5cZjBcZnMyNFxxbFxwb MUcrphrQNxyquT6EWuk dzhmWURlVWreW9jkRbT hIBZdlDuwWFimw8MgLL MzSJLwHvacoaI6HBRHy 18nNLVij2WaZOXojZ1s vZYrERyayjFgcXA1FKd hdmUgYmVlbiBkZXZlbG 6jXHXlEP2fKPOnmpFtv v5cjrUnRJUsUJYeU4Mo cmlzdGljcyBkZXRlcm1 trsAxCZT5INKUDC0SEP DzMXCjk95sSPHqgGijh G7rxKQriqVsZGPeb8Rk sW4juHJJKALcZ9rlBG6 tHJfcq6QssSKheRWadH Y4VWFzn8RqNwZxbxByf NAftNLjY7HyaXcxO9do DGYfJHBzjsIyjIOcz3B mFEGskFG4wEHiLM0ZLg SIt16fUGJcTNJCnlVrC SLfaCvwtIF7emP5jA3t LiBJZiBhcHBsaWNhYmx yLHXfs754ac7wajB8GK IaNIRyeosqv3EpNUTfK KWmlY35DAVaHZQaus0b ewonxQYlliVhO5Hlrjq 3wX7hJSZxEXboUVKbFC ZzMjJcbGFuZzEwMzNca GljaFxmMVxkYmNoXGYx ZQasK2ekGqFnEaVkUsd wYXJ9 [facility] 2021-11-25 16:06:16 Test Item Value Reference Range Interpretation Comments Submitted Clinical History y1tyzWJtXSUnk5xzNOC (test code = 65022) mbGFuZzEwMzNcZnRuYm pcdWMxIHtccnRmMVxzc 5MsU0ZaSeQeDMgpulPo XGRlZmxhbmcxMDMzXGZ 0bmJqXHVjMVxkZWZmMH ozZi0eyGJouKdlHiQuP SAha4eqgzMPlyhupFr3 w8lsFJWgFaY6aSJzMKk bF6fojbSovQJnHHSvOA t6oN58OIQubD7aqXMyT HkpgpWeEtP0QZnjWZMf PpJ7YEShrAQpSHOuP5w yZWQwXGdyZWVuMFxibH TrYLU9qGlll4Z5wQJsb GVldHtcZjBcZnMyMiBO d2CwLOt0jAxlB7BzBFA jFiS2jWNuYJSyEMwsSX KwMNJpteL6iL94RVnhs hM8eGWdb9Wwz10jf250 kD8pjIUvPJG1DHIpRMM vqULoWOEbMWY8NONrcI RoL3cqTCGjCM8yzpvdL JbtLWdmLUYnvAB2BDKq lWHrZ6AoKIBeYDhoJUH ogfd3GcXwGg3xfEYksZ goLKbfe1pcm1lfvFNoZ dr8PIFbPlUrRgwqLGfp e9Rwk9kfYSLpsl9rUDN 6oGGvwVhgk7L5nCRjGA YmhODqmsPzCYHlGbG4N WyjVB5ptl82JSUmYRN2 lf8qgSZfgYpyaiJumSQ nBAxfZ2BaXSMms821KV PgS1DqWEDqu3Q1gwUgK eWhADExgBQ6cuJ6WIQj PJu4fSBgedD0twDbvAA zF5siqL3zLNLwAM0oqm sxd9lpJLgeVOkgUNFbx YJ3fgA7NIWklHPsJ8Iq qX4zFPNwKVybDPOdiij 4DgXmDc9lvKUjvZmeSJ xzYmtwYWdlXHBnbmNvb nRccGduZGVjXHBsYWlu XHBsYWluXGYwXGZzMjR dfBsrkFjzlU2lQoWvVm LfKRkgAW7uWXQqQ5gbo CQiPWAgYRWiC3oxLaMl xG8daJuaQUrqdvEqIX0 xcP2lJ6MvtKq6TMCgeu 2hwPRmVZwPVSSoLL3zm NunnN4wZvEzWyNiBmef VZ0dSSLyU4biiCYtNPD eHZMsN9fcAhXciI3jqJ yoTBftpkUuQGVutk33 Diagnosis (test code = 34) x8gmbFMrZVSkaRM3OdH nDZDks1ksk3FiwPZjtY LpIRhqdYOkvjRnvz23w WI2sY61ZD7zCIPkFcQ9 SADxjjM1Hst7HKPeZKJ niUBvS986y7npr3hvjn WqqXA8KULeHSYmO3VmJ W0aRNXelDEpZ70evPEf KJM6XFLbLETmxXZsXJL mJSZ0RGAitTIlI5htBS XmQE5ctrgvMAmvIUthC AQvvTF9QCSriGOzT0Xz JWAxVPdvPRQatdl0SiK qGm5diJXpmCieLTpsUZ JkXHBsYWluXGZzMjBcY 3YlPLY0KDObXBJzyEpg adcrkSDqQJZhZ4n0MHC yZWFzdCAxMDowMCwgNy MqiACXFsjdXO71AHCgP LJmuTWlRfvuUB9oy7Gy JQLawUDhu748ksMnD3A pZGVkIGNvcmUgbmVlZG zuDLOvf8OjkHshwBUqZ GxpNzIwXGxpbjcyMFxj RpCjXE9QHFPCDaOpATY EEYEXMVCBPxGBWg6NXU ZHZwTSEaMPC1DaRZfYW 6RYAK2JPPJeM7XVNOYp MywgTlVDTEVBUiBHUkF ERSAzIChISUdILUdSQU GVCNstL9kLCEFPNPNRY 1BBUElMTEFSWSBQQVRU YFBDIVYWBW1LVGDATYf NUAltDX7HNCiQYPUSLX RVQlVMQVIgUEFUVEVST sIlM9JRWMOSPZ5EGqMi LlxwYXJcbGkwXGxpbjB ccGFyXGNmMSBCOiBCcm Pvu7MkPXSvK2j3WMJbk SwckKUaplVpj4RnNPJ5 GRHhNRXcV18yGa9mEZW sP99faAYueDWaiLQzeB CvbbywrVh6zkWaf2MfR H2eqDnwIYHtX93zIEFh WPDqcUViKjywcQK6Xap oKRFqrLo3InAbpZcxNw IvYVVaPFGIHnBVX2fTH IIRRBEHPGgjE1UBS5nM Q82ILQ8AQICRGXSTJSv jRToCGZ0SZ4hBOnAIWo FERSAzLCBOVUNMRUFSI AmZBSBEGBHjCFwQU4xj W4OVULGcJNPJKHBCQK9 AC0KKOEDLOBbQWFGUVI RHWAKBNj1xGJYVJRcUL RQmK6sIGEOJE2yrZ3JB REUgVFVCVUxBUiBQQVR YHENYLUpLVATkX46UNZ VOVCkuXHBhclxsaTBcb QeaKBfmENGeN4CcFES7 EUz6mADoJX0vJYWrqnl wJWGbP5g4YLNglSssyO FyeSBsZXZlbCAxLCAxL bgbF22zAQPzgWYlf690 tyZcR8XoQCZhNBHmksL aouLkQUefQIRnx1WthD pccGFyXGxpNzIwXGxpb jcyMFxjZjAgTUVUQVNU JKIKZwJMKFGDJ2UVJxJ KUa8NCTFJBCGHBZ9hS3 0EOPuXGTKMIG9TZNLlG SLaGOedTDTMPHUGJ30A UE7GZMPzmidcsSNnxPn sEQilKTGmQ7AcLMK5YW JyZWFzdCwgbGVmdCwgb MMjbYQetfApx8WgIgzo MCwgNSBjbSBGTiwgMS4 6BGMyPU0gr1OzKEHrcV Fit825kjLxF1RuCEEcS GNvcmUgbmVlZGxlIGJp h7IjrAbtjUIiGXkeMpU wXGxpbjcyMFxjZjAgUG 5ktOprmrOsZaF7uQCfA EZqP6AovxJgR1rriHY0 aXRoIHJlcGFyYXRpdmU yF2kpyxtjgaHvt1JvQC YpfN7nmaYnVamfHVVxv GFyZFxwYXJ9 Comment (test code = 9835) z4yuoDAzSAXoiYR6FiM uXDUgl4ftt4OwnLZiaR JyNWmamLThqqVzia81t DS2sQ68OG3yCJTwQbE8 PNDkodN3Fpp1OCRbBTJ wvIYwF302b1ryu6elhp SpfAF7MOEiEEQ1CLmnq bKiqxJ8KSvzcIPeMoR0 Y1kbMUSxUGfzTFUsPUp fdBDhYZp6EFEmyTHyfw RoRzXpDMZzuSAtkTF9C VOtXS3pcemmIMawEKyr RKJqroX5MFTjcIOvO2G dHZEfGW1ftdejVPS9MT iuVTSrCZZ3VjHzPIJfg 1Qvcvm3ZhRizAYuVPuk bGFpblxmczIwIFRoZSB wvmMld1n5MCOoCKUjrY 9esLOjXVTiZk97pOLuy XRlcyBBIGFuZCBCIGhh zcK3x94iZUmpmVqnW2V hicZbxPxwgA0in4llKm UkAEH5RNLmjicrjI26B BAvafRvaJiowq7uVAKy bGxhcnkgdGhhdCBoYXM hdAavgK3rsvUmIQNppl QgaXMgYWRqYWNlbnQgd R6qY5ewe7RzVpOjmzJo l2t8QBN4pWY7uCNaTTF odFWnul1aiVbmePYvAO GerW92VFvzVUIkDoYkW v99gOJxWoZ3oNZwCDGn hYD0b4hnG7icDESaqFY bjl1nJTzwywKdrZOtka GjF0LuQVXkB8KlwY9cK DV4TiC4tOPvOMXoEQEu Q1QuWyWqUHJqeI73VdK lMVuvVZ5zvVNfnETidP OenI3xqTciUWE4cThqB ER3LB5uXKUvxJXaHLF8 GqPlMAIvnDQ0dSKufc7 oY77uLVLpryGoxRMxfW bzoMEijMkeiSY2fQTia O69BOYrzvSifNrqxs0m MOLpeDitztqoaRK6gLD fqqTiqrB8dMQmfihhfA XhEnHbTXA2UWQtrJseC YAkrEKlu0MfoYReMMDd ZmZlcmVudGlhdGlvbiB twt8nUSM2MhRlHQNjJ5 QyU4zpw78rLkApMJAcj ityUGOfTA0rwH6pkOpk zI7flVSyvHQtiCIeoWY pwoKln7StNFMaGHIqw7 PpYKPqk77liNyvw3IoI XOtB0Rpg32rVKHix50j m1UdD6jzOR0qGX0bWGA dCFUeRAWpvP2ssJMfs5 Ibf23jgBxkYFsmjfSnk 2VzIEdBVEEzIGFuZCBt MW0lYMwak7JzjoteI11 hQsskwBqmGrB4dIQkeN QzsPOytUQmnakoeP0lB JQZrcTqtV69ki3qeZUb clDub7ZuSYDTAAlfW4k naHyofAHvRX0wk7WnAE ioIIfoH9AlfHVmNI3nI LKzFAGcz7TwEOVbx89u jUXwrCReMC66WWK3vLU fgiApHF2jEVc3xCElx9 Vap0G9tRFuXOwruaEfp U3tIpzmEEDgxTOqJLIs raiuBVRbAJXbp98gzqa crdINZBH3uNDtMjigBR CoJuSerZt6vGPxUW2tw O5gvMthcP0enVYdkLMe bCBzdGFpbmluZyBpcyB kMAZcm9MkJDXoxW6py3 VyIGxhYiBvbiByZXByZ ZUedfGldUa3SVuoLCHv gJWuVFv5oPk1IHZwmDK nhJKddWseXnvslCZ4GH oxMaofkG4huMVRWWIPW ciYSzdiwpOhKJ4HMKKC NxLOMX41OxRnBBJ5TGx xfXtcZmxkcnNsdCBcJz LmwS8NYVEwCuZdyz6fd RFhLRHuBEDvILG0zN3t EQQcb0hwhVJuQTrvBsh ynXFvhfT1VShXMEYNMA wOIwWhXF0vHUkOR9WDW fM5XiZeKSP2WJcfgVhc ZmxkcnNsdCBcJzFjfX1 gyXsuhP3hyVhpwsQdWL Mwxao2ag51LGz8fcTxL uSkJZEdvHRjMZMyE2f2 cnBhZGRsMTVcdHJwYWR kZnIzXHRycGFkZHIxNV acyDJzIRE3XGBjTVJoD TQdIHQ0GNSrOeGsecCc MVxjbGJyZHJsXGJyZHJ qEUCiOIS6WSGyPdRywf NmMVxjbGJyZHJyXGJyZ JKxIXIlMCA3SBIgEyHm NmMVxjbGJyZHJiXGJ vVOLvLLQnEHQ3CSXvTt JkcmNmMVxjbHZlcnRhb TCkP2lxfZOWuIC3cDTo G0q1V2dmeAoaAlCcRNS mtMf8QiD4EKmdtTDhUZ H5QAJwJRTiHQYyZUN7O TBcYnJkcmNmMVxjbGJy ZHJsXGJyZHJzXGJyZHJ 3MTBcYnJkcmNmMVxjbG JyZHJyXGJyZHJzXGJyZ GY8KVOlEeIbahCdDZqa bGJyZHJiXGJyZHJzXGJ iLOV2MGDeAzGmdpOmSG jteMVjfnQajHAzL0api JOEhWX5eNPtO0n4G3db lBn6UvAhYEKmqJj5AKR 1MFxwYXJkXGludGJsXG LzrMEcA3KhL7rxRO8aR AivP61xt6sfVuIsV6Qj bFxwYXJkXGludGJsXGI xVTLph7DdE2T8VRFcNR rax5xfDKIvFDeca8OnJ WtYPXSDXO1OWN6nxUG4 RCdQXAICO2zNgSH2YAB ffOU7Vp83PBVwOWYaxU GvLUbgS523ER4KRWIQC kUgRFVDVEFMIENBUkNJ Bo1NZWmzVdjprNR6IYl fMiusoA9giDKFFUMQBp dUEgepooRuSX5FCZLOZ T0MaYF2DADmyFZ0Zj12 PRJnSESvvZWhWIokE22 8VFTyKVrkGMHzAxSeT0 JojSosuxLfvRxse2ffp NKor4ZfwTLkNHPbBvfp VCUfyYNpNWchUFp1vxK hZGRmcjNcdHJwYWRkcj I7KDKqSzKxhvGoAiAdr nNcYnJkcncxMFxicmRy U8BnTZQwSrFrpupcMgA kcnNcYnJkcncxMFxicm DiD9ZxCSPxXdVoxlJdL nJkcnNcYnJkcncxMFxi opCbG9AmUQHtOsLxnlN cYnJkcnNcYnJkcncxMF tqfzJdP3ZbWSYynjVoc ILfbSolaZQ9l3jnQLLs Y0qtjKxBmCY2uTLjWJE oL4QxgHhiQkSmIHHoGg JkcnRcYnJkcnNcYnJkc kieQXaiowOlJ7MmMJAw YnJkcmxcYnJkcnNcYnJ eufhaOIurpkKpP2TiWE NsYnJkcnJcYnJkcnNcY mYmodftOSkszqNqZ7Pj XGNsYnJkcmJcYnJkcnN cYnJkcncxMFxicmRyY2 YxXGNsdmVydGFsdFxjb KR0q5muBCLiP1fmnFhF ePM8pKPaXNSmX1XtqMs 2KUCaTYIqksDjjB14Df xcYiBTaXRlOlxjZWxsX NRxajJyeO25UkoxYnFx cHJvdGVjdHtcZmllbGR 5CMusPxhxuA5xvTKVPO KEGwrXJaachtLaMD4SJ YYOKgGHVC78MaObTBW1 X6hsuUbmKvsfxbSpvUN zHhMhiI2TvWrktRJIvs Wot2W5QYImKRgxc5ouP LFgJFvyt8CqXMjEIUDM HQ4FSM9ogBX6FXyJAPT LYQduAeYuS8sujGU7o6 jsoYOsp9d8GSqzLUT2w VxwbGFpblxmczIwXGNl lPevjI09Unfmar29OCR nu9ukGRQyoygmBDQbmX JwYWRkZmwzXHRycGFkZ HziQCy3xnAaETZttuPi gCGrRUYotoI0IMIySeW kcnRcYnJkcnNcYnJkcn tpYBugywYaZ2DlSVGxJ nJkcmxcYnJkcnNcYnJk wicjTBaxrtWpJ4NqOZH sYnJkcnJcYnJkcnNcYn DnoqkyFRbjggZnV8ZgO GNsYnJkcmJcYnJkcnNc YgUehfvtJYtfirGpU6S xXGNsdmVydGFsdFxjbG U5n9yfZXWtD3fabMwMv OW9zFLqLVUhT7MxpSpb MzQwXGNsYnJkcnRcYnJ kcnNcYnJkcncxMFxicm BrG0NaLYQuFaWwlddxT nJkcnNcYnJkcncxMFxi woXpE9BzNKSyObUomlO cYnJkcnNcYnJkcncxMF rstoBpM2EnIXTrOpGea mJcYnJkcnNcYnJkcncx YGkkaiBiC9MzHQXtmjO mbRGcmXrhbLE1g2ijFV RfE8pyzHmEpRX9mFKrU NCrH5CknDp7BUKfDJTk pyWnoA59MqzcaLw5FwE xPHF4EWkxPUiwYFxgTQ RlOlxjZWxsXHBhcmRca X10EmhfGtBclJYpyHDa mOamHrbgaQL1NTdrUzt uhP9cuTMNDIQAFpcZCb wdymPfBB8CHEZBVdSSV H40FvEvZQF8MEv1rHsp ZmxkcnNsdCBcJzFjfX1 SZ8N0XFMkYKtce1alGV VpRFnns1OpNBaCECCXV U6LVA0oePE9PAdDAYXA JOznFxXhYjb1bES1a3d zwWXwg6z4BGjgFRX5qZ xwbGFpblxmczIwXGNlb KkwcF96Hegdez62BIPx m8gxUKdjr8Kna8epjTU wYWRkZmwzXHRycGFkZG dnKYx6ftMzJYLbiqCdz TDdJOPxwkK1YWBhWjIv cnRcYnJkcnNcYnJkcnc eMYnobsVvC6DtLGVeQd JkcmxcYnJkcnNcYnJkc zyoRSgehsOkH9ZrXYAu YnJkcnJcYnJkcnNcYnJ lgyhpZAjhziYtE9ClAG NsYnJkcmJcYnJkcnNcY gVgcikyDVvcbkPaL8Si XGNsdmVydGFsdFxjbGZ 5g3gnNIWmU0imgMkXjP J0eYAsVBWcV7IsdRyeL zQwXGNsYnJkcnRcYnJk cnNcYnJkcncxMFxicmR gD2GqGIRaKzIryunxXs JkcnNcYnJkcncxMFxic iLuV1NbKVYeLfQouwSz YnJkcnNcYnJkcncxMFx ymsQdY6NqJBZqNfUmrn JcYnJkcnNcYnJkcncxM SosxzKgH4GkRGVvosGk bEVlvUhiuVR1j7ppENE iR0gaeQvEdPD2wTRwYK EuE3JsiAv4IECfPOZok hCzbF60IrezsHx8MpDe PKH0CYpuOWvcMISwi7B ePOUsZsWoY7VgdLweLA JkXGludGJsXGIwIEEyX DFvcTkioL30Nryfdl57 XHBhcmRcdGFiXHBhclx iAVDhQOF0PGT6EVpxPC Fnp92wppbozyieGCvyk RZsCJUnrbXGx8Iii1da biBSZWNlcHRvcjogXHB uwro4iu04UYb0tlDbVG iqUHIbfSPfDIVlA7s9s nBhZGRsMTVcdHJwYWRk ZnIzXHRycGFkZHIxNVx ehCHfLAH0GRGcZEQjXP ExWZU0YOElBnSelqGmG VxjbGJyZHJsXGJyZHJz TCHeBTA8ZPAbQbBgtdM mMVxjbGJyZHJyXGJyZH QoQHCwGNA1ZQJdGeBrl mNmMVxjbGJyZHJiXGJy FSFwSUDjAJG8NKUmMnC kcmNmMVxjbHZlcnRhbH KsB5mscDEXqAO2xZGuK 2p8J7kidRdaXLswIHQq vYl7AMl5WBbnsZWrFAX 9PKKeEWAkHZHbOPA2KP BcYnJkcmNmMVxjbGJyZ HJsXGJyZHJzXGJyZHJ3 MTBcYnJkcmNmMVxjbGJ yZHJyXGJyZHJzXGJyZH W7HAIoKmGxnmYvKDyfc GJyZHJiXGJyZHJzXGJy OXY9ZGMfJeCccxBtQDk umSTjdeGegCJhK7mgoL YYxPJ9pEPyW4u4L4fig Ii8ZAmmNHFhoUo6EMN9 MFxwYXJkXGludGJsXHF dSZMoLXmjJJ86lVHcMV nqZ0eqtgJ1ZIpwVUgkV HPbdeYaqP68MtizfYMm jXDzfEwtIekcnEH6XEa kWqxwtN3ueBPFSTKQZb hRZbhjicFeRI7WZLIVF oPGKR62PhRqZDO9EAl5 fXtcZmxkcnNsdCBcJzF sfZ68PaWwJGqXKHyeEF b1PVXxKCitk5kiNOWkI Uvcu7RcGQjILQZKTV6Y AO9jxJT2KAqONPOGIXs hOaEcPTd9dFI7w9jlkN Kfe4r0EVbbWVJ5wPcse RYplixjXJZoFzZdU7Ig vCtaqrOtfIlev7jouWO to3CvqZZfzGYbWSm8jz BhZGRmbDNcdHJwYWRkb RM1ZLPtsECvXFHyP9k0 pcYlTQYmHHEfB4hrquR nrRsdzkAgn5ywenCqsd SfZFIqOBVqEeUoE9nnw vFxoNigalPff1dnqoGm cyQySLJrTNObTmGhA5s sybTzczwoatLuf7msry RydzEwXGJyZHJjZjFcY 5qetwXlZymmwwUqg4sr cmRydzEwXGJyZHJjZjF sQ6u8AIC9EQc0YIKsEx JtP6jmdTxgAXNcj7ziY AUrUNv8LPhbOMkmeMH1 SAUeO3njeuTtpSqslvL ul0adwsWfviDzSTKlGV LrHrXdW1lderYdfSjqb eEza9wcnkLfhxMxJKEl JUWvLgPwZ8ddtnGpygl fcpZkk1byaaGhrtFbDD AnHAWrBdVvK5ueteXgG rovhtFtr3pixiBpwoZk QWNsRALaMgSzG9q8YLP 2MRt0QKVsVsPuQ4neqY mvAILdp6ioHHBeVaR9A TqsDPdqaVq2RkZrbJSt ZFxpbnRibFxxclxpMFx eCDlwWHVtefYscZ98Oy kbqOWIn1SmxMe4HYB4L DExLTEwMCUsIExvdyBQ d0ItlZq5OJM7JAIzBHO rKDQigFiyuK23Wuoqyx 41UKJlq1jqPQXmbrdsO TBcdHJwYWRkZmwzXHRy iQHpBHubUWs8evFmONX zusVpqWClISVekyQ6AP NsYnJkcnRcYnJkcnNcY pReugdnOJnheeIvF3Zw XGNsYnJkcmxcYnJkcnN cYnJkcncxMFxicmRyY2 YxXGNsYnJkcnJcYnJkc nNcYnJkcncxMFxicmRy H5RzHRKuSgCevbDbMhV kcnNcYnJkcncxMFxicm BnF2WyPLKhjjJfhYOer DboqHC9c2ssPKOsM1bi lJsOyUP7nPG3WNVuN3R sbHgxODkwXGNsYnJkcn RcYnJkcnNcYnJkcncxM QjrwmWhD6FoBIOkMrFq cmxcYnJkcnNcYnJkcnc eHBjtdnKxU4HbVFOiJa JkcnJcYnJkcnNcYnJkc kioRVwerxZmP1EjXHBn YnJkcmJcYnJkcnNcYnJ wkyhmBKrzxbNoC4EeYM KdovUcoSShhGnrwCX4g 6gfRNAdS9hrvRaPbSR1 jDU2XaJgJ2IexHa5OKK sXGJwvpLjnW10AupvjO YzbRQlH9AkuCqpZOFwM GludGJsXGkgUmVmZXJl lhTsDqLSmPmxu05fSKK tYYutBEIvP3gyWMW7tC 9sIExhYiBNZWQgMjAxO VxjZWxsXGludGJsXHJv c7h1vj56DJs7juCsGiN aVBPluSHwYNRgB8s7qk BhZGRsMTVcdHJwYWRkZ nIzXHRycGFkZHIxNVxj hSVnOHB9CUDaZEHpKGB jYZP9DYFuHiAjgvLiJV xjbGJyZHJsXGJyZHJzX VFbIEH6HLFoChPaclZs MVxjbGJyZHJyXGJyZHJ hUFYqLDN0PTQtJqLrvr NmMVxjbGJyZHJiXGJyZ NVyZVOfJAX2JVWkHqEs cmNmMVxjbHZlcnRhbHR xX3wgvCECcPC2qWFjR8 n5O2uvzTemUVnjQIRqj Ot6GHs9NVxloQLhHKI3 AGGvUPZxDNGuQMG3MOM cYnJkcmNmMVxjbGJyZH JyEKNwEAHkWVRsMMW9B TBcYnJkcmNmMVxjbGJy ZHJyXGJyZHJzXGJyZHJ 3MTBcYnJkcmNmMVxjbG JyZHJiXGJyZHJzXGJyZ PK5GHBfZkEiaoHkTJfc uDFcekTetAIoM7gpyKO YrKQ1xQOlM2r3J9nkjQ o2XQvgOXMuyFc7QZG6K FxwYXJkXGludGJsXHFy XCQopVLrGeLgtYd5dfn rM2LuiUabGHZsHIznzK TgNPDxZQWjg3OzQ4T0F UJcSKoia2qnDBKoXNav g0RoGNlFKMCNLY1QPA6 lhYG0TXeWUEMOK9dDdX J7BKT1wCZ8Nj24JKHuX TRoaZFkTIrpQ573ES8w xPUhkzI7CTTcBAicy4m jATMxXXroh4MtZThGGK RHMQ0NNY7doVE9QMoFI ELKSEiqIbGgQIl4nTC1 i2jzzEHfw0p5TIcsHCP 9fVxwbGFpblxmczIwXG ZuhNgreO92Whyzvw43T VHcz5xoVUWtuluaZeYq dHJwYWRkZmwzXHRycGF bMXqkMPk4fsKsTAIdsp BerWAsTKRoerL1XASfA nJkcnRcYnJkcnNcYnJk qhskUOsjnuLlW7OaCIN sYnJkcmxcYnJkcnNcYn DrjcdlANesekUzM1DoR GNsYnJkcnJcYnJkcnNc VvAvdwjaJAowokGzC5I xXGNsYnJkcmJcYnJkcn NcYnJkcncxMFxicmRyY 2YxXGNsdmVydGFsdFxj gLB2d9sjTSXgN8kcqOc CzUQ4aZW5KMKrM8QwoB gxODkwXGNsYnJkcnRcY nJkcnNcYnJkcncxMFxi edLnD2LnZCFoZdGckna cYnJkcnNcYnJkcncxMF ykhoIpB4RgRGYvGbYws nJcYnJkcnNcYnJkcncx ZHipwfKpR0VhATRpCcN kcmJcYnJkcnNcYnJkcn seTEqflaScW7RvIBRon sSvwTGulZgiqVO5o1kg KFIlO8pguGbLaSG1uWL 4EbDsF7SufQl9QGUdKF RvuxLepV48KsykvVPgM nLPBAQxXE98XGX9UXay pU5xJikdYJwsPHYuznB ghW24IvkjEmWvgNBbcO YyrZsiYbrelCF6WSbgT xjmxE0wyGTPNEDWWzcG OrxolrNrGB5BOVIMSqC UCV54JuQhJtA1I4l8xJ tcZmxkcnNsdCBcJzFjf I6tSXPeC8IVOJSaYBQv l0FpJ2Ksv4rgkVEnHIc eRftnyYXmjqO2RBqZKN BOATpQBkZrQG9nWGaPJ SCUKKoEHby8qMnrNgpp nfZtuUApDfTcxB54IEu sUhkefBP0YJtcFqhroS 5zdCBIWVBFUkxJTksgb kSnEZ9TPXsLWN1ZwQw1 a5snuLJae6b0CTihDHJ 9rRegkPUpjbgnpi44PK N3VWCrFmUuGBA8WRHfE Jdyw1bcHSKkJKhyv5Ug CWbDZRIYKM9NRO1vgSC 9TElTVEVORHwyNjAyNX p6mPy6y7pifUXka6c1J SuiHBO3gEazuOZgigbz tmNeTTAizUitfG48Krz ytn83NJVao0kcLMTriF SqTQZtM4y8elMzJHNbO TVcdHJwYWRkZnIzXHRy cGFkZHIxNVxjbGJyZHJ 1EESaRRXkHKRfIIR2FZ BcYnJkcmNmMVxjbGJyZ HJsXGJyZHJzXGJyZHJ3 MTBcYnJkcmNmMVxjbGJ yZHJyXGJyZHJzXGJyZH U9MFSvAgKqlrMvYVcij GJyZHJiXGJyZHJzXGJy UUD6JHZeBrEjloKcCIo koANktwYaxEIzA0pteU QBtLN4uLMdQ8e9I0xed SxsEUhaAVMbeVm6KKp2 UPvuiWTzPZA1PDMvYUZ qLJSqVFD7CJAcMbDqrl NmMVxjbGJyZHJsXGJyZ DRkKCVdKDU1QMJxLdHr cmNmMVxjbGJyZHJyXGJ dWTVeGDMvTKY2KEXvId JkcmNmMVxjbGJyZHJiX HPqRSIrQBOoEIZ0RXJi YnJkcmNmMVxjbHZlcnR dwBCsL8eilLTFwYF1qC OtK4b8U2nxjAt4YMusL UIwaHk2ELN2RLnySSDv RGfhyRIzLDKhSKXcQ4B sbFxwYXJkXGludGJsIF OoWJEsq05tIB78RGCcv VatdQ58Ajovze21TSZv v0ttYIQldKJoUVQkV1z 0cnBhZGRsMTVcdHJwYW RkZnIzXHRycGFkZHIxN EfszWWwTNJ9QLCtYNWa ZIZzNCP9ZOSjVuWfcnK mMVxjbGJyZHJsXGJyZH RaBNBvPBV0XLZfCfKwr mNmMVxjbGJyZHJyXGJy BLGxTYDnEKC5FIZsSpK kcmNmMVxjbGJyZHJiXG VwEKJmOTSpWRL7YCMwS nJkcmNmMVxjbHZlcnRh lGKoR8ilhAIAfQV3zUA cU2s4I0nqyUyhCAgvLM FgvLa9YOg5IQxqoEGqD UD9PNUmFQWtRVMhKFY0 MTBcYnJkcmNmMVxjbGJ yZHJsXGJyZHJzXGJyZH Y6DZCsCuWgjaAuMJyoa GJyZHJyXGJyZHJzXGJy MVE5CYSmMxGhiqMjREc jbGJyZHJiXGJyZHJzXG BqLMR2TGPmVyYgqnCoD UirgTFgtqCbwQKzL6id zCZLbJM3sJRgP3k9V3h taTg0TRrdHNNzlXc3YE Z6IMjvWIPsDAiezPLjU HFyXGNlbGxccGFyZFxp aqRlhKouzh70QAN0l4y maWVsZHtcKlxmbGRpbn J6ZQyGAKPPCCeYYcBtW K2jDSsLM9TYZStJIqmo NoHwUyf7aLz8z5rvkSJ bx5c4KPjyRKZ3sYDqoC JvcHJpYXRlIGNvbnRyb 7xlURYxVGVmxjCkIX38 XR7aPYOyRPOekPdiVO1 8XAMkTCwsd4ecTFIsGH hqx7BfTCtZNBHSIH1ID P0dbSP7UFgOOPEESBwh ReOsUht7tJo2l1bjfPC kh3t8XOtlEFC0iOnpqC FpblxmczIwXGNlbGxca J48Txjsek62SNMpi1qn XHRycmgyNTVcbGFzdHJ ne2t4nhSnNWMojZOcqK RzZGPvdVP8KKOvySImL NXxX2c1yvIlCXJhPKRh Q6uhpwBpzAhpzpWjm0q icmRydzEwXGJyZHJjZj PkD8vcpdLvaDhwysSbv 1xicmRydzEwXGJyZHJj OxAhM9adekSbydamziJ ay7zozfUzcvVdGTKcWH HlErLkB7crbeDuGewnr oAwb5uwchRwejMiWNJn QXNeJvCcP3y9MBX7RQz 0FZZbVeRvQ1kztOijXE Qyh2bgBAArXUw3CDlwA OqjsCM9MGZvJ1kwkwOi uTqawxEsr3uefnLrutI uQBLxFWOhGsZtA6njpn KnjAxcloHig7wiyxXer iMmCAQsNPOzTrNmN8kr qlNxsbibniNzy8qasjC ydzEwXGJyZHJjZjFcY2 noosFkQhtnnyOrq6ykx mRydzEwXGJyZHJjZjFc O8e0IWP1ADo3NWCgVfT pK1xtoApjAYOfo3etNU AzLkB4XSueRCghmVg1R jBccGFyZFxpbnRibFxx wpdeVHZ1MMqpXRyorST hg7h0xWgeX2TgkNtnSV JkXGludGJsXGIwXHByb 9LoY2J3NIUwETmyg2rv LGIqKLzov2HkOEkZMDG ENP2CNT2neTL7ZEaHDY DXZ1qJxDD9ZPG0nAYcc DEwfXtcZmxkcnNsdCBc JxRfcK1LtLOykpm3NTB wLVqkh5dxEPIgDDfca8 QuMJzIMFNBFZ5VPW7di ZL3UQeFQVIZUVsqEpIj FosmXCkeEX19YLYeWXH lpPKiIKiwU789MCXfHZ qfVTAeMiEsG2HcxMusq xWauTiki0veiVVcQDez KOKykLIhQOg7tEb7XGZ wBvsbEVCdYESwC7DpdA Suj62oCGOsV5EngO7zH vgcZVNxhZVxd0HmoBZp fPTbPKh9bqVbTSMstFB isDYmHIBlkAP7BHRqyN UmMUAaB2e2flIdZJTqX PLmV1fqwvTtpFjrgmZy a6clgjXtocXhBZVcIGR bBcZxM9yptkZtpJphqq Tty4bqqhXmgwXvVAHxD TEwHzNlK9jmjkVfdhwe vlDwm1yqmlIhtyHyMAH hLTPoSrYdD7kzysDxLm hjsmUch1jeubLirjBrQ PSmFXXfWrVtT3n0DDR7 CEg7UNBsUtDlK2yogHu oKBPgd8kfGNFdJTlvUP etMFywxAK0TMTiM4aqb wXxhUcfohPpf2lckpRn raZzVOXhMQBgTzJxT9q limAkkAblvmThy8gokx RydzEwXGJyZHJjZjFcY 4bdcoPkqqipzsRxs0bh cmRydzEwXGJyZHJjZjF dM0gwpbDwEeqybyYeo4 xicmRydzEwXGJyZHJjZ yLaO6l5IMU4ABn8OUJs WxSbH7syzEvgLWSgw3g gHHNcAmL8GSgmOVpefR r1ZjQulKIaIVlejjJuo FxxclxiMFxpIEFudGli v8R3FRGrm52wKxHiN2Q sbFxwYXJkXGludGJsXH Gnm4JdH5H2YJSkXZqej 8kgUEIuFCabt3QaERlD YTJMHM9BCB2qhGC5NVr OGUDRW6kFrMF6EAAqmN ExfDExfXtcZmxkcnNsd PZaJcDreQ7VDrXsYeQo VNEdM8Twa7lgiJGsJZo jTdkwyJKcwjE9YHmCWC RZADwYSqHxUH1dXZkIU 8LDHpT0StOuDUX1WRF5 JUV3n8qhyWMoo2q5LGm aCBQ2rZsmkAQuwkgnVK EzDvPyU2AoaOplmtCuy Pxsd2omdHWks8TghBNc mQS0SOs7pdCfCQWibYY zlDXjKXPeqXA9KGHicJ DoKZUtT7j7fgJwRBMhM QNkA9eddfCwtQqdzxZd n3bhjbCqvqSwEOCcWTS vAeDxF2rgjeZwzOaazp Fxy8ejltAgqeGrNUXhR DSuGhPsA1exhwBwiuee jeCzl3wmjlSpbsPqTQB gPRDhVzXpK2osfsCdXr ffmxOwj7qghbVwcjToC TZqXTYkLwMlS9u5PPD9 WJj5IETwEoWlS6dhdDi jEXZlb6clTILsSRidYA dpGMyelWT1LWGcL6ucs lHqvIoxsdBnr0cchnMt koGfGBHnMSXcUnZfO4n gurOaoUdqunPrd3fkar RydzEwXGJyZHJjZjFcY 9vxpjJtxaltduGop9pp cmRydzEwXGJyZHJjZjF uO6avaiOiEavsxjAgq8 xicmRydzEwXGJyZHJjZ lRrQ4e1TYS6YZv8RRPk SmUwJ5lvlJioMUWuj2j pVMAvKtG6WRhyZFlhfT z7TeDcnWFoRRqodnSzp FxxclxpMFxjZWxsXHBh ahYlrX24IspnfFFSi9S riTu2PNC0IGFmBDQmZA BnSHmkbvZYu0TeoZb2K ZX6LXRnQDSuR5DinUxn wsIvnSnnl7wuqPSna1J rcIIufCGiHJx6byFpPC JykQNxzTAvBMUyrLS9G BIlfNAqMXFpY9s3xpRu ZAXpKROgS1stqoRrsYn dupDug3psdiXheeEpSP IyJVCdLmAwC6ixivVcw JmczuGjv7ogdfDkzuXb EYVgQBClTxNxD4afavC obpdmfpLtz5uyvtCuss ZzMAFhFBAwCqBjG7iet nLgAaaljfMgx6hybzTj azNfBTXqDSDqJkTxQ8e 3PNV8TVa7ZMXeHbDpF0 wjxIcfNVYwo9bxIAKfX WmiXApmEEqokFX0VHLe N0wcorJdjMvexzBow2u icmRydzEwXGJyZHJjZj NzX5bnsxGckMaupoBfe 1xicmRydzEwXGJyZHJj JkZrR3mclzRbtnnehbA mj8xqrhGexoFnEQJeVW GxJgIzM9sccxHtZyeya bIas2trrlIxvoGuDGYc FQTjKjXsQ3g0XIQ3ATf 6JKFaGyYjH5sbvMctOS Gyd0wfGXQyCtF0CXftO IvhaMr2TmLquOGwOBas bnRibFxxclxpMFxjZWx jVJArlwLmnD67HnwxtH TRPQEvpvGnL8W3QSIta NNmhsQkcNZklF1xZQYa gXRAQCJyw1lhQAKhJV5 bEGJaQIU0GMHgnPuwoK 73Qrjqui92NGDxl9cpI HRycmgyODVcdHJwYWRk ZmwzXHRycGFkZGwxNVx 0cnBhZGRmcjNcdHJwYW FgocW0VMErWmUjsnPmR nJkcnNcYnJkcncxMFxi nsSjC0DtDQBtVmHzqda cYnJkcnNcYnJkcncxMF oetxXpJ1XwNVDgTnRcj nJcYnJkcnNcYnJkcncx WAmqowAlO7YiXTPqSbV kcmJcYnJkcnNcYnJkcn obQAljhgGtK4IgQLHqx aAygXDvgTpoeGG9r3jm DXAeJ1kjaWhIsBP1dJS 0SLMhO2IgiWgpXXihOI NsYnJkcnRcYnJkcnNcY jMdgvdhOCvnxfCaN2Os XGNsYnJkcmxcYnJkcnN cYnJkcncxMFxicmRyY2 YxXGNsYnJkcnJcYnJkc nNcYnJkcncxMFxicmRy P5BqBNNxNaUajxUtTaC kcnNcYnJkcncxMFxicm EtG1IgKTEzbzVmxWWwb JnynSD8p1xeSHIaB1ba wWkBsZP7kVL5ATMjB8V rfUl0TCLwPDVvdiWgrA 50YmxccXJcYlxpMCBSZ DA3mRUxEnYtZ9JkyOoq YXJkXGludGJsXGIwXHB zb9ZbJ6S7LSUsORigr0 lnMXQeFRgvz1ChNOwAQ RQJGA0IVL8qlRK0KSdY QBJXR8wSmRU7PVAzaUW yfDEyfXtcZmxkcnNsdC BcZdIojH4Uo2UpuUm7N DznYccqwPA3KEfsOwxp rQ2idSADLFZUZbjRZzp uudJtQR4HGPQDTV1AwG D5PNViyJWkwKGtlCgiZ eriesDbjUOmQpVxuZ6f wVlojU3mYwNeNIyzUTd yUArmvQUtWNBto4k9yg 05WPj1ulVlTvkaOTFzq GWeUZNjT6f9xzRjTOQo MTVcdHJwYWRkZnIzXHR ycGFkZHIxNVxjbGJyZH Q1OOKyOBGaQMUsYNF8I TBcYnJkcmNmMVxjbGJy ZHJsXGJyZHJzXGJyZHJ 3MTBcYnJkcmNmMVxjbG JyZHJyXGJyZHJzXGJyZ OC3ZJDwFrLiyiIuNGcr bGJyZHJiXGJyZHJzXGJ rORM8UUDuAwEmiaEbMH rudOZgjxUydAHoJ2pwd JEMlXS2nSDqT1u9M9bs uJrlLLrfKTUakFu5IBn 5DLhayAVrKOO0ATJsYS QrTPSgPPX4EIVwKhHce mNmMVxjbGJyZHJsXGJy FUXuWEIzULV0IRBzKmY kcmNmMVxjbGJyZHJyXG JkXQKaTYFnEYF0XWMxP nJkcmNmMVxjbGJyZHJi YODeVXVkNQWfKLV9GXN cYnJkcmNmMVxjbHZlcn GqiUSjS1ybgBBLeNV6y RKjP6n1P5zciYe4DSvp VWQmgWd6XIC9ALcdOYB kXGludGJsXHFyXGIgUG VmQ3VpwHBHbEHetfqcT bhlR6TfbTvjDKQuXPau jKFsWHKgCCWmg9RbW3Q 2HARyVKpgr8afUYCoAF qzl4SkLBkOQTEZSK9UB Z5pcKE3KHzJKRSWK6uI oZU8LOJ7jKOomNPmsIn cZmxkcnNsdCBcJzFjfX 4vGBWuM6KNFDUjNUCdy 7KiO4Oxr7extEJgFUlb DlnojMJstrE0UOcCLQU NFWtEFeJrJS5gAWkYCR FNEEiGJiilVQ32KEFkQ WZbzPWoXTglC498QVi9 SWLvUXhus2chAYRfLNv dg7UcKUiPZWMWVK8HNO 3kcQR2H7tXGIRLFWcgU M38XTPpBNJerFPhGAmj D206FGUnHLtlCGGxe4G pK7WwLhIdDOHiZFgbTc pdxZE2MUdrNyjofT7eh CBIWVBFUkxJTksgbmFt LP4NTMTVMI6RgHI4ZXG 1fDEzfDEzfXtcZmxkcn XzbGOsFnJubS4toJjza C0lClIxUXsrRLmvOIvy qUPcLDZgv7b5cl45VEv 0cnJoMzAwXHRycGFkZG GpA5i8hhHhZOTlKFChk HJwYWRkZnIzXHRycGFk OTPgEWjvwMOaMAQ1KWZ rZLVuXPHiRNF0BQRbNy JkcmNmMVxjbGJyZHJsX NKvEKQtIFNqJJU6LYMx YnJkcmNmMVxjbGJyZHJ xGMZwXRGdTRQkLJK2XW BcYnJkcmNmMVxjbGJyZ HJiXGJyZHJzXGJyZHJ3 MTBcYnJkcmNmMVxjbHZ udkLaxCNiR0mbkFLXiE C9cRQgE2l6Y5hmySceN YflXXYqlPg7PNx7DJid vRYdNBS4UDNdARJgQGX kALW9FKAeAgVpnyXbAD xjbGJyZHJsXGJyZHJzX AMuHEN5BHWtKyJbueAu MVxjbGJyZHJyXGJyZHJ hKCFwDFW8DYHeAdWpdo NmMVxjbGJyZHJiXGJyZ BZzEFXcSMN4NECePdTb cmNmMVxjbHZlcnRhbHR aR5ltgYGMkIX2gXEiR2 w6U6yxsWr0OOtwOGIti Rq8LCW8QEdqZAFdIDde rTByXGZkJBZaF5QvfGo wYXJkXGludGJsIFNlZS Hsi05bWG43CBFapCnty D99Xmwmbz23BENct8mv XHRycmgyNzBcdHJwYWR kZmwzXHRycGFkZGwxNV t1hjNoHLYituIwrMCbV FYopaH4XYCfDeKgcxJf YnJkcnNcYnJkcncxMFx izfKkB2IaYEEeMuWdcj xcYnJkcnNcYnJkcncxM VstpmLeR3JiCCVzDgIi cnJcYnJkcnNcYnJkcnc aUGptbvNhR3CuDCNbQt JkcmJcYnJkcnNcYnJkc gngYQeuxeNqE3NmTBEa baOilCZklIzikPC1g4y pQDYzW5kyxLpKpDS3rP O4KNRxY4YokVwkDFmuK GNsYnJkcnRcYnJkcnNc LpHmonkyHGvnoyUyR1T xXGNsYnJkcmxcYnJkcn NcYnJkcncxMFxicmRyY 2YxXGNsYnJkcnJcYnJk cnNcYnJkcncxMFxicmR dG7TtHUYzQpVajuRuIi JkcnNcYnJkcncxMFxic wNkR0BcTBKzdpNxcBEu tRbmxFS4q6jnVBKiA9y qcZkFmQD8lGF2PUJyX5 IboEz1DBRwMMOijwUgv K99IztpxEWsM8LxrFkq JYWkYTmnuUJxKQMat4U sP4T4PZMeRNdzp7ntRA VvWYfbv8WxQDwOPCREQ C2ZKX1uqJO9ARtOKIZW D7bDfWW0UEQ9tRB1dWI 1fXtcZmxkcnNsdCBcJz TmeW9KwSRzl7CrjIL3A HGdg229bj7nwkMmxvLm nYVkv0JdbRUezrT2lBN jj5ytUYWfo3deeSGbRV zrTtrykHGnwrS6OKyHR YIDGPgHKvZfSQ2vFIrI H5AZWxM4TdJwMbF4VQH 0WTH7a6megVUbn8u2OF sqFTY5dUihvGBhvgwqe iHzKWVkkEvigA84Nxjy hr33PIMul8erKJIoclr qQsBsvPVmdVRci4j5qc BhZGRmbDNcdHJwYWRkb QR4ZEEtjUYqOQVqM9d8 jdYtZMDaAFLaE0dohkY geCdrrcBeb0rfupPadb IjEPFtLRJzXpXeU0oyu hQxsLrtifEis4mwrcAm czLvTWObAHEoOyJlT8w lppJoqikndpJrc6akwo RydzEwXGJyZHJjZjFcY 3fxkbEtLhfjodNuw8pn cmRydzEwXGJyZHJjZjF tC8g4XXQ5FGh8YHSbIm DaU4vhyKdgOATks8gkL GFiICk7IIyeUArjjKM1 DPTrW3amwtHunFdjtaD if2ssokVzegScORSfLR OtVzSsW7jbxhMloNzeu cXla9zrxjEsioKqPWPb FSExGqWtV0mqjxIclok qowXsf8qfcvMywvEuAS KiRGYaGeOlI9pxnaKuB vsnhjUrw1qeghWcqzTy PVJgXOStBwSgL5x9AUH 2JJg2XPHyYgHkJ5xbdZ nvOYFfe1xpXQRcNxY3I WnpDEqjxTm2LhNieMUl ZFxpbnRibFxxclxiIFN 5SNknaG2kEKdllFOeq0 s0tMwzT7YskLnuTBPmG ChuqHCxKPUcNXUje2Mi X9C0ESRaXVnsv3asPEZ qSTfch8JuCFdZSULUJC 5COA8hsBA6DIoXCQZUQ 7bJlVO1XWKttNR1pPH5 fXtcZmxkcnNsdCBcJzF gsP8DeRCpurv9VTDoJP xks9mtLBIyDTykv7OiF VoXEAMSFM5ZKL9buGV0 TElTVEVORHwyNjAxMnw uWdppHy88OSRxKNFvoA PlFAemS727ATEnXJhdU QYaUfXvZ9GkzXizpiIq ePxmf2jgbRBnKLzxDRD mxYKrJZp6bVc5BPCaUz xwYXIgSEVSMjogXHBhc sc1xa94QAw1vhKzEJBt cHDfzKDsBTKbrNA1IDE ttMAiWHDkM4u8hyDaKZ ZsHZImI2nkyzRerCaul yQmg6tgobTpbsIhOGWo ZHGsOaTcJ5doeiXtaOd vmlGcm5zjdwXqhaRbLX JsPXRhKtEjB8lddjUzw gkfjuHeh5itlgBorfNj ZFWmTZKtIxFuC0fgiiN nPltswkDiq0iyhcVbrj PpTQRyGKSiXkEoE8c3D CB9NGd3IRDtiNWyzPX0 O6jfeSnoNAowdYY8o4h pNAJjT8celChOqML4fU j3CXwbU1DbrFj2ZUf9B UTqjmKjoY30NkhvfURf cDJccXJcdHgyOTcwXGI pTLfjY2ZoMPAiwQqln4 U8MLDff41zRwkzCOO6M 3GnfAhvns0tOJQ4yDZh fFQrRVPlhc0nzNIqWRt zisEbjIwxxWVmGmk6rZ M2TfAoYYI1JQhWSE09A I1fLQShfRn3YFrcZU7w s9SuQInki2jce25va4K 0YWJsZXNccGFyfVxpbn FzwVpimMErFue3TJetl mVzdHRhYmxlcHJvcHNc yGAqy3EabTXhsWVtw8j 0cnBhZGRmbDNcdHJwYW ZouQS8OGHdfQOlTLHgY 0i5gzHaYJIcGDVuH6ct mrUndKngtjNse7aiqjG ydzEwXGJyZHJjZjFcY2 gxbsWpzKaeytSaw3znp mRydzEwXGJyZHJjZjFc X7auouSnxhdpixUki6f icmRydzEwXGJyZHJjZj YlA3zqzqWbBcuylkVzp 1xicmRydzEwXGJyZHJj WnHmY6o7MGL6ILh4UVI yPtFvO6wwuIqrJHOal0 iwOSWqTYK2MQxyZNqrv KY8DfAsT5buwqZafQfg taEyr2kokzUzqjHoQKB nNWCxFyRoX2yehfPyuA yopuYnn2ovjaJjstLwS GKeEMTyCgMmP4qsilVk xgpttzBup8uatsPwgrT fCKNyMTUpGpMsG3ofpz QjOrnqgkOdw6audeKfe zLzRHEsZOGbWkTrA2f9 BFO1VCt3SBKnBbSjB5q wzOmyWOYtt8upATGzGo nlIDtxLCedfKn5OsNnv iNeqESir065LG5xxmFk bUBgQpphi7ciRIG8wCz wYXJkXGludGJsXGkwXG NmMFxjZWxsXGludGJsX PHfb5c4cu59PGc4irUi ZOOnZCx6psShIOCkwOY shWAqGIQemYX3WAXtyH MiBPHyJ5x5kmPkVVFsS PEeR6apicDcfFayleNb m1mmahMvlkJdWIHxAQR dWzIgL8cjzeOibKkbis Ywz1tevvChevStIKPcI BKjCrHgR9ozyxVtfslc ugCju4fcmlFsyiTgVTK vIKNrQvSiZ7xxtqHzHb htyzZla7wxlxPpkvAfP UJdBEZsZwFtE2v5RVI0 QNe8VTBztEWcoQH2J2y zzQhyGWonbQD9x8agRO FgT6vhxBpLiTM1kZy5W LodA9VplBb9CHc3MIAt jjWcwL00RspciUSagCI auyHwgJUbeCb8BZ8hjp UybADvRlolv1wvFAJ6C ZKezkKfxH17QtqncFCc dQWchNfrAaCsBP4ehBL xtzDxT2BpDFTsFLGpBL Utl3MyXHwukMzpA9nxT 6JmKnGjIS31lPNyMX3m pQDpIA5hDKE5WZdjqD2 vFGChMBUgzALaQ63uxU kzwDNbNYkpcXEzc0TnL DGxTKR2uKZphB2iBsZk YEBwSxK4gQ6pkoFpCXw kchZbF8XshuHqLrnnOm WxVsYzBCAtdmEtA4YtU XMgYXJlIGRlZmluZWQg LBRcdMofo9Eol4h6bQS ubyBvYnNlcnZhYmxlIH F7WBagwQ3dEIInbkZuV S9ejrWgCWFejPOxxpah RxS6aUO5KLqxCIdiJ66 gbGypsDDmUK7pKPdgUH ClsR66E7HqysUfsAWiV JGiLRB3aDQfGTXqfcZu z2g6gGlbIWsgf9EglXe gdgEnmcCvzXIwyTH5xp YgACUra0NedELgl7GeQ 5PxkOVhDSXkr4NrABNv AX9fUViuH88kwNuboJH yyJFjKgAgqjEoi0QutK 5pbmcgdGhhdCBpcyBmY DjdfB3oHPXwwEarxDIo O8ZnoJaziVUwSH9pXJv pdGhpbiA+NTDsWG2kWI K7dQ0hEDFibRltFZrMG 29yZSAxKykuICBFcXVp nz9vAJtkt6IalK6cMUL vzu9cokQ8LIVqXHZfhp KhhxKskPcqv9Pyk8k2s HBglJZqxF7mUQVkqpJs URubbYJkEjNsjbVtk8S utP5jmhaufQcwyQDggv BpbmNvbXBsZXRlIGFuZ MLsowP1KOGbJZ2mcH7p WQGgdBQlWN9xLBpskPh pbiA+PUKiSV9iIYZ0jO 7cVHXypXihSQ7lKOOwn XBsZXRlIGFuZCBjaXJj sE5aXAXxriDcMHrnpCF vVrXycdBoj4EhwN9vot cgdGhhdCBpcyBpbnRlb rSbDRYnYAF5nPSdqH4f yEJfteO6nWSbFS4hWQO xdWFsIHRvIDEwJSBvZi L3bG4rooCeKVojinQcV 1IssfQvZgsyNkktEAB3 N4TjvYmdjg2bKLF2oYQ ifSNdSYIbdi6btH35Gj hdiRZkgOT2g9eeYT9lo 8M0KBJsXHDix3LjBZAx n5ptFZDyjWPtBNZiO6i 0cnBhZGRsMTVcdHJwYW RkZnIzXHRycGFkZHIxN AyhuLXrYQY2EWHnUEXi EIWsNCD3RZLqGxEiboF mMVxjbGJyZHJsXGJyZH WvDXLrSCL3DOZlJmPvk mNmMVxjbGJyZHJyXGJy BITbSVWlJIO5ILEyWxM kcmNmMVxjbGJyZHJiXG BuSXIsLDYdSBR8TKDzP nJkcmNmMVxjbHZlcnRh wBCtL9hqhJXQcFN4jBY pY1e4O9bzhMfbYnViF1 AarVnbDhJeB3cjrvKfx DclshObw3lkyrIqhqTb HZVrCKDzNfRdO2mjzoO xlFwgtgQjh5pxcoTdrn UyEQNoNQBnMoAaY8odo lCptduotuGez3bsssYp ooNjHARsJVFtTuNiO5c muyRjBervxgUtu7byzn RydzEwXGJyZHJjZjFcY 0q8WQA7IBr4UYIhEdVh Z6vulWuyHPYpb0rlYTC pQZS1PGkaWNmlwHz1Ou OujhMrnNUdz456BT2xn cCfgYNfEajeg9wrFUJ1 fVxwYXJkXGludGJsXGl 0YXAyXGkwXGNmMFxuZX L6F9ZraMmijh9tYWK5h ERgpXCkHVJavq2rtIYd ZFxpbnRibFxpdGFwMlx pXGNmMiBSZWZlcmVuY2 A1OYfuvHQcRTW4CTDpH dNERWNyzJ7gU13hz3vu ZjV3IjFbDA5jTnxwGiG aBXvuJAD3N3DgmGlror 9zDDO4oBFzxBRbSGUfe i5sfT94DiiaaFEzqKV6 i9phZM9ae1U1YAFeTOX hh3XwUOYpx5zcQZscf0 Axe2fpqHYhBTGhHsuoZ VNkiGWjCZzmDBp1opGv ZGRmcjNcdHJwYWRkcjE 1XGNsYnJkcnRcYnJkcn NcYnJkcncxMFxicmRyY 2YxXGNsYnJkcmxcYnJk cnNcYnJkcncxMFxicmR lM0AqPDYlFpFdqsJaQu JkcnNcYnJkcncxMFxic jRsZ5YlHHOwJzJfjqGs YnJkcnNcYnJkcncxMFx pelFbM6QqUOWhkbOsvI OscJsrgFJ2h9vmBGGiC 6vgsJcDqDF3tBL5RLph QRqqsPX6MPwemFOyQYW 1FMEdCOVsJWChAOU6VG BcYnJkcmNmMVxjbGJyZ HJsXGJyZHJzXGJyZHJ3 MTBcYnJkcmNmMVxjbGJ yZHJyXGJyZHJzXGJyZH B9KDArTcOhmoElDKkek GJyZHJiXGJyZHJzXGJy COL0CRQqCkHsqdBjKAb lnAWaoyQgzEQlV6nhaZ RUmMH5jQSdN2x7O6mpd Gx5PGpkNQDvzTv5BXTk LXjzKRF0hm85cQimib7 yXRU5iLRvkIKmEZTwtf 86NLBbyhEziO88Pxyxg QDaG1OrGUDvkYkbuL06 Lfpkiy82IORcn9skIRQ ycmgzNDVcbGFzdHJvd1 y2rzSeHVNixLWryHEqV BWrbOD7MGPxlQXkEPTr K9e8ytBkZPRkJXTrL9y tqhRulGianvTnq7dxjr RydzEwXGJyZHJjZjFcY 2xwpiBuwQidfyRui8ji cmRydzEwXGJyZHJjZjF cU0hmhkIrisgfbgSfi4 xicmRydzEwXGJyZHJjZ yLfO0gypfRyYhmccxFa h3kxaiPhfsKgFJZfAXK pJvUiE9w4LGU3FAg5TS RsdYWkdBD3Z7zlwWcnN GgziGW8r4cnQSYsS1os oWaMpPN2jPv1NLlrP8Z cbLl4CGb6SKDswvGhtY 50YmxcaXRhcDJccXJcY rgiGvHbNdHutOh7zlig adDdzYPmmJx1QR7gunS yvLYcNiasv3hkROM4ET NmsbCldB75CvyrmQNlz AWfPqNvW0VhHOIdl2Tf K4I9HCBdCJwlh3ggFPF rSSyhl4GfWLgTNLTXQP 2VIT1pfUX2WNlHSJPHC 7vLnIY0UDP9pZI6pSB7 fXtcZmxkcnNsdCBcJzF nsY7NCCxvmLe8GHeoAy dxaBF0HKgaTkgscV0ig CBIWVBFUkxJTksgbmFt DW9KSSAVCB3OaTI4OME 7xVH2hXG5sJchPxnyky BcsQUnHlQajB8puCded E7kEsHfPUruXHJ0E5Eb lYzjia8aAOF3pHRnkOX vYKFbty3ygO58WjuciR AktZE3b7eeLF9eh5E0F USfAVWag6NdKTHzb6yz XHRycmgyNzBcdHJwYWR kZmwzXHRycGFkZGwxNV t8tvLqOQSjxdUchHGbZ MFhhpG2BCTtUyInwrNg YnJkcnNcYnJkcncxMFx raoUoV4BgJTSrUgLgja xcYnJkcnNcYnJkcncxM IrcxoScU4OhDJFrAhWq cnJcYnJkcnNcYnJkcnc hEDqvjeJqO2AuKSTsZm JkcmJcYnJkcnNcYnJkc remEFufslUvY5GbVYCz quCwjNGrmNdygZQ2g7i cSWDaR4ehhUaYmSA3dC O4VTelJ3EjfLaoBQtuD GNsYnJkcnRcYnJkcnNc PcOupsxaCWpxthBoQ9E xXGNsYnJkcmxcYnJkcn NcYnJkcncxMFxicmRyY 2YxXGNsYnJkcnJcYnJk cnNcYnJkcncxMFxicmR gU7ArNSFuRdPqwcDwFc JkcnNcYnJkcncxMFxic hOmG5NwCRAzenOjyCTx jGkyrGB8y4ggZIHvF0u ppIzPkHM1kLR4GGntE4 InvBq7YMAsQL2jz9Whg 9z9x6vql70wr6V0VZBl DITuuPUrtT2voLLrRJw pbnRibFxpdGFwMlxxcl ezOZNiAlYTDQJmQD58M DM7NHbqwI0uWtpsZII1 O4LefUwlap7cPUK5cDI ifPEaJXKjmi6muFJgLO xpbnRibFxpdGFwMlxiM FxjZjBccHJvdGVjdHtc OewjiFR3UXklWlzokB6 zdCBIWVBFUkxJTksgbm DcIP7MMRGLLtIIGC85W qMxFeH5AMj0DWl8a3pu iPNml2a4VWebEPV8kYy aRDXzPTF1XGdgnY3cv7 xmaWVsZHtcKlxmbGRpb sU6LPwIHLRDWKhSHwCs YH0oTIiAM8TYMdI2UhG rMpF8BWt8MOm0l1bmvI Gcn8p2VDuhBHS7vZpbl SQjewrxvlBhGB8ks5Ub GYwqa7qba59xc7O6UBN sZXNccGFyfVxpbnRibF vbuEKqDrv1OAjbytDby HRhYmxlcHJvcHNcdHJv d4QojSLrVCGpUypnMCZ iuJNlCQucUYc5hdItSD ExhmKpyUPbYPPkcoR9N GNsYnJkcnRcYnJkcnNc XaKrczstNLidrhHsW1Z xXGNsYnJkcmxcYnJkcn NcYnJkcncxMFxicmRyY 2YxXGNsYnJkcnJcYnJk cnNcYnJkcncxMFxicmR fA4HaZKHuSkCzdxQhOq JkcnNcYnJkcncxMFxic zJyX0BtNNBxwtKojIXs bMevdYE4z4vfNWGpN6r ykUlXpHS2kLL4JLygM2 VsbHgxODgzXGNsYnJkc nRcYnJkcnNcYnJkcncx JKiemyLwV0OxZCPdPiG kcmxcYnJkcnNcYnJkcn oeFZwpqoMbG4BkXZMiE nJkcnJcYnJkcnNcYnJk jfyaBLqboiUkI1ZzTYD sYnJkcmJcYnJkcnNcYn TewewkZWhymaMaB4WhM GNsdmVydGFsdFxjbGZ0 z4cyXIJsZ8vdxSzZlKV 5oOA9MLdqH9RjqEx5CW UjOA8eo1Jls5b4d6nhc 39eb4J9SYDbDYKidXHx aC6eaYApQMnkdnWytTz fbBLvQzayljeeETJ6T1 IgdDbzxk1uLAO3rETzw TIoMHDupi8axRXnWTdi bnRibFxpdGFwMiBTZWU hZ91nfWGuvAtoTXN2P7 EmeGzpxp5hCCP8vOPva OFsBYYkle9dgJ65Jxxb hFEveMA3t6ljDX6pa1W 3KSMzPBTwf0DlAZMyj9 hlXTVkoMJhVTQiY8o3b nBhZGRsMTVcdHJwYWRk ZnIzXHRycGFkZHIxNVx iyHFuMCM1JSWnKOPrMU WyBWY9YBJnFrMkvyBiT VxjbGJyZHJsXGJyZHJz QZHfFAP6VHDoEvUtqgZ mMVxjbGJyZHJyXGJyZH HgGCOwZTD8ENDqRmMea mNmMVxjbGJyZHJiXGJy OJZqCYCoGCN0GVUyQoF kcmNmMVxjbHZlcnRhbH DxQ7plbIPXpCH8uFVeQ 0f0W9swgVtyWUp2AJJm gZm2ZHf3T3alkZEoDVM 8LCIhWWPkEIWoFDM9XB BcYnJkcmNmMVxjbGJyZ HJsXGJyZHJzXGJyZHJ3 MTBcYnJkcmNmMVxjbGJ yZHJyXGJyZHJzXGJyZH S9TPUnBtOoceWwDYoxb GJyZHJiXGJyZHJzXGJy VST0IQOmSyYqirDaRXp hjZBphmKwdZGaR8jofX SMxYQ1hETrB7w3H5mbx Yu4UQT1QNPbjJq4NLZb DLmwAWJ0fk13sKfkjj4 yIKU1tRYhsPAhBBRsvz 08KRLumgHgbS66Xprbh XRhcDJccXJcYlxjZjIg H3HgaiX2FG5xx4YbKFw tu5rqj42mg1C9VZTjRR NccGFyfVxwYXJkXGlud KDmPEw1BXShBRJyIAZw OJqgla51WAZ0z3vmkET dLJuoAdfkpYHpkhL6DI pPDITEQYnNQfRfFF5lL IoWV9CGQIxXBujbIsSk EBjdXDgsRR70OXAsZYA dmHHqJAofG095SPdnPx yllXH2OCvlIkaupS5ob CBIWVBFUkxJTksgbmFt XQ2REZBTVT8HlUM6PWO 3iNS7bBM7hChwStcmyr MdgPDyJoFopA3slYetj C6rJjGuPRctTOL8Z9Vp mFssle6vDXP2bCXpnLE eBRKwwq2gdY68PznatF VstJA9v2zjJZ5np7H3I ZTmONEjl1GaMTWbe0hu BXTenTSeFYDaR5q3plT hZGRsMTVcdHJwYWRkZn IzXHRycGFkZHIxNVxjb CDnHMW6SAUhGOJsHSRr WUW0ZWSsPiOjyoOxQOn jbGJyZHJsXGJyZHJzXG TaQRV5RUZkKhZbjoInG VxjbGJyZHJyXGJyZHJz ABDpBKQ8FFKpEnZjssE mMVxjbGJyZHJiXGJyZH NzRDHaINN3DKKuYbWwy mNmMVxjbHZlcnRhbHRc R5jhwKZQdWE0zBLwF7h 1Z8swuAhuQNc2QAHvuY f5QGp9D0nysZFuRLF0Y SRcYZXdYUKlZGW4QVWh YnJkcmNmMVxjbGJyZHJ qFUMjWTSrOASmZDB7AK BcYnJkcmNmMVxjbGJyZ HJyXGJyZHJzXGJyZHJ3 MTBcYnJkcmNmMVxjbGJ yZHJiXGJyZHJzXGJyZH E8QOFwBsAbekQmFYhpv TQsdnPdeLUwS0xhkZZA lAM3mUGyS8y1D0bviSn 8ZRK7FHXmlOo9HEGtZY puWXP8by96lBvaxo7rG TA9lTKujENmYNFghy75 LOPcpoNczX28CpzsaQY lsZMzijGuoVZeiWo9YH 2qioKozQXzIiyqf0snF YC2EWYedgJbxL74Jnww vXOtlKRfH4YtBXQniQ9 hbkAthyJazHQbtWh8BJ 5adwIinXNjNpbgd7cwH BY7PYrqcAVtXMn4YJOk h4ggHgbyTTK5xJUmsCJ atb1ju0e3nd79HMo1ln BhZGRmbDNcdHJwYWRkb QD4OGKtoWVpTBOmI5u1 lmRlFIKpGANnS6wcveD cnXjleiYjw0frxgSjet QmGVPiPOZoIdQsX9jhj tZozVboqkMkx3ffuoLi giGcJZHoNMGxWwLtZ1x nraEozpiegxPvs4eqqr RydzEwXGJyZHJjZjFcY 3bkksNqUtdxruKmc8vb cmRydzEwXGJyZHJjZjF lI3i6OTQ6QPa9MULfYn ReA4busLjqRLMzs5djX EQtKBe8ISafBKqzjLD1 IUQdA0meewQarPnoevH ck1ryemAaqwGaXVMuQS OzFpKkS6yyurPypChvt xSjs6svhtEomuKwAXFp JDLhPiSbW0ldtzXuoav qayVxx6bfyeOapmCwEV JqAZEkAgQjR7svybHhW kyhsoIdc6amuoKgvuMz VUUbKYRvOaWfU2q6DOF 1BQx7XHCyDeTyP3onpW yeABNlv6stKDQqQpQ7G 6qgFRgwkTv4JbZezzQp tOPpd961FN4jyhDmvNB fWduql1ziJMH9uTsjSA MdIQjujUQqEQf2EEAcU AGiVDEvS0EaTQZVE6bx RXZhbHVhdGlvbjpcbmV hrPSxoIe3XU6ptcEacM ScTywnq5uxOIJ9XDMoo mZswF75ZjjgdOTroCJo OaEzC2YoYTKug1KxS8U 1GTUuRMuue5iaDADtBO mtm9OyTPsHXLMRCK3DS R9wpZS6MEbCQMQZA9pG pWS0UZE0cRZuzFIooBl cZmxkcnNsdCBcJzFjfX 8JArtgLjxPBRD9qGcwQ C6nnYNeADKaoiHrfZB8 WEA8BBMaOUwcm0wgXVW pXZevr6TnQTpUPQHROK 6EVP3rlTU5QHtKTIXKN SneFmBoDTfcEAxnPT51 ODJgSIBwjEDoOYloN83 9XHBsYWluXGZzMjBcbm IfrWPpiAz4VL1ulcKou XIcSvqfu8vaRZO4CRdp eTFtMOt3AZGfs4mtAxh nTSD5mQPxeETzvs8vc8 g3ob37VOf3qgUjQiS2X Wgsa8Tce6gfiLJlBWIq ZmwzXHRycGFkZGwxNVx 0cnBhZGRmcjNcdHJwYW GhixG9WGQtAkIljfMkU nJkcnNcYnJkcncxMFxi shRkX2OkCWJhSpDlmla cYnJkcnNcYnJkcncxMF jwowDbZ3WgOVXkPsOim nJcYnJkcnNcYnJkcncx PKbdeiNkO3LiRFYiBiI kcmJcYnJkcnNcYnJkcn sgRVsqtiTvQ8HxZFAad aFkrDImuYbgdQG4h6qd GRUcU8khdGtBaFQ5kMO 7XRpbN2LlfMiyLFbqTO NsYnJkcnRcYnJkcnNcY hYdovhcXRfkgzVvM5Tm XGNsYnJkcmxcYnJkcnN cYnJkcncxMFxicmRyY2 YxXGNsYnJkcnJcYnJkc nNcYnJkcncxMFxicmRy H4LbNARpToSenvJqYiV kcnNcYnJkcncxMFxicm QhQ5SxMYEmluCxkVPah RemsNN4t9nmNWPgD8ta mYuYxGT2xKZ2YLqfO4P tzXv8SXJlJR6tu8Usr9 z2k6ncj35gj6I8KRGsQ WFscPMkhT2rxDOqRZwe bnRibFxjZWxsXGludGJ qRMDan6fqEUFeTBJ4JX C4MMwtYPLqsvKGFV32P ycpMVVdhoy1ds38MJr3 cnJoMjEwXHRycGFkZGZ gA2d6wcGyJVNlGNBsaJ JwYWRkZnIzXHRycGFkZ CSzKAfmdEReSRZ4LJCg UOIcCQVfIHN0GZGaMxU kcmNmMVxjbGJyZHJsXG XiWZAlXVGyOOX5UKWuC nJkcmNmMVxjbGJyZHJy OGIvCQNxUMTwGCC5KRX cYnJkcmNmMVxjbGJyZH UkCNRgHHSxIZUrATU5R TBcYnJkcmNmMVxjbHZl fiHqeFVfI8wpiAIYdJR 2jCDqJ2e3Z1dbfTleXP vrWFYieIx2QDa3DVhvj AOoHQZ2VDWyVUEdMKEr NBU7TIMhVuQrajVxCCl jbGJyZHJsXGJyZHJzXG KcNHD4CATpQcAhocGxJ VxjbGJyZHJyXGJyZHJz CCBpQNI7XZLqBbUqcuF mMVxjbGJyZHJiXGJyZH RcMNXdCCX7PEKfCfUcf mNmMVxjbHZlcnRhbHRc X7zlmRTDdQU4lJIsW0w 3O2ibgYj1HSqiHEIcaT r6HPI3PEobCFMsQJoki SSnAXAbRZOaVIvhRB16 nDDzPAlcJ7jopaT8WBc kTUqePZAaknXrnR35Ne wgTUlCMSAoREFLTylcY 0IvpRsstcBrwMshy7mv gBMxa6UyqHVxnNXpIIj 0cnBhZGRmbDNcdHJwYW MuoPV7XZZieGErSBMoE 9d8qyTxACAqCIXqB5pg ulDaeIuctjPlq6cukbA ydzEwXGJyZHJjZjFcY2 rhmlWljKiqpeQke3wdw mRydzEwXGJyZHJjZjFc O2dborHyrbakifSen0a icmRydzEwXGJyZHJjZj AoN9halwOjTrrfjpVmo 1xicmRydzEwXGJyZHJj LgEsZ0w5FSG9GSg2CXR gAdPoF3umnTfvWQOex8 cfILWuYJa3RUwjOAeao BJ4AQKgJ2uiqkCahYsz kqJbu2yszeIcmpKyRPC wTOCtYwUgB5zpisIuxE nanfWsu7lsbzZnseCyJ VEpZTGtAbCcZ9rjkmOu gcpcceYio8gpwyEfdgP dUGFkQPVaLcSoD6jksq QjYdmpdhLvt0rjshWhd fXfEZJvOLLkBqBqI8v7 LYT3ROu8DDAqFbFcQ9x myKixYXGxx3dlZZKwEo S5DHwrATjbnAu6LyPbv GFyZFxpbnRibFxxclxp MFxjZWxsXHBhcmRcaW5 7XzkpsAWDc7zrGA4dlC IiprBaYTW5UGasCNONc 1XpfdF2TEPGh0UjyBg1 HC2lYNktLkJdLWVQrOx cHNWym1z0zLXkXJ9jUp C7FJgpOBhsYSjsrSJsE JYqm5x0sr98UFj8amPz Viv3KPNjrHMfBJKnT5w 0cnBhZGRsMTVcdHJwYW RkZnIzXHRycGFkZHIxN WnoiUTfFLM7ESQnTLIk JISmPRA8XOBaSmOydjT mMVxjbGJyZHJsXGJyZH CnMMWuNVJ8NOCyPxTxq mNmMVxjbGJyZHJyXGJy JFVvCRAkZTW4LZAeIqF kcmNmMVxjbGJyZHJiXG RtWTPhOOHnNOO6GXZoE nJkcmNmMVxjbHZlcnRh dGYcL0ekpSFDsHC4wXO iT9r7T0hmoWwiSXxnQL GbdAu0VXv4NZcrkJQcP SC3KOUrYKWyLPLfDTW5 MTBcYnJkcmNmMVxjbGJ yZHJsXGJyZHJzXGJyZH C7YEEbNvCozfYdEDakf GJyZHJyXGJyZHJzXGJy NOU9ILOxJvAqxlSmMTz jbGJyZHJiXGJyZHJzXG VsOHL6VQLfIeFkekRwA LyqnWWtmsUbnIXxY5fx hKVDuOX3iLHkT4u5T4q xzMe4INfgJJKbpMx7TV O1WCqpJUWaXYhhaWSgB HFyXGJcaTAgUmVzdWx0 iazlL3BikRieFRUlXPa lxMBsMFPdCTJtg7VpQ0 F6DPPfKYoyk8vcJJUxT Sxdt7MlJGrDZBFPPD4E HX4fjGS5FUdZGPMBN6s LyJS3VEA5xZGlrSPsjL tcZmxkcnNsdCBcJzFjf V2Qi2pnERdiSlGjt5vy aWVsZHtcKlxmbGRpbnN 0IEhZUEVSTElOSyBuYW 9wVJeVS6LSJjG9NfCpI KR1CfN6GqM2z9xuzIJu c6y0EDqiUQE6fJmkkDU pblxmczIwXGNlbGxcaW 89Fwunom89WDYob3rkG HRycmgyNzBcdHJwYWRk ZmwzXHRycGFkZGwxNVx 0cnBhZGRmcjNcdHJwYW XexwW7TGQqEhMnhuSuE nJkcnNcYnJkcncxMFxi ffZzA4TjKSDgQcBzwvv cYnJkcnNcYnJkcncxMF bdqjPiT8NcBZBdFzQnv nJcYnJkcnNcYnJkcncx KFlgnvYyF0IbTPUnRpI kcmJcYnJkcnNcYnJkcn fyENobetRrP3XqGHFeo oTsvVLnlQyctSC0l1wd VHQrL8mrrXxImZK1bKX 6ZPByQ6NjdGpbDGdpUO NsYnJkcnRcYnJkcnNcY aNprxtrHIyoxkGsT7Ck XGNsYnJkcmxcYnJkcnN cYnJkcncxMFxicmRyY2 YxXGNsYnJkcnJcYnJkc nNcYnJkcncxMFxicmRy L0RePNViTfFwsmJgHoW kcnNcYnJkcncxMFxicm IgN0PhPQKngaOwdVQej AikrFP9w0kyHKWuU9ei sFqVtGD3wSM5ImYiH9H mpIc8TZYxOXBblnVgxP 50YmxccXJcYiBQZXJjZ F09NWH6DOjwuP8aLztt URjiCDUnznVetA33Dyy cYjAgMTUgJVxjZWxsXG udfXXpZWCty9v6nq98B SjrRRH0ti60XKGdtJVf CAChS6h4yiPiIFGhDXO cdHJwYWRkZnIzXHRycG UcFDPqSNiszMMvGSE5F RIbIMMkXTNrQCK1LULt YnJkcmNmMVxjbGJyZHJ eFBZwHSBaFCWzSCD9LH BcYnJkcmNmMVxjbGJyZ HJyXGJyZHJzXGJyZHJ3 MTBcYnJkcmNmMVxjbGJ yZHJiXGJyZHJzXGJyZH F7RIInLoUkbzAwJFeoz PKqwfAbiCXdE5aseRFC tZW4nVSpD4b8A5gioHm dPQdhWCLomAp9WMs9KG fkePCeNBA1MCPkRHDbG HThDJC4UFAlAlQbhfJu MVxjbGJyZHJsXGJyZHJ aFNIkUTN8HNBqDuWvuu NmMVxjbGJyZHJyXGJyZ ZSdNQLzWCH4KZRcSuNz NmMVxjbGJyZHJiXGJ qDAJpEZQvTEJ9XATlZh JkcmNmMVxjbHZlcnRhb NHlJ8eqbTSWaEQ1hZSz I9m1D7dhjMv1PBpwCEY ugBd3OBW1XZbaPQMpAF kuqVAkFTCmKJUyB6Vaw FxwYXJkXGludGJsIFNl KPHii34bSD57HWPcgVg bbI73Ayzqmk95YZVajj JeiRv3CxOqYSFxqDKaP HJrgcHyxAs0RjZiFHWo BVApolaeTKXvJvRLw15 aAM98SqKepUKuZTWvUW NmMCBTdGFpbmluZyBvZ iByZWNlcHRvcnMgaXMg nXVhwzWeR3FxDFTgMRE ej8AqXUTuJJQcyqSgr5 k5SEBvdJVzb3JtyGbyk GFyeSBhbmQgdHVidWxh gnDcAKR8MHJlie6zRUQ cEJKnZVVcWB18PEtqWR R2VON0JFqtuQ9lLMdtl lTmGQOdjS1bnOtxUYyd xuHeeGKbEI6mM3XhdDC fqPjhMFE6YNEazIJtez 2jOS4aZLWyIAxaTARbD NIqgfIqn3f2MNJ8hJJ6 uANxBWOipKNexc3cSUT aifeuMHHrAcVOj488wy 90ZTpccGFyXGIwXGkgQ cJyCDJ5IMZwDYIwpNLs koO3q0CkFKHukcYeXFA inw5apmtjTgExxw2vyx 6raNuqHH2ahYXnENjpu Bi7WELjYRToNZKkEPZj TYBasBelEZWpdjLcx4L eYPcjctUxz1MdNOXgkF Hsc6JhCvOtm3YnnoOel rTlR7LzMNHzwTt6WCeb b6DvoQxunkA6FLHcj1U gizydEsG1BFScuk6qdC izIMDcyTJ8yJ7vVON4U 1EkRFQrBZcoqJ00kbBv t44yzY7puVEryVJlJC2 kIHdlZWtlbmRzLiBccG JdLHAdccHJMnI8fAVoj 2NiP7xgAY8sdHPvLJCm MO4wUme0HWMlWu4lENv fzyoykwQ2xWRzSPolLL lflGRaQFBrWX1lL2H8l XZlIEhlciAyIGltbXVu p8rss3WtC5zpfPcxTKn kDDtPNmcicdQsqVc1MA 9opZE0sLVglfK9xOBqi Fh5TAXcuQIxa9SijSRw RQBbqLIiRT7xF7S6iAE bZHIrhVCng4UaiIGgtU XjjJJvVVnsaeQfd4qnw 02fuSnslUImnEDprW4g glVrM3XbUOJbRLBzcAL oSXXwpjRuieSgm03rER XvLIGdk3Cze1Msg6r6z V44uTAmSjMoJ1Eihuzq RAnAYIW1VIqoqE9zDBY zu3DgiXRfUVUuXSXbRv 9iWEdwKIKxKUaxpNu8E UUxadSziNa6MGIza6Ss IEGoWEE5VQNeFgouMAW ieSBhZGRpdGlvbmFsIH Rao3CrRA2cJYYjwHAew pN2xJWhQSMqqCTgBYTz aAYyLGNyhh6eskdphYU kORUhSvSkIA3rHZIMzw WsupCxvDVyhB8bIEYnk G1iTZ3lsW1xkXbloW2a bLKzMrBIm9lqYW4juRC vAYT6AsDsBqmaPfsbMR Y3Dx1ywCBaJYZfrlYAD qM3sTWhv7EvQ7ahSH4r u1MsCE9heXBbotf5eQC elAklqDDqD4Rlr6PlUG A1IW9GFRRrHDWqz65rQ AHppfOyJR5sxAi6dQLf wZXkzOgsqIcopeD8dB2 tksHxKZhsEkQiVq52cq QwgO3uuNwfQRYjW39me EZxwOurXdCtSVIuf6hr S4wjteNfr1W1SlQEnKP mFEGlo0QcoWRjhKL5FP Teb5RmCeFynnX0FRmpM MS3YTOzn06xPMNuRRzl uDMgILLqvYimn8Vhdd2 gIFxwYXJccGFyIFJlc3 GpfILly2qfmPbsGSCnM GludGVycHJldGVkIHdp aFkcG4P5zCzrnpKwtQZ cttD8nTMozNlnNAkawE 9vZCBvZiBmYWxzZSBuZ BhjdSw8iHG6CT7oZWBi B6NfG4pitZBnVWDeMNE wuOPvuq6rMAPpexeyEX PeYUR5JtMpOGT7IFR9K Hl9mGYpCkQwaPjmRNqb RVU6JxLhMIs4fPYaMqU jgFp4DCEoNVJ0VYj0FM n9fSG8GUEtoDe6IsRzU PJ5RnoiWIk7gLu1UQTs nEh1GgEpUAU4SUBhBTE ccGFyXHBhcmRcaTAgIF xwYXJcdiBTTUFSVExJU 1RfTUVUQURBVEFfQkVH MI6xQlHzYRG9UI4rUtU 6THSazMN2ZH4pBhNpQ0 zoPBYmIbLkMGO1JZ8gK pP9CUV0nSF9OZ2mNiMh KAv9SALpExNsIaX1Yv4 bQfx3WgX8GJP1dWc6JM 9eLjGkNyzfLR6tZxN8G DEwfDExPTBfMjYwMTF8 ISR8XT4mYaNdWNqvHe4 rHtdoQL6pFfNkFkdjXB 5qOsL7GTIzqVI9FDYcS aArBSv0ISn5KY2bWpGm VRflRB7aBsD9FVL2pGN 1UQPxGrAuFQv3FtK1QZ 9rGtIsMRlvIV9uXZWTB YKAWObCNS2JENJEZVAU IU3SOqYtS6hJZDWJOzA fTUVUQURBVEFfQkVHSU 9kOAh4KHlbdEJ7FOj6H RsCLEBAYDDNM31EBMKC DPQJQ5AOCDOBZAKXFFv HXHZYQw8EJWBVRITZBP 9CRUdJTiAxXHtCUkVBU 6TJCRJOFZpLQwZtV5Bn B2hjPL3tSJdcPJUSkNE 8InM4RIDkJN9cTMpNSp RWE7OFHIQQEHnYJzDYj PXlam8geSTnHOsyeMB3 ClTbZHBytDNrj4QANRP TVFBBVEgtSUhDIFNpdG HrTIafzKO2PoWtCWHsr WNmm1TRMXYLPIRZJTcw VDiKVIqhNZDeNDyow9S 2DgHhTNBtiLGju6ACRA FTVFBBVEgtSUhDIEVSI ZFfTKTrs14fFKtfw9I7 ZdDkPJKjaDMgp5HMXAC TVFBBVEgtSUhDIEVSIF Ipv5NuvUPJoVF1XaX4N ZG6SC84MTdPPpMWD1ES QVRILUlIQyBQZXJjZW5 2PGD3RBlccK8iNAmJoC Ifg96tzIu3NvUkYhGhk Focj7UVJDPUNKRIXYph SUhDIEFwcHJvcHJpYXR fTGEvhcCdo5vtJEpTxL Wfd92agZu5TtNjCaXax WVrJOiJZgPRJ7JWXHTS LUlIQyBFUiBTdGFpbiB JbnRlbnNpdHkgTGlzdC K8UvEfPGGnqBPuWDbAB iEFE3FPTDOAFRcZCuNZ LiFQTnRNqI5hOAXTsEM 2LrR9JVAnKS8hPor2Dv TZODMVVSJHDG8DQHNfU MUoReSvaFc9LBbis2Pd WrV6ETSlZA9lD8e6LyI DLKOKPOEBWJ2FPHRkKK EgI2DvjXGIoLKzxxjgG uSeH0P3jT0dTFtnYwA7 MBM1AT1kNQa8NpJJDIP LJXKIXI5HPUGkNLIqdn 5pdxsuaUIiR87jdXHqs DOpSL4jpHhtkrFuMAqc LwFwPse0PXZbd9YMXOW TVFBBVEgtSUhDIEdlbi ZInQDxbpGAjnNmt2i1k VGHvSE5FTIjTwM5ONCt RK6bN9e9HfTXMDHZDEX VWG1LQIQvIWLcQoOUHC V6eGBcOXgniYtvQmUoO 5y8PSarj6CJOELEJXHF VEgtSUhDIFBlcmNlbnQ gU6XygP0zjprxXC4vwT tyeqFdFTjcBaLnAUa2W Sfjd4WWYIZIIKKQZMap NOyOFTgjwqDfF8AfgrO dSOtkxYfeJeCnZBw5Zu Idx4NBNJZRZRRFXFmtA UhDIEhlcjIgRklTSCBM iSM4MoM6IXF7TJ3uOQi 8YoSRSCVFYSIJAI5UUG EjK6xrNypvBoNrgMw6L Hypj7J5JoBaJTCdzMSN WCEIYXfSZVPUTb2AVOK FBNJDDG7OJsZxF1KBUJ 2RDi8EMSXAGDWYSU5MK RpKWtAgI6AOSP7AMc5X NOGLTALVSA7BHeStHKA MB8FKTbEHA6ymGFOIPZ IKCEQyAlBQNJ6pTGUFO K0RUOZDRFRHF23AXLKR RHYVQ4DWVV5= Gross Description (test f6zlvONsDWXszFRLBUp code = [id number]) wMFxhbnNpXHNwbHRwZ3 OquzhpHTxfOV4xIM8oo TmrvIXlsNAtNC3XIYAx ZmYxXHBhcGVydzEyMjQ eIKAbiQSxlXL9MRPdOR 1hcmdsMTgwMFxtYXJnc eA4AHFyaFTeA2ClDWNd RC9zbxcfIUI3BPbpuK8 gegSHPkydLn8dlHIsoC tcZjFcZmNoYXJzZXQwX XVhnBrbXXSvEBv0nW5C ZfhqI14qe0O4Aui2ANC vHDDbL2HbXH0gRPQquX GwD47XLdtaWYF2RQHUT gsfOMDqDP0Dz4uiSRVg tEJiFUD4LGlzvGIzTXQ cPUQxJXb7WKFrKEqkiQ LsWG4ooKsmSagldZmzi 2VjdCBcXGlkIDUxMDAy IGfzYEUfML5JUiIwCKZ xTorfSEpvOIq6QXo1VI 9WUyAiICAgNTAzNzEzM YBkGXg9ZQzuUV8PDYl4 BcL9NUXtGdK7RPD4CzJ cXHQgMiBcXGYgQXJpYW wgXFxmcyAxMCBcXGZiI YbhXsvoRDjuN37flIfj xJ4fIdmvkzNcFCX6ZVJ hciANClxwbGFpblxlcG ljTmVzdERvYzEgDQpcb HRycGFyXGxpbjBccmlu MCANClxsdHJjaFxiXGN mMVxmczIwIEJyZWFzdC xtruypdOSwQICaI7y6I GJyZWFzdCAxMDowMDpc CcZiU6HdIDY6IQaytQm que70rPg3AMHyqJXdq1 SsfKU3TUMre8X4ZWDbp 1VdmeEmOO1gpU3aCCAs x89qRXPqAJSmLKIyL75 amW6jiWXdL6YeVXFoJL EsOmQiO74klI6mMYads MJ7GQTcGLHvrEylVId0 OFV1Fw2ceDUyVGXrgzQ NKA1BFcZzCnSxd7Djty UfERHcZB3aSCysqy12N SR8c4jckYNhAOkzYugj bPImcqV5SGaHPWALPKl QXxLbEX7kNKaWZcrYKA dJTnwyMTAxNnwxfFVTR IL2MStokUubsBs4e4zc jTMqn7v5GEnuWMD7vRO Nj4gmzAHuGXtfRvjlpQ IkwmK4NHtAGJYRVMfFO eBvHC9xTBvKYtaGJsE5 QbHjAVY1LFwBZ0XRpYT 9Kbw8FJn7iOozHikjfx EltFUtXaVGwE0mgPddb Q2giOFsO7nmLdXxUBCM ClxlcGljTmVzdERvYzB xxxH7ETCyxANfANA2ZM 5kXHBhclxwYXJkXHNsL DX4FNyacV24jYVuISLu MTZccGFyfVxwbGFpbiA WVganJluydFzxd3KtiY BcXGlkIDUxMDAyIFxcZ QFhGQ1OXlXqPEUmRlwx ERevFPg0EUy1TH4NXcR iICAgNTAzNzEzOSIgOT e6FMywYI7FBAw6ChLzS MW9IFL1AMU2CfNfIINz MiBcXGYgQXJpYWwgXFx mcyAxMCBcXGZiIFxcZm mrSXciX16ppDezfA2rD suormIsMKO9WSHksuTE ClxwbGFpblxlcGljTmV zdERvYzEgDQpcbHRycG FyXGxpbjBccmluMCANC lxsdHJjaFxiXGNmMVxm czIwIEJyZWFzdCwgcml lcPHiBMVjD3y8PZFgVB HorYLoPOgkCRH9LJQgE OYsUXOlXtX8WXixe5df z9blrHXkUuczio5rOGA 4yBL6tOWsrWWjT52eOM VzqwZmY9kmTcIzyu1tC DAuOGNtIHRvIDEuMiBj iLYrifFvEM0wdFzmAI7 kIDAuMiBjbSBpbiBkaW LiAGHlgdssOJ25hYWeo Dbvs3ShpXk6dZCoOGys IEIxICgyIGNvcmVzKSB rhwEqIoDfUOOnK35wVP kuICBccHJvdGVjdHtcZ zydtHX5MDqpBgzfgY7o dCBIWVBFUkxJTksgbmF cQF0KSB6XXvXBQA79Nv ToGTG0AEvIT2XXdZD4A pl5OOf5rAicFoxsqqLw zRGnVpVReE8XUZnlWly wgHA1GRcoCeystA1awE BIWVBFUkxJTksgbmFtZ F9VLD0VAU2JmYZiQZJ3 eGL0ZJLGOmivbWK4tDU 9oT89NTAtBLQexGGtXH emE892NDDhWIuaQKc3i mNoXGZzMjAgDQpcZXBp S33st1EQk2XaUHYqn0t xcGzgs7GafYXcZOjjND LbeLNzAMhxpU6yXuMbi 5bpbPh5SEslkaG4ULFt hn1ntHuvoA8lMYo2VXe eBPOhV0XuL4LmZEmmMC C2JVYjTmJxOVAvDIWIZ uXdBjCAXsV2JCR0KfO8 BUn4MHXOTlBpSiItWCN jBelnNQEsCEt4DKj3TD aKFaL1XBI0BgRdLoPtZ VIjNQUtBFi6EKEiFCiw IEFyaWFsIFxcZnMgMTA gXFxmYiBcXGZsIFxcbm T9DBUxNQcrPDKfOiQfS CBDOlxwYXIgDQpccGxh aQ3vYUZjB58fo4MKg5S dYL0HHEl6zxRonwpjgZ 4wXHJpbjAgDQpcbHRyY 2hcYlxjZjFcZnMyMCBM eF2rrAYtv7EiGBPdVSW yaWdodCwgYXhpbGxhcn deuAX8QMkgdGflYzboC RmkKsYpGCOauJKmkO35 HBSyeiVexADur3BsgGL 2CMDbe4J7NBGvw7Mdea vhCG41NBWuLIRqJWHpI kDjF59gcZ3mlNTkH2Su TITsWLNhVaO8OUXiMCc aHUJiQY7xbKIrSBLhyq EkdnNczTQtbRZudBK7F UGetE9dFqDcFPWqoSEy hQLvgEgaFdcpjIJ7NJm yNrsreO2grJOEPWCMSh nCCxzjrvIwVG3FSV0LC rLBRS25OjTkWYQ0UZzM T8VAjZV9Xjw3ISt3rLx cZmxkcnNsdCBcJzFDfX 7SEDvoBeljgVM0VTjyU rgodX3etCPEDSFYRgrK OevswrItDE3ANO8YPL7 FvRAvIEW1xXA6ERVBQi znsJT4cLD0xX06XPRnW KOlqPDvHYudA317LCTk KRxhZZm5zjZfWWCfFtC eDGphDPCzT02yp5OXy9 UjZWAst3nmdVjwq7Biz GVuZFxwYXJccGFyZFxz dW0zYbPxh3uyaZn8VOa qdnZ2CQAkrl8jaVxjfE 7jJAk7SAecFKQkK7ToR 9IdDQnlOEJ6MBUtHtLz XGRiICBPVlIgIiBDMzY 3ZYM4ApR6MDu5LJTAZw MgIiAgIDUwMzcxNTgiI Me0IWc7EPaNBmJ5DYK5 Hxy1GuzrWBEqFKVmMQl 0IDIgXFxmIEFyaWFsIF xcZnMgMTAgXFxmYiBcX CNxCSfvmxR8WNPvZLsh XGJcZnMyMCBEOlxwYXI mGOocdSoszY9pBFQpC8 2ij3GIs9JrEZ5JVCv4h bOxocikqB7iLMYqvvBs IJwsgGVwK4ylZjhpQhQ xBbZwBNUDbsMur8NmOR xlZnQsIGxlZnQgYnJlY XX5NQM8TMC8OHBgJPBv PUNjJvD9iCm4GF03CVv eq6bdBnoirw3bMHG6dW D8nQTrrFAaL74hXKOlo sKvF2ltJdVapr3pGUOy M7LhAESaMSFqFGWjjFR cqpCoLR9phKexZS3kRE AuMiBjbSBpbiBkaWFtZ YAxesrmIR81kRJasHgt a3KdrLg2yGYsYSgaANQ xICgyIGNvcmVzKSBhbm PpXZSoXOZhJ36xYRcyJ CBccHJvdGVjdHtcZmll sBK1HDpmYjqmdA2mmBU IWVBFUkxJTksgbmFtZT 4CLZ5PGyDXOA99AtClC FL9FRpVP7VBeST8Hhd7 KLk2uFbmDxbbcwEjmSY vAeWAxF8HDYarCenkyG I8ICohSaylcF9vkASBU NVWSpxYOisexaKsUB6K UI5CLL4WvEAfWZC7zVI 2UXJIOpmahWN2dWX1eE 17XGZsZHJzbHQgXCcxQ 357CACjYJpkDTv6zoUk CQPmGhHkNAkzQTPnH34 bv3OCs1QtOYRme7hksG btg9KqkLBoDResOVTwn WJhZPaflN3hFmDhz0ne sXz1VUkixtW9GJSzor3 mnLzxsZ7rGCatv0liKL P8RDSdpOMnuFDxTRcwy BltsP5xGoYoRav3JOdl NNCxI8AvH8MeluD4XJX sYWluXGZzMTYgDQp9 Disclaimer (test code = y8bxdUQgIWAknCFjMtE [id number]) sQWQhZNXdl9oqHDXyeB FuZzEwMzNcZnRuYmpcd ZDcJRVbBoGen9wjw919 bKWlg6vcIIDeGhG2nPL jMFNacYKrV681XCRgXK sgu2nwd8NcYKDftZCgq 6K3LPJRgmmonZt0wFqy W44uu5V3MmcnN4osVYD hUABmW5FbHP0zIGUwYa i3MMG0SGQ9ILDsHTSjV 9DlFG1mWSQayGGbCAv8 n9vgjTtbOJZxSFD2u8c dIAbgbpNiYT2yud7uuG e3g3zqvxIhBSRmPDGaj CPGYQXrH6MwpSluXn9p kYd4fTyaSumhDAZ9Csu 7HC1loa54ixj5mRyoSV LjogdiJaR7EUgzKCYlc ypfBQn5MQqoVSAqoPJ0 CLWmmJKaX8KbNINsYW0 aduk0EFU5GXmiTBIxPb U9WUXouFXbVZZquOdfK Lqex097WTG7ImCzDR5h Y7Urn4Y1jH5luOUuIYF fcARnVsMeTSYzsm7jeM BzICnyc1DeAZS8ovJ1e FRpuHWsZFEkKO31Gslu m1LeAzjnHQX0PWDfkeB js6Shp1fwBoXigaWrF0 lgC9XuMWUzJCJxRSGhI fEogjPqb2Sin1AmuGXx lDc8z8feVLJeBFJjtCy as7sqKDA9GYXjI0U0oG Fhs7nbQKpaAQEgpYP7g xM9PBVsvVNyU0TitA7o DTOwGM5qzgr4u4msKCO 4XNhyQZSyBkA2vqS0WT BcaGVhZGVyeTcyMFxmb 972MPS9KrCsRRAyi8Jt M1PbmEstL35yqZzmY42 cPYXaaLkwuA7zzNtjrL 5cZjBcZnMyNFxxbFxwb WIvsjpjRLvidbO2WPbf hohtJXSwPZiqS6arHnW hITNisNhgKTkmo2OvXV SpYEXlEhozjtF6XTWVk 30jUJCyn8EsIRZbjN8v iPDuGIptekKqqUV0YEa hdmUgYmVlbiBkZXZlbG 8hPKZaPO4vMDMhczLey i2axeAdZMKyLDQeA2Wf cmlzdGljcyBkZXRlcm1 jfvRyOTR5UKOFOI7UWH OvIJNqn37vEUPbgRndo K1wbBTdwsRxEVZyr4Pk iS4ddWFLBXQjO0tdBM9 aWNmyq2YozWYrgHXjsE M0HMXrk1XbFpPuhtVih NHjzKEoN1OxoBgbN0zp TJPfJEMmchDrfBNbq4B wGHOzpFE2wWDqKM2TPm KHn53iEIYdRPVNdeGtW RFfcWiliJU1cxF3qH5s LiBJZiBhcHBsaWNhYmx qCDLqg239sk0vedC9LP XzSPKaymbnr0RmKDOtC XHhbM44EQBeAMEhgv7v dwaaePYgxpLlC0Boyue 6yG4zFPGsKSuzNBYuXM ZzMjJcbGFuZzEwMzNca GljaFxmMVxkYmNoXGYx RGbbO3vlKvWhPrQaMqx wYXJ9 [facility] B[facility] with [id number] 23:43:47 Test Item Value Reference Range Interpretation Comments Radiology Study observation (narrative) (test code = 50550-8) IMP (test code = IMP) 1: Mass [...] Evaluation Lab Interpretation Abnormal (test code = 91573-5) [facility] Bilateral with [id number] 23:43:47 Test Item Value Reference Range Interpretation Comments Radiology Study observation (narrative) (test code = 35540-1) IMP (test code = IMP) 1: Mass [...] Evaluation Lab Interpretation Abnormal (test code = 55444-6) [facility] Breast [facility] B[facility] 2021-11-20 23:39:46 Test Item Value Reference Range Interpretation Comments Radiology Study observation (narrative) (test code = 18299-5) IMP (test code = IMP) 1: Mass [...] may be considered if it would change release manager. 4: Lymph nodes in the right axilla [...] biopsy may be considered if itwould change release manager. 7: Lymph nodes in the left axilla are suspicious. Ultrasound guided biopsy isrecommended. BI-RADS Category 4C:Suspicious Abnormality PXN (test code = PXN) Nupur Rosario, DO - 11/20/2021 CLINICAL INDICATION:Patient is a 81 year old female and is seen for abnormal mammogram FILMS COMPAREDThe present examination has been compared to a prior imaging study performed [facility] on 11/20/2021. Images were obtained [...] may be considered if it would change release manager. 4: Lymph nodes in the right axilla [...] biopsy may be considered if itwould change release manager. 7: Lymph nodes in the left axilla are suspicious. Ultrasound guided biopsy isrecommended. BI-RADS Category 4C:Suspicious Abnormality Lab Interpretation Abnormal (test code = 27636-7) [facility] [id number] 23:39:46 Test Item Value Reference Range Interpretation Comments Radiology Study observation (narrative) (test code = 98370-2) IMP (test code = IMP) 1: Mass [...] may be considered if it would change release manager. 4: Lymph nodes in the right axilla [...] biopsy may be considered if itwould change release manager. 7: Lymph nodes in the left axilla are suspicious. Ultrasound guided biopsy isrecommended. BI-RADS Category 4C:Suspicious Abnormality PXN (test code = PXN) Nupur Rosario DO - 11/20/2021 CLINICAL INDICATION:Patient is a 81 year old female and is seen for abnormal mammogram FILMS COMPAREDThe present examination has been compared to a prior imaging study performed [facility] on 11/20/2021. Images were obtained [...] may be considered if it would change release manager. 4: Lymph nodes in the right axilla [...] biopsy may be considered if itwould change release manager. 7: Lymph nodes in the left axilla are suspicious. Ultrasound guided biopsy isrecommended. BI-RADS Category 4C:Suspicious Abnormality Lab Interpretation Abnormal (test code = 10299-0) [facility] Bilateral 2021-11-20 23:39:46 Test Item Value Reference Range Interpretation Comments Radiology Study observation (narrative) (test code = 21334-4) IMP (test code = IMP) 1: Mass [...] may be considered if it would change release manager. 4: Lymph nodes in the right axilla [...] biopsy may be considered if itwould change release manager. 7: Lymph nodes in the left axilla are suspicious. Ultrasound guided biopsy isrecommended. BI-RADS Category 4C:Suspicious Abnormality PXN (test code = PXN) Nupur Rosario, DO - 11/20/2021 CLINICAL INDICATION:Patient is a 81 year old female and is seen for abnormal mammogram FILMS COMPAREDThe present examination has been compared to a prior imaging study performed [facility] on 11/20/2021. Images were obtained [...] may be considered if it would change release manager. 4: Lymph nodes in the right axilla [...] biopsy may be considered if itwould change release manager. 7: Lymph nodes in the left axilla are suspicious. Ultrasound guided biopsy isrecommended. BI-RADS Category 4C:Suspicious Abnormality Lab Interpretation Abnormal (test code = 57500-0) [facility] for [facility]trasound (Add-on Only)2021-11-20 23:39:46 Test Item Value Reference Range Interpretation Comments Radiology Study observation (narrative) (test code = 74022-2) IMP (test code = IMP) 1: Mass [...] may be considered if it would change release manager. 4: Lymph nodes in the right axilla [...] biopsy may be considered if itwould change release manager. 7: Lymph nodes in the left axilla are suspicious. Ultrasound guided biopsy isrecommended. BI-RADS Category 4C:Suspicious Abnormality PXN (test code = PXN) Nupur Rosario, DO - 11/20/2021 CLINICAL INDICATION:Patient is a 81 year old female and is seen for abnormal mammogram FILMS COMPAREDThe present examination has been compared to a prior imaging study performed [facility] on 11/20/2021. Images were obtained [...] may be considered if it would change release manager. 4: Lymph nodes in the right axilla [...] biopsy may be considered if itwould change release manager. 7: Lymph nodes in the left axilla are suspicious. Ultrasound guided biopsy isrecommended. BI-RADS Category 4C:Suspicious Abnormality Lab Interpretation Abnormal (test code = 85946-1) [facility] [id number] 23:39:46 Test Item Value Reference Range Interpretation Comments Radiology Study observation (narrative) (test code = 19872-1) IMP (test code = IMP) 1: Mass [...] may be considered if it would change release manager. 4: Lymph nodes in the right axilla [...] biopsy may be considered if itwould change release manager. 7: Lymph nodes in the left axilla are suspicious. Ultrasound guided biopsy isrecommended. BI-RADS Category 4C:Suspicious Abnormality PXN (test code = PXN) Nupur Rosario, DO - 11/20/2021 CLINICAL INDICATION:Patient is a 81 year old female and is seen for abnormal mammogram FILMS COMPAREDThe present examination has been compared to a prior imaging study performed [facility] on 11/20/2021. Images were obtained [...] may be considered if it would change release manager. 4: Lymph nodes in the right axilla [...] biopsy may be considered if itwould change release manager. 7: Lymph nodes in the left axilla are suspicious. Ultrasound guided biopsy isrecommended. BI-RADS Category 4C:Suspicious Abnormality Lab Interpretation Abnormal (test code = 28527-9) [facility]
[2022-09-04] MEDS ORDERED: SILVER NITRATE 1 APPL TOP ONE (13:00)
[2022-09-04] MEDS ORDERED: OXYMETAZOLINE HCL 0.05% 15ML NAS ONE (13:00)
--- NOTE | 2022-09-04 13:24 | ER ---
Nurse's Notes [facility] Name: Deedee Smith Age: 82 yrs Sex: Female : 1940 Arrival Date: 09/04/2022 Time: 12:43 Bed 4 Private MD: Michael Kauffman C Diagnosis: Epistaxis Presentation: 09/04 12:48 Chief complaint: Nosebleed that started last night, stopped for several hours then hb started back this morning. Takes Eliquis for PE and DVT. Recently completed chemo for breast CA. Coronavirus screen: At this time, the client does not indicate any symptoms associated with coronavirus-19. Ebola Screen: No symptoms or risks identified at this time. Initial Sepsis Screen: Does the patient meet any 2 criteria? No. Patient's initial sepsis screen is negative. Does the patient have a suspected source of infection? No. Patient's initial sepsis screen is negative. Risk Assessment: Do you want to hurt yourself or someone else? Patient reports no desire to harm self or others. Onset of symptoms was September 03, 2022. 12:48 Method Of Arrival: Wheelchair hb 12:48 Acuity: SHAMEKA 3 hb Historical: - Allergies: 12:50 No Known Allergies; hb - PMHx: 12:50 Diabetes - IDDM; Hypercholesterolemia; Hypertension; left breast cancer; hb - PSHx: 12:50 Cholecystectomy; left chemo port; Total abdominal hysterectomy; hb - Family history:: not pertinent. Screenin:00 [facility] ED Fall Risk Assessment (Adult) History of falling in the last 3 months, aa5 including since admission Yes- single mechanical fall (1 pt) Confusion or Disorientation No (0 pts) Intoxicated or Sedated No (0 pts) Impaired Gait No (0 pts) Mobility Assist Device Used Yes (1 pt) Altered Elimination No (0 pt) Score/Fall Risk Level 0 - 2 = Low Risk Oriented to surroundings, Maintained a safe environment, Educated pt \T\ family on fall prevention, incl call for assistance when getting out of bed. Abuse screen: Denies threats or abuse. Nutritional screening: No deficits noted. Tuberculosis screening: No symptoms or risk factors identified. Assessment: 13:00 General: Appears uncomfortable, Behavior is calm, cooperative. Pain: Denies pain. aa5 Neuro: Level of Consciousness is awake, alert, obeys commands, Oriented to person, place, time, situation. Cardiovascular: Patient's skin is warm and dry. Respiratory: Airway is patent Respiratory effort is even, unlabored, Respiratory pattern is regular, symmetrical. GI: No signs and/or symptoms were reported involving the gastrointestinal system. : No signs and/or symptoms were reported regarding the genitourinary system. EENT: Nares with bleeding noted on left. Derm: Skin is pink, warm \T\ dry. 13:04 Reassessment: Mild bleeding noted to left nare . aa5 13:58 Reassessment: Patient is alert, oriented x 3, equal unlabored respirations, skin aa5 warm/dry/pink. EENT: Nares with no bleeding noted . Vital Signs: 12:48 BP 131 / 84; Pulse 68; Resp 16; Temp 97.8; Pulse Ox 100% on R/A; Weight 90.72 kg; hb Height 5 ft. 4 in. (162.56 cm); Pain 0/10; 13:35 BP 131 / 84; Pulse 80; Resp 18 S; Pulse Ox 97% on R/A; hb 12:48 Body Mass Index 34.33 (90.72 kg, 162.56 cm) hb ED Course: 12:43 Patient arrived in ED. rg4 12:43 Michael Kauffman MD is Private Physician. rg4 12:45 Josse Heaht MD is Attending Physician. rt 12:50 Triage completed. hb 12:51 Arm band placed on. hb 12:55 Nunu Richter, RN is Primary Nurse. aa5 13:00 Patient has correct armband on for positive identification. Bed in low position. Call aa5 light in reach. Side rails up X 1. Adult w/ patient. 13:21 Michael Kauffman MD is Referral Physician. rt 13:58 No provider procedures requiring assistance completed. Patient did not have IV access aa5 during this emergency room visit. Administered Medications: 13:04 Drug: Afrin (oxymetazoline) Drops (0.05 %) 3 sprays Route: Intranasal; Site: left nare; aa5 13:25 Drug: Silver Nitrate Applicators 1 application {Note: administered by Dr. Heath to aa5 nose .} Route: Topical; Site: affected area; Medication: 13:58 VIS not applicable for this client. aa5 Outcome: 13:22 Discharge ordered by . rt 13:58 Discharged to home via wheelchair, with family. aa5 13:58 Condition: improved 13:58 Discharge instructions given to patient, Instructed on discharge instructions, follow up and referral plans. Demonstrated understanding of instructions, follow-up care. 14:01 Patient left the ED. aa5 Signatures: Nunu Richter RN RN aa5 Jessi Tierney RN RN hb Garcia, Rubi rg4 Josse Heath MD MD rt Corrections: (The following items were deleted from the chart) 12:51 12:50 Allergies: none; hb hb
--- NOTE | 2022-09-04 13:24 | EDPHYS ---
Physician Documentation [facility] Name: Deedee Smith Age: 82 yrs Sex: Female : 1940 Arrival Date: 09/04/2022 Time: 12:43 Bed 4 Private MD: Michael Kauffman C ED Physician Josse Heath HPI: 09/04 13:22 This 82 yrs old Female presents to ER via Wheelchair with complaints of Nose Bleed. rt 13:22 The patient presents with a nose bleed, that is apparently anterior, from the left rt nare. Onset: The symptoms/episode began/occurred yesterday. Modifying factors: The symptoms are alleviated by nothing. the symptoms are aggravated by nothing. Modifying factors: The symptoms are alleviated by pressure. Associated signs and symptoms: The patient has no apparent associated signs or symptoms. Severity of symptoms: At their worst the symptoms were mild. Patient who is on Eliquis for thromboembolism presents to the ED with epistaxis starting yesterday. It was relieved with direct pressure. It again started up about 1 hour ago. Patient was unable to relieve it with direct pressure. Denies trauma or other acute complaints. Symptoms are mild in severity, no other aggravating alleviating factors.. Historical: - Allergies: 12:50 No Known Allergies; hb - PMHx: 12:50 Diabetes - IDDM; Hypercholesterolemia; Hypertension; left breast cancer; hb - PSHx: 12:50 Cholecystectomy; left chemo port; Total abdominal hysterectomy; hb - Family history:: not pertinent. ROS: 13:22 Constitutional: Negative for fever, chills, and weight loss, Eyes: Negative for injury, rt pain, redness, and discharge, Cardiovascular: Negative for chest pain, palpitations, and edema, Respiratory: Negative for shortness of breath, cough, wheezing, and pleuritic chest pain, Abdomen/GI: Negative for abdominal pain, nausea, vomiting, diarrhea, and constipation, Neuro: Negative for headache, weakness, numbness, tingling, and seizure, Psych: Negative for depression, anxiety, suicide ideation, homicidal ideation, and hallucinations. 13:22 ENT: Positive for nose bleed, Negative for rhinorrhea. Exam: 13:22 Constitutional: This is a well developed, well nourished patient who is awake, alert, rt and in no acute distress. Head/Face: Normocephalic, atraumatic. Chest/axilla: Normal chest wall appearance and motion. Nontender with no deformity. No lesions are appreciated. Cardiovascular: Regular rate and rhythm with a normal S1 and S2. No gallops, murmurs, or rubs. Normal PMI, no JVD. No pulse deficits. Respiratory: Lungs have equal breath sounds bilaterally, clear to auscultation and percussion. No rales, rhonchi or wheezes noted. No increased work of breathing, no retractions or nasal flaring. Abdomen/GI: Soft, non-tender, with normal bowel sounds. No distension or tympany. No guarding or rebound. No evidence of tenderness throughout. Neuro: Awake and alert, GCS 15, oriented to person, place, time, and situation. Cranial nerves II-XII grossly intact. Motor strength 5/5 in all extremities. Sensory grossly intact. Cerebellar exam normal. Normal gait. Psych: Awake, alert, with orientation to person, place and time. Behavior, mood, and affect are within normal limits. 13:22 ENT: Epistaxis noted to the left nare, bleeding noted to the septum. Otherwise unremarkable.. Vital Signs: 12:48 BP 131 / 84; Pulse 68; Resp 16; Temp 97.8; Pulse Ox 100% on R/A; Weight 90.72 kg; hb Height 5 ft. 4 in. (162.56 cm); Pain 0/10; 13:35 BP 131 / 84; Pulse 80; Resp 18 S; Pulse Ox 97% on R/A; hb 12:48 Body Mass Index 34.33 (90.72 kg, 162.56 cm) hb Procedures: 13:22 Epistaxis treatment: A small amount of bleeding noted from Treated using Oxymetazoline rt sprays, cauterization, silver nitrate. MDM: 12:45 Patient medically screened. rt 13:22 Differential diagnosis: spontaneous epistaxis. Data reviewed: vital signs, nurses notes.rt Administered Medications: 13:04 Drug: Afrin (oxymetazoline) Drops (0.05 %) 3 sprays Route: Intranasal; Site: left nare; aa5 13:25 Drug: Silver Nitrate Applicators 1 application {Note: administered by Dr. Heath to aa5 nose .} Route: Topical; Site: affected area; Disposition Summary: 09/04/22 13:22 Discharge Ordered Location: Home rt Problem: new rt Symptoms: are resolved rt Condition: Stable rt Diagnosis - Epistaxis rt Followup: rt - With: Michael Kauffman MD - When: 2 - 3 days - Reason: Discharge Instructions: - Discharge Summary Sheet rt - Nosebleed, Adult rt Forms: - Medication Reconciliation Form rt - Thank You Letter rt - Antibiotic Education rt - Prescription Opioid Use rt Signatures: Nunu Richter RN RN aa5 Jessi Tierney RN RN hb Josse Heath MD MD rt Corrections: (The following items were deleted from the chart) 12:51 12:50 Allergies: none; hb hb
[2022-09-04 14:19] VITALS: BP 131/84; TEMP 97.8
[2022-09-04 14:20] VITALS: O2SAT 97
== END 2022-09-04 14:01 | disposition home or self-care (01) ==
LOC: ER 12:41
DX: R04.0 Epistaxis (principal)
CPT/HCPCS: 30901; 99283

== ENCOUNTER 2024-12-20 16:21 | Observation (INO) | payer OTHER ==
--- OUTSIDE RECORDS SUMMARY | 2024-12-20 16:26 | XMS REPORT | Clinical Summary ---
Author Name Unknown Organization [facility] [place] Address [address] [place] [address] Care Team Providers Care Hop Weigher Name Role Phone Gonsalo Gracia MD Unavailable [phone] Gonsalo Gracia MD Unavailable [phone] Mónica Joseph MD Primary Care Provider [phone] Shaan Kauffman MD Unavailable [phone] Derik Quintanilla MD Unavailable Ami Lira MD Unavailable + Real Nichols MD Unavailable [phone] SadieNuzhat Hill MD Unavailable [phone] Nuzhat Cuba MD Primary Care Provider + [phone] Allergies Active Allergy Reactions Criticality Noted Date Comments Paclitaxel 12/18/2021 Facial flushing, feeling hot, throat "scratchy" Medications sitaGLIPtin (JANUVIA) 100 mg tablet Take 1 tablet (100 mg) by mouth daily. Active atorvastatin (LIPITOR) 80 mg tablet Take 1 tablet (80 mg) by mouth daily. 03/18/20 Active folic acid (FOLVITE) 1 mg tablet Take 1 tablet (1 mg) by mouth. Active acetaminophen (TylenoL) 325 mg tabletIndicat ions:Infiltra ting duct carcinoma of right female breast Take 1 tablet (325 mg) by mouth every 6 (six) hours as needed for mild pain or moderate pain. 20 tablet 2 11:33 AM UTILITY LOCATOR 09/11/20 22 Active vitamin B complex capsuleIndica tions:Periphe ral neuropathy Take 1 capsule by mouth daily. 30 capsule 1 09/25/19 23 Active alpha lipoic acid 600 mg capIndication s:Peripheral neuropathy Take 600 mg by mouth twice daily. 60 each 2 09/25/19 23 Active calcium carbonate (OS-AFRIHA) 600 mg calcium (1,500 mg) tablet Take 2 tablets (1,200 mg) by mouth daily. Active docusate sodium (COLACE) 100 mg capsule Take 1 capsule (100 mg) by mouth daily. Active mv-min/folic/ K1/lycopen/heena tein (CENTRUM MEN 50 PLUS MINIS ORAL) Take by mouth daily. Active melatonin 10 mg tablet Take 1 tablet (10 mg) by mouth at bedtime. Active prochlorperaz ine (Compazine) 10 mg tabletIndicat ions:Infiltra ting ductal carcinoma of upper outer quadrant of right female breast Take 1 tablet by mouth every 6 hours as needed for nausea/vomitin g. 30 tablet 2 3 11:40 AM CDT 11/29/19 23 Active Additional Information Patient not taking.Reason: No longer taking, Reported on 12/30/2023 letrozole (FEMARA) 2.5 mg tabletIndicat ions:Infiltra ting duct carcinoma of right female breast TAKE ONE TABLET BY MOUTH DAILY 90 tablet 3 10/07/19 24 Active abemaciclib (VERZENIO) 100 mg tabletIndicat ions:Infiltra ting duct carcinoma, NOS of breast, NOS <Female; Unspecified> Take 1 tablet (100 mg) by mouth twice daily. 56 tablet 3 5 10:23 AM UTILITY LOCATOR 10/12/19 25 Active DULoxetine (Cymbalta) 30 mg capsuleIndica tions:Infiltr ating duct carcinoma, NOS of breast, NOS <Female; Unspecified> Take 1 capsule (30 mg) by mouth at bedtime. 30 capsule 2 12/17/19 25 Active gabapentin (NEURONTIN) 300 mg capsuleIndica tions:Periphe ral neuropathy Take 2 capsules (600 mg) by mouth twice daily. 120 capsule 3 10/30/19 23 025 Discontinued abemaciclib (VERZENIO) 100 mg tabletIndicat ions:Infiltra ting ductal carcinoma of upper outer quadrant of right female breast Take 1 tablet (100 mg) by mouth twice daily. 56 tablet 2 09/25/19 24 024 Discontinued(Re order) abemaciclib (VERZENIO) 100 mg tabletIndicat ions:Infiltra ting ductal carcinoma of upper outer quadrant of right female breast Take 1 tablet (100 mg) by mouth twice daily. 56 tablet 2 12/30/19 24 024 Discontinued(Re order) abemaciclib (VERZENIO) 100 mg tabletIndicat ions:Infiltra ting ductal carcinoma of upper outer quadrant of right female breast Take 1 tablet (100 mg) by mouth twice daily. 56 tablet 2 05/25/20 24 025 Discontinued(Re order) Active Problems Problem Noted Date Diagnosed Date Pulmonary embolism 08/29/2022 Assessment & Plan (11/22/2022 7:07 AM UTILITY LOCATOR): Pulmonary embolism and DVT diagnosed incidentally in June 2022 in the setting of neoadjuvant chemotherapy. This is considered provoked by cancer and cancer directed therapy. Duration of anticoagulation is 6 months. She will complete anticoagulation when her current Eliquis prescription runs out. Assessment & Plan (08/29/2022 10:01 AM UTILITY LOCATOR): Pulmonary embolism and DVT diagnosed incidentally in June 2022 in the setting of neoadjuvant chemotherapy. This is considered provoked by cancer and cancer directed therapy. Duration of anticoagulation is 6 months. For her upcoming segmental mastectomy and axillary lymph node dissection, I recommend that she hold Xarelto 3 days prior to surgery (last dose of Eliquis should be on 09/07/2022). She should restart anticoagulation on postop day 1. If the patient is admitted to the hospital, at the surgical team's discretion, while admitted she can receive low molecular weight or unfractionated subcutaneous heparin. If she is going to be managed outpatient, she can simply be restarted on Eliquis 5 mg PO BID on postop day 1 or postop day 2 at the surgical team's discretion based on operative findings and risk of bleeding. 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 Cancer Staging:Clinical stage from 12/03/2021:Stage IIIB(cT2, cN3, cM0, G3, ER+, SD+, HER2-) - Unsigned Pathologic stage from 09/23/2022:No Stage Recommended(ypT1c, pN1a, cM0, G3, ER+, SD+, HER2-) - Unsigned Essential (primary) hypertension 04/16/2020 Hyperlipidemia 04/16/2020 Gastroesophageal reflux disease 04/16/2020 History of malignant neoplasm of endometrium 10/2019 Malignant neoplasm of endometrium 01/16/2016 Cancer Staging:Clinical stage from 02/25/2016:Stage IA(Primary) - Signed by Mónica Joseph MD on 02/26/2016 Diabetes mellitus 01/16/2016 Encounters Date Type Department Care Team Description 12/16/2024 9:20 AM CDT Follow-Up MD [facility] in [place] - Breast Medical Oncology [address] [place] [address] Nuzhat Cuba MD Infiltrating duct carcinoma, NOS of breast, NOS <Female; Unspecified> (Primary Dx); Fatigue; Antineoplastic chemotherapy induced anemia; Nausea; Drug-induced polyneuropathy 12/16/2024 Travel 12/14/2024 Orders Only MD [facility] in [place] - Medical Oncology [address] [place] [address] Luci Hightower APRN Infiltrating duct carcinoma, NOS of breast, NOS <Female; Unspecified> (Primary Dx) 11/04/2024 [facility]ty [facility] [address] [place] [address] Meño Ken, PharmD Refill Coordination Outreach - abemaciclib (VERZENIO) for Breast Cancer 10/19/2024 Refill MD [facility] in [facility] Breast Medical Oncology [address] [place] [address] [address] [place] [address] Nuzhat Cuba MD 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 10/13/2024 Specialty [facility] [address] [place] [address] Meño Ken, PharmD Initial Refill Managment Patient Education for Breast Cancer, Set up Initial Fill for Breast Cancer, Benefits Investigation for Breast Cancer, Benefits Investigation for Breast Cancer 10/12/2024 1:00 PM UTILITY LOCATOR Follow-Up MD [facility] in [facility] Breast Medical Oncology [address] [place] [address] Nuzhat Cuba MD Infiltrating duct carcinoma, NOS of breast, NOS <Female; Unspecified> 10/12/2024 Specialty Pharmacy [facility] [address] [place] [address] Anna Marie, [facility] 10/12/2024 Travel 09/20/2024 Orders Only MD [facility] in [facility] Medical Oncology [address] [place] [address] Luci Hightower APRN Infiltrating duct carcinoma, NOS of breast, NOS <Female; Unspecified> (Primary Dx) 09/19/2024 Telephone MD [facility] in [facility] Breast Medical Oncology [address] [place] [address] Gely Loera, RN 08/01/2024 Refill MD [facility] in [facility] Breast Medical Oncology [address] [place] [address] [address] [place] [address] Nuzhat Cuba MD 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 07/06/2024 8:30 AM CDT Follow-Up MD [facility] in [place] - Radiation Oncology [address] [place] [address] [address] [place] [address] Maine Vitale MD Kumar, Savita, PA 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 07/06/2024 Travel 05/23/2024 Refill MD [facility] in [facility] Medical Oncology [address] [place] [address] [address] [place] [address] Gely Loera, RN 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 04/11/2024 Refill MD [facility] in [facility] Medical Oncology [address] [place] [address] [address] [place] [address] Luci Hightower APRN 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 03/25/2024 2:00 PM CDT Telephone MD [facility] in [facility] Oncology [address] [place] [address] [address] [place] [address] Nuzhat Cuba MD 03/16/2024 2:00 PM CDT Follow-Up MD [facility] in [facility] Oncology [address] [place] [address] [address] [place] [address] Luci Hightower APRN Nwosu-Iheme, Adaeze, MD 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 (Primary Dx); Antineoplastic chemotherapy induced anemia; Thrombocytopenia, not otherwise specified 03/16/2024 1:20 PM CDT Ancillary Procedure [facility] in [place] [address], [address] [place] [address] Luci Hightower APRN 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 03/16/2024 12:00 PM CDT Ancillary Procedure [facility] in [place] [address], [address] [place] [address] Luci Hightower APRN 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 03/16/2024 Travel 01/18/2024 Refill MD [facility] in [facility] Medical Oncology [address] [place] [address] [address] [place] [address] Nuzhat Cuba MD 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 01/13/2024 Refill MD [facility] in [facility] Medical Oncology [address] [place] [address] [address] [place] [address] Nuzhat Cuba MD 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 12/30/2023 9:40 AM CDT Follow-Up MD [facility] in [place] - Breast Medical Oncology [address] [place] [address] [address] [place] [address] Luci Hightower APRN 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 12/30/2023 Telephone MD [facility] in [place] - Breast Medical Oncology [address] [place] [address] Diann Gan RN 12/30/2023 Travel after 12/21/2023 Immunizations Name Administration Dates Next Due Moderna SARS-CoV-2 Vaccination 07/15/2021,2020,12/17/2020 Surgical History Surgery Date Site/Laterality Comments PATELLA FRACTURE SURGERY CHOLECYSTECTOMY 09/14/2005 - 09/13/2006 lap dominic with hernia repair LAPAROTOMY EXPLORATORY 09/14/1945 - 09/13/1946 abdominal injury-from glass injury HERNIA REPAIR 09/14/2005 - 09/13/2006 UMbilical HERNIA REPAIR Abdominal, TOTAL ABDOMINAL HYSTERECTOMY W/ BILATERAL SALPINGOOPHORECTOMY 09/14/2015 - 09/13/2016 BREAST BIOPSY HYSTERECTOMY SD MASTECTOMY PARTIAL 09/11/2022 Breast/Right Procedure: SEGMENTAL MASTECTOMY - OTHER; Surgeon: Ami Lira MD; Location: MAIN OR; Service: BREAST SD AXILLARY LYMPHADENECTOMY COMPLETE 09/11/2022 Axilla/Right Procedure: AXILLARY LYMPHADENECTOMY; Surgeon: Ami Lira MD; Location: MAIN OR; Service: BREAST SD RMVL VASQUEZ CTR VAD W/SUBQ PORT/ACCOUNT EXECUTIVE METALWORKING CTR/PRPH INSJ 09/11/2022 Chest/Left Procedure: PORT-A-CATH REMOVAL; Surgeon: Ami Lira MD; Location: MAIN OR; Service: BREAST Medical History Medical History Date Comments Psoriasis Hand wart Diabetes mellitus Reflux gastritis Hyperlipidemia Cancer Gastroesophageal reflux disease Hypertension Family History Medical History Relation Name Comments -Gynecology (Ovary, Endometrial, Cervix, Vagina) Cousi n Mcousin uterine -Gastrointestinal (Esophagus , Liver, Bile Duct, Stomach, Pancreas, Colon, Rectum, Anus Paternal Aunt e sophageal Relation Name Status Comments Cousin [place] Alive Paternal Aunt Social History Tobacco Use Types Packs/Day Years Used Date Smoking Tobacco: Never Smokeless Tobacco: Never Tobacco Cessation:Counseling Given: Not Answered Alcohol Use Standard Drinks/Week Comments No 0 (1 standard drink = 0.6 oz pur e alcohol) Comments No Sex and Gender Information Value Date Recorded Sex Assigned at Not on file Legal Sex Female 12:13 PM CDT Gender Identity Not on file Sexual Orientation Not on file Obstetrics History Para Term AB IAB SAB Ectopic Multiple Livin g Live Births 4 3 1 3 Date Outcome GA Total Labor Labor/2nd/3rd Weight Sex Type Anes PTL Rox A1 A5 Name Clin Para Para Para AB Comments 1 mis 1 episode of abnormal pap smear in early , cryotherapy 1 D&C for evaluation as well, it was normal. Menopausal status: 50 yo G 4 P 3 Menarche: 12 yo Parity: 27 yo : 6yr OCP: 3-4 years HRT: Progesterone during her pregnancies, less than 5 years total Last Filed Vital Signs Vital Sign Reading Time Taken Comments Blood Pressure 124/77 12/16/2024 9:12 AM CDT Pulse 69 12/16/2024 9:12 AM CDT Temperature 36.5 °C (97.7 °F) 12/16/2024 9:12 AM CD T Respiratory Rate 18 12/16/2024 9:12 AM CDT Oxygen Saturation - - Inhaled Oxygen Concentration - - Weight 86.1 kg (189 lb 13.1 oz) 12/16/2024 9:12 AM CDT Height 162 cm (5' 3.78") 03/16/2024 2:23 PM CDT Body Mass Index 32.81 03/16/2024 2:23 PM CDT Plan of Treatment Upcoming Encounters Date Type Department Care Team (Late st Contact Info) Description 03/15/2025 8:00 AM CDT Ancillary Procedure MD [facility] [place] [address] [facility] [address] [place] [address] Luci Hightower, MAGAZINE WORKER [address] [place] [address] [email or web address] 03/15/2025 8:45 AM CDT Ancillary Procedure MD [facility] [place] [address] [facility] [address] [place] [address] Luci Hightower APRN [address] [place], [place] [id number] [email or web address] 03/15/2025 11:40 AM CDT Follow-Up MD [facility] in [place] - Breast Medical Oncology [address] [place] [address] Nuzhat Cuba MD [address] [place] [address] [email or web address] Health Maintenance Due Date Last Done Comments Pneumococcal Vaccine: 50+ Ye ars (1 of 2 - PCV) 1959 COVID-19 Vaccine ( season) 2024 07/15/2021, 01/14/2021, 12/17/2020 Influenza Vaccine (#1) 2024 Medical Devices Implanted Type Area Assembler Cards And Announcements Device Identifier Shelf Expiration Date Model / Serial / Lot Margarita Arriaza 8fr - [id number] Implanted:Qty: 1 on 12/16/[address] [facility] Explanted:09/11 (Quantity not on file) [place] PERIPHERAL VASCULAR 12/12/2022 [id number] / [id number] / [id number] Procedures Procedure Name Priority Date/Time Associated Diagnosis Comments .CBC Routine 12/16/2024 9:04 AM CDT Infiltrating duct carcinoma, NOS of breast, NOS <Female; Unspecified> COMPLETE BLOOD COUNT W/ DIFFERENTIAL Routine 12/16/2024 9:04 AM CDT Infiltrating duct carcinoma, NOS of breast, NOS <Female; Unspecified> .CBC Routine 10/12/2024 11:43 AM UTILITY LOCATOR Infiltrating duct carcinoma, NOS of breast, NOS <Female; Unspecified> COMPLETE BLOOD COUNT W/ DIFFERENTIAL Routine 10/12/2024 11:43 AM UTILITY LOCATOR Infiltrating duct carcinoma, NOS of breast, NOS <Female; Unspecified> COMPREHENSIVE METABOLIC PANEL Routine 10/12/2024 11:43 AM UTILITY LOCATOR Infiltrating duct carcinoma, NOS of breast, NOS <Female; Unspecified> MAMMO DIGITAL DIAGNOSTIC BILATERAL W JOE Routine 03/16/2024 1:34 PM CDT 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 DEXA BONE MINERAL DENSITY BOTH HIPS AND SPINE Routine 03/16/2024 12:03 PM CDT 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 DIFFERENTIAL Routine 03/16/2024 10:18 AM CDT 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 .CBC Routine 03/16/2024 10:18 AM CDT 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 COMPLETE BLOOD COUNT W/ DIFFERENTIAL Routine 03/16/2024 10:18 AM CDT 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 COMPREHENSIVE METABOLIC PANEL Routine 03/16/2024 10:18 AM CDT 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 .CBC Routine 12/29/2023 9:15 AM CDT 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 COMPLETE BLOOD COUNT W/ DIFFERENTIAL Routine 12/29/2023 9:15 AM CDT 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 COMPREHENSIVE METABOLIC PANEL Routine 12/29/2023 9:15 AM CDT 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 after 12/21/2023 Results * (ABNORMAL) .CBC (12/16/2024 9:04 AM CDT) Only the most recent of4 resultswithin the time period is included. White Blood Cell 3.4(L) 4.1 - 10.5 K/uL 12/16/2024 9:07 AM CDT [place] Red Blood Cell 2.99(L) 3.99 - 5.46 M/uL 12/16/2024 9:07 AM CDT [place] Hemoglobin 11.1(L) 12.2 - 15.3 g/dL 12/16/2024 9:07 AM CDT [place] Hematocrit 33.6(L) 36.4 - 46.8 % 12/16/2024 9:07 AM CDT [place] Mean Cell Volume 112(H) 82 - 99 fL 12/16/2024 9:07 AM CDT [place] Mean Cell Hemoglobin 37.1(H) 26.6 - 33.2 pg 12/16/2024 9:07 AM CDT [place] Mean Cell Hemoglobin Concentration 33.0 31.1 - 35.2 g/dL 12/16/2024 9:07 AM CDT [place] RDW-SD 57.7(H) 37.5 - 49.7 fL 12/16/2024 9:07 AM CDT [place] Red Cell Diameter Width 14.9 11.6 - 15.5 % 12/16/2024 9:07 AM CDT [place] Platelet 82(L) 160 - 397 K/uL 12/16/2024 9:07 AM CDT [place] Mean Platelet Volume 10.6 9.1 - 12.6 fL 12/16/2024 9:07 AM CDT [place] Neutrophil % 57.2 43.2 - 72.7 % 12/16/2024 9:07 AM CDT [place] Lymphocyte % 32.9 16.8 - 46.2 % 12/16/2024 9:07 AM CDT [place] Monocyte % 5.5 5.1 - 12.5 % 12/16/2024 9:07 AM CDT [place] Eosinophil % 2.9 0.4 - 6.3 % 12/16/2024 9:07 AM CDT [place] Basophil % 1.5(H) 0.2 - 1.4 % 12/16/2024 9:07 AM CDT [place] Neutrophil Abs 1.96 1.95 - 7.25 K/uL 12/16/2024 9:07 AM CDT [place] Lymphocyte Abs 1.13 1.01 - 3.24 K/uL 12/16/2024 9:07 AM CDT [place] Monocyte Abs 0.19(L) 0.24 - 0.85 K/uL 12/16/2024 9:07 AM CDT [place] Eosinophil Abs 0.10 0.02 - 0.50 K/uL 12/16/2024 9:07 AM CDT [place] Basophil Abs 0.05 0.02 - 0.09 K/uL 12/16/2024 9:07 AM CDT [place] Blood Peripheral blood specimen / Unknown Venipuncture / Unknown 12/16/2024 9:04 AM CDT 12/16/2024 9:04 AM CDT us Luci Hightower APRN LAB BLOOD ORDERABLES Final Resul t [facility] [address], [address] [place] [address] * (ABNORMAL) Comprehensive Metabolic Panel (10/12/2024 11:43 AM UTILITY LOCATOR) Only the most recent of3 resultswithin the time period is included. Bilirubin Total 0.3 0.0 - 1.2 mg/dL 10/12/2024 12:09 PM [facility] Comment:Indocyanine Green (I CG) may cause falsely elevated bilirubin results. Total and direct bilirubin must not be measured from samples containing indocyanine green. False elevation of total bilirubin can be seen in patients with IgG concentrations above 28 g/L. eGFR 54(L) >=60 mL/min/1. 73 sq. m 10/12/2024 12:09 PM [facility] Comment: The eGFRcr is calculated with the 2020 CKD-EPI creatinine equation using creatinine, patient's age, and sex for adults 18 years of age and older. Other factors, especially muscle mass, may affect accuracy and need to be considered. According to the Kidney Disease: Improving Global Outcomes (KDIGO) CKD Work Group 2012 Clinical Practice Guideline, chronic kidney disease (CKD) is defined as the abnormalities of kidney structure or function, present for more than 3 months, with implications for health. CKD should be classified by cause, GFR category, and albuminuria category. KDIGO guidelines provide the following GFR categories. Stage / Description / GFR mL/min/1.73 m2: G1* / Normal or high / >= 90 G2* / Mildly decreased / 60-89 G3a / Mildly to moderately decreased / 45-59 G3b / Moderately to severely decreased / 30-44 G4 / Severely decreased / 15-29 G5 / Kidney failure / <15 *In the absence of evidence of kidney damage, neither G1 nor G2 fulfill criteria for CKD. Tot Protein 6.6 6.4 - 8.3 gm/dL 10/12/2024 12:09 PM UTILITY LOCATOR [place] Calcium Level Total 10.1 8.2 - 10.2 mg/dL 10/12/2024 12:09 PM UTILITY LOCATOR [place] Alkaline Phosphatase 84 35 - 104 U/L 10/12/2024 12:09 PM UTILITY LOCATOR [place] Albumin Level 3.9 3.5 - 5.2 gm/dL 10/12/2024 12:09 PM UTILITY LOCATOR [place] AST 16 <=32 U/L 10/12/2024 12:09 PM UTILITY LOCATOR [place] ALT 12 <=33 U/L 10/12/2024 12:09 PM UTILITY LOCATOR [place] Sodium Level 139 136 - 145 mmol/L 10/12/2024 12:09 PM UTILITY LOCATOR [place] Potassium Level 3.9 3.4 - 4.5 mmol/L 10/12/2024 12:09 PM UTILITY LOCATOR [place] Chloride 102 98 - 107 mmol/L 10/12/2024 12:09 PM UTILITY LOCATOR [place] CO2 26 22 - 29 mmol/L 10/12/2024 12:09 PM UTILITY LOCATOR [place] Anion Gap 11 4 - 14 mmol/L 10/12/2024 12:09 PM UTILITY LOCATOR [place] Creatinine 1.03(H) 0.51 - 0.95 mg/dL 10/12/2024 12:09 PM UTILITY LOCATOR [place] BUN 17 6 - 23 mg/dL 10/12/2024 12:09 PM UTILITY LOCATOR [place] Glucose Level 230(H) 70 - 99 mg/dL 10/12/2024 12:09 PM UTILITY LOCATOR [place] Comment: Effective 04/09/16, the glucose reference intervals have been updated based on [place] Diabetes Association guidelines (Standards of Medical Care in Diabetes 2016. Diabetes Care 2016; 39: S13-S22). Fasting blood glucose: Normal: 70-99 mg/dL Impaired fasting glucose (increased risk for diabetes or pre-diabetes): 100-125 mg/dL Diabetes mellitus: >/=126 mg/dL Random blood glucose: Normal: 70-199 mg/dL Note: Random glucose >100 mg/dL is associated with increased risk for diabetes. Blood Peripheral blood specimen / Unknown Venipuncture / Unknown 10/12/2024 11:43 AM UTILITY LOCATOR 10/12/2024 11:47 AM UTILITY LOCATOR us Luci Johansendeshawn MAGAZINE WORKER LAB BLOOD ORDERABLES Final Resul t [facility] [address], [address] [place] [address] * Mammography Digital Diagnostic Bilateral with Joe (03/16/2024 1:34 PM CDT) Anatomical Region Laterality Modality Breast Bilateral Mammography 03/16/2024 2:41 PM CDT Impressions 03/16/2024 2:41 PM CDT There is no mammographic evidence of malignancy. Follow-up mammogram in 1 year is recommended. BI-RADS Category 2: Benign Finding(s) Narrative 03/16/2024 2:41 PM CDT CLINICAL INDICATION: Patient is a 83 year old female and is seen for history of breast cancer MAMMO DIGITAL DIAGNOSTIC BILATERAL W JOE Digital Mammogram evaluated with Computer Aided Detection (CAD). COMPARISON: The present examination has been compared to prior imaging studies performed at an outside location on 01/02/2022, at [facility] on 09/10/2022, 09/11/2022 and 02/24/2023, and at [facility] on 11/20/2021 and 08/19/2022. FINDINGS: The breasts are heterogeneously dense, which may obscure small masses. 1: There is a post surgical scar with associated post radiation change and surgical clips in the right breast in the upper outer region and in the axilla region. The patient underwent breast conservation surgery followed by radiation therapy. 2: There are benign appearing and vascular calcifications in both breasts. 3: There is a post biopsy clip in the left breast. Tomosynthesis performed in and [facility] projections. Procedure Note Maria T Corral MD - 03/16/2024 CLINICAL INDICATION: Patient is a 83 year old female and is seen for history of breast cancer MAMMO DIGITAL DIAGNOSTIC BILATERAL W JOE Digital Mammogram evaluated with Computer Aided Detection (CAD). COMPARISON: The present examination has been compared to prior imaging studiesperformed at an outside location on 01/02/2022, at [facility] on 09/10/2022, 09/11/2022 and 02/24/2023, and at [facility] on 11/20/2021 and 08/19/2022. FINDINGS: The breasts are heterogeneously dense, which may obscure small masses. 1: There is a post surgical scar with associated post radiation changeand surgical clips in the right breast in the upper outer region and in theaxilla region. The patient underwent breast conservation surgery followed byradiation therapy. 2: There are benign appearing and vascular calcifications in bothbreasts. 3: There is a post biopsy clip in the left breast. Tomosynthesis performed in CC and MLO projections. IMPRESSION: There is no mammographic evidence of malignancy. Follow-up mammogram in 1 year is recommended. BI-RADS Category 2: Benign Finding(s) [facility] [employer] WORK[employer] IM MAMMOGRAPHY ORDERABLES Final Result * NM Bone Mineral Density Both Hips and Spine (03/16/2024 12:03 PM CDT) Anatomical Region Laterality Modality Spine Nuclear Medicine 03/16/2024 12:0 3 PM CDT Impressions 03/16/2024 12:21 PM CDT 1. Osteopenia, based upon measurements in the lumbar spine, bilateral femoral necks and right total hip. 2. The BMD measurement of the left total hip has significantly decreased as compared with previous exam in 2022. I personally reviewed these image(s) along with the resident's/fellow's interpretations, certify that if a procedure was performed I was physically present, and agree with the final report. Narrative 03/16/2024 12:21 PM CDT FULL RESULT: Examination: Bone Mineral Density (DXA), 03/16/2024 Clinical History: A 83-year-old postmenopausal female treated for breast cancer. Indication: Assessment of bone mineral density. Comparison: BMD exam on 02/24/2023. Technique: Bone mineral density was obtained using Hologic dual-energy X-ray absorptiometry. Findings: The findings are provided in the below table(s). Bone Density: Region Exam Date BMD T- Z- g/cm2 Score Score AP Spine (L3, L4) 03/16/2024 0.912 -1.7 1.3 Femoral Neck (Left) 03/16/2024 0.713 -1.2 1.2 Total Hip (Left) 03/16/2024 0.854 -0.7 1.6 Femoral Neck (Right) 03/16/2024 0.611 -2.1 0.3 Total Hip (Right) 03/16/2024 0.791 -1.2 1.0 For postmenopausal women and men age 50 and over, the World Health Organization criteria for BMD interpretation classify patients as: Normal (T-score at or above -1.0), Osteopenia (T-score between -1.0 and -2.5), or Osteoporosis (T-score at or below -2.5). Previous Exams: Region Exam Age BMD T-score BMD Change vs Date g/cm2 Baseline Previous AP Spine (L3-L4) 03/16/2024 83 0.912 -1.7 -2.9% -2.9% 02/24/2023 82 0.939 -1.5 Total Hip(Left) 03/16/2024 83 0.854 -0.7 -6.0%* -6.0%* 02/24/2023 82 0.909 -0.3 Femoral Neck(Left) 03/16/2024 83 0.713 -1.2 0.2% 0.2% 02/24/2023 82 0.711 -1.2 Total Hip(Right) 03/16/2024 83 0.791 -1.2 -1.5% -1.5% 02/24/2023 82 0.803 -1.1 Femoral Neck(Right) 03/16/2024 83 0.611 -2.1 -6.4% -6.4% 02/24/2023 82 0.652 -1.8 *Denotes significance at 95% confidence level, site specific LSC for AP Spine = 0.029 g/cm2, site specific LSC for Total Hip = 0.033 g/cm2, site specific LSC for Femoral Neck = 0.045 g/cm2, LSC for 09/16 Forearm = 0.023 g/cm2 Procedure Note Blanka Thrasher MD - 03/16/2024 FULL RESULT: Examination: Bone Mineral Density (DXA), 03/16/2024 Clinical History: A 83-year-old postmenopausal female treated for breastcancer. Indication: Assessment of bone mineral density. Comparison: BMD exam on 02/24/2023. Technique: Bone mineral density was obtained using Hologic [id number]-gbv absorptiometry. Findings: The findings are provided in the below table(s). Bone Density: Region Exam Date BMD T- Z- g/cm2 Score Score AP Spine (L3, L4) 03/16/2024 0.912 -1.7 1.3 Femoral Neck (Left) 03/16/2024 0.713 -1.2 1.2 Total Hip (Left) 03/16/2024 0.854 -0.7 1.6 Femoral Neck (Right) 03/16/2024 0.611 -2.1 0.3 Total Hip (Right) 03/16/2024 0.791 -1.2 1.0 For postmenopausal women and men age 50 and over, the World Health Organization criteria for BMD interpretation classify patients as: Normal (T-score at or above -1.0), Osteopenia (T-score between -1.0 and -2.5), or Osteoporosis (T-score at or below -2.5). Previous Exams: Region Exam Age BMD T-score BMD Change vs Date g/cm2 Baseline Previous AP Spine (L3-L4) 03/16/2024 83 0.912 -1.7 -2.9% -2.9% 02/24/2023 82 0.939 -1.5 Total Hip(Left) 03/16/2024 83 0.854 -0.7 -6.0%* -6.0%* 02/24/2023 82 0.909 -0.3 Femoral Neck(Left) 03/16/2024 83 0.713 -1.2 0.2% 0.2% 02/24/2023 82 0.711 -1.2 Total Hip(Right) 03/16/2024 83 0.791 -1.2 -1.5% -1.5% 02/24/2023 82 0.803 -1.1 Femoral Neck(Right) 03/16/2024 83 0.611 -2.1 -6.4% -6.4% 02/24/2023 82 0.652 -1.8 *Denotes significance at 95% confidence level, site specific LSC for APSpine = 0.029 g/cm2, site specific LSC for Total Hip = 0.033 g/cm2, sitespecific LSC for Femoral Neck = 0.045 g/cm2, LSC for 1/3 Forearm = 0.023 g/cm2 IMPRESSION: 1. Osteopenia, based upon measurements in the lumbar spine, bilateralfemoral necks and right total hip. 2. The BMD measurement of the left total hip has significantly decreasedas compared with previous exam in 2022. I personally reviewed these image(s) along with the resident's/fellow'sinterpretations, certify that if a procedure was performed I wasphysically present, and agree with the final report. [facility] Final Result * (ABNORMAL) Differential (03/16/2024 10:18 AM CDT) Total Cells 100 03/16/2024 12:51 PM CDT [facility] Manual Neutrophil % 43.0(L) 43.2 - 72.7 % 03/16/2024 12:51 PM CDT [facility] Comment:The Neutrophil count includes Bands. Manual Lymphocyte % 37.0 16.8 - 46.2 % 03/16/2024 12:51 PM CDT [facility] Manual Monocyte % 9.0 5.1 - 12.5 % 03/16/2024 12:51 PM CDT [facility] Manual Eosinophil % 6.0 0.4 - 6.3 % 03/16/2024 12:51 PM CDT [facility] Manual Basophil % 5.0(H) 0.2 - 1.4 % 03/16/2024 12:51 PM CDT [facility] Metamyelocyte % 12:51 PM CDT [facility] Comment:The Metamyelocyte co unt includes Myelocytes. Manual Neutrophil Abs 1.46(L) 1.95 - 7.25 K/uL 03/16/2024 12:51 PM CDT [facility] Manual Lymphocyte Abs 1.26 1.01 - 3.24 K/uL 03/16/2024 12:51 PM CDT [facility] Manual Monocyte Abs 0.31 0.24 - 0.85 K/uL 03/16/2024 12:51 PM CDT [facility] Manual Eosinophil Abs 0.20 0.02 - 0.50 K/uL 03/16/2024 12:51 PM CDT [facility] Manual Basophil Abs 0.17(H) 0.02 - 0.09 K/uL 03/16/2024 12:51 PM CDT [facility] RBC Morphology PRESENT 03/16/2024 12:51 PM CDT [facility] PLT Morph Normal Normal 03/16/2024 12:51 PM CDT [facility] Anisocytosis Present(A) (none) 03/16/2024 12:51 PM CDT [facility] Ovalocyte Present(A) (none) 03/16/2024 12:51 PM CDT [facility] Macrocyte Present(A) (none) 03/16/2024 12:51 PM CDT [facility] Blood Peripheral blood specimen / Unknown Venipuncture / Unknown 03/16/2024 10:18 AM CDT 03/16/2024 10:18 AM CDT us Luci Hightower MAGAZ[employer] WORKER LAB BLOOD ORDERABLES Final Resul t [facility] [id number], Room [id number] [place] [address] after 12/21/2023 Insurance [employer] MED[employer]ARE PPO [employer] MED[employer]ARE PPO Advance Directives * Full Code (Latest Code Status on File) Date Activated Date Inactivated Comments 09/11/2022 9:39 PM 09/12/2022 2:29 PM Care Teams Hop Weigher Relationship Specialty Start Date End Date Gonsalo Gracia MD [address] [place] [address] [email or web address] PCP - External Referring 01/03/16 Gonsalo Gracia MD [address] [place] [address] [email or web address] PCP - External Follow Up A 01/03/16 Mónica Joseph MD [address] [place] [address] [phone] [email or web address] PCP - General Gynecologic Medical Oncology 02/26/16 12/15/24 Shaan Kauffman MD [address] [place] [phone] PCP - External Follow Up B Internal Medicine 04/16/20 Nuzhat Cuba MD [address] [place] [phone] [email or web address] PCP - General Breast Medical Oncology 12/16/24 Derik Quintanilla MD [address] [place] [id number] [email or web address] [email or web address] Physician Internal Medicine 08/29/22 Ami Lira MD [address] [place] [id number] [email or web address] Consulting Physician Breast Surgery 11/22/21 Real Nichols MD [address] [place] [id number] [email or web address] Consulting Physician Pain Management 09/25/22 Nuzhat Cuba MD [address] [place] [phone] [email or web address] Consulting Physician Breast Medical Oncology 12/06/21
[2024-12-20 17:25] VITALS: BMI 33.1
[2024-12-20] MEDS: Levofloxacin500mg IV 500 MG/100 ML BAG IV SCH (17:57)
[2024-12-20] MEDS: NA CHLORIDE 0.9% 1,000 ML IV SCH (17:57)
[2024-12-20 17:58] LABS: Absolute Basophils 0.1 K/uL (0-0.5); Absolute Lymphocytes (CBC) 0.9 K/uL (0.7-4.9); Absolute Monocytes 0.2 K/uL (0.1-1.3); Absolute Neutrophil 2.5 K/uL (1.8-8.0); Basophils % 1.5 % (0-1.3); Eosinophils % 1.3 % (0-4.4); Hematocrit 34.1 % (36.0-45.0); Hemoglobin 11.9 g/dL (12.0-15.0); Lymphocytes % 24.4 % (15.3-44.8); MCH 37.8 pg (27.0-35.0); MCHC 34.8 g/dL (32.0-36.0); MCV 108.4 fL (80-100); MPV 8.7 fL (7.6-11.3); Monocytes % 6.1 % (3.3-12.3); Neutrophils % 66.7 % (41.7-73.7); Nucleated Red Blood Cells % 0.1 % (0-0); Platelets 90 thou/uL (152-406); RBC Red Blood Cell Count 3.14 M/uL (3.86-4.86); Red Cell Distribution Width 17.4 % (12.1-15.2)
[2024-12-20 18:24] LABS: Albumin 3.6 g/dL (3.4-5.0); Albumin/Globulin Ratio 1.1 (1.1-1.8); Anion Gap 9.7 mEq/L (5.0-15.0); Bilirubin Total 0.4 mg/dL (0.2-1.0); Globulin 3.2 g/dL (2.3-3.5); Magnesium 1.7 mg/dL (1.6-2.4); Potassium 3.7 mEq/L (3.5-5.1); Protein, Total 6.8 g/dL (6.4-8.2); Troponin High Sensitivity 13.1 pg/mL (<58.9)
[2024-12-20] MEDS: MAGNESIUM SULFATE 1 gm IVPB 1 GM/100 ML BAG IV ONE (19:07)
[2024-12-20] MEDS: POTASSIUM 25 MEQ EFFERV TAB PO ONE (19:08)
[2024-12-20 19:51] LABS: Platelet Estimate DECR; White Blood Cell Scan OK (OK)
[2024-12-20 19:52] LABS: Anisocytosis 1+; Blood Morphology Comment NOTED (NOT SEEN); Poikilocytosis 1+
--- NOTE | 2024-12-20 20:05 | RAD REPORT ---
Procedure: Chest Pa And Lat (2 Views) HISTORY: Abdominal pain COMPARISON: 2021 FINDINGS: The lungs appear clear of acute infiltrate. No significant pleural effusion noted. The heart is normal size. IMPRESSION: No acute abnormality is displayed.
[2024-12-20] MEDS: INSULIN REGULAR (HUMAN) 100 UNIT/ML SQ SCH (21:00)
[2024-12-20 21:07] LABS: Specific Gravity 1.014 (1.005-1.030); Sqamous Epithelial <5 /HPF (None Seen); Urine Bacteria <20 /HPF (<20); Urine Bilirubin NEGATIVE (Negative); Urine Blood Negative (Negative); Urine Clarity Turbid (Clear); Urine Color Yellow (Yellow); Urine Crystals Unidentified Few /HPF (None Seen); Urine Culture Reflex Order NOT NEEDED; Urine Glucose NEGATIVE (Negative); Urine Ketones NEGATIVE (Negative); Urine Microscopic Reflex YN ORDER UMIC; Urine Mucus Slight /HPF (None Seen); Urine Nitrite NEGATIVE (Negative); Urine Protein NEGATIVE (Negative); Urine RBC <5 /HPF (None Seen); Urine Urobilinogen Normal (Normal); Urine WBC <5 /HPF (<5); Urine WBC Clump Rare /HPF (None Seen)
[2024-12-20] MEDS ORDERED: ACETAMINOPHEN 500 MG TAB PO PRN (22:01)
[2024-12-20] MEDS ORDERED: ONDANSETRON 4 MG/2 ML VIAL IV PRN (22:03)
[2024-12-20] MEDS ORDERED: MORPHINE 2 MG/ML SYR IV PRN (22:03)
--- NOTE | 2024-12-20 22:19 | RAD REPORT ---
EXAMINATION: CT ABDOMEN AND PELVIS WITH CONTRAST CLINICAL INDICATION: Abdominal pain TECHNIQUE: CT abdomen and pelvis was performed, after the administration of 100 cc Isovue-300.. Sagit hugo and coronal reconstructions were obtained. One or more of the following dose reduction techniques were used: Automated exposure control, adjustment of the mA and kV according to patient si ze, and iterative reconstruction. Unless otherwise specified, incidental findings do not require dedicated imaging follow-up. [id number]. Oral contrast was not given which limits evaluation of bowel and appendix. COMPARISON: .2021 FINDINGS: Cholecystectomy. Liver, spleen, pancreas, adrenals and kidneys appear unremarkable. Small renal cysts No evidence of diverticulitis. Normal appendix. Hysterectomy. No adnexal mass. Atherosclerosis. Small hiatal hernia : IMPRESSION: No acute abnormality displayed
[2024-12-20] MEDS: METRONIDAZOLE 500mg IVPB 500 MG/100 ML BAG IV SCH (22:24)
[2024-12-21 02:02] VITALS: O2SAT 97
--- NOTE | 2024-12-21 07:08 | HP ---
Date of Admission: 12/20/2024 Chief Complaint: Stomach pain. History Of Present Illness: This is an 84-year-old pleasant female patient who was brought into [facility] today by caregiver. The patient called office today requesting appointment for stomach pain and w as evaluated, and subsequently admitted to the hospital. The patient says in last 1 week she has had abdominal pain about 3 different times, last time was today. She denies any fever, nausea, vomiting . No blood in urine or blood in stool. She has not had a good appetite today. Last bowel movement was today. After I evaluated her, decision was made to admit her to hospital for further evaluation and management of this problem. Allergies: NO KNOWN ALLERGIES. Medications: List reviewed. Review of Systems: GI: As mentioned above. Constitutional: As mentioned above. All other systems reviewed and negative. Past Medical History: Significant for TIA on November 21, 2019; type 2 diabetes mellitus; history of pul monary embolism in 2021; hypertension; mixed hyperlipidemia; gastroesophageal reflux disease; right b reast cancer; osteoarthritis at multiple sites; psoriasis; DVT of left leg, June 2022; osteopenia. Past Surgical History: Cataract surgery, hernia repair, and cholecystectomy. Family History: Father , had bladder cancer and COPD. Brother , had alcohol problem. Social History: Negative for smoking. Use of alcohol, rarely glass of wine. Physical Examination: Vital Signs: Blood pressure 132/78, pulse 77, respiratory rate 16, temperature 97.4. Weight 193 mary nds, height 65.5 inches. General: Awake, alert, oriented, not in distress. HEENT: Head atraumatic, normocephalic. Conjunctivae nonerythematous. Sclerae white. Mouth, no thr ush or edema noted. Ears/Nose, no mass, lesion, discharge noted. Neck: Supple. No JVD, lymph nodes, bruit, thyromegaly noted. Lungs: Bilateral good equal air entry. Clear to auscultation. No rhonchi. No rales. Heart: Normal heart sounds, no murmur or gallop. Abdomen: Soft. No rigidity or rebound tenderness. No hepatosplenomegaly. No bruit. Bowel sounds normoactive, but the patient does have guarding and tenderness in left upper quadrant and left lower quadrant. Extremities: No leg edema. No calf tenderness. Skin: No rash, ulcer, cellulitis. Lymphatics: No lymph node enlargement in neck, supraclavicular, infraclavicular region. Neuro: No focal neurological deficit. Chest: Unremarkable. External Genitalia: Deferred. Rectal: Deferred. Laboratory Data: WBC 3.8, hemoglobin 11.9, platelets . Sodium 139, potassium 3.7, chlorid e 103, bicarb 30, BUN 24, creatinine 1.21, glucose 140. Liver function test unremarkable. Urinalysi s: . Chest x-ray: No acute cardiopulmonary changes. CAT scan of the abdomen and pelvis: . Impression: 1. . 2. Hyperlipidemia. 3. Type 2 diabetes mellitus. 4. Hypertension. 5. Gastroesophageal reflux disease. 6. Right breast cancer. 7. Osteoarthritis, multiple sites. Plan: We will admit the patient to hospital for further evaluation and management of this problem. The patient will be admitted for observation. Empiric antibiotics, Levaquin and metronidazole were s tarted for possibility of diverticulitis problem. We will go ahead and give symptomatic treatment fo r pain, nausea, and vomiting in case if she has any such problem overnight. No need for any further intervention for hypertension. For hyperlipidemia, continue her statin therapy. No need for further intervention. Diabetes will be managed with sliding scale insulin and will not require any further intervention at this time. We will go ahead and give DVT prophylaxis per order. Total time spent today, 60 minutes including evaluation and management in the office, arrangements fo r hospital admission, and performing today's evaluation and management. GUSTAVO/MODL Voice ID: [id number]
[2024-12-21 08:32] VITALS: BP 113/56; TEMP 97.4
[2024-12-21] MEDS: GABAPENTIN 300 MG CAP PO SCH (09:00)
[2024-12-21] MEDS ORDERED: ATORVASTATIN 80 MG TAB PO SCH (21:00)
[2024-12-21] MEDS ORDERED: FAMOTIDINE 20 MG TAB PO SCH (21:00)
--- NOTE | 2024-12-21 21:19 | DS ---
Date of Discharge: 12/21/2024 Disposition: Discharged to go home. Physical Examination: HEENT: Unremarkable. Lungs: Clear to auscultation. Heart: Sounds normal. Abdomen: Soft. Bowel sounds normal. No guarding, rigidity, tenderness, distention. Extremities: No leg edema. Laboratory Data: Reviewed. Other labs , . Hospital Course: This is an 84-year-old pleasant female patient who came into office yesterday with complaints of abdominal pain. Please see dictated H and P for more information. After patient was e valuated at office, decision was made to admit her to the hospital for further evaluation and managem ent of this problem. After her admission to the hospital, further workup included routine blood work , which came back unremarkable and chest x-ray was unremarkable. CAT scan of abdomen and pelvis show ed evidence of diverticulosis and gallstones. No evidence of any gallbladder wall thickening. The p atient was started on empiric antibiotic Levaquin and metronidazole. This morning when I saw her, sh e was feeling better. Her abdominal pain has resolved. Yesterday, she had guarding and tenderness i n left upper and left lower quadrant of her abdomen which has completely resolved. When I examined h er today, decision was made to discharge her to go home with following discharge medications and inst ructions. Final Diagnoses: 1. Abdominal pain. 2. Possible acute diverticulitis. 3. . 4. . 5. . Discharge Medications And Instructions: 1. . 2. . 3. Total time spent 25 minutes. GUSTAVO/MODL Voice ID: [id number] Report ID: [id number]
== END 2024-12-21 09:16 | disposition home or self-care (01) ==
LOC: 2ND 16:21
PROVIDERS: ADMIT Internal Medicine; ATTEND Internal Medicine
DX: K57.90 Diverticulosis of intestine, part unspecified, without perforation or abscess without bleeding (principal); R10.9 Unspecified abdominal pain; E78.2 Mixed hyperlipidemia; E11.9 Type 2 diabetes mellitus without complications; I10 Essential (primary) hypertension; E78.5 Hyperlipidemia, unspecified; K21.9 Gastro-esophageal reflux disease without esophagitis; M19.90 Unspecified osteoarthritis, unspecified site; M85.80 Other specified disorders of bone density and structure, unspecified site; Z85.3 Personal history of malignant neoplasm of breast; Z86.73 Personal history of transient ischemic attack (TIA), and cerebral infarction without residual deficits; Z86.718 Personal history of other venous thrombosis and embolism; Z79.01 Long term (current) use of anticoagulants
CPT/HCPCS: 85025; 81001; 36415; 83735; 82947; 84484; 83690; 80053; 74177; 71046; Q9967; J3475; J7030; G0378; G0379

== ENCOUNTER 2024-12-23 21:04 | Emergency (ER) | payer OTHER ==
--- OUTSIDE RECORDS SUMMARY | 2024-12-23 21:08 | XMS REPORT | Clinical Summary ---
Author Name Unknown Organization [facility] [place] Address [address] [place] [address] Care Team Providers Care Clinical Psychology Professor Name Role Phone Gonsalo Gracia MD Unavailable [phone] Gonsalo Gracia MD Unavailable [phone] Mónica Joseph MD Primary Care Provider [phone] Shaan Kauffman MD Unavailable [phone] Derik Quintanilla MD Unavailable Ami Lira MD Unavailable + Real Nichols MD Unavailable [phone] SadieNuzhat Hill MD Unavailable [phone] Nuzhat Cuba MD Primary Care Provider + [phone] Allergies Active Allergy Reactions Criticality Noted Date [...] moderate pain. 20 tablet 2 11:33 AM [employer]IFICIAL [employer]OWER [employer] 09/11/20 22 Active vitamin B complex capsuleIndica tions:Periphe ral neuropathy Take 1 capsule by mouth daily. 30 capsule 1 09/25/19 23 Active alpha lipoic acid 600 mg capIndication s:Peripheral neuropathy Take 600 mg by mouth twice daily. 60 each 2 09/25/19 23 Active calcium carbonate (OS-FARIHA) 600 mg calcium (1,500 mg) tablet Take [...] daily. 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 This is considered provoked by cancer and cancer directed therapy. Duration of anticoagulation is 6 months. She will complete anticoagulation when her current Eliquis prescription runs out. 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 Cancer Staging:Clinical stage from 02/25/2016:Stage IA(Primary) - Signed by Mónica Joseph MD on 02/26/2016 Diabetes mellitus 01/16/2016 Encounters Date Type Department Care Team Description 12/16/2024 9:20 AM CDT Follow-Up MD [facility] in [place] - Breast Medical Oncology [address] [place] [address] Nuzhat Cuba MD Infiltrating duct carcinoma, NOS of breast, NOS <Female; Unspecified> (Primary Dx); Fatigue; Antineoplastic chemotherapy induced anemia; Nausea; Drug-induced polyneuropathy 12/16/2024 Travel 12/14/2024 Orders Only MD [facility] in [place] - Medical Oncology [address] [place] [id number] Luci Hightower APRN Infiltrating duct carcinoma, NOS of breast, NOS <Female; Unspecified> (Primary Dx) 11/04/2024 Specialty [facility] [address] [place] [address] Meño Ken, PharmD Refill Coordination Outreach - abemaciclib (VERZENIO) for Breast Cancer 10/19/2024 Refill MD [facility] in [facility] Breast Medical Oncology [address] [place] [address] [address] [place] [address] Nuzhat Cuba MD 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 10/13/2024 Specialty Pharmacy [facility] [address] [place] [address] Meño Ken, PharmD Initial Refill Managment Patient Education for Breast Cancer, Set up Initial Fill for Breast Cancer, Benefits Investigation for Breast Cancer, Benefits Investigation for Breast Cancer 10/12/2024 1:00 PM [employer] Follow-Up MD [facility] in [facility] Breast Medical Oncology [address] [place] [address] Nuzhat Cuba MD Infiltrating duct carcinoma, NOS of breast, NOS <Female; Unspecified> 10/12/2024 Specialty Pharmacy [facility] AMB RX SPEC ACB [address] [place] [address] Anna Marie, [facility] 10/12/2024 Travel 09/20/2024 Orders Only MD [facility] in [facility] Medical Oncology [address] [place] [address] Luci Hightower APRN Infiltrating duct carcinoma, NOS of breast, NOS <Female; Unspecified> (Primary Dx) 09/19/2024 Telephone MD [facility] in [facility] Breast Medical Oncology [address] [place] [address] Gely Loera, RN 08/01/2024 Refill MD [facility] in [facility] Breast Medical Oncology [address] [place] [address] [address] [place] [address] Nuzhat Cuba MD 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 07/06/2024 8:30 AM CDT Follow-Up MD [facility] in [place] - Radiation Oncology [address] [place] [address] [address] [place] [address] Maine Vitale MD Kumar, Savita, PA 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 07/06/2024 Travel 05/23/2024 Refill MD [facility] in [facility] Medical Oncology [address] [place] [address] [address] [place] [address] Gely Loera, RN 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 04/11/2024 Refill MD [facility] in [facility] Medical Oncology [address] [place] [address] [address] [place] [address] Luci Hightower APRN 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 03/25/2024 2:00 PM CDT Telephone MD [facility] in [facility] Oncology [address] [place] [address] [address] [place] [address] Nuzhat Cuba MD 03/16/2024 2:00 PM CDT Follow-Up MD [facility] in [facility] Oncology [address] [place] [address] [address] [place] [address] Luci Hightower APRN Nwosu-Iheme, Adaeze, MD 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 (Primary Dx); Antineoplastic chemotherapy induced anemia; Thrombocytopenia, not otherwise specified 03/16/2024 1:20 PM CDT Ancillary Procedure [facility] in [place] [address], [address] [place] [address] Luci Hightower APRN 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 03/16/2024 12:00 PM CDT Ancillary Procedure [facility] in [place] [address], [address] [place] [address] Luci Hightower APRN 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 03/16/2024 Travel 01/18/2024 Refill MD [facility] in [facility] Medical Oncology [address] [place] [address] [address] [place] [address] Nuzhat Cuba MD 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 01/13/2024 Refill MD [facility] in [facility] Medical Oncology [address] [place] [address] [address] [place] [address] Nuzhat Cuba MD 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 12/30/2023 9:40 AM CDT Follow-Up MD [facility] in [place] - Breast Medical Oncology [address] [place] [address] [address] [place] [address] Luci Hightower APRN 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 12/30/2023 Telephone MD [facility] in [place] - Breast Medical Oncology [address] [facility] [address] [place] [address] Diann Gan RN 12/30/2023 Travel after 12/24/2023 Immunizations Name Administration Dates Next Due Moderna SARS-CoV-2 Vaccination 07/15/2021,2020,12/17/2020 Surgical History Surgery Date Site/Laterality Comments PATELLA FRACTURE SURGERY CHOLECYSTECTOMY 09/14/2005 - 09/13/2006 lap dominic with hernia repair LAPAROTOMY EXPLORATORY 09/14/1945 - 09/13/1946 abdominal injury-from glass injury HERNIA REPAIR 09/14/2005 - 09/13/2006 UMbilical HERNIA REPAIR Abdominal, TOTAL ABDOMINAL HYSTERECTOMY W/ BILATERAL SALPINGOOPHORECTOMY 09/14/2015 - 09/13/2016 BREAST BIOPSY HYSTERECTOMY WA MASTECTOMY PARTIAL 09/11/2022 Breast/Right Procedure: SEGMENTAL MASTECTOMY - OTHER; Surgeon: Ami Lira MD; Location: MAIN OR; Service: BREAST WA AXILLARY LYMPHADENECTOMY COMPLETE 09/11/2022 Axilla/Right Procedure: AXILLARY LYMPHADENECTOMY; Surgeon: Ami Lira MD; Location: MAIN OR; Service: BREAST WA RMVL VAS[facility]Z CTR VAD W/SUBQ 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 CTR/PRPH INSJ 09/11/2022 Chest/Left Procedure: PORT-A-CATH REMOVAL; [...] 8:00 AM CDT Ancillary Procedure MD [facility] [place] [address] [facility] [address] [place] [address] Luci Hightower, CHIEF ULTRASOUND TECHNOLOGIST [address] [place] [address] [email or web address] 03/15/2025 8:45 AM CDT Ancillary Procedure MD [facility] [place] [address] [facility] [address] [place] [address] Luci Hightower APRN [address] [place], [place] [id number] [email or web address] 03/15/2025 11:40 AM CDT Follow-Up MD [facility] in [place] - Breast Medical Oncology [address] [facility] [address] [place] [address] Nuzhat Cuba MD [address] [place] [address] [email or web address] Health Maintenance Due Date Last Done Comments Pneumococcal Vaccine: 50+ Ye ars (1 of 2 - PCV) 1959 COVID-19 Vaccine ( season) 2024 07/15/2021, 01/14/2021, 12/17/2020 Influenza Vaccine (#1) 2024 Medical Devices Implanted Type Area Assistant Director Of Residence Life Device Identifier Shelf Expiration Date Model / Serial / Lot Margarita Arriaza 8fr - [id number] Implanted:Qty: 1 on 12/16/2021 at [facility] Explanted:09/11 (Quantity not on file) [place] PERIPHERAL VASCULAR 12/12/2022 [id number] / [id number] / [id number] Procedures Procedure Name Priority Date/Time Associated Diagnosis Comments .CBC Routine 12/16/2024 9:04 AM CDT Infiltrating duct carcinoma, NOS of breast, NOS <Female; Unspecified> COMPLETE BLOOD COUNT W/ DIFFERENTIAL Routine 12/16/2024 9:04 AM CDT Infiltrating duct carcinoma, NOS of breast, NOS <Female; Unspecified> .CBC Routine 10/12/2024 11:43 AM ART[employer]IAL [employer]OWER [employer]ER Infiltrating duct carcinoma, NOS of breast, NOS <Female; Unspecified> COMPLETE BLOOD COUNT W/ DIFFERENTIAL Routine 10/12/2024 11:43 AM [employer]IAL [employer]OWER [employer]KER Infiltrating duct carcinoma, NOS of breast, NOS <Female; Unspecified> COMPREHENSIVE METABOLIC PANEL Routine 10/12/2024 11:43 AM [employer]OWER [employer]ER Infiltrating duct carcinoma, NOS of breast, NOS [...] outer quadrant of right female breast after 12/24/2023 Results * (ABNORMAL) .CBC (12/16/2024 9:04 AM [...] - 0.09 K/uL 12/16/2024 9:07 AM CDT LEE Blood Peripheral blood specimen / Unknown Venipuncture / Unknown 12/16/2024 9:04 AM CDT 12/16/2024 9:04 AM CDT us Luci Hightower APRN LAB BLOOD ORDERABLES Final Resul t [facility] [address] [facility], [address] [place] [address] * (ABNORMAL) Comprehensive Metabolic Panel (10/12/2024 11:43 AM ARTIFICIAL FLOWER [employer]KER) Only the most recent of3 resultswithin the time period is included. Bilirubin Total 0.3 0.0 - 1.2 mg/dL 10/12/2024 12:09 PM [facility] Comment:Indocyanine Green (I CG) may cause falsely elevated bilirubin results. Total and direct bilirubin must not be measured from samples containing indocyanine green. False elevation of total bilirubin can be seen in patients with IgG concentrations above 28 g/L. eGFR 54(L) >=60 mL/min/1. 73 sq. m 10/12/2024 12:09 PM [facility] Comment: The eGFRcr is calculated [...] 6.4 - 8.3 gm/dL 10/12/2024 12:09 PM [employer] [place] Calcium Level Total 10.1 8.2 - 10.2 mg/dL 10/12/2024 12:09 PM [employer] [place] Alkaline Phosphatase 84 35 - 104 U/L 10/12/2024 12:09 PM [employer] [place] Albumin Level 3.9 3.5 - 5.2 gm/dL 10/12/2024 12:09 PM [employer] [place] AST 16 <=32 U/L 10/12/2024 12:09 PM [employer] [place] ALT 12 <=33 U/L 10/12/2024 12:09 PM [employer] [place] Sodium Level 139 136 - 145 mmol/L 10/12/2024 12:09 PM [employer] [place] Potassium Level 3.9 3.4 - 4.5 mmol/L 10/12/2024 12:09 PM [employer] [place] Chloride 102 98 - 107 mmol/L 10/12/2024 12:09 PM [employer] [place] CO2 26 22 - 29 mmol/L 10/12/2024 12:09 PM [employer] [place] Anion Gap 11 4 - 14 mmol/L 10/12/2024 12:09 PM [employer] [place] Creatinine 1.03(H) 0.51 - 0.95 mg/dL 10/12/2024 12:09 PM [employer] [place] BUN 17 6 - 23 mg/dL 10/12/2024 12:09 PM [employer] [place] Glucose Level 230(H) 70 - 99 mg/dL 10/12/2024 12:09 PM [employer] [place] Comment: Effective 04/09/16, the glucose reference intervals have been updated based on [place] [employer] guidelines (Standards of Medical Care [...] Unknown Venipuncture / Unknown 10/12/2024 11:43 AM [employer]IAL [employer]OWER [employer]ER 10/12/2024 11:47 AM [employer]OWER [employer]KER us Luci Johansendeshawn CHIEF ULTRASOUND TECHNOLOGIST LAB BLOOD ORDERABLES Final Resul t GUALBERTO [facility] [address] [facility], [address] [place] [address] * Mammography Digital Diagnostic Bilateral with Joe [...] at an outside location on 01/02/2022, at [facility] on 09/10/2022, 09/11/2022 and 02/24/2023, and at [facility] 11/20/2021 and 08/19/2022. FINDINGS: The breasts [...] the left breast. Tomosynthesis performed in and [facility] projections. Procedure Note Maria T Corral MD - 03/16/2024 CLINICAL INDICATION: Patient is a 83 year old female and is seen for history of breast cancer MAMMO DIGITAL DIAGNOSTIC BILATERAL W JOE Digital Mammogram evaluated with Computer Aided Detection (CAD). COMPARISON: The present examination has been compared to prior imaging studiesperformed at an outside location on 01/02/2022, at [facility] on 09/10/2022, 09/11/2022 and 02/24/2023, and at [facility] on 11/20/2021 and 08/19/2022. FINDINGS: The breasts [...] is recommended. BI-RADS Category 2: Benign Finding(s) [facility] CHIEF ULTRASOUND TECHNOLOGIST IM MAMMOGRAPHY ORDERABLES Final Result * NM [...] Bone mineral density was obtained using Hologic [id number]-oke absorptiometry. Findings: The findings are provided in [...] present, and agree with the final report. [facility] DXA ORDERABLES Final Result * (ABNORMAL) Differential (03/16/2024 10:18 AM CDT) Total Cells 100 03/16/2024 12:51 PM CDT [facility] Manual Neutrophil % 43.0(L) 43.2 - 72.7 % 03/16/2024 12:51 PM CDT [facility] Comment:The Neutrophil count includes Bands. Manual Lymphocyte % 37.0 16.8 - 46.2 % 03/16/2024 12:51 PM CDT [facility] Manual Monocyte % 9.0 5.1 - 12.5 % 03/16/2024 12:51 PM CDT [facility] Manual Eosinophil % 6.0 0.4 - 6.3 % 03/16/2024 12:51 PM CDT [facility] Manual Basophil % 5.0(H) 0.2 - 1.4 % 03/16/2024 12:51 PM CDT [facility] Metamyelocyte % 12:51 PM CDT [facility] Comment:The Metamyelocyte co unt includes Myelocytes. Manual Neutrophil Abs 1.46(L) 1.95 - 7.25 K/uL 03/16/2024 12:51 PM CDT [facility] Manual Lymphocyte Abs 1.26 1.01 - 3.24 K/uL 03/16/2024 12:51 PM CDT [facility] Manual Monocyte Abs 0.31 0.24 - 0.85 K/uL 03/16/2024 12:51 PM CDT [facility] Manual Eosinophil Abs 0.20 0.02 - 0.50 K/uL 03/16/2024 12:51 PM CDT [facility] Manual Basophil Abs 0.17(H) 0.02 - 0.09 K/uL 03/16/2024 12:51 PM CDT [facility] RBC Morphology PRESENT 03/16/2024 12:51 PM CDT [facility] PLT Morph Normal Normal 03/16/2024 12:51 PM CDT [facility] Anisocytosis Present(A) (none) 03/16/2024 12:51 PM CDT [facility] Ovalocyte Present(A) (none) 03/16/2024 12:51 PM CDT [facility] Macrocyte Present(A) (none) 03/16/2024 12:51 PM CDT [facility] Blood Peripheral blood specimen / Unknown Venipuncture / Unknown 03/16/2024 10:18 AM CDT 03/16/2024 10:18 AM CDT us Luci Hightower CHIEF ULTRASOUND TECHNOLOGIST LAB BLOOD ORDERABLES Final Resul t [facility] [address] [address], [address][id number] [place] [address] after 12/24/2023 Insurance [employer] MEDICARE PPO A[employer] MEDICARE PPO Advance Directives * Full Code (Latest Code Status on File) Date Activated Date Inactivated Comments 09/11/2022 9:39 PM 09/12/2022 2:29 PM Care Teams Clinical Psychology Professor Relationship Specialty Start Date End Date Gonsalo Gracia MD [address] [place] [address] [email or web address] PCP - External Referring 01/03/16 Gonsalo Gracia MD [address] [place] [address] [email or web address] PCP - External Follow Up A 01/03/16 Mónica Joseph MD [address] [place] [address] [phone] [email or web address] PCP - General Gynecologic Medical Oncology 02/26/16 12/15/24 Shaan Kauffman MD [address] [place] [address] [phone] m PCP - External Follow Up B Internal Medicine 04/16/20 Nuzhat Cuba MD [address] [place] [phone] [email or web address] PCP - General Breast Medical Oncology 12/16/24 Derik Quintanilla MD [address] [place] [phone] [email or web address] Consulting Physician Internal Medicine 08/29/22 Ami Lira MD [address] [place] [phone] [email or web address] Consulting Physician Breast Surgery 11/22/21 Real Nichols MD [address] [place] [phone] [email or web address] Consulting Physician Pain Management 09/25/22 Nuzhat Cuba MD [address] [place] [phone] [email or web address] Consulting Physician Breast Medical Oncology 12/06/21
[2024-12-24 00:15] LABS: Absolute Monocytes 0.3 K/uL (0.1-1.3); Absolute Neutrophil 2.9 K/uL (1.8-8.0); Basophils % 0.7 % (0-1.3); Eosinophils % 0.7 % (0-4.4); Hematocrit 34.6 % (36.0-45.0); Hemoglobin 11.9 g/dL (12.0-15.0); Lymphocytes % 22.4 % (15.3-44.8); MCH 37.7 pg (27.0-35.0); MCHC 34.5 g/dL (32.0-36.0); MCV 109.2 fL (80-100); MPV 8.5 fL (7.6-11.3); Monocytes % 7.9 % (3.3-12.3); Neutrophils % 68.3 % (41.7-73.7); Nucleated Red Blood Cells % 0.1 % (0-0); Platelets 80 thou/uL (152-406); RBC Red Blood Cell Count 3.17 M/uL (3.86-4.86); Red Cell Distribution Width 17.1 % (12.1-15.2)
[2024-12-24 00:31] LABS: ALT/SGPT 19 U/L (13-56); AST/SGOT 13 U/L (15-37); Albumin 3.8 g/dL (3.4-5.0); Albumin/Globulin Ratio 1.2 (1.1-1.8); Alkaline Phosphatase 75 U/L (45-117); Anion Gap 10.4 mEq/L (5.0-15.0); BUN Blood Urea Nitrogen 15 mg/dL (7-18); Bicarbonate 27 mEq/L (21-32); Bilirubin Direct < 0.2 mg/dL (0-0.2); Bilirubin Indirect, Calculated 0.2 mg/dL (0.2-0.8); Bilirubin Total 0.4 mg/dL (0.2-1.0); Globulin 3.2 g/dL (2.3-3.5); Glomerular Filtration Rate 42 ml/min (=/>90); Glucose Level 177 mg/dL (74-106); Magnesium 1.5 mg/dL (1.6-2.4); NT PRO-BNP 287 pg/mL (<450); PT Prothrombin Time 12.8 SECONDS (10-13.0); Potassium 3.4 mEq/L (3.5-5.1); Protime INR 1.13; Sodium Level 132 mEq/L (136-145); Troponin High Sensitivity 11.3 pg/mL (<58.9)
[2024-12-24 01:28] LABS: Blood Morphology Comment NOTED (NOT SEEN); Macrocytosis 1+; Ovalocytes 2+; Platelet Estimate DECR; White Blood Cell Scan OK (OK)
--- NOTE | 2024-12-24 02:56 | EDPHYS ---
Physician Documentation [facility] Name: Deedee Smith Age: 84 yrs Sex: Female : 1940 Arrival Date: 12/23/2024 Time: 21:04 Bed 20 Private MD: ED Physician Mauricio Blackmon HPI: 12/24 00:25 This 84 yrs old Female presents to ER via Wheelchair with complaints of sp3 Weakness. 00:25 84-year-old female with history of breast cancer with active chemotherapy, sp3 hypertension, hyperlipidemia, diabetes now presents to the ED with chief complaint near syncope and generalized weakness. She also feels that she may "be dehydrated". She did recently start a new chemotherapy agent which she cannot recall the name. She is seen and treated at [facility]. She denies any headache, chest pain, shortness of breath, Ayan pain, vomiting, diarrhea, full syncope, fever, or any other signs or symptoms on ROS at this time.. Historical: - Allergies: 12/23 22:40 No Known Allergies; jj7 - PMHx: 22:40 Diabetes - IDDM; Hypercholesterolemia; Hypertension; left breast cancer; jj7 - PSHx: 22:40 Cholecystectomy; left chemo port; Total abdominal hysterectomy; jj7 - Immunization history:: Adult Immunizations up to date. - Infectious Disease History:: Denies. - Social history:: Smoking status: Patient denies any tobacco usage or history of. Patient uses alcohol, occasionally. Patient/guardian denies using street drugs, IV drugs. ROS: 12/24 00:26 Constitutional: Negative for fever, chills, and weight loss, Eyes: Negative for injury, sp3 pain, redness, and discharge, Neck: Negative for injury, pain, and swelling, Cardiovascular: Negative for chest pain, palpitations, and edema, Respiratory: Negative for shortness of breath, cough, wheezing, and pleuritic chest pain, Abdomen/GI: Negative for abdominal pain, nausea, vomiting, diarrhea, and constipation, Back: Negative for injury and pain, MS/Extremity: Negative for injury and deformity, Skin: Negative for injury, rash, and discoloration, Allergy/Immunology: Negative for hives, rash, and allergies, Endocrine: Negative for neck swelling, polydipsia, polyuria, polyphagia, and marked weight changes, All other systems are negative, Exam: 00:26 Constitutional: This is a well developed, well nourished patient who is awake, alert, sp3 and in no acute distress. Head/Face: Normocephalic, atraumatic. Eyes: Pupils equal round and reactive to light, extra-ocular motions intact. Lids and lashes normal. Conjunctiva and sclera are non-icteric and not injected. Cornea within normal limits. Periorbital areas with no swelling, redness, or edema. Neck: Trachea midline, no thyromegaly or masses palpated, and no cervical lymphadenopathy. Supple, full range of motion without nuchal rigidity, or vertebral point tenderness. No Meningismus. Chest/axilla: Normal chest wall appearance and motion. Nontender with no deformity. No lesions are appreciated. Respiratory: Lungs have equal breath sounds bilaterally, clear to auscultation and percussion. No rales, rhonchi or wheezes noted. No increased work of breathing, no retractions or nasal flaring. Abdomen/GI: Soft, non-tender, with normal bowel sounds. No distension or tympany. No guarding or rebound. No evidence of tenderness throughout. Back: No spinal tenderness. No costovertebral tenderness. Full range of motion. Skin: Warm, dry with normal turgor. Normal color with no rashes, no lesions, and no evidence of cellulitis. MS/ Extremity: Pulses equal, no cyanosis. Neurovascular intact. Full, normal range of motion. Neuro: Awake and alert, GCS 15, oriented to person, place, time, and situation. Cranial nerves II-XII grossly intact. Motor strength 5/5 in all extremities. Sensory grossly intact. Cerebellar exam normal. Normal gait. Psych: Awake, alert, with orientation to person, place and time. Behavior, mood, and affect are within normal limits. 00:26 Cardiovascular: Orthostatics positive as patient had near syncopal episode when standing., 02:47 ECG was reviewed by the Attending Physician. EKG demonstrates normal sinus rhythm at 72 sp3 bpm with normal intervals, normal QRS, normal axis, nonspecific diffuse ST/T changes without evidence of acute ischemia. Vital Signs: 12/23 22:40 BP 162 / 87; Pulse 85; Resp 16; Temp 98.3; Pulse Ox 100% on R/A; Weight 87.54 kg; jj7 Height 5 ft. 4 in. ; Pain 0/10; 23:30 BP 147 / 69; Pulse 79; Resp 17; Pulse Ox 98% ; j7 12/24 00:30 BP 141 / 67; Pulse 80; Resp 20; Pulse Ox 96% ; Pain 0/10; jj7 01:30 BP 141 / 63; Pulse 75; Resp 16; Pulse Ox 97% ; 7 02:30 BP 155 / 67; Pulse 76; Resp 17; Pulse Ox 96% ; 7 03:17 BP 140 / 65; Pulse 78; Resp 18; Pulse Ox 97% ; 7 04:13 BP 129 / 64; Pulse 77; Resp 20; Pulse Ox 99% ; Pain 0/10; 7 12/23 22:40 Body Mass Index 33.13 (87.54 kg, 162.56 cm) [facility] 12/23 22:40 Pain Scale: Adult [facility] 12/24 00:30 Pain Scale: Adult [facility] 04:13 Pain Scale: Adult [facility] MDM: 12/23 22:53 Medical Screening Exam initiated 3 12/24 00:30 Data reviewed: vital signs, nurses notes, lab test result(s), EKG, radiologic studies. sp3 00:32 ED course: 84-year-old female with PMH above on new recent chemotherapy now with near sp3 syncope and generalized weakness and orthostatic hypotension. Differential diagnosis includes dehydration, acute coronary syndrome, electrolyte abnormality, chemotherapy side effect, TIA/CVA spectrum, among others. Workup will include CT scan of the head, EKG, general labs and supportive care. IV fluids ordered as well. Disposition pending workup and patient course.. 02:54 ED course: I reviewed CT scan which demonstrates no significant abnormality on my read. sp3 Attending read still pending. Vital signs remain normal. Slight electrolyte abnormalities however no significant findings on labs. Patient would like to go home. We will safely discharge her as long as she can ambulate.. 12/23 23:47 Order name: Basic Metabolic Panel; Complete Time: 02:47 sp3 12/23 23:47 Order name: CBC with Diff; Complete Time: 02:47 sp3 12/23 23:47 Order name: LFT's; Complete Time: 02:47 sp3 12/23 23:47 Order name: Magnesium; Complete Time: 02:47 sp3 12/23 23:47 Order name: NT PRO-BNP; Complete Time: 02:47 sp3 12/23 23:47 Order name: PT-INR; Complete Time: 02:47 sp3 12/23 23:47 Order name: Troponin HS; Complete Time: 02:47 sp3 12/24 00:20 Order name: CBC Smear Scan; Complete Time: 02:47 EDMS 12/24 00:32 Order name: CT Head Brain wo Cont sp3 12/23 23:47 Order name: Cardiac monitoring; Complete Time: 01:06 sp3 12/23 23:47 Order name: EKG - Nurse/Tech; Complete Time: 01:06 sp3 12/23 23:47 Order name: IV Saline Lock; Complete Time: 01:06 sp3 12/23 23:47 Order name: Labs collected and sent; Complete Time: 01:06 sp3 12/23 23:47 Order name: O2 Per Protocol; Complete Time: 01:06 sp3 12/23 23:47 Order name: O2 Sat Monitoring; Complete Time: 01:06 sp3 12/23 23:48 Order name: Orthostatics; Complete Time: 01:06 sp3 Administered Medications: 03:13 Drug: NS 0.9% IV 500 ml IV at bolus once; to be given as a bolus over 30 minutes Route: jj7 IV; Rate: bolus; Site: right antecubital; 04:10 Follow up: IV Status: Completed infusion jj7 Disposition Summary: 12/24/24 02:55 Discharge Ordered Notes: Location: Home sp3 Condition: Stable sp3 Diagnosis - Near syncope, orthostatic hypotension, medication side effect sp3 Followup: sp3 - With: Private Physician - When: Upon discharge from the Emergency Department - Reason: Recheck today's complaints, Continuance of care Discharge Instructions: - Discharge Summary Sheet sp3 - Near-Syncope sp3 - Orthostatic Hypotension sp3 Forms: - Medication Reconciliation Form sp3 - Antibiotic Education sp3 - Prescription Opioid Use sp3 - Patient Portal Instructions sp3 - Leadership Thank You Letter sp3 Signatures: Dispatcher [employer] Mauricio Rees MD MD sp3 Lacho Meza RN RN jj7 Corrections: (The following items were deleted from the chart) 12/23 23:52 23:51 BASIC METABOLIC PANEL+C.LAB.BRZ ordered. EDMS EDMS 23:51 CBC+H.LAB.BRZ ordered. EDMS EDMS 23:51 HEPATIC FUNCTION+C.LAB.BRZ ordered. EDMS EDMS 23:51 MAGNESIUM+C.LAB.BRZ ordered. EDMS EDMS 23:51 PROBNP+C.LAB.BRZ ordered. EDMS EDMS 23:51 PROTIME (+INR)+COAG.LAB.BRZ ordered. EDMS EDMS 23:51 Troponin High Sensitivity+C.LAB.BRZ ordered. EDMS EDMS
--- NOTE | 2024-12-24 02:56 | ER ---
Nurse's Notes [facility] Name: Deedee Smith Age: 84 yrs Sex: Female : 1940 Arrival Date: 12/23/2024 Time: 21:04 Bed 20 Private MD: Diagnosis: Near syncope, orthostatic hypotension, medication side effect Presentation: 12/23 22:40 Chief complaint: Patient states: WAS JUST DISCHARGED FROM THE HOSPITAL THURSDAY FOR ABD jj7 PAIN. STATED THAT EVERY TIME SHE STANDS UP SHE GETS DIZZY AND FEELS FAINT. THEY JUST TOOK HER OFF OF GABAPENTIN AND STARTED HER ON CYMBALTA THURSDAY. Coronavirus screen: At this time, the client does not indicate any symptoms associated with coronavirus-19. Ebola Screen: No symptoms or risks identified at this time. Initial Sepsis Screen: Does the patient meet any 2 criteria? No. Patient's initial sepsis screen is negative. Does the patient have a suspected source of infection? No. Patient's initial sepsis screen is negative. Risk Assessment: Do you want to hurt yourself or someone else? Patient reports no desire to harm self or others. 22:40 Method Of Arrival: Wheelchair jj7 22:40 Acuity: SHAMEKA 3 jj7 Triage Assessment: 22:40 General: Appears in no apparent distress. comfortable. General: Behavior is calm, jj7 cooperative, appropriate for age. Pain: Denies pain. Neuro: No deficits noted. Level of Consciousness is awake, alert, obeys commands, Oriented to person, place, time, situation, Appropriate for age Speech is normal, Facial symmetry appears normal, Reports weakness FEELS FAINT WHENEVER SHE STANDS UP. Historical: - Allergies: 22:40 No Known Allergies; jj7 - PMHx: 22:40 Diabetes - IDDM; Hypercholesterolemia; Hypertension; left breast cancer; jj7 - PSHx: 22:40 Cholecystectomy; left chemo port; Total abdominal hysterectomy; jj7 - Immunization history:: Adult Immunizations up to date. - Infectious Disease History:: Denies. - Social history:: Smoking status: Patient denies any tobacco usage or history of. Patient uses alcohol, occasionally. Patient/guardian denies using street drugs, IV drugs. Screenin:40 Abuse screen: Denies threats or abuse. Nutritional screening: No deficits noted. jj7 Tuberculosis screening: No symptoms or risk factors identified. 22:40 [facility] ED Fall Risk Assessment (Adult) History of falling in the last 3 months, j including since admission Yes- single mechanical fall (1 pt) Confusion or Disorientation No (0 pts) Intoxicated or Sedated No (0 pts) Impaired Gait No (0 pts) Mobility Assist Device Used No (0 pt) Altered Elimination No (0 pt) Score/Fall Risk Level 0 - 2 = Low Risk Oriented to surroundings, Maintained a safe environment, Educated pt \T\ family on fall prevention, incl call for assistance when getting out of bed, Assessed \T\ reinforced patient's understanding of fall precautions. Assessment: 22:40 Reassessment: ASSUMED CARE OF PT. SEE TRIAGE ASSESSMENT. [facility] 12/24 00:30 Reassessment: Patient is alert, oriented x 3, equal unlabored respirations, skin 7 warm/dry/pink. 04:14 Reassessment: pt discharged, but waiting for her ride inside the room. [facility] Vital Signs: 12/23 22:40 BP 162 / 87; Pulse 85; Resp 16; Temp 98.3; Pulse Ox 100% on R/A; Weight 87.54 kg; j7 Height 5 ft. 4 in. ; Pain 0/10; 23:30 BP 147 / 69; Pulse 79; Resp 17; Pulse Ox 98% ; 7 12/24 00:30 BP 141 / 67; Pulse 80; Resp 20; Pulse Ox 96% ; Pain 0/10; j7 01:30 BP 141 / 63; Pulse 75; Resp 16; Pulse Ox 97% ; j7 02:30 BP 155 / 67; Pulse 76; Resp 17; Pulse Ox 96% ; j7 03:17 BP 140 / 65; Pulse 78; Resp 18; Pulse Ox 97% ; j7 04:13 BP 129 / 64; Pulse 77; Resp 20; Pulse Ox 99% ; Pain 0/10; 7 12/23 22:40 Body Mass Index 33.13 (87.54 kg, 162.56 cm) [facility] 12/23 22:40 Pain Scale: Adult j7 12/24 00:30 Pain Scale: Adult j 04:13 Pain Scale: Adult [facility] ED Course: 12/23 21:05 Patient arrived in ED. rg4 21:11 Mauricio Blackmon MD is Attending Physician. sp3 22:40 Arm band placed on right wrist. Patient placed in an exam room, on a stretcher. jj7 22:40 Patient has correct armband on for positive identification. Bed in low position. Call jj7 light in reach. Side rails up X2. Adult w/ patient. Provided Education on: USE OF CALL FERNANDEZ. Warm blanket given. 23:04 Lacho Meza, RN is Primary Nurse. jj7 23:15 Triage completed. jj7 23:30 Inserted saline lock: 20 gauge in right antecubital area, using aseptic technique. jj7 Blood collected. Flushed with 10 mL NS. 12/24 01:56 CT Head Brain wo Cont In Process Unspecified. EDMS 04:12 IV discontinued, intact, bleeding controlled, No redness/swelling at site. Pressure jj7 dressing applied. 04:12 No provider procedures requiring assistance completed. jj7 Administered Medications: 03:13 Drug: NS 0.9% IV 500 ml IV at bolus once; to be given as a bolus over 30 minutes Route: jj7 IV; Rate: bolus; Site: right antecubital; 04:10 Follow up: IV Status: Completed infusion jj7 Medication: 12/23 22:40 VIS not applicable for this client. jj7 Outcome: 12/24 02:55 Discharge ordered by . sp3 04:11 Discharged to home via wheelchair, jj7 04:11 Condition: improved 04:11 Discharge instructions given to patient, friend, Instructed on discharge instructions, follow up and referral plans. Demonstrated understanding of instructions, follow-up care, 04:25 Patient left the ED. jj7 Signatures: Dispatcher [employer] EDMS Lashonda Mnuiz rg4 Mauricio Blackmon MD MD [facility] Lacho Meza, RN RN jj7
[2024-12-24] MEDS ORDERED: NA CHLORIDE 0.9% 500 ML ONE (03:08)
[2024-12-24 04:36] VITALS: TEMP 98.3
[2024-12-24 04:46] VITALS: BP 129/64; O2SAT 99
--- NOTE | 2024-12-24 06:43 | RAD REPORT ---
EXAM DESCRIPTION: CT of the head without contrast CLINICAL HISTORY: SYNCOPE COMPARISON: 11/21/2019 TECHNIQUE: Axial CT of the head obtained from the skull apex to the skull base without contrast. This exam was performed according to our departmental dose-optimization program, which includes automated exposure control, adjustment of the mA and/or kV according to patient size and/or use of it erative reconstruction technique. FINDINGS: No acute intracranial hemorrhage identified. No mass, mass effect, shift of the midline, abnormal ext ra-axial fluid collection or CT evidence of acute ischemic change identified. The ventricular system and sulcal spaces are mildly enlarged compatible with mild cerebral atrophy. Confluent areas of hypodensity throughout the supratentorial white matter are nonspecific and may be related to chronic small vessel ischemic change. The visualized paranasal sinuses and the mastoids are clear. No skull fracture identified. Visualiz ed orbits and globes are unremarkable. Atherosclerotic calcification of the intracranial internal carotid arteries. IMPRESSION: 1. No acute intracranial abnormality by CT criteria. Electronically signed by: Jak Mcdaniel DO 12/24/2024 03:58 AM CDT 4ZDM Due to temporary technical issues with the PACS/Liquipel reporting system, reports are being fady d by the in-house radiologist without review as a courtesy to ensure prompt reporting the interpreting radiologist is fully responsible for the content of the report. Transcribed Date/Time: 12/24/2024 6:43 AM
--- NOTE | 2024-12-26 10:54 | EKG ---
Test Date: 2024-12-24 Test Time: 00:54:57 Plush Cutter: JINNY MEASUREMENT RESULTS: Intervals: Rate: 72 CO: 172 QRSD: 104 QT: 400 QTc: 438 Dora: P: 47 CO: 172 QRS: -8 T: 102 INTERPRETIVE STATEMENTS: Normal sinus rhythm Nonspecific T wave abnormality Abnormal ECG Compared to ECG 03/10/2022 13:42:08 T-wave abnormality now present Electronically Signed On 12-26-24 10:49:09 CDT by Geovany Trivedi
== END 2024-12-24 04:25 | disposition home or self-care (01) ==
LOC: ER 21:04
DX: I95.1 Orthostatic hypotension (principal); T45.1X5A Adverse effect of antineoplastic and immunosuppressive drugs, initial encounter; C50.912 Malignant neoplasm of unspecified site of left female breast
CPT/HCPCS: 93005; 85025; 80048; 36415; 83735; 85610; 80076; 84484; 83880; 70450; 96360; 99284; J7040